=== PATIENT | female | born 1940 | race Caucasian/White ===

== ENCOUNTER 2020-07-22 16:23 | Inpatient (IN) | payer MEDICARE, MEDICAID, SELFPAY ==
[2020-07-22] VITALS (11 sets, daily range): BP systolic 157–176; BP diastolic 68–88; PULSE 78–97; RESP 16–25; TEMP 36–36.4; O2SAT 94–100; BMI 29.4
--- NOTE | ~2020-07-22 | CT_ITS ---
EXAMINATION: CT abdomen pelvis w con EXAM DATE: 07/22/2020 18:30 INDICATION: Abdominal pain. Low hemoglobin. Nausea and diarrhea. Airspace disease. TECHNIQUE: Spiral CT of the abdomen and pelvis was performed following intravenous injection of 100 m L Omnipaque 350. Axial, coronal and sagittal images were reviewed. The dose-length product (DLP) fo r this examination was 470.39 mGy-cm. The exposure was tailored according to patient size (auto mA e xposure control), and iterative reconstruction (ASIR) was used as additional dose reduction technique . There is no prior study for comparison. FINDINGS: Lung bases demonstrate linear bibasilar atelectasis and scattered small nodules, some appea r to be in tree-in-bud pattern. Largest isolated pleural-based nodule measures 6 mm. This does raise possibility of pulmonary metastatic disease. Scattered liver cysts, largest in the left liver lobe m easuring 4.6 cm. Gallbladder is unremarkable. No biliary obstruction. Spleen, adrenal glands, pancr eas are unremarkable. Portal and splenic veins are patent. Kidneys enhance symmetrically. There is no hydronephrosis. There are 2 punctate left calyceal stones. The uterus is not identified and has likely been surgical ly resected. Left ovarian cystic lesion measuring 2.3 x 4.2 cm, could be a cystic ovarian neoplasm bu t would most likely be benign histology. The bladder is unremarkable. There is no retroperitoneal o r pelvic lymphadenopathy. There is moderate scattered arteriosclerotic disease. Focal region of circumferential gastric antral wall thickening, could be peptic ulcer disease or canc er versus phasic peristalsis. There is rectosigmoid anastomosis site intact. The appendix is not spec ifically identified. There is mild colonic diverticulosis. There is no adjacent inflammatory change to suggest diverticulitis. There is moderate-sized gastroesophageal hiatal hernia. There is expecte d amount of colonic stool. No free intraperitoneal gas. Heart normal in size. There are small umbilical and moderate-sized left periumbilical fat-containing hernias. Another small er supraumbilical fat-containing hernia just left of midline. There may be an anterior abdominal wall mesh from prior hernia repair. Chronic burst fractures of T11 and T12 with up to 5 mm retropulsion at the T12 level. There are no osteoblastic or osteolytic lesions identified. IMPRESSION: 1. Gastric antral wall circumferential thickening, collapse suspicious for either peptic ulcer disea se or gastric cancer. Potentially could also be phasic peristalsis. Considering symptoms above, consi lexi EGD. 2. Some scattered basilar pulmonary nodules, postinfectious versus metastatic disease. Linear basila r atelectasis. A follow-up chest CT should be considered. 3. Small left ovarian cystic lesion could be cystic ovarian neoplasm but would most likely be benign histology. 4. Punctate left nephrolithiasis. 5. Abdominal wall fat-containing hernias. 6. Moderate gastroesophageal hiatal hernia. 7. Scattered colonic diverticulosis. 8. Surgical changes. 9. Chronic T11 and T12 burst fractures. Reviewed, dictated and finalized at location A. ALL INSTALLER IMPRESSION: 1. Gastric antral wall circumferential thickening, collapse suspicious for eit her peptic ulcer disease or gastric cancer. Potentially could also be phasic pe ristalsis. Considering symptoms above, consider EGD. 2. Some scattered basilar pulmonary nodules, postinfectious versus metastatic disease. Linear basilar atelectasis. A follow-up chest CT should be considered. 3. Small left ovarian cystic lesion could be cystic ovarian neoplasm but would most likely be benign histology. 4. Punctate left nephrolithiasis. 5. Abdominal wall fat-conta
--- NOTE | ~2020-07-22 | XR_ITS ---
EXAMINATION: XR chest 1V portable EXAM DATE: 07/22/2020 17:53 INDICATION: Low hemoglobin levels, dark diarrhea stools. Nausea. TECHNIQUE: Portable AP frontal chest x-ray was obtained. Comparison is made to prior examination from 08/23/2015. FINDINGS: Linear right mid lung zone atelectasis. Suspect patchy bilateral ill-defined acute airspace disease, could be infection and/or edema. The cardiomediastinal silhouette is prominent but magnifie d on this AP technique. There is no pneumothorax suspected. There are no pleural effusions. There are mild bony degenerative changes. There is aortic arteriosclerosis. IMPRESSION: 1. Development of scattered bilateral ill-defined opacities, could be edema and/or infection. 2. Development of linear right midlung zone atelectasis. Reviewed, dictated and finalized at location A. [employer] IMPRESSION: 1. Development of scattered bilateral ill-defined opacities, could be edema an d/or infection. 2. Development of linear right midlung zone atelectasis.
--- NOTE | ~2020-07-22 | XR_ITS ---
EXAMINATION: XR chest 2V DATE: 07/25/2020 10:30 INDICATION: Pneumonia. TECHNIQUE: Frontal and lateral views of the chest were obtained. COMPARISON: Chest single view 07/22/2020, CT abdomen and pelvis 07/22/2020 FINDINGS: There are airspace opacities in the mid and lower lung zones. No pleural effusion or pneumo thorax. The heart size is normal. There is a moderate-sized hiatal hernia. IMPRESSION: 1. Airspace opacities in the mid and lower lung zones with interval improvement, consistent with pneu monia. 2. Moderate-sized hiatal hernia. Reviewed, dictated and finalized at location A. MANAGER IMPRESSION: 1. Airspace opacities in the mid and lower lung zones with interval improvement , consistent with pneumonia. 2. Moderate-sized hiatal hernia.
--- NOTE | 2020-07-22 16:33 | ECG_ITS ---
Measurements Intervals [place] Rate: 76 P: 14 AK: 159 QRS: -6 QRSD: 73 T: -7 QT: 349 QTc: 394 Interpretive Statements SINUS RHYTHM INFERIOR INFARCT, AGE INDETERMINATE BASELINE WANDER- I, II, AVR, AVL, AVF ABNORMAL ECG Electronically Signed On 07-23-2020 7:24:39 SALES MANAGEMENT TRAINEE by Mendoza Johnson D.O.
[2020-07-22 16:47] LABS: Basophils Percent Auto 0.4 % (0.2-1.2); Eosinophils Absolute Auto 0.1 K/mm3 (0-0.3); Eosinophils Percent Auto 2.1 % (0-4.4); Hematocrit 29.7 % (37.0-47.0); Hemoglobin 8.2 g/dL (12.0-15.0); Immature Granulocyte Absolute 0.01 K/mm3 (0.00-0.031); Immature Granulocyte Percent A 0.2 % (0-0.5); Lymphocytes Absolute Auto 1.54 K/mm3 (0.9-3.2); Lymphocytes Percent Auto 32.2 % (18.3-44.2); Mean Corpuscular HGB Conc 27.6 g/dl (32-36); Mean Corpuscular Hemoglobin 22.2 pg (26-34); Mean Corpuscular Volume 80.3 fl (80-100); Mean Platelet Volume 8.8 fl (7.4-10.4); Monocytes Absolute Auto 0.5 K/mm3 (0.1-0.6); Neutrophils Absolute Auto 2.6 K/mm3 (1.3-6.7); Neutrophils Percent Auto 55.1 % (45.5-73.1); Platelet Count Result 307 k/mm3 (150-375); Red Cell Distribution Width 15.7 % (11.5-14.5); White Blood Count 4.8 K/mm3 (4.5-10.0)
[2020-07-22 16:53] LABS: Platelet Estimate Adequate (Adequate); Stomatocytes 1+ (NORMAL)
[2020-07-22 16:54] LABS: Hypochromasia 2+ (NORMAL); Ovalocytes 1+ (NORMAL)
[2020-07-22] MEDS: PANTOPRAZOLE SODIUM IV 40 MG VIAL IV PUSH (16:54)
[2020-07-22] MEDS: SODIUM CHLORIDE 0.9% IV 1,000 ML 999 ML IV CONT (16:54)
[2020-07-22 16:56] LABS: INR 0.9; Prothrombin Time 12.3 Seconds (11.1-14.7)
[2020-07-22 16:57] LABS: Partial Thromboplastin Time 28.1 SECONDS (22.3-36.8)
[2020-07-22 17:05] LABS: Alanine Aminotransferase 17 U/L (4-35); Albumin Level 3.9 g/dL (3.5-5.1); Alkaline Phosphatase 95 U/L (38-126); Aspartate Amino Transferase 22 U/L (14-36); Bilirubin,Total 0.2 mg/dL (0.2-1.3); Blood Urea Nitrogen 11 mg/dL (7-17); Calcium 8.9 mg/dL (8.4-10.2); Carbon Dioxide > 40 mmol/L (22-30); Chloride 92 mmol/L (98-107); Estimated CRCL calculation 80 ml/min; Estimated Glomerular Filt Rate > 60; Glucose 145 mg/dL (65-105); Potassium 3.9 mmol/L (3.4-5.0); Sodium 140 mmol/L (137-145)
[2020-07-22 17:07] LABS: Lactic Acid Reflex 1.5 mmol/L (0.7-2.1)
[2020-07-22 17:28] LABS: Base Excess ABG 11.3 mEq/l (+/-2.0); Carboxyhemoglobin 0.4 % THb (0-2.0); Fractional Inspired Oxygen 36 %; HCO3 ABG 38.7 mEq/l (22.0-26.0); Methemoglobin ABG 0.1 %THb (0-1.5); Oxygen Content ABG 11.8 %vol (16.0-22.0); Oxyhemoglobin 97.9 % THb (90.0-100.0); PO2 ABG 172.7 mmHg (80.0-100.0); Reduced Hemoglobin 1.6 %THb (0-5.0); Total Hemoglobin 8.3 g/dL (12.0-18.0); pH ABG 7.343 (7.350-7.450)
[2020-07-22 17:28] LABS: CRP 1.9 mg/dL (<1.0)
[2020-07-22 17:29] LABS: PCO2 ABG 72.9 mmHg (35.0-45.0)
[2020-07-22 17:30] LABS: Device NASAL CANNULA; Modified Allen's Test Pass; Site Drawn LEFT RADIAL
--- NOTE | 2020-07-22 18:02 | ED.GENADULT ---
HPI - General Adult General Chief complaint: GI Bleed Stated complaint: dark stools, nausea Time Seen by Provider: 07/22/20 16:32 Source: patient Mode of arrival: ambulatory Limitations: no limitations History of Present Illness HPI narrative: Patient is a 79-year-old female who presents to emergency department for evaluation of abdominal discomfort and dark stools over the course of the last several days patient notes aching pain that is periumbilical in nature worse with activity movement patient denies anticoagulant use patient also notes that she recently was told she has pneumonia notes that she had a negative Covid test in June. Patient is followed by pulmonology primary care. Patient notes she is currently on amoxicillin for her pneumonia Related Data Allergies Allergy/AdvReac Type Severity Reaction Status Date / Time duloxetine Allergy Intermediate Cough Verified 07/22/20 16:53 quinapril AdvReac Unknown UNKNOWN Verified 07/22/20 16:53 Review of Systems Review of Systems: All systems reviewed & are unremarkable except as noted in HPI and below PMFSH Past Medical History Medical History (Updated 07/22/20 @ 19:32 by Jose F Jackson PA-C) COPD (chronic obstructive pulmonary disease) Gastroesophageal reflux disease Obesity Surgical History Surgical History (Updated 07/22/20 @ 18:06 by Jose F Jackson PA-C) Hx of colonoscopy Social History Social History (Updated 07/22/20 @ 18:06 by Jose F Jackson PA-C) Smoking status: Former smoker Alcohol intake: never Substance use: unknown Exam Narrative: Exam Narrative: GENERAL: Ill-appearing, obese, and in no acute distress. HEAD: Normocephalic, atraumatic. EYES: PERRLA and EOMI. ENT: Nares clear, no rhinorrhea or epistaxis. Mucous membranes moist. CHEST: Clear to auscultation. No respiratory distress. No wheezes rales or rhonchi HEART: Regular rate and rhythm. No murmur heard. Normal peripheral pulses. ABDOMEN: Soft, periumbilical tenderness,distended, melanotic appearing stool guaiac negative EXTREMITIES: Normal range of motion. No edema. SKIN: Warm, dry, no rash. NEURO: No focal deficits. Alert and oriented x3. Cranial nerves II through XII grossly intact PSYCH: Normal mood and affect. Course Course Emergency Course: Patient presented with concern for peptic ulcer will be placed in hospital for further evaluation of this concern hemodynamically stable patient will be evaluated by gastroenterology for consideration of upper endoscopic he will be kept n.p.o.. Patient had guaiac negative stool but could still be gastric ulcer is seen on CAT scan imaging patient also was found to be hypercarbic will be given a short trial of BiPAP and will also be tested for Covid given the chest x-ray findings even though she notes she has had these findings for some time with a negative Covid test Consultations Consultation #1: Discussed case with Dr. Cordero marine superintendent with plans for upper endoscopy Discussed case with hospitalist Dr. Baumann who is agreed to accept the patient and would like to continue her oral antibiotic for her pneumonia Date: 07/22/20 Time: 19:24 Vital Signs Vital signs: Vital Signs Temperature 97.2 F L 07/22/20 16:33 Pulse Rate 94 07/22/20 16:33 Respiratory Rate 18 07/22/20 16:33 Blood Pressure 170/88 H 07/22/20 16:33 Pulse Oximetry 100 07/22/20 16:33 Temperature 97.2 F L 07/22/20 16:33 Pulse Rate 85 07/22/20 18:47 Respiratory Rate 23 H 07/22/20 18:47 Blood Pressure 170/88 H 07/22/20 16:33 Pulse Oximetry 98 07/22/20 18:47 Medical Decision Making [facility] Narrative Medical decision making narrative: Patient in the room hemodynamically stable resting comfortably on BiPAP at this time will be placed in hospital for likely upper endoscopy in the morning patient will be tested for Covid patient is afebrile nontoxic-appearing no distress at this time is aware of the findings and agrees to stay in hospit
[2020-07-22 18:45] LABS: NT Pro B Type Natriuretic Pept 354 PG/ML (5-100)
--- NOTE | 2020-07-22 19:40 | PC.NURSE ---
with any updates, notify efrain. [phone]
--- NOTE | 2020-07-22 19:44 | PM.IMHP ---
H&P: HPI History of Present Illness Date/Time: 07/22/20 19:44 Chief Complaint: Low H/H with black stools. Narrative: This is a pleasant 79-year-old female with known COPD, GERD, and chronic respiratory failure normally on 4 L of oxygen at home who was sent to the emergency room for evaluation by her special events planner after she was found to have a low H&H, dark stools for the past 5 days, and pneumonia on her chest x-ray. The patient reports that she has been on Augmentin for pneumonia although over the past few days she has had a productive cough of grayish sputum. She denies any worsening shortness breath. She also denies any recent fevers, chills, nausea, vomiting, dizziness, lightheadedness, syncope, chest pain, dysuria, hematuria, lower extremity swelling, or lower extremity pain. She does however report mild epigastric discomfort as well as dark black stools. She denies any bright red rectal bleeding. She is normally on aspirin and is not on any anticoagulants. She has a history of a previous GI bleed in the distant past which was attributed to peptic ulcer disease. She has also had endoscopy performed many years ago. she was tested for COVID-19 approximately 2 weeks ago which was negative. The patient was evaluated in the ER tonight and was found to be hypercapnic and almost compensated on her ABG. She was initiated on BiPAP. The patient was also swabbed for COVID-19 in the ER tonight. Chest x-ray demonstrated scattered bilateral ill-defined opacities. CT abdomen pelvis revealed gastric antral wall circumferential thickening, collapse suspicious for either peptic ulcer disease or gastric cancer. ER provider has consulted client services assistant. Review of Systems Review of Systems: All systems reviewed & are unremarkable except as noted in HPI and below PMFSH Past Medical History Medical History (Updated 07/23/20 @ 06:16 by Altaf Baumann MD) COPD (chronic obstructive pulmonary disease) Gastroesophageal reflux disease Obesity Surgical History Surgical History (Updated 07/22/20 @ 19:49 by Altaf Baumann MD) H/O: hysterectomy Hx of colonoscopy Social History Social History Smoking packs per day: 10 Smoking cigarettes per day: 200.0 Years smoked: 46 Smoking pack-years: 460.00 Smoking status: Former smoker Alcohol intake: never Substance use: never Spiritual care concerns: No Comments family Medical history is reviewed and noncontributory. Meds Home Medications and Allergies Home Medications Medication Instructions Recorded Confirmed Type albuterol sulfate 2 puff INHALATION PRN PRN 07/22/20 07/23/20 History amitriptyline 25 mg PO HS 07/22/20 07/23/20 History amoxicillin-pot clavulanate 1 tablet PO Q12H 07/22/20 07/23/20 History azithromycin 250 mg PO DAILY 07/22/20 07/23/20 History diclofenac sodium 75 mg PO BID 07/22/20 07/23/20 History metoprolol succinate 100 mg PO DAILY 07/22/20 07/23/20 History montelukast 10 mg PO DAILY 07/22/20 07/23/20 History omeprazole 40 mg PO DAILY 07/22/20 07/23/20 History oxycodone-acetaminophen 1 tablet PO Q12H 07/22/20 07/23/20 History tiotropium bromide [Spiriva 2 puff INHALATION DAILY 07/22/20 07/23/20 History Respimat] aspirin 81 mg PO DAILY 07/23/20 07/23/20 History clonazepam 1 mg PO HS 07/23/20 07/23/20 History fluticasone propion-salmeterol 1 inh INHALATION DAILY 07/23/20 07/23/20 History [Advair Diskus] Allergies Allergy/AdvReac Type Severity Reaction Status Date / Time duloxetine Allergy Intermediate Cough Verified 07/22/20 16:53 quinapril AdvReac Unknown UNKNOWN Verified 07/22/20 16:53 Vital Signs Vital Signs - 24 hr 07/22/20 16:33 07/22/20 18:47 Temperature 36.2 C L Pulse Rate 94 85 Respiratory Rate 18 23 H Blood Pressure 170/88 H Pulse Oximetry 100 98 Exam Const: General: cooperative, alert, awake, tired appearing, uncomfortable and other ( Curr
--- NOTE | 2020-07-22 19:55 | PC.NURSE ---
Patient has removed her BiPap and is no on oxygen at 4 liters by nasal cannula
[2020-07-22] MEDS: methylPREDNISolone SOD SUCC 125 MG VIAL 80 MG IV PUSH (20:08)
[2020-07-22] MEDS: ALBUTEROL SULFATE (*SP) INHALER 1 PUFF (20:17)
[2020-07-22 20:29] LABS: Hematocrit 27.8 % (37.0-47.0); Hemoglobin 7.7 g/dL (12.0-15.0)
[2020-07-22 21:08] LABS: Alveolar/Arterial O2 Gradient 10.7 mmHg; Base Excess ABG 12.1 mEq/l (+/-2.0); Fractional Inspired Oxygen 36 %; HCO3 ABG 40.5 mEq/l (22.0-26.0); Oxygen Content ABG 12.8 %vol (16.0-22.0); Oxygen Saturation ABG 98.6 % (95.0-100.0); Oxyhemoglobin 97.4 % THb (90.0-100.0); PO2 ABG 150.3 mmHg (80.0-100.0); PO2 FiO2 Ratio Arterial Blood 4.18 %; Total Hemoglobin 9.1 g/dL (12.0-18.0); pH ABG 7.309 (7.350-7.450)
[2020-07-22 21:09] LABS: Modified Allen's Test Pass; PCO2 ABG 82.5 mmHg (35.0-45.0); Site Drawn RIGHT RADIAL
[2020-07-23] VITALS (14 sets, daily range): BP systolic 128–166; BP diastolic 60–93; PULSE 55–114; RESP 18–20; TEMP 36–37.3; O2SAT 94–100
[2020-07-23] MEDS: SODIUM CHLORIDE 0.9% IV 1,000 ML 75 ML IV CONT ×2 (01:00→15:53)
[2020-07-23] MEDS: ALBUTEROL SULFATE (*SP) AEROSOL 1 PUFF 2 PUFF INHALATION ×4 (01:14→20:45)
[2020-07-23 01:52] LABS: Device NASAL CANNULA
[2020-07-23 02:07] LABS: Hematocrit 30.4 % (37.0-47.0); Hemoglobin 8.7 g/dL (12.0-15.0)
[2020-07-23 09:21] LABS: Anion Gap 8 mmol/L (8-16); Blood Urea Nitrogen 7 mg/dL (7-17); Calcium 8.9 mg/dL (8.4-10.2); Carbon Dioxide 32 mmol/L (22-30); Chloride 95 mmol/L (98-107); Estimated CRCL calculation 104 ml/min; Estimated Glomerular Filt Rate > 60; Glucose 123 mg/dL (65-105); Potassium 3.8 mmol/L (3.4-5.0); Sodium 135 mmol/L (137-145)
[2020-07-23 09:47] LABS: Basophils Percent Auto 0.2 % (0.2-1.2); Hematocrit 32.3 % (37.0-47.0); Hemoglobin 9.1 g/dL (12.0-15.0); Immature Granulocyte Absolute 0.02 K/mm3 (0.00-0.031); Immature Granulocyte Percent A 0.3 % (0-0.5); Lymphocytes Absolute Auto 1.25 K/mm3 (0.9-3.2); Lymphocytes Percent Auto 19.6 % (18.3-44.2); Mean Corpuscular HGB Conc 28.2 g/dl (32-36); Mean Corpuscular Hemoglobin 22.4 pg (26-34); Mean Corpuscular Volume 79.6 fl (80-100); Mean Platelet Volume 8.7 fl (7.4-10.4); Monocytes Absolute Auto 0.2 K/mm3 (0.1-0.6); Monocytes Percent Auto 3.8 % (2.6-8.5); Neutrophils Absolute Auto 4.9 K/mm3 (1.3-6.7); Neutrophils Percent Auto 76.1 % (45.5-73.1); Platelet Count Result 362 k/mm3 (150-375); Red Blood Count 4.06 M/mm3 (4.2-5.4); Red Cell Distribution Width 15.8 % (11.5-14.5); White Blood Count 6.4 K/mm3 (4.5-10.0)
[2020-07-23 10:26] LABS: Hypochromasia 1+ (NORMAL); Microcytosis 1+ (NORMAL); Platelet Estimate Adequate (Adequate)
--- NOTE | 2020-07-23 11:49 | WPDGICN ---
Assessment and Plan Assessment and plan (1) Upper GI bleed: Code(s): K92.2 - Gastrointestinal hemorrhage, unspecified Status: Acute Assessment and Plan: will proceed with egd, assess if ulcer, gastritis or even malignancy (reviewed ct scan) continue to monitor h/h and already on iv protonix (2) Melena: Code(s): K92.1 - Melena Status: Acute Assessment and Plan: supportive care, iv protonix and egd tomorrow discontinue nsaid's (3) Abnormal CT scan, stomach: Code(s): R93.3 - Abnormal findings on diagnostic imaging of other parts of digestive tract Status: Acute (4) Acute and chronic respiratory failure with hypercapnia: Code(s): J96.22 - Acute and chronic respiratory failure with hypercapnia Status: Acute Assessment and Plan: by medical team (5) Pneumonia: Qualifiers: Laterality: bilateral Lung location: unspecified part of lung Pneumonia type: due to unspecified organism Qualified Code(s): J18.9 - Pneumonia, unspecified organism Code(s): J18.9 - Pneumonia, unspecified organism Status: Acute Assessment and Plan: on treatment pending repeat covid test, on isolation for now (6) COPD (chronic obstructive pulmonary disease): Qualifiers: COPD type: unspecified COPD Qualified Code(s): J44.9 - Chronic obstructive pulmonary disease, unspecified Code(s): J44.9 - Chronic obstructive pulmonary disease, unspecified Status: Chronic (7) Gastroesophageal reflux disease: Qualifiers: Esophagitis presence: esophagitis presence not specified Qualified Code(s): K21.9 - Gastro-esophageal reflux disease without esophagitis Code(s): K21.9 - Gastro-esophageal reflux disease without esophagitis Status: Chronic (8) Obesity: Code(s): E66.9 - Obesity, unspecified Status: Inactive GI Consult Note Consult date/time: 07/23/20 11:49 Reason for consult: gib, melena HPI: Phoebe Hillman is a 79 year old female with history COPD (former smoker but many years ago), GERD on omeprazole, and chronic respiratory failure using oxygen at home. Few days ago she was diagnosed with pneumonia for which she has been on augmentin, also had follow up with her doctor recently who noted low H&H and abnormal chest x-ray (apparently done at [place]), COVID-19 about 2 weeks ago negative. Patient has been having upper abdominal discomfort with dark stools last 5-6 days, using omeprazole for years (home med also noted diclofenac bid) and remembers having EGD but probably more than 20 years ago, she also had several colonoscopies every 5 years but last one over 7 years ago. She came to ER after her doctor advised to come in because anemia, chest x-ray demonstrated scattered bilateral ill-defined opacities. CT abdomen pelvis revealed gastric antral wall circumferential thickening, collapse suspicious for either peptic ulcer disease or gastric cancer and started on iv protonix. Hb 7.7-8.2, BUN normal, had elevated CO2 and last night given bipap, now only on oxygen. Review of Systems Constitutional: Constitutional: Reports fatigue Eyes: Eyes: Reports no additional eye complaints ENT: Reports system reviewed and no additional complaints, except as documented Cardiovascular: Cardiovascular: Denies leg edema Respiratory: Respiratory: Reports cough and Reports dyspnea on exertion Gastrointestinal: Gastrointestinal: Reports melena Genitourinary: Genitourinary: Denies hematuria Musculoskeletal: Musculoskeletal: Denies myalgias Integumentary/Breasts: Skin/Breast: Denies skin pain Neurologic: Denies confusion [facility] Past Medical History Medical History (Updated 07/23/20 @ 11:58 by Rom Hernandes MD) Abnormal CT scan, stomach COPD (chronic obstructive pulmonary disease) Gastroesophageal reflux disease Melena Obesity Surgical History Surgical History (Updated 07/22/20 @ 19:49 by Altaf Ellison
--- NOTE | 2020-07-23 12:10 | WPDANESEPP ---
Anes - Eval Pre Procedure Procedure: EGC Date/Time: 07/23/20 12:10 Surgeon: Cookie Preop Diagnosis: Anemia, PUD vs Gastric cancer Pre Op Diagnosis: anemia, rectal bleeding, pneumonia,PUI Patient Data Age: 79 Gender: F Height: 5 ft Weight: 68.4 kg Last Vital Signs Temp 36.0 C L 07/23/20 07:31 Pulse 85 07/23/20 09:31 Resp 18 07/23/20 07:31 BP 153/62 H 07/23/20 07:31 Pulse Ox 100 07/23/20 11:37 Allergies Allergy/AdvReac Type Severity Reaction Status Date / Time duloxetine Allergy Intermediate Cough Verified 07/22/20 16:53 quinapril AdvReac Unknown UNKNOWN Verified 07/22/20 16:53 Home Medications Medication Instructions Recorded Confirmed Type albuterol sulfate 2 puff INHALATION PRN PRN 07/22/20 07/23/20 History amitriptyline 25 mg PO HS 07/22/20 07/23/20 History amoxicillin-pot clavulanate 1 tablet PO Q12H 07/22/20 07/23/20 History azithromycin 250 mg PO DAILY 07/22/20 07/23/20 History diclofenac sodium 75 mg PO BID 07/22/20 07/23/20 History metoprolol succinate 100 mg PO DAILY 07/22/20 07/23/20 History montelukast 10 mg PO DAILY 07/22/20 07/23/20 History omeprazole 40 mg PO DAILY 07/22/20 07/23/20 History oxycodone-acetaminophen 1 tablet PO Q12H 07/22/20 07/23/20 History tiotropium bromide [Spiriva 2 puff INHALATION DAILY 07/22/20 07/23/20 History Respimat] aspirin 81 mg PO DAILY 07/23/20 07/23/20 History clonazepam 1 mg PO HS 07/23/20 07/23/20 History fluticasone propion-salmeterol 1 inh INHALATION DAILY 07/23/20 07/23/20 History [Advair Diskus] Laboratory Tests 07/22/20 07/22/20 07/22/20 16:38 16:38 16:38 WBC 4.8 K/mm3 K/mm3 (4.5-10.0) RBC 3.70 M/mm3 L M/mm3 (4.2-5.4) Hgb 8.2 g/dL L g/dL (12.0-15.0) Hct 29.7 % L % (37.0-47.0) MCV 80.3 fl fl (80-100) MCH 22.2 pg L pg (26-34) MCHC 27.6 g/dl L g/dl (32-36) RDW 15.7 % H % (11.5-14.5) Plt Count 307 k/mm3 k/mm3 (150-375) MPV 8.8 fl fl (7.4-10.4) Immature Gran % (Auto) 0.2 % % (0-0.5) Neut % (Auto) 55.1 % % (45.5-73.1) Lymph % (Auto) 32.2 % % (18.3-44.2) [place] % (Auto) 10.0 % H % (2.6-8.5) Eos % (Auto) 2.1 % % (0-4.4) Baso % (Auto) 0.4 % % (0.2-1.2) Lymph # (Auto) 1.54 K/mm3 K/mm3 (0.9-3.2) [place] # (Auto) 0.5 K/mm3 K/mm3 (0.1-0.6) Eos # (Auto) 0.1 K/mm3 K/mm3 (0-0.3) Baso # (Auto) 0.0 K/mm3 K/mm3 (0.0-0.1) Abs Immat Gran (auto) 0.01 K/mm3 K/mm3 (0.00-0.031) Absolute Neuts (auto) 2.6 K/mm3 K/mm3 (1.3-6.7) Absolute Nucleated RBC 0.0 K/mm3 K/mm3 (0.0-0.012) Nucleated RBC % 0.0 % % (0.0-0.2) Platelet Estimate Adequate (Adequate) Hypochromasia 2+ (NORMAL) Microcytosis Ovalocytes 1+ (NORMAL) Stomatocytes 1+ (NORMAL) PT 12.3 Seconds Seconds (11.1-14.7) INR 0.9 APTT 28.1 SECONDS SECONDS (22.3-36.8) Puncture Site ABG pH ABG pCO2 ABG pO2 ABG PO2/FiO2 Ratio ABG HCO3 ABG O2 Saturation ABG O2 Content ABG Base Excess A-a Gradient Oxyhemoglobin Carboxyhemoglobin Methemoglobin Reduced Hemoglobin Total Hemoglobin O2 Delivery Device O2 Liters/Min FiO2 Sodium 140 mmol/L mmol/L (137-145) Potassium 3.9 mmol/L mmol/L (3.4-5.0) Chloride 92 mmol/L L mmol/L (98-107) Carbon Dioxide > 40 mmol/L H mmol/L (22-30) Anion Gap mmol/L mmol/L (8-16) BUN 11 mg/dL mg/dL (7-17) Creatinine 0.40 mg/dL L mg/dL (0.7-1.0) Estim Creat Clear Calc 80 ml/min ml/min Estimated GFR > 60
[2020-07-23 14:24] LABS: Hematocrit 27.2 % (37.0-47.0); Hemoglobin 7.9 g/dL (12.0-15.0)
--- NOTE | 2020-07-23 16:47 | PM.IMPN ---
Progress Note: A&P Assessment and Plan (1) Acute and chronic respiratory failure with hypercapnia: Code(s): J96.22 - Acute and chronic respiratory failure with hypercapnia Status: Acute Assessment and Plan: The patient has been placed in observation status. Continue BiPAP support and wean off as tolerated. We will check another ABG once the patient reaches the floor. Currently she is almost compensated on her ABG. (2) Pneumonia: Qualifiers: Laterality: bilateral Lung location: unspecified part of lung Pneumonia type: due to unspecified organism Qualified Code(s): J18.9 - Pneumonia, unspecified organism Code(s): J18.9 - Pneumonia, unspecified organism Status: Acute Assessment and Plan: rule out acute pneumonia with chest x-ray demonstrating bilateral opacities as well as worsening productive cough. Will administer IV antibiotics, bronchodilators. check blood and sputum cultures. Check urine pneumococcal antigen. RT assess and treat. Continue oxygen supplementation. Continuous pulse oximetry. (3) Upper GI bleed: Code(s): K92.2 - Gastrointestinal hemorrhage, unspecified Status: Acute Assessment and Plan: May be secondary to known peptic ulcer disease. NPO overnight. Protonix IV drip. Monitor H&H, transfuse p.r.n.. Hold aspirin therapy. Rig Site Engineer has been consulted by ER provider. Appreciate GI input. (4) COPD (chronic obstructive pulmonary disease): Qualifiers: COPD type: unspecified COPD Qualified Code(s): J44.9 - Chronic obstructive pulmonary disease, unspecified Code(s): J44.9 - Chronic obstructive pulmonary disease, unspecified Status: Chronic Assessment and Plan: Continue bronchodilators. Continue oxygen supplementation. (5) Gastroesophageal reflux disease: Qualifiers: Esophagitis presence: esophagitis presence not specified Qualified Code(s): K21.9 - Gastro-esophageal reflux disease without esophagitis Code(s): K21.9 - Gastro-esophageal reflux disease without esophagitis Status: Chronic Assessment and Plan: Continue PPI therapy. (6) Suspected 2019 novel coronavirus infection: Code(s): Z20.828 - Contact with and (suspected) exposure to other viral communicable diseases Status: Acute Assessment and Plan: Patient has been swabbed for COVID-19. Continue supportive care. Continue droplet isolation. COVID-19 results pending. SCDs for DVT prophylaxis secondary to GI bleed. (7) Ovarian cyst: Code(s): N83.209 - Unspecified ovarian cyst, unspecified side Status: Chronic Assessment and Plan: The patient will need to follow up with THERAPEUTIC ASSISTANT for her incidental finding of ovarian cyst on CT abd/pelvis. Additional Plan date of service was July 22, 2020 at approximately 7:00 p.m. Subjective Date/time seen: 07/23/20 16:47 Interval history: 79-year-old female with known COPD, GERD, and chronic respiratory failure normally on 4 L of oxygen at home who was sent to the emergency room for evaluation by her complaint inspector after she was found to have a low H&H, dark stools for the past 5 days, and pneumonia on her chest x-ray. Covid rule out going for EGD at is dropping with black stools, awaiting covid test belly and back hurts Review of Systems Review of Systems: All systems reviewed & are unremarkable except as noted in HPI and below Exam Narrative: Exam Narrative: ON 1liter of nasal cannulae Const: General: cooperative, alert, awake, tired appearing and uncomfortable Nutritional Appearance: obese Orientation/consciousness: patient oriented x3 GI: Inspection: normal to inspection Auscultation: normal bowel sounds Neuro: General: patient oriented x3 Cranial nerves: Yes CN's II-XII intact bilaterally and Yes Equal, round and reactive pupils present Speech: normal speech Motor exam (neuro): 5/5 motor strength present t
[2020-07-23 18:58] LABS: SARS-CoV-2 RNA PCR Negative
[2020-07-23] MEDS: AMITRIPTYLINE HCL 25 MG TABLET PO (20:46)
[2020-07-23] MEDS: clonazePAM (*CRX) 0.5 MG TABLET 1 MG PO (20:51)
[2020-07-23] MEDS: FLUTICASONE/SALMETEROL 230-21 MCG INHALER 1 PUFF 2 PUFF INHALATION (21:09)
[2020-07-24] VITALS (16 sets, daily range): BP systolic 130–182; BP diastolic 51–95; PULSE 75–112; RESP 20–28; TEMP 36.1–36.7; O2SAT 92–100; BMI 29.3
[2020-07-24] MEDS: ALBUTEROL SULFATE (*SP) AEROSOL 1 PUFF 2 PUFF INHALATION ×2 (01:54→20:59)
[2020-07-24 05:56] LABS: Anion Gap 7 mmol/L (8-16); Blood Urea Nitrogen 5 mg/dL (7-17); Carbon Dioxide 35 mmol/L (22-30); Chloride 97 mmol/L (98-107); Estimated CRCL calculation 81 ml/min; Estimated Glomerular Filt Rate > 60; Glucose 129 mg/dL (65-105); Potassium 3.2 mmol/L (3.4-5.0); Sodium 139 mmol/L (137-145)
[2020-07-24] MEDS: SODIUM CHLORIDE 0.9% IV 1,000 ML 75 ML IV CONT (06:17)
[2020-07-24] MEDS: LACTATED RINGERS 1,000 ML 150 ML IV CONT (07:25)
[2020-07-24 07:33] LABS: Hematocrit 27.2 % (37.0-47.0); Hemoglobin 7.9 g/dL (12.0-15.0); Mean Corpuscular Hemoglobin 22.1 pg (26-34); Mean Platelet Volume 9.2 fl (7.4-10.4); Platelet Count Result 322 k/mm3 (150-375); Red Blood Count 3.58 M/mm3 (4.2-5.4); Red Cell Distribution Width 15.9 % (11.5-14.5); White Blood Count 5.5 K/mm3 (4.5-10.0)
--- NOTE | 2020-07-24 07:41 | WPDANESEFPP ---
Anes - Eval Final PreProcedure Day of Procedure 07/24/20 07:41 Patient weight: obese Heart: regular rate and rhythm Lungs: decreased breath sounds Airway: Mallampati scale class II Neurological: alert and oriented Last oral intake: >/= 8 hours ASA classification: IV Emergent: no Anesthetic plan: proceed Anesthesia type and monitoring: general GIVS and standard monitoring Informed Consent: The patient's anesthetic plan and its attendant risks and benefits were discussed with the patient/family/POA. Questions were solicited and answers provided to the satisfaction of the patient/family/POA.
[2020-07-24] MEDS: PANTOPRAZOLE 40 MG TABLET PO (10:08)
[2020-07-24] MEDS: METOPROLOL SUCCINATE EXT REL 100 MG TABCR PO (10:08)
[2020-07-24] MEDS: MONTELUKAST SODIUM 10 MG TABLET PO (10:08)
[2020-07-24] MEDS: POTASSIUM CHLORIDE 20 MEQ PACKET (FOR LIQUID) 40 MEQ PO (10:18)
--- NOTE | 2020-07-24 17:10 | PM.IMPN ---
Progress Note: A&P Assessment and Plan (1) Acute and chronic respiratory failure with hypercapnia: Code(s): J96.22 - Acute and chronic respiratory failure with hypercapnia Status: Acute Assessment and Plan: The patient has been placed in observation status. Continue BiPAP support and wean off as tolerated. We will check another ABG once the patient reaches the floor. Currently she is almost compensated on her ABG. 79-year-old female with known COPD, GERD, and chronic respiratory failure normally on 4 L of oxygen at home who was sent to the emergency room for evaluation by her data analytics analyst after she was found to have a low H&H, dark stools for the past 5 days, and pneumonia on her chest x-ray. Covid rule out going for EGD at [facility] is dropping with black stools, awaiting covid test Today patient was taken to GI lab and had a EGD which did not show any significant source of anemia and recommended continue PPI, also upon arrival in emergency department patient was found to hypercapnic respiratory failure patient was placed on BiPAP and this did improve her symptoms and patient is being treated with updraft, COVID test is negative, patient is feeling much better not as short of breath and denies any abdominal pain nausea or vomiting or bleeding. (2) Pneumonia: Qualifiers: Laterality: bilateral Lung location: unspecified part of lung Pneumonia type: due to unspecified organism Qualified Code(s): J18.9 - Pneumonia, unspecified organism Code(s): J18.9 - Pneumonia, unspecified organism Status: Acute Assessment and Plan: rule out acute pneumonia with chest x-ray demonstrating bilateral opacities as well as worsening productive cough. Will administer IV antibiotics, bronchodilators. check blood and sputum cultures. Check urine pneumococcal antigen. RT assess and treat. Continue oxygen supplementation. Continuous pulse oximetry. (3) Upper GI bleed: Code(s): K92.2 - Gastrointestinal hemorrhage, unspecified Status: Acute Assessment and Plan: May be secondary to known peptic ulcer disease. NPO overnight. Protonix IV drip. Monitor H&H, transfuse p.r.n.. Hold aspirin therapy. Kitchen And Counter Worker has been consulted by ER provider. Appreciate GI input. (4) COPD (chronic obstructive pulmonary disease): Qualifiers: COPD type: unspecified COPD Qualified Code(s): J44.9 - Chronic obstructive pulmonary disease, unspecified Code(s): J44.9 - Chronic obstructive pulmonary disease, unspecified Status: Chronic Assessment and Plan: Continue bronchodilators. Continue oxygen supplementation. (5) Gastroesophageal reflux disease: Qualifiers: Esophagitis presence: esophagitis presence not specified Qualified Code(s): K21.9 - Gastro-esophageal reflux disease without esophagitis Code(s): K21.9 - Gastro-esophageal reflux disease without esophagitis Status: Chronic Assessment and Plan: Continue PPI therapy. (6) Suspected 2019 novel coronavirus infection: Code(s): Z20.828 - Contact with and (suspected) exposure to other viral communicable diseases Status: Acute Assessment and Plan: Patient has been swabbed for COVID-19. Continue supportive care. Continue droplet isolation. COVID-19 results pending. SCDs for DVT prophylaxis secondary to GI bleed. (7) Ovarian cyst: Code(s): N83.209 - Unspecified ovarian cyst, unspecified side Status: Chronic Assessment and Plan: The patient will need to follow up with SOFTWARE INTEGRATION DEVELOPER for her incidental finding of ovarian cyst on CT abd/pelvis. Subjective Date/time seen: 07/24/20 17:10 Interval history: 79-year-old female with known COPD, GERD, and chronic respiratory failure normally on 4 L of oxygen at home who was sent to the emergency room for evaluation by her data analytics analyst after she was found to have a low H&H, dark stools for the past 5
--- NOTE | 2020-07-24 18:30 | PC.NURSE ---
Patient received from IMU. Patient oriented to the room.
[2020-07-24] MEDS: FLUTICASONE/SALMETEROL 230-21 MCG INHALER 1 PUFF 2 PUFF INHALATION (21:05)
[2020-07-24] MEDS: AMITRIPTYLINE HCL 25 MG TABLET PO (21:09)
[2020-07-24] MEDS: clonazePAM (*CRX) 0.5 MG TABLET 1 MG PO (21:10)
[2020-07-25] MEDS: ALBUTEROL SULFATE (*SP) AEROSOL 1 PUFF 2 PUFF INHALATION ×2 (02:08→09:30)
[2020-07-25 06:19] VITALS: BP 162/78; PULSE 94; RESP 16; TEMP 36.5; O2SAT 100
[2020-07-25 08:23] LABS: Hematocrit 28.4 % (37.0-47.0); Hemoglobin 8.2 g/dL (12.0-15.0); Mean Corpuscular HGB Conc 28.9 g/dl (32-36); Mean Corpuscular Hemoglobin 22.3 pg (26-34); Mean Corpuscular Volume 77.4 fl (80-100); Mean Platelet Volume 8.6 fl (7.4-10.4); Platelet Count Result 273 k/mm3 (150-375); Red Blood Count 3.67 M/mm3 (4.2-5.4); Red Cell Distribution Width 16.1 % (11.5-14.5); White Blood Count 5.5 K/mm3 (4.5-10.0)
[2020-07-25 08:37] LABS: Blood Urea Nitrogen 8 mg/dL (7-17); Calcium 8.8 mg/dL (8.4-10.2); Carbon Dioxide > 40 mmol/L (22-30); Chloride 97 mmol/L (98-107); Estimated CRCL calculation 67 ml/min; Estimated Glomerular Filt Rate > 60; Glucose 104 mg/dL (65-105); Sodium 139 mmol/L (137-145)
[2020-07-25] MEDS: FLUTICASONE/SALMETEROL 230-21 MCG INHALER 1 PUFF 2 PUFF INHALATION (09:45)
[2020-07-25] MEDS: POTASSIUM CHLORIDE 20 MEQ PACKET (FOR LIQUID) 40 MEQ PO (09:45)
[2020-07-25] MEDS: PANTOPRAZOLE 40 MG TABLET PO (09:46)
[2020-07-25 09:47] VITALS: PULSE 94
[2020-07-25] MEDS: METOPROLOL SUCCINATE EXT REL 100 MG TABCR PO (09:47)
[2020-07-25] MEDS: MONTELUKAST SODIUM 10 MG TABLET PO (09:47)
--- NOTE | 2020-07-25 13:09 | WPDANESPN ---
Anes - Prog Note Post-Op Date/Time: 07/25/20 13:09 Cardiovascular status: normal Respiratory status: normal Airway patency: baseline Mental status: baseline Post-Op hydration status: normal Vital Signs: Last Vital Signs Temp 36.5 C 07/25/20 06:19 Pulse 94 07/25/20 09:47 Resp 16 07/25/20 06:19 BP 162/78 H 07/25/20 06:19 Pulse Ox 100 07/25/20 06:19 Pain Score (VAS): 0/10. Patient resting in bed at time of assessment, appears comfortable. No further issues or concerns from RN at time of assessment. I/O: Intake & Output 07/24/20 07/25/20 07/25/20 23:59 07:59 15:59 Intake Total 850 300 Output Total 300 Balance 550 300 Laboratory Tests 07/25/20 08:18 07/25/20 08:18 07/25/20 07/25/20 08:18 08:18 WBC 5.5 RBC 3.67 L Hgb 8.2 L Hct 28.4 L MCV 77.4 L MCH 22.3 L MCHC 28.9 L RDW 16.1 H Plt Count 273 MPV 8.6 Sodium 139 Potassium 3.0 L Chloride 97 L Carbon Dioxide > 40 H Anion Gap BUN 8 Creatinine 0.50 L Estim Creat Clear Calc 67 Estimated GFR > 60 Glucose 104 Calcium 8.8 Magnesium 2.0 Microbiology 07/23/20 10:50 Sputum Sputum Culture - Preliminary Post-procedural complaints: none Patient Feedback: Patient satisfied with anesthetic care.
[2020-07-25 14:00] VITALS: BP 139/71; PULSE 98; RESP 17; TEMP 36.3; O2SAT 98
--- NOTE | 2020-07-25 15:09 | PM.DS ---
DS: Admitting Diagnosis Admitting Diagnosis Admitting Diagnosis: Anemia, black stool DS: Discharge Diagnosis Discharge Diagnosis (1) Acute and chronic respiratory failure with hypercapnia: Code(s): J96.22 - Acute and chronic respiratory failure with hypercapnia Status: Acute Assessment and Plan: The patient has been placed in observation status. Continue BiPAP support and wean off as tolerated. We will check another ABG once the patient reaches the floor. Currently she is almost compensated on her ABG. 79-year-old female with known COPD, GERD, and chronic respiratory failure normally on 4 L of oxygen at home who was sent to the emergency room for evaluation by her hat band attacher after she was found to have a low H&H, dark stools for the past 5 days, and pneumonia on her chest x-ray. Covid rule out going for EGD at [facility] is dropping with black stools, awaiting covid test Today patient was taken to GI lab and had a EGD which did not show any significant source of anemia and recommended continue PPI, also upon arrival in emergency department patient was found to hypercapnic respiratory failure patient was placed on BiPAP and this did improve her symptoms and patient is being treated with updraft, COVID test is negative, patient is feeling much better not as short of breath and denies any abdominal pain nausea or vomiting or bleeding. (2) Pneumonia: Qualifiers: Laterality: bilateral Lung location: unspecified part of lung Pneumonia type: due to unspecified organism Qualified Code(s): J18.9 - Pneumonia, unspecified organism Code(s): J18.9 - Pneumonia, unspecified organism Status: Acute Assessment and Plan: rule out acute pneumonia with chest x-ray demonstrating bilateral opacities as well as worsening productive cough. Will administer IV antibiotics, bronchodilators. check blood and sputum cultures. Check urine pneumococcal antigen. RT assess and treat. Continue oxygen supplementation. Continuous pulse oximetry. (3) Upper GI bleed: Code(s): K92.2 - Gastrointestinal hemorrhage, unspecified Status: Acute Assessment and Plan: May be secondary to known peptic ulcer disease. NPO overnight. Protonix IV drip. Monitor H&H, transfuse p.r.n.. Hold aspirin therapy. Banking Teacher has been consulted by ER provider. Appreciate GI input. (4) COPD (chronic obstructive pulmonary disease): Qualifiers: COPD type: unspecified COPD Qualified Code(s): J44.9 - Chronic obstructive pulmonary disease, unspecified Code(s): J44.9 - Chronic obstructive pulmonary disease, unspecified Status: Chronic Assessment and Plan: Continue bronchodilators. Continue oxygen supplementation. (5) Gastroesophageal reflux disease: Qualifiers: Esophagitis presence: esophagitis presence not specified Qualified Code(s): K21.9 - Gastro-esophageal reflux disease without esophagitis Code(s): K21.9 - Gastro-esophageal reflux disease without esophagitis Status: Chronic Assessment and Plan: Continue PPI therapy. (6) Suspected 2019 novel coronavirus infection: Code(s): Z20.828 - Contact with and (suspected) exposure to other viral communicable diseases Status: Acute Assessment and Plan: Patient has been swabbed for COVID-19. Continue supportive care. Continue droplet isolation. COVID-19 results pending. SCDs for DVT prophylaxis secondary to GI bleed. (7) Ovarian cyst: Code(s): N83.209 - Unspecified ovarian cyst, unspecified side Status: Chronic Assessment and Plan: The patient will need to follow up with UNDERGROUND MINING SECTION FOREMAN for her incidental finding of ovarian cyst on CT abd/pelvis. DS: Summary Hospital Course Reason for hospitalization: Chief Complaint: Low H/H with black stools. Narrative: This is a pleasant 79-year-old female with known COPD, GERD, and chronic respiratory failure normally on
[2020-07-25] MEDS: oxyCODONE/ACETAMINOPHEN (*CRX) 5-325 MG TABLET 1 TABLET PO (15:14)
[2020-07-25 16:18] LABS: Pneumococcal Antigen Urine Not Detected (Not Detected)
== END 2020-07-25 16:30 | disposition home or self-care (01) | DRG 377 ==
LOC: ANHED 19:33 → ANHIMU 20:13 → ANH2MED 07-25 09:55 → ANHIMU 07-27 17:17
PROVIDERS: Emergency Medicine Emergency Medical Services; Family Medicine; Internal Medicine Gastroenterology; Admitting Provider Family Medicine; Emergency Provider Family Medicine; PCP Internal Medicine; Visit Provider Family Medicine
PROC: 0DJ08ZZ Inspection of Upper Intestinal Tract, Via Natural or Artificial Opening Endoscopic (ICD-10-PCS; CPT 43235; principal; 2020-07-24 07:30)
DX: K92.1 Melena (principal); J96.22 Acute and chronic respiratory failure with hypercapnia; J18.9 Pneumonia, unspecified organism; J44.0 Chronic obstructive pulmonary disease with (acute) lower respiratory infection; Z20.828 Contact with and (suspected) exposure to other viral communicable diseases; D50.9 Iron deficiency anemia, unspecified; K44.9 Diaphragmatic hernia without obstruction or gangrene; K29.70 Gastritis, unspecified, without bleeding; K57.10 Diverticulosis of small intestine without perforation or abscess without bleeding; K21.9 Gastro-esophageal reflux disease without esophagitis; Z99.81 Dependence on supplemental oxygen; N83.209 Unspecified ovarian cyst, unspecified side; E66.9 Obesity, unspecified; Z79.82 Long term (current) use of aspirin; Z79.899 Other long term (current) drug therapy; Z87.891 Personal history of nicotine dependence; Z23 Encounter for immunization
CPT/HCPCS: 36415; 36600; 71045; 71046; 74177; 80048; 80053; 82375; 82805; 83050; 83605; 83735; 83880; 85014; 85018; 85025; 85027; 85610; 85730; 86140; 86850; 86900; 86901; 87040; 87070; 87205; 87635; 87899; 88305; 90471; 90653; 93005; 94002; 94640; 96365; 96366; 96367; 96368; 96375; 99285; A9270; C9113; C9803; G0008; G0378; G0379; J0131; J0456; J0696; J2704; J2930; J7030; J7060; J7120; Q9967; U0003

== ENCOUNTER 2020-09-10 08:09 | Emergency (ER) | payer MEDICARE, MEDICAID, SELFPAY ==
[2020-09-10] VITALS (12 sets, daily range): BP systolic 150–182; BP diastolic 57–102; PULSE 91–104; RESP 20–26; TEMP 36.4–36.8; O2SAT 90–100
--- NOTE | ~2020-09-10 | CT_ITS ---
EXAMINATION: CT cervical spine wo con DATE: 09/10/2020 09:17 INDICATION: Neck injury. TECHNIQUE: Computed tomography (CT) of the cervical spine was performed without intravenous contrast. Automated exposure control and iterative reconstruction technique were employed. The dose-length pro duct was 243.73 mGy-cm. COMPARISON: None FINDINGS: There is mild emphysema. There is 7 degrees levocurvature of cervical spine. There is 2 mm anterolisthesis of C4 on C5, C5 on C6. There is mild anterior wedging of C6 and T3 vertebral bodies, likely chronic. There are fractures of C1 involving the posterolateral C1 ring bilaterally. There is a fracture involving C2 body extending to the superior facets and base of the dens. There is mildly d ecreased disc height at C4-C5 C5-C6, and C6-C7. The following disc levels are specifically discussed: C2-C3: There is mild left uncovertebral joint osteoarthritis. There is severe bilateral facet joint o steoarthritis. There is mild left neural foraminal stenosis. There is no central canal stenosis. C3-C4: There is moderate left uncovertebral joint osteoarthritis. There is severe bilateral facet jose nt osteoarthritis. There is mild left neural foraminal stenosis. There is no central canal stenosis. C4-C5: There is mild bilateral uncovertebral joint osteoarthritis. There is severe bilateral facet joseph int osteoarthritis. There is mild bilateral neural foraminal stenosis. There is mild central canal st enosis. C5-C6: There is no uncovertebral joint osteoarthritis. There is severe bilateral facet joint osteoart hritis. There is mild bilateral neural foraminal stenosis. There is no central canal stenosis. C6-C7: There is no uncovertebral joint osteoarthritis. There is severe bilateral facet joint osteoart hritis. There is moderate neural foraminal stenosis. There is no central canal stenosis. C7-T1: There is no uncovertebral joint osteoarthritis. There is severe bilateral facet joint osteoart hritis. There is no neural foraminal stenosis. There is no central canal stenosis. IMPRESSION: 1. Fractures of C1 and C2. I called this result to Dr. Vicente. 2. Mild cervical spondylosis. Reviewed, dictated and finalized at location A. OTYPE ENGINEER
--- NOTE | ~2020-09-10 | XR_ITS ---
EXAMINATION: XR chest 1V portable DATE: 09/10/2020 10:02 INDICATION: Shortness of breath. TECHNIQUE: A single frontal view of the chest was obtained. COMPARISON: Chest 2 views 07/25/2020, CT abdomen and pelvis 07/22/2020, CT cervical spine 09/10/2020 FINDINGS: The patient is rotated to her left. There is discoid atelectasis in right lower lung zone. There are mild airspace opacities in right lower lung zone. No pleural effusion. The heart size is no rmal. There is a moderate-sized hiatal hernia. There is a prominent left paracardial fat pad. IMPRESSION: 1. Mild airspace opacities in right lower lung zone, consistent with atelectasis versus pneumonia. 2. Moderate-sized hiatal hernia. Reviewed, dictated and finalized at location A. CHIEF IMPRESSION: 1. Mild airspace opacities in right lower lung zone, consistent with atelectasi s versus pneumonia. 2. Moderate-sized hiatal hernia.
--- NOTE | ~2020-09-10 | CT_ITS ---
EXAMINATION: CT brain wo con DATE: 09/10/2020 09:17 INDICATION: Altered mental status. Fall. TECHNIQUE: Computed tomography (CT) of the head was performed without intravenous contrast. The mA wa s adjusted according to patient size. Iterative reconstruction technique was employed. The dose-lengt h product was 681.00 mGy-cm. COMPARISON: None FINDINGS: Motion artifact is noted. There are scattered areas of low attenuation in the cerebral whit e matter, which is within normal limits for the patient's age. There is no intracranial hemorrhage, a cute infarction, or abnormal intracranial mass lesion. The ventricles are normal in size. There is mi ld mucosal thickening in the ethmoid sinuses. There are likely changes of ocular lens replacement aylin geries. There are bilateral mastoid effusions. There is left frontal scalp soft tissue swelling. Ther e are sialoliths in the parotid glands bilaterally. IMPRESSION: 1. Normal aging brain. Reviewed, dictated and finalized at location A. ALK SOFTWARE DEVELOPER IMPRESSION: 1. Normal aging brain.
--- NOTE | 2020-09-10 08:20 | PC.NURSE ---
ATTEMPT TO PLACE ADULT C-COLLAR IN PT. UNABLE TO FIT PT DUE TO PT ANATOMY. ATTEMPTED TO PLACE PEDIATRIC C-COLLAR ON PT, UNABLE TO FIT PT DUE TO ANATOMY. DR ZARATE NOTIFIED.
--- NOTE | 2020-09-10 08:32 | ECG_ITS ---
Measurements Intervals [place] Rate: 107 P: 53 AR: 140 QRS: 6 QRSD: 79 T: 18 QT: 290 QTc: 388 Interpretive Statements SINUS TACHYCARDIA BASELINE ARTIFACT- II, III, AVF, V1-V3 ABNORMAL ECG Electronically Signed On 09-10-2020 11:03:19 MANAGER ENT by Mendoza Johnson D.O.
--- NOTE | 2020-09-10 08:34 | ED.FALL ---
HPI - Fall General Chief Complaint: Fall Stated Complaint: fall, head injury Time Seen by Provider: 09/10/20 08:12 History of Present Illness HPI Narrative: 79 yo female w/ h/o COPD, HTN presents to the ED after multiple falls. She reports multiple falls recently including a few last night and this morning. She now has severe pain in her neck and sustained an abrasion to the forehead. No LOC. She reports that the falls are due to generalized weakness. No CP, Fever, dysuria, hematuria, focal weakness, back pain. Related Data Home Medications Medication Instructions Recorded Confirmed Spiriva Respimat 2 puff INHALATION DAILY 07/22/20 07/23/20 albuterol sulfate 2 puff INHALATION PRN PRN 07/22/20 07/23/20 amitriptyline 25 mg PO HS 07/22/20 07/23/20 amoxicillin-pot clavulanate 1 tablet PO Q12H 07/22/20 07/23/20 azithromycin 250 mg PO DAILY 07/22/20 07/23/20 metoprolol succinate 100 mg PO DAILY 07/22/20 07/23/20 montelukast 10 mg PO DAILY 07/22/20 07/23/20 omeprazole 40 mg PO DAILY 07/22/20 07/23/20 oxycodone-acetaminophen 1 tablet PO Q12H 07/22/20 07/23/20 aspirin 81 mg PO DAILY 07/23/20 07/23/20 clonazepam 1 mg PO HS 07/23/20 07/23/20 fluticasone propion-salmeterol 1 inh INHALATION DAILY 07/23/20 07/23/20 [Advair Diskus] Allergies Allergy/AdvReac Type Severity Reaction Status Date / Time duloxetine Allergy Intermediate Cough Verified 09/10/20 08:27 quinapril AdvReac Unknown UNKNOWN Verified 09/10/20 08:27 Review of Systems Review of Systems: All systems reviewed & are unremarkable except as noted in HPI and below Constitutional: Constitutional: Denies chills, Reports fatigue, Denies fever(s) and Reports weakness Eyes: Eyes: Reports no additional eye complaints Cardiovascular: Cardiovascular: Denies chest pain Respiratory: Respiratory: Reports dyspnea (chronic) Gastrointestinal: Gastrointestinal: Denies abdominal pain, Denies diarrhea, Denies nausea and Denies vomiting Genitourinary: Genitourinary: Denies hematuria, Denies nocturia and Denies dysuria Musculoskeletal: Musculoskeletal: Denies back pain Neurologic: Denies confusion, Denies focal weakness, Denies numbness and Reports weakness [facility] Past Medical History Medical History Abnormal CT scan, stomach COPD (chronic obstructive pulmonary disease) Gastroesophageal reflux disease [place] Obesity Surgical History Surgical History H/O: hysterectomy Hx of colonoscopy Social History Social History Smoking packs per day: 10 Smoking cigarettes per day: 200.0 Years smoked: 46 Smoking pack-years: 460.00 Smoking status: Former smoker Alcohol intake: never Substance use: never Gender identity (if verbalized by the patient): Female Spiritual care concerns: No Exam Const: General: no acute distress, alert and ill appearing chronically Orientation/consciousness: patient oriented x3 HENMT: Head: normal to inspection Eyes: Pupils: Equal, round and reactive pupils present EOM: EOMs intact bilaterally Chest: Chest palpation & inspection: no tenderness Resp: Effort & Inspection: tachypneic Auscultation: diminished lung sounds Cardio: Rate: tachycardic Rhythm: regular rhythm GI: GI Palp: Yes Soft to palpation and No Tenderness to palpation present (GI) Back/Spine/Pelvis: Other: severe kyphosis, diffuse cervical tenderness Skin: General skin exam: normal color Wounds: no wounds Neuro: General: patient oriented x3, moves all extremities, no focal motor deficits and CN's II-XI intact bilaterally Speech: normal speech Extrem: General: no edema Course Vital Signs Vital signs: Vital Signs Temperature 36.8 C 09/10/20 08:20 Pulse Rate 104 H 09/10/20 08:20 Respiratory Rate 22 H 09/10/20 08:20 Blood Pressure 174/102 H 09/10/20 08:20 Pulse Oximetry 100
[2020-09-10 08:39] LABS: Basophils Percent Auto 0.2 % (0.2-1.2); Eosinophils Percent Auto 0.4 % (0-4.4); Hematocrit 37.2 % (37.0-47.0); Hemoglobin 10.6 g/dL (12.0-15.0); Immature Granulocyte Absolute 0.02 K/mm3 (0.00-0.031); Immature Granulocyte Percent A 0.2 % (0-0.5); Lymphocytes Absolute Auto 1.21 K/mm3 (0.9-3.2); Lymphocytes Percent Auto 14.8 % (18.3-44.2); Mean Corpuscular HGB Conc 28.5 g/dl (32-36); Mean Corpuscular Hemoglobin 25.1 pg (26-34); Mean Corpuscular Volume 87.9 fl (80-100); Mean Platelet Volume 9.3 fl (7.4-10.4); Monocytes Absolute Auto 0.8 K/mm3 (0.1-0.6); Monocytes Percent Auto 9.4 % (2.6-8.5); Neutrophils Absolute Auto 6.1 K/mm3 (1.3-6.7); Platelet Count Result 211 k/mm3 (150-375); Red Blood Count 4.23 M/mm3 (4.2-5.4); Red Cell Distribution Width 22.9 % (11.5-14.5); White Blood Count 8.2 K/mm3 (4.5-10.0)
[2020-09-10 08:47] LABS: Platelet Estimate Adequate (Adequate)
[2020-09-10 08:48] LABS: Anisocytosis 1+ (NORMAL); Stomatocytes 1+ (NORMAL)
[2020-09-10 09:00] LABS: Blood Urea Nitrogen 18 mg/dL (7-17); Calcium 8.7 mg/dL (8.4-10.2); Carbon Dioxide > 40 mmol/L (22-30); Chloride 93 mmol/L (98-107); Estimated Glomerular Filt Rate > 60; Glucose 142 mg/dL (65-105); Potassium 3.8 mmol/L (3.4-5.0); Sodium 142 mmol/L (137-145)
--- NOTE | 2020-09-10 09:30 | PC.NURSE ---
AT BEDSIDE TO ATTEMPT TO PLACE C-COLLAR. UNSUCCESSFUL DUE TO SHORT NECK. CALLED [employer] FOR C-COLLAR SIZE OPTIONS
[2020-09-10 09:57] LABS: Alanine Aminotransferase 19 U/L (4-35); Albumin Level 3.7 g/dL (3.5-5.1); Alkaline Phosphatase 94 U/L (38-126); Aspartate Amino Transferase 39 U/L (14-36); Bilirubin,Total 0.4 mg/dL (0.2-1.3)
--- NOTE | 2020-09-10 10:00 | PC.NURSE ---
SOFT COLLAR PROVIDED FROM [employer] ATTEMPTED TO PLACE ON PT. UNABLE TO PLACE DUE TO PT ANATOMY. DR ZARATE NOTIFIED.
[2020-09-10] MEDS: MORPHINE SULFATE (*CRX) 4 MG/ML INJ IV PUSH ×2 (11:20→14:31)
--- NOTE | 2020-09-10 11:43 | PC.NURSE ---
C-spine stabilization device made with baby blankets and applied at this time. No changes in CMS function noted after placement of stabilization. Patient remains awake, alert, and oriented. She tolerated placement well.
--- NOTE | 2020-09-10 12:00 | PC.NURSE ---
Patient remains awake, alert, and oriented. She does not report loss of sensation in any extremity. Strong and equal bar examiner noted bilaterally. Strong and equal foot strength noted bilaterally. No loss of CMS function noted at time of assessment. Patient has abrasion noted to the left forehead. There are multiple bruises in different stages of healing noted to patient's extremities. She reports history of falls.
[2020-09-10 13:11] LABS: Add Urine Microscopic? YES; Amorphous Sediment Urine Few; Appearance Urine Turbid (Clear); Bilirubin Urine Negative (Negative); Blood Urine Negative (Negative); Color Urine Yellow (Yellow); Glucose Urine UA Negative (Negative); Ketones Urine Negative (Negative); Leukocyte Esterase Ur Negative LEU/UL (Negative); Mucus Urine Few /lpf; Nitrate Urine Negative (Negative); Protein Urine 1+ mg/dL (Negative); Specific Grav Ur 1.014 (1.001-1.035); Squamous Epithelial Cell Urine Occasional /hpf (Few); Urobilinogen Urine Negative mg/dL (<2.0); WBC Urine 0-3 /hpf
== END 2020-09-10 18:42 | disposition short-term general hospital (02) ==
PROVIDERS: Emergency Provider Emergency Medicine; PCP Internal Medicine
DX: S12.090A Other displaced fracture of first cervical vertebra, initial encounter for closed fracture (principal); S12.190A Other displaced fracture of second cervical vertebra, initial encounter for closed fracture; R29.6 Repeated falls; J44.9 Chronic obstructive pulmonary disease, unspecified; I10 Essential (primary) hypertension; K21.9 Gastro-esophageal reflux disease without esophagitis; Z87.891 Personal history of nicotine dependence; M47.812 Spondylosis without myelopathy or radiculopathy, cervical region; R91.8 Other nonspecific abnormal finding of lung field; K44.9 Diaphragmatic hernia without obstruction or gangrene; R00.0 Tachycardia, unspecified; W19.XXXA Unspecified fall, initial encounter
CPT/HCPCS: 36415; 51702; 70450; 71045; 72125; 80048; 80076; 81001; 85025; 93005; 96374; 96376; 99285; A9270; J2270; L0140

== ENCOUNTER 2021-03-02 14:07 | Outpatient (CLI) | payer MEDICARE, MEDICAID, SELFPAY ==
[2021-03-02 15:18] LABS: Basophils Percent Auto 0.3 % (0.2-1.2); Eosinophils Absolute Auto 0.2 K/mm3 (0-0.3); Eosinophils Percent Auto 2.2 % (0-4.4); Hematocrit 35.2 % (37.0-47.0); Hemoglobin 10.9 g/dL (12.0-15.0); Immature Granulocyte Absolute 0.02 K/mm3 (0.00-0.031); Immature Granulocyte Percent A 0.3 % (0-0.5); Lymphocytes Absolute Auto 2.29 K/mm3 (0.9-3.2); Lymphocytes Percent Auto 31.6 % (18.3-44.2); Mean Corpuscular Hemoglobin 28.3 pg (26-34); Mean Corpuscular Volume 91.4 fl (80-100); Mean Platelet Volume 9.2 fl (7.4-10.4); Monocytes Absolute Auto 0.7 K/mm3 (0.1-0.6); Monocytes Percent Auto 9.2 % (2.6-8.5); Neutrophils Absolute Auto 4.1 K/mm3 (1.3-6.7); Neutrophils Percent Auto 56.4 % (45.5-73.1); Platelet Count Result 232 k/mm3 (150-375); Red Blood Count 3.85 M/mm3 (4.2-5.4); Red Cell Distribution Width 13.6 % (11.5-14.5); White Blood Count 7.3 K/mm3 (4.5-10.0)
--- NOTE | 2021-03-02 18:09 | WPDSIXMINUTE ---
Six Minute Walk Procedure Procedure Performed Pulmonary Stress Test (6 min walk) Six Minute Walk This is a 6 minutes walk test. The test was performed and interpreted in accordance with the 2014 ERS/ATS task force guidelines. The test was performed on the patient's home setting of 3 L nasal cannula. Findings: The patient's resting oxygen saturation on 3 l NC measured by pulse oximetry was 99% and her heart rate was 74 bpm. Patient ambulated for 274 meters and oxygen saturation remained 97 to 99%. Heart rate at the end of the study was 84 bpm. There are no prior studies for comparison.
[2021-03-07 03:32] LABS: Immunoglobulin E 14 kU/L (<=114)
[2021-03-07 11:10] LABS: Alpha-1-Antitrypsin, QN 165 mg/dL (83-199)
[2021-03-07 12:25] LABS: NIL 0.05 IU/mL; Quantiferon TB Plus, 1T NEGATIVE (NEGATIVE)
== END 2021-03-02 14:08 | disposition home or self-care (01) ==
LOC: ANHPFT 14:13
PROVIDERS: PCP Internal Medicine; Visit Provider Nurse Practitioner
DX: J44.9 Chronic obstructive pulmonary disease, unspecified (principal); R06.09 Other forms of dyspnea
CPT/HCPCS: 36415; 82103; 82104; 82785; 85025; 86003; 86480; 94618

== ENCOUNTER 2021-07-19 12:37 | Outpatient (CLI) | payer MEDICARE, MEDICAID, SELFPAY ==
[2021-07-19 13:05] VITALS: PULSE 82; O2SAT 93
[2021-07-19 13:10] VITALS: PULSE 92; O2SAT 86
[2021-07-19 13:15] VITALS: PULSE 92; O2SAT 88
[2021-07-19 13:20] VITALS: PULSE 95; O2SAT 91
[2021-07-19 13:30] VITALS: PULSE 84; O2SAT 93
--- NOTE | 2021-07-19 14:42 | HOMEO2EVAL ---
Evaluation was performed at [facility] Home Oxygen Evaluation RC: Home Oxygen (O2) Evaluation Start: 07/19/21 14:38 Freq: Status: Active Protocol: RPE Activity Type Activity Date Activity User E-Sign Co-Sign Detail Recorded Client Recorded Date Recorded By Document 07/19/21 13:05 [email or web address] [email or web address] 07/19/21 14:42 DJO Document 07/19/21 13:10 [email or web address] [email or web address] 07/19/21 14:42 DJO Document 07/19/21 13:15 [email or web address] [email or web address] 07/19/21 14:42 DJO Document 07/19/21 13:20 [email or web address] [email or web address] 07/19/21 14:42 DJO Document 07/19/21 13:30 [email or web address] [email or web address] 07/19/21 14:42 DJO 07/19/21 07/19/21 07/19/21 13:05 13:10 13:15 Home O2 Evaluation Test Phase Resting Exercise Exercise Oxygen Delivery Room Air Room Air Nasal Cannula Oxygen Flow Rate (L/min) 1 Pulse Oximetry (90-100 %) 93 86 L 88 L Pulse Rate (60-100 beats/min) 82 92 92 Activity Tolerance Poor Ambulation Distance (feet) Treatment Charges O2 Evaluation - Outpatient 07/19/21 07/19/21 13:20 13:30 Home O2 Evaluation Test Phase Exercise Resting Oxygen Delivery Nasal Cannula Room Air Oxygen Flow Rate (L/min) 2 Pulse Oximetry (90-100 %) 91 93 Pulse Rate (60-100 beats/min) 95 84 Activity Tolerance Ambulation Distance (feet) 400 Treatment Charges
--- NOTE | 2021-08-09 13:38 | HOMEO2EVAL ---
Evaluation was performed at [facility]
--- NOTE | 2021-08-09 13:39 | HOMEO2EVAL ---
Evaluation was performed at [facility]
== END 2021-07-19 12:38 | disposition home or self-care (01) ==
LOC: ANHPFT 12:39
PROVIDERS: PCP Internal Medicine; Visit Provider Nurse Practitioner
DX: Z99.81 Dependence on supplemental oxygen (principal)
CPT/HCPCS: 94618

== ENCOUNTER 2021-09-20 17:56 | Emergency (ER) | payer MEDICARE, MEDICAID, SELFPAY ==
--- NOTE | ~2021-09-20 | CT_ITS ---
EXAMINATION: CT lumbar spine wo con DATE: 09/20/2021 19:49 INDICATION: 2 weeks of low back pain after lifting and oxygen pain. TECHNIQUE: Computed tomography (CT) of the lumbar spine was performed without intravenous contrast. A utomated exposure control and iterative reconstruction technique were employed. The dose-length produ ct was 356.95 mGy-cm. COMPARISON: CT abdomen pelvis dated 07/22/2020 FINDINGS: No interval change in chronic T11 and T12 burst fractures with 80% central vertebral body height loss and 5 mm retropulsion at both levels resulting in mild central canal stenosis. Also unchanged is a c hronic T10 compression fracture with 20% anterior vertebral body height loss. Together this results i n a mild lower thoracic kyphosis. L2 burst fracture which is new since the prior study with 20% centr al to posterior vertebral body height loss and 3 mm retropulsion resulting in only minimal central ca nal stenosis at this level. Remaining vertebral body heights are normal. There is mild disc height lo ss at T9-T10, T10-T11 and L5-S1. Small to moderate-sized sliding-type hiatal hernia. A few diverticul a along the visualized sigmoid colon without adjacent inflammatory change to suggest diverticulitis. The following disc levels are specifically discussed: T9-T10: The disc does not extend beyond the endplate margin. There is moderate bilateral facet joint osteoarthritis. There is no neural foraminal stenosis. There is no central canal stenosis. T10-T11: 5 mm retropulsion. There is moderate bilateral facet joint osteoarthritis. There is moderate bilateral neural foraminal stenosis. There is mild central canal stenosis. T11-T12: 5 mm retropulsion into the superior endplate of T12. There is moderate bilateral facet joint osteoarthritis. There is no neural foraminal stenosis. There is mild central canal stenosis. T12-L1: 5 mm retropulsion into the inferior endplate of T12. There is moderate left and mild right fa cet joint osteoarthritis. There is mild bilateral neural foraminal stenosis. There is mild central ca nal stenosis. L1-L2: There is mild to moderate bilateral facet joint osteoarthritis. There is no neural foraminal s tenosis. There is no central canal stenosis. L2-L3: 3 mm retropulsion of the inferior endplate of L2. There is moderate bilateral facet joint oste oarthritis. There is no neural foraminal stenosis. There is mild central canal stenosis. L3-L4: Disc is mildly bulging. There is moderate bilateral facet joint osteoarthritis. There is mild right neural foraminal stenosis. There is mild central canal stenosis. L4-L5: Disc is mildly bulging. There is severe bilateral facet joint osteoarthritis. There is mild ri ght neural foraminal stenosis. There is mild central canal stenosis. L5-S1: There is severe bilateral facet joint osteoarthritis. There is mild bilateral neural foraminal stenosis. There is no central canal stenosis. IMPRESSION: 1. Age-indeterminate L2 burst fracture with mild vertebral body height loss and 3 mm retropulsion, ne w since July 2020. 2. Stable appearance of chronic T10 compression fracture of T11 and T12 burst fractures. Line 3. Mild lumbar spondylosis with moderate to severe multilevel facet osteoarthritis. 4. Small to moderate-sized sliding-type hiatal hernia. Reviewed, dictated and finalized at location A. ONAL PROPERTY APPRAISER IMPRESSION: 1. Age-indeterminate L2 burst fracture with mild vertebral body height loss and 3 mm retropulsion, new since July 2020. 2. Stable appearance of chronic T10 compression fracture of T11 and T12 burst f ractures. Line 3. Mild lumbar spondylosis with moderate to severe multilevel facet osteoarthri tis. 4. Small to moderate-sized sliding-type hiatal hernia.
[2021-09-20 17:53] VITALS: BP 190/77; PULSE 82; RESP 16; O2SAT 100
--- NOTE | 2021-09-20 19:38 | ED.BACK ---
HPI - Back Pain/Injury General Chief Complaint: Back Pain/Injury Stated Complaint: BACK PAIN Time Seen by Provider: 09/20/21 19:16 Source: patient History of Present Illness HPI Narrative: 40-year-old female presenting to the emergency department for evaluation of lower back pain that has been persistent for the last 11 days. Patient reports he had acute onset of the lower back pain when she was lifting an oxygen tank. Patient states that the pain has been persistent. Patient states she did try to take Tylenol for pain control with no significant improvement in the pain. Patient denies any lower extremity weakness. Patient denies loss of bowel control denies any difficulty starting urination. Patient states she was given pain meds and the ambulance and that these did help. Related Data Home Medications Medication Instructions Recorded Confirmed Spiriva Respimat 2 puff INHALATION DAILY 07/22/20 07/23/20 albuterol sulfate 2 puff INHALATION PRN PRN 07/22/20 07/23/20 metoprolol succinate 100 mg PO DAILY 07/22/20 07/23/20 oxycodone-acetaminophen 1 tablet PO Q12H 07/22/20 07/23/20 aspirin 81 mg PO DAILY 07/23/20 07/23/20 clonazepam 1 mg PO HS 07/23/20 07/23/20 fluticasone propion-salmeterol 1 inh INHALATION DAILY 07/23/20 07/23/20 [Advair Diskus] acetaminophen 500 mg PO Q6H PRN 09/20/21 09/20/21 Allergies Allergy/AdvReac Type Severity Reaction Status Date / Time duloxetine Allergy Intermediate Cough Verified 09/10/20 08:27 tramadol Allergy Unknown Verified 09/20/21 18:03 quinapril AdvReac Unknown UNKNOWN Verified 09/10/20 08:27 ON LICENSE OF [facility] Past Medical History Medical History Abnormal CT scan, stomach COPD (chronic obstructive pulmonary disease) Gastroesophageal reflux disease Melena Obesity Surgical History Surgical History H/O: hysterectomy Hx of colonoscopy Social History Social History Smoking packs per day: 10 Smoking cigarettes per day: 200.0 Years smoked: 46 Smoking pack-years: 460.00 Smoking status: Former smoker Alcohol intake: never Substance use: never Gender identity (if verbalized by the patient): Female Spiritual care concerns: No Course Course Emergency Course: Case was discussed with ortho and patient will have follow up in the morning or next week. Patient reports her symptoms were improved with treatment emergency room. Patient states she does feel comfortable with the plan for discharge to home. Vital Signs Vital signs: Vital Signs Pulse Rate 82 09/20/21 17:53 Respiratory Rate 16 09/20/21 17:53 Blood Pressure 190/77 H 09/20/21 17:53 Pulse Oximetry 100 09/20/21 17:53 Pulse Rate 81 09/20/21 21:27 Respiratory Rate 18 09/20/21 21:27 Blood Pressure 185/72 H 09/20/21 21:27 Pulse Oximetry 95 09/20/21 21:27 MDM - Back Pain/Injury Medical Records Attestation: I reviewed the patient's medical records. Imaging Data Radiologist's impression: Impressions Lumbar Spine CT 09/20/21 20:09 IMPRESSION: 1. Age-indeterminate L2 burst fracture with mild vertebral body height loss and 3 mm retropulsion, new since July 2020. 2. Stable appearance of chronic T10 compression fracture of T11 and T12 burst fractures. Line 3. Mild lumbar spondylosis with moderate to severe multilevel facet osteoarthritis. 4. Small to moderate-sized sliding-type hiatal hernia. Discharge Plan Discharge Clinical Impression: Closed L2 vertebral fracture Qualifiers: Encounter type: initial encounter Fracture morphology: burst- stable Qualified Code(s): S32.021A - Stable burst fracture of second lumbar vertebra, initial encounter for closed fracture Patient Disposition: Home, Self-Care Condition: Stable Instructions: Antibiotic Form, Vertebral Compression Fracture (ED) Additional Instruc
[2021-09-20 20:05] VITALS: BP 183/81; PULSE 78; RESP 18; O2SAT 100
[2021-09-20] MEDS: HYDROcodone/acetaminophen (*CRX) 5-325 MG TABLET 1 TAB PO (20:06)
[2021-09-20 21:27] VITALS: BP 185/72; PULSE 81; RESP 18; O2SAT 95
== END 2021-09-21 00:05 | disposition home or self-care (01) ==
PROVIDERS: Emergency Provider Emergency Medicine; PCP Internal Medicine
DX: S32.021A Stable burst fracture of second lumbar vertebra, initial encounter for closed fracture (principal); J44.9 Chronic obstructive pulmonary disease, unspecified; K21.9 Gastro-esophageal reflux disease without esophagitis; E66.9 Obesity, unspecified; Z68.22 Body mass index [BMI] 22.0-22.9, adult; Z87.891 Personal history of nicotine dependence; M47.816 Spondylosis without myelopathy or radiculopathy, lumbar region; K44.9 Diaphragmatic hernia without obstruction or gangrene; X50.0XXA Overexertion from strenuous movement or load, initial encounter
CPT/HCPCS: 72131; 96365; 96367; 99284; A9270

== ENCOUNTER 2021-09-22 17:54 | Emergency (ER) | payer MEDICARE, MEDICAID, SELFPAY ==
[2021-09-22 18:15] VITALS: BP 155/89; PULSE 81; RESP 18; TEMP 37.1; O2SAT 100
--- NOTE | 2021-09-22 20:00 | ED.GENADULT ---
HPI - General Adult General Chief complaint: Wound/Laceration Stated complaint: back pain and wound Time Seen by Provider: 09/22/21 19:05 Source: patient, family, RN notes reviewed and old records reviewed Mode of arrival: ambulatory Limitations: no limitations History of Present Illness HPI narrative: 80-year-old female presented to the emergency department for evaluation of a developing abscess/cellulitis on her right buttock. Patient states this started approximately 5 days ago. Patient was seen here recently and diagnosed with an L2 compression fracture. Patient does have follow-up scheduled next week with a specialist for this. Patient was prescribed [place] for pain control but states she cannot take this due to it upsetting her stomach. Patient has been taking her Tylenol with codeine with minimal improvement. Related Data Home Medications Medication Instructions Recorded Confirmed Spiriva Respimat 2 puff INHALATION DAILY 07/22/20 07/23/20 albuterol sulfate 2 puff INHALATION PRN PRN 07/22/20 07/23/20 metoprolol succinate 100 mg PO DAILY 07/22/20 07/23/20 oxycodone-acetaminophen 1 tablet PO Q12H 07/22/20 07/23/20 aspirin 81 mg PO DAILY 07/23/20 07/23/20 clonazepam 1 mg PO HS 07/23/20 07/23/20 fluticasone propion-salmeterol 1 inh INHALATION DAILY 07/23/20 07/23/20 [Advair Diskus] acetaminophen 500 mg PO Q6H PRN 09/20/21 09/20/21 Allergies Allergy/AdvReac Type Severity Reaction Status Date / Time duloxetine Allergy Intermediate Cough Verified 09/10/20 08:27 quinapril AdvReac Unknown UNKNOWN Verified 09/10/20 08:27 tramadol AdvReac Unknown Verified 09/23/21 10:29 Review of Systems Review of Systems: CONSTITUTIONAL: Denies fever, chills, or sweats. EYES: Denies visual changes, redness, or discharge. ENT: Denies rhinorrhea, congestion, sore throat, or otalgia. CARDIOVASCULAR: Denies chest pain, palpitations, or edema. RESPIRATORY: Denies cough or dyspnea. GASTROINTESTINAL: Denies abdominal pain, nausea, vomiting, or diarrhea. GENITOURINARY: Denies dysuria or hematuria. SKIN: Evolving abscess/cellulitis on buttocks MUSCULOSKELETAL: Back pain unchanged NEUROLOGIC: Denies headache, numbness, or weakness. [facility] Past Medical History Medical History Abnormal CT scan, stomach COPD (chronic obstructive pulmonary disease) Gastroesophageal reflux disease Melena Obesity Surgical History Surgical History H/O: hysterectomy Hx of colonoscopy Social History Social History Smoking packs per day: 10 Smoking cigarettes per day: 200.0 Years smoked: 46 Smoking pack-years: 460.00 Smoking status: Former smoker Alcohol intake: never Substance use: never Gender identity (if verbalized by the patient): Female Spiritual care concerns: No Exam Narrative: APPEARANCE: Well appearing, no pain, no distress, well-nourished. HEAD: normocephalic, atraumatic. EYES: PERRLA/EOMI, conjunctivae clear. NECK: Supple. No adenopathy, no masses. RESPIRATORY: Airway patent, respirations nonlabored. Clear to auscultation bilaterally, no rales, rhonchi, wheezing. CARDIOVASCULAR: Regular rate and rhythm without murmurs rubs or gallops. ABDOMINAL: Soft, nontender, nondistended, normal bowel sounds MUSCULOSKELETAL: Moves all extremities. Strength/ROM intact, No edema, No calf tenderness. NEURO: Alert. Cranial nerves II through XII intact. Good gait. Good coordination SKIN: Cellulitis/early abscess on buttocks. No active drainage. No abscess amenable to drainage. Course Course Emergency Course: Patient does have an early abscess/cellulitis on her buttock. Antibiotics were started in the emergency department. Patient was discharged home antibiotics. Abscess is not amenable to drainage at this time. Both patient and family were updated on the potential need for yumiko
[2021-09-22] MEDS: HYDROmorphone HCL INJ (*CRX) 1 MG/ML SYR 0.5 MG IM (20:09)
[2021-09-22] MEDS: LIDOCAINE 5% PATCH 1 PATCH TRANSDERM (20:09)
[2021-09-22] MEDS: CLINDAMYCIN HCL 150 MG CAP 300 MG PO (20:09)
== END 2021-09-22 20:56 | disposition home or self-care (01) ==
PROVIDERS: Emergency Provider Emergency Medicine; PCP Internal Medicine
DX: L03.317 Cellulitis of buttock (principal); J44.9 Chronic obstructive pulmonary disease, unspecified; K21.9 Gastro-esophageal reflux disease without esophagitis; E66.9 Obesity, unspecified; Z68.22 Body mass index [BMI] 22.0-22.9, adult; Z87.891 Personal history of nicotine dependence; Z79.82 Long term (current) use of aspirin
CPT/HCPCS: 96372; 99284; A9270; J1170

== ENCOUNTER 2021-09-23 05:43 | Emergency (ER) | payer MEDICARE, MEDICAID, SELFPAY ==
[2021-09-23] VITALS (10 sets, daily range): BP systolic 141–189; BP diastolic 87–99; PULSE 75–85; RESP 16–20; TEMP 36.6; O2SAT 97–100
--- NOTE | ~2021-09-23 | CT_ITS ---
EXAMINATION: CT brain wo con DATE: 09/23/2021 08:19 INDICATION: Fall with head pain TECHNIQUE: Computed tomography (CT) of the head was performed without intravenous contrast. Sagittal and coronal reconstructions were performed. The mA was adjusted according to patient size. Iterative reconstruction technique was employed. The dose-length product was 908.00 mGy-cm. COMPARISON: head CT dated 09/10/2020 FINDINGS: No fracture. No acute intracranial hemorrhage, acute infarction or abnormal extra axial fluid collect ion. Ventricles are normal and symmetric. Increased prominence of the subarachnoid spaces overlying t he convexities consistent with age-appropriate mild to moderate diffuse volume loss. No mass/mass eff ect. Left mastoid effusion. The orbitsand paranasal sinuses are normal. IMPRESSION: 1. No fracture or acute intracranial process. Reviewed, dictated and finalized at location A. PREVENTION/SAFETY DISTRICT MANAGER
--- NOTE | ~2021-09-23 | XR_ITS ---
EXAMINATION: XR thoracic spine 3V DATE: 09/23/2021 07:49 INDICATION: Back pain post fall. TECHNIQUE: One AP, lateral and lateral swimmer's views of the thoracic spine were obtained. COMPARISON: Two-view chest radiograph dated 07/25/2020 FINDINGS: Thoracic kyphosis with multiple chronic fractures in the thoracic spine including unchanged burst fra ctures at T11 and T12 with 80% anterior vertebral body height loss, and compression fractures at T10 with one third anterior vertebral body height loss and at T7 with 20% anterior vertebral body loss. M ultilevel mild disc height loss with mild degenerative endplate changes throughout the thoracic spine . Small hiatal hernia. Tortuous and atherosclerotic thoracic aorta. Visualized portions of the lungs are clear. IMPRESSION: 1. Thoracic kyphosis with no interval change in multiple chronic thoracic burst and compression fract ures. Reviewed, dictated and finalized at location A. DEPARTMENT SUPERVISOR IMPRESSION: 1. Thoracic kyphosis with no interval change in multiple chronic thoracic burst and compression fractures.
--- NOTE | ~2021-09-23 | CT_ITS ---
EXAMINATION: CT lumbar spine wo con DATE: 09/23/2021 08:18 INDICATION: Fall with back pain TECHNIQUE: Computed tomography (CT) of the lumbar spine was performed without intravenous contrast. A utomated exposure control and iterative reconstruction technique were employed. The dose-length produ ct was 511.01 mGy-cm. COMPARISON: 09/20/2021 FINDINGS: No interval change in chronic T11 and T12 burst fractures with 80% central vertebral body height loss and 5 mm retropulsion at both levels resulting in mild central canal stenosis as well as a L2 burst fracture with 20% central to posterior vertebral body height loss and 3 mm retropulsion resulting in only minimal central canal stenosis at this level. Remaining vertebral body heights are normal. There is mild disc height loss at L5-S1. Moderate to severe bilateral multilevel lumbar facet osteoarthrit is. Small to moderate-sized sliding-type hiatal hernia. A few diverticula along the visualized sigmoi d colon without adjacent inflammatory change to suggest diverticulitis. 3 cm left adnexal cyst. IMPRESSION: 1. No evident change in chronic T11 and T12 burst fractures and an age-indeterminate L2 burst fractur es present on study 3 days prior but new since 2019. No new osseous abnormality. 2. Mild lumbar spondylosis with moderate to severe multilevel facet osteoarthritis. See report from 3 days prior for level by level analysis. 3. Small to moderate-sized sliding-type hiatal hernia. Reviewed, dictated and finalized at location A. LE APPLICATION TESTER IMPRESSION: 1. No evident change in chronic T11 and T12 burst fractures and an age-indeterm inate L2 burst fractures present on study 3 days prior but new since 2019. No n ew osseous abnormality. 2. Mild lumbar spondylosis with moderate to severe multilevel facet osteoarthri tis. See report from 3 days prior for level by level analysis. 3. Small to moderate-sized sliding-type hiatal hernia.
--- NOTE | ~2021-09-23 | XR_ITS ---
EXAMINATION: XR hip LT min 3V w AP pelvis DATE: 09/23/2021 07:49 INDICATION: Left hip pain TECHNIQUE: Anteroposterior view of the pelvis and anteroposterior and frog-leg lateral views of the l eft hip were obtained. COMPARISON: None. FINDINGS: There is subluxation along the pubis symphysis with approximately 5 mm incongruity across the symphys is with the left pubic body slightly elevated relative to the right. This is age-indeterminate but th e distribution of the osteitis pubis relatively sparing the cephalad uncovered portion of the articul ar surface of the left pubic body suggests this may be chronic. No fracture. Mild bilateral hip and s acroiliac osteoarthritis. Suture line in the pelvis consistent with prior bowel surgery. IMPRESSION: 1. Age-indeterminate but likely chronic subluxation along the pubic symphysis. No fractures identifie d. Reviewed, dictated and finalized at location A. DESIGNER IMPRESSION: 1. Age-indeterminate but likely chronic subluxation along the pubic symphysis. No fractures identified.
--- NOTE | ~2021-09-23 | XR_ITS ---
EXAMINATION: XR shoulder LT min 2V DATE: 09/23/2021 07:49 INDICATION: Left shoulder pain TECHNIQUE: AP internally and externally rotated, AP oblique externally rotated and transscapular Y vi ews of the left shoulder were obtained. COMPARISON: None FINDINGS: Normal alignment. Chronic T11 and T12 compression fractures. No acute fractures identified. Mild yosi ohumeral and mild to moderate acromioclavicular osteoarthritis. Visualized portion of the lungs are c lear. Soft tissues are unremarkable. IMPRESSION: 1. Chronic T11 and T12 compression fractures. No acute osseous abnormality. 2. Mild glenohumeral and mild to moderate acromioclavicular osteoarthritis. Reviewed, dictated and finalized at location A. R AND RECOVERY SUPERVISOR
--- NOTE | ~2021-09-23 | CT_ITS ---
EXAMINATION: CT cervical spine wo con DATE: 09/23/2021 08:20 INDICATION: Fall with head pain TECHNIQUE: Computed tomography (CT) of the cervical spine was performed without intravenous contrast. Automated exposure control and iterative reconstruction technique were employed. The dose-length pro duct was 126.02 mGy-cm. COMPARISON: 09/10/2020 FINDINGS: Previously seen fractures of the ring of C1 hasn't used in essentially anatomic alignment and now ind iscernible. No acute fractures. Unchanged 2 mm anterolisthesis C4 on C5. Alignment is otherwise royal l. Vertebral body and disc heights are normal. Multilevel severe bilateral facet osteoarthritis contr ibuting to mild neural foraminal stenosis most prominent in the mid cervical spine. No central canal stenosis. Chronic left mastoid effusion. Sialolithiasis with multiple small calcifications throughout the bilateral parotid glands and in the left submandibular gland. Mild emphysema at the right apex. 3.1 cm right thyroid mass. IMPRESSION: 1. Mild cervical spondylosis. No acute osseous abnormality. Reviewed, dictated and finalized at location A. P
--- NOTE | 2021-09-23 08:30 | ED.FALL ---
HPI - Fall General Chief Complaint: Fall Stated Complaint: glf with head, shoulder, back, hip pain Time Seen by Provider: 09/23/21 07:20 Source: patient and EMS Mode of arrival: EMS Limitations: no limitations History of Present Illness HPI Narrative: Patient lives with her ex , tripped on her oxygen tube and fell backward, complaining of left shoulder, left hip and lower back pain. Patient denies head injury. Patient on aspirin and oxygen by nasal cannula at 3 L all the time. Patient denies any fever, chills, nausea, vomiting. Patient report a recent fall earlier in the last 24 hours Related Data Home Medications Medication Instructions Recorded Confirmed Spiriva Respimat 2 puff INHALATION DAILY 07/22/20 07/23/20 albuterol sulfate 2 puff INHALATION PRN PRN 07/22/20 07/23/20 metoprolol succinate 100 mg PO DAILY 07/22/20 07/23/20 oxycodone-acetaminophen 1 tablet PO Q12H 07/22/20 07/23/20 aspirin 81 mg PO DAILY 07/23/20 07/23/20 clonazepam 1 mg PO HS 07/23/20 07/23/20 fluticasone propion-salmeterol 1 inh INHALATION DAILY 07/23/20 07/23/20 [Advair Diskus] acetaminophen 500 mg PO Q6H PRN 09/20/21 09/20/21 Allergies Allergy/AdvReac Type Severity Reaction Status Date / Time duloxetine Allergy Intermediate Cough Verified 09/10/20 08:27 tramadol Allergy Unknown Verified 09/20/21 18:03 quinapril AdvReac Unknown UNKNOWN Verified 09/10/20 08:27 [facility] Past Medical History Medical History Abnormal CT scan, stomach COPD (chronic obstructive pulmonary disease) Gastroesophageal reflux disease Melena Obesity Surgical History Surgical History H/O: hysterectomy Hx of colonoscopy Social History Social History Smoking packs per day: 10 Smoking cigarettes per day: 200.0 Years smoked: 46 Smoking pack-years: 460.00 Smoking status: Former smoker Alcohol intake: never Substance use: never Gender identity (if verbalized by the patient): Female Spiritual care concerns: No Exam Narrative: General appearance: Well-developed, well-nourished Skin: Normal color Head: Normocephalic, nontraumatic Eyes: Clear conjunctiva ENT: Oropharynx normal, ears normal, nose normal Neck: Supple, nontender Chest and respiratory: Airway patent, no respiratory distress, no accessory muscle use Heart: Regular rate/rhythm Abdomen: Soft, nontender, no organomegaly, quiet bowel sounds Vascular: Normal peripheral pulses, normal capillary refill. Musculoskeletal: Diffuse tenderness across lumbar area, no bruises, thoracic kyphosis Neurologic: Alert and oriented ?3, SALES OPERATIONS LEAD is normal as tested, no gross motor deficit Course Course Emergency Course: Patient came to our emergency room with another fall, complaining of lower back pain after another fall today. Work-up showed L2 burst fracture of indeterminate age which is not different compared to last visit on September 20 ,patient is scheduled to see Dr. Nguyen/orthopedic at [facility] coming Saturday. My plan to get lower back brace, patient declined to be hospitalized or to go to a detention. Because of inability to take care of herself and manage her pain, the plan to transfer patient to [place], trauma, ED Consultations Consultation #1: Dr. Kumar, ED at [facility] who accepted patient transfer Date: 09/23/21 Time: 09:52 Vital Signs Vital signs: Vital Signs Temperature 36.6 C 09/23/21 05:41 Pulse Rate 85 09/23/21 05:41 Respiratory Rate 20 09/23/21 05:41 Pulse Oximetry 100 09/23/21 05:41 Temperature 3
--- NOTE | 2021-09-23 09:18 | PC.NURSE ---
Spoke with Mikey and gave pt demographic information for TSLO brace fitting. He states that he will be here to fit her in about an hour.
[2021-09-23] MEDS: MORPHINE SULFATE (*CRX) 2 MG/ML INJ IV PUSH (10:09)
--- NOTE | 2021-09-23 10:17 | PC.NURSE ---
Mepilex placed to pressure injury on right buttocks
--- NOTE | 2021-09-23 10:25 | PC.NURSE ---
Report called to JUAN Sanchez at [facility]
--- NOTE | 2021-09-23 11:15 | PC.NURSE ---
Updated daughter on patients transfer
== END 2021-09-23 11:22 | disposition short-term general hospital (02) ==
PROVIDERS: Emergency Provider Emergency Medicine; PCP Internal Medicine
DX: S32.021A Stable burst fracture of second lumbar vertebra, initial encounter for closed fracture (principal); S49.92XA Unspecified injury of left shoulder and upper arm, initial encounter; S79.912A Unspecified injury of left hip, initial encounter; J44.9 Chronic obstructive pulmonary disease, unspecified; Z99.81 Dependence on supplemental oxygen; K21.9 Gastro-esophageal reflux disease without esophagitis; E66.9 Obesity, unspecified; Z68.32 Body mass index [BMI] 32.0-32.9, adult; Z79.82 Long term (current) use of aspirin; Z87.891 Personal history of nicotine dependence; M47.816 Spondylosis without myelopathy or radiculopathy, lumbar region; M47.812 Spondylosis without myelopathy or radiculopathy, cervical region; K44.9 Diaphragmatic hernia without obstruction or gangrene; M19.012 Primary osteoarthritis, left shoulder; E07.9 Disorder of thyroid, unspecified; K11.5 Sialolithiasis; W18.09XA Striking against other object with subsequent fall, initial encounter
CPT/HCPCS: 70450; 72072; 72125; 72131; 73030; 73502; 96374; 99285; J2270

== ENCOUNTER 2021-11-02 13:52 | Emergency (ER) | payer MEDICARE, MEDICAID, SELFPAY ==
--- NOTE | ~2021-11-02 | CT_ITS ---
EXAMINATION: CT lumbar spine wo con EXAM DATE: 11/02/2021 14:50 INDICATION: Acute injury. TECHNIQUE: Spiral CT of the lumbar spine was performed without contrast. Axial, coronal and sagittal images lumbar spine were reviewed. The dose-length product (DLP) for this examination was 278.40 mG y-cm. The exposure was tailored according to patient size (auto mA exposure control), and iterative reconstruction (ASIR) was used as additional dose reduction technique. Comparison is made to prior e xamination from 09/23/2021. FINDINGS: There are chronic burst fractures at T11 and T12 with mild to moderate retropulsion unchang ed causing mild to moderate central canal stenosis. Severe loss of the height centrally at T12, moder ate to severe centrally at T11. There is mild to moderate burst fracture of the L2 vertebral body, has progressed compared to previou s study. There is also sclerosis within this vertebral body indicating some healing response but ther e could be an acute component to this. No more than 2 mm retropulsion of the inferior endplate, less than the chronic levels above. There is no spondylolysis. The vertebral bodies are aligned in the AP dimension. There is moderate sl iding gastroesophageal hiatal hernia. There is mild to moderate left L5-S1 neural foraminal stenosi s, the most narrowed level. Sacroiliac joints are unremarkable. IMPRESSION: 1. Interval progression of L2 burst fracture with sclerosis, healing response but also could have an acute component. Only minimal retropulsion. 2. Chronic T11 and T12 burst fractures. Reviewed, dictated and finalized at location B.
[2021-11-02 13:55] VITALS: BP 157/88; PULSE 83; RESP 16; TEMP 36.8; O2SAT 100
--- NOTE | 2021-11-02 14:38 | ED.BACK ---
HPI - Back Pain/Injury General Chief Complaint: Back Pain/Injury Stated Complaint: BACK PAIN Time Seen by Provider: 11/02/21 14:27 History of Present Illness HPI Narrative: 81-year-old female presents the emergency room with complaints of lower back pain. Patient states that she was attempting to lift her commode 1 week ago, when she began to experience pain patient has been evaluated to previous occasions recently for low back pain. Approximately 6 weeks ago was diagnosed with a L2 burst fracture. Patient states that she has no longer wearing her back brace. Patient has been taking Tylenol with codeine with no relief of symptoms. Related Data Home Medications Medication Instructions Recorded Confirmed Spiriva Respimat 2 puff INHALATION DAILY 07/22/20 07/23/20 albuterol sulfate 2 puff INHALATION PRN PRN 07/22/20 07/23/20 metoprolol succinate 100 mg PO DAILY 07/22/20 07/23/20 oxycodone-acetaminophen 1 tablet PO Q12H 07/22/20 07/23/20 aspirin 81 mg PO DAILY 07/23/20 07/23/20 clonazepam 1 mg PO HS 07/23/20 07/23/20 fluticasone propion-salmeterol 1 inh INHALATION DAILY 07/23/20 07/23/20 [Advair Diskus] acetaminophen 500 mg PO Q6H PRN 09/20/21 09/20/21 Allergies Allergy/AdvReac Type Severity Reaction Status Date / Time duloxetine Allergy Intermediate Cough Verified 11/02/21 13:58 quinapril AdvReac Unknown UNKNOWN Verified 11/02/21 13:58 tramadol AdvReac Unknown Verified 11/02/21 13:58 Review of Systems Review of Systems: CONSTITUTIONAL: Denies fever, chills, or sweats. EYES: Denies visual changes, redness, or discharge. ENT: Denies rhinorrhea, congestion, sore throat, or otalgia. CARDIOVASCULAR: Denies chest pain, palpitations, or edema. RESPIRATORY: Denies cough or dyspnea. GASTROINTESTINAL: Denies abdominal pain, nausea, vomiting, or diarrhea. GENITOURINARY: Denies dysuria or hematuria. SKIN: Denies rash or itching. MUSCULOSKELETAL: Reports low back pain NEUROLOGIC: Denies headache, numbness, dizziness, or weakness. PSYCHIATRIC: Denies anxiety or depression. [facility] Past Medical History Medical History Abnormal CT scan, stomach COPD (chronic obstructive pulmonary disease) Gastroesophageal reflux disease Melena Obesity Surgical History Surgical History H/O: hysterectomy Hx of colonoscopy Social History Social History Smoking packs per day: 10 Smoking cigarettes per day: 200.0 Years smoked: 46 Smoking pack-years: 460.00 Smoking status: Former smoker Alcohol intake: never Substance use: never Gender identity (if verbalized by the patient): Female Spiritual care concerns: No Exam Narrative: GENERAL: Ill-appearing, in mild distress HEAD: Normocephalic, atraumatic. EYES: PERRLA and EOMI. CHEST: Clear to auscultation. No respiratory distress. No wheezes rales or rhonchi HEART: Regular rate and rhythm. No murmur heard. Normal peripheral pulses. ABDOMEN: Soft, nontender, nondistended, normal active bowel sounds. EXTREMITIES: Normal range of motion. No edema. BACK: With tenderness to the L2 vertebra, no bony abnormality, limited range of motion due to pain. SKIN: Warm, dry, no rash. NEURO: No focal deficits. Alert and oriented x3. PSYCH: Normal mood and affect. Course Vital Signs Vital signs: Vital Signs Temperature 36.8 C 11/02/21 13:55 Pulse Rate 83 11/02/21 13:55 Respiratory Rate 16 11/02/21 13:55 Blood Pressure 157/88 H 11/02/21 13:55 Pulse Oximetry 100 11/02/21 13:55 Temperature 36.8 C 11/02/21 13:55 Pulse Rate 68 11/02/21 15:23 Respiratory Rate 18 11/02/21 15:23 Blood Pressure 157/88 H 11/02/21 13:55 Pulse Oximetry 100 11/02/21 15:23 MDM - Back Pain/Injury MDM Narrative Medical decision making narrative: 81-year-old female presents the emergency room with complaints of acute
[2021-11-02 15:23] VITALS: PULSE 68; RESP 18; O2SAT 100
--- NOTE | 2021-11-02 15:55 | PC.NURSE ---
PT states she called her to daughter to bring her an oxygen tank.
[2021-11-02 17:25] VITALS: BP 142/78; PULSE 68; RESP 18; O2SAT 98
== END 2021-11-02 17:25 | disposition home or self-care (01) ==
PROVIDERS: Emergency Provider Nurse Practitioner Family; PCP Internal Medicine
DX: M54.50 Low back pain, unspecified (principal); S32.021D Stable burst fracture of second lumbar vertebra, subsequent encounter for fracture with routine healing; J44.9 Chronic obstructive pulmonary disease, unspecified; K21.9 Gastro-esophageal reflux disease without esophagitis; E66.9 Obesity, unspecified; Z68.24 Body mass index [BMI] 24.0-24.9, adult; Z87.891 Personal history of nicotine dependence; Z79.82 Long term (current) use of aspirin; X58.XXXD Exposure to other specified factors, subsequent encounter
CPT/HCPCS: 72131; 99284

== ENCOUNTER 2024-01-16 13:54 | Inpatient (IN) | payer MEDICARE, MEDICAID, SELFPAY ==
[2024-01-16] VITALS (10 sets, daily range): BP systolic 119–151; BP diastolic 55–80; PULSE 73–85; RESP 18–20; TEMP 36.5–37; O2SAT 97–100; BMI 21.5
--- NOTE | ~2024-01-16 | CT_ITS ---
EXAMINATION: CT femur LT wo con DATE: 01/16/2024 15:35 INDICATION: Left hip pain and suspected left femoral fracture TECHNIQUE: High resolution computed tomography (CT) of the left femur was performed without intraveno us contrast. Additional sagittal and coronal reconstructions were performed. Automated exposure contr ol and iterative reconstruction technique were employed. The dose-length product was 1194.46 mGy-cm. COMPARISON: CT abdomen and pelvis dated 07/22/2020 FINDINGS: Left total knee arthroplasty which appears well seated in near-anatomic alignment. No periprosthetic lucency to suggest loosening or infection. No left knee joint effusion. Mild distraction of a mildly comminuted likely avulsion fracture extending across the caudal aspect of the left greater trochanter . No evident extension across the weightbearing axis of the femur. No other fractures identified. Mil d osteoarthritis at the left hip with no joint effusion. Guerrero catheter in the decompressed bladder. The uterus is not identified and has likely been surgically resected. There are few diverticula al raymon the sigmoid colon. There is a rectosigmoid anastomotic suture line. No pathologically enlarged le ft pelvic or inguinal lymphadenopathy. 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 Subcutaneous scarring and some dystrophic calcification at the site o f a left ischial decubitus ulcer. IMPRESSION: 1. Mild distraction of a mildly comminuted likely avulsion fracture involving the cephalad aspect of the left greater trochanter. Reviewed, dictated and finalized at location A. IMPRESSION: 1. Mild distraction of a mildly comminuted likely avulsion fracture involving t he cephalad aspect of the left greater trochanter.
--- NOTE | ~2024-01-16 | XR_ITS ---
AP view of the pelvis and AP and lateral views of the left hip Clinical history: Pain Findings: Possible acute fracture isolated to the left greater trochanter. No intertrochanteric or fe moral neck fracture seen. Bilateral hip and SI joint spaces are preserved. Soft tissues are unremarka ble. Impression: Suspected acute fracture isolated to the left greater trochanter. Reviewed, dictated and finalized at location . Impression: Suspected acute fracture isolated to the left greater trochanter.
--- NOTE | 2024-01-16 14:53 | ECG_ITS ---
Test Date: 2024-01-16 14:58:33 Measurements Intervals [place] Rate: 77 P: 0 [place]: 140 QRS: 20 QRSD: 71 T: 33 QT: 346 QTc: 392 Interpretive Statements SINUS RHYTHM NORMAL ELECTROCARDIOGRAM No previous ECG available for comparison Electronically Signed On 01-17-2024 07:00:16 CDT by Eusebio Parra M.D.
[2024-01-16 15:45] LABS: Alanine Aminotransferase 17 U/L (6-35); Albumin Level 3.9 g/dL (3.5-5.1); Alkaline Phosphatase 76 U/L (38-126); Aspartate Amino Transferase 26 U/L (14-36); Bilirubin,Total 0.8 mg/dL (0.2-1.3); Blood Urea Nitrogen 23 mg/dL (7-17); Calcium 9.4 mg/dL (8.4-10.2); Carbon Dioxide > 40 mmol/L (22-30); Chloride 94 mmol/L (98-107); Estimated CRCL calculation 44 ml/min; Estimated Glomerular Filt Rate > 60; Glucose 109 mg/dL (65-110); Sodium 139 mmol/L (137-145)
[2024-01-16] MEDS: MORPHINE SULFATE (*CRX) 2 MG/ML INJ IV PUSH ×2 (15:50→20:19)
[2024-01-16 15:53] LABS: Basophils Percent Auto 0.2 % (0.2-1.2); Eosinophils Absolute Auto 0.1 K/mm3 (0-0.3); Eosinophils Percent Auto 1.2 % (0-4.4); Hematocrit 35.7 % (37.0-47.0); Hemoglobin 11.9 g/dL (12.0-15.0); Immature Granulocyte Absolute 0.02 K/mm3 (0.00-0.031); Immature Granulocyte Percent A 0.3 % (0-0.5); Lymphocytes Absolute Auto 1.46 K/mm3 (0.9-3.2); Lymphocytes Percent Auto 24.8 % (18.3-44.2); Mean Corpuscular HGB Conc 33.3 g/dl (32-36); Mean Corpuscular Hemoglobin 32.3 pg (26-34); Mean Platelet Volume 9.5 fl (7.4-10.4); Monocytes Absolute Auto 0.4 K/mm3 (0.1-0.6); Monocytes Percent Auto 7.1 % (2.6-8.5); Neutrophils Absolute Auto 3.9 K/mm3 (1.3-6.7); Neutrophils Percent Auto 66.4 % (45.5-73.1); Platelet Count Result 166 k/mm3 (150-375); Red Blood Count 3.68 M/mm3 (4.2-5.4); Red Cell Distribution Width 11.9 % (11.5-14.5); White Blood Count 5.9 K/mm3 (4.5-10.0)
[2024-01-16] MEDS: ONDANSETRON INJ 4 MG/2 ML VIAL IV PUSH ×2 (15:57→20:19)
[2024-01-16 16:03] LABS: Partial Thromboplastin Time 27.6 Seconds (22.3-36.8)
--- NOTE | 2024-01-16 17:37 | ED.FALL ---
HPI - Fall General Chief Complaint: Fall Stated Complaint: fall Time Seen by Provider: 01/16/24 14:54 Source: patient Mode of arrival: EMS Limitations: no limitations History of Present Illness HPI Narrative: 83-year-old with a history of COPD, GERD was brought in from home with the complaints of fall. Patient states that she was trying to pick something lost balance and fell on her left hip she denied any head and neck injuries. No loss of consciousness. MD complaint: fall Onset (ago): hour(s) (1) Fall from: standing Fall witnessed: yes, by family Place fall occurred: home Loss of consciousness: none Context: tripped/slipped Severity: moderate Quality: aching Associated symptoms (after fall): denies Related Data Home Medications Medication Instructions Recorded Confirmed albuterol sulfate 90 mcg/actuation 2 puff inhalation PRN PRN 07/22/20 07/23/20 aerosol inhaler Shortness Of Breath metoprolol succinate 100 mg 100 mg PO DAILY 07/22/20 07/23/20 tablet,extended release 24 hr oxycodone-acetaminophen 10 mg-325 1 tablet PO Q12H 07/22/20 07/23/20 mg tablet tiotropium bromide 2.5 2 puff inhalation DAILY 07/22/20 07/23/20 mcg/actuation mist for inhalation (Spiriva Respimat) aspirin 81 mg tablet 81 mg PO DAILY 07/23/20 07/23/20 clonazepam 1 mg tablet 1 mg PO HS 07/23/20 07/23/20 fluticasone 500 mcg-salmeterol 50 1 inh inhalation DAILY 07/23/20 07/23/20 mcg/dose blistr powdr for inhalation (Advair Diskus) acetaminophen 500 mg tablet 500 mg PO Q6H PRN pain 09/20/21 09/20/21 Allergies Allergy/AdvReac Type Severity Reaction Status Date / Time duloxetine Allergy Intermediate Cough Verified 01/16/24 14:03 quinapril AdvReac Unknown UNKNOWN Verified 01/16/24 14:03 tramadol AdvReac Dizziness Verified 01/16/24 15:27 Review of Systems Review of Systems: All systems reviewed & are unremarkable except as noted in HPI and below Constitutional: Constitutional: Reports no additional constitutional complaints Eyes: Eyes: Reports no additional eye complaints ENT: Reports system reviewed and no additional complaints, except as documented Cardiovascular: Cardiovascular: Reports no additional cardiovascular complaints Respiratory: Respiratory: Reports no additional respiratory complaints Musculoskeletal: Musculoskeletal: Reports as per HPI Neurologic: Reports system reviewed and no additional complaints, except as documented PMFSH Past Medical History Medical History Abnormal CT scan, stomach COPD (chronic obstructive pulmonary disease) Gastroesophageal reflux disease Melena Obesity Surgical History Surgical History H/O: hysterectomy Hx of colonoscopy Social History Social History Smoking packs per day: 10 Smoking cigarettes per day: 200.0 Years smoked: 46 Smoking pack-years: 460.00 Smoking status: Former smoker Alcohol intake: never Substance use: never Gender identity (if verbalized by the patient): Female Spiritual care concerns: No Exam Narrative: GENERAL: Well-appearing, well-nourished, and in no acute distress. HEAD: Normocephalic, atraumatic. EYES: PERRLA and EOMI. ENT: Nares clear, no rhinorrhea or epistaxis. Mucous membranes moist. NECK: Supple. CHEST: Clear to auscultation. No respiratory distress. HEART: Regular rate and rhythm. No murmur heard. Normal peripheral pulses. ABDOMEN: Soft, nontender, nondistended, normal active bowel sounds. EXTREMITIES: Normal range of motion. No edema, marked tenderness in the left hip SKIN: Warm, dry, no rash. NEURO: No focal deficits. Alert and oriented x3. PSYCH: Normal mood and affect. Course Course Emergency Course: Notified patient and her daughter about the lab work, CT and x-ray findings. I discussed with Dr. Del Valle will consult the patient discussed w
--- NOTE | 2024-01-16 18:04 | PM.IMHP ---
H&P: HPI History of Present Illness Date/Time: 01/16/24 18:04 Chief Complaint: Fall Narrative: 83 y/o F presents here with left hip pain with PMH of COPD (on supplemental O2 at baseline), GERD, and obesity. The patient presents here via EMS from home for further evaluation of left hip pain S/P mechanical ground level fall. The patient reports that she was picking up her dog this afternoon when she lost her balance and fell onto her left side. She denies head strike, loss of consciousness, or syncope. Immediately after fall she had left hip pain and was able/unable to ambulate post fall. No left lower extremity shortening and rotation on exam. Denies numbness and tingling to the left lower extremity. At baseline the patient does not use an assistive device at home, will occasionally use a wheelchair when she has to go to an appointment or if she has to travel long distances. Reports 1 falls in the last 3 months. Initial VS at presentation: 97.7? F, HR 973, RR 20, 150/67, and 99% on 3L nasal cannula. ED workup showed: No leukocytosis, hemoglobin 11.9, normal coags, potassium 3.0, creatinine 0.6 and GFR >60. XR of the hips/pelvis showed suspected acute fracture isolated to left greater trochanter. CT of the femur showed mild distraction of a mildly comminuted likely avulsion fracture involving the cephalad aspect of the left greater trochanter. Review of Systems Review of Systems: All systems reviewed & are unremarkable except as noted in HPI and below PMFSH Past Medical History Medical History Anemia COPD (chronic obstructive pulmonary disease) Gastroesophageal reflux disease Melena Obesity Ovarian cyst Surgical History Surgical History H/O: hysterectomy Hx of colonoscopy Social History Social History Smoking packs per day: 10 Smoking cigarettes per day: 200.0 Years smoked: 46 Smoking pack-years: 460.00 Smoking status: Former smoker Alcohol intake: never Substance use: never Substance use type: does not use Do You Feel Safe in your Home?: Yes Lack of Transportation: No Lack of Food: Never True Current Housing: I Have Housing Concerned About Future Housing: No Difficulty Paying Gas/Electric Bills: No Difficulty Paying for Meds: No Currently Unemployed: No Education: High School Diploma/GED Difficulty w/ Childcare or Family Care: No Gender identity (if verbalized by the patient): Female Spiritual care concerns: No Meds Home Medications and Allergies Home Medications Medication Instructions Recorded Confirmed Type albuterol sulfate 90 mcg/actuation 2 puff inhalation PRN PRN 07/22/20 01/16/24 History aerosol inhaler Shortness Of Breath metoprolol succinate 100 mg 100 mg PO DAILY 07/22/20 01/16/24 History tablet,extended release 24 hr tiotropium bromide 2.5 2 puff inhalation DAILY 07/22/20 01/16/24 History mcg/actuation mist for inhalation (Spiriva Respimat) aspirin 81 mg tablet 81 mg PO DAILY 07/23/20 01/16/24 History fluticasone 500 mcg-salmeterol 50 1 inh inhalation DAILY 07/23/20 01/16/24 History mcg/dose blistr powdr for inhalation (Advair Diskus) pantoprazole 40 mg tablet,delayed 40 mg PO QAM #30 tabs 07/25/20 01/16/24 Rx release acetaminophen 500 mg tablet 500 mg PO Q6H PRN pain 09/20/21 01/16/24 History hydrocodone 5 mg-acetaminophen 325 1 tablet PO Q8H PRN pain #14 tabs 09/20/21 01/16/24 Rx mg tablet lidocaine 5 % topical patch 1 patch topical DAILY #15 ea 09/22/21 01/16/24 Rx (Lidoderm) Allergies Allergy/AdvReac Type Severity Reaction Status Date / Time duloxetine Allergy Intermediate Cough Verified 01/16/24 14:03 quinapril AdvReac Unknown UNKNOWN Verified 01/16/24 14:03 tramadol AdvReac Dizziness Verified 01/16/24 15:27 Vital Signs Vital Signs
[2024-01-16] MEDS: HYDROcodone/acetaminophen (*CRX) 5-325 MG TABLET 1 TAB PO (18:11)
--- NOTE | 2024-01-16 18:28 | ADMGEN ---
This patient, Phoebe Hillman, was admitted to 2 Medical Room 254-01. Patient/family oriented to hospital policies and general routines including ID bracelet, bed and alarms, visiting hours, pain management, procedures, bathroom and other care routines, personal items, smoking policy, room service/diet, and visiting hours. Information on how to activate the Rapid Response Team has been discussed. Patient/Family are encouraged to report perceived risks to care and to ask questions if they do not understand what they are told or what they should do.
[2024-01-17] VITALS (9 sets, daily range): BP systolic 115–136; BP diastolic 48–77; PULSE 63–77; RESP 16–18; TEMP 36.6–36.8; O2SAT 97–100
[2024-01-17] MEDS: ACETAMINOPHEN 325 MG TABLET 650 MG PO (00:55)
[2024-01-17] MEDS: CALCIUM CARBONATE (TUMS) 500 MG (200 MG ELEMENTAL) PO (00:55)
[2024-01-17] MEDS: ONDANSETRON INJ 4 MG/2 ML VIAL IV PUSH (01:11)
[2024-01-17] MEDS: MORPHINE SULFATE (*CRX) 2 MG/ML INJ IV PUSH (01:15)
[2024-01-17] MEDS: FLUTICASONE/SALMETEROL 230-21 MCG INHALER 1 PUFF 2 PUFF INHALATION ×2 (07:55→21:32)
[2024-01-17] MEDS: UMECLIDINIUM BROMIDE 62.5 MCG ELLIPTA 1 PUFF INHALATION (07:57)
[2024-01-17] MEDS: LIDOCAINE 5% PATCH 1 PATCH TOPICAL (08:14)
[2024-01-17] MEDS: METOPROLOL SUCCINATE EXT REL 100 MG TABCR PO (08:14)
[2024-01-17] MEDS: ASPIRIN 81 MG ENTERIC TABLET PO (08:14)
[2024-01-17] MEDS: PANTOPRAZOLE 40 MG TABLET PO (08:15)
[2024-01-17] MEDS: HYDROcodone/acetaminophen (*CRX) 5-325 MG TABLET 1 TAB PO ×3 (08:15→23:17)
--- NOTE | 2024-01-17 08:54 | PM.IMPN ---
Progress Note: A&P Assessment and Plan (1) Closed trochanteric fracture of femur: Qualifiers: Encounter type: initial encounter Laterality: left Qualified Code(s): S72.102A - Unspecified trochanteric fracture of left femur, initial encounter for closed fracture Code(s): S72.109A - Unspecified trochanteric fracture of unspecified femur, initial encounter for closed fracture Status: Acute (2) COPD (chronic obstructive pulmonary disease): Qualifiers: COPD type: unspecified COPD Qualified Code(s): J44.9 - Chronic obstructive pulmonary disease, unspecified Code(s): J44.9 - Chronic obstructive pulmonary disease, unspecified Status: Chronic (3) Chronic respiratory failure with hypoxia: Code(s): J96.11 - Chronic respiratory failure with hypoxia Status: Acute Plan Closed Trochanteric fracture of the femur XR hip/pelvis: Suspected acute fracture isolated to the left greater trochanter. CT femur: Mild distraction of a mildly comminuted likely avulsion fracture involving the cephalad aspect of the left greater trochanter. ortho consulted, ED spoke with on-call orthopedist who reported fracture was non-operative supportive management PT/OT eval and treat resume diet pain management zofran PRN for nausea incentive spirometer chronic respiratory failure with hypoxia secondary to patient's COPD stable continue with patient's supplemental oxygen 3 L nasal cannula wears at home incentive spirometer Hypokalemia 3.0 POA replenished monitor and replenish to keep K+>4.0 Code status: Full code per patient DVT prophylaxis: SCD's HX of anemia Stress ulcer prophylaxis: Protonix 40 daily PT/OT notes: Pending evaluation Disposition: patient was admitted to the medical-surgical unit after a fall at home that caused a Trochanteric fracture of the femur, per Orthopedics in a couple at this time will get PT/OT evaluation see if patient will need rehab services at discharge. Time Spent With Patient Time with patient: 15 - 25 minutes Subjective Date/time seen: 01/17/24 08:54 Interval history: Admission: Medical Chart Chief Complaint: Fall Narrative: 83 y/o F presents here with left hip pain with PMH of COPD (on supplemental O2 at baseline), GERD, and obesity. The patient presents here via EMS from home for further evaluation of left hip pain S/P mechanical ground level fall. The patient reports that she was picking up her dog this afternoon when she lost her balance and fell onto her left side. She denies head strike, loss of consciousness, or syncope. Immediately after fall she had left hip pain and was able/unable to ambulate post fall. No left lower extremity shortening and rotation on exam. Denies numbness and tingling to the left lower extremity. At baseline the patient does not use an assistive device at home, will occasionally use a wheelchair when she has to go to an appointment or if she has to travel long distances. Reports 1 falls in the last 3 months. Initial VS at presentation: 97.7? F, HR 973, RR 20, 150/67, and 99% on 3L nasal cannula. ED workup showed: No leukocytosis, hemoglobin 11.9, normal coags, potassium 3.0, creatinine 0.6 and GFR >60. XR of the hips/pelvis showed suspected acute fracture isolated to left greater trochanter. CT of the femur showed mild distraction of a mildly comminuted likely avulsion fracture involving the cephalad aspect of the left greater trochanter. 01/16: Patient doing well today still with moderate pain with movement. Worked with PT and was able to ambulate would likek to return home with home health. K+ 3.0 will replenish otherwise labs unremarkable. No other complaints at this time continue with PT, wears 3.5 L oxygen at home stable respiratory status. Review of Systems Review of Systems: All systems reviewed & are unremarkable except as noted
[2024-01-17 09:32] LABS: Mean Corpuscular HGB Conc 33.3 g/dl (32-36); Mean Corpuscular Hemoglobin 31.9 pg (26-34); Mean Corpuscular Volume 95.7 fl (80-100); Mean Platelet Volume 9.4 fl (7.4-10.4); Platelet Count Result 171 k/mm3 (150-375); Red Blood Count 3.76 M/mm3 (4.2-5.4); Red Cell Distribution Width 11.7 % (11.5-14.5); White Blood Count 8.1 K/mm3 (4.5-10.0)
--- NOTE | 2024-01-17 09:36 | PM.PNORT ---
Subjective Subjective Date/Time Seen: 01/17/24 09:36 Objective Data Vital Signs Vital Signs: Vital Signs - 24 hr 01/16/24 13:56 01/16/24 15:48 01/16/24 16:01 Temperature 36.5 C Pulse Rate 73 80 Respiratory Rate 20 20 Blood Pressure 150/67 H 139/73 135/74 Pulse Oximetry 99 100 99 Oxygen Delivery Nasal Cannula Oxygen Flow Rate 3 01/16/24 16:16 01/16/24 16:31 01/16/24 16:46 Temperature Pulse Rate Respiratory Rate Blood Pressure 151/80 H 119/60 138/75 Pulse Oximetry 100 98 98 Oxygen Delivery Oxygen Flow Rate 01/16/24 17:46 01/16/24 18:01 01/16/24 18:50 Temperature 37.0 C Pulse Rate 80 Respiratory Rate 18 Blood Pressure 131/66 119/66 134/55 L Pulse Oximetry 100 99 100 Oxygen Delivery Oxygen Flow Rate 01/16/24 20:04 01/17/24 06:00 01/17/24 08:01 Temperature 36.9 C 36.7 C Pulse Rate 85 65 Respiratory Rate 18 18 Blood Pressure 134/68 115/48 L Pulse Oximetry 97 97 97 Oxygen Delivery Nasal Cannula Oxygen Flow Rate 3.5 01/17/24 08:12 01/17/24 08:14 Temperature Pulse Rate 73 73 Respiratory Rate Blood Pressure 128/58 L Pulse Oximetry Oxygen Delivery Oxygen Flow Rate Intake/Output Intake/Output: Intake & Output 01/14/24 01/15/24 01/16/24 01/17/24 23:59 23:59 23:59 23:59 Intake Total 240 Output Total 1240 Balance -1000 Meds/Results Medications: Active Medications Generic Name Dose Route Start Last Admin Trade Name Freq PRN Reason Stop Dose Admin Acetaminophen 650 mg 01/16/24 17:43 01/17/24 00:55 Acetaminophen 325 Mg Tablet PO 650 mg Q4H PRN Administration Mild Pain (1-3) or Fever Hydrocodone Bitart/Acetaminophen 1 tab 01/16/24 17:43 01/17/24 08:15 Hydrocodone/Acetaminophen (*Crx) 5-325 Mg Tablet PO 1 tab Q4H PRN Administration Pain Rated 4-6 Albuterol 2 puff 01/16/24 23:46 Albuterol Sulfate (*Sp) Aerosol 1 Puff INHALATION Q4H PRN Shortness Of Breath Aspirin 81 mg 01/17/24 09:00 01/17/24 08:14 Aspirin 81 Mg Enteric Tablet PO 81 mg QAM CHET Administration Calcium Carbonate 200 mg 01/17/24 00:29 01/17/24 00:55 Calcium Carbonate (Tums) 500 Mg (200 Mg Elemental) PO 200 mg Q6H PRN Administration Indigestion Lidocaine 1 patch 01/17/24 09:00 01/17/24 08:14 Lidocaine 5% Patch TOPICAL 1 patch DAILY CHET Administration Metoprolol Succinate 100 mg 01/17/24 09:00 01/17/24 08:14 Metoprolol Succinate Ext Rel 100 Mg Tabcr PO 100 mg DAILY CHET Administration Miscellaneous Information 0 each 01/16/24 00:01 01/16/24 23:54 Lidocaine Patch - Please Add Application Site To Order Comments XX 02/15/24 00:00 Not Given CLARIFY CHET Morphine Sulfate 2 mg 01/16/24 18:46 01/17/24 01:15 Morphine Sulfate (*Crx) 2 Mg/Ml Inj IV PUSH 2 mg Q4H PRN Administration Pain Rated 7-10 Ondansetron HCl 4 mg 01/16/24 17:43 01/17/24 01:11 Ondansetron Inj 4 Mg/2 Ml Vial IV PUSH 4 mg Q4H PRN Administration Nausea Pantoprazole Sodium 40 mg 01/17/24 09:00 01/17/24 08:15 Pantoprazole 40 Mg Tablet PO 40 mg QAM CHET Administration Fluticasone/Salmeterol 2 puff 01/17/24 08:00 01/17/24 07:55 Fluticasone/Salmeterol 230-21 Mcg Inhaler 1 Puff INHALATION 2 puff Q12HRT CHET Administration Umeclidinium [place] 1 puff 01/17/24 08:00 01/17/24 07:57 Umeclidinium [place] 62.5 Mcg Ellipta INHALATION 1 puff DAILYRT CHTE Administration Radiology Results: ITS Impressions Hip/Pelvis X-Ray 01/16/24 14:33 Impression: Suspected acute fracture isolated to the left greater trochanter. Femur CT 01/16/24 15:38 IMPRESSION: 1. Mild distraction of a mildly comminuted likely avulsion fracture involving the cephalad aspect of the left greater trochanter. Labs Labs: Laboratory Results - last 24 hr 01/16/24 01/16/24 15:13 15:45 WBC 5.9 RBC 3.68 L Hgb 11.9 L Hct 35.7 L MCV
[2024-01-17 09:50] LABS: Alanine Aminotransferase 17 U/L (6-35); Albumin Level 4.1 g/dL (3.5-5.1); Alkaline Phosphatase 75 U/L (38-126); Aspartate Amino Transferase 23 U/L (14-36); Bilirubin,Total 0.9 mg/dL (0.2-1.3); Blood Urea Nitrogen 23 mg/dL (7-17); Calcium 9.4 mg/dL (8.4-10.2); Carbon Dioxide > 40 mmol/L (22-30); Chloride 89 mmol/L (98-107); Estimated CRCL calculation 44 ml/min; Estimated Glomerular Filt Rate > 60; Glucose 130 mg/dL (65-110); Sodium 137 mmol/L (137-145)
--- NOTE | 2024-01-17 09:54 | PM.CNOR ---
Assessment and Plan Assessment and plan (1) Greater trochanter fracture: Qualifiers: Encounter type: initial encounter Fracture type: closed Fracture alignment: displaced Laterality: left Qualified Code(s): S72.112A - Displaced fracture of greater trochanter of left femur, initial encounter for closed fracture Code(s): S72.113A - Displaced fracture of greater trochanter of unspecified femur, initial encounter for closed fracture Status: Acute Assessment and Plan: 83 year old female admitted s/p fall at home onto the left side resulting in left hip pain. History, exam and radiographs reviewed with the patient. CT scan of the left hip reveals mild distraction of a mildly comminuted likely avulsion fracture involving the cephalad aspect of the left greater trochanter. The fracture type and injury as well as radiographs discussed with the patient. Operative and nonoperative treatment options reviewed. Recommended non operative treatment. Risk of nonunion, malunion or late displacement discussed. Stiffness, pain and possible dysfunction of the joint discussed. Fracture precautions and activity restrictions reviewed. The patient verbalizes understanding. Pain control. PT/OT. WBAT. Walker for fall prevention. Ice. Pain patch. Dispo: Home with Home Health vs. [facility] pending progress with PT/OT. Will arrange f/u in the outpatient orthopedic clinic in 6 weeks for repeat radiographs. Plan Reviewed history, exam, radiographs and current labs with attending MD and covering surgeon, Dr. Del Valle, who agrees with current plan as indicated above. No further recommendations from Dr. Del Valle at this time. History of Present Illness HPI Consult date: 01/17/24 Chief complaint: trochanteric fracture left Narrative: 83 y/o female admitted s/p ground level fall at home while picking up her dog. This resulted in left hip pain. She was unable to ambulate due to pain. Radiographs and CT scan of the left hip obtained in the ER. CT scan revealed mild distraction of a mildly comminuted avulsion fracture involving the cephalad aspect of the left greater trochanter. Orthopedic consult requested. Patient admitted for further evaluation and PT/OT. [facility] Past Medical History Medical History (Updated 01/17/24 @ 10:18 by CORNELIUS Littlejohn) Anemia COPD (chronic obstructive pulmonary disease) Gastroesophageal reflux disease Greater trochanter fracture Melena Obesity Ovarian cyst Surgical History Surgical History H/O: hysterectomy Hx of colonoscopy Social History Social History Smoking packs per day: 10 Smoking cigarettes per day: 200.0 Years smoked: 46 Smoking pack-years: 460.00 Smoking status: Former smoker Alcohol intake: never Substance use: never Substance use type: does not use Do You Feel Safe in your Home?: Yes Lack of Transportation: No Lack of Food: Never True Current Housing: I Have Housing Concerned About Future Housing: No Difficulty Paying Gas/Electric Bills: No Difficulty Paying for Meds: No Currently Unemployed: No Education: High School Diploma/GED Difficulty w/ Childcare or Family Care: No Gender identity (if verbalized by the patient): Female Spiritual care concerns: No Meds Home Medications and Allergies Home Medications Medication Instructions Recorded Confirmed Type albuterol sulfate 90 mcg/actuation 2 puff inhalation PRN PRN 07/22/20 01/16/24 History aerosol inhaler Shortness Of Breath metoprolol succinate 100 mg 100 mg PO DAILY 07/22/20 01/16/24 History tablet,extended release 24 hr tiotropium bromide 2.5 2 puff inhalation DAILY 07/22/20 01/16/24 History mcg/actuation mist for inhalation (Spiriva Respimat) aspirin 81 mg tablet 81 mg PO DAILY 07/23/20 01/16/24 History fluticasone 500 mcg-salmeterol 50 1 inh inhalation DAILY
[2024-01-17] MEDS: POTASSIUM CHLORIDE INJ 40 MEQ in SODIUM CHLORIDE 0.9% IV 500 ML 130 MEQ IVPB (12:43)
[2024-01-17] MEDS: POTASSIUM CHLORIDE 20 MEQ ER TABLET 40 MEQ PO (17:55)
[2024-01-17] MEDS: MELATONIN 5 MG TABLET PO (21:27)
[2024-01-18] VITALS (7 sets, daily range): BP systolic 114–120; BP diastolic 42–54; PULSE 73–84; RESP 16–18; TEMP 36.7–37.1; O2SAT 98–100
[2024-01-18] MEDS: HYDROcodone/acetaminophen (*CRX) 5-325 MG TABLET 1 TAB PO ×3 (04:30→19:56)
[2024-01-18 05:17] LABS: Hematocrit 36.9 % (37.0-47.0); Hemoglobin 12.2 g/dL (12.0-15.0); Mean Corpuscular HGB Conc 33.1 g/dl (32-36); Mean Corpuscular Hemoglobin 32.4 pg (26-34); Mean Corpuscular Volume 97.9 fl (80-100); Mean Platelet Volume 10.7 fl (7.4-10.4); Platelet Count Result 120 k/mm3 (150-375); Red Blood Count 3.77 M/mm3 (4.2-5.4); Red Cell Distribution Width 11.8 % (11.5-14.5); White Blood Count 7.2 K/mm3 (4.5-10.0)
[2024-01-18 05:28] LABS: Alanine Aminotransferase 15 U/L (6-35); Albumin Level 3.8 g/dL (3.5-5.1); Alkaline Phosphatase 69 U/L (38-126); Anion Gap 4 mmol/L (4-12); Aspartate Amino Transferase 24 U/L (14-36); Bilirubin,Total 0.8 mg/dL (0.2-1.3); Blood Urea Nitrogen 22 mg/dL (7-17); Calcium 9.1 mg/dL (8.4-10.2); Carbon Dioxide 38 mmol/L (22-30); Chloride 94 mmol/L (98-107); Estimated CRCL calculation 52 ml/min; Estimated Glomerular Filt Rate > 60; Glucose 105 mg/dL (65-110); Potassium 3.8 mmol/L (3.4-5.0); Sodium 136 mmol/L (137-145)
[2024-01-18] MEDS: UMECLIDINIUM BROMIDE 62.5 MCG ELLIPTA 1 PUFF INHALATION (07:34)
[2024-01-18] MEDS: FLUTICASONE/SALMETEROL 230-21 MCG INHALER 1 PUFF 2 PUFF INHALATION ×2 (07:34→20:30)
[2024-01-18] MEDS: METOPROLOL SUCCINATE EXT REL 100 MG TABCR PO (08:48)
[2024-01-18] MEDS: PANTOPRAZOLE 40 MG TABLET PO (08:48)
[2024-01-18] MEDS: LIDOCAINE 5% PATCH 1 PATCH TOPICAL (08:48)
[2024-01-18] MEDS: ASPIRIN 81 MG ENTERIC TABLET PO (08:48)
--- NOTE | 2024-01-18 09:05 | PM.IMPN ---
Progress Note: A&P Assessment and Plan (1) Closed trochanteric fracture of femur: Qualifiers: Encounter type: initial encounter Laterality: left Qualified Code(s): S72.102A - Unspecified trochanteric fracture of left femur, initial encounter for closed fracture Code(s): S72.109A - Unspecified trochanteric fracture of unspecified femur, initial encounter for closed fracture Status: Acute (2) COPD (chronic obstructive pulmonary disease): Qualifiers: COPD type: unspecified COPD Qualified Code(s): J44.9 - Chronic obstructive pulmonary disease, unspecified Code(s): J44.9 - Chronic obstructive pulmonary disease, unspecified Status: Chronic (3) Chronic respiratory failure with hypoxia: Code(s): J96.11 - Chronic respiratory failure with hypoxia Status: Acute Plan Closed Trochanteric fracture of the femur XR hip/pelvis: Suspected acute fracture isolated to the left greater trochanter. CT femur: Mild distraction of a mildly comminuted likely avulsion fracture involving the cephalad aspect of the left greater trochanter. ortho consulted, ED spoke with on-call orthopedist who reported fracture was non-operative supportive management PT/OT eval and treat resume diet pain management zofran PRN for nausea incentive spirometer chronic respiratory failure with hypoxia secondary to patient's COPD stable continue with patient's supplemental oxygen 3 L nasal cannula wears at home incentive spirometer Hypokalemia 3.0 POA replenished monitor and replenish to keep K+>4.0 Code status: Full code per patient DVT prophylaxis: SCD's HX of anemia Stress ulcer prophylaxis: Protonix 40 daily PT/OT notes: Pending evaluation: SNF Disposition: patient was admitted to the medical-surgical unit after a fall at home that caused a Trochanteric fracture of the femur, per Orthopedics weight bearing as tolerating. Patient wanting to go home with HH will continue to manage pain with ambulation. Time Spent With Patient Time with patient: 15 - 25 minutes Subjective Date/time seen: 01/18/24 09:05 Interval history: Admission: Medical Chart Chief Complaint: Fall Narrative: 83 y/o F presents here with left hip pain with PMH of COPD (on supplemental O2 at baseline), GERD, and obesity. The patient presents here via EMS from home for further evaluation of left hip pain S/P mechanical ground level fall. The patient reports that she was picking up her dog this afternoon when she lost her balance and fell onto her left side. She denies head strike, loss of consciousness, or syncope. Immediately after fall she had left hip pain and was able/unable to ambulate post fall. No left lower extremity shortening and rotation on exam. Denies numbness and tingling to the left lower extremity. At baseline the patient does not use an assistive device at home, will occasionally use a wheelchair when she has to go to an appointment or if she has to travel long distances. Reports 1 falls in the last 3 months. Initial VS at presentation: 97.7? F, HR 973, RR 20, 150/67, and 99% on 3L nasal cannula. ED workup showed: No leukocytosis, hemoglobin 11.9, normal coags, potassium 3.0, creatinine 0.6 and GFR >60. XR of the hips/pelvis showed suspected acute fracture isolated to left greater trochanter. CT of the femur showed mild distraction of a mildly comminuted likely avulsion fracture involving the cephalad aspect of the left greater trochanter. 01/16: Patient doing well today still with moderate pain with movement. Worked with PT and was able to ambulate would likek to return home with home health. K+ 3.0 will replenish otherwise labs unremarkable. No other complaints at this time continue with PT, wears 3.5 L oxygen at home stable respiratory status. 01/17: Patient doing well is using walker to ambulate pain is still moderate with ambulatio
[2024-01-18] MEDS: ACETAMINOPHEN 325 MG TABLET 650 MG PO (17:23)
[2024-01-19] VITALS (9 sets, daily range): BP systolic 94–133; BP diastolic 53–70; PULSE 80–88; RESP 18–20; TEMP 36.4–36.9; O2SAT 98–100
[2024-01-19] MEDS: HYDROcodone/acetaminophen (*CRX) 5-325 MG TABLET 1 TAB PO (01:50)
[2024-01-19 04:57] LABS: Hemoglobin 10.5 g/dL (12.0-15.0); Mean Corpuscular HGB Conc 32.8 g/dl (32-36); Mean Corpuscular Hemoglobin 31.9 pg (26-34); Mean Corpuscular Volume 97.3 fl (80-100); Mean Platelet Volume 9.7 fl (7.4-10.4); Platelet Count Result 159 k/mm3 (150-375); Red Blood Count 3.29 M/mm3 (4.2-5.4); Red Cell Distribution Width 11.9 % (11.5-14.5); White Blood Count 5.8 K/mm3 (4.5-10.0)
[2024-01-19 05:13] LABS: Alanine Aminotransferase 13 U/L (6-35); Albumin Level 3.7 g/dL (3.5-5.1); Alkaline Phosphatase 69 U/L (38-126); Aspartate Amino Transferase 19 U/L (14-36); Bilirubin,Total 0.5 mg/dL (0.2-1.3); Blood Urea Nitrogen 19 mg/dL (7-17); Calcium 8.9 mg/dL (8.4-10.2); Carbon Dioxide > 40 mmol/L (22-30); Chloride 93 mmol/L (98-107); Estimated CRCL calculation 52 ml/min; Estimated Glomerular Filt Rate > 60; Glucose 114 mg/dL (65-110); Potassium 3.1 mmol/L (3.4-5.0); Sodium 138 mmol/L (137-145)
[2024-01-19] MEDS: UMECLIDINIUM BROMIDE 62.5 MCG ELLIPTA 1 PUFF INHALATION (07:29)
[2024-01-19] MEDS: FLUTICASONE/SALMETEROL 230-21 MCG INHALER 1 PUFF 2 PUFF INHALATION ×2 (07:29→20:49)
--- NOTE | 2024-01-19 08:56 | P.PNIM_ITS ---
Progress Note: A&P Assessment and Plan (1) Closed trochanteric fracture of femur: Qualifiers: Encounter type: initial encounter Laterality: left Qualified Code(s): S72.102A - Unspecified trochanteric fracture of left femur, initial encounter for closed fracture Code(s): S72.109A - Unspecified trochanteric fracture of unspecified femur, initial encounter for closed fracture Status: Acute (2) COPD (chronic obstructive pulmonary disease): Qualifiers: COPD type: unspecified COPD Qualified Code(s): J44.9 - Chronic obstructive pulmonary disease, unspecified Code(s): J44.9 - Chronic obstructive pulmonary disease, unspecified Status: Chronic (3) Chronic respiratory failure with hypoxia: Code(s): J96.11 - Chronic respiratory failure with hypoxia Status: Acute Plan Closed Trochanteric fracture of the femur * XR hip/pelvis: Suspected acute fracture isolated to the left greater trochanter. * CT femur: Mild distraction of a mildly comminuted likely avulsion fracture involving the cephalad aspect of the left greater trochanter. * ortho consulted, ED spoke with on-call orthopedist who reported fracture was non-operative * supportive management * PT/OT eval and treat * resume diet * pain management * zofran PRN for nausea * incentive spirometer chronic respiratory failure with hypoxia * secondary to patient's COPD * stable * continue with patient's supplemental oxygen 3 L nasal cannula wears at home * incentive spirometer Hypokalemia * 3.0 POA * replenished * monitor and replenish to keep K+>4.0 Code status: Full code per patient DVT prophylaxis: SCD's HX of anemia Stress ulcer prophylaxis: Protonix 40 daily PT/OT notes: Pending evaluation: SNF Disposition: patient was admitted to the medical-surgical unit after a fall at home that caused a Trochanteric fracture of the femur, per Orthopedics weight bearing as tolerating. Patient wanting to go home with HH will continue to manage pain with ambulation. Time Spent With Patient Time with patient: 15 - 25 minutes Subjective Date/time seen: 01/19/24 08:56 Interval history: Admission: Medical Chart Chief Complaint: Fall Narrative: 83 y/o F presents here with left hip pain with PMH of COPD (on supplemental O2 at baseline), GERD, and obesity. The patient presents here via EMS from home for further evaluation of left hip pain S/P mechanical ground level fall. The patient reports that she was picking up her dog this afternoon when she lost her balance and fell onto her left side. She denies head strike, loss of consciousness, or syncope. Immediately after fall she had left hip pain and was able/unable to ambulate post fall. No left lower extremity shortening and rotation on exam. Denies numbness and tingling to the left lower extremity. At baseline the patient does not use an assistive device at home, will occasionally use a wheelchair when she has to go to an appointment or if she has to travel long distances. Reports 1 falls in the last 3 months. Initial VS at presentation: 97.7? F, HR 973, RR 20, 150/67, and 99% on 3L nasal cannula. ED workup showed: No leukocytosis, hemoglobin 11.9, normal coags, potassium 3.0, creatinine 0.6 and GFR >60. XR of the hips/pelvis showed suspected acute fracture isolated to left greater trochanter. CT of the femur showed mild distraction of a mildly comminuted likely avulsion fracture involving th
[2024-01-19] MEDS: ASPIRIN 81 MG ENTERIC TABLET PO (09:35)
[2024-01-19] MEDS: METOPROLOL SUCCINATE EXT REL 100 MG TABCR PO (09:35)
[2024-01-19] MEDS: PANTOPRAZOLE 40 MG TABLET PO (09:35)
[2024-01-19] MEDS: oxyCODONE/ACETAMINOPHEN (*CRX) 5-325 MG TABLET 1 TABLET PO ×2 (14:17→22:42)
--- NOTE | 2024-01-19 19:30 | PC.NURSE ---
passed onto night baker nurse of possible rectal prolapse that appears to be new to patient. tissue is pink and moist. attempted to call day hospitalist to notify. shift stacker nurse to call Sulma
[2024-01-19] MEDS: CALCIUM CARBONATE (TUMS) 500 MG (200 MG ELEMENTAL) PO (20:55)
[2024-01-20 05:10] LABS: Hematocrit 33.2 % (37.0-47.0); Hemoglobin 10.8 g/dL (12.0-15.0); Mean Corpuscular HGB Conc 32.5 g/dl (32-36); Mean Corpuscular Volume 98.2 fl (80-100); Mean Platelet Volume 9.7 fl (7.4-10.4); Platelet Count Result 179 k/mm3 (150-375); Red Blood Count 3.38 M/mm3 (4.2-5.4); Red Cell Distribution Width 11.8 % (11.5-14.5); White Blood Count 5.2 K/mm3 (4.5-10.0)
[2024-01-20 05:27] LABS: Alanine Aminotransferase 14 U/L (6-35); Albumin Level 3.6 g/dL (3.5-5.1); Alkaline Phosphatase 69 U/L (38-126); Aspartate Amino Transferase 18 U/L (14-36); Bilirubin,Total 0.5 mg/dL (0.2-1.3); Blood Urea Nitrogen 19 mg/dL (7-17); Calcium 9.3 mg/dL (8.4-10.2); Carbon Dioxide > 40 mmol/L (22-30); Chloride 95 mmol/L (98-107); Estimated CRCL calculation 52 ml/min; Estimated Glomerular Filt Rate > 60; Glucose 98 mg/dL (65-110); Potassium 3.2 mmol/L (3.4-5.0); Sodium 138 mmol/L (137-145)
[2024-01-20 06:00] VITALS: BP 126/57; PULSE 80; RESP 20; TEMP 36.8; O2SAT 94
[2024-01-20] MEDS: oxyCODONE/ACETAMINOPHEN (*CRX) 5-325 MG TABLET 1 TABLET PO (06:44)
[2024-01-20 08:05] VITALS: PULSE 81; RESP 18; O2SAT 97
[2024-01-20] MEDS: FLUTICASONE/SALMETEROL 230-21 MCG INHALER 1 PUFF 2 PUFF INHALATION (08:05)
[2024-01-20] MEDS: UMECLIDINIUM BROMIDE 62.5 MCG ELLIPTA 1 PUFF INHALATION (08:05)
[2024-01-20 08:45] VITALS: O2SAT 97
[2024-01-20 08:49] VITALS: PULSE 84
[2024-01-20] MEDS: METOPROLOL SUCCINATE EXT REL 100 MG TABCR PO (08:49)
[2024-01-20] MEDS: PANTOPRAZOLE 40 MG TABLET PO (08:49)
[2024-01-20] MEDS: ASPIRIN 81 MG ENTERIC TABLET PO (08:49)
[2024-01-20] MEDS: POTASSIUM CHLORIDE 20 MEQ ER TABLET 40 MEQ PO (08:52)
--- NOTE | 2024-01-20 11:44 | PM.DS ---
DS: Admitting Diagnosis Discharge Date 01/20/24 Admitting Diagnosis Fall, left hip fracture DS: Discharge Diagnosis Discharge Diagnosis (1) Closed trochanteric fracture of femur: Qualifiers: Encounter type: initial encounter Laterality: left Qualified Code(s): S72.102A - Unspecified trochanteric fracture of left femur, initial encounter for closed fracture Code(s): S72.109A - Unspecified trochanteric fracture of unspecified femur, initial encounter for closed fracture Status: Acute (2) COPD (chronic obstructive pulmonary disease): Qualifiers: COPD type: unspecified COPD Qualified Code(s): J44.9 - Chronic obstructive pulmonary disease, unspecified Code(s): J44.9 - Chronic obstructive pulmonary disease, unspecified Status: Chronic (3) Chronic respiratory failure with hypoxia: Code(s): J96.11 - Chronic respiratory failure with hypoxia Status: Acute DS: Summary Hospital Course Hospital Course: This is an 83-year-old female with a past medical history of COPD, GERD and obesity that presented to the ED on 01/16/2024 with chief complaint of left hip pain post ground level fall. Patient denied striking her head, losing consciousness or syncope. Patient does not use any assistive devices at home and will occasionally use a wheelchair when she [facility] appointment. XR of the hips/pelvis showed suspected acute fracture isolated to left greater trochanter. CT of the femur showed mild distraction of a mildly comminuted likely avulsion fracture involving the cephalad aspect of the left greater trochanter. Orthopedics consulted. On-call orthopedist is deemed the fracture non operative. Ortho recommended pain control, PT and OT with weight-bearing as tolerated as well as walker for fall prevention and ice p.r.n.. Patient worked with PT and OT while in hospital. Plan to discharge to home health. Recommended repeat follow-up with Ortho in 6 weeks for repeat radiographs. Time Spent with Patient Time attestation: Total time spent providing and/or coordinating discharge services: Exam Narrative: GENERAL: Comfortable, no acute distress HENMT: moist mucous membranes EYES: EOM intact b/l NECK: no lymphadenopathy RESPIRATORY: clear to auscultation, no increased respiratory effort CARDIO: Regular rate and rhythm GI: soft, nontender, bowel sounds present SKIN/EXTREMITIES: no rashes, no edema, no redness or tenderness NEURO: PROM intact, answers questions appropriately, A&O x4 DS: Data Data Completed and Pending Labs on day of discharge: Labs from last 24 hours 01/20/24 04:57 WBC 5.2 RBC 3.38 L Hgb 10.8 L Hct 33.2 L MCV 98.2 MCH 32.0 MCHC 32.5 RDW 11.8 Plt Count 179 MPV 9.7 Sodium 138 Potassium 3.2 L Chloride 95 L Carbon Dioxide > 40 H Anion Gap BUN 19 H Creatinine 0.50 L Estim Creat Clear Calc 52 Estimated GFR > 60 Glucose 98 Calcium 9.3 Total Bilirubin 0.5 AST 18 ALT 14 Alkaline Phosphatase 69 Total Protein 6.0 L Albumin 3.6 Discharge Plan Discharge Consulting providers: Evans Del Valle Discharging Clinician: Enma Mijares Patient Disposition: Home Health Service Activity: as tolerated Diet: regular Discharge Instructions: Per Care Coordination. Patient to resume AW services for healthcare economics consultant, PT/OT eval and treat. P: [phone]. RN please fax discharge instructions to: F: [phone] Follow-up with Orthopedics in 6 weeks for repeat x-rays. Weightbearing as tolerated. Walker for fall prevention. Ice as needed Discharge disposition: Take medications as prescribed Monitor blood pressures Avoid social areas, you wear a mask when in social settings Encouraged to continue with yearly vaccinations Return to the emergency department if he developed sudden shortness of breath, chest pain, nausea, vomiting, upset stomach or intractable diarrhea Return to the emergency department if you develop
--- NOTE | 2024-01-20 12:32 | PM.PNORT ---
Progress Note: A&P Assessment and Plan (1) Greater trochanter fracture: Qualifiers: Encounter type: initial encounter Fracture type: closed Fracture alignment: displaced Laterality: left Qualified Code(s): S72.112A - Displaced fracture of greater trochanter of left femur, initial encounter for closed fracture Code(s): S72.113A - Displaced fracture of greater trochanter of unspecified femur, initial encounter for closed fracture Status: Acute Assessment and Plan: CT scan of the left hip reveals mild distraction of a mildly comminuted likely avulsion fracture involving the cephalad aspect of the left greater trochanter. The fracture type and injury as well as radiographs discussed with the patient. Operative and nonoperative treatment options reviewed. Recommended non operative treatment. Risk of nonunion, malunion or late displacement discussed. Stiffness, pain and possible dysfunction of the joint discussed. Fracture precautions and activity restrictions reviewed. The patient verbalizes understanding. Pain control. PT/OT. WBAT. Walker for fall prevention. Ice. Pain patch. Dispo: Home with Home Health vs. [facility] pending progress with PT/OT. Will arrange f/u in the outpatient orthopedic clinic in 6 weeks for repeat radiographs. Plan Reviewed history, exam, radiographs and current labs with attending MD and covering surgeon, Dr. Del Valle, who agrees with current plan as indicated above. No further recommendations from Dr. Del Valle at this time. Subjective Subjective Date/Time Seen: 01/20/24 12:32 Interval history: Patient ambulating at the time of exam. Reports improvement in pain of the left hip. Review of Systems Review of Systems: All systems reviewed & are unremarkable except as noted in HPI and below Exam Const: General: cooperative and average body habitus Nutritional Appearance: average body habitus Orientation/consciousness: patient oriented x3 Limitations: no limitations HENMT: Head: normal to inspection Ears: hearing grossly normal bilaterally Face/Nose/Sinus: Normal external nose present and normal facial exam Face and sinus: normal facial exam Mouth: Yes moist mucous membranes Teeth and gingiva: dentition normal Eyes: General: appearance normal, both eyes and all related structures Pupils: Equal, round and reactive pupils present EOM: EOMs intact bilaterally Neck: Neck: normal visual inspection Chest: Chest palpation & inspection: normal inspection of the chest Resp: Effort & Inspection: normal respiratory effort and able to speak in complete sentences Cardio: Jugular venous distension: no JVD Neuro: General: patient oriented x3 Cranial nerves: Yes Equal, round and reactive pupils present Extrem: Left lower extremity: normal to inspection, full ROM, normal capillary refill, hip/thigh (No groin pain ) Details: normal to inspection, tenderness Location: of the hip Location: over the great trochanter, of the proximal upper leg Location: laterally and of the mid upper leg Location: laterally, swelling Location: of the hip (greater trochanter ), abnormal ROM Details: pain with active ROM Details: with flexion and with external rotation and other (wound left buttocks, covered with mepitel foam ); no ecchymosis and no crepitus, knee (TKA incision noted. ) Details: normal to inspection and normal ROM; no tenderness and no swelling, lower leg Details: normal to inspection, ankle Details: normal to inspection and foot Details: normal capillary refill, toes with normal ROM and vascular exam Details: dorsalis pedis pulse present Objective Data Vital Signs Vital Signs: Vital Signs - 24 hr 01/19/24 14:35 01/19/24 18:25 01/19/24 20:50 Temperature 36.8 C Pulse Rate 83 86 Respiratory Rate 20 Blood Pressure 94/70 L 133/58 L Pulse Oximetry 99 100 Oxygen Delivery Nasal Cannula Oxygen Flow Rate 3 Fraction of Inspired Oxygen 01/19/24 21:32 01/19/24 20:00 01/03
[2024-01-20 13:55] VITALS: BP 126/63; PULSE 77; RESP 16; TEMP 36.6; O2SAT 100
--- NOTE | 2024-01-20 15:16 | PC.NURSE ---
This RN attempted to fax discharge paperwork to [facility] on multiple occasions today. Fax had no response x4 times. Care coordination aware.
== END 2024-01-20 15:10 | disposition home health service (06) | DRG 536 ==
LOC: ANHED 17:42 → ANH2MED 18:06
PROVIDERS: Admitting Provider Internal Medicine; Emergency Provider Family Medicine; PCP Internal Medicine; Visit Provider Nurse Practitioner Family
DX: S72.112A Displaced fracture of greater trochanter of left femur, initial encounter for closed fracture (principal); J96.11 Chronic respiratory failure with hypoxia; J44.9 Chronic obstructive pulmonary disease, unspecified; E87.6 Hypokalemia; K21.9 Gastro-esophageal reflux disease without esophagitis; W19.XXXA Unspecified fall, initial encounter; Z87.891 Personal history of nicotine dependence; Z79.82 Long term (current) use of aspirin; Z99.81 Dependence on supplemental oxygen
CPT/HCPCS: 36415; 73502; 73700; 80053; 85025; 85027; 85610; 85730; 86850; 86900; 86901; 93005; 94640; 96374; 96375; 97110; 97161; 97165; 97530; 97535; 99285; A9270; J2270; J2405; J3480; J7040

== ENCOUNTER 2024-04-14 01:59 | Emergency (ER) | payer MEDICARE, MEDICAID, SELFPAY ==
[2024-04-14] VITALS (17 sets, daily range): BP systolic 117–154; BP diastolic 56–90; PULSE 67–97; RESP 13–22; TEMP 36.4–36.9; O2SAT 93–100
--- NOTE | ~2024-04-14 | XR_ITS ---
Right Shoulder Technique: AP and scapular Y views were obtained. Clinical History: Pain Findings: No fracture or dislocation is seen. Osseous alignment is anatomic. The glenohumeral joint i s intact. There is mild AC joint degenerative change. Soft tissues are unremarkable. Impression: Mild AC joint degenerative change. Reviewed, dictated and finalized at [facility]. Impression: Mild AC joint degenerative change.
--- NOTE | ~2024-04-14 | XR_ITS ---
Clinical Indication: Shortness of breath PA and lateral views of the chest: Comparison: 09/10/2020 Findings: Probable mild central congestive change. No consolidation or pleural effusion evident. Car diomediastinal silhouette is within normal limits. There is kyphosis with probable compression fractu res of the lower thoracic spine. Impression: Mild central congestive change. Kyphosis and compression fractures of the lower thoracic spine. Reviewed, dictated and finalized at location [facility]. Impression: Mild central congestive change. Kyphosis and compression fractures of the lower thoracic spine.
--- NOTE | 2024-04-14 02:04 | ECG_ITS ---
Test Date: 2024-04-14 02:11:24 Measurements Intervals [place] Rate: 68 P: 2 [place]: 143 QRS: 8 QRSD: 88 T: 12 QT: 373 QTc: 399 Interpretive Statements SINUS RHYTHM RSR' IN V1 OR V2, PROBABLY NORMAL VARIANT BASELINE ARTIFACT- I, II, III, AVR, AVL, AVF, V1-V6 BORDERLINE ECG Compared to ECG 01/16/2024 14:58:33 NO SIGNIFICANT CHANGE Electronically Signed On 04-14-2024 06:27:45 CDT by Mendoza Johnson D.O.
--- NOTE | 2024-04-14 07:22 | PC.NURSE ---
Assumed care of pt. pt resting with reg resp. C/O right back & ribcage pain. States she does not feel short of breath at this ti me. Wears continuous oxygen at home for COPD.
--- NOTE | 2024-04-14 07:23 | ED.SOB ---
HPI - SOB/Dyspnea General Chief Complaint: Shortness of Breath/Dyspnea Stated Complaint: R shoulder pain when breathing Time Seen by Provider: 04/14/24 07:21 Source: patient Limitations: no limitations History of Present Illness HPI Narrative: Patient presents with complaint of right shoulder pain now into shoulder blade, particularly when breathing. This has been occurring for the past 2 days. She is concerned she has a pneumonia as she has had recurrent pneumonia in her right lung. At triage there was notation that she had increased work of breathing however patient denies this. At baseline she is on 3 L nasal cannula for COPD. She denies any cough. She denies any lower extremity edema. History of hypertension. She denies any fall although she does note some repetitive movements in this extremity as she picks up her 10 lb dog. No history of DVT or PE although her mother this. She has been having chills. Former smoker, quit 20 years ago approximately. Related Data Home Medications Medication Instructions Recorded Confirmed albuterol sulfate 90 mcg/actuation 2 puff inhalation PRN PRN 07/22/20 02/24/24 aerosol inhaler Shortness Of Breath metoprolol succinate 100 mg 100 mg PO DAILY 07/22/20 02/24/24 tablet,extended release 24 hr tiotropium bromide 2.5 2 puff inhalation DAILY 07/22/20 02/24/24 mcg/actuation mist for inhalation (Spiriva Respimat) aspirin 81 mg tablet 81 mg PO DAILY 07/23/20 02/24/24 fluticasone 500 mcg-salmeterol 50 1 inh inhalation DAILY 07/23/20 02/24/24 mcg/dose blistr powdr for inhalation (Advair Diskus) acetaminophen 500 mg tablet 500 mg PO Q6H PRN pain 09/20/21 02/24/24 Allergies Allergy/AdvReac Type Severity Reaction Status Date / Time duloxetine Allergy Intermediate Cough Verified 04/14/24 02:00 quinapril AdvReac Unknown UNKNOWN Verified 04/14/24 02:00 tramadol AdvReac Dizziness Verified 04/14/24 02:00 lorazepam AdvReac Intermediate prolonged Uncoded 04/14/24 18:19 confusion PMFSH Past Medical History Medical History Anemia COPD (chronic obstructive pulmonary disease) Gastroesophageal reflux disease Greater trochanter fracture Melena Obesity Ovarian cyst Recurrent pneumonia Right Supplemental oxygen dependent 3 L nasal cannula Surgical History Surgical History H/O: hysterectomy Hx of colonoscopy Social History Social History (Updated 04/14/24 @ 07:56 by Becky Alegre MD) Smoking packs per day: 1 Smoking cigarettes per day: 20.0 Years smoked: 46 Smoking pack-years: 46.00 Smoking status: Former smoker Alcohol intake: never Substance use: never Substance use type: does not use Do You Feel Safe in your Home?: Yes Lack of Transportation: No Lack of Food: Never True Current Housing: I Have Housing Concerned About Future Housing: No Difficulty Paying Gas/Electric Bills: No Difficulty Paying for Meds: No Currently Unemployed: No Education: High School Diploma/GED Difficulty w/ Childcare or Family Care: No Additional living arrangements comments: Has a 10 lb dog Gender identity (if verbalized by the patient): Female Spiritual care concerns: No Exam Narrative: GENERAL: Well-appearing, well-nourished, and in no acute distress. HEAD: Normocephalic, atraumatic. EYES: Non injected, non icteric ENT: Nares clear, no rhinorrhea or epistaxis. NECK: Supple. CHEST: Speaking in full sentences. No respiratory distress. Lungs clear to auscultation bilaterally without appreciable wheezes or crackles. Nasal cannula in place. HEART: Regular rate and rhythm. . ABDOMEN: Soft, nondistended. EXTREMITIES: Normal range of motion. No lower extremity edema. SKIN: Warm, dry, no rash. NEURO: No focal deficits. Alert and oriented x3. PSYCH: Normal mood and affect. Course Vital Signs Vital signs: Vit
[2024-04-14 08:29] LABS: Basophils Percent Auto 0.3 % (0.2-1.2); Eosinophils Absolute Auto 0.1 K/mm3 (0-0.3); Eosinophils Percent Auto 1.1 % (0-4.4); Hematocrit 36.3 % (37.0-47.0); Hemoglobin 11.7 g/dL (12.0-15.0); Immature Granulocyte Absolute 0.03 K/mm3 (0.00-0.031); Immature Granulocyte Percent A 0.5 % (0-0.5); Lymphocytes Absolute Auto 1.42 K/mm3 (0.9-3.2); Lymphocytes Percent Auto 22.3 % (18.3-44.2); Mean Corpuscular HGB Conc 32.2 g/dl (32-36); Mean Corpuscular Hemoglobin 31.9 pg (26-34); Mean Corpuscular Volume 98.9 fl (80-100); Mean Platelet Volume 9.2 fl (7.4-10.4); Monocytes Absolute Auto 0.6 K/mm3 (0.1-0.6); Monocytes Percent Auto 9.7 % (2.6-8.5); Neutrophils Absolute Auto 4.2 K/mm3 (1.3-6.7); Neutrophils Percent Auto 66.1 % (45.5-73.1); Platelet Count Result 191 k/mm3 (150-375); Red Blood Count 3.67 M/mm3 (4.2-5.4); Red Cell Distribution Width 11.8 % (11.5-14.5); White Blood Count 6.4 K/mm3 (4.5-10.0)
[2024-04-14 08:49] LABS: Alanine Aminotransferase 19 U/L (6-35); Albumin Level 4.1 g/dL (3.5-5.1); Alkaline Phosphatase 80 U/L (38-126); Aspartate Amino Transferase 24 U/L (14-36); Bilirubin,Total 0.3 mg/dL (0.2-1.3); Blood Urea Nitrogen 28 mg/dL (7-17); Calcium 9.6 mg/dL (8.4-10.2); Carbon Dioxide > 40 mmol/L (22-30); Chloride 88 mmol/L (98-107); Estimated CRCL calculation 38 ml/min; Estimated Glomerular Filt Rate > 60; Glucose 110 mg/dL (65-110); Potassium 3.4 mmol/L (3.4-5.0); Sodium 138 mmol/L (137-145)
[2024-04-14 09:04] LABS: D Dimer 0.23 ug/mL (<0.48)
[2024-04-14 09:22] LABS: Alveolar/Arterial O2 Gradient 32.7 mmHg; Base Excess ABG 18.7 mEq/l (+/-2.0); Fractional Inspired Oxygen 32 %; HCO3 ABG 47.9 mEq/l (22.0-26.0); Oxygen Content ABG 16.5 %vol (16.0-22.0); Oxygen Saturation ABG 96.9 % (95.0-100.0); Oxyhemoglobin 96.8 % THb (90.0-100.0); PO2 ABG 97.9 mmHg (80.0-100.0); PO2 FiO2 Ratio Arterial Blood 3.06 %; pH ABG 7.377 (7.350-7.450)
[2024-04-14 09:26] LABS: Device NASAL CANNULA; PCO2 ABG 83.4 mmHg (35.0-45.0); Site Drawn LEFT BRACHIAL
[2024-04-14] MEDS: ONDANSETRON INJ 4 MG/2 ML VIAL IV PUSH (09:38)
[2024-04-14] MEDS: ACETAMINOPHEN 325 MG TABLET 650 MG PO (09:38)
--- NOTE | 2024-04-14 10:19 | PC.NURSE ---
BiPap settings per order. Pt tolerating fair.
[2024-04-14] MEDS: LORazepam INJ (*CRX) 2 MG/ML VIAL 0.5 MG IV PUSH ×2 (10:35→13:06)
[2024-04-14 11:06] LABS: Lipase 91 U/L (23-300)
[2024-04-14 11:16] LABS: NT Pro B Type Natriuretic Pept 79 pg/mL (19.9-100)
[2024-04-14 11:59] LABS: Alveolar/Arterial O2 Gradient 44.9 mmHg; Base Excess ABG 15.7 mEq/l (+/-2.0); Fractional Inspired Oxygen 30 %; HCO3 ABG 44.1 mEq/l (22.0-26.0); Oxygen Content ABG 15.6 %vol (16.0-22.0); Oxygen Saturation ABG 94.9 % (95.0-100.0); Oxyhemoglobin 94.3 % THb (90.0-100.0); PO2 ABG 79.2 mmHg (80.0-100.0); PO2 FiO2 Ratio Arterial Blood 2.64 %; Total Hemoglobin 11.7 g/dL (12.0-18.0); pH ABG 7.379 (7.350-7.450)
[2024-04-14 12:03] LABS: Device BIPAP; PCO2 ABG 76.4 mmHg (35.0-45.0); Site Drawn LEFT BRACHIAL
[2024-04-14 12:04] LABS: Inspiratory Pressure 12 cmH2O
[2024-04-14 12:05] LABS: Expiratory Pressure 5 cmH2O
--- NOTE | 2024-04-14 12:26 | PC.NURSE ---
Pt resting with reg resp. BiPap settings unchanged
[2024-04-14] MEDS: IPRATROPIUM 0.5 MG/ALBUTEROL SULFATE 2.5 MG AMPUL.NEB 3 ML INHALATION (12:50)
[2024-04-14] MEDS: MAGNESIUM SULF 1 GM/D5W 100 ML 1 GM/100 ML BAG IVPB (13:06)
--- NOTE | 2024-04-14 14:15 | PC.NURSE ---
1300- Pt agitated pulled BiPap mask off, hitting & kicking at staff. Dr. Alegre notified.
--- NOTE | 2024-04-14 14:16 | PC.NURSE ---
1410 Pt drowsy cooperative, Bipap removed, Oxygen at 3l NC applied.
--- NOTE | 2024-04-14 14:45 | PC.NURSE ---
Pt found by this RN sitting on toilet. Pt ambulated there independently. No falls. Pt self removed NC and all VS equipment for ambulation. Pt returned to bed by this RN. 02 68% at time of event. NC reapplied. 02 quickly martha to 100% with good pleth. Pt A&O to self and drowsy at this time. Speech clear. MD Alegre notified. Bed alarm placed under pt. VSS.
--- NOTE | 2024-04-14 15:05 | PC.NURSE ---
Pt daughter Glendy Herrera ([phone]) updated at this time. If pt is d/c, daughter would like to be notified and can take her home.
--- NOTE | 2024-04-14 16:53 | PC.NURSE ---
RN called pt daughter to discuss discharge, no answer call back number left
--- NOTE | 2024-04-14 18:05 | PC.NURSE ---
Pt continues to wait for daughter. Dinner tray given
== END 2024-04-14 18:53 | disposition home or self-care (01) ==
PROVIDERS: Student in an Organized Health Care Education/Training Program; Emergency Provider Student in an Organized Health Care Education/Training Program; PCP Internal Medicine
DX: M19.011 Primary osteoarthritis, right shoulder (principal); E87.29 Other acidosis; D64.9 Anemia, unspecified; M48.54XA Collapsed vertebra, not elsewhere classified, thoracic region, initial encounter for fracture; M40.204 Unspecified kyphosis, thoracic region; R06.02 Shortness of breath; I10 Essential (primary) hypertension; J44.9 Chronic obstructive pulmonary disease, unspecified; Z99.81 Dependence on supplemental oxygen; K21.9 Gastro-esophageal reflux disease without esophagitis; E66.9 Obesity, unspecified; Z68.21 Body mass index [BMI] 21.0-21.9, adult; Z87.01 Personal history of pneumonia (recurrent); Z87.891 Personal history of nicotine dependence; Z90.710 Acquired absence of both cervix and uterus; R94.31 Abnormal electrocardiogram [ECG] [EKG]; Z79.82 Long term (current) use of aspirin; Z79.899 Other long term (current) drug therapy
CPT/HCPCS: 36415; 36600; 71046; 73030; 80053; 82805; 83690; 83880; 85025; 85380; 93005; 94002; 94640; 96365; 96375; 96376; 99284; A9270; J2060; J2405; J3475

== ENCOUNTER 2024-07-28 23:28 | Emergency (ER) | payer MEDICARE, MEDICAID, SELFPAY ==
[2024-07-28 23:29] VITALS: BP 144/85; PULSE 78; RESP 16; TEMP 36.5; O2SAT 99
--- NOTE | 2024-07-29 01:22 | PC.NURSE ---
pt seen ambulatory with steady gait to exit er. No distress noted.
--- OUTSIDE RECORDS SUMMARY | 2024-08-05 02:28 | XMS_ITS | Data Portability ---
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 Was recommended to stay up-to-date on COVID and RSV and pneumonia immunizations. As far as the lesion on her lower extremity she has been advised that this could represent a skin cancer she was told that also by her sales mgr and that if it was a melanoma that it could spread and be fatal and she voiced understanding and said that what the shape that her lungs are in she is not worried about a skin lesion at this time she will see me back in couple of months if she changes her mind we will make referral to Dermatology or to the sales mgr that wanted to excise that lesion. [email or web address] Not available 05/23/2024 16:45:53 Plan of Treatment Reminders Order Date Submit Date Provider Last Modified By Organization Details Last Modified Time Details Appointments ANY 15 2024 02:30P M Linda Nagy MD Not available Not available Not available Lab None recorded. Referral None recorded. Procedures None recorded. Surgeries None recorded. Imaging XR, lumbosacr al spine 2019 020 [facility] ([facility]), [address] [place], [address], 05/11/2020 09:14:54 Medication Orders None recorded. Patient TargetsNo targets recorded. Patient Instructions Encounter Date Encounter Id Patient Instructions Last Modified By Organization Details Last Modified Time 04/21/2020 [id number] learning about high blood pressure [facility] Not available 04/21/2020 17:03:40 chronic obstructive pulmonary disease (COPD): care instructions [facility] Not available 04/21/2020 17:03:40 learning about copd and how to prevent lung infections [email or web address] Not available 04/21/2020 17:03:39 pneumonia: care instructions [facility] Not available 04/21/2020 17:03:39 05/27/2020 [id number] pneumonia: care instructions [facility] Not available 05/27/2020 11:03:14 Reason for Referral None Reported. Results Created Date Observation Date Name Description Value Unit Range Abnormal Flag Note LastModifiedBy Organization Detail LastModifiedTime 03/21/20 20 03/21/2020 XR, chest No observ ation record ed. [facility] (Imaging) [address] [place], [address], 03/21/2020 11:57:13 03/22/20 20 03/22/2020 XR, chest No observ ation record ed. [facility] (Imaging) [address] [place], [address], 03/22/2020 12:49:52 03/23/20 20 03/23/2020 XR, chest No observ ation record ed. [facility] (Imaging) [address] [place], [address], 03/23/2020 12:01:06 04/13/20 20 04/13/2020 XR, chest No observ ation record ed. [facility] (Imaging) [address] [place], [address], 04/13/2020 12:50:30 04/14/20 20 04/14/2020 XR, chest No observ ation record ed. [facility] (Imaging) [address] [place], [address], 04/14/2020 18:26:42 04/15/2004/15/2020 XR, chest No observ ation record ed. [facility] (Imaging) [address] [place], [address], 04/15/2020 13:36:15 04/15/2004/15/2020 CT, chest , w/o contr ast No observ ation record ed. [facility] (Imaging) [address] [place], [address], 04/15/2020 15:46:10 04/17/2004/17/2020 XR, chest No observ ation record ed. [address] (Imaging) [address] [place], [address], 04/18/2020 11:05:47 04/18/2004/18/2020 XR, chest No observ ation record ed. [address] (Imaging) [address] [place], [address], 04/18/2020 11:05:32 04/19/2004/19/2020 XR, chest No observ ation record ed. [facility] (Imaging) [address] [place], [address], 04/19/2020 11:11:00 04/20/2004/20/2020 XR, chest No observ ation record ed. [facility] (Imaging) [address] [place], [address], 04/20/2020 11:28:11 05/11/20 20 05/10/2020 XR, lumbo sacra l spine No observ [facility]ion [facility] ed[email or web address] [address] [place], [address], 05/11/2020 12:08:10 05/20/20 20 05/19/2020 XR, chest No observ ation record ed. [facility] [address] [place], [address], 05/23/2020 11:56:42 07/04/20 20 07/04/2020 XR, chest No observ ation record ed. [facility] [address] [place], [address], 07/04/2020 11:10:29 07/04/20 20 07/04/2020 CT, angio gram, chest , w/ contr ast No observ ation record ed. [facility] [address] [place], [address], 07/04/2020 11:10:30 07/21/20 20 07/21/2020 XR, chest , 2 view No observ ation record ed. [facility] [address] [place], [address], 07/22/2020 16:16:42 10/28/19 21 10/27/2020 XR, chest No observ ation record ed. [address] [place], [address], 10/27/2020 16:27:36 10/28/19 21 10/27/2020 XR, chest No observ ation record ed. [address] [place], [address], 10/27/2020 16:27:50 10/28/19 21 10/27/2020 CT, head, w/o contr ast No observ ation record ed. [address] [place], [address], 10/27/2020 16:28:05 10/28/19 21 10/27/2020 CT, cervi nimco spine , w/o contr ast No observ ation record ed. [address] [place], [address], 10/27/2020 16:28:25 10/28/19 21 10/27/2020 XR, chest No observ ation record ed. [address] [place], [address], 10/28/2020 11:57:59 10/28/19 21 10/27/2020 XR, chest No observ ation record ed. [address] [place], [address], 10/28/2020 11:58:11 11/05/19 21 11/04/2020 CT, head, w/o contr ast No observ ation record ed. [address] [place], [address], 11/04/2020 17:07:01 11/05/19 21 11/04/2020 XR, chest No observ ation record ed. [address] [place], [address], 11/04/2020 17:06:47 11/05/19 21 11/04/2020 XR, chest No observ ation record ed. [address] [place], [address], 11/11/2020 09:43:03 12/14/19 21 12/12/2020 XR, chest No observ ation record ed. [address] ([facility]) [address] [place], [address], 12/13/2020 13:22:26 12/14/19 21 12/13/2020 XR, abdom en No observ ation record ed. [address] ([facility]) [address] [place], [address], 12/13/2020 13:22:15 01/20/20 21 01/19/2021 CT, abdom en + pelvi s, w/o contr ast No observ ation record ed. [facility] ([facility]) [address] [place], [address], 01/19/2021 12:33:55 01/29/20 21 01/27/2021 XR, chest No observ ation record ed. [address] ([facility]) [address] [place], [address], 01/30/2021 17:40:40 01/29/20 21 01/27/2021 CT, chest , w/o contr ast No observ ation record ed. [address] [place], [address], 01/30/2021 17:41:32 01/29/20 21 01/27/2021 CT, abdom en + pelvi s, w/ contr ast No observ ation record ed. [address] ([facility]) [address] [place], [address], 01/30/2021 17:41:48 02/24/20 21 02/23/2021 XR, chest No observ ation record ed. [address] ([facility]) [address] [place], [address], 02/27/2021 10:19:46 02/26/20 21 02/24/2021 CT, head + brain , w/o contr ast No observ ation record ed. [facility] ([facility]) [address] [place], [address], 02/27/2021 11:03:03 08/14/19 23 08/14/2022 imagi ng/di agnos tic resul t No observ ation record ed. [facility] [address], [place], [address], 08/14/2022 17:55:56 01/16/20 24 01/16/2024 CT, hip + pelvi s, w/o contr ast No observ ation record ed. [address], [place], [address], 01/24/2024 11:12:44 01/16/20 24 01/16/2024 imagi ng/di agnos tic resul t No observ ation record ed. [address], [place], [address], 01/24/2024 11:22:57 04/14/20 24 04/14/2024 XR, chest No observ ation record ed. [address], [place], [address], 04/16/2024 13:48:21 04/14/20 24 04/14/2024 XR, shoul lexi, 2 or more view No observ ation record ed. [address], [place], [address], 04/16/2024 13:48:22 Result Notes None recorded. Problems Name Problem SNOMED Code Status Onset Date Resolution Date Notes Provider Name and Address Organization Details Recorded Time Low back pain 149456890 Active 2019 Not Available [facility] 02:56:10 Anxiety 33972442 Active 2019 Not Available [facility] 1 02:56:11 Pressure injury of buttock 156110633 Active 2023 Linda Nagy MD Attn: Accounting ,[address] [place], [address] , [facility] 4 14:43:56 Chronic obstructive pulmonary disease 91500972 Active 2023 Linda Nagy MD Attn: Accounting ,[address] [facility], [place], [address] , [facility] 4 14:43:57 Chronic hypoxemic respiratory failure 677808155 Active 2023 Linda Nagy MD Attn: Accounting ,[address] [facility], [place], [address] , [place] [facility] 4 14:43:58 Essential hypertension 05765485 Active 2023 Linda Nagy MD Attn: Accounting ,[address] [facility], [place], [address] , [place] [facility] 4 14:44:08 Gastroesophag eal reflux disease without esophagitis 755465138 Active 2023 Linda Nagy MD Attn: Accounting ,[address] [facility], [place], [address] , [place] [facility] 4 16:46:22 Hyperlipidemi a 25486814 Active 2023 Linda Nagy MD Attn: Accounting ,[address] [facility], [place], [address] , [place] [facility] 4 16:46:28 Problem Notes None recorded. Procedures Surgical History Date Name Laterality Status Provider Name and Address Organization Details Recorded Time Appendectomy completed Austen Conte MA [facility] 09/20/2017 14:23:18 Eye Surgery completed Austen Conte MA [facility] 09/20/2017 14:23:25 Hernia Repair completed Austen Conte MA [facility] 09/20/2017 14:23:31 Joint Replacement completed Austen Conte MA [facility] 09/20/2017 14:23:38 Knee Surgery completed Austen Conte MA [facility] 09/20/2017 14:23:45 Dilation and Curettage completed Austen Conte MA [facility] 09/20/2017 14:23:50 Imaging Results Imaging Date Name Status [facility]Modified by [facility] Details LastModified Time 03/21/2020 XR, chest completed [facility] (Imaging) [address] [place], [address], 03/21/2020 11:57:13 03/22/2020 XR, chest completed [facility] (Imaging) [address] [place], [address], 03/22/2020 12:49:52 03/23/2020 XR, chest completed [email or web address] [facility] (Imaging) [address] [place], [address], 03/23/2020 12:01:06 04/13/2020 XR, chest completed [facility] (Imaging) [address] [place], [address], 04/13/2020 12:50:30 04/14/2020 XR, chest completed [facility] (Imaging) [address] [place], [address], 04/14/2020 18:26:42 04/15/2020 XR, chest completed [facility] (Imaging) [address] [place], [address], 04/15/2020 13:36:15 04/15/2020 CT, chest, w/o contrast completed [facility] (Imaging) [address] [place], [address], 04/15/2020 15:46:10 04/17/2020 XR, chest completed [email or web address] [facility] (Imaging) [address] [place], [address], 04/18/2020 11:05:47 04/18/2020 XR, chest completed [email or web address] [facility] (Imaging) [address] [place], [address], 04/18/2020 11:05:32 04/19/2020 XR, chest completed [facility] (Imaging) [address] [place], [address], 04/19/2020 11:11:00 04/20/2020 XR, chest completed [facility] (Imaging) [address] [place], [address], 04/20/2020 11:28:11 05/10/2020 X[facility]acral [facility] [address] [place], [address], 05/11/2020 12:08:10 05/19/2020 XR, chest completed [facility] [address] [place], [address], 05/23/2020 11:56:42 07/04/2020 XR, chest completed [facility] [address] [place], [address], 07/04/2020 11:10:29 07/04/2020 CT, angiogram, chest, w/ contrast completed [facility] [address] [place], [address], 07/04/2020 11:10:30 07/21/2020 XR, chest, 2 view completed [facility] [address] [place], [address], 07/22/2020 16:16:42 10/27/2020 XR, chest completed [email or web address] [place], [address], 10/27/2020 16:27:36 10/27/2020 XR, chest completed [email or web address] [facility] [address] [place], [address], 10/27/2020 16:27:50 10/27/2020 CT, head, w/o contrast completed [address] [place], [address], 10/27/2020 16:28:05 10/27/2020 CT, cervical spine, w/o contrast completed [address] [place], [address], 10/27/2020 16:28:25 10/27/2020 XR, chest completed [email or web address] [facility] [address] [place], [address], 10/28/2020 11:57:59 10/27/2020 XR, chest completed [email or web address] [facility] [address] [place], [address], 10/28/2020 11:58:11 11/04/2020 CT, head, w/o contrast completed [address] [place], [address], 11/04/2020 17:07:01 11/04/2020 XR, chest completed [email or web address] [facility] [address] [place], [address], 11/04/2020 17:06:47 11/04/2020 XR, chest completed [email or web address] [facility] [address] [place], [address], 11/11/2020 09:43:03 12/12/2020 XR, chest completed [email or web address] [facility] ([facility]) [address] [place], [address], 12/13/2020 13:22:26 12/13/2020 XR, abdomen completed [email or web address] [facility] ([facility]) [address] [place], [address], 12/13/2020 13:22:15 01/19/2021 CT, abdomen + pelvis, w/o contrast completed [facility] ([facility]) [address] [place], [address], 01/19/2021 12:33:55 01/27/2021 XR, chest completed [email or web address] [facility] ([facility]) [address] [place], [address], 01/30/2021 17:40:40 01/27/2021 CT, chest, w/o contrast completed [address] [place], [address], 01/30/2021 17:41:32 01/27/2021 CT, abdomen + pelvis, w/ contrast completed [address] ([facility]) [address] [place], [address], 01/30/2021 17:41:48 02/23/2021 XR, chest completed [address] ([facility]) [address] [place], [address], 02/27/2021 10:19:46 02/24/2021 CT, head + brain, w/o contrast completed [facility] ([facility]) [address] [place], [address], 02/27/2021 11:03:03 08/14/2022 imaging/diagnos tic result completed [facility] [address], [place], [address], 08/14/2022 17:55:56 01/16/2024 CT, hip + pelvis, w/o contrast completed [address], [address], 01/24/2024 11:12:44 01/16/2024 imaging/diagnos tic result completed [address], [address], 01/24/2024 11:22:57 04/14/2024 XR, chest completed [address], [address], 04/16/2024 13:48:21 04/14/2024 XR, shoulder, 2 or more view completed [address], [address], 04/16/2024 13:48:22 Procedure Notes None recorded. Medical Equipment None Reported. Allergies Allergen ID Allergen Name Allergen Category Reaction Reaction Severity Criticality Documentation Date Start Date Code Code System Note Provider Name and Address Organization Details Recorded Time 636246 Cymbalta medicatio n Not available Not available Not available 09/20/2017 62969 4 RxNorm Jason Wiggins MD Attn: Accountin g,[address] [facility], [place], [address], [place] [facility] 8 15:34:01 026843 Plaquenil medicatio n rash moderate Not available 03/28/2018200746 2 RxNorm Jason Wiggins MD Attn: Accountin g,[address] [facility], [place], [address], [place] [facility] 8 15:32:40 627710 quinapril medicatio n itching moderate Not available 03/28/20182014 78648 RxNorm Jason Wiggins MD Attn: Accountin g,[address] [facility], [place], [address], [place] [facility] 8 15:33:55 528137 amlodipin e medicatio n itching Not available Not available 12/22/2019 24442 RxNorm Austen Conte MA null, [place] - [facility] 0 11:49:48 Medications Name Sig Start Date Stop Date Status Note LastModified by Organization Details LastModified Time hydrochlo rothiazid e 12.5 mg caps 12/03 completed Not Available Not Available Not Available metoprolo l succinate er 100 mg tb24 12/03 completed Not Available Not Available Not Available monteluka st sodium 10 mg tabs 12/03 completed Not Available Not Available Not Available levofloxa mumtaz 750 mg tabs 10/06 completed Not Available Not Available Not Available azithromy mumtaz 250 mg tabs 10/06 completed Not Available Not Available Not Available albuterol sulfate 0.083 % nebu 12/03 completed Not Available Not Available Not Available temazepam 15 mg caps 12/03 completed Not Available Not Available Not Available prednison e 20 mg tabs 12/03 completed Not Available Not Available Not Available diclofena c sodium dr 75 mg tbec 12/03 completed Not Available Not Available Not Available hydroco/a pap tab 5-325mg 12/03 completed Not Available Not Available Not Available omeprazol e 40 mg cpdr 12/03 completed Not Available Not Available Not Available cyclobenz aprine 10 mg tablet TAKE 1 TABLET DAILY AT BEDTIME NEEDED 01/28 completed Not Available Not Available Not Available atorvasta tin 40 mg tablet TAKE ONE TABLET DAILY 12/03 completed Not Available Not Available Not Available buspirone 5 mg tablet 12/03 completed Not Available Not Available Not Available bupropion HCl SR 150 mg tablet,12 hr sustained -release Take 1 tablet twice a day by oral route as directed for 30 days. 03/28 completed Not Available Not Available Not Available prednison e 10 mg tablet 12/03 completed Not Available Not Available Not Available venlafaxi ne ER 75 mg capsule,e xtended release 24 hr 12/03 completed Not Available Not Available Not Available paroxetin e 10 mg tablet 01/28 completed Not Available Not Available Not Available atorvasta tin 20 mg tablet TAKE 1 TABLET BY MOUTH EVERY DAY 2023 active Not Available Not Available Not Avai lable ropinirol e 1 mg tablet TAKE 1 TABLET BY MOUTH AT BEDTIME NEEDED active Not Available Not Available No t Available ipratropi um 0.5 mg-albute rol 3 mg (2.5 mg base)/3 mL nebulizat ion soln 12/03 completed Not Available Not Available Not Available trazodone 50 mg tablet 12/03 completed Not Available Not Available Not Available azithromy mumtaz 250 mg tablet 10/06 completed Not Available Not Available Not Available hydrocodo ne 5 mg-acetam inophen 325 mg tablet 12/03 completed Not Available Not Available Not Available sucralfat e 100 mg/mL oral suspensio n SHAKE LIQUID AND TAKE 10 ML BY MOUTH FOUR TIMES DAILY BEFORE MEALS 12/03 completed Not Available Not Available Not Available ondansetr on HCl 8 mg tablet 12/03 completed Not Available Not Available Not Available naltrexon e 50 mg tablet Take 1 tablet every day by oral route as directed for 30 days. 01/28 completed Not Available Not Available Not Available prednison e 20 mg tablet Take 2 tablets twice a day by oral route for 2 days. 10/06 completed Not Available Not Available Not Available metoprolo l succinate ER 100 mg tablet,ex tended release 24 hr TAKE 1 TABLET BY MOUTH EVERY DAY active Not Available Not Available No t Available clonazepa m 1 mg tablet 12/03 completed Not Available Not Available Not Available venlafaxi ne ER 150 mg capsule,e xtended release 24 hr 03/28 completed Not Available Not Available Not Available diphenoxy late-atro pine 2.5 mg-0.025 mg tablet 01/28 completed Not Available Not Available Not Available amlodipin e 2.5 mg tablet 12/03 completed Not Available Not Available Not Available metronida zole 500 mg tablet 01/28 completed Not Available Not Available Not Available chlorthal idone 25 mg tablet 05/19 completed Not Available Not Available Not Available amlodipin e 5 mg tablet Take 1 tablet every day by oral route. 12/22 completed Not Available Not Available Not Available chlorthal idone 50 mg tablet TAKE 1 TABLET BY MOUTH DAILY. FOLLOW UP active Not Available Not Available No t Available sulfameth oxazole 800 mg-trimet hoprim 160 mg tablet 12/03 completed Not Available Not Available Not Available hydrocodo ne 10 mg-acetam inophen 325 mg tablet TAKE 1 TABLET BY MOUTH FOUR TIMES DAILY NEEDED active Not Available Not Available No t Available omeprazol e 40 mg capsule,d elayed release Take 1 capsule by mouth daily. active Not Available Not Available No t Available tramadol 50 mg tablet 12/03 completed Not Available Not Available Not Available hydrocort isone acetate 25 mg rectal supposito ry 12/03 completed Not Available Not Available Not Available ketorolac 10 mg tablet Take 1 tablet every 6 hours by oral route as directed for 5 days. 01/28 completed Not Available Not Available Not Available oxycodone -acetamin ophen 5 mg-325 mg tablet 12/03 completed Not Available Not Available Not Available amoxicill in 875 mg tablet 10/06 completed Not Available Not Available Not Available amitripty line 25 mg tablet 1 tab po daily 12/03 completed Not Available Not Available Not Available temazepam 15 mg capsule 12/03 completed Not Available Not Available Not Available nifedipin e ER 60 mg tablet,ex tended release 24 hr 12/03 completed Not Available Not Available Not Available oxycodone -acetamin ophen 10 mg-325 mg tablet 12/03 completed Not Available Not Available Not Available dicyclomi ne 20 mg tablet 12/03 completed Not Available Not Available Not Available baclofen 10 mg tablet Take 1 tablet 3 times a day by oral route as directed for 30 days. 12/13 completed Not Available Not Available Not Available hydrocodo ne 7.5 mg-acetam inophen 325 mg tablet TAKE 1 TABLET BY MOUTH TWICE DAILY NEEDED 05/19 completed Not Available Not Available Not Available paroxetin e 20 mg tablet 09/24 completed Not Available Not Available Not Available pantopraz ole 40 mg tablet,de layed release TAKE 1 TABLET BY MOUTH EVERY DAY 2023 active Not Available Not Available Not Avai lable buspirone 10 mg tablet Take 1 tablet(s ) twice a day by oral route after meals for 30 days. 12/03 completed Not Available Not Available Not Available prednison e 50 mg tablet 01/28 completed Not Available Not Available Not Available lidocaine 5 % topical patch 12/03 completed Not Available Not Available Not Available hydrochlo rothiazid e 12.5 mg capsule TAKE ONE CAPSULE BY MOUTH EVERY DAY 12/03 completed Not Available Not Available Not Available omeprazol e 20 mg capsule,d elayed release 09/20 completed Not Available Not Available Not Available budesonid e 0.5 mg/2 mL suspensio n for nebulizat ion 12/03 completed Not Available Not Available Not Available aspirin 81 mg chewable tablet Chew 1 tablet every day by oral route. active Not Available Not Available No t Available diclofena c sodium 75 mg tablet,de layed release TAKE ONE TABLET TWICE DAILY AFTER MEALS 12/03 completed Not Available Not Available Not Available monteluka st 10 mg tablet TAKE ONE TABLET DAILY 12/03 completed Not Available Not Available Not Available acetamino phen 300 mg-codein e 60 mg tablet TAKE 1 TABLET BY MOUTH THREE TIMES DAILY 05/19 completed Not Available Not Available Not Available pravastat in 20 mg tablet Take 1 tablet every day by oral route for 90 days. 12/03 completed Not Available Not Available Not Available gabapenti n 100 mg capsule 12/03 completed Not Available Not Available Not Available estradiol 0.5 mg tablet 12/03 completed Not Available Not Available Not Available ibuprofen 600 mg tablet active Not Available Not Available Not Available levofloxa mumtaz 500 mg tablet 01/28 completed Not Available Not Available Not Available levofloxa mumtaz 750 mg tablet 10/06 completed Not Available Not Available Not Available albuterol sulfate HFA 90 mcg/actua tion aerosol inhaler INHALE 1 INHALATI ON BY MOUTH EVERY 4 HOURS NEEDED 12/03 completed Not Available Not Available Not Available losartan 50 mg-hydroc hlorothia zide 12.5 mg tablet TAKE ONE TABLET DAILY 12/03 completed Not Available Not Available Not Available ondansetr on 4 mg disintegr ating tablet 01/28 completed Not Available Not Available Not Available cefdinir 300 mg capsule 10/06 completed Not Available Not Available Not Available fluticaso ne propionat e 50 mcg/actua tion nasal spray,daniel pension USE 1 SPRAY IN EACH NOSTRIL EVERY DAY 12/03 completed Not Available Not Available Not Available doxycycli ne hyclate 100 mg tablet 09/24 completed Not Available Not Available Not Available progester one micronize d 100 mg capsule 12/03 completed Not Available Not Available Not Available amoxicill in 875 mg-potass ium clavulana te 125 mg tablet 05/19 completed Not Available Not Available Not Available cyclobenz aprine 5 mg tablet Take 1 tablet three times a day by oral route as needed for 30 days. 11/25 completed not helping ... Not Available Not Available Not Available Benicar HCT 20 mg-12.5 mg tablet Take 1 tablet every day by oral route for 90 days. 12/03 completed Not Available Not Available Not Available Oyst-Nimco- D 500 500 mg-5 mcg (200 unit) tablet TAKE 1 TABLET TWICE DAILY active Not Available Not Available No t Available sildenafi l (pulmonar y hypertens ion) 20 mg tablet 12/03 completed Not Available Not Available Not Available pregabali n 75 mg capsule TAKE 1 CAPSULE 3 TIMES DAILY . 12/03 completed Not Available Not Available Not Available diclofena c 1 % topical gel APPLY 2 GRAMS TO THE AFFECTED AREA(S) BY TOPICAL ROUTE 4 TIMES PER DAY 12/03 completed Not Available Not Available Not Available Gavilyte- C 240 gram-22.7 2 gram-6.72 gram-5.84 gram oral solution 12/26 completed Not Available Not Available Not Available Prolia 60 mg/mL subcutane ous syringe 12/03 completed Not Available Not Available Not Available Dulera 200 mcg-5 mcg/actua tion HFA aerosol inhaler active Not Available Not Available Not Available Spiriva Respimat 2.5 mcg/actua tion solution for inhalatio n INHALE 2 INHALATI ONS BY MOUTH DAILY 12/03 completed Not Available Not Available Not Available Viberzi 100 mg tablet 12/03 completed Not Available Not Available Not Available sildenafi l (antihype rtensive) 20 mg tablet active Not Available Not Available Not Available Wixela Inhub 250 mcg-50 mcg/dose powder for inhalatio n 12/03 completed Not Available Not Available Not Available Afluria Qd (36 mos up)(PF)60 mcg (15 mcg x4)/0.5 mL IM syringe 12/03 completed Not Available Not Available Not Available Vitals Date Recorded Body weight Heart rate Oxygen saturation Oxygen saturation in Arterial blood by Pulse oximetry Systolic blood pressure Diastolic blood pressure Provider Name and Address Organization Details Last Updated DateTime 4 52260.1 6 g 73 /min 98 % 98 % 114 mm[Hg] 78 mm[Hg] An Ignacio MA [place] - [facility] 4 15:36:33 Date Recorded Body height Body mass index (BMI) Body weight Heart rate Oxygen saturation Oxygen saturation in Arterial blood by Pulse oximetry Inhaled oxygen flow rate Systolic blood pressure Diastolic blood pressure Provider Name and Address Organization Details Last Updated DateTime 4 149.86 cm 21.8 kg/m2 08651.2 6 g 73 /min 98 % 98 % 3 L/min 114 mm[Hg] 74 mm[Hg] Jolene Vaca MA [place] - [facility] 4 15:12:40 Social History Question Answer Notes LastModified by Organizat ion Details LastModified Time Tobacco Smoking Status Former Smoker cigarettes Austen Conte MA null, [place] - [facility] 09/20/2017 14:25:29 Do You Have An Advance Directive? No Information not available 05/19/2024 What Is Your Level Of Alcohol Consumption? None Information not available 09/20/2017 Are You Blind Or Do You Have Difficulty Seeing? No Information not available 12/04/2023 What Is Your Level Of Caffeine Consumption? Occasional Information not available 05/19/2024 In The 14 Days Before Symptom Onset, Have You Had Close Contact With A Laboratory-confi rmed COVID-19 While That Case Was Ill? No Information not available 05/19/2024 In The 14 Days Before Symptom Onset, Have You Had Close Contact With A Person Who Is Under Investigation For COVID-19 While That Person Was Ill? No Information not available 05/19/2024 Have You Been To An Area Known To Be High Risk For COVID-19? No Information not available 05/19/2024 Are You Currently Employed? No Information not available 05/19/2024 Are You Deaf Or Do You Have Serious Difficulty Hearing? Yes Information not available 12/04/2023 What Type Of Diet Are You Following? REGULAR Information not available 05/19/2024 Are There Any Guns Present In Your Home? No Information not available 05/19/2024 What Was The Date Of Your Most Recent Tobacco Screening? 05/19/2024 Information not available 05/19/2024 What Is Your Relationship Status? Information not available 12/04/2023 Do You Use Your Seat Belt Or Car Seat Routinely? Yes Information not available 12/04/2023 Do You Have Smoke And Carbon Monoxide Detectors In Your Home? Yes Information not available 05/19/2024 Do You Feel Stressed (tense, Restless, Nervous, Or Anxious, Or Unable To Sleep At Night)? [id number] Information not available 12/04/2023 Do You Use Any Illicit Or Recreational Drugs? No Information not available 05/19/2024 Do You Use Sunscreen Routinely? Yes Information not available 05/19/2024 How Many Years Have You Smoked Tobacco? 46 Information not available 09/20/2017 Sex: Female Functional Status Question Answer Note LastModified by Organization D etails LastModified Time Are you able to care for yourself? Yes Information n ot available 12/04/2023 Mental Status None recorded. Family History Relationship Description Onset Age of this Age Resolved Age Notes LastModified by Organization Details LastModified Time Father Alcohol abuse [email or web address] Not available 09/20 14:24:03 Mother Malignant tumor of colon [email or web address] Not available 09/20 14:24:49 Mother Depressive disorder [email or web address] Not available 09/20 14:24:58 Mother Osteoporosis [email or web address] Not elsie ilable 09/20/2017 14:25:08 Medical History Condition Response Coronary Artery Disease N Other N Atrial Fibrillation N High Blood Pressure Y Thyroid Problems N Kidney or Bladder Problems N GI Problems N Depression N COPD Y Blood Clots N Skin Problems N Anemia N Heart Attack ([place]) N Diabetes N Anxiety Disorder Y Muscle, Joint, or Bone Problems N Seizures/Epilepsy N Acid Reflux (GERD) N Cancer N Stroke N Asthma N Allergies N High Cholesterol N Hepatitis N Liver Disease N Headaches N Osteoporosis N Heart Failure N Gynecological HistoryNo gynecological history recorded. Obstetrics History GPAL:G 0 P 0 0 0 0 Immunizations Vaccine Type Date Status Note Provider Nam e and Address Organization Details Recorded Time Influenza, high-dose, trivalent, PF 4 completed Linda Nagy MD Attn: Accounting[address] [place], [address], [facility] - [facility] 05/23/2024 16:43:02 pneumococcal, unspecified formulation 7 completed Not Available [facility] 02/27/2021 11:53:22 Influenza, split virus, quadrivalent, preservative 8 completed Not Available [facility] 02/27/2021 11:53:22 Past Encounters Encounter ID Performer Location Encounter Start Date Encounter Closed Date Diagnosis/Indication Diagnosis SNOMED-CT Code Diagnosis ICD10 Code [id number] [facility] [address] [place] [address] [id number] 09/20/2017 13:49:27 09/20/2017 15:36:58 Chronic obstructive pulmonary disease 92676345 J44.9 Sleep apnea 94782317 G47 .30 Degenerati ve joint disease involving multiple joints 480027932 M15.9 Obesity 171999148 E66.9 Dyslipidemia 139521177 E 78.5 Acid reflux 021394779 K2 1.9 Depressive disorder 3548 9007 F32.1 Essential hypertension 11187303 I10 Screening mammography 24 915477 Z12.31 [id number] [facility] [address] [place] [address] [id number] 12/26/2017 15:17:17 12/26/2017 16:28:46 Chronic obstructive pulmonary disease 96441629 J44.9 Degenerati ve joint disease involving multiple joints 379505108 M15.9 Essential hypertension 51029847 I10 Obesity 215267567 E66.9 [id number] [facility] [address] [place] [address] [id number] 03/28/2018 14:56:10 03/28/2018 15:50:35 Pneumonia 979887631 J18.9 Chronic ob structive pulmonary disease 62200569 J44.9 [id number] MD Bernadette Vega (Adult Med) [address] [place] [address] [id number] 08/29/2018 16:07:53 09/01/2018 09:14:20 Primary fibromyalgia syndrome 13167855 M79.7 Chronic pain 13430668 G8 9.29 [id number] MD Bernadette Vega (Adult Med) [address] [place] [address] [id number] 01/28/2019 14:58:28 01/28/2019 15:37:22 Essential hypertension 03130974 I10 Chronic ob structive pulmonary disease 78827627 J44.9 Dyslipidemia 928990224 E 78.5 Acid reflux 157430605 K2 1.9 [id number] MD Bernadette Vgea (Adult Med) [address] [place] [address] [id number] 09/24/2019 15:13:47 09/24/2019 16:05:04 Chronic obstructive pulmonary disease 81448053 J44.9 Degenerati ve joint disease involving multiple joints 709685384 M15.9 Postmenopausal state 764 55515 Z78.0 Hypertensive disorder 38 199713 I10 Hyperlipidemia 86260893 E78.5 Acid reflux 144511171 K2 1.9 Chronic low back pain 27 7322473 M54.5 Morbid obesity 743311945 E66.01 [id number] KASSANDRA Che (Adult Med) [address] [place] [address] [id number] 0 11/23/2019 12:21:40 11/27/2019 03:46:25 Low back pain 129456809 M54.5 Anxiety 51258355 F41.9 [id number] MD Bernadette Vega (Adult Med) [address] [place] [address] [id number] 01/08/2020 09:50:30 01/11/2020 11:23:46 Community acquired pneumonia 046404464 J18.9 Essential hypertension 33774529 I10 Asthma 262551545 J45.90 9 Urinary tr act infectious disease 31087243 N39.0 [id number] MD Bernadette Vega (Adult Med) [address] [place] [address] [id number] 03/25/2020 09:39:25 03/28/2020 18:47:51 Community acquired pneumonia 677141941 J18.9 [id number] MD Bernadette Vega (Adult Med) [address] [place] [address] [id number] 04/21/2020 08:17:26 04/25/2020 10:54:55 Community acquired pneumonia 759185348 J18.9 Essential hypertension 26923107 I10 Chronic ob structive pulmonary disease 35585842 J44.9 [id number] MD Bernadette Vega (Adult Med) [address] [place] [address] [id number] 05/10/2020 08:27:26 05/13/2020 13:02:17 Acute low back pain 877353078 M54.5 [id number] MD Bernadette Vega (Adult Med) [address] [place] [address] [id number] 05/27/2020 08:04:27 05/30/2020 10:42:21 Community acquired pneumonia 053390741 J18.9 Chronic low back pain 27 1691719 M54.5 [id number] MD Bernadette Torres (Adult Med) [address] [place] [address] [id number] 12/04/2023 15:09:44 12/04/2023 16:19:21 Pressure injury of buttock 081276491 L89.309 Chronic ob structive pulmonary disease 85781539 J44.9 Chronic hy poxemic respiratory failure 968527765 J96.11 Hearing loss 86482364 H9 1.93 Essential hypertension 02923271 I10 [id number] MD Bernadette Torres (Adult Med) [address] [place] [address] [id number] 05/19/2024 14:56:18 05/19/2024 16:15:03 Administration of influenza vaccine 34169641 Z23 Anxiety 92069248 F41.9 Chronic ob structive pulmonary disease 79139648 J44.9 Chronic hy poxemic respiratory failure 912693972 J96.11 Essential hypertension 58561389 I10 Gastroesop hageal reflux disease without esophagitis 572750723 K21.9 Hyperlipidemia 49908534 E78.5 Health Concerns Section Related Observation LastModified by Organization Detai ls LastModified Time None Recorded Concern Status LastModified by Organization Details LastModified Time None Recorded Advance Directives Directive N: Payers Encounter Date Sequence Insurance Name Policy Number Policy Williamson Covered Member ID Williamson Member ID Guarantor Name 04/21/2020 2 [place]ARE OR MEDICARE REPLACEMENT PRIMARY) Phoebe Hillman [id number] Phoebe Hillman 04/21/2020 1 [facility] (MEDICARE REPLACEMENT/AD VANTAGE - HMO) [id number] Phoebe Hillman [id number] Phoebe Rafy 05/10/2020 2 [place]IC[place] REPLACEMENT PRIMARY) Phoebe Rafy [id number] Phoebe Wilkinson 05/10/2020 1 [facility] (MEDICARE REPLACEMENT/AD VANTAGE - HMO) [id number] Phoebe Wilkinson [id number] Phoebe Rafy 05/27/2020 2 [place] OR MEDICARE REPLACEMENT PRIMARY) Phoebe Wilkinson [id number] Phoebe Wilkinson 05/27/2020 1 [facility] (MEDICARE REPLACEMENT/AD VANTAGE - HMO) [id number] Phoebe Rafy [id number] Phoebe Rafy 12/04/2023 1 [facility] (MEDICARE REPLACEMENT/AD VANTAGE - HMO) [id number] Phoebe Rafy [id number] Phoebe Wilkinson 05/19/2024 1 [facility] (MEDICARE REPLACEMENT/AD VANTAGE - HMO) [id number] Phoebe Rafy [id number] Phoebe Rafy Notes Date Note Type Note Provider Name and Address Organization Details Recorded Time 04/21/2020 text/html This is phone vi sit, due to fletcher virus pandemic, she understood and agreed, she was D/C from hospital for community acquired pneumonia, Allergic to amlodipine, plaquenil and quinapril. Has enough medications refilled. recuperating at home. Jason Wiggins MD Attn: Accounting[address] [place], [address], [facility] 04/21/2020 17:03:44 05/10/2020 text/html This is phone vi sit, due to fletcher virus pandemic, allergic to amlodipine, plaquenil and quinapril, has history of back pain, has gone to pain clinic , got hydrocodone but not working, for the past 2 weeks , has different lower back pain, can not walk, wants x ray , reluctantly will take at [facility], she wants to find out why? first. but been advised to go to ER if she has to by ambulance. Jason Wiggins MD Attn: Accounting[address] [place], [address], [facility] - [facility] 05/10/2020 16:31:11 05/27/2020 text/html This is phone vi sit, due to fletcher virus pandemic,she understood and agreed, allergic to amlodipine, plaquenil and quinapril, just been D?C from hospital recently for pneumonia, recuperating , no shortness of breathing, still on antibiotics .Also has chronic lower back pain from old compression fracture , got pain medications from Dr. Rock. Jason Wiggins MD Attn: Accounting[address] [place], [address], [facility] 05/27/2020 11:03:18 12/04/2023 text/html 83-year-old mult iple medical problems hyperlipidemia GERD COPD with chronic hypoxic respiratory failure sleep apnea hard of hearing compression fractures of the back recently placed into [facility] facility for [facility] care and has a sore on her buttock Linda Nagy MD Attn: Accounting[address] [place], [address], [facility] 12/22/2023 14:44:36 05/19/2024 text/html suffered nonoperative fracture of left greater trochanter slowly made recovery. Chronic hypoxic respiratory failure stable COPD no cough or wheezing at this time. Hypertension no headache or dizziness. Dyslipidemia taking her atorvastatin without side effect. GERD is asymptomatic this time restless legs stable Linda Nagy MD Attn: Accounting[address] [place], [address], [facility] 05/23/2024 16:46:51 OBGyn Episode No OBEpisode recorded.
--- OUTSIDE RECORDS SUMMARY | 2024-08-05 02:28 | XMS_ITS | Continuity of Care Document ---
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 Was recommended to stay up-to-date on COVID and RSV and pneumonia immunizations. As far as the lesion on her lower extremity she has been advised that this could represent a skin cancer she was told that also by her briquette machine operator helper and that if it was a melanoma that it could spread and be fatal and she voiced understanding and said that what the shape that her lungs are in she is not worried about a skin lesion at this time she will see me back in couple of months if she changes her mind we will make referral to Dermatology or to the briquette machine operator helper that wanted to excise that lesion. [email or web address] Not available 05/23/2024 16:45:53 Plan of Treatment Reminders Order Date Submit Date Provider Last Modified By Organization Details Last Modified Time Details Appointments ANY 15 025 02:30PM Eusebio Nagy MD Not available Not available Not available Lab None record ed. Referral None record ed. Procedures None record ed. Surgeries None record ed. Imaging None record ed. Medication Orders None record ed. Patient TargetsNo targets recorded. Patient InstructionsNo instructions recorded. Reason for Referral None Reported. Problems Name Problem SNOMED Code Status Onset Date Resolution Date Notes Provider Name and Address Organization Details Recorded Time Low back pain 589111343 Active 2019 Not Available [facility] 02:56:10 Anxiety 31829620 Active 2019 Not Available [facility] 1 02:56:11 Pressure injury of buttock 305689056 Active 2023 Eusebio Nagy MD Attn: Accounting ,[address] [place], [address] , [facility] 4 14:43:56 Chronic obstructive pulmonary disease 57758732 Active 2023 Eusebio Nagy MD Attn: Accounting ,[address] [place], [address] , [facility] 4 14:43:57 Chronic hypoxemic respiratory failure 743992509 Active 2023 Eusebio Nagy MD Attn: Accounting ,[address] [place], [address] , [facility] 4 14:43:58 Essential hypertension 33808182 Active 2023 Eusebio Nagy MD Attn: Accounting ,[address] [place], [address] , [facility] 4 14:44:08 Gastroesophag eal reflux disease without esophagitis 871027545 Active 2023 Eusebio Nagy MD Attn: Accounting ,[address] [place], [address] , [facility] 4 16:46:22 Hyperlipidemi a 69107970 Active 2023 Eusebio Nagy MD Attn: Accounting ,[address] [place], [address] , [facility] 4 16:46:28 Problem Notes None recorded. Procedures Surgical History Date Name Laterality Status Provider Name and Address Organization Details Recorded Time Appendectomy completed JOSE Allen [facility] 09/20/2017 14:23:18 Eye Surgery completed Austen Conte MA [facility] 09/20/2017 14:23:25 Hernia Repair completed JOSE Allen [facility] 09/20/2017 14:23:31 Joint Replacement completed Austen Conte MA [facility] 09/20/2017 14:23:38 Knee Surgery completed Austen Conte MA [facility] 09/20/2017 14:23:45 Dilation and Curettage completed Austen Conte MA [facility] 09/20/2017 14:23:50 Imaging Results None recorded. Procedure Notes None recorded. Medical Equipment None Reported. Allergies Allergen ID Allergen Name Allergen Category Reaction Reaction Severity Criticality Documentation Date Start Date Code Code System Note Provider Name and Address Organization Details Recorded Time 682865 Cymbalta medicatio n Not available Not available Not available 09/20/2017 62497 4 RxNorm Jason Wiggins MD Attn: Accountin g,[address] [facility], [place], [place], [address] [place] [address] 2, [facility] 8 15:34:01 659591 Plaquenil medicatio n rash moderate Not available 03/28/2018200746 2 RxNorm Jason Wiggins MD Attn: Accountin g,[address] [facility], [place], [place], [address] [place] [address] 2, [facility] 8 15:32:40 776850 quinapril medicatio n itching moderate Not available 03/28/20182014 66240 RxNorm Jason Wiggins MD Attn: Accountin g,[address] [facility], [place], [place], [address] [place] [address] 2, [facility] 8 15:33:55 305738 amlodipin e medicatio n itching Not available Not available 12/22/2019 23521 RxNorm Austen Conte MA null, [facility] 0 11:49:48 Medications Name Sig Start Date Stop Date Status Note LastModified by Organization Details LastModified Time diclofena c sodium dr 75 mg tbec 12/03 completed Not Available Not Available Not Available hydrochlo rothiazid e 12.5 mg caps 12/03 [...] Not Available Not Available Not Available azithromy mumtza 250 mg tablet 10/06 completed Not Available [...] completed Not Available Not Available Not Available Oyst-Fidel- D 500 500 mg-5 mcg (200 unit) [...] Available Not Available Vitals Date Recorded Body height Body mass index (BMI) Body weight Heart rate Oxygen saturation Oxygen saturation in Arterial blood by Pulse oximetry Inhaled oxygen flow rate Systolic blood pressure Diastolic blood pressure Provider Name and Address Organization Details Last Updated DateTime 4 149.86 cm 21.8 kg/m2 40842.2 6 g 73 /min 98 % 98 % 3 L/min 114 mm[Hg] 74 mm[Hg] Jolene Vaca MA [place] - [facility] 15:12:40 Social History Question Answer Notes LastModified by Organizat ion Details LastModified Time Tobacco Smoking Status Former Smoker cigarettes Austen Conte MA [place], [place] - [facility] 09/20/2017 14:25:29 Do You Have [...] Anxious, Or Unable To Sleep At Night)? [id number] Information not available 12/04/2023 Do You Use [...] Atrial Fibrillation N High Blood Pressure Y Kidney or Bladder Problems N Thyroid Problems N GI Problems N Depression N COPD Y Blood Clots N Skin Problems N Anemia N Heart Attack ([place]) N Diabetes N Anxiety Disorder Y Muscle, [...] Time Influenza, high-dose, trivalent, PF 4 completed Eusebio Nagy MD Attn: Accounting,[address] [facility], [place], [address], [facility] 05/23/2024 16:43:02 pneumococcal, unspecified formulation 7 completed Not Available [facility] 02/27/2021 11:53:22 Influenza, split virus, quadrivalent, preservative 8 completed Not Available [facility] 02/27/2021 11:53:22 Past Encounters Encounter ID Performer Location Encounter Start Date Encounter Closed Date Diagnosis/Indication Diagnosis SNOMED-CT Code Diagnosis ICD10 Code [id number] Eusebio Nagy MD [facility] (Adult Med) [address] [place] [address] 05/19/2024 14:56:18 05/19/2024 16:15:03 Administration of influenza vaccine 01187205 Z23 Anxiety 78375483 F41.9 Chronic ob structive pulmonary disease 92261201 J44.9 Chronic hy poxemic respiratory failure 751635158 J96.11 Essential hypertension 27444417 I10 Gastroesop hageal reflux disease without esophagitis 593544795 K21.9 Hyperlipidemia 90464603 E78.5 Health Concerns Section Related Observation LastModified by Organization Detai ls LastModified Time None Recorded Concern Status LastModified by Organization Details LastModified Time None Recorded Payers Encounter Date Sequence Insurance Name Policy Number Policy Williamson Covered Member ID Williamson Member ID Guarantor Name 05/19/2024 1 [facility] (MEDICARE REPLACEMENT/A DVANTAGE - HMO) [id number] Phoebe Rafy [id number] Phoebe Rafy Notes Date Note Type Note Provider Name and Address Organization Details Recorded Time 05/19/2024 text/html suffered nonoperative fracture of left greater trochanter slowly made recovery. Chronic hypoxic respiratory failure stable COPD no cough or wheezing at this time. Hypertension no headache or dizziness. Dyslipidemia taking her atorvastatin without side effect. GERD is asymptomatic this time restless legs stable Eusebio Nagy MD Attn: Accounting[address] [place], [address], [facility] 05/23/2024 16:46:51 OBGyn Episode No OBEpisode recorded.
--- OUTSIDE RECORDS SUMMARY | 2024-08-05 02:28 | XMS_ITS | Data Portability ---
Author Organization [facility], Main Office Address [address] [place] [address] Care Team Providers Care Lead Systems Analyst Name Role Phone LINDA NAGY Primary Care Provider Assessment Encounter Date Assessment Date Assessment LastModified by Organization Details LastModified Time 01/09/2023 01/09/2023 Assessment: Hypogammaglobuline deion Severe COPD Chronic hypercapnic hypoxic respiratory failure Pulmonary nodules Mild OSAHS, AHI = 8, off CPAP due to inconvenience PLMD Iron deficiency anemia s/p Venofer Plan: The following were reviewed and explained to the patient: Chest CT 01/27/21 emphysema, bilateral pulm nodules, peribronchial thickening Split night titration sleep study 12/08/15 AHI = 8, PLMI = 49 Ferritin 08/22/22 11 ng/mL Hgb 08/22/22 11.6 mg% Hct 08/22/22 35.6% Lab data 08/22/22 low IgG2, low IgG3 Dr. Giuseppe Montelongo hematology note 11/08/22 start Venofer every week x 3 weeks PFT 09/26/22 FEV1 0.53 L (34%) Non-pharmacologic therapy options for periodic limb movement disorder include avoidance of aggravating drugs and substances, mental alerting activities, short daily hemodialysis for patients in renal failure, exercise, leg massage, stretching calf muscles, use of a weighted blanket and applied heat. Patient will cut down on caffeine intake. BUN, Creatinine, Vitamin E, Vitamin B12, RBC folate, Iron, TIBC, ESR, Magnesium are within normal limits. Patient gets constipated with oral iron therapy. She would not take them. She has seen Dr. Giuseppe Montelongo for Venofer infusions and is following up with him tomorrow. We will hold off on dopaminergic therapy for now. Oximetry reading at rest: 1. 86% on room air 2. 95% at 1 Lpm continuous delivery Patient may need gammaglobulin infusions during times of infection. Pulmonary rehabilitation may be included in the management of patients with chronic obstructive pulmonary disease (COPD). For respiratory diseases different from COPD, there have been no formal statements regarding patient selection. Pulmonary rehabilitation consists of assessment, exercise, education, and emotional support. It covers the goals of rehabilitation, the techniques of breathing, the necessity of nicotine cessation, the strategies to deal with panic attacks, the rationale of pulmonary medications, and the importance of nutrition. As the patient learns to live with her pulmonary condition through exercise and education, the patient will regain confidence with her abilities and feel improvement in her overall quality of life. The patient's FEV1 is 34%. The patient was enrolled in pulmonary rehabilitation but she postponed it due to weakness. General concepts of pulmonary rehabilitation were explained. Advised to continue not to smoke. Sputum gm stain and culture if purulent. Continue albuterol HFA as needed. Continue Advair HFA 115/21 2 puffs BID per patient choice. She feels that she is not getting any medication in the powder form. Gargle after use. Continue Spiriva Respimat 2.5 mcg 2 puffs daily. The patient does not know how to accurately administer the inhalers. Today, the patient was shown how to take these medications. The proper technique for delivering these medications was instructed. The patient expressed a clear understanding and demonstrated back how to use these medications. Without the proper technique, the patient will not reap the benefits of these medications as the contents will not reach the lower airways as intended to be. Adherence to therapy is advocated. Nonadherence may lead to treatment failure, further progression of the condition, and other complications. Hospitals admissions are often the result of individuals not taking prescription medications accurately. Alternatively, greater adherence to medication regimens have shown to lower rates of hospitalization and decrease total medical costs in patients with chronic medical conditions. Advocated influenza vaccination annually and pneumonia vaccination in 2025. Advocated weight loss through diet and exercise. Patient's ideal body weight according to height and gender is up to 110 lbs. Encouraged patient to adjust caloric intake to maintain/achieve ideal body weight, emphasizing on fruits, vegetables, whole grains, and fat-free or low-fat products. These include lean meats, poultry, fish, beans, eggs, and nuts and foods that are low in saturated fats, trans-fats, cholesterol, salt (sodium), and glycemic index. Stressed the importance of regular exercise up to the patient's capacity limits. In this case, we recommend regular (4 x a week or more) walking or other light activity. Patient to monitor BP daily and bring records to PCP for further management. Follow-up: 9 months, October 2023 or earlier desiree [email or web address] Not available 01/09/2023 16:47:15 03/18/2023 03/18/2023 Continue current therapy she needs a wheelchair to get around in and help get her in and out of doctor's appointments and sometimes even about the house will continue current therapy follow-up in 4 months [email or web address] Not available 03/18/2023 22:22:46 06/17/2023 06/17/2023 Continue current therapy ongoing GERD and stomach issues I have asked her to see GI but does not want to do so at this time I will check a CBC follow-up in 3 months [email or web address] Not available 08/02/2023 12:54:48 01/14/2024 01/14/2024 This note is dictated and transcribed by [email or web address] Software. Magnetic Testing Technician variances may occur. Despite proofreading, typographical errors may occur. Occasional wrong-word or '[id number]' substitutions may have occurred due to the inherent limitations of voice recording. Read the chart carefully and recognize, using context, where substitutions have occurred. [email or web address] Not available 01/14/2024 17:06:54 Plan of Treatment Reminders Order Date Submit Date Provider Last Modified By Organization Details Last Modified Time Details Appointments None recorded. Lab gram stain, sputum 2022 023 [email or web address] 25 [facility], [address] [place], [address], 3 14:05:56 culture, sputum 2022 023 [email or web address] 25 [facility], [address] [place], [address], 3 14:05:56 lipid panel, serum 2022 023 [facility] (Lab), [address] [place], [address], 3 18:07:56 CMP, serum or plasma 2022 023 [facility] (Lab), [address] [place], [address], 3 18:08:17 magnesium, serum or plasma 2022 023 [facility] (Lab), [address] [place], [address], 3 18:08:19 CBC w/ auto diff [address] (Lab), [address] [place], [address], 3 18:06:13 Referral None recorded. Procedures None recorded. Surgeries None recorded. Imaging None recorded. Medication Orders Spiriva Respimat 2.5 mcg/actuati on solution for inhalation 2022 023 [email or web address] [facility], [address] [place], [address], [place], [place], [id number], 3 16:17:48 albuterol sulfate HFA 90 mcg/actuati on aerosol inhaler 2022 023 [email or web address] [facility], [address], [address], [place], [place], [id number], 3 16:15:12 Advair HFA 115 mcg-21 mcg/actuati on aerosol inhaler 2022 023 BRIJESH [facility], [address], [address], [place], [place], [id number], 3 16:15:10 Prolia 60 mg/mL subcutaneou s syringe 2022 023 [facility] [place], [place] [id number], [address] [facility] [place], [id number], 4 13:41:23 metoprolol succinate ER 100 mg tablet,exte nded release 24 hr 2022 023 [email or web address] [facility] #[id number], [address] [place], [id number], 16:31:30 Patient TargetsNo targets recorded. Patient Instructions Encounter Date Encounter Id Patient Instructions Last Modified By Organization Details Last Modified Time 01/09/2023 [id number] complete PFT w/ post bronchodilator spirometry* [email or web address] Not available 09/12/2023 16:40:48 Reason for Referral None Reported. Results Created Date Observation Date Name Description Value Unit Range Abnormal Flag Note LastModifiedBy Organization Detail LastModifiedTime 06/17/2006/17/2023 CBC/C OMPLE TE BLD COUNT W/DIF F white blood cells 7.8 x10'3 /uL 4.2-10 .8 Not Available [facility] (Lab) [address] [place], [address], 06/17/2023 17:44:59 06/17/2006/17/2023 CBC/C OMPLE TE BLD COUNT W/DIF F red blood cells 3.85 x10'6 /uL 3.80-5 .20 Not Available [facility] (Lab) [address] [place], [address], 06/17/2023 17:44:59 06/17/2006/17/2023 CBC/C OMPLE TE BLD COUNT W/DIF F hemoglobin 12.9 g/dL 12.0-1 5.6 Not Available [facility] (Lab) [address] [place], [address], 06/17/2023 17:44:59 06/17/20 23 06/17/2023 CBC/C OMPLE TE BLD COUNT W/DIF F hematocrit 38.6 % 35.7-4 5.7 Not Available [facility] (Lab) [address] [place], [address], 06/17/2023 17:44:59 06/17/2006/17/2023 CBC/C OMPLE TE BLD COUNT W/DIF F mean red cell volume 100.3 fL 82.0-9 9.0 high Not Available [facility] (Lab) [address] [place], [address], 06/17/2023 17:44:59 06/17/20 23 06/17/2023 CBC/C OMPLE TE BLD COUNT W/DIF F mean red cell hemoglobin 33.5 pg 27.0-3 3.0 high Not Available [facility] (Lab) [address] [place], [address], 06/17/2023 17:44:59 06/17/20 23 06/17/2023 CBC/C OMPLE TE BLD COUNT W/DIF F mean RBC HGB concentratio n 33.4 g/dL 31.0-3 6.0 Not Available [facility] (Lab) [address] [place], [address], 06/17/2023 17:44:59 06/17/20 23 06/17/2023 CBC/C OMPLE TE BLD COUNT W/DIF F red cell distribution width 11.4 % 11.8-1 5.5 low Not Available [facility] (Lab) [address] [place], [address], 06/17/2023 17:44:59 06/17/20 23 06/17/2023 CBC/C OMPLE TE BLD COUNT W/DIF F platelets 237 x10'3 /uL 150-40 0 Not Available [facility] (Lab) [address] [place], [address], 06/17/2023 17:44:59 06/17/20 23 06/17/2023 CBC/C OMPLE TE BLD COUNT W/DIF F mean platelet volume 10.0 fL 9.0-12 .4 Not Available [facility] (Lab) [address] [place], [address], 06/17/2023 17:44:59 06/17/2006/17/2023 CBC/C OMPLE TE BLD COUNT W/DIF F neutrophils 69.0 % 39.0-7 2.0 Not Available [facility] (Lab) [address] [place], [address], 06/17/2023 17:44:59 06/17/2006/17/2023 CBC/C OMPLE TE BLD COUNT W/DIF F lymphocytes 22.3 % 16.0-4 7.0 Not Available [facility] (Lab) [address] [place], [address], 06/17/2023 17:44:59 06/17/2006/17/2023 CBC/C OMPLE TE BLD COUNT W/DIF F monocytes 7.0 % 5.0-12 .0 Not Available [facility] (Lab) [address] [place], [address], 06/17/2023 17:44:59 06/17/2006/17/2023 CBC/C OMPLE TE BLD COUNT W/DIF F eosinophils 1.0 % 1.0-7. 0 Not Available [facility] (Lab) [address] [place], [address], 06/17/2023 17:44:59 06/17/2006/17/2023 CBC/C OMPLE TE BLD COUNT W/DIF F basophils 0.3 % 0.0-2. 0 Not Available [facility] (Lab) [address] [place], [address], 06/17/2023 17:44:59 06/17/20 23 06/17/2023 CBC/C OMPLE TE BLD COUNT W/DIF F immature granulocytes 0.4 % 0.00-0 .50 Not Available [facility] (Lab) [address] [place], [address], 06/17/2023 17:44:59 06/17/20 23 06/17/2023 CBC/C OMPLE TE BLD COUNT W/DIF F neutrophils, absolute count 5.41 x10'3 /uL 1.5-8. 0 Not Available [facility] (Lab) [address] [place], [address], 06/17/2023 17:44:59 06/17/2006/17/2023 CBC/C OMPLE TE BLD COUNT W/DIF F lymphocytes, absolute count 1.75 x10'3 /uL 1.07-3 .43 Not Available [facility] (Lab) [address] [place], [address], 06/17/2023 17:44:59 06/17/2006/17/2023 CBC/C OMPLE TE BLD COUNT W/DIF F monocytes, absolute count 0.55 x10'3 /uL 0.29-0 .99 Not Available [facility] (Lab) [address] [place], [address], 06/17/2023 17:44:59 06/17/20 23 06/17/2023 CBC/C OMPLE TE BLD COUNT W/DIF F eosinophils, absolute count 0.08 x10'3 /uL 0.02-0 .53 Not Available [facility] (Lab) [address] [place], [address], 06/17/2023 17:44:59 06/17/2006/17/2023 CBC/C OMPLE TE BLD COUNT W/DIF F basophils, absolute count 0.02 x10'3 /uL 0.01-0 .08 Not Available [facility] (Lab) [address] [place], [address], 06/17/2023 17:44:59 06/17/20 23 06/17/2023 CBC/C OMPLE TE BLD COUNT W/DIF F immature granulocytes ,absolute 0.03 x10'3 /uL 0.00-0 .05 Not Available [facility] (Lab) [address] [place], [address], 06/17/2023 17:44:59 06/17/20 23 06/17/2023 CBC/C OMPLE TE BLD COUNT W/DIF F nucleated red blood cells 0.0 % -0 Not Available [facility] (Lab) [address] [place], [address], 06/17/2023 17:44:59 06/17/20 23 06/17/2023 CBC/C OMPLE TE BLD COUNT W/DIF F NRBC# 0.00 x10'3 /uL Not Available [facility] (Lab) [address] [place], [address], 06/17/2023 17:44:59 06/17/20 23 06/17/2023 LIPID PANEL cholesterol 280 mg/dL 140-19 9 high NIH MIKEY NSUS RECOM MENDA TION FOR JE STERO L: ADULT CHILD LOW RISK: <200 <170 BORDE RLINE : <200- 239 ----- HIGH RISK: >240 >200 Not Available [facility] (Lab) [address] [place], [address], 06/17/2023 18:07:56 06/17/2006/17/2023 LIPID PANEL triglyceride s 297 mg/dL 0-150 high NIH MIKEY NSUS REPOR T RECOM MENDA TION FOR TRIGL YCERI DESIREE: ADULT CHILD LOW RISK: <150 ----- BODER LINE: 150-1 99 ----- HIGH RISK: >200 ----- Not Available [facility] (Lab) [address] [place], [address], 06/17/2023 18:07:56 06/17/20 23 06/17/2023 LIPID PANEL HDL cholesterol 46 mg/dL 40- Not Available [facility] (Lab) [address] [place], [address], 06/17/2023 18:07:56 06/17/20 23 06/17/2023 LIPID PANEL LDL cholesterol, calculated 175 mg/dL 0-130 high NIH MIKEY NSUS REPOR T RECOM MENDA TIONS FOR LDL: ADULT CHILD LOW RISK <130 <110 (OPTI MAL LDL) <100 ----- BORDE RLINE : 130-1 59 ----- HIGH RISK: >160 >130 A TRIGL YCERI DE RESUL T >400 INVAL IDATE S THE CALCU LATIO N FOR LDL FRACT IONAT ION - THE LDL RESUL T WILL NOT BE REPOR LINDY. Not Available [facility] (Lab) [address] [place], [address], 06/17/2023 18:07:56 06/17/20 23 06/17/2023 COMPR EHENS MARY METAB OLIC PANEL sodium 137 mmol/ L 137-14 5 Not Available [facility] (Lab) [address] [place], [address], 06/17/2023 18:25:18 06/17/20 23 06/17/2023 COMPR EHENS MARY METAB OLIC PANEL potassium 3.5 mmol/ L 3.5-5. 1 Not Available [facility] (Lab) [address] [place], [address], 06/17/2023 18:25:18 06/17/20 23 06/17/2023 COMPR EHENS MARY METAB OLIC PANEL chloride 90 mmol/ L 98-107 low Not Available [facility] (Lab) [address] [place], [address], 06/17/2023 18:25:18 06/17/20 23 06/17/2023 COMPR EHENS MARY METAB OLIC PANEL carbon dioxide 41 mmol/ L 22-30 high Not Available [facility] (Lab) [address] [place], [address], 06/17/2023 18:25:18 06/17/2006/17/2023 COMPR EHENS MARY METAB OLIC PANEL anion gap 9.5 mmol/ L 14-22 low Not Available [facility] (Lab) [address] [place], [address], 06/17/2023 18:25:18 06/17/20 23 06/17/2023 COMPR EHENS MARY METAB OLIC PANEL glucose 112 mg/dL 70-99 high Not Available [facility] (Lab) [address] [place], [address], 06/17/2023 18:25:18 06/17/20 23 06/17/2023 COMPR EHENS MARY METAB OLIC PANEL BUN 25 mg/dL 8-19 high Not Available [facility] (Lab) [address] [place], [address], 06/17/2023 18:25:18 06/17/20 23 06/17/2023 COMPR EHENS MARY METAB OLIC PANEL creatinine 0.69 mg/dL 0.66-1 .25 Not Available [facility] (Lab) [address] [place], [address], 06/17/2023 18:25:18 06/17/20 23 06/17/2023 COMPR EHENS MARY METAB OLIC PANEL GFR >60 Refer ence Range : [place] ge GFR Healt hy Adult : >60 mL/mi n/1.7 3 m2 Chron ic Kidne y Disea se: 15-60 mL/mi n/1.7 3 m2 Kidne y Failu re: <15/m L/min /1.73 m2 www.n iddk. nih.g ov The MDRD study equat ion has not been valid ated in child garth <18 years of age; pregn ant women ; the elder ly >85 years of age; or in some racia l or ethni c subgr oups, such as Hispa nics. Outsi de the valid ated neha eters , estim ated GFR is less accur ate, requi ring clini nimco judgm ent on a case- by-ca se basis . Clini nimco inter preta tion for other races and ages must be made by the clini brina. The MDRD study equat ion has not been valid ated for the evalu ation of serum creat inine relat ed to nutri jim l statu s or medic ation usage . For perso ns <18 years of age, a pedia tric GFR calcu lator is avail able on the [facility] websi te: https ://fawn w.kid louis.o rg/pr ofess ional s/kdo qi/gf r_cal culat or Not Available [facility] (Lab) [address] [place], [address], 06/17/2023 18:25:18 06/17/20 23 06/17/2023 COMPR EHENS MARY METAB OLIC PANEL alkaline phosphatase 57 U/L 38-126 Not Available [facility] (Lab) [address] [place], [address], 06/17/2023 18:25:18 06/17/20 23 06/17/2023 COMPR EHENS MARY METAB OLIC PANEL alanine aminotransfe rase 15 U/L 0-35 Not Available [facility] (Lab) [address] [place], [address], 06/17/2023 18:25:18 06/17/20 23 06/17/2023 COMPR EHENS MARY METAB OLIC PANEL aspartate aminotransfe rase 17 U/L 15-37 Not Available [facility] (Lab) [address] [place], [address], 06/17/2023 18:25:18 06/17/20 23 06/17/2023 COMPR EHENS MARY METAB OLIC PANEL bilirubin, total 0.40 mg/dL 0.20-1 .30 Not Available [facility] (Lab) [address] [place], [address], 06/17/2023 18:25:18 06/17/20 23 06/17/2023 COMPR EHENS MARY METAB OLIC PANEL calcium 9.8 mg/dL 8.4-10 .2 Not Available [facility] (Lab) [address] [place], [address], 06/17/2023 18:25:18 06/17/20 23 06/17/2023 COMPR EHENS MARY METAB OLIC PANEL total protein 7.4 g/dL 6.3-8. 2 Not Available [facility] (Lab) [address] [place], [address], 06/17/2023 18:25:18 06/17/20 23 06/17/2023 COMPR EHENS MARY METAB OLIC PANEL albumin 4.1 g/dL 3.0-4. 4 Not Available [facility] (Lab) [address] [place], [address], 06/17/2023 18:25:18 06/17/20 23 06/17/2023 COMPR EHENS MARY METAB OLIC PANEL globulin 3.3 g/dL 2.6-4. 2 Not Available [facility] (Lab) [address] [place], [address], 06/17/2023 18:25:18 06/17/20 23 06/17/2023 COMPR EHENS MARY METAB OLIC PANEL A/G ratio 1.2 ratio 1.0-2. 0 Not Available [facility] (Lab) [address] [place], [address], 06/17/2023 18:25:18 06/17/20 23 06/17/2023 MAGNE SIUM magnesium 1.8 mg/dL 1.6-2. 3 Not Available [facility] (Lab) [address] [place], [address], 06/17/2023 18:08:19 10/28/19 24 10/28/2023 CT, chest , w/o contr ast No observ ation [facility] [address] [place], [address], 10/28/2023 12:52:28 Result Notes None recorded. Problems Name Problem SNOMED Code Status Onset Date Resolution Date Notes Provider Name and Address Organization Details Recorded Time Divertic ulitis of colon 223395063 Active s/p surgery in 2000 Not Available [facility] 3 06:06:21 Leukocyt osis 768211763 Completed Not Available [facility] 3 00:59:16 Fracture of coccyx 485539064 Active Not Available [facility] 3 06:06:21 Chronic obstruct mary pulmonar y disease 12264553 Active Not Available [facility] 3 06:06:21 Increase d frequenc y of urinatio n 915173006 Active 2021 Not Available [facility] 3 06:06:21 Chronic depressi on 085939784 Active Not Available [facility] 3 06:06:21 Pneumoni a 532784055 Completed Not Available [facility] 3 00:59:17 Gastroes ophageal reflux disease 275513386 Active Not Available [facility] 3 06:06:21 Polyp of vagina 77953640 Active Not Available [facility] 3 06:06:21 Vitamin D deficien cy 95820195 Active 2021 Not Available [facility] 3 06:06:21 Hyperten sive disorder 00665048 Active Not Available [facility] 3 06:06:21 Osteoart hritis 844596460 Active s/p left knee suregry 2009 Not Available [facility] 3 06:06:21 Obesity 568274868 Active Not Available [facility] 3 06:06:21 Cramp in lower limb 833885465 Completed Not Available [facility] 3 00:59:18 Anxiety 38743038 Active Not Available [facility] 3 06:06:21 Hyperlip idemia 88530665 Active Not Available [facility] 3 06:06:21 Acute myocardi al infarcti on 67970685 Active Not Available [facility] 3 06:06:21 Allergic rhinitis 34738224 Active Not Available [facility] 3 06:06:21 Osteopor osis 73690293 Active 2021 Not Available [facility] 3 06:06:21 Hemorrho ids 33232297 Active 2021 Not Available [facility] 3 06:06:21 Obstruct mary sleep apnea syndrome 01213700 Active Not Available [facility] 3 06:06:21 Overacti ve urinary bladder 812215002 Active 2021 Not Available [facility] 3 06:06:21 Primary fibromya lgia syndrome 37992206 Active Not Available [facility] 3 06:06:22 Iron deficien cy anemia 59971955 Active 2022 Not Available [facility] 3 06:06:21 Anemia 815290141 Active 2022 Not Available [facility] 3 06:06:21 Dystroph ia unguium 85565161 Active 2023 Shar Joseph DPM [address], [address], [place], [address] , [facility] 4 21:44:02 Malignan t melanoma 814904894 Active 2023 Shar Joseph DPM [address], [address], [place], [address] , [facility] 4 17:07:05 Compound nevus of skin 996765607 Active 2023 Shar Joseph DPM [address], [address], [place], [address] , [facility] 4 17:07:10 Notes:Medical History: Synco pe Anxiety/Depression Bilateral hearing loss Sialolithiasis Multinodular thyroid Rhinitis Eosinophils 70/uL IgE 17 IU/mL Hypogammaglobulinemia (IgG2, IgG3) AAT PiMM 165 mg% Severe COPD, postponed pulm rehab Lingular bronchiectasis Pulm hypertension Chronic resp failure on 3 Lpm O2, off Trilogy Bibasilar atelectasis Bilateral pulm nodules Mild OSAHS, AHI = 8, off CPAP Hypertension CHF Supraumbilical hernia Hiatal hernia with MIGUEL Duodenal diverticulum Hepatic cysts Diverticulosis Hemorrhoids Urge urinary incontinence Bilateral ovarian cysts PLMD Normocytic iron deficiency anemia s/p Venofer 2022 Vit D deficiency Spine osteopenia Hip osteoporosis Thoracic kyphosis Odontoid process fracture T3, T7, T10, T11, T12, L2 fractures Cervical spondylosis Left shoulder osteoarthritis Procedure History: Right thumb pin placement 1989 DOLLY 1991 Colon resection 1999 Bladder sling 2000 Occupational History: [employer] Some problems listed in Documents: #[id number], #[id number] could not be added to this patient's chart. Please review these documents and add these problems to the patient's chart manually as needed. Problem Notes None recorded. Procedures Surgical History Date Name Laterality Status Provider Name and Address Organization Details Recorded Time 01/14/20 24 Nail Debridement completed Shar Joseph DPM [address], [address], [facility] 01/14/2024 17:06:49 10/30/19 24 other completed Debby Ramos MA [facility] 11/07/2023 12:48:44 12/31/19 15 Most Recent Bone Density completed Not Available [facility] 10/03/2022 00:52:20 Genitourinary Surgery completed Not Available [facility] 10/03/2022 00:52:23 lumpectomy of left breast completed Not Available [facility] 10/03/2022 00:52:23 Hysterectomy, Partial completed Not Available [facility] [facility] 10[facility]22 00:52:23 Hernia Repair completed Not Available [facility] 10/03/2022 00:52:23 Tubal Ligation completed Not Available [facility] 10/03/2022 00:52:23 Colon Resection completed Not Available [facility] 10/03/2022 00:52:23 total knee replacement completed Not Available [facility] 10/03/2022 00:52:23 thumb surgery completed Not Available [facility] 10/03/2022 00:52:23 Colonoscopy completed Not Available [facility] 10/03/2022 00:52:23 Cataract Surgery completed Marcella Gómez [facility] 10/01/2023 16:13:36 Imaging Results Imaging Date Name Status LastModified by Organiz ation Details LastModified Time 10/28/2023 CT, chest, w/o contrast completed [address] [place], [address], 10/28/2023 12:52:28 Procedure Notes None recorded. Medical Equipment None Reported. Allergies Allergen ID Allergen Name Allergen Category Reaction Reaction Severity Criticality Documentation Date Start Date Code Code System Note Provider Name and Address Organization Details Recorded Time 1675 quinapril medicatio n cough Not available Not available 10/03/2022 42129 RxNorm Not Available [facility] 3 01:09:56 1676 Plaquenil medicatio n rash Not available Not available 10/03/202261730 2 RxNorm Not Available [facility] 3 01:09:57 1677 nifedipin e medicatio n other Not available Not available 10/03/2022 7417 RxNorm genit al swell ing, frequ ent urina tion Not Available [facility] 3 01:09:57 1678 losartan medicatio n flushing severe Not available 10/03/2022 83615 RxNorm Not Available [facility] 3 01:09:57 1679 Cymbalta medicatio n cough Not available Not available 10/03/2022 37026 4 RxNorm Not Available [facility] 3 01:09:57 10849 trazodone medicatio n Not available Not available Not available 10/01/2023 99101 RxNorm Marcella renteria [facility] 4 16:10:49 07448 amitripty line medicatio n Not available Not available Not available 10/01/2023 704 RxNorm Marcella renteria [facility] 4 16:11:02 Medications Name Sig Start Date Stop Date Status Note LastModified by Organization Details LastModified Time cyclobenz aprine 10 mg tablet TAKE 1 TABLET DAILY AT BEDTIME NEEDED 04/09 completed Not Available Not Available Not Available atorvasta tin 40 mg tablet qd active Not Available Not Available Not Available buspirone 5 mg tablet 08/01 completed Not Available Not Available Not Available bupropion HCl SR 150 mg tablet,12 hr sustained -release 01/15 completed Not Available Not Available Not Available clonidine HCl 0.1 mg tablet Take 1 tablet twice a day by oral route. 11/12 completed Not Available Not Available Not Available prednison e 10 mg tablet TAKE 5 TABLETS BY MOUTH ONCE DAILY FOR 3 DAYS 4 DAILY FOR 3 DAYS 3 DAILY FOR 3 DAYS 2 DAILY FOR 3 DAYS THEN 1 TAB DAILY THEREAFT ER. active Not Available Not Available No t Available venlafaxi ne ER 75 mg capsule,e xtended release 24 hr TAKE 1 CAPSULE DAILY active Not Available Not Available No t Available paroxetin e 10 mg tablet 01/15 completed Not Available Not Available Not Available atorvasta tin 20 mg tablet TAKE 1 TABLET BY MOUTH EVERY DAY active Not Available Not Available No t Available venlafaxi ne 75 mg tablet take 1 tablet by mouth daily 01/15 completed Not Available Not Available Not Available ipratropi um 0.5 mg-albute rol 3 mg (2.5 mg base)/3 mL nebulizat ion soln Inhale 3 mL every 4 hours by nebuliza tion route. 11/12 completed Not Available Not Available Not Available clindamyc in HCl 300 mg capsule TAKE 1 CAPSULE BY MOUTH EVERY 8 HOURS X 7 DAYS 11/08 completed Not Available Not Available Not Available albuterol sulfate 2.5 mg/3 mL (0.083 %) solution for nebulizat ion INHALE 1 AMPULE (3 ML) IN NEBULIZE R 3 TIMES A DAY NEEDED active Not Available Not Available No t Available trazodone 50 mg tablet TAKE 1 TABLET AT BEDTIME. 11/24 completed Not Available Not Available Not Available azithromy mumtaz 250 mg tablet TAKE 2 TABLETS (500 MG) BY ORAL ROUTE ONCE DAILY FOR 1 DAY THEN 1 TABLET (250 MG) BY ORAL ROUTE ONCE DAILY FOR 4 DAYS active Not Available Not Available No t Available fluconazo le 150 mg tablet active Not Available Not Available Not Available Vicodin 5 mg-500 mg tablet Take 1 tablet as needed by oral route. 2012 active Not Available Not Available Not Avai lable ampicilli n 500 mg capsule Take 1 capsule 3 times a day by oral route for 7 days. active Not Available Not Available No t Available hydrocodo ne 5 mg-acetam inophen 325 mg tablet TAKE 1 TABLET BY MOUTH EVERY 6 HOURS NEEDED active Not Available Not Available No t Available sucralfat e 100 mg/mL oral suspensio n SHAKE LIQUID AND TAKE 10 ML BY MOUTH FOUR TIMES DAILY BEFORE MEALS active Not Available Not Available No t Available ondansetr on HCl 8 mg tablet TAKE 1 TABLET BY MOUTH 3 TIMES A DAY active Not Available Not Available No t Available sucralfat e 1 gram tablet Take 1 tablet 4 times a day by oral route with meals. 11/12 completed Not Available Not Available Not Available naltrexon e 50 mg tablet 01/15 completed Not Available Not Available Not Available ondansetr on HCl 4 mg tablet TK 1 T PO Q 6 H PRN 09/02 completed Not Available Not Available Not Available prednison e 20 mg tablet TAKE ONE TABLET DAILY active Not Available Not Available No t Available lovastati n 40 mg tablet TAKE ONE TABLET DAILY active Not Available Not Available No t Available metoprolo l succinate ER 100 mg tablet,ex tended release 24 hr TAKE 1 TABLET BY MOUTH EVERY DAY active Not Available Not Available No t Available clonazepa m 1 mg tablet Take 1 tablet every day by oral route at bedtime. 03/07 completed Not Available Not Available Not Available clindamyc in HCl 150 mg capsule active Not Available Not Available Not Available venlafaxi ne ER 150 mg capsule,e xtended release 24 hr Take 1 capsule every day by oral route. 01/15 completed Not Available Not Available Not Available diphenoxy late-atro pine 2.5 mg-0.025 mg tablet 08/01 completed Not Available Not Available Not Available hydralazi ne 25 mg tablet 08/20 completed Not Available Not Available Not Available amlodipin e 2.5 mg tablet active Not Available Not Available Not Available metronida zole 500 mg tablet 05/17 completed Not Available Not Available Not Available chlorthal idone 25 mg tablet active Not Available Not Available No t Available amlodipin e 5 mg tablet TAKE ONE TABLET DAILY active Not Available Not Available No t Available prochlorp erazine maleate 10 mg tablet active Not Available Not Available Not Available chlorthal idone 50 mg tablet TAKE 1 TABLET BY MOUTH DAILY. FOLLOW UP active Not Available Not Available No t Available ciproflox acin 500 mg tablet 05/17 completed Not Available Not Available Not Available sulfameth oxazole 800 mg-trimet hoprim 160 mg tablet active Not Available Not Available Not Available hydrocodo ne 10 mg-acetam inophen 325 mg tablet TAKE 1 TABLET BY MOUTH THREE TIMES DAILY NEEDED active Not Available Not Available No t Available omeprazol e 40 mg capsule,d elayed release TAKE 1 CAPSULE DAILY 08/12 completed Not Available Not Available Not Available lovastati n 10 mg tablet Take 1 tablet every day by oral route. 2012 active Not Available Not Available Not Avai lable aspirin 81 mg tablet,de layed release Take 1 tablet every day by oral route. 2017 active Not Available Not Available Not Avai lable tramadol 50 mg tablet 03/07 completed Not Available Not Available Not Available guaifenes in 200 mg tablet TAKE 2 TABLETS EVERY SIX HOURS active Not Available Not Available No t Available hydrocort isone acetate 25 mg rectal supposito ry Insert 1 supposit ory twice a day by rectal route for 10 days. active Not Available Not Available No t Available nortripty line 25 mg capsule 07/11 completed pt never took Not Available Not Available Not Available oxycodone -acetamin ophen 5 mg-325 mg tablet 05/17 completed Not Available Not Available Not Available Tessalon Perles 100 mg capsule Take 1 capsule every 4-6 hours by oral route as needed for 5 days. active Not Available Not Available No t Available clonidine HCl 0.2 mg tablet TAKE ONE TABLET DAILY AT BEDTIME FOR HOT FLASHES 12/13 completed Not Available Not Available Not Available amoxicill in 875 mg tablet 05/17 completed Not Available Not Available Not Available amitripty line 25 mg tablet Take 1 tablet every day by oral route. 01/25 completed Not Available Not Available Not Available temazepam 15 mg capsule TAKE 1 CAPSULE AT BEDTIME NEEDED 08/12 completed Not Available Not Available Not Available nifedipin e ER 60 mg tablet,ex tended release 24 hr Take 1 tablet every day by oral route. 08/01 completed Not Available Not Available Not Available oxycodone -acetamin ophen 10 mg-325 mg tablet 01/25 completed Not Available Not Available Not Available trazodone 100 mg tablet Take 1 TABLET qhs active Not Available Not Available No t Available dicyclomi ne 20 mg tablet TAKE 1 TABLET BY MOUTH 3 TIMES A DAY 03/29 completed pt states it caused vaginal swelling Not Available Not Available Not Available baclofen 10 mg tablet tid 08/12 completed Not Available Not Available Not Available hydrocodo ne 7.5 mg-acetam inophen 325 mg tablet TAKE 1 TABLET BY MOUTH TWICE DAILY NEEDED active Not Available Not Available No t Available cephalexi n 500 mg capsule TK ONE C PO QID 12/12 completed Not Available Not Available Not Available paroxetin e 20 mg tablet 01/15 completed Not Available Not Available Not Available pantopraz ole 40 mg tablet,de layed release TAKE 1 TABLET BY MOUTH EVERY DAY active Not Available Not Available No t Available oseltamiv ir 75 mg capsule 12/13 completed Not Available Not Available Not Available ferrous sulfate 325 mg (65 mg iron) tablet Take 1 tablet twice a day by oral route with meals. 01/25 completed Not Available Not Available Not Available ranitidin e 150 mg tablet active Not Available Not Available Not Available buspirone 10 mg tablet Take 1 tablet twice a day by oral route. 05/25 completed Not Available Not Available Not Available prednison e 50 mg tablet 04/09 completed Not Available Not Available Not Available lidocaine 5 % topical patch APPLY 1 PATCH TO MOST PAINFUL AREA LEAVE ON FOR UP TO 12 HOURS,OF F FOR 12 HOURS BEFORE REAPPLYI NG active Not Available Not Available No t Available promethaz ine 25 mg tablet Take 1 tablet every 4-6 hours by oral route as needed for 5 days. active Not Available Not Available No t Available losartan 25 mg tablet TAKE 1 TABLET BY MOUTH EVERY DAY active Not Available Not Available No t Available Advair Diskus 250 mcg-50 mcg/dose powder for inhalatio n USE 1 INHALATI ON BY MOUTH TWICE DAILY DIRECTED 03/18 completed Not Available Not Available Not Available hydrochlo rothiazid e 12.5 mg capsule 01/25 completed Not Available Not Available Not Available sertralin e 25 mg tablet Take 1 tablet every day by oral route. 07/11 completed made her feel jittery Not Available Not Available Not Available omeprazol e 20 mg capsule,d elayed release TAKE 1 CAPSULE TWICE DAILY 12/12 completed Not Available Not Available Not Available budesonid e 0.5 mg/2 mL suspensio n for nebulizat ion 05/25 completed Not Available Not Available Not Available diclofena c sodium 75 mg tablet,de layed release TAKE ONE TABLET TWICE DAILY 01/26 completed Not Available Not Available Not Available etodolac 400 mg tablet Take 1 tablet twice a day by oral route. active Not Available Not Available No t Available monteluka st 10 mg tablet TAKE ONE TABLET BY MOUTH EVERY DAY 01/25 completed Not Available Not Available Not Available acetamino phen 300 mg-codein e 60 mg tablet TAKE 1 TABLET BY MOUTH THREE TIMES DAILY active Not Available Not Available No t Available hydralazi ne 50 mg tablet TAKE 1 TABLET BY MOUTH TWICE A DAY 08/20 completed Not Available Not Available Not Available norethind bonnie acetate 5 mg tablet TAKE ONE TABLET DAILY active hospital D/c Not Available Not Available Not Available gabapenti n 100 mg capsule TAKE 1 CAPSULE BY MOUTH THREE TIMES A DAY 03/29 completed Not Available Not Available Not Available estradiol 0.5 mg tablet TAKE 1 TABLET BY MOUTH DAILY active Not Available Not Available No t Available lisinopri l 10 mg-hydroc hlorothia zide 12.5 mg tablet TAKE 1 TABLET BY MOUTH EVERY DAY 08/20 completed Not Available Not Available Not Available levofloxa mumtaz 500 mg tablet TK 1 T PO QD 01/15 completed Not Available Not Available Not Available levofloxa mumtaz 750 mg tablet TAKE 1 TABLET BY MOUTH ONCE DAILY FOR 10 DAYS THEN STOP active Not Available Not Available No t Available methylpre dnisolone 4 mg tablets in a dose pack active Not Available Not Available Not Available albuterol sulfate HFA 90 mcg/actua tion aerosol inhaler INHALE 1 INHALATI ON BY MOUTH EVERY 4 HOURS NEEDED active Not Available Not Available No t Available losartan 50 mg-hydroc hlorothia zide 12.5 mg tablet TAKE ONE TABLET DAILY 08/12 completed Not Available Not Available Not Available quinapril 20 mg-hydroc hlorothia zide 12.5 mg tablet TAKE 1 TABLET DAILY 11/27 completed Not Available Not Available Not Available nifedipin e ER 60 mg tablet,ex tended release Take 1 tablet every day by oral route. 03/02 completed pt states she is not taking this Not Available Not Available Not Available ondansetr on 4 mg disintegr ating tablet 12/01 completed Not Available Not Available Not Available cefdinir 300 mg capsule Take 1 capsule twice a day by oral route for 7 days. active Not Available Not Available No t Available fluticaso ne propionat e 50 mcg/actua tion nasal spray,daniel pension 11/08 completed Not Available Not Available Not Available doxycycli ne hyclate 100 mg tablet Take 1 tablet twice a day by oral route for 10 days. 08/20 completed Not Available Not Available Not Available dicyclomi ne 10 mg capsule 03/29 completed caused vaginal swelling Not Available Not Available Not Available progester one micronize d 100 mg capsule 08/01 completed Not Available Not Available Not Available amoxicill in 875 mg-potass ium clavulana te 125 mg tablet Take 1 tablet every 12 hours by oral route as directed for 10 days. active Not Available Not Available No t Available Estrace 0.01% (0.1 mg/gram) vaginal cream active Not Available Not Available Not Available Oyst-Nimco- 500 500 mg (as calcium carbonate 1,250 mg) tablet Take 1 tablet twice a day by oral route. 2012 active Not Available Not Available Not Avai lable metaxalon e 800 mg tablet TAKE 1 TABLET BY MOUTH 3 TIMES A DAY 11/08 completed Not Available Not Available Not Available cyclobenz aprine 5 mg tablet 08/01 completed Not Available Not Available Not Available Spiriva with HandiHale r 18 mcg and inhalatio n capsules Inhale 1 capsule every day by inhalati on route. 12/01 completed Not Available Not Available Not Available duloxetin e 60 mg capsule,d elayed release TAKE 1 CAPSULE DAILY 12/18 completed Not Available Not Available Not Available Oyst-Nimco- D 500 500 mg-5 mcg (200 unit) tablet TAKE 1 TABLET TWICE DAILY 08/01 completed Not Available Not Available Not Available Atrovent HFA 17 mcg/actua tion aerosol inhaler 12/01 completed Not Available Not Available Not Available sildenafi l (pulmonar y hypertens ion) 20 mg tablet TAKE 1 TABLET BY MOUTH THREE TIMES DAILY active Not Available Not Available No t Available Lyrica 75 mg capsule Take 1 capsule 3 times a day by oral route. 12/01 completed Not Available Not Available Not Available chlorhexi dine gluconate 0.12 % mouthwash 12/13 completed Not Available Not Available Not Available acetamino phen 05/17 completed Not Available Not Available Not Available estradiol daily 2012 active Not Available Not Available Not Avai lable Tylenol-C odeine #4 active Not Available Not Available No t Available iron active Not Available Not Availa ble Not Available Vitamin D 1000MG DAILY 11/24 completed Not Available Not Available Not Available Iron (ferrous sulfate) qhs 09/02 completed Not Available Not Available Not Available Vitamin D3 2021 active Not Available Not Available Not Avai lable One A Day 1QD PO 01/25 completed Not Available Not Available Not Available Multi-Vit amins with Iron 08/01 completed Not Available Not Available Not Available diclofena c sodium (bulk) twice daily 2012 active Not Available Not Available Not Avai lable Advair HFA 115 mcg-21 mcg/actua tion aerosol inhaler Inhale 2 puffs twice a day by inhalati on route. active Not Available Not Available No t Available hydrochlo rothiazid e 12.5 mg tablet 11/24 completed Not Available Not Available Not Available estradiol -norethin drone acet 0.5 mg-0.1 mg tablet active Not Available Not Available Not Available Symbicort 160 mcg-4.5 mcg/actua tion HFA aerosol inhaler Inhale 2 puffs twice a day by inhalati on route. active Not Available Not Available No t Available omeprazol e 20 mg tablet,de layed release twice a day 12/12 completed Not Available Not Available Not Available Gavilyte- C 240 gram-22.7 2 gram-6.72 gram-5.84 gram oral solution 12/12 completed Not Available Not Available Not Available GaviLyte- G 236 gram-22.7 4 gram-6.74 gram-5.86 gram oral solution 03/15 completed Not Available Not Available Not Available Prolia 60 mg/mL subcutane ous syringe TO BE ADMINIST ERED IN PHYSICIA NS OFFICE UNDER THE SKIN ONCE EVERY 6 MONTHS. KEEP REFRIDGE RATED, USE WITHIN 14 DAYS AT ROOM TEMPERAT URE active Not Available Not Available No t Available Dulera 200 mcg-5 mcg/actua tion HFA aerosol inhaler active Not Available Not Available Not Available Daliresp 500 mcg tablet active Not Available Not Available Not Available lidocaine 5 % topical ointment 11/22 completed Not Available Not Available Not Available Tudorza Pressair 400 mcg/actua tion breath activated Inhale 1 puff every 12 hours by inhalati on route. 09/12 completed Not Available Not Available Not Available Breo Ellipta 100 mcg-25 mcg/dose powder for inhalatio n 01/25 completed Not Available Not Available Not Available Fluvirin 45 mcg (15 mcg x 3)/0.5 mL intramusc ular suspensio n ADM 0.5ML UTD active Not Available Not Available No t Available sucralfat e malate, polymeriz ed 1 gram/10 mL mucosal paste Take 1 g 3 times a day by mucous route before meals. 05/25 completed Not Available Not Available Not Available Fluzone High-Dose (PF) 180 mcg/0.5 mL intramusc ular syringe INJECT 0.5 ML INTRAMUS CULARLY DIRECTED . active Not Available Not Available No t Available Spiriva Respimat 2.5 mcg/actua tion solution for inhalatio n INHALE 2 INHALATI ONS BY MOUTH DAILY active Not Available Not Available No t Available Incruse Ellipta 62.5 mcg/actua tion powder for inhalatio n Inhale 1 puff every day by inhalati on route as directed for 30 days. 12/01 completed Not Available Not Available Not Available Fluzone High-Dose 2014- (PF) 180 mcg/0.5 mL intramusc ular syringe 08/01 completed Not Available Not Available Not Available Allergy 11/08 completed Not Available Not Available Not Available Spiriva Respimat 1.25 mcg/actua tion solution for inhalatio n Inhale 2 puffs every day by inhalati on route. 2015 active Not Available Not Available Not Avai lable Viberzi 100 mg tablet TAKE 1 TABLET BY MOUTH TWICE DAILY 03/29 completed Not Available Not Available Not Available Fluzone High-Dose 7622-6540 (PF) 180 mcg/0.5 mL intramusc ular syringe ADM 0.5ML IM UTD 09/02 completed Not Available Not Available Not Available oxygen 3L 24/7 2020 active Not Available Not Available Not Avai lable Fluzone High-Dose 6370-4030 (PF) 180 mcg/0.5 mL intramusc ular syringe ADMINIST ER 0.5ML IN THE MUSCLE DIRECTED 08/01 completed Not Available Not Available Not Available Afluria Qd 2018- (36 mos up)(PF)60 mcg (15 mcg x4)/0.5 mL IM syringe active Not Available Not Available Not Available Senna Plus 8.6 mg-50 mg capsule Take 2 capsules every day by oral route. 08/09 completed Not Available Not Available Not Available Vitals Date Recorded Body height Body mass index (BMI) Body weight Body temperature Heart rate Systolic blood pressure Diastolic blood pressure Provider Name and Address Organization Details Last Updated DateTime 3 152.4 cm 24.6 kg/m2 52692.6 4 g 98.1 [degF] 77 /min 112 mm[Hg] 68 mm[Hg] JOSE Jackson - [facility] 3 16:16:36 Date Recorded Oxygen saturation Oxygen saturation in Arterial blood by Pulse oximetry Heart rate Respiratory rate Oxygen saturation Oxygen saturation in Arterial blood by Pulse oximetry Inhaled oxygen flow rate Provider Name and Address Organization Details Last Updated DateTime 3 86 % 86 % 77 /min 14 /min 89 % 89 % 1 L/min Jacinto Aguilar MD [address], [facility] [address], [place], [address], [place] [facility] 3 16:40:51 Date Recorded Body height Body mass index (BMI) Body weight Body temperature Heart rate Systolic blood pressure Diastolic blood pressure Provider Name and Address Organization Details Last Updated DateTime 3 152.4 cm 23.8 kg/m2 62932.2 7 g 98.5 [degF] 66 /min 122 mm[Hg] 62 mm[Hg] SAIMA Richardson [employer] [email or web address] 3 15:02:41 Date Recorded Body height Body mass index (BMI) Body weight Body temperature Heart rate Systolic blood pressure Diastolic blood pressure Provider Name and Address Organization Details Last Updated DateTime 3 152.4 cm 23.4 kg/m2 35067.0 8 g 97.9 [degF] 66 /min 112 mm[Hg] 70 mm[Hg] SAIMA Richardson PA [place] [email or web address] 3 14:58:05 Date Recorded Body height Body mass index (BMI) Body weight Heart rate Respiratory rate Oxygen saturation Oxygen saturation in Arterial blood by Pulse oximetry Systolic blood pressure Diastolic blood pressure Provider Name and Address Organization Details Last Updated DateTime 4 152.4 cm 24.6 kg/m2 89261.6 4 g 77 /min 14 /min 97 % 97 % 143 mm[Hg] 91 mm[Hg] Marcella Rodriguez [employer] [facility] 4 16:10:26 Date Recorded Body height Body mass index (BMI) Body weight Provider Name and Address Organization Details Last Updated DateTime 01/14/2024 152.4 cm 24.6 kg/m2 35348.64 g Marcella Rodriguez [facility] 01/14/2024 16:01:19 Social History Question Answer Notes LastModified by Organization Details LastModified Time Tobacco Smoking Status Former Smoker quit 2006 Not Available [facility] 10/03/2022 00:48:44 Do You Have An Advance Directive? Yes Daughter States Pt Has A POA, Will Bring To Office [id number] Information not available 10/03/2022 What Is Your Level Of Alcohol Consumption? None [id number] Information not available 10/03/2022 Are You Blind Or Do You Have Difficulty Seeing? No [id number] Information not available 10/03/2022 What Is Your Level Of Caffeine Consumption? Moderate [id number] Information not available 10/03/2022 How Much Tobacco Do You Chew? None [id number] Information not available 10/03/2022 In The 14 Days Before Symptom Onset, Have You Had Close Contact With A Laboratory-conf irmed COVID-19 While That Case Was Ill? No [id number] Information not available 10/03/2022 In The 14 Days Before Symptom Onset, Have You Had Close Contact With A Person Who Is Under Investigation For COVID-19 While That Person Was Ill? No [id number] Information not available 10/03/2022 Are You Deaf Or Do You Have Serious Difficulty Hearing? Yes [id number] Information not available 10/03/2022 What Type Of Diet Are You Following? REGULAR [id number] Information not available 10/03/2022 Which Illicit Or Recreational Drugs Have You Used? None [id number] Information not available 10/03/2022 Do You Or Have You Ever Used E-cigarettes Or Vape? Never Used Electronic Cigarettes [id number] Information not available 10/03/2022 What Is The Highest Grade Or Level Of School You Have Completed Or The Highest Degree You Have Received? [id number] Information not available 10/03/2022 Do You Have An Electrostatic Air Filter? 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 No MIGRATION.0301 [id number] Information not available 10/03/2022 What Is The Fluoride Status Of Your Home? Unknown MIGRATION.0301 659292 Information not available 10/03/2022 When Did You Quit Smoking? 11-15yearssincelas tcigarette MIGRATION.0301 121005 Information not available 10/03/2022 Are There Any Guns Present In Your Home? No MIGRATION.0301 [id number] Information not available 10/03/2022 Do You Have A Humidifier? No MIGRATION.0301 042514 Information not available 10/03/2022 Do You Use Insect Repellent Routinely? No MIGRATION.0301 988299 Information not available 10/03/2022 Where Do You Live? SingleLevelHouse With Basement MIGRATION.0301 534992 Information not available 10/03/2022 Do You Have A Medical Power Of Junior Electrical Engineer? Yes MIGRATION.0301 574853 Information not available 10/03/2022 Do You Have Moisture Problems In Your Home? No MIGRATION.0301 946704 Information not available 10/03/2022 What Was The Date Of Your Most Recent Tobacco Screening? 10/01/2023 [email or web address] Information not available 10/01/2023 Do You Have Any Pets? Yes 3 Dogs MIGRATION.0301 [id number] Information not available 10/03/2022 What Is Your Relationship Status? MIGRATION.0301 404244 Information not available 10/03/2022 Do You Use Your Seat Belt Or Car Seat Routinely? Yes MIGRATION.0301 132878 Information not available 10/03/2022 Do You Have Smoke And Carbon Monoxide Detectors In Your Home? Yes MIGRATION.0301 604667 Information not available 10/03/2022 At What Age Did You Start Smoking Tobacco? 22 MIGRATION.0301 986414 Information not available 10/03/2022 Are You Passively Exposed To Smoke? No MIGRATION.0301 285297 Information not available 10/03/2022 Do You Or Have You Ever Used Smokeless Tobacco? Never Used Smokeless Tobacco MIGRATION.0301 106411 Information not available 10/03/2022 Are There Any Smokers In Your House? No MIGRATION.0301 132897 Information not available 10/03/2022 How Much Tobacco Do You Smoke? No MIGRATION.0301 594283 Information not available 10/03/2022 What Types Of Sporting Activities Do You Participate In? None MIGRATION.0301 778900 Information not available 10/03/2022 Do You Feel Stressed (tense, Restless, Nervous, Or Anxious, Or Unable To Sleep At Night)? [id number] MIGRATION.0301 173734 Information not available 10/03/2022 Do You Use Any Illicit Or Recreational Drugs? No MIGRATION.0301 560094 Information not available 10/03/2022 Do You Use Sunscreen Routinely? No MIGRATION.0301 804922 Information not available 10/03/2022 Has Tobacco Cessation Counseling Been Provided? No MIGRATION.0301 919107 Information not available 10/03/2022 How Many Years Have You Smoked Tobacco? 46 MIGRATION.0301 815131 Information not available 10/03/2022 Have You Recently Traveled Abroad? No MIGRATION.0301 430240 Information not available 10/03/2022 Do You Have Any Dietary Restrictions? No MIGRATION.0301 110412 Information not available 10/03/2022 Do You Or Have You Ever Used Any Other Forms Of Tobacco Or Nicotine? No MIGRATION.0301 291620 Information not available 10/03/2022 Sex: Female Functional Status Question Answer Note LastModified by Organizat ion Details LastModified Time Do you have difficulty walking or climbing stairs? Yes MIGRATION.76097 42501 Information not available 10/03/2022 Do you have transportation difficulties? Yes MIGRATION.82156 64084 Information not available 10/03/2022 Are you able to walk? YESASSIST uses wheelchair when having to walk far MIGRATION.91291 96973 Information not available 10/03/2022 Do you have difficulty doing errands alone? Yes MIGRATION.39455 49128 Information not available 10/03/2022 Are you able to care for yourself? No MIGRATION.58219 87585 Information not available 10/03/2022 Do you have difficulty dressing or bathing? No MIGRATION.58242 00385 Information not available 10/03/2022 What is your exercise level? None MIGRATION.30258 83738 Information not available 10/03/2022 Mental Status Question Answer Note LastModified by Organizat ion Details LastModified Time Do you have difficulty concentrating, remembering or making decisions? Yes MIGRATION.[id number] 6 Information not available 10/03/2022 Family History Relationship Description Onset Age of this Age Resolved Age Notes LastModified by Organization Details LastModified Time Brother Heart disease MIGRATION.077 [id number] Not available 10/03/2022 00:52:25 Brother Myocardial dysfunction MIGRATION.006 [id number] Not available 10/03/2022 00:52:25 Mother Malignant tumor of colon MIGRATION.739 [id number] Not available 10/03/2022 00:52:25 Paternal Uncle Heart disease [email or web address] Not available 2023 16:12:27 Paternal Uncle Hypertensive disorder [email or web address] Not available 2023 16:12:19 Sister Chronic obstructive pulmonary disease MIGRATION.817 [id number] Not available 10/03/2022 00:52:25 Father Myocardial infarction MIGRATION.519 [id number] Not available 10/03/2022 00:52:25 Father Aneurysm MIGRATION.349 [id number] Not available 10/03/2022 00:52:25 Medical History Condition Response NERVE DISEASE Y BLINDNESS N RHEUMATIC FEVER N KIDNEY STONES N BLADDER PROBLEMS N OTHER # 1 Y POLIO N LUNG DISEASE/DISORDER Y COPD Y RADIATION / CHEMOTHERAPY N Other # 2 N BLOOD DISEASES N SURGERY N EAR OR HEARING PROBLEMS N MUMPS N DEPRESSION (INCLUDING POST ) Y BOWEL PROBLEMS Y STROKE/TIA N ULCERS N BENIGN PROSTATIC HYPERPLASIA N MEASLES N MYOCARDIAL INFARCTION N OBESITY N GERD/NAUSEA Y ANEURYSM N URINARY/BLADDER/KIDNEY PROBLEMS N CORONARY ARTERY DISEASE (CAD) N INPATIENT PSYCH CARE N ADDICTION CONCERNS N Impotence N ENDOMETRIOSIS N USE OF BLOOD THINNERS N SKIN PROBLEMS N GASTROINTESTINAL DISORDER N PERIPHERAL VASCULAR DISEASE N MUSCLE,JOINT OR BONE PROBLEMS N GASTROINTESTINAL BLEEDING N BLOOD CLOTS N ASTHMA N CATARACTS N ERECTILE DYSFUNCTION N VARICOSITIES N GI PROBLEMS N Low Testosterone N INFERTILITY N AIDS/HIV N LIVER DISEASE N MALE HYPOGONADISM N HYPERTENSION Y Deficiency N ANXIETY DISORDER Y BLOOD TRANSFUSION N ANEMIA/BLOOD DISORDER Y CHRONIC EAR INFECTIONS N BRONCHITIS Y TUBERCULOSIS N GLAUCOMA N DIVERTICULITIS Y SLEEP APNEA Y CHICKENPOX N ALLERGIES/HAYFEVER Y INFECTIOUS DISEASE N PROSTATE N HEART ARRHYTHMIA N INSOMNIA Y HIGH CHOLESTEROL / HYPERLIPIDEMIA Y EYE PROBLEMS Y HYPERTHYROIDISM N NEUROLOGICAL PROBLEMS N EDEMA N CHRONIC PAIN SYNDROME Y HYPOTHYROIDISM N CAROTID BLOCKAGE N CONSTIPATION N BACK / NECK PROBLEMS Y HAVE YOU BEEN HOSPITALIZED OR SEEN IN [facility] IN THE PAST YEAR ? N ATHEROSCLEROSIS N BREAST PROBLEMS N DIALYSIS N ECZEMA N FIBROMYALGIA Y OSTEOPOROSIS Y ARTHRITIS Y NO SIGNIFICANT PAST MEDICAL HISTORY N APPENDICITIS N DIABETES, TYPE N BAD TEETH N ENT N HEARTBURN / REFLUX Y AUTISM SPECTRUM DISORDER (ASD) N HEPATITIS / LIVER DISEASE N PULMONARY DISEASE N GOUT N SLEEP DISORDER N ALZHEIMER'S DISEASE N Brain Problems N DEMENTIA N HERPES N SEIZURES/EPILEPSY N HEADACHES/MIGRAINES N VASCULAR DISEASE N PACEMAKER N Blood Disorder N DIZZINESS N HEART DISEASE/HEART PROBLEMS Y KIDNEY DISEASE N MULTIPLE SCLEROSIS N CANCER: SPECIFY N CARDIAC ARRHYTHMIA N ANESTHESIA COMPLICATIONS N ATRIAL FIBRILLATION N Gall Stones N PULMONARY EMBOLISM N AUTOIMMUNE DISEASE N Gynecological History Statement/Question Response Abnormal Pap N Date of Last Pap Date of Last Mammogram 08/12/2020 Current Control Method Hysterectom y Date of Last Colonoscopy Most Recent Bone Density 12/30/2014 Obstetrics History GPAL:G 6 P 3 0 3 3 Type Value Full Term 3 Spontaneous 3 Living 3 Total 6 Immunizations Vaccine Type Date Status Note Provider Nam e and Address Organization Details Recorded Time Influenza, high-dose, quadrivalent, PF 3 completed Linda Nagy MD [address] [facility], [facility] [address], [place], [address], [facility] [employer] [facility] 08/02/2023 12:55:04 Influenza, split virus, trivalent, PF 3 completed Not Available [facility] 06/20/2023 06:06:23 influenza, unspecified formulation 7 completed Not Available [facility] 06/20/2023 06:06:23 Influenza, split virus, trivalent, PF 6 completed Not Available [facility] 06/20/2023 06:06:23 Influenza, split virus, quadrivalent, PF 3 completed Not Available [facility] 06/20/2023 06:06:23 Influenza, split virus, quadrivalent, preservative 9 completed Not Available [facility] 06/20/2023 06:06:23 Influenza, high-dose, trivalent, PF 7 completed Not Available [facility] 06/20/2023 06:06:23 Influenza, high-dose, quadrivalent, PF 3 completed Not Available [facility] 06/20/2023 06:06:23 Influenza, high-dose, quadrivalent, PF 1 completed Not Available [facility] 06/20/2023 06:06:23 Pneumococcal conjugate PCV 13 7 completed Not Available [facility] 06/20/2023 06:06:23 Past Encounters Encounter ID Performer Location Encounter Start Date Encounter Closed Date Diagnosis/Indication Diagnosis SNOMED-CT Code Diagnosis ICD10 Code [id number] [facility] [address] [place] [address] 11/24/2020 00:00:00 11/27/2020 17:13:58 [id number] [facility] [address] [place] [address], [address] [address] 12/12/2020 00:00:00 12/12/2020 17:00:46 [id number] [facility] [address] [address] 12/21/2020 00:00:00 12/21/2020 22:03:19 [id number] [facility] [address], [address] [address] 01/25/2021 00:00:00 01/25/2021 21:26:58 [id number] [facility] Pulmonolo gy [place] [address] [place] [address] 03/01/2021 00:00:00 03/01/2021 23:27:48 [id number] [facility] Eliane rosenbaum [address] [facility] , [facility] [place] [address] 03/02/2021 00:00:00 03/04/2021 22:13:16 [id number] [facility] [address], [address] [address] 05/17/2021 00:00:00 06/05/2021 16:25:11 [id number] [facility] [place] [address] [place] [address], [address] [place] [address] 05/25/2021 00:00:00 05/25/2021 13:32:32 [id number] [facility] [address], [address] [address] 07/11/2021 00:00:00 07/31/2021 21:59:05 [id number] [facility] Pulmon[facility] gy [place] [address] [place] [address] 08/09/2021 00:00:00 08/09/2021 16:46:04 [id number] [facility] Pulmon[facility] gy Snow Thomas [address] [place] [address] 08/11/2021 00:00:00 08/11/2021 16:23:27 [id number] [facility] [address] [address] 11/08/2021 00:00:00 11/19/2021 12:40:20 [id number] [facility] [address], [address] [address] 11/22/2021 00:00:00 11/22/2021 22:41:50 [id number] [facility] [address], [address] [address] 03/29/2022 00:00:00 04/09/2022 18:37:15 [id number] [facility] [address], [address] [address] 04/16/2022 00:00:00 04/16/2022 21:40:56 [id number] [facility] [address], [address] [address] 08/20/2022 00:00:00 08/20/2022 21:54:05 [id number] [facility] [address] [address] 08/20/2022 00:00:00 08/21/2022 09:15:57 [id number] Jacinto Aguilar MD [facility] [address] [address] 10/10/2022 15:31:16 10/11/2022 08:30:53 Iron deficiency anemia 73438081 D50.9 Severe chr onic obstructive pulmonary disease 483955789 J44.9 [id number] Linda Nagy MD [facility] [address] [address] 11/12/2022 14:57:47 11/12/2022 16:17:11 Essential hypertension 15088203 I10 Chronic ob structive pulmonary disease 21344019 J44.9 Gastroesop hageal reflux disease 262950957 K21.9 [id number] Jacinto Aguilar MD [facility] Pulmonolo gy [place] [address] [place] [address] 01/09/2023 15:36:34 01/09/2023 16:58:41 Iron deficiency anemia 97814399 D50.9 Severe chr onic obstructive pulmonary disease 100645962 J44.9 [id number] Linda Nagy MD [facility] [employer] [facility] Internal Med [facility] [address] [address] 03/18/2023 14:44:47 03/18/2023 16:13:55 Osteoporosis 54140271 M81.0 Renewal of prescription 169992766 Z76.0 Chronic ob structive pulmonary disease 14044008 J44.9 Essential hypertension 13795592 I10 Gastroesop hageal reflux disease 815130727 K21.9 Hyperlipidemia 98225407 E78.5 Chronic re spiratory failure 14239284 J96.10 [id number] Linda Nagy MD [employer] [facility] Internal Med [facility] [address] [address] 06/17/2023 14:46:00 06/17/2023 15:46:19 Chronic obstructive pulmonary disease 27621356 J44.9 Gastroesop hageal reflux disease 780413585 K21.9 Hyperlipidemia 62090897 E78.5 Essential hypertension 53079426 I10 Anemia 063823365 D64.9 Administra tion of influenza vaccine 87014013 Z23 [id number] Shar Joseph DPM [facility] Podiatry [address], [facility] [address] [place] [address] 10/01/2023 16:01:05 10/04/2023 07:40:57 Dystrophia unguium 19803384 L60.3 [id number] Shar Joseph DPM [facility] [facility] Podiatry [place] [address], [address] [place] [address] 01/14/2024 15:54:58 01/15/2024 11:34:08 Malignant melanoma 119586814 C43.9 Compound n evus of skin 816750413 D22.9 Dystrophia unguium 40885 009 L60.3 Health Concerns Section Related Observation LastModified by Organization Detai ls LastModified Time None Recorded Concern Status LastModified by Organization Details LastModified Time None Recorded Advance Directives Directive Y: daughter states pt has a POA, will bring to office Payers Encounter Date Sequence Insurance Name Policy Number Policy Williamson Covered Member ID Williamson Member ID Guarantor Name 01/09/2023 1 [facility] (MEDICARE REPLACEMENT/A DVANTAGE - PPO) [id number] Phoebe Meron Rafy [id number] Phoebe M Rafy 01/09/2023 2 [place] [facility] [place] Phoebe Smoaks [id number] Phoebe M Rafy 03/18/2023 1 [facility] (MEDICARE REPLACEMENT/A DVANTAGE - PPO) [id number] Phoebe M Smoaks [id number] Phoebe M Smoaks 03/18/2023 2 [place] Phoebe Rafy [id number] Phoebe M Smoaks 06/17/2023 1 [facility] (MEDICARE REPLACEMENT/A DVANTAGE - PPO) [id number] Phoebe M Rafy [id number] Phoebe M Rafy 06/17/2023 2 [place] Phoebe Rafy [id number] Phoebe M Smoaks 10/01/2023 1 [facility] (MEDICARE REPLACEMENT/A DVANTAGE - PPO) [id number] Phoebe M Smoaks [id number] Phoebe M Smoaks 10/01/2023 2 [place] Phoebe Rafy [id number] Phoebe M Rafy 01/14/2024 1 [facility] (MEDICARE REPLACEMENT/A DVANTAGE - PPO) [id number] Phoebe M Rafy [id number] Phoebe M Smoaks Notes Date Note Type Note Provider Name and Address Organization Details Recorded Time 01/09/2023 text/html Primary care/Ref erring provider: Linda Nagy MDPaticecil is here to go over her COPD management.Initial development of shortness of breath: 2013Duration of shortness of breath: 10 yearsCondition of shortness of breath: worseningTiming of shortness of breath: noneFrequency: every hourLimits activities: yesAggravating factors: walkingAlleviating factors: restModified [employer] ([employer]) Dyspnea Scale - Grade 4Grade 0 ? I only get breathless with strenuous exercise? .Grade 1 ? I get short of breath when hurrying on the level or walking up a slight hill? .Grade 2 ? I walk slower than people of the same age on the level because of breathlessness or have to stop for breath when walking at my own pace on the level? .Grade 3 ? I stop for breath after walking about 100 yards or after a few minutes on the level? .Grade 4 ? I am too breathless to leave the house? or ? I am breathless when dressing? .Treatment history:Chris 2015-1albuterol HFA as needed since dvair diskus 250/50 1 puff BID since 2012Spiriva Handihaler 1 capsule daily 2012-2015Spiriva Respimat 2.5 mcg 2 puffs daily since 2015Other symptoms:Drooling: noDysarthria: noNeck pain: noOdynophagia: noDysphagia: noWeak mastication: noFacial weakness: noNasal speech: noProtruding tongue: noProductive cough: noWheezing: noChest tightness: yesOrthopnea: noFrequent throat clearing or swallowing: noPalpitations: noHeartburn: yesEdema: noEnvironmental exposures:Nicotine smoke: 1 ppd 6214-6733 = 40 pack yearsPaint: noDye: noDust mites: yesMold: noDamp basement: noWood burning stove: noAnimal dander: dogCockroaches: noPollen: yesArsenic: noAsbestos: noBeryllium: noCadmium: noChromium: noCoal smoke: noDiesel fumes: noNickel: noSilica: noSoot: noEPWORTH SLEEPINESS SCALE (ESS)CHANCE OF DOZING SCORE0 = would never doze1 = slight chance of dozing2 = moderate chance of dozing3 = high chance of dozingSITUATION AND CHANCE OF DOZINGSitting and reading - 0Watching television - 0Sitting inactive in a public place (e.g. a theater or meeting) - 0As a passenger in a car for an hour without a break - 1Lying down to rest in the afternoon when circumstances permit - 2Sitting and talking to someone - 0Sitting quietly after lunch without alcohol - 0In a car, while stopped for a few minutes in the traffic - 0TOTAL SCORE 3Subjectively, patient has a slight chance of dozing. Jacinto Aguilar MD [address], [place], [address], [employer] 01/09/2023 16:51:45 03/18/2023 text/html Osteoporosis Pro charlene no side effects COPD stable hypertension no headache GERD stable hyperlipidemia tries to follow diet chronic respiratory failure continues on oxygen at needs a wheelchair Linda Nagy MD [address] [place], [place], [address], [employer] 03/18/2023 22:23:25 06/17/2023 text/html COPD breathing h as been stable some shortness of breath time to time. GERD flares up from time to time but right now seems to be okay anemia needs to have blood work checked needs a flu shot hypertension no headache no dizziness Linda Nagy MD [address] [place], [place], [address], [employer] 08/02/2023 12:55:09 10/01/2023 text/html Patient present to the office for routine nail care, she denies any pain to feet, wounds, or calluses. Shar Joseph DPM [address] [place], [place], [address], [employer] 10/03/2023 21:44:42 01/14/2024 text/html . Patient is an 83-year-old female who returns for routine foot care. Patient states she needs her nails cut she is able to cut them. Patient is currently on oxygen secondary to Chronic obstructive lung disease. Patient was noticed to have a new lesion the has formed over the lateral malleolus of the right ankle. Patient states she has not noticed this in the past and it was not noticed on previous examination. Patient denies any pain to the area. Patient states that she has a history of cancer in the family but denies any skin cancer. Patient states her did pass away from melanoma. I have high concerns for melanoma versus compound nevus. I discussed the options in detail with the patient due to the patient having a large varicose vein directly under the area I urged the patient to follow-up for clearance with her primary care so we can get her in for biopsy of this lesion. Shar Joseph DPM [address] [facility] [address], [place], [address], [facility] 01/14/2024 17:08:10 OBGyn Episode No OBEpisode recorded.
--- OUTSIDE RECORDS SUMMARY | 2024-08-05 02:28 | XMS_ITS | Summary of Care ---
Author Organization [facility] Address [address] [place] [id number]- Encounter 09/16/20 - 09/26/[address] [address]- Encounter Diagnosis Type 3 Odontoid Fracture(Discharge Diagnosis) - 09/26/20 Discharge Disposition: Home with Home Health Care Attending Physician: Arcelia Grey MD Admitting Physician: Arcelia Grey MD Allergies, Adverse Reactions, Alerts Substance Reaction Severity Status quinapril Rash Mild Active DULoxetine Cough Mild Active Assessment and Plan Extracted from: Title:Inpatient Clinical Summary Author:Paul Banda CM Date:09/26/[address]?? [id number] Clinical Discharge Summary PERSON INFORMATION Name RORY DELAROSA [id number] Sex Female Age 79 Years Race White Admitted 09/16/2020 15:51:00 Discharged Address: [address] [place] [address] PROVIDER INFORMATION Attending Physician: Arcelia Grey MD Consulting Physician: Maxi Brar MD DIAGNOSIS Type 3 Odontoid Fracture Current Vitals Temp Oral: 97.9 DegF Temp Tympanic: Temp Axillary: Temp Rectal: SPO2 : 98 % Respiratory Rate: 18 br/min Peripheral Pulse Rate: 97 bpm Apical Heart Rate: Blood Pressure: 128 mmHg / 76 mmHg Discharge Orders ??Order Name Order Details : Electronically Signed By: MEDICAL INFORMATION Allergy Info: DULoxetine; quinapril Medications: acetaminophen??(acetaminophen??325??mg??oral??tablet) 2??tab(s)??Oral??every??4??hours??as??needed??MD??to??specify??parameters??for?? use., Maximum??of??3,250mg??of??Acetaminophen??per??24??hours transfer??order albuterol??(albuterol??CFC??free??90??mcg/inh??inhalation??aerosol) 2??puff(s)??Inhalation??every??4??hours??as??needed??Wheezing.??Refills:??0., transfer??order amitriptyline??(amitriptyline??25??mg??oral??tablet) 1??tab(s)??Oral??every??day.??Refills:??0., transfer??order bisacodyl??(bisacodyl??10??mg??rectal??suppository) 1??Suppositories??Per??rectum??every??day??as??needed??Constipation. busPIRone??(busPIRone??10??mg??oral??tablet) 1??tab(s)??Oral??Two??Times??Per??Day.??Refills:??0., Look??Alike??Sound??Alike??(LASA) transfer??order cholecalciferol??(cholecalciferol??2000??intl??units??(50??mcg)??oral??tablet) 1??tab(s)??Oral??every??day.??Refills:??0., transfer??order docusate-senna??(Senna??Plus??50??mg-8.6??mg??oral??tablet) 2??tab(s)??Oral??Two??Times??Per??Day.??Refills:??0. ferrous??sulfate??(ferrous??sulfate??325??mg??(65??mg??elemental??iron)??oral??t ablet) 1??tab(s)??Oral??twice??a??day??with??breakfast??and??dinner.??Refills:??0., transfer??order fluticasone-vilanterol??(Breo??Ellipta??100??mcg-25??mcg??inhalation??powder) 1??puff(s)??Inhalation??every??24??hours??RT.??Refills:??0., Rinse??Mouth??After??Use transfer??order hydroCHLOROthiazide??(hydroCHLOROthiazide??12.5??mg??oral??capsule) 1??cap??Oral??every??day.??Refills:??0., transfer??order ibuprofen??(ibuprofen??200??mg??oral??tablet) 1??tab(s)??Oral??every??day??as??needed??PAIN??(Scale??4-6). metoprolol??(metoprolol??succinate??100??mg??oral??tablet,??extended??release) 1??tab(s)??Oral??every??day.??Refills:??0., DO??NOT??CRUSH transfer??order montelukast??(montelukast??10??mg??oral??tablet) 1??tab(s)??Oral??once??a??day??(at??bedtime).??Refills:??0., transfer??order pantoprazole??(pantoprazole??40??mg??oral??delayed??release??tablet) 1??tab(s)??Oral??Before??breakfast.??Refills:??0., DO??NOT??CRUSH transfer??order polyethylene??glycol??3350??(MiraLax) 17??Gram??Oral??every??day. ramelteon??(ramelteon??8??mg??oral??tablet) 1??tab(s)??Oral??once??a??day??(at??bedtime)., transfer??order traZODone??(traZODone??50??mg??oral??tablet) 1??tab(s)??Oral??once??a??day??(at??bedtime).??Refills:??0. umeclidinium??(Incruse??Ellipta??62.5??mcg/inh??inhalation??powder) 1??puff(s)??Inhalation??every??24??hours??RT.??Refills:??0., transfer??order Patient Care Team Discharge Instructions: 09/26/20 11:06 HR COORDINATOR Performed by Paul Banda CM Oil Furnace Installer Discharge Instructions Discharged to: Home with home health Professional Skilled Services: Nursing, Occupational Therapy, Physical Therapy Mode of Discharge: Stretcher Discharge Transportation: Ground ambulance Case Management DC Instructions General Discharge Instructions CM: Transferred to home with Home Health through [phone] CABLE RIGGER: Palu Banda, [phone] BILLING QUESTIONS: PLEASE FOLLOW UP WITH YOUR PRIMARY CARE PHYSICIAN WITHIN 2-3 WEEKS OF DISCHARGE FOR CONTINUITY OF CARE AND MEDICATION MANAGEMENT Physician at [facility]: Dr. Grey Hearing Care Practitioner seen at [facility]: Dr. Estevez For Questions: If you have questions regarding these instructions or if there are any changes in your discharge needs or location within 3 days of discharge, please call your [facility] Oil Furnace Installer 09/26/20 09:04 HR COORDINATOR Performed by Herb Austin MD, Guru Berry Physician Discharge Instructions Activity/Driving Restrictions Driving: No driving until cleared by PCP PowerTools: No powertools until cleared by PCP Ladders: No ladders until cleared by PCP 09/26/20 11:07 HR COORDINATOR Performed by Paul Banda CM Continuity of Care Reason for Rehabilitation Admission: Fall Special Education Teaching Assistant History: CABLE RIGGER: Paul Banda, [phone] BILLING QUESTIONS: Patient/Family Goal and Desired Outcome: to get stronger Discharge Plan: Home with Support Network: Daughter and ex Emergency Contacts GRID Emergency Name-Emergency Joanna Herrera Relationship to Patient-Emergency child Primary Phone #-Emergency [phone] Home Health Care Provider: [facility] Advance Directive Advanced Directives: Yes Advance Directive Type: Living will Advance Directive Documents Provided: No Advance Directives/ POA/Proxy Comments: Family unable to bring and [facility] did not have copy Psychosocial Affect/Behavior: Appropriate, Calm, Cooperative Sleeping Pattern: Adequate Substance Use: No Prior Recreational Activity Level: Moderately active Tobacco Use: None Allergies Allergy / Reaction quinapril Rash DULoxetine Cough 09/19/20 16:57 HR COORDINATOR Performed by Mo NELSON, LALA, Tina Dietary Discharge Instructions Dietary Information: Recommend following overall healthy diet with a focus on more protein, follow texture changes needed per TABLE WORKER PACKAGER/MD. Make half of your plate vegetables and fruit. Include a variety of protein with meals and snacks: hard-boiled egg, string cheese, nut butters, mix nuts are great portable options. If needed a daily high protein nutritional supplement may help you meet your increased protein needs: Ensure, Boost, Glucerna are example commercial supplements. Focus on healthy fats from nuts, seeds, and olive oil. Make at least half of all grains whole grain. Minimize processed foods and sugar sweetened beverages. *If you are on a mechanical altered diet, follow the texture recommendations and safety strategies outlined by your speech therapist. You may need to avoid certain foods if they are not able to be modified for your prescribed texture needs. PATIENT FOLLOW-UP INFORMATION With: Address: When: Follow up with primary care provider [address] [place] [address] 10/04/2020 2:45 PM With: Address: When: 11/03/2020 10:15 AM Kalpana Allen NP [facility] Neuro[facility] [place] Medications acetaminophen 325 mg oral tablet 650 mg = 2 tab, Oral, q4hr PRN, MD to specify parameters for use Start Date: 09/16/20 Status: Ordered albuterol CFC free 90 mcg/inh inhalation aerosol 180 mcg, 2 puff, Aerosol, INH, q4hr RT PRN, 1 EA, 0 Refill(s), Wheezing, Route to Pharmacy Electronically, [facility] #[id number], 162, cm, 09/19/20 16:46:00 HR COORDINATOR, Height/Length Dosing, 60.3, kg, 09/19/20 16:46:00 HR COORDINATOR, Weight Dosing Start Date: 09/26/20 Status: Ordered amitriptyline 25 mg oral tablet 25 mg = 1 tab, Tab, Oral, Daily, 30 tab, 0 Refill(s), Route to Pharmacy Electronically, [facility] #[id number], 162, 09/19/20 16:46:00 HR COORDINATOR, Height/Length Dosing, cm, 60.3, 09/19/20 16:46:00 HR COORDINATOR, Weight Dosing, kg Start Date: 09/26/20 Status: Ordered bisacodyl 10 mg rectal suppository 10 mg = 1 supp, Supp, Per rectum, Daily PRN, 0 Refill(s), Constipation Start Date: 09/26/20 Status: Ordered Breo Ellipta 100 mcg-25 mcg inhalation powder 1 puff, Powder, INH, Daily RT, 1 EA, 0 Refill(s), Route to Pharmacy Electronically, [facility] #[id number], 162, cm, 09/19/20 16:46:00 HR COORDINATOR, Height/Length Dosing, 60.3, kg, 09/19/20 16:46:00 HR COORDINATOR, Weight Dosing Start Date: 09/26/20 Status: Ordered busPIRone 10 mg oral tablet 10 mg = 1 tab, Tab, Oral, BID, 60 tab, 0 Refill(s), Route to Pharmacy Electronically, [facility] #[id number], 162, 09/19/20 16:46:00 HR COORDINATOR, Height/Length Dosing, cm, 60.3, 09/19/20 16:46:00 HR COORDINATOR, WeightDosing, kg Start Date: 09/26/20 Status: Ordered cholecalciferol 2000 intl units (50 mcg) oral tablet 2,000 IntlUnit = 1 tab, Tab, Oral, Daily, 30 tab, 0 Refill(s), Route to Pharmacy Electronically, [facility] #[id number], 162, 09/19/20 16:46:00 HR COORDINATOR, Height/Length Dosing, cm, 60.3, 09/19/20 16:46:00 HR COORDINATOR, Weight Dosing, kg Start Date: 09/26/20 Status: Ordered ferrous sulfate 325 mg (65 mg elemental iron) oral tablet 325 mg = 1 tab, Tab, Oral, BIDmeals, 60 tab, 0 Refill(s), Route to Pharmacy Electronically, [facility] #[id number], 162, 09/19/20 16:46:00 HR COORDINATOR, Height/Length Dosing, cm, 60.3, 09/19/20 16:46:00 HR COORDINATOR, Weight Dosing, kg Start Date: 09/26/20 Status: Ordered hydroCHLOROthiazide 12.5 mg oral capsule 12.5 mg = 1 cap, Cap, Oral, Daily, 30 cap, 0 Refill(s), Route to Pharmacy Electronically, [facility] #[id number], 162, 09/19/20 16:46:00 HR COORDINATOR, Height/Length Dosing, cm, 60.3, 09/19/20 16:46:00 HR COORDINATOR, Weight Dosing, kg Start Date: 09/26/20 Status: Ordered ibuprofen 200 mg oral tablet 200 mg = 1 tab, Tab, Oral, Daily PRN, 0 Refill(s), PAIN (Scale 4-6) Start Date: 09/26/20 Status: Ordered Incruse Ellipta 62.5 mcg/inh inhalation powder 62.5 mcg, 1 puff, Powder, INH, Daily RT, 1 EA, 0 Refill(s), Route to Pharmacy Electronically, [facility] #[id number], 162, cm, 09/19/20 16:46:00 HR COORDINATOR, Height/Length Dosing, 60.3, kg, 09/19/20 16:46:00CST, Weight Dosing Start Date: 09/26/20 Status: Ordered metoprolol succinate 100 mg oral tablet, extended release 100 mg = 1 tab, Tab-ER, Oral, Daily, 30 tab, 0 Refill(s), Route to Pharmacy Electronically, [facility] #[id number], 162, 09/19/20 16:46:00 HR COORDINATOR, Height/Length Dosing, cm, 60.3, 09/19/20 16:46:00 HR COORDINATOR, Weight Dosing, kg Start Date: 09/26/20 Status: Ordered MiraLax 17 gm = 1 EA, Powder, Oral, Daily, 0 Refill(s) Start Date: 09/26/20 Status: Ordered montelukast 10 mg oral tablet 10 mg = 1 tab, Tab, Oral, QHS, 30 tab, 0 Refill(s), Route to Pharmacy Electronically, [facility] #[id number], 162, 09/19/20 16:46:00 HR COORDINATOR, Height/Length Dosing, cm, 60.3, 09/19/20 16:46:00 HR COORDINATOR, WeightDosing, kg Start Date: 09/26/20 Status: Ordered pantoprazole 40 mg oral delayed release tablet 40 mg = 1 tab, Tab-DR, Oral, Before breakfast, 30 tab, 0 Refill(s), Route to Pharmacy Electronically, [facility] #[id number], 162, 09/19/20 16:46:00 HR COORDINATOR, Height/Length Dosing, cm, 60.3, 09/19/20 16:46:00 HR COORDINATOR, Weight Dosing, kg Start Date: 09/26/20 Status: Ordered ramelteon 8 mg oral tablet 8 mg = 1 tab, Oral, QHS Start Date: 09/16/20 Status: Ordered Senna Plus 50 mg-8.6 mg oral tablet 2 tab, Tab, Oral, BID, 60 tab, 0 Refill(s), Route to Pharmacy Electronically, [facility] #[id number], 162, 09/19/20 16:46:00 HR COORDINATOR, Height/Length Dosing, cm, 60.3, 09/19/20 16:46:00 HR COORDINATOR, Weight Dosing,kg Start Date: 09/26/20 Status: Ordered traZODone 50 mg oral tablet 50 mg = 1 tab, Tab, Oral, QHS, 30 tab, 0 Refill(s), Route to Pharmacy Electronically, [facility] #[id number], 162, 09/19/20 16:46:00 HR COORDINATOR, Height/Length Dosing, cm, 60.3, 09/19/20 16:46:00 HR COORDINATOR, WeightDosing, kg Start Date: 09/26/20 Status: Ordered Problem List Condition Effective Dates Status Health Status Inform ant ADL and IADL deficits(Confirmed) Active At risk of venous thromboembolus(Confirmed) 1 09/16/20 Active Balance impairment(Confirmed) Active Gait difficulty(Confirmed) Active General weakness(Confirmed) Active 1Problem added by Discern Expert Rule: EBN_VTERISKPROB_3 Results Laboratory List Name Date Diff Auto - BJ/BSP (DiffAuto) 09/26/20 Comp Metabolic Panel CS, Pl - BJ 09/26/20 Complete Blood Count w/Diff - BJ 09/26/20 Glucose CS - BJ 09/26/20 Comp Metabolic Panel CS, Pl - BJ 09/22/20 Complete Blood Count w/Diff - BJ 09/22/20 Glucose CS - BJ 09/22/20 Diff Auto - BJ/BSP (DiffAuto) 09/22/20 Comp Metabolic Panel CS, Pl - BJ 09/19/20 Complete Blood Count w/Diff - BJ 09/19/20 Glucose CS - BJ 09/19/20 Diff Auto - BJ/BSP (DiffAuto) 09/19/20 Vitamin D 25 Hydroxy - BJ 09/17/20 Most recent to oldest [Reference Range]: 1 2 3 Creatinine Level 0.55 mg/dL *LOW* (09/26/20 5:46 AM) 0.55 mg/dL *LOW* (09/22/20 5:51 AM) 0.53 mg/dL *LOW* (09/19/20 6:06 AM) Estimated Creatinine Clearance 39.67 mL/min (09/26/20 10:50 AM) 39.67 mL/min (09/22/20 1:51 PM) 39.67 mL/min (09/19/20 4:55 PM) Neutrophils % Auto - BJ 56.5 % 1 *NA* (09/26/20 5:46 AM) 59.8 % 2 *NA* (09/22/20 5:51 AM) 54.5 % 3 *NA* (09/19/20 6:06 AM) Monocytes Abs Auto - BJ [0.2-0.8 thousand/mm3] 0.7 thousand/mm3 *NA* (09/26/20 5:46 AM) 0.7 thousand/mm3 *NA* (09/22/20 5:51 AM) 0.5 thousand/mm3 *NA* (09/19/20 6:06 AM) Anion Gap - BJ [2-15 mmol/L] 5 mmol/L *NA* (09/26/20 5:46 AM) 6 mmol/L *NA* (09/22/20 5:51 AM) 9 mmol/L *NA* (09/19/20 6:06 AM) Vitamin D 25 Hydroxy - BJ [30-80 ng/mL] 31 ng/mL 4 *NA* (09/17/20 5:00 AM) Eosinophils % Auto - BJ 0.8 % 5 *NA* (09/26/20 5:46 AM) 1.1 % 6 *NA* (09/22/20 5:51 AM) 0.5 % 7 *NA* (09/19/20 6:06 AM) ALT - BJ [7-45 units/L] 13 units/L 8 *NA* (09/26/20 5:46 AM) 13 units/L 9 *NA* (09/22/20 5:51 AM) 13 units/L 10 *NA* (09/19/20 6:06 AM) Neutrophils Abs Auto - BJ [1.7-6.5 thousand/mm3] 3.4 thousand/mm3 *NA* (09/26/20 5:46 AM) 3.9 thousand/mm3 *NA* (09/22/20 5:51 AM) 3.0 thousand/mm3 *NA* (09/19/20 6:06 AM) Lymphocytes Abs Auto - BJ [0.8-3.3 thousand/mm3] 1.9 thousand/mm3 *NA* (09/26/20 5:46 AM) 1.8 thousand/mm3 *NA* (09/22/20 5:51 AM) 1.9 thousand/mm3 *NA* (09/19/20 6:06 AM) Hemoglobin - BJ [11.9-15.5 g/dL] 10.8 g/dL *LOW* (09/26/20 5:46 AM) 11.3 g/dL *LOW* (09/22/20 5:51 AM) 12.0 g/dL *NA* (09/19/20 6:06 AM) Basophils Abs Auto - BJ [0.0-0.1 thousand/mm3] 0.0 thousand/mm3 *NA* (09/26/20 5:46 AM) 0.0 thousand/mm3 *NA* (09/22/20 5:51 AM) 0.0 thousand/mm3 *NA* (09/19/20 6:06 AM) Chloride - BJ [97-110 mmol/L] 96 mmol/L *LOW* (09/26/20 5:46 AM) 94 mmol/L *LOW* (09/22/20 5:51 AM) 95 mmol/L *LOW* (09/19/20 6:06 AM) Calcium - BJ [8.5-10.3 mg/dL] 9.7 mg/dL *NA* (09/26/20 5:46 AM) 9.7 mg/dL *NA* (09/22/20 5:51 AM) 10.0 mg/dL *NA* (09/19/20 6:06 AM) Platelets - BJ [150-400 thousand/mm3] 260 thousand/mm3 *NA* (09/26/20 5:46 AM) 275 thousand/mm3 *NA* (09/22/20 5:51 AM) 287 thousand/mm3 *NA* (09/19/20 6:06 AM) Sodium - BJ [135-145 mmol/L] 140 mmol/L *NA* (09/26/20 5:46 AM) 140 mmol/L *NA* (09/22/20 5:51 AM) 143 mmol/L *NA* (09/19/20 6:06 AM) Monocytes % Auto - BJ 10.9 % 11 *NA* (09/26/20 5:46 AM) 10.1 % 12 *NA* (09/22/20 5:51 AM) 9.8 % 13 *NA* (09/19/20 6:06 AM) Eosinophils Abs Auto - BJ [0.0-0.5 thousand/mm3] 0.1 thousand/mm3 *NA* (09/26/20 5:46 AM) 0.1 thousand/mm3 *NA* (09/22/20 5:51 AM) 0.0 thousand/mm3 *NA* (09/19/20 6:06 AM) MCHC - BJ [32.3-35.7 g/dL] 29.8 g/dL *LOW* (09/26/20 5:46 AM) 30.9 g/dL *LOW* (09/22/20 5:51 AM) 30.1 g/dL *LOW* (09/19/20 6:06 AM) MPV - BJ [9.1-12.3 fL] 9.6 fL *NA* (09/26/20 5:46 AM) 10.0 fL *NA* (09/22/20 5:51 AM) 10.1 fL *NA* (09/19/20 6:06 AM) MCV - BJ [81.3-96.4 fL] 86.8 fL *NA* (09/26/20 5:46 AM) 86.3 fL *NA* (09/22/20 5:51 AM) 85.6 fL *NA* (09/19/20 6:06 AM) MCH - BJ [27.1-33.3 pg] 25.9 pg *LOW* (09/26/20 5:46 AM) 26.7 pg *LOW* (09/22/20 5:51 AM) 25.8 pg *LOW* (09/19/20 6:06 AM) Potassium, Plasma - BJ [3.3-4.9 mmol/L] 3.6 mmol/L *NA* (09/26/20 5:46 AM) 3.3 mmol/L *NA* (09/22/20 5:51 AM) 3.3 mmol/L *NA* (09/19/20 6:06 AM) Creatinine - BJ [0.60-1.10 mg/dL] 0.55 mg/dL *LOW* (09/26/20 5:46 AM) 0.55 mg/dL *LOW* (09/22/20 5:51 AM) 0.53 mg/dL *LOW* (09/19/20 6:06 AM) RBC - BJ [3.90-5.20 m/mm3] 4.17 m/mm3 *NA* (09/26/20 5:46 AM) 4.24 m/mm3 *NA* (09/22/20 5:51 AM) 4.66 m/mm3 *NA* (09/19/20 6:06 AM) BUN - BJ [8-25 mg/dL] 14 mg/dL *NA* (09/26/20 5:46 AM) 11 mg/dL *NA* (09/22/20 5:51 AM) 13 mg/dL *NA* (09/19/20 6:06 AM) Lymphocytes % Auto - BJ 31.3 % 14 *NA* (09/26/20 5:46 AM) 28.3 % 15 *NA* (09/22/20 5:51 AM) 34.4 % 16 *NA* (09/19/20 6:06 AM) Albumin - BJ [3.5-5.0 g/dL] 3.6 g/dL *NA* (09/26/20 5:46 AM) 3.7 g/dL *NA* (09/22/20 5:51 AM) 4.1 g/dL *NA* (09/19/20 6:06 AM) Carbon Dioxide - BJ [22-32 mmol/L] 39 mmol/L *HI* (09/26/20 5:46 AM) 40 mmol/L *HI* (09/22/20 5:51 AM) 39 mmol/L *HI* (09/19/20 6:06 AM) Hematocrit - BJ [35.6-45.5 %] 36.2 % *NA* (09/26/20 5:46 AM) 36.6 % *NA* (09/22/20 5:51 AM) 39.9 % *NA* (09/19/20 6:06 AM) Basophils % Auto - BJ 0.3 % 17 *NA* (09/26/20 5:46 AM) 0.2 % 18 *NA* (09/22/20 5:51 AM) 0.4 % 19 *NA* (09/19/20 6:06 AM) Protein, Plasma - BJ [6.5-8.5 g/dL] 6.7 g/dL *NA* (09/26/20 5:46 AM) 6.5 g/dL *NA* (09/22/20 5:51 AM) 7.3 g/dL *NA* (09/19/20 6:06 AM) WBC - BJ [3.8-9.9 thousand/mm3] 6.0 thousand/mm3 *NA* (09/26/20 5:46 AM) 6.4 thousand/mm3 *NA* (09/22/20 5:51 AM) 5.5 thousand/mm3 *NA* (09/19/20 6:06 AM) AST - BJ [10-45 units/L] 12 units/L *NA* (09/26/20 5:46 AM) 15 units/L *NA* (09/22/20 5:51 AM) 14 units/L *NA* (09/19/20 6:06 AM) Bilirubin, Total - BJ [0.1-1.2 mg/dL] 0.2 mg/dL *NA* (09/26/20 5:46 AM) 0.2 mg/dL *NA* (09/22/20 5:51 AM) 0.3 mg/dL *NA* (09/19/20 6:06 AM) Glucose - BJ [70-199 mg/dL] 128 mg/dL 20 *NA* (09/26/20 5:46 AM) 112 mg/dL 21 *NA* (09/22/20 5:51 AM) 120 mg/dL 22 *NA* (09/19/20 6:06 AM) Alkaline Phosphatase - BJ [40-130 units/L] 93 units/L *NA* (09/26/20 5:46 AM) 99 units/L *NA* (09/22/20 5:51 AM) 111 units/L *NA* (09/19/20 6:06 AM) RDW CV - BJ [11.1-14.9] Not Measured *NA* (09/26/20 5:46 AM) RDW CV - BJ [11.1-14.9 %] 24.9 % *HI* (09/22/20 5:51 AM) 25.3 % *HI* (09/19/20 6:06 AM) RDW SD - BJ [35.7-48.1] Not Measured *NA* (09/26/20 5:46 AM) RDW SD - BJ [35.7-48.1 fL] 76.6 fL *HI* (09/22/20 5:51 AM) 77.1 fL *HI* (09/19/20 6:06 AM) N RBC Abs Auto - BJ [0.00-0.01 thousand/mm3] 0.00 thousand/mm3 23 *NA* (09/26/20 5:46 AM) 0.00 thousand/mm3 24 *NA* (09/22/20 5:51 AM) 0.00 thousand/mm3 25 *NA* (09/19/20 6:06 AM) Imm Gran Abs Auto - BJ [0.0-0.1 thousand/mm3] 0.0 thousand/mm3 *NA* (09/26/20 5:46 AM) 0.0 thousand/mm3 *NA* (09/22/20 5:51 AM) 0.0 thousand/mm3 *NA* (09/19/20 6:06 AM) Imm Gran % Auto - BJ 0.2 % 26 *NA* (09/26/20 5:46 AM) 0.5 % 27 *NA* (09/22/20 5:51 AM) 0.4 % 28 *NA* (09/19/20 6:06 AM) 1Result Comment: Interpretive Data Percent cell count reference ranges are not reported, since discordance with absolute values may lead to misinterpretation of CBC data. Current Interpretive Data was last revised on 2017. 2Result Comment: Interpretive Data Percent cell count reference ranges are not reported, since discordance with absolute values may lead to misinterpretation of CBC data. Current Interpretive Data was last revised on 2017. 3Result Comment: Interpretive Data Percent cell count reference ranges are not reported, since discordance with absolute values may lead to misinterpretation of CBC data. Current Interpretive Data was last revised on 2017. 4Result Comment: [place] [address] (CLIA ID: [id number]) Lab Silk Screen Frame Assembler: Eliseo Moscoso M.D. 5Result Comment: Interpretive Data Percent cell count reference ranges are not reported, since discordance with absolute values may lead to misinterpretation of CBC data. Current Interpretive Data was last revised on 2017. 6Result Comment: Interpretive Data Percent cell count reference ranges are not reported, since discordance with absolute values may lead to misinterpretation of CBC data. Current Interpretive Data was last revised on 2017. 7Result Comment: Interpretive Data Percent cell count reference ranges are not reported, since discordance with absolute values may lead to misinterpretation of CBC data. Current Interpretive Data was last revised on 2017. 8Result Comment: [place] [address] (CLIA ID: [id number]) Lab Silk Screen Frame Assembler: Eliseo Moscoso M.D. 9Result Comment: [place] [address] (CLIA ID: [id number]) Lab Silk Screen Frame Assembler: Eliseo Moscoso M.D. 10Result Comment: [place] [address] (CLIA ID: [id number]) Lab Silk Screen Frame Assembler: Eliseo Moscoso M.D. 11Result Comment: Interpretive Data Percent cell count reference ranges are not reported, since discordance with absolute values may lead to misinterpretation of CBC data. Current Interpretive Data was last revised on 2017. 12Result Comment: Interpretive Data Percent cell count reference ranges are not reported, since discordance with absolute values may lead to misinterpretation of CBC data. Current Interpretive Data was last revised on 2017. 13Result Comment: Interpretive Data Percent cell count reference ranges are not reported, since discordance with absolute values may lead to misinterpretation of CBC data. Current Interpretive Data was last revised on 2017. 14Result Comment: Interpretive Data Percent cell count reference ranges are not reported, since discordance with absolute values may lead to misinterpretation of CBC data. Current Interpretive Data was last revised on 2017. 15Result Comment: Interpretive Data Percent cell count reference ranges are not reported, since discordance with absolute values may lead to misinterpretation of CBC data. Current Interpretive Data was last revised on 2017. 16Result Comment: Interpretive Data Percent cell count reference ranges are not reported, since discordance with absolute values may lead to misinterpretation of CBC data. Current Interpretive Data was last revised on 2017. 17Result Comment: Interpretive Data Percent cell count reference ranges are not reported, since discordance with absolute values may lead to misinterpretation of CBC data. Current Interpretive Data was last revised on 2017. [place] [address] (CLIA ID: [id number]) [facility] [employer] As[employer]er: Eliseo Moscoso M.D. 18Result Comment: Interpretive Data Percent cell count reference ranges are not reported, since discordance with absolute values may lead to misinterpretation of CBC data. Current Interpretive Data was last revised on 2017. [place] [address] (CLIA ID: [id number]) [facility] [employer] As[employer]er: Eliseo Moscoso M.D. 19Result Comment: Interpretive Data Percent cell count reference ranges are not reported, since discordance with absolute values may lead to misinterpretation of CBC data. Current Interpretive Data was last revised on 2017. [place] [address] (CLIA ID: [id number]) [facility] [employer] As[employer]er: Eliseo Moscoso M.D. 20Result Comment: Interpretive Data Fasting glucose >/= 126 mg/dl is diagnostic for diabetes. Fasting is defined as no caloric intake for at least 8 hours. Fasting glucose between 100 mg/dl to 125 mg/dl is diagnostic of prediabetes. In a patient with classic symptoms of hyperglycemia or hyperglycemic crisis, a random glucose >/= 200 mg/dl is diagnostic for diabetes. In the absence of unequivocal hyperglycemia, results should be confirmed by repeat testing. The classification and Diagnosis of Diabetes Diabetes Care 2017;40 (Suppl. 1):S11. Current interpretive data was last revised 2017. [place] [address] (CLIA ID: [id number]) [facility] [employer] Frame Assembler: Eliseo Moscoso M.D. 21Result Comment: Interpretive Data Fasting glucose >/= 126 mg/dl is diagnostic for diabetes. Fasting is defined as no caloric intake for at least 8 hours. Fasting glucose between 100 mg/dl to 125 mg/dl is diagnostic of prediabetes. In a patient with classic symptoms of hyperglycemia or hyperglycemic crisis, a random glucose >/= 200 mg/dl is diagnostic for diabetes. In the absence of unequivocal hyperglycemia, results should be confirmed by repeat testing. The classification and Diagnosis of Diabetes Diabetes Care 2017;40 (Suppl. 1):S11. Current interpretive data was last revised 2017. [place] [address] (CLIA ID: [id number]) [facility] [employer] Assembler: Eliseo Moscoso M.D. 22Result Comment: Interpretive Data Fasting glucose >/= 126 mg/dl is diagnostic for diabetes. Fasting is defined as no caloric intake for at least 8 hours. Fasting glucose between 100 mg/dl to 125 mg/dl is diagnostic of prediabetes. In a patient with classic symptoms of hyperglycemia or hyperglycemic crisis, a random glucose >/= 200 mg/dl is diagnostic for diabetes. In the absence of unequivocal hyperglycemia, results should be confirmed by repeat testing. The classification and Diagnosis of Diabetes Diabetes Care 2017;40 (Suppl. 1):S11. Current interpretive data was last revised 2017. [place] [address] (CLIA ID: [id number]) [facility] [employer] Assembler: Eliseo Moscoso M.D. 23Result Comment: [place] [address] (CLIA ID: [id number]) [facility] [employer] Assembler: Eliseo Moscoso M.D. 24Result Comment: [place] [address] (CLIA ID: [id number]) [facility] [employer] Frame Assembler: Eliseo Moscoso M.D. 25Result Comment: [place] [address] (CLIA ID: [id number]) [facility] [employer] Assembler: Eliseo Moscoso M.D. 26Result Comment: Interpretive Data Percent cell count reference ranges are not reported, since discordance with absolute values may lead to misinterpretation of CBC data. Current Interpretive Data was last revised on 2017. 27Result Comment: Interpretive Data Percent cell count reference ranges are not reported, since discordance with absolute values may lead to misinterpretation of CBC data. Current Interpretive Data was last revised on 2017. 28Result Comment: Interpretive Data Percent cell count reference ranges are not reported, since discordance with absolute values may lead to misinterpretation of CBC data. Current Interpretive Data was last revised on 2017. Vital Signs Most recent to oldest [Reference Range]: 1 2 3 Temperature Oral F [96.4-99.1 DegF] 98.2 DegF (09/26/20 3:49 PM) 97.9 DegF (09/26/20 4:50 AM) 97.8 DegF (09/25/20 7:56 PM) Peripheral Pulse Rate [60-100 bpm] 97 bpm (09/26/20 4:50 AM) 81 bpm (09/25/20 7:56 PM) 75 bpm (09/25/20 9:02 AM) Respiratory Rate [14-20 br/min] 18 br/min (09/26/20 3:49 PM) 18 br/min (09/25/20 4:10 PM) 18 br/min (09/24/20 3:33 PM) Blood Pressure [90-140/60-90 mmHg] 128/76mmHg (09/26/20 4:50 AM) 128/75mmHg (09/25/20 7:56 PM) 106/68mmHg (09/25/20 9:02 AM) Mean Arterial Pressure, Cuff 101 mmHg (09/26/20 3:49 PM) 93 mmHg (09/26/20 4:50 AM) 92 mmHg (09/25/20 7:56 PM) Extremity used to obtain blood pressure Right Arm (09/26/20 3:49 PM) Right Arm (09/25/20 4:10 PM) Right Arm (09/24/20 3:33 PM) Cuff Size. Medium (09/23/20 4:26 PM) Medium (09/23/20 3:59 AM) Vital Signs Additional Information Pt. refused to let vitals be assessed, reviewed last taken and within safe range for treatment (09/17/20 9:00 AM) Temperature Oral 36.8 DegC 1 (09/26/20 3:49 PM) 36.6 DegC 2 (09/26/20 4:50 AM) 36.6 DegC 3 (09/25/20 7:56 PM) 1Result Comment: Charted by SYSTEM secondary to charting of Temperature Oral F on a Vitals Monitor. Rule: VITALSLINK_CALCULATIONS_2 2Result Comment: Charted by SYSTEM secondary to charting of Temperature Oral F on a Vitals Monitor. Rule: VITALSLINK_CALCULATIONS_2 3Result Comment: Charted by SYSTEM secondary to charting of Temperature Oral F on a Vitals Monitor. Rule: VITALSLINK_CALCULATIONS_2
--- OUTSIDE RECORDS SUMMARY | 2024-08-05 02:28 | XMS_ITS | Data Portability ---
Author Organization [facility] Address [address] [place] [address] Care Team Providers Care Floor Service Worker Spring Name Role Phone LINDA DRUMMOND Primary Care Provider [phone] Assessment No assessment recorded. Plan of Treatment Reminders Order Date Submit Date Provider Last Modified By Organization Details Last Modified Time Details Appointments None record ed. Lab None record ed. Referral None record ed. Procedures None record ed. Surgeries None record ed. Imaging None record ed. Medication Orders None record ed. Patient TargetsNo targets recorded. Patient InstructionsNo instructions recorded. Reason for Referral None Reported. Results Created Date Observation Date Name Description Value Unit Range Abnormal Flag Note LastModifiedBy Organization Detail LastModifiedTime 06/05/20 21 06/05/2021 SURGI NIMCO PATHO LOGY surgical pathology SEE RESULT S BELOW ADDEN DUM: At the [facility] , the slide s were sent out for addit ional [place] [address] and revie wed by Altaf Marques MD, [place] whose diagn osis is as follo ws: Diagn osis: Consu lt mater ial recei bethany from [place], [place] ([facility] [id number]; 2020) . 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 Dakota triana M.D. 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 Altho ugh a nonoc lonal patte rn of react ivity is not ident ified with kappa : lambd a in-si tu hybri dizat ion, the prese nce of a minut e popul ation with an IGH gene rearr angem ent (see separ ate repor t) in conju nctio n with the high proli ferat jaylen rate are unusu al for a react jaylen condi tion. If there is lilia rn for a hemat ologi c richar barrera at this site, rebio psy with submi ssion of a fresh speci men for flow cytom etry and molec ular testi ng may be of inter ests. The findi ngs were revie wed in intra depar tment al conse nsus neel samuels . The compl ete repor t has been scann ed into [employer]. 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 -No evide nce of malig nant tumor . Johnathon Mckinney , #2, biops y: -Skin with under lying marke d acute , chron ic, and granu lomat ous infla mmati on. -No evide nce of malig nant tumor . Elect [place] by Nancy Redd MD on 2020 at 1:01 PM ----- ----- ----- ----- ----- ----- ----- ----- ----- ----- ----- ----- ----- ----- ----- ----- ----- ---- CLINI NIMCO INFOR MATIO N: not provi ded MICRO SCOPI C DESCR IPTIO N: A micro scopi c exami natio n was perfo rmed. GROSS DESCR IPTIO N: A. U. The speci men is label ed with the patie nt's name, demog raphi cs and 1 . Recei bethany in forma anny is a 0.8 x 0.5 x 0.3 cm piece of white -rosa tissu e. The speci men is bisec gilbert and is submi tted all in one casse tte. Gross ed by Nicolette goncalves B. U. The speci men is label ed with the patie nt's name, demog raphi cs and 2 . Recei bethany in forma anny is a 0.6 x 0.3 x 0.3 cm piece of white -rosa tissu e. The entir e speci men is submi tted in one casse tte. Gross ed by Nicolette goncalves Not Available [facility] (Lab) [address], [place], [address], 07/11/2022 11:06:23 Result Notes None recorded. Problems Name Problem SNOMED Code Status Onset Date Resolution Date Notes Provider Name and Address Organization Details Recorded Time SNOMED CT Concept Completed 201706/05/2021 Encntr for general adult medical exam w/o abnormal findings ;Recorde d Elsewher e: No Locat ion: Hannavanessa quintin [facility] S ource: EHR Or Scrub Tech john: N Practi ce ID: 0001 Antoine lable Time: 03:00:00 PM Murielendy Pacheco [facility] 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 53497888052 9101 Active 2017 High risk heterose xual behavior ;Recorde d Elsewher e: No [facility] Or Scrub Tech john: N Practi ce ID: 0001 Antoine lable Time: 02:30:00 PM Not Available [facility] 0 16:12:[address] Concept Completed 201706/05/2021 Well woman check w/o abnormal finding; Recorded Elsewher e: No [facility] Or Scrub Tech john: N Practi ce ID: 0001 Antoine lable Time: 03:00:00 PM Murielendy Pacheco [facility] 1 11:54:01 Menopaus e present 993426669 Active 2017 Symptoms such as flushing , sleeples sness, headache , lack of concentr ation, associat ed with natural (age-rel ated) menopaus e;Record ed Elsewher e: No Locat ion: [facility] S ource: EHR Or Scrub Tech john: N Practi ce ID: 0001 Antoine lable Time: 03:00:00 PM Not Available [facility] 0 16:12:09 Problem Notes None recorded. Procedures Surgical History Date Name Laterality Status Provider Name and Address Organization Details Recorded Time 1 Vulvar Biopsy completed To Caballero MD [address], [place], [address], [place] [facility] 06/05/2021 22:20:35 Imaging Results None recorded. Procedure Notes None recorded. Medical Equipment None Reported. Allergies No known drug allergies Medications Name Sig Start Date Stop Date Status Note LastModified by Organization Details LastModified Time venlafaxi ne ER 37.5 mg capsule,e xtended release 24 hr take 1 capsule by oral route every day with food 05/14 completed Prescrib ed Elsewher e: Yes Loca tion: Percy ribeiro [facility] odify By: lola Taylor nter DateTime : 04/15/20 18 02:30:00 PM Not Available Not Available Not Available paroxetin e 10 mg tablet take 1 tablet by oral route every day 05/14 completed Prescrib ed Elsewher e: No Locat ion: Percy ribeiro [facility] odify By: lola Taylor nter DateTime : 04/15/20 18 02:30:00 PM Not Available Not Available Not Available ipratropi um 0.5 mg-albute rol 3 mg (2.5 mg base)/3 mL nebulizat ion soln active Not Available Not Available Not Available atorvasta tin 10 mg tablet take 1 tablet by oral route every day active Prescrib ed Elsewher e: Yes Loca tion: Percy ribeiro [facility] odify By: emmy bello DateTime : 04/15/20 18 02:30:00 PM Not Available Not Available Not Available sucralfat e 100 mg/mL oral suspensio n active Not Available Not Available Not Available Paxil 20 mg tablet take 1 tablet by oral route every day 2017 active Prescrib ed Elsewher e: No Locat ion: Percy ribeiro [facility] odify By: lola Taylor nter DateTime : 05/14/20 18 03:00:00 PM Not Available Not Available Not Available metoprolo l succinate ER 100 mg tablet,ex tended release 24 hr active Not Available Not Available Not Available clonazepa m 1 mg tablet active Not Available Not Available Not Available Advair Diskus 100 mcg-50 mcg/dose powder for inhalatio n inhale 1 puff by inhalati on route 2 times every day in the morning and evening approxim ately 12 hours apart active Prescrib ed Elsewher e: Yes Loca tion: Hannavanessa quintin [facility] odify By: tmryan E ncounter DateTime : 04/15/20 18 02:30:00 PM Not Available Not Available Not Available metronida zole 500 mg tablet active Not Available Not Available No t Available ciproflox acin 500 mg tablet active Not Available Not Available No t Available tramadol 50 mg tablet active Not Available Not Available Not Available temazepam 7.5 mg capsule take 1 capsule by oral route every day at bedtime as needed active Prescrib ed Elsewher e: Yes [facility] By: emmy thornton DateTime : 04/15/20 18 02:30:00 PM Not Available Not Available Not Available nortripty line 25 mg capsule active Not Available Not Available Not Available oxycodone -acetamin ophen 5 mg-325 mg tablet active Not Available Not Available Not Available amoxicill in 875 mg tablet active Not Available Not Available Not Available omeprazol e 10 mg capsule,d elayed release take 2 capsule by oral route every day before a meal active Prescrib ed Elsewher e: Yes Loca tion: [facility] odify By: emmy thorntoner DateTime : 04/15/20 18 02:30:00 PM Not Available Not Available Not Available nifedipin e ER 60 mg tablet,ex tended release 24 hr active Not Available Not Available Not Available pantopraz ole 40 mg tablet,de layed release active Not Available Not Available Not Available Advil 100 mg tablet take 2 tablet by oral route every 4 - 6 hours as needed with food active Prescrib ed Elsewher e: Yes [facility] By: emmy bello DateTime : 04/15/20 18 02:30:00 PM Not Available Not Available Not Available buspirone 10 mg tablet active Not Available Not Available Not Available losartan 25 mg tablet take 1 tablet by oral route every day active Prescrib ed Elsewher e: Yes Loca tion: [facility] odify By: emmy thorntonnatalio DateTime : 04/15/20 18 02:30:00 PM Not Available Not Available Not Available sertralin e 25 mg tablet active Not Available Not Available Not Available budesonid e 0.5 mg/2 mL suspensio n for nebulizat ion active Not Available Not Available Not Available diclofena c sodium 75 mg tablet,de layed release active Not Available Not Available Not Available acetamino phen 300 mg-codein e 60 mg tablet active Not Available Not Available Not Available gabapenti n 100 mg capsule active Not Available Not Available Not Available albuterol sulfate HFA 90 mcg/actua tion aerosol inhaler inhale 2 puff by inhalati on route every 4 - 6 hours as needed active Not Available Not Available No t Available Vitamin D2 1,250 mcg (50,000 unit) capsule take 1 capsule by oral route every week active Prescrib ed Elsewher e: Yes Loca tion: Percy ribeiro [facility] odify By: emmy thorntonunter DateTime : 04/15/20 18 02:30:00 PM Not Available Not Available Not Available cefdinir 300 mg capsule active Not Available Not Available Not Available multivita min capsule take 1 capsule by oral route every day active Prescrib ed Elsewher e: Yes Loca tion: Percy ribeiro [facility] odify By: emmy bello DateTime : 04/15/20 18 02:30:00 PM Not Available Not Available Not Available amoxicill in 875 mg-potass ium clavulana te 125 mg tablet active Not Available Not Available Not Available monteluka st 4 mg oral granules in packet active Prescrib ed Elsewher e: Yes Loca tion: Percy ribeiro [facility] odify By: emmy bello DateTime : 04/15/20 18 02:30:00 PM Not Available Not Available Not Available Lyrica 25 mg capsule take 2 capsule by oral route 3 times every day active Prescrib ed Elsewher e: Yes Loca tion: Percy ribeiro [facility] odify By: emmy thorntonuntnatalio DateTime : 04/15/20 18 02:30:00 PM Not Available Not Available Not Available Amrix 15 mg capsule,e xtended release take 1 capsule by oral route every day 05/14 completed Prescrib ed Elsewher e: Yes Loca tion: Percy ribeiro [facility] odify By: emmy thorntonunter DateTime : 04/15/20 18 02:30:00 PM Not Available Not Available Not Available lidocaine 5 % topical ointment APPLY TO AFFECTED AREA(S) BY TOPICAL ROUTE 1-4 TIMES DAILY NEEDED active Not Available Not Available No t Available Lortab Elixir 10 mg-300 mg/15 mL oral solution take 11.25 millilit er by oral route every 4 - 6 hours as needed 05/14 completed Prescrib ed Elsewher e: Yes Loca tion: Percy ribeiro [facility] odify By: emmy bello DateTime : 04/15/20 18 02:30:00 PM Not Available Not Available Not Available Spiriva Respimat 2.5 mcg/actua tion solution for inhalatio n active Not Available Not Available Not Available ProAir RespiClic k 90 mcg/actua tion breath activated inhale 2 puff by inhalati on route every 4 - 6 hours as needed active Prescrib ed Elsewher e: Yes Loca tion: Percy ribeiro [facility] odify By: emmy bello DateTime : 04/15/20 18 02:30:00 PM Not Available Not Available Not Available Durlaza 162.5 mg capsule,e xtended release take 1 capsule by oral route every day at the same time each day 05/14 completed Prescrib ed Elsewher e: Yes Loca tion: [facility] odify By: emmy bello DateTime : 04/15/20 18 02:30:00 PM Not Available Not Available Not Available Spiriva Respimat 1.25 mcg/actua tion solution for inhalatio n inhale 2 puff by inhalati on route every day active Prescrib ed Elsewher e: Yes Loca tion: Percy quintin [facility] odify By: emmy bello DateTime : 04/15/20 18 02:30:00 PM Not Available Not Available Not Available Sinus Relief Max Str Day-Night 5-325-200 mg(d)/12. 5-5-325mg (n) tablets active Prescrib ed Elsewher e: Yes Loca tion: Hannavanessa quintin [facility] odify By: emmy bello DateTime : 04/15/20 18 02:30:00 PM Not Available Not Available Not Available Vitals Date Recorded Body height Body mass index (BMI) Body weight Systolic blood pressure Diastolic blood pressure Provider Name and Address Organization Details Last Updated DateTime 06/05/2021 152.4 cm 23.6 kg/m2 69245.68 g 162 mm[Hg] 81 mm[Hg] Muriel Pacheco [facility] 11:50:46 Social History None recorded. Functional Status None recorded. Mental Status None recorded. Family History Nothing Reported. Medical History Condition Response Acid Reflux (GERD) Y Hypertension Y Gynecological History Statement/Question Response Current Control Method Tubal Ligat ion Obstetrics History GPAL:G 4 P 3 0 1 3 Type Value Full Term 3 Spontaneous 1 Living 3 Total 4 Past Encounters Encounter ID Performer Location Encounter Start Date Encounter Closed Date Diagnosis/Indication Diagnosis SNOMED-CT Code Diagnosis ICD10 Code 05580 To Caballero MD [place] [address] [address] 06/05/2021 11:22:32 06/06/2021 11:02:00 Lesion of vulva 642658802 N90.89 Health Concerns Section Related Observation LastModified by Organization Detai ls LastModified Time None Recorded Concern Status LastModified by Organization Details LastModified Time None Recorded Advance Directives Directive None Recorded Payers Encounter Date Sequence Insurance Name Policy Number Policy Williamson Covered Member ID Williamson Member ID Guarantor Name 06/05/2021 2 [place] [employer] Phoebe Bynumum [id number] Phoebe Rathdrum 06/05/2021 1 [facility] [id number] Phoebe Chance Rathdrum [id number] Phoebe Rafy Notes Date Note Type Note Provider Name a ne Address Organization Details Recorded Time 06/05/2021 text/html This patient is a 80-year-old female. She presents with severe vulvar pain. The vulva was examined. Lesions were observed. Use or angry lesions that were non infected her appeared very inflamed. These areas were biopsied. To Caballero MD [address], [place], [address], [facility] 06/05/2021 22:21:35 OBGyn Episode Ob Episode Information Episode Created Date Number of Fetuses Patient Bloodtype Patient rh Status Prepregnancy Weight lbs Domestic Partner Domestic Partner Phone Father Name Mathematics Professor Status 06/05/20 21 1 CLOSED Fetus Data First Name Last Name Admitted to NICU Weight (g) Sex Living Outcome Pediatric Complications Fetus ID Race Codes Race Delivery Type 2948.34 8 M Full Term [id number] Vaginal Delivery Gayatri Calculation GAYATRI Calculation Method Initial Gayatri Date Initial Exam Date Initial Exam Provider Initial Ultrasound Date Last Menstrual Period Date Ultra Sound Weeks Gestation Conception by IVF Embryo Age at Transfer Date of Transfer 0 Eighteen To Twenty Week Gayatri Update Ultra Sound Date Fundal Height At Umbil Quickening Date Ultra Sound Latest Weeks Gestation Final Gayatri Confirmed By Final Gayatri Confirmed Date Final Gayatri Date Ultra Sound Latest Days Gestation 0 0 Menstrual History Last Menstrual Date Menses Monthly On Bcp Conception Prior Menses Frequency Hcg Plus Date Menarche Onset Age Delivery Information Delivery Date Delivery Type Labor Anesthesia Weeks Gestation Incision Type Labor Labor Length Hrs Delivered By Post Complications Tubal Sterilization Discharge Date Comments 3 Altaf Discharge Information Feeding Method Contraceptive Method Maternal HG B and HCT Levels Ob Episode Information Episode Created Date Number of Fetuses Patient Bloodtype Patient rh Status Prepregnancy Weight lbs Domestic Partner Domestic Partner Phone Father Name Mathematics Professor Status 06/05/20 21 1 CLOSED Fetus Data First Name Last Name Admitted to NICU Weight (g) Sex Living Outcome Pediatric Complications Fetus ID Race Codes Race Delivery Type 3316.66 [id number] F Full Term [id number] Vaginal Delivery Gayatri Calculation GAYATRI Calculation Method Initial Gayatri Date Initial Exam Date Initial Exam Provider Initial Ultrasound Date Last Menstrual Period Date Ultra Sound Weeks Gestation Conception by IVF Embryo Age at Transfer Date of Transfer 0 Eighteen To Twenty Week Gayatri Update Ultra Sound Date Fundal Height At Umbil Quickening Date Ultra Sound Latest Weeks Gestation Final Gayatri Confirmed By Final Gayatri Confirmed Date Final Gayatri Date Ultra Sound Latest Days Gestation 0 0 Menstrual History Last Menstrual Date Menses Monthly On Bcp Conception Prior Menses Frequency Hcg Plus Date Menarche Onset Age Delivery Information Delivery Date Delivery Type Labor Anesthesia Weeks Gestation Incision Type Labor Labor Length Hrs Delivered By Post Complications Tubal Sterilization Discharge Date Comments 3 Lindsay matt Discharge Information Feeding Method Contraceptive Method Maternal HG B and HCT Levels Ob Episode Information Episode Created Date Number of Fetuses Patient Bloodtype Patient rh Status Prepregnancy Weight lbs Domestic Partner Domestic Partner Phone Father Name Mathematics Professor Status 06/05/20 21 1 CLOSED Fetus Data First Name Last Name Admitted to NICU Weight (g) Sex Living Outcome Pediatric Complications Fetus ID Race Codes Race Delivery Type 3005.04 7 M Full Term [id number] Vaginal Delivery Gayatri Calculation GAYATRI Calculation Method Initial Gayatri Date Initial Exam Date Initial Exam Provider Initial Ultrasound Date Last Menstrual Period Date Ultra Sound Weeks Gestation Conception by IVF Embryo Age at Transfer Date of Transfer 0 Eighteen To Twenty Week Gayatri Update Ultra Sound Date Fundal Height At Umbil Quickening Date Ultra Sound Latest Weeks Gestation Final Gayatri Confirmed By Final Gayatri Confirmed Date Final Gayatri Date Ultra Sound Latest Days Gestation 0 0 Menstrual History Last Menstrual Date Menses Monthly On Bcp Conception Prior Menses Frequency Hcg Plus Date Menarche Onset Age Delivery Information Delivery Date Delivery Type Labor Anesthesia Weeks Gestation Incision Type Labor Labor Length Hrs Delivered By Post Complications Tubal Sterilization Discharge Date Comments 2 Dustin mcnair her Discharge Information Feeding Method Contraceptive Method Maternal HG B and HCT Levels
--- OUTSIDE RECORDS SUMMARY | 2024-08-05 02:28 | XMS_ITS | CONTINUITY OF CARE DOCUMENT ---
Author Name amanda patel Address Unknown Organization [facility] Address [address] [place] [address] Phone [phone] Care Team Providers Care Document Imaging Specialist Name Role Phone Stalin MCINTYRE, Fredy Unavailable MONO SALAZAR MD Unavailable [phone] MONO SALAZAR MD Unavailable [phone] PROBLEMS Condition Status Date Provider Notes Pulmonary hypertension, mode rate to severe active Fredy Gant MD CHF diastolic dysfunction, E F 70%. active Fredy Gant MD Hyperlipidemia active Fredy Gant MD Anxiety active Fredy Gant MD Depression active Fredy Gant MD Hypertension active Fredy Gant MD COPD on home O2 active Fredy Gant MD Sleep apnea completed - Fredy Gant MD VANDANA--on cpap active Fredy Gant MD ENCOUNTERS Date Type Provider Location Encounter Diagnosis - In-person encounter Office Visit Fredy Gant MD [facility] Sleep apneaOSA--on cpap - In-person encounter Office Visit Fredy Gant MD [facility] VITAL SIGNS Date Observation Value Provider Body Mass Index (Ratio) 24.02 kg/m2 Rafael Gant MD blood pressure, diastolic 88 mm[Hg] Elsa King blood pressure, cuff size regular Elsa King blood pressure, systolic 169 mm[Hg] Beto King oxygen saturation, oximetry 99 % Justine King respiratory rate E&M 16 /min Nancy King pulse rate 64 /min Justine polanco weight E&M 123 [lb_av] Justine polanco height E&M 60 [in_i] Justine polanco Body Mass Index (Ratio) 30.66 kg/m2 Rafael Gant MD Inhaled O2 2 L/min [facility] blood pressure, resting Yes [facility] blood pressure, diastolic 58 mm[Hg] To [facility] blood pressure, systolic 106 mm[Hg] Ton [facility] respiratory rate E&M 16 /min [facility] pulse rate 66 /min [facility] oxygen saturation, oximetry 94 % [facility] temperature site temporal [facility] temperature E&M 97.6 [degF] [facility] height E&M 60 [in_i] [facility] weight E&M 157 [lb_av] [facility] ALLERGIES Allergy Name Onset Date Reaction Criticality Status HYDRALAZINE High Criticality active NEFE DIPINE High Criticality active CLNIDINE High Criticality active LORSATAN POTASSIUM High Criticality active AMITRIPOLINE High Criticality active TRASADONE PLACQUENIL High Criticalit y active HISTORY OF MEDICATION USE Medication Status Instructions Dates Provider Indications Com ments chlorthalidone 50 mg tablet active TAKE 1 TABLET BY MOUTH DAILY. FOLLOW UP 08/31 Jeniemerald Barron chlorthalidone 50 mg tablet completed Take 1 tablet by mouth once a day due for follow up 11/15 - 08/31 Jeni Ruple chlorthalidone 50 mg tablet completed Take 1 tablet by mouth once a day one tab daily 08/28 - 11/15 Amy Filemon chlorthalidone 50 mg tablet completed one tab daily - 08/28 Greg Lizama chlorthalidone 50 mg tablet completed - Graham Lyman RN hydralazine 25 mg tablet completed one tab twice daily 09/19 - 09/25 Iftikhar Ahmedzai hydralazine 25 mg tablet completed one tab twice daily - 09/19 Graham Lyman RN lisinopril-hydrochl orothiazide 10-12.5 mg tablet completed Take 1 tablet by mouth once a day - 09/19 Graham Lyman RN hydralazine 50 mg tablet completed Take 1 tablet by mouth twice a day - 08/06 Fredy Gant MD hydrocodone-acetami nophen 7.5-325 mg tablet active Iftikhar Mcwilliams pantoprazole 40 mg tablet,delayed release (DR/EC) active Iftikhar Congzai metoprolol succinate 100 mg tablet extended release 24 hr active Iftikhar Congzai omeprazole 40 mg capsule,delayed release(DR/EC) completed Take 1 capsule once a day 09/24 - Iftikhar Scarlettfrederickzai #90, 90 days supply, Prescribed by MONO SALZAAR, Filled 01/06/2020 metoprolol succinate 100 mg tablet extended release 24 hr completed tablet by mouth 12/09 - Iftikhar Garzai #90, 90 days supply, Prescribed by WINNIE SOSA, Filled 01/29/2020 diclofenac sodium 75 mg tablet,delayed release (DR/EC) completed tablet by mouth 01/28 - Iftikhar Garzai #60, 30 days supply, Prescribed by MONO SALAZAR, Filled 01/29/2020 temazepam 15 mg capsule completed capsule by mouth 02/02 - 0 Iftikhar Garzai #30, 30 days supply, Prescribed by ESTEVAN MARROQUIN, Filled 02/03/2020 montelukast 10 mg tablet completed tablet by mouth 02/10 - Iftikhar Scarlettmedzai #30, 30 days supply, Prescribed by EMILY MENARD, Filled 02/11/2020 hydrochlorothiazide 12.5 mg capsule completed capsule by mouth 01/07 - Iftikhar Ahmedzai #30, 30 days supply, Prescribed by MONO SALAZAR, Filled 02/12/2020 pantoprazole 40 mg tablet,delayed release (DR/EC) completed tablet by mouth 02/12 - Iftikhar Ahmedzai #20, 20 days supply, Prescribed by BEBA PRICE, Filled 02/13/2020 ondansetron HCl 8 mg tablet completed tablet by mouth 02/12 - Iftikhar Ahmedzai #10, 4 days supply, Prescribed by BEBA PRICE, Filled 02/13/2020 dicyclomine 20 mg tablet completed tablet by mouth 02/12 - Iftikhar Scarlettmedzai #15, 5 days supply, Prescribed by BEBA PRICE, Filled 02/13/2020 SOCIAL HISTORY Date Observation Value Provider social history E&M S moking History: Yasmin white has never smoked. Iftikhar Mcwilliams smoking status Never smoker Justine gaytan social history reviewed E&M revi ewed - no changes required Fredy Gant MD social history E&M S moking History: Yasmin white has never smoked. Maxine Kohler social history reviewed E&M revi ewed - no changes required Maxine Kohler smoking status Never smoker Neto Porras INSURANCE PROVIDERS Payer name Policy type / Coverage type Purmela red democrat ID AARP MEDICARE ADVANTAGE ([facility] COMPLETE PPO) Other [id number] HEALTHCARE AND FAMILY SERVICES Medicaid 1 [id number] ADVANCE DIRECTIVES Name Date LIVING WILL ON FILE TREATMENT PLAN Date Name Performer [id number],S, Iftikhar Ortega i [id number],S, Iftikhar Garza i [id number],S, Iftikhar Ahmedza i [id number],S, Iftikhar Ahmedza i [id number],S, Iftikhar Ahmedza i [id number],S, Iftikhar Ahmedza i [id number],S, Iftikhar Ahmedza i [id number],S, Iftikhar Ahmedza i [id number],S, Iftikhar Ahmedza i [id number],S, Iftikhar Ahmedza i [id number],S, Iftikhar Ahmedza i [id number],S, Iftikhar Ahmedza i [id number],S, Iftikhar Ahmedza i [id number],S, Iftikhar Ahmedza i [id number],S, Iftikhar Ahmedza i [id number],S, Iftikhar Ahmedza i [id number],S, Iftikhar Ahmedza i [id number],W, Iftikhar Ahmedza i Telehealth Iftikhar Ahmedzai Telehealth Iftikhar Ahmedzai Telehealth Iftikhar Ahmedzai Telehealth Iftikhar Ahmedzai Telehealth Iftikhar Ahmedzai Telehealth Iftikhar Ahmedzai Telehealth Iftikhar Ahmedzai Telehealth Iftikhar Ahmedzai Telehealth Iftikhar Ahmedzai Telehealth Iftikhar Ahmedzai Telehealth Iftikhar Ahmedzai Telehealth Iftikhar Ahmedzai Telehealth Iftikhar Ahmedzai Cardiology Iftikhar Ahmedzai Cardiology Iftikhar Ahmedzai Cardiology Iftikhar Ahmedzai Cardiology Iftikhar medzai Cardiology Iftikhar Garzai Cardiology - Fredy Gant MD Cardiology - Fredy Gant MD Cardiology - Fredy Gant MD Cardiology - Fredy Gant MD Cardiology - Fredy Gant MD Cardiology - Fredy Gant MD Date Name Renal Artery Duplex RPM (remote patient monitoring) Complete Echo HISTORY OF PROCEDURES Procedure Date Procedure Name Provider Procedure Notes S tatus EKG Fredy Gant MD completed EKG Fredy Gant MD completed
--- OUTSIDE RECORDS SUMMARY | 2024-08-05 02:29 | XMS_ITS | Encounter Summary ---
Author Organization [facility] Address [address] [place] [address] Care Team Providers Care Major Assembler Name Role Phone Unavailable Primary Care Provider Unavailabl e Reason for Visit * Reason Onset Date Comments Referral 09/22/2021 Encounter Details Date Type Department Care Team (Late st Contact Info) Description 09/22/2021 Telephone [facility] [address] [place] [address] Shelli Nguyen [facility]PC Referral Social History Tobacco Use Types Packs/Day Years Used Date Smoking Tobacco: Former Cigarettes Smokeless Tobacco: Former Sex and Gender Information Value Date Recorded Sex Assigned at Not on file Gender Identity Not on file Sexual Orientation Not on file documented as of this encounter Functional Status Functional Status Response Date of Assess ment Is person deaf or have serious hearing difficult y? No 11/05/2020 Is person blind or have serious difficulty seein g? No 11/05/2020 Does person have serious dif ficulty walking/climbing stairs? No 11/05/2020 Does person have difficulty dressing/bathing? No 11/05/2020 Does person have difficulty doing errands alone? No 11/05/2020 Cognitive Status Response Date of Assessm ent Does person have difficulty concentrating/remembering/making decisions? No 11/05/2020 documented as of this encounter Miscellaneous Notes * Telephone Encounter - Shelli Nguyen [facility] - 09/22/2021 1:52 PM CST Received referral from [facility] for patient closed L2 vertebral fracture. Attempted to schedule patient with Dr. Sinan Nguyen on Saturday2021 patient to have daughter call and schedulefor her. Will need to hand carry CT disc to evaluation appointment. MAKER documented in this encounter Plan of Treatment Not on file documented as of this encounter Visit Diagnoses Not on filedocumented in this encounter
--- OUTSIDE RECORDS SUMMARY | 2024-08-05 02:29 | XMS_ITS | Patient Health Summary ---
Author Organization [facility] Address [address] [place] [address] Care Team Providers Care Network Operations Analyst Name Role Phone Unavailable Primary Care Provider Unavailabl e Note from [facility],non-owned Affiliates and Associated Physician Practices is amultiple site organization consisting of ambulatory clinics and hospital sitesin [place], [place], [place] and [place]. This disclosure is being madepursuant to the Care Everywhere program and may not contain all information available regarding this patient. Last updated 18.[facility] Allergies No known active allergies Medications * Be aware that medications may not be up to date on this document. Alwaysverify current medications with the patient. * albuterol HFA (PROVENTIL;VENTOLIN;PROAIR) 108 (90 Base) MCG/ACT inhaler Inhale 2 puffs by mouth every 6 hours as needed * pantoprazole EC (PROTONIX) 40 MG tablet Take 40 mg by mouth once daily * montelukast (SINGULAIR) 10 MG tablet Take 10 mg by mouth at bedtime * busPIRone (BUSPAR) 10 MG tablet Take 10 mg by mouth 2 times daily * tiotropium (SPIRIVA RESPIMAT) 2.5 MCG/ACT inhaler Inhale 2 puffs by mouth once daily * oxyCODONE-acetaminophen (PERCOCET) 10-325 MG tablet Take 1 tablet by mouth every 12 hours * clonazePAM (KLONOPIN) 1 MG tablet Take 1 mg by mouth at bedtime * ferrous sulfate 325 (65 FE) MG tablet Take 325 mg by mouth 2 times daily with morning and evening meal * Cholecalciferol (VITAMIN D3) 10 MCG (400 UNIT) tablet Take 2,000 Units by mouth once daily * senna-docusate (SENNA PLUS) 8.6-50 MG tablet Take 2 tablets by mouth 2 times daily * metoprolol succinate XL 24hr (TOPROL XL) 100 MG tablet Take 1 tablet by mouth * fluticasone-vilanterol (BREO ELLIPTA) 100-25 MCG/INH inhaler Inhale 1 puff by mouth once daily Administer at the same time each day. Rinse mouth after using * amitriptyline (ELAVIL) 25 MG tablet Take 25 mg by mouth once daily * hydroCHLOROthiazide (MICROZIDE) 12.5 MG capsule Take 12.5 mg by mouth once daily * lisinopril (PRINIVIL; ZESTRIL) 10 MG tablet(Started 11/16/2020) Take 1 (one) tablet by mouth once daily * metoprolol tartrate (LOPRESSOR) 25 MG tablet(Started 11/16/2020) Take 1 (one) tablet by mouth 2 times daily * polyethylene glycol 3350 (MIRALAX) 17 g packet(Started 11/16/2020) Take 17 (seventeen) g by mouth once daily Active Problems Problem Noted Date Diagnosed Date Chronic respiratory failure 11/04/2020 Social History Tobacco Use Types Packs/Day Years Used Date Smoking Tobacco: Former Cigarettes Smokeless Tobacco: Former Tobacco Cessation:Counseling Given: Yes Sex and Gender Information Value Date Recorded Sex Assigned at Not on file Gender Identity Not on file Sexual Orientation Not on file Last Filed Vital Signs Vital Sign Reading Time Taken Comments Blood Pressure 129/68 11/16/2020 8:09 AM CDT Pulse 89 11/16/2020 8:47 AM CDT Temperature 36.7 ??C (98 ??F) 11/16/2020 8:09 AM CDT Respiratory Rate 20 11/16/2020 8:47 AM CDT Oxygen Saturation 100% 11/16/2020 8:47 AM CDT Inhaled Oxygen Concentration 30% 11/08/2020 9 :15 AM CDT Weight 56 kg (123 lb 6.4 oz) 11/15/2020 5:04 AM CDT Height 152.4 cm (5') 11/05/2020 6:15 AM CDT Body Mass Index 24.1 11/05/2020 6:15 AM CDT Procedures * CARDIAC RHYTHM STRIP ORDER(Performed 11/17/2020) * LAB RESULTS ORDER(Performed 11/17/2020) * CARDIAC EKG ORDER(Performed 11/17/2020) * GLUCOSE - POINT OF CARE(Performed 11/16/2020) * GLUCOSE - POINT OF CARE(Performed 11/15/2020) * GLUCOSE - POINT OF CARE(Performed 11/15/2020) * GLUCOSE - POINT OF CARE(Performed 11/15/2020) * GLUCOSE - POINT OF CARE(Performed 11/15/2020) * GLUCOSE - POINT OF CARE(Performed 11/14/2020) * GLUCOSE - POINT OF CARE(Performed 11/14/2020) * GLUCOSE - POINT OF CARE(Performed 11/14/2020) * GLUCOSE - POINT OF CARE(Performed 11/14/2020) * MAGNESIUM BLOOD(Performed 11/14/2020) * COMPREHENSIVE METABOLIC PANEL(Performed 11/14/2020) * CBC W AUTO DIFFERENTIAL(Performed 11/14/2020) * GLUCOSE - POINT OF CARE(Performed 11/13/2020) * GLUCOSE - POINT OF CARE(Performed 11/13/2020) * GLUCOSE - POINT OF CARE(Performed 11/13/2020) * GLUCOSE - POINT OF CARE(Performed 11/13/2020) * GLUCOSE - POINT OF CARE(Performed 11/12/2020) * GLUCOSE - POINT OF CARE(Performed 11/12/2020) * GLUCOSE - POINT OF CARE(Performed 11/12/2020) * GLUCOSE - POINT OF CARE(Performed 11/12/2020) * SLIDE SCAN HEMATOLOGY(Performed 11/12/2020) * MAGNESIUM BLOOD(Performed 11/12/2020) * COMPREHENSIVE METABOLIC PANEL(Performed 11/12/2020) * CBC W AUTO DIFFERENTIAL(Performed 11/12/2020) * GLUCOSE - POINT OF CARE(Performed 11/11/2020) * GLUCOSE - POINT OF CARE(Performed 11/11/2020) * GLUCOSE - POINT OF CARE(Performed 11/11/2020) * MAGNESIUM BLOOD(Performed 11/11/2020) * COMPREHENSIVE METABOLIC PANEL(Performed 11/11/2020) * CBC W AUTO DIFFERENTIAL(Performed 11/11/2020) * GLUCOSE - POINT OF CARE(Performed 11/11/2020) * GLUCOSE - POINT OF CARE(Performed 11/10/2020) * GLUCOSE - POINT OF CARE(Performed 11/10/2020) * GLUCOSE - POINT OF CARE(Performed 11/10/2020) * MAGNESIUM BLOOD(Performed 11/10/2020) * COMPREHENSIVE METABOLIC PANEL(Performed 11/10/2020) * CBC W AUTO DIFFERENTIAL(Performed 11/10/2020) * GLUCOSE - POINT OF CARE(Performed 11/10/2020) * GLUCOSE - POINT OF CARE(Performed 11/09/2020) * GLUCOSE - POINT OF CARE(Performed 11/09/2020) * MAGNESIUM BLOOD(Performed 11/09/2020) * COMPREHENSIVE METABOLIC PANEL(Performed 11/09/2020) * CBC W AUTO DIFFERENTIAL(Performed 11/09/2020) * GLUCOSE - POINT OF CARE(Performed 11/09/2020) * GLUCOSE - POINT OF CARE(Performed 11/08/2020) * GLUCOSE - POINT OF CARE(Performed 11/08/2020) * BLOOD GASES ARTERIAL(Performed 11/08/2020) * GLUCOSE - POINT OF CARE(Performed 11/08/2020) * BLOOD GASES ARTERIAL(Performed 11/08/2020) * GLUCOSE - POINT OF CARE(Performed 11/08/2020) * CBC W AUTO DIFFERENTIAL(Performed 11/08/2020) * GLUCOSE - POINT OF CARE(Performed 11/07/2020) * GLUCOSE - POINT OF CARE(Performed 11/07/2020) * GLUCOSE - POINT OF CARE(Performed 11/07/2020) * BLOOD GASES ARTERIAL(Performed 11/07/2020) * MAGNESIUM BLOOD(Performed 11/07/2020) * RENAL FUNCTION PANEL(Performed 11/07/2020) * CBC W AUTO DIFFERENTIAL(Performed 11/07/2020) * GLUCOSE - POINT OF CARE(Performed 11/07/2020) * GLUCOSE - POINT OF CARE(Performed 11/06/2020) * GLUCOSE - POINT OF CARE(Performed 11/06/2020) * GLUCOSE - POINT OF CARE(Performed 11/06/2020) * BLOOD GASES ARTERIAL(Performed 11/06/2020) * COMPREHENSIVE METABOLIC PANEL(Performed 11/06/2020) * CBC W AUTO DIFFERENTIAL(Performed 11/06/2020) * PHOSPHORUS BLOOD(Performed 11/06/2020) * MAGNESIUM BLOOD(Performed 11/06/2020) * TRIGLYCERIDES BLOOD(Performed 11/06/2020) * XR ABDOMEN KUB(Performed 11/06/2020) Performed for Chronic respiratory failure, unspecified whether with hypoxia or hypercapnia (HCC) * GLUCOSE - POINT OF CARE(Performed 11/06/2020) * GLUCOSE - POINT OF CARE(Performed 11/05/2020) * GLUCOSE - POINT OF CARE(Performed 11/05/2020) * CULTURE MRSA(Performed 11/05/2020) * XR ABDOMEN KUB(Performed 11/05/2020) Performed for Chronic respiratory failure with hypoxia and hypercapnia (HCC) * SARS-COV-2 (COVID-19) IN HOUSE(Performed 11/05/2020) * EKG 12-LEAD(Performed 11/05/2020) Performed for Chronic respiratory failure with hypoxia and hypercapnia (HCC) * TROPONIN I(Performed 11/05/2020) * HEMOGLOBIN A1C(Performed 11/05/2020) * MAGNESIUM BLOOD(Performed 11/05/2020) * BASIC METABOLIC PANEL (CALCIUM TOTAL)(Performed 11/05/2020) * CBC W AUTO DIFFERENTIAL(Performed 11/05/2020) * GLUCOSE - POINT OF CARE(Performed 11/05/2020) * CULTURE SPUTUM+GRAM STAIN(Performed 11/04/2020) * CULTURE BLOOD(Performed 11/04/2020) * CULTURE BLOOD(Performed 11/04/2020) * URINE MICROSCOPIC ONLY(Performed 11/04/2020) * URINALYSIS REFLEX TO MICROSCOPIC NO CULTURE(Performed 11/04/2020) * STREP PNEUMONIAE ANTIGEN URINE(Performed 11/04/2020) * LEGIONELLA ANTIGEN URINE(Performed 11/04/2020) * PROCALCITONIN LEVEL(Performed 11/04/2020) * MAGNESIUM BLOOD(Performed 11/04/2020) * LACTIC ACID BLOOD(Performed 11/04/2020) * COMPREHENSIVE METABOLIC PANEL(Performed 11/04/2020) * B-TYPE NATRIURETIC PEPTIDE(Performed 11/04/2020) * CBC W AUTO DIFFERENTIAL(Performed 11/04/2020) * BLOOD GASES ARTERIAL(Performed 11/04/2020) * XR CHEST 1VW PORTABLE(Performed 11/04/2020) Performed for Chronic respiratory failure with hypoxia and hypercapnia (HCC) Results * CARDIAC RHYTHM STRIP ORDER (11/17/2020 10:34 PM CDT) Narrative 11/17/2020 10:34 PM CDT Ordered by an unspecified provider. Scanned Document CARDIAC SERVICES ORD ERABLES * LAB RESULTS ORDER (11/17/2020 10:33 PM CDT) Narrative 11/17/2020 10:33 PM CDT Ordered by an unspecified provider. Scanned Document LAB - THERAPEUTIC DR UG MONITORING ORDERABLES * CARDIAC EKG ORDER (11/17/2020 10:33 PM CDT) Narrative 11/17/2020 10:33 PM CDT Ordered by an unspecified provider. Scanned Document CARDIAC SERVICES ORD ERABLES * (ABNORMAL) GLUCOSE - POINT OF CARE (11/16/2020 8:15 AM CDT) Only the most recent of43 resultswithin the time period is included. [facility] Glucose WB/POC 122(H) 70 - 106 mg/dL 11/18/2020 6:08 AM CDT [facility] Specimen Type Arterial/C apillary 11/18/2020 6:08 AM CDT [facility] Blood BLOOD SPECIMEN / Unknown 11/16/2020 8:15 AM CDT 11/18/2020 6:08 AM CDT Zachary Griffith MD LAB - POINT OF CARE ORDERABLES [facility] [address] [place] [address] * (ABNORMAL) CBC W AUTO DIFFERENTIAL (11/14/2020 4:14 AM CDT) Only the most recent of10 resultswithin the time period is included. [facility] WBC 6.9 4.4 - 10.7 x10E9/L 11/14/2020 4:49 AM CDT [facility] WBC Corrected 11/14/2020 4:49 AM CDT [facility] RBC 3.25(L) 3.80 - 5.20 x10E12/L 11/14/2020 4:49 AM CDT [facility] Hemoglobin 9.4(L) 12.0 - 15.6 gm/dL 11/14/2020 4:49 AM CDT [facility] Hematocrit 30.8(L) 35.9 - 45.5 % 11/14/2020 4:49 AM CDT [facility] MCV 94.8 80.7 - 98.3 fl 11/14/2020 4:49 AM CDT [facility] MCH 28.9 26.7 - 34.0 pg 11/14/2020 4:49 AM CDT [facility] MCHC 30.5(L) 30.8 - 35.9 gm/dL 11/14/2020 4:49 AM CDT [facility] Platelet Count 226 153 - 416 x10E9/L 11/14/2020 4:49 AM CDT [facility] RDW-CV 15.7(H) 12.1 - 14.9 % 11/14/2020 4:49 AM CDT [facility] MPV 9.5 9.4 - 12.9 fl 11/14/2020 4:49 AM CDT [facility] Neutrophils % 67.0 44.0 - 73.0 % 11/14/2020 4:49 AM CDT [facility] Lymphocytes % 22.3 20.0 - 43.0 % 11/14/2020 4:49 AM CDT [facility] Monocytes % 10.1 5.0 - 13.0 % 11/14/2020 4:49 AM CDT [facility] Eosinophils % 0.1 0.0 - 6.0 % 11/14/2020 4:49 AM CDT [facility] Basophils % 0.1 0.0 - 2.0 % 11/14/2020 4:49 AM CDT [facility] Immature Granulocytes 0.4 0 - 1 % 11/14/2020 4:49 AM CDT [facility] Neutrophil Absolute 4.63 2.01 - 7.14 x10E9/L 11/14/2020 4:49 AM CDT [facility] Lymphocytes Absolute 1.54 1.07 - 3.94 x10E9/L 11/14/2020 4:49 AM CDT [facility] Monocytes Absolute 0.70 0.26 - 1.07 x10E9/L 11/14/2020 4:49 AM CDT [facility] Eosinophils Absolute 0.01 0 - 0.47 x10E9/L 11/14/2020 4:49 AM CDT [facility] Basophils Absolute 0.01 0 - 0.08 x10E9/L 11/14/2020 4:49 AM CDT [facility] Immature Granulocytes Absolute 0.03 0.00 - 0.06 x10E9/L 11/14/2020 4:49 AM CDT [facility] nRBC Auto 0 /100 WBC 11/14/2020 4:49 AM CDT [facility] Blood BLOOD SPECIMEN / Unknown Lab Venipuncture / Unknown 11/14/2020 4:14 AM CDT 11/14/2020 4:35 AM CDT Carlos Velarde MD LAB - HEMATOLOGY ORD ERABLES Performing Organization Address City/State/[facility] Co de Phone Number [facility] [address] [place] [address] * (ABNORMAL) COMPREHENSIVE METABOLIC PANEL (11/14/2020 4:14 AM CDT) Only the most recent of7 resultswithin the time period is included. Glucose 137(H) 70 - 105 mg/dL 11/14/2020 5:28 AM CDT [facility] Sodium 141 136 - 145 mmol/L 11/14/2020 5:28 AM CDT [facility] Potassium 3.8 3.5 - 5.1 mmol/L 11/14/2020 5:28 AM CDT [facility] Chloride 96(L) 98 - 107 mmol/L 11/14/2020 5:28 AM CDT [facility] CO2 42(HH) 23 - 31 mmol/L 11/14/2020 5:28 AM CDT [facility] Calcium 8.9 8.4 - 10.4 mg/dL 11/14/2020 5:28 AM CDT [facility] Anion Gap 3(L) 8 - 18 mmol/L 11/14/2020 5:28 AM CDT [facility] Comment:Attention clinician: ??Reference Range change. BUN 24(H) 9.8 - 20.1 mg/dL 11/14/2020 5:28 AM CDT [facility] Creatinine 0.58 0.57 - 1.11 mg/dL 11/14/2020 5:28 AM CDT [facility] Alkaline Phosphatase 61 40 - 150 U/L 11/14/2020 5:28 AM CDT [facility] Comment:Attention clinician: ??Reference Range change. ALT 23 0 - 61 U/L 11/14/2020 5:28 AM CDT [facility] AST 7 5 - 34 U/L 11/14/2020 5:28 AM CDT [facility] Protein Total 5.6(L) 6.4 - 8.3 gm/dL 11/14/2020 5:28 AM CDT [facility] Albumin 3.2 3.2 - 4.6 gm/dL 11/14/2020 5:28 AM CDT [facility] Bilirubin Total 0.3 0.2 - 1.2 mg/dL 11/14/2020 5:28 AM CDT [facility] Comment:Attention clinician: ??Reference Range change. eGFR by MDRD >60 mL/min/1.7 3m2 11/14/2020 5:28 AM CDT [facility] eGFR by MDRD >60 mL/min/1.7 3m2 11/14/2020 5:28 AM CDT [facility] Blood BLOOD SPECIMEN / Unknown Lab Venipuncture / Unknown 11/14/2020 4:14 AM CDT 11/14/2020 4:35 AM CDT Tono Clinton MD LAB - CHEMISTRY ELIZABETH ETIENNE [facility] Organization Address City/State/ZIP Co de Phone Number [facility] [address], [place] [id number] * MAGNESIUM BLOOD (11/14/2020 4:14 AM CDT) Only the most recent of9 resultswithin the time period is included. Magnesium 2.0 1.6 - 2.6 mg/dL 11/14/2020 5:14 AM CDT [facility] Blood BLOOD SPECIMEN / Unknown Lab Venipuncture / Unknown 11/14/2020 4:14 AM CDT 11/14/2020 4:35 AM CDT Tono Clinton MD LAB - CHEMISTRY ORDAugustin ETIENNE Performing Organization Address [facility] Co de Phone Number [facility] [address], [place] [phone] * (ABNORMAL) SLIDE SCAN HEMATOLOGY (11/12/2020 4:24 AM CDT) Pathologist [facility] WBC Morph Normal 11/12/2020 6:22 AM CDT [facility] RBC Morphology Normal 11/12/2020 6:22 AM CDT [facility] Platelet Estimation Adequate platelets Normal, Adequate platelets 11/12/2020 6:22 AM CDT [facility] Clumped Platelets Occasional(A ) None 11/12/2020 6:22 AM CDT [facility] Blood BLOOD SPECIMEN / Unknown Lab Venipuncture / Unknown 11/12/2020 4:24 AM CDT 11/12/2020 4:41 AM CDT Carlos Velarde MD LAB - HEMATOLOGY DEVIN MUNGUIA Performing Organization Address [facility] Co de Phone Number [facility] [address] [place] [address] * (ABNORMAL) BLOOD GASES ARTERIAL (11/08/2020 3:24 PM CDT) Only the most recent of5 resultswithin the time period is included. pH Arterial 7.39 7.35 - 7.45 pH 11/08/2020 3:37 PM CDT [facility] pCO2 Arterial 70(H) 35 - 45 mm hg 11/08/2020 3:37 PM CDT [facility] Comment:H pO2 Arterial 73(L) 80 - 100 mm hg 11/08/2020 3:37 PM CDT [facility] Comment:L HCO3 Arterial 41(H) 22 - 26 mmol/L 11/08/2020 3:37 PM CDT [facility] Comment:H BE Arterial 13.6(H) -2.0 - 2.0 mmol/L 11/08/2020 3:37 PM CDT [facility] Comment:H O2 Saturation Arterial 94 90 - 100 % 11/08/2020 3:37 PM CDT [facility] Hemoglobin Arterial 11.3(L) 12.0 - 15.6 gm/dL 11/08/2020 3:37 PM CDT [facility] Carboxyhemoglobin Arterial 0.2 0.0 - 2.5 % 11/08/2020 3:37 PM CDT [facility] Methemoglobin Arterial 0.4 0.0 - 2.0 % 11/08/2020 3:37 PM CDT [facility] Oxyhemoglobin Arterial 93 % 11/08/2020 3:37 PM CDT [facility] Mode NC 11/08/2020 3:37 PM CDT [facility] Samm's Test Positive 11/08/2020 3:37 PM CDT [facility] Liter Flow (LPM) 2.00 11/09/19 21 3:37 PM CDT [facility] Sample Site R Radial 11/08/2020 3:37 PM CDT [facility] Sample Type Arterial 11/08/2020 3:37 PM CDT [facility] [employer] ID [id number] 11/08/2020 3:37 PM CDT [facility] Blood, arterial ARTERIAL BLOOD SPECIMEN / Unknown 11/08/2020 3:24 PM CDT 11/08/2020 3:24 PM CDT Tono Clinton MD LAB - BLOOD GASES OR DERABLES Performing Organization Address City/State/[facility] Co de Phone Number [facility] [address] [place] [address] * (ABNORMAL) RENAL FUNCTION PANEL (11/07/2020 3:27 AM CDT) Glucose 192(H) 70 - 105 mg/dL 11/07/2020 4:10 AM CDT [facility] Sodium 141 136 - 145 mmol/L 11/07/2020 4:10 AM CDT [facility] Potassium 4.1 3.5 - 5.1 mmol/L 11/07/2020 4:10 AM CDT [facility] Chloride 97(L) 98 - 107 mmol/L 11/07/2020 4:10 AM CDT [facility] CO2 37(H) 23 - 31 mmol/L 11/07/2020 4:10 AM CDT [facility] Calcium 8.4 8.4 - 10.4 mg/dL 11/07/2020 4:10 AM CDT [facility] Anion Gap 7(L) 8 - 18 mmol/L 11/07/2020 4:10 AM CDT [facility] Comment:Attention clinician: ??Reference Range change. BUN 32(H) 9.8 - 20.1 mg/dL 11/07/2020 4:10 AM CDT [facility] Creatinine 0.64 0.57 - 1.11 mg/dL 11/07/2020 4:10 AM CDT [facility] Albumin 2.9(L) 3.2 - 4.6 gm/dL 11/07/2020 4:10 AM CDT [facility] Phosphorus 3.6 2.3 - 4.7 mg/dL 11/07/2020 4:10 AM CDT [facility] Comment:Attention clinician: ??Reference Range change. eGFR by MDRD >60 mL/min/1.7 3m2 11/07/2020 4:10 AM CDT [facility] eGFR by MDRD >60 mL/min/1.7 3m2 11/07/2020 4:10 AM CDT [facility] Blood BLOOD SPECIMEN / Unknown Venipuncture / Unknown 11/07/2020 3:27 AM CDT 11/07/2020 3:32 AM CDT Carlos Velarde MD LAB - CHEMISTRY ELIZABETH ETIENNE [facility] Organization Address City/State/ZIP Co de Phone Number [facility] [address], [place] [phone] * (ABNORMAL) TRIGLYCERIDES BLOOD (11/06/2020 4:20 AM CDT) Triglycerides 214(H) <150 mg/dL 11/06/2020 5:11 AM CDT [facility] Blood BLOOD SPECIMEN / Unknown Venipuncture / Unknown 11/06/2020 4:20 AM CDT 11/06/2020 4:37 AM CDT Kenney Canas DO LAB - CHEMISTRY ORDERABLES Performing Organization Address City/[facility]/ZIP Co de Phone Number [facility] [address] [place] [address] * PHOSPHORUS BLOOD (11/06/2020 4:20 AM CDT) Phosphorus 2.9 2.3 - 4.7 mg/dL 11/06/2020 5:11 AM CDT [facility] Blood BLOOD SPECIMEN / Unknown Venipuncture / Unknown 11/06/2020 4:20 AM CDT 11/06/2020 4:37 AM CDT Carlos Velarde MD LAB - CHEMISTRY [facility] Performing Organization Address [facility] Co de Phone Number [facility] [address] [place] [address] * XR ABDOMEN KUB (11/06/2020 1:02 AM CDT) Only the most recent of2 resultswithin the time period is included. Anatomical Region Laterality Modality Abdomen Radiographic Cesia ging 11/06/2020 12:0 4 PM CDT Impressions 11/06/2020 12:04 PM CDT Feeding tube in stomach. *Reading Radiologist: Jony Ray on 11/06/2020 at 12:04 PM Narrative 11/06/2020 12:04 PM CDT KUB. HISTORY: Dobbhoff placement. Single view of the abdomen shows feeding tube tip projected in the distal stomach. The tube may be kinked. Bowel gas pattern is unremarkable. Procedure Note Jony Ray MD - 11/06/2020 KUB. HISTORY: Dobbhoff placement. Single view of the abdomen shows feeding tube tip projected in the distal stomach. The tube may be kinked. Bowel gas pattern is unremarkable. IMPRESSION Feeding tube in stomach. *Reading Radiologist: Jony Ray on 11/06/2020 at 12:04 PM Kenney Canas DO DIAGNOSTIC IMAGI NG ORDERABLES * CULTURE MRSA (11/05/2020 11:54 AM CDT) Culture Negative for methicillin-resist ant Staphylococcus aureus (MRSA) [place] 11/07/2020 6:40 AM CDT [facility] Microbiology SPECIMEN FROM NASAL FOSSAE / Unknown Collection / Unknown 11/05/2020 11:54 AM CDT 11/05/2020 12:20 PM CDT Carlos Velarde MD LAB - MICROBIOLOGY O RDERABLES [facility] [address] [place], [place] [address], [facility] [phone] * SARS-COV-2 (COVID-19) IN HOUSE (11/05/2020 8:40 AM CDT) COVID-19 PCR Not detected Not detected 11/05/2020 2:04 PM CDT [facility] Microbiology SPECIMEN FROM NASOPHARYNGEAL STRUCTURE / Unknown Collection / Unknown 11/05/2020 8:40 AM CDT 11/05/2020 8:49 AM CDT Narrative [facility] - 11/05/2020 2:04 PM CDT This nucleic acid amplification assay performance was validated by [facility]. This test has been authorized by the Food and Drug administration (FDA)under an Emergency??Use Authorization (EUA). This test has been validated in accordance with the FDA's guidance document Policy for Diagnostic Testing in Laboratories Certified to perform High Complexity Testing under CLIA prior to Emergency Use Authorization for Coronavirus Disease-2019 during the Public Health Emergency issued on October 03, 2019. FDA independent review of this validation is pending. This test is only authorized for the duration of time the declaration that circumstances exist justifying the authorization of emergency use of in vitro diagnostic tests for detection of SARS-CoV-2 virus and/or diagnosis of COVID-19 infection under section 564(b)(1) of the Act, 21 U.S.C 360bbb-3 (b)(1), unless the authorization is terminated or revoked sooner. Fact Sheets for this EUA assay are available upon request. Carlos Velarde MD LAB - MICROBIOLOGY O RDERABLES [facility] [address] [place] [address], [facility] [phone] * EKG 12-LEAD (11/05/2020 8:34 AM CDT) Ventricular Rate 46 BPM [facility] Atrial Rate 46 BPM [facility] P-R Interval 122 ms [facility] QRS Duration ms 64 ms [facility] Q-T Interval ms 406 ms [facility] QTC Calculation (Bezet) 355 ms [facility] Calculated P [place] 10 degrees [facility] Calculated R [place] -13 degrees [facility] Calculated T [place] -24 degrees [facility] Interpretation EKG MARKED SINUS BRADYCARDIA RSR' OR QR PATTERN IN V1 SUGGESTS RIGHT VENTRICULAR CONDUCTION DELAY VOLTAGE CRITERIA FOR LEFT VENTRICULAR HYPERTROPHY INFERIOR INFARCT , AGE UNDETERMINED ABNORMAL ECG NO PREVIOUS ECGS AVAILABLE Confirmed by Jarred Gomez ([id number]) on 11/08/2020 6:27:07 PM [facility] 11/05/2020 8:34 AM CDT 11/08/2020 6:27 PM CDT Carlos Velarde MD ECG ORDERABLES Performing Organization Address [facility] Co de Phone Number [facility] * TROPONIN I (11/05/2020 8:01 AM CDT) Troponin I <0.010 <0.038 ng/mL 11/05/2020 9:23 AM CDT [facility] Blood BLOOD SPECIMEN / Unknown Venipuncture / Unknown 11/05/2020 8:01 AM CDT 11/05/2020 8:41 AM CDT Carlos Velarde MD LAB - CHEMISTRY ELIZABETH ETIENNE Performing Organization Address City/[facility]/ZIP Co de Phone Number [facility] [id number] [place] [address] * HEMOGLOBIN A1C (11/05/2020 4:33 AM CDT) Hemoglobin A1c 5.2 4.2 - 5.6 % 11/05/2020 5:38 AM CDT [facility] Estimated Average Glucose 103 mg/dL 11/05/2020 5:38 AM CDT [facility] Blood BLOOD SPECIMEN / Unknown Venipuncture / Unknown 11/05/2020 4:33 AM CDT 11/05/2020 5:14 AM CDT Narrative [facility] - 11/05/2020 5:38 AM CDT The following cutoff levels are recommended by [place] [employer]. ?? A1c ??> 6.5% : considered as diabetes if two separate tests >6.5% or in an appropriate clinical setting. A1c ??5.7% - 6.4% : considered as prediabetes (suggest increased risk for diabetes and cardiovascular disease) Control target level: ??Should be individualized. ??< 7 ??for general (non- ) , ??< 8% less stringent goal, ??< 6.5 ??more stringent goal. Hemoglobin A1c measurements are used as an aid in the diagnosis of diabetic mellitus, as an aid to identify patients who may be at the risk for developing diabetic mellitus, and for the monitoring long-term blood glucose control in individuals with diabetes mellitus. ??This test should not replace glucose testing for patients with Type 1 diabetes, pediatric patients, or women. ??Falsely low HbA1c results may be observed in patients with clinical conditions that shorten erythrocyte life span or decrease mean erythrocyte age such as the presence of unstable hemoglobin variants, elevated hemoglobin F level ??or other causes of hemolytic anemia . ??HbA1c may not accurately reflect glycemic control when clinical conditions that affect erythrocyte survival are present. ??Severe Iron deficiency anemia may yield falsely high results. ??Hemoglobin A1c assay should not be used to diagnose or monitor diabetes in patients with malignancy, recent blood transfusion, chronic kidney or liver disease. ?? This method may yield falsely low results when hemoglobin (HbF) exceeds 5% in the specimen. Kenney aCnas DO LAB - CHEMISTRY ORDERABLES [facility] [address] [place] [address] * (ABNORMAL) BASIC METABOLIC PANEL (CALCIUM TOTAL) (11/05/2020 4:33 AM CDT) Glucose 156(H) 70 - 105 mg/dL 11/05/2020 5:41 AM CDT [facility] Sodium 141 136 - 145 mmol/L 11/05/2020 5:41 AM CDT [facility] Potassium 3.9 3.5 - 5.1 mmol/L 11/05/2020 5:41 AM CDT [facility] Chloride 95(L) 98 - 107 mmol/L 11/05/2020 5:41 AM CDT [facility] CO2 41(HH) 23 - 31 mmol/L 11/05/2020 5:41 AM CDT [facility] Calcium 8.2(L) 8.4 - 10.4 mg/dL 11/05/2020 5:41 AM CDT [facility] Anion Gap 5(L) 8 - 18 mmol/L 11/05/2020 5:41 AM CDT [facility] Comment:Attention clinician: Reference Range change. BUN 19 9.8 - 20.1 mg/dL 11/05/2020 5:41 AM CDT [facility] Creatinine 0.59 0.57 - 1.11 mg/dL 11/05/2020 5:41 AM CDT [facility] eGFR by MDRD >60 mL/min/1.7 3m2 11/05/2020 5:41 AM CDT [facility] eGFR by MDRD >60 mL/min/1.7 3m2 11/05/2020 5:41 AM CDT [facility] Blood BLOOD SPECIMEN / Unknown Venipuncture / Unknown 11/05/2020 4:33 AM CDT 11/05/2020 5:14 AM CDT Kenney Canas DO LAB - CHEMISTRY ORDERABLES [facility] [address] [place] [address] * CULTURE SPUTUM+GRAM STAIN (11/04/2020 11:29 PM CDT) Culture No growth [place] 11/07/2020 7:46 AM CDT [facility] Gram Stain <10 per low power field Squamous epithelial cells 11/07/2020 7:46 AM CDT [facility] Gram Stain <10 per low power field Polymorphonuclear cells 11/07/2020 7:46 AM CDT [facility] Gram Stain No organisms seen 021 7:46 AM CDT [facility] Microbiology SPUTUM / Unknown Collection / Unknown 11/04/2020 11:29 PM CDT 11/05/2020 12:17 AM CDT Kenney Canas LAB - MICROBIOLO GY ORDERABLES Performing Organization Address City/[facility]/ZIP Co de Phone Number [facility] [address] [place] [address], [facility] [phone] * CULTURE BLOOD (11/04/2020 10:19 PM CDT) Only the most recent of2 resultswithin the time period is included. Culture No growth day 5 [place] 11/10/2020 1:42 AM CDT [facility] Blood PERIPHERAL BLOOD / Unknown Venipuncture / Unknown 11/04/2020 10:19 PM CDT 11/04/2020 10:43 PM CDT Kenney Canas DO LAB - MICROBIOLO GY ORDERABLES Performing Organization Address City/[facility] Co de Phone Number [facility] [address] [place] [address], [facility] [phone] * (ABNORMAL) URINALYSIS REFLEX TO MICROSCOPIC NO CULTURE (11/04/2020 9:54 PM CDT) Color UA Yellow Straw, Yellow 11/04/2020 10:08 PM CDT [facility] Clarity UA Clear Clear 11/04/2020 10:08 PM CDT [facility] Glucose UA Negative Negative 11/04/2020 10:08 PM CDT [facility] Bilirubin UA Negative Negative 11/04/2020 10:08 PM CDT [facility] Ketone UA Negative Negative 11/04/2020 10:08 PM CDT [facility] Specific [place] UA 1.017 1.005 - 1.030 11/04/2020 10:08 PM CDT [facility] Blood UA 1+(A) Negative 11/04/2020 10:08 PM CDT [facility] pH UA 6.0 5.0 - 8.0 pH 11/04/2020 10:08 PM CDT [facility] Protein UA 1+(A) Negative 11/04/2020 10:08 PM CDT [facility] Urobilinogen UA Negative Negative mg/dL 11/04/2020 10:08 PM CDT [facility] Nitrite UA Negative Negative 11/04/2020 10:08 PM CDT [facility] Leukocyte UA Negative Negative 11/04/2020 10:08 PM CDT [facility] Urine Microscopy Urine microscopy to follow 11/04/2020 10:08 PM CDT [facility] Urine URINE SPECIMEN OBTAINED BY SINGLE CATHETERIZATION OF URINARY BLADDER / Unknown Collection / Unknown 11/04/2020 9:54 PM CDT 11/04/2020 10:02 PM CDT Narrative [facility] - 11/04/2020 10:08 PM CDT Kenney Canas DO LAB - URINALYSIS ORDERABLES Performing Organization Address City/State/[facility] Co de Phone Number [facility] [address] [place] [address] * (ABNORMAL) URINE MICROSCOPIC ONLY (11/04/2020 9:54 PM CDT) RBC UA 3-5 None Seen, 0-2, 3-5 # /hpf 11/04/2020 10:15 PM CDT [facility] WBC UA 0-5 None Seen, 0-5 # /hpf 11/04/2020 10:15 PM CDT [facility] Hyaline Casts 3-5(A) None Seen, 0-2 # /lpf 11/04/2020 10:15 PM CDT [facility] Bacteria UA None Seen None Seen 11/04/2020 10:15 PM CDT [facility] Squamous Epithelial Cells 0-2 None Seen, 0-2, 3-5 /hpf 11/04/2020 10:15 PM CDT [facility] Mucus UA 1+ /LPF 11/04/2020 10:15 PM CDT [facility] Urine URINE SPECIMEN OBTAINED BY SINGLE CATHETERIZATION OF URINARY BLADDER / Unknown Collection / Unknown 11/04/2020 9:54 PM CDT 11/04/2020 10:02 PM CDT Narrative [facility] - 11/04/2020 10:15 PM CDT Kenney Canas DO LAB - URINALYSIS ORDERABLES Performing Organization Address [facility] Co de Phone Number [facility] [address] [place] [address] * STREP PNEUMONIAE ANTIGEN URINE (11/04/2020 9:54 PM CDT) Streptococcus pneumoniae Antigen Urine Negative Negative 11/05/2020 7:32 AM CDT [facility] Urine URINE / Unknown Collection / Unknown 11/04/2020 9:54 PM CDT 11/04/2020 10:[address] [facility] - 11/05/2020 7:32 AM CDT Patients who have received the Streptococcus pneumoniae vaccines may test positive in the 48 hours following vaccination. It is recommended to avoid testing within five days of receiving vaccination. Testing pediatric patients is discouraged because of their high rates of nasal colonization with Streptococcus pneumoniae leading to false positive results. Samples from patients taking antibiotics for more than 24 hours may cause false negatives. Kenney Canas DO LAB - MICROBIOLO GY ORDERABLES Performing Organization Address City/[facility] Co de Phone Number [facility] [address] [facility] [place], [place] [address] [phone] * LEGIONELLA ANTIGEN URINE (11/04/2020 9:54 PM CDT) Legionella Antigen Urine Negative Negative 11/05/2020 7:33 AM CDT [facility] Urine URINE / Unknown Collection / Unknown 11/04/2020 9:54 PM CDT 11/04/2020 10:[address] [facility] - 11/05/2020 7:33 AM CDT This assay detects Legionella pneumophila serogroup one (1) antigen. A negative test result does not rule out the possibility of Legionella infection due to other serogroups or species of Legionella. A positive result may indicate a recent or remote infection with serogroup 1. Kenney Canas DO LAB - MICROBIOLO GY ORDERABLES [facility] [address] [place], [place] [address], [facility] [phone] * (ABNORMAL) PROCALCITONIN LEVEL (11/04/2020 8:54 PM CDT) [facility] Procalcitonin 0.14(H) <0.10 ng/mL 11/04/2020 9:46 PM CDT [facility] Blood BLOOD SPECIMEN / Unknown Venipuncture / Unknown 11/04/2020 8:54 PM CDT 11/04/2020 9:05 PM CDT Narrative [facility] - 11/04/2020 9:46 PM CDT The change in procalcitonin (PCT) concentration over time provides support in decision making on antibiotic discontinuation for suspected or confirmed septic patients. Follow-up samples should be tested once every 1-2 days based upon physician discretion taking into account the patient? s evolution and progress. Consider discontinuation of ??antibiotic therapy ??if the PCT current ??is <= 0.5 ng/mL or if the delta PCT is > 80%. ??Duration of antibiotics should not be determined solely on PCT; established guidelines for the indication should be followed. ? PCT peak: ??Highest observed PCT concentration ? PCT current: Most recent PCT concentration ? Calculate delta PCT using the following equation: ?Delta PCT ??= ?? PCT Peak ? PCT current ??X 100% ? PCT Peak The Change in Procalcitonin Calculator is available at [email or web address] ?? If clinical picture has not improved and PCT remains high, reevaluate and consider treatment failure or other causes. Kenney Canas DO LAB - CHEMISTRY ORDERABLES Performing Organization Address [facility] Co de Phone Number [facility] [address] [place] [address] * (ABNORMAL) B-TYPE NATRIURETIC PEPTIDE (11/04/2020 8:54 PM CDT) BNP 133(H) <=100 pg/mL 11/04/2020 9:32 PM CDT [facility] Blood BLOOD SPECIMEN / Unknown Venipuncture / Unknown 11/04/2020 8:54 PM CDT 11/04/2020 9:05 PM CDT Narrative [facility] - 11/04/2020 9:32 PM CDT A cutoff of 100 pg/mL has been demonstrated to provide the maximal combination of sensitivity, specificity, and negative predictive value for contributing to the diagnosis of congestive heart failure (CHF) only. ??A B-Type Natriuretic Peptide (BNP) value greater than or equal to 100 pg/mL is consistent with a diagnosis of CHF in the appropriate clinical setting. ??False positive results are more common in females greater than 75 years of age. ??Blood concentrations of natriuretic peptides may also be elevated in patients with myocardial infarction and in patients who are candidates for or are undergoing renal dialysis. Kenney Canas DO LAB - CHEMISTRY ORDERABLES Performing Organization Address [facility] Co de Phone Number [facility] [address] [place] [address] * LACTIC ACID BLOOD (11/04/2020 8:54 PM CDT) Pathologist [facility] Lactic Acid 1.1 0.5 - 2.2 mmol/L 11/04/2020 9:21 PM CDT [facility] Blood BLOOD SPECIMEN / Unknown Venipuncture / Unknown 11/04/2020 8:54 PM CDT 11/04/2020 9:05 PM CDT Kenney Canas DO LAB - CHEMISTRY ORDERABLES [facility] [address] [place] [address] * XR CHEST 1VW PORTABLE (11/04/2020 8:00 PM CDT) Anatomical Region Laterality Modality Chest Radiographic Cesia ging 11/04/2020 8:11 PM CDT Impressions 11/04/2020 8:13 PM CDT 1. ??Intubated 2. ??Lungs probably clear *Reading Radiologist: Mahnaz More on 11/04/2020 at 8:13 PM Narrative 11/04/2020 8:13 PM CDT Chest, one view portable DATE: 11/04/2020 at 1953 hours INDICATION: Intubation and hypoxia. FINDINGS: The endotracheal tube ends between the clavicles and tricia. ??The lungs are probably clear although there is questionable bilateral parahilar opacity. ??This may be artifactual due to patient positioning. ??No pneumothorax or pleural fluid collection. ??The heart size is probably normal but evaluation is limited. Procedure Note Mahnaz More MD - 11/04/2020 Chest, one view portable DATE: 11/04/2020 at 1953 hours INDICATION: Intubation and hypoxia. FINDINGS: The endotracheal tube ends between the clavicles and tricia. The lungs are probably clear although there is questionable bilateral parahilar opacity. This may be artifactual due to patient positioning. No pneumothorax or pleural fluid collection. The heart size is probably normal but evaluation is limited. IMPRESSION 1. Intubated 2. Lungs probably clear *Reading Radiologist: Mahnaz More on 11/04/2020 at 8:13 PM Kenney Canas DO DIAGNOSTIC IMAGI NG ORDERABLES
--- OUTSIDE RECORDS SUMMARY | 2024-08-05 02:29 | XMS_ITS | Clinical Summary ---
Author Organization [facility] Address [address] [place] [address] Care Team Providers Care Grant Specialist Name Role Phone Unavailable Primary Care Provider Unavailabl e Source Comments [facility],non-owned Affiliates and Associated Physician Practices is amultiple site organization consisting of ambulatory clinics and hospital sitesin [place], [place], [place] and [place]. This disclosure is being madepursuant to the Care Everywhere program and may not contain all information available regarding this patient. Last updated 18.[facility] Allergies No known active allergies Medications * Be aware that medications may not be up to date on this document. Alwaysverify current medications with the patient. Medication Sig Dispensed Refills Start Date End Date Status albuterol HFA (PROVENTIL;VENTOLIN ;PROAIR) 108 (90 Base) MCG/ACT inhaler Inhale 2 puffs by mouth every 6 hours as needed Active pantoprazole EC (PROTONIX) 40 MG tablet Take 40 mg by mouth once daily Active montelukast (SINGULAIR) 10 MG tablet Take 10 mg by mouth at bedtime Active busPIRone (BUSPAR) 10 MG tablet Take 10 mg by mouth 2 times daily Active tiotropium (SPIRIVA RESPIMAT) 2.5 MCG/ACT inhaler Inhale 2 puffs by mouth once daily Active oxyCODONE-acetamino phen (PERCOCET) 10-325 MG tablet Take 1 tablet by mouth every 12 hours Active clonazePAM (KLONOPIN) 1 MG tablet Take 1 mg by mouth at bedtime Active ferrous sulfate 325 (65 FE) MG tablet Take 325 mg by mouth 2 times daily with morning and evening meal Active Cholecalciferol (VITAMIN D3) 10 MCG (400 UNIT) tablet Take 2,000 Units by mouth once daily Active senna-docusate (SENNA PLUS) 8.6-50 MG tablet Take 2 tablets by mouth 2 times daily Active metoprolol succinate XL 24hr (TOPROL XL) 100 MG tablet Take 1 tablet by mouth Active fluticasone-vilante rol (BREO ELLIPTA) 100-25 MCG/INH inhaler Inhale 1 puff by mouth once daily Administer at the same time each day. Rinse mouth after using Active amitriptyline (ELAVIL) 25 MG tablet Take 25 mg by mouth once daily Active hydroCHLOROthiazide (MICROZIDE) 12.5 MG capsule Take 12.5 mg by mouth once daily Active lisinopril (PRINIVIL; ZESTRIL) 10 MG tablet Take 1 (one) tablet by mouth once daily 30 tablet 11/16/2020 Active metoprolol tartrate (LOPRESSOR) 25 MG tablet Take 1 (one) tablet by mouth 2 times daily 60 tablet 11/16/2020 Active polyethylene glycol 3350 (MIRALAX) 17 g packet Take 17 (seventeen) g by mouth once daily 17 g 11/16/2020 Active Active Problems Problem Noted Date Diagnosed Date [...] Mass Index 24.1 11/05/2020 6:15 AM CDT Plan of Treatment Health Maintenance Due Date Last Done Comments BONE DENSITY TESTING 1941 DTAP/TDAP/TD VACCINES (1 - Tdap) 1960 ZOSTER VACCINE (1 of 2) 1991 PNEUMOCOCCAL VACCINE 65+ (1 of 1 - PCV) 2006 Respiratory Syncytial Virus (RSV) Vaccine Pt: or over 60 yrs (1 - 1-dose 75+ series) 2016 DEPRESSION SCREENING 08/05/2023 MEDICARE AWV ? CALENDAR YEAR 2023 COVID-19 VACCINE ( - 2023- season) 2024 INFLUENZA VACCINE (#1) 2024 0, 06/05/2019, 04/29/2017, Additional history exists HEPATITIS B VACCINE Aged Out No longe r eligible based on patient's age to complete this topic HIB VACCINE Aged Out No longer eligi ble based on patient's age to complete this topic HPV VACCINE Aged Out No longer eligi ble based on patient's age to complete this topic MENINGOCOCCAL VACCINE Aged Out No lorna ion eligible based on patient's age to complete this topic Advance Directives * Full Code (Latest Code Status on File) Date Activated Date Inactivated Comments 11/04/2020 7:20 PM 11/16/2020 12:47 PM * Full Code Date Activated Date Inactivated Comments 11/04/2020 7:19 PM 11/04/2020 7:20 PM
--- OUTSIDE RECORDS SUMMARY | 2024-08-05 02:29 | XMS_ITS | Referral Summary ---
Author Organization [facility] Address [address] 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 This disclosure is being madepursuant to the Care Everywhere program and may not contain all information available regarding this patient. Last updated 18.[facility] [employer] Allergies No known active allergies Medications * [...] Mass Index 24.1 11/05/2020 6:15 AM CDT Functional Status Functional Status Response Date of [...] person have difficulty concentrating/remembering/making decisions? No 11/05/2020 Plan of Treatment Not on file Advance Directives * Full Code (Latest Code Status on File) Date Activated Date Inactivated Comments 11/04/2020 7:20 PM 11/16/2020 12:47 PM * Full Code Date Activated Date Inactivated Comments 11/04/2020 7:19 PM 11/04/2020 7:20 PM
--- OUTSIDE RECORDS SUMMARY | 2024-08-05 02:29 | XMS_ITS | Encounter Summary ---
Author Organization [facility] Address [address] [place] [address] Care Team Providers Care College Advisor Name Role Phone Unavailable Primary Care Provider Unavailabl e Reason for Visit * Auth/Cert Specialty Diagnoses / Procedures Referred By Lorenzo morin Referred To Contact Diagnoses Respiratory Failure Referral ID Status Reason Start Date Expiration Date Visits Re quested Visits Authorized [id number] 1 1 Encounter Details Date Type Department Care Team (Latest Contact Info) Description 11/04/2020 7:09 PM CDT - 11/16/2020 11:42 AM CDT Hospital Encounter [facility] MED[facility] [address] [place] [address] Carlos Velarde MD [address] [place] [address] [place] [address] [place] [address] Altaf Arias MD [address] [place] [address] Anh Griffith MD [address] [facility] [address] [place] [address] Internal Medicine Discharge Disposition: Home Health Care Svc Social History Tobacco Use Types Packs/Day Years Used Date Smoking Tobacco: Former Cigarettes Smokeless Tobacco: Former Tobacco Cessation:Counseling Given: Yes Sex and Gender Information Value Date Recorded Sex Assigned at Not on file Gender Identity Not on file Sexual Orientation Not on file documented as of this encounter Last Filed Vital Signs Vital Sign Reading [...] Mass Index 24.1 11/05/2020 6:15 AM CDT documented in this encounter Functional Status Functional Status Response [...] No 11/05/2020 documented as of this encounter Discharge Summaries * Alysha Max MD - 11/16/2020 7:53 AM CDT Physician Discharge Summary Name: Phoebe Dawn Date of : 1940 Admit date:11/04/2020 Discharge date: 11/16/20 Code Status at Discharge: Full Code Admitting Physician:Carlos Velarde MD Attending Physician:Anh Griffith MD Discharge Physician: Alysha Max MD Disposition: Home Condition at discharge: good Diagnosis: Acute on chronic hypoxic/hypercapnic respiratory failure secondary to COPD exacerbation HCAP HTN C1 type III odontoid fracture Hospital Course: This is a 80 y/o female with??severe hearing loss,??HTN,??COPD, chronic hypoxemic hypercarbic respiratory failure(home O2), ??moderate to severe??Pulm HTN (started on sildenafil, could not tolerate -developed leg edema), portacath in situ, falls, type lll odontoid fracture with ??fractures of the right and left posterior arches of C1,sprain of nuchal ligament and,compression deformities involving T12 and T11. ??She was brought to the ED at [place] with hypoxia and AMS. Workup in the outside hospital showed significant hypercapnia, COVID rapid Ag was negative, Head CT was negative, CXR with perihilar infiltrates. ??She was intubated and transferred to [facility] for further management. ?Was treated with steroids for 10 days, cefepime and vancomycin for Hcap. Patient successfully extubated on 11/07. Back to baseline O2 NC at 2 lts/min. ??She was started on lisinopril, metoprolol. Trazodone was stopped. Was discharged to home with home health care Exam on the day of discharge: Physical Exam Vitals and nursing note reviewed. Constitutional: Appearance: Normal appearance. HENT: Head: Normocephalic. Neck: Comments: Neck collar is in place Cardiovascular: Rate and Rhythm: Normal rate. Heart sounds: No murmur heard. Pulmonary: Effort: No respiratory distress. Breath sounds: No wheezing or rales. Comments: On NC Abdominal: General: Abdomen is flat. Bowel sounds are normal. Palpations: Abdomen is soft. Tenderness: There is no abdominal tenderness. Musculoskeletal: Right lower leg: No edema. Left lower leg: No edema. Skin: General: Skin is warm. Neurological: Mental Status: She is alert. Laboratory & Imaging Studies: Recent Labs Component Name 11/14/20 0414 11/12/20 0424 11/11/20 0807 WBC 6.9 9.2 11.4* RBC 3.25* 2.93* 3.74* HGB 9.4* 8.6* 11.0* HCT 30.8* 27.0* 35.4* MCV 94.8 92.2 94.7 MCHC 30.5* 31.9 31.1 PLTCOUNT 226 180 251 NEUTPCT 67.0 67.0 66.5 LYMPHPCT 22.3 20.5 21.4 BASOPHILPCT 0.1 0.1 0.1 GRANSIMMPCT 0.4 0.5 0.4 NEUTABS 4.63 6.18 7.57* LYMPHABS 1.54 1.89 2.44 BASOABS 0.01 0.01 0.01 Recent Labs Component Name 11/14/20 0414 11/12/20 0424 11/11/20 0807 SODIUM 141 140 141 POTASSIUM 3.8 4.5 3.6 CHLORIDE 96* 92* 99 CO2 42* 38* 37* BUN 24* 22* 19 CREATININE 0.58 0.60 0.57 GLUCOSE 137* 115* 102 CALCIUM 8.9 8.9 9.0 ALT 23 32 37 ALKPHOS 61 57 68 AST 7 32 12 TBIL 0.3 0.4 0.4 TPROT 5.6* 6.4 6.0* EGFR >60 >60 >60 EGFRAFR >60 >60 >60 ALBUMIN 3.2 3.3 3.3 XR ABDOMEN KUB Result Date: 11/06/2020 KUB. HISTORY: Dobbhoff placement. Single view of the abdomen shows feeding tube tip projected in the distal stomach. The tube may be kinked. Bowel gas pattern is unremarkable. Feeding tube in stomach. *Reading Radiologist: Jony Ray on 11/06/2020 at 12:04 PM XR ABDOMEN KUB Result Date: 11/05/2020 EXAMINATION: ABDOMEN KUB HISTORY: Dobbhoff tube placement. COMPARISON: None. FINDINGS/IMPRESSION: 1. 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 2. There is no evidence of kinking of the Dobbhoff tube. 3. A right femoral central line is in place. The bowel gas pattern is nonobstructive. The imaged lung bases are clear. Extensive costochondral calcifications are noted. *Reading Radiologist: Moises Perdomo on 11/05/2020 at 9:19 AM XR CHEST 1VW PORTABLE Result Date: 11/04/2020 Chest, one view portable DATE: 11/04/2020 at 1953 hours INDICATION: Intubation and hypoxia. FINDINGS:The endotracheal tube ends between the clavicles and tricia. The lungs are probably clear although there is questionable bilateral parahilar opacity. This may be artifactual due to patient positioning. No pneumothorax or pleural fluid collection. The heart size is probably normal but evaluation is l imited. 1. Intubated 2. Lungs probably clear *Reading Radiologist: Mahnaz More on 11/04/2020 at 8:13 PM Labs Pending None Consultations None Discharge Orders Discharge Procedure Orders Follow up instructions The next time you are scheduled to see your doctor, please discuss that you might be having difficulty with breathing while you sleep. Your doctor can then advise if more evaluation is needed. ?? If follow up appointment has not been made, patient to call physician for appt ?? Patient to bring all medications to next visit Discharge Time:greater than 30 minutes Allergies: No Known Allergies Current Discharge Medication List UNREVIEWED MEDICATIONS Instructions Authorizing Provider albuterol HFA 108 (90 Base) MCG/ACT inhaler Commonly known as: Proventil;Ventolin;Proair Inhale 2 puffs by mouth every 6 hours as needed amitriptyline 25 MG tablet Commonly known as: Elavil Take 25 mg by mouth once daily Breo Ellipta 100-25 MCG/INH inhaler Generic drug: fluticasone-vilanterol Ask about: Which instructions should I use? Inhale 1 puff by mouth once daily Administer at the same time each day. Rinse mouth after using busPIRone 10 MG tablet Commonly known as: Buspar Take 10 mg by mouth 2 times daily clonazePAM 1 MG tablet Commonly known as: KlonoPIN Take 1 mg by mouth at bedtime ferrous sulfate 325 (65 FE) MG tablet Take 325 mg by mouth 2 times daily with morning and evening meal hydroCHLOROthiazide 12.5 MG capsule Commonly known as: Microzide Take 12.5 mg by mouth once daily metoprolol succinate XL 24hr 100 MG tablet Commonly known as: Toprol XL Take 1 tablet by mouth montelukast 10 MG tablet Commonly known as: Singulair Take 10 mg by mouth at bedtime oxyCODONE-acetaminophen 10-325 MG tablet Commonly known as: Percocet Take 1 tablet by mouth every 12 hours pantoprazole EC 40 MG tablet Commonly known as: Protonix Take 40 mg by mouth once daily Senna Plus 8.6-50 MG tablet Generic drug: senna-docusate Take 2 tablets by mouth 2 times daily tiotropium 2.5 MCG/ACT inhaler Commonly known as: Spiriva Respimat Inhale 2 puffs by mouth once daily traZODone 50 MG tablet Commonly known as: Desyrel Take 50 mg by mouth at bedtime vitamin D3 10 MCG (400 UNIT) tablet Take 2,000 Units by mouth once daily CC: Dr. Nagy Associated attestation - Anh Griffith MD - 11/16/2020 5:49 PM CDT Pt seen along with resident . I independenlty examined the pt, reviewed old charts and current labs and imaging Agree with residents discharge summary I spent greater than 35 minutes on discharging this patient. documented in this encounter Medications at Time of Discharge Medication Sig Dispensed Refills Start Date End Date albuterol HFA (PROVENTIL;VENTOLIN;PRO AIR) 108 (90 Base) MCG/ACT inhaler Inhale 2 puffs by mouth every 6 hours as needed amitriptyline (ELAVIL) 25 MG tablet Take 25 mg by mouth once daily busPIRone (BUSPAR) 10 MG tablet Take 10 mg by mouth 2 times daily Cholecalciferol (VITAMIN D3) 10 MCG (400 UNIT) tablet Take 2,000 Units by mouth once daily clonazePAM (KLONOPIN) 1 MG tablet Take 1 mg by mouth at bedtime ferrous sulfate 325 (65 FE) MG tablet Take 325 mg by mouth 2 times daily with morning and evening meal fluticasone-vilanterol (BREO ELLIPTA) 100-25 MCG/INH inhaler Inhale 1 puff by mouth once daily Administer at the same time each day. Rinse mouth after using hydroCHLOROthiazide (MICROZIDE) 12.5 MG capsule Take 12.5 mg by mouth once daily lisinopril (PRINIVIL; ZESTRIL) 10 MG tablet Take 1 (one) tablet by mouth once daily 30 tablet 11/16/2020 metoprolol succinate XL 24hr (TOPROL XL) 100 MG tablet Take 1 tablet by mouth metoprolol tartrate (LOPRESSOR) 25 MG tablet Take 1 (one) tablet by mouth 2 times daily 60 tablet 11/16/2020 montelukast (SINGULAIR) 10 MG tablet Take 10 mg by mouth at bedtime oxyCODONE-acetaminophen (PERCOCET) 10-325 MG tablet Take 1 tablet by mouth every 12 hours pantoprazole EC (PROTONIX) 40 MG tablet Take 40 mg by mouth once daily polyethylene glycol 3350 (MIRALAX) 17 g packet Take 17 (seventeen) g by mouth once daily 17 g 11/16/2020 senna-docusate (SENNA PLUS) 8.6-50 MG tablet Take 2 tablets by mouth 2 times daily tiotropium (SPIRIVA RESPIMAT) 2.5 MCG/ACT inhaler Inhale 2 puffs by mouth once daily documented as of this encounter Progress Notes * Armida Gutierrez RN - 11/16/2020 11:41 AM CDT Shift Summary: Pt A/Ox3, SBA. No complaints this shift. VSS. She is discharging home today. Problem: Fall Risk Goal: Fall risk and fall related injury risk are minimized (interventions related to the fall risk can be found in the flowsheet documentation) Outcome: Completed Problem: Oxygenation/Respiratory Function Goal: Patent airway Outcome: Completed Goal: Resp rate/effort will be within specified limits Outcome: Completed Problem: Glycemia Imbalance Goal: Clinical indication of glycemia balance is achieved Outcome: Completed Goal: Continuum of care needs are met for Glycemic Management Outcome: Completed Problem: Skin Integrity Goal: Skin integrity is maintained or improved Outcome: Completed Problem: Mobility Goal: STG - Patient will ambulate Description: 150 ft with least restrictive assistive device with modified independence. Outcome: Completed Goal: STG - Patient will ascend and descend four to six stairs Description: With one handrail with supervision. Outcome: Completed Goal: STG - Patient is independent with home exercise program. Outcome: Completed Problem: Transfers Goal: STG - Patient to transfer to and from sit to supine Description: With modified independence. Outcome: Completed Goal: STG - Patient will transfer sit to and from stand Description: With modified independence. Outcome: Completed Problem: General Goal: STG(1)-Patient will Description: Complete LB dressing, AE prn, SBA Outcome: Completed Goal: STG-Patient will Description: Complete toileting tasks and transfer, SBA Outcome: Completed Problem: Oral Intake: Inadequate oral intake Goal: Total intake will meet estimated nutrient needs Description: Estimated Needs: KCAL: 6544-3573(20-23 kcal/kg BW) Protein (g): 78-131 gm(1.2-2.0 gm/kg of ABW) Outcome: Completed Problem: Impaired Gas Exchange Goal: Resp rate/effort will be within specified limits Outcome: Completed * Irasema Russell RN - 11/16/2020 8:34 AM CDT [facility] Acute Rehab update: [facility] has denied the P2P stating would approve snf. Denial is because services can be provided at a lower level of care. AR will sign off now on pt due to insurance denial. Thanks for referral, Irasema Russell RN, BSN Clinical Liaison [facility] [phone] * Inez Geronimo RN - 11/16/2020 4:33 AM CDT Problem: Fall Risk Goal: Fall risk and fall related injury risk are minimized (interventions related to the fall risk can be found in the flowsheet documentation) Outcome: Progressing Pt remained free from injury, fall precautions in place, call light within reach, bed in low position. Problem: Oxygenation/Respiratory Function Goal: Patent airway Outcome: Progressing Pt remains on o2 at 2 liters, pt up in room and to bsc without any issues, no respiratory distress noted. * Roseline Parker RN - 11/15/2020 5:16 PM CDT Problem: Fall Risk Goal: Fall risk and fall related injury risk are minimized (interventions related to the fall risk can be found in the flowsheet documentation) Outcome: Progressing Problem: Oxygenation/Respiratory Function Goal: Patent airway Outcome: Progressing Problem: Glycemia Imbalance Goal: Clinical indication of glycemia balance is achieved Outcome: Progressing Problem: Impaired Gas Exchange Goal: Resp rate/effort will be within specified limits Outcome: Progressing Shift summary: Pt alert and oriented x2. Afebrile. No complain of pain or shortness of breath. O2 sat drops to 70's-80's when pt is sleeping, refused cpap. With oxygen at 2 L by nasal canula. Neck collar in place. With bed alarm in place for safety. Encouraged to call for assistance. * Luma King, PT - 11/15/2020 3:31 PM CDT Physical Therapy Treatment Summary Chart review completed. Nursing consented for PT. Patient consented to participate in therapy. SUBJECTIVE: Patient in bathroom upon PT arrival. She refused to ambulate outside the room or sit inthe chair. Pain Assessment: Pain Rating Score #: 0 OBJECTIVE: Orientation Level: Oriented to Person Bed Mobility: Sit to Supine: Stand By Assist Transfers: Sit to Stand: Stand By Assist Stand to Sit: Stand By Assist Mobility: Distance Ambulated: 25 FEET (refused to ambulate farther) Ambulation: Assistive Device: Gait Belt Ambulation: Level of Assistance: Stand By Assist Ambulation: Gait Deviations: Chava - Decreased Balance: Sitting - Static: Good Sitting - Dynamic: Good Standing - Static: Good Standing - Dynamic: Fair + Activity Tolerance and O2 Requirements: Activity Tolerance: Requires rest breaks;Requires seated rest breaks;Complains of shortness of breath after standing activity/gait O2 L/M: 2 L/Minute O2 DEVICE: Nasal Cannula Vital Signs: SpO2: 94 % (with activity on 2L) Exercise: Patient refused Patient left in bed per pt request with call light and phone within reach. Bed alarm reactivated. All lines, monitors, IV's, equipment in place and intact pre and post visit. Nursing informed about today's treatment session. Please refer to Filed Flowsheet for more detailed information. Refer to care plan for goals. ASSESSMENT: Patient stands from commode with SBA using handrail. She ambulates 25ft back to the bedwith SBA without AD. Patient refused to ambulate farther, refused to perform strengthening exercises, refused to sit in chair and insists on returning to bed. She performs sit to supine transfer log roll this session with SBA. RECOMMENDATIONS/PLAN: Recommend continued PT during acute care stay and d/c home with 24 hour family assist and HHPT to improve strength, balance, endurance, safety with functional mobility. If this is the last Physical Therapy visit, this note serves as the discharge summary. * Willa Lock RN - 11/15/2020 3:27 PM CDT Case Management Progress Note Anticipated level of care at discharge: Home Health Care Discharge Plan: home with home health Insurance denied for AR. Family is ok with talking patient home. She has / care. Basic Needs Assessment (BNA) Score: 3 Anticipated Discharge Date: Anticipated Discharge Date: 11/16/20 Transportation at Discharge: Family Transportation to MD:Family Equipment at Home: Equipment At Home: Chair-Shower;Hand Held Shower;Home O2 Additional DME needed: Hunger Screening: Within the past 12 months the food we bought just didn't last and we didn't have money to get more.: Unable to assess Within the past 12 months we worried whether our food would run out before we got money to buy more: Unable to assess Medication affordability concerns: No Auth Number (if required) NH: DME: Medications: Transportation: Name: Willa Lock RN * Angelica Ramos OT - 11/15/2020 3:13 PM CDT Occupational Therapy Treatment Summary : Per RN, OK to see patient for OT treatment session at this time. OT session focuses on addressingimpairments and facilitating increased functional performance with daily tasks to reach goal of independence/PLOF. Subjective: I have to go to the bathroom Pain Assessment: Pain Rating Score #: 0 Bed Mobility: Rolling: Activity Does Not Occur Supine to Sit: Modified Dickens Transfers: Sit to Stand: Stand By Assist Stand to Sit: Stand By Assist Toilet Transfers: Stand By Assist Basic ADL: Oral Facial Hygiene: Stand By Assist (standing at the sink) Upper Body Dressing: Stand By Assist Toileting: Stand By Assist Intervention: Pt was sitting EOB finishing lunch when therapist entered the room. Pt was independent with self feeding using standard utensils. Pt needed SBA to transfer sit to stand. Pt needed SBA with functional mobility in the room to ambulate to/from the bathroom without a device. Pt noted to hold onto bed and wall when ambulating. Declined use of w/w. Pt needed SBA with toilet transfer, SBA with toileting. Pt was able to complete a grooming activity while standing at the sink with SBA. Pt needed close SBA to ambulate from the bathroom to the chair in the room. Recommendations: continue OT POC. Recommend d/c home with 24 hr supervision and HH OT/PT Patient left in chair in reach of phone and call light, with chair alarm. If this is the last Occupational Therapy visit, this serves as the discharge summary. Angelica Ramos OT 11/15/2020 * Dionne Bautista MSW - 11/15/2020 2:30 PM CDT Social Work Progress Note Discharge Plan Disposition: TBD. [facility] has requested a P2P by 4pm today for AR. Otherwise still no back up SNF's faxed. Patient may decide to go H/HH. I updated Willa/CM to see if any SNF's needed faxed. AR denied. Family has decided to take Phoebe home with 25/02 care. Transportation: Transportation at discharge: Family-TBD Anticipated Discharge Date: Anticipated Discharge Date: 11/16/20 Contacts: Extended Emergency Contact Information Primary Emergency Contact: Jenn andinochum Mobile Relation: Son Secondary Emergency Contact: Jenn garciachum Mobile Relation: Daughter Comments: SW signing off. ADRIANNA Esparza, MPH, SERVICE ORDER EXPEDITER Extensions: [phone] or [phone] * Irasema Russell RN - 11/15/2020 12:34 PM CDT [facility] Acute Rehab update: [facility] UPDATE: [facility] has requested a predetermination P2P on patient Ref number [id number] P2P can be completed by having MD call [phone] opt 5. This is a direct line to the insurance MD. DEADLINE 11/15 4PM Thanks for referral, Irasema Russell RN, BSN Clinical Liaison [facility] Acute Rehab Hospital [phone] * Hanna King RN - 11/15/2020 11:48 AM CDT Per [facility]; no decision on Acute Rehab yet. Would like to do pre- determination P2P. Physician to call [phone], option 5 and ask for Spreader. P2P offer expires on 11/15 at 4 pm. * Alysha Max MD - 11/15/2020 8:57 AM CDT Internal Medicine Resident Progress Note Admission Date: 11/04/2020 Hospital Day: 11 Attending: ANH Ingram Resident/Water Valve Repairer: Drs. Max Code Status: Full Code Events since last progress note: No acute events Hospital course summary: This is a 80 y/o female with severe hearing loss, HTN,??COPD, chronic hypoxemic hypercarbic respiratory failure(home O2 3-4 L), ??moderate to severe??Pulm HTN(started on sildenafil, could not tolerate - developed leg edema), portacath in situ, falls, type lll odontoid fracture with ??fractures of the right and left posterior arches of C1,sprain of nuchal ligament and,compression deformities involving T12 and T11. ?? Presented to [facility] for hypoxia ( saturating 80s at home) and altered mental status.?? Recently?discharged from the hospital with PNA and was home for 2 days. ??She was brought to the at [place] where her WBC was elevated, COVID rapid Ag negative, Head CT negative, CXR with perihilar infiltrates, and her PCO2>100. ??She was intubated and transferred to [facility] for further management. ? Patient successfully extubated on 11/07. Back to baseline O2 NC at 2 lts/min. Patient overall stable. Review of Systems Constitutional: Negative for chills and fever. HENT: Negative for sore throat. Eyes: Negative for double vision. Respiratory: Negative for cough, shortness of breath and wheezing. Cardiovascular: Negative for chest pain and leg swelling. Gastrointestinal: Negative for abdominal pain, nausea and vomiting. Genitourinary: Negative for dysuria. Skin: Negative for itching and rash. All other systems reviewed and are negative. OBJECTIVE Unable to calculate weight change. Intake/Output Summary (Last 24 hours) at 11/15/2020 0857 Last data filed at 11/14/2020 1800 Gross per 24 hour Intake 360 ml Output -- Net 360 ml Temp (24hrs), Av.1 ??F (36.7 ??C), Min:97.7 ??F (36.5 ??C), Max:98.7 ??F (37.1 ??C) Patient Vitals for the past 24 hrs: Temp Pulse Resp BP 11/15/20 0823 97.7 ??F (36.5 ??C) 99 18 141/57 11/15/20 0513 98.4 ??F (36.9 ??C) 71 18 137/68 11/15/20 0242 -- 74 16 -- 11/15/20 0102 98.7 ??F (37.1 ??C) 86 20 153/82 11/14/20 2058 -- 91 21 -- 11/14/20 1955 97.9 ??F (36.6 ??C) 88 19 131/55 11/14/20 1611 97.8 ??F (36.6 ??C) 83 19 173/82 11/14/20 1537 -- 74 19 -- 11/14/20 1347 -- 94 -- -- 11/14/20 1203 98.3 ??F (36.8 ??C) 82 20 163/83 Physical Exam Vitals and nursing note reviewed. Constitutional: Appearance: Normal appearance. HENT: Head: Normocephalic. Neck: Comments: Neck collar is in place Cardiovascular: Rate and Rhythm: Normal rate. Heart sounds: No murmur heard. Pulmonary: Effort: No respiratory distress. Breath sounds: No wheezing or rales. Comments: On NC Abdominal: General: Abdomen is flat. Bowel sounds are normal. Palpations: Abdomen is soft. Tenderness: There is no abdominal tenderness. Musculoskeletal: Right lower leg: No edema. Left lower leg: No edema. Skin: General: Skin is warm. Neurological: Mental Status: She is alert. MAR reviewed: yes Antimicrobial day: 0 Labs: I have reviewed results from the last 24 hours and are remarkable for the following: Recent Labs Component Name 11/14/20 0414 11/12/20 0424 11/11/20 0807 WBC 6.9 9.2 11.4* RBC 3.25* 2.93* 3.74* HGB 9.4* 8.6* 11.0* HCT 30.8* 27.0* 35.4* MCV 94.8 92.2 94.7 MCHC 30.5* 31.9 31.1 PLTCOUNT 226 180 251 NEUTPCT 67.0 67.0 66.5 LYMPHPCT 22.3 20.5 21.4 BASOPHILPCT 0.1 0.1 0.1 GRANSIMMPCT 0.4 0.5 0.4 NEUTABS 4.63 6.18 7.57* LYMPHABS 1.54 1.89 2.44 BASOABS 0.01 0.01 0.01 Recent Labs Component Name 11/14/20 0414 11/12/20 0424 11/11/20 0807 SODIUM 141 140 141 POTASSIUM 3.8 4.5 3.6 CHLORIDE 96* 92* 99 CO2 42* 38* 37* BUN 24* 22* 19 CREATININE 0.58 0.60 0.57 GLUCOSE 137* 115* 102 CALCIUM 8.9 8.9 9.0 ALT 23 32 37 ALKPHOS 61 57 68 AST 7 32 12 TBIL 0.3 0.4 0.4 TPROT 5.6* 6.4 6.0* EGFR >60 >60 >60 EGFRAFR >60 >60 >60 ALBUMIN 3.2 3.3 3.3 Micro: Blood culture is negative Imaging: I have reviewed imaging studies from the last 24 hours and is summarized below: XR ABDOMEN KUB Result Date: 11/06/2020 KUB. HISTORY: Dobbhoff placement. Single view of the abdomen shows feeding tube tip projected in the distal stomach. The tube may be kinked. Bowel gas pattern is unremarkable. Feeding tube in stomach. *Reading Radiologist: Jony Ray on 11/06/2020 at 12:04 PM XR ABDOMEN KUB Result Date: 11/05/2020 EXAMINATION: ABDOMEN KUB HISTORY: Dobbhoff tube placement. COMPARISON: None. FINDINGS/IMPRESSION: 1. 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 2. There is no evidence of kinking of the Dobbhoff tube. 3. A right femoral central line is in place. The bowel gas pattern is nonobstructive. The imaged lung bases are clear. Extensive costochondral calcifications are noted. *Reading Radiologist: Moises Perdomo on 11/05/2020 at 9:19 AM XR CHEST 1VW PORTABLE Result Date: 11/04/2020 Chest, one view portable DATE: 11/04/2020 at 1953 hours INDICATION: Intubation and hypoxia. FINDINGS:The endotracheal tube ends between the clavicles and tricia. The lungs are probably clear although there is questionable bilateral parahilar opacity. This may be artifactual due to patient positioning. No pneumothorax or pleural fluid collection. The heart size is probably normal but evaluation is l imited. 1. Intubated 2. Lungs probably clear *Reading Radiologist: Mahnaz More on 11/04/2020 at 8:13 PM Assessment/Clinical Reasoning/Plan Acute on chronic respiratory failure with hypoxia and hypercapnia in the setting of COPD exacerbation - s/p 10d course of prednisone Hcap - status post antibiotics treatment Hypertension - continue with lisinopril, metoprolol, hydrochlorothiazide C1 type 3 odontoid fracture -Pain management with oxycodone and Tylenol DVT prophylaxis heparin Dispo: SNF vs C D/w IM Attending Alysha Max MD Associated attestation - Anh Griffith MD - 11/15/2020 6:56 PM CDT Attending Note I have seen and examined Phoebe Dawn on 11/15/2020 with the resident and agree with A&P. New Events Pt resting comfortably in bed. Wants to go home. Physical Exam Patient Vitals for the past 6 hrs: Temp Pulse Resp BP BP Method 11/15/20 1747 97.4 ??F (36.3 ??C) 109 18 131/77 Automatic GEN No acute distress. RESP Non labored breathing. Speaking in full sentences. NEURO Alert, oriented x 3, appropriately interactive. Reviewed labs Assessment Acute on chronic hypoxic/hypercapnic respiratory failure secondary to COPD exacerbation HCAP HTN C1 type III odontoid fracture Plan - cont duonebs, symbicort, singulair - maintain C collar. Neurosurgery outpt. - cont amitriptyline, buspirone, clonazepam - cont lisinopril, metoprolol tartrate, HCTZ - PT/OT DVT ppx: heparin Code status: Full Dispo: hopefully home with home health tomorrow. Anh Griffith MD [facility]ist * Roseline Parker RN - 11/14/2020 6:54 PM CDT Problem: Fall Risk Goal: Fall risk and fall related injury risk are minimized (interventions related to the fall risk can be found in the flowsheet documentation) Outcome: Progressing Problem: Oxygenation/Respiratory Function Goal: Patent airway Outcome: Progressing Problem: Impaired Gas Exchange Goal: Resp rate/effort will be within specified limits Outcome: Progressing Problem: Glycemia Imbalance Goal: Clinical indication of glycemia balance is achieved Outcome: Progressing Problem: Oral Intake: Inadequate oral intake Goal: Total intake will meet estimated nutrient needs Description: Estimated Needs: KCAL: 1122-2758(20-23 kcal/kg BW) Protein (g): 78-131 gm(1.2-2.0 gm/kg of ABW) Outcome: Progressing Shift summary: Pt alert and oriented x2. Very hard of hearing and impulsive. With bed alarm on for safety. With neck collar on. Pt refused some of her meds and unable to draw ABG today. Breathing unlabored. Up to bathroom frequently. Encouraged to call for assistance for safety. * MicheletMilana, RD/LD - 11/14/2020 3:47 PM CDT Problem: Oral Intake: Inadequate oral intake Goal: Total intake will meet estimated nutrient needs Description: Estimated Needs: KCAL: 2460-7953(20-23 kcal/kg BW) Protein (g): 78-131 gm(1.2-2.0 gm/kg of ABW) Outcome: Progressing CLINICAL NUTRITION REASSESSMENT Assessment: Pt seen for follow up. Pt reports appetite is improving. Denies GI issues. Currently on Regular diet and receiving Magic Cup BID and House Shakes once daily. Magic Cup Frozen Dessert (dysphagia supplement) provides 290 calories, 9 grams of protein and 38 grams of carb per serving. House Shake provides 200 calories, 6 grams protein and 30 grams of carb per 4 oz serving. Pt with COPD exacerbation. Labs noted, BG elevated, insulin in for BG control. Pt also receiving steroids, may see elevated BG during the steroid window. Weight 32# down in 6 days per EHR. Pt denies any such major change. Recommend re weigh Pt for accuracy. Will continue to follow at high risk protocol. Med/Surg History and Clinical Diagnoses: septic shock, HCAP, acute on chronic respiratory failure with hypercarbia, acute exacerbation of COPD, recent cervical spine fracture; h/o anxiety, COPD, diverticulitis, HLD Current diet order: Regular Current supplement order: Mckin[place] house shake once daily, thacker Magic Cup BID Food Allergies: No known food allergies Current tube feeding order: discontinued P.O intake for past 48 hrs: % Meal Taken Av.3 % Min: 0 % Max: 100 % P.O.Intake for the past 72 hrs: % Meal Taken Av.9 % Min: 0 % Max: 100 % No data recorded Pain affecting intake: No Admit Weight: 156 lb 8.4 oz (71 kg) (11/04/202102) First Weight Method (Utilize Scales): Bedscale (11/05/20 0400) Patient Vitals for the past 336 hrs: Weight Weight Method (Utilize Scales) 11/14/20 0806 129 lb 1.6 oz (58.6 kg) [facility] 11/13/20 0325 127 lb 12.8 oz (58 kg) [facility] 11/12/20 0407 128 lb 14.4 oz (58.5 kg) [facility] 11/10/20 0631 153 lb (69.4 kg) -- 11/08/20 040 151 lb 3.2 oz (68.6 kg) [facility] 11/07/20 0400 147 lb 11.2 oz (67 kg) [facility] 11/06/20 0400 142 lb 1.6 oz (64.5 kg) [facility] 11/05/20 0400 144 lb 6.4 oz (65.5 kg) [facility] 11/04/20 210 156 lb 8.4 oz (71 kg) -- No new Weight/Weight change: 32# weight down in 6 days per EHR, ?? accuracy Body mass index is 25.21 kg/m??. GI Concerns: None LABS: Recent Labs Component Name 11/14/20 0414 11/12/20 0424 11/11/20 0807 SODIUM 141 140 141 POTASSIUM 3.8 4.5 3.6 CHLORIDE 96* 92* 99 CO2 42* 38* 37* BUN 24* 22* 19 CREATININE 0.58 0.60 0.57 GLUCOSE 137* 115* 102 CALCIUM 8.9 8.9 9.0 ALT 23 32 37 ALKPHOS 61 57 68 AST 7 32 12 TBIL 0.3 0.4 0.4 TPROT 5.6* 6.4 6.0* EGFR >60 >60 >60 EGFRAFR >60 >60 >60 Recent Labs Component Name 11/07/20 0327 11/06/20 042 PHOS 3.6 2.9 Recent Labs Component Name 11/05/20 0433 HGBA1C 5.2 No results for input(s): PREALBUMIN in the last 95116 hours. Patient Vitals for the past 30 hrs: Glucose Bedside (mg/dL) 11/14/20 1331 121 mg/dL 11/13/20 2338 134 mg/dL 11/13/20 1840 301 mg/dL 11/13/20 1226 102 mg/dL PERTINENT MEDICATIONS FOR CURRENT ENCOUNTER: SCHEDULED MEDICATIONS: 0.9% NaCl injection 3 mL, Intracatheter, q8h albuterol-ipratropium (Duo-Neb) nebulizer solution 3 mL, Inhalation, q6h amitriptyline (Elavil) tablet 25 mg, Oral, QDAY budesonide-formoterol (Symbicort) 160-4.5 MCG/ACT inhaler 2 puff, Inhalation, BID busPIRone (Buspar) tablet 5 mg, Oral, BID chlorhexidine (Peridex) 0.12 % oral solution 15 mL, Mouth/Throat, BID clonazePAM (KlonoPIN) tablet 1 mg, Oral, AT BEDTIME guaiFENesin (Robitussin) solution 10 mL, Oral, q8h heparin injection 5,000 Units, Subcutaneous, BID hydroCHLOROthiazide (Hydrodiuril) tablet 12.5 mg, Oral, QDAY insulin aspart (NovoLOG) pen 0-6 Units, Subcutaneous, q6h lactulose (Chronulac) solution 20 g, Oral, TID lisinopril (Prinivil; Zestril) tablet 10 mg, Oral, QDAY metoprolol tartrate (Lopressor) tablet 25 mg, Oral, BID montelukast (Singulair) tablet 10 mg, Oral, AT BEDTIME oxyCODONE (Roxicodone Intensol) solution 10 mg, Oral, q6h polyethylene glycol 3350 (Miralax) packet 17 g, Oral, QDAY CONTINUOUS MEDICATIONS: 0.9% NaCl flush bag, Intravenous, CONTINUOUS PRN Skin/Wound: WDL Stools: Last BM (Date): 11/14/20 Stool Appearance : Formed (11/14/20 1128) Stool Amount: Small (11/14/20 1128) Nutrition Care Process (1) Nutrition Diagnostic Statement: Inadequate oral intake related to:: decreased ability to consume or tolerate food and/or fluids due to illness as evidenced by:: oral intake insufficient to meet estimated requirements Nutrition Diagnostic Statement Progress: Nutrition problem continues Nutrition Intervention: Meals and snacks:;Enteral nutrition:;Medical Food Supplements:;Collaboration with other providers Education needed: Supplements Education provided Pt educated earlier in admission Expected level of compliance: Questionable Following pt at High nutritional risk. Nutrition recommendation: agree with current nutrition order Continue with current diet Send Magic Cup BID and House Shakes once daily Recommend re weigh Pt Monitoring: PO intake ONS acceptance GI issues Labs Skin Weights Evaluation: Nutrition Goal: Total intake will meet estimated nutrient needs Nutrition Goal Timeframe: Ongoing Milana Farris RD/LALA, PhD 11/14/2020 3:56 PM Ascom [id number] * Dionne Bautista MSW - 11/14/2020 3:32 PM CDT Social Work Progress Note Discharge Plan Disposition: TBD. AR sent off for [facility] auth on 11/10/20. As of today still no word from [facility]. Patient really wanting to return home but not sure if it will be safe. Will need HH and initial 24/7care/supervison. Transportation: Transportation at discharge: Family Anticipated Discharge Date: Anticipated Discharge Date: 11/11/20 Contacts: Extended Emergency Contact Information Primary Emergency Contact: Rafy andino Mobile Relation: Son Secondary Emergency Contact: Rafy garcia Mobile Relation: Daughter *SW left VM for daughter/Jose with options: AR vs SNF vs H/HH. Comments: ADRIANNA Esparza, MPH, SERVICE ORDER EXPEDITER Extensions: [phone] * Brigid Reyes RN - 11/14/2020 3:16 PM CDT Case Management Progress Note Anticipated level of care at discharge: Acute Rehab Facility, Home Health Care Discharge Plan: HHC with 24hr supervision. Pt currently on 2L O2 with ambulation. Pt will need amb ox prior to d/c. Tried to obtain and ABG. Reattempt on 11/15 if CO2 remains elevated. Pt states that she prefers to d/c home with her spouse Mickey. CM attempted to educate pt on need for rehab. Pt declines at this time. CM has informed pt's daughter and she states that the pt has ample support and 24 hr supervision from her spouse. Acute Rehab has been notified. Basic Needs Assessment (BNA) Score: 3 Anticipated Discharge Date: Anticipated Discharge Date: 11/11/20 Transportation at Discharge: Family Transportation to MD:Family Equipment at Home: Equipment At Home: Chair-Shower;Hand Held Shower;Home O2 Additional DME needed: TBD Hunger Screening: Within the past 12 months the food we bought just didn't last and we didn't have money to get more.: Unable to assess Within the past 12 months we worried whether our food would run out before we got money to buy more: Unable to assess Medication affordability concerns: Surekha Rainey RNgenetics teacher [phone]- Please see treatment team for current CM * Irasema Russell RN - 11/14/2020 2:42 PM CDT [facility] Acute Rehab update: [facility] auth: we are still waiting on response from [facility] decision. Thanks for referral, Irasema Russell RN, BSN Clinical Liaison [facility] [phone] * Luma King, PT - 11/14/2020 1:58 PM CDT Physical Therapy Treatment Summary Chart review completed. Nursing consented for PT. Patient consented to participate in therapy. SUBJECTIVE: Patient up at bedside with bed alarm sounding upon PT arrival. Patient reports needing to use the bathroom. Patient appears confused at times, asking if this room is where the children play ball . Pain Assessment: Pain Rating Score #: 0 OBJECTIVE: Orientation Level: Oriented to Person;Disoriented to Place;Disoriented to Situation;Disoriented to Time Bed Mobility: Sit to Supine: Minimal Assistance Transfers: Sit to Stand: Stand By Assist Stand to Sit: Stand By Assist Mobility: Distance Ambulated: 15 FEET (+ 25 x 3) Ambulation: Assistive Device: Gait Belt Ambulation: Level of Assistance: Stand By Assist Ambulation: Gait Deviations: Chava - Decreased Balance: Sitting - Static: Good Sitting - Dynamic: Good Standing - Static: Good Standing - Dynamic: Fair + Activity Tolerance and O2 Requirements: Activity Tolerance: Requires rest breaks;Requires seated rest breaks;Complains of shortness of breath after standing activity/gait O2 L/M: 1.5 L/Minute O2 DEVICE: Nasal Cannula Vital Signs: SpO2: 98 % (with activity) Pulse: 94 (with activity) Patient left in bed per pt request with call light and phone within reach. Bed alarm reactivated. All lines, monitors, IV's, equipment in place and intact pre and post visit. Nursing informed about today's treatment session. Please refer to Filed Flowsheet for more detailed information. Refer to care plan for goals. ASSESSMENT: Patient demonstrates decreased safety awareness. She ambulates with SBA 15ft to bathroom + 25ft x3 (back to bed, then bed <-> bathroom again). Patient on 1.5L O2 throughout sessions, maintains SpO2 98%, however c/o SOB with ambulation. Patient refused to ambulate in halls and refused to sit in recliner stating she didn't sleep at all last night and needs to rest now. RECOMMENDATIONS/PLAN: Recommend continued PT during acute care stay and d/c home with 24 hour supervision/assist and HHPT to improve strength, balance, endurance, safety with functional mobility. If this is the last Physical Therapy visit, this note serves as the discharge summary. * Virgie Francisco OT - 11/14/2020 10:36 AM CDT Attempted to see pt for OT treatment. Unable to complete due to pt refusing to participate, stating, I've been up all night, quit it! . Pt provided education and encouragement but continues to refuse, maintaining eyes closed. Will attempt to see pt at a later time/date as schedule allows. [phone] * Luma Canela RCP - 11/14/2020 9:54 AM CDT Attempted ABG draw this am with assistance from RN, but patient very uncooperative and adamantly refusing.Luma Canela RCP 11/14/2020 9:56 AM * Alysha Max MD - 11/14/2020 6:27 AM CDT Internal Medicine Resident Progress Note Admission Date: 11/04/2020 Hospital Day: 10 Attending: Altaf Meza MD Resident/Water Valve Repairer: Drs. Max Code Status: Full Code Events since last progress note: No acute events Hospital course summary: This is a 80 y/o female with severe hearing loss, HTN,??COPD, chronic hypoxemic hypercarbic respiratory failure(home O2 3-4 L), ??moderate to severe??Pulm HTN(started on sildenafil, could not tolerate - developed leg edema), portacath in situ, falls, type lll odontoid fracture with ??fractures of the right and left posterior arches of C1,sprain of nuchal ligament and,compression deformities involving T12 and T11. ?? Presented to [facility] for hypoxia ( saturating 80s at home) and altered mental status.?? Recently?discharged from the hospital with PNA and was home for 2 days. ??She was brought to theED at [place] where her WBC was elevated, COVID rapid Ag negative, Head CT negative, CXR with perihilar infiltrates, and her PCO2>100. ??She was intubated and transferred to [facility] for further management. ??She is in a C-collar and details are limited but she apparently has a new cervical spine fracture. ? 09/10/2020 - 09/16/2020?was ??admitted at [facility] (transferred form [facility] with h/o fall and neck pain)??Type III Odontoid fracture ,was negative for orthostasis but there was significant concern for , advised to follow up with neurosurgery after 6 weeks. As per daughter patient transferred to rehab for one week, then home. ?? she was at her baseline after hospital discharge,was not discharged on abx, started having worsening sob and AMS one day prior to present at [facility]. Patient successfully extubated on 11/07. Back to baseline O2 NC at 2 lts/min. Patient overall stable. Review of Systems Constitutional: Negative for chills and fever. HENT: Negative for sore throat. Eyes: Negative for double vision. Respiratory: Negative for cough, shortness of breath and wheezing. Cardiovascular: Negative for chest pain and leg swelling. Gastrointestinal: Negative for abdominal pain, nausea and vomiting. Genitourinary: Negative for dysuria. Skin: Negative for itching and rash. All other systems reviewed and are negative. OBJECTIVE Unable to calculate weight change. Intake/Output Summary (Last 24 hours) at 11/14/2020 0628 Last data filed at 11/13/2020 1526 Gross per 24 hour Intake 240 ml Output 200 ml Net 40 ml Temp (24hrs), Av.1 ??F (36.7 ??C), Min:97.6 ??F (36.4 ??C), Max:98.9 ??F (37.2 ??C) Patient Vitals for the past 24 hrs: Temp Pulse Resp BP 11/14/20 0505 97.8 ??F (36.6 ??C) 85 20 154/79 11/14/20 0146 -- 74 16 -- 11/13/20 2338 98.1 ??F (36.7 ??C) 72 18 133/63 11/13/20 2042 -- 101 18 -- 11/13/201999 -- -- 18 -- 11/13/20 1939 98.9 ??F (37.2 ??C) 102 16 144/71 11/13/20 1553 98.2 ??F (36.8 ??C) 97 20 131/65 11/13/20 1351 -- 76 22 -- 11/13/20 1212 97.6 ??F (36.4 ??C) 94 18 138/60 11/13/20 0933 -- 74 16 -- 11/13/20 0806 97.8 ??F (36.6 ??C) 84 20 133/45 Physical Exam Vitals and nursing note reviewed. Constitutional: Appearance: Normal appearance. HENT: Head: Normocephalic. Neck: Comments: Neck collar is in place Cardiovascular: Rate and Rhythm: Normal rate. Heart sounds: No murmur heard. Pulmonary: Effort: No respiratory distress. Breath sounds: No wheezing or rales. Comments: On NC Abdominal: General: Abdomen is flat. Bowel sounds are normal. Palpations: Abdomen is soft. Tenderness: There is no abdominal tenderness. Musculoskeletal: Right lower leg: No edema. Left lower leg: No edema. Skin: General: Skin is warm. Neurological: Mental Status: She is alert. MAR reviewed: yes Antimicrobial day: 0 Labs: I have reviewed results from the last 24 hours and are remarkable for the following: Recent Labs Component Name 11/14/20 0414 11/12/2042311/11/20 0807 WBC 6.9 9.2 11.4* RBC 3.25* 2.93* 3.74* HGB 9.4* 8.6* 11.0* HCT 30.8* 27.0* 35.4* MCV 94.8 92.2 94.7 MCHC 30.5* 31.9 31.1 PLTCOUNT 226 180 251 NEUTPCT 67.0 67.0 66.5 LYMPHPCT 22.3 20.5 21.4 BASOPHILPCT 0.1 0.1 0.1 GRANSIMMPCT 0.4 0.5 0.4 NEUTABS 4.63 6.18 7.57* LYMPHABS 1.54 1.89 2.44 BASOABS 0.01 0.01 0.01 Recent Labs Component Name 11/14/20 0414 11/12/20 0424 11/11/20 0807 SODIUM 141 140 141 POTASSIUM 3.8 4.5 3.6 CHLORIDE 96* 92* 99 CO2 42* 38* 37* BUN 24* 22* 19 CREATININE 0.58 0.60 0.57 GLUCOSE 137* 115* 102 CALCIUM 8.9 8.9 9.0 ALT 23 32 37 ALKPHOS 61 57 68 AST 7 32 12 TBIL 0.3 0.4 0.4 TPROT 5.6* 6.4 6.0* EGFR >60 >60 >60 EGFRAFR >60 >60 >60 ALBUMIN 3.2 3.3 3.3 Micro: Blood culture is negative Imaging: I have reviewed imaging studies from the last 24 hours and is summarized below: XR ABDOMEN KUB Result Date: 11/06/2020 KUB. HISTORY: Dobbhoff placement. Single view of the abdomen shows feeding tube tip projected in the distal stomach. The tube may be kinked. Bowel gas pattern is unremarkable. Feeding tube in stomach. *Reading Radiologist: Jony Ray on 11/06/2020 at 12:04 PM XR ABDOMEN KUB Result Date: 11/05/2020 EXAMINATION: ABDOMEN KUB HISTORY: Dobbhoff tube placement. COMPARISON: None. FINDINGS/IMPRESSION: 1. 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 2. There is no evidence of kinking of the Dobbhoff tube. 3. A right femoral central line is in place. The bowel gas pattern is nonobstructive. The imaged lung bases are clear. Extensive costochondral calcifications are noted. *Reading Radiologist: Moises Perdomo on 11/05/2020 at 9:19 AM XR CHEST 1VW PORTABLE Result Date: 11/04/2020 Chest, one view portable DATE: 11/04/2020 at 1953 hours INDICATION: Intubation and hypoxia. FINDINGS:The endotracheal tube ends between the clavicles and tricia. The lungs are probably clear although there is questionable bilateral parahilar opacity. This may be artifactual due to patient positioning. No pneumothorax or pleural fluid collection. The heart size is probably normal but evaluation is l imited. 1. Intubated 2. Lungs probably clear *Reading Radiologist: Mahnaz More on 11/04/2020 at 8:13 PM Assessment/Clinical Reasoning/Plan Acute on chronic respiratory failure with hypoxia and hypercapnia in the setting of COPD exacerbation Hcap - status post antibiotics treatment Hypertension - continue with lisinopril, metoprolol, hydrochlorothiazide C1 type 3 odontoid fracture -Pain management with oxycodone and Tylenol Her bicarb in BMP is at 42. ABG was attempted several times by respiratory therapist and me but could not obtain. The patient is arousable today, no concern for significant CO2 retention. If CO2 is elevated tomorrow will re- attempt ABG. Continue with bronchodilators, total cast. DVT prophylaxis heparin Dispo: Acute rehab, waiting on insurance authorization D/w IM Attending Alysha Max MD Associated attestation - Altaf Arias MD - 11/14/2020 5:52 PM CDT Attending Progress Note I have seen and examined Phoebe Dawn on 11/14/[address] Max and agree with the assessment and plan. In addition I note: New Events No distress, sleepy. Physical Exam Patient Vitals for the past 6 hrs: Temp Pulse Resp BP BP Method 11/14/20 1611 97.8 ??F (36.6 ??C) 83 19 173/82 Automatic 11/14/20 1537 -- 74 19 -- -- 11/14/20 1347 -- 94 -- -- -- 11/14/20 1203 98.3 ??F (36.8 ??C) 82 20 163/83 Automatic GEN No acute distress. HEENT In C collar CHEST CTA bilaterally, no respiratory distress HEART RRR, Normal S1, S2. No murmurs/rubs/gallops. Assessment and Plan Acute on chronic respiratory failure with hypoxia and hypercapnia due to COPD exacerbation. Improved. Currently on home 3 L of O2. Continue prednisone 40 mg PO daily for 10 days total. Continue Symbicort BID. Continue montelukast. Hospital acquired pneumonia. Completed course of cefepime. Essential hypertension. Continue metoprolol 25 mg BID. Continue lisinopril 10 mg daily. Continue HCTZ 12.5 mg daily. C1 type III odontoid fracture. Maintain C collar. Neurosurgery follow up as an outpatient. DVT Ppx: heparin Disposition Medically stable for discharge to acute rehab Altaf Arias MD [facility] Hospital[facility] 11/14/2020 5:52 PM * Yanet Johnson RN - 11/14/2020 4:34 AM CDT Problem: Fall Risk Goal: Fall risk and fall related injury risk are minimized (interventions related to the fall risk can be found in the flowsheet documentation) Outcome: Progressing Problem: Oxygenation/Respiratory Function Goal: Patent airway Outcome: Progressing Problem: Oxygenation/Respiratory Function Goal: Resp rate/effort will be within specified limits Outcome: Progressing Problem: Skin Integrity Goal: Skin integrity is maintained or improved Outcome: Progressing * Yanet Johnson RN - 11/14/2020 2:44 AM CDT Pt alert x 4 with confusion and [place]. Pt had complaints of pain in neck. Rn administer Per Mar. Pt up to the bedside commode. Pt on 2 liters of oxygen and SPO2 at 99%. Pt sleeping in between care. Will continue to monitor. Call light in reach. * Vita Nagy RN - 11/13/2020 3:54 PM CDT Problem: Fall Risk Goal: Fall risk and fall related injury risk are minimized (interventions related to the fall risk can be found in the flowsheet documentation) Outcome: Progressing Note: Patient verbalizes understanding of fall risks. Patient needs re educated multiple times to call staff for assistance. Patient on bed alarm Problem: Oxygenation/Respiratory Function Goal: Patent airway Outcome: Progressing Goal: Resp rate/effort will be within specified limits Outcome: Progressing Note: Patient able to maintain above 90% on 3L while awake. Patient dose frequently destat when sleeping. Problem: Glycemia Imbalance Goal: Clinical indication of glycemia balance is achieved Outcome: Progressing Goal: Continuum of care needs are met for Glycemic Management Outcome: Progressing Problem: Skin Integrity Goal: Skin integrity is maintained or improved Outcome: Progressing Problem: Mobility Goal: STG - Patient will ambulate Description: 150 ft with least restrictive assistive device with modified independence. Outcome: Progressing Goal: STG - Patient will ascend and descend four to six stairs Description: With one handrail with supervision. Outcome: Progressing Goal: STG - Patient is independent with home exercise program. Outcome: Progressing Problem: Transfers Goal: STG - Patient to transfer to and from sit to supine Description: With modified independence. Outcome: Progressing Goal: STG - Patient will transfer sit to and from stand Description: With modified independence. Outcome: Progressing Problem: General Goal: STG(1)-Patient will Description: Complete LB dressing, AE prn, SBA Outcome: Progressing Goal: STG-Patient will Description: Complete toileting tasks and transfer, SBA Outcome: Progressing Problem: Oral Intake: Inadequate oral intake Goal: Total intake will meet estimated nutrient needs Description: Estimated Needs: KCAL: [id number](20-23 kcal/kg BW) Protein (g): 78-131 gm(1.2-2.0 gm/kg of ABW) Outcome: Progressing Note: Patient drowsy this morning, refused breakfast. Patient has good appetite for lunch and ate 100% * Brigitte Garcia MD - 11/13/2020 2:12 PM CDT Internal Medicine Resident Progress Note Admission Date: 11/04/2020 Hospital Day: 9 Attending: Dr. Arias Resident: Dr. Garcia Code Status: Full Code Events since last progress note: -no acute events overnight -remains A&Ox4, no new complains, -BM this morning -Hypertensive this morning, however improving -transferred out of TCU -awaiting rehab acceptance Hospital course summary: 80 y/o female with severe hearing loss, HTN, COPD, chronic hypoxemic hypercarbic respiratory failure(home O2 3-4 L), ??moderate to severe Pulm HTN(started on sildenafil, could not tolerate - developed leg edema), portacath in situ, falls, type lll odontoid fracture with ??fractures of the right andleft posterior arches of C1,sprain of nuchal ligament and,compression deformities involving T12 andT11. ?? Presented to [facility] for hypoxia ( saturating 80s at home) and altered mental status. Recently discharged from the hospital with PNA and was home for 2 days. ??She was brought to the EDat [place] where her WBC was elevated, COVID rapid Ag negative, Head CT negative, CXR with perihilar infiltrates, and her PCO2>100. ??She was intubated and transferred to [facility] for further management. ??She is in a C-collar and details are limited but she apparently has a new cervical spine fracture. ? 09/10/2020 - 09/16/2020?was ??admitted at [facility] (transferred form [facility] with h/o fall and neck pain)??Type III Odontoid fracture ,was negative for orthostasis but there was significant concern for , advised to follow up with neurosurgery after 6 weeks. As per daughter patient transferred to rehab for one week, then home. ?? she was at her baseline after hospital discharge,was not discharged on abx, started having worsening sob and AMS one day prior to present at [facility]. Patient successfully extubated on 11/07. Back to baseline O2 NC at 2 lts/min. Patient overall stable. Transferred to TCU. Review of Systems Unable to perform ROS: Other Constitutional: Negative for chills and fever. Pt has severe bilateral hearing loss HENT: Positive for hearing loss. Neck brace Eyes: Positive for discharge and redness. Respiratory: Positive for cough and wheezing. Negative for sputum production and shortness of breath. Cardiovascular: Negative for chest pain and palpitations. Gastrointestinal: Negative for abdominal pain, constipation, diarrhea, nausea and vomiting. Musculoskeletal: Negative for back pain and joint pain. Neurological: Negative for dizziness. Psychiatric/Behavioral: Negative for depression and suicidal ideas. OBJECTIVE -1 lb 1.6 oz Intake/Output Summary (Last 24 hours) at 11/13/2020 1412 Last data filed at 11/13/2020 0703 Gross per 24 hour Intake 730 ml Output 700 ml Net 30 ml Temp (24hrs), Av.2 ??F (36.8 ??C), Min:97.6 ??F (36.4 ??C), Max:98.7 ??F (37.1 ??C) Patient Vitals for the past 24 hrs: Temp Pulse Resp BP 11/13/20 1351 -- 76 22 -- 11/13/20 1212 97.6 ??F (36.4 ??C) 94 18 138/60 11/13/20 0933 -- 74 16 -- 11/13/20 0806 97.8 ??F (36.6 ??C) 84 20 133/45 11/13/20 0319 98.3 ??F (36.8 ??C) 96 20 153/73 11/12/20 2312 98.6 ??F (37 ??C) 88 18 127/68 11/12/20 1952 -- 105 19 -- 11/12/20 1924 98.7 ??F (37.1 ??C) (!) 110 24 156/81 11/12/20 1520 98.4 ??F (36.9 ??C) 109 26 142/65 Physical Exam Constitutional: Appearance: She is ill-appearing. HENT: Nose: Comments: NGT Eyes: Conjunctiva/sclera: Conjunctivae normal. Neck: Comments: Neck brace Cardiovascular: Rate and Rhythm: Normal rate and regular rhythm. Heart sounds: Normal heart sounds. No friction rub. No gallop. No S3 or S4 sounds. Pulmonary: Effort: Prolonged expiration and respiratory distress present. Breath sounds: Decreased air movement present. Examination of the right-upper field reveals decreased breath sounds. Examination of the left-upper field reveals decreased breath sounds. Examination of the right-middle field reveals decreased breath sounds. Examination of the left-middle field reveals decreased breath sounds. Examination of the right-lower field reveals decreased breath sounds. Examination of the left-lower field reveals decreased breath sounds and rales. Decreased breath soundsand rales present. Abdominal: General: There is no distension. Palpations: There is no mass. Musculoskeletal: Right lower le+ Edema present. Left lower le+ Edema present. Neurological: General: No focal deficit present. Mental Status: She is oriented to person, place, and time. MAR reviewed: yes Antimicrobial day: Completed antibiotic treatment Labs: I have reviewed results from the last 24 hours and are remarkable for the following: hypokalemia Micro: none Imaging: I have reviewed imaging studies from the last 24 hours and is summarized below: No new imaging Assessment/Clinical Reasoning/Plan # Acute on chronic Hypoxemic hypercapnic respiratory failure 2/2 to COPD exacerbation # Septic shock 2/2 to HCAP -completed antibioitc tx. 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 Plan: -monitor vital signs every 4 hrs -maintain 02 saturation ranges 88-94% -continue with prednisone PO -duonebs -metoprolol -lisinopril -insulin correctional scale -DVT prophylaxis -dc famotidine -fall precautions -start cardiac diet -Physical therapy in am Dispo: pending acute rehab acceptance D/w IM Attending Brigitte Garcia MD Due to medical issues in the assessment and plan, continued hospitalization will be required. * Altaf Arias MD - 11/13/2020 1:20 PM CDT Attending Progress Note I have seen and examined Phoebe Dawn on 11/13/[address] Garcia and agree with the assessment and plan. In addition I note: New Events Not wanting to talk to me. She said so away Physical Exam Patient Vitals for the past 6 hrs: Temp Pulse Resp BP BP Method 11/13/20 1212 97.6 ??F (36.4 ??C) 94 18 138/60 Automatic 11/13/20 0933 -- 74 16 -- -- 11/13/20 0806 97.8 ??F (36.6 ??C) 84 20 133/45 Automatic GEN No acute distress. HEENT In C collar CHEST CTA bilaterally, no respiratory distress HEART RRR, Normal S1, S2. No murmurs/rubs/gallops. Assessment and Plan 1. Acute on chronic respiratory failure with hypoxia and hypercapnia due to COPD exacerbation. Improved. Currently on home 3 L of O2. Continue prednisone 40 mg PO daily for 10 days total. Continue Symbicort BID. Continue montelukast. 2. Hospital acquired pneumonia. Completed course of cefepime. 3. Essential hypertension. Continue metoprolol 25 mg BID. 4. C1 type III odontoid fracture. Maintain C collar. Neurosurgery follow up as an outpatient. DVT Ppx: heparin Disposition Medically stable for discharge to acute rehab Altaf Arias MD [facility] Hospitalist 11/13/2020 1:21 PM * Carla Rivera RN - 11/13/2020 9:00 AM CDT Pt transferred to room 364 by bed with personal belongings. Report given to JUAN Gorman. Vital signs stable. When pt sleeping oxygen saturation drops to 80's, when aroused increased to mid90's. Tele box transferred with patient and tech notified of transfer. * Zac Waller - 11/13/2020 7:03 AM CDT Shift Summary- Last VS: BP 153/73 Pulse 96 Temp 98.3 ??F (36.8 ??C) (Oral) Resp 20 Ht 1.524 m (5') Wt 58 kg (127 lb 12.8 oz) SpO2 95% BMI 24.96 kg/m2 Pain: Patinet c/o pain to neck that is controled with scheduled oxycodone. Neuro: A&Ox4. Calm and impulsive at times. [place]. Cardiac: SR/ST rates between 90 to 120 with occasional PAC's. BP stable with the MAP >65. No edema. Respiratory: Diminished lung sounds on 3 L of O2 via NC. SpO2 above 90%. GI/: Active BS no BM this shift. Voiding per BSC with SBA. Urine output as charted. Call light and personal belongings within reach. Bed locked and in low position. * Zac Waller - 11/12/2020 9:20 PM CDT Problem: Fall Risk Goal: Fall risk and fall related injury risk are minimized (interventions related to the fall risk can be found in the flowsheet documentation) Outcome: Progressing Ms. Dawn will remain free from fall and fall related injuries throughout shift by continuously implementing fall precautions, keeping bed in low position and locked, call light in reach, checkingon pt Q2 and PRN. Problem: Oxygenation/Respiratory Function Goal: Resp rate/effort will be within specified limits Outcome: Progressing Ms. Dawn will maintain a respiratory rate and effort within specified limits this shift. Will continue to assess respiratory rate, lung sounds and SpO2 q4hrs and PRN. Problem: Skin Integrity Goal: Skin integrity is maintained or improved Outcome: Progressing Ms. Dawn will be turned Q2 hour for skin care and comfort this shift. Heels elevated off of bedthis shift. * Carla Rivera RN - 11/12/2020 5:05 PM CDT Shift Summary: Last VS/WT BP 142/65 Pulse 109 Temp 98.4 ??F (36.9 ??C) (Oral) Resp 26 Ht 1.524 m (5') Wt 58.5 kg (128 lb 14.4 oz) SpO2 99% BMI 25.17 kg/m2 Neuro/Psych A&Ox4, calm, impulsive, [place] Pain Neck pain controlled with scheduled Roxicodone. C-Collar in place. Telemetry Rhythm overall regular with occasional PAC's. SR/ST 80-120's Hemodynamics/Cardiac Pulses 2/2. No edema. Denies chest pain. Respiratory Breath sounds with bilateral lower fine crackles/diminished. Dyspneic with exertion. Oxygen saturation 90% and greater on 3 liters NC (at baseline per home oxygen requirements). GI/ Abdomen soft, non-distended, non-tender, active bowel sounds. Regular diet. No N/V. Several loose BM's today. Voiding without difficulty per toilet. IV/Drains LFA #20 and LW #20 saline locks intact, no s/s infection Skin Skin intact Mobility Up with SBA x 1, up to chair today Tests/Procedures N/A Communication with Team/Family No family present. Pt spoke with daughter on phone today. Precautions Fall Safe set up has been verified. * Brigitte Garcia MD - 11/12/2020 1:12 PM CDT Internal Medicine Resident Progress Note Admission Date: 11/04/2020 Hospital Day: 8 Attending: Dr. Arias Resident: Dr. Garcia Code Status: Full Code Events since last progress note: -no acute events overnight -remains A&Ox4, no new complains, hearing loss -BM this morning -Hypertensive this morning, however improving -awaiting rehab acceptance Hospital course summary: 80 y/o female with a h/o HTN, COPD, chronic hypoxemic hypercarbic respiratory failure(home O2 3-4 L), ??moderate to severe Pulm HTN(started on sildenafil, could not tolerate - developed leg edema), portacath in situ, falls, type lll odontoid fracture with ??fractures of the right and left posteriorarches of C1,sprain of nuchal ligament and,compression deformities involving T12 and T11. ?? Presented to [facility] for hypoxia ( saturating 80s at home) and altered mental status. Recently discharged from the hospital with PNA and was home for 2 days. ??She was brought to the EDat [place] where her WBC was elevated, COVID rapid Ag negative, Head CT negative, CXR with perihilar infiltrates, and her PCO2>100. ??She was intubated and transferred to [place] ICU for further management. ??She is in a C-collar and details are limited but she apparently has a new cervical spine fracture. ? 09/10/2020 - 09/16/2020?was ??admitted at [facility] (transferred form [facility] with h/o fall and neck pain)??Type III Odontoid fracture ,was negative for orthostasis but there was significant concern for , advised to follow up with neurosurgery after 6 weeks. As per daughter patient transferred to rehab for one week, then home. ?? she was at her baseline after hospital discharge,was not discharged on abx, started having worsening sob and AMS one day prior to present at [facility]. Patient successfully extubated on 11/07. Back to baseline O2 NC at 2 lts/min. Patient overall stable. Transferred to TCU. Review of Systems Unable to perform ROS: Other Constitutional: Negative for chills and fever. Pt has severe bilateral hearing loss HENT: Positive for hearing loss. Neck brace Eyes: Positive for discharge and redness. Respiratory: Positive for cough and wheezing. Negative for sputum production and shortness of breath. Cardiovascular: Negative for chest pain and palpitations. Gastrointestinal: Negative for abdominal pain, constipation, diarrhea, nausea and vomiting. Musculoskeletal: Negative for back pain and joint pain. Neurological: Negative for dizziness. Psychiatric/Behavioral: Negative for depression and suicidal ideas. OBJECTIVE Unable to calculate weight change. Intake/Output Summary (Last 24 hours) at 11/12/2020 1312 Last data filed at 11/12/2020 0841 Gross per 24 hour Intake 870 ml Output 275 ml Net 595 ml Temp (24hrs), Av.4 ??F (36.9 ??C), Min:98.1 ??F (36.7 ??C), Max:98.7 ??F (37.1 ??C) Patient Vitals for the past 24 hrs: Temp Pulse Resp BP 11/12/20 1159 98.5 ??F (36.9 ??C) 89 21 146/66 11/12/20 1012 -- 102 -- -- 11/12/20 0807 98.7 ??F (37.1 ??C) 105 24 154/64 11/12/20 0745 -- 80 21 -- 11/12/20 0407 98.2 ??F (36.8 ??C) 86 22 151/71 11/12/20 0100 -- 84 18 -- 11/11/20 2348 98.1 ??F (36.7 ??C) 83 19 142/74 11/11/20 2206 -- 105 22 139/66 11/11/20 1936 98.5 ??F (36.9 ??C) (!) 120 22 144/74 11/11/20 1921 -- (!) 112 18 -- 11/11/20 1606 98.4 ??F (36.9 ??C) (!) 120 19 149/80 11/11/20 1430 -- 103 22 -- Physical Exam Constitutional: Appearance: She is ill-appearing. HENT: Nose: Comments: NGT Eyes: Conjunctiva/sclera: Conjunctivae normal. Neck: Comments: Neck brace Cardiovascular: Rate and Rhythm: Normal rate and regular rhythm. Heart sounds: Normal heart sounds. No friction rub. No gallop. No S3 or S4 sounds. Pulmonary: Effort: Prolonged expiration and respiratory distress present. Breath sounds: Decreased air movement present. Examination of the right-upper field reveals decreased breath sounds. Examination of the left-upper field reveals decreased breath sounds. Examination of the right-middle field reveals decreased breath sounds. Examination of the left-middle field reveals decreased breath sounds. Examination of the right-lower field reveals decreased breath sounds. Examination of the left-lower field reveals decreased breath sounds and rales. Decreased breath soundsand rales present. Abdominal: General: There is no distension. Palpations: There is no mass. Musculoskeletal: Right lower le+ Edema present. Left lower le+ Edema present. Neurological: General: No focal deficit present. Mental Status: She is oriented to person, place, and time. 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 Plan: -monitor vital signs every 4 hrs -maintain 02 saturation ranges 88-94% -continue with prednisone PO -duonebs -metoprolol -lisinopril -insulin correctional scale -DVT prophylaxis -dc famotidine -fall precautions -start cardiac diet -Physical therapy in am Dispo: pending acute rehab acceptance D/w IM Attending Brigitte Garcia MD Due to medical issues in the assessment and plan, continued hospitalization will be required. * Altaf Arias MD - 11/12/2020 12:56 PM CDT Attending Progress Note I have seen and examined Phoebe Dawn on 11/12/[address] Garcia and agree with the assessment and plan. In addition I note: New Events Feeling well Minimal pain today Physical Exam Patient Vitals for the past 6 hrs: Temp Pulse Resp BP BP Method 11/12/20 1159 98.5 ??F (36.9 ??C) 89 21 146/66 Automatic 11/12/20 1012 -- 102 -- -- -- 11/12/20 0807 98.7 ??F (37.1 ??C) 105 24 154/64 Automatic 11/12/20 0745 -- 80 21 -- -- GEN No acute distress. HEENT In C collar CHEST CTA bilaterally, no respiratory distress HEART RRR, Normal S1, S2. No murmurs/rubs/gallops. NEURO Alert, oriented x 3, appropriately interactive. Reviewed labs Assessment and Plan 1. Acute on chronic respiratory failure with hypoxia and hypercapnia due to COPD exacerbation. Improved. Currently on home 3 L of O2. Continue prednisone 40 mg PO daily for 10 days total. Continue Symbicort BID. Continue montelukast. 2. Hospital acquired pneumonia. Completed course of cefepime. 3. Essential hypertension. Continue metoprolol 25 mg BID. 4. C1 type III odontoid fracture. Maintain C collar. Neurosurgery follow up as an outpatient. DVT Ppx: heparin Disposition Medically stable for discharge to acute rehab Altaf Arias MD [facility] Hospitalist 11/12/2020 12:56 PM * Phoebe Cabral, PT - 11/12/2020 10:16 AM CDT Physical Therapy Treatment Summary Chart review completed. Nursing consented for PT. Explained purpose of PT and patient consented to participate in therapy. PPE worn by staff: gloves;mask - surgical;eye protection SUBJECTIVE: Patient sitting on the commode at the start of treatment. Patient attempting to have a bowel movement. Patient's Goal for the Day: Not stated OBJECTIVE: Precautions: [place] J collar 2/2 odontoid fx. Bed Mobility: Supine to Sit: Modified Dickens Sit to Supine: Modified Dickens Transfers: Sit to Stand: Modified Dickens Stand to Sit: Modified Dickens Bed to Chair: Stand By Assist Type of Transfer: Stand Pivot Transfer Toilet Transfers: Stand By Assist Mobility: Distance Ambulated: 20 FEET Ambulation: Assistive Device: Gait Belt Ambulation: Level of Assistance: Stand By Assist Ambulation: Gait Deviations: Chava - Decreased Balance: Sitting - Static: Good Sitting - Dynamic: Good Standing - Static: Good - Standing - Dynamic: Fair + Activity Tolerance and O2 Requirements: O2 L/M: 3 L/Minute O2 DEVICE: Nasal Cannula Vital Signs: SpO2: 96 % Pulse: 102 ASSESSMENT: Patient successfully had a bowel movement, was able to complete her own micheline-care. She ambulated to the bathroom without the wheeled walker and stand by assist from therapist. After washing her hands, she ambulated a short distance in her room, but then refused to ambulate in the hallway. Patient adamantly transferred back to the bed and refused to sit in the recliner as well despite encouragement from therapist. Call light and phone in reach with alarm activated. All lines, monitors, IV's, equipment in place and intact pre and post visit. RN, notified of patient's performance/location end of session. Pt educated in PT plan of care, fall precautions, and benefits of OOB activity. Please refer to the Filed Flowsheet for further details. Refer to Plan of Care for PT goals. RECOMMENDATIONS/PLAN: Continue with skilled PT in the home health setting with / supervision. If this is the last Physical Therapy visit, this note serves as the discharge summary. [email or web address] [phone] * Carla Rivera RN - 11/12/2020 9:14 AM CDT Problem: Fall Risk Goal: Fall risk and fall related injury risk are minimized (interventions related to the fall risk can be found in the flowsheet documentation) Note: Ms. Mcginnis will remain free from falls this shift, she is impulsive and does not call for assist before getting out of bed, bed/chair alarms utilized, non-skid socks in place, call light within reach, re-educated with every interaction to call for assist. Problem: Oxygenation/Respiratory Function Goal: Resp rate/effort will be within specified limits Flowsheets (Taken 11/12/2020 0807) Resp: 24 SpO2: 97 % Note: Ms. Mcginnis oxygen saturation will remain 90% and greater on 3 liters nc this shift per herbaseline at home. * Agatha Benson RN - 11/12/2020 4:19 AM CDT Patient will remain free of falls, will improve use of call light, will gain adequate rest, will remain pain free with current scheduled medications, will keep C-collar in place and stable * Tabitha Sims RN - 11/11/2020 8:40 PM CDT Shift Summary Last VS/WT: BP 149/80 Pulse 120 Temp 98.4 ??F (36.9 ??C) (Oral) Resp 19 Ht 1.524 m (5') Wt 69.4 kg (153 lb) SpO2 96% BMI 29.88 kg/m2 Pain: Pt c/o pain in her legs that resolved with scheduled pain medications. Neuro/Psych: Pt was AxO x4, calm and reluctantly cooperative. Pt is impulsive and will get up without using call light. Pt also is extremely hard of hearing and has difficulty using call light because she cannot hear when RNs answer. Cardiac: HR SR-ST 60-100s. BP stable. No edema. Respiratory: LS clear but diminished on 3 L/min O2 per NC. No cough. GI: BS active x4, multiple BMs today as charted in the flowsheets. Fair appetite and diet intake. : Voiding per BSC or toilet. Adequate urine output. Skin: no issues Lines/Drains/Fluids: L FA IV x2 - WDL, both saline locked Other: Pt transferred to TCU at approx. 1125. Bed locked and low. Call light within reach. Report given to oncoming RN. Tabitha Guy. JUAN Sims 11/11/2020 8:40 PM * Tabitha Sims RN - 11/11/2020 6:40 PM CDT Problem: Fall Risk Goal: Fall risk and fall related injury risk are minimized (interventions related to the fall risk can be found in the flowsheet documentation) Outcome: Progressing Note: Ms. Dawn will minimize her fall risk and prevent fall related injury. Ms. Dawn continues to work towards minimizing her fall risk and preventing fall related injury. Bed locked and low,bedrails up x2-3, chair locked, bed and chair alarm on respectively, non-slip socks in place, call light and personal items within reach, safe room setup verified, pt instructed to use call light forassisstance and continues to be reeducated on use with each interaction. Problem: Oxygenation/Respiratory Function Goal: Resp rate/effort will be within specified limits Outcome: Progressing Flowsheets (Taken 11/11/2020 1606 by Jacinda Klein, JUAN) Resp: 19 SpO2: 96 % Note: Ms. Dawn will have a respiratory rate and effort within normal limits. Ms. Dawn continues to work towards a respiratory rate and effort within normal limits. Lung sounds, oxygenation status, and vital signs assessed q4h and PRN as charted. Medications administered as documented in theMAR to improve respiratory status. Telemetry and pulse oximetry monitored and maintained, supplemental oxygen applied and maintained. Problem: Glycemia Imbalance Goal: Clinical indication of glycemia balance is achieved Outcome: Progressing Note: Ms. Dawn will achieve glycemic balance. Ms. Dawn continues to work towards achieving glycemic balance. Blood sugar checked prior to each meal, insulin administered as documented in the MAR. * Dionne Bautista MSW - 11/11/2020 4:50 PM CDT SOCIAL WORK SATURDAY NOTE Problem: Discharge Planning Goal: Patient's Continuum of Care Needs are met Outcome: Ongoing Anticipated Discharge Plan: plan is to transition to our [facility]. Awaiting answer from [facility] auth. If falls thru will need to look into SNF or going home/HH. SW will f/u with family on Saturday for SNF's. Transportation: TBD Anticipated Discharge Date/Time: TBD Contacts: Extended Emergency Contact Information Primary Emergency Contact: Jenn andinochum Mobile Relation: Son Secondary Emergency Contact: Rafy garcia Mobile Relation: Daughter Comments: Dionne RODAS, MPH, SERVICE [employer]ER Extensions: [phone] * Muriel Spring RN - 11/11/2020 3:33 PM CDT Case Management Progress Note Anticipated level of care at discharge: Acute Rehab Facility, Home Health Care Discharge Plan: acute rehab pending [facility] auth vs home with HHC. Insurance auth from [facility] pending per Irasema with acute rehab. Basic Needs Assessment (BNA) Score: 3 Anticipated Discharge Date: Anticipated Discharge Date: 04/09/21 pending insurance auth) Transportation at Discharge: Family Transportation to MD:Family Equipment at Home: Equipment At Home: Chair-Shower;Hand Held Shower;Home O2 Additional DME needed: None determined Hunger Screening: Within the past 12 months the food we bought just didn't last and we didn't have money to get more.: Unable to assess Within the past 12 months we worried whether our food would run out before we got money to buy more: Unable to assess Medication affordability concerns: [place]: Muriel Spring RN * Brigitte Garcia MD - 11/11/2020 1:34 PM CDT Internal Medicine Resident Progress Note Admission Date: 11/04/2020 Hospital Day: 7 Attending: Dr. Arias Resident: Dr. Garcia Code Status: Full Code Events since last progress note: -no acute events overnight -remains A&Ox4, no new complains, hearing loss -BM this morning -Hypertensive this morning -transfer out of ICU -remove Dobbhoff, start PO medications Hospital course summary: 80 y/o female with a h/o HTN, COPD, chronic hypoxemic hypercarbic respiratory failure(home O2 3-4 L), ??moderate to severe Pulm HTN(started on sildenafil, could not tolerate - developed leg edema), portacath in situ, falls, type lll odontoid fracture with ??fractures of the right and left posteriorarches of C1,sprain of nuchal ligament and,compression deformities involving T12 and T11. ?? Presented to [facility] for hypoxia ( saturating 80s at home) and altered mental status. Recently discharged from the hospital with PNA and was home for 2 days. ??She was brought to the EDat [place] where her WBC was elevated, COVID rapid Ag negative, Head CT negative, CXR with perihilar infiltrates, and her PCO2>100. ??She was intubated and transferred to [facility] for further management. ??She is in a C-collar and details are limited but she apparently has a new cervical spine fracture. ? 09/10/2020 - 09/16/2020?was ??admitted at [facility] (transferred form [facility] with h/o fall and neck pain)??Type III Odontoid fracture ,was negative for orthostasis but there was significant concern for , advised to follow up with neurosurgery after 6 weeks. As per daughter patient transferred to rehab for one week, then home. ?? she was at her baseline after hospital discharge,was not discharged on abx, started having worsening sob and AMS one day prior to present at [facility]. Patient successfully extubated on 11/07. Back to baseline O2 NC at 2 lts/min. Patient overall stable. Transferred to TCU. Review of Systems Unable to perform ROS: Other Constitutional: Negative for chills and fever. Pt has severe bilateral hearing loss HENT: Positive for hearing loss. Neck brace Eyes: Positive for discharge and redness. Respiratory: Positive for cough and wheezing. Negative for sputum production and shortness of breath. Cardiovascular: Negative for chest pain and palpitations. Gastrointestinal: Negative for abdominal pain, constipation, diarrhea, nausea and vomiting. Musculoskeletal: Negative for back pain and joint pain. Neurological: Negative for dizziness. Psychiatric/Behavioral: Negative for depression and suicidal ideas. OBJECTIVE Unable to calculate weight change. Intake/Output Summary (Last 24 hours) at 11/11/2020 1335 Last data filed at 11/11/2020 1251 Gross per 24 hour Intake 300 ml Output 1500 ml Net -1200 ml Temp (24hrs), Av.2 ??F (36.8 ??C), Min:97.8 ??F (36.6 ??C), Max:98.7 ??F (37.1 ??C) Patient Vitals for the past 24 hrs: Temp Pulse Resp BP 11/11/20 1127 98.7 ??F (37.1 ??C) 78 21 133/86 11/11/20 1000 -- 75 21 140/65 11/11/20 0900 -- 80 20 154/68 11/11/20 0800 98.1 ??F (36.7 ??C) 86 18 169/75 11/11/20 0600 -- 77 19 -- 11/11/20 0500 -- 88 20 154/60 11/11/20 0400 98.4 ??F (36.9 ??C) 91 21 166/87 11/11/20 0300 -- 83 15 164/62 11/11/20 0200 -- 69 18 123/52 11/11/20 0000 98.2 ??F (36.8 ??C) 68 17 146/72 11/10/20 2300 -- 80 19 159/74 11/10/20 2200 -- 92 (!) 35 154/89 11/10/20 2100 -- 81 19 127/53 11/10/20 2044 -- 104 18 -- 11/10/20 2000 98.2 ??F (36.8 ??C) 95 20 131/61 11/10/20 1900 -- (!) 117 20 173/94 11/10/20 1830 -- 99 19 -- 11/10/20 1800 -- 76 16 134/74 11/10/20 1615 97.8 ??F (36.6 ??C) 89 19 -- 11/10/20 1600 -- 85 21 160/68 11/10/20 1438 -- 68 17 -- 11/10/20 1415 -- 81 17 -- 11/10/20 1400 -- 84 17 -- Physical Exam Constitutional: Appearance: She is ill-appearing. HENT: Nose: Comments: NGT Eyes: Conjunctiva/sclera: Conjunctivae normal. Neck: Comments: Neck brace Cardiovascular: Rate and Rhythm: Normal rate and regular rhythm. Heart sounds: Normal heart sounds. No friction rub. No gallop. No S3 or S4 sounds. Pulmonary: Effort: Prolonged expiration and respiratory distress present. Breath sounds: Decreased air movement present. Examination of the right-upper field reveals decreased breath sounds. Examination of the left-upper field reveals decreased breath sounds. Examination of the right-middle field reveals decreased breath sounds. Examination of the left-middle field reveals decreased breath sounds. Examination of the right-lower field reveals decreased breath sounds. Examination of the left-lower field reveals decreased breath sounds and rales. Decreased breath soundsand rales present. Abdominal: General: There is no distension. Palpations: There is no mass. Musculoskeletal: Right lower le+ Edema present. Left lower le+ Edema present. Neurological: General: No focal deficit present. Mental Status: She is oriented to person, place, and time. 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 Plan: -monitor vital signs every 4 hrs -maintain 02 saturation ranges 88-94% -continue with prednisone PO -duonebs -metoprolol -lisinopril -insulin correctional scale -DVT prophylaxis -dc famotidine -fall precautions -start cardiac diet -Physical therapy in am Dispo: pending acute rehab acceptance D/w IM Attending Brigitte Garcia MD Due to medical issues in the assessment and plan, continued hospitalization will be required. * Altaf Arias MD - 11/11/2020 12:51 PM CDT Attending Progress Note I have seen and examined Phoebe Dawn on 11/11/[address] Garcia and agree with the assessment and plan. In addition I note: New Events No shortness of breath Some neck pain, but not worse today Physical Exam Patient Vitals for the past 6 hrs: Temp Pulse Resp BP BP Method 11/11/20 1127 98.7 ??F (37.1 ??C) 78 21 133/86 Automatic 11/11/20 1000 -- 75 21 140/65 -- 11/11/20 0900 -- 80 20 154/68 -- 11/11/20 0800 98.1 ??F (36.7 ??C) 86 18 169/75 -- GEN No acute distress. HEENT In C collar CHEST CTA bilaterally, no respiratory distress HEART RRR, Normal S1, S2. No murmurs/rubs/gallops. NEURO Alert, oriented x 3, appropriately interactive. Reviewed labs Hypokalemic Assessment and Plan 1. Acute on chronic respiratory failure with hypoxia and hypercapnia due to COPD exacerbation. Improved. Currently on home 3 L of O2. Continue prednisone 40 mg PO daily for 10 days total. Continue Symbicort BID. Continue montelukast. 2. Hospital acquired pneumonia. Completed course of cefepime. 3. Essential hypertension. Continue metoprolol 25 mg BID. 4. C1 type III odontoid fracture. Maintain C collar. Neurosurgery follow up as an outpatient. DVT Ppx: heparin Disposition Medically stable for discharge to acute rehab Altaf Arias MD [facility] Hospitalist 11/11/2020 12:52 PM * Twan Cm - 11/11/2020 12:01 PM CDT Internal Medicine Progress Note Admission Date: 11/04/2020 Hospital Day: 7 Attending: Dr. Arias Resident/Water Valve Repairer: Dr. Garcia Code Status: Full Events since last progress note: - some episodes of tachypnea overnight, hypertensive in the morning - no acute events - reduced to 2 L NC from 3L - day 03/14 prednisone course Hospital course summary: Phoebe Dawn is a 80 year old female with PMHx of COPD w/ chronic hypoxemic hypercapnic respiratory failure (3L O2 NC), moderate to severe pulm HTN (started on sildenafil, could not tolerate due toleg edema), portacath in situ, falls, type III odontoid fracture with fractures of the right and left posterior arches of C1, sprain of nuchal ligament and compression deformities involving T11 and T12. She had recently been discharged from the hospital with PNA and was home for 2 days where she developed hypoxemia and altered mental status. She presented to [facility] saturating in 80s, leukocytosis, COVID negative, head CT negative, CXR perihilar infiltrates with PCO2>100. [facility]. Exintuated on 11/08. Pt back on baseline 3 L NC currently and was given NGT due to reduced appetite and aspiration risk. Review of Systems Unable to perform ROS: Other Constitutional: Negative for chills and fever. Pt has severe bilateral hearing loss HENT: Positive for hearing loss. Neck brace Eyes: Positive for discharge and redness. Respiratory: Positive for cough and wheezing. Negative for sputum production and shortness of breath. Cardiovascular: Negative for chest pain and palpitations. Gastrointestinal: Negative for abdominal pain, constipation, diarrhea, nausea and vomiting. OBJECTIVE Unable to calculate weight change. Intake/Output Summary (Last 24 hours) at 11/11/2020 1202 Last data filed at 11/11/2020 1127 Gross per 24 hour Intake 350 ml Output 1300 ml Net -950 ml Temp (24hrs), Av.2 ??F (36.8 ??C), Min:97.8 ??F (36.6 ??C), Max:98.7 ??F (37.1 ??C) Patient Vitals for the past 24 hrs: Temp Pulse Resp BP 11/11/20 1127 98.7 ??F (37.1 ??C) 78 21 133/86 11/11/20 1000 -- 75 21 140/65 11/11/20 0900 -- 80 20 154/68 11/11/20 0800 98.1 ??F (36.7 ??C) 86 18 169/75 11/11/20 0600 -- 77 19 -- 11/11/20 0500 -- 88 20 154/60 11/11/20 0400 98.4 ??F (36.9 ??C) 91 21 166/87 11/11/20 0300 -- 83 15 164/62 11/11/20 0200 -- 69 18 123/52 11/11/20 0000 98.2 ??F (36.8 ??C) 68 17 146/72 11/10/20 2300 -- 80 19 159/74 11/10/20 2200 -- 92 (!) 35 154/89 11/10/20 2100 -- 81 19 127/53 11/10/20 2044 -- 104 18 -- 11/10/20 2000 98.2 ??F (36.8 ??C) 95 20 131/61 11/10/20 1900 -- (!) 117 20 173/94 11/10/20 1830 -- 99 19 -- 11/10/20 1800 -- 76 16 134/74 11/10/20 1615 97.8 ??F (36.6 ??C) 89 19 -- 11/10/20 1600 -- 85 21 160/68 11/10/20 1438 -- 68 17 -- 11/10/20 1415 -- 81 17 -- 11/10/20 1400 -- 84 17 -- Physical Exam Constitutional: Appearance: She is ill-appearing. HENT: Nose: Comments: NGT Neck: Comments: Neck brace Cardiovascular: Rate and Rhythm: Normal rate and regular rhythm. Heart sounds: Normal heart sounds. No friction rub. No gallop. No S3 or S4 sounds. Pulmonary: Effort: Prolonged expiration and respiratory distress present. Breath sounds: Decreased air movement present. Examination of the right-upper field reveals decreased breath sounds. Examination of the left-upper field reveals decreased breath sounds. Examination of the right-middle field reveals decreased breath sounds. Examination of the left-middle field reveals decreased breath sounds. Examination of the right-lower field reveals decreased breath sounds. Examination of the left-lower field reveals decreased breath sounds and rales. Decreased breath soundsand rales present. Musculoskeletal: Right lower le+ Edema present. Left lower le+ Edema present. Labs: Recent Labs Component Name 11/11/20 0807 11/10/20 0611/09/20 0526 WBC 11.4* 11.9* 11.3* HGB 11.0* 10.1* 10.2* HCT 35.4* 32.4* 33.6* MCV 94.7 92.6 96.3 No results for input(s): PT, INR, PTT in the last 59665 hours. Recent Labs Component Name 11/11/20 0807 11/10/20 0611/09/20 0526 SODIUM 141 142 144 POTASSIUM 3.6 2.9* 4.8 CHLORIDE 99 99 97* CO2 37* 40* 43* BUN 19 21* 27* CREATININE 0.57 0.53* 0.62 GLUCOSE 102 97 135* Recent Labs Component Name 11/11/20 0807 11/10/20 0600 11/09/20 0526 CALCIUM 9.0 8.8 9.1 MAGNESIUM 1.9 2.0 2.2 Recent Labs Component Name 11/11/20 0807 11/10/20 0600 11/09/20 0526 ALKPHOS 68 64 68 AST 12 15 22 ALT 37 53 86* Recent Labs Component Name 11/05/20 0801 TROPONINI <0.010 Micro: Microbiology Results (Displays last 21 days for this encounter ONLY) Procedure Component Value - Date/Time CULTURE MRSA [[id number]] (Normal) Collected: 11/05/20 1154 Lab Status: Final result Specimen: Microbiology from Nasal Updated: 11/07/20 0640 Culture Negative for methicillin-resistant Staphylococcus aureus (MRSA) SARS-COV-2 (COVID-19) IN HOUSE [[id number]] (Normal) Collected: 11/05/20 0840 Lab Status: Final result Specimen: Microbiology from Nasopharyngeal Updated: 11/05/20 1404 COVID-19 PCR Not detected Narrative: This nucleic acid amplification assay performance was validated by [facility]. This test has been authorized by the Food and Drug administration (FDA)under an Emergency??Use Authorization (EUA). This test has been validated in accordance withthe FDA's guidance document Policy for Diagnostic Testing in Laboratories Certified to perform High Complexity Testing under CLIA prior to Emergency Use Authorization for Coronavirus Disease-2019 during the Public Health Emergency issued on October 03, 2019. FDA independent review of this validation is pending. This test is only authorized for the duration of time the declaration that circums tances exist justifying the authorization of emergency use of in vitro diagnostic tests for detection of SARS-CoV-2 virus and/or diagnosis of COVID-19 infection under section 564(b)(1) of the Act, 21U.S.C 360bbb-3 (b)(1), unless the authorization is terminated or revoked sooner. Fact Sheets for this EUA assay are available upon request. CULTURE SPUTUM+GRAM STAIN [[id number]] Collected: 11/04/209 Lab Status: Final result Specimen: Microbiology from Sputum Updated: 11/07/20 0746 Culture No growth Gram Stain <10 per low power field Squamous epithelial cells <10 per low power field Polymorphonuclear cells No organisms seen CULTURE BLOOD [[id number]] Collected: 11/04/202218 Lab Status: Final result Specimen: Blood Peripheral Updated: 11/10/20 0142 Culture No growth day 5 CULTURE BLOOD [[id number]] Collected: 11/04/202211 Lab Status: Final result Specimen: Blood Peripheral Updated: 11/10/20 0142 Culture No growth day 5 LEGIONELLA ANTIGEN URINE [[id number]] (Normal) Collected: 11/04/202153 Lab Status: Final result Specimen: Urine Updated: 11/05/20732 Legionella Antigen Urine Negative Narrative: This assay detects Legionella pneumophila serogroup one (1) antigen. A negative test result does not rule out the possibility of Legionella infection due to other serogroups or species of Legionella.A positive result may indicate a recent or remote infection with serogroup 1. STREP PNEUMONIAE ANTIGEN URINE [[id number]] (Normal) Collected: 11/04/202153 Lab Status: Final result Specimen: Urine Updated: 11/05/20731 Streptococcus pneumoniae Antigen Urine Negative Narrative: Patients who have received the Streptococcus pneumoniae vaccines may test positive in the 48 hours following vaccination. It is recommended to avoid testing within five days of receiving vaccination.Testing pediatric patients is discouraged because of their high rates of nasal colonization with Streptococcus pneumoniae leading to false positive results. Samples from patients taking antibiotics for more than 24 hours may cause false negatives. Imaging: I have reviewed imaging studies from the last 24 hours and is summarized below: Xr Abdomen Kub Result Date: 11/06/2020 Feeding tube in stomach. *Reading Radiologist: Jony Ray on 11/06/2020 at 12:04 PM Xr Chest 1vw Portable Result Date: 11/04/2020 1. Intubated 2. Lungs probably clear *Reading Radiologist: Mahnaz More on 11/04/2020 at 8:13 PM Assessment/Clinical Reasoning/Plan Acute on chronic hypoxic and hypercapnic respiratory failure Likely 2/2 COPD exacerbation from HCAP vs CAP - prednisone 50 mg qd for 10 days (day 8) - DuoNeb q6h and Symbicort BID - montelukast 10 mg - guaifenesin 10 mL q8h - maintain O2 88-92% Sepsis secondary to HAP - cefepime 2000 mg completed HTN - metoprolol tartrate 25 mg BID - lisinopril 10 mg qd - home HCTZ 12.5 mg qd C1 fracture - neck brace - O/P neurosurgery follow up - PT/OT - scheduled oxycodone 10 mg q6h, fentanyl PRN - fall precautions T2DM - aspart sliding scale 0-6 units DVT Prophylaxis: 5k units BID Diet: cardiac Disposition: discharge tomorrow to acute rehab D/w IM Attending Twan Cm MS3 * Verna Delacruz, PT - 11/11/2020 11:46 AM CDT Physical therapy Treatment Summary Chart review completed. Patient OK to be seen for physical therapy per nursing. See Filed Flowsheetunder Summary for details. Recommendations: Pt would benefit from continued physical therapy to improve safety and level of independence with transfers, standing balance, and ambulation in order to improve functional mobility and decrease riskfor falls. PT Discharge Recommendations: Inpatient Rehab ADMIT: 1. Chronic respiratory failure, unspecified whether with hypoxia or hypercapnia 2. Chronic respiratory failure with hypoxia and hypercapnia Precautions: cervical collar, fall SUBJECTIVE: Patient agreeable to PT. Pain Rating Score #: 7(neck) OBJECTIVE: Cognition: Orientation Level: Oriented X4 Level of Consciousness-Adult: Alert Mobility: Sit to Stand: Minimal Assistance Stand to Sit: Minimal Assistance Distance Ambulated: 150 FEET Ambulation: Assistive Device: Gait Belt;Walker-2 Wheeled Ambulation: Level of Assistance: Stand By Assist;Minimum Assistance Ambulation: Gait Deviations: Base of Support - Decreased;Chava - Decreased;Increased Trunk Flexion;Step Length - Decreased Activity Tolerance and Oxygen Requirements: O2 L/M: 3 L/Minute O2 DEVICE: Nasal Cannula Position/Activity HR SpO2% Suppl O2 Gait 80 99 3 L NC ASSESSMENT: Patient pleasant and agreeable to PT. Ambulated in hallway 150 ft with SBA/Min A. Attempted ambulation without AD but patient unable to take steps. Patient still requires assistance with ambulation to steady gait. After returning to room patient requested to use BSC. PT assisted patientin gown change, and pt was SBA to 2WW while nursing performed Total A micheline-care. Patient transferred to recliner with Min A and 2WW. Passed off care to nursing at end of session. If this is the last Physical Therapy visit, this serves as the discharge summary. All vitals stablethroughout visit; All lines, monitors, IV's, equipment in place and intact pre and post visit. Patient left in chair with call and phone within reach. Chair alarm reactivated. Nurse informed about today's treatment session. PPE Worn this date: PPE worn by staff: gloves;mask - surgical PPE worn by patient: gown - patient, clean;socks - clean * Iraseam Russell RN - 11/11/2020 9:45 AM CDT [facility] Acute Rehab update: [facility] update: Auth initiated @ 944am 11/11 Clinical faxed Ref # [id number] Thanks for referral, Irasema Russell RN, BSN Clinical Liaison [facility] [phone] * Tabitha Turner RN - 11/10/2020 9:08 PM CDT Patient vs stable, compliant with care, however remains impulsive at times. Patient denies pain, resting comfortably. Tabitha Turner RN * Altaf Arias MD - 11/10/2020 1:20 PM CDT Attending Progress Note I have seen and examined Phoebe Dawn on 11/10/[address] Garcia and agree with the assessment and plan. In addition I note: New Events Feeling well. Some neck pain however it is improved with pain medication Some cough Physical Exam Patient Vitals for the past 6 hrs: Temp Pulse Resp BP 11/10/20 1200 98.3 ??F (36.8 ??C) 79 17 149/82 11/10/20 1100 -- 67 20 152/65 11/10/20 1000 -- 76 22 -- 11/10/20 0830 98.5 ??F (36.9 ??C) 75 15 160/70 11/10/20 0746 -- 92 17 -- GEN No acute distress. HEENT In C collar CHEST CTA bilaterally, no respiratory distress HEART RRR, Normal S1, S2. No murmurs/rubs/gallops. ABD Soft, NT/ ND, +BS. EXT No lower extremity edema NEURO Alert, oriented x 3, appropriately interactive. Reviewed labs Hypokalemic Assessment and Plan 1. Acute on chronic respiratory failure with hypoxia and hypercapnia due to COPD exacerbation. Improved. Currently on home 3 L of O2. Continue prednisone 40 mg PO daily for 10 days total. Continue Symbicort BID. Continue montelukast. 2. Hospital acquired pneumonia. Completed course of cefepime. 3. Essential hypertension. Continue metoprolol 25 mg BID. 4. C1 type III odontoid fracture. Maintain C collar. Neurosurgery follow up as an outpatient. 5. Hypokalemia. Potassium replaced DVT Ppx: heparin Disposition Medically stable for discharge to acute rehab Altaf Arias MD [facility] Hospitalist 11/10/2020 1:20 PM * Twan Cm - 11/10/2020 1:18 PM CDT Internal Medicine Progress Note Admission Date: 11/04/2020 Hospital Day: 6 Attending: Dr. Arias Resident/Water Valve Repairer: Dr. Garica Code Status: Full Events since last progress note: - cleared for regular diet by speech therapy, still on NGT due to only eating 20% of food - Intermittent confusion per nurses, a&ox3 on examination - 2 BM in morning - Hypokalemic - replete 40 mEq KCl - Hypertensive, persistent leukocytosis - complete cefepime course - day 7/10 prednisone course Hospital course summary: Phoebe Dawn is a 80 year old female with PMHx of COPD w/ chronic hypoxemic hypercapnic respiratory failure (3L O2 NC), moderate to severe pulm HTN (started on sildenafil, could not tolerate due toleg edema), portacath in situ, falls, type III odontoid fracture with fractures of the right and left posterior arches of C1, sprain of nuchal ligament and compression deformities involving T11 and T12. She had recently been discharged from the hospital with PNA and was home for 2 days where she developed hypoxemia and altered mental status. She presented to [facility] saturating in 80s, leukocytosis, COVID negative, head CT negative, CXR perihilar infiltrates with PCO2>100. [facility] to [facility] and intubated. Exintuated on 11/08. Pt back on baseline 3 L NC currently and was given NGT due to reduced appetite and aspiration risk. Review of Systems Unable to perform ROS: Other Constitutional: Negative for chills and fever. Pt has severe bilateral hearing loss HENT: Positive for hearing loss. Neck brace Eyes: Positive for discharge and redness. Respiratory: Positive for cough and wheezing. Negative for sputum production and shortness of breath. Cardiovascular: Negative for chest pain and palpitations. Gastrointestinal: Negative for abdominal pain, constipation, diarrhea, nausea and vomiting. OBJECTIVE Unable to calculate weight change. Intake/Output Summary (Last 24 hours) at 11/10/2020 1318 Last data filed at 11/10/2020 1200 Gross per 24 hour Intake 983.49 ml Output 1025 ml Net -41.51 ml Temp (24hrs), Av.4 ??F (36.9 ??C), Min:98.1 ??F (36.7 ??C), Max:98.6 ??F (37 ??C) Patient Vitals for the past 24 hrs: Temp Pulse Resp BP 11/10/20 1200 98.3 ??F (36.8 ??C) 79 17 149/82 11/10/20 1100 -- 67 20 152/65 11/10/20 1000 -- 76 22 -- 11/10/20 0830 98.5 ??F (36.9 ??C) 75 15 160/70 11/10/20 0746 -- 92 17 -- 11/10/20 0700 -- 82 21 173/71 11/10/20 0600 -- 82 20 172/70 11/10/20 0500 -- 68 19 163/64 11/10/20 0400 98.6 ??F (37 ??C) 78 18 172/69 11/10/20 0300 -- 71 16 171/68 11/10/20 0200 -- 63 15 156/63 11/10/20 0100 -- 68 15 (!) 181/59 11/10/20 0000 98.1 ??F (36.7 ??C) 65 20 (!) 196/69 11/09/20 2300 -- 68 18 174/67 11/09/20 2200 -- 86 16 162/79 11/09/20 2100 -- 95 14 -- 11/09/20 2019 -- 102 20 -- 11/09/202005 -- 14 -- 11/09/201999 98.4 ??F (36.9 ??C) 82 15 162/71 11/09/20 1900 -- 100 26 162/73 11/09/20 1830 -- 102 19 -- 11/09/20 1800 -- 80 14 (!) 188/70 11/09/20 1730 -- 86 19 -- 11/09/20 1700 -- 90 18 162/80 11/09/20 1630 -- 78 16 -- 11/09/20 1615 -- 79 17 -- 11/09/20 1600 -- 86 19 167/63 11/09/20 1545 -- 76 17 -- 11/09/20 1530 -- 96 19 -- 11/09/20 1515 -- 83 16 -- 11/09/20 1500 -- 83 19 163/73 11/09/20 1445 -- 85 20 -- 11/09/20 1430 -- 79 17 -- 11/09/20 1415 -- 71 18 -- 11/09/20 1400 -- 90 23 154/66 11/09/20 1347 -- 88 19 -- 11/09/20 1345 -- 84 20 -- 11/09/20 1330 -- 81 18 -- Physical Exam Constitutional: Appearance: She is ill-appearing. HENT: Nose: Comments: NGT Neck: Comments: Neck brace Cardiovascular: Rate and Rhythm: Normal rate and regular rhythm. Heart sounds: Normal heart sounds. No friction rub. No gallop. No S3 or S4 sounds. Pulmonary: Effort: Prolonged expiration and respiratory distress present. Breath sounds: Decreased air movement present. Examination of the right-upper field reveals decreased breath sounds. Examination of the left-upper field reveals decreased breath sounds. Examination of the right-middle field reveals decreased breath sounds. Examination of the left-middle field reveals decreased breath sounds. Examination of the right-lower field reveals decreased breath sounds. Examination of the left-lower field reveals decreased breath sounds and rales. Decreased breath soundsand rales present. Musculoskeletal: Right lower le+ Edema present. Left lower le+ Edema present. Labs: Recent Labs Component Name 11/10/20 0600 11/09/20 0526 11/08/20 0405 WBC 11.9* 11.3* 9.0 HGB 10.1* 10.2* 9.4* HCT 32.4* 33.6* 30.6* MCV 92.6 96.3 93.3 No results for input(s): PT, INR, PTT in the last 10504 hours. Recent Labs Component Name 11/10/20 0611/09/2052511/07/20 0327 SODIUM 142 144 141 POTASSIUM 2.9* 4.8 4.1 CHLORIDE 99 97* 97* CO2 40* 43* 37* BUN 21* 27* 32* CREATININE 0.53* 0.62 0.64 GLUCOSE 97 135* 192* Recent Labs Component Name 11/10/2059911/09/2052511/07/20 0327 CALCIUM 8.8 9.1 8.4 MAGNESIUM 2.0 2.2 2.1 Recent Labs Component Name 11/10/20 0611/09/20 0511/06/20 0420 ALKPHOS 64 68 51 AST 15 22 9 ALT 53 86* 28 Recent Labs Component Name 11/05/20 0801 TROPONINI <0.010 Micro: Microbiology Results (Displays last 21 days for this encounter ONLY) Procedure Component Value - Date/Time CULTURE MRSA [[id number]] (Normal) Collected: 11/05/20 1154 Lab Status: Final result Specimen: Microbiology from Nasal Updated: 11/07/20 0640 Culture Negative for methicillin-resistant Staphylococcus aureus (MRSA) SARS-COV-2 (COVID-19) IN HOUSE [[id number]] (Normal) Collected: 11/05/20 0840 Lab Status: Final result Specimen: Microbiology from Nasopharyngeal Updated: 11/05/20 1404 COVID-19 PCR Not detected Narrative: This nucleic acid amplification assay performance was validated by [facility]. This test has been authorized by the Food and Drug administration (FDA)under an Emergency??Use Authorization (EUA). This test has been validated in accordance withthe FDA's guidance document Policy for Diagnostic Testing in Laboratories Certified to perform High Complexity Testing under CLIA prior to Emergency Use Authorization for Coronavirus Disease-2019 during the Public Health Emergency issued on October 03, 2019. FDA independent review of this validation is pending. This test is only authorized for the duration of time the declaration that circums tances exist justifying the authorization of emergency use of in vitro diagnostic tests for detection of SARS-CoV-2 virus and/or diagnosis of COVID-19 infection under section 564(b)(1) of the Act, 21U.S.C 360bbb-3 (b)(1), unless the authorization is terminated or revoked sooner. Fact Sheets for this EUA assay are available upon request. CULTURE SPUTUM+GRAM STAIN [[id number]] Collected: 11/04/202328 Lab Status: Final result Specimen: Microbiology from Sputum Updated: 11/07/20 0746 Culture No growth Gram Stain <10 per low power field Squamous epithelial cells <10 per low power field Polymorphonuclear cells No organisms seen CULTURE BLOOD [[id number]] Collected: 11/04/202218 Lab Status: Final result Specimen: Blood Peripheral Updated: 11/10/20 0142 Culture No growth day 5 CULTURE BLOOD [[id number]] Collected: 11/04/202211 Lab Status: Final result Specimen: Blood Peripheral Updated: 11/10/20 0142 Culture No growth day 5 LEGIONELLA ANTIGEN URINE [[id number]] (Normal) Collected: 11/04/202153 Lab Status: Final result Specimen: Urine Updated: 11/05/20 0733 Legionella Antigen Urine Negative Narrative: This assay detects Legionella pneumophila serogroup one (1) antigen. A negative test result does not rule out the possibility of Legionella infection due to other serogroups or species of Legionella.A positive result may indicate a recent or remote infection with serogroup 1. STREP PNEUMONIAE ANTIGEN URINE [[id number]] (Normal) Collected: 11/04/202153 Lab Status: Final result Specimen: Urine Updated: 11/05/20 0732 Streptococcus pneumoniae Antigen Urine Negative Narrative: Patients who have received the Streptococcus pneumoniae vaccines may test positive in the 48 hours following vaccination. It is recommended to avoid testing within five days of receiving vaccination.Testing pediatric patients is discouraged because of their high rates of nasal colonization with Streptococcus pneumoniae leading to false positive results. Samples from patients taking antibiotics for more than 24 hours may cause false negatives. Imaging: I have reviewed imaging studies from the last 24 hours and is summarized below: Xr Abdomen Kub Result Date: 11/06/2020 Feeding tube in stomach. *Reading Radiologist: Jony Ray on 11/06/2020 at 12:04 PM Xr Chest 1vw Portable Result Date: 11/04/2020 1. Intubated 2. Lungs probably clear *Reading Radiologist: Mahnaz More on 11/04/2020 at 8:13 PM Assessment/Clinical Reasoning/Plan Acute on chronic hypoxic and hypercapnic respiratory failure Likely 2/2 COPD exacerbation from HCAP vs CAP - prednisone 50 mg qd for 10 days (day 7) - DuoNeb q6h and Symbicort BID - montelukast 10 mg - guaifenesin 10 mL q8h - maintain O2 88-92% Sepsis secondary to HAP - cefepime 2000 mg completed HTN - metoprolol tartrate 25 mg BID - lisinopril 10 mg qd - home HCTZ 12.5 mg qd C1 fracture - neck brace - O/P neurosurgery follow up - PT/OT - scheduled oxycodone 10 mg q6h, fentanyl PRN - fall precautions T2DM - aspart sliding scale 0-6 units DVT Prophylaxis: 5k units BID Diet: cardiac Disposition: discharge tomorrow to acute rehab D/w IM Attending Twan Cm MS3 * Muriel Spring RN - 11/10/2020 12:22 PM CDT Case Management Progress Note Anticipated level of care at discharge: Acute Rehab Facility, Half-Way - Skilled Facility Discharge Plan: plan for acute rehab at [facility]. [place] Liaison with [facility] has submitted for authorization with [facility]. Insurance has just been determined to be [facility]. Name is Phoebe Hillman BETZY met with patient met with her and her son Reynold at bedside. She fluctuates between agreement for rehab and for going home. Son confirms she lives with her at home. He is also in his 70s. He confirms his mother can walk to and from her bedroom to kitchen and to her bathroom. Reynold states he and his sister feel she should go to rehab. Basic Needs Assessment (BNA) Score: 3 Anticipated Discharge Date: Anticipated Discharge Date: 11/12/20 Transportation at Discharge: Family Transportation to [place]:Family Equipment at Home: Equipment At Home: Chair-Shower;Hand Held Shower;Home O2 Additional DME needed: None identified. Hunger Screening: Within the past 12 months the food we bought just didn't last and we didn't have money to get more.: Unable to assess Within the past 12 months we worried whether our food would run out before we got money to buy more: Unable to assess Medication affordability concerns: [place]: Muriel Spring RN * Chasity Maldonado OT - 11/10/2020 10:22 AM CDT Occupational Therapy Treatment Summary Chart review and OT eval complete, nursing aware of treatment session. RECOMMENDATIONS/PLAN:??Pt would benefit from continued OT ([facility] vs SNF) at d/c to maximize ADL and functional mobility/transfer independence and safety. OT will continue to follow during the acute stay. Progress as tolerated. ?? Precautions/Restrictions: cervical spine precautions (Alpha J) Subjective: Pt agreeable to OT session. No complaints at this time Functional Transfers and Mobility Sit to Stand: Minimal Assistance Stand to Sit: Minimal Assistance Toilet Transfers: Minimal Assistance(BSC) ADL Tasks: Lower Body Dressing: Maximal Assistance(d/t BM on socks) Toileting: Moderate Assistance;Maximal Assistance(d/t loose BM) Activity Tolerance/Vital Signs: Activity Tolerance: Requires rest breaks Level of Consciousness-Adult: Alert Cognition: Attention/concentration-decreased;Processing-delayed;Safety awareness-decreased;Follows one step commands;Judgement-decreased Intervention: OT session focused on increasing ADL/functional transfer independence and safety. Pt sitting in recliner upon OT arrival; agreeable to OT session. Pt has call light on stating she needed to have BM. Pt incontinent of loose BM after taking several steps to BSC. Required increased assistance with hygiene/socks d/t loose BM. Resting in recliner at end of session; chair alarm on. Please refer to the Filed Flowsheet OT Treatment for further details. Refer to care plan for goals. Recommendations: Pt would benefit from continued OT ([facility]) at d/c. Progress as tolerated. All vitals stable throughout visit; all lines, monitors, IV's and equipment in place and intact preand post visit. Nursing notified. If this is the last Occupational Therapy visit, this serves as the discharge summary. PROSPER Squires, OTR/L [phone] * Chasity Maldonado OT - 11/10/2020 10:15 AM CDT Occupational Therapy Treatment Summary Chart review and OT eval complete, nursing aware of treatment session. RECOMMENDATIONS/PLAN: Pt would benefit from continued OT ([facility] vs SNF) at d/c to maximize ADL and functional mobility/transfer independence and safety. OT will continue to follow during the acute stay.Progress as tolerated. Precautions/Restrictions: cervical spine precautions (Alpha J) Subjective: Pt agreeable to OT session. No complaints at this time Functional Transfers and Mobility Supine to Sit: Activity Does Not Occur(sitting EOB with RN present) Sit to Stand: Minimal Assistance Stand to Sit: Minimal Assistance Type of Transfer: Stand Pivot Transfer(with handheld assist) Toilet Transfers: Minimal Assistance(BSC) ADL Tasks: Oral Facial Hygiene: Minimal Assistance(standing at sink; steady assist) Toileting: Minimal Assistance Activity Tolerance/Vital Signs: Activity Tolerance: Requires rest breaks Position/Activity BP HR SPO2 RR Suppl O2 Sitting on BSC 160/70 (102) 101 94 17 3L NC Level of Consciousness-Adult: Alert Cognition: Attention/concentration-decreased;Follows one step commands;Judgement-decreased;Safety awareness-decreased Intervention: OT session focused on increasing ADL/functional transfer independence and safety. Pt sitting EOB with RN present at start of session; needing to urgently use BSC. Pt able to take several steps with hand hold assist min A to BSC. Completes toilet hygiene with min/SBA from seated level.Ambulates to sink using wwr with min A; stands to wash hands with min A. Pt resting in recliner at end of session; chair alarm on. Please refer to the Filed Flowsheet OT Treatment for further details. Refer to care plan for goals. Recommendations: Pt would benefit from continued OT ([facility]) at d/c. Progress as tolerated. All vitals stable throughout visit; all lines, monitors, IV's and equipment in place and intact preand post visit. Nursing notified. If this is the last Occupational Therapy visit, this serves as the discharge summary. Chasity Maldonado OTD, OTR/L [phone] * Dionne Bautista MSW - 11/10/2020 9:46 AM CDT Social Work Progress Note Discharge Plan Disposition: should be medically ready to d/c; hopefully to our AR today. Insurance info given to our admitting dept and to our AR. AR sent off for [facility] auth today. Need SNF back ups in [place]. Transportation: staff Anticipated Discharge Date: Anticipated Discharge Date: 11/12/20 Contacts: Extended Emergency Contact Information Primary Emergency Contact: carlos eduardoJenn olmedodemarcus Mobile Relation: Son Secondary Emergency Contact: joseDarius Mobile Relation: Daughter *SW left VM with daughter re: possible d/c soon. Spoke with daughter. Updated. She will call me back with [facility] ID number since still not in our system. Daughter provided [facility] info which I passed on to Anuradha Morin/admitting: [facility] ID: [id number] Group# [id number]. Also let her know last name is Rafy. Comments: Name is Phoebe Hillman ADRIANNA Esparza, MPH, SERVICE ORDER EXPEDITER Extensions: [phone] * Verna Delacruz, PT - 11/10/2020 9:34 AM CDT Physical therapy ICU Treatment Summary Chart review completed. Patient OK to be seen for physical therapy per nursing. See Filed Flowsheetunder Summary for details. Recommendations: Pt would benefit from continued physical therapy to improve safety and level of independence with transfers, standing balance, and ambulation in order to improve functional mobility and decrease riskfor falls. PT Discharge Recommendations: Inpatient Rehab ADMIT: 1. Chronic respiratory failure, unspecified whether with hypoxia or hypercapnia 2. Chronic respiratory failure with hypoxia and hypercapnia Precautions: fall, chair/bed alaram SUBJECTIVE: I'm hungry. Pain Rating Score #: 0 OBJECTIVE: Cognition: Orientation Level: Oriented to Person;Oriented to Place;Disoriented to Situation;Disoriented to Time Level of Consciousness-Adult: Alert Mobility: Sit to Stand: Minimal Assistance Stand to Sit: Minimal Assistance Distance Ambulated: (5+25) Ambulation: Assistive Device: Gait Belt;Walker-2 Wheeled Ambulation: Level of Assistance: Stand By Assist;Minimum Assistance Ambulation: Gait Deviations: Base of Support - Decreased;Chava - Decreased;Increased Trunk Flexion;Push Off - Decreased;Step Length - Decreased Activity Tolerance and Oxygen Requirements: O2 L/M: 3 L/Minute O2 DEVICE: Nasal Cannula Vital Signs: Position/Activity BP MAP HR SpO2% Suppl O2 Sitting on BSC 148/87 101 87 98 3L NC Gait 102 97% Post-activity sitting 160/70 102 74 95 3L NC ASSESSMENT: Patient sitting on C commode upon PT/OT arrival. Patient Min A for all OOB activity including sit<>stand, standing at the sink washing her hands, and gait of 5 ft and 25 ft. Patient demonstrates decreased step length and chava with increased trunk flexion. Patient notes feeling weak during ambulation. Overall patient continues to progress well and would benefit from continued therapy to maximize functional independence and return to PLOF. Patient resting comfortably in chair at end of session ordering breakfast. If this is the last Physical Therapy visit, this serves as the discharge summary. All vitals stablethroughout visit; All lines, monitors, IV's, equipment in place and intact pre and post visit. Patient left in chair with call and phone within reach. Chair alarm reactivated. Nurse informed about today's treatment session. PPE Worn this date: PPE worn by staff: eye protection;mask - surgical PPE worn by patient: gown - patient, clean;socks - clean * Brigitte Garcia MD - 11/10/2020 9:29 AM CDT Internal Medicine Resident Progress Note Admission Date: 11/04/2020 Hospital Day: 6 Attending: Dr. Arias Resident: Dr. Garcia Code Status: Full Code Events since last progress note: -no acute events overnight -remains A&Ox4, no new complains, hearing loss -evaluated by speech therapy yesterday, clear for regular diet however remains on NGT due to poor intake -BM this morning -[facility] summary: 80 y/o female with a h/o HTN, COPD, chronic hypoxemic hypercarbic respiratory failure(home O2 3-4 L), ??moderate to severe Pulm HTN(started on sildenafil, could not tolerate - developed leg edema), portacath in situ, falls, type lll odontoid fracture with ??fractures of the right and left posteriorarches of C1,sprain of nuchal ligament and,compression deformities involving T12 and T11. ?? Presented to [facility] for hypoxia ( saturating 80s at home) and altered mental status. Recently discharged from the hospital with PNA and was home for 2 days. ??She was brought to the EDat [place] where her WBC was elevated, COVID rapid Ag negative, Head CT negative, CXR with perihilar infiltrates, and her PCO2>100. ??She was intubated and transferred to [facility] for further management. ??She is in a C-collar and details are limited but she apparently has a new cervical spine fracture. ? 09/10/2020 - 09/16/2020?was ??admitted at [facility] (transferred form [facility] with h/o fall and neck pain)??Type III Odontoid fracture ,was negative for orthostasis but there was significant concern for , advised to follow up with neurosurgery after 6 weeks. As per daughter patient transferred to rehab for one week, then home. ?? she was at her baseline after hospital discharge,was not discharged on abx, started having worsening sob and AMS one day prior to present at [facility]. Patient successfully extubated on 11/07. Back to baseline O2 NC at 2 lts/min. Patient overall stable. Transferred to TCU. Review of Systems Unable to perform ROS: Other Constitutional: Negative for chills and fever. Pt has severe bilateral hearing loss HENT: Positive for hearing loss. Neck brace Eyes: Positive for discharge and redness. Respiratory: Positive for cough and wheezing. Negative for sputum production and shortness of breath. Cardiovascular: Negative for chest pain and palpitations. Gastrointestinal: Negative for abdominal pain, constipation, diarrhea, nausea and vomiting. Musculoskeletal: Negative for back pain and joint pain. Neurological: Negative for dizziness. Psychiatric/Behavioral: Negative for depression and suicidal ideas. OBJECTIVE Unable to calculate weight change. Intake/Output Summary (Last 24 hours) at 11/10/2020 0929 Last data filed at 11/09/20201999 Gross per 24 hour Intake 883.49 ml Output 1025 ml Net -141.51 ml Temp (24hrs), Av.4 ??F (36.9 ??C), Min:98.1 ??F (36.7 ??C), Max:98.6 ??F (37 ??C) Patient Vitals for the past 24 hrs: Temp Pulse Resp BP 11/10/20 0830 98.5 ??F (36.9 ??C) 75 15 160/70 11/10/20 0746 -- 92 17 -- 11/10/20 0700 -- 82 21 173/71 11/10/20 0600 -- 82 20 172/70 11/10/20 0500 -- 68 19 163/64 11/10/20 0400 98.6 ??F (37 ??C) 78 18 172/69 11/10/20 0300 -- 71 16 171/68 11/10/20 0200 -- 63 15 156/63 11/10/20 0100 -- 68 15 (!) 181/59 11/10/20 0000 98.1 ??F (36.7 ??C) 65 20 (!) 196/69 11/09/20 2300 -- 68 18 174/67 11/09/20 2200 -- 86 16 162/79 11/09/20 2100 -- 95 14 -- 11/09/20 2019 -- 102 20 -- 11/09/20 2006 -- 91 14 -- 11/09/201999 98.4 ??F (36.9 ??C) 82 15 162/71 11/09/20 1900 -- 100 26 162/73 11/09/20 1830 -- 102 19 -- 11/09/20 1800 -- 80 14 (!) 188/70 11/09/20 1730 -- 86 19 -- 11/09/20 1700 -- 90 18 162/80 11/09/20 1630 -- 78 16 -- 11/09/20 1615 -- 79 17 -- 11/09/20 1600 -- 86 19 167/63 11/09/20 1545 -- 76 17 -- 11/09/20 1530 -- 96 19 -- 11/09/20 1515 -- 83 16 -- 11/09/20 1500 -- 83 19 163/73 11/09/20 1445 -- 85 20 -- 11/09/20 1430 -- 79 17 -- 11/09/20 1415 -- 71 18 -- 11/09/20 1400 -- 90 23 154/66 11/09/20 1347 -- 88 19 -- 11/09/20 1345 -- 84 20 -- 11/09/20 1330 -- 81 18 -- 11/09/20 1315 -- 81 17 -- 11/09/20 1300 -- 89 19 147/61 11/09/20 1245 -- 83 19 -- 11/09/20 1230 -- 88 21 -- 11/09/20 1215 -- 85 20 -- 11/09/20 1206 -- -- -- (!) 11/09/20 1200 98.2 ??F (36.8 ??C) 81 14 (!) 11/09/20 1145 -- 67 14 -- 11/09/20 1130 -- 83 17 -- 11/09/20 1115 -- 61 20 -- 11/09/20 1100 -- 64 16 (!) 204/94 11/09/20 1045 -- 89 17 -- 11/09/20 1037 -- -- -- (!) 19411/09/20 1030 -- 83 16 -- 11/09/20 1015 -- 88 16 -- 11/09/20 1000 -- 79 18 (!) 19411/09/20 0945 -- 79 21 -- 11/09/20 0930 -- 92 17 (!) Physical Exam Constitutional: Appearance: She is ill-appearing. HENT: Nose: Comments: NGT Eyes: Conjunctiva/sclera: Conjunctivae normal. Neck: Comments: Neck brace Cardiovascular: Rate and Rhythm: Normal rate and regular rhythm. Heart sounds: Normal heart sounds. No friction rub. No gallop. No S3 or S4 sounds. Pulmonary: Effort: Prolonged expiration and respiratory distress present. Breath sounds: Decreased air movement present. Examination of the right-upper field reveals decreased breath sounds. Examination of the left-upper field reveals decreased breath sounds. Examination of the right-middle field reveals decreased breath sounds. Examination of the left-middle field reveals decreased breath sounds. Examination of the right-lower field reveals decreased breath sounds. Examination of the left-lower field reveals decreased breath sounds and rales. Decreased breath soundsand rales present. Abdominal: General: There is no distension. Palpations: There is no mass. Musculoskeletal: Right lower le+ Edema present. Left lower le+ Edema present. Neurological: General: No focal deficit present. Mental Status: She is oriented to person, place, and time. 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 Plan: -monitor vital signs every 4 hrs -maintain 02 saturation ranges 88-94% -continue with prednisone PO -duonebs -metoprolol -insulin correctional scale -DVT prophylaxis -famotidine -fall precautions -start cardiac diet -Physical therapy in am Dispo: pending acute rehab acceptance D/w IM Attending Brigitte Garcia MD Due to medical issues in the assessment and plan, continued hospitalization will be required. * Dionne Bautista, TABLET TECHNICIAN - 11/09/2020 4:39 PM CDT Social Work Progress Note Discharge Plan Disposition: TBD. Extubated on 11/08/20 to 2L o2. Was in SW/ Hanna note that patient has [facility] Medicare.Still not showing on face sheet however facesheet is showing [place] Medicaid. Speech has cleared her for a regular diet. PT and OT worked with her today and recommended AR vs SNF. Dr. Arias to put in AR consult and I updated [facility]/AR. Transportation: TBD Anticipated Discharge Date: Anticipated Discharge Date: 11/12/20 Contacts: Extended Emergency Contact Information Primary Emergency Contact: Darius andino Mobile Relation: Son Secondary Emergency Contact: Darius garcia Mobile Relation: Daughter Comments: ADRIANNA Esparza, MPH, SERVICE ORDER EXPEDITER Extensions: [phone] * Madeline Savage, RD/LD - 11/09/2020 3:11 PM CDT Problem: Oral Intake: Inadequate oral intake Goal: Total intake will meet estimated nutrient needs Description: Estimated Needs: KCAL: 4584-7746(20-23 kcal/kg BW) Protein (g): 78-131 gm(1.2-2.0 gm/kg of ABW) Outcome: Progressing CLINICAL NUTRITION REASSESSMENT Recent events: Extubated yesterday, on 2L NC. Following commands. Assessment: Patient discussed in rounds. Patient seen for reassessment. Visited with patient. She isn't hungry right now. TF held, NG clamped. Seen by COPY DIRECTOR today. Cleared for regular consistency and thin liquids.Started on a regular diet, agree. Discussed supplements with patient. She refused Ensure. Likes strawberry. Will trial strawberry house shakes once daily at breakfast and thacker Magic Cup BID to help meet estimated nutrient needs. House Shake provides 200 calories, 6 grams protein and 30 grams of carb per 4 oz serving. Magic Cup (dysphagia supplement) provides 290 calories, 9g protein, 38g of carbper serving. Adjusted TF order to Jevity 1.2 at 50 mL/hr with 1 protein flush daily. Jevity 1.2 @ 50 ml/hr will provide 1440 Calories, 67 gms Protein, 203 gms Carb, 22 gms Fiber, and 968 mls of free water. 1 packProsource (Protein Additive) flushed daily provides 60 calories,15 grams protein and 0 grams of carb. TF order will provide 1500 kcal and 82 gm protein daily, which is 100% of estimated energy and protein needs. Recommend starting if PO intake <50% consistently. FMS in place for stools. 250 mL out yesterday, 225 mL so far today. Has lactulose TID and miralax daily ordered. Weight down 5# from admission. Net +2.6L. Patient is on solu-medrol - anticipate elevated blood glucose throughout steroid window. On low dose SSI for glucose control. BUN elevated, trending down. Med/Surg History and Clinical Diagnoses: septic shock, HCAP, acute on chronic respiratory failure with hypercarbia, acute exacerbation of COPD, recent cervical spine fracture; h/o anxiety, COPD, diverticulitis, HLD . Current diet order: Regular Current tube feeding order: Jevity 1.2 at 50 mL/hr with 1 protein flushdaily P.O intake for past 48 hrsNo data recorded No data recorded Pain affecting intake: No Food Allergies: No known food allergies Admit Weight: 156 lb 8.4 oz (71 kg) (11/04/202102) First Weight Method (Utilize Scales): Bedscale (11/05/20399) Filed Wts: 11/05/20 04011/06/20 0400 11/07/20 04011/08/20 0400 Weight: 144 lb 6.4 oz (65.5 kg) 142 lb 1.6 oz (64.5 kg) 147 lb 11.2 oz (67 kg) 151 lb 3.2 oz (68.6 kg) Wt change: down 5# from admission Body mass index is 29.53 kg/m??. GI Concerns: None LABS: Recent Labs Component Name 11/09/20 0526 11/07/20 0327 11/06/2041911/04/20205311/04/202053 SODIUM 144 141 142 - 141 POTASSIUM 4.8 4.1 3.9 - 4.0 CHLORIDE 97* 97* 97* - 96* CO2 43* 37* 40* - 41* BUN 27* 32* 21* - 20 CREATININE 0.62 0.64 0.61 - 0.65 GLUCOSE 135* 192* 182* - 159* CALCIUM 9.1 8.4 8.5 - 8.3* ALT 86* - 28 - 55 ALKPHOS 68 - 51 - 57 AST 22 - 9 - 43* TBIL 0.5 - 0.2 - 0.5 TPROT 6.0* - 5.2* - 5.0* EGFR >60 >60 >60 - >60 EGFRAFR >60 >60 >60 - >60 - = values in this interval not displayed. Recent Labs Component Name 11/09/20 0526 11/08/20 0405 11/07/20 0327 HGB 10.2* 9.4* 8.7* HCT 33.6* 30.6* 28.4* Recent Labs Component Name 11/05/20 0433 HGBA1C 5.2 No results for input(s): PREALBUMIN in the last 46322 hours. Recent Labs Component Name 11/07/20 0327 11/06/20 0420 PHOS 3.6 2.9 Recent Labs Component Name 11/09/20 0526 11/07/20 0327 11/06/20 0420 MAGNESIUM 2.2 2.1 2.1 Patient Vitals for the past 30 hrs: Glucose Bedside (mg/dL) 11/09/20 1211 168 mg/dL 11/09/20 0512 151 mg/dL 11/08/20 2326 156 mg/dL 11/08/20 1809 136 mg/dL 11/08/20 1145 216 mg/dL Intake/Output Summary (Last 24 hours) at 11/09/2020 1511 Last data filed at 11/09/2020 0915 Gross per 24 hour Intake 1343.59 ml Output 1560 ml Net -216.41 ml PERTINENT MEDICATIONS FOR CURRENT ENCOUNTER: ?? SCHEDULED MEDICATIONS: ? 0.9% NaCl injection 3 mL, Intracatheter, q8h ? 0.9% NaCl injection 3 mL, Intracatheter, q8h ? albuterol-ipratropium (Duo-Neb) nebulizer solution 3 mL, Inhalation, q6h ? amitriptyline (Elavil) tablet 25 mg, Oral, QDAY ? budesonide-formoterol (Symbicort) 160-4.5 MCG/ACT inhaler 2 puff, Inhalation, BID ? busPIRone (Buspar) tablet 5 mg, Oral, BID ? cefepime (Maxipime) 2,000 mg in 0.9% NaCl IV 50 mL IVPB, Intravenous, q8h ? chlorhexidine (Peridex) 0.12 % oral solution 15 mL, Mouth/Throat, BID ? clonazePAM (KlonoPIN) tablet 1 mg, Oral, AT BEDTIME ? famotidine (Pepcid) injection 20 mg, Intravenous, BID ? guaiFENesin (Robitussin) solution 10 mL, Oral, q8h ? heparin injection 5,000 Units, Subcutaneous, BID ? insulin aspart (NovoLOG) pen 0-6 Units, Subcutaneous, q6h ? lactulose (Chronulac) solution 20 g, Oral, TID ? metoprolol tartrate (Lopressor) tablet 25 mg, Enteral Tube, BID ? montelukast (Singulair) tablet 10 mg, Enteral Tube, AT BEDTIME ? oxyCODONE (Roxicodone Intensol) solution 10 mg, Enteral Tube, q6h ? polyethylene glycol 3350 (Miralax) packet 17 g, Oral, QDAY ? [START ON 11/10/2020] predniSONE (Deltasone) tablet 50 mg, Enteral Tube, QDAY WITH BREAKFAST ?? CONTINUOUS MEDICATIONS: ? 0.9% NaCl flush bag, Intravenous, CONTINUOUS PRN Skin/Wound: WDL Stools: Last BM (Date): 11/09/20(per FMS) Stool Appearance : Loose (11/09/20 1200) Nutrition Care Process (1) Nutrition Diagnostic Statement: Inadequate oral intake related to:: decreased ability to consume or tolerate food and/or fluids due to illness as evidenced by:: oral intake insufficient to meet estimated requirements Nutrition Diagnostic Statement Progress: Nutrition problem continues Nutrition Intervention: Meals and snacks:;Enteral nutrition:;Medical Food Supplements:;Collaboration with other providers Education needed: Supplements Education provided. Education provided on the benefit of Oral Nutrition Supplements (ONS) to aid with meeting calorie and protein needs and maintaining weight when po intake is poor. Expected level of compliance: Questionable Follow at high risk. Nutrition recommendation: alter/change nutrition order ?? Continue regular diet ?? Start strawberry house shake once daily at breakfast and thakcer Magic Cup BID with lunch and dinner Monitoring: ?? PO intake ?? Acceptance of oral nutrition supplement and intake ?? Weights ?? Labs ?? GI function/bowel movements Evaluation: Nutrition Goal: Total intake will meet estimated nutrient needs Nutrition Goal Timeframe: Ongoing Nutrition Goal Progress: Goal not met;Continue with current goal Brittaney Mosley RD/LALA, MS 11/09/2020 3:27 PM Ascom [id number] * Brigitte Garcia MD - 11/09/2020 3:06 PM CDT Photo Producer Accept Note I have read and reviewed all of the previous medical records and details of the admission and hospitalization. Attending: Dr. Arias Resident: Dr. Garcia Code Status: Full Code Summary Statement: 80 y/o female with a h/o HTN, COPD, chronic hypoxemic hypercarbic respiratory failure(home O2 3-4 L), moderate to severe Pulm HTN(started on sildenafil, could not tolerate - developed leg edema), portacath in situ, falls, type lll odontoid fracture with fractures of the right and left posterior arches of C1,sprain of nuchal ligament and,compression deformities involving T12 and T11. Presented to [facility] for hypoxia ( saturating 80s at home) and altered mental status. Recently discharged from the hospital with PNA and was home for 2 days. ??She was brought to the EDat [place] where her WBC was elevated, COVID rapid Ag negative, Head CT negative, CXR with perihilar infiltrates, and her PCO2>100. ??She was intubated and transferred to [facility] for further management. ??She is in a C-collar and details are limited but she apparently has a new cervical spine fracture. ?? 09/10/2020 - 09/16/2020 was admitted at [facility] (transferred form [facility] with h/o fall and neck pain) Type III Odontoid fracture ,was negative for orthostasis but there was significant concernfor , advised to follow up with neurosurgery after 6 weeks. As per daughter patient transferred to rehab for one week, then home. ?? she was at her baseline after hospital discharge,was not discharged on abx, started having worsening sob and AMS one day prior to present at [facility]. Patient successfully extubated on 11/07. Back to baseline O2 NC at 2 lts/min. Patient overall stable. Transferred to TCU. ?? Pertinent Physical Exam: Patient Vitals for the past 24 hrs: Temp Pulse Resp BP 11/09/20 1347 -- 88 19 -- 11/09/20 1245 -- 83 19 -- 11/09/20 1230 -- 88 21 -- 11/09/20 1215 -- 85 20 -- 11/09/20 1206 -- -- -- (!) 11/09/20 1200 98.2 ??F (36.8 ??C) 81 14 (!) 11/09/20 1145 -- 67 14 -- 11/09/20 1130 -- 83 17 -- 11/09/20 1115 -- 61 20 -- 11/09/20 1100 -- 64 16 (!) 11/09/20 1045 -- 89 17 -- 11/09/20 1037 -- -- -- (!) 11/09/20 1030 -- 83 16 -- 11/09/20 1015 -- 88 16 -- 11/09/20 1000 -- 79 18 (!) 11/09/21 0945 -- 79 21 -- 11/09/20 0930 -- 92 17 (!) 208/76 11/09/20 0923 -- 88 17 -- 11/09/20 0915 -- 87 19 -- 11/09/20 0900 -- 98 23 (!) 183/106 11/09/20 0845 -- 82 16 -- 11/09/20 0830 -- 71 13 -- 11/09/20 0815 -- 87 18 -- 11/09/20 0800 -- 82 15 (!) 202/90 11/09/20 0745 -- 86 18 -- 11/09/20 0730 -- 102 14 -- 11/09/20 0715 -- 100 19 -- 11/09/20 07 -- 84 13 168/67 11/09/20 0600 -- 91 14 166/61 11/09/20 0500 -- 85 17 176/88 11/09/20 0400 98.1 ??F (36.7 ??C) 91 23 143/50 11/09/20 0300 -- 89 12 154/65 11/09/20 0200 -- 85 11 167/64 11/09/20 0100 -- 91 12 168/75 11/09/20 0000 -- 78 11 176/68 11/08/20 2330 -- 91 20 -- 11/08/20 2300 98.1 ??F (36.7 ??C) 73 13 172/62 11/08/20 2200 -- 80 17 165/55 11/08/20 2100 -- 72 16 122/57 11/08/202012 -- 69 13 -- 11/08/201999 98.3 ??F (36.8 ??C) 67 11 173/66 11/08/20 1900 -- 67 14 175/67 11/08/20 1830 -- 73 17 -- 11/08/20 1815 -- 75 16 -- 11/08/20 1800 -- 66 13 164/65 11/08/20 1745 -- 99 20 -- 11/08/20 1700 -- 75 -- 168/71 11/08/20 1645 -- 72 -- -- 04/06/21 1630 -- 77 -- -- 11/08/20 1615 -- 57 15 -- 11/08/20 1600 -- 85 20 166/71 11/08/20 1545 -- 50 14 -- 11/08/20 1530 99 ??F (37.2 ??C) 88 12 -- 11/08/20 1518 -- 46 14 -- 11/08/20 1515 -- 47 16 -- @PHYSEPVITALSEXAM@ Physical Exam Constitutional: She is oriented to person, place, and time. HENT: Head: Normocephalic. Difficulty of hearing bilaterally Neck: No JVD present. Wearing a C collar Cardiovascular: Normal rate and regular rhythm. Pulmonary/Chest: Effort normal and breath sounds normal. Abdominal: She exhibits no distension. There is no abdominal tenderness. There is no rebound. Musculoskeletal: General: Deformity present. No edema. Neurological: She is alert and oriented to person, place, and time. Skin: No rash noted. No erythema. 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 Hugo Garcia MD Associated attestation - Altaf Arias MD - 11/09/2020 6:04 PM CDT Attending Progress Note I have seen and examined Phoebe Dawn on 11/09/[address] Garcia and agree with the assessment and plan. In addition I note: New Events Patient denies shortness of breath or pain No concens Physical Exam Patient Vitals for the past 6 hrs: Temp Pulse Resp BP 11/09/20 1615 -- 79 17 -- 11/09/20 1600 -- 86 19 167/63 11/09/20 1545 -- 76 17 -- 11/09/20 1530 -- 96 19 -- 11/09/20 1515 -- 83 16 -- 11/09/20 1500 -- 83 19 163/73 11/09/20 1445 -- 85 20 -- 11/09/20 1430 -- 79 17 -- 11/09/20 1415 -- 71 18 -- 11/09/20 1400 -- 90 23 154/66 11/09/20 1347 -- 88 19 -- 11/09/20 1345 -- 84 20 -- 11/09/20 1330 -- 81 18 -- 11/09/20 1315 -- 81 17 -- 11/09/20 1300 -- 89 19 147/61 11/09/20 1245 -- 83 19 -- 11/09/20 1230 -- 88 21 -- 11/09/20 1215 -- 85 20 -- 11/09/20 1206 -- -- -- (!) 11/09/20 1200 98.2 ??F (36.8 ??C) 81 14 (!) 11/09/20 1145 -- 67 14 -- GEN No acute distress. NECK In collar CHEST CTA bilaterally, no respiratory distress HEART RRR, Normal S1, S2. No murmurs/rubs/gallops. ABD Soft, NT/ ND, +BS. EXT No lower extremity edema NEURO Alert, oriented x 3, appropriately interactive. Reviewed labs Assessment and Plan Acute on chronic respiratory failure with hypoxia and hypercapnia due to COPD exacerbation. Improved. Currently on home 3 L of O2. Continue prednisone 40 mg PO daily for 10 days total. Continue Symbicort BID. Continue montelukast. Hospital acquired pneumonia. Completed course of cefepime. Essential hypertension. Continue metoprolol 25 mg BID. C1 type III odontoid fracture. Maintain C collar. Neurosurgery follow up as an outpatient. DVT Ppx: heparin Disposition Acute rehab likely. Altaf Arias MD [facility] Hospitalist 11/09/2020 5:44 PM * Chasity Maldonado, OT - 11/09/2020 1:43 PM CDT Occupational Therapy Initial Evaluation OT orders received. Chart reviewed for diagnosis and medical systems review. Nursing consented for OT. Patient consented to participate in therapy. RECOMMENDATIONS/PLAN: Pt would benefit from continued OT (AR vs SNF) at d/c to maximize ADL and functional mobility/transfer independence and safety. OT will continue to follow during the acute stay.Progress as tolerated. Admission History: 80 y/o female admitted with septic shock, HCAP, and acute on chronic hypoxic/hypercarbic respiratory failure. Pt had a recent fall (Sep 2020) and sustained Type III odontoid fx; was in rehab ~1wk before returning home. Precautions: cervical spine precautions (Alpha J) Past Medical History: Diagnosis Date ??? Anxiety ??? COPD (chronic obstructive pulmonary disease) ??? Diverticulitis ??? End stage COPD ??? Hyperlipemia ??? Hypertensive disorder Psychosocial: Patient Behaviors: Cooperative;Calm;Confused PLOF: Pt is a questionable historian at this time. Per pt, she has assistance from her daughter with tub/shower transfer. Sits on shower chair while daughter assists with bathing. Pt able to completerest of ADLs on own. Spouse assists with IADLs Home Situation: Type of Residence: Private Residence Lives with:: Significant Other Home Structure: One Story;Basement(laundry in basement) Steps to Enter: 8(3+5) Bathroom : Tub/Shower Combo Equipment At Home: Chair-Shower;Hand Held Shower;Home O2 Prior Level of Function: Mobility: Ambulate-In Home ;Independent;Without Assistive Device Fallen Within 6 Mos: ( 3 or 4 ) Have Help at Home?: Yes, there is help at home now How often is assistance provided?: daughter helps with bathing and enter/exit tub Level of Help Sufficient?: (TBD) Oxygen at Home: 3L Activity at Home: Sedentary Who manages medications?: self, from pillbox Vision: Corrected with glasses(reading) Hearing Exceptions: Significant impairment on the left;Significant impairment on the right(difficulites wearing hearing aides) OBJECTIVE: Cognition: Level of Consciousness-Adult: Alert Cognition: Attention/concentration-decreased;Follows one step commands;Processing-delayed;Judgement-decreased;Safety awareness- decreased;Memory impairment-short term Functional Level of Impairment: Functional Level of Comprehension: Supervision, set-up, cues Functional Level of Expression: Supervision, set-up, cues Functional Level of Social Interaction: Supervision, set-up, cues Functional Level of Memory: Minimal assistance (minimal prompting) pt expends 75% or more effort Functional Level of Problem Solving: Minimal assistance (minimal prompting) pt expends 75% or more effort ADLs (Based on observation and clinical judgement): Feeding: Activity Does Not Occur Oral Facial Hygiene: Minimal Assistance(seated) Bathing: Moderate Assistance(seated) Upper Body Dressing: Stand By Assist Lower Body Dressing: Moderate Assistance;Maximal Assistance Toileting: Total Assistance(catheter) Transfers: Supine to Sit: Minimal Assistance Sit to Stand: Minimal Assistance Stand to Sit: Minimal Assistance Bed to Chair: Minimal Assistance to Right Type of Transfer: Stand Pivot Transfer(with handheld assist) Activity Tolerance/Vitals: Activity Tolerance: Requires rest breaks O2 L/M: 3 L/Minute O2 DEVICE: Nasal Cannula Position/Activity BP HR SPO2 RR Suppl O2 Sitting in bed 204/80 (121) 88 98 17 3L NC Activity 208/70 (152) 90s 90s 3L NC Sitting in recliner 211/86 (124) 92 93 22 3L NC INTERVENTION/ASSESSMENT: Treatment this date: Initial OT evaluation completed including bathing, dressing, grooming, and functional mobility/transfers in addition to BUE ROM/strength testing in order to establish goals for D/C. Pt sitting in bed upon OT arrival; agreeable to OT session. Pt very [place] throughout session (baseline). Pt reports dizziness with rolling in bed to help RN change linens; less dizzy with supine>sit and mobility attempts. Pt had no recall of cervical precautions except always needing to wear Alpha J. Pt able to take several steps with hand hold assist to recliner with min A. Pt needs assistance with ADLs especially LB dressing d/t generalized weakness. --Problem list: Decreased strength, decreased ROM, decreased endurance, decreased balance, impairedfunctional mobility, decreased coordination, impaired safety awareness, cognitive impairment, impaired cardiopulmonary function, decreased knowledge of condition, decreased pain tolerance, need for fa tony/caregiver training. --Functional limitation: Decreased independence with transfers, decreased ability to perform ADLs, decreased UE strength, decreased safety with functional mobility. --Rationale for therapy: Patient will benefit from OT to address the above issues. Patient will be seen for: ADL retraining, functional transfers, balance, endurance, exercise. Pt educated in OT plan of care, fall precautions, and benefits of participating in ADL tasks. Refer to the Plan of Care for OT goals. Please refer to Filed Flowsheet OT Evaluation for further details. RECOMMENDATIONS/PLAN: Pt would benefit from continued OT (AR vs SNF) at d/c to maximize ADL and functional mobility/transfer independence and safety. OT will continue to follow during the acute stay.Progress as tolerated. All vitals stable throughout visit; all lines, monitors, IV's and equipment in place and intact preand post visit. Nursing notified. If this is the last Occupational Therapy visit, this serves as the discharge summary. Chasity Maldonado, ODALYSD, OTR/L Ascom [phone] * Josue Tabitha - 11/09/2020 11:10 AM CDT CLINICAL SWALLOW EVALUATION Speech Pathology: Order received and chart reviewed. Clinical Dysphagia Evaluation completed. Please refer to Clinical Swallow Study doc flowsheet for full results. Pt is a 80 y/o female with a h/o COPD, chronic hypoxemic hypercarbic respiratory failure on home O2, and HTN presented to [facility] hypoxic and altered. Pt was intubated 4/2 and extubated 11/08 @ 1000. S: Pt was seen sitting upright in chair awake, alert and cooperative. Pt was wearing a neck brace d/t fracture in her spine per RN. O: No significant findings in the Oral [facility] exam. Pt's vocal quality was slightly hoarse. Pt participated in trials of ice chips, thin liquids, puree and regular solids. Oral phase appeared WFL, no oral residue noted across trials. Unable to palpate swallow d/t neck brace. No clear signs of aspiration were noted and Pt's vitals remained steady across trials. Recommend Regular (7) solids and Thin (0) liquids as no dysphagia is suspected. No further acute ST is warranted at this time. Patient/Caregiver goals: I want to get this thing out of my nose Assessment: Primary Diagnostic Impression - Oral: No dysphagia Primary Diagnostic Impression - Pharyngeal: No dysphagia suspected Risk For Aspiration: None PRATT Assessment: MASA Score: 186 Dysphagia Severity Level: Nil abnormality detected (178 - 200) Risk for Aspiration: Nil abnormality detected (170 - 200) Risk of aspiration is reduced with the use of diet modification/compensatory strategies. Recommend: 1. Diet Solids Recommendation: Regular/Regular (7) 2. Diet Liquids Recommendation: No Liquid Consistency Restrictions 3. Recommended Form of Meds: As Tolerated Strategies Include: ?? Compensatory Swallowing Strategies: 90 Degrees elevation for all oral intake;Eat/Feed slowly;Small bites/sips Results discussed with: Results discussed with:: Patient;Nursing Follow Up: Follow Up: No further speech therapy warranted at this time. Please re-refer if patient's status changes. PPE: PPE worn by staff: eye protection;gloves;mask - N95;mask - procedural PPE worn by patient: gown - patient, clean If this is the last Speech Therapy visit, this serves as the discharge summary. Thank you for this referral. MATT Lu Student 11/09/2020 11:10 AM [phone] Associated attestation - Margie Blake SLP - 11/09/2020 11:20 AM CDT Patient was evaluated in conjunction with this clinician and 100% supervision provided. I agree with this note and plan of care. All pertinent aspects of case discussed. CLOTILDE Hanson-COPY DIRECTOR [phone] * Romie Anderson RN - 11/09/2020 11:05 AM CDT 0715 received bedside report from video specialist RN. Pt in bed with hard cervical collar in place, napping off and on. 0815 awake, alert, [place], CAM negative. Follows simple commands. Forgetful requires frequent reminders. [address] Clinton and ICU team. FMS in place with slight leak, micheline care, deflated and less water 40 ml instilled. 0940 PT/OT at bedside for Tx. Pivot to chair, with chair alarm in place. 1045 ST at BS. 1100 regular diet ordered, assisted pt with menu selection. 1200 consumed ~20% of late breakfast. No acute distress. 1600 remains in chair, naps off and on. 1700 repositioned in the chair. Ordered dinner. Calm and no distress. Hard collar remains in place. 1840 stand, pivot to bed. Guerrero and FMS removed as ordered. Appetite is fair, will maintain dobhoff for now for possible supplemental TF/nutrition. 1910 safely in bed, watching TV with call light in hand. Bed exit alarm on. Report to yury nunn RN. * Dustin Jackson MD - 11/09/2020 9:46 AM CDT Internal Medicine Resident ICU Progress Note Admission Date: 11/04/2020 Hospital Day: 5 Attending: Dr. Clinton Resident/Water Valve Repairer: Drs. Hernandez/Manuel Code Status: Full Code Events since last progress note: No reported events overnight. Morning labs consistent of contraction alkalosis. Noticed to be hypertensive resumed home dose metoprolol at a low dose. On O2 in NC at 2 lts/min. Baseline at home. Patient complaints of neck pain. Scheduled Oxycodone. No further complaints. Hospital course summary: The patient is a 80 y/o female with a h/o COPD, chronic hypoxemic hypercarbic respiratory failure on home O2 (3-4 L), moderate to severe pulmonary hypertension (was started on sildenafil, could not tolerate - developed leg edema), portacath in situ, falls, type lll odontoid fracture with fractures of the right and left posterior arches of C1,sprain of nuchal ligament and,compression deformities involving T12 and T11 , and HTN presented to [facility] for hypoxia ( saturating 80s at home) and altered mental status. Pt was reportedly discharged from the hospital with PNA and was home for 2days. She was brought to the ED at [place] where her WBC was elevated, COVID rapid Ag negative, Head CT negative, CXR with perihilar infiltrates, and her PCO2>100. She was intubated and transferred to [facility] for further management. She is in a C-collar and details are limited but she apparently has a new cervical spine fracture. 09/10/2020 - 09/16/2020 was admitted at [facility] (transferred form [facility] with h/o fall and neck pain) Type III Odontoid fracture ,was negative for orthostasis but there was significant concernfor , advised to follow up with neurosurgery after 6 weeks. As per daughter patient transferred to rehab for one week, then home. Spoke with daughter, the patient did not follow up with neurosurgery, she was at her baseline afterhospital discharge,was not discharged on abx, started having worsening sob and AMS one day prior topresent at [facility]. Patient successfully extubated on 11/07. Back to baselineO2 NC at 2 lts/min. Patient overall stable. Transferred to TCU. Review of Systems Constitutional: Negative. HENT: Negative. Eyes: Negative. Respiratory: Negative. Cardiovascular: Negative. Gastrointestinal: Negative. Genitourinary: Negative. Musculoskeletal: Positive for neck pain. Skin: Negative. Neurological: Negative. Endo/Heme/Allergies: Negative. Psychiatric/Behavioral: Negative. OBJECTIVE Unable to calculate weight change. Intake/Output Summary (Last 24 hours) at 11/09/2020 0947 Last data filed at 11/09/2020 0849 Gross per 24 hour Intake 1313.59 ml Output 2195 ml Net -881.41 ml Temp (24hrs), Av.8 ??F (37.1 ??C), Min:98.1 ??F (36.7 ??C), Max:99.5 ??F (37.5 ??C) Vitals: 11/09/20 0500 11/09/20 0600 11/09/20 0700 11/09/20 0923 BP: 176/88 166/61 168/67 Pulse: 85 91 84 88 Resp: 17 14 13 17 Temp: SpO2: 99% 100% 96% 98% Weight: Height: Physical Exam Constitutional: Interventions: She is intubated. Cardiovascular: Rate and Rhythm: Normal rate and regular rhythm. Pulses: Normal pulses. Heart sounds: Normal heart sounds. Pulmonary: Effort: Pulmonary effort is normal. She is intubated. Breath sounds: Rales present. Abdominal: General: Bowel sounds are normal. Palpations: Abdomen is soft. Musculoskeletal: Normal range of motion. Skin: General: Skin is warm. Capillary Refill: Capillary refill takes less than 2 seconds. Neurological: Mental Status: She is oriented to person, place, and time. Mental status is at baseline. Comments: Bedridden. Psychiatric: Mood and Affect: Mood normal. MAR reviewed: yes Antimicrobial day: Labs: I have reviewed results from the last 24 hours and are remarkable for the following: Component Name 11/09/20 0526 11/08/20 0405 11/07/20 0327 WBC 11.3* 9.0 9.7 RBC 3.49* 3.28* 2.99* HGB 10.2* 9.4* 8.7* HCT 33.6* 30.6* 28.4* MCV 96.3 93.3 95.0 MCHC 30.4* 30.7* 30.6* PLTCOUNT 227 219 235 NEUTPCT 85.3* 83.8* 92.0* LYMPHPCT 7.1* 8.1* 4.5* BASOPHILPCT 0.1 0.1 0.1 GRANSIMMPCT 0.9 0.7 0.4 NEUTABS 9.64* 7.52* 8.92* LYMPHABS 0.80* 0.73* 0.44* BASOABS 0.01 0.01 0.01 Component Name 11/09/20 0511/07/207 11/06/20 0420 SODIUM 144 141 142 POTASSIUM 4.8 4.1 3.9 CHLORIDE 97* 97* 97* CO2 43* 37* 40* BUN 27* 32* 21* CREATININE 0.62 0.64 0.61 GLUCOSE 135* 192* 182* CALCIUM 9.1 8.4 8.5 ALT 86* - 28 ALKPHOS 68 - 51 AST 22 - 9 TBIL 0.5 - 0.2 TPROT 6.0* - 5.2* EGFR >60 >60 >60 EGFRAFR >60 >60 >60 ALBUMIN 3.4 2.9* 2.9* Component Name 11/08/20 1524 11/08/20 0857 11/07/20 0729 FIO2 - 30 30 PH 7.39 7.41 7.30* PCO2 70* 64* 92* BE 13.6* 12.7* 14.2* HCO3 41* 39* 44* PO2 73* 67* 58* O2SAT 94 93 85* Micro: Microbiology Results (Displays last 21 days for this encounter ONLY) Procedure Component Value - Date/Time CULTURE MRSA [[id number]] (Normal) Collected: 11/05/20 1154 Lab Status: Final result Specimen: Microbiology from Nasal Updated: 11/07/20 0640 Culture Negative for methicillin-resistant Staphylococcus aureus (MRSA) SARS-COV-2 (COVID-19) IN HOUSE [[id number]] (Normal) Collected: 11/05/20 0840 Lab Status: Final result Specimen: Microbiology from Nasopharyngeal Updated: 11/05/20 1404 COVID-19 PCR Not detected Narrative: This nucleic acid amplification assay performance was validated by [facility]. This test has been authorized by the Food and Drug administration (FDA)under an Emergency??Use Authorization (EUA). This test has been validated in accordance withthe FDA's guidance document Policy for Diagnostic Testing in Laboratories Certified to perform High Complexity Testing under CLIA prior to Emergency Use Authorization for Coronavirus Disease-2019 during the Public Health Emergency issued on October 03, 2019. FDA independent review of this validation is pending. This test is only authorized for the duration of time the declaration that circums tances exist justifying the authorization of emergency use of in vitro diagnostic tests for detection of SARS-CoV-2 virus and/or diagnosis of COVID-19 infection under section 564(b)(1) of the Act, 21U.S.C 360bbb-3 (b)(1), unless the authorization is terminated or revoked sooner. Fact Sheets for this EUA assay are available upon request. CULTURE SPUTUM+GRAM STAIN [[id number]] Collected: 11/04/202328 Lab Status: Final result Specimen: Microbiology from Sputum Updated: 11/07/20 0746 Culture No growth Gram Stain <10 per low power field Squamous epithelial cells <10 per low power field Polymorphonuclear cells No organisms seen CULTURE BLOOD [[id number]] Collected: 11/04/202218 Lab Status: Preliminary result Specimen: Blood Peripheral Updated: 11/07/20 0138 Culture No growth CULTURE BLOOD [[id number]] Collected: 11/04/20 2212 Lab Status: Preliminary result Specimen: Blood Peripheral Updated: 11/07/20 0138 Culture No growth LEGIONELLA ANTIGEN URINE [[id number]] (Normal) Collected: 11/04/20 2154 Lab Status: Final result Specimen: Urine Updated: 11/05/20 0733 Legionella Antigen Urine Negative Narrative: This assay detects Legionella pneumophila serogroup one (1) antigen. A negative test result does not rule out the possibility of Legionella infection due to other serogroups or species of Legionella.A positive result may indicate a recent or remote infection with serogroup 1. STREP PNEUMONIAE ANTIGEN URINE [[id number]] (Normal) Collected: 11/04/202 Lab Status: Final result Specimen: Urine Updated: 11/05/20731 Streptococcus pneumoniae Antigen Urine Negative Narrative: Patients who have received the Streptococcus pneumoniae vaccines may test positive in the 48 hours following vaccination. It is recommended to avoid testing within five days of receiving vaccination.Testing pediatric patients is discouraged because of their high rates of nasal colonization with Streptococcus pneumoniae leading to false positive results. Samples from patients taking antibiotics for more than 24 hours may cause false negatives. Imaging: I have reviewed imaging studies from the last 24 hours and is summarized below: No images reported in last 24 hours. ASSESSMENT/CLINICAL REASONING Acute on chronic hypoxic and hypercapnic respiratory failure -likely 2/2 COPD exacerbation C1 fracture -Stable on C-collar. Pulmonary hypertension HTN PLAN: NEURO: Sedation: None. Analgesia: Discontinue fentanyl infusion. Fentanyl 25 mcg Q1H PRN severe pain. Oxycodone 10 mg ET Q6H. Amitriptyline 25 mg Et QD. Clonazepam1 mg ET QHS. Buspirone 5 mg ET BID. Spoke with Amparo Chin ( Neuro-surgery outpatient clinic), the patient has schedule on November 03 which was canceled, care was not established who recommended patient may be transferred to [facility], or discharged for outpatient follow up once medically stable and make appointment for follow up. PULM: Ventilation: O2 on NC at 2 lts/min. Baseline at home. DUO-NEB Q6H. Symbicort 2 puff BID. Guaifenesin 10 mg ET TID. Montelukast 10 mg ET QHS. Prednisone 50 mg ET QD x 4 doses. Discontinued methylprednisolone. CV: Pressors: None. Metoprolol 25 mg ET BID. Hydralazine 10 mg Q6H PRN SBP >170 mm/Hg. RENAL: Fluids: none ID: ABX: Cefepime 2 grams IV Q8H. Day 5. Discontinue today after last dose. ENDO: Insulin: Low dose correctional scale. POC glucose Q6H. Hypoglycemic protocol. HEM-ONC: DVT prophylaxis: Heparin 5,000 U SC BID. GI: Diet/TF: TF with Jevity 1.2 Fidel. Goal 50 ml/h with 1 protein flush and free water flushes of 100 mlQ6H. Stress ulcer prophylaxis: Famotidine 20 mg IV BID. PT/OT/ST/ACTIVITY: As tolerated. D/w ICU Attending: Dr. Mary Beth Jackson MD 11/09/2020 9:47 AM PGY-1 Internal Medicine. [facility]. Associated attestation - Tono Clinton MD - 11/09/2020 1:58 PM CDT [facility] Teaching attending note Date of Service 11/09/2020 I have seen and examined the patient. I have reviewed the chart, labs, imaging and other pertinent clinical data. I have discussed the patient's care plan with the Resident and agree with the evaluation and plan. If needed, additional information is added below. Assessment/Plan- 80 y/o female with a h/o COPD, chronic hypoxemic hypercarbic respiratory failure on home O2 presenting with AMS and resp failure 1. Septic shock 2. HCAP 3. Acute on chronic respiratory failure with hypoxia and hypercarbia 4. AECOPD 5. Recent cervical spine fracture - Extubation 11/08 - Off pressors - Continue scheduled oxycodone given home usage, prn Fentanyl - Cefepime for 5 days, finished - Steroids for COPD exacerbation- 10 days - Start oral BP meds - Continue C Collar till NSGY outpatient eval - H2B, Heparin, TF on hold till swallow eval - Transfer out of ICU Tono Clinton MD11/09/2020 1:55 PM * Dustin [place] MD - 11/09/2020 9:40 AM CDT Transfer Note 11/09/2020 9:40 AM Briefly, this is Phoebe Oro a 80 year old female admitted with AHRF due to COPD exacerbation. Patient is medically stable and ready for transfer to TCU. Verbal sign out provided to Dr. Norman Garcia who accepted the patient on behalf of Dr. Altaf Arias. All the pertinent aspects of case including presentation, management and treatment plan were discussed in detail. All the questions were answered satisfactorily. Dustin [place] MD 11/09/2020 9:41 AM PGY-1 Internal Medicine. * Astrid Helm, PT - 11/09/2020 9:30 AM CDT Patient OK to be seen for evaluation per nursing. Physical Therapy Evaluation complete. See Filed Flowsheet under Summary for details. Pt resting in bed at start of therapy session. Precautions: Recent Type III Odontoid Fx 09/10 after fall at home; currently in [facility]. [place] Fall Risk Recommendations: Patient would benefit from continued physical therapy to address the above deficits in balance, functional mobility and ambulation to return to previous living situation. PT Discharge Recommendations: Longterm Facility;Inpatient Rehab [facility] Basic mobility score for this patient is [facility] 0-100% Score (Calculated): 68.66% degree of impairment with higher scores indicating patient may benefit from further inpatient services. Admit: Pt presented to ED with complaint of hypoxia and altered mental status. Pt admitted with diagnosis of septic shock, HCAP, and acute on chronic respiratory failure. Comorbidities: heart conditions(Type III odontoid Fx 09/2020) Clinical Presentation: unpredictable PMH: Past Medical History: Diagnosis Date ??? Anxiety ??? COPD (chronic obstructive pulmonary disease) ??? Diverticulitis ??? End stage COPD ??? Hyperlipemia ??? Hypertensive disorder Subjective: Pt alert and agreeable to therapy this AM. Pt states she lives with her SO in a 1 story home with abasement with 3+5 steps to enter the home. Pt states her daughter helps with bathing. Pt reports 3-4 falls recently. Pt states she was ambulatory without an assistive device prior to admission. Prior Level of Function: Type of Residence: Private Residence Lives with:: Significant Other Home Structure: One Story;Basement(laundry in basement) Steps to Enter: (3+5) Mobility: Ambulate-In Home ;Independent;Without Assistive Device Fallen Within 6 Mos: ( 3 or 4 ) Equipment At Home: Chair-Shower;Hand Held Shower;Home O2 Have Help at Home?: Yes, there is help at home now How often is assistance provided?: daughter helps with bathing and enter/exit tub Problem list and comorbidities: decreased strength, decreased ROM, decreased endurance, decreased balance, decreased coordination Functional limitation: Decreased independence with transfers and gait; decreased safety with functional mobility. Rationale for therapy: Patient will benefit from PT to address the above issues. Patient will be seen for: exercise, transfers, gait training, balance, and endurance. Patient/family stated goal: To go home Objective: Cognition: Level of Consciousness-Adult: Alert Mobility: Supine to Sit: Minimal Assistance Sit to Supine: Activity Does Not Occur Sit to Stand: Minimal Assistance Stand to Sit: Minimal Assistance Bed to Chair: Minimal Assistance to Right Type of Transfer: Stand Pivot Transfer(with handheld assist) Ambulation: Level of Assistance: Activity Does Not Occur Positioning/Skin Prevention: Repositioned: Up in Chair/Stretcher Chair(with chair alarm on) Activity Tolerance and Oxygen Requirements: O2 L/M: 2 $ O2 DEVICE: Nasal Cannula $ Vital Signs: Supine at Rest Sitting EOB Post Therapy SpO2: 98 % 93% Pulse: 88 86 92 Resp: BP: 204/80 208/76 211/86 MAP: 121 152 124 RN aware of patient's BP. PERME Score: 18 Treatment this date: Pt completed supine to sit with minimal assist with fair sitting balance on EOB. Pt completed sit to and from stand with minimal assist with handheld assist in standing. Pt took several small steps from bed to recliner with with minimal with handheld assist. Pt resting in recliner with phone and call light in reach. Nursing aware, and chair alarm on. Education Provided: Role of PT; importance of increasing activity as tolerated; NursingSalvador, aware of all the above. Call light in reach upon PT departure. Refer to Plan of Care for PT goals. Assessment: Pt tolerated therapy session fair with decreased functional mobility. If this is the last Physical Therapy visit, this serves as the discharge summary. All vitals stablethroughout visit; All lines, monitors, IV's, equipment in place and intact pre and post visit. PPE Worn this date: PPE worn by staff: eye protection;gloves;mask - procedural * Shwetha Cross RN - 11/08/2020 11:19 PM CDT Problem: Safety related to restraint use Goal: Absence of injury while restrained Outcome: Progressing Problem: Potential for Urinary Catheter-Associated Infection Goal: Signs and Symptoms of urinary catheter-associated infection are avoided Outcome: Progressing Goal: Normal urinary patterns are established within parameters of age and disease process Outcome: Progressing Problem: Fall Risk Goal: Fall risk and fall related injury risk are minimized (interventions related to the fall risk can be found in the flowsheet documentation) Outcome: Progressing Problem: Oxygenation/Respiratory Function Goal: Patent airway Outcome: Progressing Goal: Resp rate/effort will be within specified limits Outcome: Progressing Problem: Glycemia Imbalance Goal: Clinical indication of glycemia balance is achieved Outcome: Progressing Goal: Continuum of care needs are met for Glycemic Management Outcome: Progressing Problem: Skin Integrity Goal: Skin integrity is maintained or improved Outcome: Progressing * Best [place] RCP - 11/08/2020 8:14 PM CDT Ms Dawn will maintain a patent airway.Best [place] RCP 11/08/2020 8:14 PM * Brittnee Grover RN - 11/08/2020 6:27 PM CDT Received pt intubated , placed on SBT and tolerated it well ,extubated at 0938am , placed on 3 liters of O2 /NC- keeping O2 sats >88%, HOb elevated at all times,pt is obnly oriented to her name -reoriented to time and place, intermittently restless, encouraged TCDB every 1-2 hours while awake, pt attempted to pull dobbhoff tube, reoriented to her environment and plan of care, OOB to chair [id number] until almost 18pm- tolerated activity well.-pt is more alert at this time oriented x 3. * Adenike Mancilla SLP - 11/08/2020 2:20 PM CDT Speech Pathology: Order received and chart review completed. Unable to complete visit at this time as Pt is not appropriate for PO trials. Per RN, Pt is currently receiving precedex and is too lethargic for PO. Will re-attempt visit at later date/time as schedule permits. If this is the last Speech Therapy visit, this serves as the discharge summary. Thank you for this referral. Adenike Daley MS [facility]-COPY DIRECTOR [phone] * Brittnee Grover RN - 11/08/2020 12:38 PM CDT Problem: Safety related to restraint use Goal: Absence of injury while restrained Outcome: Progressing Problem: Oral Intake: Inadequate oral intake Description: Estimated Needs: KCAL: [phone] kcals(15-20 kcals/kg of ABW) Protein (g): 78-131 gm(1.2-2.0 gm/kg of ABW) Fluid (ml): 1 ml/kcal Recommended Access Route: TF Goal: Total intake will meet estimated nutrient needs Outcome: Progressing Note: Maintained on NPO s/p extubation. Problem: Potential for Urinary Catheter-Associated Infection Goal: Signs and Symptoms of urinary catheter-associated infection are avoided Outcome: Progressing Note: Guerrero catheter care performed every shift and prn. Goal: Normal urinary patterns are established within parameters of age and disease process Outcome: Progressing Problem: Fall Risk Goal: Fall risk and fall related injury risk are minimized (interventions related to the fall risk can be found in the flowsheet documentation) Outcome: Progressing Problem: Oxygenation/Respiratory Function Goal: Patent airway Outcome: Progressing Note: Secretions suctioned orally prn . Continued on o2 at 3liters/NC. Goal: Resp rate/effort will be within specified limits Outcome: Progressing Problem: Glycemia Imbalance Goal: Clinical indication of glycemia balance is achieved Outcome: Progressing Note: Accucheck performed every 6 hours covered with sliding scale/ MDs order. Goal: Continuum of care needs are met for Glycemic Management Outcome: Progressing Problem: Skin Integrity Goal: Skin integrity is maintained or improved Outcome: Progressing * Dede Fernando OT - 11/08/2020 12:03 PM CDT Occupational Therapy Attempted to see patient this morning, per discussion w/ PT, patient was asked to be on hold from RN 2/2 agitation. Will re-attempt at a later time/date as schedule permits. Thank you [phone] * Astrid Helm, PT - 11/08/2020 9:54 AM CDT Attempted to see patient for physical therapy. Unable to complete visit due to RN requested to holddue to increased agitation at rest. Will attempt to see patient at a later date. * Qian Sharma RCP - 11/08/2020 9:41 AM CDT was extubated at 0935 to 3L NC. No stirdor was heard, breath sounds still clear and equal. Pt tolerating it well. RN at bedside. RT will continue to monitor * Madeline Savage, LESLIE/LD - 11/08/2020 8:22 AM CDT CLINICAL NUTRITION Pt discussed on rounds today. Med/Surg History and Clinical Diagnoses: septic shock, HCAP, acute on chronic respiratory failure with hypercarbia, acute exacerbation of COPD, recent cervical spine fracture; h/o anxiety, COPD, diverticulitis, HLD Diet/TF Current diet order: NPO Current tube feeding order: Vital High Protein at 50 ml/hr P.O.Intake for the past 48 hrs: No data recorded % Oral Supplement Intake:No data recorded Food Allergies: No known food allergies Drips: propofol (56 kcal/day), fentanyl, precedex Blood Sugar Range Past 24 hours: Glucose Bedside (mg/dL) Av mg/dL Min: 186 mg/dL Max: 208 mg/dL Most Recent Blood Glucose Values: Patient Vitals for the past 8 hrs: Glucose Bedside (mg/dL) 11/08/20 0522 208 mg/dL Skin/Wound: WDL Stools: Last BM (Date): 11/07/20 Stools (# of stools): 1 (11/07/20399) Stool Appearance : Soft;Loose (11/07/20 0400) Stool Amount: Smear (11/07/20399) Bowel Sounds (All Quadrants): Active Issues of the day were discussed: Tolerating TF at goal rate. Smear yesterday, on miralax daily. Plan to give lactulose. Low grade temperature overnight. Dose lasix today. On spontaneous. Easily agitated with care, RASS -1 to +3. Opens eyes, follows some commands. Possible extubation today, plan tohold tube feeding (restart if unable to extubate). Brittaney Mosley RD/LALA, MS 11/08/2020 8:27 AM Ascom [phone] * Md Yousuf Gilmore MD - 11/08/2020 6:55 AM CDT Internal Medicine Resident ICU Progress Note Admission Date: 11/04/2020 Hospital Day: 4 Attending: Tono Rogers Resident/Water Valve Repairer: Cindy / Deirdre Code Status: Full Code Events since last progress note: Tmax 100.2, alert, following command Off Levophed,max BP 185/65 uop 1.5 L, I/o +ve 2 L /24 hrs, got lasix 40 yesterday Leucocytosis resolved On SBT, tolerating well Hospital course summary: The patient is a 80 y/o female with a h/o COPD, chronic hypoxemic hypercarbic respiratory failure on home O2 (3-4 L), moderate to severe pulmonary hypertension (was started on sildenafil, could not tolerate - developed leg edema), portacath in situ, falls, type lll odontoid fracture with fractures of the right and left posterior arches of C1,sprain of nuchal ligament and,compression deformities involving T12 and T11 , and HTN presented to [facility] for hypoxia ( saturating 80s at home) and altered mental status. Pt was reportedly discharged from the hospital with PNA and was home for 2days. She was brought to the ED at [place] where her WBC was elevated, COVID rapid Ag negative, Head CT negative, CXR with perihilar infiltrates, and her PCO2>100. She was intubated and transferred to [facility] for further management. She is in a C-collar and details are limited but she apparently has a new cervical spine fracture. 09/10/2020 - 09/16/2020 was admitted at [facility] (transferred form [facility] with h/o fall and neck pain) Type III Odontoid fracture ,was negative for orthostasis but there was significant concernfor , advised to follow up with neurosurgery after 6 weeks. As per daughter patient transferred to rehab for one week, then home. Spoke with daughter, the patient did not follow up with neurosurgery, she was at her baseline after hospital discharge,was not discharged on abx, started having worsening sob and AMS one day prior to present at [facility]. Remain on vent, tolerating SBT well . Review of Systems Unable to perform ROS: Intubated OBJECTIVE 3 lb 8 oz Intake/Output Summary (Last 24 hours) at 11/08/2020 0655 Last data filed at 11/08/2020 0607 Gross per 24 hour Intake 3202.11 ml Output 1665 ml Net 1537.11 ml Temp (24hrs), Av.7 ??F (37.6 ??C), Min:98.4 ??F (36.9 ??C), Max:100.2 ??F (37.9 ??C) Vitals: 11/08/20 0515 11/08/20 0530 11/08/20 0545 11/08/20 0600 BP: (!) 182/60 175/65 162/61 158/50 Pulse: 41 49 43 63 Resp: 13 14 14 14 Temp: 100 ??F (37.8 ??C) 100 ??F (37.8 ??C) 100 ??F (37.8 ??C) 99.9 ??F (37.7 ??C) SpO2: 97% 97% 96% 92% Weight: Height: Physical Exam Constitutional: Interventions: She is intubated. Cardiovascular: Rate and Rhythm: Regular rhythm. Bradycardia present. Heart sounds: No murmur. No friction rub. No gallop. Pulmonary: Effort: She is intubated. Breath sounds: No wheezing, rhonchi or rales. Abdominal: General: Bowel sounds are normal. Palpations: Abdomen is soft. Tenderness: There is no guarding. Musculoskeletal: Right lower leg: No edema. Left lower leg: No edema. Skin: General: Skin is warm. Coloration: Skin is not jaundiced or pale. Findings: No erythema. MAR reviewed: yes Antimicrobial day: Labs: I have reviewed results from the last 24 hours and are remarkable for the following: Recent Labs Component Name 11/08/20 0405 11/07/2032611/06/200 WBC 9.0 9.7 12.9* RBC 3.28* 2.99* 3.02* HGB 9.4* 8.7* 8.7* HCT 30.6* 28.4* 27.8* MCV 93.3 95.0 92.1 MCHC 30.7* 30.6* 31.3 PLTCOUNT 219 235 280 NEUTPCT 83.8* 92.0* 91.3* LYMPHPCT 8.1* 4.5* 5.8* BASOPHILPCT 0.1 0.1 0.0 GRANSIMMPCT 0.7 0.4 0.5 NEUTABS 7.52* 8.92* 11.81* LYMPHABS 0.73* 0.44* 0.75* BASOABS 0.01 0.01 0.00 Recent Labs Component Name 11/07/2032611/06/20 0420 11/05/20 0433 11/04/20 2054 SODIUM 141 142 141 141 POTASSIUM 4.1 3.9 3.9 4.0 CHLORIDE 97* 97* 95* 96* CO2 37* 40* 41* 41* BUN 32* 21* 19 20 CREATININE 0.64 0.61 0.59 0.65 GLUCOSE 192* 182* 156* 159* CALCIUM 8.4 8.5 8.2* 8.3* ALT - 28 - 55 ALKPHOS - 51 - 57 AST - 9 - 43* TBIL - 0.2 - 0.5 TPROT - 5.2* - 5.0* EGFR >60 >60 >60 >60 EGFRAFR >60 >60 >60 >60 ALBUMIN 2.9* 2.9* - 2.8* Recent Labs Component Name 11/04/202053 LACTICACID 1.1 Recent Labs Component Name 11/04/202153 COLORUA Yellow CLARITYUA Clear SPECGRAVUA 1.017 PHUA 6.0 PROTEINUA 1+* BLOODUA 1+* LEUKOCYTEUA Negative NITRITEUA Negative GLUCOSEUA Negative KETONEUA Negative BILIRUBINUA Negative UROBILINUA Negative WBCUA 0-5 RBCUA 3-5 MUCUSUA 1+ BACTUA None Seen Recent Labs Component Name 11/07/20 0729 11/06/20 0523 11/04/20 2045 FIO2 30 25 35 PH 7.30* 7.46* 7.52* PCO2 92* 58* 55* BE 14.2* 14.9* 19.0* HCO3 44* 41* 44* PO2 58* 56* 64* O2SAT 85* 90 94 Recent Labs Component Name 11/05/20 0801 TROPONINI <0.010 Micro: Microbiology Results (Displays last 21 days for this encounter ONLY) Procedure Component Value - Date/Time CULTURE MRSA [[id number]] (Normal) Collected: 11/05/20 1154 Lab Status: Final result Specimen: Microbiology from Nasal Updated: 11/07/20 0640 Culture Negative for methicillin-resistant Staphylococcus aureus (MRSA) SARS-COV-2 (COVID-19) IN HOUSE [[id number]] (Normal) Collected: 11/05/20 0840 Lab Status: Final result Specimen: Microbiology from Nasopharyngeal Updated: 11/05/20 1404 COVID-19 PCR Not detected Narrative: This nucleic acid amplification assay performance was validated by [facility]. This test has been authorized by the Food and Drug administration (FDA)under an Emergency??Use Authorization (EUA). This test has been validated in accordance withthe FDA's guidance document Policy for Diagnostic Testing in Laboratories Certified to perform High Complexity Testing under CLIA prior to Emergency Use Authorization for Coronavirus Disease-2019 during the Public Health Emergency issued on October 03, 2019. FDA independent review of this validation is pending. This test is only authorized for the duration of time the declaration that circums tances exist justifying the authorization of emergency use of in vitro diagnostic tests for detection of SARS-CoV-2 virus and/or diagnosis of COVID-19 infection under section 564(b)(1) of the Act, [place] 360bbb-3 (b)(1), unless the authorization is terminated or revoked sooner. Fact Sheets for this EUA assay are available upon request. CULTURE SPUTUM+GRAM STAIN [[id number]] Collected: 11/04/202328 Lab Status: Final result Specimen: Microbiology from Sputum Updated: 11/07/20 0746 Culture No growth Gram Stain <10 per low power field Squamous epithelial cells <10 per low power field Polymorphonuclear cells No organisms seen CULTURE BLOOD [[id number]] Collected: 11/04/202218 Lab Status: Preliminary result Specimen: Blood Peripheral Updated: 11/07/20137 Culture No growth CULTURE BLOOD [[id number]] Collected: 11/04/202211 Lab Status: Preliminary result Specimen: Blood Peripheral Updated: 11/07/20137 Culture No growth LEGIONELLA ANTIGEN URINE [[id number]] (Normal) Collected: 11/04/202153 Lab Status: Final result Specimen: Urine Updated: 11/05/20 0733 Legionella Antigen Urine Negative Narrative: This assay detects Legionella pneumophila serogroup one (1) antigen. A negative test result does not rule out the possibility of Legionella infection due to other serogroups or species of Legionella.A positive result may indicate a recent or remote infection with serogroup 1. STREP PNEUMONIAE ANTIGEN URINE [[id number]] (Normal) Collected: 11/04/202153 Lab Status: Final result Specimen: Urine Updated: 11/05/20 0732 Streptococcus pneumoniae Antigen Urine Negative Narrative: Patients who have received the Streptococcus pneumoniae vaccines may test positive in the 48 hours following vaccination. It is recommended to avoid testing within five days of receiving vaccination.Testing pediatric patients is discouraged because of their high rates of nasal colonization with Streptococcus pneumoniae leading to false positive results. Samples from patients taking antibiotics for more than 24 hours may cause false negatives. Imaging: I have reviewed imaging studies from the last 24 hours and is summarized below: Xr Chest 1vw Portable Result Date: 11/04/2020 Chest, one view portable DATE: 11/04/2020 at 1953 hours INDICATION: Intubation and hypoxia. FINDINGS:The endotracheal tube ends between the clavicles and tricia. The lungs are probably clear although there is questionable bilateral parahilar opacity. This may be artifactual due to patient positioning. No pneumothorax or pleural fluid collection. The heart size is probably normal but evaluation is l imited. 1. Intubated 2. Lungs probably clear CT Abd/Pelv on 08/23 moderate to severe compression fractures at T11 and T12 ASSESSMENT/CLINICAL REASONING Acute on chronic hypoxic and hypercapnic respiratory failure -likely 2/2 COPD exacerbation Distributive shock -secondary to suspected sepsis, concern for aspiration vs Health care associated pneumonia -neutrophilic leucocytosis - improving - normal lactic acid -negatives: blood cx, sputum stain and cx, legionella urine AG, strep pneumo urine Ag, COVD 19 PCR,MRSA nasal swab - off pressors Acute exacerbation of COPD -at OSH CO2 >100 PLAN: NEURO: Sedation: will titrate Propofol, precedex Analgesia: wean off fentanyl, continue scheduled oxycodone resumed amitriptyline 25 qd , clonazepam1 mg hs, reduced buspirone 5 mg bid, Spoke with Amparo Chin ( Neuro-surgery outpatient clinic), the patient has schedule on November 03 which was canceled, care was not established who recommended patient may be transferred to [facility], or discharged for outpatient follow up once medically stable and make appointment for follow up PULM: Ventilation: on SBT, possible extubation duonebs symbicort Solumedrol 40 bid started on 11/05 resumed montelukast CV: Pressors: off Levophed, MAP goal >65 RENAL: Fluids: none 40 mg iv Lasix today ID: ABX: cont cefepime for 5 days ( last dose on 11/09) ENDO: Insulin: Low dose SSI HEM-ONC: DVT prophylaxis: heparin GI: Diet/TF: continue TF Stress ulcer prophylaxis: pepsid PT/OT/ST/ACTIVITY: ordered D/w ICU Attending Md Yousuf Gilmore MD 11/05/2020 6:55 AM Associated attestation - Tono Clinton MD - 11/08/2020 2:49 PM CDT [facility] Teaching attending note Date of Service 11/08/2020 I have seen and examined the patient. I have reviewed the chart, labs, imaging and other pertinent clinical data. I have discussed the patient's care plan with the Resident and agree with the evaluation and plan. If needed, additional information is added below. Assessment/Plan- 80 y/o female with a h/o COPD, chronic hypoxemic hypercarbic respiratory failure on home O2 presenting with AMS and resp failure 1. Septic shock 2. HCAP 3. Acute on chronic respiratory failure with hypoxia and hypercarbia 4. AECOPD 5. Recent cervical spine fracture - Started SBT this am, tidal volumes improved compared to yday - ABG post SBT showed pCO2>60; will proceed with extubation - Off pressors - Added scheduled oxycodone given home usage - Continue Cefepime for 5 days - Continue steroids for COPD exacerbation - Continue C Collar till NSGY outpatient eval - H2B, Heparin, TF on hold The patient is critically ill with Resp failure. This life-threatening illness requires high complexity decision making for assessment and support, direct apsd-el-rlke evaluation, personal review of the medical record and laboratory and diagnostic imaging results, active titration of high-alert medications, adjustment of the ventilator , and application of advanced monitoring techniques. As a result, I personally spent 45 minutes providing critical care services exclusively to this patient. This was in exclusion of the time spent performing procedures (separately reported) or teaching. Tono Clinton MD11/08/2020 2:44 PM * Best [place] RCP - 11/08/2020 2:46 AM CDT Mr Dawn will maintain a patent airway.Best [place] RCP 11/08/2020 2:46 AM sbt started at 0513 10/ 30% * Shwetha Cross RN - 11/07/2020 8:41 PM CDT Problem: Safety related to restraint use Goal: Absence of injury while restrained Outcome: Progressing Problem: Potential for Urinary Catheter-Associated Infection Goal: Signs and Symptoms of urinary catheter-associated infection are avoided Outcome: Progressing Goal: Normal urinary patterns are established within parameters of age and disease process Outcome: Progressing Problem: Fall Risk Goal: Fall risk and fall related injury risk are minimized (interventions related to the fall risk can be found in the flowsheet documentation) Outcome: Progressing Problem: Oxygenation/Respiratory Function Goal: Patent airway Outcome: Progressing Goal: Resp rate/effort will be within specified limits Outcome: Progressing Problem: Mechanical Ventilation Goal: Patent airway Outcome: Progressing Goal: Oral health is maintained or improved Outcome: Progressing Goal: Tracheostomy will be managed safely Outcome: Progressing Goal: ET tube will be managed safely Outcome: Progressing Goal: Ability to express needs and understand communication Outcome: Progressing Goal: Mobility/activity is maintained at optimum level for patient Outcome: Progressing Problem: Glycemia Imbalance Goal: Clinical indication of glycemia balance is achieved Outcome: Progressing Goal: Continuum of care needs are met for Glycemic Management Outcome: Progressing Problem: Skin Integrity Goal: Skin integrity is maintained or improved Outcome: Progressing * Brittnee Grover RN - 11/07/2020 4:12 PM CDT remains intubated , was on SBT until almost 11am,placed back on SCMV mode of ventilations post ABG results with PO2 Of 58 and PCO2- 92- Dr. Clinton is aware of ABG results ,pt is intermittently restless and agitated, attempts to sit up in bed and reaches for ET tube- still with soft wrist restraintson- reoriented to her environment and plan of care, started on precedex drip titrated per MDs order,propofol drip discontinued., pts son Reynold here and is visiting pt- updated him with pts condition. * Brigid Reyes RN - 11/07/2020 3:54 PM CDT Case Management Initial Assessment Case Management screen completed & Welcome Letter given. Anticipated level of care at discharge: Home, Home Health Care, Acute Rehab Facility, Half-Way - Skilled Facility Discharge Plans: TBD COPD exac. Distributive shock. Pt remains intubated. Precedex gtt, IV abx, and IV solumedrol. Pt has a recent hx of cervical spine fracture and remains in a c-collar. 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 Yes Anticipated Discharge Date: 11/11/20 Prior Level of Functioning: pt lives at home and is independent with ambulation. She uses home O@ at 3-4L. She has a live-in airport maintenance laborer that assists her as needed. Her family provides transportation. Anticipated level of care at discharge: Home, Home Health Care, Acute Rehab Facility, Half-Way - Skilled Facility Transportation at Discharge: Family Transportation to MD appointments: Family Equipment at Home: Equipment At Home: Home O2 Additional equipment needed at home but does not have: TBD If no PCP, action taken: N/a, Pt's doctor is Dr. Eusebio Nagy [phone] Pharmacy benefit: Yes Medication affordability concerns: No Hunger Screening: Within the past 12 months the food we bought just didn't last and we didn't have money to get more.: Unable to assess Within the past 12 months we worried whether our food would run out before we got money to buy more: Unable to assess Supervisor Computer Operations Referral: Not at this time. If patient requires HHC at discharge, he/she requests: If HHC needed, MD to place orders prior to d/c. No company preference was expressed at this time. Will continue to follow. For any questions or needs please contact: Liquor Bridge Operator Name/Phone number: JUAN [employer] teacher [phone]- Please see treatment team for current CM * Brittnee Grover RN - 11/07/2020 2:18 PM CDT Problem: Safety related to restraint use Goal: Absence of injury while restrained Outcome: Progressing Problem: Oral Intake: Inadequate oral intake Description: Estimated Needs: KCAL: [phone] kcals(15-20 kcals/kg of ABW) Protein (g): 78-131 gm(1.2-2.0 gm/kg of ABW) Fluid (ml): 1 ml/kcal Recommended Access Route: TF Goal: Total intake will meet estimated nutrient needs Outcome: Progressing Note: Continue on vital HP tube feedings at 50 ml/ hr. 50 ml water flushes given every 6 hours. Problem: Potential for Urinary Catheter-Associated Infection Goal: Signs and Symptoms of urinary catheter-associated infection are avoided Outcome: Progressing Note: Guerrero catheter care performed every 8 hours and prn Goal: Normal urinary patterns are established within parameters of age and disease process Outcome: Progressing Problem: Fall Risk Goal: Fall risk and fall related injury risk are minimized (interventions related to the fall risk can be found in the flowsheet documentation) Outcome: Progressing * Madeline Savage RD/LALA - 11/07/2020 1:00 PM CDT CLINICAL NUTRITION Pt discussed on rounds today. Med/Surg History and Clinical Diagnoses: septic shock, HCAP, acute on chronic respiratory failure with hypercarbia, acute exacerbation of COPD, recent cervical spine fracture; h/o anxiety, COPD, diverticulitis, HLD Diet/TF Current diet order: NPO Current tube feeding order: Vital High Protein at 50 ml/hr P.O.Intake for the past 48 hrs: No data recorded % Oral Supplement Intake:No data recorded Food Allergies: No known food allergies Drips: fentanyl, propofol (169 kcal/day) Blood Sugar Range Past 24 hours: Glucose Bedside (mg/dL) Av mg/dL Min: 184 mg/dL Max: 192 mg/dL Most Recent Blood Glucose Values: Patient Vitals for the past 8 hrs: Glucose Bedside (mg/dL) 11/07/20 1146 186 mg/dL 11/07/20 0617 192 mg/dL Skin/Wound: WDL Stools: Last BM (Date): (GOVERNMENT PROFESSOR) Stools (# of stools): 1 (11/07/20399) Stool Appearance : Soft;Loose (11/07/20399) Stool Amount: Smear (11/07/20399) Bowel Sounds (All Quadrants): Active Issues of the day were discussed: Patient tolerating current TF regimen at goal rate. Bowels moving. Not following commands. Agitated overnight. On spontaneous. Plan to start precedex, wean propofol as tolerated. Dose of lasix. Brittaney Mosley RD/LALA, MS 11/07/2020 1:01 PM Ascom [id number] * Astrid Helm, PT - 11/07/2020 11:14 AM CDT Attempted to see patient for physical therapy. Unable to complete visit due to RN requested to holdtherapy due to patient easily agitated/restless while being on sedation. Will attempt to see patient at a later date. * Chasity Maldonado OT - 11/07/2020 9:24 AM CDT Occupational therapy orders received; chart review completed. Pt admitted with septic shock, acute on chronic respiratory failure. Recent c-spine fracture (hospitalized 09/10-09/16). Unable to complete visit due to pt easily agitated/restless despite being on sedation. Currently on vent (SPONT, FiO2 40, PEEP 5). Will attempt to see patient at a later date/time as OT schedule allows. Chasity Maldonado OTD, OTR/L Ascom [id number] * Md Yousuf Gilmore MD - 11/07/2020 7:04 AM CDT Internal Medicine Resident ICU Progress Note Admission Date: 11/04/2020 Hospital Day: 3 Attending: Tono Rogers Resident/Water Valve Repairer: Keith / Deirdre Code Status: Full Code Events since last progress note: Afebrile, alert, following command Off Levophed uop 1.01 L, I/o +ve 1.8 L /24 hrs Leucocytosis resolved On SBT, low RR Hospital course summary: The patient is a 80 y/o female with a h/o COPD, chronic hypoxemic hypercarbic respiratory failure on home O2 (3-4 L), moderate to severe pulmonary hypertension (was started on sildenafil, could not tolerate - developed leg edema), portacath in situ, falls, type lll odontoid fracture with fractures of the right and left posterior arches of C1,sprain of nuchal ligament and,compression deformities involving T12 and T11 , and HTN presented to [facility] for hypoxia ( saturating 80s at home) and altered mental status. Pt was reportedly discharged from the hospital with PNA and was home for 2days. She was brought to the ED at [place] where her WBC was elevated, COVID rapid Ag negative, Head CT negative, CXR with perihilar infiltrates, and her PCO2>100. She was intubated and transferred to [facility] for further management. She is in a C-collar and details are limited but she apparently has a new cervical spine fracture. 09/10/2020 - 09/16/2020 was admitted at [facility] (transferred form [facility] with h/o fall and neck pain) Type III Odontoid fracture ,was negative for orthostasis but there was significant concernfor , advised to follow up with neurosurgery after 6 weeks. As per daughter patient transferred to rehab for one week, then home. Spoke with daughter, the patient did not follow up with neurosurgery, she was at her baseline afterhospital discharge,was not discharged on abx, started having worsening sob and AMS one day prior topresent at [facility]. Remain on vent Review of Systems Unable to perform ROS: Intubated OBJECTIVE 5 lb 9.6 oz Intake/Output Summary (Last 24 hours) at 11/07/2020 0704 Last data filed at 11/07/2020 0618 Gross per 24 hour Intake 2297.12 ml Output 780 ml Net 1517.12 ml Temp (24hrs), Av.2 ??F (37.3 ??C), Min:96.4 ??F (35.8 ??C), Max:99.7 ??F (37.6 ??C) Vitals: 11/07/20 0600 11/07/20 0615 11/07/20 0630 11/07/20 0645 BP: 102/48 141/54 140/58 Pulse: 47 62 61 81 Resp: 12 14 10 17 Temp: 99.7 ??F (37.6 ??C) 99.7 ??F (37.6 ??C) 99.7 ??F (37.6 ??C) 99.7 ??F (37.6 ??C) SpO2: 94% (!) 82% 92% 91% Weight: Height: Physical Exam Constitutional: Interventions: She is intubated. Cardiovascular: Rate and Rhythm: Regular rhythm. Bradycardia present. Heart sounds: No murmur. No friction rub. No gallop. Pulmonary: Effort: She is intubated. Breath sounds: No wheezing, rhonchi or rales. Abdominal: General: Bowel sounds are normal. Palpations: Abdomen is soft. Tenderness: There is no guarding. Musculoskeletal: Right lower leg: No edema. Left lower leg: No edema. Skin: General: Skin is warm. Coloration: Skin is not jaundiced or pale. Findings: No erythema. POCUS: A lines present, few B lines b/l, no pleural effusion Good RV and LV contractility, no pericardial effusion IVC 2 cm MAR reviewed: yes Antimicrobial day: Labs: I have reviewed results from the last 24 hours and are remarkable for the following: Recent Labs Component Name 11/07/2032611/06/2041911/05/20 043 WBC 9.7 12.9* 26.9* RBC 2.99* 3.02* 3.28* HGB 8.7* 8.7* 9.4* HCT 28.4* 27.8* 30.6* MCV 95.0 92.1 93.3 MCHC 30.6* 31.3 30.7* PLTCOUNT 235 280 326 NEUTPCT 92.0* 91.3* 95.6* LYMPHPCT 4.5* 5.8* 3.1* BASOPHILPCT 0.1 0.0 0.1 GRANSIMMPCT 0.4 0.5 0.7 NEUTABS 8.92* 11.81* 25.69* LYMPHABS 0.44* 0.75* 0.83* BASOABS 0.01 0.00 0.02 Recent Labs Component Name 11/07/2032611/06/2041911/05/20 0433 11/04/20 2054 SODIUM 141 142 141 141 POTASSIUM 4.1 3.9 3.9 4.0 CHLORIDE 97* 97* 95* 96* CO2 37* 40* 41* 41* BUN 32* 21* 19 20 CREATININE 0.64 0.61 0.59 0.65 GLUCOSE 192* 182* 156* 159* CALCIUM 8.4 8.5 8.2* 8.3* ALT - 28 - 55 ALKPHOS - 51 - 57 AST - 9 - 43* TBIL - 0.2 - 0.5 TPROT - 5.2* - 5.0* EGFR >60 >60 >60 >60 EGFRAFR >60 >60 >60 >60 ALBUMIN 2.9* 2.9* - 2.8* Recent Labs Component Name 11/04/202053 LACTICACID 1.1 Recent Labs Component Name 11/04/202153 COLORUA Yellow CLARITYUA Clear SPECGRAVUA 1.017 PHUA 6.0 PROTEINUA 1+* BLOODUA 1+* LEUKOCYTEUA Negative NITRITEUA Negative GLUCOSEUA Negative KETONEUA Negative BILIRUBINUA Negative UROBILINUA Negative WBCUA 0-5 RBCUA 3-5 MUCUSUA 1+ BACTUA None Seen Recent Labs Component Name 11/06/20 0511/04/20 2045 FIO2 25 35 PH 7.46* 7.52* PCO2 58* 55* BE 14.9* 19.0* HCO3 41* 44* PO2 56* 64* O2SAT 90 94 Recent Labs Component Name 11/05/20 0801 TROPONINI <0.010 Micro: Microbiology Results (Displays last 21 days for this encounter ONLY) Procedure Component Value - Date/Time CULTURE MRSA [[id number]] (Normal) Collected: 11/05/20 1154 Lab Status: Final result Specimen: Microbiology from Nasal Updated: 11/07/20 0640 Culture Negative for methicillin-resistant Staphylococcus aureus (MRSA) SARS-COV-2 (COVID-19) IN HOUSE [[id number]] (Normal) Collected: 11/05/20 0840 Lab Status: Final result Specimen: Microbiology from Nasopharyngeal Updated: 11/05/20 1404 COVID-19 PCR Not detected Narrative: This nucleic acid amplification assay performance was validated by [facility]. This test has been authorized by the Food and Drug administration (FDA)under an Emergency??Use Authorization (EUA). This test has been validated in accordance withthe FDA's guidance document Policy for Diagnostic Testing in Laboratories Certified to perform High Complexity Testing under CLIA prior to Emergency Use Authorization for Coronavirus Disease-2019 during the Public Health Emergency issued on October 03, 2019. FDA independent review of this validation is pending. This test is only authorized for the duration of time the declaration that circums tances exist justifying the authorization of emergency use of in vitro diagnostic tests for detection of SARS-CoV-2 virus and/or diagnosis of COVID-19 infection under section 564(b)(1) of the Act, 21[place].S.C 360bbb-3 (b)(1), unless the authorization is terminated or revoked sooner. Fact Sheets for this EUA assay are available upon request. CULTURE SPUTUM+GRAM STAIN [[id number]] Collected: 11/04/202328 Lab Status: Preliminary result Specimen: Microbiology from Sputum Updated: 11/06/20 0327 Culture No growth Gram Stain <10 per low power field Squamous epithelial cells <10 per low power field Polymorphonuclear cells No organisms seen CULTURE BLOOD [[id number]] Collected: 11/04/202218 Lab Status: Preliminary result Specimen: Blood Peripheral Updated: 11/07/208 Culture No growth CULTURE BLOOD [[id number]] Collected: 11/04/202211 Lab Status: Preliminary result Specimen: Blood Peripheral Updated: 11/07/208 Culture No growth LEGIONELLA ANTIGEN URINE [[id number]] (Normal) Collected: 11/04/202153 Lab Status: Final result Specimen: Urine Updated: 11/05/20 0733 Legionella Antigen Urine Negative Narrative: This assay detects Legionella pneumophila serogroup one (1) antigen. A negative test result does not rule out the possibility of Legionella infection due to other serogroups or species of Legionella.A positive result may indicate a recent or remote infection with serogroup 1. STREP PNEUMONIAE ANTIGEN URINE [[id number]] (Normal) Collected: 11/04/202153 Lab Status: Final result Specimen: Urine Updated: 11/05/20 0732 Streptococcus pneumoniae Antigen Urine Negative Narrative: Patients who have received the Streptococcus pneumoniae vaccines may test positive in the 48 hours following vaccination. It is recommended to avoid testing within five days of receiving vaccination.Testing pediatric patients is discouraged because of their high rates of nasal colonization with Streptococcus pneumoniae leading to false positive results. Samples from patients taking antibiotics for more than 24 hours may cause false negatives. Imaging: I have reviewed imaging studies from the last 24 hours and is summarized below: Xr Chest 1vw Portable Result Date: 11/04/2020 Chest, one view portable DATE: 11/04/2020 at 1953 hours INDICATION: Intubation and hypoxia. FINDINGS:The endotracheal tube ends between the clavicles and tricia. The lungs are probably clear although there is questionable bilateral parahilar opacity. This may be artifactual due to patient positioning. No pneumothorax or pleural fluid collection. The heart size is probably normal but evaluation is l imited. 1. Intubated 2. Lungs probably clear CT Abd/Pelv on 08/23 moderate to severe compression fractures at T11 and T12 ASSESSMENT/CLINICAL REASONING Acute on chronic hypoxic and hypercapnic respiratory failure -likely 2/2 COPD exacerbation Distributive shock -secondary to suspected sepsis, concern for aspiration vs Health care associated pneumonia -neutrophilic leucocytosis - improving - normal lactic acid -negatives: blood cx, sputum stain and cx, legionella urine AG, strep pneumo urine Ag, COVD 19 PCR,MRSA nasal swab - off pressors Acute exacerbation of COPD -at OSH CO2 >100 PLAN: NEURO: Sedation: will titrate Propofol, switch to precedex Analgesia: wean off fentanyl, continue scheduled oxycodone Spoke with Amparo hCin ( Neuro-surgery outpatient clinic), the patient has schedule on November 03 which was canceled, care was not established who recommended patient may be transferred to [facility], or discharged for outpatient follow up once medically stable and make appointment for follow up PULM: Ventilation: on SBT, if persistently low RR and Co2 retention will place on CMV duonebs symbicort Solumedrol 40 bid started on 11/05 CV: Pressors: off Levophed, MAP goal >65 RENAL: Fluids: none 40 mg iv Lasix today ID: ABX: cont cefepime for 5 days ( last dose on 11/09) ENDO: Insulin: Low dose SSI HEM-ONC: DVT prophylaxis: heparin GI: Diet/TF: continue TF Stress ulcer prophylaxis: pepsid PT/OT/ST/ACTIVITY: deferred D/w ICU Attending Md Yousuf Gilmore MD 11/05/2020 7:04 AM Associated attestation - Tono Clinton MD - 11/07/2020 11:49 AM CDT [facility] Teaching attending note Date of Service 11/07/2020 I have seen and examined the patient. I have reviewed the chart, labs, imaging and other pertinent clinical data. I have discussed the patient's care plan with the Resident and agree with the evaluation and plan. If needed, additional information is added below. Assessment/Plan- 80 y/o female with a h/o COPD, chronic hypoxemic hypercarbic respiratory failure on home O2 presenting with AMS and resp failure 1. Septic shock 2. HCAP 3. Acute on chronic respiratory failure with hypoxia and hypercarbia 4. AECOPD 5. Recent cervical spine fracture - Attempted SBT this am, low volumes - ABG post extubation showed pCO2>90; will hold off on extubation - Off pressors - Added scheduled oxycodone given home usage - Continue Cefepime for 5 days - Continue steroids for COPD exacerbation - Continue C Collar till [facility] outpatient eval - H2B, Heparin, started TF The patient is critically ill with Resp failure. This life-threatening illness requires high complexity decision making for assessment and support, direct xnro-ou-mwyn evaluation, personal review of the medical record and laboratory and diagnostic imaging results, active titration of high-alert medications, adjustment of the ventilator , and application of advanced monitoring techniques. As a result, I personally spent 45 minutes providing critical care services exclusively to this patient. This was in exclusion of the time spent performing procedures (separately reported) or teaching. Tono Clinton MD11/07/2020 11:45 AM * Jerad Maurer PT - 11/06/2020 10:09 AM CDT Attempted to see patient for physical therapy at 1009. Spoke to RN who request to hold PT eval and treat today due to patient currently intubated and sedated. Will attempt to see patient at a later date. Jerad Maurer PT [facility] [id number] * Marianela Restrepo PharmD - 11/06/2020 8:20 AM CDT Vancomycin Per Pharmacy (Day 3) 80 year old female receiving vancomycin 1500 mg IV every 24 hours for the management of Septic Shock 2/2 suspected pneumonia. Vitals: Height: 5' (152.4 cm) (11/05/20 0615) Weight: 64.5 kg (142 lb 1.6 oz) (11/06/20 0400) Temp (24hrs) Max:99.9 ??F (37.7 ??C) Current Labs: Recent Labs Component Name 11/06/20 0420 11/05/20 0433 11/04/202053 BUN 21* 19 20 CREATININE 0.61 0.59 0.65 WBC 12.9* 26.9* 22.3* Creatinine Clearance: Estimated Creatinine Clearance: 62.7 mL/min (based on SCr of 0.61 mg/dL). Cultures: 11/04 Blood x 2: NGTD Sputum: NGTD 11/05 MRSA: pending Vancomycin goal: 400-600 mg*hr/L No results for input(s): VANCTROUGH, VANCOPEAK in the last 70923 hours. A/P Renal function has remained stable. WBC significantly improved. Will continue the current regimen at this time. Will obtain a vancomycin peak/trough level on 11/07. Will continue to monitor and adjust as appropriate. Marianela Restrepo PharmD 11/06/2020 8:20 AM * Md Yousuf Gilmore MD - 11/06/2020 6:25 AM CDT Internal Medicine Resident ICU Progress Note Admission Date: 11/04/2020 Hospital Day: 2 Attending: Tono Rogers Resident/Water Valve Repairer: Drs. Hernandez/ Deirdre Code Status: Full Code Events since last progress note: Afebrile, HR 40 - 50s Remain on vent, Levophed requirement decreasing uop 1.1 L, I/o -ve 943 ml/24 hrs pa 02/fio2 224 >182 Hospital course summary: The patient is a 80 y/o female with a h/o COPD, chronic hypoxemic hypercarbic respiratory failure on home O2 (3-4 L), moderate to severe pulmonary hypertension (was started on sildenafil, could not tolerate - developed leg edema), portacath in situ, falls, type lll odontoid fracture with fractures of the right and left posterior arches of C1,sprain of nuchal ligament and,compression deformities involving T12 and T11 , and HTN presented to [facility] for hypoxia ( saturating 80s at home) and altered mental status. Pt was reportedly discharged from the hospital with PNA and was home for 2days. She was brought to the ED at [place] where her WBC was elevated, COVID rapid Ag negative, Head CT negative, CXR with perihilar infiltrates, and her PCO2>100. She was intubated and transferred to [facility] for further management. She is in a C-collar and details are limited but she apparently has a new cervical spine fracture. 09/10/2020 - 09/16/2020 was admitted at [facility] (transferred form [facility] with h/o fall and neck pain) Type III Odontoid fracture ,was negative for orthostasis but there was significant concernfor , advised to follow up with neurosurgery after 6 weeks. As per daughter patient transferred to rehab for one week, then home. Spoke with daughter, the patient did not follow up with neurosurgery, she was at her baseline afterhospital discharge,was not discharged on abx, started having worsening sob and AMS one day prior topresent at [facility]. Review of Systems Unable to perform ROS: Intubated OBJECTIVE -14 lb 6.8 oz Intake/Output Summary (Last 24 hours) at 11/06/2020 0626 Last data filed at 11/06/2020 0424 Gross per 24 hour Intake 2014.35 ml Output 990 ml Net 1024.35 ml Temp (24hrs), Av ??F (37.2 ??C), Min:97.7 ??F (36.5 ??C), Max:99.9 ??F (37.7 ??C) Vitals: 11/06/20 0515 11/06/20 0530 11/06/20 0545 11/06/20 0600 BP: 147/67 120/54 113/55 114/53 Pulse: 64 54 50 47 Resp: 18 14 14 12 Temp: 99 ??F (37.2 ??C) 99 ??F (37.2 ??C) 99.1 ??F (37.3 ??C) 99.1 ??F (37.3 ??C) SpO2: 91% (!) 88% 90% 91% Weight: Height: Physical Exam Constitutional: Interventions: She is intubated. Cardiovascular: Rate and Rhythm: Regular rhythm. Bradycardia present. Heart sounds: No murmur. No friction rub. No gallop. Pulmonary: Effort: She is intubated. Breath sounds: No wheezing, rhonchi or rales. Abdominal: General: Bowel sounds are normal. Palpations: Abdomen is soft. Tenderness: There is no guarding. Musculoskeletal: Right lower leg: No edema. Left lower leg: No edema. Skin: General: Skin is warm. Coloration: Skin is not jaundiced or pale. Findings: No erythema. POCUS: A lines present, few B lines b/l, no pleural effusion Good RV and LV contractility, no pericardial effusion IVC 2 cm MAR reviewed: yes Antimicrobial day: Labs: I have reviewed results from the last 24 hours and are remarkable for the following: Recent Labs Component Name 11/06/2041911/05/2043211/04/202053 WBC 12.9* 26.9* 22.3* RBC 3.02* 3.28* 3.15* HGB 8.7* 9.4* 9.1* HCT 27.8* 30.6* 29.3* MCV 92.1 93.3 93.0 MCHC 31.3 30.7* 31.1 PLTCOUNT 280 326 232 NEUTPCT 91.3* 95.6* 94.7* LYMPHPCT 5.8* 3.1* 2.5* BASOPHILPCT 0.0 0.1 0.1 GRANSIMMPCT 0.5 0.7 0.6 NEUTABS 11.81* 25.69* 21.06* LYMPHABS 0.75* 0.83* 0.56* BASOABS 0.00 0.02 0.03 Recent Labs Component Name 11/06/2041911/05/2043211/04/202053 SODIUM 142 141 141 POTASSIUM 3.9 3.9 4.0 CHLORIDE 97* 95* 96* CO2 40* 41* 41* BUN 21* 19 20 CREATININE 0.61 0.59 0.65 GLUCOSE 182* 156* 159* CALCIUM 8.5 8.2* 8.3* ALT 28 - 55 ALKPHOS 51 - 57 AST 9 - 43* TBIL 0.2 - 0.5 TPROT 5.2* - 5.0* EGFR >60 >60 >60 EGFRAFR >60 >60 >60 ALBUMIN 2.9* - 2.8* Recent Labs Component Name 11/04/202053 LACTICACID 1.1 Recent Labs Component Name 11/04/202153 COLORUA Yellow CLARITYUA Clear SPECGRAVUA 1.017 PHUA 6.0 PROTEINUA 1+* BLOODUA 1+* LEUKOCYTEUA Negative NITRITEUA Negative GLUCOSEUA Negative KETONEUA Negative BILIRUBINUA Negative UROBILINUA Negative WBCUA 0-5 RBCUA 3-5 MUCUSUA 1+ BACTUA None Seen Recent Labs Component Name 11/06/20 0511/04/20 204 FIO2 25 35 PH 7.46* 7.52* PCO2 58* 55* BE 14.9* 19.0* HCO3 41* 44* PO2 56* 64* O2SAT 90 94 Recent Labs Component Name 11/05/20 0801 TROPONINI <0.010 Micro: Microbiology Results (Displays last 21 days for this encounter ONLY) Procedure Component Value - Date/Time CULTURE MRSA [[id number]] Collected: 11/05/20 1154 Lab Status: In process Specimen: Microbiology from Nasal Updated: 11/05/20 1220 SARS-COV-2 (COVID-19) IN HOUSE [[id number]] (Normal) Collected: 11/05/20 0840 Lab Status: Final result Specimen: Microbiology from Nasopharyngeal Updated: 11/05/20 1404 COVID-19 PCR Not detected Narrative: This nucleic acid amplification assay performance was validated by [facility]. This test has been authorized by the Food and Drug administration (FDA)under an Emergency??Use Authorization (EUA). This test has been validated in accordance withthe FDA's guidance document Policy for Diagnostic Testing in Laboratories Certified to perform High Complexity Testing under CLIA prior to Emergency Use Authorization for Coronavirus Disease-2019 during the Public Health Emergency issued on October 03, 2019. FDA independent review of this validation is pending. This test is only authorized for the duration of time the declaration that circums tances exist justifying the authorization of emergency use of in vitro diagnostic tests for detection of SARS-CoV-2 virus and/or diagnosis of COVID-19 infection under section 564(b)(1) of the Act, 21U.S.C 360bbb-3 (b)(1), unless the authorization is terminated or revoked sooner. Fact Sheets for this EUA assay are available upon request. CULTURE SPUTUM+GRAM STAIN [[id number]] Collected: 11/04/202328 Lab Status: Preliminary result Specimen: Microbiology from Sputum Updated: 11/06/20 0327 Culture No growth Gram Stain <10 per low power field Squamous epithelial cells <10 per low power field Polymorphonuclear cells No organisms seen CULTURE BLOOD [[id number]] Collected: 11/04/202218 Lab Status: Preliminary result Specimen: Blood Peripheral Updated: 11/06/20 020 Culture No growth 24 hours CULTURE BLOOD [[id number]] Collected: 11/04/202211 Lab Status: Preliminary result Specimen: Blood Peripheral Updated: 11/06/20 0201 Culture No growth 24 hours LEGIONELLA ANTIGEN URINE [[id number]] (Normal) Collected: 11/04/202153 Lab Status: Final result Specimen: Urine Updated: 11/05/20 0733 Legionella Antigen Urine Negative Narrative: This assay detects Legionella pneumophila serogroup one (1) antigen. A negative test result does not rule out the possibility of Legionella infection due to other serogroups or species of Legionella.A positive result may indicate a recent or remote infection with serogroup 1. STREP PNEUMONIAE ANTIGEN URINE [[id number]] (Normal) Collected: 11/04/202153 Lab Status: Final result Specimen: Urine Updated: 11/05/20 0732 Streptococcus pneumoniae Antigen Urine Negative Narrative: Patients who have received the Streptococcus pneumoniae vaccines may test positive in the 48 hours following vaccination. It is recommended to avoid testing within five days of receiving vaccination.Testing pediatric patients is discouraged because of their high rates of nasal colonization with Streptococcus pneumoniae leading to false positive results. Samples from patients taking antibiotics for more than 24 hours may cause false negatives. Imaging: I have reviewed imaging studies from the last 24 hours and is summarized below: Xr Chest 1vw Portable Result Date: 11/04/2020 Chest, one view portable DATE: 11/04/2020 at 1953 hours INDICATION: Intubation and hypoxia. FINDINGS:The endotracheal tube ends between the clavicles and tricia. The lungs are probably clear although there is questionable bilateral parahilar opacity. This may be artifactual due to patient positioning. No pneumothorax or pleural fluid collection. The heart size is probably normal but evaluation is l imited. 1. Intubated 2. Lungs probably clear CT Abd/Pelv on 08/23 moderate to severe compression fractures at T11 and T12 ASSESSMENT/CLINICAL REASONING Acute on chronic hypoxic and hypercapnic respiratory failure -likely 2/2 COPD exacerbation Distributive shock -secondary to suspected sepsis, concern for aspiration vs Health care associated pneumonia -neutrophilic leucocytosis - improving - normal lactic acid -negatives: blood cx, sputum stain and cx, legionella urine AG, strep pneumo urine Ag, COVD 19 PCR,MRSA nasal swab -- pressor requirement decreasing Acute exacerbation of COPD -at OSH CO2 >100 PLAN: NEURO: Sedation: Propofol Analgesia: fentanyl will reach out office of neurosurgery cont cervical collar PULM: Ventilation: on vent, will plan on SBT today duonebs symbicort Solumedrol 40 bid started on 11/05 CV: Pressors: Levophed, MAP goal >65 RENAL: Fluids: none ID: ABX: cont cefepime dc vancomycin ENDO: Insulin: Low dose SSI HEM-ONC: DVT prophylaxis: heparin GI: Diet/TF: continue TF Stress ulcer prophylaxis: pepsid PT/OT/ST/ACTIVITY: deferred D/w ICU Attending Md Yousuf Gilmore MD 11/05/2020 6:26 AM Associated attestation - Tono Clinton MD - 11/06/2020 4:16 PM CDT [facility] Teaching attending note Date of Service 11/06/2020 I have seen and examined the patient. I have reviewed the chart, labs, imaging and other pertinent clinical data. I have discussed the patient's care plan with the Resident and agree with the evaluation and plan. If needed, additional information is added below. Assessment/Plan- 80 y/o female with a h/o COPD, chronic hypoxemic hypercarbic respiratory failure on home O2 presenting with AMS and resp failure 1. Septic shock 2. HCAP 3. Acute on chronic respiratory failure with hypoxia and hypercarbia 4. AECOPD 5. Recent cervical spine fracture - ABG reviewed, vent settings adjusted - Attempted SBT yday, did not tolerate, will attempt again today - On pressors to keep MAP>65mmHg - On abx, cx negative ; will de escalate- DC Vancomycin - Continue steroids for COPD exacerbation - Will get records from [facility] regarding plan for C Collar - H2B, Heparin, started TF The patient is critically ill with Resp failure. This life-threatening illness requires high complexity decision making for assessment and support, direct quti-yd-qhte evaluation, personal review of the medical record and laboratory and diagnostic imaging results, active titration of high-alert medications, adjustment of the ventilator , and application of advanced monitoring techniques. As a result, I personally spent 45 minutes providing critical care services exclusively to this patient. This was in exclusion of the time spent performing procedures (separately reported) or teaching. Tono Clinton MD11/06/2020 * Luma Hassan - 11/06/2020 5:50 AM CDT Problem: Potential for Urinary Catheter-Associated Infection Goal: Signs and Symptoms of urinary catheter-associated infection are avoided Outcome: Progressing Goal: Normal urinary patterns are established within parameters of age and disease process Outcome: Progressing Problem: Potential for Central Venous Catheter Infection Goal: Signs and Symptoms of Central Venous Catheter Infection are Avoided Outcome: Progressing Problem: Potential for Central Venous Catheter Occlusion Goal: Central Venous Catheter Occlusion is Avoided Outcome: Progressing Problem: Safety related to restraint use Goal: Absence of injury while restrained Outcome: Progressing Problem: Oral Intake: Inadequate oral intake Description: Estimated Needs: KCAL: [phone] kcals(15-20 kcals/kg of ABW) Protein (g): 78-131 gm(1.2-2.0 gm/kg of ABW) Fluid (ml): 1 ml/kcal Recommended Access Route: TF Goal: Total intake will meet estimated nutrient needs Outcome: Progressing * Daisha Minor RCP - 11/06/2020 12:17 AM CDT Settings: SCMV: 12, 350,+5, 25% Weans: Airway: 7.5 ETT 22 at the teeth Secretions: * Santosh Hernandes, PT - 11/05/2020 4:20 PM CDT PT orders received, chart reviewed. Pt is intubated and sedated at this time. Will attempt eval again when Pt is able to participate in therapy [id number] * Angelica Ramos OT - 11/05/2020 3:02 PM CDT OT orders received, chart reviewed. Pt is intubated and sedated at this time. Will attempt eval again when Pt is able to participate in therapy. * Jose Finch - 11/05/2020 9:44 AM CDT Patient on ventilator/isolation. No contact information in chart. Sliding Joint Maker offered prayer outside the closed doors to the room. * Tono Clinton MD - 11/05/2020 9:04 AM CDT [facility] Teaching attending note Date of Service 11/05/2020 I have seen and examined the patient. I have reviewed the chart, labs, imaging and other pertinent clinical data. I have discussed the patient's care plan with the Resident and agree with the evaluation and plan. If needed, additional information is added below. Assessment/Plan- 80 y/o female with a h/o COPD, chronic hypoxemic hypercarbic respiratory failure on home O2 presenting with AMS and resp failure 1. Septic shock 2. HCAP 3. Acute on chronic respiratory failure with hypoxia and hypercarbia 4. AECOPD 5. Recent cervical spine fracture - ABG reviewed, vent settings adjusted - Will plan on SBt today - On pressors to keep MAP>65mmHg - Continue abx, follow cx- if negative will de escalate - Also on steroids, likley COPD exacerbation - Will get records from [facility] regarding plan for C Collar - H2B, Heparin The patient is critically ill with Resp failure. This life-threatening illness requires high complexity decision making for assessment and support, direct tflf-sz-spgw evaluation, personal review of the medical record and laboratory and diagnostic imaging results, active titration of high-alert medications, adjustment of the ventilator , and application of advanced monitoring techniques. As a result, I personally spent 45 minutes providing critical care services exclusively to this patient. This was in exclusion of the time spent performing procedures (separately reported) or teaching. Tono Clinton MD11/05/2020 9:05 AM * Bryan Quinn, PharmD - 11/05/2020 7:43 AM CDT Vancomycin Per Pharmacy (Day 1) 80 year old female receiving vancomycin IV for the management of septic shock and suspected pneumonia. Other Anti-infectives: Cefepime 2g every 8 hours Vitals: Height: 5' (152.4 cm) (11/05/20 0615) Weight: 65.5 kg (144 lb 6.4 oz) (11/05/20 0400) Temp (24hrs), Av.9 ??F (37.2 ??C), Min:98.3 ??F (36.8 ??C), Max:99.4 ??F (37.4 ??C) Current Labs: Recent Labs Component Name 11/05/20 0433 11/04/202053 BUN 19 20 CREATININE 0.59 0.65 WBC 26.9* 22.3* Renal: Estimated Creatinine Clearance: 65.3 mL/min (based on SCr of 0.59 mg/dL). Positive Pertinent Cultures: No results found for: CULTURE. Levels: No results for input(s): VANCORNDM, VANCTROUGH, VANCOPEAK in the last 78334 hours. Vancomycin AUC goal: 400-600 mg??h/L Assessment/plan: Patient received 1000 mg at outside hospital and was given another supplemental dose of 1000 mg to give the patient a loading dose and a maintenance dose of 1500 mg IV every 24 hours. Predicted AUCis 498. Will obtain a vancomycin peak level on 11/07 at 0000 and a trough level on 11/07 at 2000. Will hold the following dose if the trough is greater than 21 mcg/mL. Will continue to monitor and will adjust regimen if necessary. Bryan Quinn PharmD * Md Yousuf Gilmore, MD - 11/05/2020 6:30 AM CDT Internal Medicine Resident ICU Progress Note Admission Date: 11/04/2020 Hospital Day: 1 Attending: Tono Rogers Resident/Water Valve Repairer: Drs. Hernandez/ Deirdre Code Status: Full Code Events since last progress note: Afebrile Remain on vent, Levophed overnight uop 600 ml Hospital course summary: The patient is a 80 y/o female with a h/o COPD, chronic hypoxemic hypercarbic respiratory failure on home O2 (3-4 L), portacath in situ, falls, type lll odontoid fracture with fractures of the right and left posterior arches of C1,sprain of nuchal ligament and,compression deformities involving T12 and T11 , and HTN presented to [facility] for hypoxia ( saturating 80s at home) and altered mental status. Pt was reportedly discharged from the hospital with PNA and was home for 2 days. She was brought to the ED at [place] where her WBC was elevated, COVID rapid Ag negative, Head CT negative, CXR with perihilar infiltrates, and her PCO2>100. She was intubated and transferred to [facility] for further management. She is in a C-collar and details are limited but she apparently has anew cervical spine fracture. 09/10/2020 - 09/16/2020 was admitted at [facility] (transferred form [facility] with h/o fall and neck pain) Type III Odontoid fracture ,was negative for orthostasis but there was significant concernfor , advised to follow up with neurosurgery after 6 weeks, was planned to discharge to SNF but patient preferred home. Spoke with daughter, the patient did not follow up with neurosurgery, she was at her baseline afterhospital discharge,was not discharged on abx, started having worsening sob and AMS one day prior topresent at [facility]. Review of Systems Unable to perform ROS: Intubated OBJECTIVE Unable to calculate weight change. No intake or output data in the 24 hours ending 11/05/20 0631 Temp (24hrs), Av.3 ??F (36.8 ??C), Min:98.3 ??F (36.8 ??C), Max:98.3 ??F (36.8 ??C) Vitals: 11/05/20 0535 11/05/20 0540 11/05/20 0545 11/05/20 0615 BP: 136/51 130/53 122/51 143/51 Pulse: 52 48 45 47 Resp: 12 14 12 (!) 8 Temp: SpO2: (!) 89% 90% (!) 89% 100% Weight: Height: Physical Exam Constitutional: Interventions: She is intubated. Cardiovascular: Rate and Rhythm: Regular rhythm. Bradycardia present. Heart sounds: No murmur. No friction rub. No gallop. Pulmonary: Effort: She is intubated. Breath sounds: No wheezing, rhonchi or rales. Abdominal: General: Bowel sounds are normal. Palpations: Abdomen is soft. Tenderness: There is no guarding. Musculoskeletal: Right lower leg: No edema. Left lower leg: No edema. Skin: General: Skin is warm. Coloration: Skin is not jaundiced or pale. Findings: No erythema. POCUS: A lines present, few B lines b/l, no pleural effusion Good RV and LV contractility, no pericardial effusion IVC 2.3 cm MAR reviewed: yes Antimicrobial day: Labs: I have reviewed results from the last 24 hours and are remarkable for the following: Recent Labs Component Name 11/05/20 0433 11/04/202053 WBC 26.9* 22.3* RBC 3.28* 3.15* HGB 9.4* 9.1* HCT 30.6* 29.3* MCV 93.3 93.0 MCHC 30.7* 31.1 PLTCOUNT 326 232 NEUTPCT 95.6* 94.7* LYMPHPCT 3.1* 2.5* BASOPHILPCT 0.1 0.1 GRANSIMMPCT 0.7 0.6 NEUTABS 25.69* 21.06* LYMPHABS 0.83* 0.56* BASOABS 0.02 0.03 Recent Labs Component Name 11/05/20 0433 11/04/202053 SODIUM 141 141 POTASSIUM 3.9 4.0 CHLORIDE 95* 96* CO2 41* 41* BUN 19 20 CREATININE 0.59 0.65 GLUCOSE 156* 159* CALCIUM 8.2* 8.3* ALT - 55 ALKPHOS - 57 AST - 43* TBIL - 0.5 TPROT - 5.0* EGFR >60 >60 EGFRAFR >60 >60 ALBUMIN - 2.8* Recent Labs Component Name 11/04/202053 LACTICACID 1.1 Recent Labs Component Name 11/04/202153 COLORUA Yellow CLARITYUA Clear SPECGRAVUA 1.017 PHUA 6.0 PROTEINUA 1+* BLOODUA 1+* LEUKOCYTEUA Negative NITRITEUA Negative GLUCOSEUA Negative KETONEUA Negative BILIRUBINUA Negative UROBILINUA Negative WBCUA 0-5 RBCUA 3-5 MUCUSUA 1+ BACTUA None Seen Recent Labs Component Name 11/04/202044 FIO2 35 PH 7.52* PCO2 55* BE 19.0* HCO3 44* PO2 64* O2SAT 94 Micro: Microbiology Results (Displays last 21 days for this encounter ONLY) Procedure Component Value - Date/Time CULTURE SPUTUM+GRAM STAIN [[id number]] Collected: 11/04/202328 Lab Status: Preliminary result Specimen: Microbiology from Sputum Updated: 11/05/20 0532 Gram Stain <10 per low power field Squamous epithelial cells <10 per low power field Polymorphonuclear cells No organisms seen CULTURE BLOOD [[id number]] Collected: 11/04/202218 Lab Status: In process Specimen: Blood Peripheral Updated: 11/04/202242 CULTURE BLOOD [[id number]] Collected: 11/04/202211 Lab Status: In process Specimen: Blood Peripheral Updated: 11/04/202242 LEGIONELLA ANTIGEN URINE [[id number]] Collected: 11/04/202153 Lab Status: In process Specimen: Urine Updated: 11/04/202201 STREP PNEUMONIAE ANTIGEN URINE [[id number]] Collected: 11/04/202153 Lab Status: In process Specimen: Urine Updated: 11/04/202201 Imaging: I have reviewed imaging studies from the last 24 hours and is summarized below: Xr Chest 1vw Portable Result Date: 11/04/2020 Chest, one view portable DATE: 11/04/2020 at 1953 hours INDICATION: Intubation and hypoxia. FINDINGS:The endotracheal tube ends between the clavicles and tricia. The lungs are probably clear although there is questionable bilateral parahilar opacity. This may be artifactual due to patient positioning. No pneumothorax or pleural fluid collection. The heart size is probably normal but evaluation is l imited. 1. Intubated 2. Lungs probably clear CT Abd/Pelv on 08/23 moderate to severe compression fractures at T11 and T12 ASSESSMENT/CLINICAL REASONING Acute on chronic hypoxic and hypercapnic respiratory failure -likely 2/2 COPD exacerbation Distributive shock - secondary to suspected sepsis, concern for aspiration vs Health care associated pneumonia -neutrophilic leucocytosis - normal lactic acid Acute exacerbation of COPD -at OSH CO2 >100 PLAN: NEURO: Sedation: Propofol Analgesia: fentanyl will reach out office of neurosurgery cont cervical collar PULM: Ventilation: on vent, will plan on SBT today duonebs symbicort Solumedrol 40 bid CV: Pressors: Levophed, MAP goal >65 RENAL: Fluids: will dc LR once NG/ hob josue tube is placed ID: ABX: cefepime, vancomycin ENDO: Insulin: Low dose SSI HEM-ONC: DVT prophylaxis: heparin GI: Diet/TF: will consider TF once tube placed Stress ulcer prophylaxis: pepsid PT/OT/ST/ACTIVITY: deferred D/w ICU Attending Md Yousuf Gilmore MD 11/05/2020 6:31 AM Associated attestation - Tono Clinton MD - 11/06/2020 4:15 PM CDT [facility] Teaching attending note Date of Service 11/05/2020 I have seen and examined the patient. I have reviewed the chart, labs, imaging and other pertinent clinical data. I have discussed the patient's care plan with the Resident and agree with the evaluation and plan. If needed, additional information is added below. Assessment/Plan- 80 y/o female with a h/o COPD, chronic hypoxemic hypercarbic respiratory failure on home O2 presenting with AMS and resp failure 1. Septic shock 2. HCAP 3. Acute on chronic respiratory failure with hypoxia and hypercarbia 4. AECOPD 5. Recent cervical spine fracture - ABG reviewed, vent settings adjusted - Will plan on SBt today - On pressors to keep MAP>65mmHg - Continue abx, follow cx- if negative will de escalate - Also on steroids, likley COPD exacerbation - Will get records from [facility] regarding plan for C Collar - H2B, Heparin The patient is critically ill with Resp failure. This life-threatening illness requires high complexity decision making for assessment and support, direct [id number] evaluation, personal review of the medical record and laboratory and diagnostic imaging results, active titration of high-alert medications, adjustment of the ventilator , and application of advanced monitoring techniques. As a result, I personally spent 45 minutes providing critical care services exclusively to this patient. This was in exclusion of the time spent performing procedures (separately reported) or teaching. Tono Clinton MD11/05/2020 9:05 AM * Luma Hassan - 11/05/2020 5:26 AM CDT Problem: Potential for Central Venous Catheter Infection Goal: Signs and Symptoms of Central Venous Catheter Infection are Avoided Outcome: Progressing Problem: Potential for Central Venous Catheter Occlusion Goal: Central Venous Catheter Occlusion is Avoided Outcome: Progressing documented in this encounter H&P Notes * Kenney Canas DO - 11/04/2020 7:26 PM CDT [facility] Automatic Admission Note Date of Consult: 11/04/2020 Patient's Primary Care Physician: No primary care provider on file. Name: Phoebe Dawn Age: [age] year old Sex: female Chief Complaint/History of Present Illness Patient unable to communicate symptoms.intubated The patient is a 80 y/o female with a h/o COPD, chronic hypoxemic hypercarbic respiratory failure on home O2, and HTN presented to [facility] hypoxic and altered. History is very limited as thepatient is intubated and sedated and is limited to chart review from [place]. Pt was reportedly just released from the hospital with PNA and was home for 2 days. Today, her family found her with satsin the 80s and she was altered. She was brought to the ED at [place] where her WBC was elevated, COVID negative, HCT negative, CXR with perihilar infiltrates, and her PCO2>100. She was intubated and transferred to [facility] ICU for further management. She is in a C-collar and details are limited but she apparently has a new cervical spine fracture. No Known Allergies No medications prior to admission. ??? 0.9% NaCl injection 3 mL, Intracatheter, q8h ??? 0.9% NaCl injection 3 mL, Intracatheter, q8h ??? albuterol-ipratropium (Duo-Neb) nebulizer solution 3 mL, Inhalation, q6h ??? cefepime (Maxipime) 2,000 mg in 0.9% NaCl IV 50 mL IVPB, Intravenous, q8h ??? chlorhexidine (Peridex) 0.12 % oral solution 15 mL, Mouth/Throat, BID ??? famotidine (Pepcid) injection 20 mg, Intravenous, BID ??? heparin injection 5,000 Units, Subcutaneous, BID ??? methylPREDNISolone sod succ (SOLU-Medrol) injection 40 mg, Intravenous, q12h ??? vancomycin (Vancocin) IV dose per pharmacy, Does not apply, DIRECTED ??? fentaNYL 2500 mcg/50mL (Sublimaze) infusion, Intravenous, Continuous ??? lactated ringers infusion, Intravenous, Continuous ??? propofol (Diprivan) infusion, Intravenous, Continuous No past medical history on file. No past surgical history on file. No family history on file. Social History Occupational History ??? Not on file Tobacco Use ??? Smoking status: Not on file Substance and Sexual Activity ??? Alcohol use: Not on file ??? Drug use: Not on file ??? Sexual activity: Not on file Review of Systems Unable to be obtained as the patient is intubated and sedated. Exam There were no vitals filed for this visit. General: Intubated and sedated. Psych: Sedated. Skin: Warm and dry. HENT: NC/AT. Clear. MMM. No nasal discharge Eyes: EOMI. Normal sclera. Nonicteric Neck: Supple. No JVD. Midline trachea. C-collar in place Pulmonary: Coarse breath sounds b/l. Respiratory effort is unlabored. Cardiovascular: RRR. No murmurs. Normal S1, S2 Abdominal: Positive bowel sounds. Soft. No rebound/guarding Extremities: No peripheral edema Neurological: Nonfocal. PERRL. Equal strength in all extremities. Data No results for input(s): SODIUM, POTASSIUM, CHLORIDE, CO2, BUN, CREATININE, GLUCOSE, CALCIUM, ALBUMIN, ALKPHOS, ALT, AST, TBIL, TPROT, EGFR in the last 07244 hours. No results for input(s): WBC, HGB, HCT, PLTCOUNT in the last 84113 hours. No results for input(s): PHART, GTE1ORR, PO2ART, S5BMGXIA, MWS3LPG, BEART, FIO2 in the last 26192 hours. No results for input(s): TROPONIN in the last 53855 hours. No results for input(s): PHOS in the last 68240 hours. CXR: Perihilar infiltrates ICU Issues D- Delirium assessment CAM-ICU: Assessments ordered E- Early Mobility/PT: Ordered F- Feeding: NPO Peptic Ulcer Disease Prophylaxis: Pepcid DVT Prophylaxis: CHET, SCDs Glycemic Control (140-180 mg/dL): SSI Catheter Discontinuation (CVC, arterial, urinary, gastric, rectal): Keep all Antibiotics: Vanc and zosyn Steroids: Solumedrol MAR Review (pain, anxiety, constipation...): Completed Code Status: FULL CODE LOS: 0 Assessment 1. Septic shock 2. HCAP 3. Acute on chronic respiratory failure with hypoxia and hypercarbia 4. AECOPD Plan Neuro: Sedation: Propofol Analgesia: Fentanyl Reported new cervical spine fracture. Will have the CT images uploaded to PACs and leave the patient in the C-collar tonight. Pulm: Ventilation: CMV ABG CXR DUONEBs q6 Solumedrol 40 q12 hours CV: Pressors: Levophed Renal: Fluids: LR 75/hr ID: ABX: Vancomycin. Change zosyn to cefepime Procal UA Urine antigens Sputum cx Blood cultures CXR Endo: Insulin: SSI q6 Heme/Onc: VTE Ppx: CHET, SCDs GI: Diet/TF: NPO for tonight Stress Ulcer PPx: Pepcid Critical Care Time: The patient is critically ill with septic shock, HCAP and acute on chronic respiratory failure. If I do not acutely intervene upon these illnesses, the patient's life is in danger. These illnesses have required me to: (1) perform high complexity decision making for assessment and support; (2) directly evaluate the patient [id number]; (3) personally review the medical record and laboratory and diagnostic imaging results; (4) actively titrate high-alert medications; (5) manage the ventilator and actively titrate oxygen; (6) discuss this patient's case and management with other healthcare providers; and (7) apply and interpret advanced monitoring techniques. As a result of all of this, I personally spent 45 minutes providing critical care services exclusively to this patient. This was in exclusion of the time spent performing procedures (separately reported) or teaching. documented in this encounter Procedure Notes * Kenney Canas DO - 11/04/2020 9:14 PM CDTProcedure(s): CENTRAL LINE PLACEMENT Pre-Procedure Diagnose(s): Septic shock (HCC) Post-Procedure Diagnose(s): Septic shock (HCC) Procedure: Insertion of central venous catheter Indications: sepsis, shock Catheter: triple lumen Anesthesia IV: patient already on IV fentanyl and propofol sedation protocol which was continued during the procedure Local: lidocaine 1% 5ml Site: right femoral vein Consent Emergency procedure Prep Entire vein scanned along it's length and compressibility observed. Under sterile conditions the site was prepped with chlorhexidine and full barrier precautions were employed. Technique The vessel was identified by ultrasound. The vein was accessed with a needle and the catheter was placed percutaneously using the modified Seldinger technique. The catheter sutured into place at 20 cm and a dressing was applied. All ports of the catheter were flushed with normal saline. Comments: placement successful on the first attempt Complications: None documented in this encounter Consult Notes * Kary Kumar - 11/16/2020 11:42 AM CDT Due to [facility] not being able to see pt in a timely manner, I spoke with [facility], [facility], [facility], [facility], [facility], & [facility]. All stating they are unable to accept pt. All options have been exhausted. Referral has been given back to coordinator for possible Home Connections. Kary Kumar Admission Associate [facility] [phone] or [phone] [email or web address] * Linh Reyes LPN - 11/16/2020 10:56 AM CDTAssociated Order(s): IP CONSULT TO HOME HEALTH CARE HH consult received. Patient daughter Jose has chosen [facility] Home. Will follow up with MD for HH services and orders. Thank you for this referral. Linh Reyes YARDAGE CONTROL OPERATOR FORMING Hospital Manager News [facility] [phone] After 4:30 p.m or over the weekend call [phone] option 1 * Irasema Russell RN - 11/10/2020 8:19 AM CDTAssociated Order(s): IP CONSULT TO PHYSICAL MED AND REHAB [facility] Rehab following. Will continue to follow for medical stability as well as ability to tolerate/participate in two therapies for possible admission acute rehab upon DC. Thank you for the referral. Irasema Russell RN, BSN Clinical Liaison [facility] [phone] * Hanna German - 11/07/2020 10:51 AM CDTAssociated Order(s): IP CONSULT TO ELECTRICAL LABORATORY TECHNICIAN Social Work Progress Note ARIADNA was consulted for medication assistance, however ARIADNA reviewed chart and notes patient is 80 yearsold and listed as self pay (but likely has Medicare). Patient currently on vent in ICU, sedated butagitated/restless. ARIADNA contacted daughter Jose Mccoy ([phone]). She reported patient does have insurance, has [facility] managed Medicare plan. Patient told staff upon arrival that her name was Phoebe Dawn however this is a former name per daughter Jose. Patient's current legal name is Phoebe Mccoy, is correct 1940 per daughter Jose. SW updated admitting (Katherine) and they will reach outto daughter Jose to attempt to get patient's identification card and insurance to update chart information. Per Jose, patient had been at rehab at [place] in September 2020 and remained for one week before returning home. She was at [facility] in the days before she came to [facility]. Per CM, patient PLOF is patient from home and is independent with ambulation. She uses home O2 at at 3-4L. 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 Her family provides transportation. SW to remain involved for discharge planning and support as patient continues to stabilize. SW provided daughter Jose with SW's contact information for any questions and to assist with discharge planning as needed. Discharge Plan Disposition: TBD Transportation: Transportation at discharge: TBD Anticipated Discharge Date: Contacts: Extended Emergency Contact Information Primary Emergency Contact: Darius andino Mobile Relation: Son Secondary Emergency Contact: Darius garcia Mobile Relation: Daughter Comments: [place] [employer] Supervisor Computer Operations Desk: [phone] Ascom: [phone] * Tiffany Blanco, LESLIE/LD - 11/05/2020 7:40 AM CDTAssociated Order(s): IP CONSULT TO NUTRITIONAL SERV; IP CONSULT TO NUTRITIONAL SERV CLINICAL NUTRITION ASSESSMENT Assessment: Received consults for vent protocol and mst of 2 due to unsure of weight loss. Pt intubated at outside hospital and transferred to [place]. No family at bedside. Currently intubated and sedated, onlevophed. Currently receiving propofol at 10.65 ml/hr, which is providing an estimated 281 kcals/d.If pt to remain intubated, and alternative feeding is desired by patient/family, recommend to bringenteral feeding when feeding tube placed and verified placement. Recommend to use Vital HP, begin at 20 ml/hr and advance by 10 mls q24 until goal rate of 40 ml/hr is reached. Vital High Protein @ 40 ml/hr will provide 960 Calories, 84 gms Protein, 108 gms Carb, 0 gms Fiber,and 803 mls of free water. If propofol discontinued, recommend to increase goal rate to Vital HP at50 ml/hr. Vital High Protein @ 50 ml/hr will provide 1200 Calories, 105 gms Protein, 134 gms Carb, 0 gms Fiber, and 1003 mls of free water. If pt extubated, recommend COPY DIRECTOR consult for swallow eval. Ifsafe to swallow, advance diet as tolerated to a regular diet. Labs reviewed. Glucose elevated, receiving novolog. Chloride low, recieving supplementation. Albumin depleted. Med/Surg History and Clinical Diagnoses: resp failure, sepsis, h/o copd, on home 02, htn, cervical spine fracture Height: 5' (152.4 cm) Wt Readings from Last 5 Encounters: 11/05/20 144 lb 6.4 oz (65.5 kg) IBW: 100# 144% IBW BMI: Body mass index is 28.2 kg/m??. BMI Range: Normal UBW: unknown Unintentional weight change:unknown Current diet order: NPO Food Allergies: No known food allergies P.O.Intake for the past 48 hrs: No data recorded No data recorded GI Concerns: None Body mass index is 28.2 kg/m??. Estimated Needs: KCAL: 982-1309 kcals(15-20 kcals/kg of ABW) Protein (g): 78-131 gm(1.2-2.0 gm/kg of ABW) Fluid (ml): 1 ml/kcal Recommended Access Route: TF Labs: Recent Labs Component Name 11/05/20 0433 11/04/202053 SODIUM 141 141 POTASSIUM 3.9 4.0 CHLORIDE 95* 96* CO2 41* 41* BUN 19 20 CREATININE 0.59 0.65 GLUCOSE 156* 159* CALCIUM 8.2* 8.3* ALBUMIN - 2.8* ALKPHOS - 57 ALT - 55 AST - 43* TBIL - 0.5 TPROT - 5.0* EGFR >60 >60 No results for input(s): PHOS in the last 46554 hours. Recent Labs Component Name 11/05/20 0433 HGBA1C 5.2 No results for input(s): PREALBUMIN in the last 38469 hours. Patient Vitals for the past 30 hrs: Glucose Bedside (mg/dL) 11/05/20 0606 156 mg/dL 11/05/20 0045 153 mg/dL 11/04/20 2030 159 mg/dL PERTINENT MEDICATIONS FOR CURRENT ENCOUNTER: ?? SCHEDULED MEDICATIONS: ? 0.9% NaCl injection 3 mL, Intracatheter, q8h ? 0.9% NaCl injection 3 mL, Intracatheter, q8h ? albuterol-ipratropium (Duo-Neb) nebulizer solution 3 mL, Inhalation, q6h ? budesonide-formoterol (Symbicort) 160-4.5 MCG/ACT inhaler 2 puff, Inhalation, BID ? cefepime (Maxipime) 2,000 mg in 0.9% NaCl IV 50 mL IVPB, Intravenous, q8h ? chlorhexidine (Peridex) 0.12 % oral solution 15 mL, Mouth/Throat, BID ? famotidine (Pepcid) injection 20 mg, Intravenous, BID ? heparin injection 5,000 Units, Subcutaneous, BID ? insulin aspart (NovoLOG) pen 0-6 Units, Subcutaneous, q6h ? magnesium sulfate 2 g in 50 mL bolus, Intravenous, Once ? methylPREDNISolone sod succ (SOLU-Medrol) injection 40 mg, Intravenous, q12h ? vancomycin (Vancocin) IV dose per pharmacy, Does not apply, DIRECTED ? [COMPLETED] lactated ringers IV bolus, Intravenous, Once ? [COMPLETED] vancomycin (Vancocin) 1,000 mg in 0.9% NaCl IV 250 mL IVPB, Intravenous, Once ?? CONTINUOUS MEDICATIONS: ? 0.9% NaCl flush bag, Intravenous, CONTINUOUS PRN ? fentaNYL 2500 mcg/50mL (Sublimaze) infusion, Intravenous, Continuous ? lactated ringers infusion, Intravenous, Continuous ? norepinephrine (Levophed) 8 mg/250 ml D5 infusion premix, Intravenous, Continuous ? propofol (Diprivan) infusion, Intravenous, Continuous Skin/Wound: wdl Stools: Last BM (Date): (GOVERNMENT PROFESSOR) Stools (# of stools): 0 (11/05/20 0200) Nutrition Care Process (1) Nutrition Diagnostic Statement: Inadequate oral intake related to:: decreased ability to consume or tolerate food and/or fluids due to illness as evidenced by:: oral intake insufficient to meet estimated requirements Nutrition Intervention: Meals and snacks:;Enteral nutrition: Education needed: None(at this time ) Education was not indicated at this time Following at high nutritional risk. Nutrition recommendation: agree with current nutrition order ?? If feeding placed and placement verifed, recommend Vital HP @ 20 ml/hr. ?? Advance by 10 ml q24hr until goal rate of 40 ml/hr. ?? If propofol discontinued, increase goal rate to 50 ml/hr. ?? If extubated and safe to swallow, advance diet as tolerated to a regular diet. Monitoring: NPO status vs diet advancement TF initiation/tolerance Weight Labs BM Skin integrity Evaluation: Nutrition Goal: Total intake will meet estimated nutrient needs Nutrition Goal Timeframe: Ongoing Tiffany Vasquez RD/LALA 11/05/2020 12:46 PM Ascom [id number] documented in this encounter Plan of Treatment Scheduled Orders Name Type Priority Associated Diagnoses Order Schedule REASSESSMENT PARAMETERS Respiratory Care Routine ONCE for 1 Occurrences starting 11/13/2020 until 11/13/2020 documented as of this encounter Procedures Procedure Name Priority Date/Time Associated Diagnosis Comments CARDIAC RHYTHM STRIP ORDER 11/17/2020 10:34 PM CDT LAB RESULTS ORDER 11/17/2020 10: 33 PM CDT CARDIAC EKG ORDER 11/17/2020 10: 33 PM CDT GLUCOSE - POINT OF CARE Routine 11/16/2020 8:15 AM CDT GLUCOSE - POINT OF CARE Routine 11/15/2020 7:43 PM CDT GLUCOSE - POINT OF CARE Routine 11/15/2020 5:32 PM CDT GLUCOSE - POINT OF CARE Routine 11/15/2020 12:24 PM CDT GLUCOSE - POINT OF CARE Routine 11/15/2020 8:30 AM CDT GLUCOSE - POINT OF CARE Routine 11/14/2020 8:01 PM CDT GLUCOSE - POINT OF CARE Routine 11/14/2020 4:16 PM CDT GLUCOSE - POINT OF CARE Routine 11/14/2020 1:31 PM CDT GLUCOSE - POINT OF CARE Routine 11/14/2020 5:55 AM CDT CBC W AUTO DIFFERENTIAL AM Draw 11/14/2020 4:14 AM CDT COMPREHENSIVE METABOLIC PANEL AM Draw 11/14/2020 4:14 AM CDT MAGNESIUM BLOOD Routine 11/14/2020 4:14 AM CDT GLUCOSE - POINT OF CARE Routine 11/13/2020 11:47 PM CDT GLUCOSE - POINT OF CARE Routine 11/13/2020 6:39 PM CDT GLUCOSE - POINT OF CARE Routine 11/13/2020 12:26 PM CDT GLUCOSE - POINT OF CARE Routine 11/13/2020 6:00 AM CDT GLUCOSE - POINT OF CARE Routine 11/12/2020 11:23 PM CDT GLUCOSE - POINT OF CARE Routine 11/12/2020 6:08 PM CDT GLUCOSE - POINT OF CARE Routine 11/12/2020 12:11 PM CDT GLUCOSE - POINT OF CARE Routine 11/12/2020 5:40 AM CDT SLIDE SCAN HEMATOLOGY Routine 11/12/2020 4:24 AM CDT CBC W AUTO DIFFERENTIAL AM Draw 11/12/2020 4:24 AM CDT COMPREHENSIVE METABOLIC PANEL AM Draw 11/12/2020 4:24 AM CDT MAGNESIUM BLOOD Routine 11/12/2020 4:24 AM CDT GLUCOSE - POINT OF CARE Routine 11/11/2020 11:53 PM CDT GLUCOSE - POINT OF CARE Routine 11/11/2020 5:55 PM CDT GLUCOSE - POINT OF CARE Routine 11/11/2020 1:55 PM CDT CBC W AUTO DIFFERENTIAL AM Draw 11/11/2020 8:07 AM CDT COMPREHENSIVE METABOLIC PANEL AM Draw 11/11/2020 8:07 AM CDT MAGNESIUM BLOOD Routine 11/11/2020 8:07 AM CDT GLUCOSE - POINT OF CARE Routine 11/11/2020 4:58 AM CDT GLUCOSE - POINT OF CARE Routine 11/10/2020 6:19 PM CDT GLUCOSE - POINT OF CARE Routine 11/10/2020 12:16 PM CDT GLUCOSE - POINT OF CARE Routine 11/10/2020 6:27 AM CDT CBC W AUTO DIFFERENTIAL AM Draw 11/10/2020 6:00 AM CDT COMPREHENSIVE METABOLIC PANEL AM Draw 11/10/2020 6:00 AM CDT MAGNESIUM BLOOD Routine 11/10/2020 6:00 AM CDT GLUCOSE - POINT OF CARE Routine 11/10/2020 12:03 AM CDT GLUCOSE - POINT OF CARE Routine 11/09/2020 5:29 PM CDT GLUCOSE - POINT OF CARE Routine 11/09/2020 12:11 PM CDT CBC W AUTO DIFFERENTIAL AM Draw 11/09/2020 5:26 AM CDT COMPREHENSIVE METABOLIC PANEL AM Draw 11/09/2020 5:26 AM CDT MAGNESIUM BLOOD Routine 11/09/2020 5:26 AM CDT GLUCOSE - POINT OF CARE Routine 11/09/2020 5:12 AM CDT GLUCOSE - POINT OF CARE Routine 11/08/2020 11:26 PM CDT GLUCOSE - POINT OF CARE Routine 11/08/2020 6:08 PM CDT BLOOD GASES ARTERIAL Routine 11/08/2020 3:24 PM CDT GLUCOSE - POINT OF CARE Routine 11/08/2020 11:44 AM CDT BLOOD GASES ARTERIAL RT STAT 11/08/2020 8:57 AM CDT GLUCOSE - POINT OF CARE Routine 11/08/2020 5:22 AM CDT CBC W AUTO DIFFERENTIAL AM Draw 11/08/2020 4:05 AM CDT GLUCOSE - POINT OF CARE Routine 11/07/2020 11:10 PM CDT GLUCOSE - POINT OF CARE Routine 11/07/2020 5:29 PM CDT GLUCOSE - POINT OF CARE Routine 11/07/2020 11:45 AM CDT BLOOD GASES ARTERIAL Timed 11/07/2020 7:29 AM CDT CBC W AUTO DIFFERENTIAL AM Draw 11/07/2020 3:27 AM CDT RENAL FUNCTION PANEL AM Draw 11/07/2020 3:27 AM CDT MAGNESIUM BLOOD Routine 11/07/2020 3:27 AM CDT GLUCOSE - POINT OF CARE Routine 11/07/2020 12:02 AM CDT GLUCOSE - POINT OF CARE Routine 11/06/2020 5:15 PM CDT GLUCOSE - POINT OF CARE Routine 11/06/2020 11:40 AM CDT GLUCOSE - POINT OF CARE Routine 11/06/2020 6:31 AM CDT BLOOD GASES ARTERIAL Timed 11/06/2020 5:23 AM CDT CBC W AUTO DIFFERENTIAL AM Draw 11/06/2020 4:20 AM CDT TRIGLYCERIDES BLOOD AM Draw 11/06/2020 4 :20 AM CDT COMPREHENSIVE METABOLIC PANEL AM Draw 11/06/2020 4:20 AM CDT PHOSPHORUS BLOOD Routine 11/06/2020 4:20 AM CDT MAGNESIUM BLOOD Routine 11/06/2020 4:20 AM CDT XR ABDOMEN KUB Routine 11/06/2020 1:02 AM CDT Chronic respiratory failure, unspecified whether with hypoxia or hypercapnia (HCC) GLUCOSE - POINT OF CARE Routine 11/06/2020 12:32 AM CDT GLUCOSE - POINT OF CARE Routine 11/05/2020 5:43 PM CDT GLUCOSE - POINT OF CARE Routine 11/05/2020 12:17 PM CDT CULTURE MRSA Routine 11/05/2020 11:54 AM CDT XR ABDOMEN KUB STAT 11/05/2020 9:07 AM CDT Chronic respiratory failure with hypoxia and hypercapnia (HCC) SARS-COV-2 (COVID-19) IN HOUSE Routine 11/05/2020 8:40 AM CDT EKG 12-LEAD Routine 11/05/2020 8:34 AM CDT Chronic respiratory failure with hypoxia and hypercapnia (HCC) TROPONIN I STAT 11/05/2020 8:01 AM CDT HEMOGLOBIN A1C Routine 11/05/2020 4:33 AM CDT CBC W AUTO DIFFERENTIAL AM Draw 11/05/2020 4:33 AM CDT BASIC METABOLIC PANEL (CALCIUM TOTAL) AM Draw 11/05/2020 4:33 AM CDT MAGNESIUM BLOOD AM Draw 11/05/2020 4:33 AM CDT GLUCOSE - POINT OF CARE Routine 11/05/2020 1:20 AM CDT CULTURE SPUTUM+GRAM STAIN Routine 11/04/2020 11:29 PM CDT CULTURE BLOOD Timed 11/04/2020 10:19 PM CDT CULTURE BLOOD Timed 11/04/2020 10:12 PM CDT URINALYSIS REFLEX TO MICROSCOPIC NO CULTURE STAT 11/04/2020 9:54 PM CDT URINE MICROSCOPIC ONLY STAT 9:54 PM CDT STREP PNEUMONIAE ANTIGEN URINE Routine 11/04/2020 9:54 PM CDT LEGIONELLA ANTIGEN URINE Routine 11/04/2020 9:54 PM CDT PROCALCITONIN LEVEL STAT 11/04/2020 8 :54 PM CDT CBC W AUTO DIFFERENTIAL STAT 11/04/2020 8:54 PM CDT B-TYPE NATRIURETIC PEPTIDE STAT 11/04/2020 8:54 PM CDT COMPREHENSIVE METABOLIC PANEL STAT 11/04/2020 8:54 PM CDT MAGNESIUM BLOOD STAT 11/04/2020 8:54 PM CDT LACTIC ACID BLOOD STAT 11/04/2020 8:5 4 PM CDT BLOOD GASES ARTERIAL RT STAT 11/04/2020 8:45 PM CDT XR CHEST 1VW PORTABLE STAT 11/04/2020 8:00 PM CDT Chronic respiratory failure with hypoxia and hypercapnia (HCC) documented in this encounter Results * CARDIAC RHYTHM STRIP ORDER (11/17/2020 [...] POINT OF CARE (11/16/2020 8:15 AM CDT) Glucose WB/POC 122(H) 70 - 106 mg/dL 11/18/2020 6:08 AM CDT [facility] Specimen Type Arterial/C apillary 11/18/2020 6:08 AM CDT [facility] Blood BLOOD SPECIMEN / Unknown 11/16/2020 8:15 AM CDT 11/18/2020 6:08 AM CDT Anh Griffith MD LAB - POINT OF CARE ORDERABLES Performing Organization Address City/[facility] Co de Phone Number [facility] [address] [place], [place] [phone] * (ABNORMAL) GLUCOSE - POINT OF CARE (11/15/2020 7:43 PM CDT) Pathologist [facility] Glucose WB/POC 187(H) 70 - 106 mg/dL 11/18/2020 6:00 AM CDT [facility] Specimen Type Arterial/C apillary 11/18/2020 6:00 AM CDT [facility] Blood BLOOD SPECIMEN / Unknown 11/15/2020 7:43 PM CDT 11/18/2020 6:00 AM CDT Anh Griffith MD LAB - POINT OF CARE ORDERABLES Performing Organization Address City/[facility]/ZIP Co de Phone Number [facility] [address] [place] [phone] * (ABNORMAL) GLUCOSE - POINT OF CARE (11/15/2020 5:32 PM CDT) Glucose WB/POC 119(H) 70 - 106 mg/dL 11/15/2020 5:45 PM CDT [facility] Specimen Type Arterial/C apillary 11/15/2020 5:45 PM CDT [facility] Blood BLOOD SPECIMEN / Unknown 11/15/2020 5:32 PM CDT 11/15/2020 5:45 PM CDT Anh Griffith MD LAB - POINT OF CARE ORDERABLES [facility] [address] [place] [phone] * (ABNORMAL) GLUCOSE - POINT OF CARE (11/15/2020 12:24 PM CDT) Glucose WB/POC 113(H) 70 - 106 mg/dL 11/15/2020 12:31 PM CDT [facility] Specimen Type Arterial/C apillary 11/15/2020 12:31 PM CDT [facility] Blood BLOOD SPECIMEN / Unknown 11/15/2020 12:24 PM CDT 11/15/2020 12:31 PM CDT Anh Griffith MD LAB - POINT OF CARE ORDERABLES Performing Organization Address [facility]/ZIP Co de Phone Number [facility] [address] [place] [phone] * GLUCOSE - POINT OF CARE (11/15/2020 8:30 AM CDT) Glucose WB/POC 99 70 - 106 mg/dL 11/18/2020 6:00 AM CDT [facility] Specimen Type Arterial/C apillary 11/18/2020 6:00 AM CDT [facility] Blood BLOOD SPECIMEN / Unknown 11/15/2020 8:30 AM CDT 11/18/2020 6:00 AM CDT Anh Griffith MD LAB - POINT OF CARE ORDERABLES Performing Organization Address City/[facility]/ZIP Co de Phone Number [facility] [address] [place] [phone] * (ABNORMAL) GLUCOSE - POINT OF CARE (11/14/2020 8:01 PM CDT) Glucose WB/POC 157(H) 70 - 106 mg/dL 11/18/2020 6:00 AM CDT [facility] Specimen Type Arterial/C apillary 11/18/2020 6:00 AM CDT [facility] Blood BLOOD SPECIMEN / Unknown 11/14/2020 8:01 PM CDT 11/18/2020 6:00 AM CDT Altaf Arias MD LAB - POINT OF CARE ORDERABLES [facility] [address] [place] [phone] * (ABNORMAL) GLUCOSE - POINT OF CARE (11/14/2020 4:16 PM CDT) Glucose WB/POC 118(H) 70 - 106 mg/dL 11/14/2020 5:26 PM CDT [facility] Specimen Type Arterial/C apillary 11/14/2020 5:26 PM CDT [facility] Blood BLOOD SPECIMEN / Unknown 11/14/2020 4:16 PM CDT 11/14/2020 5:26 PM CDT Altaf Arias MD LAB - POINT OF CARE ORDERABLES [facility] [address] [place] [phone] * (ABNORMAL) GLUCOSE - POINT OF CARE (11/14/2020 1:31 PM CDT) Glucose WB/POC 121(H) 70 - 106 mg/dL 11/14/2020 1:44 PM CDT [facility] Specimen Type Arterial/C apillary 11/14/2020 1:44 PM CDT [facility] Blood BLOOD SPECIMEN / Unknown 11/14/2020 1:31 PM CDT 11/14/2020 1:44 PM CDT Altaf Arias MD LAB - POINT OF CARE ORDERABLES Performing Organization Address [facility] Co de Phone Number [facility] [address] [place] [phone] * (ABNORMAL) GLUCOSE - POINT OF CARE (11/14/2020 5:55 AM CDT) Glucose WB/POC 107(H) 70 - 106 mg/dL 11/14/2020 8:05 AM CDT [facility] Specimen Type Arterial/C apillary 11/14/2020 8:05 AM CDT [facility] Blood BLOOD SPECIMEN / Unknown 11/14/2020 5:55 AM CDT 11/14/2020 8:05 AM CDT Altaf Arias MD LAB - POINT OF CARE ORDERABLES Performing Organization Address [facility] Co de Phone Number [facility] [address] [place] [phone] * MAGNESIUM BLOOD (11/14/2020 4:14 AM CDT) Magnesium 2.0 1.6 - 2.6 mg/dL 11/14/2020 5:14 AM CDT [facility] Blood BLOOD SPECIMEN / Unknown Lab Venipuncture / Unknown 11/14/2020 4:14 AM CDT 11/14/2020 4:35 AM CDT Tono Clinton MD LAB - CHEMISTRY ELIZABETH ETIENNE Performing Organization Address City/[facility]/ZIP Co de Phone Number [facility] [address] [place] [phone] * (ABNORMAL) COMPREHENSIVE METABOLIC PANEL (11/14/2020 4:14 AM CDT) Glucose 137(H) 70 - 105 mg/dL 11/14/2020 5:28 AM CDT [facility] Sodium 141 136 - 145 mmol/L 11/14/2020 5:28 AM CDT [facility] Potassium 3.8 3.5 - 5.1 mmol/L 11/14/2020 5:28 AM CDT [facility] Chloride 96(L) 98 - 107 mmol/L 11/14/2020 5:28 AM CDT [facility] CO2 42(HH) 23 - 31 mmol/L 11/14/2020 5:28 AM CDT [facility] Calcium 8.9 8.4 - 10.4 mg/dL 11/14/2020 5:28 AM CDT [facility] Anion Gap 3(L) 8 - 18 mmol/L 11/14/2020 5:28 AM CDT [facility] Comment:Attention clinician: ??Reference Range change. BUN 24(H) 9.8 - 20.1 mg/dL 11/14/2020 5:28 AM CDT [facility] Creatinine 0.58 0.57 - 1.11 mg/dL 11/14/2020 5:28 AM CDT [facility] Alkaline Phosphatase 61 40 - 150 U/L 11/14/2020 5:28 AM CDT [facility] Comment:Attention clinician: ??Reference Range change. ALT 23 0 - 61 U/L 11/14/2020 5:28 AM CDT [facility] AST 7 5 - 34 U/L 11/14/2020 5:28 AM CDT [facility] Protein Total 5.6(L) 6.4 - 8.3 gm/dL 11/14/2020 5:28 AM CDT [facility] Albumin 3.2 3.2 - 4.6 gm/dL 11/14/2020 5:28 AM CDT [facility] Bilirubin Total 0.3 0.2 - 1.2 mg/dL 11/14/2020 5:28 AM CDT [facility] Comment:Attention clinician: ??Reference Range change. eGFR by MDRD >60 mL/min/1.7 3m2 11/14/2020 5:28 AM CDT [facility] eGFR by MDRD >60 mL/min/1.7 3m2 11/14/2020 5:28 AM CDT [facility] Blood BLOOD SPECIMEN / Unknown Lab Venipuncture / Unknown 11/14/2020 4:14 AM CDT 11/14/2020 4:35 AM CDT Tono Clinton MD LAB - CHEMISTRY ORDE JAIMIE [facility] Organization Address City/State/ZIP Co de Phone Number [facility] [address] [place] [address] * (ABNORMAL) CBC W AUTO DIFFERENTIAL (11/14/2020 4:14 AM CDT) [facility] Signature WBC 6.9 4.4 - 10.7 x10E9/L 11/14/2020 4:49 AM CDT [facility] WBC Corrected 11/14/2020 4:49 AM CDT [facility] RBC 3.25(L) 3.80 - 5.20 x10E12/L 11/14/2020 4:49 AM CDT [facility] Hemoglobin 9.4(L) 12.0 - 15.6 gm/dL 11/14/2020 4:49 AM CDT [facility] Hematocrit 30.8(L) 35.9 - 45.5 % 11/14/2020 4:49 AM CDT [facility] MCV 94.8 80.7 - 98.3 fl 11/14/2020 4:49 AM CDT [facility] MCH 28.9 26.7 - 34.0 pg 11/14/2020 4:49 AM CDT [facility] MCHC 30.5(L) 30.8 - 35.9 gm/dL 11/14/2020 4:49 AM CDT [facility] Platelet Count 226 153 - 416 x10E9/L 11/14/2020 4:49 AM CDT [facility] RDW-CV 15.7(H) 12.1 - 14.9 % 11/14/2020 4:49 AM CDT [facility] MPV 9.5 9.4 - 12.9 fl 11/14/2020 4:49 AM CDT [facility] Neutrophils % 67.0 44.0 - 73.0 % 11/14/2020 4:49 AM CDT [facility] Lymphocytes % 22.3 20.0 - 43.0 % 11/14/2020 4:49 AM CDT [facility] Monocytes % 10.1 5.0 - 13.0 % 11/14/2020 4:49 AM CDT [facility] Eosinophils % 0.1 0.0 - 6.0 % 11/14/2020 4:49 AM CDT [facility] Basophils % 0.1 0.0 - 2.0 % 11/14/2020 4:49 AM CDT [facility] Immature Granulocytes 0.4 0 - 1 % 11/14/2020 4:49 AM CDT [facility] Neutrophil Absolute 4.63 2.01 - 7.14 x10E9/L 11/14/2020 4:49 AM CDT [facility] Lymphocytes Absolute 1.54 1.07 - 3.94 x10E9/L 11/14/2020 4:49 AM CDT [facility] Monocytes Absolute 0.70 0.26 - 1.07 x10E9/L 11/14/2020 4:49 AM CDT [facility] Eosinophils Absolute 0.01 0 - 0.47 x10E9/L 11/14/2020 4:49 AM CDT [facility] Basophils Absolute 0.01 0 - 0.08 x10E9/L 11/14/2020 4:49 AM CDT [facility] Immature Granulocytes Absolute 0.03 0.00 - 0.06 x10E9/L 11/14/2020 4:49 AM CDT [facility] nRBC Auto 0 /100 WBC 11/14/2020 4:49 AM CDT [facility] Blood BLOOD SPECIMEN / Unknown Lab Venipuncture / Unknown 11/14/2020 4:14 AM CDT 11/14/2020 4:35 AM CDT Carlos Velarde MD LAB - HEMATOLOGY ORD ERABLES Performing Organization Address City/State/[facility] Co de Phone Number [facility] [address] [place] [address] * (ABNORMAL) GLUCOSE - POINT OF CARE (11/13/2020 11:47 PM CDT) Glucose WB/POC 134(H) 70 - 106 mg/dL 11/14/2020 8:05 AM CDT [facility] Specimen Type Arterial/C apillary 11/14/2020 8:05 AM CDT [facility] Blood BLOOD SPECIMEN / Unknown 11/13/2020 11:47 PM CDT 11/14/2020 8:05 AM CDT Altaf Arias MD LAB - POINT OF CARE ORDERABLES Performing Organization Address [facility] Co de Phone Number [facility] [address] [place] [phone] * (ABNORMAL) GLUCOSE - POINT OF CARE (11/13/2020 6:39 PM CDT) Glucose WB/POC 301(H) 70 - 106 mg/dL 11/13/2020 6:45 PM CDT [facility] Specimen Type Arterial/C apillary 11/13/2020 6:45 PM CDT [facility] Blood BLOOD SPECIMEN / Unknown 11/13/2020 6:39 PM CDT 11/13/2020 6:45 PM CDT Altaf Arias MD LAB - POINT OF CARE ORDERABLES Performing Organization Address [facility] Co de Phone Number [facility] [address] [place] [phone] * GLUCOSE - POINT OF CARE (11/13/2020 12:26 PM CDT) Glucose WB/POC 102 70 - 106 mg/dL 11/13/2020 12:55 PM CDT [facility] Specimen Type Arterial/C apillary 11/13/2020 12:55 PM CDT [facility] Blood BLOOD SPECIMEN / Unknown 11/13/2020 12:26 PM CDT 11/13/2020 12:55 PM CDT Altaf Arias MD LAB - POINT OF CARE ORDERABLES Performing Organization Address [facility] Co de Phone Number [facility] [address] [place] [phone] * (ABNORMAL) GLUCOSE - POINT OF CARE (11/13/2020 6:00 AM CDT) Glucose WB/POC 118(H) 70 - 106 mg/dL 11/13/2020 6:25 AM CDT [facility] Specimen Type Arterial/C apillary 11/13/2020 6:25 AM CDT [facility] Blood BLOOD SPECIMEN / Unknown 11/13/2020 6:00 AM CDT 11/13/2020 6:25 AM CDT Altaf Arias MD LAB - POINT OF CARE ORDERABLES Performing Organization Address City/[facility]/ZIP Co de Phone Number [facility] [address] [place] [phone] * (ABNORMAL) GLUCOSE - POINT OF CARE (11/12/2020 11:23 PM CDT) Glucose WB/POC 131(H) 70 - 106 mg/dL 11/13/2020 6:24 AM CDT [facility] Specimen Type Arterial/C apillary 11/13/2020 6:24 AM CDT [facility] Blood BLOOD SPECIMEN / Unknown 11/12/2020 11:23 PM CDT 11/13/2020 6:24 AM CDT Altaf Arias MD LAB - POINT OF CARE ORDERABLES Performing Organization Address [facility] Co de Phone Number [facility] [address] [place] [phone] * (ABNORMAL) GLUCOSE - POINT OF CARE (11/12/2020 6:08 PM CDT) Glucose WB/POC 247(H) 70 - 106 mg/dL 11/12/2020 6:37 PM CDT [facility] Specimen Type Arterial/C apillary 11/12/2020 6:37 PM CDT [facility] Blood BLOOD SPECIMEN / Unknown 11/12/2020 6:08 PM CDT 11/12/2020 6:37 PM CDT Altaf Arias MD LAB - POINT OF CARE ORDERABLES Performing Organization Address City/[facility] Co de Phone Number [facility] [address] [place] [phone] * (ABNORMAL) GLUCOSE - POINT OF CARE (11/12/2020 12:11 PM CDT) Glucose WB/POC 177(H) 70 - 106 mg/dL 11/12/2020 12:23 PM CDT [facility] Specimen Type Arterial/C apillary 11/12/2020 12:23 PM CDT [facility] Blood BLOOD SPECIMEN / Unknown 11/12/2020 12:11 PM CDT 11/12/2020 12:23 PM CDT Altaf Arias MD LAB - POINT OF CARE ORDERABLES Performing Organization Address City/[facility] Co de Phone Number [facility] [address] [place] [phone] * (ABNORMAL) GLUCOSE - POINT OF CARE (11/12/2020 5:40 AM CDT) Glucose WB/POC 126(H) 70 - 106 mg/dL 11/12/2020 6:23 AM CDT [facility] Specimen Type Arterial/C apillary 11/12/2020 6:23 AM CDT [facility] Blood BLOOD SPECIMEN / Unknown 11/12/2020 5:40 AM CDT 11/12/2020 6:22 AM CDT Altaf Arias MD LAB - POINT OF CARE ORDERABLES Performing Organization Address City/[facility] Co de Phone Number [facility] [address] [place] [address] * (ABNORMAL) SLIDE SCAN HEMATOLOGY (11/12/2020 4:24 AM CDT) WBC Morph Normal 11/12/2020 6:22 AM CDT [facility] RBC Morphology Normal 11/12/2020 6:22 AM CDT [facility] Platelet Estimation Adequate platelets Normal, Adequate platelets 11/12/2020 6:22 AM CDT [facility] Clumped Platelets Occasional(A ) None 11/12/2020 6:22 AM CDT [facility] Blood BLOOD SPECIMEN / Unknown Lab Venipuncture / Unknown 11/12/2020 4:24 AM CDT 11/12/2020 4:41 AM CDT Carlos Velarde MD LAB - HEMATOLOGY ORD EZRA Performing Organization Address [facility]/ZIP Co de Phone Number [facility] [address] [place], [place] [phone] * MAGNESIUM BLOOD (11/12/2020 4:24 AM CDT) Pathologist [facility] Magnesium 1.9 1.6 - 2.6 mg/dL 11/12/2020 5:14 AM CDT [facility] Blood BLOOD SPECIMEN / Unknown Lab Venipuncture / Unknown 11/12/2020 4:24 AM CDT 11/12/2020 4:41 AM CDT Tono Clinton MD LAB - CHEMISTRY ELIZABETH ETIENNE Performing Organization Address [facility] Co de Phone Number [facility] [address] [place], [place] [phone] * (ABNORMAL) COMPREHENSIVE METABOLIC PANEL (11/12/2020 4:24 AM CDT) [facility] Glucose 115(H) 70 - 105 mg/dL 11/12/2020 5:14 AM CDT [facility] Sodium 140 136 - 145 mmol/L 11/12/2020 5:14 AM CDT [facility] Potassium 4.5 3.5 - 5.1 mmol/L 11/12/2020 5:14 AM CDT [facility] Chloride 92(L) 98 - 107 mmol/L 11/12/2020 5:14 AM CDT [facility] CO2 38(H) 23 - 31 mmol/L 11/12/2020 5:14 AM CDT [facility] Calcium 8.9 8.4 - 10.4 mg/dL 11/12/2020 5:14 AM CDT [facility] Anion Gap 10 8 - 18 mmol/L 11/12/2020 5:14 AM CDT [facility] Comment:Attention clinician: ??Reference Range change. BUN 22(H) 9.8 - 20.1 mg/dL 11/12/2020 5:14 AM CDT [facility] Creatinine 0.60 0.57 - 1.11 mg/dL 11/12/2020 5:14 AM CDT [facility] Alkaline Phosphatase 57 40 - 150 U/L 11/12/2020 5:14 AM CDT [facility] Comment:Attention clinician: ??Reference Range change. ALT 32 0 - 61 U/L 11/12/2020 5:14 AM CDT [facility] AST 32 5 - 34 U/L 11/12/2020 5:14 AM CDT [facility] Protein Total 6.4 6.4 - 8.3 gm/dL 11/12/2020 5:14 AM CDT [facility] Albumin 3.3 3.2 - 4.6 gm/dL 11/12/2020 5:14 AM CDT [facility] Bilirubin Total 0.4 0.2 - 1.2 mg/dL 11/12/2020 5:14 AM CDT [facility] Comment:Attention clinician: ??Reference Range change. eGFR by MDRD >60 mL/min/1.7 3m2 11/12/2020 5:14 AM CDT [facility] eGFR by MDRD >60 mL/min/1.7 3m2 11/12/2020 5:14 AM CDT [facility] Blood BLOOD SPECIMEN / Unknown Lab Venipuncture / Unknown 11/12/2020 4:24 AM CDT 11/12/2020 4:41 AM CDT Tono Clinton MD LAB - CHEMISTRY ELIZABETH [facility] Organization Address City/State/[facility] Co de Phone Number [facility] [address] [place], [place] [phone] * (ABNORMAL) CBC W AUTO DIFFERENTIAL (11/12/2020 4:24 AM CDT) [facility] WBC 9.2 4.4 - 10.7 x10E9/L 11/12/2020 4:55 AM CDT [facility] WBC Corrected 11/12/2020 4:55 AM CDT [facility] RBC 2.93(L) 3.80 - 5.20 x10E12/L 11/12/2020 4:55 AM CDT [facility] Hemoglobin 8.6(L) 12.0 - 15.6 gm/dL 11/12/2020 4:55 AM CDT [facility] Hematocrit 27.0(L) 35.9 - 45.5 % 11/12/2020 4:55 AM CDT [facility] MCV 92.2 80.7 - 98.3 fl 11/12/2020 4:55 AM CDT [facility] MCH 29.4 26.7 - 34.0 pg 11/12/2020 4:55 AM CDT [facility] MCHC 31.9 30.8 - 35.9 gm/dL 11/12/2020 4:55 AM CDT [facility] Platelet Count 180 153 - 416 x10E9/L 11/12/2020 4:55 AM CDT [facility] RDW-CV 16.1(H) 12.1 - 14.9 % 11/12/2020 4:55 AM CDT [facility] MPV 11.1 9.4 - 12.9 fl 11/12/2020 4:55 AM CDT [facility] Neutrophils % 67.0 44.0 - 73.0 % 11/12/2020 4:55 AM CDT [facility] Lymphocytes % 20.5 20.0 - 43.0 % 11/12/2020 4:55 AM CDT [facility] Monocytes % 11.7 5.0 - 13.0 % 11/12/2020 4:55 AM CDT [facility] Eosinophils % 0.2 0.0 - 6.0 % 11/12/2020 4:55 AM CDT [facility] Basophils % 0.1 0.0 - 2.0 % 11/12/2020 4:55 AM CDT [facility] Immature Granulocytes 0.5 0 - 1 % 11/12/2020 4:55 AM CDT [facility] Neutrophil Absolute 6.18 2.01 - 7.14 x10E9/L 11/12/2020 4:55 AM CDT [facility] Lymphocytes Absolute 1.89 1.07 - 3.94 x10E9/L 11/12/2020 4:55 AM CDT [facility] Monocytes Absolute 1.08(H) 0.26 - 1.07 x10E9/L 11/12/2020 4:55 AM CDT [facility] Eosinophils Absolute 0.02 0 - 0.47 x10E9/L 11/12/2020 4:55 AM CDT [facility] Basophils Absolute 0.01 0 - 0.08 x10E9/L 11/12/2020 4:55 AM CDT [facility] Immature Granulocytes Absolute 0.05 0.00 - 0.06 x10E9/L 11/12/2020 4:55 AM CDT [facility] nRBC Auto 0 /100 WBC 11/12/2020 4:55 AM CDT [facility] Blood BLOOD SPECIMEN / Unknown Lab Venipuncture / Unknown 11/12/2020 4:24 AM CDT 11/12/2020 4:41 AM CDT Carlos Velarde MD LAB - HEMATOLOGY ORD ERABLES [facility] [address] [place] [phone] * (ABNORMAL) GLUCOSE - POINT OF CARE (11/11/2020 11:53 PM CDT) Glucose WB/POC 114(H) 70 - 106 mg/dL 11/12/2020 12:40 AM CDT [facility] Specimen Type Arterial/C apillary 11/12/2020 12:40 AM CDT [facility] Blood BLOOD SPECIMEN / Unknown 11/11/2020 11:53 PM CDT 11/12/2020 12:40 AM CDT Altaf Arias MD LAB - POINT OF CARE ORDERABLES [facility] [address] [place] [phone] * (ABNORMAL) GLUCOSE - POINT OF CARE (11/11/2020 5:55 PM CDT) Glucose WB/POC 206(H) 70 - 106 mg/dL 11/11/2020 6:41 PM CDT [facility] Specimen Type Arterial/C apillary 11/11/2020 6:41 PM CDT [facility] Blood BLOOD SPECIMEN / Unknown 11/11/2020 5:55 PM CDT 11/11/2020 6:41 PM CDT Altaf Arias MD LAB - POINT OF CARE ORDERABLES Performing Organization Address [facility]/ZIP Co de Phone Number [facility] [address] [place] [phone] * (ABNORMAL) GLUCOSE - POINT OF CARE (11/11/2020 1:55 PM CDT) Glucose WB/POC 177(H) 70 - 106 mg/dL 11/11/2020 2:11 PM CDT [facility] Specimen Type Arterial/C apillary 11/11/2020 2:11 PM CDT [facility] Blood BLOOD SPECIMEN / Unknown 11/11/2020 1:55 PM CDT 11/11/2020 2:11 PM CDT Altaf Arias MD LAB - POINT OF CARE ORDERABLES Performing Organization Address [facility] Co de Phone Number [facility] [address] [place] [phone] * MAGNESIUM BLOOD (11/11/2020 8:07 AM CDT) Pathologist [facility] Magnesium 1.9 1.6 - 2.6 mg/dL 11/11/2020 9:04 AM CDT [facility] Blood BLOOD SPECIMEN / Unknown Lab Venipuncture / Unknown 11/11/2020 8:07 AM CDT 11/11/2020 8:29 AM CDT Tono Clinton MD LAB - CHEMISTRY ELIZABETH ETIENNE Performing Organization Address [facility]/ZIP Co de Phone Number [facility] [address] [place] [phone] * (ABNORMAL) COMPREHENSIVE METABOLIC PANEL (11/11/2020 8:07 AM CDT) Glucose 102 70 - 105 mg/dL 11/11/2020 9:06 AM CDT [facility] Sodium 141 136 - 145 mmol/L 11/11/2020 9:06 AM CDT [facility] Potassium 3.6 3.5 - 5.1 mmol/L 11/11/2020 9:06 AM CDT [facility] Chloride 99 98 - 107 mmol/L 11/11/2020 9:06 AM CDT [facility] CO2 37(H) 23 - 31 mmol/L 11/11/2020 9:06 AM CDT [facility] Calcium 9.0 8.4 - 10.4 mg/dL 11/11/2020 9:06 AM CDT [facility] Anion Gap 5(L) 8 - 18 mmol/L 11/11/2020 9:06 AM CDT [facility] Comment:Attention clinician: ??Reference Range change. BUN 19 9.8 - 20.1 mg/dL 11/11/2020 9:06 AM CDT [facility] Creatinine 0.57 0.57 - 1.11 mg/dL 11/11/2020 9:06 AM CDT [facility] Alkaline Phosphatase 68 40 - 150 U/L 11/11/2020 9:06 AM CDT [facility] Comment:Attention clinician: ??Reference Range change. ALT 37 0 - 61 U/L 11/11/2020 9:06 AM CDT [facility] AST 12 5 - 34 U/L 11/11/2020 9:06 AM CDT [facility] Protein Total 6.0(L) 6.4 - 8.3 gm/dL 11/11/2020 9:06 AM CDT [facility] Albumin 3.3 3.2 - 4.6 gm/dL 11/11/2020 9:06 AM CDT [facility] Bilirubin Total 0.4 0.2 - 1.2 mg/dL 11/11/2020 9:06 AM CDT [facility] Comment:Attention clinician: ??Reference Range change. eGFR by MDRD >60 mL/min/1.7 3m2 11/11/2020 9:06 AM CDT [facility] eGFR by MDRD >60 mL/min/1.7 3m2 11/11/2020 9:06 AM CDT [facility] Blood BLOOD SPECIMEN / Unknown Lab Venipuncture / Unknown 11/11/2020 8:07 AM CDT 11/11/2020 8:29 AM CDT Tono Clinton MD LAB - CHEMISTRY [facility] Organization Address City/State/ZIP Co de Phone Number [facility] [address] [place] [address] * (ABNORMAL) CBC W AUTO DIFFERENTIAL (11/11/2020 8:07 AM CDT) WBC 11.4(H) 4.4 - 10.7 x10E9/L 11/11/2020 8:33 AM CDT [facility] WBC Corrected 11/11/2020 8:33 AM CDT [facility] RBC 3.74(L) 3.80 - 5.20 x10E12/L 11/11/2020 8:33 AM CDT [facility] Hemoglobin 11.0(L) 12.0 - 15.6 gm/dL 11/11/2020 8:33 AM CDT [facility] Hematocrit 35.4(L) 35.9 - 45.5 % 11/11/2020 8:33 AM CDT [facility] MCV 94.7 80.7 - 98.3 fl 11/11/2020 8:33 AM CDT [facility] MCH 29.4 26.7 - 34.0 pg 11/11/2020 8:33 AM CDT [facility] MCHC 31.1 30.8 - 35.9 gm/dL 11/11/2020 8:33 AM CDT [facility] Platelet Count 251 153 - 416 x10E9/L 11/11/2020 8:33 AM CDT [facility] RDW-CV 16.2(H) 12.1 - 14.9 % 11/11/2020 8:33 AM CDT [facility] MPV 9.6 9.4 - 12.9 fl 11/11/2020 8:33 AM CDT [facility] Neutrophils % 66.5 44.0 - 73.0 % 11/11/2020 8:33 AM CDT [facility] Lymphocytes % 21.4 20.0 - 43.0 % 11/11/2020 8:33 AM CDT [facility] Monocytes % 11.2 5.0 - 13.0 % 11/11/2020 8:33 AM CDT [facility] Eosinophils % 0.4 0.0 - 6.0 % 11/11/2020 8:33 AM CDT [facility] Basophils % 0.1 0.0 - 2.0 % 11/11/2020 8:33 AM CDT [facility] Immature Granulocytes 0.4 0 - 1 % 11/11/2020 8:33 AM CDT [facility] Neutrophil Absolute 7.57(H) 2.01 - 7.14 x10E9/L 11/11/2020 8:33 AM CDT [facility] Lymphocytes Absolute 2.44 1.07 - 3.94 x10E9/L 11/11/2020 8:33 AM CDT [facility] Monocytes Absolute 1.27(H) 0.26 - 1.07 x10E9/L 11/11/2020 8:33 AM CDT [facility] Eosinophils Absolute 0.04 0 - 0.47 x10E9/L 11/11/2020 8:33 AM CDT [facility] Basophils Absolute 0.01 0 - 0.08 x10E9/L 11/11/2020 8:33 AM CDT [facility] Immature Granulocytes Absolute 0.05 0.00 - 0.06 x10E9/L 11/11/2020 8:33 AM CDT [facility] nRBC Auto 0 /100 WBC 11/11/2020 8:33 AM CDT [facility] Blood BLOOD SPECIMEN / Unknown Lab Venipuncture / Unknown 11/11/2020 8:07 AM CDT 11/11/2020 8:29 AM CDT Carlos Velarde MD LAB - HEMATOLOGY ORD ERABLES Performing Organization Address City/State/[facility] Co de Phone Number [facility] [address] [place] [address] * (ABNORMAL) GLUCOSE - POINT OF CARE (11/11/2020 4:58 AM CDT) [facility] Glucose WB/POC 108(H) 70 - 106 mg/dL 11/14/2020 4:56 AM CDT [facility] Specimen Type Arterial/C apillary 11/14/2020 4:56 AM CDT [facility] Blood BLOOD SPECIMEN / Unknown 11/11/2020 4:58 AM CDT 11/14/2020 4:56 AM CDT Altaf Arias MD LAB - POINT OF CARE ORDERABLES Performing Organization Address [facility] Co de Phone Number [facility] [address] [place] [phone] * (ABNORMAL) GLUCOSE - POINT OF CARE (11/10/2020 6:19 PM CDT) Glucose WB/POC 141(H) 70 - 106 mg/dL 11/11/2020 8:04 AM CDT [facility] Specimen Type Arterial/C apillary 11/11/2020 8:04 AM CDT [facility] Blood BLOOD SPECIMEN / Unknown 11/10/2020 6:19 PM CDT 11/11/2020 8:04 AM CDT Altaf Arias MD LAB - POINT OF CARE ORDERABLES Performing Organization Address [facility] Co de Phone Number [facility] [address] [place] [phone] * (ABNORMAL) GLUCOSE - POINT OF CARE (11/10/2020 12:16 PM CDT) Glucose WB/POC 167(H) 70 - 106 mg/dL 11/10/2020 4:29 PM CDT [facility] Specimen Type Arterial/C apillary 11/10/2020 4:29 PM CDT [facility] Blood BLOOD SPECIMEN / Unknown 11/10/2020 12:16 PM CDT 11/10/2020 4:28 PM CDT Altaf Arias MD LAB - POINT OF CARE ORDERABLES Performing Organization Address [facility] Co de Phone Number [facility] [address] [place] [phone] * GLUCOSE - POINT OF CARE (11/10/2020 6:27 AM CDT) Glucose WB/POC 101 70 - 106 mg/dL 11/10/2020 6:35 AM CDT [facility] Specimen Type Arterial/C apillary 11/10/2020 6:35 AM CDT [facility] Blood BLOOD SPECIMEN / Unknown 11/10/2020 6:27 AM CDT 11/10/2020 6:35 AM CDT Altaf Arias MD LAB - POINT OF CARE ORDERABLES Performing Organization Address City/[facility]/ZIP Co de Phone Number [facility] [address] [place] [address] * MAGNESIUM BLOOD (11/10/2020 6:00 AM CDT) Magnesium 2.0 1.6 - 2.6 mg/dL 11/10/2020 6:39 AM CDT [facility] Blood BLOOD SPECIMEN / Unknown Lab Venipuncture / Unknown 11/10/2020 6:00 AM CDT 11/10/2020 6:04 AM CDT Tono Clinton MD LAB - CHEMISTRY ORDAugustin ETIENNE Performing Organization Address [facility] Co de Phone Number [facility] [address] [place] [phone] * (ABNORMAL) COMPREHENSIVE METABOLIC PANEL (11/10/2020 6:00 AM CDT) Glucose 97 70 - 105 mg/dL 11/10/2020 6:44 AM CDT [facility] Sodium 142 136 - 145 mmol/L 11/10/2020 6:44 AM CDT [facility] Potassium 2.9(L) 3.5 - 5.1 mmol/L 11/10/2020 6:44 AM CDT [facility] Chloride 99 98 - 107 mmol/L 11/10/2020 6:44 AM CDT [facility] CO2 40(H) 23 - 31 mmol/L 11/10/2020 6:44 AM CDT [facility] Calcium 8.8 8.4 - 10.4 mg/dL 11/10/2020 6:44 AM CDT [facility] Anion Gap 3(L) 8 - 18 mmol/L 11/10/2020 6:44 AM CDT [facility] Comment:Attention clinician: ??Reference Range change. BUN 21(H) 9.8 - 20.1 mg/dL 11/10/2020 6:44 AM CDT [facility] Creatinine 0.53(L) 0.57 - 1.11 mg/dL 11/10/2020 6:44 AM CDT [facility] Alkaline Phosphatase 64 40 - 150 U/L 11/10/2020 6:44 AM CDT [facility] Comment:Attention clinician: ??Reference Range change. ALT 53 0 - 61 U/L 11/10/2020 6:44 AM CDT [facility] AST 15 5 - 34 U/L 11/10/2020 6:44 AM CDT [facility] Protein Total 5.5(L) 6.4 - 8.3 gm/dL 11/10/2020 6:44 AM CDT [facility] Albumin 3.1(L) 3.2 - 4.6 gm/dL 11/10/2020 6:44 AM CDT [facility] Bilirubin Total 0.4 0.2 - 1.2 mg/dL 11/10/2020 6:44 AM CDT [facility] Comment:Attention clinician: ??Reference Range change. eGFR by MDRD >60 mL/min/1.7 3m2 11/10/2020 6:44 AM CDT [facility] eGFR by MDRD >60 mL/min/1.7 3m2 11/10/2020 6:44 AM CDT [facility] Blood BLOOD SPECIMEN / Unknown Lab Venipuncture / Unknown 11/10/2020 6:00 AM CDT 11/10/2020 6:04 AM CDT Tono Clinton MD LAB - CHEMISTRY ELIZABETH ETIENNE [facility] Organization Address City/State/[facility] Co de Phone Number [facility] [address] [place] [address] * (ABNORMAL) CBC W AUTO DIFFERENTIAL (11/10/2020 6:00 AM CDT) WBC 11.9(H) 4.4 - 10.7 x10E9/L 11/10/2020 6:42 AM CDT [facility] WBC Corrected 11/10/2020 6:42 AM CDT [facility] RBC 3.50(L) 3.80 - 5.20 x10E12/L 11/10/2020 6:42 AM CDT [facility] Hemoglobin 10.1(L) 12.0 - 15.6 gm/dL 11/10/2020 6:42 AM CDT [facility] Hematocrit 32.4(L) 35.9 - 45.5 % 11/10/2020 6:42 AM CDT [facility] MCV 92.6 80.7 - 98.3 fl 11/10/2020 6:42 AM CDT [facility] MCH 28.9 26.7 - 34.0 pg 11/10/2020 6:42 AM CDT [facility] MCHC 31.2 30.8 - 35.9 gm/dL 11/10/2020 6:42 AM CDT [facility] Platelet Count 237 153 - 416 x10E9/L 11/10/2020 6:42 AM CDT [facility] RDW-CV 16.3(H) 12.1 - 14.9 % 11/10/2020 6:42 AM CDT [facility] MPV 9.3(L) 9.4 - 12.9 fl 11/10/2020 6:42 AM CDT [facility] Neutrophils % 70.4 44.0 - 73.0 % 11/10/2020 6:42 AM CDT [facility] Lymphocytes % 16.2(L) 20.0 - 43.0 % 11/10/2020 6:42 AM CDT [facility] Monocytes % 12.5 5.0 - 13.0 % 11/10/2020 6:42 AM CDT [facility] Eosinophils % 0.1 0.0 - 6.0 % 11/10/2020 6:42 AM CDT [facility] Basophils % 0.1 0.0 - 2.0 % 11/10/2020 6:42 AM CDT [facility] Immature Granulocytes 0.7 0 - 1 % 11/10/2020 6:42 AM CDT [facility] Neutrophil Absolute 8.42(H) 2.01 - 7.14 x10E9/L 11/10/2020 6:42 AM CDT [facility] Lymphocytes Absolute 1.93 1.07 - 3.94 x10E9/L 11/10/2020 6:42 AM CDT [facility] Monocytes Absolute 1.49(H) 0.26 - 1.07 x10E9/L 11/10/2020 6:42 AM CDT [facility] Eosinophils Absolute 0.01 0 - 0.47 x10E9/L 11/10/2020 6:42 AM CDT [facility] Basophils Absolute 0.01 0 - 0.08 x10E9/L 11/10/2020 6:42 AM CDT [facility] Immature Granulocytes Absolute 0.08(H) 0.00 - 0.06 x10E9/L 11/10/2020 6:42 AM CDT [facility] nRBC Auto 0 /100 WBC 11/10/2020 6:42 AM CDT [facility] Blood BLOOD SPECIMEN / Unknown Lab Venipuncture / Unknown 11/10/2020 6:00 AM CDT 11/10/2020 6:04 AM CDT Carlos Velarde MD LAB - HEMATOLOGY ORD ERABLES Performing Organization Address City/[facility]/ZIP Co de Phone Number [facility] [address] [place] [phone] * GLUCOSE - POINT OF CARE (11/10/2020 12:03 AM CDT) Glucose WB/POC 105 70 - 106 mg/dL 11/10/2020 2:36 AM CDT [facility] Specimen Type Arterial/C apillary 11/10/2020 2:36 AM CDT [facility] Blood BLOOD SPECIMEN / Unknown 11/10/2020 12:03 AM CDT 11/10/2020 2:36 AM CDT Altaf Arias MD LAB - POINT OF CARE ORDERABLES [facility] [address] [place] [phone] * (ABNORMAL) GLUCOSE - POINT OF CARE (11/09/2020 5:29 PM CDT) Glucose WB/POC 137(H) 70 - 106 mg/dL 11/09/2020 5:41 PM CDT [facility] Specimen Type Arterial/C apillary 11/09/2020 5:41 PM CDT [facility] Blood BLOOD SPECIMEN / Unknown 11/09/2020 5:29 PM CDT 11/09/2020 5:41 PM CDT Altaf Arias MD LAB - POINT OF CARE ORDERABLES Performing Organization Address City/[facility]/ZIP Co de Phone Number [facility] [address] [place] [phone] * (ABNORMAL) GLUCOSE - POINT OF CARE (11/09/2020 12:11 PM CDT) Glucose WB/POC 168(H) 70 - 106 mg/dL 11/09/2020 12:18 PM CDT [facility] Specimen Type Arterial/C apillary 11/09/2020 12:18 PM CDT [facility] Blood BLOOD SPECIMEN / Unknown 11/09/2020 12:11 PM CDT 11/09/2020 12:18 PM CDT Altaf Arias MD LAB - POINT OF CARE ORDERABLES Performing Organization Address [facility]/ZIP Co de Phone Number [facility] [address] [place] [phone] * MAGNESIUM BLOOD (11/09/2020 5:26 AM CDT) Magnesium 2.2 1.6 - 2.6 mg/dL 11/09/2020 6:38 AM CDT [facility] Blood BLOOD SPECIMEN / Unknown Lab Venipuncture / Unknown 11/09/2020 5:26 AM CDT 11/09/2020 6:07 AM CDT Tono Clinton MD LAB - CHEMISTRY ELIZABETH ETIENNE Performing Organization Address City/[facility]/ZIP Co de Phone Number [facility] [address] [place] [phone] * (ABNORMAL) COMPREHENSIVE METABOLIC PANEL (11/09/2020 5:26 AM CDT) Glucose 135(H) 70 - 105 mg/dL 11/09/2020 6:39 AM CDT [facility] Sodium 144 136 - 145 mmol/L 11/09/2020 6:39 AM CDT [facility] Potassium 4.8 3.5 - 5.1 mmol/L 11/09/2020 6:39 AM CDT [facility] Chloride 97(L) 98 - 107 mmol/L 11/09/2020 6:39 AM CDT [facility] CO2 43(HH) 23 - 31 mmol/L 11/09/2020 6:39 AM CDT [facility] Calcium 9.1 8.4 - 10.4 mg/dL 11/09/2020 6:39 AM CDT [facility] Anion Gap 4(L) 8 - 18 mmol/L 11/09/2020 6:39 AM CDT [facility] Comment:Attention clinician: ??Reference Range change. BUN 27(H) 9.8 - 20.1 mg/dL 11/09/2020 6:39 AM CDT [facility] Creatinine 0.62 0.57 - 1.11 mg/dL 11/09/2020 6:39 AM CDT [facility] Alkaline Phosphatase 68 40 - 150 U/L 11/09/2020 6:39 AM CDT [facility] Comment:Attention clinician: ??Reference Range change. ALT 86(H) 0 - 61 U/L 11/09/2020 6:39 AM CDT [facility] AST 22 5 - 34 U/L 11/09/2020 6:39 AM CDT [facility] Protein Total 6.0(L) 6.4 - 8.3 gm/dL 11/09/2020 6:39 AM CDT [facility] Albumin 3.4 3.2 - 4.6 gm/dL 11/09/2020 6:39 AM CDT [facility] Bilirubin Total 0.5 0.2 - 1.2 mg/dL 11/09/2020 6:39 AM CDT [facility] Comment:Attention clinician: ??Reference Range change. eGFR by MDRD >60 mL/min/1.7 3m2 11/09/2020 6:39 AM CDT [facility] eGFR by MDRD >60 mL/min/1.7 3m2 11/09/2020 6:39 AM CDT [facility] Blood BLOOD SPECIMEN / Unknown Lab Venipuncture / Unknown 11/09/2020 5:26 AM CDT 11/09/2020 6:07 AM CDT Tono Clinton MD LAB - CHEMISTRY ELIZABETH ETIENNE [facility] Organization Address City/State/ZIP Co de Phone Number [facility] [address] [place], [place] [phone] * (ABNORMAL) CBC W AUTO DIFFERENTIAL (11/09/2020 5:26 AM CDT) WBC 11.3(H) 4.4 - 10.7 x10E9/L 11/09/2020 6:13 AM CDT [facility] WBC Corrected 11/09/2020 6:13 AM CDT [facility] RBC 3.49(L) 3.80 - 5.20 x10E12/L 11/09/2020 6:13 AM CDT [facility] Hemoglobin 10.2(L) 12.0 - 15.6 gm/dL 11/09/2020 6:13 AM CDT [facility] Hematocrit 33.6(L) 35.9 - 45.5 % 11/09/2020 6:13 AM CDT [facility] MCV 96.3 80.7 - 98.3 fl 11/09/2020 6:13 AM CDT [facility] MCH 29.2 26.7 - 34.0 pg 11/09/2020 6:13 AM CDT [facility] MCHC 30.4(L) 30.8 - 35.9 gm/dL 11/09/2020 6:13 AM CDT [facility] Platelet Count 227 153 - 416 x10E9/L 11/09/2020 6:13 AM CDT [facility] RDW-CV 16.6(H) 12.1 - 14.9 % 11/09/2020 6:13 AM CDT [facility] MPV 9.8 9.4 - 12.9 fl 11/09/2020 6:13 AM CDT [facility] Neutrophils % 85.3(H) 44.0 - 73.0 % 11/09/2020 6:13 AM CDT [facility] Lymphocytes % 7.1(L) 20.0 - 43.0 % 11/09/2020 6:13 AM CDT [facility] Monocytes % 6.6 5.0 - 13.0 % 11/09/2020 6:13 AM CDT [facility] Eosinophils % 0.0 0.0 - 6.0 % 11/09/2020 6:13 AM CDT [facility] Basophils % 0.1 0.0 - 2.0 % 11/09/2020 6:13 AM CDT [facility] Immature Granulocytes 0.9 0 - 1 % 11/09/2020 6:13 AM CDT [facility] Neutrophil Absolute 9.64(H) 2.01 - 7.14 x10E9/L 11/09/2020 6:13 AM CDT [facility] Lymphocytes Absolute 0.80(L) 1.07 - 3.94 x10E9/L 11/09/2020 6:13 AM CDT [facility] Monocytes Absolute 0.74 0.26 - 1.07 x10E9/L 11/09/2020 6:13 AM CDT [facility] Eosinophils Absolute 0.00 0 - 0.47 x10E9/L 11/09/2020 6:13 AM CDT [facility] Basophils Absolute 0.01 0 - 0.08 x10E9/L 11/09/2020 6:13 AM CDT [facility] Immature Granulocytes Absolute 0.10(H) 0.00 - 0.06 x10E9/L 11/09/2020 6:13 AM CDT [facility] nRBC Auto 0 /100 WBC 11/09/2020 6:13 AM T [facility] Blood BLOOD SPECIMEN / Unknown Lab Venipuncture / Unknown 11/09/2020 5:26 AM CDT 11/09/2020 6:07 AM CDT Carlos Velarde MD LAB - HEMATOLOGY ORD ERABLES [facility] [address] [place] [address] * (ABNORMAL) GLUCOSE - POINT OF CARE (11/09/2020 5:12 AM CDT) [facility] Glucose WB/POC 151(H) 70 - 106 mg/dL 11/09/2020 5:18 AM CDT [facility] Specimen Type Arterial/C apillary 11/09/2020 5:18 AM CDT [facility] Blood BLOOD SPECIMEN / Unknown 11/09/2020 5:12 AM CDT 11/09/2020 5:18 AM CDT Tono Clinton MD LAB - POINT OF CARE ORDERABLES [facility] [address] [place] [phone] * (ABNORMAL) GLUCOSE - POINT OF CARE (11/08/2020 11:26 PM CDT) Glucose WB/POC 156(H) 70 - 106 mg/dL 11/09/2020 5:18 AM CDT [facility] Specimen Type Arterial/C apillary 11/09/2020 5:18 AM CDT [facility] Blood BLOOD SPECIMEN / Unknown 11/08/2020 11:26 PM CDT 11/09/2020 5:18 AM CDT Tono Clinton MD LAB - POINT OF CARE ORDERABLES [facility] [address] [place] [phone] * (ABNORMAL) GLUCOSE - POINT OF CARE (11/08/2020 6:08 PM CDT) Glucose WB/POC 136(H) 70 - 106 mg/dL 11/09/2020 5:18 AM CDT [facility] Specimen Type Venous 11/09/2020 5:18 AM CDT [facility] Blood BLOOD SPECIMEN / Unknown 11/08/2020 6:08 PM CDT 11/09/2020 5:18 AM CDT Tono Clinton MD LAB - POINT OF CARE ORDERABLES [facility] [address] [place] [phone] * (ABNORMAL) BLOOD GASES ARTERIAL (11/08/2020 3:24 PM CDT) pH Arterial 7.39 7.35 - 7.45 pH [...] RESP THERAPY Liter Flow (LPM) 2.00 11/09/19 3:37 PM CDT [facility] Sample Site R Radial 11/08/2020 3:37 PM CDT [facility] Sample Type Arterial 11/08/2020 3:37 PM CDT [facility] Supervisor Front ID [phone] 11/08/2020 3:37 PM CDT [facility] Blood, arterial ARTERIAL BLOOD SPECIMEN / Unknown 11/08/2020 3:24 PM CDT 11/08/2020 3:24 PM CDT Tono Clinton MD LAB - BLOOD GASES OR DERABLES Performing Organization Address [facility]/ZIP Co de Phone Number [facility] [address] [place] [address] * (ABNORMAL) GLUCOSE - POINT OF CARE (11/08/2020 11:44 AM CDT) Glucose WB/POC 216(H) 70 - 106 mg/dL 11/09/2020 5:18 AM CDT [facility] Specimen Type Venous 11/09/2020 5:18 AM CDT [facility] Blood BLOOD SPECIMEN / Unknown 11/08/2020 11:44 AM CDT 11/09/2020 5:18 AM CDT Tono Clinton MD LAB - POINT OF CARE ORDERABLES Performing Organization Address [facility] Co de Phone Number [facility] [address] [place] [address] * (ABNORMAL) BLOOD GASES ARTERIAL (11/08/2020 8:57 AM CDT) pH Arterial 7.41 7.35 - 7.45 pH 11/08/2020 9:02 AM CDT [facility] pCO2 Arterial 64(H) 35 - 45 mm hg 11/08/2020 9:02 AM CDT [facility] Comment:H pO2 Arterial 67(L) 80 - 100 mm hg 11/08/2020 9:02 AM CDT [facility] Comment:L HCO3 Arterial 39(H) 22 - 26 mmol/L 11/08/2020 9:02 AM CDT [facility] Comment:H BE Arterial 12.7(H) -2.0 - 2.0 mmol/L 11/08/2020 9:02 AM CDT [facility] Comment:H O2 Saturation Arterial 93 90 - 100 % 11/08/2020 9:02 AM CDT [facility] Hemoglobin Arterial 10.2(L) 12.0 - 15.6 gm/dL 11/08/2020 9:02 AM CDT [facility] Carboxyhemoglobin Arterial 0.3 0.0 - 2.5 % 11/08/2020 9:02 AM CDT [facility] Methemoglobin Arterial 0.5 0.0 - 2.0 % 11/08/2020 9:02 AM CDT [facility] Oxyhemoglobin Arterial 92 % 11/08/2020 9:02 AM CDT [facility] Mode Spontaneous 11/08/2020 9:02 AM CDT [facility] Samm's Test Positive 11/08/2020 9:02 AM CDT [facility] FI O2 30 % 11/08/2020 9:02 AM CDT [facility] PEEP (cmH2O) 5.0 11/08/2020 9:02 AM CDT [facility] Pressure Support (cmH2O) 5 11/08/2020 9:02 AM CDT [facility] Sample Site R Radial 11/08/2020 9:02 AM CDT [facility] Sample Type Arterial 11/08/2020 9:02 AM CDT [facility] Supervisor Front ID [phone] 11/08/2020 9:02 AM CDT [facility] Blood, arterial ARTERIAL BLOOD SPECIMEN / Unknown 11/08/2020 8:57 AM CDT 11/08/2020 8:57 AM CDT Tono Clinton MD LAB - BLOOD GASES OR DERABLES Performing Organization Address [facility] Co de Phone Number [facility] [address] [place] [address] * (ABNORMAL) GLUCOSE - POINT OF CARE (11/08/2020 5:22 AM CDT) [facility] Glucose WB/POC 208(H) 70 - 106 mg/dL 11/09/2020 12:51 AM CDT [facility] Specimen Type Arterial/C apillary 11/09/2020 12:51 AM CDT [facility] Blood BLOOD SPECIMEN / Unknown 11/08/2020 5:22 AM CDT 11/09/2020 12:51 AM CDT Tono Clinton MD LAB - POINT OF CARE ORDERABLES Performing Organization Address [facility] Co de Phone Number [facility] [address] [place] [address] * (ABNORMAL) CBC W AUTO DIFFERENTIAL (11/08/2020 4:05 AM CDT) [facility] WBC 9.0 4.4 - 10.7 x10E9/L 11/08/2020 4:25 AM CDT [facility] WBC Corrected 11/08/2020 4:25 AM CDT [facility] RBC 3.28(L) 3.80 - 5.20 x10E12/L 11/08/2020 4:25 AM CDT [facility] Hemoglobin 9.4(L) 12.0 - 15.6 gm/dL 11/08/2020 4:25 AM CDT [facility] Hematocrit 30.6(L) 35.9 - 45.5 % 11/08/2020 4:25 AM CDT [facility] MCV 93.3 80.7 - 98.3 fl 11/08/2020 4:25 AM CDT [facility] MCH 28.7 26.7 - 34.0 pg 11/08/2020 4:25 AM CDT [facility] MCHC 30.7(L) 30.8 - 35.9 gm/dL 11/08/2020 4:25 AM CDT [facility] Platelet Count 219 153 - 416 x10E9/L 11/08/2020 4:25 AM CDT [facility] RDW-CV 17.0(H) 12.1 - 14.9 % 11/08/2020 4:25 AM CDT [facility] MPV 10.5 9.4 - 12.9 fl 11/08/2020 4:25 AM CDT [facility] Neutrophils % 83.8(H) 44.0 - 73.0 % 11/08/2020 4:25 AM CDT [facility] Lymphocytes % 8.1(L) 20.0 - 43.0 % 11/08/2020 4:25 AM CDT [facility] Monocytes % 7.3 5.0 - 13.0 % 11/08/2020 4:25 AM CDT [facility] Eosinophils % 0.0 0.0 - 6.0 % 11/08/2020 4:25 AM CDT [facility] Basophils % 0.1 0.0 - 2.0 % 11/08/2020 4:25 AM CDT [facility] Immature Granulocytes 0.7 0 - 1 % 11/08/2020 4:25 AM CDT [facility] Neutrophil Absolute 7.52(H) 2.01 - 7.14 x10E9/L 11/08/2020 4:25 AM CDT [facility] Lymphocytes Absolute 0.73(L) 1.07 - 3.94 x10E9/L 11/08/2020 4:25 AM CDT [facility] Monocytes Absolute 0.66 0.26 - 1.07 x10E9/L 11/08/2020 4:25 AM CDT [facility] Eosinophils Absolute 0.00 0 - 0.47 x10E9/L 11/08/2020 4:25 AM CDT [facility] Basophils Absolute 0.01 0 - 0.08 x10E9/L 11/08/2020 4:25 AM CDT [facility] Immature Granulocytes Absolute 0.06 0.00 - 0.06 x10E9/L 11/08/2020 4:25 AM CDT [facility] nRBC Auto 0 /100 WBC 11/08/2020 4:25 AM CDT [facility] Blood BLOOD SPECIMEN / Unknown Venipuncture / Unknown 11/08/2020 4:05 AM CDT 11/08/2020 4:19 AM CDT Carlos Velarde MD LAB - HEMATOLOGY ORD ERABLES [facility] [address] [place] [address] * (ABNORMAL) GLUCOSE - POINT OF CARE (11/07/2020 11:10 PM CDT) [facility] Glucose WB/POC 201(H) 70 - 106 mg/dL 11/07/2020 11:24 PM CDT [facility] Specimen Type Arterial/C apillary 11/07/2020 11:24 PM CDT [facility] Blood BLOOD SPECIMEN / Unknown 11/07/2020 11:10 PM CDT 11/07/2020 11:24 PM CDT Tono Clinton MD LAB - POINT OF CARE ORDERABLES Performing Organization Address [facility] [[email or web address]] de Phone Number [facility] [address] [place] [address] [phone] * (ABNORMAL) GLUCOSE - POINT OF CARE (11/07/2020 5:29 PM CDT) Glucose WB/POC 201(H) 70 - 106 mg/dL 11/07/2020 11:24 PM CDT [facility] Specimen Type Venous 11/07/2020 11:24 PM CDT [facility] Blood BLOOD SPECIMEN / Unknown 11/07/2020 5:29 PM CDT 11/07/2020 11:24 PM CDT Tono Clinton MD LAB - POINT OF CARE ORDERABLES Performing Organization Address [facility] Co de Phone Number [facility] [address] [place] [address] [phone] * (ABNORMAL) GLUCOSE - POINT OF CARE (11/07/2020 11:45 AM CDT) Glucose WB/POC 186(H) 70 - 106 mg/dL 11/07/2020 11:24 PM CDT [facility] Specimen Type Venous 11/07/2020 11:24 PM CDT [facility] Blood BLOOD SPECIMEN / Unknown 11/07/2020 11:45 AM CDT 11/07/2020 11:24 PM CDT Carlos Velarde MD LAB - POINT OF CARE ORDERABLES Performing Organization Address [facility] Co de Phone Number [facility] [address] [place] [phone] * (ABNORMAL) BLOOD GASES ARTERIAL (11/07/2020 7:29 AM CDT) pH Arterial 7.30(L) 7.35 - 7.45 pH 11/07/2020 7:45 AM CDT [facility] Comment:L pCO2 Arterial 92(H) 35 - 45 mm hg 11/07/2020 7:45 AM CDT [facility] Comment:H pO2 Arterial 58(L) 80 - 100 mm hg 11/07/2020 7:45 AM CDT [facility] Comment:L HCO3 Arterial 44(H) 22 - 26 mmol/L 11/07/2020 7:45 AM CDT [facility] Comment:H BE Arterial 14.2(H) -2.0 - 2.0 mmol/L 11/07/2020 7:45 AM CDT [facility] Comment:H O2 Saturation Arterial 85(L) 90 - 100 % 11/07/2020 7:45 AM CDT [facility] Comment:L Hemoglobin Arterial 11.2(L) 12.0 - 15.6 gm/dL 11/07/2020 7:45 AM CDT [facility] Carboxyhemoglobin Arterial 0.3 0.0 - 2.5 % 11/07/2020 7:45 AM CDT [facility] Methemoglobin Arterial 0.5 0.0 - 2.0 % 11/07/2020 7:45 AM CDT [facility] Oxyhemoglobin Arterial 86 % 11/07/2020 7:45 AM CDT [facility] Comment:L Mode Spontaneous 11/07/2020 7:45 AM CDT [facility] S[place] Test Positive 11/07/2020 7:45 AM CDT [facility] FI O2 30 % 11/07/2020 7:45 AM CDT [facility] PEEP (cmH2O) 5.0 11/07/2020 7:45 AM CDT [facility] Pressure Support (cmH2O) 5 11/07/2020 7:45 AM CDT [facility] Sample Site R Radial 11/07/2020 7:45 AM CDT [facility] Sample Type Arterial 11/07/2020 7:45 AM CDT [facility] THERAPY Supervisor Front ID [phone] 11/07/2020 7:45 AM CDT [facility] Blood, arterial ARTERIAL BLOOD SPECIMEN / Unknown 11/07/2020 7:29 AM CDT 11/07/2020 7:29 AM CDT Carlos Velarde MD LAB - BLOOD GASES OR DERABLES Performing Organization Address City/State/[facility] Co de Phone Number [facility] [address] [phone] * (ABNORMAL) CBC W AUTO DIFFERENTIAL (11/07/2020 3:27 AM CDT) [facility] WBC 9.7 4.4 - 10.7 x10E9/L 11/07/2020 3:48 AM CDT [facility] WBC Corrected 11/07/2020 3:48 AM CDT [facility] RBC 2.99(L) 3.80 - 5.20 x10E12/L 11/07/2020 3:48 AM CDT [facility] Hemoglobin 8.7(L) 12.0 - 15.6 gm/dL 11/07/2020 3:48 AM CDT [facility] Hematocrit 28.4(L) 35.9 - 45.5 % 11/07/2020 3:48 AM CDT [facility] MCV 95.0 80.7 - 98.3 fl 11/07/2020 3:48 AM CDT [facility] MCH 29.1 26.7 - 34.0 pg 11/07/2020 3:48 AM CDT [facility] MCHC 30.6(L) 30.8 - 35.9 gm/dL 11/07/2020 3:48 AM CDT [facility] Platelet Count 235 153 - 416 x10E9/L 11/07/2020 3:48 AM CDT [facility] RDW-CV 17.4(H) 12.1 - 14.9 % 11/07/2020 3:48 AM CDT [facility] MPV 10.0 9.4 - 12.9 fl 11/07/2020 3:48 AM CDT [facility] Neutrophils % 92.0(H) 44.0 - 73.0 % 11/07/2020 3:48 AM CDT [facility] Lymphocytes % 4.5(L) 20.0 - 43.0 % 11/07/2020 3:48 AM CDT [facility] Monocytes % 3.0(L) 5.0 - 13.0 % 11/07/2020 3:48 AM CDT [facility] Eosinophils % 0.0 0.0 - 6.0 % 11/07/2020 3:48 AM CDT [facility] Basophils % 0.1 0.0 - 2.0 % 11/07/2020 3:48 AM CDT [facility] Immature Granulocytes 0.4 0 - 1 % 11/07/2020 3:48 AM CDT [facility] Neutrophil Absolute 8.92(H) 2.01 - 7.14 x10E9/L 11/07/2020 3:48 AM CDT [facility] Lymphocytes Absolute 0.44(L) 1.07 - 3.94 x10E9/L 11/07/2020 3:48 AM CDT [facility] Monocytes Absolute 0.29 0.26 - 1.07 x10E9/L 11/07/2020 3:48 AM CDT [facility] Eosinophils Absolute 0.00 0 - 0.47 x10E9/L 11/07/2020 3:48 AM CDT [facility] Basophils Absolute 0.01 0 - 0.08 x10E9/L 11/07/2020 3:48 AM CDT [facility] Immature Granulocytes Absolute 0.04 0.00 - 0.06 x10E9/L 11/07/2020 3:48 AM CDT [facility] nRBC Auto 0 /100 WBC 11/07/2020 3:48 AM CDT [facility] Blood BLOOD SPECIMEN / Unknown Venipuncture / Unknown 11/07/2020 3:27 AM CDT 11/07/2020 3:32 AM CDT Carlos Velarde MD [facility] Organization Address City/State/[facility] Co de Phone Number [facility] [address] [place], [place] [phone] * MAGNESIUM BLOOD (11/07/2020 3:27 AM CDT) [facility] Magnesium 2.1 1.6 - 2.6 mg/dL 11/07/2020 4:09 AM CDT [facility] Blood BLOOD SPECIMEN / Unknown Venipuncture / Unknown 11/07/2020 3:27 AM CDT 11/07/2020 3:32 AM CDT Carlos Velarde MD LAB - CHEMISTRY ORDE JAIMIE [facility] Organization Address City/State/ZIP Co de Phone Number [facility] [address] [place] [address] * (ABNORMAL) RENAL FUNCTION PANEL (11/07/2020 3:27 AM CDT) Glucose 192(H) 70 - 105 mg/dL 11/07/2020 4:10 AM CDT [facility] Sodium 141 136 - 145 mmol/L 11/07/2020 4:10 AM CDT [facility] Potassium 4.1 3.5 - 5.1 mmol/L 11/07/2020 4:10 AM CDT [facility] Chloride 97(L) 98 - 107 mmol/L 11/07/2020 4:10 AM CDT [facility] CO2 37(H) 23 - 31 mmol/L 11/07/2020 4:10 AM CDT [facility] Calcium 8.4 8.4 - 10.4 mg/dL 11/07/2020 4:10 AM CDT [facility] Anion Gap 7(L) 8 - 18 mmol/L 11/07/2020 4:10 AM CDT [facility] Comment:Attention clinician: ??Reference Range change. BUN 32(H) 9.8 - 20.1 mg/dL 11/07/2020 4:10 AM CDT [facility] Creatinine 0.64 0.57 - 1.11 mg/dL 11/07/2020 4:10 AM CDT [facility] Albumin 2.9(L) 3.2 - 4.6 gm/dL 11/07/2020 4:10 AM CDT [facility] Phosphorus 3.6 2.3 - 4.7 mg/dL 11/07/2020 4:10 AM CDT [facility] Comment:Attention clinician: ??Reference Range change. eGFR by MDRD >60 mL/min/1.7 3m2 11/07/2020 4:10 AM CDT [facility] eGFR by MDRD >60 mL/min/1.7 3m2 11/07/2020 4:10 AM CDT [facility] Blood BLOOD SPECIMEN / Unknown Venipuncture / Unknown 11/07/2020 3:27 AM CDT 11/07/2020 3:32 AM CDT Carlos Velarde MD LAB - CHEMISTRY ELIZABETH ETIENNE [facility] [address] [place] [address] [phone] * (ABNORMAL) GLUCOSE - POINT OF CARE (11/07/2020 12:02 AM CDT) Glucose WB/POC 184(H) 70 - 106 mg/dL 11/07/2020 12:11 AM CDT [facility] Specimen Type Arterial/C apillary 11/07/2020 12:11 AM CDT [facility] Blood BLOOD SPECIMEN / Unknown 11/07/2020 12:02 AM CDT 11/07/2020 12:11 AM CDT Carlos Velarde MD LAB - POINT OF CARE ORDERABLES Performing Organization Address City/[facility]/ZIP Co de Phone Number [facility] [address] [place] [phone] * (ABNORMAL) GLUCOSE - POINT OF CARE (11/06/2020 5:15 PM CDT) Glucose WB/POC 186(H) 70 - 106 mg/dL 11/07/2020 9:05 AM CDT [facility] Specimen Type Arterial/C apillary 11/07/2020 9:05 AM CDT [facility] Blood BLOOD SPECIMEN / Unknown 11/06/2020 5:15 PM CDT 11/07/2020 9:05 AM CDT Carlos Velarde MD LAB - POINT OF CARE ORDERABLES [facility] [address] [place] [phone] * (ABNORMAL) GLUCOSE - POINT OF CARE (11/06/2020 11:40 AM CDT) Glucose WB/POC 180(H) 70 - 106 mg/dL 11/07/2020 9:05 AM CDT [facility] Specimen Type Arterial/C apillary 11/07/2020 9:05 AM CDT [facility] Blood BLOOD SPECIMEN / Unknown 11/06/2020 11:40 AM CDT 11/07/2020 9:05 AM CDT Carlos Velarde MD LAB - POINT OF CARE ORDERABLES Performing Organization Address [facility] Co de Phone Number [facility] [address] [place] [phone] * (ABNORMAL) GLUCOSE - POINT OF CARE (11/06/2020 6:31 AM CDT) [facility] Glucose WB/POC 209(H) 70 - 106 mg/dL 11/07/2020 12:11 AM CDT [facility] Specimen Type Arterial/C apillary 11/07/2020 12:11 AM CDT [facility] Blood BLOOD SPECIMEN / Unknown 11/06/2020 6:31 AM CDT 11/07/2020 12:11 AM CDT Carlos Velarde MD LAB - POINT OF CARE ORDERABLES Performing Organization Address [facility] [[email or web address]] de Phone Number [facility] [address] [place] [phone] * (ABNORMAL) BLOOD GASES ARTERIAL (11/06/2020 5:23 AM CDT) Pathologist [facility] pH Arterial 7.46(H) 7.35 - 7.45 pH 11/06/2020 5:44 AM CDT [facility] Comment:H pCO2 Arterial 58(H) 35 - 45 mm hg 11/06/2020 5:44 AM CDT [facility] Comment:H pO2 Arterial 56(L) 80 - 100 mm hg 11/06/2020 5:44 AM CDT [facility] Comment:L HCO3 Arterial 41(H) 22 - 26 mmol/L 11/06/2020 5:44 AM CDT [facility] Comment:H BE Arterial 14.9(H) -2.0 - 2.0 mmol/L 11/06/2020 5:44 AM CDT [facility] Comment:H O2 Saturation Arterial 90 90 - 100 % 11/06/2020 5:44 AM CDT [facility] Comment:L Hemoglobin Arterial 10.8(L) 12.0 - 15.6 gm/dL 11/06/2020 5:44 AM CDT [facility] Carboxyhemoglobin Arterial 0.0 0.0 - 2.5 % 11/06/2020 5:44 AM CDT [facility] Methemoglobin Arterial 0.5 0.0 - 2.0 % 11/06/2020 5:44 AM CDT [facility] Oxyhemoglobin Arterial 89 % 11/06/2020 5:44 AM CDT [facility] Comment:L Mode CMV 11/06/2020 5:44 AM CDT [facility] Samm's Test Positive 11/06/2020 5:44 AM CDT [facility] FI O2 25 % 11/06/2020 5:44 AM CDT [facility] Tidal Volume 350 mL 11/06/2020 5:44 AM CDT [facility] PEEP (cmH2O) 5.0 11/06/2020 5:44 AM CDT [facility] Respiratory Rate 12.0 11/07/19 5:44 AM CDT [facility] Sample Site L Radial 11/06/2020 5:44 AM CDT [facility] Sample Type Arterial 11/06/2020 5:44 AM CDT [facility] Supervisor Front ID [phone] 11/06/2020 5:44 AM CDT [facility] Blood, arterial ARTERIAL BLOOD SPECIMEN / Unknown 11/06/2020 5:23 AM CDT 11/06/2020 5:23 AM CDT Carlos Velarde MD LAB - BLOOD GASES OR DERABLES [facility] [address] [phone] * (ABNORMAL) COMPREHENSIVE METABOLIC PANEL (11/06/2020 4:20 AM CDT) Glucose 182(H) 70 - 105 mg/dL 11/06/2020 5:11 AM CDT [facility] Sodium 142 136 - 145 mmol/L 11/06/2020 5:11 AM CDT [facility] Potassium 3.9 3.5 - 5.1 mmol/L 11/06/2020 5:11 AM CDT [facility] Chloride 97(L) 98 - 107 mmol/L 11/06/2020 5:11 AM CDT [facility] CO2 40(H) 23 - 31 mmol/L 11/06/2020 5:11 AM CDT [facility] Calcium 8.5 8.4 - 10.4 mg/dL 11/06/2020 5:11 AM CDT [facility] Anion Gap 5(L) 8 - 18 mmol/L 11/06/2020 5:11 AM CDT [facility] Comment:Attention clinician: ??Reference Range change. BUN 21(H) 9.8 - 20.1 mg/dL 11/06/2020 5:11 AM CDT [facility] Creatinine 0.61 0.57 - 1.11 mg/dL 11/06/2020 5:11 AM CDT [facility] Alkaline Phosphatase 51 40 - 150 U/L 11/06/2020 5:11 AM CDT [facility] Comment:Attention clinician: ??Reference Range change. ALT 28 0 - 61 U/L 11/06/2020 5:11 AM CDT [facility] AST 9 5 - 34 U/L 11/06/2020 5:11 AM CDT [facility] Protein Total 5.2(L) 6.4 - 8.3 gm/dL 11/06/2020 5:11 AM CDT [facility] Albumin 2.9(L) 3.2 - 4.6 gm/dL 11/06/2020 5:11 AM CDT [facility] Bilirubin Total 0.2 0.2 - 1.2 mg/dL 11/06/2020 5:11 AM CDT [facility] Comment:Attention clinician: ??Reference Range change. eGFR by MDRD >60 mL/min/1.7 3m2 11/06/2020 5:11 AM CDT [facility] eGFR by MDRD >60 mL/min/1.7 3m2 11/06/2020 5:11 AM CDT [facility] Blood BLOOD SPECIMEN / Unknown Venipuncture / Unknown 11/06/2020 4:20 AM CDT 11/06/2020 4:37 AM CDT Carlos Velarde MD LAB - CHEMISTRY ELIZABETH ETIENNE [facility] Organization Address City/State/ZIP Co de Phone Number [facility] [address] [place] [address] * (ABNORMAL) CBC W AUTO DIFFERENTIAL (11/06/2020 4:20 AM CDT) WBC 12.9(H) 4.4 - 10.7 x10E9/L 11/06/2020 4:57 AM CDT [facility] WBC Corrected 11/06/2020 4:57 AM CDT [facility] RBC 3.02(L) 3.80 - 5.20 x10E12/L 11/06/2020 4:57 AM CDT [facility] Hemoglobin 8.7(L) 12.0 - 15.6 gm/dL 11/06/2020 4:57 AM CDT [facility] Hematocrit 27.8(L) 35.9 - 45.5 % 11/06/2020 4:57 AM CDT [facility] MCV 92.1 80.7 - 98.3 fl 11/06/2020 4:57 AM CDT [facility] MCH 28.8 26.7 - 34.0 pg 11/06/2020 4:57 AM CDT [facility] MCHC 31.3 30.8 - 35.9 gm/dL 11/06/2020 4:57 AM CDT [facility] Platelet Count 280 153 - 416 x10E9/L 11/06/2020 4:57 AM CDT [facility] RDW-CV 17.2(H) 12.1 - 14.9 % 11/06/2020 4:57 AM CDT [facility] MPV 9.6 9.4 - 12.9 fl 11/06/2020 4:57 AM CDT [facility] Neutrophils % 91.3(H) 44.0 - 73.0 % 11/06/2020 4:57 AM CDT [facility] Lymphocytes % 5.8(L) 20.0 - 43.0 % 11/06/2020 4:57 AM CDT [facility] Monocytes % 2.4(L) 5.0 - 13.0 % 11/06/2020 4:57 AM CDT [facility] Eosinophils % 0.0 0.0 - 6.0 % 11/06/2020 4:57 AM CDT [facility] Basophils % 0.0 0.0 - 2.0 % 11/06/2020 4:57 AM CDT [facility] Immature Granulocytes 0.5 0 - 1 % 11/06/2020 4:57 AM CDT [facility] Neutrophil Absolute 11.81(H) 2.01 - 7.14 x10E9/L 11/06/2020 4:57 AM CDT [facility] Lymphocytes Absolute 0.75(L) 1.07 - 3.94 x10E9/L 11/06/2020 4:57 AM CDT [facility] Monocytes Absolute 0.31 0.26 - 1.07 x10E9/L 11/06/2020 4:57 AM CDT [facility] Eosinophils Absolute 0.00 0 - 0.47 x10E9/L 11/06/2020 4:57 AM CDT [facility] Basophils Absolute 0.00 0 - 0.08 x10E9/L 11/06/2020 4:57 AM CDT [facility] Immature Granulocytes Absolute 0.07(H) 0.00 - 0.06 x10E9/L 11/06/2020 4:57 AM CDT [facility] nRBC Auto 0 /100 WBC 11/06/2020 4:57 AM CDT [facility] Blood BLOOD SPECIMEN / Unknown Venipuncture / Unknown 11/06/2020 4:20 AM CDT 11/06/2020 4:37 AM CDT Carlos Velarde MD LAB - HEMATOLOGY ORD ERABLES [facility] [address] [place] [address] * PHOSPHORUS BLOOD (11/06/2020 4:20 AM CDT) [facility] Signature Phosphorus 2.9 2.3 - 4.7 mg/dL 11/06/2020 5:11 AM CDT [facility] Blood BLOOD SPECIMEN / Unknown Venipuncture / Unknown 11/06/2020 4:20 AM CDT 11/06/2020 4:37 AM CDT Carlos Velarde MD LAB - CHEMISTRY ORDAugustin ETIENNE Performing Organization Address [facility] Co de Phone Number [facility] [address] [place] [phone] * MAGNESIUM BLOOD (11/06/2020 4:20 AM CDT) Magnesium 2.1 1.6 - 2.6 mg/dL 11/06/2020 5:11 AM CDT [facility] Blood BLOOD SPECIMEN / Unknown Venipuncture / Unknown 11/06/2020 4:20 AM CDT 11/06/2020 4:37 AM CDT Carlos Velarde MD LAB - CHEMISTRY ORDAugustin ETIENNE Performing Organization Address [facility] [[email or web address]] de Phone Number [facility] [address] [place] [phone] * (ABNORMAL) TRIGLYCERIDES BLOOD (11/06/2020 4:20 AM CDT) Triglycerides 214(H) <150 mg/dL 11/06/2020 5:11 AM CDT [facility] Blood BLOOD SPECIMEN / Unknown Venipuncture / Unknown 11/06/2020 4:20 AM CDT 11/06/2020 4:37 AM CDT Kenney Canas DO LAB - CHEMISTRY ORDERABLES Performing Organization Address [facility] [[email or web address]] de Phone Number [facility] [address] [place] [address] [phone] * XR ABDOMEN KUB (11/06/2020 1:02 AM CDT) Anatomical Region Laterality Modality Abdomen Radiographic Cesia [...] Canas DO DIAGNOSTIC IMAGI NG ORDERABLES * (ABNORMAL) GLUCOSE - POINT OF CARE (11/06/2020 12:32 AM CDT) Glucose WB/POC 169(H) 70 - 106 mg/dL 11/07/2020 12:11 AM CDT [facility] Specimen Type Arterial/C apillary 11/07/2020 12:11 AM CDT [facility] Blood BLOOD SPECIMEN / Unknown 11/06/2020 12:32 AM CDT 11/07/2020 12:11 AM CDT Carlos Velarde MD LAB - POINT OF CARE ORDERABLES Performing Organization Address City/State/[facility] Co de Phone Number [facility] [address] [place], [place] [phone] * (ABNORMAL) GLUCOSE - POINT OF CARE (11/05/2020 5:43 PM CDT) Glucose WB/POC 219(H) 70 - 106 mg/dL 11/06/2020 12:20 AM CDT [facility] Specimen Type Arterial/C apillary 11/06/2020 12:20 AM CDT [facility] Blood BLOOD SPECIMEN / Unknown 11/05/2020 5:43 PM CDT 11/06/2020 12:20 AM CDT Carlos Velarde MD LAB - POINT OF CARE ORDERABLES Performing Organization Address [facility] [[email or web address]] de Phone Number [facility] [address] [place] [phone] * (ABNORMAL) GLUCOSE - POINT OF CARE (11/05/2020 12:17 PM CDT) Glucose WB/POC 168(H) 70 - 106 mg/dL 11/06/2020 12:20 AM CDT [facility] Specimen Type Arterial/C apillary 11/06/2020 12:20 AM CDT [facility] Blood BLOOD SPECIMEN / Unknown 11/05/2020 12:17 PM CDT 11/06/2020 12:20 AM CDT Carlos Velarde MD LAB - POINT OF CARE ORDERABLES Performing Organization Address [facility] [[email or web address]] de Phone Number [facility] [address] [place] [phone] * CULTURE MRSA (11/05/2020 11:54 AM CDT) Culture Negative for methicillin-resist ant Staphylococcus aureus (MRSA) [place] 11/07/2020 6:40 AM CDT [facility] Microbiology SPECIMEN FROM NASAL FOSSAE / Unknown Collection / Unknown 11/05/2020 11:54 AM CDT 11/05/2020 12:20 PM CDT Carlos Velarde MD LAB - MICROBIOLOGY O RDERABLES Performing Organization Address City/[facility] Co de Phone Number [facility] [address] [phone] * XR ABDOMEN KUB (11/05/2020 9:07 AM CDT) Anatomical Region Laterality Modality Abdomen Radiographic Cesia ging 11/05/2020 9:18 AM CDT Narrative 11/05/2020 9:19 AM CDT EXAMINATION: ABDOMEN KUB HISTORY: Dobbhoff tube placement. COMPARISON: None. FINDINGS/IMPRESSION: 1. 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 2. There is no evidence of kinking of the Dobbhoff tube. 3. A right femoral central line is in place. The bowel gas pattern is nonobstructive. The imaged lung bases are clear. Extensive costochondral calcifications are noted. *Reading Radiologist: Moises Perdomo on 11/05/2020 at 9:19 AM Procedure Note Moises Perdomo MD - 11/05/2020 EXAMINATION: ABDOMEN KUB HISTORY: Dobbhoff tube placement. COMPARISON: None. FINDINGS/IMPRESSION: 1. 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 2. There is no evidence of kinking of the Dobbhoff tube. 3. A right femoral central line is in place. The bowel gas pattern is nonobstructive. The imaged lung bases are clear. Extensive costochondral calcifications are noted. *Reading Radiologist: Moises Perdomo on 11/05/2020 at 9:19 AM Carlos Velarde MD DIAGNOSTIC IMAGING O RDERABLES * SARS-COV-2 (COVID-19) IN HOUSE (11/05/2020 8:40 AM CDT) COVID-19 PCR Not detected Not detected 11/05/2020 2:04 PM CDT [facility] Microbiology SPECIMEN FROM NASOPHARYNGEAL STRUCTURE / Unknown Collection / Unknown 11/05/2020 8:40 AM CDT 11/05/2020 8:49 AM CDT Narrative [facility] - 11/05/2020 2:04 PM CDT This nucleic acid amplification assay performance was validated by [facility]. This test has been authorized [...] Velarde MD LAB - MICROBIOLOGY O RDERABLES [facility] [address] [place], [place] [address], [facility] [phone] * EKG 12-LEAD (11/05/2020 8:34 AM CDT) Ventricular Rate 46 BPM [facility] Atrial Rate 46 BPM [facility] P-R Interval 122 ms [facility] QRS Duration ms 64 ms [facility] Q-T Interval ms 406 ms [facility] QTC Calculation (Bezet) 355 ms [facility] Calculated P [place] 10 degrees [facility] Calculated R [place] -13 degrees [facility] Calculated T [place] -24 degrees [facility] Interpretation EKG MARKED SINUS BRADYCARDIA RSR' OR QR PATTERN IN V1 SUGGESTS RIGHT VENTRICULAR CONDUCTION DELAY VOLTAGE CRITERIA FOR LEFT VENTRICULAR HYPERTROPHY INFERIOR INFARCT , AGE UNDETERMINED ABNORMAL ECG NO PREVIOUS ECGS AVAILABLE Confirmed by Jarred Gomez ([id number]) on 11/08/2020 6:27:07 PM [facility] 11/05/2020 8:34 AM CDT 11/08/2020 6:27 PM CDT Carlos Velarde MD ECG ORDERABLES Performing Organization Address City/[facility]/ZIP Co de Phone Number [facility] * TROPONIN I (11/05/2020 8:01 AM CDT) Troponin I <0.010 <0.038 ng/mL 11/05/2020 9:23 AM CDT [facility] Blood BLOOD SPECIMEN / Unknown Venipuncture / Unknown 11/05/2020 8:01 AM CDT 11/05/2020 8:41 AM CDT Carlos Velarde MD LAB - CHEMISTRY ELIZABETH ETIENNE [facility] Organization Address City/State/[facility] Co de Phone Number [facility] [address] [place] [address] * HEMOGLOBIN A1C (11/05/2020 4:33 AM CDT) Pathologist [facility] Hemoglobin A1c 5.2 4.2 - 5.6 % 11/05/2020 5:38 AM CDT [facility] Estimated Average Glucose 103 mg/dL 11/05/2020 5:38 AM CDT [facility] Blood BLOOD SPECIMEN / Unknown Venipuncture / Unknown 11/05/2020 4:33 AM CDT 11/05/2020 5:14 AM CDT Narrative [facility] - 11/05/2020 5:38 AM CDT The following cutoff levels are recommended by [place] [employer]. ?? A1c ??> 6.5% : [...] (HbF) exceeds 5% in the specimen. Kenney Canas DO LAB - CHEMISTRY ORDERABLES Performing Organization Address [facility] [[email or web address]] de Phone Number [facility] [address] [place], [place] [phone] * MAGNESIUM BLOOD (11/05/2020 4:33 AM CDT) Pathologist [facility] Magnesium 1.6 1.6 - 2.6 mg/dL 11/05/2020 5:39 AM CDT [facility] Blood BLOOD SPECIMEN / Unknown Venipuncture / Unknown 11/05/2020 4:33 AM CDT 11/05/2020 5:14 AM CDT Kenney Canas DO LAB - CHEMISTRY ORDERABLES Performing Organization Address [facility] [[email or web address]] de Phone Number [facility] [address] [place] [phone] * (ABNORMAL) BASIC METABOLIC PANEL (CALCIUM TOTAL) (11/05/2020 4:33 AM CDT) Glucose 156(H) 70 - 105 mg/dL 11/05/2020 5:41 AM CDT [facility] Sodium 141 136 - 145 mmol/L 11/05/2020 5:41 AM CDT [facility] Potassium 3.9 3.5 - 5.1 mmol/L 11/05/2020 5:41 AM CDT [facility] Chloride 95(L) 98 - 107 mmol/L 11/05/2020 5:41 AM CDT [facility] CO2 41(HH) 23 - 31 mmol/L 11/05/2020 5:41 AM CDT [facility] Calcium 8.2(L) 8.4 - 10.4 mg/dL 11/05/2020 5:41 AM CDT [facility] Anion Gap 5(L) 8 - 18 mmol/L 11/05/2020 5:41 AM CDT [facility] Comment:Attention clinician: Reference Range change. BUN 19 9.8 - 20.1 mg/dL 11/05/2020 5:41 AM CDT [facility] Creatinine 0.59 0.57 - 1.11 mg/dL 11/05/2020 5:41 AM CDT [facility] eGFR by MDRD >60 mL/min/1.7 3m2 11/05/2020 5:41 AM CDT [facility] eGFR by MDRD >60 mL/min/1.7 3m2 11/05/2020 5:41 AM CDT [facility] Blood BLOOD SPECIMEN / Unknown Venipuncture / Unknown 11/05/2020 4:33 AM CDT 11/05/2020 5:14 AM CDT Kenney Canas DO LAB - CHEMISTRY ORDERABLES Performing Organization Address City/State/[facility] Co de Phone Number [facility] [address] [place] [address] * (ABNORMAL) CBC W AUTO DIFFERENTIAL (11/05/2020 4:33 AM CDT) WBC 26.9(H) 4.4 - 10.7 x10E9/L 11/05/2020 5:22 AM CDT [facility] WBC Corrected 11/05/2020 5:22 AM CDT [facility] RBC 3.28(L) 3.80 - 5.20 x10E12/L 11/05/2020 5:22 AM CDT [facility] Hemoglobin 9.4(L) 12.0 - 15.6 gm/dL 11/05/2020 5:22 AM CDT [facility] Hematocrit 30.6(L) 35.9 - 45.5 % 11/05/2020 5:22 AM CDT [facility] MCV 93.3 80.7 - 98.3 fl 11/05/2020 5:22 AM CDT [facility] MCH 28.7 26.7 - 34.0 pg 11/05/2020 5:22 AM CDT [facility] MCHC 30.7(L) 30.8 - 35.9 gm/dL 11/05/2020 5:22 AM CDT [facility] Platelet Count 326 153 - 416 x10E9/L 11/05/2020 5:22 AM CDT [facility] RDW-CV 16.6(H) 12.1 - 14.9 % 11/05/2020 5:22 AM CDT [facility] MPV 9.8 9.4 - 12.9 fl 11/05/2020 5:22 AM CDT [facility] Neutrophils % 95.6(H) 44.0 - 73.0 % 11/05/2020 5:22 AM CDT [facility] Lymphocytes % 3.1(L) 20.0 - 43.0 % 11/05/2020 5:22 AM CDT [facility] Monocytes % 0.5(L) 5.0 - 13.0 % 11/05/2020 5:22 AM CDT [facility] Eosinophils % 0.0 0.0 - 6.0 % 11/05/2020 5:22 AM CDT [facility] Basophils % 0.1 0.0 - 2.0 % 11/05/2020 5:22 AM CDT [facility] Immature Granulocytes 0.7 0 - 1 % 11/05/2020 5:22 AM CDT [facility] Neutrophil Absolute 25.69(H) 2.01 - 7.14 x10E9/L 11/05/2020 5:22 AM [facility] Lymphocytes Absolute 0.83(L) 1.07 - 3.94 x10E9/L 11/05/2020 5:22 AM CDT [facility] Monocytes Absolute 0.13(L) 0.26 - 1.07 x10E9/L 11/05/2020 5:22 AM CDT [facility] Eosinophils Absolute 0.00 0 - 0.47 x10E9/L 11/05/2020 5:22 AM CDT [facility] Basophils Absolute 0.02 0 - 0.08 x10E9/L 11/05/2020 5:22 AM CDT [facility] Immature Granulocytes Absolute 0.18(H) 0.00 - 0.06 x10E9/L 11/05/2020 5:22 AM CDT [facility] nRBC Auto 0 /100 WBC 11/05/2020 5:22 AM CDT [facility] Blood BLOOD SPECIMEN / Unknown Venipuncture / Unknown 11/05/2020 4:33 AM CDT 11/05/2020 5:14 AM CDT Kenney Canas DO LAB - HEMATOLOGY ORDERABLES Performing Organization Address [facility] Co de Phone Number [facility] [address] [place], [place] [phone] * (ABNORMAL) GLUCOSE - POINT OF CARE (11/05/2020 1:20 AM CDT) Glucose WB/POC 153(H) 70 - 106 mg/dL 11/07/2020 12:11 AM CDT [facility] Specimen Type Arterial/C apillary 11/07/2020 12:11 AM CDT [facility] Blood BLOOD SPECIMEN / Unknown 11/05/2020 1:20 AM CDT 11/07/2020 12:11 AM CDT Carlos Velarde MD LAB - POINT OF CARE ORDERABLES Performing Organization Address [facility] Co de Phone Number [facility] [address] [place] [address] * CULTURE SPUTUM+GRAM STAIN (11/04/2020 11:29 PM CDT) Culture No growth [place] 11/07/2020 7:46 AM CDT [facility] Gram Stain <10 per low power field Squamous epithelial cells 11/07/2020 7:46 AM CDT [facility] Gram Stain <10 per low power field Polymorphonuclear cells 11/07/2020 7:46 AM CDT [facility] Gram Stain No organisms seen 021 7:46 AM CDT [facility] Microbiology SPUTUM / Unknown Collection / Unknown 11/04/2020 11:29 PM CDT 11/05/2020 12:17 AM CDT Kenney Canas DO LAB - MICROBIOLO GY ORDERABLES Performing Organization Address City/[facility]/ZIP Co de Phone Number [facility] [address] [place] [address], [facility] [phone] * CULTURE BLOOD (11/04/2020 10:19 PM CDT) Culture No growth day 5 [place] 11/10/2020 1:42 AM CDT [facility] Blood PERIPHERAL BLOOD / Unknown Venipuncture / Unknown 11/04/2020 10:19 PM CDT 11/04/2020 10:43 PM CDT Kenney Canas DO LAB - MICROBIOLO GY ORDERABLES Performing Organization Address City/[facility]/ZIP Co de Phone Number [facility] [address] [place] [address], [facility] [phone] * CULTURE BLOOD (11/04/2020 10:12 PM CDT) Culture No growth day 5 [place] 11/10/2020 1:42 AM CDT [facility] Blood PERIPHERAL BLOOD / Unknown Venipuncture / Unknown 11/04/2020 10:12 PM CDT 11/04/2020 10:43 PM CDT Kenney Canas DO LAB - MICROBIOLO GY ORDERABLES Performing Organization Address City/[facility]/ZIP Co de Phone Number [facility] [address] [place] [address], [facility] [phone] * (ABNORMAL) URINE MICROSCOPIC ONLY (11/04/2020 9:54 PM CDT) RBC UA 3-5 None Seen, 0-2, 3-5 # /hpf 11/04/2020 10:15 PM CDT [facility] WBC UA 0-5 None Seen, 0-5 # /hpf 11/04/2020 10:15 PM CDT [facility] Hyaline Casts 3-5(A) None Seen, 0-2 # /lpf 11/04/2020 10:15 PM CDT [facility] Bacteria UA None Seen None Seen 11/04/2020 10:15 PM CDT [facility] Squamous Epithelial Cells 0-2 None Seen, 0-2, 3-5 /hpf 11/04/2020 10:15 PM CDT [facility] Mucus UA 1+ /LPF 11/04/2020 10:15 PM CDT [facility] Urine URINE SPECIMEN OBTAINED BY SINGLE CATHETERIZATION OF URINARY BLADDER / Unknown Collection / Unknown 11/04/2020 9:54 PM CDT 11/04/2020 10:02 PM CDT Narrative [facility] - 11/04/2020 10:15 PM CDT Kenney Canas DO LAB - URINALYSIS ORDERABLES [facility] [address] [place] [address] * (ABNORMAL) URINALYSIS REFLEX TO MICROSCOPIC NO CULTURE (11/04/2020 9:54 PM CDT) Color UA Yellow Straw, Yellow 11/04/2020 10:08 PM CDT [facility] Clarity UA Clear Clear 11/04/2020 10:08 PM CDT [facility] Glucose UA Negative Negative 11/04/2020 10:08 PM CDT [facility] Bilirubin UA Negative Negative 11/04/2020 10:08 PM CDT [facility] Ketone UA Negative Negative 11/04/2020 10:08 PM CDT [facility] Specific Astor UA 1.017 1.005 - 1.030 11/04/2020 10:08 PM CDT [facility] Blood UA 1+(A) Negative 11/04/2020 10:08 PM CDT [facility] pH UA 6.0 5.0 - 8.0 pH 11/04/2020 10:08 PM CDT [facility] Protein UA 1+(A) Negative 11/04/2020 10:08 PM CDT [facility] Urobilinogen UA Negative Negative mg/dL 11/04/2020 10:08 PM CDT [facility] Nitrite UA Negative Negative 11/04/2020 10:08 PM CDT [facility] Leukocyte UA Negative Negative 11/04/2020 10:08 PM CDT [facility] Urine Microscopy Urine microscopy to follow 11/04/2020 10:08 PM CDT [facility] Urine URINE SPECIMEN OBTAINED BY SINGLE CATHETERIZATION OF URINARY BLADDER / Unknown Collection / Unknown 11/04/2020 9:54 PM CDT 11/04/2020 10:02 PM CDT Narrative [facility] - 11/04/2020 10:08 PM CDT Kenney Canas DO LAB - URINALYSIS ORDERABLES Performing Organization Address [facility] Co de Phone Number [facility] [address] [place] [address] * STREP PNEUMONIAE ANTIGEN URINE (11/04/2020 9:54 PM CDT) Streptococcus pneumoniae Antigen Urine Negative Negative 11/05/2020 7:32 AM CDT [facility] Urine URINE / Unknown Collection / Unknown 11/04/2020 9:54 PM CDT 11/04/2020 10:02 PM CDT [facility] - 11/05/2020 7:32 AM CDT Patients [...] - MICROBIOLO GY ORDERABLES Performing Organization Address City/[facility] Co de Phone Number [facility] [address] [facility] [place], [place] [address] [[email or web address]] [phone] * LEGIONELLA ANTIGEN URINE (11/04/2020 9:54 PM CDT) Legionella Antigen Urine Negative Negative 11/05/2020 7:33 AM CDT [facility] Urine URINE / Unknown Collection / Unknown 11/04/2020 9:54 PM CDT 11/04/2020 10:02 PM CDT [facility] - 11/05/2020 7:33 AM CDT This assay detects Legionella pneumophila serogroup one (1) antigen. A negative test result does not rule out the possibility of Legionella infection due to other serogroups or species of Legionella. A positive result may indicate a recent or remote infection with serogroup 1. Kenney Canas DO LAB - MICROBIOLO GY ORDERABLES [facility] [address] [place] [address], [facility] [phone] * (ABNORMAL) PROCALCITONIN LEVEL (11/04/2020 8:54 PM CDT) [facility] Procalcitonin 0.14(H) <0.10 ng/mL 11/04/2020 9:46 PM CDT [facility] Blood BLOOD SPECIMEN / Unknown Venipuncture / Unknown 11/04/2020 8:54 PM CDT 11/04/2020 9:05 PM CDT Narrative [facility] - 11/04/2020 9:46 PM CDT The [...] Change in Procalcitonin Calculator is available at [email or web address] ?? If clinical picture has not improved and PCT remains high, reevaluate and consider treatment failure or other causes. Kenney Canas DO LAB - CHEMISTRY ORDERABLES Performing Organization Address [facility] [[email or web address]] de Phone Number [facility] [address] [place] [phone] * (ABNORMAL) MAGNESIUM BLOOD (11/04/2020 8:54 PM CDT) Magnesium 1.5(L) 1.6 - 2.6 mg/dL 11/04/2020 9:25 PM CDT [facility] Blood BLOOD SPECIMEN / Unknown Venipuncture / Unknown 11/04/2020 8:54 PM CDT 11/04/2020 9:05 PM CDT Kenney Canas DO LAB - CHEMISTRY ORDERABLES Performing Organization Address [facility] [[email or web address]] de Phone Number [facility] [address] [place], [place] [phone] * LACTIC ACID BLOOD (11/04/2020 8:54 PM CDT) Lactic Acid 1.1 0.5 - 2.2 mmol/L 11/04/2020 9:21 PM CDT [facility] Blood BLOOD SPECIMEN / Unknown Venipuncture / Unknown 11/04/2020 8:54 PM CDT 11/04/2020 9:05 PM CDT Kenney Canas DO LAB - CHEMISTRY ORDERABLES Performing Organization Address [facility] [email or web address]] de Phone Number [facility] [address] [place], [place] [phone] * (ABNORMAL) COMPREHENSIVE METABOLIC PANEL (11/04/2020 8:54 PM CDT) Glucose 159(H) 70 - 105 mg/dL 11/04/2020 9:29 PM CDT [facility] Sodium 141 136 - 145 mmol/L 11/04/2020 9:29 PM CDT [facility] Potassium 4.0 3.5 - 5.1 mmol/L 11/04/2020 9:29 PM CDT [facility] Chloride 96(L) 98 - 107 mmol/L 11/04/2020 9:29 PM CDT [facility] CO2 41(HH) 23 - 31 mmol/L 11/04/2020 9:29 PM CDT [facility] Calcium 8.3(L) 8.4 - 10.4 mg/dL 11/04/2020 9:29 PM CDT [facility] Anion Gap 4(L) 8 - 18 mmol/L 11/04/2020 9:29 PM CDT [facility] Comment:Attention clinician: ??Reference Range change. BUN 20 9.8 - 20.1 mg/dL 11/04/2020 9:29 PM CDT [facility] Creatinine 0.65 0.57 - 1.11 mg/dL 11/04/2020 9:29 PM CDT [facility] Alkaline Phosphatase 57 40 - 150 U/L 11/04/2020 9:29 PM CDT [facility] Comment:Attention clinician: ??Reference Range change. ALT 55 0 - 61 U/L 11/04/2020 9:29 PM CDT [facility] AST 43(H) 5 - 34 U/L 11/04/2020 9:29 PM CDT [facility] Protein Total 5.0(L) 6.4 - 8.3 gm/dL 11/04/2020 9:29 PM CDT [facility] Albumin 2.8(L) 3.2 - 4.6 gm/dL 11/04/2020 9:29 PM CDT [facility] Bilirubin Total 0.5 0.2 - 1.2 mg/dL 11/04/2020 9:29 PM CDT [facility] Comment:Attention clinician: ??Reference Range change. eGFR by MDRD >60 mL/min/1.7 3m2 11/04/2020 9:29 PM CDT [facility] eGFR by MDRD >60 mL/min/1.7 3m2 11/04/2020 9:29 PM CDT [facility] Blood BLOOD SPECIMEN / Unknown Venipuncture / Unknown 11/04/2020 8:54 PM CDT 11/04/2020 9:05 PM CDT Kenney Canas DO LAB - CHEMISTRY ORDERABLES Performing Organization Address [facility] Co de Phone Number [facility] [address] [place] [phone] * (ABNORMAL) B-TYPE NATRIURETIC PEPTIDE (11/04/2020 8:54 PM CDT) BNP 133(H) <=100 pg/mL 11/04/2020 9:32 PM CDT [facility] Blood BLOOD SPECIMEN / Unknown Venipuncture / Unknown 11/04/2020 8:54 PM CDT 11/04/2020 9:05 PM CDT Narrative [facility] - 11/04/2020 9:32 PM CDT A [...] LAB - CHEMISTRY ORDERABLES Performing Organization Address [facility] [[email or web address]] de Phone Number [facility] [address] [place] [phone] * (ABNORMAL) CBC W AUTO DIFFERENTIAL (11/04/2020 8:54 PM CDT) WBC 22.3(H) 4.4 - 10.7 x10E9/L 11/04/2020 9:09 PM CDT [facility] WBC Corrected 11/04/2020 9:09 PM CDT [facility] RBC 3.15(L) 3.80 - 5.20 x10E12/L 11/04/2020 9:09 PM CDT [facility] Hemoglobin 9.1(L) 12.0 - 15.6 gm/dL 11/04/2020 9:09 PM CDT [facility] Hematocrit 29.3(L) 35.9 - 45.5 % 11/04/2020 9:09 PM CDT [facility] MCV 93.0 80.7 - 98.3 fl 11/04/2020 9:09 PM CDT [facility] MCH 28.9 26.7 - 34.0 pg 11/04/2020 9:09 PM CDT [facility] MCHC 31.1 30.8 - 35.9 gm/dL 11/04/2020 [facility] Platelet Count 232 153 - 416 x10E9/L 11/04/2020 9:09 PM [facility] RDW-CV 16.9(H) 12.1 - 14.9 % 11/04/2020 9:09 PM [facility] MPV 9.2(L) 9.4 - 12.9 fl 11/04/2020 9:09 PM [facility] Neutrophils % 94.7(H) 44.0 - 73.0 % 11/04/2020 9:09 PM [facility] Lymphocytes % 2.5(L) 20.0 - 43.0 % 11/04/2020 9:09 PM [facility] Monocytes % 2.1(L) 5.0 - 13.0 % 11/04/2020 9:09 PM [facility] Eosinophils % 0.0 0.0 - 6.0 % 11/04/2020 9:09 PM [facility] Basophils % 0.1 0.0 - 2.0 % 11/04/2020 9:09 PM T [facility] Immature Granulocytes 0.6 0 - 1 % 11/04/2020 9:09 PM CDT [facility] Neutrophil Absolute 21.06(H) 2.01 - 7.14 x10E9/L 11/04/2020 9:09 PM [facility] Lymphocytes Absolute 0.56(L) 1.07 - 3.94 x10E9/L 11/04/2020 9:09 PM [facility] Monocytes Absolute 0.47 0.26 - 1.07 x10E9/L 11/04/2020 9:09 PM CDT [facility] Eosinophils Absolute 0.00 0 - 0.47 x10E9/L 11/04/2020 9:09 PM CDT [facility] Basophils Absolute 0.03 0 - 0.08 x10E9/L 11/04/2020 9:09 PM CDT [facility] Immature Granulocytes Absolute 0.13(H) 0.00 - 0.06 x10E9/L 11/04/2020 9:09 PM CDT [facility] nRBC Auto 0 /100 WBC 11/04/2020 9:09 PM CDT [facility] Blood BLOOD SPECIMEN / Unknown Venipuncture / Unknown 11/04/2020 8:54 PM CDT 11/04/2020 9:05 PM CDT Kenney Canas DO LAB - HEMATOLOGY ORDERABLES Performing Organization Address City/State/[facility] Co de Phone Number [facility] [address] [place], [place] [phone] * (ABNORMAL) BLOOD GASES ARTERIAL (11/04/2020 8:45 PM CDT) pH Arterial 7.52(H) 7.35 - 7.45 pH 11/04/2020 9:26 PM CDT [facility] Comment:H pCO2 Arterial 55(H) 35 - 45 mm hg 11/04/2020 9:26 PM CDT [facility] Comment:H pO2 Arterial 64(L) 80 - 100 mm hg 11/04/2020 9:26 PM CDT [facility] Comment:L HCO3 Arterial 44(H) 22 - 26 mmol/L 11/04/2020 9:26 PM CDT [facility] Comment:H BE Arterial 19.0(H) -2.0 - 2.0 mmol/L 11/04/2020 9:26 PM CDT [facility] Comment:H O2 Saturation Arterial 94 90 - 100 % 11/04/2020 9:26 PM CDT [facility] Hemoglobin Arterial 10.5(L) 12.0 - 15.6 gm/dL 11/04/2020 9:26 PM CDT [facility] Carboxyhemoglobin Arterial 0.3 0.0 - 2.5 % 11/04/2020 9:26 PM CDT [facility] Methemoglobin Arterial 0.3 0.0 - 2.0 % 11/04/2020 9:26 PM CDT [facility] Oxyhemoglobin Arterial 95 % 11/04/2020 9:26 PM CDT [facility] Mode CMV 11/04/2020 9:26 PM CDT [facility] Samm's Test N/A 11/04/2020 9:26 PM CDT [facility] FI O2 35 % 11/04/2020 9:26 PM CDT [facility] Tidal Volume 400 mL 11/04/2020 9:26 PM CDT [facility] PEEP (cmH2O) 5.0 11/04/2020 9:26 PM CDT [facility] Respiratory Rate 16.0 11/05/19 9:26 PM CDT [facility] Sample Site L Radial 11/04/2020 9:26 PM CDT [facility] Sample Type Arterial 11/04/2020 9:26 PM CDT [facility] Supervisor Front ID [phone] 11/04/2020 9:26 PM CDT [facility] Blood, arterial ARTERIAL BLOOD SPECIMEN / Unknown 11/04/2020 8:45 PM CDT 11/04/2020 8:45 PM CDT Kenney Canas DO LAB - BLOOD GASE S ORDERABLES Performing Organization Address City/State/[facility] [[email or web address]] de Phone Number [facility] [address] [place] [address] * XR CHEST 1VW PORTABLE (11/04/2020 8:00 [...] Kenney Canas DO DIAGNOSTIC IMAGI NG ORDERABLES documented in this encounter Visit Diagnoses Diagnosis Chronic respiratory failure, unspecified whether with hypoxia or hypercapnia (HCC) Chronic respiratory failure (HCC) Chronic respiratory failure documented in this encounter Administered Medications Inactive Administered Medications - up to 3 most recent administrations Medication Order MAR Action Action Date Dose Rate Site 0.9% NaCl flush bag at 20 mL/hr, 500 mL, CONTINUOUS PRN, Starting on 11/05/20 at 0144, Until 11/16/20 at 1242, IVPB FLUSH BAG, Use for: IVPB flush Current Rate 11/09/2020 7:00 PM CDT 20 mL/ hr Restarted 11/09/2020 5:55 PM CDT 20 mL/hr Restarted 11/09/2020 9:29 AM CDT 20 mL/hr 0.9% NaCl infusion ADS Med 1 dose, Starting on Sat11/04/20 at 2349, Until Sat11/04/20 at 2356, Created by cabinet override 0.9% NaCl injection 1-10 mL 1-10 mL, Intracatheter, PRN, Other, peripheral line flush, Starting on Sat11/04/20 at 1914, Until Sat11/16/20 at 1242, Flush peripheral IV catheter with 1-10 mL of normal saline before and after medications and prn to clear blood from the line or to verify patency. 0.9% NaCl injection 3 mL 3 mL, Intracatheter, EVERY 8 HOURS, First dose on Sat11/04/20 at 2200, Until Discontinued, Flush peripheral IV catheter with 3 mL of normal saline every 8 hours. $ Given 11/16/2020 5:26 AM CDT 3 mL $ Given 11/15/2020 10:00 PM CDT 3 mL $ Given 11/15/2020 12:23 PM CDT 3 mL 0.9% NaCl injection 3 mL 3 mL, Intracatheter, EVERY 8 HOURS, First dose on Sat11/04/20 at 2200, Until Discontinued, Flush peripheral IV catheter with 3 mL of normal saline every 8 hours. $ Given 11/10/2020 6:24 AM CDT 3 mL $ Given 11/09/2020 8:27 PM CDT 3 mL $ Given 11/09/2020 12:07 PM CDT 3 mL acetaminophen (Tylenol) suppository 650 mg 650 mg, Rectal, EVERY 4 HOURS PRN, for temperature greater than 101F, Starting on Sat11/11/20 at 1157, Until Sat11/16/20 at 1242, Give rectally if unable to take acetaminophen orally. acetaminophen (Tylenol) tablet 650 mg 650 mg, Enteral Tube, EVERY 4 HOURS PRN, for temperature greater than 101F, Starting on Sat11/07/20 at 0710, Until Sat11/11/20 at 1158 $ Given 11/09/2020 8:29 PM CDT 650 mg NG Tube acetaminophen (Tylenol) tablet 650 mg 650 mg, Oral, EVERY 4 HOURS PRN, for temperature greater than 101F, Starting on Sat11/11/20 at 1157, Until Sat11/16/20 at 1242 albuterol-ipratropium (Duo-Neb) nebulizer solution 3 mL 3 mL, Inhalation, EVERY 6 HOURS, First dose on Sat11/04/20 at 2000, Until Discontinued $ Given 11/16/2020 8:47 AM CDT 3 mL $ Given 11/15/2020 9:02 PM CDT 3 mL $ Given 11/15/2020 2:42 AM CDT 3 mL amitriptyline (Elavil) tablet 25 mg 25 mg, Oral, DAILY, First dose on Sat11/08/20 at 1115, Until Discontinued $ Given 11/16/2020 8:22 AM CDT 25 mg $ Given 11/15/2020 9:41 AM CDT 25 mg $ Given 11/14/2020 9:39 AM CDT 25 mg artificial tears ophthalmic solution 1 drop 1 drop, Each Eye, EVERY 4 HOURS PRN, Dry Eyes, Starting on Sat11/04/20 at 1918, Until Sat11/16/20 at 1242 budesonide-formoterol (Symbicort) 160-4.5 MCG/ACT inhaler 2 puff 2 puff, Inhalation, 2 TIMES DAILY, First dose on Sat11/04/20 at 2200, Until Discontinued, Rinse mouth after usage . WASTE DISPOSAL INSTRUCTION: Send to Pharmacy for Disposal. . $ Given 11/16/2020 8:47 AM CDT 2 puffs $ Given 11/15/2020 9:04 PM CDT 2 puffs $ Given 11/14/2020 8:57 PM CDT 2 puffs busPIRone (Buspar) tablet 5 mg 5 mg, Oral, 2 TIMES DAILY, First dose on Sat11/08/20 at 1115, Until Discontinued $ Given 11/16/2020 8:22 AM CDT 5 mg $ Given 11/15/2020 8:15 PM CDT 5 mg $ Given 11/15/2020 9:41 AM CDT 5 mg cefepime (Maxipime) 2,000 mg in 0.9% NaCl IV 50 mL IVPB 2,000 mg (2 g), at 100 mL/hr, Intravenous, EVERY 8 HOURS, First dose (after last reorder) on Sat11/05/20 at 0000, Until Discontinued, Pharmacy to dose, Indication for anti-infective therapy: Suspected infection, Site of anti-infective therapy: Lower Respiratory $ New Bag/Syringe 11/07/2020 12:04 AM CDT 2,000 mg 100 mL/hr $ New Bag/Syringe 11/06/2020 4:27 PM CDT 2,000 mg 100 mL /hr $ New Bag/Syringe 11/06/2020 7:28 AM CDT 2,000 mg 100 mL /hr cefepime (Maxipime) 2,000 mg in 0.9% NaCl IV 50 mL IVPB 2,000 mg (2 g), at 100 mL/hr, Intravenous, EVERY 8 HOURS, 8 doses, First dose (after last modification) on Sat11/07/20 at 0900, Last dose on Sat11/09/20 at 1700, Pharmacy to dose, Indication for anti-infective therapy: Suspected infection, Site of anti-infective therapy: Lower Respiratory Current Rate 11/09/2020 5:30 PM CDT 100 mL/hr $ New Bag/Syringe 11/09/2020 5:25 PM CDT 2,000 mg 100 mL /hr $ New Bag/Syringe 11/09/2020 8:59 AM CDT 2,000 mg 100 mL /hr chlorhexidine (Peridex) 0.12 % oral solution 15 mL 15 mL, Mouth/Throat, 2 TIMES DAILY, First dose on Sat11/04/20 at 2100, Until Discontinued, Swab oral mucosa for 30 seconds. Do not brush teeth immediately after use. . WASTE DISPOSAL INSTRUCTIONS: Black Bin Disposal required. $ Given 11/15/2020 8:15 PM CDT 15 mL $ Given 11/13/2020 11:15 PM CDT 15 mL $ Given 11/12/2020 8:05 PM CDT 15 mL clonazePAM (KlonoPIN) tablet 1 mg 1 mg, Oral, AT BEDTIME, First dose on Sat11/08/20 at 2100, Until Discontinued $ Given 11/15/2020 8:14 PM CDT 1 mg $ Given 11/14/2020 9:29 PM CDT 1 mg $ Given 11/13/2020 8:25 PM CDT 1 mg dexmedetomidine (Precedex) 400 mcg in D5W 100 mL infusion premix 0-1.5 mcg/kg/hr ? 67 kg (0-25.125 mL/hr, rounded to 0-25.13 mL/hr), Intravenous, CONTINUOUS, Starting on Sat11/07/20 at 0900, Until Sat11/08/20 at 1640, Titration Parameters: Standard Parameters, Indication: Sedation, Initiate infusion at: 0.2 mcg/kg/hr, Titrate infusion by: 0.1 mcg/kg/hr, Titrate every: 30 minutes, To maintain a: RASS score of 0 = Alert and calm, Notify physician if: Unachievable RASS goal despite max dose Titration/Asses sment 11/08/2020 3:41 PM CDT 1 mcg/kg/hr 16.75 mL/hr $ New Bag/Syringe 11/08/2020 10:46 AM CDT 1.5 mcg/kg/hr 25 .13 mL/hr Titration/Assessment 11/08/2020 10:32 AM CDT 1.5 mcg/kg/hr 25.13 mL/hr dextrose IV 12.5-25 g 12.5-25 g (25-50 mL), Intravenous, PRN, Bedside Glucose less than 70 mg/dL -If NOT able to eat and/or NPO and with IV Access, Starting on Sat11/04/20 at 1928, Until Sat11/16/20 at 1242, If NOT able to eat and/or NPO and with IV Access: For Bedside Glucose 54-69 mg/dL give 25 mls D50W IVP STAT For Bedside glucose 54 mg/dL or LESS verify with a second Bedside Glucose (from a different site) and give 50 mls D50W IVP STAT Re-check and Re-treat blood glucose EVERY 10-25 minutes until blood glucose GREATER than or equal to 80 mg/dl. NOTIFY PROVIDER OF HYPOGLYCEMIC EVENT. famotidine (Pepcid) injection 20 mg 20 mg, Intravenous, 2 TIMES DAILY, First dose on Sat11/04/20 at 2100, Until Discontinued, Dilute with 0.9% NaCl or D5W solution to a volume of 5 to 10 ml and administer over at least 2 minutes. $ Given 11/11/2020 9:34 AM CDT 20 mg $ Given 11/10/2020 11:44 PM CDT 20 mg $ Given 11/10/2020 8:35 AM CDT 20 mg fentaNYL (Sublimaze) bolus from infusion bag 50 mcg 50 mcg, Intravenous, BOLUS FROM BAG PRN, to reach CPOT/RASS goal as indicated by infusion order, Starting on Sat11/04/20 at 1920, Until Sat11/09/20 at 0959, Bolus from bag every 5 minutes to reach CPOT or RASS goal. ??Can give bolus before anticipated painful stimuli. Contact physician if unable to achieve CPOT or RASS goal after administering 4 boluses. Titrate/administer as needed for CPOT greater than 2 or RASS above goal. If a sedative is ordered, titrate/administer opioid first to achieve CPOT goal, followed by titration/administration of sedative to achieve RASS goal. Bolus From Bag 11/05/2020 7:25 PM CDT 50 mcg fentaNYL 2500 mcg/50mL (Sublimaze) infusion 0-50 mcg/hr (0-1 mL/hr), Intravenous, CONTINUOUS, Starting on Sat11/04/20 at 2000, Until Sat11/09/20 at 0845, Above CPOT or RASS goal (pain/agitated): bolus 50 mcg every 5 minutes until goal CPOT or RASS then increase rate by ordered dose.?Can give bolus before anticipated painful stimuli. Contact physician if unable to achieve CPOT or RASS goal after administering 4 boluses. At CPOT or RASS goal and no change in 4 hours: Decrease rate by 50 mcg/hr. Below CPOT or RASS goal (unarousable): Hold infusion until at goal then restart at 50% previous rate. If significant hemodynamic changes, hold or decrease rate and notify physician. Titrate/administer as needed for CPOT greater than 2 or RASS above goal. If a sedative is ordered, titrate/administer opioid first to achieve CPOT goal, followed by titration/administration of sedative to achieve RASS goal., Titration Parameters: Standard Parameters - Analgesia, Indication: Analgesia, Initiate infusion at: 25 mcg/hr, Titrate infusion by: 25 mcg/hr, Titrate every: 5 minutes, To maintain a: CPOT score less than 3, Notify physician if: Unachievable CPOT goal despite max dose, Contact physician for: hemodynamic instability, inability to achieve CPOT/RASS goals despite maximum dosages, unable to reach CPOT/RASS goal after administering 4 boluses. Current Rate 11/09/2020 5:00 AM CDT 25 mcg/hr 0.5 mL/hr Current Rate 11/08/2020 11:30 PM CDT 25 mcg/hr 0.5 mL/hr Current Rate 11/08/2020 8:00 PM CDT 25 mcg/hr 0.5 mL/hr furosemide (Lasix) injection 40 mg 40 mg, Intravenous, ONCE, 1 dose, On Sat11/07/20 at 0845 $ Given 11/07/2020 8:56 AM CDT 40 mg furosemide (Lasix) injection 40 mg 40 mg, Intravenous, ONCE, 1 dose, On Sat11/08/20 at 0845 $ Given 11/08/2020 9:26 AM CDT 40 mg GI Cocktail 40 mL, Oral, ONCE, 1 dose, On 11/12/20 at 2230 $ Given 11/12/2020 10:37 PM CDT 40 mL glucagon (Glucagen) injection 1 mg 1 mg, Intramuscular, PRN, Bedside Glucose less than 70 mg/dL - If NOT able to eat and/or NPO and withOUT IV Access, Starting on Sat11/04/20 at 1928, Until Sat11/16/20 at 1242, If NOT able to eat and/or NPO and NO IV Access: For Bedside glucose 54-69 mg/dL Give 1 mg IM or SQ For Bedside Glucose LESS than 54 mg/dl verify with a second bedside glucose (from a different site) and Give 1 mg IM or SQ Re-check and Re-treat blood glucose EVERY 10-25 minutes until blood glucose GREATER than or equal to 80 mg/dl. NOTIFY PROVIDER OF HYPOGLYCEMIC EVENT. Reconstitute vial with 1 mL of sterile water for injection for a final concentration of 1 mg/mL; shake vial gently; use immediately and discard unused portion glucose (Diabetic Use) (Dex4 Glucose) oral liquid Oral, PRN, Other, Bedside Glucose less than 70 mg/dL -If able to eat and does not have swallowing difficulties, Starting on Sat11/04/20 at 1928, Until Sat11/16/20 at 1242, If able to eat and can swallow thin liquids: For Bedside Glucose 54 - 69 mg/dL Give 15 grams of oral carbohydrates - 1 glucose liquid (see MAR) If patient refuses glucose liquid, then offer: - 4 ounces of fruit juice OR - 4 ounces non-diet soda OR - 8 ounces of fat-free milk For Bedside Glucose LESS than 54 mg/dL verify with a second Bedside Glucose (from a different site) - If pt is symptomatic, do not delay treatment If the patient is exhibiting symptoms which are not consistent with the results obtained, confirm the glucose with a STAT laboratory test. Give 30 grams of oral carbohydrates - 2 glucose liquid (see MAR) If patient refuses glucose liquid, then offer: - 8 ounces of fruit juice OR - 8 ounces non-diet soda OR - 16 ounces of fat-free milk Re-check and Re-treat blood glucose EVERY 10-25 minutes until blood glucose GREATER than or equal to 80 mg/dl. NOTIFY PROVIDER OF HYPOGLYCEMIC EVENT. glucose (Diabetic Use) oral gel Oral, PRN, Other, Bedside Glucose less than 70 mg/dL -If able to eat and does not have swallowing difficulties, Starting on Sat11/04/20 at 1928, Until Sat11/16/20 at 1242, If able to eat and is better able to swallow gel: For Bedside Glucose 54 - 69 mg/dL Give 15 grams of oral carbohydrates - 1 glucose gel (see MAR) If patient refuses glucose gel, then offer: - 4 ounces of fruit juice OR - 4 ounces non-diet soda OR - 8 ounces of fat-free milk For Bedside Glucose LESS than 54 mg/dL verify with a second Bedside Glucose (from a different site) - If pt is symptomatic, do not delay treatment If the patient is exhibiting symptoms which are not consistent with the results obtained, confirm the glucose with a STAT laboratory test. Give 30 grams of oral carbohydrates - 2 glucose gels (see MAR) If patient refuses glucose gel, then offer: - 8 ounces of fruit juice OR - 8 ounces non-diet soda OR - 16 ounces of fat-free milk Re-check and Re-treat blood glucose EVERY 10-25 minutes until blood glucose GREATER than or equal to 80 mg/dl. NOTIFY PROVIDER OF HYPOGLYCEMIC EVENT. guaiFENesin (Robitussin) solution 10 mL 10 mL, Oral, EVERY 8 HOURS, First dose on Sat11/08/20 at 1545, Until Discontinued $ Given 11/15/2020 1:42 PM CDT 10 mL $ Given 11/13/2020 9:42 PM CDT 10 mL $ Given 11/13/2020 6:01 AM CDT 10 mL heparin injection 5,000 Units 5,000 Units, Subcutaneous, 2 TIMES DAILY, First dose on Sat11/04/20 at 2100, Until Discontinued $ Given 11/16/2020 8:22 AM CDT 5,000 Units Abdominal Tissue $ Given 11/15/2020 8:15 PM CDT 5,000 Units A bd Right Lower Quadrant $ Given 11/15/2020 9:41 AM CDT 5,000 Units A bdominal Tissue hydrALAZINE (Apresoline) injection 10 mg 10 mg, Intravenous, EVERY 6 HOURS PRN, SBP greater than 170 mmHg, Starting on Sat11/09/20 at 0924, Until Sat11/16/20 at 1242 $ Given 11/09/2020 12:06 PM CDT 10 mg hydroCHLOROthiazide (Hydrodiuril) tablet 12.5 mg 12.5 mg, Oral, DAILY, First dose on Sat11/10/20 at 1545, Until Discontinued $ Given 11/16/2020 8:22 AM CDT 12.5 mg $ Given 11/15/2020 9:41 AM CDT 12.5 mg $ Given 11/14/2020 9:39 AM CDT 12.5 mg insulin aspart (NovoLOG) pen 0-6 Units 0-6 Units, Subcutaneous, EVERY 6 HOURS, First dose on Sat11/04/20 at 2000, Until Discontinued, Low Dose: Correction Insulin BG (mg/dL) Corrective Action LESS than 70: follow Hypoglycemic guidelines, 70-180: NO Correction insulin, 181-220: GIVE 2 units of insulin, 221-260: GIVE 3 units of insulin, 261-300: GIVE 4 units of insulin, 301-350: GIVE 5 units of insulin, Greater than 350: GIVE 6 units of insulin and notify physician., If the patient is NPO: DO NOT HOLD correction insulin If patient is eating meals and has orders for Mealtime insulin, combine and give at the same time. $ Given 11/13/2020 6:41 PM CDT 5 Units Right Arm $ Given 11/12/2020 6:09 PM CDT 3 Units Le ft Arm $ Given 11/11/2020 5:57 PM CDT 2 Units Le ft Arm insulin aspart (NovoLOG) pen 0-6 Units 0-6 Units, Subcutaneous, 4 TIMES DAILY - BEFORE MEALS AND AT BEDTIME, First dose (after last modification) on Sat11/14/20 at 2100, Until Discontinued, Low Dose: Correction Insulin BG (mg/dL) Corrective Action LESS than 70: follow Hypoglycemic guidelines, 70-180: NO Correction insulin, 181-220: GIVE 2 units of insulin, 221-260: GIVE 3 units of insulin, 261-300: GIVE 4 units of insulin, 301-350: GIVE 5 units of insulin, Greater than 350: GIVE 6 units of insulin and notify physician., If the patient is NPO: DO NOT HOLD correction insulin If patient is eating meals and has orders for Mealtime insulin, combine and give at the same time. $ Given 11/15/2020 8:14 PM CDT 2 Units Left Arm lactated ringers infusion at 75 mL/hr, Intravenous, CONTINUOUS, Starting on Sat11/04/20 at 2000, Until 11/05/20 at 0814 Current Rate 11/04/2020 11:01 PM CDT 75 mL/hr $ New Bag/Syringe 11/04/2020 8:57 PM CDT 75 mL/ hr lactated ringers IV bolus 1,000 mL, at 1,935.48 mL/hr, Administer over 31 Minutes, ONCE, 1 dose, On Sat11/04/20 at 2000 $ New Bag/Syringe 11/04/2020 7:37 PM CDT 1,000 mL 1935.48 mL/hr lactulose (Chronulac) solution 20 g 20 g, Oral, 3 TIMES DAILY, First dose on Sat11/08/20 at 0900, Until Discontinued $ Given 11/09/2020 8:28 PM CDT 20 g $ Given 11/08/2020 1:28 PM CDT 20 g $ Given 11/08/2020 9:27 AM CDT 20 g lisinopril (Prinivil; Zestril) tablet 10 mg 10 mg, Enteral Tube, DAILY, First dose on Rossy 11/10/20 at 0900, Until Discontinued $ Given 11/11/2020 9:35 AM CDT 10 mg NG Tu be $ Given 11/10/2020 8:34 AM CDT 10 mg NG Tube lisinopril (Prinivil; Zestril) tablet 10 mg 10 mg, Oral, DAILY, First dose (after last modification) on 11/12/20 at 0900, Until Discontinued $ Given 11/16/2020 8:22 AM CDT 10 mg $ Given 11/15/2020 9:41 AM CDT 10 mg $ Given 11/14/2020 9:39 AM CDT 10 mg LORazepam (Ativan) injection 0.5 mg 0.5 mg, Intravenous, EVERY 6 HOURS PRN, Anxiety, Agitation, Starting on Sat11/11/20 at 1748, Until Sat11/16/20 at 1242 magnesium sulfate 2 g in 50 mL bolus 2 g, at 25 mL/hr, Administer over 120 Minutes, Intravenous, ONCE, 1 dose, On Sat11/05/20 at 0645, Infuse at 1 gm/hr $ New Bag/Syringe 11/05/2020 6:48 AM CDT 2 g 25 mL/hr methylPREDNISolone sod succ (SOLU-Medrol) injection 40 mg 40 mg, Intravenous, EVERY 12 HOURS, First dose on Sat11/04/20 at 2100, Until Discontinued $ Given 11/04/2020 11:05 PM CDT 40 mg methylPREDNISolone sod succ (SOLU-Medrol) injection 40 mg 40 mg, Intravenous, EVERY 12 HOURS, First dose (after last modification) on Sat11/05/20 at 0900, Until Discontinued $ Given 11/08/2020 8:25 PM CDT 40 mg $ Given 11/08/2020 7:51 AM CDT 40 mg $ Given 11/07/2020 8:20 PM CDT 40 mg metoprolol tartrate (Lopressor) tablet 25 mg 25 mg, Enteral Tube, 2 TIMES DAILY, First dose on Sat11/09/20 at 1000, Until Discontinued $ Given 11/11/2020 9:35 AM CDT 25 mg NG Tube $ Given 11/10/2020 8:33 PM CDT 25 mg ND Tube $ Given 11/10/2020 8:34 AM CDT 25 mg NG Tube metoprolol tartrate (Lopressor) tablet 25 mg 25 mg, Oral, 2 TIMES DAILY, First dose (after last modification) on Sat11/11/20 at 2100, Until Discontinued $ Given 11/16/2020 8:22 AM CDT 25 mg $ Given 11/15/2020 8:15 PM CDT 25 mg $ Given 11/15/2020 9:41 AM CDT 25 mg montelukast (Singulair) tablet 10 mg 10 mg, Enteral Tube, AT BEDTIME, First dose (after last modification) on Sat11/08/20 at 2100, Until Discontinued $ Given 11/10/2020 8:33 PM CDT 10 mg ND Tube $ Given 11/09/2020 8:29 PM CDT 10 mg NG Tube $ Given 11/08/2020 8:25 PM CDT 10 mg ND Tube montelukast (Singulair) tablet 10 mg 10 mg, Oral, AT BEDTIME, First dose (after last modification) on Sat11/11/20 at 2100, Until Discontinued $ Given 11/15/2020 8:14 PM CDT 10 mg $ Given 11/14/2020 9:30 PM CDT 10 mg $ Given 11/13/2020 8:25 PM CDT 10 mg norepinephrine (Levophed) 8 mg/250 ml D5 infusion premix ADS Med 1 dose, Starting on Sat11/04/20 at 2042, Until Sat11/04/20 at 2028, Created by abby wu norepinephrine (Levophed) 8 mg/250 ml D5 infusion premix 0-0.4 mcg/kg/min ? 71 kg (0-53.25 mL/hr), Intravenous, CONTINUOUS, Starting on Sat11/04/20 at 2130, Until Sat11/07/20 at 0707, Titration Parameters: Standard Parameters, Indication: Hypotension, Initiate infusion at: 0.05 mcg/kg/min, Titrate infusion by: If current rate 0.01 to 0.1 mcg/kg/min, titrate by 0.01 mcg/kg/min. If current rate 0.11 to 0.3 mcg/kg/min, titrate by 0.02 mcg/kg/min. If current rate 0.31 mcg/kg/min to the max ordered dose, titrate by 0.05 mcg/kg/min., Titrate every: 1 minute, To maintain a: MAP greater than or equal to 65 mmHg, Notify physician if: MAP less than 65 mmHg despite max dose Rate Change 11/06/2020 11:41 AM CDT 0.01 mcg/kg/min 1.33 mL/hr Current Rate 11/06/2020 6:36 AM CDT 0.02 mcg/kg/min 2.66 m L/hr Titration/Assessment 11/06/2020 12:05 AM CDT 0.02 mcg/kg/m in 2.66 mL/hr ondansetron (disintegrating) (Zofran ODT) tablet 4 mg 4 mg, Oral, EVERY 6 HOURS PRN, Nausea/Vomiting, Starting on Sat11/11/20 at 1157, Until Sat11/16/20 at 1242, Dissolved orally on tongue Dissolved orally on tongue ondansetron (Zofran) injection 4 mg 4 mg, Intravenous, EVERY 6 HOURS PRN, Nausea/Vomiting, Starting on Sat11/11/20 at 1157, Until Sat11/16/20 at 1242, Administer IV if patient is NPO, actively vomiting, or unable to swallow. oxyCODONE (Roxicodone Intensol) solution 10 mg 10 mg, Enteral Tube, EVERY 6 HOURS, First dose on Sat11/06/20 at 2300, Until Discontinued $ Given 11/07/2020 6:16 AM CDT 10 mg NG Tube $ Given 11/06/2020 11:58 PM CDT 10 mg N G Tube oxyCODONE (Roxicodone Intensol) solution 10 mg 10 mg, Enteral Tube, EVERY 6 HOURS, First dose (after last modification) on Sat11/07/20 at 1100, Until Discontinued $ Given 11/11/2020 5:03 AM CDT 10 mg ND Tu be $ Given 11/10/2020 10:05 PM CDT 10 mg N D Tube $ Given 11/10/2020 5:01 PM CDT 10 mg NG Tube oxyCODONE (Roxicodone Intensol) solution 10 mg 10 mg, Oral, EVERY 6 HOURS, First dose (after last modification) on Sat11/11/20 at 1800, Until Discontinued $ Given 11/16/2020 11:15 AM CDT 10 mg $ Given 11/16/2020 5:27 AM CDT 10 mg $ Given 11/15/2020 11:50 PM CDT 10 mg oxyCODONE (Roxicodone Intensol) solution 10 mg 10 mg, Enteral Tube, NOW, 1 dose, On Sat11/11/20 at 1245 $ Given 11/11/2020 12:50 PM CDT 10 mg NG Tube phenylephrine 100 mcg/mL injection ADS Med 1 dose, Starting on Sat11/04/20 at 1950, Until Sat11/04/20 at 2000, Created by cabinet override $ Given 11/04/2020 8:00 PM CDT 200 mcg polyethylene glycol 3350 (Miralax) packet 17 g 17 g, Oral, DAILY, First dose (after last modification) on Sat11/06/20 at 1230, Until Discontinued, Mix in 8 ounces of water, juice, soda, coffee or tea prior to administration $ Given 11/06/2020 2:39 PM CDT 17 g polyethylene glycol 3350 (Miralax) packet 17 g 17 g, Enteral Tube, DAILY, First dose (after last modification) on Sat11/07/20 at 0900, Until Discontinued, Mix in 8 ounces of water, juice, soda, coffee or tea prior to administration $ Given 11/08/2020 7:56 AM CDT 17 g NG Tube $ Given 11/07/2020 8:49 AM CDT 17 g NG Tube polyethylene glycol 3350 (Miralax) packet 17 g 17 g, Oral, DAILY, First dose on Sat11/09/20 at 0900, Until Discontinued, Mix in 8 ounces of water, juice, soda, coffee or tea prior to administration potassium chloride oral solution 40 mEq 40 mEq, Enteral Tube, EVERY 4 HOURS, 2 doses, First dose on Sat11/10/20 at 0800, Last dose on Sat11/10/20 at 1200, Dilute each 15 mL with at least 3 ounces of liquid $ Given 11/10/2020 12:18 PM CDT 40 mEq NG Tube $ Given 11/10/2020 8:34 AM CDT 40 mEq NG Tube predniSONE (Deltasone) tablet 50 mg 50 mg, Enteral Tube, DAILY WITH BREAKFAST, First dose on Sat11/09/20 at 0930, Until Discontinued, Take with food $ Given 11/09/2020 9:04 AM CDT 50 mg ND Tu be predniSONE (Deltasone) tablet 50 mg 50 mg, Enteral Tube, DAILY WITH BREAKFAST, 4 doses, First dose (after last modification) on Sat11/10/20 at 0800, Last dose on Sat11/13/20 at 0800, Take with food $ Given 11/11/2020 9:35 AM CDT 50 mg NG Tube $ Given 11/10/2020 8:34 AM CDT 50 mg NG Tube predniSONE (Deltasone) tablet 50 mg 50 mg, Oral, DAILY WITH BREAKFAST, 2 doses, First dose (after last modification) on Sat11/12/20 at 0800, Last dose on Sat11/13/20 at 0800, Take with food $ Given 11/13/2020 12:34 PM CDT 50 mg $ Given 11/12/2020 8:04 AM CDT 50 mg propofol (Diprivan) infusion 0-50 mcg/kg/min ? 71 kg (0-21.3 mL/hr), Intravenous, CONTINUOUS, Starting on Sat11/04/20 at 2000, Until Sat11/08/20 at 1505, Above RASS goal (agitated): Assess and treat pain first. ??Increase rate by ordered dose unless hemodynamically unstable. At RASS goal and no change in 4 hours: Decrease rate by 10 mcg/kg/min. Below RASS goal (unarousable): Hold infusion until at goal RASS then restart at 50% previous rate. If significant hemodynamic changes, hold or decrease rate and notify physician. Titrate/administer as needed to achieve RASS goal. Note: The CPOT goal should be achieved first with the use of the ordered analgesic medication prior to targeting RASS goal with the sedative. Vial and Tubing should be changed and/or discarded every 12 hours., Titration Parameters: Custom Parameters, Indication: Sedation, Initiate infusion at: 10 mcg/kg/min, Titrate infusion by: 5 mcg/kg/min, Titrate every: 2 minutes, To maintain a: RASS score of 0 to -1 = Alert and Calm to Drowsy, Notify physician if: Unachievable RASS goal despite max dose, Contact physician for: Significant hemodynamic changes, inability to reach RASS goal despite maximal dosage. Rate Change 11/08/2020 5:54 AM CDT 5 mcg/kg/min 2.13 mL/hr Current Rate 11/08/2020 3:45 AM CDT 10 mcg/kg/min 4.26 mL/ hr $ New Bag/Syringe 11/08/2020 3:30 AM CDT 10 mcg/kg/min 4.2 6 mL/hr racepinephrine (Vaponefrin) 2.25 % nebulizer solution 0.25 mL 0.25 mL, Inhalation, ONCE, 1 dose, On Sat11/06/20 at 2230 $ Given 11/06/2020 10:20 PM CDT 0.25 mL vancomycin (Vancocin) 1,000 mg in 0.9% NaCl IV 250 mL IVPB 1,000 mg, at 250 mL/hr, Intravenous, ONCE, 1 dose, On Sat11/04/20 at 2130, Indication for anti-infective therapy: Suspected infection, Site of anti-infective therapy: Blood $ New Bag/Syringe 11/05/2020 12:00 AM CDT 1,000 mg 250 mL/hr vancomycin (Vancocin) 1,500 mg in 500 mL NaCl IVPB 1,500 mg, at 333.33 mL/hr, Intravenous, EVERY 24 HOURS, First dose on Sat11/05/20 at 2100, Until Discontinued, Next vancomycin peak level due 11/07 at 0000. Next vancomycin trough level due 11/07 at 2000. Hold next dose if vancomycin trough level comes back >21 mcg/ml., Indication for anti-infective therapy: Suspected infection, Site of anti-infective therapy: Lower Respiratory $ New Bag/Syringe 11/05/2020 11:10 PM CDT 1,500 mg 333.33 mL/hr documented in this encounter Active and Recently Administered Medications Times are shown in CDT. Scheduled Medication Order 11/14/2020 11/15/2020 11/16/2020 0.9% NaCl injection 3 mL(Linked Group 1) 3 mL, Intracatheter, EVERY 8 HOURS, First dose on Sat11/04/20 at 2200, Until Discontinued, Flush peripheral IV catheter with 3 mL of normal saline every 8 hours. 0556 ($ Given - Provider: Yanet Johnson RN)1336 ($ Given - Provider: Roseline Parker RN)2135 ($ Given - Provider: Jeanette Rice RN) 0645 (Not Administered - Provider: Jeanette Rice RN - Reason: Patient sleeping)1223 ($ Given - Provider: Roseline Parker RN)2200 ($ Given - Provider: Inez Geronimo, JUAN) 0526 ($ Given - Provider: Inez Geronimo RN) albuterol-ipratropium (Duo-Neb) nebulizer solution 3 mL 3 mL, Inhalation, EVERY 6 HOURS, First dose on Sat11/04/20 at 2000, Until Discontinued 0145 ($ Given - Provider: Arpita Downey RCP)0907 (Not Administered - Provider: Luma Canela RCP - Reason: Refused-Patient - Comment: pt uncopperative would not keep mask on face)1537 ($ Given - Provider: Luma Canela RCP)2057 ($ Given - Provider: Arpita Downey RCP) 0242 ($ Given - Provider: Arpita Downey RCP)0954 (Not Administered - Provider: Luma Rola, [employer] - Reason: Refused-Patient - Comment: pt states she does not want a tx right now)1501 (Not Administered - Provider: Elena Ellis RCP - Reason: Refused-Patient - Comment: patient refused tx again she wants to go home)2101 ($ Given - Provider: Sulma Colbert RCP) 0253 (Not Administered - Provider: Sulma Colbert RCP - Reason: Patient sleeping - Comment: Pt did not want to be woken up for tx.)0847 ($ Given - Provider: Julia Del Valle RCP) amitriptyline (Elavil) tablet 25 mg 25 mg, Oral, DAILY, First dose on Sat11/08/20 at 1115, Until Discontinued 0939 ($ Given - Provider: Roseline Parker, JUAN) 0941 ($ Given - Provider: Roseline Parker, JUAN) 0822 ($ Given - Provider: Armida Gutierrez RN) budesonide-formoterol (Symbicort) 160-4.5 MCG/ACT inhaler 2 puff 2 puff, Inhalation, 2 TIMES DAILY, First dose on Sat11/04/20 at 2200, Until Discontinued, Rinse mouth after usage . WASTE DISPOSAL INSTRUCTION: Send to Pharmacy for Disposal. . 0908 (Not Administered - Provider: Luma Canela RCP - Reason: Refused-Patient - Comment: pt uncooperative refuses to take)2056 ($ Given - Provider: Arpita Downey RCP) 0955 (Not Administered - Provider: Luma Canela RCP - Reason: Refused-Patient - Comment: pt refuses to take at this time)2103 ($ Given - Provider: Sulma Colbert RCP) 0847 ($ Given - Provider: Julia Del Valle RCP) busPIRone (Buspar) tablet 5 mg 5 mg, Oral, 2 TIMES DAILY, First dose on Sat11/08/20 at 1115, Until Discontinued 0939 ($ Given - Provider: Roseline Parker, JUAN)2129 ($ Given - Provider: Jeanette Rice RN) 0941 ($ Given - Provider: Roseline Parker RN)2014 ($ Given - Provider: Inez Geronimo RN) 0822 ($ Given - Provider: Armida Gutierrez, JUAN) chlorhexidine (Peridex) 0.12 % oral solution 15 mL 15 mL, Mouth/Throat, 2 TIMES DAILY, First dose on Sat11/04/20 at 2100, Until Discontinued, Swab oral mucosa for 30 seconds. Do not brush teeth immediately after use. . WASTE DISPOSAL INSTRUCTIONS: Black Bin Disposal required. 0954 (Not Administered - Provider: Roseline Parker RN - Reason: Refused-Patient)2133 (Not Administered - Provider: Jeanette Rice RN - Reason: Refused-Patient) 09 (Not Administered - Provider: Roseline Parker RN - Reason: Refused-Patient)2014 ($ Given - Provider: Inez Geronimo RN) 08 (Not Administered - Provider: Armida Gutierrez RN - Reason: Refused-Patient) clonazePAM (KlonoPIN) tablet 1 mg 1 mg, Oral, AT BEDTIME, First dose on Sat11/08/20 at 2100, Until Discontinued 2128 ($ Given - Provider: Jeanette Rice RN) 2013 ($ Given - Provider: Inez Geronimo RN) guaiFENesin (Robitussin) solution 10 mL 10 mL, Oral, EVERY 8 HOURS, First dose on Sat11/08/20 at 1545, Until Discontinued 0742 (Not Administered - Provider: Yanet Johnson RN - Reason: Refused-Parent/Guardi an)1336 (Not Administered - Provider: Roseline Parker RN - Reason: Refused-Patient)213 (Not Administered - Provider: Jeanette Rice RN - Reason: Refused-Patient) 0646 (Not Administered - Provider: Jeanette Rice RN - Reason: Patient sleeping)1342 ($ Given - Provider: Roseline Parker RN)2200 (Not Administered - Provider: Inez Geronimo RN - Reason: Refused-Patient) 0549 (Not Administered - Provider: Inez Geronimo RN - Reason: Refused-Patient) heparin injection 5,000 Units 5,000 Units, Subcutaneous, 2 TIMES DAILY, First dose on Sat11/04/20 at 2100, Until Discontinued 0953 (Not Administered - Provider: Roseline Parker RN - Reason: Refused-Patient)2131 ($ Given - Provider: Jeanette Rice RN) 09 ($ Given - Provider: Roseline Parker RN)2014 ($ Given - Provider: Inez Geronimo, JUAN) 0822 ($ Given - Provider: Armida Gutierrez, RN) hydroCHLOROthiazide (Hydrodiuril) tablet 12.5 mg 12.5 mg, Oral, DAILY, First dose on Sat11/10/20 at 1545, Until Discontinued 09 ($ Given - Provider: Roseline Parker RN) 09 ($ Given - Provider: Roseline Parker RN) 08 ($ Given - Provider: Armida Gutierrez, RN) insulin aspart (NovoLOG) pen 0-6 Units 0-6 Units, Subcutaneous, 4 TIMES DAILY - BEFORE MEALS AND AT BEDTIME, First dose (after last modification) on Sat11/14/20 at 2100, Until Discontinued, Low Dose: Correction Insulin BG (mg/dL) Corrective Action LESS than 70: follow Hypoglycemic guidelines, 70-180: NO Correction insulin, 181-220: GIVE 2 units of insulin, 221-260: GIVE 3 units of insulin, 261-300: GIVE 4 units of insulin, 301-350: GIVE 5 units of insulin, Greater than 350: GIVE 6 units of insulin and notify physician., If the patient is NPO: DO NOT HOLD correction insulin If patient is eating meals and has orders for Mealtime insulin, combine and give at the same time. 2131 (Not Administered - Provider: Jeanette Rice RN - Reason: Per Administration Instructions) 09 (Not Administered - Provider: Roseline Parker RN - Reason: Per Administration Instructions)1224 (Not Administered - Provider: Roseline Parker RN - Reason: Per Administration Instructions)1733 (Not Administered - Provider: Roseline Parker RN - Reason: Per Administration Instructions)2013 ($ Given - Provider: Inez Geronimo RN) 0817 (Not Administered - Provider: Armida Gutierrez RN - Reason: Per Administration Instructions)1100 (Due) lactulose (Chronulac) solution 20 g 20 g, Oral, 3 TIMES DAILY, First dose on Sat11/08/20 at 0900, Until Discontinued 0953 (Not Administered - Provider: Roseline Parker RN - Reason: Refused-Patient)133 (Not Administered - Provider: Roseline Parker RN - Reason: Refused-Patient)2133 (Not Administered - Provider: Jeanette Rice RN - Reason: Refused-Patient) 0944 (Not Administered - Provider: Roseline Parker RN - Reason: Refused-Patient)134 (Not Administered - Provider: Roseline Parker RN - Reason: Refused-Patient)2015 (Not Administered - Provider: Inez Geronimo RN - Reason: Refused-Patient) 0818 (Not Administered - Provider: Armida Gutierrez RN - Reason: Refused-Patient) lisinopril (Prinivil; Zestril) tablet 10 mg 10 mg, Oral, DAILY, First dose (after last modification) on Sat11/12/20 at 0900, Until Discontinued 0939 ($ Given - Provider: Roseline Parker RN) 09 ($ Given - Provider: Roseline Parker RN) 08 ($ Given - Provider: Armida Gutierrez, JUAN) metoprolol tartrate (Lopressor) tablet 25 mg 25 mg, Oral, 2 TIMES DAILY, First dose (after last modification) on Sat11/11/20 at 2100, Until Discontinued 0939 ($ Given - Provider: Roseline Parker RN)2129 ($ Given - Provider: Jeanette Rice RN) 09 ($ Given - Provider: Roseline Parker RN)2014 ($ Given - Provider: Inez Geronimo, JUAN) 08 ($ Given - Provider: Armida Gutierrez, JUAN) montelukast (Singulair) tablet 10 mg 10 mg, Oral, AT BEDTIME, First dose (after last modification) on Sat11/11/20 at 2100, Until Discontinued 2129 ($ Given - Provider: Jeanette Rice, JUAN) 2013 ($ Given - Provider: Inez Geronimo RN) oxyCODONE (Roxicodone Intensol) solution 10 mg 10 mg, Oral, EVERY 6 HOURS, First dose (after last modification) on Sat11/11/20 at 1800, Until Discontinued 0107 (Not Administered - Provider: Yanet Johnson RN - Reason: See Comments - Comment: pt not in pain)0742 (Not Administered - Provider: Yanet Johnson RN - Reason: Refused-Parent/Guardi an)1333 ($ Given - Provider: Roseline Parker RN)1847 ($ Given - Provider: Roseline Parker RN) 0153 (Not Administered - Provider: Jeanette Rice RN - Reason: Patient sleeping)0645 (Not Administered - Provider: Jeanette Rice RN - Reason: Patient sleeping)1226 ($ Given - Provider: Roseline Parker RN)1734 ($ Given - Provider: Roseline Parker RN)2350 ($ Given - Provider: Inez Geronimo RN) 0527 ($ Given - Provider: Inez Geronimo RN)1115 ($ Given - Provider: Armida Gutierrez, JUAN) polyethylene glycol 3350 (Miralax) packet 17 g 17 g, Oral, DAILY, First dose on Sat11/09/20 at 0900, Until Discontinued, Mix in 8 ounces of water, juice, soda, coffee or tea prior to administration 0953 (Not Administered - Provider: Roseline Parker RN - Reason: Refused-Patient) 0945 (Not Administered - Provider: Roseline Parker RN - Reason: Refused-Patient) 0818 (Not Administered - Provider: Armida Gutierrez RN - Reason: Refused-Patient) PRN Medication Order 11/14/2020 11/15/2020 11/16/2020 0.9% NaCl flush bag at 20 mL/hr, 500 mL, CONTINUOUS PRN, Starting on 11/05/20 at 0144, Until Sat11/16/20 at 1242, IVPB FLUSH BAG, Use for: IVPB flush 0.9% NaCl injection 1-10 mL(Linked Group 1) 1-10 mL, Intracatheter, PRN, Other, peripheral line flush, Starting on Sat11/04/20 at 1914, Until Sat11/16/20 at 1242, Flush peripheral IV catheter with 1-10 mL of normal saline before and after medications and prn to clear blood from the line or to verify patency. acetaminophen (Tylenol) suppository 650 mg(Linked Group 2) 650 mg, Rectal, EVERY 4 HOURS PRN, for temperature greater than 101F, Starting on Sat11/11/20 at 1157, Until Sat11/16/20 at 1242, Give rectally if unable to take acetaminophen orally. acetaminophen (Tylenol) tablet 650 mg(Linked Group 2) 650 mg, Oral, EVERY 4 HOURS PRN, for temperature greater than 101F, Starting on Sat11/11/20 at 1157, Until Sat11/16/20 at 1242 artificial tears ophthalmic solution 1 drop 1 drop, Each Eye, EVERY 4 HOURS PRN, Dry Eyes, Starting on Sat11/04/20 at 1918, Until Sat11/16/20 at 1242 dextrose IV 12.5-25 g 12.5-25 g (25-50 mL), Intravenous, PRN, Bedside Glucose less than 70 mg/dL -If NOT able to eat and/or NPO and with IV Access, Starting on Sat11/04/20 at 1928, Until Sat11/16/20 at 1242, If NOT able to eat and/or NPO and with IV Access: For Bedside Glucose 54-69 mg/dL give 25 mls D50W IVP STAT For Bedside glucose 54 mg/dL or LESS verify with a second Bedside Glucose (from a different site) and give 50 mls D50W IVP STAT Re-check and Re-treat blood glucose EVERY 10-25 minutes until blood glucose GREATER than or equal to 80 mg/dl. NOTIFY PROVIDER OF HYPOGLYCEMIC EVENT. glucagon (Glucagen) injection 1 mg 1 mg, Intramuscular, PRN, Bedside Glucose less than 70 mg/dL - If NOT able to eat and/or NPO and withOUT IV Access, Starting on Sat11/04/20 at 1928, Until Sat11/16/20 at 1242, If NOT able to eat and/or NPO and NO IV Access: For Bedside glucose 54-69 mg/dL Give 1 mg IM or SQ For Bedside Glucose LESS than 54 mg/dl verify with a second bedside glucose (from a different site) and Give 1 mg IM or SQ Re-check and Re-treat blood glucose EVERY 10-25 minutes until blood glucose GREATER than or equal to 80 mg/dl. NOTIFY PROVIDER OF HYPOGLYCEMIC EVENT. Reconstitute vial with 1 mL of sterile water for injection for a final concentration of 1 mg/mL; shake vial gently; use immediately and discard unused portion glucose (Diabetic Use) (Dex4 Glucose) oral liquid Oral, PRN, Other, Bedside Glucose less than 70 mg/dL -If able to eat and does not have swallowing difficulties, Starting on Sat11/04/20 at 1928, Until Sat11/16/20 at 1242, If able to eat and can swallow thin liquids: For Bedside Glucose 54 - 69 mg/dL Give 15 grams of oral carbohydrates - 1 glucose liquid (see MAR) If patient refuses glucose liquid, then offer: - 4 ounces of fruit juice OR - 4 ounces non-diet soda OR - 8 ounces of fat-free milk For Bedside Glucose LESS than 54 mg/dL verify with a second Bedside Glucose (from a different site) - If pt is symptomatic, do not delay treatment If the patient is exhibiting symptoms which are not consistent with the results obtained, confirm the glucose with a STAT laboratory test. Give 30 grams of oral carbohydrates - 2 glucose liquid (see MAR) If patient refuses glucose liquid, then offer: - 8 ounces of fruit juice OR - 8 ounces non-diet soda OR - 16 ounces of fat-free milk Re-check and Re-treat blood glucose EVERY 10-25 minutes until blood glucose GREATER than or equal to 80 mg/dl. NOTIFY PROVIDER OF HYPOGLYCEMIC EVENT. glucose (Diabetic Use) oral gel Oral, PRN, Other, Bedside Glucose less than 70 mg/dL -If able to eat and does not have swallowing difficulties, Starting on Sat11/04/20 at 1928, Until Sat11/16/20 at 1242, If able to eat and is better able to swallow gel: For Bedside Glucose 54 - 69 mg/dL Give 15 grams of oral carbohydrates - 1 glucose gel (see MAR) If patient refuses glucose gel, then offer: - 4 ounces of fruit juice OR - 4 ounces non-diet soda OR - 8 ounces of fat-free milk For Bedside Glucose LESS than 54 mg/dL verify with a second Bedside Glucose (from a different site) - If pt is symptomatic, do not delay treatment If the patient is exhibiting symptoms which are not consistent with the results obtained, confirm the glucose with a STAT laboratory test. Give 30 grams of oral carbohydrates - 2 glucose gels (see MAR) If patient refuses glucose gel, then offer: - 8 ounces of fruit juice OR - 8 ounces non-diet soda OR - 16 ounces of fat-free milk Re-check and Re-treat blood glucose EVERY 10-25 minutes until blood glucose GREATER than or equal to 80 mg/dl. NOTIFY PROVIDER OF HYPOGLYCEMIC EVENT. hydrALAZINE (Apresoline) injection 10 mg 10 mg, Intravenous, EVERY 6 HOURS PRN, SBP greater than 170 mmHg, Starting on Sat11/09/20 at 0924, Until Sat11/16/20 at 1242 LORazepam (Ativan) injection 0.5 mg 0.5 mg, Intravenous, EVERY 6 HOURS PRN, Anxiety, Agitation, Starting on Sat11/11/20 at 1748, Until Sat11/16/20 at 1242 ondansetron (disintegrating) (Zofran ODT) tablet 4 mg(Linked Group 3) 4 mg, Oral, EVERY 6 HOURS PRN, Nausea/Vomiting, Starting on Sat11/11/20 at 1157, Until Sat11/16/20 at 1242, Dissolved orally on tongue Dissolved orally on tongue ondansetron (Zofran) injection 4 mg(Linked Group 3) 4 mg, Intravenous, EVERY 6 HOURS PRN, Nausea/Vomiting, Starting on Sat11/11/20 at 1157, Until Sat11/16/20 at 1242, Administer IV if patient is NPO, actively vomiting, or unable to swallow. Linked Groups Order Group 1: SALINE LOCK, INSERT AND MAINTAIN (CANCELED) Routine, CONTINUOUS, Starting on Sat11/04/20 at 1915, Until Specified, New collection And 0.9% NaCl injection 3 mLJump to med 3 mL, Intracatheter, EVERY 8 HOURS, First dose on Sat11/04/20 at 2200, Until Discontinued, Flush peripheral IV catheter with 3 mL of normal saline every 8 hours. And 0.9% NaCl injection 1-10 mLJump to med 1-10 mL, Intracatheter, PRN, Other, peripheral line flush, Starting on Sat11/04/20 at 1914, Until Sat11/16/20 at 1242, Flush peripheral IV catheter with 1-10 mL of normal saline before and after medications and prn to clear blood from the line or to verify patency. Group 2: acetaminophen (Tylenol) tablet 650 mgJump to med 650 mg, Oral, EVERY 4 HOURS PRN, for temperature greater than 101F, Starting on Sat11/11/20 at 1157, Until Sat11/16/20 at 1242 Or acetaminophen (Tylenol) suppository 650 mgJump to med 650 mg, Rectal, EVERY 4 HOURS PRN, for temperature greater than 101F, Starting on Sat11/11/20 at 1157, Until Sat11/16/20 at 1242, Give rectally if unable to take acetaminophen orally. Group 3: ondansetron (disintegrating) (Zofran ODT) tablet 4 mgJump to med 4 mg, Oral, EVERY 6 HOURS PRN, Nausea/Vomiting, Starting on Sat11/11/20 at 1157, Until Sat11/16/20 at 1242, Dissolved orally on tongue Dissolved orally on tongue Or ondansetron (Zofran) injection 4 mgJump to med 4 mg, Intravenous, EVERY 6 HOURS PRN, Nausea/Vomiting, Starting on Sat11/11/20 at 1157, Until Sat11/16/20 at 1242, Administer IV if patient is NPO, actively vomiting, or unable to swallow. documented in this encounter Additional Health Concerns Infection Onset Date Last Indicated Resolved Time COVID-19 Under Investigation 11/05/2020 11/05/2020 11/05/2020 2:04 PM CDT documented as of this encounter
--- OUTSIDE RECORDS SUMMARY | 2024-08-05 02:30 | XMS_ITS | Encounter Summary ---
Author Organization [facility] Healthcare Address [address] [place] [address] Care Team Providers Care Production Operator Name Role Phone Eusebio Nagy MD Primary Care Provider [phone] To Caballero MD Unavailable [phone] Jacinto Aguilar MD Unavailable Encounter Details Date Type Department Care Team (Late st Contact Info) Description 11/23/2022 Telephone [facility] [address] [address] [place] [address] Sveta Bynum RN Social History Tobacco Use Types Packs/Day Years Used Date Smoking Tobacco: Former Cigarettes Q uit: 08/23/2004 Comments No Sex and Gender Information Value Date Recorded Sex Assigned at Not on file 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 documented in this encounter Plan of Treatment Not on file documented as of this encounter Visit Diagnoses Not on filedocumented in this encounter Care Teams Production Operator Relationship Specialty Start Date End Date Eusebio Nagy MD PCP - General Internal Medicine 12/21/20 To Caballero MD [address] [place] [address] Referring Physician Obstetrics and Gynecology 06/09/21 Jacinto Aguilar MD [address] [address] Internal Medicine 11/08/22 documented as of this encounter
--- OUTSIDE RECORDS SUMMARY | 2024-08-05 02:30 | XMS_ITS ---
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) ACTIVE 09/28/2021 CHRONIC OBSTRUCTIVE PULMONAR Y DISEASE, UNSPECIFIED (J44.9 - ICD-10-CM) ACTIVE 2021 PERSONAL HISTORY OF (HEALED) TRAUMATIC FRACTURE (Z87.81 - ICD-10-CM) ACTIVE 2021 NONDISPLACED TYPE II DENS FR ACTURE, SEQUELA (S12.112S - ICD-10-CM) ACTIVE 2021 HEART FAILURE, UNSPECIFIED (I50.9 - ICD-10-CM) ACTIVE 2021 ESSENTIAL (PRIMARY) HYPERTENSION (I10 - ICD-10-CM) ACT MARY 2021 CHEST PAIN, UNSPECIFIED (R07.9 - ICD-10-CM) ACTIVE 2021 OBSTRUCTIVE SLEEP APNEA (NADEGE LT) (PEDIATRIC) (G47.33 - ICD-10-CM) ACTIVE 2021 SYNCOPE AND COLLAPSE (R55 - ICD-10-CM) ACTIVE DEPRESSION, UNSPECIFIED (F32.A - ICD-10-CM) ACTIVE 2021 ANXIETY DISORDER, UNSPECIFIED (F41.9 - ICD-10-CM) ACTI VE 2021 VITAMIN D DEFICIENCY, UNSPECIFIED (E55.9 - ICD-10-CM) ACTIVE 2021 ACUTE AND CHRONIC RESPIRATOR Y FAILURE, UNSPECIFIED WHETHER WITH HYPOXIA OR HYPERCAPNIA (J96.20 - ICD-10-CM) ACTIVE 2021 OTHER CHRONIC PAIN (G89.29 - ICD-10-CM) ACTIVE 0 2021 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 with no home health services [facility] [place] - [facility] 2021 03:11 pm EST - 09/28/2021 08:59 pm EST Social History
--- OUTSIDE RECORDS SUMMARY | 2024-08-05 02:30 | XMS_ITS | Encounter Summary ---
Author Organization [facility] Healthcare Address [address] [place] [address] Care Team Providers Care Naval Aircrewman Name Role Phone Eusebio Nagy MD Primary Care Provider [phone] To Caballero MD Unavailable [phone] Jacinto Aguilar MD Unavailable Encounter Details Date Type Department Care Team (Late st Contact Info) Description 11/27/2022 Telephone [facility] [address] [facility] [address] [place] [address] Jose Ramon Jaramillo RN Social History Tobacco Use Types Packs/Day Years Used Date Smoking Tobacco: Former Cigarettes Q uit: 08/23/2004 Comments No Sex and Gender Information Value Date Recorded Sex Assigned at Not on file 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 Appointment rescheduled. documented in this encounter Plan of Treatment Not on file documented as of this encounter Visit Diagnoses Not on filedocumented in this encounter Care Teams Naval Aircrewman Relationship Specialty Start Date End Date Eusebio Nagy MD PCP - General Internal Medicine 12/21/20 To Caballero MD [address] [place] [address] Referring Physician Obstetrics and Gynecology 06/09/21 Jacinto Aguilar MD [address] [place] [id number] Internal Medicine 11/08/22 documented as of this encounter
--- OUTSIDE RECORDS SUMMARY | 2024-08-05 02:30 | XMS_ITS | Encounter Summary ---
Author Organization [facility] Address [address] [place] [address] Phone Care Team Providers Care Berry Grower Name Role Phone Eusebio Nagy MD Primary Care Provider To Caballero MD Unavailable [phone] Jacinto Aguilar MD Unavailable Encounter Details Date Type Department Care Team (Late st Contact Info) Description 01/09/2023 Telephone [facility] Oncology [address] [place] [address] [address] [phone] Katharine Osman CLT Social History Tobacco Use Types Packs/Day Years Used Date Smoking Tobacco: Former Cigarettes Q uit: 08/23/2004 Comments No Sex and Gender Information Value Date Recorded Sex Assigned at Not on file 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 Gender Identity Not on file Sexual Orientation Not on file documented as of this encounter Miscellaneous Notes * Telephone Encounter - Katharine Osman CLT - 01/09/2023 3:02 PM CDT Lmom 01/10/23 appt reminder documented in this encounter Plan of Treatment Not on file documented as of this encounter Visit Diagnoses Not on filedocumented in this encounter Care Teams Berry Grower Relationship Specialty Start Date End Date Eusebio Nagy MD PCP - General Internal Medicine 12/21/20 To Caballero MD [address] [place] [address] Referring Physician Obstetrics and Gynecology 06/09/21 Jacinto Aguilar MD [address] [place] [id number] Internal Medicine 11/08/22 documented as of this encounter
--- OUTSIDE RECORDS SUMMARY | 2024-08-05 02:30 | XMS_ITS | Referral Summary ---
Author Organization [place] [id number] [facility] Address [address] [place] [address] Care Team Providers Care Psychologist Educational Name Role Phone Eusebio Nagy MD Primary Care Provider [phone] To Caballero MD Unavailable [phone] Jacinto Aguilar MD Unavailable Allergies Active Allergy Reactions Criticality Noted Date Comments Duloxetine Cough Low 09/10/2020 Hydroxychloroquine Rash Medium 12/28/2020 Quinapril Rash Medium 09/10/2020 Medications albuterol HFA (PROVENTIL HFA,VENTOLIN HFA,PROAIR HFA) 90 mcg/actuation inhaler Inhale 2 puffs every 4 (four) hours as needed for wheezing 1 Inhaler 08/30/2020 Active hydroCHLOROthia zide (HYDRODIURIL) 12.5 mg tablet Take 1 tablet (12.5 mg total) by mouth daily 30 tablet 08/30/2020 Active tiotropium bromide (SPIRIVA RESPIMAT) 2.5 mcg/actuation inhaler Inhale 2 puffs daily Active Advair Diskus 250-50 mcg/dose diskus inhaler 08/11/2021 Acti ve acetaminophen 500 mg capsuleIndicati ons:Pain Take 2 capsules (1,000 mg total) by mouth every 6 (six) hours 30 tablet 2021 Active HYDROcodone-hector taminophen (NORCO) 7.5-325 mg per tablet Take 1 tablet by mouth every 6 (six) hours as needed 11/09/2021 Active metoprolol XL (TOPROL-XL) 100 mg 24 hr tablet 10/05/[address] (PROTONIX) 40 mg EC tablet Take 1 tablet (40 mg total) by mouth daily Active Active Problems Problem Noted Date Diagnosed Date Iron deficiency anemia 11/08/2022 Diagnosis unknown 09/23/2021 Abnormal gait 12/28/2020 Impairment of balance 12/28/2020 Weakness 12/28/2020 Type III fracture of odontoi d process, with routine healing, subsequent encounter 12/28/2020 Lumbar compression fracture, closed, initial enc ounter 12/28/2020 Chronic respiratory failure 11/04/2020 At risk for venous thromboembolism (VTE) 021 Overview (12/28/2020): Problem added by Discern Expert Rule: [id number]_3 Syncope 09/13/2020 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 Cont O2- baseline 3 L, wean as able Start ICA/LABA, LAMA HTN (hypertension) 08/23/2020 Assessment & Plan (08/27/2020 7:31 PM FOREIGN SERVICE TEACHER): HCTZ 12.5mg Oral Daily, Metoprolol Succinate 100mg Daily.?? Anxiety 02/15/2020 Chronic congestive heart failure (CMS/HCC) 02/14 Depression 02/15/2020 Pulmonary hypertension, moderate to severe 02/14 Sleep apnea 02/15/2020 Resolved Problems Problem Noted Date Diagnosed Date Resolved Date Acute on chronic respiratory failure with hypoxia and hypercapnia ([facility]/HCC) 08/27/20202020 Assessment & Plan (08/29/2020 12:36 PM FOREIGN SERVICE TEACHER): Presented w/hypercapnic respiratory failure likely to COPD Exacerbation and possible PNA. Initially on BIPAP then intuabted. Unclear precipitant but some concern for polypharmacy in the setting of multiple benzo prescriptions (Clonazepam and Tenazepam) along with opiates. 08/23 VBG 7.16 >125 158 - all infectious workup neg to date - narrowed to CTX, last dose tomorrow ?UA 1+ protein, trace bacteria ?CXR Small lung volumes with patchy airspace opacities on the R. No pleural effusion. -??RVP neg, Legionella Ag neg, COVID neg - BCx and trach asp Cx 08/23 NGTD -??Intubated 08/23;??Extubated 08/26 - Abx:??Vanc/Cefe (08/23); Azithro (08/23 - 08/25) Ceftriaxone (08/23 - 08/27) - Prednisone 60mg daily (08/23-08/26), decreased to 40mg (08/27-08/28) -??Albuterol and Ipratropium HFA q4hrs Acute encephalopathy 08/27/2020 021 Assessment & Plan (08/27/2020 7:23 PM FOREIGN SERVICE TEACHER): Likely toxic-metabolic in etiology in the setting of above respiratory failure/hypercapnia. Baseline she is A&O x3. 08/23?Ammonia 52H, TSH 0.26L, T4 1.18, Lactate 0.5 -??hCT NAIA - UDS with benzos and oxycodone. -??Continue monitor Iron deficiency anemia 08/27/202009/13 Assessment & Plan (08/29/2020 12:37 PM FOREIGN SERVICE TEACHER): Presented with Hgb in 8s without explanation, MCV high 70s, iron profile 13, ferritin 28, Tsat 4%, now s/p 1U PRBCs and 1 x Ferrlecit. - Consider age-appropriate screening and iron supplementation on outpatient basis - started fe sulf bid 08/28 Acute hypercapnic respirator y failure ([facility]) 08/23/2020 09/13/2020 Assessment & Plan (08/29/2020 12:33 PM FOREIGN SERVICE TEACHER): 2/2 copd exacerbation Sp antibiotics and 5 days of prednisone Wean O2 as able Encephalopathy acute 08/23/2020 021 Hyperlipidemia 02/15/2020 09/13/2020 Disorder of lung 05/20/2015 09/13/2020 Thoracic spine fracture ([facility]) 09/13/2020 Overview (08/23/2020): 3 months ago Assessment & Plan (08/29/2020 12:36 PM FOREIGN SERVICE TEACHER): Suspect secondary to fall 3 months ago where patient was reported to have sustained spinal fractures. Has been taking opiates for pain at home. 08/23 CT Abd/Pelv Moderate to Severe Compression fractures at T11 and T12. -PT/OT -Vit d replacement -Consider bone health OP evaluation COPD (chronic obstructive pulmonary disease) 09/13/2020 Immunizations Name Administration Dates Next Due Influenza, Quadrivalent, Spl it, Intramuscular 06/05/2019 Influenza, Quadrivalent, Spl it, Preservative Free, Intramuscular 05/23/2013 Influenza, Trivalent, High D ose, Split, Preservative Free, Intramuscular 04/24/2018,04/28/2017,04/27/2015,05/12 Influenza, Trivalent, IM (MDV) 05/21/2013 Influenza, Trivalent, Preser vative Free, Intramuscular 05/08/2013 Influenza, Unspecified 08/14/2022,05/05/2020 Pneumococcal, Unspecified 08/05/2016 Social History Tobacco Use Types Packs/Day Years Used Date Smoking Tobacco: Former Cigarettes Q uit: 08/23/2004 Comments No Sex and Gender Information Value Date Recorded Sex Assigned at Not on file Legal Sex Female 11:40 AM FOREIGN SERVICE TEACHER Gender Identity Not on file Sexual Orientation Not on file Last Filed Vital Signs Vital Sign Reading Time Taken Comments Blood Pressure 137/70 12/05/2022 2:19 PM CDT Pulse 65 12/05/2022 2:19 PM CDT Temperature 37 ??C (98.6 ??F) 12/05/2022 2:19 PM CDT Respiratory Rate 20 12/05/2022 2:19 PM CDT Oxygen Saturation 99% 12/05/2022 2:19 PM CDT Inhaled Oxygen Concentration - - Weight 57.5 kg (126 lb 12.8 oz) 11/08/2022 2:03 PM CDT Height 152.4 cm (5') 11/08/2022 2:03 PM CDT Body Mass Index 24.76 11/08/2022 2:03 PM CDT Plan of Treatment Not on file Insurance [employer] [facility] Address: [address] [address] [place] [address] [employer] [facility] MED[facility] Address: [address] [address] [place] [address] [facility] CHOICE PLUS [facility] HMO/PPO Address: [address] [address] [place] [address] [address] [place] [facility] MDCR HMO REF [facility] Address: [address] [address] [place] [address] [employer] [facility] Address: [address] [address] [place] [address] Advance Directives For more information, please contact: [phone] * Full Code (Latest Code Status on File) Date Activated Date Inactivated Comments 09/23/2021 11:07 PM 2021 5:10 PM * Full Code Date Activated Date Inactivated Comments 09/11/2020 2:58 AM 09/16/2020 7:36 PM * Full Code Date Activated Date Inactivated Comments 08/23/2020 9:06 PM 08/30/2020 10:29 PM Care Teams Psychologist Educational Relationship Specialty Start Date End Date Eusebio Nagy MD PCP - General Internal Medicine 12/21/20 To Caballero MD [address] [place] [address] Referring Physician Obstetrics and Gynecology 06/09/21 Jacinto Aguilar MD [address] [address] Internal Medicine 11/08/22
--- OUTSIDE RECORDS SUMMARY | 2024-08-05 02:30 | XMS_ITS | Encounter Summary ---
Author Organization [facility] Address [address] [place] [address] Phone Care Team Providers Care Wood And Wood Products Factory Worker Name Role Phone Eusebio Nagy MD Primary Care Provider To Caballero MD Unavailable [phone] Jacinto Aguilar MD Unavailable Encounter Details Date Type Department Care Team (Late st Contact Info) Description 04/10/2023 Telephone [facility] Oncology [address] [place] [address] Medical Office [address] [phone] Katharine Osman CLT Social History Tobacco Use Types Packs/Day Years Used Date Smoking Tobacco: Former Cigarettes Q uit: 08/23/2004 Comments No Sex and Gender Information Value Date Recorded Sex Assigned at Not on file Legal Sex Female 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 Gender Identity Not on file Sexual Orientation Not on file documented as of this encounter Miscellaneous Notes * Telephone Encounter - Katharine Osman CLT - 04/10/2023 1:32 PM CDT Lmom 04/11/23 appt reminder documented in this encounter Plan of Treatment Not on file documented as of this encounter Visit Diagnoses Not on filedocumented in this encounter Care Teams Wood And Wood Products Factory Worker Relationship Specialty Start Date End Date Eusebio Nagy MD PCP - General Internal Medicine 12/21/20 To Caballero MD [address] [place] [address] Referring Physician Obstetrics and Gynecology 06/09/21 Jacinto Aguilar MD [address] [place] [address] Internal Medicine 11/08/22 documented as of this encounter
--- OUTSIDE RECORDS SUMMARY | 2024-08-05 02:30 | XMS_ITS | Encounter Summary ---
Author Organization [facility] Healthcare Address [address] [place] [address] Care Team Providers Care Termite Treater Name Role Phone Eusebio Nagy MD Primary Care Provider [phone] To Caballero MD Unavailable [phone] Jacinto Aguilar MD Unavailable Encounter Details Date Type Department Care Team (Late st Contact Info) Description 11/23/2022 Telephone [facility] [address] [facility] [address] [place] [address] Giuseppe Montelongo MD [address] [place] [address] [address] [place] [address] Social History Tobacco Use Types Packs/Day Years Used Date Smoking Tobacco: Former Cigarettes Q uit: 08/23/2004 Comments No Sex and Gender Information Value Date Recorded Sex Assigned at Not on file 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 Agreed to move her appointment to 1100 same day. Appointment time was changed and patient was informed of the new time. documented in this encounter Plan of Treatment Not on file documented as of this encounter Visit Diagnoses Not on filedocumented in this encounter Care Teams Termite Treater Relationship Specialty Start Date End Date Eusebio Nagy MD PCP - General Internal Medicine 12/21/20 To Caballero MD [address] [place] [address] Referring Physician Obstetrics and Gynecology 06/09/21 Jacinto Aguilar MD [address] [address] Internal Medicine 11/08/22 documented as of this encounter
--- OUTSIDE RECORDS SUMMARY | 2024-08-05 02:30 | XMS_ITS | Encounter Summary ---
Author Organization [facility] Address [address] [place] [address] Phone Care Team Providers Care Qa Internship Name Role Phone Eusebio Nagy MD Primary Care Provider To Caballero MD Unavailable [phone] Jacinto Aguilar MD Unavailable Encounter Details Date Type Department Care Team (Late st Contact Info) Description 04/11/2023 Telephone [facility] Oncology [address] [facility] Medical Office Bl [address] [phone] Alina Mcconnell CLT Social History Tobacco Use Types Packs/Day Years Used Date Smoking Tobacco: Former Cigarettes Q uit: 08/23/2004 Comments No Sex and Gender Information Value Date Recorded Sex Assigned at Not on file 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 Gender Identity Not on file Sexual Orientation Not on file documented as of this encounter Miscellaneous Notes * Telephone Encounter - Alina Mcconnell CLT - 04/11/2023 9:42 AM CDT DOES NOT WANT TO RESCHEDULE AT THIS TIME documented in this encounter Plan of Treatment Not on file documented as of this encounter Visit Diagnoses Not on filedocumented in this encounter Care Teams Qa Internship Relationship Specialty Start Date End Date Eusebio Nagy MD PCP - General Internal Medicine 12/21/20 To Caballero MD [address] [place] [address] Referring Physician Obstetrics and Gynecology 06/09/21 Jacinto Aguilar MD [address] [place] [address] Internal Medicine 11/08/22 documented as of this encounter
--- OUTSIDE RECORDS SUMMARY | 2024-08-05 02:30 | XMS_ITS | Encounter Summary ---
Author Organization [facility] Healthcare Address [address] [place] [address] Care Team Providers Care Compressor Mechanic Bus Name Role Phone Eusebio Nagy MD Primary Care Provider [phone] To Caballero MD Unavailable [phone] Jacinto Aguilar MD Unavailable Reason for Visit * Reason Comments OP Infusion * Episode Based Medications (Routine) - Closed Specialty Diagnoses / Procedures Referred By Contac t Referred To Contact Diagnoses Iron deficiency anemia, unspecified iron deficiency anemia type Giuseppe Montelongo MD [address] [place] [address] Phone: tel: fax: [facility] Infusion [address] [place] [address] Phone: tel: Referral ID Status Reason Start Date Expiration Date Visits Re quested Visits Authorized [id number] Closed 11/08/2022 12/08/2023 3 3 Encounter Details Date Type Department Care Team (Late st Contact Info) Description 11/20/2022 1:30 PM CDT Infusion [facility] Infusion [address] [place] [address] Iron deficiency anemia, unspecified iron deficiency anemia type (Primary Dx) Social History Tobacco Use Types Packs/Day Years Used Date Smoking Tobacco: Former Cigarettes Q uit: 08/23/2004 Comments No Sex and Gender Information Value Date Recorded Sex Assigned at Not on file 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 IV started per oct. Iron infusion given and noted in OCT. IV discontinued, site without redness or edema. Next appointment given. documented in this encounter Plan of Treatment Not on file documented as of this encounter Visit Diagnoses Diagnosis Iron deficiency anemia, unspecified iron deficiency anemia type- Primary documented in this encounter Administered Medications Inactive Administered Medications - up to 3 most recent administrations Medication Order MAR Action Action Date Dose Rate Site iron sucrose (VENOFER) 300 mg in sodium chloride 0.9% 250 mL IVPB 300 mg, intravenous, at 176.7 mL/hr, Administer over 90 Minutes, Once, On Sat11/20/22 at 1400, For 1 doseIndications:Iron deficiency anemia, unspecified iron deficiency anemia type New Bag 11/20/2022 1:55 PM CDT 300 mg 176.7 mL/hr documented in this encounter Orders Medications Ordered That Juan ht Not Have Been Administered Count Last Ordered Date First Ordered Date iron sucrose (VENOFER) 300 m g in sodium chloride 0.9% 250 mL IVPB 1 11/20/2022 Nursing Count Last Ordered Date First Orde red Date ONCBCN NURSING COMMUNICATION 5 1 11/20/2022 Appointment Requests Count Last Ordered Date Fi rst Ordered Date ONCBCN INFUSION APPT REQUEST 1 11/20/2022 documented in this encounter Care Teams Compressor Mechanic Bus Relationship Specialty Start Date End Date Eusebio Nagy MD PCP - General Internal Medicine 12/21/20 To Caballero MD [address] [place] [address] Referring Physician Obstetrics and Gynecology 06/09/21 Jacinto Aguilar MD [address] [place] [address] Internal Medicine 11/08/22 documented as of this encounter
--- OUTSIDE RECORDS SUMMARY | 2024-08-05 02:30 | XMS_ITS | Encounter Summary ---
Author Organization [facility] Address [address] [place] [address] Phone Care Team Providers Care Roving Weight Gauger Name Role Phone Eusebio Nagy MD Primary Care Provider [phone] To Caballero MD Unavailable [phone] Jacinto Aguilar MD Unavailable Encounter Details Date Type Department Care Team (Late st Contact Info) Description 11/08/2022 Orders Only 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 Gender Identity Not on file Sexual Orientation Not on file documented as of this encounter Plan of Treatment Not on file documented as of this encounter Visit Diagnoses Diagnosis Iron deficiency anemia, unspecified iron deficiency anemia type- Primary documented in this encounter Orders Appointment Requests Count Last Ordered Date Fi rst Ordered Date ONCBCN INFUSION APPT REQUEST 3 12/05/2022 11/13/2022 documented in this encounter Care Teams Roving Weight Gauger Relationship Specialty Start Date End Date Eusebio Nagy MD PCP - General Internal Medicine 12/21/20 To Caballero MD [address] [place] [address] Referring Physician Obstetrics and Gynecology 06/09/21 Jacinto Aguilar MD [address] [address] Internal Medicine 11/08/22 documented as of this encounter
--- OUTSIDE RECORDS SUMMARY | 2024-08-05 02:30 | XMS_ITS | Encounter Summary ---
Author Organization [facility] Healthcare Address [address] [place] [address] Care Team Providers Care Rod Puller And Coiler Name Role Phone Eusebio Nagy MD Primary Care Provider [phone] To Caballero MD Unavailable [phone] Jacinto Aguilar MD Unavailable Reason for Visit * Reason Comments OP Infusion * Episode Based Medications (Routine) - Closed Specialty Diagnoses / Procedures Referred By Contac t Referred To Contact Diagnoses Iron deficiency anemia, unspecified iron deficiency anemia type Giuseppe Montelongo MD [address] [place] [address] Phone: tel: fax: [facility] Infusion [address] [place] [address] Phone: tel: Referral ID Status Reason Start Date Expiration Date Visits Re quested Visits Authorized [id number] Closed 11/08/2022 12/08/2023 3 3 Encounter Details Date Type Department Care Team (Late st Contact Info) Description 11/13/2022 1:30 PM CDT Infusion [facility] Infusion [address] [place] [address] Iron deficiency anemia, unspecified iron deficiency anemia type (Primary Dx) Social History Tobacco Use Types Packs/Day Years Used Date Smoking Tobacco: Former Cigarettes Q uit: 08/23/2004 Comments No Sex and Gender Information Value Date Recorded Sex Assigned at Not on file Legal Sex Female 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 Vitals stable. IV inserted in left forearm. Venofer given as ordered and charted on OCT. Patient tolerated well. IV removed. AVS printedand reviewed with patient. Patient had no further questions and left in stable condition. documented in this encounter Plan of Treatment [...] mL/hr, Administer over 90 Minutes, Once, On Sat11/13/22 at 1430, For 1 doseIndications:Iron deficiency anemia, unspecified iron deficiency anemia type New Bag 11/13/2022 1:52 PM CDT 300 mg 176.7 mL/hr sodium chloride 0.9% flush 10 mL 10 mL, intravenous, As needed, line care, Starting on Sat11/13/22 at 1351, Flush pre and post IV catheter use.Indications:Iron deficiency anemia, unspecified iron deficiency anemia type Given 11/13/2022 3:29 PM CDT 10 mL documented in this encounter Orders Appointment Requests Count Last Ordered Date Fi rst Ordered Date ONCBCN INFUSION APPT REQUEST 1 11/13/2022 documented in this encounter Care Teams Rod Puller And Coiler Relationship Specialty Start Date End Date Eusebio Nagy MD PCP - General Internal Medicine 12/21/20 To Caballero MD [address] [place] [address] Referring Physician Obstetrics and Gynecology 06/09/21 Jacinto Aguilar MD [address] [address] Internal Medicine 11/08/22 documented as of this encounter
--- OUTSIDE RECORDS SUMMARY | 2024-08-05 02:30 | XMS_ITS | Clinical Summary ---
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 Name Role Phone HODA MCINTYRE, LINDA Unavailable Unavailable TRINY RN, MARGARET Unavailable Unavailable FAVIOLA PT, ANGELA Unavailable Unavailable BALDOMERO LEASING REPRESENTATIVE, ALEXANDRA Unavailable Unavailable QUYNH LEASING REPRESENTATIVE, PABLITO Unavailable Unavailabl e ASHLEY OT, DESIRE RODRIGUEZELLE Unavailable Unavai jeanette CELESTE/HOLLY FOLEY Unavailable Unavail able Payers Payer Name Policy Type Policy Number Effective Date Expira tion Date [facility].NOAUT [id number] Problems Condition Name Condition Details Condition Category Status Onset Date Resolution Date Last Treatment Date Treating Clinician Comments UNSP DISP FX OF 2ND CERVCAL VERT, SUBS FOR FX W ROUTN HEAL Active - 00:00: 00 UNSP DISP FX OF FIRST CERVCAL VERT, SUBS FOR FX W ROUTN HEAL Active 2- 00:00: 00 REPEATED FALLS Active 2- 00:00: 00 ACUTE PAIN DUE TO TRAUMA Active - 00:00: 00 DIZZINESS AND GIDDINESS Active 2- 00:00: 00 CHRONIC OBSTRUCTIVE PULMONARY DISEASE, UNSPECIFIED Active - 00:00: 00 ESSENTIAL (PRIMARY) HYPERTENSION Active - 00:00: 00 CERVICALGIA Active 2- 00:00: 00 GASTRO-ESOPH AGEAL REFLUX DISEASE WITHOUT ESOPHAGITIS Active - 00:00: 00 ANXIETY DISORDER, UNSPECIFIED Active 2- 00:00: 00 MAJOR DEPRESSIVE DISORDER, SINGLE EPISODE, UNSPECIFIED Active 1- 00:00: 00 VITAMIN D DEFICIENCY, UNSPECIFIED Active 1- 00:00: 00 MELENA Active 1- 00:00: 00 DEPENDENCE ON SUPPLEMENTAL OXYGEN Active - 00:00: 00 Allergies, Adverse Reactions, Alerts Allergy Name Allergy Type Status Severity Reaction(s) Onset Date Inactive Date Treating Clinician Comments DULOXETINE Propensity to adverse reactions Active 09-29 16:05: 05 QUINAPRIL Propensity to adverse reactions Active 09-29 16:05: 27 Medications Ordered Medication Name Filled Medication Name Start Date Stop Date Current Medication? Ordering Clinician Indication Dosage Frequency Signature (SIG) Comments Components amitriptyli ne 25 mg tablet 09-29 00:00: 00 Yes [id number] 1 tablet DAILY 1 tablet DAILY (route: oral) Alternate Route: BY MOUTH. Med Classific ation: Central Nervous System Agents Aspirin Low Dose 81 mg tablet,david yed release 09-29 00:00: 00 Yes [id number] 1 tablet DAILY 1 tablet DAILY (route: oral) Alternate Route: BY MOUTH. Med Classific ation: Hematolog ical Agents buspirone 10 mg tablet 09-29 00:00: 00 Yes [id number] 1 tablet 2 TIMES DAILY 1 tablet 2 TIMES DAILY (route: oral) Alternate Route: BY MOUTH. Med Classific ation: Central Nervous System Agents D3 DOTS 50 mcg (2,000 unit) tablet 09-29 00:00: 00 Yes [id number] 1 tablet DAILY 1 tablet DAILY (route: oral) Alternate Route: BY MOUTH. Med Classific ation: Electroly te Balance-N utritiona l Products ferrous sulfate 325 mg (65 mg iron) tablet 09-29 00:00: 00 Yes [id number] 1 tablet DAILY 1 tablet DAILY (route: oral) Alternate Route: BY MOUTH. Med Classific ation: Electroly te Balance-N utritiona l Products hydrochloro thiazide 12.5 mg capsule 09-29 00:00: 00 Yes [id number] 1 capsule DAILY 1 capsule DAILY (route: oral) Alternate Route: BY MOUTH. Med Classific ation: Cardiovas cular Therapy Agents metoprolol succinate ER 100 mg tablet,exte nded release 24 hr 09-29 00:00: 00 Yes [id number] 1 tablet DAILY 1 tablet DAILY (route: oral) Alternate Route: BY MOUTH. Med Classific ation: Cardiovas cular Therapy Agents montelukast 10 mg tablet 09-29 00:00: 00 Yes [id number] 1 tablet BEDTIME 1 tablet BEDTIME (route: oral) Alternate Route: BY MOUTH. Med Classific ation: Respirato ry Therapy Agents pantoprazol e 40 mg tablet,david yed release 09-29 00:00: 00 Yes [id number] 1 tablet BEFORE BREAKFAST 1 tablet BEFORE BREAKFAST (route: oral) Alternate Route: BY MOUTH. Med Classific ation: Gastroint estinal Therapy Agents Percocet 10 mg-325 mg tablet 09-29 00:00: 00 Yes [id number] 1 tablet 2 TIMES DAILY 1 tablet 2 TIMES DAILY (route: oral) Alternate Route: BY MOUTH. Med Classific ation: Analgesic , Anti-infl ammatory or Antipyret ic Senna Plus 8.6 mg-50 mg tablet 09-29 00:00: 00 Yes [id number] 2 tablet 2 TIMES DAILY 2 tablet 2 TIMES DAILY (route: oral) Alternate Route: BY MOUTH. Med Classific ation: Gastroint estinal Therapy Agents trazodone 50 mg tablet 09-29 00:00: 00 Yes [id number] 1 tablet BEDTIME 1 tablet BEDTIME (route: oral) Alternate Route: BY MOUTH. Med Classific ation: Central Nervous System Agents O2 - OXYGEN 10-02 00:00: 00 Yes [id number] 4 Liter O2 - CONTINUOUS 4 Liter O2 - CONTINUOUS (route: Oxygen) Med Classific ation: Medical Oxygen Vital Signs Vital Name Observation Time Observation Value Commen ts Temperature 2020-09-29 13:44:42.000 97.5 [degF] Pulse 2020-09-29 13:45:01.000 79 /min O2 Saturation (%) 2020-09-29 13:45:27.000 99 % Respirations 2020-09-29 13:45:08.000 18 /min Systolic Blood Pressure 2020-09-29 13:49:59.000 128 mm [Hg] Diastolic Blood Pressure 2020-09-29 13:49:59.000 72 mm [Hg] Plan of Treatment Planned Activity Planned Date Details Comments Future Scheduled Test SKILLED NU RSE TO ASSESS, EVALUATE, AND DEVELOP AN INDIVIDUALIZED PLAN OF CARE. AGENCY MAY ACCEPT ORDERS FROM CONSULTING PHYSICIANS DR HODA SAXENA TO OBSERVE/ASSESS RISK FOR FALLS AND INSTRUCT IN FALL PREVENTION, HOME SAFETY, MEDICATION MANAGEMENT, INFECTION PREVENTION, AND NUTRITION MANAGEMENT. SN MAY PERFORM O2 SATURATION LEVEL ON ADMISSION AND PRN FOR SOB EPISODES TO ASSESS PATIENT, WITH NOTIFICATION TO THE PHYSICIAN IF SATURATION IS 90% IN THE ABSENCE OF MORE SPECIFIC PARAMETERS FROM THE PHYSICIAN. AGENCY MAY PERFORM A RESUMPTION OF CARE VISIT FOLLOWING ANY HOSPITAL ADMISSION. ALL DISCIPLINES (EXCEPT [facility]) MAY PROVIDE TELEHEALTH PHONE/REMOTE/VIRTUAL VISITS IN LIEU OF AN IN-PERSON VISIT THAT DOES NOT REQUIRE HANDS ON OR IN PERSON ASSESSMENT WHEN AN IN-PERSON VISIT IS NOT POSSIBLE DUE TO THE PUBLIC HEALTH EMERGENCY RELATED TO THE COVID-19 PANDEMIC. SKILLED NURSE TO INSTRUCT PATIENT / CAREGIVER ON DISEASE PROCESS, SELF MANAGEMENT, SIGNS AND SYMPTOMS TO REPORT TO SN/PHYSICIAN, RELATED TO: [code = SKILLED NURSE TO ASSESS, EVALUATE, AND DEVELOP AN INDIVIDUALIZED PLAN OF CARE. AGENCY MAY ACCEPT ORDERS FROM CONSULTING PHYSICIANS DR HODA SAXENA TO OBSERVE/ASSESS RISK FOR FALLS AND INSTRUCT IN FALL PREVENTION, HOME SAFETY, MEDICATION MANAGEMENT, INFECTION PREVENTION, AND NUTRITION MANAGEMENT. SN MAY PERFORM O2 SATURATION LEVEL ON ADMISSION AND PRN FOR SOB EPISODES TO ASSESS PATIENT, WITH NOTIFICATION TO THE PHYSICIAN IF SATURATION IS 90% IN THE ABSENCE OF MORE SPECIFIC PARAMETERS FROM THE PHYSICIAN. AGENCY MAY PERFORM A RESUMPTION OF CARE VISIT FOLLOWING ANY HOSPITAL ADMISSION. ALL DISCIPLINES (EXCEPT [facility]) MAY PROVIDE TELEHEALTH PHONE/REMOTE/VIRTUAL VISITS IN LIEU OF AN IN-PERSON VISIT THAT DOES NOT REQUIRE HANDS ON OR IN PERSON ASSESSMENT WHEN AN IN-PERSON VISIT IS NOT POSSIBLE DUE TO THE PUBLIC HEALTH EMERGENCY RELATED TO THE COVID-19 PANDEMIC. SKILLED NURSE TO INSTRUCT PATIENT / CAREGIVER ON DISEASE PROCESS, SELF MANAGEMENT, SIGNS AND SYMPTOMS TO REPORT TO SN/PHYSICIAN, RELATED TO:] Future Scheduled Test MEDICATION MANAGEMENT; SKILLED NURSE TO REVIEW MEDICATIONS FOR INTERACTIONS, EFFECTIVENESS OF DRUG THERAPY, AND SIGNS/SYMPTOMS OF ADVERSE REACTIONS. MAY INSTRUCT AND REINFORCE MEDICATION TEACHING RELATED TO THE USE OF MEDICATIONS, DOSAGE, FREQUENCY, PURPOSE, SIDE EFFECTS, AND TO REPORT COMPLICATIONS. [code = MEDICATION MANAGEMENT; SKILLED NURSE TO REVIEW MEDICATIONS FOR INTERACTIONS, EFFECTIVENESS OF DRUG THERAPY, AND SIGNS/SYMPTOMS OF ADVERSE REACTIONS. MAY INSTRUCT AND REINFORCE MEDICATION TEACHING RELATED TO THE USE OF MEDICATIONS, DOSAGE, FREQUENCY, PURPOSE, SIDE EFFECTS, AND TO REPORT COMPLICATIONS.] Future Scheduled Test RISK FOR H OSPITALIZATION; SKILLED NURSE TO INSTRUCT PATIENT/CAREGIVER ON RISK FOR HOSPITALIZATION, TEACH SIGNS AND SYMPTOMS THAT PUT PATIENT AT RISK, WHEN TO NOTIFY NURSE OF COMPLICATIONS/DECLINE, AND WHEN TO CALL 911. SKILLED NURSE TO INSTRUCT PATIENT/CAREGIVER ON: SIGNS AND SYMPTOMS TO BE ON ALERT FOR EARLY INTERVENTION, PRIOR TO NEEDING EMERGENCY SERVICES CALL [facility] NURSE TO KEEP HUMAN RESOURCES ASSISTANT MANAGER SYMPTOM REPORT FOR VISIBLE REFERENCE NOTIFY SKILLED NURSE/PHYSICIAN FOR DECLINE IN STATS WHEN AND HOW TO CALL HOME HEALTH AGENCY FACILITATE PHYSICIAN FOLLOW UP APPOINTMENT IDENTIFY SOCIOECONOMIC CONCERNS AND MAKE APPROPRIATE REFERRAL NEEDED [code = RISK FOR HOSPITALIZATION; SKILLED NURSE TO INSTRUCT PATIENT/CAREGIVER ON RISK FOR HOSPITALIZATION, TEACH SIGNS AND SYMPTOMS THAT PUT PATIENT AT RISK, WHEN TO NOTIFY NURSE OF COMPLICATIONS/DECLINE, AND WHEN TO CALL 911. SKILLED NURSE TO INSTRUCT PATIENT/CAREGIVER ON: SIGNS AND SYMPTOMS TO BE ON ALERT FOR EARLY INTERVENTION, PRIOR TO NEEDING EMERGENCY SERVICES CALL [facility] NURSE TO KEEP HUMAN RESOURCES ASSISTANT MANAGER SYMPTOM REPORT FOR VISIBLE REFERENCE NOTIFY SKILLED NURSE/PHYSICIAN FOR DECLINE IN STATS WHEN AND HOW TO CALL HOME HEALTH AGENCY FACILITATE PHYSICIAN FOLLOW UP APPOINTMENT IDENTIFY SOCIOECONOMIC CONCERNS AND MAKE APPROPRIATE REFERRAL NEEDED] Future Scheduled Test CARDIOVASC ULAR SYSTEM; SKILLED NURSE TO ASSESS AND TEACH RELATED TO ALTERED CARDIOVASCULAR STATUS TO MINIMIZE COMPLICATIONS AND REDUCE HOSPITALIZATION. [code = CARDIOVASCULAR SYSTEM; SKILLED NURSE TO ASSESS AND TEACH RELATED TO ALTERED CARDIOVASCULAR STATUS TO MINIMIZE COMPLICATIONS AND REDUCE HOSPITALIZATION.] Future Scheduled Test HYPERTENSI ON MANAGEMENT; SKILLED NURSE TO ASSESS/TEACH WARNING SIGNS AND SYMPTOMS TO AVOID HOSPITALIZATION. [code = HYPERTENSION MANAGEMENT; SKILLED NURSE TO ASSESS/TEACH WARNING SIGNS AND SYMPTOMS TO AVOID HOSPITALIZATION.] Future Scheduled Test RESPIRATOR Y SYSTEM MANAGEMENT; SKILLED NURSE TO ASSESS AND TEACH RELATED TO ALTERED RESPIRATORY STATUS TO MINIMIZE COMPLICATIONS AND REDUCE HOSPITALIZATION. [code = RESPIRATORY SYSTEM MANAGEMENT; SKILLED NURSE TO ASSESS AND TEACH RELATED TO ALTERED RESPIRATORY STATUS TO MINIMIZE COMPLICATIONS AND REDUCE HOSPITALIZATION.] Future Scheduled Test COPD MANAG EMENT; SKILLED NURSE TO ASSESS AND TEACH SIGNS/SYMPTOMS OF COPD EXACERBATION AND PROVIDE EARLY INTERVENTIONS TO MINIMIZE RISK OF HOSPITALIZATION. SKILLED NURSE TO INSTRUCT ON SELF-CARE MANAGEMENT INCLUDING BREATHING TECHNIQUES, AIRWAY CLEARANCE, AND PROPER USE OF COPD MEDICATIONS. ASSESS PATIENT/CAREGIVER ABILITY TO MONITOR AND RECORD VITALS SIGNS INCLUDING PULSE OXIMETRY AND BLOOD PRESSURE. PULSE OXIMETER AND BP MONITOR TO BE PROVIDED IF NEEDED [code = COPD MANAGEMENT; SKILLED NURSE TO ASSESS AND TEACH SIGNS/SYMPTOMS OF COPD EXACERBATION AND PROVIDE EARLY INTERVENTIONS TO MINIMIZE RISK OF HOSPITALIZATION. SKILLED NURSE TO INSTRUCT ON SELF-CARE MANAGEMENT INCLUDING BREATHING TECHNIQUES, AIRWAY CLEARANCE, AND PROPER USE OF COPD MEDICATIONS. ASSESS PATIENT/CAREGIVER ABILITY TO MONITOR AND RECORD VITALS SIGNS INCLUDING PULSE OXIMETRY AND BLOOD PRESSURE. PULSE OXIMETER AND BP MONITOR TO BE PROVIDED IF NEEDED ] Future Scheduled Test OXYGEN THE RAPY; SKILLED NURSE TO INSTRUCT ON OXYGEN MANAGEMENT INCLUDING: ADMINISTRATION AT 4 L/MIN VIA NC CONTINUOUS FOR COPD, CARE OF EQUIPMENT AND SAFETY. [code = OXYGEN THERAPY; SKILLED NURSE TO INSTRUCT ON OXYGEN MANAGEMENT INCLUDING: ADMINISTRATION AT 4 L/MIN VIA NC CONTINUOUS FOR COPD, CARE OF EQUIPMENT AND SAFETY.] Future Scheduled Test PAIN MANAG EMENT; SKILLED NURSE TO OBSERVE, ASSESS, AND PROVIDE EDUCATION ON PAIN MANAGEMENT TECHNIQUES. [code = PAIN MANAGEMENT; SKILLED NURSE TO OBSERVE, ASSESS, AND PROVIDE EDUCATION ON PAIN MANAGEMENT TECHNIQUES.] Future Scheduled Test FALL REDUC TION MANAGEMENT; NURSING TO PROVIDE SKILLED ASSESSMENT, EDUCATION, AND INTERVENTION TO IDENTIFY FALL RISK FACTORS SUCH MEDICATIONS THAT MAY CAUSE DIZZINESS, CHRONIC DISEASES, PSYCHOLOGICAL FACTORS, AND EMPOWER/EDUCATE PATIENT/CAREGIVER TO MINIMIZE FALL RISK. [code = FALL REDUCTION MANAGEMENT; NURSING TO PROVIDE SKILLED ASSESSMENT, EDUCATION, AND INTERVENTION TO IDENTIFY FALL RISK FACTORS SUCH MEDICATIONS THAT MAY CAUSE DIZZINESS, CHRONIC DISEASES, PSYCHOLOGICAL FACTORS, AND EMPOWER/EDUCATE PATIENT/CAREGIVER TO MINIMIZE FALL RISK.] Future Scheduled Test PHYSICAL T HERAPIST TO EVALUATE FOR STRENGTH AND ENDURANCE [code = PHYSICAL THERAPIST TO EVALUATE FOR STRENGTH AND ENDURANCE] Future Scheduled Test OCCUPATION AL THERAPIST TO EVALUATE FOR ADL SUPPORT AND TEACHING [code = OCCUPATIONAL THERAPIST TO EVALUATE FOR ADL SUPPORT AND TEACHING] Goal 2020-10-13 Patient Goal - TO REGAIN STR ENGTH Goal Provider Goal - A PLAN OF CARE WILL BE ESTABLISHED THAT MEETS THE PATIENT'S NURSING NEEDS PATIENT WILL DEMONSTRATE OXYGEN SATURATION WITH NORMAL LIMITS OR TO PATIENT'S OPTIMAL LEVEL ESTABLISHED BY THE PHYSICIAN THROUGHOUT CARE Goal Provider Goal - PATIENT/CAREGIVER TO VERBALIZE, AND CONSISTENTLY DEMONSTRATE EFFECTIVE, SAFE MANAGEMENT OF MEDICATION INCLUDING KNOWLEDGE OF EFFECTIVENESS, POTENTIAL SIDE EFFECTS AND DRUG REACTIONS AND WHEN TO CONTACT THE APPROPRIATE CARE PROVIDER. PATIENT/CAREGIVER WILL BE ABLE TO VERBALIZE UNDERSTANDING OF MEDICATION REGIMEN AND ACCURATELY TAKE MEDICATIONS PRESCRIBED WITHOUT ADVERSE EFFECTS BY 10/17/20 Goal Provider Goal - PATIENT/CAREGIVER WILL VERBALIZE UNDERSTANDING OF SIGNS AND SYMPTOMS THAT PUT THE PATIENT AT RISK FOR HOSPITALIZATION, WHEN TO NOTIFY SN OF COMPLICATIONS/DECLINE AND WHEN TO CALL 911. Goal Provider Goal - PATIENT / CAREGIVER WILL VERBALIZE/DEMONSTRATE UNDERSTANDING OF MEASURES TO MANAGE ALTERED CARDIOVASCULAR STATUS BY 10/17/20 Goal Provider Goal - PATIENT / CAREGIVER WILL VERBALIZE/DEMONSTRATE AN ABILITY TO ADHERE TO SELF-MANAGEMENT OF HTN TO MINIMIZE COMPLICATIONS AND AVOID HOSPITALIZATION BY END OF EPISODE. Goal Provider Goal - PATIENT / CAREGIVER WILL VERBALIZE/DEMONSTRATE UNDERSTANDING OF MEASURES TO MANAGE ALTERED RESPIRATORY STATUS BY END OF EPISODE. Goal Provider Goal - PATIENT / CAREGIVER WILL VERBALIZE/DEMONSTRATE AN ABILITY TO ADHERE TO SELF-MANAGEMENT OF COPD TO MINIMIZE COMPLICATIONS AND AVOID HOSPITALIZATION BY END OF EPISODE. Goal Provider Goal - PATIENT/CAREGIVER WILL VERBALIZE/DEMONSTRATE UNDERSTANDING OF CARE AND MANAGEMENT OF OXYGEN THERAPY BY END OF EPISODE Goal Provider Goal - PATIENT / CAREGIVER WILL VERBALIZE / DEMONSTRATE UNDERSTANDING OF PAIN CONTROL MEASURES BY 10/17/20 Goal Provider Goal - PATIENT/CAREGIVER ABLE TO IDENTIFY FALL RISK FACTORS AND IMPLEMENT STRATEGIES TO MINIMIZE FALL RISK. PATIENT/CAREGIVER WILL VERBALIZE/DEMONSTRATE AN ABILITY TO ADHERE TO FALL REDUCTION SELF MANAGEMENT AND LIFE-STYLE CHANGES AT DISCHARGE. PERSONAL GOAL(S) STATED BY PATIENT/CAREGIVER WILL BE MET BY 10/17/20 Goal Provider Goal - Goal Provider Goal - Reason for Visit MINIMUM ASSIST WITH TRANSFER/AMBULATION/ADLS Encounters Start Date/Time End Date/Time Encounter Type Admission Type Attending [facility] Care Department Encounter ID Discharge Date Discharge Status Discharge Condition Discharge Reason Percent Goals Met 2020-09-29 00:00:00 2020-10-13 00:00:00 Outpatient NEW ADMISSION [facility] AGOST[facility] [id number] 2020-10-13 00:00:00 DISCHARGE TO HOME OR SELF CARE MINIMUM ASSIST WITH TRANSFER/A MBULATION/ ADLS HH ONLY - PER CLIENT REQUEST 40.00
--- OUTSIDE RECORDS SUMMARY | 2024-08-05 02:30 | XMS_ITS | Encounter Summary ---
Author Organization [facility] Healthcare Address [address] [place] [address] Care Team Providers Care Inset Cutter Name Role Phone Eusebio Nagy MD Primary Care Provider [phone] To Caballero MD Unavailable [phone] Jacinto Aguilar MD Unavailable Reason for Visit * Reason Comments OP Infusion * Episode Based Medications (Routine) - Closed Specialty Diagnoses / Procedures Referred By Contac t Referred To Contact Diagnoses Iron deficiency anemia, unspecified iron deficiency anemia type Giuseppe Montelongo MD [address] [place] [address] Phone: tel: fax: [facility] Infusion [address] [place] [address] Phone: tel: Referral ID Status Reason Start Date Expiration Date Visits Re quested Visits Authorized [id number] Closed 11/08/2022 12/08/2023 3 3 Encounter Details Date Type Department Care Team (Late st Contact Info) Description 12/05/2022 2:00 PM CDT Infusion [facility] Infusion [address] [place] [id number] Iron deficiency anemia, unspecified iron deficiency anemia type (Primary Dx) Social History Tobacco Use Types Packs/Day Years Used Date Smoking Tobacco: Former Cigarettes Q uit: 08/23/2004 Comments No Sex and Gender Information Value Date Recorded Sex Assigned at Not on file 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 Vitals were taken and stable. IV was placed and showed brisk blood return and easy flush. Venofer was given per order and tolerated well by patient. IV was removed. AVS was printed and presented to patient who was discharged in stable condition. documented in this encounter Miscellaneous Notes * Addendum Note - Jamie Malcolm RN - 12/05/2022 2:00 PM CDTAddended by: JAMIE MALCOLM on: 12/05/2022 04:32 PM Modules accepted: Orders documented in this encounter Plan of Treatment [...] mL/hr, Administer over 90 Minutes, Once, On Sat12/05/22 at 1500, For 1 doseIndications:Iron deficiency anemia, unspecified iron deficiency anemia type New Bag 12/05/2022 2:37 PM CDT 300 mg 176.7 mL/hr documented in this encounter Orders Medications Ordered That Juan ht Not Have Been Administered Count Last Ordered Date First Ordered Date iron sucrose (VENOFER) 300 m g in sodium chloride 0.9% 250 mL IVPB 1 12/05/2022 sodium chloride 0.9% flush 10 mL 1 12/06/19 Appointment Requests Count Last Ordered Date Fi rst Ordered Date ONCBCN INFUSION APPT REQUEST 1 12/05/2022 documented in this encounter Care Teams Inset Cutter Relationship Specialty Start Date End Date Eusebio Nagy MD PCP - General Internal Medicine 12/21/20 To Caballero MD [address] [place] [address] Referring Physician Obstetrics and Gynecology 06/09/21 Jacinto Aguilar MD [address] [address] Internal Medicine 11/08/22 documented as of this encounter
--- OUTSIDE RECORDS SUMMARY | 2024-08-05 02:30 | XMS_ITS | Clinical Summary ---
Author Organization [place] [id number] [facility] Address [address] [place] [address] Care Team Providers Care Lithographer Helper Name Role Phone Eusebio Nagy MD Primary Care Provider [phone] To Caballero MD Unavailable [phone] Jacinto Aguilar MD Unavailable Allergies Active [...] 08/29/2020 Assessment & Plan (08/29/2020 12:37 PM CLIENT SUPPORT ASSOCIATE): Cont daily replacement GERD (gastroesophageal reflux disease) Assessment & Plan (08/27/2020 7:30 PM CLIENT SUPPORT ASSOCIATE): Continue??Home Pantoprazole 40mg Daily Chronic obstructive pulmonar y disease with acute exacerbation 08/23/2020 Assessment & Plan (08/29/2020 12:35 PM CLIENT SUPPORT ASSOCIATE): Continue Home??Monteleukast 10mg Daily. Cont O2- baseline 3 L, wean as able Start ICA/LABA, LAMA HTN (hypertension) 08/23/2020 Assessment & Plan (08/27/2020 7:31 PM CLIENT SUPPORT ASSOCIATE): HCTZ 12.5mg Oral Daily, Metoprolol Succinate 100mg Daily.?? Anxiety 02/15/2020 Chronic congestive heart failure (CMS/HCC) 02/14 Depression 02/15/2020 Pulmonary hypertension, moderate to severe 02/14 Sleep apnea 02/15/2020 Resolved Problems Problem Noted Date Diagnosed Date Resolved Date Acute on chronic respiratory failure with hypoxia and hypercapnia ([facility]/HCC) 08/27/20202020 Assessment & Plan (08/29/2020 12:36 PM CLIENT SUPPORT ASSOCIATE): Presented w/hypercapnic respiratory failure likely to COPD [...] 021 Assessment & Plan (08/27/2020 7:23 PM CLIENT SUPPORT ASSOCIATE): Likely toxic-metabolic in etiology in the setting of above respiratory failure/hypercapnia. Baseline she is A&O x3. 08/23?Ammonia 52H, TSH 0.26L, T4 1.18, Lactate 0.5 -??hCT NAIA - UDS with benzos and oxycodone. -??Continue monitor Iron deficiency anemia 08/27/202009/13 Assessment & Plan (08/29/2020 12:37 PM CLIENT SUPPORT ASSOCIATE): Presented with Hgb in 8s without explanation, MCV high 70s, iron profile 13, ferritin 28, Tsat 4%, now s/p 1U PRBCs and 1 x Ferrlecit. - Consider age-appropriate screening and iron supplementation on outpatient basis - started fe sulf bid 08/28 Acute hypercapnic respirator y failure ([facility]) 08/23/2020 09/13/2020 Assessment & Plan (08/29/2020 12:33 PM CLIENT SUPPORT ASSOCIATE): 2/2 copd exacerbation Sp antibiotics and 5 days of prednisone Wean O2 as able Encephalopathy acute 08/23/2020 021 Hyperlipidemia 02/15/2020 09/13/2020 Disorder of lung 05/20/2015 09/13/2020 Thoracic spine fracture ([facility]) 09/13/2020 Overview (08/23/2020): 3 months ago Assessment & Plan (08/29/2020 12:36 PM CLIENT SUPPORT ASSOCIATE): Suspect secondary to fall 3 months ago [...] 05/08/2013 Influenza, Unspecified 08/14/2022,05/05/2020 Pneumococcal, Unspecified 08/05/2016 Medical History Medical History Date Comments COPD (chronic obstructive pulmonary disease) (HC C) Hypertension Thoracic spine fracture ([facility]) (HCC) 3 months ago Iron deficiency anemia Family History Medical History Relation Name Comments No Known Problems Father No Known Problems Mother Relation Name Status Comments Father Mother Social History Tobacco Use Types Packs/Day Years Used Date Smoking Tobacco: Former Cigarettes Q uit: 08/23/2004 Comments No Sex and Gender Information Value Date Recorded Sex Assigned at Not on file Legal Sex Female 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 Gender Identity Not on file Sexual Orientation Not on file Obstetrics History Last Filed Vital Signs Vital Sign Reading [...] 11/08/2022 2:03 PM CDT Plan of Treatment Health Maintenance Due Date Last Done Comments Depression Screening 1941 Osteoporosis Screening-Bone Density Scan 1941 Pneumococcal vaccine 65+ (1 of 2 - PCV) 1947 08/05/2016 DTaP/Tdap/Td Vaccine (1 - Tdap) 1952 Hepatitis B Screening 1959 Zoster Vaccine (1 of 2) 1991 Well Visit 65+ 2006 Fall Risk Assessment 12/06/2023 12/05/2022, 09/26/19 22 Influenza Vaccine (#1) 2024 3, 05/05/2020, 06/05/2019, Additional history exists Insurance [employer] [facility] Address: [address] [address] [place] [address] [employer] [facility] Address: [address] [address] [place] [address] [facility] CHOICE [employer] [facility] H[facility]/PPO Address: [address] [address] [place] [address] [facility] MDCR HMO REF [facility] Address: [address] [address] [place] [address] [employer] [facility] MEDIC[facility] Address: [address] [address] [place] [address] Advance Directives For more information, please contact: [phone] * Full Code (Latest Code Status on File) Date Activated Date Inactivated Comments 09/23/2021 11:07 PM 2021 5:10 PM * Full Code Date Activated Date Inactivated Comments 09/11/2020 2:58 AM 09/16/2020 7:36 PM * Full Code Date Activated Date Inactivated Comments 08/23/2020 9:06 PM 08/30/2020 10:29 PM Care Teams Lithographer Helper Relationship Specialty Start Date End Date Eusebio Nagy MD PCP - General Internal Medicine 12/21/20 To Caballero MD [address] [facility] [place] [address] Referring Physician Obstetrics and Gynecology 06/09/21 Jacinto Aguilar MD [address] [facility] [address] [place] [address] Internal Medicine 11/08/22
--- OUTSIDE RECORDS SUMMARY | 2024-08-05 02:31 | XMS_ITS | Encounter Summary ---
Author Organization [facility] Healthcare Address [address] [place] [address] Care Team Providers Care Rn Ortho Name Role Phone Eusebio Nagy MD Primary Care Provider + [phone] To Caballero MD Unavailable [phone] Encounter Details Date Type Department Care Team (Late st Contact Info) Description 11/07/2022 Telephone [facility] [address] [place] [id number] Jose Ramon Jaramillo RN Social History Tobacco Use Types Packs/Day Years Used Date Smoking Tobacco: Former Cigarettes Q uit: 08/23/2004 Comments No Sex and Gender Information Value Date Recorded Sex Assigned at Not on file 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 She stated she wanted directions so she could drive her mother to her appointment for an iron infusion tomorrow. Patient was given directions to the clinic but was also informed that at this time her mother had no active iron infusion orders in place. She did have an appointment with Dr. Montelongo for the scheduled timeand was told she should bring her mother to this appointment but not expect an iron infusion until orders had been placed. Patient confirmed understanding. documented in this encounter Plan of Treatment Not on file documented as of this encounter Visit Diagnoses Not on filedocumented in this encounter Care Teams Rn Ortho Relationship Specialty Start Date End Date Eusebio Nagy MD PCP - General Internal Medicine 12/21/20 To Caballero MD [address] [place] [address] Referring Physician Obstetrics and Gynecology 06/09/21 documented as of this encounter
--- OUTSIDE RECORDS SUMMARY | 2024-08-05 02:31 | XMS_ITS | Encounter Summary ---
Author Organization [facility] Address [address] [place] [address] Phone Care Team Providers Care On Site Nurse Name Role Phone Eusebio Nagy MD Primary Care Provider [phone] To Caballero MD Unavailable [phone] Jacinto Aguilar MD Unavailable Reason for Visit * Reason Comments Consult IRON DEF ANEMIA * Consultation (Routine) - Closed Specialty Diagnoses / Procedures Referred By Contac t Referred To Contact Oncology Diagnoses Iron deficiency anemia, unspecified iron deficiency anemia type Jacinto Aguilar MD [address] [facility] [place] [address] [place] [address] Phone: tel: fax: [facility] [address] [place] [address] [facility] [address] [address] Phone: tel: fax: Referral ID Status Reason Start Date Expiration Date V isits Requested Visits Authorized [id number] Closed Specialty Services Required 10/17/2022 11/16/2023 99 99 Encounter Details Date Type Department Care Team (Late st Contact Info) Description 11/08/2022 2:30 PM CDT Office Visit [facility] [address] [place] [address] [address] Giuseppe Montelongo MD [address] [place] [address] [place] [id number] Iron deficiency anemia, unspecified iron deficiency anemia type (Primary Dx) Social History Tobacco Use Types Packs/Day Years Used Date Smoking Tobacco: Former Cigarettes Q uit: 08/23/2004 Comments No Sex and Gender Information Value Date Recorded Sex Assigned at Not on file 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 Gender Identity Not on file Sexual Orientation Not on file documented as of this encounter Last Filed Vital Signs Vital Sign Reading Time Taken Comments Blood Pressure 135/69 11/08/2022 2:03 PM CDT Pulse 78 11/08/2022 2:03 PM CDT Temperature 36.3 ??C (97.3 ??F) 11/08/2022 2:03 PM CD T Respiratory Rate 20 11/08/2022 2:0 3 PM CDT Oxygen Saturation 90% 11/08/2022 2:03 PM CDT Inhaled Oxygen Concentration - - Weight 57.5 kg (126 lb 12.8 oz) 11/08/2022 2:03 PM CDT Height 152.4 cm (5') 11/08/2022 2:03 PM CDT Body Mass Index 24.76 11/08/2022 2:03 PM CDT documented in this encounter Progress Notes * Giuseppe Montelongo MD - 11/08/2022 2:30 PM CDT Hematology/Oncology Consult Visit Date: 11/08/2022 Primary Care Physician:Eusebio Nagy MD Requesting Provider: MD Phoebe Reyes 82 y.o. female Chief Complaint: The patient was referred from my opinion and recommendations regarding further evaluation and management of her AVA. HPI: 11/08/2022--(initial consultation). The patient is an 82-year-old female who was referred to me by her primary care team for my opinion recommendations regarding her iron-deficiency anemia. The patient has had anemia documented as far back as at least 08/23/2020 according to the EMR. Her hemoglobin has been as low as 6.9 grams/deciliter. August 24, 2020 her iron panel revealed: Transferrin saturation 4% TIBC upper limits of normal 363 Iron only 13 mcg/dL. There was no ferritin available with that measurement. At that time her hemoglobin was 6.9 with an MCV of 77 She was given 1 unit of packed red blood cells then. She was admitted at that time for hypercapnic respiratory failure She was admitted to [facility] from 09/23/2021 through 2021 complaining of back pain dueto L-2 compression fracture following a fall Today, 11/08/2022, her hemoglobin is 10.3 with hematocrit 33. The MCV is normal. Today also iron studies collected revealed profound iron-deficiency with: Ferritin = 9 Serum iron = 25 TIBC 417 Transferrin saturation 6% Past Medical History: Diagnosis Date COPD (chronic obstructive pulmonary disease) (HCC) Hypertension Iron deficiency anemia Thoracic spine fracture (CMS/HCC) (HCC) 3 months ago History reviewed. No pertinent surgical history. Prior to Admission medications Medication Sig Start Date End Date Taking? Authorizing Provider acetaminophen 500 mg capsule Take 2 capsules (1,000 mg total) by mouth every 6 (six) hours 09/27/21 Yes Yael Momin NP Advair Diskus 250-50 mcg/dose diskus inhaler 08/11/21 Yes ProviderHerb MD HYDROcodone-acetaminophen (NORCO) 7.5-325 mg per tablet Take 1 tablet by mouth every 6 (six) hours as needed 11/09/21 Yes Herb Shah MD metoprolol XL (TOPROL-XL) 100 mg 24 hr tablet 10/05/21 Yes Herb Shah MD pantoprazole DR (PROTONIX) 40 mg EC tablet Take 1 tablet (40 mg total) by mouth daily Yes ProviderHerb MD tiotropium bromide (SPIRIVA RESPIMAT) 2.5 mcg/actuation inhaler Inhale 2 puffs daily Yes Herb Shah MD albuterol HFA (PROVENTIL HFA,VENTOLIN HFA,PROAIR HFA) 90 mcg/actuation inhaler Inhale 2 puffs every4 (four) hours as needed for wheezing 08/30/20 08/30/21 Daniela Sarabia MD hydroCHLOROthiazide (HYDRODIURIL) 12.5 mg tablet Take 1 tablet (12.5 mg total) by mouth daily 08/30/20 08/30/21 Daniela Sarabia MD Allergies Allergen Reactions Hydroxychloroquine Rash Quinapril Rash Duloxetine Cough Social History Tobacco Use Smoking status: Former Types: Cigarettes Quit date: 08/23/2004 Years since quittin.2 Smokeless tobacco: None Substance and Sexual Activity Drug use: None Sexual activity: None Alcohol Use: Not on file Family History Problem Relation Age of Onset No Known Problems Mother No Known Problems Father Review of Systems: Review of Systems Constitutional: Positive for fatigue. Negative for appetite change, chills, diaphoresis, fever and unexpected weight change. HENT: Negative for hearing loss, lump/mass, mouth sores, nosebleeds, sore throat, tinnitus, troubleswallowing and voice change. Eyes: Negative for eye problems and icterus. Respiratory: Negative for chest tightness, cough, hemoptysis, shortness of breath and wheezing. Cardiovascular: Negative for chest pain, leg swelling and palpitations. Gastrointestinal: Negative for abdominal distention, abdominal pain, blood in stool, constipation, diarrhea, nausea, rectal pain and vomiting. Endocrine: Negative for hot flashes. Genitourinary: Negative for bladder incontinence, difficulty urinating, dyspareunia, dysuria, frequency, hematuria and nocturia. Musculoskeletal: Negative for arthralgias, back pain, flank pain, gait problem, myalgias, neck painand neck stiffness. Skin: Negative for itching, rash and wound. Neurological: Negative for dizziness, extremity weakness, gait problem, headaches, light-headedness, numbness, seizures and speech difficulty. Hematological: Negative for adenopathy. Does not bruise/bleed easily. Psychiatric/Behavioral: Negative for confusion, decreased concentration, depression, sleep disturbance and suicidal ideas. The patient is not nervous/anxious. Objective Vitals: Vitals BP 135/69 (BP Location: Right arm) Pulse 78 Temp 36.3 ??C (97.3 ??F) (Skin) Resp 20 Ht 152.4 cm (5') Wt 57.5 kg (126 lb 12.8 oz) SpO2 90% BMI 24.76 kg/m?? Physical Exam: Physical Exam Vitals reviewed. Constitutional: General: She is not in acute distress. Appearance: She is well-developed. She is not diaphoretic. HENT: Head: Normocephalic and atraumatic. Right Ear: External ear normal. Left Ear: External ear normal. Nose: Nose normal. Eyes: General: No scleral icterus. Conjunctiva/sclera: Conjunctivae normal. Pupils: Pupils are equal, round, and reactive to light. Neck: Thyroid: No thyromegaly. Vascular: No JVD. Trachea: No tracheal deviation. Cardiovascular: Rate and Rhythm: Normal rate and regular rhythm. Heart sounds: Normal heart sounds. No murmur heard. No friction rub. No gallop. Pulmonary: Effort: Pulmonary effort is normal. No respiratory distress. Breath sounds: Normal breath sounds. No wheezing or rales. Chest: Chest wall: No tenderness. Abdominal: General: Bowel sounds are normal. There is no distension. Palpations: Abdomen is soft. There is no mass. Tenderness: There is no abdominal tenderness. There is no guarding. Musculoskeletal: General: Normal range of motion. Cervical back: Normal range of motion and neck supple. Lymphadenopathy: Cervical: No cervical adenopathy. Skin: General: Skin is warm and dry. Coloration: Skin is not pale. Findings: No erythema or rash. Neurological: Mental Status: She is alert and oriented to person, place, and time. Cranial Nerves: No cranial nerve deficit. Sensory: No sensory deficit. Motor: No abnormal muscle tone. Coordination: Coordination normal. Deep Tendon Reflexes: Reflexes normal. Psychiatric: Behavior: Behavior normal. Thought Content: Thought content normal. Judgment: Judgment normal. Lab/Radiology/Diagnostic Review: Recent Results (from the past 336 hour(s)) CBC with auto differential Collection Time: 11/08/22 1:40 PM Result Value Ref Range WBC 5.8 3.8 - 9.9 K/cumm Hgb 10.3 (L) 11.9 - 15.5 g/dL Hct 32.6 (L) 35.6 - 45.5 % Plt 233 150 - 400 K/cumm MPV 8.5 (L) 9.1 - 12.3 fL RBC 3.64 (L) 3.90 - 5.20 M/cumm MCV 89.6 81.3 - 96.4 fL MCH 28.3 27.1 - 33.3 pg MCHC 31.6 (L) 32.3 - 35.7 g/dL RDW CV 12.5 11.1 - 14.9 % RDW SD 41.6 35.7 - 48.1 fL NRBC abs Not Measured 0.00 - 0.01 K/cumm Differential, auto Collection Time: 11/08/22 1:40 PM Result Value Ref Range Neutrophil abs 3.1 1.7 - 6.5 K/cumm Imm gran abs 0.0 0.0 - 0.1 K/cumm Lymphocyte abs 2.0 0.8 - 3.3 K/cumm Monocyte abs 0.7 0.2 - 0.8 K/cumm Eosinophil abs 0.1 0.0 - 0.5 K/cumm Basophil abs 0.0 0.0 - 0.1 K/cumm Neutrophil pct 52.5 % Imm gran pct 0.2 % Lymphocyte pct 33.9 % Monocyte pct 11.6 % Eosinophil pct 1.6 % Basophil pct 0.2 % No results found. Patient Active Problem List Diagnosis Date Noted Diagnosis unknown 09/23/2021 Abnormal gait 12/28/2020 Impairment of balance 12/28/2020 Weakness 12/28/2020 Type III fracture of odontoid process, with routine healing, subsequent encounter 12/28/2020 Lumbar compression fracture, closed, initial encounter ([facility]) 12/28/2020 Chronic respiratory failure ([facility]) 11/04/2020 At risk for venous thromboembolism (VTE) 09/16/2020 Syncope 09/13/2020 Closed odontoid fracture with type III morphology ([facility]) 09/11/2020 Acute pain due to trauma 09/11/2020 Vitamin D deficiency 08/29/2020 GERD (gastroesophageal reflux disease) 08/27/2020 Chronic obstructive pulmonary disease with acute exacerbation ([facility]) 08/23/2020 HTN (hypertension) 08/23/2020 Anxiety 02/15/2020 Chronic congestive heart failure (CMS/HCC) (HCC) 02/15/2020 Depression 02/15/2020 Pulmonary hypertension, moderate to severe ([facility]) 02/15/2020 Sleep apnea 02/15/2020 Assessment: This patient appears to have recurrent iron-deficiency anemia. Certainly today on her initial oncology/hematology consultation she does have iron-deficiency anemia. She is been having falling episodes which almost certainly is related to her anemia in some degree. I can not find any documentation that she is had each ear: To be ever but it may have been done at an outside hospital for which we do not have direct access. Plan: I will start her next week on an iron infusion with Venofer every week for 3 weeks. We will reach out to her PCP to see if they have records of EGD or colonoscopy in his patient. If so we will ask on the fax us those reports. I will see her after she is had her Venofer infusions to see if we get an excellent response as expected with regards her hemoglobin and hematocrit. Giuseppe Montelongo MD 11/08/2022 documented in this encounter Plan of Treatment Not on file documented as of this encounter Results * (ABNORMAL) Iron profile w/ IBC (11/08/2022 1:40 PM CDT) Iron 25(L) 35 - 145 mcg/dL [facility] ([place]) TIBC 417(H) 250 - 400 mcg/dL [facility] ([place]) Transferrin saturation 6(L) 20 - 50 % [facility] ([place]) Blood 11/08/2022 1:40 PM CDT 11/08/2022 2:30 PM CDT us Giuseppe Montelongo MD LAB BLOOD ORDERABLES Final Re sult [facility] ([place]) [address] [facility] [place] [address] * (ABNORMAL) Ferritin (11/08/2022 1:40 PM CDT) Ferritin 9(L) 15 - 150 ng/mL [facility] ([place]) Blood 11/08/2022 1:40 PM CDT 11/08/2022 2:30 PM CDT us Giuseppe Montelongo MD LAB BLOOD ORDERABLES Final Re sult [facility] ([place]) [address] [facility] [place] [address] documented in this encounter Visit Diagnoses Diagnosis Iron deficiency anemia, unspecified iron deficiency anemia type- Primary documented in this encounter Orders Outpatient Referral Count Last Ordered Date Fir st Ordered Date AMB REFERRAL TO ONCOLOGY 1 11/08/2022 documented in this encounter Care Teams On Site Nurse Relationship Specialty Start Date End Date Eusebio Nagy MD PCP - General Internal Medicine 12/21/20 To Caballero MD [address] [place], [place] [id number] Referring Physician Obstetrics and Gynecology 06/09/21 Jacinto Aguilar MD [address] [address] Internal Medicine 11/08/22 documented as of this encounter
--- OUTSIDE RECORDS SUMMARY | 2024-08-05 02:31 | XMS_ITS | Encounter Summary ---
Author Organization [facility] Address [address] [facility] [address] [place] [address] Care Team Providers Care Psychiatry Resident Name Role Phone Eusebio Nagy MD Primary Care Provider [phone] Reason for Visit * Reason Onset Date Comments Med Question 01/05/2021 Encounter Details Date Type Department Care Team (Late st Contact Info) Description 01/05/2021 Telephone [facility] [id number] [address] [place] [address] [address] Med Question Social History Tobacco Use Types Packs/Day Years Used Date Smoking Tobacco: Former Cigarettes Q uit: 08/23/2004 Comments No Sex and Gender Information Value Date Recorded Sex Assigned at Not on file 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 * Telephone Encounter - Bere Jacinto PA - 01/06/2021 10:50 AM CDT Please inform patient that gabapentin is to help with nerve pain associated with her fracture. Thisis not a sleeping pill, although it does have side effects to make people lethargic or more sleepy. * Telephone Encounter - Azalia Schwartz - 01/05/2021 3:04 PM CDT Pt states Gabapentin isn't helping with their sleep and is requesting either a different medicationin place of this medication, or another recommendation. Phone # for patient is [phone]. documented in this encounter Plan of Treatment Not on file documented as of this encounter Visit Diagnoses Not on filedocumented in this encounter Care Teams Psychiatry Resident Relationship Specialty Start Date End Date Eusebio Nagy MD PCP - General Internal Medicine 12/21/20 documented as of this encounter
--- OUTSIDE RECORDS SUMMARY | 2024-08-05 02:31 | XMS_ITS | Encounter Summary ---
Author Organization [facility] Address [address] [facility] [address] [place] [address] Care Team Providers Care Eyeglass Lens Generator Name Role Phone Eusebio Nagy MD Primary Care Provider [phone] Reason for Visit * Diagnostic Imaging (Routine) - Closed Specialty Diagnoses / Procedures Referred By Contac t Referred To Contact Diagnoses Type III fracture of odontoid process, with routine healing, subsequent encounter Procedures XR Spine Cervical 2 or 3 [place] [id number] [place] [address] Phone: tel: fax: Referral ID Status Reason Start Date Expiration Date Visits Re quested Visits Authorized [id number] Closed 12/28/2020 01/27/2022 1 1 Encounter Details Date Type Department Care Team (Latest Contact Info) Description 12/28/2020 11:29 AM CDT - 12/28/2020 11:59 PM CDT Hospital Encounter [facility] [address] [address] Discharge Disposition: Discharge to home or self care Social History Tobacco Use Types Packs/Day Years Used Date Smoking Tobacco: Former Cigarettes Q uit: 08/23/2004 Comments No Sex and Gender Information Value Date Recorded Sex Assigned at Not on file 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 Gender Identity Not on file Sexual Orientation Not on file documented as of this encounter Medications at Time of Discharge albuterol HFA (PROVENTIL HFA,VENTOLIN HFA,PROAIR HFA) 90 mcg/actuation inhaler Inhale 2 puffs every 4 (four) hours as needed for wheezing 1 Inhaler 08/30/2020 hydroCHLOROthiazi de (HYDRODIURIL) 12.5 mg tablet Take 1 tablet (12.5 mg total) by mouth daily 30 tablet 08/30/2020 tiotropium bromide (SPIRIVA RESPIMAT) 2.5 mcg/actuation inhaler Inhale 2 puffs daily ferrous sulfate 325 mg (65 mg of elemental iron) tabletIndications :Iron Deficiency Anemia Take 1 tablet (325 mg total) by mouth 2 (two) times a day with meals 60 tablet 08/30/2020 2 acetaminophen (TYLENOL) 325 mg tablet Take 2 tablets (650 mg total) by mouth every 4 (four) hours as needed for pain 30 tablet 08/29/2020 2 amitriptyline (ELAVIL) 25 mg tablet Take 1 tablet (25 mg total) by mouth daily 30 tablet 11 09/17/2020 2 busPIRone (BUSPAR) 10 mg tabletIndications :Generalized Anxiety Disorder Take 1 tablet (10 mg total) by mouth 2 (two) times a day 60 tablet 08/30/2020 2 cholecalciferol (VITAMIN D-3) 2000 unit capsule Take 1 capsule (2,000 Units total) by mouth daily 30 capsule 08/30/[address] (VOLTAREN) 75 mg EC tablet Take by mouth 01/29/2020 2 fluticasone furoate-vilantero L (BREO ELLIPTA) 100-25 mcg/dose diskus inhaler Inhale 1 puff daily Rinse mouth with water after use. Do not swallow. 60 each 08/30/2020 2 gabapentin (NEURONTIN) 100 mg capsule Take 1 capsule (100 mg total) by mouth nightly 90 capsule 1 12/28/2020 2 ipratropium (ATROVENT HFA) 17 mcg/actuation inhaler Inhale 2 puffs every 4 (four) hours as needed for wheezing 12.9 g 08/30/2020 2 metoprolol tartrate (LOPRESSOR) 25 mg immediate release tablet Take 25 mg by mouth 2 (two) times a day 11/16/2020 2 metoprolol XL (TOPROL-XL) 100 mg 24 hr tablet Take 1 tablet (100 mg total) by mouth daily 30 tablet 08/30/2020 2 montelukast (SINGULAIR) 10 mg tablet Take 1 tablet (10 mg total) by mouth nightly 30 tablet 08/30/2020 2 oxyCODONE (ROXICODONE) 5 mg immediate release tabletIndications :Pain Take 1 tablet (5 mg total) by mouth every 4 (four) hours as needed for pain 30 tablet 09/16/2020 2 oxyCODONE-acetami nophen (PERCOCET) 10-325 mg per tablet Take 1 tablet by mouth every 12 (twelve) hours [address] (PROTONIX) 40 mg EC tabletIndications :Stress Ulcer Prophylaxis Take 1 tablet (40 mg total) by mouth daily 30 tablet 08/30/2020 2 ramelteon (ROZEREM) 8 mg tabletIndications :Sleep-Onset Insomnia Take 1 tablet (8 mg total) by mouth nightly 30 tablet 11 09/16/2020 2 umeclidinium (INCRUSE ELLIPTA) 62.5 mcg/actuation blister with device Inhale 1 puff (62.5 mcg total) daily 30 each 08/30/2020 2 documented as of this encounter Discharge Disposition Disposition Code Departure Means Destination Discharge to home or self care documented in this encounter Plan of Treatment Not on file documented as of this encounter Procedures Procedure Name Priority Date/Time Associated Diagnosis Comments XR SPINE CERVICAL 2 OR 3 VIEWS Schedule Routine, Read Routine (OP Routine) 12/28/2020 11:49 AM CDT Type III fracture of odontoid process, with routine healing, subsequent encounter documented in this encounter Results * XR Spine Cervical 2 or 3 Views (12/28/2020 11:49 AM CDT) Anatomical Region Laterality Modality Spine N/A Radiographic Cesia ging Narrative 12/28/2020 2:00 PM CDT AP and lateral the cervical spine was interpreted. ??Demonstrates evidence of diffuse spondylosis throughout the cervical spine. ??Overall alignment of cervical spine is in lordosis. ??Patient has a type 3 dens fracture that is identified. ??On flexion-extension there is very minimal translation that is seen. us Indio Rondon MD IMG XR PROCEDURES Sandra l Result documented in this encounter Visit Diagnoses Not on filedocumented in this encounter Care Teams Eyeglass Lens Generator Relationship Specialty Start Date End Date Eusebio Nagy MD PCP - General Internal Medicine 12/21/20 documented as of this encounter
--- OUTSIDE RECORDS SUMMARY | 2024-08-05 02:31 | XMS_ITS | Encounter Summary ---
Author Organization [facility] Healthcare Address [address] [place] [address] Care Team Providers Care Data Analysis Manager Name Role Phone Eusebio Nagy MD Primary Care Provider + [phone] To Caballero MD Unavailable [phone] Encounter Details Date Type Department Care Team (Late st Contact Info) Description 10/22/2022 Telephone [facility] [address] 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 I also explained we are not able to order labs as she is not yet under our care. I suggested she contact her PCP if she thought labs needed to be checked. * Telephone Encounter - Sveta Bynum RN - 10/22/2022 9:05 AM CDT Pts daughter called and states the pt is experiencing restless leg keeping her up at night and she thinks this is related to her iron deficiency. Pts daughter requesting to move her consult visit appt up or come in for lab work. Call routed to Vianca nurse coordinator and Dr. Montelongo. documented in this encounter Plan of Treatment Not on file documented as of this encounter Visit Diagnoses Not on filedocumented in this encounter Care Teams Data Analysis Manager Relationship Specialty Start Date End Date Eusebio Nagy MD PCP - General Internal Medicine 12/21/20 To Caballero MD [address] [place] [address] Referring Physician Obstetrics and Gynecology 06/09/21 documented as of this encounter
--- OUTSIDE RECORDS SUMMARY | 2024-08-05 02:31 | XMS_ITS | Encounter Summary ---
Author Organization [facility] Address [address] [facility] [address] [place] [address] Care Team Providers Care Java Xml Developer Name Role Phone Eusebio Nagy MD Primary Care Provider [phone] Encounter Details Date Type Department Care Team (Late st Contact Info) Description 01/31/2021 Orders Only [facility] [address] [facility] [address] [place] [address] [place] [address] [facility] [address] [place] [address] Social History Tobacco Use Types Packs/Day Years Used Date Smoking Tobacco: Former Cigarettes Q uit: 08/23/2004 Comments No Sex and Gender Information Value Date Recorded Sex Assigned at Not on file 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 Gender Identity Not on file Sexual Orientation Not on file documented as of this encounter Ordered Prescriptions Prescription Sig Dispense Quantity Refills Last Filled Start Date End Date traMADoL (ULTRAM) 50 mg tablet Take 1 tablet (50 mg total) by mouth every 8 (eight) hours as needed for pain 40 tablet 01/31/2021 02/18/2021 documented in this encounter Plan of Treatment Not on file documented as of this encounter Visit Diagnoses Not on filedocumented in this encounter Discontinued Medications Medication Sig Discontinue Reason Start Date End Da te traMADoL (ULTRAM) 50 mg tablet Take 1 tablet (50 mg total) by mouth every 8 (eight) hours as needed for pain Reorder 01/09/2021 01/31/2021 documented as of this encounter Care Teams Java Xml Developer Relationship Specialty Start Date End Date Eusebio Nagy MD PCP - General Internal Medicine 12/21/20 documented as of this encounter
--- OUTSIDE RECORDS SUMMARY | 2024-08-05 02:31 | XMS_ITS | Encounter Summary ---
Author Organization [facility] Address [address] [place] [address] Phone Care Team Providers Care Pharmaceutical Assistant Name Role Phone Eusebio Nagy MD Primary Care Provider To Caballero MD Unavailable [phone] Encounter Details Date Type Department Care Team (Late st Contact Info) Description 06/12/2021 Orders Only [facility] [address] [facility] 13th [place] [address] [place] [address] Altaf Marques MD [address] [facility] [id number] [place] [address] Vaginal lesion (Primary Dx) Social History Tobacco Use Types Packs/Day Years Used Date Smoking Tobacco: Former Cigarettes Q uit: 08/23/2004 Comments No Sex and Gender Information Value Date Recorded Sex Assigned at Not on file 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 Gender Identity Not on file Sexual Orientation Not on file documented as of this encounter Plan of Treatment Not on file documented as of this encounter Results * Surgical pathology (06/13/2021 11:16 AM IT INTEGRATION ARCHITECT) Tissue (Miscellaneous) 06/13/2021 11:16 AM IT INTEGRATION ARCHITECT 06/13/2021 11:16 AM IT INTEGRATION ARCHITECT Narrative [facility] - 07/27/2021 10:56 AM IT INTEGRATION ARCHITECT EPIC results best viewed via link to PDF [facility] Consult Service [address], [place] [address] Note to Patients: This report may contain a detailed description of human tissue sent by a health care provider to the laboratory for pathologic evaluation. The content of this report is essential for diagnosis and may provide important critical findings. This information may be unfamiliar to patients to review without a medical professional present. It is advised that the patient review this report in the presence of a health care provider who can answer questions and explain the details. SURGICAL PATHOLOGY REPORT * Consult Report * [facility] is providing an additional review of previously collected tissue. FINAL WITH ADDENDUM Patient Name: ??RORY HILLMAN Address: ??[address], ?[place], [place] ??[address] Gender: ??F : ??1940 (Age: 80) Hospital #: ??[id number] Patient Type: ??[facility] Location: ??[facility] Taken: ??06/13/2021 Received: ??06/13/2021 Accessioned: ??06/15/2021 Reported: ??07/27/2021 Physician(s): Altaf Marques M.D. [facility] Department of Pathology [address] [place] [address] P: [phone] F: [phone] Diagnosis: Consult material received from [place], [place] (OSC [id number]; 06/05/2021). A. Vulva, labia, #1, biopsy ? - Atypical plasmacytic infiltrate - See comment B. Vulva, labia, #2, biopsy ? - Atypical plasmacytic infiltrate - See comment xxd/06/17/2021 20:33 By this signature, I attest that the above diagnosis is based upon my personal examination of the slides(and/or other material indicated in the diagnosis). Dakota Patrick M.D. Report Electronically Reviewed and Signed Out By Dakota Patrick M.D. 07/27/2021 10:56:18 Diagnosis Comment This result was flagged as significant and was sent to Dr. Marques via email on 06/28/2021. In summary, the specimen contains a prominent plasma cell infiltrate. ??Although a monoclonal pattern of reactivity is not identified with kappa: lambda in-situ hybridization, the presence of a minute population with an IgH gene rearrangement (see separate report) in conjunction with the high proliferative rate are unusual for a reactive condition. ??If there is concern for a hematologic malignancy at this site, rebiopsy with submission of a fresh specimen for flow cytometry and molecular testing may be of interest. The findings were reviewed in intradepartmental consensus conference. . Microscopic Description and Comment: Microscopic examination substantiates the above cited diagnosis. Parts A and B Morphology- Biopsies from vulvar lesions #1 and #2 are similar and show surface erosion. There is coagulative necrosis of the superficial dermis, along with some superficial vasculitis. The squamous epithelium is relatively unremarkable. Usual type vulvar intraepithelial neoplasia is not identified. Examination basal layer does not suggest the mitotic activity or cytologic atypia of dedifferentiated vulvar intraepithelial neoplasia. There is a dense perivascular inflammatory cell infiltrate in the deep dermis predominantly composed of morphologically atypical plasmacytoid cells with prominent mitoses. There are admixed small mature appearing lymphocytes. Immunohistochemistry- Immunohistochemical stains (single antibody staining procedure, with appropriate controls) are performed at [facility] for further characterization. The inflammatory infiltrate is positive for CD45 and is predominantly composed of CD138 positive plasma cells. These plasma cells are positive for MUM1 and negative for CD56, Cyclin D1, ALK1, CD10, Lysozyme, BCL-2, BCL-6, CD30, p53, and EDGAR. The plasma cells are polytypic by in situ hybridization studies for kappa and lambda light chains with a kappa: lambda ratio of ~2:1 and have a proliferative rate of ~70% with ki67. Stains for CD20, PAX5 and CD79a highlight admixed B- lymphocytes. CD3 highlights scattered T-lymphocytes in the background that are also positive for CD43. In situ hybridization study for EBV encoded RNA is negative. Fluorescent in situ hybridization studies ([id number]) for MYC and BCL6 gene rearrangements, IGH-BCL2 translocation and IgH-CCND1 translocation are negative (see addendum). Fernanda Abraham MD History: The patient is a 80-year-old woman. The submitted history is vaginal lesion. Slides are from vulvar biopsies processed at [place], [place] June 2021. Materials Received: Received for review are four slides labeled [id number], accompanied by the corresponding pathology report. The materials originated from [place], [place]. Additionally received for review on 07/04/2021 are two blocks (A1 & B1) labeled [id number], from [facility] Department of Pathology, [place], [place]. Selected slide(s) may be digitally scanned for our files, and all material is returned to the referring institution, along with a copy of our final report. Addenda/Procedures Addendum Ordered: ??07/20/2021 ??Status: ??Signed Out ? Addendum Complete: ??07/20/2021 By: ??Dakota Patrick M.D. Addendum Signed Out: ??08/07/2021 ?? Addendum Comment 3 stained slides received on 07/20/2021 from [facility]. By this signature, I attest that the above diagnosis is based upon my personal examination of the slides(and/or other material indicated in the diagnosis). ?? Dakota Patrick M.D. ??Report Electronically Reviewed and Signed Out By ??Dakota Patrick M.D. ??08/07/2021 13:50:31 ? Addendum Ordered: ??09/21/2021 ??Status: ??Signed Out ? Addendum Complete: ??09/21/2021 By: ??Dakota Patrick M.D. Addendum Signed Out: ??09/21/2021 ?? Addendum Comment Please see below for FISH testing performed by and reported on 07/20/21. By this signature, I attest that the above diagnosis is based upon my personal examination of the slides(and/or other material indicated in the diagnosis). ?? Dakota Patrick M.D. ??Report Electronically Reviewed and Signed Out By ??Dakota Patrick M.D. ??09/21/2021 09:47:51 ? The MD-IgH test was performed at [facility], Department of Surgical Pathology, [address] [place], [place] ??[address]. The TATYANA-SNEHAL test was performed by [facility], [address] [place] [address]. Any testing required for diagnostic purposes was performed in the Department of Pathology and Immunology at [facility], [address] [place] [address] CLIA # [id number] The performance characteristics of the testing cited in this report (if any) were determined by the ??[facility] Department of Pathology and Immunology [facility], as part of an ongoing software quality engineer program and in compliance with federally mandated regulations drawn from the Clinical Laboratory Improvement Act of 1988 (CLIA '88). ??Some of these tests rely on the use of analyte specific reagents (ASR) and are subject to specific labeling requirements by the US Food and Drug Administration. ??Such diagnostic tests may only be performed in a facility that is certified by the Department of Health and Human Services as a high complexity laboratory under CLIA '88. ??The FDA has determined that such clearance or approval is not necessary. ??ASRs should not be regarded as investigational or for research. ??ASRs were developed and the performance characteristics determined by the [facility], [facility] Department of Pathology and Immunology. ??It has not been cleared or approved by the U.S. Food and Drug Administration. ??Any test designated as LDT was developed and its performance characteristics determined by [facility]. It has not been cleared or approved by the FDA. This test is used for clinical purposes and should not be regarded as investigational or for research. Report images and/or scanned reports, if included, only viewable in PDF version of report. Altaf Marques MD LAB PATHOLOGY ORDERABLES Final Result [facility] [address] [place] [address] documented in this encounter Visit Diagnoses Diagnosis Vaginal lesion- Primary Other specified noninflammatory disorder of vagina Vaginal lesion Other specified noninflammatory disorder of vagina documented in this encounter Care Teams Pharmaceutical Assistant Relationship Specialty Start Date End Date Eusebio Nagy MD PCP - General Internal Medicine 12/21/20 To Caballero MD [address] [place] [address] Referring Physician Obstetrics and Gynecology 06/09/21 documented as of this encounter
--- OUTSIDE RECORDS SUMMARY | 2024-08-05 02:31 | XMS_ITS | Encounter Summary ---
Author Organization [facility] Healthcare Address [address] [place] [address] Care Team Providers Care Core Machine Operator Name Role Phone Eusebio Nagy MD Primary Care Provider [phone] To Caballero MD Unavailable [phone] Encounter Details Date Type Department Care Team (Latest Contact Info) Description 11/13/2021 4:39 PM CDT - 11/13/2021 11:59 PM CDT Hospital Encounter [facility] [address] [place] [address] Discharge Disposition: Discharge to home or self care Social History Tobacco Use Types Packs/Day Years Used Date Smoking Tobacco: Former Cigarettes Q uit: 08/23/2004 Comments No Sex and Gender Information Value Date Recorded Sex Assigned at Not on file 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 Gender Identity Not on file Sexual Orientation Not on file documented as of this encounter Medications at Time of Discharge acetaminophen 500 mg capsuleIndication s:Pain Take 2 capsules (1,000 mg total) by mouth every 6 (six) hours 30 tablet 2021 Advair Diskus 250-50 mcg/dose diskus inhaler 08/11/2021 HYDROcodone-aceta minophen (NORCO) 7.5-325 mg per tablet Take 1 tablet by mouth every 6 (six) hours as needed 11/09/2021 metoprolol XL (TOPROL-XL) 100 mg 24 hr tablet 10/05/[address] (PROTONIX) 40 mg EC tablet Take 1 tablet (40 mg total) by mouth daily tiotropium bromide (SPIRIVA RESPIMAT) 2.5 mcg/actuation inhaler Inhale 2 puffs daily documented as of this encounter Discharge Disposition Disposition Code Departure Means Destination Discharge to home or self care documented in this encounter Plan of Treatment Not on file documented as of this encounter Procedures Procedure Name Priority Date/Time Associated Diagnosis Comments NEURO CT MR OUTSIDE REFERENCE Routine 11/13/2021 4:39 PM CDT Diagnosis unknown documented in this encounter Results * Neuro CT MR Outside Reference (11/13/2021 4:39 PM CDT) Impressions [facility] - 11/13/2021 4:39 PM CDT These images are for Reference purposes only and have not been reviewed by [facility]. ??There will be no report generated by a [facility] Radiologist. Narrative [facility] - 11/13/2021 4:39 PM CDT EXAMINATION: ??Images For Reference Purposes Only us Jeffrey Dow MD IMG CT PROCEDURES Fi nal Result [facility] documented in this encounter Visit Diagnoses Not on filedocumented in this encounter Care Teams Core Machine Operator Relationship Specialty Start Date End Date Eusebio Nagy MD PCP - General Internal Medicine 12/21/20 To Caballero MD [address] [place] [address] Referring Physician Obstetrics and Gynecology 06/09/21 documented as of this encounter
--- OUTSIDE RECORDS SUMMARY | 2024-08-05 02:31 | XMS_ITS | Encounter Summary ---
Author Organization [facility] Healthcare Address [address] [place] [address] Care Team Providers Care Silver Cleaner Name Role Phone Eusebio Nagy MD Primary Care Provider [phone] To Caballero MD Unavailable [phone] Encounter Details Date Type Department Care Team (Latest Contact Info) Description 09/23/2021 1:30 PM HOME ADMINISTRATOR - 09/23/2021 1:33 PM HOME ADMINISTRATOR Hospital Encounter [facility] [address] [place] [address] Discharge Disposition: Discharge to home or self care Social History Tobacco Use Types Packs/Day Years Used Date Smoking Tobacco: Former Cigarettes Q uit: 08/23/2004 Comments No Sex and Gender Information Value Date Recorded Sex Assigned at Not on file Legal Sex Female 11:40 AM HOME ADMINISTRATOR Gender Identity Not on file Sexual Orientation Not on file documented as of this encounter Medications at Time of Discharge acetaminophen 500 mg capsuleIndicatio ns:Pain Take 2 capsules (1,000 mg total) by mouth every 6 (six) hours 30 tablet 2 Advair Diskus 250-50 mcg/dose diskus inhaler 2 tiotropium bromide (SPIRIVA RESPIMAT) 2.5 mcg/actuation inhaler Inhale 2 puffs daily oxyCODONE (ROXICODONE) 5 mg immediate release tabletIndication s:Pain Take 1 tablet (5 mg total) by mouth every 4 (four) hours as needed for pain 30 tablet 2 10/28/19 22 acetaminophen (TYLENOL) 325 mg tablet Take 2 tablets (650 mg total) by mouth every 4 (four) hours as needed for pain 30 tablet 1 09/27/19 22 amitriptyline (ELAVIL) 25 mg tablet Take 1 tablet (25 mg total) by mouth daily 30 tablet 11 1 09/27/19 22 bisacodyL (DULCOLAX) 10 mg suppositoryIndic ations:constipat ion Insert 1 suppository (10 mg total) into the rectum daily as needed for constipation 12 suppository 2 11/14/19 22 busPIRone (BUSPAR) 10 mg tabletIndication s:Generalized Anxiety Disorder Take 1 tablet (10 mg total) by mouth 2 (two) times a day 60 tablet 1 09/27/19 22 cholecalciferol (VITAMIN D-3) 2000 unit capsule Take 1 capsule (2,000 Units total) by mouth daily 30 capsule 1 09/27/19 22 clindamycin (CLEOCIN) 300 mg capsule 2 09/27/19 22 clindamycin (CLEOCIN) 300 mg capsuleIndicatio ns:Skin/Soft Tissue Infection Take 1 capsule (300 mg total) by mouth 4 (four) times a day 2 11/14/19 22 cyclobenzaprine (FLEXERIL) 5 mg tablet Take 1 tablet (5 mg total) by mouth 3 (three) times a day 30 tablet 2 11/14/[address] (VOLTAREN) 75 mg EC tablet Take by mouth 0 09/27/19 22 fluticasone furoate-vilanter oL (BREO ELLIPTA) 100-25 mcg/dose diskus inhaler Inhale 1 puff daily Rinse mouth with water after use. Do not swallow. 60 each 1 09/27/19 22 gabapentin (NEURONTIN) 100 mg capsule Take 1 capsule (100 mg total) by mouth nightly 90 capsule 1 1 09/27/19 22 gabapentin (NEURONTIN) 300 mg capsule Take 1 capsule (300 mg total) by mouth nightly 30 capsule 11 2 11/14/19 22 ipratropium (ATROVENT HFA) 17 mcg/actuation inhaler Inhale 2 puffs every 4 (four) hours as needed for wheezing 12.9 g 11/14/19 22 lidocaine (LIDODERM) 5 % Place 2 patches on the skin daily Remove & discard patch within 12 hours or as directed by . 60 patch 2 11/14/19 22 metoprolol tartrate (LOPRESSOR) 25 mg immediate release tablet Take 25 mg by mouth 2 (two) times a day 1 11/14/19 22 metoprolol XL (TOPROL-XL) 100 mg 24 hr tablet Take 1 tablet (100 mg total) by mouth daily 30 tablet 09/27/19 22 montelukast (SINGULAIR) 10 mg tablet Take 1 tablet (10 mg total) by mouth nightly 30 tablet 09/27/19 22 oxyCODONE (ROXICODONE) 5 mg immediate release tabletIndication s:Pain Take 1 tablet (5 mg total) by mouth every 4 (four) hours as needed for pain 30 tablet 09/27/19 22 oxyCODONE-acetam inophen (PERCOCET) 10-325 mg per tablet Take 1 tablet by mouth every 12 (twelve) hours 09/27/[address] (PROTONIX) 40 mg EC tabletIndication s:Stress Ulcer Prophylaxis Take 1 tablet (40 mg total) by mouth daily 30 tablet 11/14/19 22 polyethylene glycol (MIRALAX) 17 gram packetIndication s:constipation Take 1 packet (17 g total) by mouth daily 2 11/14/19 22 ramelteon (ROZEREM) 8 mg tabletIndication s:Sleep-Onset Insomnia Take 1 tablet (8 mg total) by mouth nightly 30 tablet 11 09/27/19 22 senna-docusate (PERICOLACE) 8.6-50 mg Take 2 tablets by mouth 2 (two) times a day 2 11/14/19 22 traMADoL (ULTRAM) 50 mg tablet Take 1 tablet (50 mg total) by mouth every 8 (eight) hours as needed for pain 40 tablet 07/17/202 1 09/27/19 22 umeclidinium (INCRUSE ELLIPTA) 62.5 mcg/actuation blister with device Inhale 1 puff (62.5 mcg total) daily 30 each 1 09/27/19 22 documented as of this encounter Discharge Disposition Disposition Code Departure Means Destination Discharge to home or self care documented in this encounter Plan of Treatment Not on file documented as of this encounter Procedures Procedure Name Priority Date/Time Associated Diagnosis Comments NEURO CT MR OUTSIDE CONSULT Routine 09/23/2021 1:30 PM HOME ADMINISTRATOR Diagnosis unknown documented in this encounter Results * Neuro CT MR Outside Consult (09/23/2021 1:30 PM HOME ADMINISTRATOR) Anatomical Region Laterality Modality N/A Computed Tomogra phy 09/23/2021 1:50 PM HOME ADMINISTRATOR Impressions 09/23/2021 2:02 PM HOME ADMINISTRATOR 1. ??L2 compression fracture with approximately 20% height loss is new compared to prior CT abdomen and pelvis from 08/23/2020, but remains age indeterminate. ??MRI could be performed to assess for chronicity. 2. ??No acute intracranial abnormality. 3. ??No acute fracture in the cervical spine. The findings, conclusions and recommendations within this report do not replace the initial findings, conclusions ??and recommendations made at the facility where the study was performed based upon the imaging and clinical condition at that time. ??Comparison with the prior report and clinical history is necessary. ??The provided images may or may not represent the [place] source data set and thus may contain changes that may lower the accuracy of this second-opinion interpretation. Dictated by: Gilda Redd M.D. The radiology attending physician has personally reviewed this study, and had reviewed and/or edited this written report and agrees with it. Electronically signed by: Carlos Gauthier M.D. Narrative 09/23/2021 2:02 PM HOME ADMINISTRATOR EXAMINATION: RADIOLOGY CONSULTATION ON OUTSIDE IMAGING STUDY STUDY INITIALLY PERFORMED: 09/23/2021 at [facility]. TYPE OF STUDY: Multiple CT images of the head, cervical spine, and lumbar spine without intravenous contrast are provided at the time of this interpretation. CONTRAST ROUTE: No contrast was administered. The protocol was adequate to address the clinical question. The outside final report was not available at the time of this second opinion interpretation. TYPE OF CONSULTATION: Consult on outside imaging study with images submitted through [facility] DATE OF CONSULTATION: 09/23/2021 1:36 PM HISTORY: 80-year-old woman presenting after a fall with low back pain. COMPARISON: Comparison is made to a prior head CT dated 08/23/2020 and cervical spine MRI dated 09/13/[address] abdomen and pelvis dated 08/23/2020. FINDINGS: There is diffuse cerebral volume loss with associated ex vacuo dilatation of the ventricles. ??The ventricles are unchanged in size and morphology. ??Areas of hypoattenuation in the periventricular and deep white matter are nonspecific but may be seen in the setting of chronic small vessel ischemic disease. There is no acute intracranial hemorrhage. No mass effect or midline shift is present. Bilateral lens replacements. There is a left mastoid effusion. The visualized portions of the paranasal sinuses are normal. No fractures are identified. There is exaggeration of the normal cervical lordosis with thoracic kyphosis. There is no acute fracture. Vertebral bodies are normal in height without compression fractures. There is no spinal canal stenosis. The craniocervical junction is normal. 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 There are soft tissue calcifications in the neck. ??The thyroid is enlarged. ??Emphysematous changes are present in the upper lungs. There is a chronic T11 compression fracture, which is incompletely evaluated on this study. ??There is a chronic T12 compression fracture with severe height loss and mild retropulsion, which is unchanged from 202. There is an age indeterminate L2 compression fracture with approximately 20% height loss. ??There is multilevel degenerative disc disease and lower lumbar facet joint osteoarthritis. ?? The bones are osteopenic. ??Nonobstructing left renal cysts are present. ??Atherosclerotic calcifications are present in the aorta and its branches. ??There are changes of prior sigmoid colon resection and anastomosis. ??There is colonic diverticulosis without evidence of acute diverticulitis. Procedure Note Carlos Gauthier III, MD PhD - 09/23/2021 EXAMINATION: RADIOLOGY CONSULTATION ON OUTSIDE IMAGING STUDY STUDY INITIALLY PERFORMED: 09/23/2021 at [facility]. TYPE OF STUDY: Multiple CT images of the head, cervical spine, and lumbar spine without intravenous contrast are provided at the time of this interpretation. CONTRAST ROUTE: No contrast was administered. The protocol was adequate to address the clinical question. The outside final report was not available at the time of this second opinion interpretation. TYPE OF CONSULTATION: Consult on outside imaging study with images submitted through [facility] DATE OF CONSULTATION: 09/23/2021 1:36 PM HISTORY: 80-year-old woman presenting after a fall with low back pain. COMPARISON: Comparison is made to a prior head CT dated 08/23/2020 and cervical spine MRI dated 09/13/[address] abdomen and pelvis dated 08/23/2020. FINDINGS: There is diffuse cerebral volume loss with associated ex vacuo dilatation of the ventricles. The ventricles are unchanged in size and morphology. Areas of hypoattenuation in the periventricular and deep white matter are nonspecific but may be seen in the setting of chronic small vessel ischemic disease. There is no acute intracranial hemorrhage. No mass effect or midline shift is present. Bilateral lens replacements. There is a left mastoid effusion. The visualized portions of the paranasal sinuses are normal. No fractures are identified. There is exaggeration of the normal cervical lordosis with thoracic kyphosis. There is no acute fracture. Vertebral bodies are normal in height without compression fractures. There is no spinal canal stenosis. The craniocervical junction is normal. 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 There are soft tissue calcifications in the neck. The thyroid is enlarged. Emphysematous changes are present in the upper lungs. There is a chronic T11 compression fracture, which is incompletely evaluated on this study. There is a chronic T12 compression fracture with severe height loss and mild retropulsion, which is unchanged from 202. There is an age indeterminate L2 compression fracture with approximately 20% height loss. There is multilevel degenerative disc disease and lower lumbar facet joint osteoarthritis. The bones are osteopenic. Nonobstructing left renal cysts are present. Atherosclerotic calcifications are present in the aorta and its branches. There are changes of prior sigmoid colon resection and anastomosis. There is colonic diverticulosis without evidence of acute diverticulitis. IMPRESSION: 1. L2 compression fracture with approximately 20% height loss is new compared to prior CT abdomen and pelvis from 08/23/2020, but remains age indeterminate. MRI could be performed to assess for chronicity. 2. No acute intracranial abnormality. 3. No acute fracture in the cervical spine. The findings, conclusions and recommendations within this report do not replace the initial findings, conclusions and recommendations made at the facility where the study was performed based upon the imaging and clinical condition at that time. Comparison with the prior report and clinical history is necessary. The provided images may or may not represent the [place] source data set and thus may contain changes that may lower the accuracy of this second-opinion interpretation. Dictated by: Gilda Redd M.D. The radiology attending physician has personally reviewed this study, and had reviewed and/or edited this written report and agrees with it. Electronically signed by: Carlos Gauthier M.D. Elo Martinez MD IMG CT PROCEDURES Fi nal Result documented in this encounter Visit Diagnoses Not on filedocumented in this encounter Care Teams Silver Cleaner Relationship Specialty Start Date End Date Eusebio Nagy MD PCP - General Internal Medicine 12/21/20 To Caballero MD [address] [place] [address] Referring Physician Obstetrics and Gynecology 06/09/21 documented as of this encounter
--- OUTSIDE RECORDS SUMMARY | 2024-08-05 02:31 | XMS_ITS | Encounter Summary ---
Author Organization [facility] Address [address] [place] [address] Phone Care Team Providers Care Engine Lathe Set Up Operator Tool Name Role Phone Eusebio Nagy MD Primary Care Provider To Caballero MD Unavailable [phone] Reason for Referral * Diagnostic Imaging (Routine) - Closed Specialty Diagnoses / Procedures Referred By Contac t Referred To Contact Diagnoses Lumbar compression fracture, closed, initial encounter (HCC) Procedures XR Scoliosis Ap and Lateral Jeffrey Dow MD [address] [place] [address] Phone: tel: fax: [facility] Radiology [address] [place] [address] [address] [place] [address] Phone: tel: Referral ID Status Reason Start Date Expiration Date Visits Re quested Visits Authorized [id number] Closed 11/07/2021 12/07/2022 1 1 Reason for Visit * Reason Comments New Patient Encounter Details Date Type Department Care Team (Late st Contact Info) Description 11/13/2021 3:00 PM CDT Office Visit [facility] Orthopaedic Surgery [facility] Medical Office Building [address] [place] [address] Jeffrey Dow MD [address] [place] [address] Lumbar compression fracture, closed, initial encounter ([facility]) (Primary Dx) Social History Tobacco Use Types Packs/Day Years Used Date Smoking Tobacco: Former Cigarettes Q uit: 08/23/2004 Comments No Sex and Gender Information Value Date Recorded Sex Assigned at Not on file 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 Gender Identity Not on file Sexual Orientation Not on file documented as of this encounter Last Filed Vital Signs Vital Sign Reading Time Taken Comments Blood Pressure - - Pulse - - Temperature - - Respiratory Rate - - Oxygen Saturation - - Inhaled Oxygen Concentration - - Weight 52.2 kg (115 lb) 11/13/2021 3:41 PM CDT Height 152.4 cm (5') 11/13/2021 3:41 PM CDT Body Mass Index 22.46 11/13/2021 3:41 PM CDT documented in this encounter Progress Notes * Jarred Purcell MD - 11/13/2021 3:00 PM CDT New Patient Visit Chief Complaint L2 compression fracture History of Present Illness Phoebe Hillman is a 81 y.o. female who presents to our office today for follow- up of an L2 compression fracture sustained 09/23/2021 after lifting an oxygen tank. She was seen by the Orthopedic surgery consult resident on-call, and she was treated non operatively. Of note, she does have a history of prior T11 and T12 vertebral compression fractures as well as a type 3 dens fracture which were both reportedly treated non operatively and staffed with Neurosurgery. She was deemed to be a poor surgical candidate. In the interim, she still complains of significant pain throughout her entire spine. She sees a pain doctor for injections into her cervical spine, but is unclear what what this physician or providers role actually is. She has no issues with her bladder or bowel, no numbness or tingling extremities, and no issues with balance when she is able stand. She is a home ambulator, currently no assist. Past Medical History She has a past medical history of COPD (chronic obstructive pulmonary disease) ([facility]) ([facility]), Hypertension, and Thoracic spine fracture ([facility]) ([facility]). She has no past medical history of Diabetes mellitus ([facility]). Past Surgical History She has no past surgical history on file. Medications She has a current medication list which includes the following prescription(s): acetaminophen, advair diskus, hydrocodone-acetaminophen, metoprolol xl, pantoprazole dr, tiotropium bromide, albuterol hfa, and hydrochlorothiazide. Drug Allergies She is allergic to hydroxychloroquine, quinapril, and duloxetine. Social History She reports that she quit smoking about 17 years ago. She does not have any smokeless tobacco history on file. Family History Her family history includes No Known Problems in her father and mother. Review of Systems A complete twelve-system review of systems was obtained from the patient and is otherwise negative unless noted in HPI Physical Examination General: Diffuse local tenderness throughout the entire spine No skin defects. Kyphotic deformity No appreciable muscular atrophy. Nontender, and painless ROM shoulders, elbow, wrist, digits, hips, knees, ankles. Normal muscular tone. Motor: Muscle Strength Left Right Deltoid 5/5 5/5 Biceps 5/5 5/5 Triceps 5/5 5/5 Wrist extension 5/5 5/5 Wrist flexion 5/5 5/5 Computer Programming Manager 5/5 5/5 Interosseous of hand 5/5 5/5 Iliopsoas 4/5 4/5 Hamstrings 5/5 5/5 Quadriceps 5/5 5/5 Tibialis anterior 5/5 5/5 Extensor hallicus longus 5/5 5/5 Gastrocsoleus complex 5/5 5/5 Sensation Left upper extremity: sensation grossly intact to light touch in C5 to T1 dermatomes. Right upper extremity: sensation grossly intact to light touch in C5 to T1 dermatomes. Left lower extremity: sensation grossly intact to light touch in L2 to S1 dermatomes. Right lower extremity: sensation grossly intact to light touch in L2 to S1 dermatomes. Reflexes: Left Upper Extremity: 1+ biceps (C5), 1+ brachioradialis (C6), 1+ triceps (C7). Right Upper Extremity: 1+ biceps (C5), 1+ brachioradialis (C6), 1+ triceps (C7). Left Lower Extremity: 1+ patellar tendon (L4), 1+ achilles (S1) Right Lower Extremity: 1+ patellar tendon (L4), 1+ achilles (S1) Rectal exam: Deferred Gait: Deferred Long-tract signs: Negative Galicia's No Clonus Vascular: Bilateral Upper Extremity: fingers WWP Bilateral Lower Extremity: toes WWP Review of Plain Radiographs/Studies Scoliosis films taken today 11/13/2021 ordering plain view myself demonstrates prior vertebral compression fracture T11-T12 with significant height loss, which is relatively unchanged from priors. Also visualizes the vertebral compression fracture at L2 with 20% height loss which is unchanged from priors. She has significant kyphosis. Impression/Diagnosis The patient is a 81 y.o. female with a L2 compression fracture in setting of previous thoracic compression fractures, kyphotic deformity, and a type 3 dens fracture which is being treated non operatively. Treatment Plan I discussed with the patient my impression, the imaging findings, and treatment plan in detail witha focus on the etiology, natural history, and management of her symptoms. Unfortunately she is a poor surgical candidate with poor bone health. She will continue with non operative management. We will provide a referral to both bone health and a oil paint shader. She will follow up in 6 weeks for repeat x-rays. Jarred Purcell MD Resident, Department of Orthopaedic Surgery [facility] in [place]/[facility] Dr. Jarred Purcell dictating using Fluency Direct. Dictation variances may occur. Cosigned by Jeffrey Dow MD at 11/13/2021 4:38 PM CDT Associated attestation - Jeffrey Dow MD - 11/13/2021 4:38 PM CDT 81-year-old female follow-up for compression fracture L2. She has severe back pain related to thesefractures. Fracture that she has had has caused her pain. She has multiple thoracolumbar compression fractures this 1 is new she also has a previous dens fracture. Patient has chronic pain she also has chronic COPD she is on home oxygen. She barely walks around her house. She has chronic pain as well. She is in a wheelchair. She is on nasal cannula oxygen. She has good strength in lower extremities in all distributions quadriceps, dorsiflexors plantar flexors. Sensation is intact. No clonus. X-rays show L2 compression fracture she also has T12-T11 compression fractures. She has severe kyphosis of the thoracolumbar spine. Patient with L2 compression fracture. She also has multiple other compression fractures. The patient should be seen by bone health and also will need chronic pain management. I do not think there is anything I can do from a surgical standpoint and I do not think that kyphoplasty or vertebroplasty be helpful given the multifocal nature of her fractures and the fact that her pain is likely multifactorial and related not only to the acute fracture but also the thoracolumbar kyphosis. documented in this encounter Plan of Treatment Not on file documented as of this encounter Results * XR Scoliosis Ap and Lateral (11/13/2021 3:23 PM CDT) Anatomical Region Laterality Modality Spine N/A Computed Radiogr aphy 11/13/2021 3:44 PM CDT Impressions 11/13/2021 3:44 PM CDT Unchanged severe T11 and T12 compression deformities with increased thoracolumbar kyphosis. Unchanged mild T10 and L2 compression deformities. Electronically signed by: Spike Vinson M.D. Narrative 11/13/2021 3:44 PM CDT EXAMINATION: Scoliosis AP and lateral HISTORY: Compression deformities, spondylosis FINDINGS: AP and lateral standing images of the entire spine were performed with comparison made to lumbar spine radiographs dated 09/23/2021. There is a left knee arthroplasty. There is no significant pelvic tilt. There is mild thoracic dextroscoliosis and lumbar levoscoliosis. There is atherosclerosis of the aorta. There is increased thoracolumbar kyphosis with mild anterior sagittal imbalance. There is a mild L2 compression deformity which is likely unchanged. Severe T11 and T12 compression deformities appear unchanged. There is mild compression deformity of the inferior endplate of T10 which appears unchanged. Procedure Note Spike Vinson MD PhD - 11/13/2021 EXAMINATION: Scoliosis AP and lateral HISTORY: Compression deformities, spondylosis FINDINGS: AP and lateral standing images of the entire spine were performed with comparison made to lumbar spine radiographs dated 09/23/2021. There is a left knee arthroplasty. There is no significant pelvic tilt. There is mild thoracic dextroscoliosis and lumbar levoscoliosis. There is atherosclerosis of the aorta. There is increased thoracolumbar kyphosis with mild anterior sagittal imbalance. There is a mild L2 compression deformity which is likely unchanged. Severe T11 and T12 compression deformities appear unchanged. There is mild compression deformity of the inferior endplate of T10 which appears unchanged. IMPRESSION: Unchanged severe T11 and T12 compression deformities with increased thoracolumbar kyphosis. Unchanged mild T10 and L2 compression deformities. Electronically signed by: Spike Vinson M.D. Jeffrey Dow MD IMG XR PROCEDURES Fi nal Result documented in this encounter Visit Diagnoses Diagnosis Lumbar compression fracture, closed, initial encounter (HCC)- Primary Lumbar compression fracture, closed, initial encounter (HCC) documented in this encounter Discontinued Medications Medication Sig Discontinue Reason Start Date End Da te polyethylene glycol (MIRALAX) 17 gram packetIndications:cons tipation Take 1 packet (17 g total) by mouth daily Therapy completed 09/28/2021 11/13/2021 senna-docusate (PERICOLACE) 8.6-50 mg Take 2 tablets by mouth 2 (two) times a day Therapy completed 2021 11/13/[address] (PROTONIX) 40 mg EC tabletIndications:Stre ss Ulcer Prophylaxis Take 1 tablet (40 mg total) by mouth daily Therapy completed 08/30/2020 11/13/2021 metoprolol tartrate (LOPRESSOR) 25 mg immediate release tablet Take 25 mg by mouth 2 (two) times a day Formulary change 11/16/2020 11/13/2021 lidocaine (LIDODERM) 5 % Place 2 patches on the skin daily Remove & discard patch within 12 hours or as directed by . Therapy completed 2021 11/13/2021 ipratropium (ATROVENT HFA) 17 mcg/actuation inhaler Inhale 2 puffs every 4 (four) hours as needed for wheezing Therapy completed 08/30/2020 11/13/2021 bisacodyL (DULCOLAX) 10 mg suppositoryIndications :constipation Insert 1 suppository (10 mg total) into the rectum daily as needed for constipation Therapy completed 2021 11/13/2021 clindamycin (CLEOCIN) 300 mg capsuleIndications:Ski n/Soft Tissue Infection Take 1 capsule (300 mg total) by mouth 4 (four) times a day Therapy completed 2021 11/13/2021 cyclobenzaprine (FLEXERIL) 5 mg tablet Take 1 tablet (5 mg total) by mouth 3 (three) times a day Therapy completed 2021 11/13/2021 gabapentin (NEURONTIN) 300 mg capsule Take 1 capsule (300 mg total) by mouth nightly Therapy completed 2021 11/13/2021 documented as of this encounter Historical Medications * This list may reflect changes made after this encounter. pantoprazole DR (PROTONIX) 40 mg EC tablet Take 1 tablet (40 mg total) by mouth daily metoprolol XL (TOPROL-XL) 100 mg 24 hr tablet 10/05/2021 HYDROcodone-aceta minophen (NORCO) 7.5-325 mg per tablet Take 1 tablet by mouth every 6 (six) hours as needed 11/09/2021 added in this encounter Care Teams Engine Lathe Set Up Operator Tool Relationship Specialty Start Date End Date Eusebio Nagy MD PCP - General Internal Medicine 12/21/20 To Caballero MD [address] [place] [address] Referring Physician Obstetrics and Gynecology 06/09/21 documented as of this encounter
--- OUTSIDE RECORDS SUMMARY | 2024-08-05 02:31 | XMS_ITS | Encounter Summary ---
Author Organization [facility] Healthcare Address [address] [place] [address] Care Team Providers Care Echocardiographer Name Role Phone Eusebio Nagy MD Primary Care Provider [phone] To Caballero MD Unavailable [phone] Encounter Details Date Type Department Care Team (Latest Contact Info) Description 09/23/2021 1:25 PM CARDIAC TECHNOLOGIST - 09/23/2021 1:26 PM CARDIAC TECHNOLOGIST Hospital Encounter [facility] [address] [place] [address] Discharge Disposition: Discharge to home or self care Social History Tobacco Use Types Packs/Day Years Used Date Smoking Tobacco: Former Cigarettes Q uit: 08/23/2004 Comments No Sex and Gender Information Value Date Recorded Sex Assigned at Not on file Legal Sex Female 11:40 AM CARDIAC TECHNOLOGIST Gender Identity Not on file Sexual Orientation [...] needed for pain 40 tablet 07/17/202 1 02/23/20 22 umeclidinium (INCRUSE ELLIPTA) 62.5 mcg/actuation blister with device Inhale 1 puff (62.5 mcg total) daily 30 each 1 09/27/19 22 documented as of this encounter Discharge Disposition Disposition Code Departure Means Destination Discharge to home or self care documented in this encounter Plan of Treatment Not on file documented as of this encounter Procedures Procedure Name Priority Date/Time Associated Diagnosis Comments XR TRANSFER OF OUTSIDE FILMS Routine 09/23/2021 1:25 PM CARDIAC TECHNOLOGIST Diagnosis unknown documented in this encounter Results * XR Outside Reference (09/23/2021 1:25 PM CARDIAC TECHNOLOGIST) Impressions [facility] - 09/23/2021 1:25 PM CARDIAC TECHNOLOGIST These images are for Reference purposes only and have not been reviewed by [facility]. ??There will be no report generated by a [facility] Radiologist. Narrative [facility] - 09/23/2021 1:25 PM CARDIAC TECHNOLOGIST EXAMINATION: ??Images For Reference Purposes Only us Elo Martinez MD IMG XR PROCEDURES Fi nal Result [facility] documented in this encounter Visit Diagnoses Not on filedocumented in this encounter Care Teams Echocardiographer Relationship Specialty Start Date End Date Eusebio Nagy MD PCP - General Internal Medicine 12/21/20 To Caballero MD [address] [place] [address] Referring Physician Obstetrics and Gynecology 06/09/21 documented as of this encounter
--- OUTSIDE RECORDS SUMMARY | 2024-08-05 02:31 | XMS_ITS | Encounter Summary ---
Author Organization [facility] Healthcare Address [address] [place] [address] Care Team Providers Care Mohel Name Role Phone Eusebio Nagy MD Primary Care Provider [phone] To Caballero MD Unavailable [phone] Encounter Details Date Type Department Care Team (Latest Contact Info) Description 11/13/2021 3:30 PM CDT - 11/13/2021 4:38 PM CDT Hospital Encounter [facility] Radiology [facility] [address] [place] [id number] Discharge Disposition: Discharge to home or self care Social History Tobacco Use Types Packs/Day Years Used Date Smoking Tobacco: Former Cigarettes Q uit: 08/23/2004 Comments No Sex and Gender Information Value Date Recorded Sex Assigned at Not on file 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 ??There will be no report generated by a [facility] Radiologist. Narrative [facility] - 11/13/2021 3:30 PM CDT EXAMINATION: ??Images For Reference Purposes Only Jeffrey Dow MD IMG CT PROCEDURES Fi nal Result [facility] documented in this encounter Visit Diagnoses Not on filedocumented in this encounter Care Teams Mohel Relationship Specialty Start Date End Date Eusebio Nagy MD PCP - General Internal Medicine 12/21/20 To Caballero MD [address] [place] [address] Referring Physician Obstetrics and Gynecology 06/09/21 documented as of this encounter
--- OUTSIDE RECORDS SUMMARY | 2024-08-05 02:31 | XMS_ITS | Encounter Summary ---
Author Organization [facility] Healthcare Address [address] [place] [address] Care Team Providers Care Touch Up Worker Name Role Phone Jason Wiggins MD Primary Care Provider [phone] Encounter Details Date Type Department Care Team (Late st Contact Info) Description 09/17/2020 Orders Only [facility] [phone] Guru Estevez Jr., MD [address] [place] [address] Social History Tobacco Use Types Packs/Day Years Used Date Smoking Tobacco: Former Cigarettes Q uit: 08/23/2004 Comments No Sex and Gender Information Value Date Recorded Sex Assigned at Not on file Legal Sex Female 11:40 AM TOBACCO CURER Gender Identity Not on file Sexual Orientation Not on file documented as of this encounter Plan of Treatment Not on file documented as of this encounter Procedures Procedure Name Priority Date/Time Associated Diagnosis Comments CS GLUCOSE Routine Gen Lab 09/26/2020 6:00 AM TOBACCO CURER DIFFERENTIAL AUTO Routine Gen Lab 09/26/2020 6:0 0 AM TOBACCO CURER COMPREHENSIVE METABOLIC PANEL WITHOUT GLUCOSE (OUTREACH) Routine Gen Lab 09/26/2020 6:00 AM TOBACCO CURER CBC WITH AUTO DIFFERENTIAL Routine Gen Lab 09/26/2020 6:00 AM TOBACCO CURER CS GLUCOSE Routine Gen Lab 09/22/2020 5:58 AM TOBACCO CURER DIFFERENTIAL AUTO Routine Gen Lab 09/22/2020 5:5 8 AM TOBACCO CURER COMPREHENSIVE METABOLIC PANEL WITHOUT GLUCOSE (OUTREACH) Routine Gen Lab 09/22/2020 5:58 AM TOBACCO CURER CBC WITH AUTO DIFFERENTIAL Routine Gen Lab 09/22/2020 5:58 AM TOBACCO CURER CS GLUCOSE Routine Gen Lab 09/19/2020 6:07 AM TOBACCO CURER DIFFERENTIAL AUTO Routine Gen Lab 09/19/2020 6:0 7 AM TOBACCO CURER COMPREHENSIVE METABOLIC PANEL WITHOUT GLUCOSE (OUTREACH) Routine Gen Lab 09/19/2020 6:07 AM TOBACCO CURER CBC WITH AUTO DIFFERENTIAL Routine Gen Lab 09/19/2020 6:07 AM TOBACCO CURER CS GLUCOSE STAT 09/17/2020 7:25 AM TOBACCO CURER DIFFERENTIAL AUTO STAT 09/17/2020 7:2 5 AM TOBACCO CURER COMPREHENSIVE METABOLIC PANEL WITHOUT GLUCOSE (OUTREACH) STAT 09/17/2020 7:25 AM TOBACCO CURER CBC WITH AUTO DIFFERENTIAL STAT 09/17/2020 7:25 AM TOBACCO CURER VITAMIN D 25 HYDROXY Routine Gen Lab 09/17/2020 7:25 AM TOBACCO CURER documented in this encounter Results * (ABNORMAL) Comprehensive metabolic panel, without glucose (Outreach) (09/26/2020 6:00 AM TOBACCO CURER) Pathologist [facility] Sodium 140 135 - 145 mmol/L [facility] Potassium, pl 3.6 3.3 - 4.9 mmol/L [facility] Chloride 96(L) 97 - 110 mmol/L [facility] CO2 39(H) 22 - 32 mmol/L [facility] Anion gap 5 2 - 15 mmol/L [facility] BUN 14 8 - 25 mg/dL [facility] Creatinine 0.55(L) 0.60 - 1.10 mg/dL [facility] Calcium 9.7 8.5 - 10.3 mg/dL [facility] Protein, pl 6.7 6.5 - 8.5 g/dL [facility] Albumin 3.6 3.5 - 5.0 g/dL [facility] Bilirubin, total 0.2 0.1 - 1.2 mg/dL [facility] Alk phos 93 40 - 130 Units/L [facility] AST 12 10 - 45 Units/L [facility] ALT 13 7 - 45 Units/L [facility] Blood specimen (specimen) 09/26/2020 6:00 AM TOBACCO CURER 09/26/2020 9:57 AM TOBACCO CURER Guru Estevez Jr., MD LAB BLOOD ORDERABLES Final Result Performing Organization Address [facility] de Phone Number [facility] [email or web address] [address] * CS GLUCOSE (09/26/2020 6:00 AM TOBACCO CURER) [facility] Signature Glucose 128 70 - 199 mg/dL [facility] Comment: Interpretive Data Fasting glucose >/= 126 mg/dl is diagnostic for diabetes. ?? Fasting is defined as no caloric intake [...] Current interpretive data was last revised 2017. Blood specimen (specimen) 09/26/2020 6:00 AM TOBACCO CURER 09/26/2020 9:57 AM TOBACCO CURER Guru Estevez Jr., MD LAB BLOOD ORDERABLES Final Result Performing Organization Address [facility] de Phone Number [facility] [email or web address] [address] * (ABNORMAL) CBC with auto differential (09/26/2020 6:00 AM TOBACCO CURER) [facility] WBC 6.0 3.8 - 9.9 K/cumm [facility] Hgb 10.8(L) 11.9 - 15.5 g/dL [facility] Hct 36.2 35.6 - 45.5 % [facility] Plt 260 150 - 400 K/cumm [facility] MPV 9.6 9.1 - 12.3 fL [facility] RBC 4.17 3.90 - 5.20 M/cumm [facility] MCV 86.8 81.3 - 96.4 fL [facility] MCH 25.9(L) 27.1 - 33.3 pg [facility] MCHC 29.8(L) 32.3 - 35.7 g/dL [facility] RDW CV Not Measured 11.1 - 14.9 % [facility] RDW SD Not Measured 35.7 - 48.1 fL [facility] NRBC abs 0.00 0.00 - 0.01 K/cumm [facility] Blood specimen (specimen) 09/26/2020 6:00 AM TOBACCO CURER 09/26/2020 9:57 AM TOBACCO CURER Guru Estevez Jr., MD LAB BLOOD ORDERABLES Final Result [facility] Department [place] [address] * Differential, auto (09/26/2020 6:00 AM TOBACCO CURER) [facility] Neutrophil abs 3.4 1.7 - 6.5 K/cumm [facility] Imm gran abs 0.0 0.0 - 0.1 K/cumm [facility] Lymphocyte abs 1.9 0.8 - 3.3 K/cumm [facility] Monocyte abs 0.7 0.2 - 0.8 K/cumm [facility] Eosinophil abs 0.1 0.0 - 0.5 K/cumm [facility] Basophil abs 0.0 0.0 - 0.1 K/cumm [facility] Neutrophil pct 56.5 % [facility] Comment: Interpretive Data Percent cell count reference ranges are not reported, since discordance with absolute values may lead to misinterpretation of CBC data. Current Interpretive Data was last revised on 2017. Imm gran pct 0.2 % [facility] Comment: Interpretive Data Percent cell count reference ranges are not reported, since discordance with absolute values may lead to misinterpretation of CBC data. Current Interpretive Data was last revised on 2017. Lymphocyte pct 31.3 % [facility] Comment: Interpretive Data Percent cell count reference ranges are not reported, since discordance with absolute values may lead to misinterpretation of CBC data. Current Interpretive Data was last revised on 2017. Monocyte pct 10.9 % [facility] Comment: Interpretive Data Percent cell count reference ranges are not reported, since discordance with absolute values may lead to misinterpretation of CBC data. Current Interpretive Data was last revised on 2017. Eosinophil pct 0.8 % [facility] Comment: Interpretive Data Percent cell count reference ranges are not reported, since discordance with absolute values may lead to misinterpretation of CBC data. Current Interpretive Data was last revised on 2017. Basophil pct 0.3 % [facility] Comment: Interpretive Data Percent cell count reference ranges are not reported, since discordance with absolute values may lead to misinterpretation of CBC data. Current Interpretive Data was last revised on 2017. Blood specimen (specimen) 09/26/2020 6:00 AM TOBACCO CURER 09/26/2020 9:57 AM TOBACCO CURER us Guru Estevez Jr., MD LAB BLOOD ORDERABLES Final Result [facility] Department [place] [address] * (ABNORMAL) Comprehensive metabolic panel, without glucose (Outreach) (09/22/2020 5:58 AM TOBACCO CURER) Sodium 140 135 - 145 mmol/L [facility] Potassium, pl 3.3 3.3 - 4.9 mmol/L [facility] Chloride 94(L) 97 - 110 mmol/L [facility] CO2 40(H) 22 - 32 mmol/L [facility] Anion gap 6 2 - 15 mmol/L [facility] BUN 11 8 - 25 mg/dL [facility] Creatinine 0.55(L) 0.60 - 1.10 mg/dL [facility] Calcium 9.7 8.5 - 10.3 mg/dL [facility] Protein, pl 6.5 6.5 - 8.5 g/dL [facility] Albumin 3.7 3.5 - 5.0 g/dL [facility] Bilirubin, total 0.2 0.1 - 1.2 mg/dL [facility] Alk phos 99 40 - 130 Units/L [facility] AST 15 10 - 45 Units/L [facility] ALT 13 7 - 45 Units/L [facility] Blood specimen (specimen) 09/22/2020 5:58 AM TOBACCO CURER 09/22/2020 1:05 PM TOBACCO CURER us Guru Estevez Jr., MD LAB BLOOD ORDERABLES Final Result [facility] Department [place] [address] * CS GLUCOSE (09/22/2020 5:58 AM TOBACCO CURER) [facility] Glucose 112 70 - 199 mg/dL [facility] Comment: Interpretive Data Fasting glucose >/= 126 mg/dl is diagnostic for diabetes. ?? Fasting is defined as no caloric intake [...] Current interpretive data was last revised 2017. Blood specimen (specimen) 09/22/2020 5:58 AM TOBACCO CURER 09/22/2020 1:05 PM TOBACCO CURER us Guru Estevez Jr., MD LAB BLOOD ORDERABLES Final Result [facility] Department [place] [address] * Differential, auto (09/22/2020 5:58 AM TOBACCO CURER) Neutrophil abs 3.9 1.7 - 6.5 K/cumm [facility] Imm gran abs 0.0 0.0 - 0.1 K/cumm [facility] Lymphocyte abs 1.8 0.8 - 3.3 K/cumm [facility] Monocyte abs 0.7 0.2 - 0.8 K/cumm [facility] Eosinophil abs 0.1 0.0 - 0.5 K/cumm [facility] Basophil abs 0.0 0.0 - 0.1 K/cumm [facility] Neutrophil pct 59.8 % [facility] Comment: Interpretive Data Percent cell count reference ranges are not reported, since discordance with absolute values may lead to misinterpretation of CBC data. Current Interpretive Data was last revised on 2017. Imm gran pct 0.5 % [facility] Comment: Interpretive Data Percent cell count reference ranges are not reported, since discordance with absolute values may lead to misinterpretation of CBC data. Current Interpretive Data was last revised on 2017. Lymphocyte pct 28.3 % [facility] Comment: Interpretive Data Percent cell count reference ranges are not reported, since discordance with absolute values may lead to misinterpretation of CBC data. Current Interpretive Data was last revised on 2017. Monocyte pct 10.1 % [facility] Comment: Interpretive Data Percent cell count reference ranges are not reported, since discordance with absolute values may lead to misinterpretation of CBC data. Current Interpretive Data was last revised on 2017. Eosinophil pct 1.1 % [facility] Comment: Interpretive Data Percent cell count reference ranges are not reported, since discordance with absolute values may lead to misinterpretation of CBC data. Current Interpretive Data was last revised on 2017. Basophil pct 0.2 % [facility] Comment: Interpretive Data Percent cell count reference ranges are not reported, since discordance with absolute values may lead to misinterpretation of CBC data. Current Interpretive Data was last revised on 2017. Blood specimen (specimen) 09/22/2020 5:58 AM TOBACCO CURER 09/22/2020 1:05 PM TOBACCO CURER Guru Estevez Jr., MD LAB BLOOD ORDERABLES Final Result Performing Organization Address City/[facility]/ZIP Co de Phone Number [facility] Department [place] [address] * (ABNORMAL) CBC with auto differential (09/22/2020 5:58 AM TOBACCO CURER) WBC 6.4 3.8 - 9.9 K/cumm [facility] Hgb 11.3(L) 11.9 - 15.5 g/dL [facility] Hct 36.6 35.6 - 45.5 % [facility] Plt 275 150 - 400 K/cumm [facility] MPV 10.0 9.1 - 12.3 fL [facility] RBC 4.24 3.90 - 5.20 M/cumm [facility] MCV 86.3 81.3 - 96.4 fL [facility] MCH 26.7(L) 27.1 - 33.3 pg [facility] MCHC 30.9(L) 32.3 - 35.7 g/dL [facility] RDW CV 24.9(H) 11.1 - 14.9 % [facility] RDW SD 76.6(H) 35.7 - 48.1 fL [facility] NRBC abs 0.00 0.00 - 0.01 K/cumm [facility] Blood specimen (specimen) 09/22/2020 5:58 AM TOBACCO CURER 09/22/2020 1:05 PM TOBACCO CURER Guru Estevez Jr., MD LAB BLOOD ORDERABLES Final Result Performing Organization Address City/[facility]/ZIP Co de Phone Number [facility] Department [place] [address] * (ABNORMAL) Comprehensive metabolic panel, without glucose (Outreach) (09/19/2020 6:07 AM TOBACCO CURER) Pathologist [facility] Sodium 143 135 - 145 mmol/L [facility] Potassium, pl 3.3 3.3 - 4.9 mmol/L [facility] Chloride 95(L) 97 - 110 mmol/L [facility] CO2 39(H) 22 - 32 mmol/L [facility] Anion gap 9 2 - 15 mmol/L [facility] BUN 13 8 - 25 mg/dL [facility] Creatinine 0.53(L) 0.60 - 1.10 mg/dL [facility] Calcium 10.0 8.5 - 10.3 mg/dL [facility] Protein, pl 7.3 6.5 - 8.5 g/dL [facility] Albumin 4.1 3.5 - 5.0 g/dL [facility] Bilirubin, total 0.3 0.1 - 1.2 mg/dL [facility] Alk phos 111 40 - 130 Units/L [facility] AST 14 10 - 45 Units/L [facility] ALT 13 7 - 45 Units/L [facility] Blood specimen (specimen) 09/19/2020 6:07 AM TOBACCO CURER 09/19/2020 10:26 AM TOBACCO CURER Guru Estevez Jr., MD LAB BLOOD ORDERABLES Final Result [facility] Department [place] [address] * CS GLUCOSE (09/19/2020 6:07 AM TOBACCO CURER) Pathologist [facility] Glucose 120 70 - 199 mg/dL [facility] Comment: Interpretive Data Fasting glucose >/= 126 mg/dl is diagnostic for diabetes. ?? Fasting is defined as no caloric intake [...] Current interpretive data was last revised 2017. Blood specimen (specimen) 09/19/2020 6:07 AM TOBACCO CURER 09/19/2020 10:26 AM TOBACCO CURER Guru Estevez Jr., MD LAB BLOOD ORDERABLES Final Result [facility] [place] [address] * Differential, auto (09/19/2020 6:07 AM TOBACCO CURER) Neutrophil abs 3.0 1.7 - 6.5 K/cumm [facility] Imm gran abs 0.0 0.0 - 0.1 K/cumm [facility] Lymphocyte abs 1.9 0.8 - 3.3 K/cumm [facility] Monocyte abs 0.5 0.2 - 0.8 K/cumm [facility] Eosinophil abs 0.0 0.0 - 0.5 K/cumm [facility] Basophil abs 0.0 0.0 - 0.1 K/cumm [facility] Neutrophil pct 54.5 % [facility] Comment: Interpretive Data Percent cell count reference ranges are not reported, since discordance with absolute values may lead to misinterpretation of CBC data. Current Interpretive Data was last revised on 2017. Imm gran pct 0.4 % [facility] Comment: Interpretive Data Percent cell count reference ranges are not reported, since discordance with absolute values may lead to misinterpretation of CBC data. Current Interpretive Data was last revised on 2017. Lymphocyte pct 34.4 % [facility] Comment: Interpretive Data Percent cell count reference ranges are not reported, since discordance with absolute values may lead to misinterpretation of CBC data. Current Interpretive Data was last revised on 2017. Monocyte pct 9.8 % [facility] Comment: Interpretive Data Percent cell count reference ranges are not reported, since discordance with absolute values may lead to misinterpretation of CBC data. Current Interpretive Data was last revised on 2017. Eosinophil pct 0.5 % [facility] Comment: Interpretive Data Percent cell count reference ranges are not reported, since discordance with absolute values may lead to misinterpretation of CBC data. Current Interpretive Data was last revised on 2017. Basophil pct 0.4 % [facility] Comment: Interpretive Data Percent cell count reference ranges are not reported, since discordance with absolute values may lead to misinterpretation of CBC data. Current Interpretive Data was last revised on 2017. Blood specimen (specimen) 09/19/2020 6:07 AM TOBACCO CURER 09/19/2020 10:26 AM TOBACCO CURER Guru Estevez Jr., MD LAB BLOOD ORDERABLES Final Result [facility] [place] [address] * (ABNORMAL) CBC with auto differential (09/19/2020 6:07 AM TOBACCO CURER) WBC 5.5 3.8 - 9.9 K/cumm [facility] Hgb 12.0 11.9 - 15.5 g/dL [facility] Hct 39.9 35.6 - 45.5 % [facility] Plt 287 150 - 400 K/cumm [facility] MPV 10.1 9.1 - 12.3 fL [facility] RBC 4.66 3.90 - 5.20 M/cumm [facility] MCV 85.6 81.3 - 96.4 fL [facility] MCH 25.8(L) 27.1 - 33.3 pg [facility] MCHC 30.1(L) 32.3 - 35.7 g/dL [facility] RDW CV 25.3(H) 11.1 - 14.9 % [facility] RDW SD 77.1(H) 35.7 - 48.1 fL [facility] NRBC abs 0.00 0.00 - 0.01 K/cumm [facility] Blood specimen (specimen) 09/19/2020 6:07 AM TOBACCO CURER 09/19/2020 10:26 AM TOBACCO CURER Guru Estevez Jr., MD LAB BLOOD ORDERABLES Final Result Performing Organization Address City/[facility] Co de Phone Number [facility] [place] [address] * Vitamin D 25 hydroxy (09/17/2020 7:25 AM TOBACCO CURER) [facility] Vitamin D 25-OH 31 30 - 80 ng/mL [facility] Blood specimen (specimen) 09/17/2020 7:25 AM TOBACCO CURER 09/17/2020 9:03 AM TOBACCO CURER Guru Estevez Jr., MD LAB BLOOD ORDERABLES Final Result Performing Organization Address [facility] de Phone Number [facility] Department [place] [address] * (ABNORMAL) Comprehensive metabolic panel, without glucose (Outreach) (09/17/2020 7:25 AM TOBACCO CURER) [facility] Sodium 140 135 - 145 mmol/L [facility] Potassium, pl 3.4 3.3 - 4.9 mmol/L [facility] Chloride 94(L) 97 - 110 mmol/L [facility] CO2 41(H) 22 - 32 mmol/L [facility] Anion gap 5 2 - 15 mmol/L [facility] BUN 14 8 - 25 mg/dL [facility] Creatinine 0.53(L) 0.60 - 1.10 mg/dL [facility] Calcium 9.8 8.5 - 10.3 mg/dL [facility] Protein, pl 7.2 6.5 - 8.5 g/dL [facility] Albumin 3.9 3.5 - 5.0 g/dL [facility] Bilirubin, total 0.3 0.1 - 1.2 mg/dL [facility] Alk phos 108 40 - 130 Units/L [facility] AST 12 10 - 45 Units/L [facility] ALT 13 7 - 45 Units/L [facility] Blood specimen (specimen) 09/17/2020 7:25 AM TOBACCO CURER 09/17/2020 9:03 AM TOBACCO CURER Guru Estevez Jr., MD LAB BLOOD ORDERABLES Final Result Performing Organization Address [facility] de Phone Number [facility] Department [place] [address] * CS GLUCOSE (09/17/2020 7:25 AM TOBACCO CURER) Glucose 118 70 - 199 mg/dL [facility] Comment: Interpretive Data Fasting glucose >/= 126 mg/dl is diagnostic for diabetes. ?? Fasting is defined as no caloric intake [...] Current interpretive data was last revised 2017. Blood specimen (specimen) 09/17/2020 7:25 AM TOBACCO CURER 09/17/2020 9:03 AM TOBACCO CURER Guru Estevez Jr., MD LAB BLOOD ORDERABLES Final Result Performing Organization Address [facility] de Phone Number [facility] Department [place] [address] * Differential, auto (09/17/2020 7:25 AM TOBACCO CURER) Neutrophil abs 2.9 1.7 - 6.5 K/cumm [facility] Imm gran abs 0.0 0.0 - 0.1 K/cumm [facility] Lymphocyte abs 1.8 0.8 - 3.3 K/cumm [facility] Monocyte abs 0.5 0.2 - 0.8 K/cumm [facility] Eosinophil abs 0.0 0.0 - 0.5 K/cumm [facility] Basophil abs 0.0 0.0 - 0.1 K/cumm [facility] Neutrophil pct 55.6 % [facility] Comment: Interpretive Data Percent cell count reference ranges are not reported, since discordance with absolute values may lead to misinterpretation of CBC data. Current Interpretive Data was last revised on 2017. Imm gran pct 0.2 % [facility] Comment: Interpretive Data Percent cell count reference ranges are not reported, since discordance with absolute values may lead to misinterpretation of CBC data. Current Interpretive Data was last revised on 2017. Lymphocyte pct 34.3 % [facility] Comment: Interpretive Data Percent cell count reference ranges are not reported, since discordance with absolute values may lead to misinterpretation of CBC data. Current Interpretive Data was last revised on 2017. Monocyte pct 8.9 % [facility] Comment: Interpretive Data Percent cell count reference ranges are not reported, since discordance with absolute values may lead to misinterpretation of CBC data. Current Interpretive Data was last revised on 2017. Eosinophil pct 0.8 % [facility] Comment: Interpretive Data Percent cell count reference ranges are not reported, since discordance with absolute values may lead to misinterpretation of CBC data. Current Interpretive Data was last revised on 2017. Basophil pct 0.2 % [facility] Comment: Interpretive Data Percent cell count reference ranges are not reported, since discordance with absolute values may lead to misinterpretation of CBC data. Current Interpretive Data was last revised on 2017. Blood specimen (specimen) 09/17/2020 7:25 AM TOBACCO CURER 09/17/2020 9:03 AM TOBACCO CURER us Guru Estevez Jr., MD LAB BLOOD ORDERABLES Final Result [facility] Department [place] [address] * (ABNORMAL) CBC with auto differential (09/17/2020 7:25 AM TOBACCO CURER) WBC 5.3 3.8 - 9.9 K/cumm [facility] Hgb 11.4(L) 11.9 - 15.5 g/dL [facility] Hct 37.3 35.6 - 45.5 % [facility] Plt 248 150 - 400 K/cumm [facility] MPV 9.7 9.1 - 12.3 fL [facility] RBC 4.49 3.90 - 5.20 M/cumm [facility] MCV 83.1 81.3 - 96.4 fL [facility] MCH 25.4(L) 27.1 - 33.3 pg [facility] MCHC 30.6(L) 32.3 - 35.7 g/dL [facility] RDW CV 24.6(H) 11.1 - 14.9 % [facility] RDW SD 72.8(H) 35.7 - 48.1 fL [facility] NRBC abs 0.00 0.00 - 0.01 K/cumm [facility] Blood specimen (specimen) 09/17/2020 7:25 AM TOBACCO CURER 09/17/2020 9:03 AM TOBACCO CURER Guru Estevez Jr., MD LAB BLOOD ORDERABLES Final Result Performing Organization Address City/State/[facility] Co de Phone Number [facility] Department [place] [address] documented in this encounter Visit Diagnoses Not on filedocumented in this encounter Care Teams Touch Up Worker Relationship Specialty Start Date End Date Jason Wiggins MD [address] [facility] [address] [place] [address] PCP - General 08/27/20 12/20/20 documented as of this encounter
--- OUTSIDE RECORDS SUMMARY | 2024-08-05 02:31 | XMS_ITS | Encounter Summary ---
Author Organization [facility] Address [address] [place] [address] Care Team Providers Care Advertising Assistant Name Role Phone Eusebio Nagy MD Primary Care Provider + [phone] Encounter Details Date Type Department Care Team (Late st Contact Info) Description 01/09/2021 Orders Only [facility] [address] [place] [address] [place] [id number] [place] [address] Social History Tobacco Use Types Packs/Day Years Used Date Smoking Tobacco: Former Cigarettes Q uit: 08/23/2004 Comments No Sex and Gender Information Value Date Recorded Sex Assigned at Not on file 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 Gender Identity Not on file Sexual Orientation Not on file documented as of this encounter Ordered Prescriptions Prescription Sig Dispense Quantity Refills Last Filled Start Date End Date traMADoL (ULTRAM) 50 mg tablet Take 1 tablet (50 mg total) by mouth every 8 (eight) hours as needed for pain 40 tablet 01/09/2021 01/31/2021 traMADoL (ULTRAM) 50 mg tablet Take 1 tablet (50 mg total) by mouth every 8 (eight) hours as needed for pain 40 tablet 01/09/2021 01/09/2021 documented in this encounter Plan of Treatment Not on file documented as of this encounter Visit Diagnoses Not on filedocumented in this encounter Discontinued Medications Medication Sig Discontinue Reason Start Date End Da te traMADoL (ULTRAM) 50 mg tablet Take 1 tablet (50 mg total) by mouth every 8 (eight) hours as needed for pain 01/09/2021 01/09/2021 documented as of this encounter Care Teams Advertising Assistant Relationship Specialty Start Date End Date Eusebio Nagy MD PCP - General Internal Medicine 12/21/20 documented as of this encounter
--- OUTSIDE RECORDS SUMMARY | 2024-08-05 02:31 | XMS_ITS | Encounter Summary ---
Author Organization [facility] Address [address] [place] [address] Care Team Providers Care Mortgage Counselor Name Role Phone Eusebio Nagy MD Primary Care Provider + [phone] Reason for Visit * Reason Onset Date Comments Neck Pain 01/27/2021 Arm Pain 01/27/2021 Encounter Details Date Type Department Care Team (Late st Contact Info) Description 01/27/2021 Telephone [facility] [id number] [address] [place] [id number] [facility] [address] [place] [address] Neck Pain; Arm Pain Social History Tobacco Use Types Packs/Day Years Used Date Smoking Tobacco: Former Cigarettes Q uit: 08/23/2004 Comments No Sex and Gender Information Value Date Recorded Sex Assigned at Not on file 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 * Telephone Encounter - Lori Muñoz - 02/01/2021 10:57 AM CDT Called patient, phone not accepting mook * Telephone Encounter - Indio Rondon MD - 01/31/2021 6:07 PM CDT Sent. * Telephone Encounter - Bere Jacinto PA - 01/27/2021 4:30 PM CDT Please see below. You sent patient one time dose of tramadol and referred to pain management. They have appointment with pain management next week. Thanks! * Telephone Encounter - Scott Cornejo - 01/27/2021 2:32 PM CDT Patient asking if she can get refill on Tramadol. * Telephone Encounter - Bere Jacinto PA - 01/27/2021 1:18 PM CDT Patient was referred to pain management and has apt next week. They will be able to better control her pain Thanks! * Telephone Encounter - Scott Cornejo - 01/27/2021 10:20 AM CDT Patient says Tramadol isn't helping her pain. She is having neck and arm pains. Alberto Ivey documented in this encounter Plan of Treatment Not on file documented as of this encounter Visit Diagnoses Not on filedocumented in this encounter Care Teams Mortgage Counselor Relationship Specialty Start Date End Date Eusebio Nagy MD PCP - General Internal Medicine 12/21/20 documented as of this encounter
--- OUTSIDE RECORDS SUMMARY | 2024-08-05 02:31 | XMS_ITS | Encounter Summary ---
Author Organization [facility] Address [address] [place] [address] Care Team Providers Care Government Affairs Fellow Name Role Phone Linda Nagy MD Primary Care Provider [phone] To Caballero MD Unavailable [phone] Reason for Visit * Reason Comments Back Pain Fall Encounter Details Date Type Department Care Team (Latest Contact Info) Description 09/23/2021 11:51 AM EMAIL MARKETER - 2021 1:05 PM EMAIL MARKETER Hospital Encounter [facility] [address] [place] [address] Breanna Sutton MD [address] [place] [address] Bere Magana MD [address] [facility] [place] [phone] [place] [address] Closed wedge compression fracture of L2 vertebra, initial encounter ([facility]) (Primary Dx); Diagnosis unknown; Frail elderly; Fall, initial encounter; Anemia, unspecified type; Elevated alkaline phosphatase level Discharge Disposition: Discharge to SNF Social History Tobacco Use Types Packs/Day Years Used Date Smoking Tobacco: Former Cigarettes Q uit: 08/23/2004 Comments No Sex and Gender Information Value Date Recorded Sex Assigned at Not on file Legal Sex Female 11:40 AM EMAIL MARKETER Gender Identity Not on file Sexual Orientation Not on file documented as of this encounter Last Filed Vital Signs Vital Sign Reading Time Taken Comments Blood Pressure 143/96 2021 9:58 AM EMAIL MARKETER Pulse 104 2021 9:58 AM EMAIL MARKETER Temperature 36.9 ??C (98.4 ??F) 2021 9:10 AM CS T Respiratory Rate 20 2021 9:10 AM EMAIL MARKETER Oxygen Saturation 94% 2021 9:58 AM EMAIL MARKETER Inhaled Oxygen Concentration - - Weight 58 kg (127 lb 13.9 oz) 09/23/2021 11:35 P M EMAIL MARKETER Height 162.6 cm (5' 4 ) 09/23/2021 11:35 PM EMAIL MARKETER Body Mass Index 21.95 09/23/2021 11:35 PM EMAIL MARKETER documented in this encounter Discharge Diagnoses Diagnosis Stable burst fracture of second lumbar vertebra, initial encounter for closed fracture (HCC) - STABLE BURST FRACTURE OF SECOND LUMBAR VERTEBRA, INITIAL ENCOUNTER FOR CLOSED FRACTURE Chronic diastolic (congestive) heart failure (HCC) - CHRONIC DIASTOLIC (CONGESTIVE) HEART FAILURE Unspecified injury of head, initial encounter - UNSPECIFIED INJURY OF HEAD, INITIAL ENCOUNTER Unspecified superficial injury of lower back and pelvis, initial encounter - UNSPECIFIED SUPERFICIAL INJURY OF LOWER BACK AND PELVIS, INITIAL ENCOUNTER Fall on same level from slipping, tripping and stumbling without subsequent striking against object, initial encounter - FALL ON SAME LEVEL FROM SLIPPING, TRIPPING AND STUMBLING WITHOUT SUBSEQUENT STRIKING AGAINST OBJECT, Chronic obstructive pulmonary disease, unspecified (HCC) - CHRONIC OBSTRUCTIVE PULMONARY DISEASE, UNSPECIFIED Gastro-esophageal reflux disease without esophagitis - GASTRO-ESOPHAGEAL REFLUX DISEASE WITHOUT ESOPHAGITIS Cervicalgia - CERVICALGIA Pain in left shoulder - PAIN IN LEFT SHOULDER Pain in left hip - PAIN IN LEFT HIP Contact with and (suspected) exposure to covid-19 - CONTACT WITH AND (SUSPECTED) EXPOSURE TO COVID-19 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/HCC) (HCC) - HYPERTENSIVE HEART DISEASE WITH HEART FAILURE Unspecified hypertensive heart disease with heart failure Low back pain, unspecified - LOW BACK PAIN, UNSPECIFIED Other chronic pain - OTHER CHRONIC PAIN Coma scale, best motor response, obeys commands, at arrival to emergency department - COMA SCALE, BEST MOTOR RESPONSE, OBEYS COMMANDS, AT ARRIVAL TO EMERGENCY DEPARTMENT Coma scale, eyes open, spontaneous, at arrival to emergency department - COMA SCALE, EYES OPEN, SPONTANEOUS, AT ARRIVAL TO EMERGENCY DEPARTMENT Coma scale, best verbal response, oriented, at arrival to emergency department - COMA SCALE, BEST VERBAL RESPONSE, ORIENTED, AT ARRIVAL TO EMERGENCY DEPARTMENT Other residential (current) drug therapy - OTHER SHELTER (CURRENT) DRUG THERAPY Dependence on supplemental oxygen - DEPENDENCE ON SUPPLEMENTAL OXYGEN Personal history of nicotine dependence - PERSONAL HISTORY OF NICOTINE DEPENDENCE documented in this encounter Discharge Summaries * Yael Momin MATTRESS AND BOXSPRINGS SUPERVISOR - 2021 12:04 PM CST [facility] Geriatric Trauma Surgery Inpatient Discharge Summary This is a clinical resume for patient Phoebe Hillman for attending Bere Magana MD Admission Date: 09/23/2021 Admitting Provider: Bere Magana MD Discharge Date: 2021 Hospitalization: Total duration of encounter: 4 days Team: Geriatric Trauma Surgery Primary Care Provider: Linda Nagy MD Discharge Diagnosis(es): Principal Problem: Diagnosis unknown Resolved Problems: No resolved hospital problems. Hospital Course: Clinical Course: improved History of Present Illness: Phoebe Hillman is a 80 y.o. 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 Patient reported??she fell after she tripped on her oxygen tubing, landing on her left side, and unable to get up after. +HS but denies LOC. OSH imagingrevealed CT H (-), CT C/T/L (+) L2 burst fx w/ 20% posterior loss and 3mm retropulsion. XR pelvis, L hip, L shoulder (-). Patient was transferred to [facility] for ortho evaluation, and arrived with L spinebrace in place. On arrival the patient was HDS, GCS 15, and protecting airway with c/o of chronic neck pain (hx of c-spine fx), and some lumbar pain. Ortho spine consult. Non op management. Patient ad mitted to [facility] for further management and monitoring. Patient remained non operative. Pain controlled. Patient progressed with therapy and now medically ready to discharge. Active Issues Requiring Follow Up: # L2 burst fx w/ 20% posterior loss and 3mm retropulsion - Orthospine consult - non -op - L spine precautions. ??No heavy lumbar lifting, bending, twisting. - PT/OT - Pain control - No IR consult for Kyphoplasty or cement augmentation at this time - call ortho spine if patient develops any concerning changes to their neurologic exam such as new weakness or loss of bowel/bladder function - has brace for comfort - Follow up with Orthopedic Surgery as scheduled 11/01/21 ?? #COPD - home O2 3-4L - Home Albuterol inhaler and Atrovent PRN, Spiriva and Breo daily ?? #CHF - Echo 08/25 EF 65% No AR seen, Mild MR, no , no MS, mild TV regurgitation, normal PV. ?? #HTN - Home HCTZ 12.5mg daily - Home Metoprolol 25mg BID ?? #Acute on Chronic pain - Home Gabapentin 100mg qHS - Tylenol 1000 mg q6h - Oxycodone 5mg q 4h PRN ?? #Right buttock wound -POA - Was already evaluated by PCP and put on clindamycin PO - wound care consult - Continued inpatient - Follow up with PCP in 1-2 weeks ?? Operative Procedures Performed: Procedure name not found. No surgery found Consultations: orthopedic surgery Discharge Physical Exam: Discharge Condition: good Pulse: 104 Resp: 20 BP: 143/96 Temp: 36.9 ??C (98.4 ??F) Weight: 58 kg (127 lb 13.9 oz) Constitutional: well developed, well nourished, cooperative and no apparent distress Head: normocephalic, without obvious abnormality Neurologic: oriented to 3 sensation intact all extremities motor 5/5 all extremities Eyes: conjunctivae/corneas clear. PERRL HENT: external aural meatus intact with no visable drainage from the ear Neck: supple, symmetrical, trachea midline Chest: normal appearance, no masses or tenderness Respiratory: normal chest rise and fall Cardiovascular: regular rate and regular rhythm Gastrointestinal: soft, non-tender; bowel sounds present; no masses, no organomegaly Musculoskeletal: extremities normal, warm and well-perfused Skin: skin color, texture, turgor normal. No rashes or lesions, except right buttock ulcer Diet: Diet Instructions Adult Discharge Diet Diet Type: Return to previous diet Regular diet. Add nutrition supplements (ensure, boost, instant carnation breakfast) two to three times daily until appetite returns. Discharge Disposition: Discharge to an IP Rehab facility Code Status at Discharge: Full Activity: Activity Instructions Discharge Activity: Additional Activity Restrictions: Lumbar spine precautions. No heavy lumbar lifting, bending, twisting. Use straight back chair. No recliners. No twisting st hips/torso (Keep their hips and shoulders lined up) Wear brace for comfort Discharge Activity: Driving restrictions -Do not drive. Discharge Activity: Lifting restrictions - No heavy lifting. Discharge Activity: Stairs -You may climb stairs with assist Discharge Activity: Walking -You may walk as tolerated with assist. Lumbar spine precautions. Brace for comfort -Continue exercises and safety precaution instructed by PT/OT -Walk three times daily and as tolerated. -Up to the chair three times daily and as tolerated. -Up for all meals Weight bearing status Restrictions RUE: Weight Bearing as Tolerated Restrictions LUE: Weight Bearing as Tolerated Restrictions RLE: Weight Bearing as Tolerated Restrictions LLE: Weight Bearing as Tolerated activity as tolerated Right Upper ExtremityWeight bearing as tolerated Left Upper ExtremityWeight bearing as tolerated Right Lower ExtremityWeight bearing as tolerated Left Lower ExtremityWeight bearing as tolerated Wound Care: Able to bathe self, groom, Carries out hygiene routine on a regular basis and Requires assistance none needed Discharge Medications: Your medication list START taking these medications bisacodyL 10 mg suppository Insert 1 suppository (10 mg total) into the rectum daily as needed for constipation Commonly known as: DULCOLAX cyclobenzaprine 5 mg tablet Take 1 tablet (5 mg total) by mouth 3 (three) times a day Commonly known as: FLEXERIL lidocaine 5 % Place 2 patches on the skin daily Remove & discard patch within 12 hours or as directed by MD. Commonly known as: LIDODERM polyethylene glycol 17 gram packet Take 1 packet (17 g total) by mouth daily Commonly known as: MIRALAX Start taking on: September 28, 2021 senna-docusate 8.6-50 mg Take 2 tablets by mouth 2 (two) times a day Commonly known as: PERICOLACE CHANGE how you take these medications acetaminophen 500 mg capsule Take 2 capsules (1,000 mg total) by mouth every 6 (six) hours What changed: medication strength how much to take when to take this reasons to take this clindamycin 300 mg capsule Take 1 capsule (300 mg total) by mouth 4 (four) times a day Commonly known as: CLEOCIN What changed: how much to take how to take this when to take this gabapentin 300 mg capsule Take 1 capsule (300 mg total) by mouth nightly Commonly known as: NEURONTIN What changed: medication strength how much to take CONTINUE taking these medications Advair Diskus 250-50 mcg/dose diskus inhaler Generic drug: fluticasone propion-salmeteroL albuterol HFA 90 mcg/actuation inhaler Inhale 2 puffs every 4 (four) hours as needed for wheezing Commonly known as: PROVENTIL HFA,VENTOLIN HFA,PROAIR HFA hydroCHLOROthiazide 12.5 mg tablet Take 1 tablet (12.5 mg total) by mouth daily Commonly known as: HYDRODIURIL ipratropium 17 mcg/actuation inhaler Inhale 2 puffs every 4 (four) hours as needed for wheezing Commonly known as: ATROVENT HFA metoprolol tartrate 25 mg immediate release tablet Commonly known as: LOPRESSOR oxyCODONE 5 mg immediate release tablet Take 1 tablet (5 mg total) by mouth every 4 (four) hours as needed for pain Commonly known as: ROXICODONE pantoprazole DR 40 mg EC tablet Take 1 tablet (40 mg total) by mouth daily Commonly known as: PROTONIX tiotropium bromide 2.5 mcg/actuation inhaler Commonly known as: SPIRIVA RESPIMAT STOP taking these medications amitriptyline 25 mg tablet Commonly known as: ELAVIL busPIRone 10 mg tablet Commonly known as: BUSPAR cholecalciferol 2000 unit capsule Commonly known as: VITAMIN D-[address] 75 mg EC tablet Commonly known as: VOLTAREN fluticasone furoate-vilanteroL 100-25 mcg/dose diskus inhaler Commonly known as: BREO ELLIPTA metoprolol XL 100 mg 24 hr tablet Commonly known as: TOPROL-XL montelukast 10 mg tablet Commonly known as: SINGULAIR oxyCODONE-acetaminophen 10-325 mg per tablet Commonly known as: PERCOCET ramelteon 8 mg tablet Commonly known as: ROZEREM traMADoL 50 mg tablet Commonly known as: ULTRAM umeclidinium 62.5 mcg/actuation blister with device Commonly known as: INCRUSE ELLIPTA Discharge Instructions: Other Instructions Call provider for: Please contact the Trauma Department if any problems develop, please call the Trauma phone [phone] during the week or after hours, and ask to speak to the Trauma MATTRESS AND BOXSPRINGS SUPERVISOR or resident control systems technician. Please be aware all medications including narcotic pain medications cannot be called in over the phone. To refill, an appointment will need to be made with the appropriate medical or surgical service. You may follow up with your primary care physician for long-term management of medications and long-term medical conditions. For an appointment with the Trauma Clinic, Please call [phone] during normalbusiness hours. Call provider for: increased temperature -Temperature greater than 101 degrees F Call provider for: nausea, vomiting, diarrhea -If you have persistent nausea, vomiting or diarrhea that does not stop Call provider for: redness, tenderness, or signs of infection (pain, swelling, redness, odor or green/yellow discharge around incision site) Call provider for: severe uncontrolled pain Call provider for: any other concerns or questions For any questions or concerns about spine fracture contact Orthopedic Surgery [phone] Call provider if: you feel dizzy, very tired or like you may faint Care Instructions: No tub baths -No tub baths, whirlpools or swimming until your provider says it's ok. Care Instructions: Shower -You may shower with assist. Call your Surgeon???s office from 8:00am-3:30pm at for the following: * You have a fever of more than 101.5 degrees. * You have nausea, vomiting or diarrhea that does not stop. * You have pus or bad smelling drainage from your wound. * The pain in your stomach is very bad or gets a lot worse. * You feel dizzy, very tired or like you may faint. * You have hard time breathing. * You have any other concerns or questions Follow up Contact Information for Follow-ups Linda Nagy MD Specialty: Internal Medicine Relationship: PCP - General [address] [address] Next Steps: Follow up Instructions: Call for follow up with postal delivery officer in 1-2 weeks for hospital follow up and medication review Questions: To provider: LINDA NAGY Instructions for follow-up (appointment date and time): Call for follow up with postal delivery officer in 1-2 weeks for hospital follow up and medication review Future Appointments Date Time Provider Department Center 11/01/2021 1:00 PM Jeffrey Dow MD SPINE [facility] I spent 45 minutes completing this hospital discharge. Yael Momin NP 09/27/21 CC: Linda Nagy MD Cosigned by Morgan Bronson MD at 2021 4:15 PM EMAIL MARKETER L MARKETER L MARKETER documented in this encounter Medications at Time [...] for pain 30 tablet 2 10/28/19 22 bisacodyL (DULCOLAX) 10 mg suppositoryIndic ations:constipat ion Insert 1 suppository (10 mg total) into the rectum daily as needed for constipation 12 suppository 2 11/14/19 22 clindamycin (CLEOCIN) 300 mg capsuleIndicatio ns:Skin/Soft Tissue Infection Take 1 capsule (300 mg total) by mouth 4 (four) times a day 2 11/14/19 22 cyclobenzaprine (FLEXERIL) 5 mg tablet Take 1 tablet (5 mg total) by mouth 3 (three) times a day 30 tablet 2 11/14/19 22 gabapentin (NEURONTIN) 300 mg capsule Take 1 capsule (300 mg total) by mouth nightly 30 capsule 11 2 11/14/19 22 ipratropium (ATROVENT HFA) 17 mcg/actuation inhaler Inhale 2 puffs every 4 (four) hours as needed for wheezing 12.9 g 1 11/14/19 22 lidocaine (LIDODERM) 5 % Place 2 patches on the skin daily Remove & discard patch within 12 hours or as directed by 60 patch 2 11/14/19 22 metoprolol tartrate (LOPRESSOR) 25 mg immediate release tablet Take 25 mg by mouth 2 (two) times a day 1 11/14/[address] (PROTONIX) 40 mg EC tabletIndication s:Stress Ulcer Prophylaxis Take 1 tablet (40 mg total) by mouth daily 30 tablet 1 11/14/19 22 polyethylene glycol (MIRALAX) 17 gram packetIndication s:constipation Take 1 packet (17 g total) by mouth daily 2 11/14/19 22 senna-docusate (PERICOLACE) 8.6-50 mg Take 2 tablets by mouth 2 (two) times a day 2 11/14/19 22 documented as of this encounter Ordered Prescriptions Prescription Sig Dispense Quantity Refills Last Filled Start Date End Date acetaminophen 500 mg capsuleIndication s:Pain Take 2 capsules (1,000 mg total) by mouth every 6 (six) hours 30 tablet 2 oxyCODONE (ROXICODONE) 5 mg immediate release tabletIndications :Pain Take 1 tablet (5 mg total) by mouth every 4 (four) hours as needed for pain 30 tablet 2 10/28/19 22 senna-docusate (PERICOLACE) 8.6-50 mg Take 2 tablets by mouth 2 (two) times a day 2 11/14/19 22 polyethylene glycol (MIRALAX) 17 gram packetIndications :constipation Take 1 packet (17 g total) by mouth daily 2 11/14/19 22 lidocaine (LIDODERM) 5 % Place 2 patches on the skin daily Remove & discard patch within 12 hours or as directed by 60 patch 2 11/14/19 22 cyclobenzaprine (FLEXERIL) 5 mg tablet Take 1 tablet (5 mg total) by mouth 3 (three) times a day 30 tablet 2 11/14/19 22 bisacodyL (DULCOLAX) 10 mg suppositoryIndica tions:constipatio n Insert 1 suppository (10 mg total) into the rectum daily as needed for constipation 12 suppository 2 11/14/19 gabapentin (NEURONTIN) 300 mg capsule Take 1 capsule (300 mg total) by mouth nightly 30 capsule 11 2 11/14/19 22 clindamycin (CLEOCIN) 300 mg capsuleIndication s:Skin/Soft Tissue Infection Take 1 capsule (300 mg total) by mouth 4 (four) times a day 2 11/14/19 22 documented in this encounter Discharge Disposition Disposition Code Departure Means Destination Discharge to [facility] ([place], [place]) documented in this encounter Progress Notes * Nika Lawrence - 2021 9:39 AM CST Physical Therapy Progress Note NOTE: This is a summary note of the giron components of the treatment session. For full details, review chart for all flowsheets documented on by this physical therapy clinician on this date. Vital signs documented in vital signs flowsheet. Care plan progress documented in Care Plan Activity. For questions, please review the treatment team and contact the PT or MARGIN CLERK currently assigned to this patient. If a physical therapy clinician is not assigned to this patient, please call [phone]. 09/27/21 0939 General Session Type Treatment PT Received On 09/27/21 Safe Environment Arm Band Checked;Call Light within Reach;Session Completed Bedside;Patient found in Supine;Overbed Table within Reach (pt left in supine) Subjective Agreeable to Therapy Family/Caregiver Present No Precautions Precautions Fall risk;Spinal/Back Braces/Orthoses TLSO Precaution Comments PT wore mask, gloves. patient wore mask Activity Tolerance Activity Tolerance Comments Nancy/20 Pain Assessment Pain Assessment 0-10 Pain Score 3 Pain Location Back (Lumbar) Pain Orientation Generalized Cognition Arousal/Alertness Alert;Appropriate responses to stimuli Orientation Oriented X4 (person, place, time, situation) Following Commands Follows all commands and directions without difficulty Balance Balance Yes Static Sitting Balance Static Sitting-Balance Support No upper extremity supported;Feet supported Static Sitting-Sitting Surface Bed Static Sitting-Level of Assistance Independent Static Standing Balance Static Standing-Balance Support Bilateral upper extremity supported (w/w) Static Standing-Standing Surface Floor Static Standing-Level of Assistance Distant supervision Static Standing-Comment/# of Minutes safety Bed Mobility Bed Mobility Yes Bed Mobility 1 Bed Mobility From 1 Supine Bed Mobility Type 1 To and from Bed Mobility to 1 Edge of bed Level of Assistance 1 Distant Supervision Bed Mobility Comments 1 sup for safety. HOB elevated Transfers Transfer Yes Transfer 1 Transfer From 1 Sit Transfer Type 1 To and from Transfer to 1 Stand Technique 1 Sit to stand;Stand to sit Transfer Device 1 Wheeled walker Transfer Level of Assistance 1 Distant supervision Trials/Comments 1 safety Ambulation Functional Ambulation Category 3 Ambulation Yes Ambulation 1 Distance (ft) 1 150 Surface 1 Level tile Device 1 Wheeled walker Assistance 1 Distant supervision Gait: Requires verbal cues to 1 Pace activity Quality of Gait 1 decreased chava, short step length, limited hip extension Ambulation Comments 1 4, 10s standing rest breaks Stairs Stairs No Equipment Use Equipment Use Comments gait belt used for all OOB mobility Basic Mobility - 6 Click How much difficulty does the patient have: Turning over in bed 4 How much difficulty does the patient currently have: Sitting down and standing up from a chair witharms? 4 How much difficulty does the patient have: Moving from lying on back to sitting on the side of the bed? 3 How much difficulty does the patient have: Moving to and from a bed to a chair including wheelchair? 3 How much help does the patient currently need: Walk in hospital room? 3 How much help from another person does the patient currently need: Climbing 3-5 steps with a railing? 3 Total 6 Click Score (range 6-24) 20 Score Interpretation 43.99 Assessment Prognosis Good Problem List Pain;Decreased endurance;Impaired balance;Gait deviations Barriers to Discharge Current Mobility Status Plan Plan If this is the last note, consider this the discharge summary;Alter current plan Plan Comments update frequency Recommendation/Plan PT Recommendation/Plan Care Home Facility PT Recommendation/Plan Comments pt agreeable with PT POC PT Frequency 3-5x/wk Treatment/Interventions Balance Training;Gait training;Functional transfer training;Stair training Progress Progressing toward goals PT - Next Appointment 09/29/21 Multi-Disciplinary Problems (from Physical Therapy) Active Problems Problem: Mobility Start Date: 09/25/21 Goal Start Date Expected End Date End Date STG - Patient will ambulate 150ft Ind, LRAD 09/25/21 10/09/21 -- Goal Start Date Expected End Date End Date STG - Patient will ascend and descend 2 stairs, no handrail, LRAD, with the following level of assist: Ind 09/25/21 10/09/21 -- Problem: Transfers Start Date: 09/25/21 Goal Start Date Expected End Date End Date STG - Transfer from bed to chair Ind LRAD 09/25/21 10/09/21 -- Problem: PT Misc Start Date: 09/25/21 Goal Start Date Expected End Date End Date PT LTG - Improve 5xSTS to cut off score of 17 seconds 09/25/21 10/16/21 -- For questions, please review the treatment team and contact the PT or MARGIN CLERK currently assigned to this patient. If a physical therapy clinician is not assigned to this patient, please call [phone]. Cosigned by Linda Gonsalez, PT at 2021 4:30 PM EMAIL MARKETER L MARKETER L MARKETER * Savanna Ellison MSW - 2021 8:53 AM CST 09/27/21 0851 Discharge Summary Chart reviewed For Medical Necessity Does patient have a planned readmission to hospital planned? No Discharge Disposition SNF, Commercial Insurance, Short term Skilled Specify Facility [facility] Contact Number [phone] (Trista) Discharge Records Transfer Form Completed Discharge Additional Assistance Does the patient need discharge transport arranged? Yes Has discharge transport been arranged? Yes Details of Transportation Quan ([id number]) What day is the transport expected? 09/27/21 What time is the transport expected? 1200 Discharge Transportation Communication Mode of transport has been discussed with the patient/family. All are agreeable to the plan and understand their responsibilities to ensure the safe transfer. No further CM/SW intervention is anticipated at this time. Post Discharge Care Provider Post Discharge Care Plan DC Summary has been faxed to next level of care provider (see Follow Up Providers) Treatment team has medically cleared patient is discharge. Patient has been accepted to [facility]. RN informed to call report to [phone] (Milvia Lowery). SW has faxed discharge paperwork to facility. Patient/family are aware and are agreeable to discharge /transportation plan. MD, RN, patient/family, and receiving facility all aware, agreeable and understand their responsibilities to ensure safe transfer of pt. [facility], trip # [id number] at 12:00pm. Certificate of Medical Necessity complete. Pt needs an ambulance because of abnormal gait; fall/spinal precautions. Patient/family informed that while medical team will do everything possible for insurance to pay for the ambulance there is a chance thatinsurance will not pay, as insurance's criteria for ambulances are often stricter than the medical team. Social work informed patient/family that even if insurance does pay, it may not cover the fullcost of the trip. Social work informed patient/family that they will be responsible for the remainder of the bill. Patient/family voiced understanding. No further SW needs. ADRIANNA Castillo L MARKETER * Beena Linton, OT - 09/26/2021 4:00 PM CST Occupational Therapy Occupational Therapy Progress Note NOTE: This is a summary note of the giron components of the treatment session. For full details, review chart for all flowsheets documented on by this occupational therapy clinician on this date. Vitalsigns documented in vital signs flowsheet. Care plan progress documented in Care Plan Activity. For questions, please review the treatment team and contact the occupational therapist currently assigned to this patient. If an occupational therapist is not assigned to this patient, please call [phone]. 09/26/21 1533 General Session Type Treatment OT Received On 09/26/21 Safe Environment Arm Band Checked;Call Light within Reach;Notified RN (Pt found and left sitting EOB) Subjective Agreeable to Therapy Family/Caregiver Present No Precautions Precautions Fall risk;Spinal/Back Braces/Orthoses TLSO (aspen back brace for OOB mobility) Precaution Comments Verbally reviewed all precautions prior to mobility Pain Assessment Pain Assessment 0-10 Pain Score 4 Pain Location Back (Lumbar) Pain Interventions RN Notified Balance Balance Yes Static Sitting Balance Static Sitting-Balance Support Feet supported;No upper extremity supported Static Sitting-Sitting Surface Bed Static Sitting-Level of Assistance Independent Dynamic Sitting Balance Dynamic Sitting-Balance Support No upper extremity supported;Feet supported Dynamic Sitting-Balance Lateral lean;Forward lean;Reaching for objects;Reaching across midline Dynamic Sitting-Sitting Surface Bed Dynamic Sitting-Level of Assistance Distant supervision Dynamic Sitting-Comments safety Static Standing Balance Static Standing-Balance Support No upper extremity supported Static Standing-Standing Surface Floor Static Standing-Level of Assistance Close supervision Static Standing-Comment/# of Minutes safety Dynamic Standing Balance Dynamic Standing-Balance Support No upper extremity supported Dynamic Standing-Balance Lateral lean;Forward lean;Reaching for objects;Reaching across midline Dynamic Standing-Standing Surface Floor Dynamic Standing-Level of Assistance Close supervision Dynamic Standing-Comments safety ADL ADLS (WDL) X Grooming Grooming: Where assessed Standing at sink Grooming: Level of assistance Standby Assist (Sup task, sup balance) Grooming: Assistance with Increased time to complete;Safety LE Dressing LE Dressing: Where assessed Sitting;Edge of bed LE Dressing: Level of assistance Minimum Assist LE Dressing: Assistance with Don/doff R sock;Don/doff L sock Toileting Toileting: Where assessed Toilet Toileting: Level of assistance Standby Assist Toileting: Assistance with Increased time to complete;Other (Comment) (safety) Bed Mobility Bed Mobility No (pt found and left sitting EOB) Transfers Transfer Yes (gait belt) Transfer 1 Transfer From 1 Sit;Bed Transfer Type 1 To and from Transfer to 1 Stand Technique 1 Sit to stand;Stand to sit Transfer Device 1 Wheeled walker Transfer Level of Assistance 1 Standby Assist Trials/Comments 1 balance and safety Transfers 2 Trials/Comments 2 Pt functionally mobilized to and from bathroom with WW and SBA for balance and safety Toilet Transfers Toilet Transfer From Bed Toilet Transfer Type To and from Toilet Transfer to Standard toilet Toilet Transfer Technique Ambulating Toilet Transfer: Equipment Wheeled walker Toilet Transfers Supervision Toilet Transfers Comments balance and safety Cognition Arousal/Alertness Alert;Appropriate responses to stimuli Orientation Oriented X4 (person, place, time, situation) Following Commands Follows all commands and directions without difficulty Compliance/Behavior Easy to engage Daily Activity - 6 Clicks Putting on and taking off regular lower body clothing 3 Bathing 3 Toileting 3 Putting on and taking off upper body clothing 3 Personal Grooming 3 Eating Meals 4 Total Score (range 6-24) 19 Score Interpretation 40.22 Assessment Problem List Decreased endurance;Decreased balance;Decreased functional mobility;Decreased ADL independence;Decreased IADL independence Barriers to Discharge Current Mobility Status;Decreased caregiver support Barrier Comments fall risk Plan Plan Continue with current plan;If this is the last note, consider this the discharge summary Recommendation/Plan OT Recommendation Care Home Facility OT Frequency 5-7x/wk Treatment/Interventions ADL/IADL retraining;Balance Training;Bed mobility;Functional activity;Functional mobility training;Functional transfer training;Therapeutic activity;Therapeutic exercise;Transfer training Progress Progressing toward goals OT - Next Appointment 09/27/21 Multi-Disciplinary Problems (from Occupational Therapy) Active Problems Problem: Dressings Lower Extremities Start Date: 09/24/21 Goal Start Date Expected End Date End Date STG - Patient to complete lower body dressing 09/24/21 10/01/21 -- Goal Details: With Min A and use of AE Problem: Grooming Start Date: 09/24/21 Goal Start Date Expected End Date End Date STG - Patient will complete grooming 09/24/21 10/01/21 -- Goal Details: In standing, with Mod I. Problem: Toileting Start Date: 09/24/21 Goal Start Date Expected End Date End Date STG - Patient will complete toileting tasks with 09/24/21 10/01/21 -- Goal Details: Modified independence. Problem: Transfers Start Date: 09/24/21 Goal Start Date Expected End Date End Date STG - Patient will perform toilet transfer 09/24/21 10/01/21 -- Goal Details: To standard toilet, with modified independence. L MARKETER * Yael Momin [employer] SUPERVISOR - 09/26/2021 12:29 PM CST [facility] Geriatric Trauma Surgery Daily Progress Note Admit: 09/23/2021 11:51 AM Date: September 26, 2021 Length of Stay: 3 Attending: Bere Magana MD POD:* No surgery found * History: Phoebe Hillman is a 80 y.o. 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 Patient reported she fell after she tripped on her oxygen tubing, landing on her left side, and unable to get up after. +HS but denies LOC. OSH imaging revealed CT H (-), CT C/T/L (+) L2 burst fx w/ 20% posterior loss and 3mm retropulsion. XR pelvis, L hip, L shoulder (-). Patient was transferred to [facility] for ortho evaluation, and arrived with L spine brace in place. On arrival the patient was HDS, GCS 15, and protecting airway with c/o of chronic neck pain (hx of c-spine fx), and some lumbar pain. Ortho spine consult. Non op management. Patient admitted to [facility] for further management and monitoring. Interval History: 09/26: Patient in bed with no acute distress or events. Pain controlled. COVID test pending. DC planning for placement. 09/25: No acute events overnight. T-max 37, WBC 7 (7.9) Hgb lateral 11.7. Patient alert and orientedto person, place, time. Reporting adequate pain control. Voiding spontaneously after lowery discontinued. Encourage to continue working with PT/OT. 09/24: Patient admitted to floor from ED with acute distress. Patient resting in bed after being up in the chair. Pain controlled with pain medication. CTM. DC lowery. Therapy pending for DC planning needs. Pain:controlled Nausea: No Flatus: No Bowel Movement: Yes Medications: Current Facility-Administered Medications: ??? acetaminophen (TYLENOL) tablet 1,000 mg, 1,000 mg, oral, Q6H, Malini Ralph MD, 1,000 mg at 09/26/21 1059 ??? albuterol HFA (PROVENTIL HFA,VENTOLIN HFA,PROAIR HFA) 90 mcg/actuation inhaler 2 puff, 2 puff, inhalation, Q4H PRN (RT), Malini Ralph MD ??? bisacodyL (DULCOLAX) suppository 10 mg, 10 mg, rectal, Daily PRN, Bettye Robertson NP ??? clindamycin (CLEOCIN) capsule 300 mg, 300 mg, oral, QID, Bettye Robertson, JUICE, 300 mg at 09/26/21 1327 ??? cyclobenzaprine (FLEXERIL) tablet 5 mg, 5 mg, oral, TID, Bettye Robertson NP, 5 mg at 09/26/21919 ??? enoxaparin (LOVENOX) syringe 30 mg, 30 mg, subcutaneous, Q12H CHET, Malini Ralph MD, 30 mg at 09/26/21 0919 ??? gabapentin (NEURONTIN) capsule 300 mg, 300 mg, oral, Nightly, Bettye Robertson NP, 300 mgat 09/25/21 2100 ??? hydroCHLOROthiazide (HYDRODIURIL) tablet 12.5 mg, 12.5 mg, oral, Daily, Yael Momin NP, 12.5 mg at 09/25/21 1753 ??? lidocaine (LIDODERM) 5 % patch 2 patch, 2 patch, transdermal, Daily, Bettye Robertson NP,Last Rate: 0 mL/hr at 09/26/21 0200, 2 patch at 09/26/21919 ??? metoprolol tartrate (LOPRESSOR) immediate release tablet 25 mg, 25 mg, oral, BID, Malini Ralph MD, 25 mg at 09/26/21919 ??? ondansetron (ZOFRAN) injection 4 mg, 4 mg, intravenous, Once, Debby Kim NP ??? oxyCODONE (ROXICODONE) tablet 5 mg, 5 mg, oral, Q4H PRN, Bettye Robertson NP, 5 mg at 09/26/21 1325 ??? pantoprazole DR (PROTONIX) extended release tablet 40 mg, 40 mg, oral, Daily, Debby Kim NP, 40 mg at 09/26/21919 ??? polyethylene glycol (MIRALAX) packet 17 g, 17 g, oral, Daily, Yael Momin NP, 17 g at 09/26/21920 ??? senna-docusate (PERICOLACE) 8.6-50 mg per tablet 2 tablet, 2 tablet, oral, BID, Bettye Robertson NP, 2 tablet at 09/26/21920 ??? sodium chloride 0.9% flush 0.5-20 mL, 0.5-20 mL, intra-catheter, Q8H CHET, Malini Ralph MD, 10 mL at 09/26/21 0541 ??? sodium chloride 0.9% flush 0.5-20 mL, 0.5-20 mL, intra-catheter, PRN, Malini Marinelli MD ??? sodium chloride 0.9% flush 0.5-20 mL, 0.5-20 mL, intra-catheter, Q8H CHETLoree Wahid Y., MD, 10 mL at 09/26/21 0540 ??? sodium chloride 0.9% flush 0.5-20 mL, 0.5-20 mL, intra-catheter, PRN, Malini Marinelli MD ??? umeclidinium (INCRUSE ELLIPTA) 62.5 mcg/actuation inhaler 62.5 mcg, 1 puff, inhalation, Daily, Malini Ralph MD, 62.5 mcg at 09/26/21 0934 Diet: Dietary Orders (From admission, onward) Start Ordered 09/24/21 09 Adult Diet Regular Diet effective now Question: ([facility]) Diet type Answer: Regular 09/24/21 09 Activity: Spinal Precautions Is&Os: I/O last 2 completed shifts: In: 100 [P.O.:100] Out: 1500 [Urine:1500] I/O this shift: In: 240 [P.O.:240] Out: 250 [Urine:250] Physical Exam: 24hr Min/Max: Temp Min: 36.3 ??C (97.3 ??F) Max: 36.8 ??C (98.2 ??F) Pulse Min: 78 Max: 103 BP Min: 118/76 Max: 155/76 Resp Min: 18 Max: 18 SpO2 Min: 96 % Max: 98 % Vitals: 09/26/21 1245 BP: 124/49 Pulse: 78 Resp: 18 Temp: 36.6 ??C (97.9 ??F) SpO2: 98% Constitutional: well developed, well nourished, cooperative and no apparent distress Head: normocephalic, without obvious abnormality Neurologic: oriented to 3 sensation intact all extremities motor 5/5 all extremities Eyes: conjunctivae/corneas clear. PERRL HENT: external aural meatus intact with no visable drainage from the ear Neck: supple, symmetrical, trachea midline Chest: normal appearance, no masses or tenderness Respiratory: normal chest rise and fall Cardiovascular: regular rate and regular rhythm Gastrointestinal: soft, non-tender; bowel sounds present; no masses, no organomegaly Musculoskeletal: extremities normal, warm and well-perfused Skin: skin color, texture, turgor normal. No rashes or lesions, except right buttock ulcer Labs/Imaging: Recent Results (from the past 72 hour(s)) CBC without differential Collection Time: 09/24/21 11:20 PM Result Value Ref Range WBC 7.0 3.8 - 9.9 K/cumm Hgb 11.7 (L) 11.9 - 15.5 g/dL Hct 35.9 35.6 - 45.5 % Plt 294 150 - 400 K/cumm MPV 9.8 9.1 - 12.3 fL RBC 3.81 (L) 3.90 - 5.20 M/cumm MCV 94.2 81.3 - 96.4 fL MCH 30.7 27.1 - 33.3 pg MCHC 32.6 32.3 - 35.7 g/dL RDW CV 11.6 11.1 - 14.9 % RDW SD 39.4 35.7 - 48.1 fL NRBC abs 0.00 0.00 - 0.01 K/cumm Basic metabolic panel Collection Time: 09/24/21 11:20 PM Result Value Ref Range Sodium 140 135 - 145 mmol/L Potassium, pl 4.5 3.3 - 4.9 mmol/L Chloride 97 97 - 110 mmol/L CO2 35 (H) 22 - 32 mmol/L Anion gap 8 2 - 15 mmol/L BUN 19 8 - 25 mg/dL Creatinine 0.65 0.60 - 1.10 mg/dL Glucose 105 70 - 199 mg/dL Calcium 9.5 8.5 - 10.3 mg/dL Magnesium Collection Time: 09/24/21 11:20 PM Result Value Ref Range Magnesium 2.2 1.4 - 2.5 mg/dL Phosphorus Collection Time: 09/24/21 11:20 PM Result Value Ref Range Phosphorus, pl 4.3 2.3 - 4.5 mg/dL eGFR Collection Time: 09/24/21 11:20 PM Result Value Ref Range eGFR 90 90 - 130 mL/min/1.73 m2 XR Spine Lumbar 2 or 3 Views Result Date: 09/23/2021 1. L2 compression fracture, better evaluated on same-day CT. 2. Severe chronic compression deformities of T11 and T12 with focal kyphosis. Dictated by: Jono Garnett M.D. The radiology attending physician has personally reviewed this study, and had reviewed and/or edited this written report and agrees with it. Electronically signed by: Kyle Monet MD XR Chest 1 Vw Portable Result Date: 09/23/2021 1 view of the chest is submitted for interpretation with comparison made to prior chest radiograph dated 08/25/2020. There has been interval removal of the previously noted endotracheal tube and enteric tube. There are mild bilateral pulmonary opacities, most compatible with subsegmental atelectasissuperimposed on a background of mild pulmonary edema. There are emphysematous changes in both lungs. No pneumothorax. The heart size and mediastinal contours stable. There is unchanged calcified atherosclerosis of the thoracic aorta. Tortuous thoracic aorta in course. Diffuse osteopenia. A reportedL2 burst fracture is not well evaluated on this single frontal radiograph of the chest. Dictated by: Vaughn Velázquez M.D. The radiology attending physician has personally reviewed this study, and had reviewed and/or edited this written report and agrees with it. Electronically signed by: Kyle Monet MD XR Outside Reference Result Date: 09/23/2021 These images are for Reference purposes only and have not been reviewed by [facility] Radiology. There will be no report generated by a [facility] Radiologist. Neuro CT MR Outside Consult Result Date: 09/23/2021 1. L2 compression fracture with approximately 20% [...] study was performed based upon the imaging andclinical condition at that time. Comparison with the prior report and clinical history is necessary. The provided images may or may not represent the [place] source data set and thus may contain changes that may lower the accuracy of this second-opinion interpretation. Dictated by: Gilda Redd M.D.The radiology attending physician has personally reviewed this study, and had reviewed and/or edited this written report and agrees with it. Electronically signed by: Carlos Gauthier M.D. Neuro CT MR Outside Consult Result Date: 09/23/2021 1. L2 compression fracture with approximately 20% [...] study was performed based upon the imaging andclinical condition at that time. Comparison with the prior report and clinical history is necessary. The provided images may or may not represent the [place] source data set and thus may contain changes that may lower the accuracy of this second-opinion interpretation. Dictated by: Gilda Redd M.D.The radiology attending physician has personally reviewed this study, and had reviewed and/or edited this written report and agrees with it. Electronically signed by: Carlos Gauthier M.D. Neuro CT MR Outside Consult Result Date: 09/23/2021 1. L2 compression fracture with approximately 20% [...] study was performed based upon the imaging andclinical condition at that time. Comparison with the prior report and clinical history is necessary. The provided images may or may not represent the [place] source data set and thus may contain changes that may lower the accuracy of this second-opinion interpretation. Dictated by: Gilda eRdd M.D.The radiology attending physician has personally reviewed this study, and had reviewed and/or edited this written report and agrees with it. Electronically signed by: Carlos Gauthier M.D. Assessment and Plan: Principal Problem: Diagnosis unknown # L2 burst fx w/ 20% posterior loss and 3mm retropulsion - Orthospine consult - non -op - L spine precautions. No heavy lumbar lifting, bending, twisting. - PT/OT - Pain control - Consider IR Kyphoplasty or cement augmentation - call ortho spine if patient develops any concerning changes to their neurologic exam such as new weakness or loss of bowel/bladder function #COPD - home O2 3-4L - Home Albuterol inhaler and Atrovent PRN, Spiriva and Breo daily #CHF - Echo 08/25 EF 65% No AR seen, Mild MR, no , no MS, mild TV regurgitation, normal PV. #HTN - Home HCTZ 12.5mg daily - Home Metoprolol 25mg BID #Acute on Chronic pain - Home Gabapentin 100mg qHS - Tylenol 1000 mg q6h - Oxycodone 5mg q 4h PRN #Right buttock wound -POA - Was already evaluated by PCP and put on clindamycin PO - Continued inpatient DVT ppx: Lovenox 30 mg q12h Dispo: [facility] Yael Momin NP Cosigned by Morgan Bronson MD at 2021 4:14 PM EMAIL MARKETER L MARKETER L MARKETER * Luma Aguillon RN - 09/25/2021 6:45 PM CST Assessment of patient???s baseline is established at the beginning of the shift in flowsheets. Patient reassessed per order, unexpected findings and/or deviations from baseline are captured in flowsheets. Frequent safety checks and comfort rounds provided. Orders and/or nursing care completed as indicated. Patient monitored for response to interventions and treatments as documented in flowsheets. Plan of care discussed with patient/reimbursement representative, including as it relates to Principal Problem: Diagnosis unknown Patient progressing. Clinical goals for the shift pain control. Education provided includes Pain Management. Patient and/or reimbursement representative Verbalizes understanding. Will continue to monitor. L MARKETER * Anastasia Doran, OT - 09/25/2021 3:01 PM CST Occupational Therapy Occupational Therapy Progress Note NOTE: This is a summary note of the giron components of the treatment session. For full details, review chart for all flowsheets documented on by this occupational therapy clinician on this date. Vitalsigns documented in vital signs flowsheet. Care plan progress documented in Care Plan Activity. For questions, please review the treatment team and contact the occupational therapist currently assigned to this patient. If an occupational therapist is not assigned to this patient, please call [phone]. 09/25/21 1504 General Session Type Treatment OT Received On 09/25/21 Safe Environment Arm Band Checked;Call Light within Reach;Notified RN;Patient found in Supine (pt left in supine) Subjective Agreeable to Therapy Family/Caregiver Present No Precautions Precautions Fall risk;Spinal/Back Braces/Orthoses TLSO (quickdraw) Precaution Comments verbally reviewed spinal precautions Pain Assessment Pain Assessment 0-10 Pain Score 4 Pain Location Back (Lumbar) Pain Interventions RN Notified Balance Balance Yes Static Sitting Balance Static Sitting-Balance Support Feet supported;No upper extremity supported Static Sitting-Sitting Surface Bed Static Sitting-Level of Assistance Independent Dynamic Standing Balance Dynamic Standing-Balance Support No upper extremity supported Dynamic Standing-Balance Forward lean;Reaching for objects Dynamic Standing-Standing Surface Floor Dynamic Standing-Level of Assistance Close supervision Dynamic Standing-Comments safety ADL ADLS (WDL) X Grooming Grooming: Where assessed Standing at sink Grooming: Level of assistance Standby Assist Grooming: Assistance with Increased time to complete Toileting Toileting: Where assessed Toilet Toileting: Level of assistance Standby Assist Toileting: Assistance with Increased time to complete Bed Mobility Bed Mobility Yes Bed Mobility 1 Bed Mobility From 1 Supine Bed Mobility Type 1 To and from Bed Mobility to 1 Short sit;Edge of bed Level of Assistance 1 Standby Assist Bed Mobility Comments 1 safety Transfers Transfer Yes (gait belt donned for OOB mobility) Transfer 1 Transfer From 1 Sit Transfer Type 1 To and from Transfer to 1 Stand Technique 1 Sit to stand;Stand to sit Transfer Device 1 Wheeled walker Transfer Level of Assistance 1 Standby Assist Trials/Comments 1 sba for balance/safety Transfers 2 Trials/Comments 2 Patient performed functional mobility throughout room using WW, with SBA to ensure balance/safety. Toilet Transfers Toilet Transfer From Bed Toilet Transfer Type To and from Toilet Transfer to Standard toilet Toilet Transfer Technique Ambulating Toilet Transfer: Equipment Wheeled walker Toilet Transfers Supervision Toilet Transfers Comments supervision for balance/safety RUE Assessment RUE Assessment WFL LUE Assessment LUE Assessment WFL Cognition Arousal/Alertness Alert;Appropriate responses to stimuli Attention Span Appears intact Current communication Appears Intact Orientation Oriented X4 (person, place, time, situation) Following Commands Follows all commands and directions without difficulty Compliance/Behavior Easy to engage Other Comments Comments Treatment consisted of functional transfer training, bed mobility, functional mobility, and ADL tasks in standing. will continue to follow. Daily Activity - 6 Clicks Putting on and taking off regular lower body clothing 3 Bathing 3 Toileting 3 Putting on and taking off upper body clothing 3 Personal Grooming 3 Eating Meals 3 Total Score (range 6-24) 18 Score Interpretation 38.66 Assessment Problem List Decreased endurance;Decreased balance;Decreased IADL independence;Decreased functionalmobility;Decreased ADL independence;Pain Barriers to Discharge Current Mobility Status;Decreased safety awareness;Other (Comment) (fall risk) Plan Plan If this is the last note, consider this the discharge summary;Alter current plan Recommendation/Plan OT Recommendation Care Home Facility OT Frequency 5-7x/wk Treatment/Interventions ADL/IADL retraining;Balance Training;Bed mobility;Endurance training;Functional activity;Functional mobility training;Functional transfer training;Range of motion;Strengthening;Therapeutic activity;Therapeutic exercise;Transfer training Progress Progressing toward goals OT - Next Appointment 09/26/21 Multi-Disciplinary Problems (from Occupational Therapy) Active Problems Problem: Dressings Lower Extremities Start Date: 09/24/21 Goal Start Date Expected End Date End Date STG - Patient to complete lower body dressing 09/24/21 10/01/21 -- Goal Details: With Min A and use of AE Problem: Grooming Start Date: 09/24/21 Goal Start Date Expected End Date End Date STG - Patient will complete grooming 09/24/21 10/01/21 -- Goal Details: In standing, with Mod I. Problem: Toileting Start Date: 09/24/21 Goal Start Date Expected End Date End Date STG - Patient will complete toileting tasks with 09/24/21 10/01/21 -- Goal Details: Modified independence. Problem: Transfers Start Date: 09/24/21 Goal Start Date Expected End Date End Date STG - Patient will perform toilet transfer 09/24/21 10/01/21 -- Goal Details: To standard toilet, with modified independence. L MARKETER * Pavan Hardy - 09/25/2021 2:48 PM CST Physical Therapy Physical Therapy Initial Assessment NOTE: This is a summary note for the giron assessments completed during the evaluation session. For full details, review chart review for all flowsheets documented on by this physical therapist on thisdate. Vital signs documented in vital signs flowsheet. Assessment Assessment Prognosis: Good Problem List: Gait deviations, Decreased strength, Decreased endurance, Impaired balance, Decreasedmobility, Impaired judgement, Decreased safety awareness, Pain Problem List Comments: PT diagnosis: pt s/p L2 burst fx 2/2 [facility] bedside in her home experiencing above listed impairments limiting full participation in the home and community at [facility]. pt will benefit from skilled physical therapy focusing on balance training, gait training, and LE strength/endurance training to prevent deconditioning. Barriers to Discharge: Current Mobility Status, Decreased caregiver support, Decreased safety awareness Plan Plan Plan : Plan of care initiated, If this is the last note, consider this the discharge summary PT Recommendation and Plan Recommendation/Plan PT Recommendation/Plan: Care Home Facility PT Recommendation/Plan Comments: pt recieved verbal explanation of PT recommendation PT Frequency: 5-7x/wk Treatment/Interventions: Balance Training, Endurance training, Functional transfer training, Gait training, Strengthening, Therapeutic activity PT Equipment Recommended: None PT - Next Appointment: 09/26/21 PT - OK to Discharge: No PT Evaluation Complete: Yes General Information General Chart Reviewed: Yes PT Received On: 09/25/21 Safe Environment: Arm Band Checked, Call Light within Reach, Notified RN, Session Completed Bedside Subjective: Agreeable to Therapy Family/Caregiver Present: No Prior Function Prior Function Level of [place]: Independent functional transfers, Independent with ambulation, Needs assistance with homemaking, Needs assistance with ADLs Lives With: Other (Comment) (former spouse) Receives Help From: 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 (4 days/week, 3 hours/day) Driving: No Mode of Transportation: Family Vocational/Occupation: Retired Fall within the last 6 months: Yes Fall within the last 6 months comment: pt has history of multiple falls (3+) in the home in last 6 months Prior Function Comments: supplemental o2 3L NC Home Living Home Living Type of Home: House Home Layout: One level Home Access: Stairs to enter with rails Entrance Stairs-Rails: Both Entrance Stairs-Number of Steps: 7 (first 2 steps no handrail) Home Mobility Equipment: Wheeled walker Additional Comments: pt reports she has not used WW for ~1 year but still has at home Precautions Precautions Precautions: Fall risk, Spinal/Back Precaution Handout Issued: Yes Precaution Comments: verbally reviewed lubar spine precautions with pt. pt able to demonstrate understanding of log rolling maneuver during bed mobility. SPT and DPT wore procedural masks and gloves Pain Pain Assessment Pain Assessment: No/denies pain Cognition Cognition Arousal/Alertness: Alert, Appropriate responses to stimuli Orientation : Oriented X4 (person, place, time, situation) Following Commands: Follows all commands and directions without difficulty Compliance/Behavior: Easy to engage 6 Clicks Basic Mobility - 6 Click How much difficulty does the patient have: Turning over in bed: A little How much difficulty does the patient currently have: Sitting down and standing up from a chair witharms?: A little How much difficulty does the patient have: Moving from lying on back to sitting on the side of the bed?: A little How much difficulty does the patient have: Moving to and from a bed to a chair including wheelchair?: A little How much help does the patient currently need: Walk in hospital room?: A little How much help from another person does the patient currently need: Climbing 3-5 steps with a railing?: A little Total 6 Click Score (range 6-24): 18 Score Interpretation: 18 Bed Mobility Bed Mobility Bed Mobility: Yes Bed Mobility 1 Bed Mobility From 1: Supine Bed Mobility Type 1: To Bed Mobility to 1: Edge of bed Level of Assistance 1: Standby Assist Bed Mobility Comments 1: pt demonstrated understanding of lumbar spine precautions during bed mobility. Transfers Transfers Transfer: Yes Transfer 1 Transfer From 1: Bed Transfer Type 1: To and from Transfer to 1: Commode-standard Technique 1: Stand pivot Transfer Device 1: No device Transfer Level of Assistance 1: Standby Assist Trials/Comments 1: SBA 2/2 impaired balance and fall risk precautions. Transfers 2 Transfer From 2: Sit Transfer Type 2: To and from Transfer to 2: Stand Technique 2: Sit to stand, Stand to sit Transfer Device 2: No device Transfer Level of Assistance 2: Standby Assist Trials/Comments 2: SBA 2/2 impaired balance and fall risk precautions Balance Static Sitting Balance Static Sitting-Balance Support: No upper extremity supported, Feet supported Static Sitting-Sitting Surface: Bed Static Sitting-Level of Assistance: Distant supervision Static Sitting-Comment/# of Minutes: ~2 minutes. pt demonstrated no increase in lateral trunk sway during unsupported sitting. supervision 2/2 fall risk precautions Static Standing Balance Static Standing-Balance Support: No upper extremity supported Static Standing-Standing Surface: Floor Static Standing-Level of Assistance: Close supervision Static Standing-Comment/# of Minutes: ~2 minutes. pt demonstrated no increase in lateral trunk swayduring unsupported standing. supervision 2/2 fall risk precautions Dynamic Standing Balance Dynamic Standing-Comments: pt performed 5xSTS as objective measure of balance. pt scored 48sec for completion indicating elevated risk of fall. pt understood verbal explanation of score. Ambulation Ambulation Ambulation: Yes Ambulation 1 Distance (ft) 1: 15ft Surface 1: Level tile Device 1: No device Assistance 1: Contact Guard Assist Gait: Requires assist with 1: Maintaining balance Gait: Requires verbal cues to 1: Increase base of support, Pace activity Quality of Gait 1: pt able to demonstrate recipricating step through gait pattern w/o AD. step length and chava both symmetric and low. pt demonstrated mild lateral gait deviations. Ambulation Comments 1: pt indicated onset of pain at 15ft ambulation. pt did not require a rest break. CGA 2/2 impaired balance, fall risk precautions, and line management Ambulation 2 Distance (ft) 2: 150ft Surface 2: Level tile Device 2: Wheeled walker Assistance 2: Contact Guard Assist Gait: Requires verbal cues to 2: Use assistive device safely, Improve upright posture, Increase step length, Increase base of support Quality of Gait 2: pt able to demonstrate recipricating step through gait pattern with step length and chava both symmetric and low. pt lateral gait deviations decreased with use of AD. pt upright posture improved with use of WW. Stairs Stairs Stair Comments: pt did not require assist with force production or sequencing during ascending of steps. pt required assist with force production during descent of steps for eccentric control Stairs Number of Stairs 1: 5 Rails 1: Bilateral Device 1: No device Assistance 1: Minimum Assist Stairs: Requires assist with 1: Balance, Force production Curbs RLE Assessment RLE Assessment RLE Assessment: Exceptions to WFL (AROM WFL for ambulation) Strength RLE R Hip Flexion: 3+/5 R Knee Flexion: 4/5 R Knee Extension: 3+/5 R Ankle Dorsiflexion: 4/5 R Ankle Plantar Flexion: 4/5 LLE Assessment LLE Assessment LLE Assessment: Exceptions to WFL (AROM WFL for ambulation) Strength LLE L Hip Flexion: 0/5 (not graded 2/2 pain) L Knee Flexion: 4/5 L Knee Extension: 3+/5 L Ankle Dorsiflexion: 4/5 L Ankle Plantar Flexion: 4/5 Equipment Used Equipment Use Equipment Use Comments: gait belt used Other Comments Other Comments Other PT Comments: pt required verbal cueing to don her lumbar brace PT Goals Multi-Disciplinary Problems (from Physical Therapy) Active Problems Problem: Mobility Start Date: 09/25/21 Goal Start Date Expected End Date End Date STG - Patient will ambulate 150ft Ind, LRAD 09/25/21 10/09/21 -- Goal Start Date Expected End Date End Date STG - Patient will ascend and descend 2 stairs, no handrail, LRAD, with the following level of assist: Ind 09/25/21 10/09/21 -- Problem: Transfers Start Date: 09/25/21 Goal Start Date Expected End Date End Date STG - Transfer from bed to chair Ind LRAD 09/25/21 10/09/21 -- Problem: PT Misc Start Date: 09/25/21 Goal Start Date Expected End Date End Date PT LTG - Improve 5xSTS to cut off score of 17 seconds 09/25/21 10/16/21 -- Cosigned by Shar Kaye, PT at 09/25/2021 5:31 PM EMAIL MARKETER L MARKETER L MARKETER * Shellie Healy RN - 09/25/2021 10:41 AM CST CM Initial Assessment Interview Note Information Obtained From: Patient (09/25/211038) Admission Source: OSH Impression: fall with L2 Burst fx Plan Includes: PT and OT evals - brace for comfort Primary Source of Transportation: car Health Insurance Coverage: [facility] [employer]coms and [employer] Prescription Coverage: yes Pharmacy: [facility] in [place] Primary Care Provider: Linda Nagy MD Prior to Admission: Primary Caregiver: Self Support System: Spouse/Significant Other Support system contact info (name, phone, availablity): currently, pt's X- lives with her Home Care Services: No Durable Medical Equipment: Oxygen (Oxygen supplied by [employer]. Patient stating family will bring her portable tank on the day of discharge) Living Arrangements: Spouse/significant other Type of Residence: Private residence Steps in home? : Yes, Outside of home Number of steps outside:: 7 steps (09/25/211038) Potential discharge needs include: will need portable O2 tank to get home. May need rehab when discharged. Dialysis: no Behavioral Health Services: Behavioral Health Services: No (09/25/211038) Patient expects to be Discharged to: Private residence, (09/25/211038) Additional Information: Family to provide transportation home. Patient's Identified Problem/Goal Problem: Ensure acute medical needs are met and that patient has a safe discharge plan. Goal: Secure a discharge plan that patient/family are agreeable with and ensure patient has continuum of care. Case management will follow for discharge planning and send referrals as needed. Goals include: To assure continuity of care, To maximize coping skills, To assure patient is in a safe environment and To assure access to community resources. Plan includes: 1. Collaboration with patient, MD, direct care nurse, Yardage Control Operator Forming, Nurse Coordinator and other members of the health care team to assure needed interventions completed. 2. Return patient to optimal level of self-care post discharge. 3. Promotional Model will follow for Discharge Planning - interventions as needed 4. Anticipated level of care at discharge 5. Planned Discharge Disposition Based on a comprehensive family assessment, assistance with instrumental activities of daily livingafter discharge will be provided by family Through the course of our work I determined that the family possesses the skill and ability to provide and monitor the care of the patient when he or she returns home. Family has the capacity to provide/monitor/arrange for the care of the patient. Finally, we determined that family has the knowledge of available resources and that combining them with their existing resources will suffice to sustain and care for the patient when he or she returns home. The treatment team is aware of this information. All are in agreement with the aftercare plan. Shellie Healy RN L MARKETER * Debby Kim NP - 09/25/2021 5:08 AM CST [facility] Geriatric Trauma Surgery Daily Progress Note Admit: 09/23/2021 11:51 AM Date: September 25, 2021 Length of Stay: 2 Attending: Bere Magana MD POD:* No surgery found * History: Phoebe Hillman is a 80 y.o. 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 Patient reported she fell after she tripped on her oxygen tubing, landing on her left side, and unable to get up after. +HS but denies LOC. OSH imaging revealed CT H (-), CT C/T/L (+) L2 burst fx w/ 20% posterior loss and 3mm retropulsion. XR pelvis, L hip, L shoulder (-). Patient was transferred to [facility] for ortho evaluation, and arrived with L spine brace in place. On arrival the patient was HDS, GCS 15, and protecting airway with c/o of chronic neck pain (hx of c-spine fx), and some lumbar pain. Ortho spine consult. Non op management. Patient admitted to S for further management and monitoring. Interval History: 09/25: No acute events overnight. T-max 37, WBC 7 (7.9) Hgb lateral 11.7. Patient alert and orientedto person, place, time. Reporting adequate pain control. Voiding spontaneously after lowery discontinued. Encourage to continue working with PT/OT. 09/24: Patient admitted to floor from ED with acute distress. Patient resting in bed after being up in the chair. Pain controlled with pain medication. CTM. DC lowery. Therapy pending for DC planning needs. Pain:controlled Nausea: No Flatus: No Bowel Movement: No Medications: Current Facility-Administered Medications: ??? acetaminophen (TYLENOL) tablet 1,000 mg, 1,000 mg, oral, Q6H, Malini Ralph MD, 1,000 mg at 09/24/212346 ??? albuterol HFA (PROVENTIL HFA,VENTOLIN HFA,PROAIR HFA) 90 mcg/actuation inhaler 2 puff, 2 puff, inhalation, Q4H PRN (RT), Malini Ralph MD ??? enoxaparin (LOVENOX) syringe 30 mg, 30 mg, subcutaneous, Q12H CHET, Malini Ralph MD, 30 mg at 09/24/212138 ??? gabapentin (NEURONTIN) capsule 100 mg, 100 mg, oral, Nightly, Malini Ralph MD, 100 mg at09/24/212138 ??? hydroCHLOROthiazide (HYDRODIURIL) tablet 12.5 mg, 12.5 mg, oral, Daily, Yael Momin NP, 12.5 mg at 09/24/212003 ??? metoprolol tartrate (LOPRESSOR) immediate release tablet 25 mg, 25 mg, oral, BID, Malini Ralph MD, 25 mg at 09/24/212138 ??? oxyCODONE (ROXICODONE) tablet 5 mg, 5 mg, oral, Q6H PRN, Malini Ralph MD, 5 mg at 09/24/212346 ??? polyethylene glycol (MIRALAX) packet 17 g, 17 g, oral, Daily, Yael Momin NP, 17 g at 09/24/21 1226 ??? senna (SENOKOT) tablet 2 tablet, 2 tablet, oral, BID, Malini Ralph MD, 2 tablet at 09/24/212138 ??? sodium chloride 0.9% flush 0.5-20 mL, 0.5-20 mL, intra-catheter, Q8H CHET, Malini Ralph MD, 10 mL at 09/24/212140 ??? sodium chloride 0.9% flush 0.5-20 mL, 0.5-20 mL, intra-catheter, PRN, Malini Marinelli MD ??? sodium chloride 0.9% flush 0.5-20 mL, 0.5-20 mL, intra-catheter, Q8H CHETLoree Wahid Y., MD, 10 mL at 09/24/212140 ??? sodium chloride 0.9% flush 0.5-20 mL, 0.5-20 mL, intra-catheter, PRN, Malini Marinelli MD ??? umeclidinium (INCRUSE ELLIPTA) 62.5 mcg/actuation inhaler 62.5 mcg, 1 puff, inhalation, Daily, Malini Ralph MD Diet: Dietary Orders (From admission, onward) Start Ordered 09/24/21922 Adult Diet Regular Diet effective now Question: ([facility]) Diet type Answer: Regular 09/24/21923 Activity: Spinal Precautions Is&Os: I/O last 2 completed shifts: In: - Out: 700 [Urine:700] I/O this shift: In: 350 [P.O.:350] Out: 700 [Urine:700] Physical Exam: 24hr Min/Max: Temp Min: 36.2 ??C (97.1 ??F) Max: 37 ??C (98.6 ??F) Pulse Min: 74 Max: 92 BP Min: 131/59 Max: 182/78 Resp Min: 18 Max: 22 SpO2 Min: 94 % Max: 100 % Vitals: 09/25/21 0430 BP: 146/57 Pulse: 80 Resp: 18 Temp: 36.9 ??C (98.4 ??F) SpO2: 100% Constitutional: well developed, well nourished, cooperative and no apparent distress Head: normocephalic, without obvious abnormality Neurologic: oriented to 3 sensation intact all extremities motor 5/5 all extremities Eyes: conjunctivae/corneas clear. PERRL HENT: external aural meatus intact with no visable drainage from the ear Neck: supple, symmetrical, trachea midline Chest: normal appearance, no masses or tenderness Respiratory: normal chest rise and fall Cardiovascular: regular rate and regular rhythm Gastrointestinal: soft, non-tender; bowel sounds present; no masses, no organomegaly Musculoskeletal: extremities normal, warm and well-perfused Skin: skin color, texture, turgor normal. No rashes or lesions, except right buttock ulcer Labs/Imaging: Recent Results (from the past 72 hour(s)) CBC with auto differential Collection Time: 09/23/21 1:41 PM Result Value Ref Range WBC 7.9 3.8 - 9.9 K/cumm Hgb 11.7 (L) 11.9 - 15.5 g/dL Hct 35.0 (L) 35.6 - 45.5 % Plt 263 150 - 400 K/cumm MPV 9.2 9.1 - 12.3 fL RBC 3.71 (L) 3.90 - 5.20 M/cumm MCV 94.3 81.3 - 96.4 fL MCH 31.5 27.1 - 33.3 pg MCHC 33.4 32.3 - 35.7 g/dL RDW CV 11.7 11.1 - 14.9 % RDW SD 40.2 35.7 - 48.1 fL NRBC abs 0.00 0.00 - 0.01 K/cumm Comprehensive metabolic panel Collection Time: 09/23/21 1:41 PM Result Value Ref Range Sodium 140 135 - 145 mmol/L Potassium, pl 4.2 3.3 - 4.9 mmol/L Chloride 97 97 - 110 mmol/L CO2 35 (H) 22 - 32 mmol/L Anion gap 8 2 - 15 mmol/L BUN 12 8 - 25 mg/dL Creatinine 0.43 (L) 0.60 - 1.10 mg/dL Glucose 116 70 - 199 mg/dL Calcium 9.4 8.5 - 10.3 mg/dL Bilirubin, total 0.3 0.1 - 1.2 mg/dL Protein, pl 7.1 6.5 - 8.5 g/dL Albumin 4.1 3.5 - 5.0 g/dL Alk phos 137 (H) 40 - 130 Units/L ALT 15 7 - 45 Units/L AST 22 10 - 45 Units/L Urinalysis reflex to microscopic and culture Urine Collection Time: 09/23/21 1:41 PM Specimen: Urine Result Value Ref Range Color, ur Straw Yellow Clarity, ur Cloudy (A) Clear Specific gravity, ur 1.014 1.003 - 1.030 pH, urine 7.5 Protein, ur ql Trace Negative Glucose, ur ql Negative Negative Ketones, ur Negative Negative Bilirubin, ur Negative Negative Blood, ur Negative Negative Urobilinogen, ur <2.0 <2.0 mg/dL Nitrite, ur Negative Negative Leukocyte esterase, ur Negative Negative UA reflex comment Reflex conditions for microscopic UA and culture not met. Troponin I high-sensitivity series (baseline, 2hr, 4hr, 6hr) Collection Time: 09/23/21 1:41 PM Result Value Ref Range Trop I hs <4 <=17 ng/L Type and screen Collection Time: 09/23/21 1:41 PM Result Value Ref Range Sheng, indirect Negative ABO Rh A Positive aPTT Collection Time: 09/23/21 1:41 PM Result Value Ref Range aPTT 27 27 - 37 sec Protime-INR Collection Time: 09/23/21 1:41 PM Result Value Ref Range PT 11.6 9.5 - 13.6 sec INR 1.0 0.9 - 1.2 Influenza A/B, RSV, and COVID-19 PCR Nasopharyngeal Collection Time: 09/23/21 1:41 PM Specimen: Nasopharyngeal Result Value Ref Range COVID-19 RNA Negative Negative Influenza A RNA Negative Negative Influenza B RNA Negative Negative RSV RNA Negative Negative First COVID-19 test? No Employeed in healthcare? No status? No Group care resident? No Hospitalized? No Is patient in ICU? No Symptomatic as defined by CDC? No Differential, auto Collection Time: 09/23/21 1:41 PM Result Value Ref Range Neutrophil abs 5.2 1.7 - 6.5 K/cumm Imm gran abs 0.0 0.0 - 0.1 K/cumm Lymphocyte abs 1.9 0.8 - 3.3 K/cumm Monocyte abs 0.7 0.2 - 0.8 K/cumm Eosinophil abs 0.0 0.0 - 0.5 K/cumm Basophil abs 0.0 0.0 - 0.1 K/cumm Neutrophil pct 65.5 % Imm gran pct 0.4 % Lymphocyte pct 24.0 % Monocyte pct 9.3 % Eosinophil pct 0.5 % Basophil pct 0.3 % eGFR Collection Time: 09/23/21 1:41 PM Result Value Ref Range eGFR >90 90 - 130 mL/min/1.73 m2 Lipid panel Collection Time: 09/23/21 1:41 PM Result Value Ref Range Cholesterol 178 30 - 199 mg/dL Triglycerides 98 <=149 mg/dL HDL 50 >=40 mg/dL LDL, calculated 108 <=129 mg/dL Non-HDL Cholesterol 128 mg/dL Chol/HDL ratio 4 CBC without differential Collection Time: 09/24/21 11:20 PM Result Value Ref Range WBC 7.0 3.8 - 9.9 K/cumm Hgb 11.7 (L) 11.9 - 15.5 g/dL Hct 35.9 35.6 - 45.5 % Plt 294 150 - 400 K/cumm MPV 9.8 9.1 - 12.3 fL RBC 3.81 (L) 3.90 - 5.20 M/cumm MCV 94.2 81.3 - 96.4 fL MCH 30.7 27.1 - 33.3 pg MCHC 32.6 32.3 - 35.7 g/dL RDW CV 11.6 11.1 - 14.9 % RDW SD 39.4 35.7 - 48.1 fL NRBC abs 0.00 0.00 - 0.01 K/cumm Basic metabolic panel Collection Time: 09/24/21 11:20 PM Result Value Ref Range Sodium 140 135 - 145 mmol/L Potassium, pl 4.5 3.3 - 4.9 mmol/L Chloride 97 97 - 110 mmol/L CO2 35 (H) 22 - 32 mmol/L Anion gap 8 2 - 15 mmol/L BUN 19 8 - 25 mg/dL Creatinine 0.65 0.60 - 1.10 mg/dL Glucose 105 70 - 199 mg/dL Calcium 9.5 8.5 - 10.3 mg/dL Magnesium Collection Time: 09/24/21 11:20 PM Result Value Ref Range Magnesium 2.2 1.4 - 2.5 mg/dL Phosphorus Collection Time: 09/24/21 11:20 PM Result Value Ref Range Phosphorus, pl 4.3 2.3 - 4.5 mg/dL eGFR Collection Time: 09/24/21 11:20 PM Result Value Ref Range eGFR 90 90 - 130 mL/min/1.73 m2 XR Spine Lumbar 2 or 3 Views Result Date: 09/23/2021 1. L2 compression fracture, better evaluated on same-day CT. 2. Severe chronic compression deformities of T11 and T12 with focal kyphosis. Dictated by: Jono Garnett M.D. The radiology attending physician has personally reviewed this study, and had reviewed and/or edited this written report and agrees with it. Electronically signed by: Kyle Monet MD XR Chest 1 Vw Portable Result Date: 09/23/2021 1 view of the chest is submitted for interpretation with comparison made to prior chest radiograph dated 08/25/2020. There has been interval removal of the previously noted endotracheal tube and enteric tube. There are mild bilateral pulmonary opacities, most compatible with subsegmental atelectasissuperimposed on a background of mild pulmonary edema. There are emphysematous changes in both lungs. No pneumothorax. The heart size and mediastinal contours stable. There is unchanged calcified atherosclerosis of the thoracic aorta. Tortuous thoracic aorta in course. Diffuse osteopenia. A reportedL2 burst fracture is not well evaluated on this single frontal radiograph of the chest. Dictated by: Vaughn Velázquez M.D. The radiology attending physician has personally reviewed this study, and had reviewed and/or edited this written report and agrees with it. Electronically signed by: Kyle Monet MD XR Outside Reference Result Date: 09/23/2021 These images are for Reference purposes only and have not been reviewed by [facility] Radiology. There will be no report generated by a [facility] Radiologist. Neuro CT MR Outside Consult Result Date: 09/23/2021 1. L2 compression fracture with approximately 20% [...] study was performed based upon the imaging andclinical condition at that time. Comparison with the prior report and clinical history is necessary. The provided images may or may not represent the [place] source data set and thus may contain changes that may lower the accuracy of this second-opinion interpretation. Dictated by: Gilda Redd M.D.The radiology attending physician has personally reviewed this study, and had reviewed and/or edited this written report and agrees with it. Electronically signed by: Carlos Gauthier M.D. Neuro CT MR Outside Consult Result Date: 09/23/2021 1. L2 compression fracture with approximately 20% [...] study was performed based upon the imaging andclinical condition at that time. Comparison with the prior report and clinical history is necessary. The provided images may or may not represent the [place] source data set and thus may contain changes that may lower the accuracy of this second-opinion interpretation. Dictated by: Gilda Redd M.D.The radiology attending physician has personally reviewed this study, and had reviewed and/or edited this written report and agrees with it. Electronically signed by: Carlos Gauthier M.D. Neuro CT MR Outside Consult Result Date: 09/23/2021 1. L2 compression fracture with approximately 20% [...] study was performed based upon the imaging andclinical condition at that time. Comparison with the prior report and clinical history is necessary. The provided images may or may not represent the [place] source data set and thus may contain changes that may lower the accuracy of this second-opinion interpretation. Dictated by: Gilda Redd M.D.The radiology attending physician has personally reviewed this study, and had reviewed and/or edited this written report and agrees with it. Electronically signed by: Carlos Gauthier M.D. Assessment and Plan: Principal Problem: Diagnosis unknown # L2 burst fx w/ 20% posterior loss and 3mm retropulsion - Orthospine consult - non -op - L spine precautions. No heavy lumbar lifting, bending, twisting. - PT/OT - Pain control - Consider IR Kyphoplasty or cement augmentation - call ortho spine if patient develops any concerning changes to their neurologic exam such as new weakness or loss of bowel/bladder function #COPD - home O2 3-4L - Home Albuterol inhaler and Atrovent PRN, Spiriva and Breo daily #CHF - Echo 08/25 EF 65% No AR seen, Mild MR, no , no MS, mild TV regurgitation, normal PV. #HTN - Home HCTZ 12.5mg daily - Home Metoprolol 25mg BID #Acute on Chronic pain - Home Gabapentin 100mg qHS - Tylenol 1000 mg q6h - Oxycodone 5mg q 4h PRN #Right buttock wound -POA - wound/ostomy consult DVT ppx: Lovenox 30 mg q12h Dispo: Pending Debby Kim NP Cosigned by Morgan Bronson MD at 09/25/2021 1:48 PM EMAIL MARKETER L MARKETER L MARKETER * Yael Momin NP - 09/24/2021 9:02 AM CST [facility] Geriatric Trauma Surgery Daily Progress Note Admit: 09/23/2021 11:51 AM Date: September 24, 2021 Length of Stay: 1 Attending: Breanna Sutton, * POD:* No surgery found * History: Phoebe Hillman is a 80 y.o. 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 Patient reported she fell after she tripped on her oxygen tubing, landing on her left side, and unable to get up after. +HS but denies LOC. OSH imaging revealed CT H (-), CT C/T/L (+) L2 burst fx w/ 20% posterior loss and 3mm retropulsion. XR pelvis, L hip, L shoulder (-). Patient was transferred to [facility] for ortho evaluation, and arrived with L spine brace in place. On arrival the patient was HDS, GCS 15, and protecting airway with c/o of chronic neck pain (hx of c-spine fx), and some lumbar pain. Ortho spine consult. Non op management. Patient admitted to S for further management and monitoring. Interval History: Patient admitted to floor from ED with acute distress. Patient resting in bed after being up in the chair. Pain controlled with pain medication. CTM. DC lowery. Therapy pending for DC planning needs. Pain:controlled Nausea: No Flatus: No Bowel Movement: No Medications: Current Facility-Administered Medications: ??? acetaminophen (TYLENOL) tablet 1,000 mg, 1,000 mg, oral, Q6H, Malini Ralph MD, 1,000 mg at 09/24/21 0541 ??? albuterol HFA (PROVENTIL HFA,VENTOLIN HFA,PROAIR HFA) 90 mcg/actuation inhaler 2 puff, 2 puff, inhalation, Q4H PRN (RT), Malini Ralph MD ??? enoxaparin (LOVENOX) syringe 30 mg, 30 mg, subcutaneous, Q12H CHET, Malini Ralph MD, 30 mg at 09/23/212323 ??? gabapentin (NEURONTIN) capsule 100 mg, 100 mg, oral, Nightly, Malini Ralph MD, 100 mg at09/23/212322 ??? Lactated Ringer's (LR) infusion, 100 mL/hr, intravenous, Continuous, Malini Marinelli MD, Last Rate: 100 mL/hr at 09/24/21 0048, 100 mL/hr at 09/24/21 0048 ??? metoprolol tartrate (LOPRESSOR) immediate release tablet 25 mg, 25 mg, oral, BID, Malini Ralph MD, 25 mg at 09/23/212322 ??? ondansetron ODT (ZOFRAN-ODT) disintegrating tablet 4 mg, 4 mg, oral, Q4H PRN, Malini Ralph MD, 4 mg at 09/23/21 2324 ??? oxyCODONE (ROXICODONE) tablet 5 mg, 5 mg, oral, Q6H PRN, Malini Ralph MD, 5 mg at 09/24/21 0544 ??? senna (SENOKOT) tablet 2 tablet, 2 tablet, oral, BID, Malini Ralph MD ??? sodium chloride 0.9% flush 0.5-20 mL, 0.5-20 mL, intra-catheter, Q8H CHET, Malini Ralph MD, 10 mL at 09/24/21 0542 ??? sodium chloride 0.9% flush 0.5-20 mL, 0.5-20 mL, intra-catheter, PRN, Malini Marinelli MD ??? sodium chloride 0.9% flush 0.5-20 mL, 0.5-20 mL, intra-catheter, Q8H CHET, Malini Ralph MD, 10 mL at 09/24/21 0542 ??? sodium chloride 0.9% flush 0.5-20 mL, 0.5-20 mL, intra-catheter, PRN, Malini Marinelli MD ??? umeclidinium (INCRUSE ELLIPTA) 62.5 mcg/actuation inhaler 62.5 mcg, 1 puff, inhalation, Daily (RT), Malini Ralph MD Diet: Dietary Orders (From admission, onward) Start Ordered 09/24/21 0001 NPO Diet Diet effective midnight 09/23/21 2307 Activity: Spinal Precautions Is&Os: I/O last 2 completed shifts: In: - Out: 400 [Urine:400] No intake/output data recorded. Physical Exam: 24hr Min/Max: Temp Min: 36.5 ??C (97.7 ??F) Max: 36.9 ??C (98.5 ??F) Pulse Min: 66 Max: 94 BP Min: 127/96 Max: 194/103 Resp Min: 16 Max: 20 SpO2 Min: 93 % Max: 99 % Vitals: 09/24/21 0330 BP: 165/63 Pulse: 82 Resp: 20 Temp: 36.6 ??C (97.9 ??F) SpO2: 98% Constitutional: well developed, well nourished, cooperative and no apparent distress Head: normocephalic, without obvious abnormality Neurologic: oriented to 3 sensation intact all extremities motor 5/5 all extremities Eyes: conjunctivae/corneas clear. PERRL HENT: external aural meatus intact with no visable drainage from the ear Neck: supple, symmetrical, trachea midline Chest: normal appearance, no masses or tenderness Respiratory: normal chest rise and fall Cardiovascular: regular rate and regular rhythm Gastrointestinal: soft, non-tender; bowel sounds present; no masses, no organomegaly Musculoskeletal: extremities normal, warm and well-perfused Skin: skin color, texture, turgor normal. No rashes or lesions, except right buttock ulcer Labs/Imaging: Recent Results (from the past 72 hour(s)) CBC with auto differential Collection Time: 09/23/21 1:41 PM Result Value Ref Range WBC 7.9 3.8 - 9.9 K/cumm Hgb 11.7 (L) 11.9 - 15.5 g/dL Hct 35.0 (L) 35.6 - 45.5 % Plt 263 150 - 400 K/cumm MPV 9.2 9.1 - 12.3 fL RBC 3.71 (L) 3.90 - 5.20 M/cumm MCV 94.3 81.3 - 96.4 fL MCH 31.5 27.1 - 33.3 pg MCHC 33.4 32.3 - 35.7 g/dL RDW CV 11.7 11.1 - 14.9 % RDW SD 40.2 35.7 - 48.1 fL NRBC abs 0.00 0.00 - 0.01 K/cumm Comprehensive metabolic panel Collection Time: 09/23/21 1:41 PM Result Value Ref Range Sodium 140 135 - 145 mmol/L Potassium, pl 4.2 3.3 - 4.9 mmol/L Chloride 97 97 - 110 mmol/L CO2 35 (H) 22 - 32 mmol/L Anion gap 8 2 - 15 mmol/L BUN 12 8 - 25 mg/dL Creatinine 0.43 (L) 0.60 - 1.10 mg/dL Glucose 116 70 - 199 mg/dL Calcium 9.4 8.5 - 10.3 mg/dL Bilirubin, total 0.3 0.1 - 1.2 mg/dL Protein, pl 7.1 6.5 - 8.5 g/dL Albumin 4.1 3.5 - 5.0 g/dL Alk phos 137 (H) 40 - 130 Units/L ALT 15 7 - 45 Units/L AST 22 10 - 45 Units/L Urinalysis reflex to microscopic and culture Urine Collection Time: 09/23/21 1:41 PM Specimen: Urine Result Value Ref Range Color, ur Straw Yellow Clarity, ur Cloudy (A) Clear Specific gravity, ur 1.014 1.003 - 1.030 pH, urine 7.5 Protein, ur ql Trace Negative Glucose, ur ql Negative Negative Ketones, ur Negative Negative Bilirubin, ur Negative Negative Blood, ur Negative Negative Urobilinogen, ur <2.0 <2.0 mg/dL Nitrite, ur Negative Negative Leukocyte esterase, ur Negative Negative UA reflex comment Reflex conditions for microscopic UA and culture not met. Troponin I high-sensitivity series (baseline, 2hr, 4hr, 6hr) Collection Time: 09/23/21 1:41 PM Result Value Ref Range Trop I hs <4 <=17 ng/L Type and screen Collection Time: 09/23/21 1:41 PM Result Value Ref Range Sheng, indirect Negative ABO Rh A Positive aPTT Collection Time: 09/23/21 1:41 PM Result Value Ref Range aPTT 27 27 - 37 sec Protime-INR Collection Time: 09/23/21 1:41 PM Result Value Ref Range PT 11.6 9.5 - 13.6 sec INR 1.0 0.9 - 1.2 Influenza A/B, RSV, and COVID-19 PCR Nasopharyngeal Collection Time: 09/23/21 1:41 PM Specimen: Nasopharyngeal Result Value Ref Range COVID-19 RNA Negative Negative Influenza A RNA Negative Negative Influenza B RNA Negative Negative RSV RNA Negative Negative First COVID-19 test? No Employeed in healthcare? No status? No Group care resident? No Hospitalized? No Is patient in ICU? No Symptomatic as defined by CDC? No Differential, auto Collection Time: 09/23/21 1:41 PM Result Value Ref Range Neutrophil abs 5.2 1.7 - 6.5 K/cumm Imm gran abs 0.0 0.0 - 0.1 K/cumm Lymphocyte abs 1.9 0.8 - 3.3 K/cumm Monocyte abs 0.7 0.2 - 0.8 K/cumm Eosinophil abs 0.0 0.0 - 0.5 K/cumm Basophil abs 0.0 0.0 - 0.1 K/cumm Neutrophil pct 65.5 % Imm gran pct 0.4 % Lymphocyte pct 24.0 % Monocyte pct 9.3 % Eosinophil pct 0.5 % Basophil pct 0.3 % eGFR Collection Time: 09/23/21 1:41 PM Result Value Ref Range eGFR >90 90 - 130 mL/min/1.73 m2 Lipid panel Collection Time: 09/23/21 1:41 PM Result Value Ref Range Cholesterol 178 30 - 199 mg/dL Triglycerides 98 <=149 mg/dL HDL 50 >=40 mg/dL LDL, calculated 108 <=129 mg/dL Non-HDL Cholesterol 128 mg/dL Chol/HDL ratio 4 XR Spine Lumbar 2 or 3 Views Result Date: 09/23/2021 1. L2 compression fracture, better evaluated on same-day CT. 2. Severe chronic compression deformities of T11 and T12 with focal kyphosis. Dictated by: Jono Garnett M.D. The radiology attending physician has personally reviewed this study, and had reviewed and/or edited this written report and agrees with it. Electronically signed by: Kyle Monet MD XR Chest 1 Vw Portable Result Date: 09/23/2021 1 view of the chest is submitted for interpretation with comparison made to prior chest radiograph dated 08/25/2020. There has been interval removal of the previously noted endotracheal tube and enteric tube. There are mild bilateral pulmonary opacities, most compatible with subsegmental atelectasissuperimposed on a background of mild pulmonary edema. There are emphysematous changes in both lungs. No pneumothorax. The heart size and mediastinal contours stable. There is unchanged calcified atherosclerosis of the thoracic aorta. Tortuous thoracic aorta in course. Diffuse osteopenia. A reportedL2 burst fracture is not well evaluated on this single frontal radiograph of the chest. Dictated by: Vaughn Velázquez M.D. The radiology attending physician has personally reviewed this study, and had reviewed and/or edited this written report and agrees with it. Electronically signed by: Kyle Monet MD XR Outside Reference Result Date: 09/23/2021 These images are for Reference purposes only and have not been reviewed by [facility] Radiology. There will be no report generated by a [facility] Radiologist. Neuro CT MR Outside Consult Result Date: 09/23/2021 1. L2 compression fracture with approximately 20% [...] study was performed based upon the imaging andclinical condition at that time. Comparison with the prior report and clinical history is necessary. The provided images may or may not represent the [place] source data set and thus may contain changes that may lower the accuracy of this second-opinion interpretation. Dictated by: Gilda Redd M.D.The radiology attending physician has personally reviewed this study, and had reviewed and/or edited this written report and agrees with it. Electronically signed by: Carlos Gauthier M.D. Neuro CT MR Outside Consult Result Date: 09/23/2021 1. L2 compression fracture with approximately 20% [...] study was performed based upon the imaging andclinical condition at that time. Comparison with the prior report and clinical history is necessary. The provided images may or may not represent the [place] source data set and thus may contain changes that may lower the accuracy of this second-opinion interpretation. Dictated by: Gilda Redd M.D.The radiology attending physician has personally reviewed this study, and had reviewed and/or edited this written report and agrees with it. Electronically signed by: Carlos Gauthier M.D. Neuro CT MR Outside Consult Result Date: 09/23/2021 1. L2 compression fracture with approximately 20% [...] study was performed based upon the imaging andclinical condition at that time. Comparison with the prior report and clinical history is necessary. The provided images may or may not represent the [place] source data set and thus may contain changes that may lower the accuracy of this second-opinion interpretation. Dictated by: Gilda Redd M.D.The radiology attending physician has personally reviewed this study, and had reviewed and/or edited this written report and agrees with it. Electronically signed by: Carlos Gauthier M.D. Assessment and Plan: Principal Problem: Diagnosis unknown # L2 burst fx w/ 20% posterior loss and 3mm retropulsion - Orthospine consult - non -op - L spine precautions. No heavy lumbar lifting, bending, twisting. - PT/OT - Pain control - Consider IR Kyphoplasty or cement augmentation - call ortho spine if patient develops any concerning changes to their neurologic exam such as new weakness or loss of bowel/bladder function #COPD - home O2 3-4L - Home Albuterol inhaler and Atrovent PRN, Spiriva and Breo daily #CHF - Echo 08/25 EF 65% No AR seen, Mild MR, no , no MS, mild TV regurgitation, normal PV. #HTN - Home HCTZ 12.5mg daily - Home Metoprolol 25mg BID #Acute on Chronic pain - Home Gabapentin 100mg qHS - Home Percocet 10mg/ 325mg q 12hrs- held - Home Tramadol 50mg q 8 PRN - Tylenol 1gm q6hr CHET - Oxy 5mg q 4 PRN #Right buttock wound -POA - wound/ostomy consult Yael Momin NP Cosigned by Morgan Bronson MD at 09/25/2021 1:47 PM EMAIL MARKETER L MARKETER L MARKETER * Abena Gee - 09/24/2021 8:00 AM CST Occupational Therapy Occupational Therapy Initial Assessment NOTE:This is a summary note for the giron assessments completed during the evaluation session. For full details, review chart review for all flowsheets documented on by this Occupational Therapist on this date. Vital signs documented in vital signs flowsheet. Assessment Assessment Problem List: Decreased endurance, Decreased balance, Decreased functional mobility, Decreased ADL independence, Decreased IADL independence, Decreased trunk control for functional activities Barriers to Discharge: Current Mobility Status, Decreased caregiver support Barrier Comments: Fall risk Plan Plan Plan: Plan of care initiated, If this is the last note, consider this the discharge summary OT Recommendation and Plan Recommendation/Plan OT Recommendation: Inpatient Rehab Facility OT Recommendation/Plan Comments: Pt would beenfit from continued skilled OT services to improve balance, endurance, functional mobility, ADL and IADL independence OT Frequency: 5-7x/wk Comments: Pt did not ambulate within room 2/2 fatigue. Pt reports wearing oxygen in the home. Treatment/Interventions: ADL/IADL retraining, Balance Training, Compensatory technique education, Endurance training, Functional activity, Functional mobility training, Functional transfer training, Positioning, Strengthening, Therapeutic activity, Therapeutic exercise, Transfer training OT Equipment Recommended: Reverberatory Furnace Operator, Sock aid, Toilet aid, Grab bars OT - Next Appointment: 09/25/21 OT Evaluation Complete: Yes General Information General Chart Reviewed: Yes Session Type: Evaluation OT Received On: 09/24/21 Safe Environment: Arm Band Checked, Call Light within Reach, Notified RN, Patient found in Supine, Overbed Table within Reach (Pt left sitting up in chair w/ overhead table within reach) Subjective: Agreeable to Therapy Subjective Comment: Pt reports she has, trouble getting up Family/Caregiver Present: No Occupational Therapy-Patient Goal: Pt verbalized understanding to POC Precautions Precautions Precautions: Fall risk, Spinal/Back Braces/Orthoses: ([place] back brace for OOB activity) Precaution Handout Issued: No Precaution Comments: Verbally reviewed spinal precautions. Pt verbalized and demonstrated understanding during bed mobility and functional task Home Living Home Living Type of Home: House Home Layout: One level Home Access: Stairs to enter with rails Entrance Stairs-Rails: Both Entrance Stairs-Number of Steps: 7 Bathroom Shower/Tub: Tub/shower unit Bathroom Toilet: Standard Bathroom Equipment: Shower chair, Hand-held shower Bathroom Accessibility: Accessible Home Mobility Equipment: None Prior Function Prior Function Level of [place]: Independent functional transfers, Independent with ambulation, Needs assistance with ADLs Lives With: (Ex ) Receives Help From: Family, 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 (PT assistance available from daughter and personal coach. Pt reports having a personal coach come to the house 4 days a week.) Driving: No ADL Assistance: Needs assistance (Pt reports having assistance provided for showering) Instrumental ADL (IADL) Assistance: Needs assistance (Pt reports needing assistance for cooking, cleaning, shopping, and laundry) Vocational/Occupation: Retired Leisure : Hobbies-no Fall within the last 6 months: Yes Fall within the last 6 months comment: Pt reports the fall that lead to admission was the only fallshe has had in the last 6 months Prior Function Comments: Pt reports wearing oxygen while in the home. Activities of Daily Living Grooming Grooming: Where assessed: (Standing in front of chair with arms) Grooming: Level of assistance: Moderate Assist (Sup for task. Mod A for balance) Grooming: Assistance with: Increased time to complete, Safety LE Dressing LE Dressing: Where assessed: Sitting, Chair LE Dressing: Level of assistance: Moderate Assist (Mod A for task. Mod A for balance) LE Dressing: Assistance with: Increased time to complete, Don/doff R sock, Don/doff L sock, Thread RLE into pants, Thread LLE into pants, Pull up over hips, Safety LE Dressing: Equipment Utilized: Reverberatory Furnace Operator, Sock aid Toileting Toileting: Where assessed: Chair (Standing in front of chair) Toileting: Equipment utilized: Toilet aid Toileting: Level of assistance: Moderate Assist (Mod A for task. Mod A for balance.) Toileting: Assistance with: Increased time to complete, Clothing management up, Clothing managementdown, Perineal hygiene, Anterior, Posterior Toilet Transfers Toilet Transfer From: Bed Toilet Transfer Type: To Toilet Transfer to: (simulated BSC w/ chair w/ arms) Toilet Transfer Technique: (Stand and step ~5 steps to chair w/ arms) Toilet Transfer: Equipment: Hand hold Toilet Transfers: Minimal assistance Toilet Transfers Comments: For force production, safety, balance, and controlled descent Pain Pain Assessment Pain Assessment: No/denies pain Pain Score: 0 - No pain Cognition Cognition Overall Cognitive Status: Within Functional Limits (Pt scored 18/22 on [place] Blind) Arousal/Alertness: Alert, Appropriate responses to stimuli Attention Span: Attends with cues to redirect Memory: Decreased short term memory Current communication: Appears Intact Orientation : Oriented X4 (person, place, time, situation) Following Commands: Follows all commands and directions without difficulty Safety Judgment: Good awareness of safety precautions Awareness of Errors: Good awareness of errors made Insight: Fully aware of deficits Problem Solving: Assistance required to generate solutions Compliance/Behavior: Easy to engage Perseveration: Not present [place] Cognitive Assessment-Blind (MOCA-Blind) MOCA-Blind Version: Version 3 Memory-Blind: Memory not scored Attention-Blind: 5 Language-Blind: 2 Abstraction-Blind: 2 Delayed Recall-Blind: 3 Orientation-Blind: 6 Education Level-Blind: Education Greater than 12 years MOCA Total Score-Blind: 18 Score Evaluation-Blind: 18-22 Normal MOCA-Blind Comments: Pt reports having difficulty w/ short term memory prior to admission 6 Clicks Daily Activity - 6 Clicks Putting on and taking off regular lower body clothing: A lot Bathing: A lot Toileting: A lot Putting on and taking off upper body clothing: A Little Personal Grooming: A lot Eating Meals: None Total Score (range 6-24): 15 Score Interpretation: 15 Balance Static Sitting Balance Static Sitting-Balance Support: No upper extremity supported, Feet supported Static Sitting-Sitting Surface: Bed Static Sitting-Level of Assistance: Close supervision Static Sitting-Comment/# of Minutes: For safety Dynamic Sitting Balance Dynamic Sitting-Balance Support: No upper extremity supported, Feet supported Dynamic Sitting-Balance: Forward lean, Reaching for objects (During functional task of LB dressing) Dynamic Sitting-Sitting Surface: Chair Dynamic Sitting-Level of Assistance: Close supervision Dynamic Sitting-Comments: For safety Static Standing Balance Static Standing-Balance Support: No upper extremity supported Static Standing-Standing Surface: Floor Static Standing-Level of Assistance: Moderate assistance Static Standing-Comment/# of Minutes: For safety, holding weight, and maintaining upright posture Dynamic Standing Balance Dynamic Standing-Balance Support: Unilateral upper extremity supported (on table) Dynamic Standing-Balance: Lateral lean, Forward lean, Reaching for objects (During functional task of grooming and toileting) Dynamic Standing-Standing Surface: Floor Dynamic Standing-Level of Assistance: Moderate assistance Dynamic Standing-Comments: For safety, holding weight, and maintaining upright posture Transfers Transfers Transfer: Yes (Gait belt donned for safety) Transfer 1 Transfer From 1: Bed, Sit Transfer Type 1: To Transfer to 1: Chair with arms Technique 1: (Stand and step ~5 steps to chair w/ arms) Transfer Device 1: Hand held assist Transfer Level of Assistance 1: Minimum Assist Trials/Comments 1: For safety, balance, force production, and controlled descent Transfers 2 Transfer From 2: Sit, Chair with arms Transfer Type 2: To and from Transfer to 2: Stand Technique 2: Sit to stand, Stand to sit Transfer Device 2: Hand held assist Transfer Level of Assistance 2: Minimum Assist Trials/Comments 2: For safety, balance, force production, and controlled descent Bed Mobility Bed Mobility Bed Mobility: Yes Bed Mobility 1 Bed Mobility From 1: Supine Bed Mobility Type 1: To and from Bed Mobility to 1: Side lying-right, Side lying-left Level of Assistance 1: Standby Assist Bed Mobility Comments 1: Log rolling during donning of aspen brace Bed Mobility 2 Bed Mobility From 2: Supine Bed Mobility Type 2: To Bed Mobility to 2: Edge of Bed Level of Assistance 2: Minimum Assist Bed Mobility Comments 2: For elevating trunk and moving hips forward RUE Assessment RUE Assessment RUE Assessment: Within Functional Limits LUE Assessment LUE Assessment LUE Assessment: Within Functional Limits Other Comments Other Comments Comments: Pt did not ambulate within room 2/2 fatigue. Pt reports wearing oxygen in the home. OT Goals Multi-Disciplinary Problems (from Occupational Therapy) Active Problems Problem: Dressings Lower Extremities Start Date: 09/24/21 Goal Start Date Expected End Date End Date STG - Patient to complete lower body dressing 09/24/21 10/01/21 -- Goal Details: With Min A and use of AE Problem: Grooming Start Date: 09/24/21 Goal Start Date Expected End Date End Date STG - Patient will complete grooming 09/24/21 10/01/21 -- Goal Details: With Min A Problem: Toileting Start Date: 09/24/21 Goal Start Date Expected End Date End Date STG - Patient will complete toileting tasks with 09/24/21 10/01/21 -- Goal Details: With min A and use of AE Problem: Transfers Start Date: 09/24/21 Goal Start Date Expected End Date End Date STG - Patient will perform toilet transfer 09/24/21 10/01/21 -- Goal Details: To toilet with min A For questions, please review the treatment team and contact the occupational therapist currently assigned to this patient. If an occupational therapist is not assigned to this patient, please call [phone]. Abena Gee, DARIAN reviewed by Hailee Titus 09/24/21 Cosigned by Hailee Titus, ODALYS at 09/24/2021 3:05 PM EMAIL MARKETER L MARKETER L MARKETER * Ramonita Cordero RN - 09/24/2021 7:46 AM CST Assessment of patient???s baseline is established at the beginning of the shift in flowsheets. Patient reassessed per order, unexpected findings and/or deviations from baseline are captured in flowsheets. Frequent safety checks and comfort rounds provided. Orders and/or nursing care completed as indicated. Patient monitored for response to interventions and treatments as documented in flowsheets. Plan of care discussed with patient/reimbursement representative, including as it relates to Principal Problem: Diagnosis unknown Patient progressing. Clinical goals for the shift; pt will remain free from falls, pt will maintaincomfort, pt will report adequate pain control, pt will verbalize understanding of plan of care. Education provided includes Discharge Planning, Fall Prevention, Pain Management and Self-Injurious Behavior Risk. Patient and/or reimbursement representative Verbalizes understanding. Will continue to monitor. L MARKETER * Everett Olson MD - 09/23/2021 11:27 PM CST SURGERY ED ACCEPT NOTE Phoebe Hillman : 1940 Subjective Phoebe Hillman is a 80 year old female with chronic back pain who fell approximately a week ago presents to the ED with new L2 compression fracture. Ortho has decided to manage this non-operatively.She has been admitted for pain control and therapy. She is resting comfortably. Pain well controlled. Denies chest pain, SOB, abdominal pain, vomiting, numbness/tingling in her extremities, perianal paresthesias or loss of bowel/bladder function. She does endorse some nausea but attributes it to her decreased appetite the past few days. She struck her head when she fell but denies LOC. Objective BP (!) 175/75 Pulse 66 Temp 36.9 ??C (98.5 ??F) (Oral) Resp 18 SpO2 96% General: Laying in bed, awake, in no acute distress Head: Normocephalic and atraumatic Eyes: Sclera anicteric, EOMI Neck: Trachea midline, no JVD Pulmonary: Non-labored breathing, equal excursion bilaterally Cardiovascular: Regular rate, well perfused Abdomen: Non distended, non-tender to palpation, no rebound tenderness Extremities: No cyanosis, clubbing, or edema Musculoskeletal: Grossly normal range of motion Neuro: Alert and oriented, grossly non-focal Psych: Appropriate and cooperative [place]: Drains: bloody to SS output Incisions/Dressing: incision with no erythema, swelling, or drainage / Dressing c/d/i Assessment/Plan 80 y.o. 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 1.030 pH, urine 7.5 Protein, ur ql Trace Negative Glucose, ur ql Negative Negative Ketones, ur Negative Negative Bilirubin, ur Negative Negative Blood, ur Negative Negative Urobilinogen, ur <2.0 <2.0 mg/dL Nitrite, ur Negative Negative Leukocyte esterase, ur Negative Negative UA reflex comment Reflex conditions for microscopic UA and culture not met. aPTT Collection Time: 09/23/21 1:41 PM Result Value Ref Range aPTT 27 27 - 37 sec Protime-INR Collection Time: 09/23/21 1:41 PM Result Value Ref Range PT 11.6 9.5 - 13.6 sec INR 1.0 0.9 - 1.2 Differential, auto Collection Time: 09/23/21 1:41 PM Result Value Ref Range Neutrophil abs 5.2 1.7 - 6.5 K/cumm Imm gran abs 0.0 0.0 - 0.1 K/cumm Lymphocyte abs 1.9 0.8 - 3.3 K/cumm Monocyte abs 0.7 0.2 - 0.8 K/cumm Eosinophil abs 0.0 0.0 - 0.5 K/cumm Basophil abs 0.0 0.0 - 0.1 K/cumm Neutrophil pct 65.5 % Imm gran pct 0.4 % Lymphocyte pct 24.0 % Monocyte pct 9.3 % Eosinophil pct 0.5 % Basophil pct 0.3 % Imaging review: XR Outside Reference Result Date: 09/23/2021 These images are for Reference purposes only and have not been reviewed by [facility] Radiology. There will be no report generated by a [facility] Radiologist. Neuro CT MR Outside Consult Result Date: 09/23/2021 1. L2 compression fracture with approximately 20% [...] study was performed based upon the imaging andclinical condition at that time. Comparison with the prior report and clinical history is necessary. The provided images may or may not represent the [place] source data set and thus may contain changes that may lower the accuracy of this second-opinion interpretation. Dictated by: Gilda Redd M.D.The radiology attending physician has personally reviewed this study, and had reviewed and/or edited this written report and agrees with it. Electronically signed by: Carlos C. Abrahan, M.D. Neuro CT MR Outside Consult Result Date: 09/23/2021 1. L2 compression fracture with approximately 20% [...] study was performed based upon the imaging andclinical condition at that time. Comparison with the prior report and clinical history is necessary. The provided images may or may not represent the [place] source data set and thus may contain changes that may lower the accuracy of this second-opinion interpretation. Dictated by: Gilda Redd M.D.The radiology attending physician has personally reviewed this study, and had reviewed and/or edited this written report and agrees with it. Electronically signed by: Carlos Gauthier M.D. Neuro CT MR Outside Consult Result Date: 09/23/2021 1. L2 compression fracture with approximately 20% [...] study was performed based upon the imaging andclinical condition at that time. Comparison with the prior report and clinical history is necessary. The provided images may or may not represent the [place] source data set and thus may contain changes that may lower the accuracy of this second-opinion interpretation. Dictated by: Gilda Redd M.D.The radiology attending physician has personally reviewed this study, and had reviewed and/or edited this written report and agrees with it. Electronically signed by: Carlos Gauthier M.D. Radiology Review: I have reviewed the imaging with the following findings: OSH CT L spine demonstrating L2 comp fx with loss in height in comparison to previous CT CAP. T12 fx unchanged. Assessment/Plan Phoebe Hillman is a 80 y.o. female who presents with above. PROCEDURE: N/A PLAN: 1. Admit GTS 2. Plan PT/OT. Nonoperative management. 3. L spine precautions. No heavy lumbar lifting, bending, twisting. 4. Up with PT with assistive device 5. Diet per primary 6. Pain control 7. DVT ppx: Per primary 8. Patient may benefit from IR Kyphoplasty or cement augmentation. Consult per primary team. 9. Please call ortho spine if patient develops any concerning changes to their neurologic exam suchas new weakness or loss of bowel/bladder function Carson Agee MD Department of Orthopaedic Surgery, PGY-1 [facility] Please use [email or web address] to find phone number. ?? During normal business hours - If you know the resident's name on the appropriate orthopaedic surgery team, please use [facility] to page resident directly. ?? If you have questions overnight or can't reach the appropriate resident, please call the Orthopaedic Surgery Consult Pager [phone] to have your questions answered or be directed to the correct Orthopaedic Surgery resident. Cosigned by Jeffrey Dow MD at 09/26/2021 7:03 AM EMAIL MARKETER L MARKETER L MARKETER L MARKETER L MARKETER documented in this encounter Nursing Notes * Shira Hassan, RN - 09/25/2021 11:59 PM CST .Assessment of patient???s baseline is established at the beginning of the shift in flowsheets. Patient reassessed per order, unexpected findings and/or deviations from baseline are captured in flowsheets. Frequent safety checks and comfort rounds provided. Orders and/or nursing care completed as indicated. Patient monitored for response to interventions and treatments as documented in flowsheets.. Plan of care discussed with patient/reimbursement representative, including as it relates to Principal Problem: Diagnosis unknown Patient progressing. Clinical goals for the shift, vss, no falls, pain control,skin care improved mobility. Education provided includes Fall Prevention, Infection Prevention: hygiene, dressing to buttocks,, New Anticoagulants and other VTE Prevention: lovenox, Pain Management and Skin Breakdown Prevention/Treatment. Patient and/or reimbursement representative Verbalizes understanding. Will continue to monitor. L MARKETER * Belinda Keith - 09/25/2021 2:50 PM CST Wound/Ostomy Service Initial Consult Note Admit Date: 09/23/2021 11:51 AM Today's Date: 09/25/21 Day of Hospital Stay: Hospital Day: 3 Reason for Consult: Pressure injury to right buttock Nutrition Body mass index is 21.95 kg/m??. Adult Diet Regular Skin/Wound Assessment : Patient was evaluated while she was standing up by the bed side commode. Patient has a small right lower buttock wound. Does not appear to be a pressure injury. Not on a bony prominence and patient is well ambulatory. Patient's melissa-wound skin is erythematous and the wound opening is 100% yellow moist slough. Does not have the typical appearance of a pressure injury - likely to be an abscess. Patient reported it used to be raised up, but now it's flattened out a little. notified Anuradha BOSE of this open wound likely not a pressure injury, possibly an abscess. Education: none Recommendations: Anuradha BOSE to evaluate further for possible abscess Plan of care discussed with: Anuradha BOSE, Luma MARTINEZ Questions answered: Yes Wound/Ostomy will follow patient: no Any questions or concerns please contact the Wound/Ostomy department at [phone] Belinda Keith RN CWOCN L MARKETER * Laura Tompkins RN - 09/25/2021 1:53 PM CST Patient presented from:[facility] Arrived by:Ems Arrived to:ED Admitted:Floor Readmit:No Presenting mechanism/injuries:Fall with L2 burst fracture Interventions:pain control, pt/ot Needs:Pt/OT SNF vs IPR Support:Daughter Recommendations:Pt/OT SNF vs IPR Participation:as tolerated with assist CD Resources:NA Daughter at bedside during visit Business cards left with education and resource packet for additional questions/needs Laura Ballesteros Nurse Coordinator Trauma and Acute Care Surgery [phone] L MARKETER * Shira Hassan RN - 09/25/2021 2:21 AM CST .Assessment of patient???s baseline is established at the beginning of the shift in flowsheets. Patient reassessed per order, unexpected findings and/or deviations from baseline are captured in flowsheets. Frequent safety checks and comfort rounds provided. Orders and/or nursing care completed as indicated. Patient monitored for response to interventions and treatments as documented in flowsheets.. Plan of care discussed with patient/reimbursement representative, including as it relates to Principal Problem: Diagnosis unknown Patient progressing. Clinical goals for the shift, vss, no falls, pain control,skin care improved mobility. Education provided includes Fall Prevention, Infection Prevention: hygiene, dressing to buttocks,, New Anticoagulants and other VTE Prevention: lovenox, Pain Management and Skin Breakdown Prevention/Treatment. Patient and/or reimbursement representative Verbalizes understanding. Will continue to monitor. L MARKETER documented in this encounter ED Notes * Maday Ocampo RN - 09/23/2021 10:57 PM CST Clinical status re-evaluated by ED Case Management. Patient remains in ED as boarder. Still appropriate for inpatient Maday Ocampo RN 09/23/21 4245 L MARKETER * Bere Souza MD - 09/23/2021 12:45 PM CST HPI Chief Complaint Patient presents with ??? Back Pain ??? Fall Patient is a 80-year-old female with PMHx COPD on 3L home O2, GERD, CHF, hx C- spine fx, HTN, abnormal gait who presents as a transfer from an OSH for evaluation of L2 compression fracture. Of note, patient is a poor historian. Patient states that she had a fall this morning after she tripped on heroxygen tubing, landing on her left side. Reports head injury but no LOC. Currently complaining of headache, neck pain, left shoulder pain, and left hip pain. Patient denies any vision changes, numbness, tingling, or weakness. Denies any preceding chest pain, shortness of breath, lightheadedness, nausea, or vomiting. Presented to an outside hospital, where imaged was performed with CT head/C-spine, CT L-spine, x-ray left shoulder, x-ray left hip, an x-ray pelvis. CT L-spine on outside read notable for age-indeterminate L2 burst fracture with 20% posterior vertebral body height loss and 3mm retropulsion showing minimal central canal stenosis; also chronic and unchanged T11/T12 compression frac tures. CT head/Cspine unremarkable (chronic findings); XR L shoulder unremarkable. XR pelvis showing likely chronic subluxation along pubic symphysis. Patient states she is not on anticoagulation. Patient was transferred to this ED for further evaluation and management, spine consult. Patient History: Patient Active Problem List Diagnosis Date Noted ??? Diagnosis unknown 09/23/2021 ??? Abnormal gait 12/28/2020 ??? Impairment of balance 12/28/2020 ??? Weakness 12/28/2020 ??? Type III fracture of odontoid process, with routine healing, subsequent encounter 12/28/2020 ??? Lumbar compression fracture, closed, initial encounter ([facility]) 12/28/2020 ??? Chronic respiratory failure ([facility]) 11/04/2020 ??? At risk for venous thromboembolism (VTE) 09/16/2020 ??? Syncope 09/13/2020 ??? Closed odontoid fracture with type III morphology ([facility]) 09/11/2020 ??? Acute pain due to trauma 09/11/2020 ??? Vitamin D deficiency 08/29/2020 ??? GERD (gastroesophageal reflux disease) 08/27/2020 ??? Chronic obstructive pulmonary disease with acute exacerbation (CMS/HCC) ([facility]) 08/23/2020 ??? HTN (hypertension) 08/23/2020 ??? Anxiety 02/15/2020 ??? Chronic congestive heart failure (CMS/HCC) ([facility]) 02/15/2020 ??? Depression 02/15/2020 ??? Pulmonary hypertension, moderate to severe (CMS/HCC) (HCC) 02/15/2020 ??? Sleep apnea 02/15/2020 Past Medical History: Diagnosis Date ??? COPD (chronic obstructive pulmonary disease) (CMS/HCC) ??? Hypertension ??? Thoracic spine fracture (CMS/HCC) 3 months ago No past surgical history on file. Family History Problem Relation Age of Onset ??? No Known Problems Mother ??? No Known Problems Father Social History Tobacco Use ??? Smoking status: Former Smoker Quit date: 08/23/2004 Years since quittin.0 Social History Social History Narrative Lives with partner at home in [place], [place]. Review of Systems Review of Systems Constitutional: Negative for chills and fever. HENT: Negative for congestion. Eyes: Negative for redness and visual disturbance. Respiratory: Negative for cough and shortness of breath. Cardiovascular: Negative for chest pain. Gastrointestinal: Negative for abdominal pain, diarrhea, rectal pain and vomiting. Genitourinary: Negative for dysuria. Musculoskeletal: Positive for back pain and neck pain. Skin: Negative for wound. Neurological: Positive for headaches. Negative for weakness and numbness. Hematological: Does not bruise/bleed easily. Physical Exam ED Triage Vitals Temp Pulse Resp BP SpO2 09/23/21 1156 09/23/21 1156 09/23/21 1156 09/23/21 1156 09/23/21 1156 36.9 ??C (98.5 ??F) 86 16 (!) 159/105 99 % Temp src Heart Rate Source Patient Position BP Location FiO2 (%) 09/23/21 1156 09/23/21 1210 09/23/21 1210 09/23/21 1210 -- Oral Monitor Lying Right arm Physical Exam Vitals and nursing note reviewed. Constitutional: General: She is not in acute distress. Appearance: She is well-developed. HENT: Head: Normocephalic and atraumatic. Mouth/Throat: Mouth: Mucous membranes are moist. Eyes: Extraocular Movements: Extraocular movements intact. Conjunctiva/sclera: Conjunctivae normal. Pupils: Pupils are equal, round, and reactive to light. Neck: Comments: No bony tenderness to palpation or step-offs over the C-spine Cardiovascular: Rate and Rhythm: Normal rate and regular rhythm. Heart sounds: Normal heart sounds. No murmur heard. Pulmonary: Effort: Pulmonary effort is normal. No respiratory distress. Comments: Coarse breath sounds throughout with scattered end-expiratory wheezes Abdominal: General: There is no distension. Palpations: Abdomen is soft. Tenderness: There is no abdominal tenderness. There is no guarding. Musculoskeletal: Cervical back: Neck supple. Comments: No peripheral edema Bony tenderness to palpation over the L-spine Skin: General: Skin is warm and dry. Neurological: Mental Status: She is alert and oriented to person, place, and time. Comments: CN II-XII intact, strength 5/5 in UE/LE bilaterally, sensation intact to light touch throughout MDM Patient is a 80-year-old female with PMHx COPD on 3L home O2, GERD, CHF, hx C- spine fx, HTN, abnormal gait who presents as a transfer from an OSH for evaluation of fall and L2 compression fracture. Patient states she tripped and fell earlier today, resulting in back pain and left shoulder and hip pain. Imaging at outside hospital was concerning for new L2 compression fracture with some retropulsion. She was transferred to this ED for spine consult and further management. On arrival, patient is afebrile, mildly hypertensive in setting of pain with otherwise normal vitals, satting well on home 3 L O2. On exam, patient has tenderness over the L-spine. Cardiopulmonary exam is notable for coarse breath sounds throughout, and abdomen is soft/nontender. Differential diagnosis is known L2 fracture; will upload outside imaging for in-house read to evaluate for other potential spinal fracture, skull fracture, ICH but less likely given outside read; less likely arrhythmia, ACS but will obtain screening cardiac labs and CXR given somewhat unclear history. Plan: Labs, EKG, CXR, upload outside imaging, spine consult, GTS consult Dispo: Per above Attending Summary of Care ED Course as of 09/23/21 1903 Time: 09/23 5644 Comment: Ortho spine to see. By: Bere Souza MD Time: 09/23 1551 Comment: Per ortho spine, plan nonop. Requesting GTS consult and admit. By: Bere Souza MD Time: 09/23 1554 Comment: GTS to see. By: Bere Souza MD Closed wedge compression fracture of L2 vertebra, initial encounter (HCC) Diagnosis unknown Frail elderly Fall, initial encounter Anemia, unspecified type Elevated alkaline phosphatase level Bere Souza MD Resident 09/23/212131 Cosigned by Breanna Sutton MD at 10/02/2021 6:05 AM EMAIL MARKETER L MARKETER L MARKETER * Breanna Sutton MD - 09/23/2021 12:44 PM CST This is an ED attending attestation note. Please see the resident note for full H and P on this patient. I did see and examine the patient. I discussed the case with the resident. I reviewed the images in medical records. I agree with the assessment and plan. Briefly this 80-year-old female who reports a known history of lumbar spine fracture now returns after another fall with worse back pain. On exam she is awake and alert laying in bed. Chest is coarse. Heart is regular. Abdomen is soft and nontender. She has good strength and movement of bilateral lower extremities. Breanna Sutton MD 09/23/21 1245 L MARKETER * Britany Cabral RN - 09/23/2021 11:59 AM CST Patient came in to the ED via EMS from [facility]. As per pt. She fell this morning around 0530hwhen she tried to get up off bed and drink water. On her way, she tripped on her oxygen cord, fell on ground (wood) and hit her hips, left shoudler and head. Denies LOC. Patient normally wear O2 at home 3L via NC at baseline. Pt. Was diagnosed with L2 fracture, currently on LS brace and was sent here for ortho evaluation. Given morphine 4mg IV enroute. PS now 09/14. A&Ox4. L MARKETER * Britany Cabral RN - 09/23/2021 11:51 AM CST Bed: ED1-12 Expected date: 09/23/21 Expected time: 9:46 AM Means of arrival: Ambulance Comments: Britany Cabral RN 09/23/21 1151 L MARKETER documented in this encounter Miscellaneous Notes * Plan of Care - Savanna Ellison MSW - 09/26/2021 11:43 AM CST Per [facility] rounds with Promotional Model, Yardage Control Operator Forming, Charge Nurse, and MD, the patient is medically stable for discharge at this time. Problem: Ensure acute medical needs are met and that patient has a safe discharge plan. Goal: Secure a placement that patient/family are agreeable with and ensure patient has continuum ofcare. Discharge plan: ARIADNA reviewed referrals via [employer]. [facility] is able to accept patient, pending negative covid test. SW met with patient at bedside to discuss discharge planningupdates. Patient is agreeable to dc plan. SW attempted to contact and left voicemail for patient's daughter, Joanna, to report discharge plan updates. ARIADNA messaged [facility] [employer] SUPERVISOR to order covid test. Anticipated discharge date pending today vs tomorrow, per covid test results. Insurance: [facility] ADD: 09/26-09/27 SW to follow. ADRIANNA Castillo L MARKETER * ECIN Note - Savanna Ellison MSW - 09/25/2021 3:34 PM CST Images from the original note were not included. Patient Information: Wound Info Only Patient Lines/Drains/Airways Status Active Wound / Pressure ulcer / [place] / Negative Pressure Wound Pressure Ulcer/Pressure Injury 09/23/21 Right Buttocks Date First Assessed 09/23/21 Site Buttocks Time First Assessed 2347 Days 1 Present on Hospital Admission: Yes 2 RN Skin Validation (comment name): JUAN Leonard Present on Transfer to Nursing Division: Yes Location Orientation: Right Assessments Row Name 09/24/21 2100 09/24/21 0800 09/23/21 2335 Pressure Ulcer Status Evolving Unchanged Unchanged Description Non-intact, shallow ulcer (c/w Stage 2, open, no depth, no slough) Non-intact, shallow ulcer (c/w Stage 2, open, no depth, no slough) Non-intact, shallow ulcer (c/w Stage 2, open, no depth, no slough) Staging Stage 2 Stage 2 Stage 2 Melissa-wound Assessment Dry;Intact Dry;Intact Dry;Intact Dressing Status Clean/Dry/Intact Clean/Dry/Intact New;Clean/Dry/Intact Dressing/Intervention Foam lifted/reapplied -- -- , Vitals Info Only Vital Signs Report 09/24 0700 09/25 0659 09/25 0700 09/25 1534 Most Recent Temp (??C) 36.2 - 37 36.9 (98.4) 09/25 0430 Pulse 74 - 92 83 - 89 89 09/25 1523 Resp - 18 09/25 0430 SpO2 (%) 94 - 100 95 - 98 95 09/25 1523 BP 131/59 - 182/78 153/88 - 181/94 168/82 09/25 1523 MAP (mmHg) 78 - 113 87 - 106 97 09/25 1523 , Oxygen Info Only Default Flowsheet Data (most recent) Endurance Tests No documentation. Default Flowsheet Data (last 48 hours) Oxygen Row Name 09/25/21 1523 09/25/21 1505 09/25/21 0907 09/25/21 0825 09/25/21 0430 Oxygen Therapy/Pulse Ox O2 Therapy Supplemental oxygen Supplemental oxygen -- -- Supplemental oxygen O2 Del Method Nasal cannula Nasal cannula -- -- Nasal cannula O2 Flow Rate (L/min) 3 L/min 3 L/min -- -- 3 L/min SpO2 95 % 97 % 98 % 97 % 100 % Patient Activity -- -- -- -- At rest Row Name 09/24/21 2350 09/24/21 2005 09/24/21 1400 09/24/21 0934 09/24/21 0912 Oxygen Therapy/Pulse Ox O2 Therapy Supplemental oxygen Supplemental oxygen -- -- Supplemental oxygen O2 Del Method Nasal cannula Nasal cannula -- -- Nasal cannula O2 Flow Rate (L/min) 3 L/min 3 L/min -- -- 3 L/min SpO2 94 % 98 % 99 % 99 % 98 % Patient Activity At rest At rest -- -- -- Row Name 09/24/21 0800 09/24/21 0330 09/24/21 0045 09/23/21 2335 09/23/21 2030 Oxygen Therapy/Pulse Ox O2 Therapy Supplemental oxygen Supplemental oxygen Supplemental oxygen -- -- O2 Del Method Nasal cannula -- -- -- -- O2 Flow Rate (L/min) -- 3 L/min 3 L/min -- -- SpO2 99 % 98 % 98 % 96 % 96 % Row Name 09/23/21 1946 09/23/21 1800 09/23/21 1730 09/23/21 1700 09/23/21 1630 Oxygen Therapy/Pulse Ox SpO2 93 % 95 % 97 % 97 % 98 % Row Name 09/23/21 1600 Oxygen Therapy/Pulse Ox SpO2 97 % L MARKETER * ECIN Note - Savanna Ellison MSW - 09/25/2021 3:34 PM CST Images from the original note were not included. Patient Information: OT Eval and Treat Last 72 Hours OT Evaluation Row Name 09/24/21 0800 Chart Reviewed Yes -FK Session Type Evaluation -FK OT Received On 09/24/21 -FK Safe Environment Arm Band Checked;Call Light within Reach;Notified RN;Patient found in Supine;Overbed Table within Reach Pt left sitting up in chair w/ overhead table within reach -FK Subjective Agreeable to Therapy -FK Subjective Comment Pt reports she has, trouble getting up -FK Family/Caregiver Present No -FK Occupational Therapy-Patient Goal Pt verbalized understanding to POC -FK Precautions Fall risk;Spinal/Back -FK Braces/Orthoses -- [place] back brace for OOB activity -FK Precaution Handout Issued No -FK Precaution Comments Verbally reviewed spinal precautions. Pt verbalized and demonstrated understanding during bed mobility and functional task -FK Type of Home House -FK Home Layout One level -FK Home Access Stairs to enter with rails -FK Entrance Stairs-Rails Both -FK Entrance Stairs-Number of Steps 7 -FK Bathroom Shower/Tub Tub/shower unit -FK Bathroom Toilet Standard -FK Bathroom Equipment Shower chair;Hand-held shower -FK Bathroom Accessibility Accessible -FK Home Mobility Equipment None -FK Level of [place] Independent functional transfers;Independent with ambulation;Needs assistancewith ADLs -FK Lives With -- Ex -FK Receives Help From Family;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 PT assistance available from daughter and personal coach. Pt reports having a personal coach come to the house 4 days a week. -FK Driving No -FK ADL Assistance Needs assistance Pt reports having assistance provided for showering -FK Instrumental ADL (IADL) Assistance Needs assistance Pt reports needing assistance for cooking, cleaning, shopping, and laundry -FK Vocational/Occupation Retired -FK Leisure Hobbies-no -FK Fall within the last 6 months Yes -FK Fall within the last 6 months comment Pt reports the fall that lead to admission was the only fall she has had in the last 6 months -FK Prior Function Comments Pt reports wearing oxygen while in the home. -FK ADLS (WDL) X -FK Grooming: Where assessed -- Standing in front of chair with arms -FK Grooming: Level of assistance Moderate Assist Sup for task. Mod A for balance -FK Grooming: Assistance with Increased time to complete;Safety -FK LE Dressing: Where assessed Sitting;Chair -FK LE Dressing: Level of assistance Moderate Assist Mod A for task. Mod A for balance -FK LE Dressing: Assistance with Increased time to complete;Don/doff R sock;Don/doff L sock;Thread RLE into pants;Thread LLE into pants;Pull up over hips;Safety -FK LE Dressing: Equipment Utilized Reverberatory Furnace Operator;Sock aid -FK Toileting: Where assessed Chair Standing in front of chair -FK Toileting: Equipment utilized Toilet aid -FK Toileting: Level of assistance Moderate Assist Mod A for task. Mod A for balance. -FK Toileting: Assistance with Increased time to complete;Clothing management up;Clothing management down;Perineal hygiene;Anterior;Posterior -FK Toilet Transfer From Bed -FK Toilet Transfer Type To -FK Toilet Transfer to -- simulated BSC w/ chair w/ arms -FK Toilet Transfer Technique -- Stand and step ~5 steps to chair w/ arms -FK Toilet Transfer: Equipment Hand hold -FK Toilet Transfers Minimal assistance -FK Toilet Transfers Comments For force production, safety, balance, and controlled descent -FK Pain Assessment No/denies pain -FK Pain Score 0 - No pain -FK Current Vision Wears glasses only for reading -FK Overall Cognitive Status WFL Pt scored 18/ on [place] Blind -FK Arousal/Alertness Alert;Appropriate responses to stimuli -FK Attention Span Attends with cues to redirect -FK Memory Decreased short term memory -FK Current communication Appears Intact -FK Orientation Oriented X4 (person, place, time, situation) -FK Following Commands Follows all commands and directions without difficulty -FK Safety Judgment Good awareness of safety precautions -FK Awareness of Errors Good awareness of errors made -FK Insight Fully aware of deficits -FK Problem Solving Assistance required to generate solutions -FK Compliance/Behavior Easy to engage -FK Perseveration Not present -FK Light Touch WFL -FK Fine Motor WFL -FK Serial Opposition WFL -FK Balance Yes -FK Static Sitting-Balance Support No upper extremity supported;Feet supported -FK Static Sitting-Sitting Surface Bed -FK Static Sitting-Level of Assistance Close supervision -FK Static Sitting-Comment/# of Minutes For safety -FK Dynamic Sitting-Balance Support No upper extremity supported;Feet supported -FK Dynamic Sitting-Balance Forward lean;Reaching for objects During functional task of LB dressing -FK Dynamic Sitting-Sitting Surface Chair -FK Dynamic Sitting-Level of Assistance Close supervision -FK Dynamic Sitting-Comments For safety -FK Static Standing-Balance Support No upper extremity supported -FK Static Standing-Standing Surface Floor -FK Static Standing-Level of Assistance Moderate assistance -FK Static Standing-Comment/# of Minutes For safety, holding weight, and maintaining upright posture -FK Dynamic Standing-Balance Support Unilateral upper extremity supported on table -FK Dynamic Standing-Balance Lateral lean;Forward lean;Reaching for objects During functional task of grooming and toileting -FK Dynamic Standing-Standing Surface Floor -FK Dynamic Standing-Level of Assistance Moderate assistance -FK Dynamic Standing-Comments For safety, holding weight, and maintaining upright posture -FK Bed Mobility Yes -FK Bed Mobility From 1 Supine -FK Bed Mobility Type 1 To and from -FK Bed Mobility to 1 Side lying-right;Side lying-left -FK Level of Assistance 1 Standby Assist -FK Bed Mobility Comments 1 Log rolling during donning of aspen brace -FK Bed Mobility From 2 Supine -FK Bed Mobility Type 2 To -FK Bed Mobility to 2 Edge of Bed -FK Level of Assistance 2 Minimum Assist -FK Bed Mobility Comments 2 For elevating trunk and moving hips forward -FK Transfer Yes Gait belt donned for safety -FK Transfer From 1 Bed;Sit -FK Transfer Type 1 To -FK Transfer to 1 Chair with arms -FK Technique 1 -- Stand and step ~5 steps to chair w/ arms -FK Transfer Device 1 Hand held assist -FK Transfer Level of Assistance 1 Minimum Assist -FK Trials/Comments 1 For safety, balance, force production, and controlled descent -FK Transfer From 2 Sit;Chair with arms -FK Transfer Type 2 To and from -FK Transfer to 2 Stand -FK Technique 2 Sit to stand;Stand to sit -FK Transfer Device 2 Hand held assist -FK Transfer Level of Assistance 2 Minimum Assist -FK Trials/Comments 2 For safety, balance, force production, and controlled descent -FK RUE Assessment WFL -FK LUE Assessment WFL -FK Comments Pt did not ambulate within room 2/2 fatigue. Pt reports wearing oxygen in the home. -FK Putting on and taking off regular lower body clothing 2 -FK Bathing 2 -FK Toileting 2 -FK Putting on and taking off upper body clothing 3 -FK Personal Grooming 2 -FK Eating Meals 4 -FK Total Score (range 6-24) 15 -FK Score Interpretation 34.69 -FK Problem List Decreased endurance;Decreased balance;Decreased functional mobility;Decreased ADL independence;Decreased IADL independence;Decreased trunk control for functional activities -FK Barriers to Discharge Current Mobility Status;Decreased caregiver support - Barrier Comments Fall risk - Plan Plan of care initiated;If this is the last note, consider this the discharge summary -FK OT Recommendation Inpatient Rehab Facility - OT Recommendation/Plan Comments Pt would beenfit from continued skilled OT services to improve balance, endurance, functional mobility, ADL and IADL independence - OT Frequency 5-7x/wk - Treatment/Interventions ADL/IADL retraining;Balance Training;Compensatory technique education;Endurance training;Functional activity;Functional mobility training;Functional transfer training;Positioning;Strengthening;Therapeutic activity;Therapeutic exercise;Transfer training - OT Equipment Recommended Reverberatory Furnace Operator;Sock aid;Toilet aid;Grab bars - OT - Next Appointment 09/25/21 - OT Evaluation Complete Yes - User Giron (r) = Recorded By, (t) = Taken By, (c) = Cosigned By Initials Name Effective Dates FK MarlenAbena 08/09/21 - OT Treatment No documentation. OT Notes Notes from 09/23/21 through 09/25/21 No notes of this type exist for this encounter. , PT Eval and Treat Last 72 Hours PT Evaluation Row Name 09/25/21 0819 Chart Reviewed Yes - Session Type Evaluation - (r) CHACE (t) Safe Environment Arm Band Checked;Call Light within Reach;Notified RN;Session Completed Bedside - Subjective Agreeable to Therapy - Family/Caregiver Present No - Physical Therapy-Patient Goal return to prior level of function - (r) CHACE (t) PT Functional Mobility intial evaluation w/ mobility training and skilled monitoring of vitals throughout - (r) CHACE (t) Precautions Fall risk;Spinal/Back - Precaution Handout Issued Yes - Precaution Comments verbally reviewed lubar spine precautions with pt. pt able to demonstrate understanding of log rolling maneuver during bed mobility. 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 4 days/week, 3 hours/day - Driving No - Mode of Transportation Family - Vocational/Occupation Retired - Fall within the last 6 months Yes - Fall within the last 6 months comment pt has history of multiple falls (3+) in the home in last 6 months - Prior Function Comments supplemental o2 3L NC - Endurance Tolerates less than 10 min activity no significant change in vital signs - Activity Tolerance Comments Nancy: moderate - Pain Assessment No/denies pain - Arousal/Alertness Alert;Appropriate responses to stimuli - Orientation Oriented X4 (person, place, time, situation) - Following Commands Follows all commands and directions without difficulty - Compliance/Behavior Easy to engage - Light Touch WFL 7/7 - Deep Pressure WFL - Numbness/Tingling No - Sensation Comments pt reports no change in sensation during current admission. no pitting edema noted - Balance Yes - Static Sitting-Balance Support No upper extremity supported;Feet supported - Static Sitting-Sitting Surface Bed - Static Sitting-Level of Assistance Distant supervision - Static Sitting-Comment/# of Minutes ~2 minutes. pt demonstrated no increase in lateral trunk sway during unsupported sitting. supervision 2/2 fall risk precautions - Static Standing-Balance Support No upper extremity supported - Static Standing-Standing Surface Floor - Static Standing-Level of Assistance Close supervision - Static Standing-Comment/# of Minutes ~2 minutes. pt demonstrated no increase in lateral trunk sway during unsupported standing. supervision 2/2 fall risk precautions - Dynamic Standing-Comments pt performed 5xSTS as objective measure of balance. pt scored 48sec for completion indicating elevated risk of fall. pt understood verbal explanation of score. - Bed Mobility Yes - Bed Mobility From 1 Supine - Bed Mobility Type 1 To - Bed Mobility to 1 Edge of bed - Level of Assistance 1 Standby Assist - Bed Mobility Comments 1 pt demonstrated understanding of lumbar spine precautions during bed mobility. - Transfer Yes - Transfer From 1 Bed - Transfer Type 1 To and from - Transfer to 1 Commode-standard - Technique 1 Stand pivot - Transfer Device 1 No device - Transfer Level of Assistance 1 Standby Assist - Trials/Comments 1 SBA 2/2 impaired balance and fall risk precautions. - Transfer From 2 Sit -BH Transfer Type 2 To and from -BH Transfer to 2 Stand - Technique 2 Sit to stand;Stand to sit - Transfer Device 2 No device - Transfer Level of Assistance 2 Standby Assist - Trials/Comments 2 SBA 2/2 impaired balance and fall risk precautions - Ambulation Yes - Distance (ft) 1 15ft - Surface 1 Level tile - Device 1 No device - Assistance 1 Contact Guard Assist - Gait: Requires assist with 1 Maintaining balance - Gait: Requires verbal cues to 1 Increase base of support;Pace activity - Quality of Gait 1 pt able to demonstrate recipricating step through gait pattern w/o AD. step length and chvaa both symmetric and low. pt demonstrated mild lateral gait deviations. - Ambulation Comments 1 pt indicated onset of pain at 15ft ambulation. pt did not require a rest break. CGA 2/2 impaired balance, fall risk precautions, and line management - Distance (ft) 2 150ft - Surface 2 Level tile - Device 2 Wheeled walker - Assistance 2 Contact Guard Assist - Gait: Requires verbal cues to 2 Use assistive device safely;Improve upright posture;Increase step length;Increase base of support - Quality of Gait 2 pt able to demonstrate recipricating step through gait pattern with step length and chava both symmetric and low. pt lateral gait deviations decreased with use of AD. pt upright posture improved with use of WW. - Ambulation Comments 2 lumbar pain managed during ambulation 2/2 use of WW and improvement of upright posture. CGA 2/2 impaired balance, fall risk precautions, and line management. 5xsts: 47sec - (r) CHACE (t) Stairs -- -CHACE Stair Comments pt did not require assist with force production or sequencing during ascending of steps. pt required assist with force production during descent of steps for eccentric control - Number of Stairs 1 5 - Rails 1 Bilateral - Device 1 No device - Assistance 1 Minimum Assist - Stairs: Requires assist with 1 Balance;Force production - RLE Assessment X AROM WFL for ambulation - R Hip Flexion 3+/5 -BH R Knee Flexion 4/5 -BH R Knee Extension 3+/5 -BH R Ankle Dorsiflexion 4/5 -BH R Ankle Plantar Flexion 4/5 - LLE Assessment X AROM WFL for ambulation - L Hip Flexion 0/5 not graded 2/2 pain - L Knee Flexion 4/5 -BH L Knee Extension 3+/5 -BH L Ankle Dorsiflexion 4/5 - L Ankle Plantar Flexion 4/5 - Equipment Use Comments gait belt used - Other PT Comments pt required verbal cueing to don her lumbar brace - How much difficulty does the patient have: Turning over in bed 3 - How much difficulty does the patient currently have: Sitting down and standing up from a chair witharms? 3 - How much difficulty does the patient have: Moving from lying on back to sitting on the side of the bed? 3 - How much difficulty does the patient have: Moving to and from a bed to a chair including wheelchair? 3 - How much help does the patient currently need: Walk in hospital room? 3 - How much help from another person does the patient currently need: Climbing 3-5 steps with a railing? 3 - Total 6 Click Score (range 6-24) 18 - Score Interpretation 41.05 - Prognosis Good - Problem List Gait deviations;Decreased strength;Decreased endurance;Impaired balance;Decreased mobility;Impaired judgement;Decreased safety awareness;Pain - Problem List Comments PT diagnosis: pt s/p L2 burst fx 2/2 [facility] bedside in her home experiencing above listed impairments limiting full participation in the home and community at [facility]. pt will benefit from skilled physical therapy focusing on balance training, gait training, and LE strength/endurance training to prevent deconditioning. - Barriers to Discharge Current Mobility Status;Decreased caregiver support;Decreased safety awareness - Plan Plan of care initiated;If this is the last note, consider this the discharge summary - PT Recommendation/Plan Care Home Facility - PT Recommendation/Plan Comments pt recieved verbal explanation of PT recommendation - PT Frequency 5-7x/wk - Treatment/Interventions Balance Training;Endurance training;Functional transfer training;Gait training;Strengthening;Therapeutic activity - PT Equipment Recommended None - PT - OK to Discharge No - PT Evaluation Complete Yes - User Giron (r) = Recorded By, (t) = Taken By, (c) = Cosigned By Initials Name Effective Dates Pavan Mcrae 08/16/21 - Shar Collazo, MERRILL 11/09/20 - PT TREATMENT (last 168 hours) PT Treatment No documentation. PT Notes Notes from 09/23/21 through 09/25/21 No notes of this type exist for this encounter. , SHOP TAILOR Eval and Treat Last 72 Hours SHOP TAILOR Evaluation No documentation. SHOP TAILOR Treatment No documentation. Clinical Swallow Study No documentation. SHOP TAILOR Notes Notes from 09/23/21 through 09/25/21 No notes of this type exist for this encounter. L MARKETER * ECIN Note - Savanna Ellison MSW - 09/25/2021 3:33 PM CST Images from the original note were not included. Patient Information: Comprehensive Nursing Documentation Attending Provider: Bere Magana MD Allergies: Hydroxychloroquine, Quinapril, Duloxetine Isolation: None Infection: None Code Status: FULL Advance Care Planning Activity Ht: 162.6 cm (5' 4 ) Wt: 58 kg (127 lb 13.9 oz) Admission Cmt: None Principal Problem: Diagnosis unknown [R69] Elopement Risk Date/Time Elopement Risk User 09/23/21 2300 No risk TR Intake/Output 09/23/21 0700 - 09/24/21 0659 09/24/21 0700 - 09/25/21 0659 09/25/21 07 - 09/26/21 0659 Total 8967-6754 6017-8040 1103-6304 Total 4611-2528 9574-0981 4006-4461 Total Intake (ml) -- -- -- 350 350 -- -- -- -- Output (ml) 400 -- 311 320 3777 450 -- -- 450 Net (ml) -400 -- -300 -350 -650 -450 -- -- -450 Last Weight 58 kg (127 lb 13.9 oz) -- -- -- -- -- -- -- -- Patient Lines/Drains/Airways Status Active Airway / Central venous catheter / Drain / Epidural cathether / Intraosseous line / Peripherally inserted central catheter / Peripheral intravenous line / Arterial line Name Placement date Placement time Site Days Peripheral IV 09/23/21 20 G Right Forearm 09/23/21 1333 Forearm 2 Patient Lines/Drains/Airways Status Active Wound / Pressure ulcer / Matthews / Negative Pressure Wound Pressure Ulcer/Pressure Injury 09/23/21 Right Buttocks Date First Assessed 09/23/21 Site Buttocks Time First Assessed 2347 Days 1 Present on Hospital Admission: Yes 2 RN Skin Validation (comment name): JUAN Leonard Present on Transfer to Nursing Division: Yes Location Orientation: Right Assessments Row Name 09/24/21209909/24/21 0800 09/23/21 2335 Pressure Ulcer Status Evolving Unchanged Unchanged Description Non-intact, shallow ulcer (c/w Stage 2, open, no depth, no slough) Non-intact, shallow ulcer (c/w Stage 2, open, no depth, no slough) Non-intact, shallow ulcer (c/w Stage 2, open, no depth, no slough) Staging Stage 2 Stage 2 Stage 2 Melissa-wound Assessment Dry;Intact Dry;Intact Dry;Intact Dressing Status Clean/Dry/Intact Clean/Dry/Intact New;Clean/Dry/Intact Dressing/Intervention Foam lifted/reapplied -- -- Suarez Fall Risk Flowsheet Row Most Recent Value Auto Low/High - if selected proceed to interventions N/A-fall assessment required ............filedat 09/23/20212299 History of Falling 25 ............filed at 09/23/20212299 Secondary Diagnosis 15 ............filed at 09/23/20212299 Ambulatory Aids 0 ............filed at 09/23/20212299 Intravenous Therapy/Heparin/Saline Lock 20 ............filed at 09/23/20212299 Gait/Transferring 10 ............filed at 09/23/20212299 Mental Status 0 ............filed at 09/23/20212299 Suarez Fall Risk Score 70 ............filed at 09/23/2021 2300 Vital Signs Report 09/24 0700 09/25 0659 09/25 0700 09/25 1533 Most Recent Temp (??C) 36.2 - 37 36.9 (98.4) 09/25 0430 Pulse 74 - 92 83 - 89 89 09/25 1523 Resp 18 - 22 18 09/25 0430 SpO2 (%) 94 - 100 95 - 98 95 09/25 1523 BP 131/59 - 182/78 153/88 - 181/94 168/82 09/25 1523 MAP (mmHg) 78 - 113 87 - 106 97 09/25 1523 Default Flowsheet Data (most recent) Endurance Tests No documentation. Default Flowsheet Data (most recent) Balance Tests - 09/24/21 0800 Tinetti Sitting Balance 1 Arises 1 Attempts to Arise 2 Immediate Standing Balance (First 5 Seconds) 1 Standing Balance 1 Nudged 1 Eyes Closed 0 Turned 360 Degrees: Steadiness 0 Turned 360 Degrees: Continuity of Steps 0 Sitting Down 1 Balance Score 8 Nursing Nutrition None Nursing Mobility Activity 09/25 0900 Chair 09/24 08 Resting in bed Mechanical Compression Site 09/25 0800 Bilateral 09/24 1999 Bilateral Mechanical Compression Type 09/25 08 IPC/SCD 09/24 1999 IPC/SCD Mechanical Compression Status 09/25 0800 Off 09/24 1999 Other (Comment) , Meds and Admin Active Only All Meds/Most Recent Administrations All Meds/Most Recent Administrations morphine injection 4 mg [[id number]] Ordering Provider: Bere Souza MD Status: Completed (Past End Date/Time) Ordered On: 09/23/211441 Starts/Ends: 09/23/21 144 - 09/23/21 145 Dose (Remaining/Total): 4 mg (0/1) Route: intravenous Frequency: Once Rate/Duration: -- / 4 Minutes Line Med Link Info Comment Peripheral IV 09/23/21 20 G Right Forearm 09/23/21 1450 by Britany Cabral RN -- Timestamps Action Dose / Duration Route Other Information 09/23/211449 Given 4 mg 4 Minutes intravenous Performed by: Britany Cabral RN Comments: stop time 145 Scanned Package: 4212-7667-35, 2705-8034-88 ondansetron (ZOFRAN) injection 4 mg [[id number]] Ordering Provider: Bere Souza MD Status: Completed (Past End Date/Time) Ordered On: 09/23/211441 Starts/Ends: 09/23/211442 - 09/23/21 145 Dose (Remaining/Total): 4 mg (0/1) Route: intravenous Frequency: Once Rate/Duration: -- / 2 Minutes Line Med Link Info Comment Peripheral IV 09/23/21 20 G Right Forearm 09/23/211447 by Britany Cabral RN -- Timestamps Action Dose / Duration Route Other Information 09/23/211447 Given 4 mg 2 Minutes intravenous Performed by: Britany Cabral RN Comments: stop time 1449 Scanned Package: [address]-5 morphine injection 4 mg [[id number]] Ordering Provider: Bere Souza MD Status: Completed (Past End Date/Time) Ordered On: 09/23/211934 Starts/Ends: 09/23/211935 - 09/23/211940 Dose (Remaining/Total): 4 mg (0/1) Route: intravenous Frequency: Once Rate/Duration: -- / 4 Minutes Line Med Link Info Comment Peripheral IV 09/23/21 20 G Left Forearm 09/23/211936 by Mitali Parkinson RN -- Timestamps Action Dose / Duration Route Other Information 09/23/211936 Given 4 mg 4 Minutes intravenous Performed by: Mitali Parkinson RN Scanned Package: 0391-3128-61, 3679-2152-39 ondansetron (ZOFRAN) injection 4 mg [[id number]] Ordering Provider: Bere Souza MD Status: Completed (Past End Date/Time) Ordered On: 09/23/211934 Starts/Ends: 09/23/211935 - 09/23/211938 Dose (Remaining/Total): 4 mg (0/1) Route: intravenous Frequency: Once Rate/Duration: -- / 2 Minutes Line Med Link Info Comment Peripheral IV 09/23/21 20 G Left Forearm 09/23/211936 by Mitali Parkinson RN -- Timestamps Action Dose / Duration Route Other Information 09/23/211936 Given 4 mg 2 Minutes intravenous Performed by: Mitali Parkinson RN Scanned Package: [address]-2 metoprolol tartrate (LOPRESSOR) immediate release tablet 25 mg [[id number]] Ordering Provider: Malini Ralph MD Status: Dispensed Ordered On: 09/23/212306 Start: 09/23/212344 Dose (Remaining/Total): 25 mg (--/--) Route: oral Frequency: 2 times daily Rate/Duration: -- / -- Timestamps Action Dose Route Other Information 09/25/21936 Given 25 mg oral Performed by: Luam Aguillon RN Scanned Package: [address]183-253-08 sodium chloride 0.9% flush 0.5-20 mL [[id number]] Ordering Provider: Malini Ralph MD Status: Verified Ordered On: 09/23/212306 Start: 09/23/212344 Dose (Remaining/Total): 0.5-20 mL (--/--) Route: intra-catheter Frequency: Every 8 hours scheduled Rate/Duration: -- / -- Admin Instructions: Flush volume based on line type and size. Timestamps Action Dose Route Other Information 09/25/21 1358 Given 10 mL intra-catheter Performed by: Luma Aguillon RN Scanned Package: [id number] sodium chloride 0.9% flush 0.5-20 mL [[id number]] Ordering Provider: Malini Ralph MD Status: Verified Ordered On: 09/23/212306 Start: 09/23/212306 Dose (Remaining/Total): 0.5-20 mL (--/--) Route: intra-catheter Frequency: As needed Rate/Duration: -- / -- Admin Instructions: Flush volume based on line type and size. Flush before and after each use. (No admins scheduled or recorded for this medication) sodium chloride 0.9% flush 0.5-20 mL [[id number]] Ordering Provider: Malini Ralph MD Status: Verified Ordered On: 09/23/212306 Start: 09/23/212344 Dose (Remaining/Total): 0.5-20 mL (--/--) Route: intra-catheter Frequency: Every 8 hours scheduled Rate/Duration: -- / -- Admin Instructions: Flush volume based on line type and size. Timestamps Action Dose Route Other Information 09/25/211356 Given 10 mL intra-catheter Performed by: Luma Aguillon RN Scanned Package: [id number] sodium chloride 0.9% flush 0.5-20 mL [[id number]] Ordering Provider: Malini Ralph MD Status: Verified Ordered On: 09/23/212306 Start: 09/23/212306 Dose (Remaining/Total): 0.5-20 mL (--/--) Route: intra-catheter Frequency: As needed Rate/Duration: -- / -- Admin Instructions: Flush volume based on line type and size. Flush before and after each use. (No admins scheduled or recorded for this medication) acetaminophen (TYLENOL) tablet 1,000 mg [[id number]] Ordering Provider: Malini Ralph MD Status: Dispensed Ordered On: 09/23/212306 Start: 09/23/212344 Dose (Remaining/Total): 1,000 mg (--/--) Route: oral Frequency: Every 6 hours Rate/Duration: -- / -- Timestamps Action Dose Route Other Information 09/25/21 1037 Given 1,000 mg oral Performed by: Luma Aguillon RN Scanned Package: [address]-6, [address]-7 enoxaparin (LOVENOX) syringe 30 mg [[id number]] Ordering Provider: Malini Ralph MD Status: Dispensed Ordered On: 09/23/212306 Start: 09/23/212344 Dose (Remaining/Total): 30 mg (--/--) Route: subcutaneous Frequency: Every 12 hours scheduled Rate/Duration: -- / -- Timestamps Action Dose Route / Site Other Information 09/25/21 0938 Given 30 mg subcutaneous Left Lower Abdomen Performed by: Luma Aguillon RN Scanned Package: 01584-347-60 albuterol HFA (PROVENTIL HFA,VENTOLIN HFA,PROAIR HFA) 90 mcg/actuation inhaler 2 puff [[id number]] Ordering Provider: Malini Ralph MD Status: Verified Ordered On: 09/23/212314 Start: 09/23/212314 Dose (Remaining/Total): 2 puff (--/--) Route: inhalation Frequency: Every 4 hours PRN (incident response analyst) Rate/Duration: -- / -- (No admins scheduled or recorded for this medication) umeclidinium (INCRUSE ELLIPTA) 62.5 mcg/actuation inhaler 62.5 mcg [[id number]] Ordering Provider: Malini Ralph MD Status: Verified Ordered On: 09/24/21914 Start: 09/25/21 09 Dose (Remaining/Total): 1 puff (--/--) Route: inhalation Frequency: Daily Rate/Duration: -- / -- Note to pharmacy: RN to administer Timestamps Action Dose Route Other Information 09/25/21 1037 Given 62.5 mcg inhalation Performed by: Luma Aguillon RN Scanned Package: [id number] polyethylene glycol (MIRALAX) packet 17 g [[id number]] Ordering Provider: Yael Momin NP Status: Dispensed Ordered On: 09/24/21 0924 Start: 09/24/21 1000 Dose (Remaining/Total): 17 g (--/--) Route: oral Frequency: Daily Rate/Duration: -- / -- Timestamps Action Dose Route Other Information 09/25/21 1035 Given 17 g oral Performed by: Luma Aguillon RN Scanned Package: [id number] hydroCHLOROthiazide (HYDRODIURIL) tablet 12.5 mg [[id number]] Ordering Provider: Yael Momin NP Status: Dispensed Ordered On: 09/24/21 1352 Start: 09/24/21 1430 Dose (Remaining/Total): 12.5 mg (--/--) Route: oral Frequency: Daily Rate/Duration: -- / -- Timestamps Action Dose Route Other Information 09/24/212003 Given 12.5 mg oral Performed by: Luma Aguillon RN Scanned Package: [id number] senna-docusate (PERICOLACE) 8.6-50 mg per tablet 2 tablet [[id number]] Ordering Provider: Bettye Robertson NP Status: Dispensed Ordered On: 09/25/21920 Start: 09/25/21 1000 Dose (Remaining/Total): 2 tablet (--/--) Route: oral Frequency: 2 times daily Rate/Duration: -- / -- Timestamps Action Dose Route Other Information 09/25/21 09 Given 2 tablet oral Performed by: Luma Aguillon RN Scanned Package: [id number], 2529-9711-27 bisacodyL (DULCOLAX) suppository 10 mg [[id number]] Ordering Provider: Bettye Robertson NP Status: Verified Ordered On: 09/25/21920 Start: 09/25/21920 Dose (Remaining/Total): 10 mg (--/--) Route: rectal Frequency: Daily PRN Rate/Duration: -- / -- (No admins scheduled or recorded for this medication) clindamycin (CLEOCIN) capsule 300 mg [[id number]] Ordering Provider: Bettye Robertson NP Status: Dispensed Ordered On: 09/25/21 1024 Start: 09/25/21 1200 Dose (Remaining/Total): 300 mg (--/--) Route: oral Frequency: 4 times daily Rate/Duration: -- / -- Timestamps Action Dose Route Other Information 09/25/21 1215 Given 300 mg oral Performed by: Luma Aguillon RN Scanned Package: [id number], [address]-7 cyclobenzaprine (FLEXERIL) tablet 5 mg [[id number]] Ordering Provider: Bettye Robertson NP Status: Verified Ordered On: 09/25/21 1326 Start: 09/25/21 1600 Dose (Remaining/Total): 5 mg (--/--) Route: oral Frequency: 3 times daily Rate/Duration: -- / -- (No admins scheduled or recorded for this medication) lidocaine (LIDODERM) 5 % patch 2 patch [[id number]] Ordering Provider: Bettye Robertson NP Status: Dispensed Ordered On: 09/25/211325 Start: 09/25/21 1400 Dose (Remaining/Total): 2 patch (--/--) Route: transdermal Frequency: Daily Rate/Duration: -- / 12 Hours Admin Instructions: Do not cover the holes on the top side of the patch. Question Answer Comment Apply to affected area:: back -- Timestamps Action Dose / Duration Route / Site Other Information 09/25/21 1358 Medication Applied 2 patch 12 Hours transdermal Back Performed by: Luma Aguillon RN Scanned Package: [id number], [id number] gabapentin (NEURONTIN) capsule 300 mg [[id number]] Ordering Provider: Bettye Robertson NP Status: Verified Ordered On: 09/25/211325 Start: 09/25/21 2100 Dose (Remaining/Total): 300 mg (--/--) Route: oral Frequency: Nightly Rate/Duration: -- / -- Admin Instructions: Do not crush, break, or open. (No admins scheduled or recorded for this medication) oxyCODONE (ROXICODONE) tablet 5 mg [[id number]] Ordering Provider: Bettye Robertson NP Status: Verified Ordered On: 09/25/211325 Start: 09/25/21 1330 Dose (Remaining/Total): 5 mg (--/--) Route: oral Frequency: Every 4 hours PRN Rate/Duration: -- / -- (No admins scheduled or recorded for this medication) L MARKETER * Provider Query - Amparo Hassan - 09/25/2021 11:31 AM CST Specify a diagnosis that reflects the patient???s need for continuous home oxygen, and document in the medical record and on the form below. ___ Chronic Hypoxic Respiratory Failure ___ Chronic Hypercapnic Respiratory Failure ___ Chronic Respiratory Failure, unspecified __X_ Chronic Lung Disease WITHOUT chronic respiratory failure (specify disease) ___ Other, specify below ___ Clinically unable to determine Additional Provider Response: COPD Clinical Indicators/Treatments: Pt w/hx of COPD on home O2 @ 3-4L Treatment/,monitoring: O2 per orders, pulse oximetry, home Albuterol inhaler and Atrovent PRN, Spiriva and Breo daily Respiratory Failure Screening Criteria Chronic Respiratory Failure Dependence on continuous (24 hours a day) home O2 or non-invasive mechanical ventilation (BiPAP, AVAPS, etc.) If provider believes patient has respiratory failure in the absence of above clinical indicators, please document rationale and clinical impression in detail Respiratory Failure References [employer] Hospitalist Jun 2013 Coding Clinics: 3rd Q 1987, p 7 and 2nd Q 1989, p.20 https://www.[facility].gov/fvotuweu-wrj-mhzwwtcll/medicare-learning-network-mln/mlnprod ucts/downloads/tfev-ipehpl-zprtkqt-text-only.pdf Use of terms such as likely, suspected, possible, or probable (associated with a specific diagnosisthat is being evaluated, monitored, or treated as if it exists) are acceptable and can be coded in the inpatient setting when documented at the time of discharge. This documentation will become part of the patient???s medical record. Thank you, Amparo Hassan RN, MSN, CCDS [phone] [email or web address] L MARKETER * Provider Query - Amparo Hassan - 09/25/2021 11:30 AM CST Please specify the TYPE and ACUITY of Heart Failure, and document in the medical record and on the form below. Type ___ Systolic [Reduced or mid-range ejection fraction (EF)] - (Evidence of clinical heart failure with a reduced EF of less than 40-45%) __X_ Diastolic [Preserved or recovered ejection fraction (EF)] - (Evidence of heart failure with a normal EF of greater than 50%. Evidence of heart failure on Echo; Impaired relaxation and elevated A/E ratio in a patient with clinical heart failure) ___ Combined Systolic and Diastolic (Evidence of clinical heart failure with an EF of greater than 40% and less than 50%) ___ Other, specify below ___ Clinically unable to determine Acuity ___ Chronic (Compensated) ___ Clinically unable to determine Additional Provider Response: Clinical Indicators/Treatments: Per GTS PNs: CHF - Echo 08/25 EF 65% No AR seen, Mild MR, no , no MS, mild TV regurgitation, normal PV. Treatment/monitoring: HCTZ 12.5mg daily, metoprolol 25mg bid, I&O per orders Use of terms such as likely, suspected, possible, or probable (associated with a specific diagnosisthat is being evaluated, monitored, or treated as if it exists) are acceptable and can be coded in the inpatient setting when documented at the time of discharge. This documentation will become part of the patient???s medical record. Thank you, Amparo Hassan RN, MSN, CCDS [phone] [email or web address] L MARKETER * Provider Query - Amparo Hassan - 09/25/2021 11:25 AM CST Specify the etiology of the fracture and document in the medical record and on the form below. ____Traumatic, Closed ____Pathologic due to possible osteoporosis __x__Due to a combination of trauma and pathological process when trauma alone would not likely be sufficient to cause the fracture ____Other, specify below ____Clinically unable to determine Additional Provider Response: Clinical Indicators/Treatments: 80 y/o F admitted 09/23 after [facility]--pt reported she fell after tripping on oxygen tubing landing on L side Dx: L2 burst fx w/ 20% posterior loss and 3mm retropulsion 09/23: Neuro CT MR Outside Consult: ???The bones are osteopenic???.. 09/23 XR Chest 1 Vw Portable: ???Diffuse osteopenia??? Treatment/monitoring: Ortho spine c/s, PT/OT, L spine precautions Use of terms such as likely, suspected, possible, or probable (associated with a specific diagnosisthat is being evaluated, monitored, or treated as if it exists) are acceptable and can be coded in the inpatient setting when documented at the time of discharge. This documentation will become part of the patient???s medical record. Thank you, Amparo Hassan RN, MSN, CCDS [phone] [email or web address] L MARKETER * Plan of Care - Savanna Ellison MSW - 09/25/2021 11:20 AM CST Per DCA rounds with Promotional Model, Yardage Control Operator Forming, Charge Nurse, and MD, the patient is not medically stable for discharge at this time. Problem: Ensure acute medical needs are met and that patient has a safe discharge plan. Goal: Secure a placement that patient/family are agreeable with and ensure patient has continuum ofcare. Discharge plan: Patient has PT recs for SNF and OT recs for IPR. SW met with patient at bedside to discuss discharge planning. SW explained patient's therapy recommendations for placement after hospital discharge. Patient is agreeable to SNF placement. SW provided patient a SNF list to review for referrals. Patient reports that her daughter is coming to visit today, and she will review list with her later today. SW will follow back up for referrals. Update: SW met with patient and daughter at bedside to follow up on referrals. Patient requested referral to [facility] as first preference, and is agreeable to SW sending SNF referrals near [place]. Insurance: [facility] ADD: 09/26 SW to follow. ADRIANNA Castillo L MARKETER L MARKETER * Plan of Care - Abena Gee - 09/24/2021 3:00 PM CST Problem: Dressings Lower Extremities Goal: STG - Patient to complete lower body dressing Description: With Min A and use of AE Outcome: Progressing Problem: Grooming Goal: STG - Patient will complete grooming Description: With Min A Outcome: Progressing Problem: Toileting Goal: STG - Patient will complete toileting tasks with Description: With min A and use of AE Outcome: Progressing Cosigned by Hailee Titus OT at 09/24/2021 3:05 PM EMAIL MARKETER L MARKETER L MARKETER * ED Re-evaluation Note - Linda Alfaro MD - 09/23/2021 8:11 PM EMAIL MARKETER ED Re-evaluation TRANSITION OF CARE I, Linda Alfaro MD, am taking signout and assuming care of this patient from the outgoing resident under the supervision my attending. I have reviewed all pertinent vital signs, allergies, and history available in the chart. Summary: 80 y.o. female history of COPD, on 3 L of oxygen here with L2 compression fracture. Neurosurgery has evaluated the patient term that she is non op. Admit to geriatric trauma service with back brace for comfort. Pending: Nothing to do Dispo: Admit to GTS ED Course as of 09/23/212012 Time: 09/23 6745 Comment: Ortho spine to see. By: Bere Souza MD Time: 09/23 2543 Comment: Per ortho spine, plan nonop. Requesting GTS consult and admit. By: Bere Souza MD Time: 09/23 1317 Comment: GTS to see. By: Bere Souza MD Final diagnoses: Closed wedge compression fracture of L2 vertebra, initial encounter (HCC) Frail elderly Fall, initial encounter Anemia, unspecified type Elevated alkaline phosphatase level Linda Alfaro MD Resident 09/24/21 0449 L MARKETER * ED Procedure Note - Breanna Sutton MD - 09/23/2021 1:19 PM EMAIL MARKETER Associated Order(s): ECG 12 lead Procedure ECG 12 lead Date/Time: 09/23/2021 1:19 PM Performed by: Breanna Sutton MD Authorized by: Bere Souza MD Rate: ECG rate: 77 ECG rate assessment: normal Rhythm: Rhythm: sinus rhythm Ectopy: Ectopy: none QRS: QRS axis: Normal QRS intervals: Normal Conduction: Conduction: normal ST segments: ST segments: Normal T waves: T waves: normal Previous ECG: Previous ECG: Unavailable Interpretation: Interpretation: normal Recommended Follow-up: Recommended follow up: further workup in the ED Breanna Sutton MD 09/23/21 1319 L MARKETER * ED Pre-Arrival Note - Julia Haley RN - 09/23/2021 9:47 AM EMAIL MARKETER Pre-Arrival Note Transfer from [facility]. Had fall 3 days ago from standing after tripping over O2 tubing, found to have L2 burst fx with retropulsion. Left AMA then, had another fall today, now has increasedpain and inability to care for self at home. Neuro intact. CT head negative. Accepted by Kumar as level 3. Julia Haley RN L MARKETER documented in this encounter Plan of Treatment Not on file documented as of this encounter Procedures Procedure Name Priority Date/Time Associated Diagnosis Comments INFLUENZA A/B, RSV, AND COVID-19 PCR Routine 09/26/2021 9:06 PM EMAIL MARKETER EGFR Routine 09/24/2021 11:20 PM EMAIL MARKETER CBC WITHOUT DIFFERENTIAL Routine 09/24/2021 11:20 PM EMAIL MARKETER PHOSPHORUS Routine 09/24/2021 11:20 PM EMAIL MARKETER MAGNESIUM Routine 09/24/2021 11:20 PM EMAIL MARKETER BASIC METABOLIC PANEL Routine 09/24/2021 11:20 PM EMAIL MARKETER XR SPINE LUMBAR 2 OR 3 VIEWS ED 09/23/2021 7:22 PM EMAIL MARKETER INFLUENZA A/B, RSV, AND COVID-19 PCR Routine 09/23/2021 1:41 PM EMAIL MARKETER TROPONIN I HIGH-SENSITIVITY SERIES (BASELINE, 2HR, 4HR, 6HR) STAT 09/23/2021 1:41 PM EMAIL MARKETER EGFR STAT 09/23/2021 1:41 PM EMAIL MARKETER DIFFERENTIAL AUTO STAT 09/23/2021 1:4 1 PM EMAIL MARKETER URINALYSIS AND REFLEX TO MICROSCOPIC AND CULTURE STAT 09/23/2021 1:41 PM EMAIL MARKETER CBC WITH AUTO DIFFERENTIAL STAT 09/23/2021 1:41 PM EMAIL MARKETER APTT STAT 09/23/2021 1:41 PM EMAIL MARKETER PROTIME-INR STAT 09/23/2021 1:41 PM EMAIL MARKETER TYPE AND SCREEN STAT 09/23/2021 1:41 PM EMAIL MARKETER LIPID PANEL STAT 09/23/2021 1:41 PM EMAIL MARKETER COMPREHENSIVE METABOLIC PANEL STAT 09/23/2021 1:41 PM EMAIL MARKETER NEURO CT MR OUTSIDE CONSULT Routine 09/23/2021 1:34 PM EMAIL MARKETER Diagnosis unknown XR CHEST 1 VIEW ED 09/23/2021 1:34 PM EMAIL MARKETER NEURO CT MR OUTSIDE CONSULT Routine 09/23/2021 1:30 PM EMAIL MARKETER Diagnosis unknown NEURO CT MR OUTSIDE CONSULT Routine 09/23/2021 1:27 PM EMAIL MARKETER Diagnosis unknown XR TRANSFER OF OUTSIDE FILMS Routine 09/23/2021 1:25 PM EMAIL MARKETER Diagnosis unknown ECG 12-LEAD STAT 09/23/2021 1:19 PM EMAIL MARKETER documented in this encounter Results * Influenza A/B, RSV, and COVID-19 PCR Nasopharyngeal (09/26/2021 9:06 PM EMAIL MARKETER) COVID-19 RNA Negative Negative [facility] Influenza A RNA Negative Negative [facility] Influenza B RNA Negative Negative [facility] RSV RNA Negative Negative [facility] Comment: Interpretive data: Testing performed by [facility] ([phone]). This test is performed using the Videdressing Xpert Xpress CoV-2/Flu/RSV plus assay. This is a multiplex, real-time reverse transcriptase PCR assay intended for the qualitative detection of nucleic acid from SARS-CoV-2, influenza A, influenza B, and respiratory syncytial virus. This assay has been reviewed by the FDA for Emergency Use Authorization (EUA). The performance characteristics have been verified by the [facility]. Results must be considered in the clinical context, and a negative result does not rule out infection. Interpretive Data last revised 2021. First COVID-19 test? No [facility] Employeed in healthcare? No [facility] status? No [facility] Group care resident? No [facility] Hospitalized? Yes [facility] Is patient in ICU? No [facility] Symptomatic as defined by CDC? No [facility] Nasopharyngeal 09/26/2021 9: 06 PM EMAIL MARKETER 09/26/2021 11:36 PM EMAIL MARKETER Narrative [facility] - 2021 12:27 AM EMAIL MARKETER Reason for testing?->Placement in post-acute care setting Known exposure to confirmed or suspected COVID-19 case?->No Yael Momin [employer] SUPERVISOR LAB MICROBIOLOGY - GENERAL ORD ERABLES Final Result [facility] Department [place] [address] * eGFR (09/24/2021 11:20 PM EMAIL MARKETER) eGFR 90 90 - 130 mL/min/1. 73 m2 [facility] Comment: Interpretive Data Reference Interval Normal ?>/= 90 mL/min/1.73m2 Mildly decreased* ? 60 - 89 mL/min/1.73m2 Mildly to moderately decreased ?45 - 59 mL/min/1.73m2 Moderately to severely decreased ??30 - 44 mL/min/1.73m2 Severely decreased ?15 - 29 mL/min/1.73m2 Kidney Failure ?< 15 ??mL/min/1.73m2 *Relative to young adult level Estimated glomerular filtration rate is determined by the 2020 CKD-EPI equation recommended by the National Kidney Foundation (A Unifying Approach to GFR Estimation: Recommendations of the NKF-ASK Task Force on Reassessing the Inclusion of Race in Diagnosing Kidney Disease, JASN 2020). The CKD-EPI equation should not be used for patients with unstable renal function and has not been validated in children and those over 70. Current interpretive data was last reviewed 2021. Blood 09/24/2021 11:2 0 PM EMAIL MARKETER 09/25/2021 12:28 AM EMAIL MARKETER Bere Magana MD LAB BLOOD ORDERABLES Sandra l Result Performing Organization Address City/[facility]/ZIP Co de Phone Number [facility] [place] [address] * Phosphorus (09/24/2021 11:20 PM EMAIL MARKETER) Pathologist [facility] Phosphorus, pl 4.3 2.3 - 4.5 mg/dL [facility] Blood 09/24/2021 11:2 0 PM EMAIL MARKETER 09/25/2021 12:28 AM EMAIL MARKETER Bere Magana MD LAB BLOOD ORDERABLES Sandra l Result Performing Organization Address [facility] Co de Phone Number [facility] [place] [address] * Magnesium (09/24/2021 11:20 PM EMAIL MARKETER) [facility] Magnesium 2.2 1.4 - 2.5 mg/dL [facility] Blood 09/24/2021 11:2 0 PM EMAIL MARKETER 09/25/2021 12:28 AM EMAIL MARKETER Bere Magana MD LAB BLOOD ORDERABLES Sandra l Result Performing Organization Address [facility] Co de Phone Number [facility] [place] [address] * (ABNORMAL) Basic metabolic panel (09/24/2021 11:20 PM EMAIL MARKETER) [facility] Sodium 140 135 - 145 mmol/L [facility] Potassium, pl 4.5 3.3 - 4.9 mmol/L [facility] Chloride 97 97 - 110 mmol/L [facility] CO2 35(H) 22 - 32 mmol/L [facility] Anion gap 8 2 - 15 mmol/L [facility] BUN 19 8 - 25 mg/dL [facility] Creatinine 0.65 0.60 - 1.10 mg/dL [facility] Glucose 105 70 - 199 mg/dL [facility] Comment: Interpretive Data Fasting glucose >/= [...] Current interpretive data was last revised 2017. Calcium 9.5 8.5 - 10.3 mg/dL [facility] Blood 09/24/2021 11:2 0 PM EMAIL MARKETER 09/25/2021 12:28 AM EMAIL MARKETER us Bere Magana MD LAB BLOOD ORDERABLES Sandra gu Result [facility] Department [place] [address] * (ABNORMAL) CBC without differential (09/24/2021 11:20 PM EMAIL MARKETER) Pathologist [facility] WBC 7.0 3.8 - 9.9 K/cumm [facility] Hgb 11.7(L) 11.9 - 15.5 g/dL [facility] Hct 35.9 35.6 - 45.5 % [facility] Plt 294 150 - 400 K/cumm [facility] MPV 9.8 9.1 - 12.3 fL [facility] RBC 3.81(L) 3.90 - 5.20 M/cumm [facility] MCV 94.2 81.3 - 96.4 fL [facility] MCH 30.7 27.1 - 33.3 pg [facility] MCHC 32.6 32.3 - 35.7 g/dL [facility] RDW CV 11.6 11.1 - 14.9 % [facility] RDW SD 39.4 35.7 - 48.1 fL [facility] NRBC abs 0.00 0.00 - 0.01 K/cumm [facility] Blood 09/24/2021 11:2 0 PM EMAIL MARKETER 09/25/2021 12:28 AM EMAIL MARKETER us Bere Magana MD LAB BLOOD ORDERABLES Sandra gu Result [facility] [place] [address] * XR Spine Lumbar 2 or 3 Views (09/23/2021 7:22 PM EMAIL MARKETER) Anatomical Region Laterality Modality Spine N/A Computed Radiogr aphy 09/23/2021 7:40 PM EMAIL MARKETER Impressions 09/23/2021 7:40 PM EMAIL MARKETER 1. ??L2 compression fracture, better evaluated on same-day CT. 2. ??Severe chronic compression deformities of T11 and T12 with focal kyphosis. Dictated by: Jono Garnett M.D. The radiology attending physician has personally reviewed this study, and had reviewed and/or edited this written report and agrees with it. Electronically signed by: Kyle Monet MD Narrative 09/23/2021 7:40 PM EMAIL MARKETER EXAMINATION: XR SPINE LUMBAR 2 OR 3 VIEWS HISTORY: L2 compression fracture COMPARISON: CT 09/23/2021 FINDINGS: 3 radiographs lumbar spine are significant for interpretation. There is exaggerated thoracic kyphosis with focal kyphosis at T11-T12. ??There is levocurvature of the lumbar spine. Again seen is a compression fracture of the L2 vertebral body with approximately 25-50% height loss and retropulsion better evaluated on the same day CT. Compression fractures of T11 and T12 appear grossly unchanged from 09/10/2020. Multilevel degenerative disc disease and facet arthropathy. Atherosclerotic vascular calcifications. Procedure Note Kyle Monet MD - 09/23/2021 EXAMINATION: XR SPINE LUMBAR 2 OR 3 VIEWS HISTORY: L2 compression fracture COMPARISON: CT 09/23/2021 FINDINGS: 3 radiographs lumbar spine are significant for interpretation. There is exaggerated thoracic kyphosis with focal kyphosis at T11-T12. There is levocurvature of the lumbar spine. Again seen is a compression fracture of the L2 vertebral body with approximately 25-50% height loss and retropulsion better evaluated on the same day CT. Compression fractures of T11 and T12 appear grossly unchanged from 09/10/2020. Multilevel degenerative disc disease and facet arthropathy. Atherosclerotic vascular calcifications. IMPRESSION: 1. L2 compression fracture, better evaluated on same-day CT. 2. Severe chronic compression deformities of T11 and T12 with focal kyphosis. Dictated by: Jono Garnett M.D. The radiology attending physician has personally reviewed this study, and had reviewed and/or edited this written report and agrees with it. Electronically signed by: Kyle Monet MD us Breanna Sutton MD IMG XR PROCEDURES Final Result * Lipid panel (09/23/2021 1:41 PM EMAIL MARKETER) Cholesterol 178 30 - 199 mg/dL [facility] Comment: Interpretive Data Ages < or = 19 years ??Acceptable: ? <170 mg/dL ??Borderline high: ??170-199 mg/dL ??High: ? >or= 200 mg/dL Ages > or = 20 years ??Desirable: ?<200 mg/dL ??Borderline high: ??200-239 mg/dL ??High: ? >or= 240 mg/dL Literature References: 1. Expert Panel on Integrated Guidelines for Cardiovascular Health and Risk Reduction in Children and Adolescents. Pediatrics 2011;128:S213 2. NCEP Expert Panel. Circulation 2004;110:227 Current Interpretive Data was last revised on 2018. Triglycerides 98 <=149 mg/dL [facility] Comment: Interpretive Data Ages < or = 9 years ??Acceptable: ? <75 mg/dL ??Borderline high: ??75-99 mg/dL ??High: ? >or= 100 mg/dL Ages 10 to 20 years ??Acceptable: ? <90 mg/dL ??Borderline high: ??90-129 mg/dL ??High: ? >or= 130 mg/dL Ages > or = 20 years ??Desirable: ?<150 mg/dL ??Borderline high: ??150-199 mg/dL ??High: ? 200-499 mg/dL ?Very high: ?? >or= 499 mg/dL Literature References: 1. Expert Panel on Integrated Guidelines for Cardiovascular Health and Risk Reduction in Children and Adolescents. Pediatrics 2011;128:S213 2. NCEP Expert Panel. Circulation 2004;110:227 Current Interpretive Data was last revised on 2018. HDL 50 >=40 mg/dL [facility] Comment: Interpretive Data Ages < or = 19 years ??Acceptable: ? >45 mg/dL ??Borderline low: ?? 40-45 mg/dL ??Low: ? <40 mg/dL Ages > or = 20 years ??Desirable: ?>or= 60 mg/dL ??Low: ? <40 mg/dL Literature References: 1. Expert Panel on Integrated Guidelines for Cardiovascular Health and Risk Reduction in Children and Adolescents. Pediatrics 2011;128:S213 2. NCEP Expert Panel. Circulation 2004;110:227 Current Interpretive Data was last revised on 2018. LDL, calculated 108 <=129 mg/dL [facility] Comment: Interpretive Data Ages < or = 19 years ??Acceptable: ? <110 mg/dL ??Borderline high: ??110-129 mg/dL ??High: ?>or= 130 mg/dL Ages > or = 20 years ??Optimal: ? <100 mg/dL ??Near optimal: ?100-129 mg/dL ??Borderline high: ?? 130-159 mg/dL ??High: ?>160 mg/dL Literature References: 1. Expert Panel on Integrated Guidelines for Cardiovascular Health and Risk Reduction in Children and Adolescents. Pediatrics 2011;128:S213 2. NCEP Expert Panel. Circulation 2004;110:227 Current Interpretive Data was last revised on 2018. Non-HDL Cholesterol 128 mg/dL [facility] Comment: Interpretive Data Ages < or = 19 years ??Acceptable: ?<120 mg/dL ??Borderline high: ??120-144 mg/dL ??High: ?>145 mg/dL Ages > or = 20 years ??When triglycerides are >200 mg/dL, Non-HDL cholesterol is a secondary target of ? therapy with treatment goals that are 30 mg/dL greater than the LDL cholesterol target. ? Literature References: 1. Expert Panel on Integrated Guidelines for Cardiovascular Health and Risk Reduction in Children and Adolescents. Pediatrics 2011;128:S213 2. NCEP Expert Panel. Circulation 2004;110:227 Current Interpretive Data was last revised on 2018. Chol/HDL ratio 4 [facility] Blood 09/23/2021 1:41 PM EMAIL MARKETER 09/23/2021 2:01 PM EMAIL MARKETER Narrative [facility] - 09/24/2021 8:21 AM EMAIL MARKETER reflex us Breanna Sutton MD LAB BLOOD ORDERABLES Fi nal Result [facility] Department [place] [address] * eGFR (09/23/2021 1:41 PM EMAIL MARKETER) eGFR >90 90 - 130 mL/min/1. 73 m2 [facility] Comment: Interpretive Data Reference Interval Normal ?>/= 90 mL/min/1.73m2 Mildly decreased* ? 60 - 89 mL/min/1.73m2 Mildly to moderately decreased ?45 - 59 mL/min/1.73m2 Moderately to severely decreased ??30 - 44 mL/min/1.73m2 Severely decreased ?15 - 29 mL/min/1.73m2 Kidney Failure ?< 15 ??mL/min/1.73m2 *Relative to young adult level Estimated glomerular filtration rate is determined by the 2020 CKD-EPI equation recommended by the National Kidney Foundation (A Unifying Approach to GFR Estimation: Recommendations of the NKF-ASK Task Force on Reassessing the Inclusion of Race in Diagnosing Kidney Disease, JASN 2020). The CKD-EPI equation should not be used for patients with unstable renal function and has not been validated in children and those over 70. Current interpretive data was last reviewed 2021. Blood 09/23/2021 1:41 PM EMAIL MARKETER 09/23/2021 2:01 PM EMAIL MARKETER us Bere Souza MD LAB BLOOD ORDERABLES F inal Result [facility] [place] [address] * Differential, auto (09/23/2021 1:41 PM EMAIL MARKETER) Neutrophil abs 5.2 1.7 - 6.5 K/cumm [facility] Imm gran abs 0.0 0.0 - 0.1 K/cumm [facility] Lymphocyte abs 1.9 0.8 - 3.3 K/cumm [facility] Monocyte abs 0.7 0.2 - 0.8 K/cumm [facility] Eosinophil abs 0.0 0.0 - 0.5 K/cumm [facility] Basophil abs 0.0 0.0 - 0.1 K/cumm [facility] Neutrophil pct 65.5 % [facility] Comment: Interpretive Data Percent cell count reference ranges are not reported, since discordance with absolute values may lead to misinterpretation of CBC data. Current Interpretive Data was last revised on 2017. Imm gran pct 0.4 % [facility] Comment: Interpretive Data Percent cell count reference ranges are not reported, since discordance with absolute values may lead to misinterpretation of CBC data. Current Interpretive Data was last revised on 2017. Lymphocyte pct 24.0 % [facility] Comment: Interpretive Data Percent cell count reference ranges are not reported, since discordance with absolute values may lead to misinterpretation of CBC data. Current Interpretive Data was last revised on 2017. Monocyte pct 9.3 % [facility] Comment: Interpretive Data Percent cell count reference ranges are not reported, since discordance with absolute values may lead to misinterpretation of CBC data. Current Interpretive Data was last revised on 2017. Eosinophil pct 0.5 % [facility] Comment: Interpretive Data Percent cell count reference ranges are not reported, since discordance with absolute values may lead to misinterpretation of CBC data. Current Interpretive Data was last revised on 2017. Basophil pct 0.3 % [facility] Comment: Interpretive Data Percent cell count reference ranges are not reported, since discordance with absolute values may lead to misinterpretation of CBC data. Current Interpretive Data was last revised on 2017. Blood 09/23/2021 1:41 PM EMAIL MARKETER 09/23/2021 2:01 PM EMAIL MARKETER Bere Souza MD LAB BLOOD ORDERABLES F inal Result [facility] [place] [address] * Influenza A/B, RSV, and COVID-19 PCR Nasopharyngeal (09/23/2021 1:41 PM EMAIL MARKETER) COVID-19 RNA Negative Negative [facility] Influenza A RNA Negative Negative [facility] Influenza B RNA Negative Negative [facility] RSV RNA Negative Negative [facility] Comment: Interpretive data: Testing performed by [facility] ([phone]). This test is performed using the [employer] Xpert Xpress CoV-2/Flu/RSV plus assay. This is a multiplex, real-time reverse transcriptase PCR assay intended for the qualitative detection of nucleic acid from SARS-CoV-2, influenza A, influenza B, and respiratory syncytial virus. This assay has been reviewed by the FDA for Emergency Use Authorization (EUA). The performance characteristics have been verified by the [facility]. Results must be considered in the clinical context, and a negative result does not rule out infection. Interpretive Data last revised 2021. First COVID-19 test? No [facility] Employeed in healthcare? No [facility] status? No [facility] Group care resident? No [facility] Hospitalized? No [facility] Is patient in ICU? No [facility] Symptomatic as defined by CDC? No [facility] Nasopharyngeal 09/23/2021 1: 41 PM EMAIL MARKETER 09/23/2021 2:00 PM EMAIL MARKETER Narrative [facility] - 09/23/2021 2:43 PM EMAIL MARKETER Reason for testing?->Bed placement or semi-private room Known exposure to confirmed or suspected COVID-19 case?->No Bere Souza MD LAB MICROBIOLOGY - GEN ERAL ORDERABLES Final Result Performing Organization Address [facility] de Phone Number [facility] [place] [address] * Protime-INR (09/23/2021 1:41 PM EMAIL MARKETER) PT 11.6 9.5 - 13.6 sec [facility] INR 1.0 0.9 - 1.2 [facility] Comment: Interpretive data Oral anticoagulant therapeutic ranges: Venous thromboembolism prophylaxis or treatment: 2.0-3.0 CARDIOLOGY Standard range: 2.0-3.0 High-intensity range: 2.5-3.5 Refer to indication-specific guidelines for appropriate target ranges for prosthetic heart valve replacement. Current interpretive data was last revised on 2019. Blood 09/23/2021 1:41 PM EMAIL MARKETER 09/23/2021 1:54 PM EMAIL MARKETER Bere Souza MD LAB BLOOD ORDERABLES F inal Result Performing Organization Address [facility] Co de Phone Number [facility] [place] [address] * aPTT (09/23/2021 1:41 PM EMAIL MARKETER) Pathologist [facility] aPTT 27 27 - 37 sec [facility] Comment: Interpretive Data Therapeutic heparin range: 60.0 - 94.0 seconds. Based on correlation with therapeutic heparin activity range of 0.3-0.7 Units/mL. Current interpretive data was last revised on 2020. Blood 09/23/2021 1:41 PM EMAIL MARKETER 09/23/2021 1:54 PM EMAIL MARKETER Bere Souza MD LAB BLOOD ORDERABLES F inal Result Performing Organization Address [facility] [place] [address] * Type and screen (09/23/2021 1:41 PM EMAIL MARKETER) Pathologist [facility] Sheng, indirect Negative [facility] ABO Rh A Positive [facility] Blood 09/23/2021 1:41 PM EMAIL MARKETER 09/23/2021 1:59 PM EMAIL MARKETER Narrative [facility] - 09/23/2021 3:30 PM EMAIL MARKETER Has the patient had Daratumumab or Isatuximab in the past 6 months?->Unknown Bere Souza MD LAB BLOOD BANK TEST OR DERABLES Final Result Performing Organization Address [facility] Co de Phone Number [facility] [address] * Troponin I high-sensitivity series (baseline, 2hr, 4hr, 6hr) (09/23/2021 1:41 PM EMAIL MARKETER) Pathologist [facility] Trop I hs <4 <=17 ng/L [facility] Comment: Interpretive Data For further [facility] resources including the diagnostic algorithm and an aid in interpretation, copy and paste this link: [email or web address].org/show/[email or web address] Current Interpretive Data last revised 2020. Blood 09/23/2021 1:41 PM EMAIL MARKETER 09/23/2021 2:01 PM EMAIL MARKETER Bere Souza MD LAB BLOOD ORDERABLES F inal Result [facility] [place] [address] * (ABNORMAL) Urinalysis reflex to microscopic and culture Urine (09/23/2021 1:41 PM EMAIL MARKETER) Color, ur Straw Yellow [facility] Clarity, ur Cloudy(A) Clear [facility] Specific gravity, ur 1.014 1.003 - 1.030 [facility] pH, urine 7.[address] [facility] Protein, ur ql Trace Negative [facility] Glucose, ur ql Negative Negative [facility] Ketones, ur Negative Negative [facility] Bilirubin, ur Negative Negative [facility] Blood, ur Negative Negative [facility] Urobilinogen, ur <2.0 <2.0 mg/dL [facility] Nitrite, ur Negative Negative [facility] Leukocyte esterase, ur Negative Negative [facility] UA reflex comment Reflex conditions for microscopic UA and culture not met. [facility] Urine 09/23/2021 1:41 PM EMAIL MARKETER 09/23/2021 1:59 PM EMAIL MARKETER Narrative [facility] - 09/23/2021 2:00 PM EMAIL MARKETER ?? Urine pH is affected by diet, medications, systemic acid-base disturbances, and renal tubular function. ??pH may affect urinary stone formation. ??For example, urine pH below 6.0 may help reduce the tendency for calcium phosphate stones and pH greater than 6.0 may reduce the tendency for uric acid stone formation. Source: [employer]. Last revised 08-15-2017 Bere Souza MD LAB MICROBIOLOGY - GEN ERAL ORDERABLES Final Result [facility] Department [place] [address] * (ABNORMAL) Comprehensive metabolic panel (09/23/2021 1:41 PM EMAIL MARKETER) Sodium 140 135 - 145 mmol/L [facility] Potassium, pl 4.2 3.3 - 4.9 mmol/L [facility] Comment:Hemolyzed; Potassium value may be falsely elevated by as much as 0.3-0.5 mmol/L. Suggest redraw and reanalysis. Chloride 97 97 - 110 mmol/L [facility] CO2 35(H) 22 - 32 mmol/L [facility] Anion gap 8 2 - 15 mmol/L [facility] BUN 12 8 - 25 mg/dL [facility] Creatinine 0.43(L) 0.60 - 1.10 mg/dL [facility] Glucose 116 70 - 199 mg/dL [facility] Comment: Interpretive Data Fasting glucose >/= [...] Current interpretive data was last revised 2017. Calcium 9.4 8.5 - 10.3 mg/dL [facility] Bilirubin, total 0.3 0.1 - 1.2 mg/dL [facility] Protein, pl 7.1 6.5 - 8.5 g/dL [facility] Albumin 4.1 3.5 - 5.0 g/dL [facility] Alk phos 137(H) 40 - 130 Units/L [facility] ALT 15 7 - 45 Units/L [facility] AST 22 10 - 45 Units/L [facility] Comment:Hemolyzed; result ma y be falsely elevated Blood 09/23/2021 1:41 PM EMAIL MARKETER 09/23/2021 2:01 PM EMAIL MARKETER Bere Souza MD LAB BLOOD ORDERABLES F inal Result Performing Organization Address [facility]/ZIP Co de Phone Number [facility] Department [place] [address] * (ABNORMAL) CBC with auto differential (09/23/2021 1:41 PM EMAIL MARKETER) [facility] WBC 7.9 3.8 - 9.9 K/cumm [facility] Hgb 11.7(L) 11.9 - 15.5 g/dL [facility] Hct 35.0(L) 35.6 - 45.5 % [facility] Plt 263 150 - 400 K/cumm [facility] MPV 9.2 9.1 - 12.3 fL [facility] RBC 3.71(L) 3.90 - 5.20 M/cumm [facility] MCV 94.3 81.3 - 96.4 fL [facility] MCH 31.5 27.1 - 33.3 pg [facility] MCHC 33.4 32.3 - 35.7 g/dL [facility] RDW CV 11.7 11.1 - 14.9 % [facility] RDW SD 40.2 35.7 - 48.1 fL [facility] NRBC abs 0.00 0.00 - 0.01 K/cumm [facility] Blood 09/23/2021 1:41 PM EMAIL MARKETER 09/23/2021 2:01 PM EMAIL MARKETER Bere Souza MD LAB BLOOD ORDERABLES F inal Result [facility] [place] [address] * Neuro CT MR Outside Consult (09/23/2021 1:34 PM EMAIL MARKETER) Anatomical Region Laterality Modality N/A Computed Tomogra phy 09/23/2021 1:50 PM EMAIL MARKETER Impressions 09/23/2021 2:02 PM EMAIL MARKETER 1. ??L2 compression fracture with approximately 20% [...] images may or may not represent the [place] source data set and thus may contain changes that may lower the accuracy of this second-opinion interpretation. Dictated by: Gilda Redd M.D. The radiology attending physician has personally reviewed this study, and had reviewed and/or edited this written report and agrees with it. Electronically signed by: Carlos Gauthier M.D. Narrative 09/23/2021 2:02 PM EMAIL MARKETER EXAMINATION: RADIOLOGY CONSULTATION ON OUTSIDE IMAGING STUDY STUDY INITIALLY PERFORMED: 09/23/2021 at [facility]. TYPE OF STUDY: Multiple CT images of [...] IMAGING STUDY STUDY INITIALLY PERFORMED: 09/23/2021 at [facility]. TYPE OF STUDY: Multiple CT images of [...] and mild retropulsion, which is unchanged from 2020. There is an age indeterminate L2 compression [...] images may or may not represent the [place] source data set and thus may contain changes that may lower the accuracy of this second-opinion interpretation. Dictated by: Gilda Redd M.D. The radiology attending physician has personally reviewed this study, and had reviewed and/or edited this written report and agrees with it. Electronically signed by: Carlos Gauthier M.D. us Elo Martinez MD IMG CT PROCEDURES Fi nal Result * XR Chest 1 Vw Portable (09/23/2021 1:34 PM EMAIL MARKETER) Anatomical Region Laterality Modality Body, Chest N/A Computed Radiogr aphy 09/23/2021 2:26 PM EMAIL MARKETER Impressions 09/23/2021 3:21 PM EMAIL MARKETER 1 view of the chest is submitted for interpretation with comparison made to prior chest radiograph dated 08/25/2020. There has been interval removal of the previously noted endotracheal tube and enteric tube. There are mild bilateral pulmonary opacities, most compatible with subsegmental atelectasis superimposed on a background of mild pulmonary edema. ??There are emphysematous changes in both lungs. ??No pneumothorax. The heart size and mediastinal contours stable. There is unchanged calcified atherosclerosis of the thoracic aorta. Tortuous thoracic aorta in course. Diffuse osteopenia. A reported L2 burst fracture is not well evaluated on this single frontal radiograph of the chest. Dictated by: Vaughn Velázquez M.D. The radiology attending physician has personally reviewed this study, and had reviewed and/or edited this written report and agrees with it. Electronically signed by: Kyle Monet MD Narrative 09/23/2021 3:21 PM EMAIL MARKETER EXAMINATION: 1 view chest radiograph Procedure Note Kyle Monet MD - 09/23/2021 EXAMINATION: 1 view chest radiograph IMPRESSION: 1 view of the chest is submitted for interpretation with comparison made to prior chest radiograph dated 08/25/2020. There has been interval removal of the previously noted endotracheal tube and enteric tube. There are mild bilateral pulmonary opacities, most compatible with subsegmental atelectasis superimposed on a background of mild pulmonary edema. There are emphysematous changes in both lungs. No pneumothorax. The heart size and mediastinal contours stable. There is unchanged calcified atherosclerosis of the thoracic aorta. Tortuous thoracic aorta in course. Diffuse osteopenia. A reported L2 burst fracture is not well evaluated on this single frontal radiograph of the chest. Dictated by: Vaughn Velázquez M.D. The radiology attending physician has personally reviewed this study, and had reviewed and/or edited this written report and agrees with it. Electronically signed by: Kyle Monet MD us Bere Souza MD IMG XR PROCEDURES Sandra l Result * Neuro CT MR Outside Consult (09/23/2021 1:30 PM EMAIL MARKETER) Anatomical Region Laterality Modality N/A Computed Tomogra phy 09/23/2021 1:50 PM EMAIL MARKETER Impressions 09/23/2021 2:02 PM EMAIL MARKETER 1. ??L2 compression fracture with approximately 20% [...] images may or may not represent the [place] source data set and thus may contain changes that may lower the accuracy of this second-opinion interpretation. Dictated by: Gilda Redd M.D. The radiology attending physician has personally reviewed this study, and had reviewed and/or edited this written report and agrees with it. Electronically signed by: Carlos Gauthier M.D. Narrative 09/23/2021 2:02 PM EMAIL MARKETER EXAMINATION: RADIOLOGY CONSULTATION ON OUTSIDE IMAGING STUDY STUDY INITIALLY PERFORMED: 09/23/2021 at [facility]. TYPE OF STUDY: Multiple CT images of [...] IMAGING STUDY STUDY INITIALLY PERFORMED: 09/23/2021 at [facility]. TYPE OF STUDY: Multiple CT images of [...] images may or may not represent the [place] source data set and thus may contain changes that may lower the accuracy of this second-opinion interpretation. Dictated by: Gilda Redd M.D. The radiology attending physician has personally reviewed this study, and had reviewed and/or edited this written report and agrees with it. Electronically signed by: Carlos Gauthier M.D. Elo Martinez MD IMG CT PROCEDURES Fi nal Result * Neuro CT MR Outside Consult (09/23/2021 1:27 PM EMAIL MARKETER) Anatomical Region Laterality Modality N/A Computed Tomogra phy 09/23/2021 1:50 PM EMAIL MARKETER Impressions 09/23/2021 2:02 PM EMAIL MARKETER 1. ??L2 compression fracture with approximately 20% [...] images may or may not represent the [place] source data set and thus may contain changes that may lower the accuracy of this second-opinion interpretation. Dictated by: Gilda Redd M.D. The radiology attending physician has personally reviewed this study, and had reviewed and/or edited this written report and agrees with it. Electronically signed by: Carlos Gauthier M.D. Narrative 09/23/2021 2:02 PM EMAIL MARKETER EXAMINATION: RADIOLOGY CONSULTATION ON OUTSIDE IMAGING STUDY STUDY INITIALLY PERFORMED: 09/23/2021 at [facility]. TYPE OF STUDY: Multiple CT images of [...] IMAGING STUDY STUDY INITIALLY PERFORMED: 09/23/2021 at [facility]. TYPE OF STUDY: Multiple CT images of [...] images may or may not represent the [place] source data set and thus may contain changes that may lower the accuracy of this second-opinion interpretation. Dictated by: Gilda Redd M.D. The radiology attending physician has personally reviewed this study, and had reviewed and/or edited this written report and agrees with it. Electronically signed by: Carlos Gauthier M.D. Elo Martinez MD IMG CT PROCEDURES Fi nal Result * XR Outside Reference (09/23/2021 1:25 PM EMAIL MARKETER) Impressions [facility] - 09/23/2021 1:25 PM EMAIL MARKETER These images are for Reference purposes only and have not been reviewed by [facility]. ??There will be no report generated by a [facility] Radiologist. Narrative [facility] - 09/23/2021 1:25 PM EMAIL MARKETER EXAMINATION: ??Images For Reference Purposes Only Elo Martinez MD IMG XR PROCEDURES Fi nal Result [facility] * ECG 12-LEAD (09/23/2021 1:19 PM EMAIL MARKETER) Narrative [facility] - 09/23/2021 1:19 PM EMAIL MARKETER Breanna Sutton MD ? 09/23/2021 ??1:19 PM ECG 12 lead Date/Time: 09/23/2021 1:19 PM Performed by: Breanna Sutton MD Authorized by: Bere Souza MD Rate: ??ECG rate: ??77 ??ECG rate assessment: normal ?? Rhythm: ??Rhythm: sinus rhythm ?? Ectopy: ??Ectopy: none ?? QRS: ??QRS axis: ??Normal ??QRS intervals: ??Normal Conduction: ??Conduction: normal ?? ST segments: ??ST segments: ??Normal T waves: ??T waves: normal ?? Previous ECG: ??Previous ECG: ??Unavailable Interpretation: ??Interpretation: normal ?? Recommended Follow-up: ??Recommended follow up: further workup in the ED ?? Procedure Note Breanna Sutton MD - 09/23/2021 1:19 PM CST Procedure ECG 12 lead Date/Time: 09/23/2021 1:19 PM Performed by: Breanna Sutton MD Authorized by: Bere Souza MD Rate: ECG rate: 77 ECG rate assessment: normal Rhythm: Rhythm: sinus rhythm Ectopy: Ectopy: none QRS: QRS axis: Normal QRS intervals: Normal Conduction: Conduction: normal ST segments: ST segments: Normal T waves: T waves: normal Previous ECG: Previous ECG: Unavailable Interpretation: Interpretation: normal Recommended Follow-up: Recommended follow up: further workup in the ED Breanna Sutton MD 09/23/21 1319 Bere Souza MD ECG ORDERABLES Final Result [facility] documented in this encounter Visit Diagnoses Diagnosis Diagnosis unknown- Primary Diagnosis unknown Closed wedge compression fracture of L2 vertebra, initial encounter ([facility]) Frail elderly Fall, initial encounter Anemia, unspecified type Elevated alkaline phosphatase level documented in this encounter Administered Medications Inactive Administered Medications - up to 3 most recent administrations Medication Order MAR Action Action Date Dose Rate Site acetaminophen (TYLENOL) tablet 1,000 mg 1,000 mg, oral, Every 6 hours, First dose on 09/23/21 at 2345, Indications: PainIndications:Pain Given 2021 11:07 AM EMAIL MARKETER 1,000 mg Given 2021 5:29 AM EMAIL MARKETER 1,000 mg Given 09/26/2021 11:13 PM EMAIL MARKETER 1,000 mg albuterol HFA (PROVENTIL HFA,VENTOLIN HFA,PROAIR HFA) 90 mcg/actuation inhaler 2 puff 2 puff, inhalation, Every 4 hours PRN (incident response analyst), wheezing, Starting on 09/23/21 at 2315 bisacodyL (DULCOLAX) suppository 10 mg 10 mg, rectal, Daily PRN, constipation, Starting on Sat09/25/21 at 0921, Indications: constipationIndications:constipation bisacodyl EC (DULCOLAX EC) tablet 5 mg 5 mg, oral, Once, On Sat09/25/21 at 2130, For 1 dose, Do not crush, chew, cut, dissolve, open or otherwise manipulate tablet/capsule., Indications: constipationIndications:constipation Given 09/25/2021 9:03 PM EMAIL MARKETER 5 mg clindamycin (CLEOCIN) capsule 300 mg 300 mg, oral, 4 times daily, First dose on Sat09/25/21 at 1200, Indications: Skin/Soft Tissue InfectionIndications:Skin/Soft Tissue Infection Given 2021 12:39 PM EMAIL MARKETER 300 mg Given 2021 9:19 AM EMAIL MARKETER 300 mg Given 09/26/2021 8:34 PM EMAIL MARKETER 300 mg cyclobenzaprine (FLEXERIL) tablet 5 mg 5 mg, oral, 3 times daily, First dose on Sat09/25/21 at 1600 Given 2021 9:19 AM EMAIL MARKETER 5 mg Given 09/26/2021 8:35 PM EMAIL MARKETER 5 mg Given 09/26/2021 5:50 PM EMAIL MARKETER 5 mg enoxaparin (LOVENOX) syringe 30 mg 30 mg, subcutaneous, Every 12 hours scheduled, First dose on 09/23/21 at 2345, Indications: Deep Vein Thrombosis PreventionIndications:Deep Vein Thrombosis Prevention Given 09/26/2021 8:30 PM EMAIL MARKETER 30 mg Left Lower Abdomen Given 09/26/2021 9:19 AM EMAIL MARKETER 30 mg Le ft Lower Abdomen Given 09/25/2021 8:54 PM EMAIL MARKETER 30 mg Le ft Lower Abdomen gabapentin (NEURONTIN) capsule 100 mg 100 mg, oral, Nightly, First dose on 09/23/21 at 2345, Do not crush, break, or open. Given 09/24/2021 9:39 PM EMAIL MARKETER 100 mg Given 09/23/2021 11:23 PM EMAIL MARKETER 100 mg gabapentin (NEURONTIN) capsule 300 mg 300 mg, oral, Nightly, First dose (after last modification) on Sat09/25/21 at 2100, Do not crush, break, or open. Given 09/26/2021 8:27 PM EMAIL MARKETER 300 mg Given 09/25/2021 9:00 PM EMAIL MARKETER 300 mg hydroCHLOROthiazide (HYDRODIURIL) tablet 12.5 mg 12.5 mg, oral, Daily, First dose on 09/24/21 at 1430 Given 09/26/2021 5:47 PM EMAIL MARKETER 12.5 mg Given 09/25/2021 5:53 PM EMAIL MARKETER 12.5 mg Given 09/24/2021 8:04 PM EMAIL MARKETER 12.5 mg Lactated Ringer's (LR) infusion - ADS Override Pull Starting on 09/24/21 at 0037, For 1 dose, Created by cabinet override Lactated Ringer's (LR) infusion 100 mL/hr, intravenous, Continuous, Starting on 09/24/21 at 0000, May stop when tolerating adequate PO intake Rate/Dose Verify 09/24/2021 12:48 AM EMAIL MARKETER 100 mL/hr 100 mL/hr New Bag 09/24/2021 12:47 AM EMAIL MARKETER 100 mL/hr 100 mL/hr lidocaine (LIDODERM) 5 % patch 2 patch 2 patch, transdermal, Administer over 12 Hours, Daily, First dose on 09/25/21 at 1400, Do not cover the holes on the top side of the patch., Apply to affected area: back Medication Applied 09/26/2021 9:20 AM EMAIL MARKETER 2 patches Other (Comment) Medication Applied 09/25/2021 1:58 PM EMAIL MARKETER 2 patches Back metoprolol tartrate (LOPRESSOR) immediate release tablet 25 mg 25 mg, oral, 2 times daily, First dose on 09/23/21 at 2345 Given 2021 9:19 AM EMAIL MARKETER 25 mg Given 09/26/2021 8:27 PM EMAIL MARKETER 25 mg Given 09/26/2021 9:20 AM EMAIL MARKETER 25 mg morphine injection 4 mg 4 mg, intravenous, Administer over 4 Minutes, Once, On 09/23/21 at 1443, For 1 dose Given 09/23/2021 2:50 PM EMAIL MARKETER 4 m g morphine injection 4 mg 4 mg, intravenous, Administer over 4 Minutes, Once, On 09/23/21 at 1936, For 1 dose Given 09/23/2021 7:37 PM EMAIL MARKETER 4 m g ondansetron (ZOFRAN) injection 4 mg 4 mg, intravenous, Administer over 2 Minutes, Once, On 09/23/21 at 1443, For 1 dose Given 09/23/2021 2:48 PM EMAIL MARKETER 4 m g ondansetron (ZOFRAN) injection 4 mg 4 mg, intravenous, Administer over 2 Minutes, Once, On 09/23/21 at 1936, For 1 dose Given 09/23/2021 7:37 PM EMAIL MARKETER 4 m g ondansetron (ZOFRAN) injection 4 mg 4 mg, intravenous, Administer over 2 Minutes, Once, On Sat09/25/21 at 2130, For 1 dose Given 09/26/2021 8:26 PM EMAIL MARKETER 4 m g ondansetron ODT (ZOFRAN-ODT) disintegrating tablet 4 mg 4 mg, oral, Every 4 hours PRN, nausea, vomiting, Starting on 09/23/21 at 2307 Given 09/23/2021 11:24 PM EMAIL MARKETER 4 mg oxyCODONE (ROXICODONE) tablet 5 mg 5 mg, oral, Every 6 hours PRN, 1st line for pain, Starting on 09/23/21 at 2307, Indications: PainIndications:Pain Given 09/25/2021 12:15 PM EMAIL MARKETER 5 mg Given 09/25/2021 6:05 AM EMAIL MARKETER 5 mg Given 09/24/2021 11:47 PM EMAIL MARKETER 5 mg oxyCODONE (ROXICODONE) tablet 5 mg 5 mg, oral, Every 4 hours PRN, 2nd line for pain, Starting on Sat09/25/21 at 1330, Indications: PainIndications:Pain Given 2021 11:07 AM EMAIL MARKETER 5 mg Given 2021 5:29 AM EMAIL MARKETER 5 mg Given 09/26/2021 8:35 PM EMAIL MARKETER [address] (PROTONIX) extended release tablet 40 mg 40 mg, oral, Daily, First dose on Sat09/26/21 at 0900, Do not crush, chew, cut, dissolve, open or otherwise manipulate tablet/capsule., Indications: Stress Ulcer ProphylaxisIndications:Stress Ulcer Prophylaxis Given 2021 9:19 AM EMAIL MARKETER 40 mg Given 09/26/2021 9:20 AM EMAIL MARKETER 40 mg polyethylene glycol (MIRALAX) packet 17 g 17 g, oral, Daily, First dose on Sat09/24/21 at 1000, Indications: constipationIndications:constipation Given 09/26/2021 9:21 AM EMAIL MARKETER 17 g Given 09/25/2021 10:35 AM EMAIL MARKETER 17 g Given 09/24/2021 12:26 PM EMAIL MARKETER 17 g senna (SENOKOT) tablet 2 tablet 2 tablet, oral, 2 times daily, First dose on 09/23/21 at 2345, Hold for diarrhea., Indications: constipationIndications:constipation Given 09/24/2021 9:39 PM EMAIL MARKETER 2 table ts Given 09/24/2021 9:31 AM EMAIL MARKETER 2 tablets senna-docusate (PERICOLACE) 8.6-50 mg per tablet 2 tablet 2 tablet, oral, 2 times daily, First dose on 09/25/21 at 1000 Given 2021 9:19 AM EMAIL MARKETER 2 tablets Given 09/26/2021 9:21 AM EMAIL MARKETER 2 tablets Given 09/25/2021 9:00 PM EMAIL MARKETER 2 tablets sodium chloride 0.9% flush 0.5-20 mL 0.5-20 mL, intra-catheter, Every 8 hours scheduled, First dose on 09/23/21 at 2345, Flush volume based on line type and size. Given 09/26/2021 2:00 PM EMAIL MARKETER 10 mL Given 09/26/2021 5:41 AM EMAIL MARKETER 10 mL Given 09/25/2021 9:03 PM EMAIL MARKETER 10 mL sodium chloride 0.9% flush 0.5-20 mL 0.5-20 mL, intra-catheter, Every 8 hours scheduled, First dose on 09/23/21 at 2345, Flush volume based on line type and size. Given 09/26/2021 8:30 PM EMAIL MARKETER 10 mL Given 09/26/2021 5:40 AM EMAIL MARKETER 10 mL Given 09/25/2021 9:03 PM EMAIL MARKETER 10 mL umeclidinium (INCRUSE ELLIPTA) 62.5 mcg/actuation inhaler 62.5 mcg 62.5 mcg (1 puff), inhalation, Daily (incident response analyst), First dose on 09/24/21 at 0900 Given 09/24/2021 9:12 AM EMAIL MARKETER 62. 5 mcg umeclidinium (INCRUSE ELLIPTA) 62.5 mcg/actuation inhaler 62.5 mcg 62.5 mcg (1 puff), inhalation, Daily, First dose (after last modification) on 09/25/21 at 0900 Given 2021 9:21 AM EMAIL MARKETER 62.5 mcg Given 09/26/2021 9:34 AM EMAIL MARKETER 62.5 mcg Given 09/25/2021 10:37 AM EMAIL MARKETER 62.5 mcg documented in this encounter Discontinued Medications Medication Sig Discontinue Reason Start Date End Da te oxyCODONE (ROXICODONE) 5 mg immediate release tabletIndications:Pain Take 1 tablet (5 mg total) by mouth every 4 (four) hours as needed for pain Reorder 09/16/2020 2021 acetaminophen (TYLENOL) 325 mg tablet Take 2 tablets (650 mg total) by mouth every 4 (four) hours as needed for pain Stop Taking at Discharge 08/29/2020 2021 busPIRone (BUSPAR) 10 mg tabletIndications:Gene ralized Anxiety Disorder Take 1 tablet (10 mg total) by mouth 2 (two) times a day Stop Taking at Discharge 08/30/2020 2021 cholecalciferol (VITAMIN D-3) 2000 unit capsule Take 1 capsule (2,000 Units total) by mouth daily Stop Taking at Discharge 08/30/2020 2021 fluticasone furoate-vilanteroL (BREO ELLIPTA) 100-25 mcg/dose diskus inhaler Inhale 1 puff daily Rinse mouth with water after use. Do not swallow. Stop Taking at Discharge 08/30/2020 2021 metoprolol XL (TOPROL-XL) 100 mg 24 hr tablet Take 1 tablet (100 mg total) by mouth daily Stop Taking at Discharge 08/30/2020 2021 montelukast (SINGULAIR) 10 mg tablet Take 1 tablet (10 mg total) by mouth nightly Stop Taking at Discharge 08/30/2020 2021 umeclidinium (INCRUSE ELLIPTA) 62.5 mcg/actuation blister with device Inhale 1 puff (62.5 mcg total) daily Stop Taking at Discharge 08/30/2020 2021 amitriptyline (ELAVIL) 25 mg tablet Take 1 tablet (25 mg total) by mouth daily Stop Taking at Discharge 09/17/2020 2021 ramelteon (ROZEREM) 8 mg tabletIndications:Slee p-Onset Insomnia Take 1 tablet (8 mg total) by mouth nightly Stop Taking at Discharge 09/16/[address] (VOLTAREN) 75 mg EC tablet Take by mouth Stop Taking at Discharge 01/29/2020 2021 oxyCODONE-acetaminophe n (PERCOCET) 10-325 mg per tablet Take 1 tablet by mouth every 12 (twelve) hours Stop Taking at Discharge 2021 gabapentin (NEURONTIN) 100 mg capsule Take 1 capsule (100 mg total) by mouth nightly Stop Taking at Discharge 12/28/2020 2021 traMADoL (ULTRAM) 50 mg tablet Take 1 tablet (50 mg total) by mouth every 8 (eight) hours as needed for pain Stop Taking at Discharge 02/18/2021 2021 clindamycin (CLEOCIN) 300 mg capsule Stop Taking at Discharge 09/22/2021 2021 documented as of this encounter Historical Medications * This list may reflect changes made after this encounter. Medication Sig Dispense Quantity Refills Last Filled Start D ate End Date Advair Diskus 250-50 mcg/dose diskus inhaler 08/11/2021 clindamycin (CLEOCIN) 300 mg capsule 09/22/2021 2021 added in this encounter Active and Recently Administered Medications Times are shown in EMAIL MARKETER. Scheduled Medication Order 09/25/2021 09/26/2021 2021 acetaminophen (TYLENOL) tablet 1,000 mg 1,000 mg, oral, Every 6 hours, First dose on 09/23/21 at 2345, Indications: Pain 0605 (Given - Provider: Shira Hassan RN)1037 (Given - Provider: Luma Campbell RN)1753 (Given - Provider: Luma Campbell RN) 0001 (Given - Provider: Shira Hassan RN)0540 (Given - Provider: Shira Hassan RN)1059 (Given - Provider: Shwetha Lyles RN)1747 (Given - Provider: Shwetha Lyles RN)2313 (Given - Provider: Felisa Frausto RN) 0529 (Given - Provider: Felisa Frausto RN)1107 (Given - Provider: Jimmy Forbes, RN) bisacodyl EC (DULCOLAX EC) tablet 5 mg (COMPLETED) 5 mg, oral, Once, On Sat09/25/21 at 2130, For 1 dose, Do not crush, chew, cut, dissolve, open or otherwise manipulate tablet/capsule., Indications: constipation 210 (Given - Provider: Shira Hassan RN) clindamycin (CLEOCIN) capsule 300 mg 300 mg, oral, 4 times daily, First dose on Sat09/25/21 at 1200, Indications: Skin/Soft Tissue Infection 1215 (Given - Provider: Luma Campbell RN)1753 (Given - Provider: Luma Campbell RN)2207 (Given - Provider: Shira Hassan RN - Comment: given late previous shift) 0927 (Given - Provider: Shwetha Lyles RN)1327 (Given - Provider: Shwetha Lyles RN)1751 (Given - Provider: Shwetha Lyles RN)2034 (Given - Provider: Felisa Frausto RN) 0919 (Given - Provider: Jimmy Forbes, JUAN)1239 (Given - Provider: Jimmy Forbes, RN) cyclobenzaprine (FLEXERIL) tablet 5 mg 5 mg, oral, 3 times daily, First dose on Sat09/25/21 at 1600 1753 (Given - Provider: Luma Campbell RN)2206 (Given - Provider: Shira Hassan RN) 0920 (Given - Provider: Shwetha Lyles RN)1750 (Given - Provider: Shwetha Lyles RN)203 (Given - Provider: Felisa Frausto RN) 0919 (Given - Provider: Jimmy Forbes, JUAN) enoxaparin (LOVENOX) syringe 30 mg 30 mg, subcutaneous, Every 12 hours scheduled, First dose on Sat09/23/21 at 2345, Indications: Deep Vein Thrombosis Prevention 0938 (Given - Provider: Luma Campbell RN)2053 (Given - Provider: Shira Hassan RN) 09 (Given - Provider: Shwetha Lyles, JUAN)2029 (Given - Provider: Felisa Frausto, JUAN) 921 (Not Given - Provider: Jimmy Forbes, RN - Reason: Medication not available) gabapentin (NEURONTIN) capsule 300 mg 300 mg, oral, Nightly, First dose (after last modification) on Sat09/25/21 at 2100, Do not crush, break, or open. 2099 (Given - Provider: Shira Hassan RN) 2026 (Given - Provider: Felisa Frausto RN) hydroCHLOROthiazide (HYDRODIURIL) tablet 12.5 mg 12.5 mg, oral, Daily, First dose on Sat09/24/21 at 1430 1753 (Given - Provider: Luma Campbell RN) 1747 (Given - Provider: Shwetha Lyles RN) lidocaine (LIDODERM) 5 % patch 2 patch 2 patch, transdermal, Administer over 12 Hours, Daily, First dose on Sat09/25/21 at 1400, Do not cover the holes on the top side of the patch., Apply to affected area: back 1358 (Medication Applied - Provider: Luma Campbell RN) 0200 (Medication Removed - Provider: Shira Hassan RN)09 (Medication Applied - Provider: Shwetha Lyles, JUAN)2099 (Medication Removed - Provider: Felisa Frausto RN) 0900 (Due) metoprolol tartrate (LOPRESSOR) immediate release tablet 25 mg 25 mg, oral, 2 times daily, First dose on 09/23/21 at 2345 0937 (Given - Provider: Luma Campbell RN)2099 (Given - Provider: Shira Hassan RN) 09 (Given - Provider: Shwetha Lyles RN)2026 (Given - Provider: Felisa Frausto RN) 09 (Given - Provider: Jimmy Forbes, RN) ondansetron (ZOFRAN) injection 4 mg (COMPLETED) 4 mg, intravenous, Administer over 2 Minutes, Once, On Sat09/25/21 at 2130, For 1 dose 2154 (Not Given - Provider: Shira Hassan RN - Reason: Order parameters not met - Comment: pt only wants her protonix) 2025 (Given - Provider: Felisa Frausto, JUAN) pantoprazole DR (PROTONIX) extended release tablet 40 mg 40 mg, oral, Daily, First dose on Sat09/26/21 at 0900, Do not crush, chew, cut, dissolve, open or otherwise manipulate tablet/capsule., Indications: Stress Ulcer Prophylaxis 0920 (Given - Provider: Shwetha Lyles, JUAN) 0919 (Given - Provider: Jimmy Forbes, JUAN) polyethylene glycol (MIRALAX) packet 17 g 17 g, oral, Daily, First dose on Sat09/24/21 at 1000, Indications: constipation 1035 (Given - Provider: Luma Campbell RN) 0921 (Given - Provider: Shwetha Lyles RN) 0921 (Not Given - Provider: Jimmy Forbes, JUAN - Reason: Medication not available) senna-docusate (PERICOLACE) 8.6-50 mg per tablet 2 tablet 2 tablet, oral, 2 times daily, First dose on Sat09/25/21 at 1000 0937 (Given - Provider: Luma Campbell RN)2100 (Given - Provider: Shira Hassan RN) 0921 (Given - Provider: Shwetha Lyles, JUAN)2034 (Not Given - Provider: Felisa Frausto RN - Reason: Order parameters not met) 09 (Given - Provider: Jimmy Forbes, JUAN) sodium chloride 0.9% flush 0.5-20 mL 0.5-20 mL, intra-catheter, Every 8 hours scheduled, First dose on Sat09/23/21 at 2345, Flush volume based on line type and size. 0607 (Given - Provider: Shira Hassan RN)1358 (Given - Provider: Luma Campbell RN)2103 (Given - Provider: Shira Hassan RN) 0541 (Given - Provider: Shira Hassan RN)1400 (Given - Provider: Shwetha Lyles RN)2200 (Not Given - Provider: Felisa Frausto RN - Reason: Other - Comment: already given) 0639 (Not Given - Provider: Felisa Frausto RN - Reason: Other) sodium chloride 0.9% flush 0.5-20 mL 0.5-20 mL, intra-catheter, Every 8 hours scheduled, First dose on 09/23/21 at 2345, Flush volume based on line type and size. 0607 (Given - Provider: Shira Hassan RN)1357 (Given - Provider: Luma Campbell, JUAN)2103 (Given - Provider: Shira Hassan RN) 0540 (Given - Provider: Shira Hassan RN)1751 (Not Given - Provider: Shwetha Lyles RN - Reason: Order parameters not met)2030 (Given - Provider: Felisa Frautso RN) 0639 (Not Given - Provider: Felisa Frausto RN - Reason: Other) umeclidinium (INCRUSE ELLIPTA) 62.5 mcg/actuation inhaler 62.5 mcg 62.5 mcg (1 puff), inhalation, Daily, First dose (after last modification) on Sat09/25/21 at 0900 1037 (Given - Provider: Luma Campbell RN) 0934 (Given - Provider: Shwetha Lyles, JUAN) 0921 (Given - Provider: Jimmy Forbes RN) PRN Medication Order 09/25/2021 09/26/2021 2021 albuterol HFA (PROVENTIL HFA,VENTOLIN HFA,PROAIR HFA) 90 mcg/actuation inhaler 2 puff 2 puff, inhalation, Every 4 hours PRN (incident response analyst), wheezing, Starting on 09/23/21 at 2315 bisacodyL (DULCOLAX) suppository 10 mg 10 mg, rectal, Daily PRN, constipation, Starting on 09/25/21 at 0921, Indications: constipation oxyCODONE (ROXICODONE) tablet 5 mg (CANCELED) 5 mg, oral, Every 6 hours PRN, 1st line for pain, Starting on 09/23/21 at 2307, Indications: Pain 0605 (Given - Provider: Shira Hassan, RN)1215 (Given - Provider: Luma Campbell, JUAN) oxyCODONE (ROXICODONE) tablet 5 mg 5 mg, oral, Every 4 hours PRN, 2nd line for pain, Starting on 09/25/21 at 1330, Indications: Pain 1753 (Given - Provider: Luma Campbell, JUAN) 1325 (Given - Provider: Shwetha Lyles RN)2035 (Given - Provider: Felisa Frausto, JUAN) 0529 (Given - Provider: Felisa Frausto RN)1107 (Given - Provider: Jimmy Forbes RN) sodium chloride 0.9% flush 0.5-20 mL 0.5-20 mL, intra-catheter, As needed, line care, Starting on 09/23/21 at 2307, Flush volume based on line type and size. Flush before and after each use. sodium chloride 0.9% flush 0.5-20 mL 0.5-20 mL, intra-catheter, As needed, line care, Starting on 09/23/21 at 2307, Flush volume based on line type and size. Flush before and after each use. documented in this encounter Orders Medications Ordered That Juan ht Not Have Been Administered Count Last Ordered Date First Ordered Date bisacodyL (DULCOLAX) suppository 10 mg 1 albuterol HFA (PROVENTIL HFA ,VENTOLIN HFA,PROAIR HFA) 90 mcg/actuation inhaler 2 puff 2 09/23/2021 sodium chloride 0.9% flush 0.5-20 mL 2 09/05 Diet Count Last Ordered Date First Orde red Date ADULT DISCHARGE DIET 1 2021 Nursing Count Last Ordered Date First Orde red Date DISCHARGE ACTIVITY 5 2021 DISCHARGE CALL PROVIDER 7 2021 DISCHARGE DRESSING 2 2021 FOLLOW UP WITH ESTABLISHED PROVIDER 1 09/27 WEIGHT BEARING STATUS 1 2021 WEIGH PATIENT 1 09/23/2021 Consult Count Last Ordered Date First Orde red Date IP CONSULT TO SOCIAL WORK 1 09/25/2021 IP CONSULT TO ORTHO SPINE 1 09/23/2021 Transfer Count Last Ordered Date First Orde red Date TRANSFER PATIENT 1 09/23/2021 ADT Patient Update Count Last Ordered Date Firs t Ordered Date ED IP DECISION TO ADMIT 1 09/23/2021 documented in this encounter Care Teams Government Affairs Fellow Relationship Specialty Start Date End Date Linda Nagy MD PCP - General Internal Medicine 12/21/20 To Caballero MD [address] [place] [address] Referring Physician Obstetrics and Gynecology 06/09/21 documented as of this encounter
--- OUTSIDE RECORDS SUMMARY | 2024-08-05 02:31 | XMS_ITS | Encounter Summary ---
Author Organization [facility] Address [address] [place] [address] Care Team Providers Care Stitch Wheeler Name Role Phone Eusebio Nagy MD Primary Care Provider + [phone] Reason for Visit * Reason Onset Date Comments Patient issue/concern 12/21/2020 cervical fracture 12/21/2020 Encounter Details Date Type Department Care Team (Late st Contact Info) Description 12/21/2020 Telephone [facility] [id number] [address] [place] [id number] [address] [place] [address] Patient issue/concern; cervical fracture Social History Tobacco Use Types Packs/Day Years Used Date Smoking Tobacco: Former Cigarettes Q uit: 08/23/2004 Comments No Sex and Gender Information Value Date Recorded Sex Assigned at Not on file Legal Sex Female 11: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 * Telephone Encounter - Scott Cornejo - 12/23/2020 8:31 AM CDT LVM for patient to call back. Manuel Shira with Dr Nagy office. * Telephone Encounter - Indio Rondon MD - 12/23/2020 2:57 AM CDT I can see her today or next Saturday. * Telephone Encounter - Scott Cornejo - 12/21/2020 3:15 PM CDT Cherelle from Dr Nagy office calling. Patient has a cervical fracture. They are asking for the patient to a soon appointment. Can you please review MRI and advise for appointment? Cherelle with Dr Nagy office # [phone] documented in this encounter Plan of Treatment Not on file documented as of this encounter Visit Diagnoses Not on filedocumented in this encounter Care Teams Stitch Wheeler Relationship Specialty Start Date End Date Eusebio Nagy MD PCP - General Internal Medicine 12/21/20 documented as of this encounter
--- OUTSIDE RECORDS SUMMARY | 2024-08-05 02:31 | XMS_ITS | Encounter Summary ---
Author Organization [facility] Address [address] [place] [address] Phone Care Team Providers Care Clinical Systems Analyst Name Role Phone Eusebio Nagy MD Primary Care Provider [phone] To Caballero MD Unavailable [phone] Reason for Referral * Consultation (Routine) - Closed Specialty Diagnoses / Procedures Referred By Contac t Referred To Contact Oncology Diagnoses Iron deficiency anemia, unspecified iron deficiency anemia type Jacinto Aguilra MD [address] [facility] [address] [place] [address] Phone: tel: fax: [facility] [address] [place] [phone] Phone: tel: fax: Referral ID Status Reason Start Date Expiration Date V isits Requested Visits Authorized [id number] Closed Specialty Services Required 10/17/2022 11/16/2023 99 99 Question Answer Please select the performing region: [facility] (All Locations) [[id number]] Please select the performing department: [facility] [id number] [[id number]] Is this referral for Breast Health Multi-Disciplinary Clinic? No Does the patient have a diagnosis of a Head and Neck cancer? No # of visits: 1 Encounter Details Date Type Department Care Team (Late st Contact Info) Description 10/17/2022 Orders Only [facility] [address] [facility] [address] [place] [address] Jacinto Aguilar MD [address] [facility] [address] [place] [address] Iron deficiency anemia, unspecified iron deficiency anemia type (Primary Dx) Social History Tobacco Use Types Packs/Day Years Used Date Smoking Tobacco: Former Cigarettes Q uit: 08/23/2004 Comments No Sex and Gender Information Value Date Recorded Sex Assigned at Not on file Legal Sex Female 11:40 AM PATROL MOTHER Gender Identity Not on file Sexual Orientation Not on file documented as of this encounter Plan of Treatment Scheduled Referrals Name Type Priority Associated Diagnoses Orde r Schedule Ambulatory referral to Oncology Outpatient Referral Routine Iron deficiency anemia, unspecified iron deficiency anemia type Expected: 10/31/2022 (Approximate), Expires: 10/18/2023 documented as of this encounter Visit Diagnoses Diagnosis Iron deficiency anemia, unspecified iron deficiency anemia type- Primary documented in this encounter Care Teams Clinical Systems Analyst Relationship Specialty Start Date End Date Eusebio Nagy MD PCP - General Internal Medicine 12/21/20 To Caballero MD [address] [place] [address] Referring Physician Obstetrics and Gynecology 06/09/21 documented as of this encounter
--- OUTSIDE RECORDS SUMMARY | 2024-08-05 02:31 | XMS_ITS | Encounter Summary ---
Author Organization [facility] Healthcare Address [address] [place] [address] Care Team Providers Care Loaders Name Role Phone Eusebio Nagy MD Primary Care Provider [phone] Caballero MD Unavailable [phone] Encounter Details Date Type Department Care Team (Latest Contact Info) Description 09/23/2021 1:34 PM POLICE DISTRICT SWITCHBOARD OPERATOR - 09/23/2021 11:59 PM POLICE DISTRICT SWITCHBOARD OPERATOR Hospital Encounter [facility] [address] [place] [address] Discharge Disposition: Discharge to home or self care Social History Tobacco Use Types Packs/Day Years Used Date Smoking Tobacco: Former Cigarettes Q uit: 08/23/2004 Comments No Sex and Gender Information Value Date Recorded Sex Assigned at Not on file Legal Sex Female 11:40 AM POLICE DISTRICT SWITCHBOARD OPERATOR Gender Identity Not on file Sexual [...] MR OUTSIDE CONSULT Routine 09/23/2021 1:34 PM POLICE DISTRICT SWITCHBOARD OPERATOR Diagnosis unknown documented in this encounter Results * Neuro CT MR Outside Consult (09/23/2021 1:34 PM POLICE DISTRICT SWITCHBOARD OPERATOR) Anatomical Region Laterality Modality N/A Computed Tomogra phy 09/23/2021 1:50 PM POLICE DISTRICT SWITCHBOARD OPERATOR Impressions 09/23/2021 2:02 PM POLICE DISTRICT SWITCHBOARD OPERATOR 1. ??L2 compression fracture with approximately 20% [...] images may or may not represent the [place] source data set and thus may contain changes that may lower the accuracy of this second-opinion interpretation. Dictated by: Gilda Redd M.D. The radiology attending physician has personally reviewed this study, and had reviewed and/or edited this written report and agrees with it. Electronically signed by: Carlos Gauthier M.D. Narrative 09/23/2021 2:02 PM POLICE DISTRICT SWITCHBOARD OPERATOR EXAMINATION: RADIOLOGY CONSULTATION ON OUTSIDE IMAGING STUDY STUDY INITIALLY PERFORMED: 09/23/2021 at [facility]. TYPE OF STUDY: Multiple CT images of [...] IMAGING STUDY STUDY INITIALLY PERFORMED: 09/23/2021 at [facility]. TYPE OF STUDY: Multiple CT images of [...] images may or may not represent the [place] source data set and thus may contain [...] on filedocumented in this encounter Care Teams Loaders Relationship Specialty Start Date End Date Eusebio Nagy MD PCP - General Internal Medicine 12/21/20 To Caballero MD [address] [place] [address] Referring Physician Obstetrics and Gynecology 06/09/21 documented as of this encounter
--- OUTSIDE RECORDS SUMMARY | 2024-08-05 02:31 | XMS_ITS | Encounter Summary ---
Author Organization [facility] Healthcare Address [address] [place] [address] Care Team Providers Care Commercial Service Technician Name Role Phone Eusebio Nagy MD Primary Care Provider [phone] To Caballero MD Unavailable [phone] Encounter Details Date Type Department Care Team (Latest Contact Info) Description 07/29/2022 5:21 PM NIGHT CLEANER - 07/29/2022 11:59 PM NIGHT CLEANER Hospital Encounter [facility] Discharge Disposition: Discharge to home or self care Social History Tobacco Use Types Packs/Day Years Used Date Smoking Tobacco: Former Cigarettes Q uit: 08/23/2004 Comments No Sex and Gender Information Value Date Recorded Sex Assigned at Not on file Legal Sex Female 11:40 AM NIGHT CLEANER Gender Identity Not on file Sexual Orientation [...] on filedocumented in this encounter Care Teams Commercial Service Technician Relationship Specialty Start Date End Date Eusebio Nagy MD PCP - General Internal Medicine 12/21/20 To Caballero MD [address] [place] [address] Referring Physician Obstetrics and Gynecology 06/09/21 documented as of this encounter
--- OUTSIDE RECORDS SUMMARY | 2024-08-05 02:31 | XMS_ITS | Encounter Summary ---
Author Organization [facility] Group Address [address] [place] [address] Care Team Providers Care Medical Language Specialist Name Role Phone Eusebio Nagy MD Primary Care Provider [phone] Encounter Details Date Type Department Care Team (Late st Contact Info) Description 02/18/2021 Orders Only [facility] [address] [place] [address] [place] [address] [facility] [address] [place] [address] Social History Tobacco Use Types Packs/Day Years Used Date Smoking Tobacco: Former Cigarettes Q uit: 08/23/2004 Comments No Sex and Gender Information Value Date Recorded Sex Assigned at Not on file 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 Sex Female 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 Gender Identity Not on file Sexual Orientation Not on file documented as of this encounter Ordered Prescriptions Prescription Sig Dispense Quantity Refills Last Filled Start Date End Date traMADoL (ULTRAM) 50 mg tablet Take 1 tablet (50 mg total) by mouth every 8 (eight) hours as needed for pain 40 tablet 02/18/2021 2021 documented in this encounter Plan of Treatment Not on file documented as of this encounter Visit Diagnoses Not on filedocumented in this encounter Discontinued Medications Medication Sig Discontinue Reason Start Date End Da te traMADoL (ULTRAM) 50 mg tablet Take 1 tablet (50 mg total) by mouth every 8 (eight) hours as needed for pain Reorder 01/31/2021 02/18/2021 documented as of this encounter Care Teams Medical Language Specialist Relationship Specialty Start Date End Date Eusebio Nagy MD PCP - General Internal Medicine 12/21/20 documented as of this encounter
--- OUTSIDE RECORDS SUMMARY | 2024-08-05 02:31 | XMS_ITS | Encounter Summary ---
Author Organization [facility] Medical Group Address [address] [facility] [address] [place] [id number] Care Team Providers Care Hide Grader Name Role Phone Eusebio Nagy MD Primary Care Provider [phone] Reason for Referral * Diagnostic Imaging (Routine) - Closed Specialty Diagnoses / Procedures Referred By Contac t Referred To Contact Diagnoses Lumbar compression fracture, closed, initial encounter ([facility]) Procedures XR Spine Lumbar [place] [address] [place] [address] Phone: tel: fax: Referral ID Status Reason Start Date Expiration Date Visits Re quested Visits Authorized [id number] Closed 12/28/2020 01/27/2022 1 1 * Diagnostic Imaging (Routine) - Closed Specialty Diagnoses / Procedures Referred By Contac t Referred To Contact Diagnoses Type III fracture of odontoid process, with routine healing, subsequent encounter Procedures XR Spine Cervical 2 [place] [address] [place] [id number] Phone: tel: fax: Referral ID Status Reason Start Date Expiration Date Visits Re quested Visits Authorized [id number] Closed 12/28/2020 01/27/2022 1 1 Reason for Visit * Reason Comments Fracture Encounter Details Date Type Department Care Team (Late st Contact Info) Description 12/28/2020 10:45 AM CDT Office [facility] [address] 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[employer] Gender Identity Not on file Sexual Orientation Not on file documented as of this encounter Last Filed Vital Signs Vital Sign Reading Time Taken Comments Blood Pressure 170/80 12/28/2020 10:53 AM CDT Pulse - - Temperature - - Respiratory Rate - - Oxygen Saturation - - Inhaled Oxygen Concentration - - Weight 58 kg (127 lb 12.8 oz) 12/28/2020 10:53 A M CDT Height 162.6 cm (5' 4 ) 12/28/2020 10:53 AM CDT Body Mass Index 21.94 12/28/2020 10:53 AM CDT documented in this encounter Ordered Prescriptions Prescription Sig Dispense Quantity Refills Last Filled Start Date End Date gabapentin (NEURONTIN) 100 mg capsule Take 1 capsule (100 mg total) by mouth nightly 90 capsule 1 12/28/2020 2 documented in this encounter Progress Notes * Indio Rondon MD - 12/28/2020 10:45 AM CDT Images from the original note were not included. Chief Complaint Patient presents with ??? Cervical Spine - Fracture HPI This is a clinic note for a consultation by the requesting physician Eusebio Nagy MD for a broken neck. Phoebe Hillman is a pleasant 80 y.o. female who presents today with neck pain rated at 8-10/10; she has been wearing a cervical collar for the past 3 months. She also endorses back pain rated at 8-10/10; she had a fall 8 months ago, injuring her back. Her symptoms first started after 09/09/2020 after an injury. Since onset her symptoms have been slowly improving. She describes her symptoms as a sharp pain. The patient has this pain at night. Patient denies problems with hand dexterity, buttoning shirts, fine motor activities. She also admits problems with gait and balance. She deniesbowel or bladder difficulties such as retention or incontinence. She admits any history of osteoporosis. Patient reports quitting smoking about 14 years ago. Pain Assessment Pain Assessment: 0-10 Pain Score: 6 Pain Location: Back (Cervical) Pain Descriptors: Sharp Pain Frequency: Constant/continuous Pain Onset: Ongoing Clinical Progression: Not changed Result of Injury: Yes Multiple Pain Sites: Two Pain 2 Pain Score 2: 4 Pain Location 2: Back (Lumbar) Pain Descriptors 2: Sharp Pain Frequency 2: Constant/continuous Pain Onset 2: Sudden Clinical Progression 2: Gradually worsening Aggravating Factors 2: Standing PAST MEDICAL HISTORY She has a past medical history of COPD (chronic obstructive pulmonary disease) ([facility]), Hypertension, and Thoracic spine fracture ([facility]). She also has no past medical history of Diabetes mellitus ([facility]). PAST SURGICAL HISTORY She has no past surgical history on file. MEDICATIONS She has a current medication list which includes the following prescription(s): albuterol hfa, diclofenac dr, hydrochlorothiazide, ipratropium, metoprolol tartrate, oxycodone-acetaminophen, tiotropium bromide, acetaminophen, amitriptyline, buspirone, cholecalciferol, ferrous sulfate, fluticasone furoate- vilanterol, gabapentin, metoprolol xl, montelukast, oxycodone, pantoprazole dr, ramelteon, andumeclidinium. ALLERGIES She is allergic to hydroxychloroquine, quinapril, and duloxetine. SOCIAL HISTORY She reports that she quit smoking about 16 years ago. She does not have any smokeless tobacco history on file. FAMILY HISTORY Her family history includes No Known Problems in her father and mother. Review of Systems Constitutional: Positive for weight loss. Negative for chills and fever. HENT: Positive for hearing loss. Negative for tinnitus. Sinus trouble Eyes: Negative for blurred vision and redness. Respiratory: Positive for shortness of breath and wheezing. Negative for cough. Cardiovascular: Negative for chest pain and palpitations. Gastrointestinal: Positive for constipation and heartburn. Negative for diarrhea. Loss of appetite, trouble with bowel habits Genitourinary: Positive for frequency. Negative for dysuria. Musculoskeletal: Positive for back pain and neck pain. Trouble with balance and walking, frequent falls Skin: Negative for itching and rash. Neurological: Negative for dizziness, tingling and sensory change. Endo/Heme/Allergies: Does not bruise/bleed easily. Psychiatric/Behavioral: Negative for depression. The patient is not nervous/anxious. Physical Exam Constitutional: General: She is not in acute distress. Appearance: She is well-developed. She is not diaphoretic. HENT: Head: Normocephalic and atraumatic. Eyes: Conjunctiva/sclera: Conjunctivae normal. Neck: Thyroid: No thyromegaly. Trachea: No tracheal deviation. Pulmonary: Effort: Pulmonary effort is normal. No respiratory distress. Skin: General: Skin is warm and dry. Neurological: Mental Status: She is alert and oriented to person, place, and time. Psychiatric: Behavior: Behavior normal. Thought Content: Thought content normal. Judgment: Judgment normal. Ortho Exam REVIEW OF X-RAYS/STUDIES/LABS XR Spine Cervical 2 or 3 Views AP and lateral the cervical spine was interpreted. Demonstrates evidence of diffuse spondylosis throughout the cervical spine. Overall alignment of cervical spine is in lordosis. Patient has a type 3dens fracture that is identified. On flexion-extension there is very minimal translation that is seen. XR Spine Lumbar Complete 4 View AP, lateral of the thoracolumbar spine was interpreted. Demonstrates evidence of compression fracture involving T11 and T12. Kyphotic angulation is above 69??. XR Spine Cervical 2 or 3 Views AP and lateral the cervical spine was interpreted. Demonstrates evidence of diffuse spondylosis throughout the cervical spine. Overall alignment of cervical spine is in lordosis. Patient has a type 3dens fracture that is identified. On flexion-extension there is very minimal translation that is seen. XR Spine Lumbar Complete 4 View AP, lateral of the thoracolumbar spine was interpreted. Demonstrates evidence of compression fracture involving T11 and T12. Kyphotic angulation is above 69??. Radiograph demonstrates T11 and T12 fracture that is seen with kyphosis of 69 degrees Impression: 1. Type III fracture of odontoid process, with routine healing, subsequent encounter 2. Lumbar compression fracture, closed, initial encounter ([facility]) My impression is type 3 fracture of dens there appears to be healing in good alignment. There is minimal translation that is seen. I discussed with the patient that the goal of the surgery could potentially be a fibrous union. Minimal translation demonstrates good stability of the fracture. The patient has been in the brace for over 3 months going on for and for that reason I think that the bracecan be discontinued today. For the lumbar spine, patient a fracture 8 months ago of T11 and T12. There is significant kyphotic angulation but the patient is doing well with minimal discomfort. Plan is to treat this with observation. Surgery to correct his will be quite extensive and with the patient's significant comorbidities unsure if she is a candidate for this. Plan: I went over the history, physical exam, and imaging with Phoebe Hillman and discussed options going forward. Due to her symptoms, the plan and teachings below were discussed. I spent time reviewing the patient's imaging studies with her and explaining how I used these findings and her physical exam findings to arrive at the above stated diagnoses. Additionally, I providedthe patient with printed reading material at today's visit which goes into further detail on her diagnoses. I told her to contact the clinic if she has any questions over the material. We reviewed the patients history, symptoms, exam findings, and imaging today. The typical management of this condition may include lifestyle modification, NSAIDs, physical therapy, oral steroids, epidural injections, neuromodulatory medications, and sometimes pain medications. Based on our discussion today we would like to have the patient initiate our recommendations for continued conservative therapy in the treatment of their condition noted in the assessment section. Patient will be trialed on a medrol dosepak, along with Gabapentin for any neurogenic or radicular symptoms. The appropriateuse, side effects, drug interactions, and typical dosing instructions of any or all medications pres cribed were discussed and explained to the patient, as were possible concerns with the other treatments prescribed. They were instructed to call immediately if any concerns or adverse reactions arise, or symptoms worsen. Because patient has had pain for over 3 months, will refer patient to Dr. Valdivia, pain management, for any further modalities for pain management. Orders Placed This Encounter Procedures ??? XR Spine Cervical 2 or 3 Views ??? XR Spine Lumbar Complete 4 View ??? Ambulatory referral to Pain Management New Medications Ordered This Visit ??? gabapentin (NEURONTIN) 100 mg capsule Sig: Take 1 capsule (100 mg total) by mouth nightly Dispense: 90 capsule Refill: 1 Follow up: Patient will follow up as needed. Scribe Attestation By signing my name below, I, Silvia Miller, attest that this documentation has been prepared under thedirection and in the presence of Dr Indio Rondon MD Electronically signed: Byron Isabel. Provider Attestation I, Dr. Indio Rondon MD personally performed the services described in this documentation. Allmedical record entries made by the scribe were at my direction and in my presence. I have reviewed the chart and agree that the record reflects my personal performance and is accurate and complete. documented in this encounter Plan of Treatment Not on file documented as of this encounter Procedures Procedure Name Priority Date/Time Associated Diagnosis Comments XR SPINE CERVICAL 2 OR 3 VIEWS Schedule Routine, Read Routine (OP Routine) 12/28/2020 11:49 AM CDT Type III fracture of odontoid process, with routine healing, subsequent encounter XR SPINE LUMBAR COMPLETE 4 OR MORE VIEWS Schedule Routine, Read Routine (OP Routine) 12/28/2020 11:46 AM CDT Lumbar compression fracture, closed, initial encounter ([facility]) documented in this encounter Results * XR [...] IMG XR PROCEDURES Sandra l Result * XR Spine Lumbar Complete 4 View (12/28/2020 11:46 AM CDT) Anatomical Region Laterality Modality Spine N/A Radiographic Cesia ging Narrative 12/28/2020 2:01 PM CDT AP, lateral of the thoracolumbar spine was interpreted. ??Demonstrates evidence of compression fracture involving T11 and T12. ??Kyphotic angulation is above 69??. Indio Rondon MD IMG XR PROCEDURES Sandra l Result documented in this encounter Visit Diagnoses Diagnosis Type III fracture of odontoid process, with routine healing, subsequent encounter- Primary Lumbar compression fracture, closed, initial encounter ([facility]) documented in this encounter Historical Medications * This list may reflect changes made after this encounter. tiotropium bromide (SPIRIVA RESPIMAT) 2.5 mcg/actuation inhaler Inhale 2 puffs daily oxyCODONE-acetami nophen (PERCOCET) 10-325 mg per tablet Take 1 tablet by mouth every 12 (twelve) hours 2021 metoprolol tartrate (LOPRESSOR) 25 mg immediate release tablet Take 25 mg by mouth 2 (two) times a day 11/16/2020 11/13/[address] (VOLTAREN) 75 mg EC tablet Take by mouth 01/29/2020 2021 added in this encounter Care Teams Hide Grader Relationship Specialty Start Date End Date Eusebio Nagy MD PCP - General Internal Medicine 12/21/20 documented as of this encounter
--- OUTSIDE RECORDS SUMMARY | 2024-08-05 02:31 | XMS_ITS | Encounter Summary ---
Author Organization [facility] Address [address] [place] [address] Care Team Providers Care Neurophysiologist Name Role Phone Eusebio Nagy MD Primary Care Provider + [phone] Encounter Details Date Type Department Care Team (Late st Contact Info) Description 02/17/2021 Telephone [facility] [address] [facility] [address] [place] [address] [place] [address] [facility] [address] [place] [address] Social History Tobacco Use Types Packs/Day Years Used Date Smoking Tobacco: Former Cigarettes Q uit: 08/23/2004 Comments No Sex and Gender Information Value Date Recorded Sex Assigned at Not on file 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 * Telephone Encounter - Lori Muñoz - 02/17/2021 2:09 PM CDT Patient requesting refill on tramadol, patient have not been able to see the pain management DrPiedad because she has been in the [place] documented in this encounter Plan of Treatment Not on file documented as of this encounter Visit Diagnoses Not on filedocumented in this encounter Care Teams Neurophysiologist Relationship Specialty Start Date End Date Eusebio Nagy MD PCP - General Internal Medicine 12/21/20 documented as of this encounter
--- OUTSIDE RECORDS SUMMARY | 2024-08-05 02:31 | XMS_ITS | Encounter Summary ---
Author Organization [facility] Address [address] [place] [address] Phone Care Team Providers Care Policy And Planning Manager Name Role Phone Jason Wiggins MD Primary Care Provider [phone] Encounter Details Date Type Department Care Team (Late st Contact Info) Description 11/18/2020 Telephone [facility] Scheduling [address] [place] [address] Maddie Smart Social History Tobacco Use Types Packs/Day Years Used Date Smoking Tobacco: Former Cigarettes Q uit: 08/23/2004 Comments No Sex and Gender Information Value Date Recorded Sex Assigned at Not on file 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 She states that no one will drive her to [facility]. Wants us to transfer her care to a physician in [place] - closer to her home. No appt at this time * Telephone Encounter - Maddie Smart - 11/23/2020 3:33 PM CDT Rescheduled pt to Saturday11/28/20 - LMOR asking her to call and confirm date and time. * Telephone Encounter - Kalpana Allen NP - 11/23/2020 9:15 AM CDT Lets do 230 on Saturday if that would work. If she cant do Saturday, I can do Saturday at 3 pm. Sorry I didn't realize I was booked up Saturday! Thank you!! * Telephone Encounter - Maddie Smart - 11/23/2020 8:02 AM CDT This Saturday the spot was already taken unless I can overbook. Do you want me to overbook? * Telephone Encounter - Kalpana Allen NP - 11/21/2020 9:45 AM CDT I can do 1315 this saturday at [facility]? * Telephone Encounter - Maddie Smart - 11/18/2020 12:11 PM CDT Pt called to reschedule her 11/03/20 appt with MR. I did not see anything until December. Is there someplace we can add her in? She is hoping for a afternoon appt. documented in this encounter Plan of Treatment Not on file documented as of this encounter Visit Diagnoses Not on filedocumented in this encounter Care Teams Policy And Planning Manager Relationship Specialty Start Date End Date Jason Wiggins MD [address] [place] [address] PCP - General 08/27/20 12/20/20 documented as of this encounter
--- OUTSIDE RECORDS SUMMARY | 2024-08-05 02:31 | XMS_ITS | Encounter Summary ---
Author Organization [facility] Healthcare Address [address] [place] [address] Care Team Providers Care Abrasive Grader Name Role Phone Eusebio Nagy MD Primary Care Provider [phone] To Caballero MD Unavailable [phone] Encounter Details Date Type Department Care Team (Late st Contact Info) Description 10/17/2022 Telephone [facility] 4 [facility] [address] [place] [address] Sveta Bynum RN Social History Tobacco Use Types Packs/Day Years Used Date Smoking Tobacco: Former Cigarettes Q uit: 08/23/2004 Comments No Sex and Gender Information Value Date Recorded Sex Assigned at Not on file 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 Her call was returned and a VM was left. documented in this encounter Plan of Treatment Not on file documented as of this encounter Visit Diagnoses Not on filedocumented in this encounter Care Teams Abrasive Grader Relationship Specialty Start Date End Date Eusebio Nagy MD PCP - General Internal Medicine 12/21/20 To Caballero MD [address] [place] [address] Referring Physician Obstetrics and Gynecology 06/09/21 documented as of this encounter
--- OUTSIDE RECORDS SUMMARY | 2024-08-05 02:31 | XMS_ITS | Encounter Summary ---
Author Organization [facility] Healthcare Address [address] [place] [address] Care Team Providers Care Instructional Writer Name Role Phone Eusebio Nagy MD Primary Care Provider [phone] To Caballero MD Unavailable [phone] Encounter Details Date Type Department Care Team (Latest Contact Info) Description 09/23/2021 1:27 PM RESEARCH TECHNOLOGIST - 09/23/2021 1:29 PM RESEARCH TECHNOLOGIST Hospital Encounter [facility] [address] [place] [address] Discharge Disposition: Discharge to home or self care Social History Tobacco Use Types Packs/Day Years Used Date Smoking Tobacco: Former Cigarettes Q uit: 08/23/2004 Comments No Sex and Gender Information Value Date Recorded Sex Assigned at Not on file 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 ??L2 compression fracture with approximately 20% [...] images may or may not represent the [place] source data set and thus may contain changes that may lower the accuracy of this second-opinion interpretation. Dictated by: Gilda Redd M.D. The radiology attending physician has personally reviewed this study, and had reviewed and/or edited this written report and agrees with it. Electronically signed by: Carlos Gauthier M.D. Narrative 09/23/2021 2:02 PM RESEARCH TECHNOLOGIST EXAMINATION: RADIOLOGY CONSULTATION ON OUTSIDE IMAGING STUDY STUDY INITIALLY PERFORMED: 09/23/2021 at [facility]. TYPE OF STUDY: Multiple CT [...] IMAGING STUDY STUDY INITIALLY PERFORMED: 09/23/2021 at [facility]. TYPE OF STUDY: Multiple CT [...] images may or may not represent the [place] source data set and thus may contain changes that may lower the accuracy of this second-opinion interpretation. Dictated by: Gilda Redd M.D. The radiology attending physician has personally reviewed this study, and had reviewed and/or edited this written report and agrees with it. Electronically signed by: Carlos Guathier M.D. Elo Martinez MD IMG CT PROCEDURES Fi nal Result documented in this encounter Visit Diagnoses Not on filedocumented in this encounter Care Teams Instructional Writer Relationship Specialty Start Date End Date Eusebio Nagy MD PCP - General Internal Medicine 12/21/20 To Caballero MD [address] [place] [address] Referring Physician Obstetrics and Gynecology 06/09/21 documented as of this encounter
--- OUTSIDE RECORDS SUMMARY | 2024-08-05 02:31 | XMS_ITS | Encounter Summary ---
Author Organization [facility] Address [address] [facility] [address] [place] [address] Phone Care Team Providers Care Company Controller Name Role Phone Eusebio Nagy MD Primary Care Provider [phone] To Caballero MD Unavailable [phone] Encounter Details Date Type Department Care Team (Late st Contact Info) Description 06/13/2021 Orders Only [facility] Obstetrics and Gynecology [address] [facility] 13th [place] [address] [place] [address] Altaf Marques MD [address] [facility] [phone] [place] [address] Social History Tobacco Use Types Packs/Day Years Used Date Smoking Tobacco: Former Cigarettes Q uit: 08/23/2004 Comments No Sex and Gender Information Value Date Recorded Sex Assigned at Not on file Legal Sex Female 11:40 AM 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 [place] [address] Note to Patients: ??This report may contain a detailed description of human tissue sent by a health care provider to the laboratory for pathologic evaluation. ??The content of this report is essential for diagnosis and may provide important critical findings. ??This information may be unfamiliar to patients to review without a medical professional present. ?? It is advised that the patient review this report in the presence of a health care provider who can answer questions and explain the details. Final Report ?Patient Name: RORY HILLMAN Address: [address] [place] [address] Service: [facility] ??[place], [place] ??[address] Location: Pain Mangmnt Collected: 06/13/2021 Gender: F Received 07/14/2021 : 1940 (Age: 80) [facility] #: [id number] Accessioned: 07/26/2021 ?? Patient Type: [facility] EP ANCILLARY ?? Physician(s): Altaf Marques M.D. ?? Specimen(s): A: FFPE FFPE [id number] block ([id number] a1-27) [id number] Immunoglobulin Heavy Chain (IGH), B cell clonality Reported: 07/26/2021 FFPE collected 06/13/2021, [id number], Block A1 Result: Clonal Primer Set IGHVClonal Rearrangements IGHVV genes IGHVJ genes % Total Reads FR2 Rearrangement 1 IGHV3-30_19 IGHJ6_02 3.03 FR3 Rearrangement 2 IGHV3-9_02 IGHJ3_02 2.96 Interpretation Clonal IGHV gene rearrangement(s) detected. The IGHV Variable (V) and Joining (J) gene segments and percentage of total sequencing reads are reported in the table above. The cutoff for detection of a clonal rearrangement is =2.5% of total sequencing reads. These results are consistent with a clonal proliferation of B lymphoid cells, which may be indicative of a B lymphoid malignancy, but may be present in non-neoplastic inflammatory processes. Clinical correlation is recommended. Clinical Significance This assay sequences and determines the relative proportions of IGHV gene rearrangements. During B lymphocyte development, immunoglobulin gene segments (VDJ) undergo recombination and targeted mutation by cellular enzymes to generate unique IGHV rearrangement sequences for individual cells and their progeny [1]. Reactive inflammatory processes result in polyclonal B lymphocyte populations with no dominant IGHV clonal sequence. In contrast, neoplastic B cells frequently harbor a clonal IGHV rearrangement that can be detected as the dominant IGHV sequence in a background of polyclonal sequences. In the appropriate clinical and pathological setting, detection of a prominent clonal IGHV rearrangement sequence may indicate the presence of a B cell neoplasm (leukemia, lymphoma, or plasma cell dyscrasia). ??IGHV clonal sequences can be compared in different specimens from the same patient to determine if the B cell populations are clonally related, i.e., from the same parental cell and thus potentially from the same neoplasm [2]. Method Extracted genomic DNA is analyzed by a laboratory-developed test using the LymphCopperfasten? ? ? IGH FR2/3 Assay - S5/PGM(tm) reagents from [employer]. Massively parallel ( Next-generation ) sequencing of libraries is performed on a [employer] S5(tm) sequencer. IGH rearrangement sequences are detected and relative proportion determined as a percentage of total sequencing reads using the LymphCard Capture Servicesack? ? ? Software - Bunkspeed/[employer](tm) Version 2.4.5. Limitations: The assay primers cannot detect 100% of possible IGHV rearrangements. Low DNA input, DNA degradation, and/or interfering substances may cause failure to detect an IGH rearrangement by this assay. FDA Comment This test was developed and its performance characteristics determined by this [facility]. It has not been cleared or approved by the U.S. Food and Drug Administration. FDA does not require this test to go through premarket FDA review. This test is used for clinical purposes. It should not be regarded as investigational or for research. This laboratory is certified under the Clinical Laboratory Improvement Amendments (CLIA) as qualified to perform high complexity clinical laboratory testing. Literature References 1. Deirdre To. Somatic generation of antibody diversity. Nature. 1983;302(9978):575-821. 2. Noemi Walker, Orin Chance, et al. The evolution of clonality testing in the diagnosis and monitoring of hematological malignancies. Therapeutic advances in hematology. 2014;5(2):35-47. ?? Sonam Mosley MD, PhD ??Report Electronically Reviewed and Signed Out By ??Sonam Mosley MD, PhD ??07/26/2021 15:10:41 This test was performed at: [facility], [facility]#[id number], Dr. Eliseo Moscoso M.D., [place], [address], [place] Altaf Marques MD LAB GENETIC TESTING Final Resu lt documented in this encounter Visit Diagnoses Not on filedocumented in this encounter Care Teams Company Controller Relationship Specialty Start Date End Date Eusebio Nagy MD PCP - General Internal Medicine 12/21/20 To Caballero MD [address] [place] [address] Referring Physician Obstetrics and Gynecology 06/09/21 documented as of this encounter
--- OUTSIDE RECORDS SUMMARY | 2024-08-05 02:31 | XMS_ITS | Encounter Summary ---
Author Organization [facility] Address [address] [facility] [address] [place] [address] Care Team Providers Care Electronic Coils Supervisor Name Role Phone Eusebio Nagy MD Primary Care Provider [phone] Reason for Visit * Diagnostic Imaging (Routine) - Closed Specialty Diagnoses / Procedures Referred By Contac t Referred To Contact Diagnoses Lumbar compression fracture, closed, initial encounter (HCC) Procedures XR Spine Lumbar Complete 4 View Indio Rondon MD [address] [place] [address] Phone: tel: fax: Referral ID Status Reason Start Date Expiration Date Visits Re quested Visits Authorized [id number] Closed 12/28/2020 01/27/2022 1 1 Encounter Details Date Type Department Care Team (Latest Contact Info) Description 12/28/2020 11:29 AM CDT - 12/28/2020 11:59 PM CDT Hospital Encounter [facility] [address] [address] Discharge Disposition: Discharge to home or self care Social History Tobacco Use Types Packs/Day Years Used Date Smoking Tobacco: Former Cigarettes Q uit: 08/23/2004 Comments No Sex and Gender Information Value Date Recorded Sex Assigned at Not on file Legal Sex Female 11:40 AM 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) documented in this encounter Results * XR Spine Lumbar Complete 4 View (12/28/2020 11:46 AM CDT) Anatomical Region Laterality Modality Spine N/A Radiographic Cesia ging Narrative 12/28/2020 2:01 PM CDT AP, lateral of the thoracolumbar spine was interpreted. ??Demonstrates evidence of compression fracture involving T11 and T12. ??Kyphotic angulation is above 69??. us Indio Rondon MD IMG XR PROCEDURES Sandra l Result documented in this encounter Visit Diagnoses Not on filedocumented in this encounter Care Teams Electronic Coils Supervisor Relationship Specialty Start Date End Date Eusebio Nagy MD PCP - General Internal Medicine 12/21/20 documented as of this encounter
--- OUTSIDE RECORDS SUMMARY | 2024-08-05 02:31 | XMS_ITS | Encounter Summary ---
Author Organization [facility] Healthcare Address [address] [place] [address] Care Team Providers Care Bench Carpenter Name Role Phone Eusebio Nagy MD Primary Care Provider [phone] To Caballero MD Unavailable [phone] Jacinto Aguilar MD Unavailable Encounter Details Date Type Department Care Team (Late st Contact Info) Description 11/08/2022 2:00 PM CDT Lab [facility] [address] [facility] [address] [place] [id number] Iron deficiency anemia, unspecified iron deficiency anemia type (Primary Dx) Social History Tobacco Use Types Packs/Day Years Used Date Smoking Tobacco: Former Cigarettes Q uit: 08/23/2004 Comments No Sex and Gender Information Value Date Recorded Sex Assigned at Not on file Legal Sex Female 11:40 AM 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 Gender Identity Not on file Sexual Orientation Not on file documented as of this encounter Plan of Treatment Not on file documented as of this encounter Procedures Procedure Name Priority Date/Time Associated Diagnosis Comments DIFFERENTIAL AUTO Routine 11/08/2022 1:4 0 PM CDT Iron deficiency anemia, unspecified iron deficiency anemia type IRON PROFILE W/ IBC Routine 11/08/2022 1 :40 PM CDT Iron deficiency anemia, unspecified iron deficiency anemia type CBC WITH AUTO DIFFERENTIAL Routine 11/08/2022 1:40 PM CDT Iron deficiency anemia, unspecified iron deficiency anemia type FERRITIN Routine 11/08/2022 1:40 PM CDT Iron deficiency anemia, unspecified iron deficiency anemia type documented in this encounter Results * Differential, auto (11/08/2022 1:40 PM CDT) Neutrophil abs 3.1 1.7 - 6.5 K/cumm [facility] ([place] Imm gran abs 0.0 0.0 - 0.1 K/cumm [facility] Lymphocyte abs 2.0 0.8 - 3.3 K/cumm [facility] ([place]) Monocyte abs 0.7 0.2 - 0.8 K/cumm [facility] ([place]) Eosinophil abs 0.1 0.0 - 0.5 K/cumm [facility] ([place]) Basophil abs 0.0 0.0 - 0.1 K/cumm [facility] ([place]) Neutrophil pct 52.5 % [facility] ([place]) Comment: Interpretive Data Percent cell count reference ranges are not reported, since discordance with absolute values may lead to misinterpretation of CBC data. Current Interpretive Data was last revised on 2022. Imm gran pct 0.2 % [facility] ([place]) Comment: Interpretive Data Percent cell count reference ranges are not reported, since discordance with absolute values may lead to misinterpretation of CBC data. Current Interpretive Data was last revised on 2022. Lymphocyte pct 33.9 % [facility] ([place] Comment: Interpretive Data Percent cell count reference ranges are not reported, since discordance with absolute values may lead to misinterpretation of CBC data. Current Interpretive Data was last revised on 2022. Monocyte pct 11.6 % [facility] ([place]) Comment: Interpretive Data Percent cell count reference ranges are not reported, since discordance with absolute values may lead to misinterpretation of CBC data. Current Interpretive Data was last revised on 2022. Eosinophil pct 1.6 % [facility] ([place] Comment: Interpretive Data Percent cell count reference ranges are not reported, since discordance with absolute values may lead to misinterpretation of CBC data. Current Interpretive Data was last revised on 2022. Basophil pct 0.2 % [facility] ([place]) Comment: Interpretive Data Percent cell count reference ranges are not reported, since discordance with absolute values may lead to misinterpretation of CBC data. Current Interpretive Data was last revised on 2022. Blood 11/08/2022 1:40 PM CDT 11/08/2022 1:44 PM CDT Giuseppe Montelongo MD LAB BLOOD ORDERABLES Final Re sult [facility] ([place]) [address] [facility] [place] [address] * (ABNORMAL) CBC with auto differential (11/08/2022 1:40 PM CDT) WBC 5.8 3.8 - 9.9 K/cumm [facility] ([place]) Hgb 10.3(L) 11.9 - 15.5 g/dL [facility] ([place]) Hct 32.6(L) 35.6 - 45.5 % [facility]) Plt 233 150 - 400 K/cumm [facility] ([place]) MPV 8.5(L) 9.1 - 12.3 fL [facility]) RBC 3.64(L) 3.90 - 5.20 M/cumm [facility] ([place]) MCV 89.6 81.3 - 96.4 fL [facility] ([place] MCH 28.3 27.1 - 33.3 pg [facility]) MCHC 31.6(L) 32.3 - 35.7 g/dL [facility] ([place]) RDW CV 12.5 11.1 - 14.9 % [facility] RDW SD 41.6 35.7 - 48.1 fL [facility]) NRBC abs Not Measured 0.00 - 0.01 K/cumm [facility] ([place]) Blood 11/08/2022 1:40 PM CDT 11/08/2022 1:44 PM CDT Giuseppe Montelongo MD LAB BLOOD ORDERABLES Final Re sult [facility] ([place]) [address] [place] [address] * (ABNORMAL) Ferritin (11/08/2022 1:40 PM CDT) Ferritin 9(L) 15 - 150 ng/mL [facility] ([place]) Blood 11/08/2022 1:40 PM CDT 11/08/2022 2:30 PM CDT Giuseppe Montelongo MD LAB BLOOD ORDERABLES Final Re sult Performing Organization Address [facility] Co de Phone Number [facility] ([place]) [address] [facility] [place] [address] * (ABNORMAL) Iron profile w/ IBC (11/08/2022 1:40 PM CDT) Iron 25(L) 35 - 145 mcg/dL [facility] ([place]) TIBC 417(H) 250 - 400 mcg/dL [facility] ([place]) Transferrin saturation 6(L) 20 - 50 % [facility] ([place]) Blood 11/08/2022 1:40 PM CDT 11/08/2022 2:30 PM CDT Giuseppe Montelongo MD LAB BLOOD ORDERABLES Final Re sult Performing Organization Address City/[facility]/ZIP Co de Phone Number [facility] ([place]) [address] [facility] [place] [address] documented in this encounter Visit Diagnoses Diagnosis Iron deficiency anemia, unspecified iron deficiency anemia type- Primary documented in this encounter Care Teams Bench Carpenter Relationship Specialty Start Date End Date Eusebio Nagy MD PCP - General Internal Medicine 12/21/20 To Caballero MD [address] [place] [address] Referring Physician Obstetrics and Gynecology 06/09/21 [place] [address] [place] [address] Internal Medicine 11/08/22 documented as of this encounter
--- OUTSIDE RECORDS SUMMARY | 2024-08-05 02:31 | XMS_ITS | Encounter Summary ---
Author Organization [facility] Healthcare Address [address] [place] [address] Care Team Providers Care Hand Crown Pouncer Name Role Phone Eusebio Nagy MD Primary Care Provider [phone] To Caballero MD Unavailable [phone] Reason for Referral * Diagnostic Imaging (Routine) - Closed Specialty Diagnoses / Procedures Referred By Contac t Referred To Contact Diagnoses Lumbar compression fracture, closed, initial encounter (HCC) Procedures XR Scoliosis Ap and Lateral Jeffrey Dow MD [address] [place] [address] Phone: tel: fax: [facility] [address] [place] [address] Phone: tel: Referral ID Status Reason Start Date Expiration Date Visits Re quested Visits Authorized [id number] Closed 11/07/2021 12/07/2022 1 1 Reason for Visit * Diagnostic Imaging (Routine) - Closed Specialty Diagnoses / Procedures Referred By Contac t Referred To Contact Diagnoses Lumbar compression fracture, closed, initial encounter (HCC) Procedures XR Scoliosis Ap and Lateral Jeffrey Dow MD [address] [place] [address] Phone: tel: fax: [facility] [address] [facility] [address] [place] [address] Phone: tel: Referral ID Status Reason Start Date Expiration Date Visits Re quested Visits Authorized [id number] Closed 11/07/2021 12/07/2022 1 1 Encounter Details Date Type Department Care Team (Latest Contact Info) Description 11/13/2021 2:57 PM CDT - 11/13/2021 3:29 PM CDT Hospital Encounter [facility] Rad[facility] [address] [facility] [address] [place] [address] Jeffrey Dow MD [address] [facility] [address] [place] [address] Lumbar compression fracture, closed, initial encounter (HCC) Discharge Disposition: Discharge to home or self care Social History Tobacco Use Types Packs/Day Years Used Date Smoking Tobacco: Former Cigarettes Q uit: 08/23/2004 Comments No Sex and Gender Information Value Date Recorded Sex Assigned at Not on file Legal Sex Female 11:40 AM CONVENTIONS ASSISTANT Gender Identity Not on file Sexual Orientation [...] (TOPROL-XL) 100 mg 24 hr tablet 10/05/2021 tiotropium bromide (SPIRIVA RESPIMAT) 2.5 mcg/actuation inhaler Inhale 2 puffs daily documented as of this encounter Discharge Disposition Disposition Code Departure Means Destination Discharge to home or self care documented in this encounter Plan of Treatment Not on file documented as of this encounter Procedures Procedure Name Priority Date/Time Associated Diagnosis Comments XR SCOLIOSIS AP LAT Schedule Routine, Read Routine (OP Routine) 11/13/2021 3:23 PM CDT Lumbar compression fracture, closed, initial encounter ([facility]) documented in this encounter Results * XR Scoliosis Ap [...] Diagnosis Lumbar compression fracture, closed, initial encounter (HCC) documented in this encounter Care Teams Hand Crown Pouncer Relationship Specialty Start Date End Date Eusebio Nagy MD PCP - General Internal Medicine 12/21/20 To Caballero MD [address] [place] [address] Referring Physician Obstetrics and Gynecology 06/09/21 documented as of this encounter
--- OUTSIDE RECORDS SUMMARY | 2024-08-05 02:31 | XMS_ITS | Encounter Summary ---
Author Organization [facility] Address [address] [place] [address] Care Team Providers Care Mail Processor Name Role Phone Eusebio Nagy MD Primary Care Provider [phone] Reason for Visit * Reason Onset Date Comments Medication Problem 01/09/2021 Encounter Details Date Type Department Care Team (Late st Contact Info) Description 01/09/2021 Telephone [facility] [address] [address] [place] [address] [address] Medication Problem Social History Tobacco Use Types Packs/Day Years Used Date Smoking Tobacco: Former Cigarettes Q uit: 08/23/2004 Comments No Sex and Gender Information Value Date Recorded Sex Assigned at Not on file Legal Sex Female 11:40 AM 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 * Telephone Encounter - Indio Rondon MD - 01/09/2021 6:56 PM CDT Sent her tramadol until she see Dr. Valdivia. * Telephone Encounter - Bere Jacinto PA - 01/09/2021 6:29 PM CDT She was referred to Dr. Valdivia at last visit, has she scheduled an appointment with him yet? * Telephone Encounter - Scott Cornejo - 01/09/2021 1:35 PM CDT Patient says that gabapentin isn't helping her pain. She says she feels like not even taking it. Medicap - Joanna Ivey documented in this encounter Plan of Treatment Not on file documented as of this encounter Visit Diagnoses Not on filedocumented in this encounter Care Teams Mail Processor Relationship Specialty Start Date End Date Eusebio Nagy MD PCP - General Internal Medicine 12/21/20 documented as of this encounter
--- OUTSIDE RECORDS SUMMARY | 2024-08-05 02:31 | XMS_ITS | Encounter Summary ---
Author Organization [facility] Address [address] [place] [address] Phone Care Team Providers Care Development Associate Name Role Phone Eusebio Nagy MD Primary Care Provider To Caballero MD Unavailable [phone] Encounter Details Date Type Department Care Team (Late st Contact Info) Description 06/13/2021 Orders Only [facility]RE[facility] [address] [place] [address] Altaf Marques MD [address] [facility] [id number] [place], [place] [id number] Vaginal lesion Social History Tobacco Use Types Packs/Day Years Used Date Smoking Tobacco: Former Cigarettes Q uit: 08/23/2004 Comments No Sex and Gender Information Value Date Recorded Sex Assigned at Not on file Legal Sex Female 11:40 AM NIGHT GUARD Gender Identity Not on file Sexual Orientation Not on file documented as of this encounter Plan of Treatment Not on file documented as of this encounter Procedures Procedure Name Priority Date/Time Associated Diagnosis Comments CYTOGENETICS AND GENOMICS Routine 06/13/2021 11:16 AM NIGHT GUARD SURGICAL PATHOLOGY Routine 06/13/2021 11 :16 AM NIGHT GUARD Vaginal lesion documented in this encounter Results * Cytogenetics/Genomics (06/13/2021 11:16 AM NIGHT GUARD) Miscellaneous 06/13/2021 11: 16 AM NIGHT GUARD 07/13/2021 10:55 AM NIGHT GUARD Narrative 07/20/2021 11:04 AM NIGHT GUARD [facility] results best viewed via link to PDF [facility] Department of Pathol [address] [place] [address] ? Patient Information Name: ??PHOEBE HILLMANPiedad Gender: ??F : ??1940 (Age: 80) Tissue: ??FFPE FISH Visit Information Hospital #: ? [id number] Facility: ? [facility] Service: ? WUPT Location: ? UNKNOWN Patient Type: ? WUPT-EPIC ? Specimen Information: Culture #: ??[id number] Date Collected: ??06/13/2021 Date Accessioned: ??07/13/2021 Date Ordered: ??07/13/2021 Physician(s): ? Altaf Marques M.D. ? Processing: ? FFPE FISH ??Vulva, labia, #1 biopsy Indication: ? The patient is a 80-year-old woman. The submitted history is vaginal lesion. Slides are from vulvar biopsies processed at [place], [place] June 2021. Specimen Quality: ? Adequate FISH: ??FFPE CLINICAL REPORT PARAFFIN EMBEDDED FISH ?? Fluorescence In-situ hybridization (FISH) Results: Specimen # [id number] Outside Case # [id number] NEGATIVE - ?FISH result for MYC gene rearrangement NEGATIVE - ?FISH result for IGH-BCL2 translocation NEGATIVE - ?FISH result for BCL6 gene rearrangement NEGATIVE - ?FISH result for IgH-CCND1 translocation nuc tatyana(MYCx1)[88/300]/(MYCx2)[192/300] nuc tatyana(IGHx1~2,BCL2x1)[92/300]/(IGH,BCL2)x2[152/300] nuc tatyana(BCL6x1)[85/300]/(BCL6x2)[199/300] nuc tatyana(CCND1,IGH)x2[156/300] Comments MYC ??FISH FISH was performed utilizing a commercial MYC (8q24) break-apart probe set ([employer], [place], [place]). ??In this particular case, although 1% of the 300 interphase cells examined utilizing a manual scoring system contained a split of SpectrumOrange and SpectrumGreen signals, this finding was not detected in a significant number of cells to meet the criteria for a positive result. Therefore, there is no evidence for a MYC-containing chromosomal rearrangement. A loss of MYC was seen in 29.33% of cells, the significance of which, if any, is unclear. ?? The above test was developed and its performance characteristics determined by [facility]. It has not been cleared or approved by the FDA. The laboratory is regulated under CLIA as qualified to perform high- complexity testing. This test is used for clinical purposes. It should not be regarded as investigational or for research. IGH-BCL2 ??FISH FISH was performed utilizing a commercial IGH-BCL2 dual fusion probe set ([employer], [place], [place]). ??In this particular case, no dual-fused signals were found in 300 interphase cells examined utilizing a manual scoring system examined utilizing a manual scoring system, indicating that there is no t(14;18) translocation involving these two genes. ??However, a loss of BCL2, was noted in 30.67%, the clinical significance of which, if any, is unclear. ?? The above test was developed and its performance characteristics determined by [facility]. It has not been cleared or approved by the FDA. The laboratory is regulated under CLIA as qualified to perform high- complexity testing. This test is used for clinical purposes. It should not be regarded as investigational or for research. BCL6 ??FISH FISH was performed utilizing a commercial BCL6 (3q27) break-apart probe set ([employer], [place], [place]). ??In this particular case, there was no split of SpectrumOrange and SpectrumGreen signals in 300 interphase nuclei examined utilizing a manual scoring system and therefore, no evidence for a BCL6-containing chromosomal rearrangement. A loss of BCL6 was seen in 28.33%, the significance of which, if any, is unclear. The above test was developed and its performance characteristics determined by [facility]. It has not been cleared or approved by the FDA. The laboratory is regulated under CLIA as qualified to perform high- complexity testing. This test is used for clinical purposes. It should not be regarded as investigational or for research. IGH-CCND1 FISH FISH was performed utilizing a commercial IgH-CCND1 dual fusion probe set ([employer], [place], [place]). ??In this particular case, no dual-fused signals were found in 300 interphase nuclei examined utilizing a manual scoring system, suggesting that there is no t(11;14) translocation involving these two genes. ?? The above test was developed and its performance characteristics determined by [facility]. It has not been cleared or approved by the FDA. The laboratory is regulated under CLIA as qualified to perform high- complexity testing. This test is used for clinical purposes. It should not be regarded as investigational or for research. Note: ??The interphase nuclei analyzed in this case were obtained throughout the tissue biopsy as the entire specimen/block received contained tumor cells and no specific areas within the sample were to be excluded as designated on a marked H&E stained slide, provided by the ordering pathologist. ? Report Electronically Reviewed and Signed Out By Lalo Aldana M.D. ??Date Reported: ??07/20/2021 ?? Altaf Marques MD LAB GENETIC TESTING Final Resu lt * Surgical pathology (06/13/2021 11:16 AM NIGHT GUARD) Tissue (Miscellaneous) 06/13/2021 11:16 AM NIGHT GUARD 06/13/2021 11:16 AM NIGHT GUARD Narrative [facility] - 07/27/2021 10:56 AM NIGHT GUARD EPIC results best viewed via link to PDF [facility] Pathology Consult Service [address], [address], [place] [address] Note to Patients: This report [...] SURGICAL PATHOLOGY REPORT * Consult Report * [facility] is providing an additional review of previously collected tissue. FINAL WITH ADDENDUM Patient Name: ??PHOEBE HILLMAN Address: ??[address], ?[place], [place] ??[address] Gender: ??F : ??1940 (Age: 80) Hospital #: ??[id number] Patient Type: ??WU Location: ??CAM05 Taken: ??06/13/2021 Received: ??06/13/2021 Accessioned: ??06/15/2021 Reported: ??07/27/2021 Physician(s): Altaf Marques M.D. [facility] Department of Pathology [address] [place] [address] P: [phone] F: [phone] Diagnosis: Consult material received from [place], [place] (OSC [id number]; 06/05/2021). A. Vulva, labia, #1, biopsy ? [...] procedure, with appropriate controls) are performed at [facility] for further characterization. The inflammatory infiltrate is [...] is negative. Fluorescent in situ hybridization studies ([id number]) for MYC and BCL6 gene rearrangements, IGH-BCL2 translocation and IgH-CCND1 translocation are negative (see addendum). Fernanda Abraham MD History: The patient is a 80-year-old woman. The submitted history is vaginal lesion. Slides are from vulvar biopsies processed at [place], [place] June 2021. Materials Received: Received for review are four slides labeled [id number], accompanied by the corresponding pathology report. The materials originated from [place], [place]. Additionally received for review on 07/04/2021 are two blocks (A1 & B1) labeled [id number], from [facility] Department of Pathology, [place], [place]. Selected slide(s) may be digitally scanned for our files, and all material is returned to the referring institution, along with a copy of our final report. Addenda/Procedures Addendum Ordered: ??07/20/2021 ??Status: ??Signed Out ? Addendum Complete: ??07/20/2021 By: ??Dakota Patrick M.D. Addendum Signed Out: ??08/07/2021 ?? Addendum Comment 3 stained slides received on 07/20/2021 from [facility]. By this signature, I attest that the [...] see below for FISH testing performed by [facility] and reported on 07/20/21. By this signature, I attest that the above diagnosis is based upon my personal examination of the slides(and/or other material indicated in the diagnosis). ?? Dakota Patrick M.D. ??Report Electronically Reviewed and Signed Out By ??Dakota Patrick M.D. ??09/21/2021 09:47:51 ? The MD-IgH test was performed at [facility], Department of Surgical Pathology, [address] [facility] [place] [facility] ??[address]. The TATYANA-SNEHAL test was performed by [facility], [address] [place] [address]. Any testing required for diagnostic purposes was performed in the Department of Pathology and Immunology at [facility], [address] [place] [address] CLIA # [id number] The performance characteristics of the testing cited in this report (if any) were determined by the ??[facility] Department of Pathology and Immunology [facility], as part of an ongoing water quality analyst program and in compliance with federally mandated [...] and the performance characteristics determined by the [facility], [facility] Department of Pathology and Immunology. ??It has not been cleared or approved by the U.S. Food and Drug Administration. ??Any test designated as LDT was developed and its performance characteristics determined by [facility]. It has not been cleared or approved by the FDA. This test is used for clinical purposes and should not be regarded as investigational or for research. Report images and/or scanned reports, if included, only viewable in PDF version of report. Altaf Marques MD LAB PATHOLOGY ORDERABLES Final Result [facility] [address] [address] documented in this encounter Visit Diagnoses Diagnosis Vaginal lesion Other specified noninflammatory disorder of vagina documented in this encounter Care Teams Development Associate Relationship Specialty Start Date End Date Eusebio Nagy MD PCP - General Internal Medicine 12/21/20 To Caballero MD [address] [place] [address] Referring Physician Obstetrics and Gynecology 06/09/21 documented as of this encounter
--- OUTSIDE RECORDS SUMMARY | 2024-08-05 02:31 | XMS_ITS | Encounter Summary ---
Author Organization [facility] Address [address] [place] [address] Phone Care Team Providers Care Experimental Mechanic Electrical Name Role Phone Jason Wiggins MD Primary Care Provider [phone] Reason for Visit * Reason Onset Date Comments Follow-up 09/28/2020 Encounter Details Date Type Department Care Team (Late st Contact Info) Description 09/28/2020 Telephone [facility] Surgery [address] [facility] 8th [place] [address] [place] [address] Phoebe Norton RMA Follow-up Social History Tobacco Use Types Packs/Day Years Used Date Smoking Tobacco: Former Cigarettes Q uit: 08/23/2004 Comments No Sex and Gender Information Value Date Recorded Sex Assigned at Not on file Legal Sex Female 11:40 AM EMT PARAMEDIC Gender Identity Not on file Sexual Orientation Not on file documented as of this encounter Miscellaneous Notes * Telephone Encounter - Phoebe Norton MA - 09/28/2020 9:25 AM CST Francisca with Home Health is calling from [phone] asking who will follow for Home Health, orders were written by the [facility]. Patient will follow with orthopaedics and I notified Francisca of that. SAIMA Hawkins PARAMEDIC documented in this encounter Plan of Treatment Not on file documented as of this encounter Visit Diagnoses Not on filedocumented in this encounter Care Teams Experimental Mechanic Electrical Relationship Specialty [place] [address] [place], [place] [id number] PCP - General 08/27/20 12/20/20 documented as of this encounter
--- OUTSIDE RECORDS SUMMARY | 2024-08-05 02:32 | XMS_ITS | Encounter Summary ---
Author Organization [facility] Address [address] [place] [address] Phone Care Team Providers Care Full Stack Developer Name Role Phone Jason Wiggins MD Primary Care Provider [phone] Sonia Pope RN Unavailable [phone] Encounter Details Date Type Department Care Team (Late st Contact Info) Description 08/31/2020 Telephone [facility] [place] [address] [address] [place] [id number] Esperanza Kaur RN Social History Tobacco Use Types Packs/Day Years Used Date Smoking Tobacco: Former Cigarettes Q uit: 08/23/2004 Comments Unknown Sex and Gender Information Value Date Recorded Sex Assigned at Not on file Legal Sex Female 11:40 AM LEAD DATA ENTRY OPERATOR Gender Identity Not on file Sexual Orientation Not on file documented as of this encounter Miscellaneous Notes * Telephone Encounter - Esperanza Kaur RN - 08/31/2020 10:00 AM LEAD DATA ENTRY OPERATOR [facility] HH called to arrange SOC. Patient refused HH services. Debby BO is notified and aware. DATA ENTRY OPERATOR documented in this encounter Plan of Treatment Not on file documented as of this encounter Visit Diagnoses Not on filedocumented in this encounter Care Teams Full Stack Developer Relationship Specialty Start Date End Date Jason Wiggins MD [address] [place] [address] PCP - General 08/27/20 12/20/20 Sonia Pope, RN [address] [facility] [address] [place] [address] SHOP Outpatient Farmworker [place] 08/31/20 09/04/20 documented as of this encounter
--- OUTSIDE RECORDS SUMMARY | 2024-08-05 02:32 | XMS_ITS | Encounter Summary ---
Author Organization [facility] Address [address] [place] [address] Care Team Providers Care Hot Bread Baker Name Role Phone Jason Wiggins MD Primary Care Provider [phone] Sonia Pope RN Unavailable [phone] Reason for Visit * Reason Comments Unsuccessful Phone Call [facility] for patien t requesting call back. Will try again tomorrow. Encounter Details Date Type Department Care Team (Late st Contact Info) Description 08/31/2020 SHOP/CHAP Initial Outreach [facility] OP CASE MANAGEMENT [address] [place] [address] Sonia Pope, RN [address] [facility] [address] [place], [place] [id number] Social History Tobacco Use Types Packs/Day Years Used Date Smoking Tobacco: Former Cigarettes Q uit: 08/23/2004 Comments Unknown Sex and Gender Information Value Date Recorded Sex Assigned at Not on file Legal Sex Female 11:40 AM INSTRUCTOR PROGRAMMABLE CONTROLLERS Gender Identity Not on file Sexual Orientation Not on file documented as of this encounter Plan of Treatment Not on file documented as of this encounter Visit Diagnoses Not on filedocumented in this encounter Care Teams Hot Bread Baker Relationship Specialty Start Date End Date Jason Wiggins MD [address] [facility] [address] [place] [address] PCP - General 08/27/20 12/20/20 Sonia Pope, RN [address] [facility] [address] [place] [address] SHOP Outpatient Event Promoter 08/31/20 09/04/20 documented as of this encounter
--- OUTSIDE RECORDS SUMMARY | 2024-08-05 02:32 | XMS_ITS | Encounter Summary ---
Author Organization [facility] Address [address] [place] [address] Care Team Providers Care Hardness Inspector Name Role Phone Jason Wiggins MD Primary Care Provider [phone] Reason for Visit * Reason Comments Unsuccessful Phone Call 3 Encounter Details Date Type Department Care Team (Late st Contact Info) Description 09/05/2020 SHOP/CHAP Initial Outreach [facility] OP CASE MANAGEMENT [address] [place] [address] Sonia Pope, JUAN [address] [id number] Social History Tobacco Use Types Packs/Day Years Used Date Smoking Tobacco: Former Cigarettes Q uit: 08/23/2004 Comments Unknown Sex and Gender Information Value Date Recorded Sex Assigned at Not on file Legal Sex Female 11:40 AM DEPUTY ADMINISTRATOR Gender Identity Not on file Sexual Orientation Not on file documented as of this encounter Progress Notes * Sonia Pope RN - 09/05/2020 11:28 AM CST OCM unable to reach patient for SHOP enrollment. Attempted to call patient multiple times, LVM x3 requesting call back. Final VM left today stating this would be my final follow up attempt and to call back with any questions or concerns. Closing SHOP episode. TY ADMINISTRATOR documented in this encounter Plan of Treatment Not on file documented as of this encounter Visit Diagnoses Not on filedocumented in this encounter Care Teams Hardness Inspector Relationship Specialty Start Date End Date Jason Wiggins MD [address] [place] [address] PCP - General 08/27/20 12/20/20 documented as of this encounter
--- OUTSIDE RECORDS SUMMARY | 2024-08-05 02:32 | XMS_ITS | Encounter Summary ---
Author Organization [facility] Address [address] [place] [address] Phone Care Team Providers Care Board Certified Behavioral Analyst Name Role Phone Jason Wiggins MD Primary Care Provider [phone] Encounter Details Date Type Department Care Team (Late st Contact Info) Description 09/14/[address] [facility] Neurosurgery [address] [facility] 6[address] [place] [address] [place] [address] Neeru Garvey, JUAN Social History Tobacco Use Types Packs/Day Years Used Date Smoking Tobacco: Former Cigarettes Q uit: 08/23/2004 Comments No Sex and Gender Information Value Date Recorded Sex Assigned at Not on file Legal Sex Female 11:40 AM PROMOTIONS EXECUTIVE PRODUCER Gender Identity Not on file Sexual Orientation Not on file documented as of this encounter Miscellaneous Notes * Telephone Encounter - Amparo Chin - 11/07/2020 10:16 AM CDT [facility] [phone] Resident cell Admitted 11/04/20 Cerv fracture / currently has Cerv collar NO NS on staff @ this hosp provided Phy Access line number if wanting MYRA/ offered follow up visit once pt is Discharged. * Telephone Encounter - Amparo Chin - 10/20/2020 11:56 AM CDT Patient called to CX her upcoming hosp follow up. Offered to R/S but patient declined states has other pressing issues as priority * Telephone Encounter - Padma North RMA - 09/15/2020 10:07 AM CST Patient is schedule for hospital follow up with [employer] Kalpana Allen on 11/03/2020 Arrival time 9:50am at [facility] on 6th floor Appointment with [employer] Kalpana is schedule at 10:15 Patient is currently admitted Please place appointment on patient discharge summary for patient and family Thank you OTIONS EXECUTIVE PRODUCER * Telephone Encounter - Neeru Garvey RN - 09/14/2020 9:47 AM PROMOTIONS EXECUTIVE PRODUCER Please schedule with [employer]. Thanks. OTIONS EXECUTIVE PRODUCER * Telephone Encounter - Neeru Garvey RN - 09/14/2020 9:47 AM PROMOTIONS EXECUTIVE PRODUCER ----- Message from Jenny Varela MD sent at 09/14/2020 8:28 AM PROMOTIONS EXECUTIVE PRODUCER ----- Please schedule a follow-up appointment for Phoebe Hillman (: 1940) to be seen by Dr. Stroud in 6 weeks with flexion, extension and neutral xrays of the cervical spine. The patient was seen as a consult for C1 bilateral post arch fx, type 3 dens fx, which was managed non-operatively with a mille lacs J brace. Thank you Jenny Varela MD OTIONS EXECUTIVE PRODUCER documented in this encounter Plan of Treatment Not on file documented as of this encounter Visit Diagnoses Not on filedocumented in this encounter Care Teams Board Certified Behavioral Analyst Relationship Specialty Start Date End Date Jason Wiggins MD [address] [place] [address] PCP - General 08/27/20 12/20/20 documented as of this encounter
--- OUTSIDE RECORDS SUMMARY | 2024-08-05 02:32 | XMS_ITS | Encounter Summary ---
Author Organization [facility] Healthcare Address [address] [place] [address] Care Team Providers Care Residential Lawn Specialist Name Role Phone Jason Wiggnis MD Primary Care Provider [phone] Encounter Details Date Type Department Care Team (Latest Contact Info) Description 09/11/2020 6:18 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 Hospital Encounter [facility] [address] [place] [id number] Discharge Disposition: Discharge to home or self care Social History Tobacco Use Types Packs/Day Years Used Date Smoking Tobacco: Former Cigarettes Q uit: 08/23/2004 Comments No Sex and Gender Information Value Date Recorded Sex Assigned at Not on file Legal Sex Female 11:40 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 Gender Identity Not on file Sexual Orientation Not on file documented as of this encounter Medications at Time of Discharge albuterol HFA (PROVENTIL HFA,VENTOLIN HFA,PROAIR HFA) 90 mcg/actuation inhaler Inhale 2 puffs every 4 (four) hours as needed for wheezing 1 Inhaler 08/30/2020 hydroCHLOROthiazide (HYDRODIURIL) 12.5 mg tablet Take 1 tablet (12.5 mg total) by mouth daily 30 tablet 08/30/2020 ferrous sulfate 325 mg (65 mg of elemental iron) tabletIndications:I dada Deficiency Anemia Take 1 tablet (325 mg total) by mouth 2 (two) times a day with meals 60 tablet 08/30/2020 2 phenylephrine (MARTINA-SYNEPHRINE) 0.25 % nasal spray Administer 2 sprays into each nostril 4 (four) times a day for 9 doses 15 mL 09/16/2020 1 acetaminophen (TYLENOL) 325 mg tablet Take 2 tablets (650 mg total) by mouth every 4 (four) hours as needed for pain 30 tablet 08/29/2020 2 amitriptyline (ELAVIL) 25 mg tablet Take 1 tablet (25 mg total) by mouth daily 30 tablet 11 09/17/2020 2 busPIRone (BUSPAR) 10 mg tabletIndications:G eneralized Anxiety Disorder Take 1 tablet (10 mg total) by mouth 2 (two) times a day 60 tablet 08/30/2020 2 cholecalciferol (VITAMIN D-3) 2000 unit capsule Take 1 capsule (2,000 Units total) by mouth daily 30 capsule 08/30/[address] (VOLTAREN) 75 mg EC tablet Take by mouth 01/29/2020 2 fluticasone furoate-vilanteroL (BREO ELLIPTA) 100-25 mcg/dose diskus inhaler Inhale 1 puff daily Rinse mouth with water after use. Do not swallow. 60 each 08/30/2020 2 ipratropium (ATROVENT HFA) 17 mcg/actuation inhaler Inhale 2 puffs every 4 (four) hours as needed for wheezing 12.9 g 08/30/2020 2 metoprolol XL (TOPROL-XL) 100 mg 24 hr tablet Take 1 tablet (100 mg total) by mouth daily 30 tablet 08/30/2020 2 montelukast (SINGULAIR) 10 mg tablet Take 1 tablet (10 mg total) by mouth nightly 30 tablet 08/30/2020 2 ondansetron ODT (ZOFRAN-ODT) 4 mg disintegrating tablet Take 1 tablet (4 mg total) by mouth 4 (four) times a day as needed for nausea or vomiting 20 tablet 08/30/2020 1 oxyCODONE (ROXICODONE) 5 mg immediate release tabletIndications:P ain Take 1 tablet (5 mg total) by mouth every 4 (four) hours as needed for pain 30 tablet 09/16/2020 1 oxyCODONE (ROXICODONE) 5 mg immediate release tabletIndications:P ain Take 1 tablet (5 mg total) by mouth every 4 (four) hours as needed for pain 30 tablet 09/16/[address] (PROTONIX) 40 mg EC tabletIndications:S tress Ulcer Prophylaxis Take 1 tablet (40 mg total) by mouth daily 30 tablet 08/30/2020 2 ramelteon (ROZEREM) 8 mg tabletIndications:S leep-Onset Insomnia Take 1 tablet (8 mg total) [...] Comments NEURO CT MR OUTSIDE CONSULT Routine 09/11/2020 6:18 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 Diagnosis unknown documented in this encounter Results * Neuro CT MR Outside Consult (09/11/2020 6:18 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) Anatomical Region Laterality Modality N/A Computed Tomogra phy 09/11/2020 5:39 PM BEET WORKER Impressions 09/11/2020 5:39 PM BEET WORKER This study was initially nominated as a consult on outside images via [facility]. However, a consult was not performed because subsequent dedicated cervical spine MRI and CTA were performed at our institution. ??Accordingly, there will be no separate report of this study generated by a [facility] Radiologist. Electronically signed by: Karoline Wild M.D. Narrative 09/11/2020 5:39 PM BEET WORKER EXAMINATION: ??CHANGE CONSULT ON OUTSIDE IMAGES TO REFERENCE IMAGES Procedure Note Karoline Wild MD - 09/11/2020 EXAMINATION: CHANGE CONSULT ON OUTSIDE IMAGES TO REFERENCE IMAGES IMPRESSION: This study was initially nominated as a consult on outside images via [facility]EE[facility]. However, a consult was not performed because subsequent dedicated cervical spine MRI and CTA were performed at our institution. Accordingly, there will be no separate report of this study generated by a [facility] Radiologist. Electronically signed by: Karoline Wild M.D. Jenny Varela MD IMG CT PROCEDURES Final Resul t documented in this encounter Visit Diagnoses Not on filedocumented in this encounter Care Teams Residential Lawn Specialist Relationship Specialty Start Date End Date Jason Wiggins MD [facility] [place] [address] PCP - General 08/27/20 12/20/20 documented as of this encounter
--- OUTSIDE RECORDS SUMMARY | 2024-08-05 02:32 | XMS_ITS | Encounter Summary ---
Author Organization [facility] Healthcare Address [address] [place] [address] Care Team Providers Care Cover Inspector Name Role Phone Jason Wiggisn MD Primary Care Provider [phone] Sonia Pope RN Unavailable [phone] Reason for Visit * Reason Comments Chart Review Encounter Details Date Type Department Care Team (Late st Contact Info) Description 08/31/2020 SHOP/CHAP Initial Eligibility Review [facility] [address] [place] [address] Sonia Pope RN [phone] [place], [place] [id number] Social History Tobacco Use Types Packs/Day Years Used Date Smoking Tobacco: Former Cigarettes Q uit: 08/23/2004 Comments Unknown Sex and Gender Information Value Date Recorded Sex Assigned at Not on file 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
--- OUTSIDE RECORDS SUMMARY | 2024-08-05 02:32 | XMS_ITS | Encounter Summary ---
Author Organization [facility] Healthcare Address [address] [place] [address] Care Team Providers Care Customer Data Technician Name Role Phone Jason Wiggins MD Primary Care Provider [phone] Reason for Visit * Reason Comments Fall Encounter Details Date Type Department Care Team (Late st Contact Info) Description 09/10/2020 7:08 PM HEALTH AND FITNESS PROFESSOR - 09/16/2020 3:31 PM HEALTH AND FITNESS PROFESSOR Hospital Encounter [facility] [address] [place] [address] Tish Sharma MD [address] [place] [address] Edwin Moore MD PhD [address] [place] [address] Debby Hebert MD [address] [facility] [phone] [place] [address] Closed unstable burst fracture of first cervical vertebra, initial encounter ([facility]) (Primary Dx); Diagnosis unknown Discharge Disposition: Discharge to an IP Rehab facility Social History Tobacco Use Types Packs/Day Years Used Date Smoking Tobacco: Former Cigarettes Q uit: 08/23/2004 Comments No Sex and Gender Information Value Date Recorded Sex Assigned at Not on file Legal Sex Female 11:40 AM HEALTH AND FITNESS PROFESSOR Gender Identity Not on file Sexual Orientation Not on file documented as of this encounter Last Filed Vital Signs Vital Sign Reading Time Taken Comments Blood Pressure 149/88 09/16/2020 11:30 AM HEALTH AND FITNESS PROFESSOR Pulse 89 09/16/2020 11:30 AM HEALTH AND FITNESS PROFESSOR Temperature 36.8 ??C (98.2 ??F) 09/16/2020 11:[address] Respiratory Rate 16 09/16/2020 11:30 AM HEALTH AND FITNESS PROFESSOR Oxygen Saturation 98% 09/16/2020 11:30 AM HEALTH AND FITNESS PROFESSOR Inhaled Oxygen Concentration - - Weight 60.4 kg (133 lb 1.6 oz) 09/11/2020 2:55 A M HEALTH AND FITNESS PROFESSOR Height 162 cm (5' 3.78 ) 09/11/2020 2:55 AM HEALTH AND FITNESS PROFESSOR Body Mass Index 23 09/11/2020 2:55 AM HEALTH AND FITNESS PROFESSOR documented in this encounter Discharge Diagnoses Diagnosis Other displaced dens fracture, initial encounter for closed fracture (HCC) - OTHER DISPLACED DENS FRACTURE, INITIAL ENCOUNTER FOR CLOSED FRACTURE Chronic diastolic (congestive) heart failure (HCC) - CHRONIC DIASTOLIC (CONGESTIVE) HEART FAILURE Chronic respiratory failure with hypoxia (CMS/HCC) (HCC) - CHRONIC RESPIRATORY FAILURE WITH HYPOXIA Acidosis - ACIDOSIS Abrasion of other part of head, initial encounter - ABRASION OF OTHER PART OF HEAD, INITIAL ENCOUNTER 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/HCC) (HCC) - HYPERTENSIVE HEART DISEASE WITH HEART FAILURE Unspecified hypertensive heart disease with heart failure Chronic obstructive pulmonary disease, unspecified (HCC) - CHRONIC OBSTRUCTIVE PULMONARY DISEASE, UNSPECIFIED Pulmonary hypertension, unspecified (HCC) - PULMONARY HYPERTENSION, UNSPECIFIED Nontoxic single thyroid nodule - NONTOXIC SINGLE THYROID NODULE Nontoxic uninodular goiter Obesity, unspecified - OBESITY, UNSPECIFIED Major depressive disorder, single episode, unspecified - MAJOR DEPRESSIVE DISORDER, SINGLE EPISODE, UNSPECIFIED Anxiety disorder, unspecified - ANXIETY DISORDER, UNSPECIFIED Sleep apnea, unspecified - SLEEP APNEA, UNSPECIFIED Acute pain due to trauma - ACUTE PAIN DUE TO TRAUMA Gastro-esophageal reflux disease without esophagitis - GASTRO-ESOPHAGEAL REFLUX DISEASE WITHOUT ESOPHAGITIS Displaced posterior arch fracture of first cervical vertebra, initial encounter for closed fracture (HCC) - DISPLACED POSTERIOR ARCH FRACTURE OF FIRST CERVICAL VERTEBRA, INITIAL ENCOUNTER FOR CLOSED FRACTURE Personal history of nicotine dependence - PERSONAL HISTORY OF NICOTINE DEPENDENCE Fall on same level, unspecified, initial encounter - FALL ON SAME LEVEL, UNSPECIFIED, INITIAL ENCOUNTER Dependence on supplemental oxygen - DEPENDENCE ON SUPPLEMENTAL OXYGEN Repeated falls - REPEATED FALLS Other penitentiary (current) drug therapy - OTHER CARD CUTTER HELPER (CURRENT) DRUG THERAPY Unspecified place in unspecified non-institutional (private) residence as the place of occurrence of the external cause - UNSPECIFIED PLACE IN UNSPECIFIED NON-INSTITUTIONAL (PRIVATE) RESIDENCE THE PLACE OF OCCURRENCE OF Other specified events, undetermined intent, initial encounter - OTHER SPECIFIED EVENTS, UNDETERMINED INTENT, INITIAL ENCOUNTER Contact with and (suspected) exposure to covid-19 - CONTACT WITH AND (SUSPECTED) EXPOSURE TO COVID-19 Body mass index (BMI) 24.0-24.9, adult - BODY MASS INDEX [BMI] 24.0-24.9, ADULT Contusion of lower back and pelvis, initial encounter - CONTUSION OF LOWER BACK AND PELVIS, INITIAL ENCOUNTER Contusion of left forearm, initial encounter - CONTUSION OF LEFT FOREARM, INITIAL ENCOUNTER Sprain of ligaments of cervical spine, initial encounter - SPRAIN OF LIGAMENTS OF CERVICAL SPINE, INITIAL ENCOUNTER documented in this encounter Discharge Summaries * Inga Nova, JUICE - 09/16/2020 11:52 AM CST [facility] Inpatient Discharge Summary This is a clinical resume for patient Phoebe Hillman for attending Debby Hebert,* Admission Date: 09/10/2020 Admitting Provider: Debby Hebert MD Discharge Date: 09/16/2020 Hospitalization: Total duration of encounter: 6 days Team: Geriatric Trauma Surgery Primary Care Provider: Jason Wiggins MD Discharge Diagnosis(es): Active Problems: Chronic obstructive pulmonary disease with acute exacerbation (CMS/HCC) HTN (hypertension) GERD (gastroesophageal reflux disease) Closed odontoid fracture with type III morphology (CMS/HCC) Acute pain due to trauma Anxiety Chronic congestive heart failure (CMS/HCC) Depression Pulmonary hypertension, moderate to severe (CMS/HCC) Sleep apnea Syncope Resolved Problems: No resolved hospital problems. Hospital Course: Clinical Course: improved History of Present Illness: Phoebe Hillman is a 79 y.o. female with a past medical history of HTN, COPD (on 4L O2 at home), GERD, melena, obesity, and previous hysterectomy who presented to the [facility] ED with neck pain after several falls. The patient stated she had sustained several falls over the past week; she fell again one day prior to arrival, went to bed and continued to have pain upon waking up. The patient denied tripping or having presyncopal symptoms prior to the falls. OSH imaging demonstrated a C1-C2 fracture and she was transferred to the [facility] ED for further treatment. On arrival, the patient was alert and oriented. Exam demonstrated an obese female, abrasion to the left forehead, mild tenderness to palpation to the coccyx and ecchymosis to left buttock, left forearm ecchymosis, and intact strength and sensation to all extremities. Imaging demonstrated a Type III odontoid fracture and??fractures of the right and left posterior arches of C1, unchanged compression deformities involving T12and T11 and to a lesser extent T10. CTA demonstrated a dominant right vertebral artery, no injury to the vertebral or carotid arteries. An incidental finding of a 2 cm right thyroid nodule was also noted. An MRI was obtained and demonstrated an Odontoid fracture with prevertebral fluid collection and sprain of nuchal ligament; possible injury of other craniocervical ligaments, left vertebral artery irregularity in the V2/V3 segment. Neurosurgery was consulted. The patient was admitted to the GTS service for further treatment. ?? Active Issues Requiring Follow Up: #Type III Odontoid fracture: - Neurosurgery consulted - Cervical spine precautions - Maintain cervical spine collar - Pain control - OK for DVT PPX - Q4H NV checks -??Repeat MRI:??Grossly unchanged type III odontoid fracture with associated prevertebral edema and nuchal ligament sprain - PT/OT - Follow up in 6 weeks with repeat flex-ex films ?? #Syncope: - Continuous telemetry - 09/13: Orthostatics negative - Possible polypharmacy related ?? #Acute Pain due to Trauma: - Tylenol 1000 mg Q8H - Oxycodone 5 mg Q4H PRN ?? #HTN: - HCTZ 12.5 mg / day - Metoprolol XL 100 mg / day ?? #COPD: - Continue to maintain at 4L of home O2 - Albuterol + Fluticasone inhaler - Telemetry for O2 monitoring ?? #Depression/Anxiety: - 09/12: Clonazepam and Elavil restarted - Restoril on hold - 09/14: D/c'ed clonazepam due to concern for polypharmacy and increased fall risk ?? #DVT ppx:??Lovenox while inpatient. None needed at discharge. Patient should ambulate at least TID ?? Operative Procedures Performed: Procedure name not found. No surgery found Discharge Physical Exam: Discharge Condition: fair Pulse: 84 Resp: 20 BP: 155/82 Temp: 36.7 ??C (98.1 ??F) Weight: 60.4 kg (133 lb 1.6 oz) GENERAL- no acute distress, comfortable NEURO- alert and oriented, follows instructions PSYCH- Mood and affect appropriate HEENT- mucous membranes moist, C spine collar CARDIO- regular rate and rhythm RESP- nonlabored respirations GI- abdomen soft, nontender, nondistended MSK- grossly normal range of motion. Cervical collar in place EXTREMITIES- extremities warm and dry, no swelling INTEGUMENT- no rashes Diet: Diet Instructions Adult Discharge Diet Diet Type: Return to previous diet Discharge Disposition: Discharge to home, home health skilled care Code Status at Discharge: Full Activity: Activity Instructions Discharge Activity: Additional Activity Restrictions: Cervical spine precautions. Maintain [place] J collar at all times (okay to change collar for showers). Discharge Activity: Walking -You may walk as tolerated. activity as tolerated Right Upper ExtremityWeight bearing as tolerated Left Upper ExtremityWeight bearing as tolerated Right Lower ExtremityWeight bearing as tolerated Left Lower ExtremityWeight bearing as tolerated Wound Care: Carries out hygiene routine on a regular basis and Requires assistance as directed Discharge Medications: Your medication list START taking these medications amitriptyline 25 mg tablet Take 1 tablet (25 mg total) by mouth daily Commonly known as: ELAVIL Start taking on: September 17, 2020 oxyCODONE 5 mg immediate release tablet Take 1 tablet (5 mg total) by mouth every 4 (four) hours as needed for pain Commonly known as: ROXICODONE phenylephrine 0.25 % nasal spray Administer 2 sprays into each nostril 4 (four) times a day for 9 doses Commonly known as: MARTINA-SYNEPHRINE ramelteon 8 mg tablet Take 1 tablet (8 mg total) by mouth nightly Commonly known as: ROZEREM CONTINUE taking these medications acetaminophen 325 mg tablet Take 2 tablets (650 mg total) by mouth every 4 (four) hours as needed for pain Commonly known as: TYLENOL albuterol HFA 90 mcg/actuation inhaler Inhale 2 puffs every 4 (four) hours as needed for wheezing Commonly known as: PROVENTIL HFA,VENTOLIN HFA,PROAIR HFA busPIRone 10 mg tablet Take 1 tablet (10 mg total) by mouth 2 (two) times a day Commonly known as: BUSPAR cholecalciferol 2000 unit capsule Take 1 capsule (2,000 Units total) by mouth daily Commonly known as: VITAMIN D-3 ferrous sulfate 325 mg (65 mg of elemental iron) tablet Take 1 tablet (325 mg total) by mouth 2 (two) times a day with meals fluticasone furoate-vilanteroL 100-25 mcg/dose diskus inhaler Inhale 1 puff daily Rinse mouth with water after use. Do not swallow. Commonly known as: BREO ELLIPTA hydroCHLOROthiazide 12.5 mg tablet Take 1 tablet (12.5 mg total) by mouth daily Commonly known as: HYDRODIURIL ipratropium 17 mcg/actuation inhaler Inhale 2 puffs every 4 (four) hours as needed for wheezing Commonly known as: ATROVENT HFA metoprolol XL 100 mg 24 hr tablet Take 1 tablet (100 mg total) by mouth daily Commonly known as: TOPROL-XL montelukast 10 mg tablet Take 1 tablet (10 mg total) by mouth nightly Commonly known as: SINGULAIR pantoprazole DR 40 mg EC tablet Take 1 tablet (40 mg total) by mouth daily Commonly known as: PROTONIX umeclidinium 62.5 mcg/actuation blister with device Inhale 1 puff (62.5 mcg total) daily Commonly known as: INCRUSE ELLIPTA STOP taking these medications ondansetron ODT 4 mg disintegrating tablet Commonly known as: ZOFRAN-ODT Discharge Instructions: Other Instructions Call provider for: increased temperature -Temperature greater than 101 degrees F Call provider for: nausea, vomiting, diarrhea -If you have persistent nausea, vomiting or diarrhea that does not stop Call provider for: severe uncontrolled pain Call provider for: any other concerns or questions Call provider if: you feel dizzy, very tired or like you may faint Care Instructions: Incentive Spirometer - Continue to use your incentive spirometer Care Instructions: Shower -You may shower. [place] J Collar: Please lay down on a flat surface, then remove the cervical collar twice daily to assess and cleanse skin. Please have two other people helping you. One person should hold your head as instructed to prevent you from turning, flexing, or extending your neck, while the second person removes the collar, performs skin care with washing and cleanse skin, remove dirty pads from cervicalcollar, replace with clean pads, and then apply the cervical collar. When taking a shower you must wear spinal collar. You are not allowed to drive while in a spinal brace. YOU MUST WEAR YOUR SPINAL BRACE AT ALL TIMES UNTIL CLEARED WITH FOLLOW UP VISITS. Special Instructions Please contact the Trauma Department if any problems develop, please call the Trauma office [phone]. Please be aware all medications including narcotic pain medications cannot be called in over the phone. To refill, an appointment will need to be made with the appropriate medical or surgical service. You may follow up with your primary care physician for long-term management of medications and long-term medical conditions. Special Instructions: Continue following PT/OT instructions Call your Surgeon???s office from 8:00am-3:30pm at [...] any other concerns or questions Follow up Future Appointments Date Time Provider Department Center 11/03/2020 10:15 AM Kalpana Allen NP [facility] I spent 30 minutes completing this hospital discharge. Anuradha Nova NP 09/16/20 CC: Jason Wiggins MD Cosigned by Morgan Bronson MD at 09/26/2020 5:56 AM HEALTH AND FITNESS PROFESSOR TH AND FITNESS PROFESSOR TH AND FITNESS PROFESSOR Associated attestation - Morgan Bronson MD - 09/26/2020 5:56 AM HEALTH AND FITNESS PROFESSOR I have seen and examined the patient on 09/16/2020 in conjunction with the non- physician provider. History: Multiple falls with spine fractures Physical Exam: Alert and orient x4 Lab/Radiology/Diagnostics Review: Assessment/Plan Pato Locke PT OT Pain control documented in this encounter Medications at Time [...] 08/30/2020 2 documented as of this encounter Ordered Prescriptions Prescription Sig Dispense Quantity Refills Last Filled Start Date End Date oxyCODONE (ROXICODONE) 5 mg immediate release tabletIndications: Pain Take 1 tablet (5 mg total) by mouth every 4 (four) hours as needed for pain 30 tablet 09/16/2020 2 ramelteon (ROZEREM) 8 mg tabletIndications: Sleep-Onset Insomnia Take 1 tablet (8 mg total) by mouth nightly 30 tablet 11 09/16/2020 2 phenylephrine (MARTINA-SYNEPHRINE) 0.25 % nasal spray Administer 2 sprays into each nostril 4 (four) times a day for 9 doses 15 mL 09/16/2020 1 oxyCODONE (ROXICODONE) 5 mg immediate release tabletIndications: Pain Take 1 tablet (5 mg total) by mouth every 4 (four) hours as needed for pain 30 tablet 09/16/2020 1 amitriptyline (ELAVIL) 25 mg tablet Take 1 tablet (25 mg total) by mouth daily 30 tablet 11 09/17/2020 2 documented in this encounter Discharge Disposition Disposition Code Departure Means Destination Discharge to an Rehab facility [facility] documented in this encounter Progress Notes * Jacinda Ahumada LMSW - 09/16/2020 10:34 AM CST 09/16/20 1034 Discharge Summary Chart reviewed For Medical Necessity Discharge Disposition Inpatient (Acute) Rehab Hospital Specify Facility [facility] Facility Contact Number [phone] Discharge Records Transfer Form Completed;Chart Copied Discharge Additional Assistance Does the patient need discharge transport arranged? Yes Has discharge transport been arranged? Yes Details of Transportation [facility] [phone] Post Discharge Care Provider Post Discharge Care Plan DC Summary has been faxed to next level of care provider (see Follow Up Providers) [facility] F: [phone] R: [phone] Room 305a [facility] [phone] Pt has been deemed medically stable for discharge. Pt aware and agreeable. Pt's dtr updated. Transportation has rani arranged through [facility]. Mode of transport has been discussed with the patient/family, doctors, nurses, and all are agreeable to plan and understand their responsibilities to ensure the safe transfer. Certificate of Medical Necessity completed due to cervical spine frx. No further social work intervention is anticipated at this time. Patient/family informed that while medical team will do everything possible for Medicare to pay forthe ambulance there is a chance that Medicare will not pay, as Medicare's criteria for ambulances are often stricter than the medical team. Social work informed patient/family that even if Medicare does pay, it may not cover the full cost of the trip as Medicare is now only covering the cost to nearest available facility. Social work informed patient/family that they will be responsible for the remainder of the bill. Patient/family voiced understanding. Jacinda Ahumada LCSW [facility] Social Work [phone] For emergency needs from 4:31p.m. - 7:59a.m., please call the ED Truck Crane Operator . For weekend needs from 8:00a.m. - 4:30p.m., please call the Weekend Social Work Staff . TH AND FITNESS PROFESSOR * Yoana Manrique, RN - 09/16/2020 4:43 AM CST Assessment of patient???s baseline is established at the beginning of the shift in flowsheets. Patient reassessed per order, unexpected findings and/or deviations from baseline are captured in flowsheets. Q1 hour safety checks and comfort rounds provided. Orders and/or nursing care completed as indicated. Vital signs remained stable throughout night. Patient monitored for response to interventions and treatments as documented in flowsheets. Pt remains A&Ox4, up SBA to BSC. Pt last BM yesterday. C-collar remains in place. Pt still on 4 liters baseline. Pt restless overnight with minimal sleep. Pain being managed with prn oxycodone. Education provided includes Discharge Planning, Fall Prev ention, Pain Management, Skin Breakdown Prevention/Treatment and Treatments/Therapies. Patient and/or administrative representative Verbalizes understanding. Will continue to monitor. TH AND FITNESS PROFESSOR * Bettye Robertson NP - 09/15/2020 1:02 PM CST [facility] Daily Progress Note Admit: 09/10/2020 7:08 PM Date: September 15, 2020 Length of Stay: 5 Attending: Debby Hebert,* POD:* No surgery found * History: Phoebe Hillman is a 79 y.o. female with a past medical history of HTN, COPD (on 4L O2 at home), GERD, melena, obesity, and previous hysterectomy who presented to the [facility] ED with neck pain after several falls. The patient stated she had sustained several falls over the past week; she fell again one day prior to arrival, went to bed and continued to have pain upon waking up. The patient denied tripping or having presyncopal symptoms prior to the falls. OSH imaging demonstrated a C1-C2 fracture and she was transferred to the [facility] ED for further treatment. On arrival, the patient was alert and oriented. Exam demonstrated an obese female, abrasion to the left forehead, mild tenderness to palpation to the coccyx and ecchymosis to left buttock, left forearm ecchymosis, and intact strength and sensation to all extremities. Imaging demonstrated a Type III odontoid fracture and fractures of the right and left posterior arches of C1, unchanged compression deformities involving T12 and T11 and to a lesser extent T10. CTA demonstrated a dominant right vertebral artery, no injury tothe vertebral or carotid arteries. An incidental finding of a 2 cm right thyroid nodule was also noted. An MRI was obtained and demonstrated an Odontoid fracture with prevertebral fluid collection and sprain of nuchal ligament; possible injury of other craniocervical ligaments, left vertebral artery irregularity in the V2/V3 segment. Neurosurgery was consulted. The patient was admitted to the [facility] for further treatment. Interval History: Neosynephrine spray ordered for patient's ear fullness. Pending placement. 09/14: NAEON. MRI completed and unchanged. Pending Neurosurgery sign off recs. PT/OT for dispo planning. 09/13: No acute events over night, orthostatics negative this am, plan for therapy for DC planning today 09/12: Repeat MRI C spine per NSGY. Lovenox resumed for dvt ppx. Swallow eval pending 09/11: [place] J collar placed on pt. Pain well managed. Likely non-op but will f/u with NSG. Telemetryand Orthostatics ordered. PERSONNEL ASSOCIATE consult ordered for difficulty swallowing. Pain:controlled Nausea: No Flatus: No Bowel Movement: 09/13 Medications: Current Facility-Administered Medications: ??? acetaminophen (TYLENOL) tablet 1,000 mg, 1,000 mg, oral, Q8H, Jacquelyn Huston MD, 1,000 mg at 09/15/20 1202 ??? albuterol HFA (PROVENTIL HFA,VENTOLIN HFA,PROAIR HFA) 90 mcg/actuation inhaler 2 puff, 2 puff, inhalation, Q4H PRN (RT), Jacquelyn Huston MD ??? amitriptyline (ELAVIL) tablet 25 mg, 25 mg, oral, Daily, Poor, Addis Wen NP, 25 mg at 09/15/20935 ??? busPIRone (BUSPAR) tablet 10 mg, 10 mg, oral, BID, Jacquelyn Huston MD, 10 mg at 09/15/20934 ??? cholecalciferol (VITAMIN D-3) capsule 2,000 Units, 2,000 Units, oral, Daily, Jacquelyn Huston MD, 2,000 Units at 09/15/20934 ??? enoxaparin (LOVENOX) syringe 30 mg, 30 mg, subcutaneous, Q12H CHET, Inga Nova NP, 30 mg at 09/15/20934 ??? ferrous sulfate tablet 325 mg, 65 mg of elemental iron, oral, BID with meals (bkfst, dinner), Jacquelyn Huston MD, 325 mg at 09/15/20935 ??? [START ON 09/16/2020] fluticasone furoate-vilanteroL (BREO ELLIPTA) 100-25 mcg/dose inhaler 1 puff, 1 puff, inhalation, Daily, Jacquelyn Huston MD ??? hydroCHLOROthiazide (HYDRODIURIL) tablet 12.5 mg, 12.5 mg, oral, Daily, Jacquelyn Huston MD, 12.5 mgat 09/15/20934 ??? metoprolol XL (TOPROL-XL) extended release tablet 100 mg, 100 mg, oral, Daily, aJcquelyn Huston MD, 100 mg at 09/15/20934 ??? montelukast (SINGULAIR) tablet 10 mg, 10 mg, oral, Nightly, Jacquelyn Huston MD, 10 mg at 09/14/202113 ??? oxyCODONE (ROXICODONE) tablet 5 mg, 5 mg, oral, Q4H PRN, Jacquelyn Huston MD, 5 mg at 09/15/20934 ??? pantoprazole DR (PROTONIX) extended release tablet 40 mg, 40 mg, oral, Daily, Jacquelyn Huston MD, 40 mg at 09/15/20935 ??? phenylephrine (MARTINA-SYNEPHRINE) 0.25 % nasal spray 2 spray, 2 spray, each nostril, QID, Bettye Robertson NP ??? ramelteon (ROZEREM) tablet 8 mg, 8 mg, oral, Nightly, Bettye Robertson, JUICE, 8 mg at 09/14/202113 ??? sodium chloride 0.9% flush 0.5-20 mL, 0.5-20 mL, intra-catheter, Q8H CHET, Jacquelyn Huston MD, 10 mLat 09/14/202114 ??? sodium chloride 0.9% flush 0.5-20 mL, 0.5-20 mL, intra-catheter, PRN, Jacquelyn Huston MD ??? [START ON 09/16/2020] umeclidinium (INCRUSE ELLIPTA) 62.5 mcg/actuation inhaler 62.5 mcg, 1 puff, inhalation, Daily, Jacquelyn Huston MD Diet: Dietary Orders (From admission, onward) Start Ordered 09/13/20 1340 Adult Diet Regular Diet effective now Question: ([facility]) Diet type Answer: Regular 09/13/20 1339 Activity: cervical precautions Is&Os: I/O last 2 completed shifts: In: - Out: 50 [Urine:50] No intake/output data recorded. Physical Exam: 24hr Min/Max: Temp Min: 36.4 ??C (97.5 ??F) Max: 36.8 ??C (98.2 ??F) Pulse Min: 81 Max: 90 BP Min: 150/89 Max: 170/86 Resp Min: 18 Max: 20 SpO2 Min: 97 % Max: 100 % Vitals: 09/15/20 0920 BP: 170/86 Pulse: 84 Resp: 18 Temp: 36.7 ??C (98.1 ??F) SpO2: 100% Constitutional: cooperative and no apparent distress Head: atraumatic Neurologic: alert and oriented x4 sensation intact all extremities motor 5/5 all extremities Eyes: conjunctivae/corneas clear. PERRL HENT: external aural meatus intact with no visable drainage from the ear Neck: cervical collar in place Chest: normal appearance, no masses or tenderness Respiratory: normal chest rise and fall and diminished breath sounds bilateral Cardiovascular: regular rate and rhythm, S1, S2 normal, no murmur, click, rub or gallop Gastrointestinal: soft, non-tender; bowel sounds present; no masses, no organomegaly Musculoskeletal: extremities normal, warm and well-perfused Pulses: radial: bilateral normal Skin: skin color, texture, turgor normal. No rashes or lesions Labs/Imaging: No results found for this or any previous visit (from the past 72 hour(s)). Xr Spine Cervical 2 Or 3 Views Result Date: 09/10/2020 1. Displaced fracture through the posterior elements of C1 with subtle irregularity/step off along the posterior aspect of the dens may correlate to the patient's reported C1 and C2 fractures. 2. Unchanged compression deformities involving T12 and T11 and to a lesser extent T10. 3. No definite fracture involving the lumbar spine, sacrum, coccyx, and pelvis. Dictated by: Caitlin Monet M.D. The radiology attending physician has personally reviewed this study, and had reviewed and/or editedthis written report and agrees with it. Electronically signed by: Altaf Ascencio M.D. Xr Spine Thoracic 3 Vw Result Date: 09/10/2020 1. Displaced fracture through the posterior elements of C1 with subtle irregularity/step off along the posterior aspect of the dens may correlate to the patient's reported C1 and C2 fractures. 2. Unchanged compression deformities involving T12 and T11 and to a lesser extent T10. 3. No definite fracture involving the lumbar spine, sacrum, coccyx, and pelvis. Dictated by: Caitlin Monet M.D. The radiology attending physician has personally reviewed this study, and had reviewed and/or editedthis written report and agrees with it. Electronically signed by: Altaf Ascencio M.D. Xr Spine Lumbar 2 Or 3 Views Result Date: 09/10/2020 1. Displaced fracture through the posterior elements of C1 with subtle irregularity/step off along the posterior aspect of the dens may correlate to the patient's reported C1 and C2 fractures. 2. Unchanged compression deformities involving T12 and T11 and to a lesser extent T10. 3. No definite fracture involving the lumbar spine, sacrum, coccyx, and pelvis. Dictated by: Caitlin Monet M.D. The radiology attending physician has personally reviewed this study, and had reviewed and/or editedthis written report and agrees with it. Electronically signed by: Altaf Ascencio M.D. Xr Sacrum Coccyx 2 Or More Views Result Date: 09/10/2020 1. Displaced fracture through the posterior elements of C1 with subtle irregularity/step off along the posterior aspect of the dens may correlate to the patient's reported C1 and C2 fractures. 2. Unchanged compression deformities involving T12 and T11 and to a lesser extent T10. 3. No definite fracture involving the lumbar spine, sacrum, coccyx, and pelvis. Dictated by: Caitlin Monet M.D. The radiology attending physician has personally reviewed this study, and had reviewed and/or editedthis written report and agrees with it. Electronically signed by: Altaf Ascencio M.D. Cta Neck W Wo Contrast Result Date: 09/11/2020 1. Right vertebral artery is dominant. No angiographic evidence of injury to the vertebral arteriesor carotid arteries. 2. Type III odontoid fracture and fractures of the right and left posterior arches of C1. 3. 2 cm right thyroid nodule. If clinically warranted, this could be evaluated on a nonemergent basis with outpatient ultrasound. Dictated by: Angelica Salcedo M.D. Mri Cervical Spine Wo Contrast Result Date: 09/10/2020 1. Severely motion degraded study. 2. Odontoid fracture with prevertebral fluid collection and sprain of nuchal ligament; possible injury of other craniocervical ligaments which is difficult to evaluate due to motion artifact. Recommend follow-up when the patient able to tolerate MRI. 3. Left vertebral artery irregularity in the V2/V3 segment, further evaluation with CT angiography is recommended. Recommend CT cervical spine reconstructions from CTA study to better evaluate fractures. 4. Thyroid nodules for which further evaluation with ultrasound is recommended. Findings discussed with Dr. Boston at 10:53 PM to 09/10/2020. Dictated by: Miguel Henriquez MD, PHD The radiology attending physician has personally reviewed this study, and had reviewed and/or edited this written report and agreeswith it. Electronically signed by: Makenna Martinez M.D. Xr Pelvis 1 Or 2 Views Result Date: 09/10/2020 1. Displaced fracture through the posterior elements of C1 with subtle irregularity/step off along the posterior aspect of the dens may correlate to the patient's reported C1 and C2 fractures. 2. Unchanged compression deformities involving T12 and T11 and to a lesser extent T10. 3. No definite fracture involving the lumbar spine, sacrum, coccyx, and pelvis. Dictated by: Caitlin Monet M.D. The radiology attending physician has personally reviewed this study, and had reviewed and/or editedthis written report and agrees with it. Electronically signed by: Altaf Ascencio M.D. Assessment and Plan: Active Problems: Chronic obstructive pulmonary disease with acute exacerbation (CMS/HCC) HTN (hypertension) GERD (gastroesophageal reflux disease) Closed odontoid fracture with type III morphology (CMS/HCC) Acute pain due to trauma Anxiety Chronic congestive heart failure (CMS/HCC) Depression Pulmonary hypertension, moderate to severe (CMS/HCC) Sleep apnea Syncope #Type III Odontoid fracture: - Neurosurgery consulted - Cervical spine precautions - Maintain cervical spine collar - Pain control - OK for DVT PPX - Q4H NV checks - Repeat MRI: Grossly unchanged type III odontoid fracture with associated prevertebral edema and nuchal ligament sprain - PT/OT - Follow up in 6 weeks with repeat flex-ex films #Syncope: - Continuous telemetry - 09/13: Orthostatics negative - Possible polypharmacy related #Acute Pain due to Trauma: - Tylenol 1000 mg Q8H - Oxycodone 5 mg Q4H PRN #HTN: - HCTZ 12.5 mg / day - Metoprolol XL 100 mg / day #COPD: - Continue to maintain at 4L of home O2 - Albuterol + Fluticasone inhaler - Telemetry for O2 monitoring #Depression/Anxiety: - 09/12: Clonazepam and Elavil restarted - Restoril on hold - 09/14: D/c'ed clonazepam #DVT ppx: Lovenox #Dispo: Pending Bettye Robertson NP Cosigned by Morgan Bronson MD at 09/26/2020 5:55 AM HEALTH AND FITNESS PROFESSOR TH AND FITNESS PROFESSOR TH AND FITNESS PROFESSOR Associated attestation - Morgan Bronson MD - 09/26/2020 5:55 AM HEALTH AND FITNESS PROFESSOR I have seen and examined the patient on 09/15/2020 in conjunction with the non- physician provider. History: Multiple falls with spine fractures Physical Exam: Alert and orient x4 Lab/Radiology/Diagnostics Review: Assessment/Plan [place] J Collar PT OT Pain control * Marnie Ross RN - 09/15/2020 3:18 AM CST Assessment of patient???s baseline is established at the beginning of the shift in flowsheets. Patient reassessed per order, unexpected findings and/or deviations from baseline are captured in flowsheets. Frequent safety checks and comfort rounds provided. Orders and/or nursing care completed as indicated. Patient monitored for response to interventions and treatments as documented in flowsheets.Goals for the shift are pain control, rest, monitor neuro status. Education provided includes Fall Prevention, Pain Management, Self-Care: bathing and Skin Breakdown Prevention/Treatment. Patient Verbalizes understanding. Will continue to monitor. TH AND FITNESS PROFESSOR * Jenny Varela MD - 09/14/2020 8:27 AM CST Neurosurgery Follow Up Note This patient was seen by the Neurosurgery team for C1 bilateral post arch fracture, type 3 dens fracture, which was managed non-operatively with a enterprise J brace. This patient was staffed with Dr. Stroud, who reviewed the patient's history and imaging. The patient should be seen in our clinic in 6 weeks with cervical flexion/extension films. This appointment has been tasked by our service. Please include the appointment date in the discharge paperwork, which can be found under the Encounters tab. Please include this phone number to our clinic in the discharge instructions for the patient to confirm their appointment date and time: ??? Appointment Scheduling: ??? Doctor???s Office: Dr. Juan Antonio Stroud, ??? After hours emergency: or If there are further questions or concerns regarding this patient, please page the Neurosurgery call pager at [phone], and request the resident caring for Dr. Stroud's patients. Jenny Varela MD TH AND FITNESS PROFESSOR * Bere Nuno - 09/14/2020 8:09 AM CST Occupational Therapy Occupational Therapy Initial Assessment NOTE:This is a summary note for the giron assessments completed during the evaluation session. For full details, review chart review for all flowsheets documented on by this Occupational Therapist on this date. Vital signs documented in vital signs flowsheet. Assessment Assessment Problem List: Decreased safe judgment during ADL, Decreased endurance, Decreased balance, Decreasedfunctional mobility, Decreased ADL independence, Decreased IADL independence Barriers to Discharge: Current Mobility Status, Decreased caregiver support, Decreased safety awareness Barrier Comments: Fall risk Plan Plan Plan: Plan of care initiated, If this is the last note, consider this the discharge summary OT Recommendation and Plan Recommendation/Plan OT Recommendation: Inpatient Rehab Facility OT Recommendation/Plan Comments: Pt appears agreeable to dc options IP or SNF d/t pt determined unsafe to be home w/o 24 hour sup, which is not available OT Frequency: 3-5x/wk Comments: Treatment consisted of demonstration/education of cervical precautions during ADLs/functional transfers and safe use WW during functional transfers/ADL training. OTS wore PPE (mask, gloves,goggles). Pt ambulated to/from bathroom with SBA for safety with WW. Pt appears agreeable to dc options IP or SNF d/t pt determined unsafe to be home w/o 24 hour sup, which is not available Treatment/Interventions: ADL/IADL retraining, Balance Training, Bed mobility, Compensatory technique education, Endurance training, Functional mobility training, Functional transfer training OT - Next Appointment: 09/16/20 OT Evaluation Complete: Yes General Information General Chart Reviewed: Yes Session Type: Evaluation OT Received On: 09/14/20 Safe Environment: Arm Band Checked, Bed Alarm placed and activated, Chair Alarm placed and activated, Call Light within Reach, Notified RN, Patient found in Supine(Pt left sitting in chair w/ chair alarm placed/activated ) Subjective: Agreeable to Therapy Family/Caregiver Present: No Occupational Therapy-Patient Goal: Pt reports to get well ; pt agreeable to UB/LB dressing, toileting, and functional transfer goals Precautions Precautions Precautions: Cervical spine, Fall risk Weight Bearing Restrictions: No Braces/Orthoses: Cervical collar([place] J ) Precaution Handout Issued: Yes Precaution Comments: Verbally educated pt on precautions; pt verbalized understanding of precautions and demo'd precautions during session Home Living Home Living Type of Home: House Home Layout: One level Home Access: Stairs to enter with rails Entrance Stairs-Rails: Both Entrance Stairs-Number of Steps: 8 Bathroom Shower/Tub: Tub/shower unit Bathroom Toilet: Standard Bathroom Equipment: Shower chair Bathroom Accessibility: Accessible via walker(Pt reports barely ) Home Mobility Equipment: Wheeled walker(Pt does not ambulate w/ WW at baseline ) Prior Function Prior Function Level of [place]: Independent functional transfers, Independent with ambulation, Needs assistance with ADLs, Needs assistance with homemaking Lives With: Other (Comment)(Lives with ex-; pt he cooks when he feels like it ) Receives Help From: Family(Kids can provide PT assistance) Driving: No Mode of Transportation: Driven by others(Daughter drives pt ) ADL Assistance: Needs assistance Bathing: Other (Comment)(Pt reports daughter helps her bathe ) Instrumental ADL (IADL) Assistance: Needs assistance Meal Prep: Other (Comment)( cooks when he feels like it ; she eats can food ) Cleaning: Other (Comment)(Pt reports kids help with cleaning ) Fall within the last 6 months: Yes Fall within the last 6 months comment: Pt estimates ~5 falls; pt reports falls c/b feet just quit ; pt reports the fall leading to this acute admission occured when walking on carpet and feet just quit Activities of Daily Living Grooming Grooming: Where assessed: Standing at sink(WW) Grooming: Level of assistance: Standby Assist Grooming: Assistance with: Increased time to complete, Safety(Verbal cueing for WW placement ) UE Dressing UE Dressing: Where assessed: Edge of bed UE Dressing: Level of assistance: Standby Assist UE Dressing: Assistance with: Increased time to complete, Maintaining precautions, Safety(Verbal cueing for maintaining precautions ) LE Dressing LE Dressing: Where assessed: Edge of bed LE Dressing: Level of assistance: Standby Assist LE Dressing: Assistance with: Increased time to complete, Safety, Maintains precautions, Verbal cueing(Verbal cueing for maintaining precautions ) Toileting Toileting: Where assessed: Toilet Toileting: Level of assistance: Contact Guard Assist Toileting: Assistance with: Increased time to complete(Safety and verbal cueing for WW placement ) Pain Pain Assessment Pain Assessment: 0-10 Pain Score: 8 Pain Location: Neck Pain Orientation: Generalized Pain Interventions: RN Notified Cognition Cognition Overall Cognitive Status: Within Functional Limits Arousal/Alertness: Alert, Appropriate responses to stimuli Attention Span: Appears intact Memory: Appears intact Orientation : Oriented X4 (person, place, time, situation) Following Commands: Follows all commands and directions without difficulty Safety Judgment: Decreased awareness of need for assistance Awareness of Errors: Assistance required to identify errors made, Assistance required to correct errors made Insight: Decreased awareness of deficits Problem Solving: Assistance required to identify errors made, Assistance required to generate solutions, Assistance required to implement solutions Compliance/Behavior: Easy to engage Perseveration: Not present Short Blessed Test What year is it now?: Correct What month is it now?: Correct Repeat this name and address after me: Dakota Reilly [address] [place] [address] Without looking at the clock, tell me what time it is: Correct-within one hour Count aloud backwards from 20-1: 0 Errors Say the months of the year backwards in reverse order: 0 Errors Repeat the name and address I asked you to remember: 0 Errors Short Blessed Total Score: 0 Short Blessed Comments: WFL 6 Clicks Balance Static Sitting Balance Static Sitting-Balance Support: No upper extremity supported, Feet supported Static Sitting-Sitting Surface: Bed Static Sitting-Level of Assistance: Independent Dynamic Sitting Balance Dynamic Sitting-Balance Support: Unilateral upper extremity supported, Feet supported Dynamic Sitting-Balance: Lateral lean, Forward lean, Reaching for objects Dynamic Sitting-Sitting Surface: Bed Dynamic Sitting-Level of Assistance: Close supervision Dynamic Sitting-Comments: Safety Static Standing Balance Static Standing-Balance Support: Bilateral upper extremity supported, No upper extremity supported(B UE w/ WW; no UE supported w/o WW ) Static Standing-Standing Surface: Floor Static Standing-Level of Assistance: Close supervision Static Standing-Comment/# of Minutes: Safety Dynamic Standing Balance Dynamic Standing-Balance Support: No upper extremity supported(WW within reach) Dynamic Standing-Balance: Lateral lean, Forward lean, Reaching for objects Dynamic Standing-Standing Surface: Floor Dynamic Standing-Level of Assistance: Close supervision Dynamic Standing-Comments: Safety Transfers Transfers Transfer: Yes(Gait belt worn for all OOB activities/ADLs) Transfer 1 Transfer From 1: Sit, Bed Transfer Type 1: To and from Transfer to 1: Stand Technique 1: Sit to stand, Stand to sit Transfer Device 1: Wheeled walker Transfer Level of Assistance 1: Standby Assist Trials/Comments 1: Safety and verbal cueing for WW/B UE placement Transfers 2 Transfer From 2: Stand Transfer Type 2: To and from Transfer to 2: Sit, Toilet Technique 2: Stand to sit, Sit to stand Transfer Device 2: Wheeled walker Transfer Level of Assistance 2: Minimum Assist Trials/Comments 2: Force production, controlled descent, verbal cueing for WW/B UE placement Transfers 3 Transfer From 3: Sit, Bed Transfer Type 3: To Transfer to 3: Stand Technique 3: Sit to stand Transfer Device 3: No device Transfer Level of Assistance 3: Contact Guard Assist Trials/Comments 3: Safety Transfers 4 Transfer From 4: Stand Transfer Type 4: To Transfer to 4: Sit, Chair with arms Technique 4: Stand to sit Transfer Device 4: No device Transfer Level of Assistance 4: Contact Guard Assist Trials/Comments 4: Safety Bed Mobility Bed Mobility Bed Mobility: Yes Bed Mobility 1 Bed Mobility From 1: Supine Bed Mobility Type 1: To and from Bed Mobility to 1: Edge of bed Level of Assistance 1: Standby Assist Bed Mobility Comments 1: Safety and verbal cueing for technique RUE Assessment RUE Assessment RUE Assessment: Within Functional Limits LUE Assessment LUE Assessment LUE Assessment: Within Functional Limits Other Comments Other Comments Comments: Treatment consisted of demonstration/education of cervical precautions during ADLs/functional transfers and safe use WW during functional transfers/ADL training. OTS wore PPE (mask, gloves,goggles). Pt ambulated to/from bathroom with SBA for safety with WW. Pt appears agreeable to dc options IP or SNF d/t pt determined unsafe to be home w/o 24 hour sup, which is not available OT Goals Multi-Disciplinary Problems (from Occupational Therapy) Active Problems Problem: Dressing Upper Extremities Start Date: 09/14/20 Goal Start Date End Date STG - Patient will dress upper body 09/14/20 -- Goal Details: With mod I Problem: Toileting Start Date: 09/14/20 Goal Start Date End Date STG - Patient will complete toileting tasks with 09/14/20 -- Goal Details: With sup Problem: Transfers Start Date: 09/14/20 Goal Start Date End Date STG - Patient will perform toilet transfer 09/14/20 -- Goal Details: To toilet with sup Problem: Precautions Start Date: 09/14/20 Goal Start Date End Date STG - Patient will demonstrate precautions consistently during ADL tasks/functional mobility. 09/14/20 -- Goal Details: With <1 verbal cue/task Problem: OT Misc Start Date: 09/14/20 Goal Start Date End Date OT LTG - Misc 1 09/14/20 -- Goal Details: Pt will complete all ADL tasks with mod I Problem: Dressings Lower Extremities Start Date: 09/14/20 Goal Start Date End Date STG - Patient to complete lower body dressing 09/14/20 -- Goal Details: With mod I Cosigned by Mabel Jacques OT at 09/15/2020 7:41 AM HEALTH AND FITNESS PROFESSOR TH AND FITNESS PROFESSOR TH AND FITNESS PROFESSOR * Bettye Robertson NP - 09/14/2020 7:13 AM CST [facility] Daily Progress Note Admit: 09/10/2020 7:08 PM Date: September 14, 2020 Length of Stay: 4 Attending: Debby Hebert,* POD:* No surgery found * History: Phoebe Hillman is a 79 y.o. female with a past medical history of HTN, COPD (on 4L O2 at home), GERD, melena, obesity, and previous hysterectomy who presented to the [facility] ED with neck pain after several falls. The patient stated she had sustained several falls over the past week; she fell again one day prior to arrival, went to bed and continued to have pain upon waking up. The patient denied tripping or having presyncopal symptoms prior to the falls. [facility] imaging demonstrated a C1-C2 fracture and she was transferred to the [facility] ED for further treatment. On arrival, the patient was alert and oriented. Exam demonstrated an obese female, abrasion to the left forehead, mild tenderness to palpation to the coccyx and ecchymosis to left buttock, left forearm ecchymosis, and intact strength and sensation to all extremities. Imaging demonstrated a Type III odontoid fracture and fractures of the right and left posterior arches of C1, unchanged compression deformities involving T12 and T11 and to a lesser extent T10. CTA demonstrated a dominant right vertebral artery, no injury tothe vertebral or carotid arteries. An incidental finding of a 2 cm right thyroid nodule was also noted. An MRI was obtained and demonstrated an Odontoid fracture with prevertebral fluid collection and sprain of nuchal ligament; possible injury of other craniocervical ligaments, left vertebral artery irregularity in the V2/V3 segment. Neurosurgery was consulted. The patient was admitted to the [facility] for further treatment. Interval History: NAEON. MRI completed and unchanged. Pending Neurosurgery sign off recs. PT/OT fordispo planning. 09/13: No acute events over night, orthostatics negative this am, plan for therapy for DC planning today 09/12: Repeat MRI C spine per NSGY. Lovenox resumed for dvt ppx. Swallow eval pending 09/11: [place] J collar placed on pt. Pain well managed. Likely non-op but will f/u with NSG. Telemetryand Orthostatics ordered. PERSONNEL ASSOCIATE consult ordered for difficulty swallowing. Pain:controlled Nausea: No Flatus: No Bowel Movement: 09/13 Medications: Current Facility-Administered Medications: ??? acetaminophen (TYLENOL) tablet 1,000 mg, 1,000 mg, oral, Q8H, Jacquelyn Huston MD, 1,000 mg at 09/14/20 0406 ??? albuterol HFA (PROVENTIL HFA,VENTOLIN HFA,PROAIR HFA) 90 mcg/actuation inhaler 2 puff, 2 puff, inhalation, Q4H PRN (RT), Jacquelyn Huston MD ??? amitriptyline (ELAVIL) tablet 25 mg, 25 mg, oral, Daily, Poor, Addis Wen NP, 25 mg at 09/13/20 0948 ??? busPIRone (BUSPAR) tablet 10 mg, 10 mg, oral, BID, Jacquelyn Huston MD, 10 mg at 09/13/202043 ??? cholecalciferol (VITAMIN D-3) capsule 2,000 Units, 2,000 Units, oral, Daily, Jacquelyn Huston MD, 2,000 Units at 09/13/20957 ??? clonazePAM (KlonoPIN) tablet 1 mg, 1 mg, oral, Nightly, Poor, Addis Wen NP, 1 mg at 09/13/202043 ??? enoxaparin (LOVENOX) syringe 30 mg, 30 mg, subcutaneous, Q12H CHET, Rohini, Inga Holcomb NP, 30 mg at 09/13/202043 ??? ferrous sulfate tablet 325 mg, 65 mg of elemental iron, oral, BID with meals (bkfst, dinner), Jacquelyn Huston MD, 325 mg at 09/13/20 1740 ??? fluticasone furoate-vilanteroL (BREO ELLIPTA) 100-25 mcg/dose inhaler 1 puff, 1 puff, inhalation, Daily (RT), Jacqeulyn Huston MD, 1 puff at 09/13/20 1040 ??? hydroCHLOROthiazide (HYDRODIURIL) tablet 12.5 mg, 12.5 mg, oral, Daily, Jacquelyn Huston MD, 12.5 mgat 09/13/20957 ??? metoprolol XL (TOPROL-XL) extended release tablet 100 mg, 100 mg, oral, Daily, Jacquelyn Huston MD, 100 mg at 09/13/20 09 ??? montelukast (SINGULAIR) tablet 10 mg, 10 mg, oral, Nightly, Jacquelyn Huston MD, 10 mg at 09/13/202043 ??? oxyCODONE (ROXICODONE) tablet 5 mg, 5 mg, oral, Q4H PRN, Jacquelyn Huston MD, 5 mg at 09/14/20 0406 ??? pantoprazole DR (PROTONIX) extended release tablet 40 mg, 40 mg, oral, Daily, Jacquelyn Huston MD, 40 mg at 09/13/20957 ??? sodium chloride 0.9% flush 0.5-20 mL, 0.5-20 mL, intra-catheter, Q8H CHET, Jacquelyn Huston MD, 10 mLat 09/14/20 0406 ??? sodium chloride 0.9% flush 0.5-20 mL, 0.5-20 mL, intra-catheter, PRN, Jacquelyn Huston MD ??? umeclidinium (INCRUSE ELLIPTA) 62.5 mcg/actuation inhaler 62.5 mcg, 1 puff, inhalation, Daily (RT), Jacquelyn Huston MD, 62.5 mcg at 09/13/20 1040 Diet: Dietary Orders (From admission, onward) Start Ordered 09/13/20 1340 Adult Diet Regular Diet effective now Question: ([facility]) Diet type Answer: Regular 09/13/20 1339 Activity: cervical precautions Is&Os: I/O last 2 completed shifts: In: - Out: 775 [Urine:775] I/O this shift: In: - Out: 50 [Urine:50] Physical Exam: 24hr Min/Max: Temp Min: 36.4 ??C (97.5 ??F) Max: 37.3 ??C (99.1 ??F) Pulse Min: 75 Max: 99 BP Min: 130/61 Max: 181/95 Resp Min: 16 Max: 22 SpO2 Min: 94 % Max: 100 % Vitals: 09/14/20 0342 BP: 148/84 Pulse: 95 Resp: 20 Temp: 36.6 ??C (97.9 ??F) SpO2: 98% Constitutional: cooperative and no apparent distress Head: atraumatic Neurologic: alert and oriented x4 sensation intact all extremities motor 5/5 all extremities Eyes: conjunctivae/corneas clear. PERRL HENT: external aural meatus intact with no visable drainage from the ear Neck: cervical collar in place Chest: normal appearance, no masses or tenderness Respiratory: normal chest rise and fall and diminished breath sounds bilateral Cardiovascular: regular rate and rhythm, S1, S2 normal, no murmur, click, rub or gallop Gastrointestinal: soft, non-tender; bowel sounds present; no masses, no organomegaly Musculoskeletal: extremities normal, warm and well-perfused Pulses: radial: bilateral normal Skin: skin color, texture, turgor normal. No rashes or lesions Labs/Imaging: Recent Results (from the past 72 hour(s)) CBC without differential Collection Time: 09/12/20 1:03 AM Result Value Ref Range WBC 5.4 3.8 - 9.9 K/cumm Hgb 10.6 (L) 11.9 - 15.5 g/dL Hct 35.9 35.6 - 45.5 % Plt 224 150 - 400 K/cumm MPV 10.0 9.1 - 12.3 fL RBC 4.35 3.90 - 5.20 M/cumm MCV 82.5 81.3 - 96.4 fL MCH 24.4 (L) 27.1 - 33.3 pg MCHC 29.5 (L) 32.3 - 35.7 g/dL RDW CV 22.7 (H) 11.1 - 14.9 % RDW SD 67.6 (H) 35.7 - 48.1 fL NRBC abs 0.00 0.00 - 0.01 K/cumm Magnesium Collection Time: 09/12/20 1:03 AM Result Value Ref Range Magnesium 2.0 1.4 - 2.5 mg/dL Phosphorus Collection Time: 09/12/20 1:03 AM Result Value Ref Range Phosphorus, pl 2.6 2.3 - 4.5 mg/dL Basic metabolic panel Collection Time: 09/12/20 1:03 AM Result Value Ref Range Sodium 143 135 - 145 mmol/L Potassium, pl 3.5 3.3 - 4.9 mmol/L Chloride 99 97 - 110 mmol/L CO2 39 (H) 22 - 32 mmol/L Anion gap 5 2 - 15 mmol/L BUN 8 8 - 25 mg/dL Creatinine 0.40 (L) 0.60 - 1.10 mg/dL Glucose 125 70 - 199 mg/dL Calcium 9.4 8.5 - 10.3 mg/dL Xr Spine Cervical 2 Or 3 Views Result Date: 09/10/2020 1. Displaced fracture through the posterior elements of C1 with subtle irregularity/step off along the posterior aspect of the dens may correlate to the patient's reported C1 and C2 fractures. 2. Unchanged compression deformities involving T12 and T11 and to a lesser extent T10. 3. No definite fracture involving the lumbar spine, sacrum, coccyx, and pelvis. Dictated by: Caitlin Monet M.D. The radiology attending physician has personally reviewed this study, and had reviewed and/or editedthis written report and agrees with it. Electronically signed by: Altaf Ascencio M.D. Xr Spine Thoracic 3 Vw Result Date: 09/10/2020 1. Displaced fracture through the posterior elements of C1 with subtle irregularity/step off along the posterior aspect of the dens may correlate to the patient's reported C1 and C2 fractures. 2. Unchanged compression deformities involving T12 and T11 and to a lesser extent T10. 3. No definite fracture involving the lumbar spine, sacrum, coccyx, and pelvis. Dictated by: Caitlin Monet M.D. The radiology attending physician has personally reviewed this study, and had reviewed and/or editedthis written report and agrees with it. Electronically signed by: Altaf Ascencio M.D. Xr Spine Lumbar 2 Or 3 Views Result Date: 09/10/2020 1. Displaced fracture through the posterior elements of C1 with subtle irregularity/step off along the posterior aspect of the dens may correlate to the patient's reported C1 and C2 fractures. 2. Unchanged compression deformities involving T12 and T11 and to a lesser extent T10. 3. No definite fracture involving the lumbar spine, sacrum, coccyx, and pelvis. Dictated by: Caitlin Monet M.D. The radiology attending physician has personally reviewed this study, and had reviewed and/or editedthis written report and agrees with it. Electronically signed by: Altaf Ascencio M.D. Xr Sacrum Coccyx 2 Or More Views Result Date: 09/10/2020 1. Displaced fracture through the posterior elements of C1 with subtle irregularity/step off along the posterior aspect of the dens may correlate to the patient's reported C1 and C2 fractures. 2. Unchanged compression deformities involving T12 and T11 and to a lesser extent T10. 3. No definite fracture involving the lumbar spine, sacrum, coccyx, and pelvis. Dictated by: Caitlin Monet M.D. The radiology attending physician has personally reviewed this study, and had reviewed and/or editedthis written report and agrees with it. Electronically signed by: Altaf Ascencio M.D. Cta Neck W Wo Contrast Result Date: 09/11/2020 1. Right vertebral artery is dominant. No angiographic evidence of injury to the vertebral arteriesor carotid arteries. 2. Type III odontoid fracture and fractures of the right and left posterior arches of C1. 3. 2 cm right thyroid nodule. If clinically warranted, this could be evaluated on a nonemergent basis with outpatient ultrasound. Dictated by: Angelica Salcedo M.D. Mri Cervical Spine Wo Contrast Result Date: 09/10/2020 1. Severely motion degraded study. 2. Odontoid fracture with prevertebral fluid collection and sprain of nuchal ligament; possible injury of other craniocervical ligaments which is difficult to evaluate due to motion artifact. Recommend follow-up when the patient able to tolerate MRI. 3. Left vertebral artery irregularity in the V2/V3 segment, further evaluation with CT angiography is recommended. Recommend CT cervical spine reconstructions from CTA study to better evaluate fractures. 4. Thyroid nodules for which further evaluation with ultrasound is recommended. Findings discussed with Dr. Boston at 10:53 PM to 09/10/2020. Dictated by: Miguel Henriquez MD, PHD The radiology attending physician has personally reviewed this study, and had reviewed and/or edited this written report and agreeswith it. Electronically signed by: Makenna Martinez M.D. Xr Pelvis 1 Or 2 Views Result Date: 09/10/2020 1. Displaced fracture through the posterior elements of C1 with subtle irregularity/step off along the posterior aspect of the dens may correlate to the patient's reported C1 and C2 fractures. 2. Unchanged compression deformities involving T12 and T11 and to a lesser extent T10. 3. No definite fracture involving the lumbar spine, sacrum, coccyx, and pelvis. Dictated by: Caitlin Monet M.D. The radiology attending physician has personally reviewed this study, and had reviewed and/or editedthis written report and agrees with it. Electronically signed by: Altaf Ascencio M.D. Assessment and Plan: Active Problems: Chronic obstructive pulmonary disease with acute exacerbation (CMS/HCC) HTN (hypertension) GERD (gastroesophageal reflux disease) Closed odontoid fracture with type III morphology (CMS/HCC) Acute pain due to trauma Anxiety Chronic congestive heart failure (CMS/HCC) Depression Pulmonary hypertension, moderate to severe (CMS/HCC) Sleep apnea Syncope #Type III Odontoid fracture: - Neurosurgery consulted - Cervical spine precautions - Maintain cervical spine collar - Pain control - OK for DVT PPX - Q4H NV checks - Repeat MRI: Grossly unchanged type III odontoid fracture with associated prevertebral edema and nuchal ligament sprain - PT/OT #Syncope: - Continuous telemetry - 09/13: Orthostatics negative - Possible polypharmacy related #Acute Pain due to Trauma: - Tylenol 1000 mg Q8H - Oxycodone 5 mg Q4H PRN #HTN: - HCTZ 12.5 mg / day - Metoprolol XL 100 mg / day #COPD: - Continue to maintain at 4L of home O2 - Albuterol + Fluticasone inhaler - Telemetry for O2 monitoring #Depression/Anxiety: - 09/12: Clonazepam and Elavil restarted - Restoril on hold #DVT ppx: Lovenox #Dispo: Pending Bettye Robertson NP Cosigned by Morgan Bronson MD at 09/26/2020 5:55 AM HEALTH AND FITNESS PROFESSOR TH AND FITNESS PROFESSOR TH AND FITNESS PROFESSOR Associated attestation - Morgan Bronson MD - 09/26/2020 5:55 AM HEALTH AND FITNESS PROFESSOR I have seen and examined the patient on 09/14/2020 in conjunction with the non- physician provider. History: Multiple falls with spine fractures Physical Exam: Alert and orient x4 Lab/Radiology/Diagnostics Review: Assessment/Plan [place] J Collar PT OT Pain control MRI unchanged * Marnie Ross RN - 09/14/2020 3:25 AM CST Assessment of patient???s baseline is established at the beginning of the shift in flowsheets. Patient reassessed per order, unexpected findings and/or deviations from baseline are captured in flowsheets. Frequent safety checks and comfort rounds provided. Orders and/or nursing care completed as indicated. Patient monitored for response to interventions and treatments as documented in flowsheets.Goals for the shift are pain control, rest, monitor neuro status. Education provided includes Fall Prevention, Pain Management, Self-Care: bathing and Skin Breakdown Prevention/Treatment. Patient Verbalizes understanding. Will continue to monitor. TH AND FITNESS PROFESSOR * Lloyd Ivonne, PT - 09/13/2020 11:01 AM CST Physical Therapy Physical Therapy Initial Assessment NOTE: This is a summary note for the giron assessments completed during the evaluation session. For full details, review chart review for all flowsheets documented on by this physical therapist on thisdate. Vital signs documented in vital signs flowsheet. Assessment Assessment Prognosis: Good Problem List: Gait deviations, Decreased strength, Impaired balance, Decreased mobility, Orthopedicrestrictions, Pain Problem List Comments: PT Diagnosis: fall resulting in C1 B posterior arch fx, C2 type 3 dens fx results in above listed activity deficits and impairments which prevent full participation in home andcommunity mobility Plan Plan Plan : Plan of care initiated, If this is the last note, consider this the discharge summary PT Recommendation and Plan Recommendation/Plan PT Recommendation/Plan: Inpatient Rehab Facility PT Frequency: 3-5x/wk Treatment/Interventions: Balance Training, Bed mobility, Functional activity, Functional transfer training, Gait training, Positioning, Positioning equipment, Stair training, Strengthening, Therapeutic activity, Therapeutic exercise, Transfer training PT - Next Appointment: 09/15/20 PT Evaluation Complete: Yes General Information General Chart Reviewed: Yes Session Type: Evaluation PT Received On: 09/13/20 Safe Environment: Arm Band Checked, Call Light within Reach, Notified RN Subjective: Agreeable to Therapy Subjective Comment: My daughter brought the walker up from the basement, I'm going to use it Family/Caregiver Present: No Physical Therapy-Patient Goal: Pt would prefer to return home Prior Function Prior Function Level of [place]: Independent with ADLs, Independent functional transfers, Independent with ambulation, Needs assistance with homemaking(w/ falls) Lives With: Other (Comment)(Ex-, somewhat helpful ) Receives Help From: Family Driving: No Vocational/Occupation: Retired Fall within the last 6 months: Yes Fall within the last 6 months comment: 8-9 legs just quit Home Living Home Living Type of Home: House Home Layout: One level Home Access: Stairs to enter with rails Entrance Stairs-Rails: Right Entrance Stairs-Number of Steps: 8(Daugher assists up and down the steps) Home Mobility Equipment: 4-Wheeled walker Precautions Precautions Precautions: Cervical spine, Fall risk Weight Bearing Restrictions: No Pain Pain Assessment Pain Assessment: 0-10 Pain Score: 7 Pain Location: Back (Cervical) Pain Interventions: RN Notified Cognition Cognition Arousal/Alertness: Alert, Appropriate responses to [...] need: Climbing 3-5 steps with a railing?: Total Total 6 Click Score (range 6-24): 16 Score Interpretation: 18 Bed Mobility Bed Mobility Bed Mobility: Yes Bed Mobility 1 Bed Mobility From 1: Supine Bed Mobility Type 1: To Bed Mobility to 1: Side lying-left Level of Assistance 1: Minimum Assist Bed Mobility Comments 1: HOB flat Bed Mobility 2 Bed Mobility From 2: Side lying-left Bed Mobility Type 2: To Bed Mobility to 2: Edge of Bed Level of Assistance 2: Minimum Assist Bed Mobility Comments 2: HOB flat Transfers Transfers Transfer: Yes Transfer 1 Transfer From 1: Sit Transfer Type 1: To and from Transfer to 1: Stand Technique 1: Sit to stand, Stand to sit Transfer Device 1: Hand held assist Transfer Level of Assistance 1: Minimum Assist Trials/Comments 1: From EOB, BSC, and bedside chair Transfers 2 Transfer From 2: Bed Transfer Type 2: To Transfer to 2: Commode-standard Technique 2: Stand pivot Transfer Device 2: Hand held assist Transfer Level of Assistance 2: Minimum Assist Transfers 3 Transfer From 3: Commode-standard Transfer Type 3: To Transfer to 3: Chair with arms Technique 3: Stand pivot Transfer Device 3: Hand held assist Transfer Level of Assistance 3: Minimum Assist Balance Static Sitting Balance Static Sitting-Balance Support: Feet supported Static Sitting-Sitting Surface: Bed Static Sitting-Level of Assistance: Independent Dynamic Sitting Balance Dynamic Sitting-Balance Support: Feet supported Dynamic Sitting-Balance: Lateral lean, Forward lean Dynamic Sitting-Sitting Surface: (Bedside commode) Dynamic Sitting-Level of Assistance: Close supervision Static Standing Balance Static Standing-Balance Support: Unilateral upper extremity supported Static Standing-Standing Surface: Floor Static Standing-Level of Assistance: Minimum assistance Ambulation Ambulation Ambulation: No(declined due to pain, RN to bedside with pain medication) Stairs Stairs Stairs: No RLE Assessment RLE Assessment RLE Assessment: Within Functional Limits LLE Assessment LLE Assessment LLE Assessment: Within Functional Limits Equipment Used Equipment Use Equipment Use Comments: Gait belt donned PT Goals Multi-Disciplinary Problems (from Physical Therapy) Active Problems Problem: Mobility Start Date: 09/13/20 Goal Start Date End Date LTG - Patient will ambulate household distance 09/13/20 -- Goal Start Date End Date STG - Patient will ambulate 09/13/20 -- Goal Details: 50ft Min A with wheeled walker Problem: Transfers Start Date: 09/13/20 Goal Start Date End Date STG - Transfer from bed to chair 09/13/20 -- Goal Details: SBA Goal Start Date End Date STG - Patient will perform bed mobility 09/13/20 -- Goal Details: Mod I Goal Start Date End Date STG - Patient will transfer sit to and from stand 09/13/20 -- Goal Details: Supine <> Sidelying <> Sitting (I) TH AND FITNESS PROFESSOR * Tabitha Maki NP - 09/13/2020 7:35 AM CST [facility] Daily Progress Note Admit: 09/10/2020 7:08 PM Date: September 13, 2020 Length of Stay: 3 Attending: Debby Hebert,* POD:* No surgery found * History: Phoebe Hillman is a 79 y.o. female with a past medical history of HTN, COPD (on 4L O2 at home), GERD, melena, obesity, and previous hysterectomy who presented to the [facility] ED with neck pain after several falls. The patient stated she had sustained several falls over the past week; she fell again one day prior to arrival, went to bed and continued to have pain upon waking up. The patient denied tripping or having presyncopal symptoms prior to the falls. OSH imaging demonstrated a C1-C2 fracture and she was transferred to the [facility] ED for further treatment. On arrival, the patient was alert and oriented. Exam demonstrated an obese female, abrasion to the left forehead, mild tenderness to palpation to the coccyx and ecchymosis to left buttock, left forearm ecchymosis, and intact strength and sensation to all extremities. Imaging demonstrated a Type III odontoid fracture and fractures of the right and left posterior arches of C1, unchanged compression deformities involving T12 and T11 and to a lesser extent T10. CTA demonstrated a dominant right vertebral artery, no injury tothe vertebral or carotid arteries. An incidental finding of a 2 cm right thyroid nodule was also noted. An MRI was obtained and demonstrated an Odontoid fracture with prevertebral fluid collection and sprain of nuchal ligament; possible injury of other craniocervical ligaments, left vertebral artery irregularity in the V2/V3 segment. Neurosurgery was consulted. The patient was admitted to the [facility] for further treatment. Interval History: 09/13: No acute events over night, orthostatics negative this am, plan for therapy for DC planning today 09/12: Repeat MRI C spine per NSGY. Lovenox resumed for dvt ppx. Swallow eval pending 09/11: [place] J collar placed on pt. Pain well managed. Likely non-op but will f/u with NSG. Telemetryand Orthostatics ordered. PERSONNEL ASSOCIATE consult ordered for difficulty swallowing. Pain:controlled Nausea: No Flatus: No Bowel Movement: 09/13 Medications: Current Facility-Administered Medications: ??? acetaminophen (TYLENOL) tablet 1,000 mg, 1,000 mg, oral, Q8H, Jacquelyn Huston MD, 1,000 mg at 09/12/201825 ??? albuterol HFA (PROVENTIL HFA,VENTOLIN HFA,PROAIR HFA) 90 mcg/actuation inhaler 2 puff, 2 puff, inhalation, Q4H PRN (RT), Jacquelyn Huston MD ??? amitriptyline (ELAVIL) tablet 25 mg, 25 mg, oral, Daily, Poor, Addis Wen NP ??? busPIRone (BUSPAR) tablet 10 mg, 10 mg, oral, BID, Jacquelyn Huston MD, 10 mg at 09/12/202154 ??? cholecalciferol (VITAMIN D-3) capsule 2,000 Units, 2,000 Units, oral, Daily, Jacquelyn Huston MD, 2,000 Units at 09/12/20937 ??? clonazePAM (KlonoPIN) tablet 1 mg, 1 mg, oral, Nightly, Poor, Addis Wen NP, 1 mg at 09/13/20 0106 ??? enoxaparin (LOVENOX) syringe 30 mg, 30 mg, subcutaneous, Q12H CHET, Inga Nova NP, 30 mg at 09/12/202154 ??? ferrous sulfate tablet 325 mg, 65 mg of elemental iron, oral, BID with meals (bkfst, dinner), Jacquelyn Huston MD, 325 mg at 09/12/20 1826 ??? fluticasone furoate-vilanteroL (BREO ELLIPTA) 100-25 mcg/dose inhaler 1 puff, 1 puff, inhalation, Daily (RT), Jacquelyn Huston MD, 1 puff at 09/12/20 0859 ??? hydroCHLOROthiazide (HYDRODIURIL) tablet 12.5 mg, 12.5 mg, oral, Daily, Jacquelyn Huston MD, 12.5 mgat 09/12/20 0937 ??? metoprolol XL (TOPROL-XL) extended release tablet 100 mg, 100 mg, oral, Daily, Jacquelyn Huston MD, 100 mg at 09/12/20937 ??? montelukast (SINGULAIR) tablet 10 mg, 10 mg, oral, Nightly, Jacquelyn Huston MD, 10 mg at 09/12/202154 ??? oxyCODONE (ROXICODONE) tablet 5 mg, 5 mg, oral, Q4H PRN, Jacquelyn Huston MD, 5 mg at 09/13/20 0638 ??? pantoprazole DR (PROTONIX) extended release tablet 40 mg, 40 mg, oral, Daily, Jacquelyn Huston MD, 40 mg at 09/12/20 0937 ??? sodium chloride 0.9% flush 0.5-20 mL, 0.5-20 mL, intra-catheter, Q8H CHET, Jacquelyn Huston MD, 10 mLat 09/12/20 2156 ??? sodium chloride 0.9% flush 0.5-20 mL, 0.5-20 mL, intra-catheter, PRN, Jacquelyn Huston MD ??? umeclidinium (INCRUSE ELLIPTA) 62.5 mcg/actuation inhaler 62.5 mcg, 1 puff, inhalation, Daily (RT), Jacquelyn Huston MD, 62.5 mcg at 09/12/20 0859 Diet: Dietary Orders (From admission, onward) Start Ordered 09/13/20 0001 NPO Diet Diet effective midnight Comments: NPO midnight in case NSGY recommends operative management based on latest films. May havedinner this evening. 09/12/20 1804 Activity: cervical precautions Is&Os: I/O last 2 completed shifts: In: - Out: 2049 [Urine:2049] No intake/output data recorded. Physical Exam: 24hr Min/Max: Temp Min: 36.4 ??C (97.5 ??F) Max: 36.8 ??C (98.2 ??F) Pulse Min: 66 Max: 92 BP Min: 151/84 Max: 186/95 Resp Min: 20 Max: 28 SpO2 Min: 97 % Max: 100 % Vitals: 09/13/20 0515 BP: 155/83 Pulse: 85 Resp: 22 Temp: 36.8 ??C (98.2 ??F) SpO2: 97% Constitutional: cooperative and no apparent distress Head: atraumatic Neurologic: alert and oriented x4 sensation intact all extremities motor 5/5 all extremities Eyes: conjunctivae/corneas clear. PERRL HENT: external aural meatus intact with no visable drainage from the ear Neck: cervical collar in place Chest: normal appearance, no masses or tenderness Respiratory: normal chest rise and fall and diminished breath sounds bilateral Cardiovascular: regular rate and rhythm, S1, S2 normal, no murmur, click, rub or gallop Gastrointestinal: soft, non-tender; bowel sounds present; no masses, no organomegaly Musculoskeletal: extremities normal, warm and well-perfused Pulses: radial: bilateral normal Skin: skin color, texture, turgor normal. No rashes or lesions Labs/Imaging: Recent Results (from the past 72 hour(s)) Comprehensive metabolic panel Collection Time: 09/10/20 7:55 PM Result Value Ref Range Sodium 144 135 - 145 mmol/L Potassium, pl 3.6 3.3 - 4.9 mmol/L Chloride 100 97 - 110 mmol/L CO2 39 (H) 22 - 32 mmol/L Anion gap 5 2 - 15 mmol/L BUN 12 8 - 25 mg/dL Creatinine 0.38 (L) 0.60 - 1.10 mg/dL Glucose 112 70 - 199 mg/dL Calcium 8.6 8.5 - 10.3 mg/dL Bilirubin, total 0.4 0.1 - 1.2 mg/dL Protein, pl 6.4 (L) 6.5 - 8.5 g/dL Albumin 3.3 (L) 3.5 - 5.0 g/dL Alk phos 87 40 - 130 Units/L ALT 14 7 - 45 Units/L AST 21 10 - 45 Units/L Protime-INR Collection Time: 09/10/20 7:55 PM Result Value Ref Range PT 11.5 9.5 - 13.6 sec INR 1.0 0.9 - 1.2 aPTT Collection Time: 09/10/20 7:55 PM Result Value Ref Range aPTT 27 27 - 37 sec Urinalysis reflex to microscopic and culture Urine Collection Time: 09/10/20 7:55 PM Specimen: Urine Result Value Ref Range Color, ur Yellow Yellow Clarity, ur Cloudy (A) Clear Specific gravity, ur 1.013 1.010 - 1.025 pH, urine 9 Protein, ur ql 1+ (A) Negative Glucose, ur ql Negative Negative Ketones, ur 1+ (A) Negative Bilirubin, ur Negative Negative Blood, ur 2+ (A) Negative Urobilinogen, ur <2.0 <2.0 mg/dL Nitrite, ur Negative Negative Leukocyte esterase, ur Negative Negative UA reflex comment Reflex to microscopic UA will be performed. Type and screen Collection Time: 09/10/20 7:55 PM Result Value Ref Range Sheng, indirect Negative ABO Rh A Positive COVID-19 Coronavirus RNA Nasopharyngeal Collection Time: 09/10/20 7:55 PM Specimen: Nasopharyngeal Result Value Ref Range COVID-19 RNA Not Detected First COVID-19 test? No Employeed in healthcare? No status? No Group care resident? No Hospitalized? No Is patient in ICU? No Symptomatic as defined by CDC? No Urinalysis, microscopic only Collection Time: 09/10/20 7:55 PM Result Value Ref Range WBC, ur 6-10 (A) 0 - 5 /HPF RBC, ur >50 (A) 0 - 2 /HPF Epithelial cells, squamous, ur 1-5 0 - 5 /HPF Mucous, ur Present (A) Amorphous crystals, ur Trace (A) Culture Reflex Comment Reflex conditions for urine culture (WBC >10) not met. CBC with auto differential Collection Time: 09/10/20 9:24 PM Result Value Ref Range WBC 6.2 3.8 - 9.9 K/cumm Hgb 9.5 (L) 11.9 - 15.5 g/dL Hct 32.7 (L) 35.6 - 45.5 % Plt 205 150 - 400 K/cumm MPV 10.1 9.1 - 12.3 fL RBC 3.79 (L) 3.90 - 5.20 M/cumm MCV 86.3 81.3 - 96.4 fL MCH 25.1 (L) 27.1 - 33.3 pg MCHC 29.1 (L) 32.3 - 35.7 g/dL RDW CV 22.4 (H) 11.1 - 14.9 % RDW SD 69.2 (H) 35.7 - 48.1 fL NRBC abs 0.00 0.00 - 0.01 K/cumm Differential, auto Collection Time: 09/10/20 9:24 PM Result Value Ref Range Neutrophil abs 4.7 1.7 - 6.5 K/cumm Imm gran abs 0.0 0.0 - 0.1 K/cumm Lymphocyte abs 0.9 0.8 - 3.3 K/cumm Monocyte abs 0.6 0.2 - 0.8 K/cumm Eosinophil abs 0.0 0.0 - 0.5 K/cumm Basophil abs 0.0 0.0 - 0.1 K/cumm Neutrophil pct 75.9 % Imm gran pct 0.3 % Lymphocyte pct 14.5 % Monocyte pct 8.9 % Eosinophil pct 0.2 % Basophil pct 0.2 % ECG 12 lead Collection Time: 09/11/20 4:19 AM Result Value Ref Range Ventricular Rate EKG/Min 83 BPM Atrial Rate 83 BPM AR-Interval (MSEC) 130 ms QRS-Interval (MSEC) 70 ms QT-Interval (MSEC) 340 ms QTc 399 ms P [place] 14 degrees R [place] 6 degrees T [place] 6 degrees Diagnosis Normal sinus rhythm Normal ECG No previous ECGs available Confirmed by CECILIO MCMAHON M.D ([id number]) on 09/12/2020 2:53:06 PM CBC without differential Collection Time: 09/12/20 1:03 AM Result Value Ref Range WBC 5.4 3.8 - 9.9 K/cumm Hgb 10.6 (L) 11.9 - 15.5 g/dL Hct 35.9 35.6 - 45.5 % Plt 224 150 - 400 K/cumm MPV 10.0 9.1 - 12.3 fL RBC 4.35 3.90 - 5.20 M/cumm MCV 82.5 81.3 - 96.4 fL MCH 24.4 (L) 27.1 - 33.3 pg MCHC 29.5 (L) 32.3 - 35.7 g/dL RDW CV 22.7 (H) 11.1 - 14.9 % RDW SD 67.6 (H) 35.7 - 48.1 fL NRBC abs 0.00 0.00 - 0.01 K/cumm Magnesium Collection Time: 09/12/20 1:03 AM Result Value Ref Range Magnesium 2.0 1.4 - 2.5 mg/dL Phosphorus Collection Time: 09/12/20 1:03 AM Result Value Ref Range Phosphorus, pl 2.6 2.3 - 4.5 mg/dL Basic metabolic panel Collection Time: 09/12/20 1:03 AM Result Value Ref Range Sodium 143 135 - 145 mmol/L Potassium, pl 3.5 3.3 - 4.9 mmol/L Chloride 99 97 - 110 mmol/L CO2 39 (H) 22 - 32 mmol/L Anion gap 5 2 - 15 mmol/L BUN 8 8 - 25 mg/dL Creatinine 0.40 (L) 0.60 - 1.10 mg/dL Glucose 125 70 - 199 mg/dL Calcium 9.4 8.5 - 10.3 mg/dL Xr Spine Cervical 2 Or 3 Views Result Date: 09/10/2020 1. Displaced fracture through the posterior elements of C1 with subtle irregularity/step off along the posterior aspect of the dens may correlate to the patient's reported C1 and C2 fractures. 2. Unchanged compression deformities involving T12 and T11 and to a lesser extent T10. 3. No definite fracture involving the lumbar spine, sacrum, coccyx, and pelvis. Dictated by: Caitlin Monet M.D. The radiology attending physician has personally reviewed this study, and had reviewed and/or editedthis written report and agrees with it. Electronically signed by: Altaf Ascencio M.D. Xr Spine Thoracic 3 Vw Result Date: 09/10/2020 1. Displaced fracture through the posterior elements of C1 with subtle irregularity/step off along the posterior aspect of the dens may correlate to the patient's reported C1 and C2 fractures. 2. Unchanged compression deformities involving T12 and T11 and to a lesser extent T10. 3. No definite fracture involving the lumbar spine, sacrum, coccyx, and pelvis. Dictated by: Caitlin Monet M.D. The radiology attending physician has personally reviewed this study, and had reviewed and/or editedthis written report and agrees with it. Electronically signed by: Altaf Ascencio M.D. Xr Spine Lumbar 2 Or 3 Views Result Date: 09/10/2020 1. Displaced fracture through the posterior elements of C1 with subtle irregularity/step off along the posterior aspect of the dens may correlate to the patient's reported C1 and C2 fractures. 2. Unchanged compression deformities involving T12 and T11 and to a lesser extent T10. 3. No definite fracture involving the lumbar spine, sacrum, coccyx, and pelvis. Dictated by: Caitlin Monet M.D. The radiology attending physician has personally reviewed this study, and had reviewed and/or editedthis written report and agrees with it. Electronically signed by: Altaf Ascencio M.D. Xr Sacrum Coccyx 2 Or More Views Result Date: 09/10/2020 1. Displaced fracture through the posterior elements of C1 with subtle irregularity/step off along the posterior aspect of the dens may correlate to the patient's reported C1 and C2 fractures. 2. Unchanged compression deformities involving T12 and T11 and to a lesser extent T10. 3. No definite fracture involving the lumbar spine, sacrum, coccyx, and pelvis. Dictated by: Caitlin Monet M.D. The radiology attending physician has personally reviewed this study, and had reviewed and/or editedthis written report and agrees with it. Electronically signed by: Altaf Ascencio M.D. Cta Neck W Wo Contrast Result Date: 09/11/2020 1. Right vertebral artery is dominant. No angiographic evidence of injury to the vertebral arteriesor carotid arteries. 2. Type III odontoid fracture and fractures of the right and left posterior arches of C1. 3. 2 cm right thyroid nodule. If clinically warranted, this could be evaluated on a nonemergent basis with outpatient ultrasound. Dictated by: Angelica Salcedo M.D. Mri Cervical Spine Wo Contrast Result Date: 09/10/2020 1. Severely motion degraded study. 2. Odontoid fracture with prevertebral fluid collection and sprain of nuchal ligament; possible injury of other craniocervical ligaments which is difficult to evaluate due to motion artifact. Recommend follow-up when the patient able to tolerate MRI. 3. Left vertebral artery irregularity in the V2/V3 segment, further evaluation with CT angiography is recommended. Recommend CT cervical spine reconstructions from CTA study to better evaluate fractures. 4. Thyroid nodules for which further evaluation with ultrasound is recommended. Findings discussed with Dr. Boston at 10:53 PM to 09/10/2020. Dictated by: Miguel Henriquez MD, PHD The radiology attending physician has personally reviewed this study, and had reviewed and/or edited this written report and agreeswith it. Electronically signed by: Makenna Martinez M.D. Xr Pelvis 1 Or 2 Views Result Date: 09/10/2020 1. Displaced fracture through the posterior elements of C1 with subtle irregularity/step off along the posterior aspect of the dens may correlate to the patient's reported C1 and C2 fractures. 2. Unchanged compression deformities involving T12 and T11 and to a lesser extent T10. 3. No definite fracture involving the lumbar spine, sacrum, coccyx, and pelvis. Dictated by: Caitlin Monet M.D. The radiology attending physician has personally reviewed this study, and had reviewed and/or editedthis written report and agrees with it. Electronically signed by: Altaf Ascencio M.D. Assessment and Plan: Active Problems: Chronic obstructive pulmonary disease with acute exacerbation (CMS/HCC) HTN (hypertension) GERD (gastroesophageal reflux disease) Closed odontoid fracture with type III morphology (CMS/HCC) Acute pain due to trauma Anxiety Chronic congestive heart failure (CMS/HCC) Depression Pulmonary hypertension, moderate to severe (CMS/HCC) Sleep apnea Syncope #Type III Odontoid fracture: - NSGY CS - MRI demonstrating odontoid fracture with prevertebral fluid collection and sprain of nuchal ligament, L vertebral artery irregularity V2-V3 - Cervical spine precautions - Maintain cervical spine collar - Pain control - OK for DVT PPX - Q4H NV checks - NSGY recs for repeat MRI, ordered and pending - PT/OT #Syncope: - Continuous telemetry - Orthostatics negative 09/13 - Possible polypharmacy related #Acute Pain due to Trauma: - Tylenol 1000 mg Q8H - Oxycodone 5 mg Q4H PRN #HTN: - HCTZ 12.5 mg / day - Metoprolol XL 100 mg / day #COPD: - Continue to maintain at 4L of home O2 - Albuterol + Fluticasone inhaler - Telemetry for O2 monitoring #Depression/Anxiety: - 09/12:Clonazepam and Elavil restarted - Restoril on hold #DVT ppx - Lovenox #Dispo: - pending PT/OT Tabitha Maki NP Cosigned by Morgan Bronson MD at 09/26/2020 5:54 AM HEALTH AND FITNESS PROFESSOR TH AND FITNESS PROFESSOR TH AND FITNESS PROFESSOR Associated attestation - Morgan Bronson MD - 09/26/2020 5:54 AM HEALTH AND FITNESS PROFESSOR I have seen and examined the patient on 09/13/2020 in conjunction with the non- physician provider. History: Multiple falls with spine fractures Physical Exam: Alert and orient x4 Lab/Radiology/Diagnostics Review: Assessment/Plan [place] J Collar PT OT Pain control * Karishma Darby RN - 09/13/2020 6:50 AM CST Assessment of patient???s baseline is established at the beginning of the shift in flowsheets. Patient reassessed per order, unexpected findings and/or deviations from baseline are captured in flowsheets. Frequent safety checks and comfort rounds provided. Orders and/or nursing care completed as indicated. Patient monitored for response to interventions and treatments as documented in flowsheets.MRI, orthostatics, VS stable, monitor pain, NPO at midnight, hourly rounding, rose removed. Education provided includes Fall Prevention, Pain Management and Skin Breakdown Prevention/Treatment. Patient and/or administrative representative Verbalizes understanding. Will continue to monitor. TH AND FITNESS PROFESSOR * Jenny Varela MD - 09/12/2020 2:14 PM CST Neurosurgery Consult Progress Note 09/12/2020 Subjective Interval History: No acute events Objective Physical Exam: Patient is awake, alert, fully oriented. Motor exam is 5/5 strength in bilateral deltoids, biceps, triceps, wrist extensors, interossei, iliopsoas, quadriceps, hamstrings, tibialis anterior, gastrocnemius. [place] collar. Vitals: 24hr min/max vitals: Temp Min: 36.2 ??C (97.1 ??F) Max: 36.7 ??C (98.1 ??F) Pulse Min: 66 Max: 77 Resp Min: 20 Max: 24 SpO2 Min: 96 % Max: 98 % MAP (mmHg) Min: 80 Max: 111 Labs: Lab Results Component Value Date SODIUM 143 09/12/2020 SODIUM 144 09/10/2020 SODIUM 142 08/29/2020 Lab Results Component Value Date WBC 5.4 09/12/2020 WBC 6.2 09/10/2020 WBC 9.7 08/29/2020 HGB 10.6 (L) 09/12/2020 HGB 9.5 (L) 09/10/2020 HGB 10.8 (L) 08/29/2020 LABPLAT 224 09/12/2020 LABPLAT 205 09/10/2020 LABPLAT 357 08/29/2020 Lab Results Component Value Date INR 1.0 09/10/2020 INR 0.9 08/23/2020 INR 1.19 05/10/2015 PT 11.5 09/10/2020 APTT 27 09/10/2020 APTT 24 (L) 08/23/2020 APTT 16.6 (L) 05/10/2015 Assessment/Plan Hospital Day: 3 Phoebe Hillman is a 79 y.o. year old female who was seen by the neurosurgery service for C1 posterior arch and C2 type III dens fractures. This consult has been staffed with Dr. Stroud. Plan 1. Repeat flex/ex films of the cervical spine. 2. Repeat MRI of cervical spine given motion limitation. 3. Continue enterprise J collar 4. OK for dvt ppx Neurosurgery Contact: Jenny Varela Note created by Jenny Varela MD on 09/12/2020 at 2:14 PM. Cosigned by Juan Antonio Stroud MD at 09/24/2020 2:50 PM HEALTH AND FITNESS PROFESSOR TH AND FITNESS PROFESSOR TH AND FITNESS PROFESSOR * Shellie Healy, RN - 09/12/2020 12:38 PM CST BETZY Initial Assessment Interview Note Information Obtained From: Patient Name: Joanna Herrera- daughter, #[phone] (09/11/20 1237) Admission Source: OSH Impression: unstable burst fx of 1st cervical vertebra Plan Includes: non-op. Swallow test PT & OT evals Primary Source of Transportation: car Health Insurance Coverage: [facility] [employer] HMO and [place] Medicaid Prescription Coverage: yes Pharmacy: [facility] Primary Care Provider: Jason Wiggins MD Prior to Admission: Primary Caregiver: Self Support System: Spouse/Significant Other Support system contact info (name, phone, availablity): lives with x- Son is Reynold Sher [phone] Home Care Services: No Durable Medical Equipment: Oxygen, CPAP/Bi-PAP, Nebulizer, Walker (wheeled)([facility] provides Home O2. 3.5 liters continuous) Living Arrangements: Spouse/significant other Type of Residence: Private residence Steps in home? : Yes, Outside of home Number of steps outside:: 8 steps (09/12/20 1236) Potential discharge needs include: Physical therapy, Occupational therapy, (09/11/20 1237) Dialysis: Dialysis: No (09/12/20 123) Behavioral Health Services: Behavioral Health Services: No (09/12/20 123) Patient expects to be Discharged to: Acute Rehab, (09/12/20 123) Additional Information: Patient stating her PCP is Pancho Nagy Patient's Identified Problem/Goal Problem: Ensure acute medical [...] Collaboration with patient, MD, direct care nurse, Truck Crane Operator, Nurse Coordinator and other members of the health care team to assure needed interventions completed. 2. Return patient to optimal level of self-care post discharge. 3. Sewer Pipe Layer will follow for Discharge Planning - interventions as needed 4. Anticipated level of care at discharge 5. Planned Discharge Disposition Based on a comprehensive family assessment, assistance with instrumental activities of daily livingafter discharge will be provided by facility staff Through the course of our work I determined that the facility staff possesses the skill and abilityto provide and monitor the care of the patient when he or she returns home. Facility staff has the capacity to provide/monitor/arrange for the care of the patient. Finally, we determined that Facility staff has the knowledge of available resources and that combining them with their existing resources will suffice to sustain and care for the patient when he or she returns home. The treatment team is aware of this information. All are in agreement with the aftercare plan. Shellie Healy RN TH AND FITNESS PROFESSOR * Inga Nova, JUICE - 09/12/2020 7:53 AM CST [facility] Daily Progress Note Admit: 09/10/2020 7:08 PM Date: September 12, 2020 Length of Stay: 2 Attending: Debby Hebert,* POD:* No surgery found * History: Phoebe Hillman is a 79 y.o. female with a past medical history of HTN, COPD (on 4L O2 at home), GERD, melena, obesity, and previous hysterectomy who presented to the [facility] ED with neck pain after several falls. The patient stated she had sustained several falls over the past week; she fell again one day prior to arrival, went to bed and continued to have pain upon waking up. The patient denied tripping or having presyncopal symptoms prior to the falls. OSH imaging demonstrated a C1-C2 fracture and she was transferred to the [facility] ED for further treatment. On arrival, the patient was alert and oriented. Exam demonstrated an obese female, abrasion to the left forehead, mild tenderness to palpation to the coccyx and ecchymosis to left buttock, left forearm ecchymosis, and intact strength and sensation to all extremities. Imaging demonstrated a Type III odontoid fracture and fractures of the right and left posterior arches of C1, unchanged compression deformities involving T12 and T11 and to a lesser extent T10. CTA demonstrated a dominant right vertebral artery, no injury tothe vertebral or carotid arteries. An incidental finding of a 2 cm right thyroid nodule was also noted. An MRI was obtained and demonstrated an Odontoid fracture with prevertebral fluid collection and sprain of nuchal ligament; possible injury of other craniocervical ligaments, left vertebral artery irregularity in the V2/V3 segment. Neurosurgery was consulted. The patient was admitted to the [facility] for further treatment. Interval History: 09/12: Repeat MRI C spine per NSGY. Lovenox resumed for dvt ppx. Swallow eval pending 09/11: [place] J collar placed on pt. Pain well managed. Likely non-op but will f/u with NSG. Telemetryand Orthostatics ordered. PERSONNEL ASSOCIATE consult ordered for difficulty swallowing. Pain:controlled Nausea: No Flatus: No Bowel Movement: No Medications: Current Facility-Administered Medications: ??? acetaminophen (TYLENOL) tablet 1,000 mg, 1,000 mg, oral, Q8H, Jacquelyn Huston MD, 1,000 mg at 09/11/202120 ??? albuterol HFA (PROVENTIL HFA,VENTOLIN HFA,PROAIR HFA) 90 mcg/actuation inhaler 2 puff, 2 puff, inhalation, Q4H PRN (RT), Jacquelyn Huston MD ??? busPIRone (BUSPAR) tablet 10 mg, 10 mg, oral, BID, Jacquelyn Huston MD ??? cholecalciferol (VITAMIN D-3) capsule 2,000 Units, 2,000 Units, oral, Daily, Jacquelyn Huston MD, 2,000 Units at 09/11/20949 ??? dextrose 5% and Lactated Ringer's infusion, 50 mL/hr, intravenous, Continuous, Rola Mcgowan NP, Last Rate: 50 mL/hr at 09/11/20 1540, 50 mL/hr at 09/11/20 1540 ??? ferrous sulfate tablet 325 mg, 65 mg of elemental iron, oral, BID with meals (bkfst, dinner), Jacquelyn Huston MD, 325 mg at 09/11/202121 ??? fluticasone furoate-vilanteroL (BREO ELLIPTA) 100-25 mcg/dose inhaler 1 puff, 1 puff, inhalation, Daily (RT), Jacquelyn Huston MD, 1 puff at 09/11/20 0830 ??? hydroCHLOROthiazide (HYDRODIURIL) tablet 12.5 mg, 12.5 mg, oral, Daily, Jacquelyn Huston MD, 12.5 mgat 09/11/2050 ??? metoprolol XL (TOPROL-XL) extended release tablet 100 mg, 100 mg, oral, Daily, Jacquelyn Huston MD, 100 mg at 09/11/2050 ??? montelukast (SINGULAIR) tablet 10 mg, 10 mg, oral, Nightly, Jacquelyn Huston MD, 10 mg at 09/11/202120 ??? oxyCODONE (ROXICODONE) tablet 5 mg, 5 mg, oral, Q4H PRN, Jacquelyn Huston MD, 5 mg at 09/11/20 2329 ??? pantoprazole DR (PROTONIX) extended release tablet 40 mg, 40 mg, oral, Daily, Jacquelyn Huston MD, 40 mg at 09/11/20 0950 ??? potassium chloride 40 mEq/520 mL in sodium chloride 0.9% (premix) 40 mEq, 40 mEq, intravenous, Once, Poor, Addis Wen, FOUNDRY WORKER APPRENTICE, Last Rate: 130 mL/hr at 09/12/20 0536, 40 mEq at 09/12/20 0536 ??? sodium chloride 0.9% flush 0.5-20 mL, 0.5-20 mL, intra-catheter, Q8H CHET, Jacquelyn Huston MD, 10 mLat 09/11/20 0540 ??? sodium chloride 0.9% flush 0.5-20 mL, 0.5-20 mL, intra-catheter, PRN, Jacquelyn Huston MD ??? umeclidinium (INCRUSE ELLIPTA) 62.5 mcg/actuation inhaler 62.5 mcg, 1 puff, inhalation, Daily (RT), Jacquelyn Huston MD, 62.5 mcg at 09/11/20 0830 Diet: Dietary Orders (From admission, onward) Start Ordered 09/11/20 1143 NPO Diet Sips of clear liquids Diet effective now Comments: Patient is cleared for speech therapy assessment. Question: NPO except: Answer: Sips of clear liquids 09/11/20 1144 Activity: as tolerated, spinal precautions Is&Os: I/O last 2 completed shifts: In: 1252.5 [P.O.:150; I.V.:1102.5] Out: 1974 [Urine:1974] No intake/output data recorded. Physical Exam: 24hr Min/Max: Temp Min: 36.2 ??C (97.1 ??F) Max: 36.7 ??C (98.1 ??F) Pulse Min: 73 Max: 101 BP Min: 117/66 Max: 174/73 Resp Min: 20 Max: 24 SpO2 Min: 92 % Max: 98 % Vitals: 09/12/20 0449 BP: (!) 172/80 Pulse: 74 Resp: 24 Temp: 36.3 ??C (97.3 ??F) SpO2: 96% Constitutional: well developed, well nourished, cooperative and appears stated age Head: normocephalic, without obvious abnormality, atraumatic Neurologic: alert and oriented x4 motor 5/5 all extremities Eyes: PERRL HENT: lips, mucosa, and tongue normal Neck: supple, symmetrical, trachea midline and collar in place Chest: normal appearance, no masses or tenderness Respiratory: normal chest rise and fall and diminished breath sounds bilateral Cardiovascular: regular rate and rhythm, S1, S2 normal, no murmur, click, rub or gallop Gastrointestinal: soft, non-tender; bowel sounds present; no masses, no organomegaly Musculoskeletal: extremities normal, warm and well-perfused Pulses: radial: bilateral normal Skin: skin color, texture, turgor normal. No rashes or lesions Labs/Imaging: Recent Results (from the past 72 hour(s)) Comprehensive metabolic panel Collection Time: 09/10/20 7:55 PM Result Value Ref Range Sodium 144 135 - 145 mmol/L Potassium, pl 3.6 3.3 - 4.9 mmol/L Chloride 100 97 - 110 mmol/L CO2 39 (H) 22 - 32 mmol/L Anion gap 5 2 - 15 mmol/L BUN 12 8 - 25 mg/dL Creatinine 0.38 (L) 0.60 - 1.10 mg/dL Glucose 112 70 - 199 mg/dL Calcium 8.6 8.5 - 10.3 mg/dL Bilirubin, total 0.4 0.1 - 1.2 mg/dL Protein, pl 6.4 (L) 6.5 - 8.5 g/dL Albumin 3.3 (L) 3.5 - 5.0 g/dL Alk phos 87 40 - 130 Units/L ALT 14 7 - 45 Units/L AST 21 10 - 45 Units/L Protime-INR Collection Time: 09/10/20 7:55 PM Result Value Ref Range PT 11.5 9.5 - 13.6 sec INR 1.0 0.9 - 1.2 aPTT Collection Time: 09/10/20 7:55 PM Result Value Ref Range aPTT 27 27 - 37 sec Urinalysis reflex to microscopic and culture Urine Collection Time: 09/10/20 7:55 PM Specimen: Urine Result Value Ref Range Color, ur Yellow Yellow Clarity, ur Cloudy (A) Clear Specific gravity, ur 1.013 1.010 - 1.025 pH, urine 9 Protein, ur ql 1+ (A) Negative Glucose, ur ql Negative Negative Ketones, ur 1+ (A) Negative Bilirubin, ur Negative Negative Blood, ur 2+ (A) Negative Urobilinogen, ur <2.0 <2.0 mg/dL Nitrite, ur Negative Negative Leukocyte esterase, ur Negative Negative UA reflex comment Reflex to microscopic UA will be performed. Type and screen Collection Time: 09/10/20 7:55 PM Result Value Ref Range Sheng, indirect Negative ABO Rh A Positive COVID-19 Coronavirus RNA Nasopharyngeal Collection Time: 09/10/20 7:55 PM Specimen: Nasopharyngeal Result Value Ref Range COVID-19 RNA Not Detected First COVID-19 test? No Employeed in healthcare? No status? No Group care resident? No Hospitalized? No Is patient in ICU? No Symptomatic as defined by CDC? No Urinalysis, microscopic only Collection Time: 09/10/20 7:55 PM Result Value Ref Range WBC, ur 6-10 (A) 0 - 5 /HPF RBC, ur >50 (A) 0 - 2 /HPF Epithelial cells, squamous, ur 1-5 0 - 5 /HPF Mucous, ur Present (A) Amorphous crystals, ur Trace (A) Culture Reflex Comment Reflex conditions for urine culture (WBC >10) not met. CBC with auto differential Collection Time: 09/10/20 9:24 PM Result Value Ref Range WBC 6.2 3.8 - 9.9 K/cumm Hgb 9.5 (L) 11.9 - 15.5 g/dL Hct 32.7 (L) 35.6 - 45.5 % Plt 205 150 - 400 K/cumm MPV 10.1 9.1 - 12.3 fL RBC 3.79 (L) 3.90 - 5.20 M/cumm MCV 86.3 81.3 - 96.4 fL MCH 25.1 (L) 27.1 - 33.3 pg MCHC 29.1 (L) 32.3 - 35.7 g/dL RDW CV 22.4 (H) 11.1 - 14.9 % RDW SD 69.2 (H) 35.7 - 48.1 fL NRBC abs 0.00 0.00 - 0.01 K/cumm Differential, auto Collection Time: 09/10/20 9:24 PM Result Value Ref Range Neutrophil abs 4.7 1.7 - 6.5 K/cumm Imm gran abs 0.0 0.0 - 0.1 K/cumm Lymphocyte abs 0.9 0.8 - 3.3 K/cumm Monocyte abs 0.6 0.2 - 0.8 K/cumm Eosinophil abs 0.0 0.0 - 0.5 K/cumm Basophil abs 0.0 0.0 - 0.1 K/cumm Neutrophil pct 75.9 % Imm gran pct 0.3 % Lymphocyte pct 14.5 % Monocyte pct 8.9 % Eosinophil pct 0.2 % Basophil pct 0.2 % CBC without differential Collection Time: 09/12/20 1:03 AM Result Value Ref Range WBC 5.4 3.8 - 9.9 K/cumm Hgb 10.6 (L) 11.9 - 15.5 g/dL Hct 35.9 35.6 - 45.5 % Plt 224 150 - 400 K/cumm MPV 10.0 9.1 - 12.3 fL RBC 4.35 3.90 - 5.20 M/cumm MCV 82.5 81.3 - 96.4 fL MCH 24.4 (L) 27.1 - 33.3 pg MCHC 29.5 (L) 32.3 - 35.7 g/dL RDW CV 22.7 (H) 11.1 - 14.9 % RDW SD 67.6 (H) 35.7 - 48.1 fL NRBC abs 0.00 0.00 - 0.01 K/cumm Magnesium Collection Time: 09/12/20 1:03 AM Result Value Ref Range Magnesium 2.0 1.4 - 2.5 mg/dL Phosphorus Collection Time: 09/12/20 1:03 AM Result Value Ref Range Phosphorus, pl 2.6 2.3 - 4.5 mg/dL Basic metabolic panel Collection Time: 09/12/20 1:03 AM Result Value Ref Range Sodium 143 135 - 145 mmol/L Potassium, pl 3.5 3.3 - 4.9 mmol/L Chloride 99 97 - 110 mmol/L CO2 39 (H) 22 - 32 mmol/L Anion gap 5 2 - 15 mmol/L BUN 8 8 - 25 mg/dL Creatinine 0.40 (L) 0.60 - 1.10 mg/dL Glucose 125 70 - 199 mg/dL Calcium 9.4 8.5 - 10.3 mg/dL Xr Spine Cervical 2 Or 3 Views Result Date: 09/10/2020 1. Displaced fracture through the posterior elements of C1 with subtle irregularity/step off along the posterior aspect of the dens may correlate to the patient's reported C1 and C2 fractures. 2. Unchanged compression deformities involving T12 and T11 and to a lesser extent T10. 3. No definite fracture involving the lumbar spine, sacrum, coccyx, and pelvis. Dictated by: Caitlin Monet M.D. The radiology attending physician has personally reviewed this study, and had reviewed and/or editedthis written report and agrees with it. Electronically signed by: Altaf Ascencio M.D. Xr Spine Thoracic 3 Vw Result Date: 09/10/2020 1. Displaced fracture through the posterior elements of C1 with subtle irregularity/step off along the posterior aspect of the dens may correlate to the patient's reported C1 and C2 fractures. 2. Unchanged compression deformities involving T12 and T11 and to a lesser extent T10. 3. No definite fracture involving the lumbar spine, sacrum, coccyx, and pelvis. Dictated by: Caitlin Monet M.D. The radiology attending physician has personally reviewed this study, and had reviewed and/or editedthis written report and agrees with it. Electronically signed by: Altaf Ascencio M.D. Xr Spine Lumbar 2 Or 3 Views Result Date: 09/10/2020 1. Displaced fracture through the posterior elements of C1 with subtle irregularity/step off along the posterior aspect of the dens may correlate to the patient's reported C1 and C2 fractures. 2. Unchanged compression deformities involving T12 and T11 and to a lesser extent T10. 3. No definite fracture involving the lumbar spine, sacrum, coccyx, and pelvis. Dictated by: Caitlin Monet M.D. The radiology attending physician has personally reviewed this study, and had reviewed and/or editedthis written report and agrees with it. Electronically signed by: Altaf Ascencio M.D. Xr Sacrum Coccyx 2 Or More Views Result Date: 09/10/2020 1. Displaced fracture through the posterior elements of C1 with subtle irregularity/step off along the posterior aspect of the dens may correlate to the patient's reported C1 and C2 fractures. 2. Unchanged compression deformities involving T12 and T11 and to a lesser extent T10. 3. No definite fracture involving the lumbar spine, sacrum, coccyx, and pelvis. Dictated by: Caitlin Monet M.D. The radiology attending physician has personally reviewed this study, and had reviewed and/or editedthis written report and agrees with it. Electronically signed by: Altaf Ascencio M.D. Cta Neck W Wo Contrast Result Date: 09/11/2020 1. Right vertebral artery is dominant. No angiographic evidence of injury to the vertebral arteriesor carotid arteries. 2. Type III odontoid fracture and fractures of the right and left posterior arches of C1. 3. 2 cm right thyroid nodule. If clinically warranted, this could be evaluated on a nonemergent basis with outpatient ultrasound. Dictated by: Angelica Salcedo M.D. Mri Cervical Spine Wo Contrast Result Date: 09/10/2020 1. Severely motion degraded study. 2. Odontoid fracture with prevertebral fluid collection and sprain of nuchal ligament; possible injury of other craniocervical ligaments which is difficult to evaluate due to motion artifact. Recommend follow-up when the patient able to tolerate MRI. 3. Left vertebral artery irregularity in the V2/V3 segment, further evaluation with CT angiography is recommended. Recommend CT cervical spine reconstructions from CTA study to better evaluate fractures. 4. Thyroid nodules for which further evaluation with ultrasound is recommended. Findings discussed with Dr. Boston at 10:53 PM to 09/10/2020. Dictated by: Miguel Henriquez MD, PHD The radiology attending physician has personally reviewed this study, and had reviewed and/or edited this written report and agreeswith it. Electronically signed by: Makenna Martinez M.D. Xr Pelvis 1 Or 2 Views Result Date: 09/10/2020 1. Displaced fracture through the posterior elements of C1 with subtle irregularity/step off along the posterior aspect of the dens may correlate to the patient's reported C1 and C2 fractures. 2. Unchanged compression deformities involving T12 and T11 and to a lesser extent T10. 3. No definite fracture involving the lumbar spine, sacrum, coccyx, and pelvis. Dictated by: Caitlin Monet M.D. The radiology attending physician has personally reviewed this study, and had reviewed and/or editedthis written report and agrees with it. Electronically signed by: Altaf Ascencio M.D. Assessment and Plan: Active Problems: Closed odontoid fracture with type III morphology (CMS/HCC) Acute pain due to trauma #Type III Odontoid fracture: - NSGY recommendations - Cervical spine precautions - Maintain cervical spine collar - Pain control - Q4H NV checks - NSGY recs for repeat MRI, ordered and pending - PT / OT #Syncope - Telemetry - Orthostatics - review medications - labs #Pain: - Tylenol 1000 mg Q8H - Oxycodone 5 mg Q4H PRN #HTN: - HCTZ 12.5 mg / day - Metoprolol XL 100 mg / day #COPD: - Continue to maintain at 4L of home O2 - Albuterol + Fluticasone inhaler - Telemetry for O2 monitoring #DVT ppx - Lovenox Dispo- pending PT/OT Anuradha Nova NP Cosigned by Morgan Bronson MD at 09/26/2020 5:54 AM HEALTH AND FITNESS PROFESSOR TH AND FITNESS PROFESSOR TH AND FITNESS PROFESSOR Associated attestation - Morgan Bronson MD - 09/26/2020 5:54 AM HEALTH AND FITNESS PROFESSOR I have seen and examined the patient on 09/12/2020 in conjunction with the non- physician provider. History: Multiple falls with spine fractures Physical Exam: Alert and orient x4 Lab/Radiology/Diagnostics Review: Assessment/Plan Pato Locke PT OT Pain control * Karishma Darby RN - 09/12/2020 7:16 AM CST Assessment of patient???s baseline is established at the beginning of the shift in flowsheets. Patient reassessed per order, unexpected findings and/or deviations from baseline are captured in flowsheets. Frequent safety checks and comfort rounds provided. Orders and/or nursing care completed as indicated. Patient monitored for response to interventions and treatments as documented in flowsheets.C spine precautions, monitor for pain, BP elevated, I/O documented, hourly rounding compelted. Education provided includes Fall Prevention, Pain Management and Skin Breakdown Prevention/Treatment. Patient and/or administrative representative verbalizes understanding . Will continue to monitor. TH AND FITNESS PROFESSOR * Rola Mcgowan, JUICE - 09/11/2020 3:10 PM CST [facility] Daily Progress Note Admit: 09/10/2020 7:08 PM Date: September 11, 2020 Length of Stay: 1 Attending: Debby Hebert,* POD:* No surgery found * History: Phoebe Hillman is a 79 y.o. female with a past medical history of HTN, COPD (on 4L O2 at home), GERD, melena, obesity, and previous hysterectomy who presented to the [facility] ED with neck pain after several falls. The patient stated she had sustained several falls over the past week; she fell again one day prior to arrival, went to bed and continued to have pain upon waking up. The patient denied tripping or having presyncopal symptoms prior to the falls. OSH imaging demonstrated a C1-C2 fracture and she was transferred to the [facility] ED for further treatment. On arrival, the patient was alert and oriented. Exam demonstrated an obese female, abrasion to the left forehead, mild tenderness to palpation to the coccyx and ecchymosis to left buttock, left forearm ecchymosis, and intact strength and sensation to all extremities. Imaging demonstrated a Type III odontoid fracture and fractures of the right and left posterior arches of C1, unchanged compression deformities involving T12 and T11 and to a lesser extent T10. CTA demonstrated a dominant right vertebral artery, no injury tothe vertebral or carotid arteries. An incidental finding of a 2 cm right thyroid nodule was also noted. An MRI was obtained and demonstrated an Odontoid fracture with prevertebral fluid collection and sprain of nuchal ligament; possible injury of other craniocervical ligaments, left vertebral artery irregularity in the V2/V3 segment. Neurosurgery was consulted. The patient was admitted to the [facility] for further treatment. Interval History: [place] J collar placed on pt. Pain well managed. Likely non-op but will f/u with NSG. Telemetry and Orthostatics ordered. PERSONNEL ASSOCIATE consult ordered for difficulty swallowing. Pain:controlled Nausea: No Flatus: No Bowel Movement: No Medications: Current Facility-Administered Medications: ??? acetaminophen (TYLENOL) tablet 1,000 mg, 1,000 mg, oral, Q8H, Jacquelyn Huston MD, 1,000 mg at 09/11/20 1154 ??? albuterol HFA (PROVENTIL HFA,VENTOLIN HFA,PROAIR HFA) 90 mcg/actuation inhaler 2 puff, 2 puff, inhalation, Q4H PRN (RT), Jacquelyn Huston MD ??? [START ON 09/12/2020] busPIRone (BUSPAR) tablet 10 mg, 10 mg, oral, BID, Jacquelyn Huston MD ??? cholecalciferol (VITAMIN D-3) capsule 2,000 Units, 2,000 Units, oral, Daily, Jacquelyn Huston MD, 2,000 Units at 09/11/20 0950 ??? dextrose 5% and Lactated Ringer's infusion, 75 mL/hr, intravenous, Continuous, Jacquelyn Huston MD, Last Rate: 75 mL/hr at 09/11/20 1154, 75 mL/hr at 09/11/20 1154 ??? ferrous sulfate tablet 325 mg, 65 mg of elemental iron, oral, BID with meals (bkfst, dinner), Jacquelyn Huston MD, 325 mg at 09/11/20 0950 ??? fluticasone furoate-vilanteroL (BREO ELLIPTA) 100-25 mcg/dose inhaler 1 puff, 1 puff, inhalation, Daily (RT), Jacquelyn Huston MD, 1 puff at 09/11/20 0830 ??? hydroCHLOROthiazide (HYDRODIURIL) tablet 12.5 mg, 12.5 mg, oral, Daily, Jacquelyn Huston MD, 12.5 mgat 09/11/20 0950 ??? metoprolol XL (TOPROL-XL) extended release tablet 100 mg, 100 mg, oral, Daily, Jacquelyn Huston MD, 100 mg at 09/11/20 0950 ??? montelukast (SINGULAIR) tablet 10 mg, 10 mg, oral, Nightly, Jacquelyn Huston MD ??? ondansetron ODT (ZOFRAN-ODT) disintegrating tablet 4 mg, 4 mg, oral, QID PRN, Jacquelyn Huston MD ??? oxyCODONE (ROXICODONE) tablet 5 mg, 5 mg, oral, Q4H PRN, Jacquelyn Huston MD, 5 mg at 09/11/20 1511 ??? pantoprazole DR (PROTONIX) extended release tablet 40 mg, 40 mg, oral, Daily, Jacquelyn Huston MD, 40 mg at 09/11/20 0950 ??? sodium chloride 0.9% flush 0.5-20 mL, 0.5-20 mL, intra-catheter, Q8H CHET, Jacquelyn Huston MD, 10 mLat 09/11/20 0540 ??? sodium chloride 0.9% flush 0.5-20 mL, 0.5-20 mL, intra-catheter, PRN, Jacquelyn Huston MD ??? umeclidinium (INCRUSE ELLIPTA) 62.5 mcg/actuation inhaler 62.5 mcg, 1 puff, inhalation, Daily (RT), Jacquelyn Huston MD, 62.5 mcg at 09/11/20 0830 Diet: Dietary Orders (From admission, onward) Start Ordered 09/11/20 1143 NPO Diet Sips of clear liquids Diet effective now Comments: Patient is cleared for speech therapy assessment. Question: NPO except: Answer: Sips of clear liquids 09/11/20 1144 Activity: as tolerated, spinal precautions Is&Os: I/O last 2 completed shifts: In: 0 Out: 825 [Urine:825] I/O this shift: In: 660 [I.V.:660] Out: 650 [Urine:650] Physical Exam: 24hr Min/Max: Temp Min: 36.2 ??C (97.1 ??F) Max: 36.8 ??C (98.3 ??F) Pulse Min: 78 Max: 107 BP Min: 143/92 Max: 181/85 Resp Min: 21 Max: 24 SpO2 Min: 87 % Max: 100 % Vitals: 09/11/20 1145 BP: 143/92 Pulse: 78 Resp: 22 Temp: 36.4 ??C (97.6 ??F) SpO2: 94% Constitutional: well developed, well nourished, cooperative and appears stated age Head: normocephalic, without obvious abnormality, atraumatic Neurologic: alert and oriented x4 motor 5/5 all extremities Eyes: PERRL HENT: lips, mucosa, and tongue normal Neck: supple, symmetrical, trachea midline and collar in place Chest: normal appearance, no masses or tenderness Respiratory: normal chest rise and fall and diminished breath sounds bilateral Cardiovascular: regular rate and rhythm, S1, S2 normal, no murmur, click, rub or gallop Gastrointestinal: soft, non-tender; bowel sounds present; no masses, no organomegaly Musculoskeletal: extremities normal, warm and well-perfused Pulses: radial: bilateral normal Skin: skin color, texture, turgor normal. No rashes or lesions Labs/Imaging: Recent Results (from the past 72 hour(s)) Comprehensive metabolic panel Collection Time: 09/10/20 7:55 PM Result Value Ref Range Sodium 144 135 - 145 mmol/L Potassium, pl 3.6 3.3 - 4.9 mmol/L Chloride 100 97 - 110 mmol/L CO2 39 (H) 22 - 32 mmol/L Anion gap 5 2 - 15 mmol/L BUN 12 8 - 25 mg/dL Creatinine 0.38 (L) 0.60 - 1.10 mg/dL Glucose 112 70 - 199 mg/dL Calcium 8.6 8.5 - 10.3 mg/dL Bilirubin, total 0.4 0.1 - 1.2 mg/dL Protein, pl 6.4 (L) 6.5 - 8.5 g/dL Albumin 3.3 (L) 3.5 - 5.0 g/dL Alk phos 87 40 - 130 Units/L ALT 14 7 - 45 Units/L AST 21 10 - 45 Units/L Protime-INR Collection Time: 09/10/20 7:55 PM Result Value Ref Range PT 11.5 9.5 - 13.6 sec INR 1.0 0.9 - 1.2 aPTT Collection Time: 09/10/20 7:55 PM Result Value Ref Range aPTT 27 27 - 37 sec Urinalysis reflex to microscopic and culture Urine Collection Time: 09/10/20 7:55 PM Specimen: Urine Result Value Ref Range Color, ur Yellow Yellow Clarity, ur Cloudy (A) Clear Specific gravity, ur 1.013 1.010 - 1.025 pH, urine 9 Protein, ur ql 1+ (A) Negative Glucose, ur ql Negative Negative Ketones, ur 1+ (A) Negative Bilirubin, ur Negative Negative Blood, ur 2+ (A) Negative Urobilinogen, ur <2.0 <2.0 mg/dL Nitrite, ur Negative Negative Leukocyte esterase, ur Negative Negative UA reflex comment Reflex to microscopic UA will be performed. Type and screen Collection Time: 09/10/20 7:55 PM Result Value Ref Range Sheng, indirect Negative ABO Rh A Positive Urinalysis, microscopic only Collection Time: 09/10/20 7:55 PM Result Value Ref Range WBC, ur 6-10 (A) 0 - 5 /HPF RBC, ur >50 (A) 0 - 2 /HPF Epithelial cells, squamous, ur 1-5 0 - 5 /HPF Mucous, ur Present (A) Amorphous crystals, ur Trace (A) Culture Reflex Comment Reflex conditions for urine culture (WBC >10) not met. CBC with auto differential Collection Time: 09/10/20 9:24 PM Result Value Ref Range WBC 6.2 3.8 - 9.9 K/cumm Hgb 9.5 (L) 11.9 - 15.5 g/dL Hct 32.7 (L) 35.6 - 45.5 % Plt 205 150 - 400 K/cumm MPV 10.1 9.1 - 12.3 fL RBC 3.79 (L) 3.90 - 5.20 M/cumm MCV 86.3 81.3 - 96.4 fL MCH 25.1 (L) 27.1 - 33.3 pg MCHC 29.1 (L) 32.3 - 35.7 g/dL RDW CV 22.4 (H) 11.1 - 14.9 % RDW SD 69.2 (H) 35.7 - 48.1 fL NRBC abs 0.00 0.00 - 0.01 K/cumm Differential, auto Collection Time: 09/10/20 9:24 PM Result Value Ref Range Neutrophil abs 4.7 1.7 - 6.5 K/cumm Imm gran abs 0.0 0.0 - 0.1 K/cumm Lymphocyte abs 0.9 0.8 - 3.3 K/cumm Monocyte abs 0.6 0.2 - 0.8 K/cumm Eosinophil abs 0.0 0.0 - 0.5 K/cumm Basophil abs 0.0 0.0 - 0.1 K/cumm Neutrophil pct 75.9 % Imm gran pct 0.3 % Lymphocyte pct 14.5 % Monocyte pct 8.9 % Eosinophil pct 0.2 % Basophil pct 0.2 % Xr Spine Cervical 2 Or 3 Views Result Date: 09/10/2020 1. Displaced fracture through the posterior elements of C1 with subtle irregularity/step off along the posterior aspect of the dens may correlate to the patient's reported C1 and C2 fractures. 2. Unchanged compression deformities involving T12 and T11 and to a lesser extent T10. 3. No definite fracture involving the lumbar spine, sacrum, coccyx, and pelvis. Dictated by: Caitlin Monet M.D. The radiology attending physician has personally reviewed this study, and had reviewed and/or editedthis written report and agrees with it. Electronically signed by: Altaf Ascencio M.D. Xr Spine Thoracic 3 Vw Result Date: 09/10/2020 1. Displaced fracture through the posterior elements of C1 with subtle irregularity/step off along the posterior aspect of the dens may correlate to the patient's reported C1 and C2 fractures. 2. Unchanged compression deformities involving T12 and T11 and to a lesser extent T10. 3. No definite fracture involving the lumbar spine, sacrum, coccyx, and pelvis. Dictated by: Caitlin Monet M.D. The radiology attending physician has personally reviewed this study, and had reviewed and/or editedthis written report and agrees with it. Electronically signed by: Altaf Ascencio M.D. Xr Spine Lumbar 2 Or 3 Views Result Date: 09/10/2020 1. Displaced fracture through the posterior elements of C1 with subtle irregularity/step off along the posterior aspect of the dens may correlate to the patient's reported C1 and C2 fractures. 2. Unchanged compression deformities involving T12 and T11 and to a lesser extent T10. 3. No definite fracture involving the lumbar spine, sacrum, coccyx, and pelvis. Dictated by: Caitlin Monet M.D. The radiology attending physician has personally reviewed this study, and had reviewed and/or editedthis written report and agrees with it. Electronically signed by: Altaf Ascencio M.D. Xr Sacrum Coccyx 2 Or More Views Result Date: 09/10/2020 1. Displaced fracture through the posterior elements of C1 with subtle irregularity/step off along the posterior aspect of the dens may correlate to the patient's reported C1 and C2 fractures. 2. Unchanged compression deformities involving T12 and T11 and to a lesser extent T10. 3. No definite fracture involving the lumbar spine, sacrum, coccyx, and pelvis. Dictated by: Caitlin Monet M.D. The radiology attending physician has personally reviewed this study, and had reviewed and/or editedthis written report and agrees with it. Electronically signed by: Altaf Ascencio M.D. Cta Neck W Wo Contrast Result Date: 09/11/2020 1. Right vertebral artery is dominant. No angiographic evidence of injury to the vertebral arteriesor carotid arteries. 2. Type III odontoid fracture and fractures of the right and left posterior arches of C1. 3. 2 cm right thyroid nodule. If clinically warranted, this could be evaluated on a nonemergent basis with outpatient ultrasound. Dictated by: Angelica Salcedo M.D. Mri Cervical Spine Wo Contrast Result Date: 09/10/2020 1. Severely motion degraded study. 2. Odontoid fracture with prevertebral fluid collection and sprain of nuchal ligament; possible injury of other craniocervical ligaments which is difficult to evaluate due to motion artifact. Recommend follow-up when the patient able to tolerate MRI. 3. Left vertebral artery irregularity in the V2/V3 segment, further evaluation with CT angiography is recommended. Recommend CT cervical spine reconstructions from CTA study to better evaluate fractures. 4. Thyroid nodules for which further evaluation with ultrasound is recommended. Findings discussed with Dr. Boston at 10:53 PM to 09/10/2020. Dictated by: Miguel Henriquez MD, PHD The radiology attending physician has personally reviewed this study, and had reviewed and/or edited this written report and agreeswith it. Electronically signed by: Makenna Martinez M.D. Xr Pelvis 1 Or 2 Views Result Date: 09/10/2020 1. Displaced fracture through the posterior elements of C1 with subtle irregularity/step off along the posterior aspect of the dens may correlate to the patient's reported C1 and C2 fractures. 2. Unchanged compression deformities involving T12 and T11 and to a lesser extent T10. 3. No definite fracture involving the lumbar spine, sacrum, coccyx, and pelvis. Dictated by: Caitlin Monet M.D. The radiology attending physician has personally reviewed this study, and had reviewed and/or editedthis written report and agrees with it. Electronically signed by: Altaf Ascencio M.D. Assessment and Plan: Active Problems: Closed odontoid fracture with type III morphology (CMS/HCC) Acute pain due to trauma #Type III Odontoid fracture: - NSGY recommendations - Cervical spine precautions - Maintain cervical spine collar - Pain control - Q4H NV checks - Final plan per NSGY pending until 09/11, likely non-operative - PT / OT #Syncope - Telemetry - Orthostatics - review medications - labs #Pain: - Tylenol 1000 mg Q8H - Oxycodone 5 mg Q4H PRN #HTN: - HCTZ 12.5 mg / day - Metoprolol XL 100 mg / day #COPD: - Continue to maintain at 4L of home O2 - Albuterol + Fluticasone inhaler - Telemetry for O2 monitoring Rola Mcgowan NP Cosigned by Morgan Bronson MD at 09/26/2020 5:54 AM HEALTH AND FITNESS PROFESSOR TH AND FITNESS PROFESSOR TH AND FITNESS PROFESSOR Associated attestation - Morgan Bronson MD - 09/26/2020 5:54 AM HEALTH AND FITNESS PROFESSOR I have seen and examined the patient on 09/11/2020 in conjunction with the non- physician provider. History: Multiple falls with spine fractures Physical Exam: Alert and orient x4 Lab/Radiology/Diagnostics Review: Assessment/Plan [place] J Collar PT OT Pain control * Angelica Gee, PT - 09/11/2020 2:16 PM CST 09/11/20 1416 General PT Missed Visit Reason Bedrest;MD/RN Hold (HOB flat; pending further imaging) TH AND FITNESS PROFESSOR * Spencer Hernandez MD - 09/11/2020 2:00 PM CST Neurosurgery Consult Progress Note 09/11/2020 Subjective Interval History: 2.6 - admitted Objective Physical Exam: Patient is awake, alert, fully oriented. Motor exam is 5/5 strength in bilateral deltoids, biceps, triceps, wrist extensors, interossei, iliopsoas, quadriceps, hamstrings, tibialis anterior, gastrocnemius. [place] collar. Vitals: 24hr min/max vitals: Temp Min: 36.2 ??C (97.1 ??F) Max: 36.5 ??C (97.7 ??F) Pulse Min: 73 Max: 107 Resp Min: 20 Max: 24 SpO2 Min: 90 % Max: 100 % MAP (mmHg) Min: 80 Max: 108 Labs: Lab Results Component Value Date SODIUM 144 09/10/2020 SODIUM 142 08/29/2020 SODIUM 145 08/29/2020 Lab Results Component Value Date WBC 6.2 09/10/2020 WBC 9.7 08/29/2020 WBC 8.8 08/29/2020 HGB 9.5 (L) 09/10/2020 HGB 10.8 (L) 08/29/2020 HGB 10.6 (L) 08/29/2020 LABPLAT 205 09/10/2020 LABPLAT 357 08/29/2020 LABPLAT 316 08/29/2020 Lab Results Component Value Date INR 1.0 09/10/2020 INR 0.9 08/23/2020 INR 1.19 05/10/2015 PT 11.5 09/10/2020 APTT 27 09/10/2020 APTT 24 (L) 08/23/2020 APTT 16.6 (L) 05/10/2015 Assessment/Plan Hospital Day: 2 Phoebe Hillman is a 79 y.o. year old female who was seen by the neurosurgery service for C1 posterior arch and C2 type III dens fractures. This consult has been staffed with Dr. Stroud. Plan 1. Neurologically stable. 2. Recommend flex/ex films of the cervical spine. 3. Recommend repeat MRI of cervical spine given motion limitation. 4. Continue aspen collar 5. Cervical spine precautions. 6. OK for dvt ppx Neurosurgery Contact: Spencer Hernandez Note created by Spencer Hernandez MD on 09/11/2020 at 8:46 PM. TH AND FITNESS PROFESSOR * Shar Brown OT - 09/11/2020 12:59 PM CST 09/11/20 09 General OT Missed Visit Reason MD/RN Hold (HOB flat, no OOB per RN, pending further imaging/recs) TH AND FITNESS PROFESSOR * Zara Canela RN - 09/11/2020 12:40 PM CST CM Initial Assessment Interview Note Information Obtained From: Adult child Name: Joanna Herrera- daughter, #[phone] (09/11/20 1237) Admission Source: ED from OSH transfer Impression: Fall with C1/C2 fx. Plan Includes: MRI/CT, pain management Primary Source of Transportation: Car Health Insurance Coverage: Medicare/Medicaid Prescription Coverage: Medicare/Medicaid Pharmacy: [facility] Primary Care Provider: Jason Wiggins MD Prior to Admission: Primary Caregiver: Self Support System: Friends/neighbors Support system contact info (name, phone, availablity): Lives with friend Home Care Services: No Durable Medical Equipment: Toilet Riser, Walker (wheeled), Shower chair, CPAP/Bi-PAP, Oxygen, Nebulizer Living Arrangements: Friends Type of Residence: Private residence Steps in home? : Yes, Outside of home (09/11/20 1237) Potential discharge needs include: Physical therapy, Occupational therapy, (09/11/201236) Dialysis: Dialysis: No (09/11/201236) Behavioral Health Services: Behavioral Health Services: No (09/11/201236) Patient expects to be Discharged to: Private residence, (09/11/201236) Additional Information: Upon results of MRI determine patients ability to care for self. May need Acute Rehab/SNF placement, or Home Health for PT/OT. Patient's Identified Problem/Goal Problem: Ensure acute medical [...] Collaboration with patient, MD, direct care nurse, Truck Crane Operator, Nurse Coordinator and other members of the health care team to assure needed interventions completed. 2. Return patient to optimal level of self-care post discharge. 3. Sewer Pipe Layer will follow for Discharge Planning - interventions as needed 4. Anticipated level of care at discharge 5. Planned Discharge Disposition Based on a comprehensive family assessment, assistance with instrumental activities of daily livingafter discharge will be provided by family and friends. Through the course of our work I determined that the daughter possesses the skill and ability to provide and monitor the care of the patient when he or she returns home. daughter has the capacity to provide/monitor/arrange for the care of the patient. Finally, we determined that the daughter has the knowledge of available resources and that combining them with their existing resources will suffice to sustain and care for the patient when he or she returns home. The treatment team is aware of this information. All are in agreement with the aftercare plan. Zara Canela RN TH AND FITNESS PROFESSOR documented in this encounter Procedure Notes * Jessica Cunningham, PERSONNEL ASSOCIATE - 09/12/2020 3:30 PM CST Speech-Language Pathology: Clinical Bedside Swallow HPI/PMH HPI/PMH: 79 y.o. female on aspirin 81 mg, with history of COPD on 4L, who has had 2 mechanical falls in the past 2 days and has neck pain. She presents with C1 bilateral posterior arch fractures, C2 type 3 dens fracture. Neuro intact. Recent admission- discharged 08/30, had recs for snf however pt refused and dc home Respiratory/Intubation Status: 4L NC Neuro CT 09/11- no definite large acute intracranial hemorrhage is seen. Precautions: fall, aspiration, cervical spine Current Diet Order:NPO pending PERSONNEL ASSOCIATE swallow evaluation Baseline Feeding Status: Pt reports regular diet/regular thin liquids at baseline. General Information Pohebe Hillman 09/12/20 General Observations: Pt required max verbal encouragement from PERSONNEL ASSOCIATE, RN, and FOUNDRY WORKER APPRENTICE to participate in swallow evaluation. Cervical collar in place. Pain Score: 0 If pain >4, was RN notified? N/A Patient Stated Goal/Comments: Pt did not state goals related to skilled ST this date. Clinical Impression & Professional Recommendations Diet Solids Recommendation: Regular Diet Liquids Recommendations: Thin/regular Recommended Form of Medications: As tolerated Compensatory Strategies/Modifications: Small bites, Single sips Postural Recommendations: Upright 90 degrees Specialty Instructions/Modifications: good oral care 2-3x/day Diagnosis: Dysphagia Diagnosis: Within Functional Limits Overall Clinical Impression/Additional Information: Oral mechanism exam found to be WFL. Trials of ice chip, thin liquid (via tsp and straw), puree, and hard solids administered. Pt took large sequential drinks x3 as well as small single sips. No signs/symptoms of aspiration across any trials administered. Pt with adequate/timely mastication, and good oral clearance of hard solids. Pt's swallow timely per palpation across all trials. Pt reports no difficulties with trials administered. Overall,pt's swallow function found to be WFL. Assessment Details & Results Consistencies Administered: Ice chips, Thin liquids, Purees, Solids MASA: Pena Assessment of Swallowing Ability (MASA) Alertness: Alert Cooperation: Fluctuating cooperation Auditory Comprehension: No abnormality detected Respiration: Chest clear Respiratory Rate (for swallow): Able to control breath rate for swallow Aphasia: No abnormality detected Apraxia: No abnormality detected Dysarthria: No abnormality detected Saliva: No abnormality detected Lip Seal: No abnormality detected Tongue Movement: Full range of motion Tongue Strength: No abnormality detected Tongue Coordination: No abnormality detected Gag: No gag(did not assess) Palate: No abnormality detected Cough Reflex: No deficit noted Voluntary Cough: No abnormality detected Voice: No abnormality detected Trach: No trach Oral Preparation: No deficits noted Bolus Clearance: Fully cleared Oral Transit: No deficits note Pharyngeal Phase: Immediate laryngeal elevation Pharyngeal Response: No deficits noted MASA Score: 194 Dysphagia: No dysphagia detected (178-200) Aspiration Risk: No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 spine fracture (CMS/HCC) ??? COPD (chronic obstructive pulmonary disease) (CMS/HCC) ??? Disorder of lung 05/20/2015 Class: Chronic Past Medical History: Diagnosis Date ??? COPD (chronic obstructive pulmonary disease) (CMS/HCC) ??? Hypertension ??? Thoracic spine fracture (CMS/HCC) 3 months ago History reviewed. No pertinent surgical history. History reviewed. No pertinent family history. Social History Tobacco Use ??? Smoking status: Former Smoker Quit date: 08/23/2004 Years since quittin.0 Substance Use Topics ??? Alcohol use: Not on file ??? Drug use: Not on file Social History Social History Narrative Lives with partner at home in [place], [place]. Review of Systems Review of Systems All other systems reviewed and are negative. Physical Exam ED Triage Vitals Temp Pulse Resp BP SpO2 09/10/20191909/10/20190909/10/20191909/10/20190909/10/201919 36.8 ??C (98.3 ??F) 107 23 (!) 181/85 96 % Temp src Heart Rate Source Patient Position BP Location FiO2 (%) 09/10/20191909/11/205 09/11/205 09/11/20254 -- Oral Pulse Oximetry Lying Right arm Physical Exam Vitals signs and nursing note reviewed. Constitutional: General: She is not in acute distress. Appearance: She is obese. She is not ill-appearing. HENT: Head: Normocephalic. Comments: Abrasion to left forehead. No periorbital ecchymosis. Nose: Nose normal. Mouth/Throat: Mouth: Mucous membranes are dry. Pharynx: Oropharynx is clear. Eyes: Extraocular Movements: Extraocular movements intact. Conjunctiva/sclera: Conjunctivae normal. Pupils: Pupils are equal, round, and reactive to light. Cardiovascular: Rate and Rhythm: Normal rate and regular rhythm. Pulses: Normal pulses. Heart sounds: Normal heart sounds. Pulmonary: Effort: Pulmonary effort is normal. No respiratory distress. Breath sounds: Normal breath sounds. Comments: On home 4 L oxygen, no respiratory distress Abdominal: Palpations: Abdomen is soft. Tenderness: There is no abdominal tenderness. There is no guarding. Musculoskeletal: Right lower leg: No edema. Left lower leg: No edema. Comments: No tenderness to palpation along clavicles, upper extremities or lower extremities. Pelvis stable. Midline tenderness to palpation overlying coccyx, otherwise no tenderness along spine or step-offs. Skin: Comments: Ecchymoses on left forearm. Also small ecchymosis on left buttock. Neurological: Mental Status: She is alert. Comments: AOx3. Answering questions appropriately. CN III-XI intact. Upper and lower extremities: 5/5 strength with sensation intact. Psychiatric: Mood and Affect: Mood normal. MDM MDM 79 yo F w/ COPD on 4L at baseline, HTN transferred from OSH for unstable C1/C2 fractures following a recent fall with head trauma, no LOC. CT head at outside hospital negative for intracranial hemorrhage. GCS 15, AOx3, no focal neural deficits. Not on anticoagulation Concern for spinal cord injury in context of unstable cervical fractures or additional spinal fractures, vertebral artery injury orspinal ligamentous injury. Plan: CBC, CMP, coags, type and screen, pelvic x-ray, COVID 19, neurosurgery consultation, pain control Dispo: Admit Attending Summary of Care ED Course as of Sep 11 351 Time: 09/10 1927 Comment: Attending summary: 79 year old female with fall yesterday with neck pain presents from OSHfor cervical spine fx. Patient arrives with sheet wrapped around neck because they did not have appropriate sized collar. [place] collar placed. Patient unclear on what caused her to fall. Plan for labs, review of imaging, spine and trauma consult. By: Tish Sharma MD Time: 09/10 1930 Comment: CT cspine:C1 fx at postlat on ring bilat, C2 body fx extending to superior facets and baseof dens. By: Darvin Ponce MD Time: 09/10 1936 Comment: Teaching Resident Note: 79 yo F fell yesterday presented to OSH with neck pain, found to have unstable C1-C2 fx. OSH CT head and CXR unremarkable. Vitals unremarkable. Appears well, nontoxic, nondiostressed. Arrives with c- spine stabilized with towels. No signs of head trauma. Lungs CTAB. Abdomen nonteder. Stable pelvis. Strength 5/5 BUE BLE, sensation nl to light touch throughout. Dx unstable C1-C2 fracture with fall of unknown circumstances. Plan to upload OSH imaging, add on pelvis XR, send in-house labs, consult spine & GTS. Will maintain c-spine precautions. Anticipate admission. By: Guero Rinaldi MD Time: 09/10 1950 Comment: Spoke w NSGY regarding cervical fractures, will see pt By: Darvin Ponce MD Time: 09/10 2020 Comment: Spoke with trauma surgery, will see pt By: Darvin Ponce MD Closed unstable burst fracture of first cervical vertebra, initial encounter ([facility]) Darvin Ponce MD Resident 09/11/20 035 Cosigned by Tish Sharma MD at 09/13/2020 8:36 AM HEALTH AND FITNESS PROFESSOR TH AND FITNESS PROFESSOR TH AND FITNESS PROFESSOR Associated attestation - Tish Sharma MD - 09/13/2020 8:36 AM HEALTH AND FITNESS PROFESSOR I have seen and examined the patient on 09/10/2020. I agree with the findings and plan of care as documented in the resident's note. * Madie Jackson RN - 09/10/2020 7:09 PM CST Pt to ED from OSH with reported unstable C1/C2 fx. Pt reportedly fell yesterday morning walking in her house. Pt also states she fell the day before. Pt states she fell forward suddenly onto carpet both times. Denies LOC. Pt c/o neck pain. Pt states she was able to get up after her fall. Pt neuro intact, A&Ox4. Pt has hx of HTN and COPD. Pt on 4L NC at baseline. Pt hypertensive currently. Other VSS TH AND FITNESS PROFESSOR * Madie Jackson RN - 09/10/2020 7:08 PM CST Bed: [facility] Expected date: 09/10/20 Expected time: 10:39 AM Means of arrival: Ambulance Comments: Madie Jackson RN 09/10/20 1908 TH AND FITNESS PROFESSOR documented in this encounter Miscellaneous Notes * Provider Query - Debby Hebert MD - 09/16/2020 3:31 PM HEALTH AND FITNESS PROFESSOR Please specify the TYPE of Heart Failure, and document in the medical record and on the form below. ?? Type ____ Systolic [Reduced ejection fraction (EF)]-(Evidence of clinical heart failure with a reduced EF of less than 40-45%) _x___ Diastolic [Preserved ejection fraction (EF)]-(Evidence of heart failure with a normal EF of greater than 50%. Evidence of heart failure on Echo; Impaired relaxation and elevated A/E ratio in apatient with clinical heart failure) ____ Combined Systolic and Diastolic (Evidence of clinical heart failure with an EF of greater than40% and less than 50%) ____ Other, specify below ____ Clinically unable to determine ? Additional Provider Response: ? Clinical Indicators/Treatments: ?? 2/10 PN (active problem list--unable to code from this list without further supporting documentation in assessment/plan): Chronic congestive heart failure ?? TTE 08/25/20: Normal LV size with mild LVH, normal LV systolic function,LVEF 65%, and grade I-II diastolic dysfunction with mildly increased est. LV filling pressure. ?? Treatment/monitoring: HCTZ 12.5mg qd, metoprolol XL 100mg qd, strict I&O q4h ?? Use of terms such as likely, suspected, possible, or probable (associated with a specific diagnosisthat is being evaluated, monitored, or treated as if it exists) are acceptable and can be coded in the inpatient setting when documented at the time of discharge. ?? This documentation will become part of the patient???s medical record. ? Thank you, ?? Maday Jean RN, CCDS TH AND FITNESS PROFESSOR * Provider Query - Amparo Hassan - 09/16/2020 7:55 AM CST Please specify the TYPE of Heart Failure, and document in the medical record and on the form below. Type ____ Systolic [Reduced ejection fraction (EF)]-(Evidence of clinical heart failure with a reduced EF of less than 40-45%) ____ Diastolic [Preserved ejection fraction (EF)]-(Evidence of heart failure with a normal EF of greater than 50%. Evidence of heart failure on Echo; Impaired relaxation and elevated A/E ratio in a patient with clinical heart failure) ____ Combined Systolic and Diastolic (Evidence of clinical heart failure with an EF of greater than40% and less than 50%) ____ Other, specify below _x___ Clinically unable to determine Additional Provider Response: Clinical Indicators/Treatments: 2/10 PN (active problem list--unable to code from this list without further supporting documentation in assessment/plan): Chronic congestive heart failure TTE 08/25/20: Normal LV size with mild LVH, normal LV systolic function,LVEF 65%, and grade I-II diastolic dysfunction with mildly increased est. LV filling pressure. Treatment/monitoring: HCTZ 12.5mg qd, metoprolol XL 100mg qd, strict I&O q4h Use of terms such as likely, suspected, possible, or probable (associated with a specific diagnosisthat is being evaluated, monitored, or treated as if it exists) are acceptable and can be coded in the inpatient setting when documented at the time of discharge. This documentation will become part of the patient???s medical record. Thank you, Amparo Hassan RN, MSN, [facility] [phone] TH AND FITNESS PROFESSOR * Plan of Care - Jacinda Ahumada LMSW - 09/15/2020 3:11 PM CST Per DCAM, pt is medically stable for discharge. Arranged to admit to [facility]. Awaiting insurance. Jacinda Ahumada [facility] Social Work [phone] For emergency needs from 4:31p.m. - 7:59a.m., please call the ED Truck Crane Operator . For weekend needs from 8:00a.m. - 4:30p.m., please call the Weekend Social Work Staff . TH AND FITNESS PROFESSOR * Plan of Care - Carla Hernandez PT - 09/15/2020 12:53 PM CST Problem: Mobility Goal: STG - Patient will ambulate Description: 50ft Min A with wheeled walker Outcome: Progressing Problem: Transfers Goal: STG - Transfer from bed to chair Description: SBA Outcome: Progressing Goal: STG - Patient will perform bed mobility Description: Mod I Outcome: Progressing Goal: STG - Patient will transfer sit to and from stand Description: Supine <> Sidelying <> Sitting (I) Outcome: Progressing TH AND FITNESS PROFESSOR * Plan of Care - Rola Tang - 09/14/2020 4:03 PM CST Problem: Swallowing Goal: LTG - Patient will tolerate the least restrictive diet consistency to allow for safe consumption of daily meals Outcome: Completed Goal: STG - Patient will tolerate recommended food and liquid consistencies without clinical signs and symptoms of aspirations Outcome: Completed Pt lying in bed upon arrival, alert and cooperative. Pt said she has not had any issues with current diet, has been ordering whatever she wants for meals without any coughing or difficulties. Pt recalled modifications independently and demonstrated small bites/sips without any s/s of aspiration. Nofurther PERSONNEL ASSOCIATE needed at this time. Clinical Impression & Professional Recommendations Diet Solids Recommendation: Regular Diet Liquids Recommendations: Thin/regular Recommended Form of Medications: As tolerated Compensatory Strategies/Modifications: Single sips, Small bites, Slow rate Postural Recommendations: Upright 90 degrees Cosigned by Julia Mueller, PERSONNEL ASSOCIATE at 09/16/2020 7:06 AM HEALTH AND FITNESS PROFESSOR TH AND FITNESS PROFESSOR TH AND FITNESS PROFESSOR * Plan of Care - Jacinda Ahumada LMSW - 09/14/2020 12:27 PM CST Social work met with the patient/family to obtain assessment information and discuss d/c planning needs. Social work informed the patient/family that d/c recommendations indicate transfer to rehab. Social work provided information on the rehabilitation process and provided information onrehab. Social work provided information on [facility] and emphasized the importance of continuity of care. Social work discussed d/c options to meet the patient's needs and provided a printed list of facilities for review. Patient/family are agreeable to plan and prefer [facility]. Pt's ex-spouse live with patient and dtr Zara can provide in- home support as well. Jacinda Ahumada LCSW [facility] Social Work [phone] For emergency needs from 4:31p.m. - 7:59a.m., please call the ED Truck Crane Operator . For weekend needs from 8:00a.m. - 4:30p.m., please call the Weekend Social Work Staff . TH AND FITNESS PROFESSOR * Plan of Care - Shellie Healy RN - 09/13/2020 11:23 AM CST Plan of care discussed with team during DCAM today. Problem: PT & OT initial evals today. Casemanagement services will continue to follow for any d/c needs. Please call me at for further inquiries. Goal: Discharge to home when medically stable. TH AND FITNESS PROFESSOR * Provider Gregg - Amparo Hassan - 09/12/2020 12:53 PM CST Specify a diagnosis that accurately reflects the lab findings, and document in the medical record and on the form below. _x__Elevation of CO2 likely due to retaining 2/2 COPD ___Abnormal laboratory findings, inconclusive diagnosis ___Clinically insignificant abnormal laboratory findings ___Other, specify below ___Clinically unable to determine Additional Provider Response: Clinical Indicators/Treatments: Ref. Range 09/10/2020 19:55 09/12/2020 01:03 CO2 Latest Ref Range: 22 - 32 mmol/L 39 (H) 39 (H) 09/12 PN: per hx: ??? COPD (on 4L O2 at home)??? COPD: - Continue to maintain at 4L of home O2 - Albuterol + Fluticasone inhaler - Telemetry for O2 monitoring Labs/O2 saturation monitored per orders Use of terms such as likely, suspected, possible, or probable (associated with a specific diagnosisthat is being evaluated, monitored, or treated as if it exists) are acceptable and can be coded in the inpatient setting when documented at the time of discharge. This documentation will become part of the patient???s medical record. Thank you, Amparo Hassan RN, MSN, CCDS [phone] TH AND FITNESS PROFESSOR * Provider Amparo Van - 09/12/2020 12:49 PM CST Specify a diagnosis that reflects the patient???s need for continuous home oxygen, and document in the medical record and on the form below. __x_ Chronic Hypoxic Respiratory Failure ___ Chronic Hypercapnic Respiratory Failure ___ Chronic Respiratory Failure, unspecified ___ Chronic Lung Disease WITHOUT chronic respiratory failure (specify disease) ___ Other, specify below ___ Clinically unable to determine Additional Provider Response: Clinical Indicators/Treatments: 09/12 PN: per hx: ??? COPD (on 4L O2 at home)??? COPD: - Continue to maintain at 4L of home O2 - Albuterol + Fluticasone inhaler - Telemetry for O2 monitoring Respiratory Failure Screening Criteria Chronic Respiratory Failure Dependence on continuous (24 hours a day) home O2 or non-invasive mechanical ventilation (BiPAP, AVAPS, etc.) If provider believes patient has respiratory failure in the absence of above clinical indicators, please document rationale and clinical impression in detail Respiratory Failure References [employer] Hospitalist Jun 2013 Coding Clinics: 3rd Q 1987, p 7 and 2nd Q 1989, p.20 https://www.[facility].gov/tgmaaxtj-urr-paomylqxx/medicare-learning-network-mln/mlnprod ucts/downloads/cqcq-duttkf-mkphmkl-text-only.pdf Use of terms such as likely, suspected, possible, or probable (associated with a specific diagnosisthat is being evaluated, monitored, or treated as if it exists) are acceptable and can be coded in the inpatient setting when documented at the time of discharge. This documentation will become part of the patient???s medical record. Thank you, Amparo Hassan RN, MSN, CCDS [phone] TH AND FITNESS PROFESSOR * Plan of Care - Monique Rothman RRT - 09/11/2020 8:30 AM CST Pt w/hx of COPD seen for BREO and INCRUSE inhaler which pt tolerated well. Pt need help with inhalers. TH AND FITNESS PROFESSOR * Plan of Care - Dionne Kim RN - 09/11/2020 2:55 AM CST Problem: Lack of Knowledge: Goal: Ability to state ways to decrease the risk of falls will improve Outcome: Progressing Problem: Safety: Goal: Will remain free from falls Outcome: Progressing Goal: Will remain free from injury from falls Outcome: Progressing Goal: Will remain free from falls and injury in home environment Outcome: Progressing Problem: Activity: Goal: Mobility will improve Outcome: Progressing Problem: Lack of Knowledge: Goal: Understanding of ways to prevent future skin breakdown will improve Outcome: Progressing Goal: Ability to identify appropriate dietary choices will improve Outcome: Progressing Problem: Nutritional: Goal: Dietary intake will improve Outcome: Progressing Goal: Ability to maintain a balanced intake and output will improve Outcome: Progressing Problem: Skin Integrity: Goal: Risk for impaired skin integrity will decrease Outcome: Progressing Goal: Ability to demonstrate warm and dry skin will improve Outcome: Progressing Goal: Circulation will improve to fullest extent possible Outcome: Progressing Goals: c-collar on/aligned at all times, pain control, stable vs/labs, balanced I/Os, remain free of fall/injury, sleep hygiene Dionne Kim RN TH AND FITNESS PROFESSOR * ED Procedure Note - Tish Sharma MD - 09/10/2020 10:07 PM HEALTH AND FITNESS PROFESSOR Associated Order(s): Critical Care Procedure Critical Care Performed by: Tish Sharma MD Authorized by: Edwin Moore MD PhD Critical care provider statement: As reflected in the history, physical exam, orders, notes, and/or MDM, I was personally present while the patient was critically ill and provided critical care services for approximately 35 minutes, excluding time involved in separately billable procedures. Critical care was necessary to treat or prevent imminent or life-threatening deterioration of the following condition(s): spinal cord injury/spine fracture Critical care was time spent by me providing the following: continuous telemetry, continuous pulse oximetry, interpretation of bedside monitors, imaging, and arterial/venous lab draws and serial bedside patient exams frequent neurologic exams spinal immobilization I provided emergent necessary critical care medicine services to this patient. I ordered and reviewed test results and/or imaging studies. I spent time discussing the management of this critically ill patient with consultants and the medical staff. I spent time discussing the management and therapeutic options for this critically ill patient with the patient themselves or with the appropriate designated surrogate decision-maker. I spent time documenting in the medical record. I admitted this patient to a continuous cardiac monitored bed. Tish Sharma MD 09/14/20 1707 Tish Sharma MD 09/14/20 1708 TH AND FITNESS PROFESSOR TH AND FITNESS PROFESSOR * ED Procedure Note - Edwin Moore MD PhD - 09/10/2020 9:46 PM HEALTH AND FITNESS PROFESSOR Associated Order(s): ECG 12 lead Procedure ECG 12 lead Date/Time: 09/10/2020 9:46 PM Performed by: Edwin Moore MD PhD Authorized by: Darvin Ponce MD Rate: ECG rate: 102 ECG rate assessment: tachycardic Rhythm: Rhythm: sinus tachycardia Ectopy: Ectopy: none QRS: QRS axis: Normal QRS intervals: Normal Conduction: Conduction: normal ST segments: ST segments: Normal T waves: T waves: normal Previous ECG: Previous ECG: Unavailable Interpretation: Interpretation: non-specific Recommended Follow-up: Recommended follow up: further workup in the ED Comments: Attending physician interpretation: This ECG is remarkable only for the tachycardia. Is otherwise normal Edwin Moore MD PhD 09/10/20 8729 TH AND FITNESS PROFESSOR * Plan of Care - Eusebio Lopez RN - 09/10/2020 7:36 PM CST Case Management note:Pt had recent [facility]/inpt admission < 30 days. Please notify ED CM and/or SW of any needs. TH AND FITNESS PROFESSOR * ED Pre-Arrival Note - Zulay Best RN - 09/10/2020 10:39 AM HEALTH AND FITNESS PROFESSOR Pre-Arrival Note Level 2 trauma transfer from [facility], pt has had multiple falls over the past several days d/t increased weakness, pt has acute unstable C1-C2 fx, no neuro defecits, pt is sob at baseline d/t COPD, chest xray showed some opacities, unable to test for COVID d/t no rapid tests, report called Sera Best RN TH AND FITNESS PROFESSOR documented in this encounter Plan of Treatment Not on file documented as of this encounter Procedures Procedure Name Priority Date/Time Associated Diagnosis Comments MRI CERVICAL SPINE WO CONTRAST IP Routine 09/13/2020 2:13 AM HEALTH AND FITNESS PROFESSOR XR SPINE CERVICAL FLEXION AND EXTENSION 2 VIEWS IP Routine 09/12/2020 5:20 PM HEALTH AND FITNESS PROFESSOR CBC WITHOUT DIFFERENTIAL Routine 09/12/2020 1:03 AM HEALTH AND FITNESS PROFESSOR PHOSPHORUS Timed 09/12/2020 1:03 AM HEALTH AND FITNESS PROFESSOR MAGNESIUM Timed 09/12/2020 1:03 AM HEALTH AND FITNESS PROFESSOR BASIC METABOLIC PANEL Timed 09/12/2020 1:03 AM HEALTH AND FITNESS PROFESSOR XR SPINE CERVICAL FLEXION AND EXTENSION 2 VIEWS IP Routine 09/11/2020 2:24 PM HEALTH AND FITNESS PROFESSOR NEURO CT MR OUTSIDE CONSULT Routine 09/11/2020 6:19 AM HEALTH AND FITNESS PROFESSOR Diagnosis unknown NEURO CT MR OUTSIDE CONSULT Routine 09/11/2020 6:18 AM HEALTH AND FITNESS PROFESSOR Diagnosis unknown ECG 12-LEAD STAT 09/11/2020 4:19 AM HEALTH AND FITNESS PROFESSOR CTA NECK W WO CONTRAST ED 09/10/2020 11:19 PM HEALTH AND FITNESS PROFESSOR AR CRITICAL CARE ILL/INJURED PATIENT INIT 30-74 MIN Routine 09/10/2020 10:07 PM HEALTH AND FITNESS PROFESSOR ECG 12-LEAD Routine 09/10/2020 9:46 PM HEALTH AND FITNESS PROFESSOR DIFFERENTIAL AUTO STAT 09/10/2020 9:2 4 PM HEALTH AND FITNESS PROFESSOR CBC WITH AUTO DIFFERENTIAL STAT 09/10/2020 9:24 PM HEALTH AND FITNESS PROFESSOR MRI CERVICAL SPINE WO CONTRAST ED 09/10/2020 9:16 PM HEALTH AND FITNESS PROFESSOR XR SPINE THORACIC 3 VIEWS ED 09/10/2020 8:35 PM HEALTH AND FITNESS PROFESSOR XR SPINE LUMBAR 2 OR 3 VIEWS ED 09/10/2020 8:35 PM HEALTH AND FITNESS PROFESSOR XR SACRUM COCCYX 2 OR MORE VIEWS ED 09/10/2020 8:35 PM HEALTH AND FITNESS PROFESSOR XR PELVIS 1 OR 2 VIEWS ED 09/10/2020 8:34 PM HEALTH AND FITNESS PROFESSOR XR SPINE CERVICAL 2 OR 3 VIEWS ED 09/10/2020 8:34 PM HEALTH AND FITNESS PROFESSOR COVID-19 CORONAVIRUS RNA Routine 09/10/2020 7:55 PM HEALTH AND FITNESS PROFESSOR URINALYSIS AND REFLEX TO MICROSCOPIC AND CULTURE STAT 09/10/2020 7:55 PM HEALTH AND FITNESS PROFESSOR URINALYSIS, MICROSCOPIC ONLY STAT 09/10/2020 7:55 PM HEALTH AND FITNESS PROFESSOR APTT STAT 09/10/2020 7:55 PM HEALTH AND FITNESS PROFESSOR PROTIME-INR STAT 09/10/2020 7:55 PM HEALTH AND FITNESS PROFESSOR TYPE AND SCREEN STAT 09/10/2020 7:55 PM HEALTH AND FITNESS PROFESSOR COMPREHENSIVE METABOLIC PANEL STAT 09/10/2020 7:55 PM HEALTH AND FITNESS PROFESSOR documented in this encounter Results * MRI Cervical Spine WO Contrast (09/13/2020 2:13 AM HEALTH AND FITNESS PROFESSOR) Anatomical Region Laterality Modality Spine N/A Magnetic Resonan ce 09/13/2020 10:0 1 AM HEALTH AND FITNESS PROFESSOR Impressions 09/13/2020 10:05 AM HEALTH AND FITNESS PROFESSOR 1. Grossly unchanged type III odontoid fracture with associated prevertebral edema and nuchal ligament sprain. The osseous fracture is better characterized on the prior CT examination. 2. Multilevel degenerative changes of the cervical spine. Dictated by: Niels Owens M.D. The radiology attending physician has personally reviewed this study, and had reviewed and/or edited this written report and agrees with it. Electronically signed by: Makenna Jernigan M.D. Narrative 09/13/2020 10:05 AM HEALTH AND FITNESS PROFESSOR EXAMINATION: Magnetic resonance imaging (MRI) of the cervical spine without contrast HISTORY: 79-year-old woman with neck pain after several falls. TECHNIQUE: Multiplanar multi-weighted MRI of the cervical spine was performed without intravenous contrast using the standard cervical spine protocol. COMPARISON: MRI 09/10/2020, CTA 09/10/2020 FINDINGS: Again seen is a type III odontoid fracture with associated prevertebral edema and nuchal ligament sprain. No other fractures are present. The osseous fracture is better characterized on the prior CTA examination. The alignment of the cervical spine is normal. There is exaggeration of the cervical lordosis. Mild anterolisthesis of C3 on C4 and C4 on C5. The craniocervical junction is otherwise normal. The visualized portions of the skull base and the posterior fossa are normal. The spinal cord demonstrates normal signal intensity on all sequences. There is disc desiccation throughout the entire cervical spine with associated multilevel mild disc bulges present. Multiple thyroid nodules again identified. Normal signal voids are present in the vertebral arteries. Procedure Note Makenna Hall MD - 09/13/2020 EXAMINATION: Magnetic resonance imaging (MRI) of the cervical spine without contrast HISTORY: 79-year-old woman with neck pain after several falls. TECHNIQUE: Multiplanar multi-weighted MRI of the cervical spine was performed without intravenous contrast using the standard cervical spine protocol. COMPARISON: MRI 09/10/2020, CTA 09/10/2020 FINDINGS: Again seen is a type III odontoid fracture with associated prevertebral edema and nuchal ligament sprain. No other fractures are present. The osseous fracture is better characterized on the prior CTA examination. The alignment of the cervical spine is normal. There is exaggeration of the cervical lordosis. Mild anterolisthesis of C3 on C4 and C4 on C5. The craniocervical junction is otherwise normal. The visualized portions of the skull base and the posterior fossa are normal. The spinal cord demonstrates normal signal intensity on all sequences. There is disc desiccation throughout the entire cervical spine with associated multilevel mild disc bulges present. Multiple thyroid nodules again identified. Normal signal voids are present in the vertebral arteries. IMPRESSION: 1. Grossly unchanged type III odontoid fracture with associated prevertebral edema and nuchal ligament sprain. The osseous fracture is better characterized on the prior CT examination. 2. Multilevel degenerative changes of the cervical spine. Dictated by: Niels Owens M.D. The radiology attending physician has personally reviewed this study, and had reviewed and/or edited this written report and agrees with it. Electronically signed by: Makenna Jernigan M.D. Inga Willoughby NP IMG MRI PROCEDURES Sandra l Result * XR Spine Cervical Flexion and Extension 2 or 3 Views (09/12/2020 5:20 PM HEALTH AND FITNESS PROFESSOR) Anatomical Region Laterality Modality Spine N/A Computed Radiogr aphy 09/13/2020 6:05 AM HEALTH AND FITNESS PROFESSOR Impressions 09/13/2020 6:05 AM HEALTH AND FITNESS PROFESSOR 1. ??Hypomobility on extension with no abnormal motion on flexion 2. ??Unchanged relatively radiographically occult C1 and nondisplaced type III odontoid fractures Electronically signed by: Abhijit Armijo MD, PHD Narrative 09/13/2020 6:05 AM HEALTH AND FITNESS PROFESSOR EXAMINATION: Cervical spine flexion-extension 2 or 3 views HISTORY: ??C2 fracture FINDINGS: Lateral neutral, lateral flexion, lateral extension radiographs of the cervical spine are compared to prior examination from 09/11/2020. The nondisplaced type III odontoid and C1 fractures are better seen on CT examination. There is unchanged hypomobility on extension with no abnormal motion noted on flexion. Mild anterolisthesis of C4 on C1 is noted and does not change on flexion and extension. There is no osseous central canal stenosis. Mild, multilevel subaxial cervical degenerative disease is unchanged. Procedure Note Abhijit Armijo MD PhD - 09/13/2020 EXAMINATION: Cervical spine flexion-extension 2 or 3 views HISTORY: C2 fracture FINDINGS: Lateral neutral, lateral flexion, lateral extension radiographs of the cervical spine are compared to prior examination from 09/11/2020. The nondisplaced type III odontoid and C1 fractures are better seen on CT examination. There is unchanged hypomobility on extension with no abnormal motion noted on flexion. Mild anterolisthesis of C4 on C1 is noted and does not change on flexion and extension. There is no osseous central canal stenosis. Mild, multilevel subaxial cervical degenerative disease is unchanged. IMPRESSION: 1. Hypomobility on extension with no abnormal motion on flexion 2. Unchanged relatively radiographically occult C1 and nondisplaced type III odontoid fractures Electronically signed by: Abhijit Armijo MD, PHD Inga Willoughby NP IMG XR PROCEDURES Final Result * (ABNORMAL) Basic metabolic panel (09/12/2020 1:03 AM HEALTH AND FITNESS PROFESSOR) Sodium 143 135 - 145 mmol/L [facility] Potassium, pl 3.5 3.3 - 4.9 mmol/L [facility] Chloride 99 97 - 110 mmol/L [facility] CO2 39(H) 22 - 32 mmol/L [facility] Anion gap 5 2 - 15 mmol/L [facility] BUN 8 8 - 25 mg/dL [facility] Creatinine 0.40(L) 0.60 - 1.10 mg/dL [facility] Glucose 125 70 - 199 mg/dL [facility] Comment: Interpretive Data Fasting glucose >/= 126 [...] 2017. Calcium 9.4 8.5 - 10.3 mg/dL [facility] Blood specimen (specimen) 09/12/2020 1:03 AM HEALTH AND FITNESS PROFESSOR 09/12/2020 1:54 AM HEALTH AND FITNESS PROFESSOR Debby Hebert MD LAB BLOOD ORDERABLES F inal Result Performing Organization Address City/[facility] Co de Phone Number [facility] Department [place] [address] * Phosphorus (09/12/2020 1:03 AM HEALTH AND FITNESS PROFESSOR) Pathologist [facility] Phosphorus, pl 2.6 2.3 - 4.5 mg/dL [facility] Blood specimen (specimen) 09/12/2020 1:03 AM HEALTH AND FITNESS PROFESSOR 09/12/2020 1:54 AM HEALTH AND FITNESS PROFESSOR Addis Correa FOUNDRY WORKER APPRENTICE LAB BLOOD ORDERABLES Final Resul t Performing Organization Address [facility] de Phone Number [facility] Department of Laboratories [place], [place] [id number] * Magnesium (09/12/2020 1:03 AM HEALTH AND FITNESS PROFESSOR) Pathologist [facility] Magnesium 2.0 1.4 - 2.5 mg/dL [facility] Blood specimen (specimen) 09/12/2020 1:03 AM HEALTH AND FITNESS PROFESSOR 09/12/2020 1:54 AM HEALTH AND FITNESS PROFESSOR Addis Correa FOUNDRY WORKER APPRENTICE LAB BLOOD ORDERABLES Final Resul t Performing Organization Address [facility] Co de Phone Number [facility] Department of Laboratories [place], [place] [phone] * (ABNORMAL) CBC without differential (09/12/2020 1:03 AM HEALTH AND FITNESS PROFESSOR) WBC 5.4 3.8 - 9.9 K/cumm [facility] Hgb 10.6(L) 11.9 - 15.5 g/dL [facility] Hct 35.9 35.6 - 45.5 % [facility] Plt 224 150 - 400 K/cumm [facility] MPV 10.0 9.1 - 12.3 fL [facility] RBC 4.35 3.90 - 5.20 M/cumm [facility] MCV 82.5 81.3 - 96.4 fL [facility] MCH 24.4(L) 27.1 - 33.3 pg [facility] MCHC 29.5(L) 32.3 - 35.7 g/dL [facility] RDW CV 22.7(H) 11.1 - 14.9 % [facility] RDW SD 67.6(H) 35.7 - 48.1 fL [facility] NRBC abs 0.00 0.00 - 0.01 K/cumm [facility] Blood specimen (specimen) 09/12/2020 1:03 AM HEALTH AND FITNESS PROFESSOR 09/12/2020 1:43 AM HEALTH AND FITNESS PROFESSOR us Debby Hebert MD LAB BLOOD ORDERABLES F inal Result [facility] Department [place] [address] * XR Spine Cervical Flexion and Extension 2 or 3 Views (09/11/2020 2:24 PM HEALTH AND FITNESS PROFESSOR) Anatomical Region Laterality Modality Spine N/A Computed Radiogr aphy 09/11/2020 4:28 PM HEALTH AND FITNESS PROFESSOR Impressions 09/11/2020 4:28 PM HEALTH AND FITNESS PROFESSOR 1. ??Hypomobility on flexion-extension 1. ??C1 and nondisplaced type III odontoid fractures best seen on prior cross-sectional imaging. Electronically signed by: Abhijit Armijo MD, PHD Narrative 09/11/2020 4:28 PM HEALTH AND FITNESS PROFESSOR EXAMINATION: Cervical spine flexion-extension 2 or 3 views HISTORY: ??C2 fracture FINDINGS: Lateral neutral, lateral flexion, lateral extension radiographs are compared to prior radiographs and CT examination from 09/10/2020. ??The nondisplaced type III odontoid fracture and C1 fractures are better seen on the CT examination from the same day. There is hypomobility on flexion-extension. ??The alignment appears normal. ??There is mild, multilevel subaxial cervical degenerative disc disease. Procedure Note Abhijit Armijo MD PhD - 09/11/2020 EXAMINATION: Cervical spine flexion-extension 2 or 3 views HISTORY: C2 fracture FINDINGS: Lateral neutral, lateral flexion, lateral extension radiographs are compared to prior radiographs and CT examination from 09/10/2020. The nondisplaced type III odontoid fracture and C1 fractures are better seen on the CT examination from the same day. There is hypomobility on flexion-extension. The alignment appears normal. There is mild, multilevel subaxial cervical degenerative disc disease. IMPRESSION: 1. Hypomobility on flexion-extension 1. C1 and nondisplaced type III odontoid fractures best seen on prior cross-sectional imaging. Electronically signed by: Abhijit Armijo MD, PHD Debby Hebert MD IMG XR PROCEDURES Sandra l Result * Neuro CT MR Outside Consult (09/11/2020 6:19 AM HEALTH AND FITNESS PROFESSOR) Anatomical Region Laterality Modality N/A Computed Tomogra phy 09/11/2020 5:43 PM HEALTH AND FITNESS PROFESSOR Impressions 09/11/2020 5:43 PM HEALTH AND FITNESS PROFESSOR Limited exam due to streak artifact. ??Within these limitations, no definite large acute intracranial hemorrhage is seen. The findings, conclusions and recommendations within this report do not replace the initial findings, conclusions ??and recommendations made at the facility where the study was performed based upon the imaging and clinical condition at that time. ??Comparison with the prior report and clinical history is necessary. ??The provided images may or may not represent the [place] source data set and thus may contain changes that may lower the accuracy of this second-opinion interpretation. Electronically signed by: Karoline Wild M.D. Narrative 09/11/2020 5:43 PM HEALTH AND FITNESS PROFESSOR EXAMINATION: RADIOLOGY CONSULTATION ON OUTSIDE IMAGING STUDY STUDY INITIALLY PERFORMED: 09/10/2020 at [facility]. TYPE OF STUDY: Multiple CT images of the head without contrast are provided at the time of this interpretation. CONTRAST ROUTE: No contrast was administered. The protocol was not adequate to address the clinical question. The outside final report was available at the time of this second opinion interpretation. TYPE OF CONSULTATION: Consult on outside imaging study with images submitted through [facility] DATE OF CONSULTATION: 09/11/2020 5:39 PM HISTORY: Fall, cervical spine fracture COMPARISON: 08/23/2020 FINDINGS: This exam is mildly limited by streak artifact. ??Within these limitations, no acute intracranial hemorrhage is seen. ??There is no midline shift. ??The ventricles are within normal limits in size. ??The known C1 and C2 fractures are better evaluated on the dedicated cervical spine imaging. ??Limited views of the orbits are unremarkable. ??There are bilateral mastoid effusions. ??Multiple calcifications are noted within both parotid glands. Procedure Note Karoline Wild MD - 09/11/2020 EXAMINATION: RADIOLOGY CONSULTATION ON OUTSIDE IMAGING STUDY STUDY INITIALLY PERFORMED: 09/10/2020 at [facility]. TYPE OF STUDY: Multiple CT images of the head without contrast are provided at the time of this interpretation. CONTRAST ROUTE: No contrast was administered. The protocol was not adequate to address the clinical question. The outside final report was available at the time of this second opinion interpretation. TYPE OF CONSULTATION: Consult on outside imaging study with images submitted through [facility] DATE OF CONSULTATION: 09/11/2020 5:39 PM HISTORY: Fall, cervical spine fracture COMPARISON: 08/23/2020 FINDINGS: This exam is mildly limited by streak artifact. Within these limitations, no acute intracranial hemorrhage is seen. There is no midline shift. The ventricles are within normal limits in size. The known C1 and C2 fractures are better evaluated on the dedicated cervical spine imaging. Limited views of the orbits are unremarkable. There are bilateral mastoid effusions. Multiple calcifications are noted within both parotid glands. IMPRESSION: Limited exam due to streak artifact. Within these limitations, no definite large acute intracranial hemorrhage is seen. The findings, conclusions and recommendations within this report do not replace the initial findings, conclusions and recommendations made at the facility where the study was performed based upon the imaging and clinical condition at that time. Comparison with the prior report and clinical history is necessary. The provided images may or may not represent the [place] source data set and thus may contain changes that may lower the accuracy of this second-opinion interpretation. Electronically signed by: Karoline Wild M.D. us Jenny Varela MD [facility] CT PROCEDURES Final Resul t * Neuro CT MR Outside Consult (09/11/2020 6:18 AM HEALTH AND FITNESS PROFESSOR) Anatomical Region Laterality Modality N/A Computed Tomogra phy 09/11/2020 5:39 PM HEALTH AND FITNESS PROFESSOR Impressions 09/11/2020 5:39 PM HEALTH AND FITNESS PROFESSOR This study was initially nominated as a consult on outside images via [facility]. However, a consult was not performed because subsequent dedicated cervical spine MRI and CTA were performed at our institution. ??Accordingly, there will be no separate report of this study generated by a [facility] Radiologist. Electronically signed by: Karoline Wild M.D. Narrative 09/11/2020 5:39 PM HEALTH AND FITNESS PROFESSOR EXAMINATION: ??CHANGE CONSULT ON OUTSIDE IMAGES TO [...] report of this study generated by a [facility] Radiologist. Electronically signed by: Karoline Wild M.D. us Jenny Varela MD [facility] CT PROCEDURES Final Resul t * ECG 12 lead (09/11/2020 4:19 AM HEALTH AND FITNESS PROFESSOR) Ventricular Rate EKG/Min 83 BPM [facility] Atrial Rate 83 BPM [facility] AR-Interval (MSEC) 130 ms [facility] QRS-Interval (MSEC) 70 ms [facility] QT-Interval (MSEC) 340 ms [facility] QTc 399 ms [facility] P [place] 14 degrees [facility] R [place] 6 degrees [facility] T [place] 6 degrees [facility] Diagnosis Normal sinus rhythm Normal ECG No previous ECGs available Confirmed by CECILIO MCMAHON M.D ([id number]) on 09/12/2020 2:53:06 PM [facility] 09/11/2020 4:19 AM HEALTH AND FITNESS PROFESSOR 09/12/2020 2:53 PM HEALTH AND FITNESS PROFESSOR us Debby Hebert MD ECG ORDERABLES Final Result [facility] * CTA Neck W WO Contrast (09/10/2020 11:19 PM HEALTH AND FITNESS PROFESSOR) Anatomical Region Laterality Modality Head and Neck N/A Computed Tomogra phy 09/10/2020 11:5 4 PM HEALTH AND FITNESS PROFESSOR Impressions 09/11/2020 7:13 PM HEALTH AND FITNESS PROFESSOR 1. Right vertebral artery is dominant. No definite CTA evidence of injury to the vertebral arteries or carotid arteries. Very mild irregularity and tortuosity of the carotid and vertebral arteries is favored to be senescent and atherosclerotic in etiology. 2. Type III odontoid fracture and fractures of the right and left posterior arches of C1, as detailed on dedicated cervical spine imaging. 3. Incidental 2 cm right thyroid nodule. If clinically warranted, this could be evaluated on a nonemergent basis with outpatient ultrasound. Dictated by: Angelica Salcedo M.D. The radiology attending physician has personally reviewed this study, and had reviewed and/or edited this written report and agrees with it. Electronically signed by: Karoline Wild M.D. Narrative 09/11/2020 7:13 PM HEALTH AND FITNESS PROFESSOR EXAMINATION: Computed tomography angiography (CTA) of the neck with contrast HISTORY: 79-year-old with odontoid fracture TECHNIQUE: Computed tomographic angiography was ??obtained from the aortic arch to the skull base following the uneventful administration of intravenous contrast. 3D images were generated on a dedicated workstation. Contrast information: 100 mL [id number] COMPARISON: Same day MRI of the cervical spine. FINDINGS: Scattered subcentimeter lymph nodes are seen in the neck. None are pathologically enlarged or abnormally enhancing. The muscles of the neck are normal. Fascial planes are preserved and the deep spaces of the neck are normal. The visualized airway is widely patent. Subcentimeter hypoattenuating left thyroid nodule and 2 cm right thyroid nodule. Limited views of the face and skull are unremarkable. There are bilateral mastoid effusions. There is a fracture through the base of the dens (type III). There are fractures through the right and left posterior arches of C1. There is multilevel degenerative disc disease. The spinal canal is normal in caliber. Multilevel facet and uncovertebral joint arthropathy with up to moderate neural foraminal stenosis, right greater than left. There is mild depression of superior endplate of T3 which appears chronic and may be related to a Schmorl's node. Limited examination of the superior thorax shows no pulmonary infiltrate, suspicious nodules, or pleural effusions. There is paraseptal and centrilobular emphysema. Scattered 3-4 mm nodules in the right upper lobe may be inflammatory or sequela of prior infection, given prior severe right upper lobe pneumonia in 2015. Angiographic findings: The visualized aortic arch appears normal with normal configuration of the great vessels. The innominate artery and both subclavian arteries are normal in course and caliber. The common carotid arteries are normal in course and caliber with normal carotid bifurcations bilaterally. The course and caliber of the right internal carotid arteries is normal. There is tortuosity and mild irregularity of the left internal carotid artery . No areas of atherosclerotic narrowing or filling defects are identified. The right vertebral artery is dominant. Left vertebral artery arises from the aortic arch, normal anatomic variant. The left V3 segment is patent, but mildly tortuous and slightly irregular in caliber between the V2 and V3 segments (coronal series 8, image 59). The visualized portion of the basilar artery is normal. Procedure Note Karoline Wild MD - 09/11/2020 EXAMINATION: Computed tomography angiography (CTA) of the neck with contrast HISTORY: 79-year-old with odontoid fracture TECHNIQUE: Computed tomographic angiography was obtained from the aortic arch to the skull base following the uneventful administration of intravenous contrast. 3D images were generated on a dedicated workstation. Contrast information: 100 mL [id number]-350 COMPARISON: Same day MRI of the cervical spine. FINDINGS: Scattered subcentimeter lymph nodes are seen in the neck. None are pathologically enlarged or abnormally enhancing. The muscles of the neck are normal. Fascial planes are preserved and the deep spaces of the neck are normal. The visualized airway is widely patent. Subcentimeter hypoattenuating left thyroid nodule and 2 cm right thyroid nodule. Limited views of the face and skull are unremarkable. There are bilateral mastoid effusions. There is a fracture through the base of the dens (type III). There are fractures through the right and left posterior arches of C1. There is multilevel degenerative disc disease. The spinal canal is normal in caliber. Multilevel facet and uncovertebral joint arthropathy with up to moderate neural foraminal stenosis, right greater than left. There is mild depression of superior endplate of T3 which appears chronic and may be related to a Schmorl's node. Limited examination of the superior thorax shows no pulmonary infiltrate, suspicious nodules, or pleural effusions. There is paraseptal and centrilobular emphysema. Scattered 3-4 mm nodules in the right upper lobe may be inflammatory or sequela of prior infection, given prior severe right upper lobe pneumonia in 2015. Angiographic findings: The visualized aortic arch appears normal with normal configuration of the great vessels. The innominate artery and both subclavian arteries are normal in course and caliber. The common carotid arteries are normal in course and caliber with normal carotid bifurcations bilaterally. The course and caliber of the right internal carotid arteries is normal. There is tortuosity and mild irregularity of the left internal carotid artery . No areas of atherosclerotic narrowing or filling defects are identified. The right vertebral artery is dominant. Left vertebral artery arises from the aortic arch, normal anatomic variant. The left V3 segment is patent, but mildly tortuous and slightly irregular in caliber between the V2 and V3 segments (coronal series 8, image 59). The visualized portion of the basilar artery is normal. IMPRESSION: 1. Right vertebral artery is dominant. No definite CTA evidence of injury to the vertebral arteries or carotid arteries. Very mild irregularity and tortuosity of the carotid and vertebral arteries is favored to be senescent and atherosclerotic in etiology. 2. Type III odontoid fracture and fractures of the right and left posterior arches of C1, as detailed on dedicated cervical spine imaging. 3. Incidental 2 cm right thyroid nodule. If clinically warranted, this could be evaluated on a nonemergent basis with outpatient ultrasound. Dictated by: Angelica Salcedo M.D. The radiology attending physician has personally reviewed this study, and had reviewed and/or edited this written report and agrees with it. Electronically signed by: Karoline Wild M.D. us Darvin Ponce MD IMG CT PROCEDURES Final Resul t * AR CRITICAL CARE ILL/INJURED PATIENT INIT 30-74 MIN (09/10/2020 10:07 PM HEALTH AND FITNESS PROFESSOR) Narrative Tish Sharma MD - 09/10/2020 10:07 PM HEALTH AND FITNESS PROFESSOR Tish Sharma MD ? 09/14/2020 ??5:08 PM Critical Care Performed by: Tish Sharma MD Authorized by: Edwin Moore MD PhD Critical care provider statement: As reflected in the history, physical exam, orders, notes, and/or MDM, I was personally present while the patient was critically ill and provided critical care services for approximately 35 minutes, excluding time involved in separately billable procedures. ??Critical care was necessary to treat or prevent imminent or life-threatening deterioration of the following condition(s): ?? spinal cord injury/spine fracture ??Critical care was time spent by me providing the following: ? continuous telemetry, continuous pulse oximetry, interpretation of bedside monitors, imaging, and arterial/venous lab draws and serial bedside patient exams ?? frequent neurologic exams ?? spinal immobilization ?? I provided emergent necessary critical care medicine services to this patient. I ordered and reviewed test results and/or imaging studies. I spent time discussing the management of this critically ill patient with consultants and the medical staff. I spent time discussing the management and therapeutic options for this critically ill patient with the patient themselves or with the appropriate designated surrogate decision-maker. I spent time documenting in the medical record. I admitted this patient to a continuous cardiac monitored bed. us Edwin Moore MD PhD IN CLINIC/BEDSIDE ORD ERABLES Edited Result - Final * ECG 12-LEAD (09/10/2020 9:46 PM HEALTH AND FITNESS PROFESSOR) Narrative [facility] - 09/10/2020 9:46 PM HEALTH AND FITNESS PROFESSOR Edwin Moore MD PhD ? 09/10/2020 ??9:46 PM ECG 12 lead Date/Time: 09/10/2020 9:46 PM Performed by: Edwin Moore MD PhD Authorized by: Darvin Ponce MD Rate: ??ECG rate: ??102 ??ECG rate assessment: tachycardic ?? Rhythm: ??Rhythm: sinus tachycardia ?? Ectopy: ??Ectopy: none ?? QRS: ??QRS axis: ??Normal ??QRS intervals: ??Normal Conduction: ??Conduction: normal ?? ST segments: ??ST segments: ??Normal T waves: ??T waves: normal ?? Previous ECG: ??Previous ECG: ??Unavailable Interpretation: ??Interpretation: non-specific ?? Recommended Follow-up: ??Recommended follow up: further workup in the ED ?? Comments: ?? Attending physician interpretation: ??This ECG is remarkable only for the tachycardia. ??Is otherwise normal Procedure Note Edwin Moore MD PhD - 09/10/2020 9:46 PM CST Procedure ECG 12 lead Date/Time: 09/10/2020 9:46 PM Performed by: Edwin Moore MD PhD Authorized by: Darvin Ponce MD Rate: ECG rate: 102 ECG rate assessment: tachycardic Rhythm: Rhythm: sinus tachycardia Ectopy: Ectopy: none QRS: QRS axis: Normal QRS intervals: Normal Conduction: Conduction: normal ST segments: ST segments: Normal T waves: T waves: normal Previous ECG: Previous ECG: Unavailable Interpretation: Interpretation: non-specific Recommended Follow-up: Recommended follow up: further workup in the ED Comments: Attending physician interpretation: This ECG is remarkable only forthe tachycardia. Is otherwise normal Edwin Moore MD PhD 09/10/20 [id number] us Darvin Ponce MD ECG ORDERABLES Final Result [facility] * Differential, auto (09/10/2020 9:24 PM HEALTH AND FITNESS PROFESSOR) Neutrophil abs 4.7 1.7 - 6.5 K/cumm [facility] Imm gran abs 0.0 0.0 - 0.1 K/cumm [facility] Lymphocyte abs 0.9 0.8 - 3.3 K/cumm [facility] Monocyte abs 0.6 0.2 - 0.8 K/cumm [facility] Eosinophil abs 0.0 0.0 - 0.5 K/cumm [facility] Basophil abs 0.0 0.0 - 0.1 K/cumm [facility] Neutrophil pct 75.9 % [facility] Comment: Interpretive Data Percent cell count reference ranges are not reported, since discordance with absolute values may lead to misinterpretation of CBC data. Current Interpretive Data was last revised on 2017. Imm gran pct 0.3 % [facility] Comment: Interpretive Data Percent cell count reference ranges are not reported, since discordance with absolute values may lead to misinterpretation of CBC data. Current Interpretive Data was last revised on 2017. Lymphocyte pct 14.5 % [facility] Comment: Interpretive Data Percent cell count reference ranges are not reported, since discordance with absolute values may lead to misinterpretation of CBC data. Current Interpretive Data was last revised on 2017. Monocyte pct 8.9 % [facility] Comment: Interpretive Data Percent cell count reference ranges are not reported, since discordance with absolute values may lead to misinterpretation of CBC data. Current Interpretive Data was last revised on 2017. Eosinophil pct 0.2 % [facility] Comment: Interpretive Data Percent cell count reference ranges are not reported, since discordance with absolute values may lead to misinterpretation of CBC data. Current Interpretive Data was last revised on 2017. Basophil pct 0.2 % [facility] Comment: Interpretive Data Percent cell count reference ranges are not reported, since discordance with absolute values may lead to misinterpretation of CBC data. Current Interpretive Data was last revised on 2017. Blood specimen (specimen) 09/10/2020 9:24 PM HEALTH AND FITNESS PROFESSOR 09/10/2020 9:34 PM HEALTH AND FITNESS PROFESSOR us Tish Sharma MD LAB BLOOD ORDERABL ES Final Result [facility] Department [place] [address] * (ABNORMAL) CBC with auto differential (09/10/2020 9:24 PM HEALTH AND FITNESS PROFESSOR) [facility] Signature WBC 6.2 3.8 - 9.9 K/cumm [facility] Hgb 9.5(L) 11.9 - 15.5 g/dL [facility] Hct 32.7(L) 35.6 - 45.5 % [facility] Plt 205 150 - 400 K/cumm [facility] MPV 10.1 9.1 - 12.3 fL [facility] RBC 3.79(L) 3.90 - 5.20 M/cumm [facility] MCV 86.3 81.3 - 96.4 fL [facility] MCH 25.1(L) 27.1 - 33.3 pg [facility] MCHC 29.1(L) 32.3 - 35.7 g/dL [facility] RDW CV 22.4(H) 11.1 - 14.9 % [facility] RDW SD 69.2(H) 35.7 - 48.1 fL [facility] NRBC abs 0.00 0.00 - 0.01 K/cumm [facility] Blood specimen (specimen) 09/10/2020 9:24 PM HEALTH AND FITNESS PROFESSOR 09/10/2020 9:34 PM HEALTH AND FITNESS PROFESSOR Narrative [facility] - 09/10/2020 9:44 PM HEALTH AND FITNESS PROFESSOR THE COLLECTION LOCATION IS [address] us Tish Sharma MD LAB BLOOD ORDERABL ES Final Result [facility] Department [place] [address] * MRI Cervical Spine WO Contrast (09/10/2020 9:16 PM HEALTH AND FITNESS PROFESSOR) Anatomical Region Laterality Modality Spine N/A Magnetic Resonan ce 09/10/2020 10:3 8 PM HEALTH AND FITNESS PROFESSOR Impressions 09/10/2020 10:54 PM HEALTH AND FITNESS PROFESSOR 1. Severely motion degraded study. 2. Odontoid fracture with prevertebral fluid collection and sprain of nuchal ligament; possible injury of other craniocervical ligaments which is difficult to evaluate due to motion artifact. Recommend follow-up when the patient able to tolerate MRI. 3. Left vertebral artery irregularity in the V2/V3 segment, further evaluation with CT angiography is recommended. ??Recommend CT cervical spine reconstructions from CTA study to better evaluate fractures. 4. Thyroid nodules for which further evaluation with ultrasound is recommended. Findings discussed with Dr. Boston at 10:53 PM to 09/10/2020. Dictated by: Miguel Henriquez MD, PHD The radiology attending physician has personally reviewed this study, and had reviewed and/or edited this written report and agrees with it. Electronically signed by: Makenna Jernigan M.D. Narrative 09/10/2020 10:54 PM HEALTH AND FITNESS PROFESSOR EXAMINATION: Magnetic resonance imaging (MRI) of the cervical spine without contrast HISTORY: Trauma TECHNIQUE: Multiplanar multi-weighted MRI of the cervical spine was performed without intravenous contrast using the standard cervical spine protocol. Contrast information: 0 mL Dotarem COMPARISON: Radiograph cervical 09/10/2020 FINDINGS: The study is severely motion degraded. There is odontoid fracture. There is T2 hyperintensity involving the nuchal ligament, likely representing ligamentous strain. There is fluid collection in the cervical prevertebral space. There is probably T2 hyperintensity in the expected regions of the tentorial membrane, alar ligament, and anterior atlanto-occipital membrane, however, evaluation of which are hindered ??by motion artifact. ?? There is irregularity of the left vertebral artery in the V2/V3 segments. There are bilateral thyroid nodules. Procedure Note Makenna Hall MD - 09/10/2020 EXAMINATION: Magnetic resonance imaging (MRI) of the cervical spine without contrast HISTORY: Trauma TECHNIQUE: Multiplanar multi-weighted MRI of the cervical spine was performed without intravenous contrast using the standard cervical spine protocol. Contrast information: 0 mL Dotarem COMPARISON: Radiograph cervical 09/10/2020 FINDINGS: The study is severely motion degraded. There is odontoid fracture. There is T2 hyperintensity involving the nuchal ligament, likely representing ligamentous strain. There is fluid collection in the cervical prevertebral space. There is probably T2 hyperintensity in the expected regions of the tentorial membrane, alar ligament, and anterior atlanto-occipital membrane, however, evaluation of which are hindered by motion artifact. There is irregularity of the left vertebral artery in the V2/V3 segments. There are bilateral thyroid nodules. IMPRESSION: 1. Severely motion degraded study. 2. Odontoid fracture with prevertebral fluid collection and sprain of nuchal ligament; possible injury of other craniocervical ligaments which is difficult to evaluate due to motion artifact. Recommend follow-up when the patient able to tolerate MRI. 3. Left vertebral artery irregularity in the V2/V3 segment, further evaluation with CT angiography is recommended. Recommend CT cervical spine reconstructions from CTA study to better evaluate fractures. 4. Thyroid nodules for which further evaluation with ultrasound is recommended. Findings discussed with Dr. Boston at 10:53 PM to 09/10/2020. Dictated by: Miguel Henriquez MD, PHD The radiology attending physician has personally reviewed this study, and had reviewed and/or edited this written report and agrees with it. Electronically signed by: Makenna Jernigan M.D. Darvin Ponce MD IMG MRI PROCEDURES Final Resu lt * XR Spine Thoracic 3 Vw (09/10/2020 8:35 PM HEALTH AND FITNESS PROFESSOR) Anatomical Region Laterality Modality Spine N/A Computed Radiogr aphy 09/10/2020 9:26 PM HEALTH AND FITNESS PROFESSOR Impressions 09/10/2020 9:27 PM HEALTH AND FITNESS PROFESSOR 1. ??Displaced fracture through the posterior elements of C1 with subtle irregularity/step off along the posterior aspect of the dens may correlate to the patient's reported C1 and C2 fractures. 2. Unchanged compression deformities involving T12 and T11 and to a lesser extent T10. 3. No definite fracture involving the lumbar spine, sacrum, coccyx, and pelvis. Dictated by: Caitlin Monet M.D. The radiology attending physician has personally reviewed this study, and had reviewed and/or edited this written report and agrees with it. Electronically signed by: Altaf Ascencio M.D. Narrative 09/10/2020 9:27 PM HEALTH AND FITNESS PROFESSOR EXAMINATION: 1. XR SPINE CERVICAL 2 OR 3 VIEWS 2. XR PELVIS 1 OR 2 VIEWS 3. XR SPINE THORACIC 3 VIEWS 4. XR SPINE LUMBAR 2 OR 3 VIEWS 5. XR SACRUM COCCYX 2 OR MORE VIEWS HISTORY: ??Fall COMPARISON: 08/23/2020. FINDINGS: Cervical spine: There is a displaced fracture through the posterior elements of the C1 vertebral body. There is a subtle irregularity/step off along the posterior aspect of the dens which may correlate to the patient's reported history of a C2 fracture. The lateral masses of the C1 and C2 vertebral body appear aligned. Subtle asymmetry of the left lateral atlantodental interval compared to the right on the open-mouth view may be positional. Vertebral body heights are maintained. Multilevel degenerative changes are noted throughout the cervical spine. No definite prevertebral soft tissue swelling. Thoracic spine: There is hyperkyphosis of the thoracic spine. Multiple compression deformities predominantly involving the T12 and T11 and to a lesser extent T10 appear unchanged when compared to prior CT dated 08/23/2020. Multilevel degenerative changes throughout the thoracic spine. Lumbar spine/sacrum/coccyx: Exaggeration of the normal lumbar lordosis. The vertebral body heights are maintained. Multilevel degenerative changes. No definite acute fracture. Pelvis: No acute fracture or dislocation. Subtle offset at the pubic symphysis is unchanged. Alignment is normal. The bilateral hip and sacroiliac joints are normal. Extensive vascular calcifications are noted. Procedure Note Altaf Ascencio MD - 09/10/2020 EXAMINATION: 1. XR SPINE CERVICAL 2 OR 3 VIEWS 2. XR PELVIS 1 OR 2 VIEWS 3. XR SPINE THORACIC 3 VIEWS 4. XR SPINE LUMBAR 2 OR 3 VIEWS 5. XR SACRUM COCCYX 2 OR MORE VIEWS HISTORY: Fall COMPARISON: 08/23/2020. FINDINGS: Cervical spine: There is a displaced fracture through the posterior elements of the C1 vertebral body. There is a subtle irregularity/step off along the posterior aspect of the dens which may correlate to the patient's reported history of a C2 fracture. The lateral masses of the C1 and C2 vertebral body appear aligned. Subtle asymmetry of the left lateral atlantodental interval compared to the right on the open-mouth view may be positional. Vertebral body heights are maintained. Multilevel degenerative changes are noted throughout the cervical spine. No definite prevertebral soft tissue swelling. Thoracic spine: There is hyperkyphosis of the thoracic spine. Multiple compression deformities predominantly involving the T12 and T11 and to a lesser extent T10 appear unchanged when compared to prior CT dated 08/23/2020. Multilevel degenerative changes throughout the thoracic spine. Lumbar spine/sacrum/coccyx: Exaggeration of the normal lumbar lordosis. The vertebral body heights are maintained. Multilevel degenerative changes. No definite acute fracture. Pelvis: No acute fracture or dislocation. Subtle offset at the pubic symphysis is unchanged. Alignment is normal. The bilateral hip and sacroiliac joints are normal. Extensive vascular calcifications are noted. IMPRESSION: 1. Displaced fracture through the posterior elements of C1 with subtle irregularity/step off along the posterior aspect of the dens may correlate to the patient's reported C1 and C2 fractures. 2. Unchanged compression deformities involving T12 and T11 and to a lesser extent T10. 3. No definite fracture involving the lumbar spine, sacrum, coccyx, and pelvis. Dictated by: Caitlin Monet M.D. The radiology attending physician has personally reviewed this study, and had reviewed and/or edited this written report and agrees with it. Electronically signed by: Altaf Ascencio M.D. Darvin Ponce MD IM XR PROCEDURES Final Resul t * XR Spine Lumbar 2 or 3 Views (09/10/2020 8:35 PM HEALTH AND FITNESS PROFESSOR) Anatomical Region Laterality Modality Spine N/A Computed Radiogr aphy 09/10/2020 9:26 PM HEALTH AND FITNESS PROFESSOR Impressions 09/10/2020 9:27 PM HEALTH AND FITNESS PROFESSOR 1. ??Displaced fracture through the posterior elements of C1 with subtle irregularity/step off along the posterior aspect of the dens may correlate to the patient's reported C1 and C2 fractures. 2. Unchanged compression deformities involving T12 and T11 and to a lesser extent T10. 3. No definite fracture involving the lumbar spine, sacrum, coccyx, and pelvis. Dictated by: Caitlin Monet M.D. The radiology attending physician has personally reviewed this study, and had reviewed and/or edited this written report and agrees with it. Electronically signed by: Altaf Ascencio M.D. Narrative 09/10/2020 9:27 PM HEALTH AND FITNESS PROFESSOR EXAMINATION: 1. XR SPINE CERVICAL 2 OR 3 VIEWS 2. XR PELVIS 1 OR 2 VIEWS 3. XR SPINE THORACIC 3 VIEWS 4. XR SPINE LUMBAR 2 OR 3 VIEWS 5. XR SACRUM COCCYX 2 OR MORE VIEWS HISTORY: ??Fall COMPARISON: 08/23/2020. FINDINGS: Cervical spine: There is a displaced fracture through the posterior elements of the C1 vertebral body. There is a subtle irregularity/step off along the posterior aspect of the dens which may correlate to the patient's reported history of a C2 fracture. The lateral masses of the C1 and C2 vertebral body appear aligned. Subtle asymmetry of the left lateral atlantodental interval compared to the right on the open-mouth view may be positional. Vertebral body heights are maintained. Multilevel degenerative changes are noted throughout the cervical spine. No definite prevertebral soft tissue swelling. Thoracic spine: There is hyperkyphosis of the thoracic spine. Multiple compression deformities predominantly involving the T12 and T11 and to a lesser extent T10 appear unchanged when compared to prior CT dated 08/23/2020. Multilevel degenerative changes throughout the thoracic spine. Lumbar spine/sacrum/coccyx: Exaggeration of the normal lumbar lordosis. The vertebral body heights are maintained. Multilevel degenerative changes. No definite acute fracture. Pelvis: No acute fracture or dislocation. Subtle offset at the pubic symphysis is unchanged. Alignment is normal. The bilateral hip and sacroiliac joints are normal. Extensive vascular calcifications are noted. Procedure Note Altaf Ascencio MD - 09/10/2020 EXAMINATION: 1. XR SPINE CERVICAL 2 OR 3 VIEWS 2. XR PELVIS 1 OR 2 VIEWS 3. XR SPINE THORACIC 3 VIEWS 4. XR SPINE LUMBAR 2 OR 3 VIEWS 5. XR SACRUM COCCYX 2 OR MORE VIEWS HISTORY: Fall COMPARISON: 08/23/2020. FINDINGS: Cervical spine: There is a displaced fracture through the posterior elements of the C1 vertebral body. There is a subtle irregularity/step off along the posterior aspect of the dens which may correlate to the patient's reported history of a C2 fracture. The lateral masses of the C1 and C2 vertebral body appear aligned. Subtle asymmetry of the left lateral atlantodental interval compared to the right on the open-mouth view may be positional. Vertebral body heights are maintained. Multilevel degenerative changes are noted throughout the cervical spine. No definite prevertebral soft tissue swelling. Thoracic spine: There is hyperkyphosis of the thoracic spine. Multiple compression deformities predominantly involving the T12 and T11 and to a lesser extent T10 appear unchanged when compared to prior CT dated 08/23/2020. Multilevel degenerative changes throughout the thoracic spine. Lumbar spine/sacrum/coccyx: Exaggeration of the normal lumbar lordosis. The vertebral body heights are maintained. Multilevel degenerative changes. No definite acute fracture. Pelvis: No acute fracture or dislocation. Subtle offset at the pubic symphysis is unchanged. Alignment is normal. The bilateral hip and sacroiliac joints are normal. Extensive vascular calcifications are noted. IMPRESSION: 1. Displaced fracture through the posterior elements of C1 with subtle irregularity/step off along the posterior aspect of the dens may correlate to the patient's reported C1 and C2 fractures. 2. Unchanged compression deformities involving T12 and T11 and to a lesser extent T10. 3. No definite fracture involving the lumbar spine, sacrum, coccyx, and pelvis. Dictated by: Caitlin Monet M.D. The radiology attending physician has personally reviewed this study, and had reviewed and/or edited this written report and agrees with it. Electronically signed by: Altaf Ascencio M.D. Darvin Ponce MD IMG XR PROCEDURES Final Resul t * XR Sacrum Coccyx 2 or More Views (09/10/2020 8:35 PM HEALTH AND FITNESS PROFESSOR) Anatomical Region Laterality Modality Pelvis, Body N/A Computed Radiogr aphy 09/10/2020 9:26 PM HEALTH AND FITNESS PROFESSOR Impressions 09/10/2020 9:27 PM HEALTH AND FITNESS PROFESSOR 1. ??Displaced fracture through the posterior elements of C1 with subtle irregularity/step off along the posterior aspect of the dens may correlate to the patient's reported C1 and C2 fractures. 2. Unchanged compression deformities involving T12 and T11 and to a lesser extent T10. 3. No definite fracture involving the lumbar spine, sacrum, coccyx, and pelvis. Dictated by: Caitlin Monet M.D. The radiology attending physician has personally reviewed this study, and had reviewed and/or edited this written report and agrees with it. Electronically signed by: Altaf Ascencio M.D. Narrative 09/10/2020 9:27 PM HEALTH AND FITNESS PROFESSOR EXAMINATION: 1. XR SPINE CERVICAL 2 OR 3 VIEWS 2. XR PELVIS 1 OR 2 VIEWS 3. XR SPINE THORACIC 3 VIEWS 4. XR SPINE LUMBAR 2 OR 3 VIEWS 5. XR SACRUM COCCYX 2 OR MORE VIEWS HISTORY: ??Fall COMPARISON: 08/23/2020. FINDINGS: Cervical spine: There is a displaced fracture through the posterior elements of the C1 vertebral body. There is a subtle irregularity/step off along the posterior aspect of the dens which may correlate to the patient's reported history of a C2 fracture. The lateral masses of the C1 and C2 vertebral body appear aligned. Subtle asymmetry of the left lateral atlantodental interval compared to the right on the open-mouth view may be positional. Vertebral body heights are maintained. Multilevel degenerative changes are noted throughout the cervical spine. No definite prevertebral soft tissue swelling. Thoracic spine: There is hyperkyphosis of the thoracic spine. Multiple compression deformities predominantly involving the T12 and T11 and to a lesser extent T10 appear unchanged when compared to prior CT dated 08/23/2020. Multilevel degenerative changes throughout the thoracic spine. Lumbar spine/sacrum/coccyx: Exaggeration of the normal lumbar lordosis. The vertebral body heights are maintained. Multilevel degenerative changes. No definite acute fracture. Pelvis: No acute fracture or dislocation. Subtle offset at the pubic symphysis is unchanged. Alignment is normal. The bilateral hip and sacroiliac joints are normal. Extensive vascular calcifications are noted. Procedure Note Altaf Ascencio MD - 09/10/2020 EXAMINATION: 1. XR SPINE CERVICAL 2 OR 3 VIEWS 2. XR PELVIS 1 OR 2 VIEWS 3. XR SPINE THORACIC 3 VIEWS 4. XR SPINE LUMBAR 2 OR 3 VIEWS 5. XR SACRUM COCCYX 2 OR MORE VIEWS HISTORY: Fall COMPARISON: 08/23/2020. FINDINGS: Cervical spine: There is a displaced fracture through the posterior elements of the C1 vertebral body. There is a subtle irregularity/step off along the posterior aspect of the dens which may correlate to the patient's reported history of a C2 fracture. The lateral masses of the C1 and C2 vertebral body appear aligned. Subtle asymmetry of the left lateral atlantodental interval compared to the right on the open-mouth view may be positional. Vertebral body heights are maintained. Multilevel degenerative changes are noted throughout the cervical spine. No definite prevertebral soft tissue swelling. Thoracic spine: There is hyperkyphosis of the thoracic spine. Multiple compression deformities predominantly involving the T12 and T11 and to a lesser extent T10 appear unchanged when compared to prior CT dated 08/23/2020. Multilevel degenerative changes throughout the thoracic spine. Lumbar spine/sacrum/coccyx: Exaggeration of the normal lumbar lordosis. The vertebral body heights are maintained. Multilevel degenerative changes. No definite acute fracture. Pelvis: No acute fracture or dislocation. Subtle offset at the pubic symphysis is unchanged. Alignment is normal. The bilateral hip and sacroiliac joints are normal. Extensive vascular calcifications are noted. IMPRESSION: 1. Displaced fracture through the posterior elements of C1 with subtle irregularity/step off along the posterior aspect of the dens may correlate to the patient's reported C1 and C2 fractures. 2. Unchanged compression deformities involving T12 and T11 and to a lesser extent T10. 3. No definite fracture involving the lumbar spine, sacrum, coccyx, and pelvis. Dictated by: Caitlin Monet M.D. The radiology attending physician has personally reviewed this study, and had reviewed and/or edited this written report and agrees with it. Electronically signed by: Altaf Ascencio M.D. Darvin Ponce MD IMG XR PROCEDURES Final Resul t * XR Pelvis 1 or 2 Views (09/10/2020 8:34 PM HEALTH AND FITNESS PROFESSOR) Anatomical Region Laterality Modality Body, Pelvis N/A Computed Radiogr aphy 09/10/2020 9:26 PM HEALTH AND FITNESS PROFESSOR Impressions 09/10/2020 9:27 PM HEALTH AND FITNESS PROFESSOR 1. ??Displaced fracture through the posterior elements of C1 with subtle irregularity/step off along the posterior aspect of the dens may correlate to the patient's reported C1 and C2 fractures. 2. Unchanged compression deformities involving T12 and T11 and to a lesser extent T10. 3. No definite fracture involving the lumbar spine, sacrum, coccyx, and pelvis. Dictated by: Caitlin Monet M.D. The radiology attending physician has personally reviewed this study, and had reviewed and/or edited this written report and agrees with it. Electronically signed by: Altaf Ascencio M.D. Narrative 09/10/2020 9:27 PM HEALTH AND FITNESS PROFESSOR EXAMINATION: 1. XR SPINE CERVICAL 2 OR 3 VIEWS 2. XR PELVIS 1 OR 2 VIEWS 3. XR SPINE THORACIC 3 VIEWS 4. XR SPINE LUMBAR 2 OR 3 VIEWS 5. XR SACRUM COCCYX 2 OR MORE VIEWS HISTORY: ??Fall COMPARISON: 08/23/2020. FINDINGS: Cervical spine: There is a displaced fracture through the posterior elements of the C1 vertebral body. There is a subtle irregularity/step off along the posterior aspect of the dens which may correlate to the patient's reported history of a C2 fracture. The lateral masses of the C1 and C2 vertebral body appear aligned. Subtle asymmetry of the left lateral atlantodental interval compared to the right on the open-mouth view may be positional. Vertebral body heights are maintained. Multilevel degenerative changes are noted throughout the cervical spine. No definite prevertebral soft tissue swelling. Thoracic spine: There is hyperkyphosis of the thoracic spine. Multiple compression deformities predominantly involving the T12 and T11 and to a lesser extent T10 appear unchanged when compared to prior CT dated 08/23/2020. Multilevel degenerative changes throughout the thoracic spine. Lumbar spine/sacrum/coccyx: Exaggeration of the normal lumbar lordosis. The vertebral body heights are maintained. Multilevel degenerative changes. No definite acute fracture. Pelvis: No acute fracture or dislocation. Subtle offset at the pubic symphysis is unchanged. Alignment is normal. The bilateral hip and sacroiliac joints are normal. Extensive vascular calcifications are noted. Procedure Note Altaf Ascencio MD - 09/10/2020 EXAMINATION: 1. XR SPINE CERVICAL 2 OR 3 VIEWS 2. XR PELVIS 1 OR 2 VIEWS 3. XR SPINE THORACIC 3 VIEWS 4. XR SPINE LUMBAR 2 OR 3 VIEWS 5. XR SACRUM COCCYX 2 OR MORE VIEWS HISTORY: Fall COMPARISON: 08/23/2020. FINDINGS: Cervical spine: There is a displaced fracture through the posterior elements of the C1 vertebral body. There is a subtle irregularity/step off along the posterior aspect of the dens which may correlate to the patient's reported history of a C2 fracture. The lateral masses of the C1 and C2 vertebral body appear aligned. Subtle asymmetry of the left lateral atlantodental interval compared to the right on the open-mouth view may be positional. Vertebral body heights are maintained. Multilevel degenerative changes are noted throughout the cervical spine. No definite prevertebral soft tissue swelling. Thoracic spine: There is hyperkyphosis of the thoracic spine. Multiple compression deformities predominantly involving the T12 and T11 and to a lesser extent T10 appear unchanged when compared to prior CT dated 08/23/2020. Multilevel degenerative changes throughout the thoracic spine. Lumbar spine/sacrum/coccyx: Exaggeration of the normal lumbar lordosis. The vertebral body heights are maintained. Multilevel degenerative changes. No definite acute fracture. Pelvis: No acute fracture or dislocation. Subtle offset at the pubic symphysis is unchanged. Alignment is normal. The bilateral hip and sacroiliac joints are normal. Extensive vascular calcifications are noted. IMPRESSION: 1. Displaced fracture through the posterior elements of C1 with subtle irregularity/step off along the posterior aspect of the dens may correlate to the patient's reported C1 and C2 fractures. 2. Unchanged compression deformities involving T12 and T11 and to a lesser extent T10. 3. No definite fracture involving the lumbar spine, sacrum, coccyx, and pelvis. Dictated by: Caitlin Monet M.D. The radiology attending physician has personally reviewed this study, and had reviewed and/or edited this written report and agrees with it. Electronically signed by: Altaf Ascencio M.D. Darvin Ponce MD IM XR PROCEDURES Final Resul t * XR Spine Cervical 2 or 3 Views (09/10/2020 8:34 PM HEALTH AND FITNESS PROFESSOR) Anatomical Region Laterality Modality Spine N/A Computed Radiogr aphy 09/10/2020 9:26 PM HEALTH AND FITNESS PROFESSOR Impressions 09/10/2020 9:27 PM HEALTH AND FITNESS PROFESSOR 1. ??Displaced fracture through the posterior elements of C1 with subtle irregularity/step off along the posterior aspect of the dens may correlate to the patient's reported C1 and C2 fractures. 2. Unchanged compression deformities involving T12 and T11 and to a lesser extent T10. 3. No definite fracture involving the lumbar spine, sacrum, coccyx, and pelvis. Dictated by: Caitlin Monet M.D. The radiology attending physician has personally reviewed this study, and had reviewed and/or edited this written report and agrees with it. Electronically signed by: Altaf Ascencio M.D. Narrative 09/10/2020 9:27 PM HEALTH AND FITNESS PROFESSOR EXAMINATION: 1. XR SPINE CERVICAL 2 OR 3 VIEWS 2. XR PELVIS 1 OR 2 VIEWS 3. XR SPINE THORACIC 3 VIEWS 4. XR SPINE LUMBAR 2 OR 3 VIEWS 5. XR SACRUM COCCYX 2 OR MORE VIEWS HISTORY: ??Fall COMPARISON: 08/23/2020. FINDINGS: Cervical spine: There is a displaced fracture through the posterior elements of the C1 vertebral body. There is a subtle irregularity/step off along the posterior aspect of the dens which may correlate to the patient's reported history of a C2 fracture. The lateral masses of the C1 and C2 vertebral body appear aligned. Subtle asymmetry of the left lateral atlantodental interval compared to the right on the open-mouth view may be positional. Vertebral body heights are maintained. Multilevel degenerative changes are noted throughout the cervical spine. No definite prevertebral soft tissue swelling. Thoracic spine: There is hyperkyphosis of the thoracic spine. Multiple compression deformities predominantly involving the T12 and T11 and to a lesser extent T10 appear unchanged when compared to prior CT dated 08/23/2020. Multilevel degenerative changes throughout the thoracic spine. Lumbar spine/sacrum/coccyx: Exaggeration of the normal lumbar lordosis. The vertebral body heights are maintained. Multilevel degenerative changes. No definite acute fracture. Pelvis: No acute fracture or dislocation. Subtle offset at the pubic symphysis is unchanged. Alignment is normal. The bilateral hip and sacroiliac joints are normal. Extensive vascular calcifications are noted. Procedure Note Altaf Ascencio MD - 09/10/2020 EXAMINATION: 1. XR SPINE CERVICAL 2 OR 3 VIEWS 2. XR PELVIS 1 OR 2 VIEWS 3. XR SPINE THORACIC 3 VIEWS 4. XR SPINE LUMBAR 2 OR 3 VIEWS 5. XR SACRUM COCCYX 2 OR MORE VIEWS HISTORY: Fall COMPARISON: 08/23/2020. FINDINGS: Cervical spine: There is a displaced fracture through the posterior elements of the C1 vertebral body. There is a subtle irregularity/step off along the posterior aspect of the dens which may correlate to the patient's reported history of a C2 fracture. The lateral masses of the C1 and C2 vertebral body appear aligned. Subtle asymmetry of the left lateral atlantodental interval compared to the right on the open-mouth view may be positional. Vertebral body heights are maintained. Multilevel degenerative changes are noted throughout the cervical spine. No definite prevertebral soft tissue swelling. Thoracic spine: There is hyperkyphosis of the thoracic spine. Multiple compression deformities predominantly involving the T12 and T11 and to a lesser extent T10 appear unchanged when compared to prior CT dated 08/23/2020. Multilevel degenerative changes throughout the thoracic spine. Lumbar spine/sacrum/coccyx: Exaggeration of the normal lumbar lordosis. The vertebral body heights are maintained. Multilevel degenerative changes. No definite acute fracture. Pelvis: No acute fracture or dislocation. Subtle offset at the pubic symphysis is unchanged. Alignment is normal. The bilateral hip and sacroiliac joints are normal. Extensive vascular calcifications are noted. IMPRESSION: 1. Displaced fracture through the posterior elements of C1 with subtle irregularity/step off along the posterior aspect of the dens may correlate to the patient's reported C1 and C2 fractures. 2. Unchanged compression deformities involving T12 and T11 and to a lesser extent T10. 3. No definite fracture involving the lumbar spine, sacrum, coccyx, and pelvis. Dictated by: Caitlin Monet M.D. The radiology attending physician has personally reviewed this study, and had reviewed and/or edited this written report and agrees with it. Electronically signed by: Altaf Ascencio M.D. Darvin Ponce MD IMG XR PROCEDURES Final Resul t * (ABNORMAL) Urinalysis, microscopic only (09/10/2020 7:55 PM HEALTH AND FITNESS PROFESSOR) WBC, ur 6-10(A) 0 - 5 /HPF [facility] RBC, ur >50(A) 0 - 2 /HPF [facility] Epithelial cells, squamous, ur 1-5 0 - 5 /HPF [facility] Mucous, ur Present(A) [facility] Amorphous crystals, ur Trace(A) [facility] Culture Reflex Comment Reflex conditions for urine culture (WBC >10) not met. [facility] Urine 09/10/2020 7:55 PM HEALTH AND FITNESS PROFESSOR 09/10/2020 8:12 PM HEALTH AND FITNESS PROFESSOR Darvin Ponce MD LAB URINE ORDERABLES Final Re sult [facility]GGIE ARAU[facility] Department [place] [address] * COVID-19 Coronavirus RNA Nasopharyngeal (09/10/2020 7:55 PM HEALTH AND FITNESS PROFESSOR) COVID-19 RNA Not Detected [facility]GGIE ARAUJO Comment: Testing performed as a component of ??a specimen pool. ??Negative results should be treated as presumptive and, if inconsistent with clinical signs and symptoms or necessary for patient management, pooled samples should be tested individually. Negative results do not preclude SARS-CoV-2 infection and must not be used as the sole basis for patient management decisions. Negative results must be considered in the context of a patient? s recent exposures, history, presence of clinical signs and symptoms consistent with COVID-19. Interpretive Data Synonyms for this test include: PCR and NAAT . ??Testing performed by the [facility] Infectious Disease [facility]. The 2019-Novel Coronavirus Assay (COVID-19)Real Time RT-PCR assay is for in vitro diagnostic use under FDA emergency use authorization only. A negative RT-PCR result does not preclude infection with COVID-19 and should not be used as the sole basis for treatment or other patient management decisions. ??Additional sample types have been validated according to CLIA regulations. ?? Current Interpretive Data was last revised on September 08, 2020. First COVID-19 test? No [facility] Comment:Testing performed by : [facility], [address] [place] [address], [place]., [address] Employeed in healthcare? No [facility] Comment:Testing performed by : [facility], [address] [place] [address]., [id number] status? No [facility] Comment:Testing performed by : [facility], [address] [place] [address]., [id number] Group care resident? No [facility] Comment:Testing performed by : [facility], [address] [place] [address]., [id number] Hospitalized? No [facility] Comment:Testing performed by : [facility], [address] [place]., [address] Is patient in ICU? No [facility] Comment:Testing performed by : [facility], [address] [facility], [address] Symptomatic as defined by CDC? No [facility] Comment:Testing performed by : [facility], [address] [place]., [address] Nasopharyngeal 09/10/2020 7: 55 PM HEALTH AND FITNESS PROFESSOR 09/10/2020 8:59 PM HEALTH AND FITNESS PROFESSOR Narrative [facility] - 09/12/2020 4:25 AM HEALTH AND FITNESS PROFESSOR What is the reason for testing?->Asymptomatic screening prior to procedure or surgery Darvin Ponce MD LAB MICROBIOLOGY - GENERAL OR DERABLES Final Result Performing Organization Address City/[facility]/ZIP Co de Phone Number [facility] Department [place] [address] * Type and screen (09/10/2020 7:55 PM HEALTH AND FITNESS PROFESSOR) Pathologist [facility] Sheng, indirect Negative [facility] ABO Rh A Positive [facility] Blood specimen (specimen) 09/10/2020 7:55 PM HEALTH AND FITNESS PROFESSOR 09/10/2020 8:18 PM HEALTH AND FITNESS PROFESSOR Narrative [facility] - 09/10/2020 9:19 PM HEALTH AND FITNESS PROFESSOR Has the patient had Daratumumab or Isatuximab in the past 6 months?->Unknown THE [facility] COLLECTION LOCATION IS [facility] Darvin Ponce MD LAB BLOOD BANK TEST ORDERABLE S Final Result [facility] Department [place] [address] * (ABNORMAL) Urinalysis reflex to microscopic and culture Urine (09/10/2020 7:55 PM HEALTH AND FITNESS PROFESSOR) Color, ur Yellow Yellow [facility] Clarity, ur Cloudy(A) Clear [facility] Specific gravity, ur 1.013 1.010 - 1.025 [facility] pH, urine 9 [facility] Protein, ur ql 1+(A) Negative [facility] Glucose, ur ql Negative Negative [facility] Ketones, ur 1+(A) Negative [facility] Bilirubin, ur Negative Negative [facility] Blood, ur 2+(A) Negative [facility] Urobilinogen, ur <2.0 <2.0 mg/dL [facility] Nitrite, ur Negative Negative [facility] Leukocyte esterase, ur Negative Negative [facility] UA reflex comment Reflex to microscopic UA will be performed. [facility] Urine 09/10/2020 7:55 PM HEALTH AND FITNESS PROFESSOR 09/10/2020 8:12 PM HEALTH AND FITNESS PROFESSOR [facility]ative [facility] - 09/10/2020 8:29 PM HEALTH AND FITNESS PROFESSOR THE [facility] COLLECTION LOCATION IS [address] Urine pH is affected by diet, medications, systemic acid-base disturbances, and renal tubular function. ??pH may affect urinary stone formation. ??For example, urine pH below 6.0 may help reduce the tendency for calcium phosphate stones and pH greater than 6.0 may reduce the tendency for uric acid stone formation. Source: [place]. Last revised 08-15-2017 us Darvin Ponce MD LAB MICROBIOLOGY - GENERAL OR DERABLES Final Result [facility] Department [place] [address] * aPTT (09/10/2020 7:55 PM HEALTH AND FITNESS PROFESSOR) aPTT 27 27 - 37 sec [facility] Comment: Interpretive data Heparin therapeutic range: 60-90 seconds Range based on correlation with therapeutic heparin activity range of 0.3-0.7 units/ml. Current interpretive data was last revised on 2019. Blood specimen (specimen) 09/10/2020 7:55 PM HEALTH AND FITNESS PROFESSOR 09/10/2020 8:38 PM HEALTH AND FITNESS PROFESSOR Narrative [facility] - 09/10/2020 8:46 PM HEALTH AND FITNESS PROFESSOR THE [facility] COLLECTION LOCATION IS [address] Darvin Ponce MD LAB BLOOD ORDERABLES Final Re sult Performing Organization Address [facility]/ZIP Co de Phone Number [facility] [place] [address] * Protime-INR (09/10/2020 7:55 PM HEALTH AND FITNESS PROFESSOR) Pathologist [facility] PT 11.5 9.5 - 13.6 sec [facility] INR 1.0 0.9 - 1.2 [facility] Comment: Interpretive data Oral anticoagulant therapeutic ranges: Venous thromboembolism prophylaxis or treatment: 2.0-3.0 CARDIOLOGY Standard range: 2.0-3.0 High-intensity range: 2.5-3.5 Refer to indication-specific guidelines for appropriate target ranges for prosthetic heart valve replacement. Current interpretive data was last revised on 2019. Blood specimen (specimen) 09/10/2020 7:55 PM HEALTH AND FITNESS PROFESSOR 09/10/2020 8:38 PM HEALTH AND FITNESS PROFESSOR Narrative [facility] - 09/10/2020 8:46 PM HEALTH AND FITNESS PROFESSOR THE [facility] COLLECTION LOCATION IS [address] us Darvin Ponce MD LAB BLOOD ORDERABLES Final Re sult Performing Organization Address [facility]/ZIP Co de Phone Number [facility] Department [place] [address] * (ABNORMAL) Comprehensive metabolic panel (09/10/2020 7:55 PM HEALTH AND FITNESS PROFESSOR) Sodium 144 135 - 145 mmol/L [facility] Potassium, pl 3.6 3.3 - 4.9 mmol/L [facility] Chloride 100 97 - 110 mmol/L [facility] CO2 39(H) 22 - 32 mmol/L [facility] Anion gap 5 2 - 15 mmol/L [facility] BUN 12 8 - 25 mg/dL [facility] Creatinine 0.38(L) 0.60 - 1.10 mg/dL [facility] Glucose 112 70 - 199 mg/dL [facility] Comment: Interpretive Data Fasting glucose >/= [...] interpretive data was last revised 2017. Calcium 8.6 8.5 - 10.3 mg/dL [facility] Bilirubin, total 0.4 0.1 - 1.2 mg/dL [facility] Protein, pl 6.4(L) 6.5 - 8.5 g/dL [facility] Albumin 3.3(L) 3.5 - 5.0 g/dL [facility] Alk phos 87 40 - 130 Units/L [facility] ALT 14 7 - 45 Units/L [facility] AST 21 10 - 45 Units/L [facility] Blood specimen (specimen) 09/10/2020 7:55 PM HEALTH AND FITNESS PROFESSOR 09/10/2020 8:26 PM HEALTH AND FITNESS PROFESSOR Narrative [facility] - 09/10/2020 8:50 PM HEALTH AND FITNESS PROFESSOR THE COLLECTION LOCATION IS [address] us Darvin Ponce MD LAB BLOOD ORDERABLES Final Re sult [facility] Department of Laboratories [place], [place] [id number] documented in this encounter Visit Diagnoses Diagnosis Closed unstable burst fracture of first cervical vertebra, initial encounter (HCC)- Primary Diagnosis unknown Closed odontoid fracture with type III morphology (HCC) Acute pain due to trauma Anxiety Anxiety state, unspecified Chronic congestive heart failure (CMS/HCC) (HCC) Congestive heart failure, unspecified Chronic obstructive pulmonary disease with acute exacerbation (HCC) Depression Depressive disorder, not elsewhere classified GERD (gastroesophageal reflux disease) Esophageal reflux HTN (hypertension) Unspecified essential hypertension Pulmonary hypertension, moderate to severe (HCC) Other chronic pulmonary heart diseases Sleep apnea Unspecified sleep apnea Syncope Syncope and collapse documented in this encounter Administered Medications Inactive Administered Medications - up to 3 most recent administrations Medication Order MAR Action Action Date Dose Rate Site acetaminophen (TYLENOL) tablet 1,000 mg 1,000 mg, oral, Every 6 hours scheduled, First dose on Sat09/11/20 at 0000 Given 09/11/2020 12:26 AM HEALTH AND FITNESS PROFESSOR 1,000 mg acetaminophen (TYLENOL) tablet 1,000 mg 1,000 mg, oral, Every 8 hours, First dose on Sat09/11/20 at 0330 Given 09/16/2020 1:09 PM HEALTH AND FITNESS PROFESSOR 1,000 mg Given 09/16/2020 2:09 AM HEALTH AND FITNESS PROFESSOR 1,000 mg Given 09/15/2020 8:28 PM HEALTH AND FITNESS PROFESSOR 1,000 mg albuterol HFA (PROVENTIL HFA,VENTOLIN HFA,PROAIR HFA) 90 mcg/actuation inhaler 2 puff 2 puff, inhalation, Every 4 hours PRN (correspondence representative), wheezing, Starting on Sat09/11/20 at 0304 amitriptyline (ELAVIL) tablet 25 mg 25 mg, oral, Daily, First dose on Sat09/13/20 at 0900 Given 09/16/2020 10:38 AM HEALTH AND FITNESS PROFESSOR 25 mg Given 09/15/2020 9:36 AM HEALTH AND FITNESS PROFESSOR 25 mg Given 09/14/2020 9:20 AM HEALTH AND FITNESS PROFESSOR 25 mg busPIRone (BUSPAR) tablet 10 mg 10 mg, oral, 2 times daily, First dose on Sat09/12/20 at 0900, Indications: Generalized Anxiety DisorderIndications:Generalized Anxiety Disorder Given 09/16/2020 10:39 AM HEALTH AND FITNESS PROFESSOR 10 mg Given 09/15/2020 8:28 PM HEALTH AND FITNESS PROFESSOR 10 mg Given 09/15/2020 9:35 AM HEALTH AND FITNESS PROFESSOR 10 mg cholecalciferol (VITAMIN D-3) capsule 2,000 Units 2,000 Units, oral, Daily, First dose on Sat09/11/20 at 0900 Given 09/16/2020 10:37 AM HEALTH AND FITNESS PROFESSOR 2,000 Units Given 09/15/2020 9:35 AM HEALTH AND FITNESS PROFESSOR 2,000 Units Given 09/14/2020 9:19 AM HEALTH AND FITNESS PROFESSOR 2,000 Units clonazePAM (KlonoPIN) tablet 1 mg 1 mg, oral, Nightly, First dose on Sat09/13/20 at 0015 Given 09/13/2020 8:44 PM HEALTH AND FITNESS PROFESSOR 1 mg Given 09/13/2020 1:06 AM HEALTH AND FITNESS PROFESSOR 1 mg dextrose 5% and Lactated Ringer's infusion 75 mL/hr, intravenous, Continuous, Starting on 09/10/20 at 2045, For 12 hours New Bag 09/10/2020 9:28 PM HEALTH AND FITNESS PROFESSOR 75 mL/hr 75 mL/hr dextrose 5% and Lactated Ringer's infusion 50 mL/hr, intravenous, Continuous, Starting on 09/11/20 at 0330 New Bag 09/12/2020 12:20 PM HEALTH AND FITNESS PROFESSOR 50 mL/hr 50 mL/hr Rate/Dose Change 09/11/2020 3:40 PM HEALTH AND FITNESS PROFESSOR 50 mL/hr 50 mL/h r New Bag 09/11/2020 11:54 AM HEALTH AND FITNESS PROFESSOR 75 mL/hr 75 mL/hr enoxaparin (LOVENOX) syringe 30 mg 30 mg, subcutaneous, Every 12 hours scheduled, First dose on Sat09/12/20 at 0900, Indications: Deep Vein Thrombosis PreventionIndications:Deep Vein Thrombosis Prevention Given 09/16/2020 10:47 AM HEALTH AND FITNESS PROFESSOR 30 mg Left Lower Abdomen Given 09/15/2020 8:28 PM HEALTH AND FITNESS PROFESSOR 30 mg Le ft Lower Abdomen Given 09/15/2020 9:35 AM HEALTH AND FITNESS PROFESSOR 30 mg Ri ght Lower Abdomen ferrous sulfate tablet 325 mg 325 mg (65 mg of elemental iron), oral, 2 times daily with meals (bkfst, dinner), First dose on Sat09/11/20 at 0800, For 353 days, Indications: Iron Deficiency AnemiaIndications:Iron Deficiency Anemia Given 09/16/2020 10:39 AM HEALTH AND FITNESS PROFESSOR 32 5 mg Given 09/15/2020 6:14 PM HEALTH AND FITNESS PROFESSOR 325 mg Given 09/15/2020 9:36 AM HEALTH AND FITNESS PROFESSOR 325 mg fluticasone furoate-vilanteroL (BREO ELLIPTA) 100-25 mcg/dose inhaler 1 puff 1 puff, inhalation, Daily (correspondence representative), First dose (after last modification) on Sat09/11/20 at 0900, Rinse mouth with water after use. Do not swallow. Given 09/15/2020 9:26 AM HEALTH AND FITNESS PROFESSOR 1 puff Given 09/14/2020 9:32 AM HEALTH AND FITNESS PROFESSOR 1 puff Given 09/13/2020 10:40 AM HEALTH AND FITNESS PROFESSOR 1 puff fluticasone furoate-vilanteroL (BREO ELLIPTA) 100-25 mcg/dose inhaler 1 puff 1 puff, inhalation, Daily, First dose (after last modification) on 09/16/20 at 0900, Rinse mouth with water after use. Do not swallow. hydroCHLOROthiazide (HYDRODIURIL) tablet 12.5 mg 12.5 mg, oral, Daily, First dose on Sat09/11/20 at 0900 Given 09/16/2020 10:38 AM HEALTH AND FITNESS PROFESSOR 12.5 mg Given 09/15/2020 9:35 AM HEALTH AND FITNESS PROFESSOR 12.5 mg Given 09/14/2020 9:19 AM HEALTH AND FITNESS PROFESSOR 12.5 mg ioversoL (OPTIRAY 350) syringe syringe 100 mL 100 mL, intravenous, Once in imaging, contrast, Starting on 09/10/20 at 2321, For 1 dose Given 09/10/2020 11:21 PM HEALTH AND FITNESS PROFESSOR 100 mL metoprolol XL (TOPROL-XL) extended release tablet 100 mg 100 mg, oral, Daily, First dose on Sat09/11/20 at 0900, Tablets that are scored may be split, but do not crush, chew, dissolve, open or otherwise manipulate tablet/capsule. Given 09/16/2020 10:39 AM HEALTH AND FITNESS PROFESSOR 100 mg Given 09/15/2020 9:35 AM HEALTH AND FITNESS PROFESSOR 100 mg Given 09/14/2020 9:19 AM HEALTH AND FITNESS PROFESSOR 100 mg montelukast (SINGULAIR) tablet 10 mg 10 mg, oral, Nightly, First dose on Sat09/11/20 at 2100 Given 09/15/2020 8:28 PM HEALTH AND FITNESS PROFESSOR 10 mg Given 09/14/2020 9:14 PM HEALTH AND FITNESS PROFESSOR 10 mg Given 09/13/2020 8:44 PM HEALTH AND FITNESS PROFESSOR 10 mg morphine (MSIR) tablet 15 mg 15 mg, oral, Once, On 09/10/20 at 2337, For 1 dose Given 09/11/2020 12:25 AM HEALTH AND FITNESS PROFESSOR 15 mg oxyCODONE (ROXICODONE) tablet 5 mg 5 mg, oral, Every 4 hours PRN, 1st line for pain, Starting on Sat09/11/20 at 0258, Indications: PainIndications:Pain Given 09/16/2020 10:47 AM HEALTH AND FITNESS PROFESSOR 5 mg Given 09/16/2020 3:48 AM HEALTH AND FITNESS PROFESSOR 5 mg Given 09/15/2020 10:40 PM HEALTH AND FITNESS PROFESSOR [address] (PROTONIX) extended release tablet 40 mg 40 mg, oral, Daily, First dose on Sat09/11/20 at 0900, Do not crush, chew, cut, dissolve, open or otherwise manipulate tablet/capsule., Indications: Stress Ulcer ProphylaxisIndications:Stress Ulcer Prophylaxis Given 09/16/2020 10:38 AM HEALTH AND FITNESS PROFESSOR 40 mg Given 09/15/2020 9:36 AM HEALTH AND FITNESS PROFESSOR 40 mg Given 09/14/2020 9:19 AM HEALTH AND FITNESS PROFESSOR 40 mg phenylephrine (MARTINA-SYNEPHRINE) 0.25 % nasal spray 2 spray 2 spray, each nostril, 4 times daily, First dose on Sat09/15/20 at 1700, For 3 days Given 09/16/2020 10:41 AM HEALTH AND FITNESS PROFESSOR 2 sprays Given 09/15/2020 8:28 PM HEALTH AND FITNESS PROFESSOR 2 sprays Given 09/15/2020 6:14 PM HEALTH AND FITNESS PROFESSOR 2 sprays potassium chloride 40 mEq/520 mL in sodium chloride 0.9% (premix) 40 mEq 40 mEq, intravenous, at 130 mL/hr, Administer over 4 Hours, Once, On Sat09/12/20 at 0415, For 1 dose, Indications: hypokalemiaIndications:hypokalemia New Bag 09/12/2020 5:36 AM HEALTH AND FITNESS PROFESSOR 40 mEq 130 mL/hr ramelteon (ROZEREM) tablet 8 mg 8 mg, oral, Nightly, First dose on Sat09/14/20 at 2100, Indications: Sleep-Onset InsomniaIndications:Sleep-Onset Insomnia Given 09/15/2020 8:28 PM HEALTH AND FITNESS PROFESSOR 8 mg Given 09/14/2020 9:14 PM HEALTH AND FITNESS PROFESSOR 8 mg sodium chloride 0.9% flush 0.5-20 mL 0.5-20 mL, intra-catheter, Every 8 hours scheduled, First dose on Sat09/11/20 at 0600, Flush volume based on line type and size. Given 09/14/2020 9:15 PM HEALTH AND FITNESS PROFESSOR 10 mL Given 09/14/2020 4:06 AM HEALTH AND FITNESS PROFESSOR 10 mL Given 09/13/2020 8:45 PM HEALTH AND FITNESS PROFESSOR 10 mL traZODone (DESYREL) tablet 50 mg 50 mg, oral, Nightly, First dose on Rossy 09/15/20 at 2315 Given 09/15/2020 10:40 PM HEALTH AND FITNESS PROFESSOR 50 mg umeclidinium (INCRUSE ELLIPTA) 62.5 mcg/actuation inhaler 62.5 mcg 62.5 mcg (1 puff), inhalation, Daily (correspondence representative), First dose (after last modification) on 09/11/20 at 0900 Given 09/15/2020 9:26 AM HEALTH AND FITNESS PROFESSOR 62.5 mcg Given 09/14/2020 9:32 AM HEALTH AND FITNESS PROFESSOR 62.5 mcg Given 09/13/2020 10:40 AM HEALTH AND FITNESS PROFESSOR 62.5 mcg umeclidinium (INCRUSE ELLIPTA) 62.5 mcg/actuation inhaler 62.5 mcg 62.5 mcg (1 puff), inhalation, Daily, First dose (after last modification) on Sat09/16/20 at 0900 documented in this encounter Discontinued Medications Medication Sig Discontinue Reason Start Date End Da te oxyCODONE (ROXICODONE) 5 mg immediate release tabletIndications:Pain Take 1 tablet (5 mg total) by mouth every 4 (four) hours as needed for pain 09/16/2020 09/16/2020 ondansetron ODT (ZOFRAN-ODT) 4 mg disintegrating tablet Take 1 tablet (4 mg total) by mouth 4 (four) times a day as needed for nausea or vomiting Stop Taking at Discharge 08/30/2020 09/16/2020 documented as of this encounter Active and Recently Administered Medications Times are shown in HEALTH AND FITNESS PROFESSOR. Scheduled Medication Order 09/14/2020 09/15/2020 09/16/2020 acetaminophen (TYLENOL) tablet 1,000 mg 1,000 mg, oral, Every 8 hours, First dose on 09/11/20 at 0330 0406 (Given - Provider: Marnie Ross RN)1213 (Given - Provider: Caren De La Cruz RN)2114 (Given - Provider: Marnie Ross RN) 0305 (Not Given - Provider: Marnie Ross RN - Reason: Patient/family refused)1202 (Given - Provider: Caren De La Cruz RN)202 (Given - Provider: Yoana Manrique RN) 0209 (Given - Provider: Yoana Manrique RN)1309 (Given - Provider: Caren De La Cruz RN - Comment: workload and sitter schedule) amitriptyline (ELAVIL) tablet 25 mg 25 mg, oral, Daily, First dose on Sat09/13/20 at 0900 0920 (Given - Provider: Caren De La Cruz RN) 0936 (Given - Provider: Caren De La Cruz RN) 1038 (Given - Provider: Caren De La Cruz RN) busPIRone (BUSPAR) tablet 10 mg 10 mg, oral, 2 times daily, First dose on Sat09/12/20 at 0900, Indications: Generalized Anxiety Disorder 0919 (Given - Provider: Caren De La Cruz RN)2113 (Given - Provider: Marnie Ross RN) 0935 (Given - Provider: Caren De La Cruz RN)2027 (Given - Provider: Yoana Manrique, JUAN) 1039 (Given - Provider: Caren De La Cruz RN - Comment: WORKLOAD AND SITTER SCHEDULE) cholecalciferol (VITAMIN D-3) capsule 2,000 Units 2,000 Units, oral, Daily, First dose on Sat09/11/20 at 0900 0919 (Given - Provider: Caren De La Cruz RN) 0935 (Given - Provider: Caren De La Cruz RN) 1037 (Given - Provider: Caren De La Cruz RN) enoxaparin (LOVENOX) syringe 30 mg 30 mg, subcutaneous, Every 12 hours scheduled, First dose on Sat09/12/20 at 0900, Indications: Deep Vein Thrombosis Prevention 0919 (Given - Provider: Caren De La Cruz RN)2113 (Given - Provider: Marnie Ross RN) 0935 (Given - Provider: Caren De La Cruz RN)2027 (Given - Provider: Yoana Manrique, JUAN) 1047 (Given - Provider: Caren De La Cruz RN - Comment: WORKLOAD AND SITTER SCHEDULE) ferrous sulfate tablet 325 mg 325 mg (65 mg of elemental iron), oral, 2 times daily with meals (bkfst, dinner), First dose on Sat09/11/20 at 0800, For 353 days, Indications: Iron Deficiency Anemia 0919 (Given - Provider: Caren De La Cruz RN)1709 (Given - Provider: Caren De La Cruz RN) 0936 (Given - Provider: Caren De La Cruz RN)1814 (Given - Provider: Caren De La Cruz RN) 1039 (Given - Provider: Caren De La Cruz RN - Comment: WORKLOAD AND SITTER SCHEDULE) fluticasone furoate-vilanteroL (BREO ELLIPTA) 100-25 mcg/dose inhaler 1 puff (CANCELED) 1 puff, inhalation, Daily (correspondence representative), First dose (after last modification) on 09/11/20 at 0900, Rinse mouth with water after use. Do not swallow. 0932 (Given - Provider: Dean Georges, SHANNON) 0926 (Given - Provider: Salvador De Souza, SHANNON) fluticasone furoate-vilanteroL (BREO ELLIPTA) 100-25 mcg/dose inhaler 1 puff 1 puff, inhalation, Daily, First dose (after last modification) on Sat09/16/20 at 0900, Rinse mouth with water after use. Do not swallow. 0900 (Due) hydroCHLOROthiazide (HYDRODIURIL) tablet 12.5 mg 12.5 mg, oral, Daily, First dose on 09/11/20 at 0900 0919 (Given - Provider: Caren De La Cruz RN) 0935 (Given - Provider: Caren De La Cruz RN) 1038 (Given - Provider: Caren De La Cruz RN) metoprolol XL (TOPROL-XL) extended release tablet 100 mg 100 mg, oral, Daily, First dose on 09/11/20 at 0900, Tablets that are scored may be split, but do not crush, chew, dissolve, open or otherwise manipulate tablet/capsule. 0919 (Given - Provider: Caren De La Cruz RN) 0935 (Given - Provider: Caren De La Cruz RN) 1039 (Given - Provider: Caren De La Cruz RN) montelukast (SINGULAIR) tablet 10 mg 10 mg, oral, Nightly, First dose on 09/11/20 at 2100 2114 (Given - Provider: Marnie Ross RN) 2027 (Given - Provider: Yoana Manrique RN) pantoprazole DR (PROTONIX) extended release tablet 40 mg 40 mg, oral, Daily, First dose on 09/11/20 at 0900, Do not crush, chew, cut, dissolve, open or otherwise manipulate tablet/capsule., Indications: Stress Ulcer Prophylaxis 09 (Given - Provider: Caren De La Cruz RN) 0936 (Given - Provider: Caren De La Cruz RN) 1038 (Given - Provider: Caren De La Cruz RN) phenylephrine (MARTINA-SYNEPHRINE) 0.25 % nasal spray 2 spray 2 spray, each nostril, 4 times daily, First dose on Sat09/15/20 at 1700, For 3 days 1814 (Given - Provider: Caren De La Cruz RN - Comment: NEW MED ORDER)2027 (Given - Provider: Yoana Manrique RN) 104 (Given - Provider: Caren De La Cruz RN - Comment: WORKLOAD AND SITTER SCHEDULE)1209 (Not Given - Provider: Caren De La Cruz RN - Reason: Other - Comment: previously administered approx 10:45 AM) ramelteon (ROZEREM) tablet 8 mg 8 mg, oral, Nightly, First dose on Sat09/14/20 at 2100, Indications: Sleep-Onset Insomnia 2113 (Given - Provider: Marnie Ross RN) 2027 (Given - Provider: Yoana Manrique RN) sodium chloride 0.9% flush 0.5-20 mL 0.5-20 mL, intra-catheter, Every 8 hours scheduled, First dose on Sat09/11/20 at 0600, Flush volume based on line type and size. 0406 (Given - Provider: Marnie Ross RN)1400 (Due)2114 (Given - Provider: Marnie Ross RN) 0508 (Not Given - Provider: Marnie Ross RN - Reason: Other)1400 (Due)2033 (Not Given - Provider: Yoana Manrique RN - Reason: Other) 050 (Not Given - Provider: Yoana Manrique RN - Reason: Other)1400 (Due) traZODone (DESYREL) tablet 50 mg 50 mg, oral, Nightly, First dose on Sat09/15/20 at 2315 2240 (Given - Provider: Yoana Manrique RN) umeclidinium (INCRUSE ELLIPTA) 62.5 mcg/actuation inhaler 62.5 mcg (CANCELED) 62.5 mcg (1 puff), inhalation, Daily (correspondence representative), First dose (after last modification) on Sat09/11/20 at 0900 0932 (Given - Provider: Dean Georges, SHANNON) 0926 (Given - Provider: Salvador De Souza RRT) umeclidinium (INCRUSE ELLIPTA) 62.5 mcg/actuation inhaler 62.5 mcg 62.5 mcg (1 puff), inhalation, Daily, First dose (after last modification) on Sat09/16/20 at 0900 0900 (Due) PRN Medication Order 09/14/2020 09/15/2020 09/16/2020 albuterol HFA (PROVENTIL HFA,VENTOLIN HFA,PROAIR HFA) 90 mcg/actuation inhaler 2 puff 2 puff, inhalation, Every 4 hours PRN (correspondence representative), wheezing, Starting on Sat09/11/20 at 0304 oxyCODONE (ROXICODONE) tablet 5 mg 5 mg, oral, Every 4 hours PRN, 1st line for pain, Starting on Sat09/11/20 at 0258, Indications: Pain 0406 (Given - Provider: Marnie Ross RN)1216 (Given - Provider: Caren De La Cruz RN)1709 (Given - Provider: Caren De La Cruz, JUAN)2114 (Given - Provider: Marnie Ross RN) 0150 (Given - Provider: Marnie Ross RN)0935 (Given - Provider: Caren De La Cruz RN)1817 (Given - Provider: Caren De La Cruz, RN)2240 (Given - Provider: Yoana Manrique RN) 0348 (Given - Provider: Yoana Manrique RN)1047 (Given - Provider: Caren De La Cruz RN) sodium chloride 0.9% flush 0.5-20 mL 0.5-20 mL, intra-catheter, As needed, line care, Starting on Sat09/11/20 at 0258, Flush volume based on line type and size. Flush before and after each use. documented in this encounter Orders Medications Ordered That Juan ht Not Have Been Administered Count Last Ordered Date First Ordered Date fluticasone furoate-vilanter oL (BREO ELLIPTA) 100-25 mcg/dose inhaler 1 puff 2 09/15/2020 09/11/2020 umeclidinium (INCRUSE ELLIPT A) 62.5 mcg/actuation inhaler 62.5 mcg 2 09/15/2020 albuterol HFA (PROVENTIL HFA ,VENTOLIN HFA,PROAIR HFA) 90 mcg/actuation inhaler 2 puff 2 09/11/2020 dextrose 5% and Lactated Ringer's infusion 1 09/11/2020 ondansetron ODT (ZOFRAN-ODT) disintegrating tablet 4 mg 1 09/11/2020 sodium chloride 0.9% flush 0.5-20 mL 1 02/2021 morphine injection 4 mg 1 09/10/2020 Diet Count Last Ordered Date First Orde red Date ADULT DISCHARGE DIET 1 09/16/2020 Nursing Count Last Ordered Date First Orde red Date DISCHARGE ACTIVITY 2 09/16/2020 DISCHARGE CALL PROVIDER 5 09/16/2020 DISCHARGE DRESSING 2 09/16/2020 DISCHARGE INSTRUCTIONS 2 09/16/2020 ROSE CATHETER - DISCONTINUE 1 09/13/2020 WEIGH PATIENT 1 09/11/2020 Consult Count Last Ordered Date First Orde red Date IP CONSULT TO NEUROSURGERY 1 09/10/2020 CORE MEASURES Count Last Ordered Date First Ord ered Date REASON FOR NO VTE PROPHYLAXI S - HOSPITAL ADMISSION - MEDICATIONS 1 09/11/2020 ADT Patient Update Count Last Ordered Date Firs t Ordered Date ED IP DECISION TO ADMIT 1 09/10/2020 documented in this encounter Care Teams Customer Data Technician Relationship Specialty Start Date End Date Jason Wiggins MD [address] [place] [id number] PCP - General 08/27/20 12/20/20 documented as of this encounter
--- OUTSIDE RECORDS SUMMARY | 2024-08-05 02:32 | XMS_ITS | Encounter Summary ---
Author Organization [facility] Healthcare Address [address] [place] [address] Care Team Providers Care Display Card Writer Name Role Phone Jason Wiggins MD Primary Care Provider [phone] Sonia Pope RN Unavailable Reason for Visit * Reason Comments Unsuccessful Phone Call 2 LV for patijana t requesting call back. Will try again next week. 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
--- OUTSIDE RECORDS SUMMARY | 2024-08-05 02:32 | XMS_ITS | Encounter Summary ---
Author Organization [facility] Healthcare Address [address] [place] [address] Care Team Providers Care Manager Of Maintenance Name Role Phone Jason Wiggins MD Primary Care Provider [phone] Encounter Details Date Type Department Care Team (Latest Contact Info) Description 09/11/2020 6:19 AM BATTERY PLATE REMOVER - 09/11/2020 11:59 PM BATTERY PLATE REMOVER Hospital Encounter [facility] [address] [place] [id number] Discharge Disposition: Discharge to home or self care Social History Tobacco Use Types Packs/Day Years Used Date Smoking Tobacco: Former Cigarettes Q uit: 08/23/2004 Comments No Sex and Gender Information Value Date Recorded Sex Assigned at Not on file Legal Sex Female 11:40 AM BATTERY PLATE REMOVER Gender Identity Not on file Sexual Orientation [...] MR OUTSIDE CONSULT Routine 09/11/2020 6:19 AM BATTERY PLATE REMOVER Diagnosis unknown documented in this encounter Results * Neuro CT MR Outside Consult (09/11/2020 6:19 AM BATTERY PLATE REMOVER) Anatomical Region Laterality Modality N/A Computed Tomogra phy 09/11/2020 5:43 PM BATTERY PLATE REMOVER Impressions 09/11/2020 5:43 PM BATTERY PLATE REMOVER Limited exam due to streak artifact. ??Within [...] images may or may not represent the lower brule source data set and thus may contain changes that may lower the accuracy of this second-opinion interpretation. Electronically signed by: Karoline Wild M.D. Narrative 09/11/2020 5:43 PM BATTERY PLATE REMOVER EXAMINATION: RADIOLOGY CONSULTATION ON OUTSIDE IMAGING STUDY STUDY INITIALLY PERFORMED: 09/10/2020 at [facility]. TYPE OF STUDY: Multiple CT images of [...] IMAGING STUDY STUDY INITIALLY PERFORMED: 09/10/2020 at [facility]. TYPE OF STUDY: Multiple CT images of [...] images may or may not represent the lower brule source data set and thus may contain changes that may lower the accuracy of this second-opinion interpretation. Electronically signed by: Karoline Wild M.D. Jenny Varela MD IMG CT PROCEDURES Final Resul t documented in this encounter Visit Diagnoses Not on filedocumented in this encounter Care Teams Manager Of Maintenance Relationship Specialty Start Date End Date Jason Wiggins MD [address] [place] [address] PCP - General 08/27/20 12/20/20 documented as of this encounter
--- OUTSIDE RECORDS SUMMARY | 2024-08-05 02:33 | XMS_ITS | Encounter Summary ---
Author Organization [facility] Healthcare Address [address] [place] [address] Care Team Providers Care Records Assistant Name Role Phone Eusebio Nagy MD Primary Care Provider [phone] Encounter Details Date Type Department Care Team (Latest Contact Info) Description 08/25/2020 7:25 AM ADMINISTRATOR OF HOME HEALTH - 08/25/2020 11:59 PM ADMINISTRATOR OF HOME HEALTH Hospital Encounter [facility] [address] [place] [address] Micheal Deleon MD [address] [facility] [address] [place], [place] [id number] Discharge Disposition: Discharge to home or self care Social History Tobacco Use Types Packs/Day Years Used Date Smoking Tobacco: Former Cigarettes Q uit: 08/23/2004 Comments Unknown Sex and Gender Information Value Date Recorded Sex Assigned at Not on file Legal Sex Female 11:40 AM ADMINISTRATOR OF HOME HEALTH Gender Identity Not on file Sexual Orientation [...] 325 mg (65 mg of elemental iron) tabletIndications:Ir on Deficiency Anemia Take 1 tablet (325 mg total) by mouth 2 (two) times a day with meals 60 tablet 08/30/2020 2 acetaminophen (TYLENOL) 325 mg tablet Take 2 tablets (650 mg total) by mouth every 4 (four) hours as needed for pain 30 tablet 08/29/2020 2 albuterol HFA (PROVENTIL HFA,VENTOLIN HFA,PROAIR HFA) 90 mcg/actuation inhaler Inhale 2 puffs every 4 (four) hours as needed for wheezing 1 Inhaler 08/29/2020 1 busPIRone (BUSPAR) 10 mg tabletIndications:Ge neralized Anxiety Disorder Take 1 tablet (10 mg total) by mouth 2 (two) times a day 60 tablet 11 08/29/2020 1 busPIRone (BUSPAR) 10 mg tabletIndications:Ge neralized Anxiety Disorder Take 1 tablet (10 mg total) by mouth 2 (two) times a day 60 tablet 08/30/2020 2 cholecalciferol (VITAMIN D-3) 2000 unit capsule Take 1 capsule (2,000 Units total) by mouth daily 30 capsule 11 08/30/2020 1 cholecalciferol (VITAMIN D-3) 2000 unit capsule Take 1 capsule (2,000 Units total) by mouth daily 30 capsule 08/30/[address] (VOLTAREN) 75 mg EC tablet Take by mouth 01/29/2020 2 ferrous sulfate 325 mg (65 mg of elemental iron) tabletIndications:Ir on Deficiency Anemia Take 1 tablet (325 mg total) by mouth 2 (two) times a day with meals 60 tablet 11 08/29/2020 1 fluticasone furoate-vilanteroL (BREO ELLIPTA) 100-25 mcg/dose diskus inhaler Inhale 1 puff daily Rinse mouth with water after use. Do not swallow. 60 each 08/29/2020 1 fluticasone furoate-vilanteroL (BREO ELLIPTA) 100-25 mcg/dose diskus inhaler Inhale 1 puff daily Rinse mouth with water after use. Do not swallow. 60 each 08/30/2020 2 hydroCHLOROthiazide (HYDRODIURIL) 12.5 mg tablet Take 1 tablet (12.5 mg total) by mouth daily 30 tablet 11 08/30/2020 1 ipratropium (ATROVENT HFA) 17 mcg/actuation inhaler Inhale 2 puffs every 4 (four) hours as needed for wheezing 12.9 g 08/29/2020 1 ipratropium (ATROVENT HFA) 17 mcg/actuation inhaler Inhale 2 puffs every 4 (four) hours as needed for wheezing 12.9 g 08/30/2020 2 metoprolol XL (TOPROL-XL) 100 mg 24 hr tablet Take 1 tablet (100 mg total) by mouth daily 30 tablet 11 08/30/2020 1 metoprolol XL (TOPROL-XL) 100 mg 24 hr tablet Take 1 tablet (100 mg total) by mouth daily 30 tablet 08/30/2020 2 montelukast (SINGULAIR) 10 mg tablet Take 1 tablet (10 mg total) by mouth nightly 30 tablet 11 08/29/2020 1 montelukast (SINGULAIR) 10 mg tablet Take 1 tablet (10 mg total) by mouth nightly 30 tablet 08/30/2020 2 ondansetron ODT (ZOFRAN-ODT) 4 mg disintegrating tablet Take 1 tablet (4 mg total) by mouth 4 (four) times a day as needed for nausea or vomiting 20 tablet 08/29/2020 1 ondansetron ODT (ZOFRAN-ODT) 4 mg disintegrating tablet Take 1 tablet (4 mg total) by mouth 4 (four) times a day as needed for nausea or vomiting 20 tablet 08/30/2020 1 oxyCODONE (ROXICODONE) 5 mg immediate release tabletIndications:Pa in Take 1 tablet (5 mg total) by mouth every 4 (four) hours as needed (2nd line for pain) 10 tablet 08/29/[address] (PROTONIX) 40 mg EC tabletIndications:St ress Ulcer Prophylaxis Take 1 tablet (40 mg total) by mouth daily 30 tablet 11 08/30/[address] (PROTONIX) 40 mg EC tabletIndications:St ress Ulcer Prophylaxis Take 1 tablet (40 mg total) by mouth daily 30 tablet 08/30/2020 2 polyethylene glycol (MIRALAX) 17 gram packetIndications:co nstipation Take 1 packet (17 g total) by mouth 2 (two) times a day 08/29/2020 1 umeclidinium (INCRUSE ELLIPTA) 62.5 mcg/actuation blister with device Inhale 1 puff (62.5 mcg total) daily 08/29/2020 1 umeclidinium (INCRUSE ELLIPTA) 62.5 mcg/actuation blister with device Inhale 1 puff (62.5 mcg total) daily 30 each 08/30/2020 2 documented as of this encounter Discharge Disposition Disposition Code Departure Means Destination Discharge to home or self care documented in this encounter Plan of Treatment Not on file documented as of this encounter Procedures Procedure Name Priority Date/Time Associated Diagnosis Comments TRANSTHORACIC ECHO (TTE) COMPLETE W DOPPLER/CF W CONTRAST Routine 08/25/2020 11:45 AM ADMINISTRATOR OF HOME HEALTH documented in this encounter Visit Diagnoses Not on filedocumented in this encounter Administered Medications Inactive Administered Medications - up to 3 most recent administrations Medication Order MAR Action Action Date Dose Rate Site perflutren protein-a (OPTISON) 3 mL in sodium chloride 0.9% 8 mL syringe 1-8 mL, intravenous, Once in imaging, contrast, Starting on Rossy 08/25/20 at 0731, For 1 dose, Intra-Procedure (CV) Given 08/25/2020 11:45 AM ADMINISTRATOR OF HOME HEALTH 2 mL documented in this encounter Orders Medications Ordered That Juan ht Not Have Been Administered Count Last Ordered Date First Ordered Date perflutren protein-a (OPTISO N) 3 mL in sodium chloride 0.9% 8 mL syringe 1 08/25/2020 documented in this encounter Care Teams Records Assistant Relationship Specialty Start Date End Date Eusebio Nagy MD PCP - General Internal Medicine 08/25/20 08/26/20 documented as of this encounter
--- OUTSIDE RECORDS SUMMARY | 2024-08-05 02:33 | XMS_ITS | Encounter Summary ---
Author Organization [facility] Facility Care Team Providers Care Residential Instructor Name Role Phone Unavailable Primary Care Provider Unavailabl e Encounter Details Date Type Department Care Team (Latest Contact Info) Description 05/10/2015 4:25 AM CDT - 05/18/2015 8:48 PM CDT Hospital Encounter [facility] Thea Simpson MD [address] [facility] [address] [place] [id number] Acute respiratory failure with hypoxia (CMS/HCC); Non-ST elevation (NSTEMI) myocardial infarction (CMS/HCC); Pneumonia; Other encephalopathy; Pleural effusion, not elsewhere classified; Acute kidney failure (CMS/HCC); Chronic obstructive pulmonary disease with acute exacerbation (CMS/HCC); Pneumothorax; Acute embolism and thrombosis of other specified deep vein of right lower extremity (HCC); Other specified diseases of upper respiratory tract; Obesity; Body mass index (BMI) of 31.0-31.9 in adult; Essential (primary) hypertension; Dependence on supplemental oxygen; Solitary pulmonary nodule; Diaphragmatic hernia without obstruction or gangrene; Nontoxic single thyroid nodule; Presence of artificial knee joint; Personal history of nicotine dependence Social History Tobacco Use Types Packs/Day Years Used Date Smoking Tobacco: Never Assessed Comments Unknown Sex and Gender Information Value Date Recorded Sex Assigned at Not on file 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 Gender Identity Not on file Sexual Orientation Not on file documented as of this encounter Last Filed Vital Signs Vital Sign Reading Time Taken Comments Blood Pressure 121/64 05/18/2015 4:19 PM CDT Pulse 99 05/18/2015 4:19 PM CDT Temperature - - Respiratory Rate - - Oxygen Saturation 96% 05/18/2015 4:19 PM CDT Inhaled Oxygen Concentration - - Weight 83.6 kg (184 lb 4.5 oz) 05/10/2015 5:10 A M CDT Height 162.6 cm (5' 4 ) 05/10/2015 5:10 AM CDT Body Mass Index 31.63 05/10/2015 5:10 AM CDT documented in this encounter Plan of Treatment Not on file documented as of this encounter Procedures Procedure Name Priority Date/Time Associated Diagnosis Comments DISCHARGE LABORATORY CUMULATIVE REPORT 05/18/2015 PLASMA BASIC METABOLIC PANEL Routine 05/17/2015 9:09 PM CDT BLOOD CELL COUNT Routine 05/17/2015 9:09 PM CDT BLOOD CULTURE, CDR Routine 05/17/2015 1: 45 AM CDT PLASMA BASIC METABOLIC PANEL Routine 05/17/2015 12:04 AM CDT BLOOD CELL COUNT Routine 05/17/2015 12:0 4 AM CDT ALL MICROBIOLOGY REPORT SECTION Routine 05/17/2015 12:00 AM CDT BLOOD CULTURE, CDR Routine 05/16/2015 6: 50 PM CDT BLOOD GAS, ARTERIAL Routine 05/16/2015 1 0:10 AM CDT VASCULAR LABORATORY REPORT 05/16/2015 ALL MICROBIOLOGY REPORT SECTION Routine 05/16/2015 12:00 AM CDT SERUM MAGNESIUM Routine 05/15/2015 10:54 PM CDT PLASMA PHOSPHORUS Routine 05/15/2015 10: 54 PM CDT PLASMA BASIC METABOLIC PANEL Routine 05/15/2015 10:54 PM CDT BLOOD CELL COUNT Routine 05/15/2015 10:5 4 PM CDT SERUM THYROXINE (T4), FREE Routine 05/14 9:15 PM CDT PLASMA BASIC METABOLIC PANEL Routine 05/14/2015 9:15 PM CDT BLOOD CELL COUNT (CBC) Routine 5 9:15 PM CDT FUNGAL CULTURE, CDR Routine 05/14/2015 2 :43 AM CDT ALL MICROBIOLOGY REPORT SECTION Routine 05/14/2015 12:00 AM CDT CRYPTOCOCCUS ANTIGEN, CDR Routine 2014 10:57 PM CDT SERUM THYROID-STIMULATING HORMONE (TSH) Routine 05/13/2015 10:57 PM CDT SERUM HUMAN IMMUNODEFICIENCY VIRUS (HIV) 1/2 AB + P24 AG Routine 05/13/2015 10:57 PM CDT SERUM COCCIDIOIDES AB Routine 05/13/2015 10:57 PM CDT PLASMA BASIC METABOLIC PANEL Routine 05/13/2015 10:57 PM CDT BLOOD CELL COUNT Routine 05/13/2015 10:5 7 PM CDT BLOOD CULTURE, CDR Routine 05/13/2015 8: 59 PM CDT HISTOPLASMA ANTIGEN, CDR Routine 015 8:58 PM CDT BLOOD GLUCOSE, POC Routine 05/13/2015 8: [address] HEAD WO CONTRAST Routine 05/13/2015 6 :09 PM CDT XR CONSULT OF OUTSIDE FILMS (PEDS ONLY) Routine 05/13/2015 4:58 PM CDT XR CONSULT OF OUTSIDE FILMS (PEDS ONLY) Routine 05/13/2015 4:57 PM CDT XR CONSULT OF OUTSIDE FILMS (PEDS ONLY) Routine 05/13/2015 4:57 PM CDT BLOOD GAS, ARTERIAL Routine 05/13/2015 3 :45 PM CDT BLOOD CULTURE, CDR Routine 05/13/2015 12 :54 PM CDT BLOOD GLUCOSE, POC Routine 05/13/2015 12 :13 PM CDT XR CHEST 1 VIEW Routine 05/13/2015 9:40 AM CDT URINE (AEROBIC) CULTURE, CDR Routine 05/13/2015 9:39 AM CDT URINE MICROSCOPY Routine 05/13/2015 9:39 AM CDT URINALYSIS Routine 05/13/2015 9:[address] CHEST W CONTRAST Routine 05/13/2015 9 :37 AM CDT BLOOD GLUCOSE, POC Routine 05/13/2015 7: 39 AM CDT BLOOD GAS, ARTERIAL Routine 05/13/2015 5 :05 AM CDT ALL MICROBIOLOGY REPORT SECTION Routine 05/13/2015 12:00 AM CDT ALL MICROBIOLOGY REPORT SECTION Routine 05/13/2015 12:00 AM CDT ALL MICROBIOLOGY REPORT SECTION Routine 05/13/2015 12:00 AM CDT ALL MICROBIOLOGY REPORT SECTION Routine 05/13/2015 12:00 AM CDT ALL MICROBIOLOGY REPORT SECTION Routine 05/13/2015 12:00 AM CDT SERUM MAGNESIUM Routine 05/12/2015 9:46 PM CDT PLASMA PHOSPHORUS Routine 05/12/2015 9:4 6 PM CDT PLASMA BASIC METABOLIC PANEL Routine 05/12/2015 9:46 PM CDT BLOOD CELL COUNT Routine 05/12/2015 9:46 PM CDT BLOOD GLUCOSE, POC Routine 05/12/2015 8: 06 PM CDT BLOOD GLUCOSE, POC Routine 05/12/2015 5: 01 PM CDT XR CHEST 1 VIEW Routine 05/12/2015 2:08 PM CDT BLOOD GLUCOSE, POC Routine 05/12/2015 12 :35 PM CDT BLOOD GLUCOSE, POC Routine 05/12/2015 8: 03 AM CDT BLOOD GAS, ARTERIAL Routine 05/12/2015 6 :06 AM CDT BLOOD GLUCOSE, POC Routine 05/12/2015 3: 57 AM CDT BLOOD GAS, ARTERIAL Routine 05/12/2015 1 2:25 AM CDT BLOOD GLUCOSE, POC Routine 05/12/2015 12 :23 AM CDT SERUM MAGNESIUM Routine 05/12/2015 12:04 AM CDT PLASMA PHOSPHORUS Routine 05/12/2015 12: 04 AM CDT PLASMA BASIC METABOLIC PANEL Routine 05/12/2015 12:04 AM CDT BLOOD CELL COUNT (CBC) Routine 5 12:04 AM CDT BLOOD GLUCOSE, POC Routine 05/11/2015 7: 53 PM CDT BLOOD GLUCOSE, POC Routine 05/11/2015 4: 24 PM CDT XR CHEST 1 VIEW Routine 05/11/2015 12:42 PM CDT BLOOD GLUCOSE, POC Routine 05/11/2015 12 :09 PM CDT BLOOD GLUCOSE, POC Routine 05/11/2015 8: 11 AM CDT BLOOD GLUCOSE, POC Routine 05/11/2015 3: 47 AM CDT BLOOD GLUCOSE, POC Routine 05/11/2015 12 :03 AM CDT SERUM MAGNESIUM Routine 05/10/2015 11:44 PM CDT PLASMA BASIC METABOLIC PANEL Routine 05/10/2015 11:44 PM CDT BLOOD CELL COUNT (CBC) Routine 5 11:44 PM CDT BLOOD GAS, ARTERIAL Routine 05/10/2015 1 1:44 PM CDT XR CHEST 1 VIEW Routine 05/10/2015 10:11 PM CDT BLOOD GLUCOSE, POC Routine 05/10/2015 7: 37 PM CDT BLOOD GLUCOSE, POC Routine 05/10/2015 3: 46 PM CDT BLOOD GLUCOSE, POC Routine 05/10/2015 11 :43 AM CDT PLASMA PROTHROMBIN TIME (PT) Routine 05/10/2015 8:54 AM CDT PLASMA PARTIAL THROMBOPLASTIN TIME (PTT) Routine 05/10/2015 8:54 AM CDT URINALYSIS Routine 05/10/2015 8:54 AM CDT BLOOD GLUCOSE, POC Routine 05/10/2015 7: 31 AM CDT VRE SCREEN, CDR Routine 05/10/2015 6:08 AM CDT RESPIRATORY PATHOGEN MULTIPLEX PCR, CDR Routine 05/10/2015 6:08 AM CDT MRSA SURVEILLANCE CULTURE, CDR Routine 05/10/2015 6:08 AM CDT SERUM VANCOMYCIN DRUG LEVEL Routine 05/10/2015 6:08 AM CDT SERUM TROPONIN I Routine 05/10/2015 6:08 AM CDT SERUM LIPID PANEL Routine 05/10/2015 6:0 8 AM CDT PLASMA HEPATIC FUNCTION PANEL Routine 05/10/2015 6:08 AM CDT PLASMA BASIC METABOLIC PANEL Routine 05/10/2015 6:08 AM CDT BLOOD LACTIC ACID Routine 05/10/2015 6:0 8 AM CDT BLOOD HEMOGLOBIN A1C Routine 05/10/2015 6:08 AM CDT BLOOD CELL COUNT (CBC) Routine 5 6:08 AM CDT BLOOD GAS, ARTERIAL Routine 05/10/2015 6 :08 AM CDT ABDOMINAL RADIOGRAPHY, FRONTAL (AP) Routine 05/10/2015 5:35 AM CDT XR CHEST 1 VIEW Routine 05/10/2015 5:35 AM CDT BLOOD GLUCOSE, POC Routine 05/10/2015 4: 47 AM CDT ELECTROCARDIOGRAPHY (ECG) 05/10/2015 ALL MICROBIOLOGY REPORT SECTION Routine 05/10/2015 12:00 AM CDT ALL MICROBIOLOGY REPORT SECTION Routine 05/10/2015 12:00 AM CDT ALL MICROBIOLOGY REPORT SECTION Routine 05/10/2015 12:00 AM CDT documented in this encounter Results * DISCHARGE LABORATORY CUMULATIVE REPORT (05/18/2015) Narrative 05/18/2015 Ordered by an unspecified provider. Historical Provider LAB BLOOD ORDERABLES Sandra l Result * (ABNORMAL) Plasma basic metabolic panel (05/17/2015 9:09 PM CDT) Sodium 144 135 - 145 mmol/L HISTORICAL RESULTS K, pl 3.7 3.3 - 4.9 mmol/L HISTORICAL RESULTS Chloride 101 97 - 110 mmol/L HISTORICAL RESULTS CO2 35(H) 22 - 32 mmol/L HISTORICAL RESULTS A. gap 8 0 - 16 mmol/L HISTORICAL RESULTS Glucose 139 70 - 199 mg/dl HISTORICAL RESULTS BUN 10 8 - 25 mg/dl HISTORICAL RESULTS Creatinine 0.54(L) 0.60 - 1.10 mg/dl HISTORICAL RESULTS Calcium 9.2 8.6 - 10.3 mg/dl HISTORICAL RESULTS Plasma 05/17/2015 9:09 PM CDT Historical Provider LAB BLOOD ORDERABLES Sandra l Result HISTORICAL RESULTS * (ABNORMAL) Blood cell count [CBC] express (05/17/2015 9:09 PM CDT) WBC 7.6 3.8 - 9.8 K/cumm HISTORICAL RESULTS RBC 3.18(L) 3.90 - 5.00 M/cumm HISTORICAL RESULTS Hgb 9.6(L) 12.1 - 15.1 g/dl HISTORICAL RESULTS Hct 29.9(L) 36.1 - 44.3 % HISTORICAL RESULTS MCV 94.0 80.0 - 97.6 fl HISTORICAL RESULTS MCH 30.3 26.7 - 33.7 pg HISTORICAL RESULTS MCHC 32.2(L) 32.7 - 35.5 g/dl HISTORICAL RESULTS Rdw 16.2(H) 11.8 - 14.6 % HISTORICAL RESULTS Platelets 174 140 - 440 K/cumm HISTORICAL RESULTS MPV 8.5 6.8 - 10.4 fl HISTORICAL RESULTS Blood specimen (specimen) 05/17/2015 9:09 PM CDT Historical Provider MD LAB BLOOD ORDERABLES Sandra l Result Performing Organization Address [facility] de Phone Number HISTORICAL RESULTS * Blood culture (05/17/2015 1:45 AM CDT) Blood specimen (specimen) (Arm, right) 05/17/2015 1:45 AM CDT 05/17/2015 2:33 AM CDT Impressions HISTORICAL RESULTS - 05/23/2015 12:58 AM CDT Blood cultures are incubated for five days on a continuously monitored blood culture system. ??The first report of a negative culture is issued within 24 hours of receipt of the specimen in the laboratory. ??Positive culture results are reported as soon as they are detected. ??For blood cultures with gram-positive cocci, a rapid molecular test for organism identification may be performed using the [employer] Nanosphere Gram Positive Blood Culture Assay. ??The Nanosphere assay detects microbial DNA in positive blood culture broth via hybridization of target DNA to capture oligonucleotides on a microarray. ??This assay has been cleared by the [place] Food and Drug Administration and its performance characteristics have been verified by the [facility]. Current Interpretive Data was last revised on 2013. Narrative HISTORICAL RESULTS - 05/23/2015 12:58 AM CDT No growth Historical Provider LAB MICROBIOLOGY - GENERA L ORDERABLES Final Result Performing Organization Address City/[facility] de Phone Number HISTORICAL RESULTS * (ABNORMAL) Plasma basic metabolic panel (05/17/2015 12:04 AM CDT) Sodium 143 135 - 145 mmol/L HISTORICAL RESULTS K, pl 3.5 3.3 - 4.9 mmol/L HISTORICAL RESULTS Chloride 104 97 - 110 mmol/L HISTORICAL RESULTS CO2 31 22 - 32 mmol/L HISTORICAL RESULTS A. gap 8 0 - 16 mmol/L HISTORICAL RESULTS Glucose 115 70 - 199 mg/dl HISTORICAL RESULTS BUN 6(L) 8 - 25 mg/dl HISTORICAL RESULTS Creatinine 0.51(L) 0.60 - 1.10 mg/dl HISTORICAL RESULTS Calcium 8.9 8.6 - 10.3 mg/dl HISTORICAL RESULTS Plasma 05/17/2015 12:0 4 AM CDT Historical Provider MD LAB BLOOD ORDERABLES Sandra gu Result HISTORICAL RESULTS * (ABNORMAL) Blood cell count [CBC] express (05/17/2015 12:04 AM CDT) WBC 7.6 3.8 - 9.8 K/cumm HISTORICAL RESULTS RBC 3.30(L) 3.90 - 5.00 M/cumm HISTORICAL RESULTS Hgb 9.8(L) 12.1 - 15.1 g/dl HISTORICAL RESULTS Hct 30.5(L) 36.1 - 44.3 % HISTORICAL RESULTS MCV 92.4 80.0 - 97.6 fl HISTORICAL RESULTS MCH 29.8 26.7 - 33.7 pg HISTORICAL RESULTS MCHC 32.3(L) 32.7 - 35.5 g/dl HISTORICAL RESULTS Rdw 15.3(H) 11.8 - 14.6 % HISTORICAL RESULTS Platelets 176 140 - 440 K/cumm HISTORICAL RESULTS MPV 8.5 6.8 - 10.4 fl HISTORICAL RESULTS Blood specimen (specimen) 05/17/2015 12:04 AM CDT us Historical Provider LAB BLOOD ORDERABLES Sandra gu Result HISTORICAL RESULTS * All Microbiology Report Section (05/17/2015 12:00 AM CDT) 05/17/2015 Narrative HISTORICAL RESULTS - 05/23/2015 3:35 AM CDT ? [facility] ?[facility] ?[place], [place] [address] ? Patient Name: ??PHOEBE HILLMAN ? Med Rec Number: [id number] ? Fin Number: ?[id number] ? Date: ?1940 ? Sex/Age: ? Female 74 years ? Admit Date: ?05/10/2015 ? Discharge Date: 05/18/2015 ? Doctor: ?Medicine , ? Facility: ?[facility] ? Location: ?OTHER ?* Abnormal ??A Alert ??f Footnote ??^ Corrected ??L Low ??H High ?i Interp Data ??@ Ref Lab ? Chart Type:Cumulative ?* * * * MICROBIOLOGY - BLOOD/STERILE FLUID * * * * ?PROCEDURE: Culture, Blood ? SOURCE: Blood ? COLLECTED: 05/17/15 ??0145 ?BODY SITE: Arm, right ? STARTED: 05/17/15 ??0233 ? FREE TEXT SOURCE: ? FINAL REPORT ? REPORTED: 05/23/15 0058 ? No growth ?* * * ??Interpretive Results ??* * * ? (1)Blood cultures are incubated for five days on a continuously ? monitored blood culture system. ??The first report of a negative ? culture is issued within 24 hours of receipt of the specimen in ? the laboratory. ??Positive culture results are reported as soon ? as they are detected. ??For blood cultures with gram-positive ? cocci, a rapid molecular test for organism identification may be ? performed using the [employer] Nanosphere Gram Positive Blood ? Culture Assay. ??The Nanosphere assay detects microbial DNA in ? positive blood culture broth via hybridization of target DNA to ? capture oligonucleotides on a microarray. ??This assay has been ? cleared by the [place] Food and Drug Administration and ? its performance characteristics have been verified by the ? [facility].Current ? Interpretive Data was last revised on 2013. ? us Historical Provider LAB MICROBIOLOGY - GENERA L ORDERABLES Final Result HISTORICAL RESULTS * Blood culture (05/16/2015 6:50 PM CDT) Blood specimen (specimen) (Hand, right) 05/16/2015 6:50 PM CDT 05/16/2015 7:42 PM CDT Impressions HISTORICAL RESULTS - 05/22/2015 12:17 AM CDT Blood cultures are incubated for five days on a continuously monitored blood culture system. ??The first report of a negative culture is issued within 24 hours of receipt of the specimen in the laboratory. ??Positive culture results are reported as soon as they are detected. ??For blood cultures with gram-positive cocci, a rapid molecular test for organism identification may be performed using the [employer] Nanosphere Gram Positive Blood Culture Assay. ??The Nanosphere assay detects microbial DNA in positive blood culture broth via hybridization of target DNA to capture oligonucleotides on a microarray. ??This assay has been cleared by the [place] Food and Drug Administration and its performance characteristics have been verified by the [facility]. Current Interpretive Data was last revised on 2013. Narrative HISTORICAL RESULTS - 05/22/2015 12:17 AM CDT No growth us Historical Provider LAB MICROBIOLOGY - GENERA L ORDERABLES Final Result HISTORICAL RESULTS * (ABNORMAL) Blood gas, arterial (05/16/2015 10:10 AM CDT) Ph, art 7.38 7.35 - 7.45 HISTORICAL RESULTS PCO2 48(H) 35 - 45 mm Hg HISTORICAL RESULTS PO2, art 93 80 - 105 mm Hg HISTORICAL RESULTS CO2, calc, art 29 21 - 30 mmol/L HISTORICAL RESULTS A-a gradient Not Applicable mm Hg HI STORICAL RESULTS O2, inspired, %, art Not Applicable % HISTORICAL RESULTS Oxygen (O2), inspired fraction (FiO2) Not Applicable liters HISTORICAL RESULTS Arterial blood 05/16/2015 10 :10 AM CDT us Mayte Roldan MD LAB BLOOD ORDER FANI Final Result HISTORICAL RESULTS * All Microbiology Report Section (05/16/2015 12:00 AM CDT) 05/16/2015 Narrative HISTORICAL RESULTS - 05/22/2015 3:32 AM CDT ? [facility] ?[facility] ?[place] [address] ? Patient Name: ??PHOEBE HILLMAN ? Med Rec Number: [id number] ? Fin Number: ?[id number] ? Date: ?1940 ? Sex/Age: ? Female 74 years ? Admit Date: ?05/10/2015 ? Discharge Date: 05/18/2015 ? Doctor: ?Medicine , ? Facility: ?[facility] ? Location: ?OTHER ?* Abnormal ??A Alert ??f Footnote ??^ Corrected ??L Low ??H High ?i Interp Data ??@ Ref Lab ? Chart Type:Cumulative ?* * * * MICROBIOLOGY - BLOOD/STERILE FLUID * * * * ?PROCEDURE: Culture, Blood ? SOURCE: Blood ? COLLECTED: 05/16/15 ??1850 ?BODY SITE: Hand, right ? STARTED: 05/16/15 ??1942 ? FREE TEXT SOURCE: ? FINAL REPORT ? REPORTED: 05/22/15 0017 ? No growth ?* * * ??Interpretive Results ??* * * ? (1)Blood cultures are incubated for five days on a continuously ? monitored blood culture system. ??The first report of a negative ? culture is issued within 24 hours of receipt of the specimen in ? the laboratory. ??Positive culture results are reported as soon ? as they are detected. ??For blood cultures with gram-positive ? cocci, a rapid molecular test for organism identification may be ? performed using the [employer] Nanosphere Gram Positive Blood ? Culture Assay. ??The Nanosphere assay detects microbial DNA in ? positive blood culture broth via hybridization of target DNA to ? capture oligonucleotides on a microarray. ??This assay has been ? cleared by the [place] Food and Drug Administration and ? its performance characteristics have been verified by the ? [facility].Current ? Interpretive Data was last revised on 2013. ? Historical Provider LAB MICROBIOLOGY - GENERA L ORDERABLES Final Result Performing Organization Address City/[facility] Co de Phone Number HISTORICAL RESULTS * VASCULAR LABORATORY REPORT (05/16/2015) Anatomical Region Laterality Modality Ultrasound Narrative 05/16/2015 Ordered by an unspecified provider. Historical Provider CV VASCULAR PROCEDURES Fi nal Result * (ABNORMAL) Plasma basic metabolic panel (05/15/2015 10:54 PM CDT) Sodium 141 135 - 145 mmol/L HISTORICAL RESULTS K, pl 3.3 3.3 - 4.9 mmol/L HISTORICAL RESULTS Chloride 103 97 - 110 mmol/L HISTORICAL RESULTS CO2 30 22 - 32 mmol/L HISTORICAL RESULTS A. gap 8 0 - 16 mmol/L HISTORICAL RESULTS Glucose 98 70 - 199 mg/dl HISTORICAL RESULTS BUN 10 8 - 25 mg/dl HISTORICAL RESULTS Creatinine 0.51(L) 0.60 - 1.10 mg/dl HISTORICAL RESULTS Calcium 8.9 8.6 - 10.3 mg/dl HISTORICAL RESULTS Plasma 05/15/2015 10:5 4 PM CDT Result [facility] Historical Provider LAB BLOOD ORDERABLES Sandra l Result Performing Organization Address [facility] de Phone Number HISTORICAL RESULTS * Plasma phosphorus (05/15/2015 10:54 PM CDT) Phosphorus, pl 2.6 2.3 - 4.3 mg/dl HISTORICAL RESULTS Plasma 05/15/2015 10:5 4 PM CDT Historical Provider LAB BLOOD ORDERABLES Sandra l Result Performing Organization Address [facility] Co de Phone Number HISTORICAL RESULTS * Serum magnesium (05/15/2015 10:54 PM CDT) Magnesium 2.0 1.4 - 2.5 mg/dl HISTORICAL RESULTS Serum 05/15/2015 10:5 4 PM CDT Historical Provider LAB BLOOD ORDERABLES Sandra riccardo Result HISTORICAL RESULTS * (ABNORMAL) Blood cell count [CBC] express (05/15/2015 10:54 PM CDT) WBC 9.6 3.8 - 9.8 K/cumm HISTORICAL RESULTS RBC 3.21(L) 3.90 - 5.00 M/cumm HISTORICAL RESULTS Hgb 9.6(L) 12.1 - 15.1 g/dl HISTORICAL RESULTS Hct 29.7(L) 36.1 - 44.3 % HISTORICAL RESULTS MCV 92.4 80.0 - 97.6 fl HISTORICAL RESULTS MCH 30.0 26.7 - 33.7 pg HISTORICAL RESULTS MCHC 32.5(L) 32.7 - 35.5 g/dl HISTORICAL RESULTS Rdw 15.9(H) 11.8 - 14.6 % HISTORICAL RESULTS Platelets 177 140 - 440 K/cumm HISTORICAL RESULTS MPV 8.2 6.8 - 10.4 fl HISTORICAL RESULTS Blood specimen (specimen) 05/15/2015 10:54 PM CDT Historical Provider LAB BLOOD ORDERABLES Sandra gu Result Performing Organization Address City/[facility] de Phone Number HISTORICAL RESULTS * (ABNORMAL) Plasma basic metabolic panel (05/14/2015 9:15 PM CDT) Sodium 141 135 - 145 mmol/L HISTORICAL RESULTS K, pl 3.4 3.3 - 4.9 mmol/L HISTORICAL RESULTS Chloride 103 97 - 110 mmol/L HISTORICAL RESULTS CO2 29 22 - 32 mmol/L HISTORICAL RESULTS A. gap 9 0 - 16 mmol/L HISTORICAL RESULTS Glucose 148 70 - 199 mg/dl HISTORICAL RESULTS BUN 11 8 - 25 mg/dl HISTORICAL RESULTS Creatinine 0.45(L) 0.60 - 1.10 mg/dl HISTORICAL RESULTS Calcium 9.1 8.6 - 10.3 mg/dl HISTORICAL RESULTS Plasma 05/14/2015 9:15 PM CDT Allen Mahmood LAB BLOOD ORDERABLES Final Resul t Performing Organization Address City/[facility]/ZIP Co de Phone Number HISTORICAL RESULTS * Serum thyroxine (T4), free (05/14/2015 9:15 PM CDT) Free T4 1.42 0.90 - 1.80 ng/dl HISTORICAL RESULTS Serum 05/14/2015 9:15 PM CDT Allen Mahmood LAB BLOOD ORDERABLES Final Resul t Performing Organization Address [facility] Co de Phone Number HISTORICAL RESULTS * (ABNORMAL) Blood cell count (CBC) (05/14/2015 9:15 PM CDT) WBC 11.9(H) 3.8 - 9.8 K/cumm HISTORICAL RESULTS RBC 3.54(L) 3.90 - 5.00 M/cumm HISTORICAL RESULTS Hgb 10.5(L) 12.1 - 15.1 g/dl HISTORICAL RESULTS Hct 32.3(L) 36.1 - 44.3 % HISTORICAL RESULTS MCV 91.1 80.0 - 97.6 fl HISTORICAL RESULTS MCH 29.6 26.7 - 33.7 pg HISTORICAL RESULTS MCHC 32.5(L) 32.7 - 35.5 g/dl HISTORICAL RESULTS Rdw 15.0(H) 11.8 - 14.6 % HISTORICAL RESULTS Platelets 197 140 - 440 K/cumm HISTORICAL RESULTS MPV 7.9 6.8 - 10.4 fl HISTORICAL RESULTS Neutrophils 71.5 38.7 - 74.5 % HISTORICAL RESULTS Lymphocytes 16.5(L) 20.0 - 54.3 % HISTORICAL RESULTS Monos 11.2 4.3 - 13.5 % HISTORICAL RESULTS Eosinophils 0.6 0.0 - 6.0 % HISTORICAL RESULTS Basophils 0.2 0.0 - 3.0 % HISTORICAL RESULTS Neutrophils, abs 8.5(H) 1.8 - 6.6 K/cumm HISTORICAL RESULTS Lymphocytes, abs 2.0 1.2 - 3.3 K/cumm HISTORICAL RESULTS Monocytes, absolute 1.3(H) 0.2 - 1.2 K/cumm HISTORICAL RESULTS Eosinophils, abs 0.1 0.0 - 0.5 K/cumm HISTORICAL RESULTS Basophils, abs 0.0 0.0 - 0.2 K/cumm HISTORICAL RESULTS Blood specimen (specimen) 05/14/2015 9:15 PM CDT us Allen Mahmood LAB BLOOD ORDERABLES Final Resul t Performing Organization Address [facility] Co de Phone Number HISTORICAL RESULTS * Fungal culture (05/14/2015 2:43 AM CDT) Blood specimen (specimen) (Unknown) 05/14/2015 2:43 AM CDT 05/14/2015 4:59 AM CDT Narrative HISTORICAL RESULTS - 06/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 [facility] ?[facility] [place] ?[place], [place] [address] ? Patient Name: ??PHOEBE HILLMAN ? Med Rec Number: [id number] ? Fin Number: ?[id number] ? Date: ?1940 ? Sex/Age: ? Female 74 years ? Admit Date: ?05/10/2015 ? Discharge Date: 05/18/2015 ? Doctor: ?Medicine , ? Facility: ?[facility] ? Location: ?OTHER ?* Abnormal ??A Alert ??f Footnote ??^ Corrected ??L Low ??H High ?i Interp Data ??@ Ref Lab ? Chart Type:Cumulative ?* * * * MICROBIOLOGY - MYCOLOGY * * * * ?PROCEDURE: Mycology Culture (Isolator) ? SOURCE: Blood ? COLLECTED: 10/10/15 ??0243 ?BODY SITE: ? STARTED: 10/10/15 ??0459 ? FREE TEXT SOURCE: ? FINAL REPORT ? REPORTED: 06/13/15 0756 ? No growth of fungus Historical Provider LAB MICROBIOLOGY - GENERA L ORDERABLES Final Result Performing Organization Address [facility] de Phone Number HISTORICAL RESULTS * (ABNORMAL) Plasma basic metabolic panel (05/13/2015 10:57 PM CDT) Sodium 142 135 - 145 mmol/L HISTORICAL RESULTS K, pl 3.4 3.3 - 4.9 mmol/L HISTORICAL RESULTS Chloride 102 97 - 110 mmol/L HISTORICAL RESULTS CO2 28 22 - 32 mmol/L HISTORICAL RESULTS A. gap 12 0 - 16 mmol/L HISTORICAL RESULTS Glucose 100 70 - 199 mg/dl HISTORICAL RESULTS BUN 17 8 - 25 mg/dl HISTORICAL RESULTS Creatinine 0.45(L) 0.60 - 1.10 mg/dl HISTORICAL RESULTS Calcium 8.9 8.6 - 10.3 mg/dl HISTORICAL RESULTS Plasma 05/13/2015 10:5 7 PM CDT Historical Provider LAB BLOOD ORDERABLES Sandra l Result Performing Organization Address [facility] de Phone Number HISTORICAL RESULTS * (ABNORMAL) Blood cell count [CBC] express (05/13/2015 10:57 PM CDT) WBC 13.5(H) 3.8 - 9.8 K/cumm HISTORICAL RESULTS RBC 3.74(L) 3.90 - 5.00 M/cumm HISTORICAL RESULTS Hgb 11.1(L) 12.1 - 15.1 g/dl HISTORICAL RESULTS Hct 34.5(L) 36.1 - 44.3 % HISTORICAL RESULTS MCV 92.3 80.0 - 97.6 fl HISTORICAL RESULTS MCH 29.8 26.7 - 33.7 pg HISTORICAL RESULTS MCHC 32.2(L) 32.7 - 35.5 g/dl HISTORICAL RESULTS Rdw 14.6 11.8 - 14.6 % HISTORICAL RESULTS Platelets 199 140 - 440 K/cumm HISTORICAL RESULTS MPV 8.1 6.8 - 10.4 fl HISTORICAL RESULTS Blood specimen (specimen) 05/13/2015 10:57 PM CDT Historical Provider LAB BLOOD ORDERABLES Sandra l Result Performing Organization Address City/[facility]/ZIP Co de Phone Number HISTORICAL RESULTS * Serum Coccidioides ab (05/13/2015 10:57 PM CDT) Pathologist [facility] [place] Coccidioides ab, comp fix Negative Negative HISTORICAL RESULTS Coccidioides ab, IgG, immunodiffusion Negative Negative HISTORICAL RESULTS Coccidioides ab, IgM, immunodiffusion Negative Negative HISTORICAL RESULTS Comment: A negative complement fixation and immunodiffusion (CF/ID) result does not exclude the diagnosis of coccidioidomycosis. ??Repeat testing by CF/ID in 2-3 weeks if clinically indicated. Test Performed by: [place] [address] [employer]: Jacinto Garcia II, M.D., Ph.D. Serum 05/13/2015 10:5 7 PM CDT Historical Provider LAB BLOOD ORDERABLES Sandra l Result Performing Organization Address [facility] Co de Phone Number HISTORICAL RESULTS * (ABNORMAL) Serum thyroid-stimulating hormone (TSH) (05/13/2015 10:57 PM CDT) Pathologist [facility] [place] TSH 0.34(L) 0.35 - 5.50 mcIUnits/ ml HISTORICAL RESULTS Comment: Interpretive Data Hyperthyroid: ??<0.1 mcIUnit/mL Hypothyroid: ??>12.0 mcIUnit/mL Current interpretive data was last revised on 00. Serum 05/13/2015 10:5 7 PM CDT Historical Provider LAB BLOOD ORDERABLES Sandra l Result Performing Organization Address City/[facility] Co de Phone Number HISTORICAL RESULTS * Serum Human Immunodeficiency virus (HIV) 1/2 ab + p24 ag (05/13/2015 10:57 PM CDT) Pathologist [facility] [place] HIV 1/2 ab p24 ag Nonreactive Nonreactive HISTORICAL RESULTS Serum 05/13/2015 10:5 7 PM CDT Historical Provider MD LAB BLOOD ORDERABLES Sandra l Result Performing Organization Address City/[facility] Co de Phone Number HISTORICAL RESULTS * Cryptococcus antigen (05/13/2015 10:57 PM CDT) Blood specimen (specimen) (Unknown) 05/13/2015 10:57 PM CDT 05/13/2015 11:49 PM CDT Narrative HISTORICAL RESULTS - 05/14/2015 2:13 PM CDT Negative for: Cryptococcus neoformans antigen. Historical Provider MD LAB MICROBIOLOGY - GENERA L ORDERABLES Final Result Performing Organization Address [facility] de Phone Number HISTORICAL RESULTS * Blood culture (05/13/2015 8:59 PM CDT) Blood specimen (specimen) (Peripheral) 05/13/2015 8:59 PM CDT 05/13/2015 9:29 PM CDT Impressions HISTORICAL RESULTS - 05/19/2015 6:24 AM CDT Blood cultures are incubated for five days on a continuously monitored blood culture system. ??The first report of a negative culture is issued within 24 hours of receipt of the specimen in the laboratory. ??Positive culture results are reported as soon as they are detected. ??For blood cultures with gram-positive cocci, a rapid molecular test for organism identification may be performed using the [employer] Nanosphere Gram Positive Blood Culture Assay. ??The Nanosphere assay detects microbial DNA in positive blood culture broth via hybridization of target DNA to capture oligonucleotides on a microarray. ??This assay has been cleared by the [place] Food and Drug Administration and its performance characteristics have been verified by the [facility]. Current Interpretive Data was last revised on 2013. Narrative HISTORICAL RESULTS - 05/19/2015 6:24 AM CDT No growth Historical Provider LAB MICROBIOLOGY - GENERA L ORDERABLES Final Result Performing Organization Address City/[facility] Co de Phone Number HISTORICAL RESULTS * Histoplasma antigen (05/13/2015 8:58 PM CDT) Urine (Unknown) 05/13/2015 8 :58 PM CDT 05/13/2015 9:32 PM CDT Impressions HISTORICAL RESULTS - 06/23/2015 6:24 PM TELEPRINTER INSTALLER Testing Performed by: [employer], [place] [address]. Narrative HISTORICAL RESULTS - 06/23/2015 6:24 PM TELEPRINTER INSTALLER Negative for: Histoplasma antigen Histoplasma Antigen Result: ??None detected. * ??* ??* ??* ??* Result Interpretation: Reference interval: None Detected Results reported as ng/mL in 0.4 - 19 ng/mL Results above the limit of detection but below 0.4 ng/mL are reported as 'Positive, Below the Limit of Quantification' Results above 19 ng/mL are reported as 'Positive, Above the Limit of Quantification' * ??* ??* ??* ??* ??* ??* ??* ??* ??* ??* ??* ??* ??* ??* ??* ??* ??* ??* ??* This test was developed and its performance characteristics determined by [employer]. ??It has not been cleared or approved by the FDA; however, FDA clearance or approval is not currently required for clinical use. The results are not intended to be used as the sole means for clinical diagnosis or patient management decisions. Historical Provider LAB MICROBIOLOGY - GENERA L ORDERABLES Final Result Performing Organization Address City/[facility] Co de Phone Number HISTORICAL RESULTS * Blood glucose, POC (05/13/2015 8:00 PM CDT) Glucose, POC, bld 102 70 - 199 mg/dl HISTORICAL RESULTS Blood specimen (specimen) 05/13/2015 8:00 PM CDT Mayte Roldan MD LAB BLOOD ORDER FANI Final Result Performing Organization Address City/[facility]/ZIP Co de Phone Number HISTORICAL RESULTS * CT Head WO Contrast (05/13/2015 6:09 PM CDT) Anatomical Region Laterality Modality Head and Neck N/A Computed Tomogra phy 05/13/2015 6:09 PM CDT Narrative 05/14/2015 12:15 PM CDT COREY HEIN M.D. QI CARNEY M.D. FINAL REPORT The radiology attending physician has personally reviewed this study, and has reviewed and/or edited this written report and agrees with it. ACC# ??Date Time ??Exam [id number] May 13, 2015 18:09:[id number] Head or Brain w/o cont EXAMINATION: ?? Noncontrast head CT HISTORY: 74-year-old female who had temporary altered mental status who is now at baseline. TECHNIQUE: Noncontrast CT of the brain was performed with images acquired from skull base to vertex. COMPARISON: None available. FINDINGS: There is mild diffuse volume loss with ex vacuo ventricular dilatation. There is no acute intracranial hemorrhage. 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 No mass effect or midline shift is present. The lan-white matter differentiation is normal. Bilateral lens replacements are noted. There is partial opacification of the mastoid air cells. The visualized portions of the paranasal sinuses are normal. No fractures are identified. IMPRESSION: ?? No acute hemorrhage or midline shift. Requested By: ALLEN MAHMOOD M.D. Dictated By: ?? QI CARNEY M.D. ??on May ??2014 ??9:41P This document has been electronically signed by: COREY HEIN M.D. on May 14 2015 12:15P [id number] Procedure Note Provider, MD Herb - 12/03/2016 COREY HEIN M.D. QI CARNEY M.D. FINAL REPORT The radiology attending physician has personally reviewed this study, and has reviewed and/or edited this written report and agrees with it. ACC# Date Time Exam [id number] May 13, 2015 18:09:[id number] Head or Brain w/o cont EXAMINATION: Noncontrast head CT HISTORY: 74-year-old female who had temporary altered mental status who is now at baseline. TECHNIQUE: Noncontrast CT of the brain was performed with images acquired from skull base to vertex. COMPARISON: None available. FINDINGS: There is mild diffuse volume loss with ex vacuo ventricular dilatation. There is no acute intracranial hemorrhage. 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 No mass effect or midline shift is present. The lan-white matter differentiation is normal. Bilateral lens replacements are noted. There is partial opacification of the mastoid air cells. The visualized portions of the paranasal sinuses are normal. No fractures areidentified. IMPRESSION: No acute hemorrhage or midline shift. Requested By: ALLEN MAHMOOD M.D. Dictated By: QI CARNEY M.D. on May 13 2015 9:41P This document has been electronically signed by: COREY HEIN M.D. on May 14 2015 12:15P [id number] us Historical Provider MD DENT CT PROCEDURES Final R esult * XR Interpretation Of Outside Films (05/13/2015 4:58 PM CDT) Anatomical Region Laterality Modality N/A Radiographic Cesia ging 05/13/2015 4:58 PM CDT Narrative 05/13/2015 5:12 PM CDT OUTSIDE IMAGES MEDICAL BILLING MANAGER, FINAL REPORT ACC# ??Date Time ??Exam [id number] May 13, 2015 16:57:00 [id number] [facility] Body CT Reference [id number] May 13, 2015 16:57:00 [id number] [facility] Body CT Reference [id number] May 13, 2015 16:58:00 [id number] [facility] Plain Film Reference EXAMINATION: ?Images For Reference Purposes Only IMPRESSION: ?These images have been uploaded for Reference purposes only. ??There will be no separate report generated by a [facility] Radiologist. Requested By: Dictated By: ?? OUTSIDE IMAGES MEDICAL BILLING MANAGER, ?? on May ??2014 ??5:12P This document has been electronically signed by: OUTSIDE IMAGES MEDICAL BILLING MANAGER, ??on May ??2014 ??5:12P [id number] Procedure Note Provider, MD Herb - 12/03/2016 OUTSIDE IMAGES MEDICAL BILLING MANAGER, FINAL REPORT ACC# Date Time Exam [id number] May 13, 2015 16:57:00 [id number] [facility] Body CT Reference [id number] May 13, 2015 16:57:00 [id number] [facility] Body CT Reference [id number] May 13, 2015 16:58:00 [id number] [facility] Plain Film Reference EXAMINATION: Images For Reference Purposes Only IMPRESSION: These images have been uploaded for Reference purposes only. There will be no separate report generated by a [facility] Radiologist. Requested By: Dictated By: OUTSIDE IMAGES MEDICAL BILLING MANAGER, on May 13 2015 5:12P This document has been electronically signed by: OUTSIDE IMAGES MEDICAL BILLING MANAGER, on May 13 2015 5:12P [id number] us Historical Provider IMG XR PROCEDURES Final R esult * XR Interpretation Of Outside Films (05/13/2015 4:57 PM CDT) Anatomical Region Laterality Modality N/A Radiographic Cesia ging 05/13/2015 4:57 PM CDT Narrative 05/13/2015 5:12 PM CDT OUTSIDE IMAGES MEDICAL BILLING MANAGER, FINAL REPORT ACC# ??Date Time ??Exam [id number] May 13, 2015 16:57:00 [id number] [facility] Body CT Reference [id number] May 13, 2015 16:57:00 [id number] [facility] Body CT Reference [id number] May 13, 2015 16:58:00 [id number] [facility] Plain Film Reference EXAMINATION: ?Images For Reference Purposes Only IMPRESSION: ?These images have been uploaded for Reference purposes only. ??There will be no separate report generated by a [facility] Radiologist. Requested By: Dictated By: ?? OUTSIDE IMAGES MEDICAL BILLING MANAGER, ?? on May ??2014 ??5:12P This document has been electronically signed by: OUTSIDE IMAGES MEDICAL BILLING MANAGER, ??on May?2014 ??5:12P [id number] Procedure Note Provider, Herb, - 12/03/2016 OUTSIDE IMAGES MEDICAL BILLING MANAGER, FINAL REPORT ACC# Date Time Exam [id number] May 13, 2015 16:57:00 [id number] [facility] Body CT Reference [id number] May 13, 2015 16:57:00 [id number] [facility] Body CT Reference [id number] May 13, 2015 16:58:00 [id number] [facility] Plain Film Reference EXAMINATION: Images For Reference Purposes Only IMPRESSION: These images have been uploaded for Reference purposes only. There will be no separate report generated by a [facility] Radiologist. Requested By: Dictated By: OUTSIDE IMAGES MEDICAL BILLING MANAGER, on May 13 2015 5:12P This document has been electronically signed by: OUTSIDE IMAGES MEDICAL BILLING MANAGER, on May 13 2015 5:12P [id number] us Historical Provider IMG XR PROCEDURES Final R esult * XR Interpretation Of Outside Films (05/13/2015 4:57 PM CDT) Anatomical Region Laterality Modality N/A Radiographic Cesia ging 05/13/2015 4:57 PM CDT Narrative 05/13/2015 5:12 PM CDT OUTSIDE IMAGES MEDICAL BILLING MANAGER, FINAL REPORT ACC# ??Date Time ??Exam [id number] May 13, 2015 16:57:00 [id number] [facility] Body CT Reference [id number] May 13, 2015 16:57:00 [id number] [facility] Body CT Reference [id number] May 13, 2015 16:58:00 [id number] [facility] Plain Film Reference EXAMINATION: ?Images For Reference Purposes Only IMPRESSION: ?These images have been uploaded for Reference purposes only. ??There will be no separate report generated by a [facility] Radiologist. Requested By: Dictated By: ?? OUTSIDE IMAGES MEDICAL BILLING MANAGER, ?? on May ??2014 ??5:12P This document has been electronically signed by: OUTSIDE IMAGES MEDICAL BILLING MANAGER, ??on May?2014 ??5:12P [id number] Procedure Note Provider, Herb, - 12/03/2016 OUTSIDE IMAGES MEDICAL BILLING MANAGER, FINAL REPORT ACC# Date Time Exam [id number] May 13, 2015 16:57:00 [id number] [facility] Body CT Reference [id number] May 13, 2015 16:57:00 [id number] [facility] Body CT Reference [id number] May 13, 2015 16:58:00 [id number] [facility] Plain Film Reference EXAMINATION: Images For Reference Purposes Only IMPRESSION: These images have been uploaded for Reference purposes only. There will be no separate report generated by a [facility] Radiologist. Requested By: Dictated By: OUTSIDE IMAGES MEDICAL BILLING MANAGER, on May 13 2015 5:12P This document has been electronically signed by: OUTSIDE IMAGES MEDICAL BILLING MANAGER, on May 13 2015 5:12P [id number] us Historical Provider MD DENT XR PROCEDURES Final R esult * (ABNORMAL) Blood gas, arterial (05/13/2015 3:45 PM CDT) Ph, art 7.46(H) 7.35 - 7.45 HISTORICAL RESULTS PCO2 39 35 - 45 mm Hg HISTORICAL RESULTS PO2, art 114(H) 80 - 105 mm Hg HISTORICAL RESULTS CO2, calc, art 29 21 - 30 mmol/L HISTORICAL RESULTS A-a gradient Not Applicable mm Hg HI STORICAL RESULTS O2, inspired, %, art Not Applicable % HISTORICAL RESULTS Oxygen (O2), inspired fraction (FiO2) Not Applicable liters HISTORICAL RESULTS Arterial blood 05/13/2015 3: 45 PM CDT us Allen Mahmood LAB BLOOD ORDERABLES Final Resul t HISTORICAL RESULTS * Blood culture (05/13/2015 12:54 PM CDT) Blood specimen (specimen) (Catheter) 05/13/2015 12:54 PM CDT 05/13/2015 1:32 PM CDT Impressions HISTORICAL RESULTS - 05/17/2015 8:19 AM CDT Blood cultures are incubated for five days on a continuously monitored blood culture system. ??The first report of a negative culture is issued within 24 hours of receipt of the specimen in the laboratory. ??Positive culture results are reported as soon as they are detected. ??For blood cultures with gram-positive cocci, a rapid molecular test for organism identification may be performed using the [employer] Nanosphere Gram Positive Blood Culture Assay. ??The Nanosphere assay detects microbial DNA in positive blood culture broth via hybridization of target DNA to capture oligonucleotides on a microarray. ??This assay has been cleared by the [place] Food and Drug Administration and its performance characteristics have been verified by the [facility]. Current Interpretive Data was last revised on 2013. Narrative HISTORICAL RESULTS - 05/17/2015 8:19 AM CDT Coagulase negative Staphylococcus species Isolate of questionable significance. ??If a similar isolate is recovered from a second blood culture collected within 3 days of this culture, both will be evaluated and, if determined to be related, antimicrobial susceptibility testing will be performed. Notification of: Gram Positive Cocci in clusters called to and read back by: Dr. Daly ([phone]) on 05/15/2015 4:22:17 Staphylococcus species detected by the [employer] Blood Culture Nucleic Acid Test. This is most suggestive of a coagulase negative Staphylococcus species. Please refer to final culture-based result for confirmation. This test does not exclude the possibility of a mixed bacterial infection. Historical Provider LAB MICROBIOLOGY - GENERA L ORDERABLES Final Result HISTORICAL RESULTS * Blood glucose, POC (05/13/2015 12:13 PM CDT) [facility] Glucose, POC, bld 121 70 - 199 mg/dl HISTORICAL RESULTS Blood specimen (specimen) 05/13/2015 12:13 PM CDT Mayte Roldan MD LAB BLOOD ORDER FANI Final Result HISTORICAL RESULTS * XR Chest 1 View (05/13/2015 9:40 AM CDT) Anatomical Region Laterality Modality Body, Chest N/A Radiographic Cesia ging 05/13/2015 9:40 AM CDT Narrative 05/13/2015 5:42 PM CDT VEE VIEIRA M.D. JAZIEL MOON M.D. FINAL REPORT The radiology attending physician has personally reviewed this study, and has reviewed and/or edited this written report and agrees with it. ACC# ??Date Time ??Exam [id number] May 13, 2015 09:40:00 [id number] Chest 1 view Frontal EXAMINATION: ?CHEST 1 VIEW IMPRESSION: ?? A portable AP view of the chest was obtained. Comparison is made to the chest radiograph dated 05/12/2015. Radiographs are correlated with computed tomography from 05/13/2015. A left arm peripherally inserted central venous catheter is unchanged, terminating in the superior vena cava. There is a nodular opacity in the right midlung, which is shown to be a cavitary lesion with surrounding soft tissue on computed tomography from 05/13/2015. There are small bilateral pleural effusions. There is minimal right and mild left basilar atelectasis. There is no pneumothorax. The cardiomediastinal silhouette is stable. Requested By: EDEN LIN M.D. Dictated By: ?? JAZIEL MOON M.D. ??on May ?2014 10:36A This document has been electronically signed by: VEE VIEIRA M.D. on May?2014 ??5:42P [id number] Procedure Note Provider, MD Herb - 12/03/2016 Geovanny DE LA VEGA M.D. FINAL REPORT The radiology attending physician has personally reviewed this study, and has reviewed and/or edited this written report and agrees with it. [facility]# Date Time Exam [id number] May 13, 2015 09:40:00 [id number] Chest 1 view Frontal EXAMINATION: CHEST 1 VIEW IMPRESSION: A portable AP view of the chest was obtained. Comparison is made to the chest radiograph dated 05/12/2015. Radiographs are correlated with computed tomography from 05/13/2015. A left arm peripherally inserted central venous catheter is unchanged, terminating in the superior vena cava. There is a nodular opacity in the right midlung, which is shown to be a cavitary lesion with surrounding soft tissue on computed tomography from 05/13/2015. There are small bilateral pleural effusions. There is minimal right and mild left basilar atelectasis. There is no pneumothorax. The cardiomediastinal silhouette is stable. Requested By: EDEN LIN M.D. Dictated By: JAZIEL MOON M.D. on May 13 2015 10:36A This document has been electronically signed by: VEE VIEIRA M.D. on May 13 2015 5:42P [id number] Historical Provider MD DENT XR PROCEDURES Final R esult * (ABNORMAL) Urinalysis (05/13/2015 9:39 AM CDT) Color, ur Yellow Yellow HISTORICAL RESULTS Clarity, ur Cloudy(A) Clear HISTORIC AL RESULTS Specific gravity, ur 1.018 1.003 - 1.030 HISTORICAL RESULTS pH, ur 6.0 5.0 - 8.0 HISTORICAL RESULTS Protein, ur 1+(A) Trace HISTORIC AL RESULTS Glucose, ur Negative Negative HISTORIC AL RESULTS Ketones, ur Trace(A) Negative HISTORIC AL RESULTS Bilirubin, ur Negative Negative HISTOR ICAL RESULTS U Blood 2+(A) Negative HISTORICAL RESULTS Urobilinogen, quant, ur <2.0 0.0 - 2.0 mg/dl HISTORICAL RESULTS Nitrites, ur Negative Negative HISTORI JEB RESULTS Leukocyte esterase, ur 3+(A) Negative HISTORICAL RESULTS Urine 05/13/2015 9:39 AM CDT Historical Provider LAB BLOOD ORDERABLES Sandra l Result Performing Organization Address City/State/[facility] Co de Phone Number HISTORICAL RESULTS * (ABNORMAL) Urine microscopy (05/13/2015 9:39 AM CDT) RBC, ur >50(H) 0 - 3 /hpf HISTORICAL RESULTS WBC, ur >50(H) 0 - 5 /hpf HISTORICAL RESULTS Bacteria, ur 1+ Trace HISTORI JEB RESULTS Epithelial cells, renal, ur 0 0 - 0 /hpf HISTORICAL RESULTS Epithelial cells, squamous, ur >20 /lpf HISTORICAL RESULTS Mucus, ur Small /hpf HISTORICAL RESULTS Yeast, ur Present(A) None Seen HISTORICA L RESULTS Urine 05/13/2015 9:39 AM CDT Historical Provider LAB BLOOD ORDERABLES Sandra l Result Performing Organization Address City/[facility]/ZIP Co de Phone Number HISTORICAL RESULTS * Urine (aerobic) culture (05/13/2015 9:39 AM CDT) Urine (Unknown) 05/13/2015 9 :39 AM CDT 05/13/2015 11:16 AM CDT Narrative HISTORICAL RESULTS - 05/15/2015 2:51 PM CDT Greater than or equal to 50,000 colonies/ml of: Yeast us Historical Provider LAB MICROBIOLOGY - GENERA L ORDERABLES Final Result HISTORICAL RESULTS * CT Chest W Contrast (05/13/2015 9:37 AM CDT) Anatomical Region Laterality Modality Body N/A Computed Tomogra phy 05/13/2015 9:37 AM CDT Narrative 05/13/2015 10:06 AM CDT SUSU FOWLER M.D. FINAL REPORT ACC# ??Date Time ??Exam [id number] May 13, 2015 09:37:[id number] Chest with contrast EXAMINATION: ?CT of the chest with intravenous contrast HISTORY: Shortness of breath, pneumonia. TECHNIQUE: ??Transaxial computed tomographic images of the chest were obtained with intravenous contrast according to standard protocol. ??No immediate complications following intravenous contrast administration. FINDINGS: ??No CT for comparison. Left subclavian central line tip is within the right atrium. The thyroid is enlarged and heterogeneous consistent with multiple small nodules. A dominant nodule is seen within the right lobe measuring up to 2.3 cm. Further evaluation with ultrasound is recommended. The evaluation of the lung parenchyma is limited secondary to respiratory motion artifact. There is mild diffuse peribronchial wall thickening. There is centrilobular emphysema of the upper lungs. There is a 3.6 x 2.4 cm cavitary mass seen within the subpleural region of the right upper lobe. There is a 9 mm right upper lobe nodule seen on series 3, image 61. Additional smaller nodules are seen within the bilateral lungs. There is ground glass opacity with interlobular and intralobular septal thickening within the right upper lobe. Subtle ground glass opacity with tree-in-bud opacities noted within the left upper and lower lobes. There are small bilateral pleural effusions with compressive atelectasis. These findings are consistent with multifocal pneumonia in the proper clinical setting. The pericardium, heart and great vessels are normal. ?? No mediastinal, hilar or axillary lymphadenopathy. There is a moderate size hiatal hernia. Limited evaluation of the upper abdomen shows multiple hypodensities throughout the liver not fully evaluated on the study but statistically speaking are likely benign cysts or hemangiomas. There is a 1.1 cm simple cyst within the upper pole of the right kidney. Bone windows are unremarkable. IMPRESSION: ? 1. Constellation of findings as described above consistent with multifocal pneumonia, including a 3.6 x 2.4 cm cavitary mass seen within the subpleural region of the right upper lobe. Follow up until resolution is recommended. 2. Small bilateral pleural effusions. 3. Emphysema. 4. 2.3 cm right thyroid lobe nodule. Further evaluation with ultrasound is recommended. 5. Moderate size hiatal hernia. Requested By: EDEN ILN M.D. Dictated By: ?? SUSU FOWLER M.D. ??on May ??2014 10:06A This document has been electronically signed by: SUSU FOWLER M.D. on May ??2014 10:06A [id number] Procedure Note Provider, MD Herb - 12/03/2016 SUSU FOWLER M.D. FINAL REPORT ACC# Date Time Exam [id number] May 13, 2015 09:37:[id number] Chest with contrast EXAMINATION: CT of the chest with intravenous contrast HISTORY: Shortness of breath, pneumonia. TECHNIQUE: Transaxial computed tomographic images of the chest were obtained with intravenous contrast according to standard protocol. No immediate complications following intravenous contrast administration. FINDINGS: No CT for comparison. Left subclavian central line tip is within the right atrium. The thyroid is enlarged and heterogeneous consistent with multiple small nodules. A dominant nodule is seen within the right lobe measuring up to 2.3 cm. Further evaluation with ultrasound is recommended. The evaluation of the lung parenchyma is limited secondary to respiratory motion artifact. There is mild diffuse peribronchial wall thickening. There is centrilobular emphysema of the upper lungs. There is a 3.6 x 2.4 cm cavitary mass seen within the subpleural region of the right upper lobe. There is a 9 mm right upper lobe nodule seen on series 3, image 61. Additional smaller nodules are seen within the bilateral lungs. There is ground glass opacity with interlobular and intralobular septal thickening within the right upper lobe. Subtle ground glass opacity with tree-in-bud opacities noted within the left upper and lower lobes. There are small bilateral pleural effusions with compressive atelectasis. These findings are consistent with multifocal pneumonia in the proper clinical setting. The pericardium, heart and great vessels are normal. No mediastinal, hilar or axillary lymphadenopathy. There is a moderate size hiatal hernia. Limited evaluation of the upper abdomen shows multiple hypodensities throughout the liver not fully evaluated on the study but statistically speaking are likely benign cysts or hemangiomas. There is a 1.1 cm simple cyst within the upper pole of the right kidney. Bone windows are unremarkable. IMPRESSION: 1. Constellation of findings as described above consistent with multifocal pneumonia, including a 3.6 x 2.4 cm cavitary mass seen within the subpleural region of the right upper lobe. Follow up until resolution is recommended. 2. Small bilateral pleural effusions. 3. Emphysema. 4. 2.3 cm right thyroid lobe nodule. Further evaluation with ultrasound is recommended. 5. Moderate size hiatal hernia. Requested By: EDEN LIN M.D. Dictated By: SUSU FOWLER M.D. on May 13 2015 10:06A This document has been electronically signed by: SUSU FOWLER M.D. on May 13 2015 10:06A [id number] us Historical Provider IMG CT PROCEDURES Final R esult * Blood glucose, POC (05/13/2015 7:39 AM CDT) [facility] Glucose, POC, bld 94 70 - 199 mg/dl HISTORICAL RESULTS Blood specimen (specimen) 05/13/2015 7:39 AM CDT Mayte Roldan MD LAB BLOOD ORDER FANI Final Result HISTORICAL RESULTS * (ABNORMAL) Blood gas, arterial (05/13/2015 5:05 AM CDT) Ph, art 7.46(H) 7.35 - 7.45 HISTORICAL RESULTS PCO2 38 35 - 45 mm Hg HISTORICAL RESULTS PO2, art 54(L) 80 - 105 mm Hg HISTORICAL RESULTS CO2, calc, art 28 21 - 30 mmol/L HISTORICAL RESULTS A-a gradient Not Applicable mm Hg HI STORICAL RESULTS O2, inspired, %, art Not Applicable % HISTORICAL RESULTS Oxygen (O2), inspired fraction (FiO2) Not Applicable liters HISTORICAL RESULTS Arterial blood 05/13/2015 5: 05 AM CDT us Mayte Roldan MD LAB BLOOD ORDER FANI Final Result HISTORICAL RESULTS * All Microbiology Report Section (05/13/2015 12:00 AM CDT) 05/13/2015 Narrative HISTORICAL RESULTS - 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 [facility] ?[facility] [place] ?[place], [place] [address] ? Patient Name: ??ISAURAPHOEBE ZULETA ? Med Rec Number: [id number] ? Fin Number: ?[id number] ? Date: ?1940 ? Sex/Age: ? Female 74 years ? Admit Date: ?05/10/2015 ? Discharge Date: 05/18/2015 ? Doctor: ?Medicine , ? Facility: ?[facility] ? Location: ?OTHER ?* Abnormal ??A Alert ??f Footnote ??^ Corrected ??L Low ??H High ?i Interp Data ??@ Ref Lab ? Chart Type:Cumulative ?* * * * MICROBIOLOGY - ANTIGEN TESTING * * * * ?PROCEDURE: Histoplasma Antigen ? SOURCE: Urine ? COLLECTED: 05/13/15 ??2058 ?BODY SITE: ? STARTED: 05/13/15 ??2132 ? FREE TEXT SOURCE: ? DIRECT SPECIMEN EXAMINATION ? Direct Antigen Testing - Final ? REPORTED: 15 1824 ? Negative for: Histoplasma antigen Histoplasma Antigen Result: ? None detected. * ??* ??* ??* ??* Result Interpretation: Reference ? interval: None Detected Results reported as ng/mL in 0.4 - 19 ? ng/mL Results above the limit of detection but below 0.4 ng/mL ? are reported as 'Positive, Below the Limit of Quantification' ? Results above 19 ng/mL are reported as 'Positive, Above the ? Limit of Quantification' * ??* ??* ??* ??* ??* ??* ??* ??* ??* ??* ??* ??* ? * ??* ??* ??* ??* ??* ??* This test was developed and its performance ? characteristics determined by [employer]. ??It has not ? been cleared or approved by the FDA; however, FDA clearance or ? approval is not currently required for clinical use. The results ? are not intended to be used as the sole means for clinical ? diagnosis or patient management decisions. ?* * * ??Interpretive Results ??* * * ? (1)Testing Performed by: [employer], [place] ? [id number]. ? us Historical Provider MD LAB MICROBIOLOGY - GENERA L ORDERABLES Final Result HISTORICAL RESULTS * All Microbiology Report Section (05/13/2015 12:00 AM CDT) 05/13/2015 Narrative HISTORICAL RESULTS - 05/19/2015 10:03 AM CDT ? [facility] ?[facility] [place] ?[place] [address] ? Patient Name: ??PHOEBE HILLMAN ? Med Rec Number: [id number] ? Fin Number: ?[id number] ? Date: ?1940 ? Sex/Age: ? Female 74 years ? Admit Date: ?05/10/2015 ? Discharge Date: 05/18/2015 ? Doctor: ?Medicine , ? Facility: ?[facility] ? Location: ?OTHER ?* Abnormal ??A Alert ??f Footnote ??^ Corrected ??L Low ??H High ?i Interp Data ??@ Ref Lab ? Chart Type:Cumulative ?* * * * MICROBIOLOGY - ANTIGEN TESTING * * * * ?PROCEDURE: Cryptococcus Antigen ? SOURCE: Blood ? COLLECTED: 05/13/15 ??2257 ?BODY SITE: ? STARTED: 05/13/15 ??2349 ? FREE TEXT SOURCE: ? DIRECT SPECIMEN EXAMINATION ? Direct Antigen Testing - Final ? REPORTED: 05/14/15 1413 ? Negative for: Cryptococcus neoformans antigen. ? us Historical Provider MD LAB MICROBIOLOGY - GENERA L ORDERABLES Final Result HISTORICAL RESULTS * All Microbiology Report Section (05/13/2015 12:00 AM CDT) 05/13/2015 Narrative HISTORICAL RESULTS - 05/19/2015 10:03 AM CDT ? [facility] ?[facility] [place] ?[place], [place] [address] ? Patient Name: ??PHOEBE HILLMAN ? Med Rec Number: [id number] ? Fin Number: ?[id number] ? Date: ?1940 ? Sex/Age: ? Female 74 years ? Admit Date: ?05/10/2015 ? Discharge Date: 05/18/2015 ? Doctor: ?Medicine , ? Facility: ?[facility] ? Location: ?OTHER ?* Abnormal ??A Alert ??f Footnote ??^ Corrected ??L Low ??H High ?i Interp Data ??@ Ref Lab ? Chart Type:Cumulative ?* * * * MICROBIOLOGY - URINE * * * * ?PROCEDURE: Urine Culture ? SOURCE: Urine ? COLLECTED: 10/09/15 ??0939 ?BODY SITE: ? STARTED: 10/09/15 ??1117 ? FREE TEXT SOURCE: ? FINAL REPORT ? REPORTED: 05/15/15 1451 ? Greater than or equal to 50,000 colonies/ml of: Yeast ? ORDER COMMENTS ? (1)Received in transport media. ? us Historical Provider MD LAB MICROBIOLOGY - GENERA L ORDERABLES Final Result HISTORICAL RESULTS * All Microbiology Report Section (05/13/2015 12:00 AM CDT) 05/13/2015 Narrative HISTORICAL RESULTS - 05/19/2015 10:03 AM CDT ? [facility] ?[facility] [place] ?[place], [place] [address] ? Patient Name: ??PHOEBE HILLMAN ? Med Rec Number: [id number] ? Fin Number: ?[id number] ? Date: ?1940 ? Sex/Age: ? Female 74 years ? Admit Date: ?05/10/2015 ? Discharge Date: 05/18/2015 ? Doctor: ?Medicine , ? Facility: ?[facility] ? Location: ?OTHER ?* Abnormal ??A Alert ??f Footnote ??^ Corrected ??L Low ??H High ?i Interp Data ??@ Ref Lab ? Chart Type:Cumulative ?* * * * MICROBIOLOGY - BLOOD/STERILE FLUID * * * * ?PROCEDURE: Culture, Blood ? SOURCE: Blood ? COLLECTED: 05/13/15 ??1254 ?BODY SITE: Catheter ? STARTED: 05/13/15 ??1332 ? FREE TEXT SOURCE: ? DIRECT SPECIMEN EXAMINATION ? Rapid Molecular Analysis ? REPORTED: 05/15/15 0712 ? Staphylococcus species detected by the [employer] Blood Culture ? Nucleic Acid Test. This is most suggestive of a coagulase ? negative Staphylococcus species. Please refer to final ? culture-based result for confirmation. This test does not ? exclude the possibility of a mixed bacterial infection. ? FINAL REPORT ? REPORTED: 05/17/15 0819 ? Coagulase negative Staphylococcus species Isolate of ? questionable significance. ??If a similar isolate is recovered ? from a second blood culture collected within 3 days of this ? culture, both will be evaluated and, if determined to be related, ? antimicrobial susceptibility testing will be performed. ? Notification of: Gram Positive Cocci in clusters called to and ? read back by: Dr. Daly ([phone]) on 05/15/2015 4:22:17 ?* * * ??Interpretive Results ??* * * ? (1)Blood cultures are incubated for five days on a continuously ? monitored blood culture system. ??The first report of a negative ? culture is issued within 24 hours of receipt of the specimen in ? the laboratory. ??Positive culture results are reported as soon ? as they are detected. ??For blood cultures with gram-positive ? cocci, a rapid molecular test for organism identification may be ? performed using the [employer] Nanosphere Gram Positive Blood ? Culture Assay. ??The Nanosphere assay detects microbial DNA in ? positive blood culture broth via hybridization of target DNA to ? capture oligonucleotides on a microarray. ??This assay has been ? cleared by the [place] Food and Drug Administration and ? its performance characteristics have been verified by the ? [facility].Current ? Interpretive Data was last revised on 2013. ? 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 [facility] ?[facility] [place] ?[place], [place] [address] ? Patient Name: ??PHOEBE HILLMAN ? Med Rec Number: [id number] ? Fin Number: ?[id number] ? Date: ?1940 ? Sex/Age: ? Female 74 years ? Admit Date: ?05/10/2015 ? Discharge Date: 05/18/2015 ? Doctor: ?Medicine , ? Facility: ?[facility] ? Location: ?OTHER ?* Abnormal ??A Alert ??f Footnote ??^ Corrected ??L Low ??H High ?i Interp Data ??@ Ref Lab ? Chart Type:Cumulative ?* * * * MICROBIOLOGY - BLOOD/STERILE FLUID * * * * ?PROCEDURE: Culture, Blood ? SOURCE: Blood ? COLLECTED: 05/13/15 ??2058 ?BODY SITE: Peripheral ? STARTED: 05/13/15 ??2128 ? FREE TEXT SOURCE: ? FINAL REPORT ? REPORTED: 05/19/15 0623 ? No growth ? ORDER COMMENTS ? (1)Received only anaerobic blood culture bottle. ?* * * ??Interpretive Results ??* * * ? (1)Blood cultures are incubated for five days on a continuously ? monitored blood culture system. ??The first report of a negative ? culture is issued within 24 hours of receipt of the specimen in ? the laboratory. ??Positive culture results are reported as soon ? as they are detected. ??For blood cultures with gram-positive ? cocci, a rapid molecular test for organism identification may be ? performed using the [employer] Nanosphere Gram Positive Blood ? Culture Assay. ??The Nanosphere assay detects microbial DNA in ? positive blood culture broth via hybridization of target DNA to ? capture oligonucleotides on a microarray. ??This assay has been ? cleared by the [place] Food and Drug Administration and ? its performance characteristics have been verified by the ? [facility].Current ? Interpretive Data was last revised on 2013. ? Historical Provider LAB MICROBIOLOGY - GENERA L ORDERABLES Final Result Performing Organization Address [facility] de Phone Number HISTORICAL RESULTS * (ABNORMAL) Plasma basic metabolic panel (05/12/2015 9:46 PM CDT) Sodium 140 135 - 145 mmol/L HISTORICAL RESULTS K, pl 4.2 3.3 - 4.9 mmol/L HISTORICAL RESULTS Chloride 101 97 - 110 mmol/L HISTORICAL RESULTS CO2 28 22 - 32 mmol/L HISTORICAL RESULTS A. gap 11 0 - 16 mmol/L HISTORICAL RESULTS Glucose 112 70 - 199 mg/dl HISTORICAL RESULTS BUN 15 8 - 25 mg/dl HISTORICAL RESULTS Creatinine 0.44(L) 0.60 - 1.10 mg/dl HISTORICAL RESULTS Calcium 9.4 8.6 - 10.3 mg/dl HISTORICAL RESULTS Plasma 05/12/2015 9:46 PM CDT Historical Provider LAB BLOOD ORDERABLES Sandra l Result Performing Organization Address [facility] de Phone Number HISTORICAL RESULTS * Plasma phosphorus (05/12/2015 9:46 PM CDT) Phosphorus, pl 2.7 2.3 - 4.3 mg/dl HISTORICAL RESULTS Plasma 05/12/2015 9:46 PM CDT Historical Provider LAB BLOOD ORDERABLES Sandra l Result Performing Organization Address [facility] de Phone Number HISTORICAL RESULTS * Serum magnesium (05/12/2015 9:46 PM CDT) Magnesium 2.4 1.4 - 2.5 mg/dl HISTORICAL RESULTS Serum 05/12/2015 9:46 PM CDT Historical Provider LAB BLOOD ORDERABLES Sandra l Result HISTORICAL RESULTS * (ABNORMAL) Blood cell count [CBC] express (05/12/2015 9:46 PM CDT) WBC 17.6(H) 3.8 - 9.8 K/cumm HISTORICAL RESULTS RBC 3.92 3.90 - 5.00 M/cumm HISTORICAL RESULTS Hgb 11.7(L) 12.1 - 15.1 g/dl HISTORICAL RESULTS Hct 36.1 36.1 - 44.3 % HISTORICAL RESULTS MCV 92.1 80.0 - 97.6 fl HISTORICAL RESULTS MCH 30.0 26.7 - 33.7 pg HISTORICAL RESULTS MCHC 32.5(L) 32.7 - 35.5 g/dl HISTORICAL RESULTS Rdw 14.7(H) 11.8 - 14.6 % HISTORICAL RESULTS Platelets 228 140 - 440 K/cumm HISTORICAL RESULTS MPV 8.2 6.8 - 10.4 fl HISTORICAL RESULTS Blood specimen (specimen) 05/12/2015 9:46 PM CDT Historical Provider LAB BLOOD ORDERABLES Sandra l Result Performing Organization Address [facility] Co de Phone Number HISTORICAL RESULTS * Blood glucose, POC (05/12/2015 8:06 PM CDT) Glucose, POC, bld 146 70 - 199 mg/dl HISTORICAL RESULTS Blood specimen (specimen) 05/12/2015 8:06 PM CDT Mayte Roldan MD LAB BLOOD ORDER FANI Final Result HISTORICAL RESULTS * Blood glucose, POC (05/12/2015 5:01 PM CDT) Glucose, POC, bld 147 70 - 199 mg/dl HISTORICAL RESULTS Blood specimen (specimen) 05/12/2015 5:01 PM CDT Mayte Roldan MD LAB BLOOD ORDER FANI Final Result HISTORICAL RESULTS * XR Chest 1 View (05/12/2015 2:08 PM CDT) Anatomical Region Laterality Modality Body, Chest N/A Radiographic Cesia ging 05/12/2015 2:08 PM CDT Narrative 05/12/2015 7:49 PM CDT VEE VIEIRA M.D. MELLY WALLACE M.D. FINAL REPORT The radiology attending physician has personally reviewed this study, and has reviewed and/or edited this written report and agrees with it. ACC# ??Date Time ??Exam [id number] May 12, 2015 14:08:00 [id number] Chest 1 view Frontal EXAMINATION: ?? CHEST ONE VIEW IMPRESSION: ?? Comparison made to prior examination dated 05/11/2015. Left upper extremity peripherally inserted central venous catheter terminates in the superior vena cava. Small lung volumes. New opacity in the left upper lobe represent atelectasis or pneumonia. Unchanged left lower lobe collapse. Unchanged small left pleural effusion. Unchanged small right pleural effusion. Cardiomediastinal contours are stable. No pneumothorax. Requested By: EDEN LIN M.D. Dictated By: ?? MELLY WALLACE M.D. ??on May ??2014 ??5:22P This document has been electronically signed by: VEE VIEIRA M.D. on May ??2014 ??7:49P [id number] Procedure Note Provider, MD Herb - 12/03/2016 VEE VIEIRA M.D. MELLY WALLACE M.D. FINAL REPORT The radiology attending physician has personally reviewed this study, and has reviewed and/or edited this written report and agrees with it. ACC# Date Time Exam [id number] May 12, 2015 14:08:00 [id number] Chest 1 view Frontal EXAMINATION: CHEST ONE VIEW IMPRESSION: Comparison made to prior examination dated 05/11/2015. Left upper extremity peripherally inserted central venous catheter terminates in the superior vena cava. Small lung volumes. New opacity in the left upper lobe represent atelectasis or pneumonia. Unchanged left lower lobe collapse. Unchanged small left pleural effusion. Unchanged small right pleural effusion. Cardiomediastinal contours are stable. No pneumothorax. Requested By: EDEN LIN M.D. Dictated By: MELLY WALLACE M.D. on May 12 2015 5:22P This document has been electronically signed by: VEE VIEIRA M.D. on May 12 2015 7:49P [id number] Historical Provider IMG XR PROCEDURES Final R esult * Blood glucose, POC (05/12/2015 12:35 PM CDT) Glucose, POC, bld 133 70 - 199 mg/dl HISTORICAL RESULTS Blood specimen (specimen) 05/12/2015 12:35 PM CDT Jamal Adams MD PhD LAB BLOOD ORDERABLES Final Result Performing Organization Address [facility] de Phone Number HISTORICAL RESULTS * Blood glucose, POC (05/12/2015 8:03 AM CDT) Glucose, POC, bld 89 70 - 199 mg/dl HISTORICAL RESULTS Blood specimen (specimen) 05/12/2015 8:03 AM CDT Jamal Adams MD PhD LAB BLOOD ORDERABLES Final Result Performing Organization Address [facility] de Phone Number HISTORICAL RESULTS * (ABNORMAL) Blood gas, arterial (05/12/2015 6:06 AM CDT) Ph, art 7.49(H) 7.35 - 7.45 HISTORICAL RESULTS PCO2 40 35 - 45 mm Hg HISTORICAL RESULTS PO2, art 96 80 - 105 mm Hg HISTORICAL RESULTS CO2, calc, art 32(H) 21 - 30 mmol/L HISTORICAL RESULTS A-a gradient Not Applicable mm Hg HI STORICAL RESULTS O2, inspired, %, art Not Applicable % HISTORICAL RESULTS Oxygen (O2), inspired fraction (FiO2) Not Applicable liters HISTORICAL RESULTS Arterial blood 05/12/2015 6: 06 AM CDT Historical Provider LAB BLOOD ORDERABLES Sandra gu Result Performing Organization Address [facility] de Phone Number HISTORICAL RESULTS * Blood glucose, POC (05/12/2015 3:57 AM CDT) Glucose, POC, bld 100 70 - 199 mg/dl HISTORICAL RESULTS Blood specimen (specimen) 05/12/2015 3:57 AM CDT Jamal Adams MD PhD LAB BLOOD ORDERABLES Final Result Performing Organization Address [facility] de Phone Number HISTORICAL RESULTS * (ABNORMAL) Blood gas, arterial (05/12/2015 12:25 AM CDT) Ph, art 7.49(H) 7.35 - 7.45 HISTORICAL RESULTS PCO2 43 35 - 45 mm Hg HISTORICAL RESULTS PO2, art 70(L) 80 - 105 mm Hg HISTORICAL RESULTS CO2, calc, art 33(H) 21 - 30 mmol/L HISTORICAL RESULTS A-a gradient Not Applicable mm Hg HI STORICAL RESULTS O2, inspired, %, art Not Applicable % HISTORICAL RESULTS Oxygen (O2), inspired fraction (FiO2) Not Applicable liters HISTORICAL RESULTS Arterial blood 05/12/2015 12 :25 AM CDT Historical Provider LAB BLOOD ORDERABLES Sandra l Result Performing Organization Address [facility] de Phone Number HISTORICAL RESULTS * Blood glucose, POC (05/12/2015 12:23 AM CDT) Glucose, POC, bld 92 70 - 199 mg/dl HISTORICAL RESULTS Blood specimen (specimen) 05/12/2015 12:23 AM CDT Jamal Adams MD PhD LAB BLOOD ORDERABLES Final Result Performing Organization Address [facility] de Phone Number HISTORICAL RESULTS * (ABNORMAL) Plasma basic metabolic panel (05/12/2015 12:04 AM CDT) Sodium 142 135 - 145 mmol/L HISTORICAL RESULTS K, pl 3.1(L) 3.3 - 4.9 mmol/L HISTORICAL RESULTS Chloride 100 97 - 110 mmol/L HISTORICAL RESULTS CO2 34(H) 22 - 32 mmol/L HISTORICAL RESULTS A. gap 8 0 - 16 mmol/L HISTORICAL RESULTS Glucose 95 70 - 199 mg/dl HISTORICAL RESULTS BUN 15 8 - 25 mg/dl HISTORICAL RESULTS Creatinine 0.41(L) 0.60 - 1.10 mg/dl HISTORICAL RESULTS Calcium 8.9 8.6 - 10.3 mg/dl HISTORICAL RESULTS Plasma 05/12/2015 12:0 4 AM CDT Result [facility] Historical Provider LAB BLOOD ORDERABLES Sandra l Result Performing Organization Address [facility] de Phone Number HISTORICAL RESULTS * (ABNORMAL) Plasma phosphorus (05/12/2015 12:04 AM CDT) Phosphorus, pl 2.2(L) 2.3 - 4.3 mg/dl HISTORICAL RESULTS Plasma 05/12/2015 12:0 4 AM CDT Result [facility] Historical Provider LAB BLOOD ORDERABLES Sandra l Result Performing Organization Address [facility] de Phone Number HISTORICAL RESULTS * Serum magnesium (05/12/2015 12:04 AM CDT) Magnesium 2.4 1.4 - 2.5 mg/dl HISTORICAL RESULTS Serum 05/12/2015 12:0 4 AM CDT Result [facility] Historical Provider LAB BLOOD ORDERABLES Sandra l Result Performing Organization Address [facility] de Phone Number HISTORICAL RESULTS * (ABNORMAL) Blood cell count (CBC) (05/12/2015 12:04 AM CDT) Pathologist [facility] [place] Hct 34.1(L) 36.1 - 44.3 % HISTORICAL RESULTS WBC 17.5(H) 3.8 - 9.8 K/cumm HISTORICAL RESULTS MCV 91.9 80.0 - 97.6 fl HISTORICAL RESULTS RBC 3.71(L) 3.90 - 5.00 M/cumm HISTORICAL RESULTS MCH 29.8 26.7 - 33.7 pg HISTORICAL RESULTS Hgb 11.0(L) 12.1 - 15.1 g/dl HISTORICAL RESULTS MCHC 32.4(L) 32.7 - 35.5 g/dl HISTORICAL RESULTS Rdw 14.1 11.8 - 14.6 % HISTORICAL RESULTS Platelets 220 140 - 440 K/cumm HISTORICAL RESULTS MPV 8.0 6.8 - 10.4 fl HISTORICAL RESULTS Neutrophils 74.0 38.7 - 74.5 % HISTORICAL RESULTS Lymphocytes 17.2(L) 20.0 - 54.3 % HISTORICAL RESULTS Monos 7.2 4.3 - 13.5 % HISTORICAL RESULTS Eosinophils 1.4 0.0 - 6.0 % HISTORICAL RESULTS Basophils 0.2 0.0 - 3.0 % HISTORICAL RESULTS Neutrophils, abs 12.9(H) 1.8 - 6.6 K/cumm HISTORICAL RESULTS Lymphocytes, abs 3.0 1.2 - 3.3 K/cumm HISTORICAL RESULTS Monocytes, absolute 1.3(H) 0.2 - 1.2 K/cumm HISTORICAL RESULTS Eosinophils, abs 0.3 0.0 - 0.5 K/cumm HISTORICAL RESULTS Basophils, abs 0.0 0.0 - 0.2 K/cumm HISTORICAL RESULTS Blood specimen (specimen) 05/12/2015 12:04 AM CDT us Historical Provider LAB BLOOD ORDERABLES Sandra l Result HISTORICAL RESULTS * Blood glucose, POC (05/11/2015 7:53 PM CDT) Pathologist [facility] [place] Glucose, POC, bld 136 70 - 199 mg/dl HISTORICAL RESULTS Blood specimen (specimen) 05/11/2015 7:53 PM CDT Jamal Adams MD PhD LAB BLOOD ORDERABLES Final Result HISTORICAL RESULTS * Blood glucose, POC (05/11/2015 4:24 PM CDT) Glucose, POC, bld 141 70 - 199 mg/dl HISTORICAL RESULTS Blood specimen (specimen) 05/11/2015 4:24 PM CDT Jamal Adams MD PhD LAB BLOOD ORDERABLES Final Result Performing Organization Address [facility] Co de Phone Number HISTORICAL RESULTS * XR Chest 1 View (05/11/2015 12:42 PM CDT) Anatomical Region Laterality Modality Body, Chest N/A Radiographic Cesia ging 05/11/2015 12:4 2 PM CDT Narrative 05/11/2015 1:43 PM CDT VEE VIEIRA M.D. JAZIEL MOON M.D. FINAL REPORT The radiology attending physician has personally reviewed this study, and has reviewed and/or edited this written report and agrees with it. ACC# ??Date Time ??Exam [id number] May 11, 2015 12:42:00 [id number] Chest 1 view Frontal ACC# ??Date Time ??Exam [id number] May 11, 2015 12:42:00 [id number] Chest 1 view Frontal EXAMINATION: ?CHEST 1 VIEW ?? IMPRESSION: ?? A portable AP view of the chest was obtained. Comparison is made to the chest radiograph dated 05/10/2015 at 21:07. The right thoracostomy tube has been removed. The left arm peripherally inserted central venous catheter is unchanged, terminating in the right atrium. There are small bilateral pleural effusions, probably not substantially changed from before. There is unchanged mild right basilar atelectasis. There is unchanged left lower lobe collapse. There is no edema. There is no pneumothorax. The cardiomediastinal silhouette is normal. ?? Requested By: MARCUS MENSAH M.D. Dictated By: ?? AJZIEL MOON M.D. ??on May ??2014 ??1:40P This document has been electronically signed by: VEE VIEIRA M.D. on May ??2014 ??1:43P [id number] Procedure Note Provider, Herb, - 12/03/2016 VEE VIEIRA M.D. JAZIEL MOON M.D. FINAL REPORT The radiology attending physician has personally reviewed this study, and has reviewed and/or edited this written report and agrees with it. ACC# Date Time Exam [id number] May 11, 2015 12:42:00 [id number] Chest 1 view Frontal ACC# Date Time Exam [id number] May 11, 2015 12:42:00 [id number] Chest 1 view Frontal EXAMINATION: CHEST 1 VIEW IMPRESSION: A portable AP view of the chest was obtained. Comparison is made to the chest radiograph dated 05/10/2015 at 21:07. The right thoracostomy tube has been removed. The left arm peripherally inserted central venous catheter is unchanged, terminating in the right atrium. There are small bilateral pleural effusions, probably not substantially changed from before. There is unchanged mild right basilar atelectasis. There is unchanged left lower lobe collapse. There is no edema. There is no pneumothorax. The cardiomediastinal silhouette is normal. Requested By: MARCUS MENSAH M.D. Dictated By: JAZIEL MOON M.D. on May 11 2015 1:40P This document has been electronically signed by: VEE VIEIRA M.D. on May 11 2015 1:43P [id number] Historical Provider IMG XR PROCEDURES Final R esult * Blood glucose, POC (05/11/2015 12:09 PM CDT) Glucose, POC, bld 116 70 - 199 mg/dl HISTORICAL RESULTS Blood specimen (specimen) 05/11/2015 12:09 PM CDT Jamal Adams MD PhD LAB BLOOD ORDERABLES Final Result HISTORICAL RESULTS * Blood glucose, POC (05/11/2015 8:11 AM CDT) Glucose, POC, bld 90 70 - 199 mg/dl HISTORICAL RESULTS Blood specimen (specimen) 05/11/2015 8:11 AM CDT Jamal Adams MD PhD LAB BLOOD ORDERABLES Final Result Performing Organization Address [facility] Phone Number HISTORICAL RESULTS * Blood glucose, POC (05/11/2015 3:47 AM CDT) Glucose, POC, bld 96 70 - 199 mg/dl HISTORICAL RESULTS Blood specimen (specimen) 05/11/2015 3:47 AM CDT Jamal Adams MD PhD LAB BLOOD ORDERABLES Final Result Performing Organization Address [facility] Phone Number HISTORICAL RESULTS * Blood glucose, POC (05/11/2015 12:03 AM CDT) Glucose, POC, bld 118 70 - 199 mg/dl HISTORICAL RESULTS Blood specimen (specimen) 05/11/2015 12:03 AM CDT Jamal Adams MD PhD LAB BLOOD ORDERABLES Final Result Performing Organization Address [facility] Phone Number HISTORICAL RESULTS * (ABNORMAL) Plasma basic metabolic panel (05/10/2015 11:44 PM CDT) Pathologist [facility] [place] Sodium 145 135 - 145 mmol/L HISTORICAL RESULTS K, pl 3.3 3.3 - 4.9 mmol/L HISTORICAL RESULTS Chloride 105 97 - 110 mmol/L HISTORICAL RESULTS CO2 34(H) 22 - 32 mmol/L HISTORICAL RESULTS A. gap 6 0 - 16 mmol/L HISTORICAL RESULTS Glucose 122 70 - 199 mg/dl HISTORICAL RESULTS BUN 26(H) 8 - 25 mg/dl HISTORICAL RESULTS Creatinine 0.47(L) 0.60 - 1.10 mg/dl HISTORICAL RESULTS Calcium 8.4(L) 8.6 - 10.3 mg/dl HISTORICAL RESULTS Plasma 05/10/2015 11:4 4 PM CDT Akash Chicas MD LAB BLOOD ORDERABLES Final Result HISTORICAL RESULTS * Serum magnesium (05/10/2015 11:44 PM CDT) Pathologist [facility] [place] Magnesium 2.4 1.4 - 2.5 mg/dl HISTORICAL RESULTS Serum 05/10/2015 11:4 4 PM CDT Akash Chicas MD LAB BLOOD ORDERABLES Final Result Performing Organization Address [facility]/ZIP Co de Phone Number HISTORICAL RESULTS * (ABNORMAL) Blood cell count (CBC) (05/10/2015 11:44 PM CDT) WBC 13.6(H) 3.8 - 9.8 K/cumm HISTORICAL RESULTS RBC 3.38(L) 3.90 - 5.00 M/cumm HISTORICAL RESULTS Hgb 10.1(L) 12.1 - 15.1 g/dl HISTORICAL RESULTS Hct 31.1(L) 36.1 - 44.3 % HISTORICAL RESULTS MCV 91.9 80.0 - 97.6 fl HISTORICAL RESULTS MCH 29.8 26.7 - 33.7 pg HISTORICAL RESULTS MCHC 32.4(L) 32.7 - 35.5 g/dl HISTORICAL RESULTS Rdw 14.3 11.8 - 14.6 % HISTORICAL RESULTS Platelets 214 140 - 440 K/cumm HISTORICAL RESULTS MPV 7.9 6.8 - 10.4 fl HISTORICAL RESULTS Neutrophils 78.8(H) 38.7 - 74.5 % HISTORICAL RESULTS Lymphocytes 12.8(L) 20.0 - 54.3 % HISTORICAL RESULTS Monos 7.2 4.3 - 13.5 % HISTORICAL RESULTS Eosinophils 1.1 0.0 - 6.0 % HISTORICAL RESULTS Basophils 0.1 0.0 - 3.0 % HISTORICAL RESULTS Neutrophils, abs 10.7(H) 1.8 - 6.6 K/cumm HISTORICAL RESULTS Lymphocytes, abs 1.7 1.2 - 3.3 K/cumm HISTORICAL RESULTS Monocytes, absolute 1.0 0.2 - 1.2 K/cumm HISTORICAL RESULTS Eosinophils, abs 0.2 0.0 - 0.5 K/cumm HISTORICAL RESULTS Basophils, abs 0.0 0.0 - 0.2 K/cumm HISTORICAL RESULTS Blood specimen (specimen) 05/10/2015 11:44 PM CDT Akash Chicas MD LAB BLOOD ORDERABLES Final Result Performing Organization Address [facility] de Phone Number HISTORICAL RESULTS * (ABNORMAL) Blood gas, arterial (05/10/2015 11:44 PM CDT) Ph, art 7.45 7.35 - 7.45 HISTORICAL RESULTS PCO2 47(H) 35 - 45 mm Hg HISTORICAL RESULTS PO2, art 92 80 - 105 mm Hg HISTORICAL RESULTS CO2, calc, art 34(H) 21 - 30 mmol/L HISTORICAL RESULTS A-a gradient Not Applicable mm Hg HI STORICAL RESULTS O2, inspired, %, art Not Applicable % HISTORICAL RESULTS Oxygen (O2), inspired fraction (FiO2) Not Applicable liters HISTORICAL RESULTS Arterial blood 05/10/2015 11 :44 PM CDT Akash Chicas MD LAB BLOOD ORDERABLES Final Result Performing Organization Address [facility] de Phone Number HISTORICAL RESULTS * XR Chest 1 View (05/10/2015 10:11 PM CDT) Anatomical Region Laterality Modality Body, Chest N/A Radiographic Cesia ging 05/10/2015 10:1 1 PM CDT Narrative 05/11/2015 9:57 AM CDT JANICE REILLY M.D. FINAL REPORT ACC# ??Date Time ??Exam [id number] May 10, 2015 22:11:00 [id number] Chest 1 view Frontal EXAMINATION: ?? CHEST 1 VIEW IMPRESSION: ?? Comparison is made to 05/10/2015. The nasogastric tube has been removed. Again noted is a right thoracostomy tube with the tip crossing the midline and terminating near the superior aspect of the aortic knob. The exact location of this chest cannot be definitely determined on this single view examination. The endotracheal tube has also been removed. The cardiac silhouette is stable in size and contour. There is a small pleural effusion on the left with left basilar atelectasis. Very subtle interstitial opacities could represent an element of very mild interstitial edema. No definite pneumothorax is identified. Requested By: ANETTE LAYNE M.D. Dictated By: ?? JANICE REILLY M.D. ??on May ??2014 ??9:57A This document has been electronically signed by: JANICE REILLY M.D. on May ??2014 ??9:57A [id number] Procedure Note Provider, Herb, - 12/03/2016 JANICE REILLY M.D. FINAL REPORT ACC# Date Time Exam [id number] May 10, 2015 22:11:00 [id number] Chest 1 view Frontal EXAMINATION: CHEST 1 VIEW IMPRESSION: Comparison is made to 05/10/2015. The nasogastric tube has been removed. Again noted is a right thoracostomy tube with the tip crossing the midline and terminating near the superior aspect of the aortic knob. The exact location of this chest cannot be definitely determined on this single view examination. The endotracheal tube has also been removed. The cardiac silhouette is stable in size and contour. There is a small pleural effusion on the left with left basilar atelectasis. Very subtle interstitial opacities could represent an element of very mild interstitial edema. No definite pneumothorax is identified. Requested By: ANETTE LAYNE M.D. Dictated By: JANICE REILLY M.D. on May 11 2015 9:57A This document has been electronically signed by: JANICE REILLY M.D. on May 11 2015 9:57A [id number] Historical Provider IMG XR PROCEDURES Final R esult * Blood glucose, POC (05/10/2015 7:37 PM CDT) Glucose, POC, bld 150 70 - 199 mg/dl HISTORICAL RESULTS Blood specimen (specimen) 05/10/2015 7:37 PM CDT Jamal Adams MD PhD LAB BLOOD ORDERABLES Final Result Performing Organization Address [facility] de Phone Number HISTORICAL RESULTS * Blood glucose, POC (05/10/2015 3:46 PM CDT) Glucose, POC, bld 156 70 - 199 mg/dl HISTORICAL RESULTS Blood specimen (specimen) 05/10/2015 3:46 PM CDT Jamal Adams MD PhD LAB BLOOD ORDERABLES Final Result Performing Organization Address [facility] de Phone Number HISTORICAL RESULTS * Blood glucose, POC (05/10/2015 11:43 AM CDT) Glucose, POC, bld 119 70 - 199 mg/dl HISTORICAL RESULTS Blood specimen (specimen) 05/10/2015 11:43 AM CDT Result [facility] Jamal Adams MD PhD LAB BLOOD ORDERABLES Final Result Performing Organization Address [facility] de Phone Number HISTORICAL RESULTS * (ABNORMAL) Plasma partial thromboplastin time (PTT) (05/10/2015 8:54 AM CDT) APTT 16.6(L) 25.0 - 37.0 seconds HISTORICAL RESULTS Comment: {No clot detected in sample.} Interpretive Data Therapeutic heparin range:60.0 - 94.0 sec based on correlation with therapeutic heparin activity range of 0.3 -0.7 Units/mL. Current interpretive data was last revised on 2011. Plasma 05/10/2015 8:54 AM CDT Linda Kohli MD LAB BLOOD ORDERABLES Sandra l Result Performing Organization Address [facility] de Phone Number HISTORICAL RESULTS * Plasma prothrombin time (PT) (05/10/2015 8:54 AM CDT) Prothrombin time (PT) 12.9 9.2 - 13.0 seconds HISTORICAL RESULTS INR 1.19 0.90 - 1.20 HISTORIC AL RESULTS Comment: Interpretive Data Inpatient therapeutic ranges* Atrial fibrillation ?2.0-3.0 INR Venous thrombo-embolism ?2.0-3.0 INR Bioprosthetic heart valve ?* Mechanical heart valve, bileaflet or tilting disk,aortic position ? 2.0-3.0 INR All other,or bileaflet or tilting disk, in mitral position ? 2.5-3.5 INR *See the pharmacy resource directory (PHRED) for an updated copy of the Tool Book at [email or web address] Current Interpretive Data was last revised 2011. Plasma 05/10/2015 8:54 AM CDT Linda Kohli MD LAB BLOOD ORDERABLES Sandra l Result Performing Organization Address [facility] Phone Number HISTORICAL RESULTS * Urinalysis (05/10/2015 8:54 AM CDT) Color, ur Yellow Yellow HISTORICAL RESULTS Clarity, ur Clear Clear HISTORIC AL RESULTS Specific gravity, ur 1.014 1.003 - 1.030 HISTORICAL RESULTS pH, ur 7.0 5.0 - 8.0 HISTORICAL RESULTS Protein, ur Negative Trace HISTORIC AL RESULTS Glucose, ur Negative Negative HISTORIC AL RESULTS Ketones, ur Negative Negative HISTORIC AL RESULTS Bilirubin, ur Negative Negative HISTOR ICAL RESULTS U Blood Negative Negative HISTORICAL RESULTS Urobilinogen, quant, ur <2.0 0.0 - 2.0 mg/dl HISTORICAL RESULTS Nitrites, ur Negative Negative HISTORI JEB RESULTS Leukocyte esterase, ur Negative Negative HISTORICAL RESULTS Urine 05/10/2015 8:54 AM CDT Linda Kohli MD LAB BLOOD ORDERABLES Sandra l Result Performing Organization Address [facility] de Phone Number HISTORICAL RESULTS * Blood glucose, POC (05/10/2015 7:31 AM CDT) Glucose, POC, bld 133 70 - 199 mg/dl HISTORICAL RESULTS Blood specimen (specimen) 05/10/2015 7:31 AM CDT Jamal Adams MD PhD LAB BLOOD ORDERABLES Final Result Performing Organization Address [facility] de Phone Number HISTORICAL RESULTS * Serum vancomycin drug level (05/10/2015 6:08 AM CDT) Vancomycin <3.0 mcg/ml HISTORICA L RESULTS Comment:{Repeated and verifi ed.} Serum 05/10/2015 6:08 AM CDT Linda Kohli MD LAB BLOOD ORDERABLES Sandra l Result Performing Organization Address [facility] de Phone Number HISTORICAL RESULTS * Serum troponin I (05/10/2015 6:08 AM CDT) Troponin I <0.03 0.00 - 0.03 ng/ml HISTORICAL RESULTS Comment: Interpretive Data Serial determinations are recommended for the diagnosis of myocardial infarction (Third Flanagan Definition of Myocardial Infarction. ??J Am Placido Cardiol 2012;60:1581-98). Current interpretive data was last revised on 13. Serum 05/10/2015 6:08 AM CDT Linda Kohli MD LAB BLOOD ORDERABLES Sandra l Result Performing Organization Address [facility] de Phone Number HISTORICAL RESULTS * (ABNORMAL) Blood hemoglobin A1C (05/10/2015 6:08 AM CDT) Hgb A1C 6.2(H) 4.0 - 6.0 % HISTORICAL RESULTS Estimated average glucose 131 mg/dl HISTORICAL RESULTS Comment: The ADA recommends reporting an estimated Average Glucose (eAG) with all Hemoglobin A1c results using the equation derived from a study of 507 normal and diabetic adults. ??Minority populations were underrepresented and children were not included. ??(Diabetes Care 31:5969-9800, 2008). ??The eAG is not equivalent to a fasting glucose. Blood specimen (specimen) 05/10/2015 6:08 AM CDT [facility] Provider LAB BLOOD ORDERABLES Sandra l Result Performing Organization Address [facility] de Phone Number HISTORICAL RESULTS * Blood lactic acid (05/10/2015 6:08 AM CDT) Lactic acid 1.2 0.7 - 2.1 mmol/L HISTORICAL RESULTS Blood specimen (specimen) 05/10/2015 6:08 AM CDT Linda Kohli MD LAB BLOOD ORDERABLES Sandra l Result Performing Organization Address [facility] de Phone Number HISTORICAL RESULTS * (ABNORMAL) Plasma hepatic function panel (05/10/2015 6:08 AM CDT) Protein, pl 6.1(L) 6.5 - 8.5 g/dl HISTORICAL RESULTS Alb 4.4 3.6 - 5.0 g/dl HISTORICAL RESULTS Bilirubin 0.8 0.3 - 1.1 mg/dl HISTORICAL RESULTS Bilirubin, direct 0.3 0.0 - 0.3 mg/dl HISTORICAL RESULTS Alk phos 43 38 - 126 Units/L HISTORICAL RESULTS AST 13 11 - 47 Units/L HISTORICAL RESULTS ALT 53 7 - 53 Units/L HISTORICAL RESULTS Plasma 05/10/2015 6:08 AM CDT Linda Kohli MD LAB BLOOD ORDERABLES Sandra l Result Performing Organization Address [facility] de Phone Number HISTORICAL RESULTS * (ABNORMAL) Blood gas, arterial (05/10/2015 6:08 AM CDT) Ph, art 7.46(H) 7.35 - 7.45 HISTORICAL RESULTS PCO2 44 35 - 45 mm Hg HISTORICAL RESULTS PO2, art 133(H) 80 - 105 mm Hg HISTORICAL RESULTS CO2, calc, art 32(H) 21 - 30 mmol/L HISTORICAL RESULTS A-a gradient Not Applicable mm Hg HI STORICAL RESULTS O2, inspired, %, art Not Applicable % HISTORICAL RESULTS Oxygen (O2), inspired fraction (FiO2) Not Applicable liters HISTORICAL RESULTS Arterial blood 05/10/2015 6: 08 AM CDT us Linda Kohli MD LAB BLOOD ORDERABLES Sandra riccardo Result HISTORICAL RESULTS * (ABNORMAL) Serum lipid panel (05/10/2015 6:08 AM CDT) Cholesterol 164 0 - 200 mg/dl HISTORICAL RESULTS Comment: Interpretive Data Desirable: ?<200 mg/dL Borderline high: ??200-239 mg/dL High: ? >240 mg/dL Literature Reference: National Cholesterol Education Program (NCEP) Expert Panel on Detection, Evaluation, and Treatment of High Blood Cholesterol in Adults (Adult Treatment Panel III). ??Circulation 2004; 110:227. Current interpretive data was last revised on 2005. Triglycerides 176(H) 0 - 150 mg/dl HISTORICAL RESULTS Comment: Interpretive Data Desirable: ? < 150 mg/dL Borderline High: ? 150 - 199 mg/dL High: ?> 200 mg/dL Literature Reference: See Cholesterol Current interpretive data was last revised on 07. HDL 32(L) 40 - 199 mg/dl HISTORICAL RESULTS Comment: Interpretive Data Less than 40 mg/dL - low; A major risk factor for heart disease. Greater than or equal to 60 mg/dL - High; ??considered protective of heart disease. Literature Reference: See Cholesterol Current interpretive data was last revised on 2008. LDL 97 0 - 129 mg/dl HISTORICAL RESULTS Comment: Interpretive Data Optimal: ? < 100 mg/dL Near Optimal: ?100 - 129 mg/dL Borderline High: ?? 130 - 159 mg/dL High: ?> 160 mg/dL Literature Reference: See Cholesterol Current interpretive data was last revised on 07. Non-HDL cholesterol, calculated 132 mg/dl HISTORICAL RESULTS Comment: Interpretive Data When triglycerides are >200 mg/dL, non-HDL C is a secondary target of therapy, with a goal 30 mg/dL higher than the identified LDL-C goal. Reference: ??See Cholesterol Reference. Current interpretive data was last revised 2012. Serum 05/10/2015 6:08 AM CDT Linda Kohli MD LAB BLOOD ORDERABLES Sandra l Result Performing Organization Address [facility] de Phone Number HISTORICAL RESULTS * (ABNORMAL) Plasma basic metabolic panel (05/10/2015 6:08 AM CDT) Sodium 143 135 - 145 mmol/L HISTORICAL RESULTS K, pl 3.8 3.3 - 4.9 mmol/L HISTORICAL RESULTS Chloride 101 97 - 110 mmol/L HISTORICAL RESULTS CO2 35(H) 22 - 32 mmol/L HISTORICAL RESULTS A. gap 7 0 - 16 mmol/L HISTORICAL RESULTS Glucose 153 70 - 199 mg/dl HISTORICAL RESULTS BUN 30(H) 8 - 25 mg/dl HISTORICAL RESULTS Creatinine 0.51(L) 0.60 - 1.10 mg/dl HISTORICAL RESULTS Calcium 9.4 8.6 - 10.3 mg/dl HISTORICAL RESULTS Plasma 05/10/2015 6:08 AM CDT Linda Kohli MD LAB BLOOD ORDERABLES Sandra l Result Performing Organization Address [facility] de Phone Number HISTORICAL RESULTS * (ABNORMAL) Blood cell count (CBC) (05/10/2015 6:08 AM CDT) WBC 11.1(H) 3.8 - 9.8 K/cumm HISTORICAL RESULTS RBC 3.72(L) 3.90 - 5.00 M/cumm HISTORICAL RESULTS Hgb 10.9(L) 12.1 - 15.1 g/dl HISTORICAL RESULTS Hct 34.2(L) 36.1 - 44.3 % HISTORICAL RESULTS MCV 91.9 80.0 - 97.6 fl HISTORICAL RESULTS MCH 29.2 26.7 - 33.7 pg HISTORICAL RESULTS MCHC 31.8(L) 32.7 - 35.5 g/dl HISTORICAL RESULTS Rdw 14.4 11.8 - 14.6 % HISTORICAL RESULTS Platelets 222 140 - 440 K/cumm HISTORICAL RESULTS MPV 8.6 6.8 - 10.4 fl HISTORICAL RESULTS Neutrophils 89.5(H) 38.7 - 74.5 % HISTORICAL RESULTS Lymphocytes 6.8(L) 20.0 - 54.3 % HISTORICAL RESULTS Monos 3.6(L) 4.3 - 13.5 % HISTORICAL RESULTS Eosinophils 0.0 0.0 - 6.0 % HISTORICAL RESULTS Basophils 0.1 0.0 - 3.0 % HISTORICAL RESULTS Neutrophils, abs 10.0(H) 1.8 - 6.6 K/cumm HISTORICAL RESULTS Lymphocytes, abs 0.8(L) 1.2 - 3.3 K/cumm HISTORICAL RESULTS Monocytes, absolute 0.4 0.2 - 1.2 K/cumm HISTORICAL RESULTS Eosinophils, abs 0.0 0.0 - 0.5 K/cumm HISTORICAL RESULTS Basophils, abs 0.0 0.0 - 0.2 K/cumm HISTORICAL RESULTS Blood specimen (specimen) 05/10/2015 6:08 AM CDT Linda Kohli MD LAB BLOOD ORDERABLES Sandra l Result HISTORICAL RESULTS * Respiratory Pathogen Multiplex PCR (05/10/2015 6:08 AM CDT) Nasopharyngeal (Unknown) 05/10/2015 6:08 AM CDT 05/10/2015 8:43 AM CDT Impressions HISTORICAL RESULTS - 05/10/2015 10:42 AM CDT The [employer] (formerly known as [employer]) FilmArray Respiratory Panel (RP) assay is a multiplexed nucleic acid test capable of simultaneous qualitative detection and identification of multiple respiratory viral and bacterial nucleic acids. ??The following bacteria, viruses and virus subtypes can be identified using the FilmArray RP assay: Bordetella pertussis, Chlamydophila pneumoniae, Mycoplasma pneumoniae, Adenovirus, Coronavirus HKU1, Coronavirus NL63, Coronavirus 229E, Coronavirus OC43, Influenza A, Influenza A subtype H1, Influenza A subtype H3, Influenza A subtype 2009 H1, Influenza B, Metapneumovirus, Parainfluenza 1, Parainfluenza 2, Parainfluenza 3, Parainfluenza 4, RSV, Rhinovirus/Enterovirus. Due to the genetic similarity between human Rhinovirus and Enterovirus, the FilmArray RP assay cannot reliably differentiate them. Coronavirus OC43 may cross-react with some isolates of Coronavirus HKU1. ??A dual positive result may be due to cross-reactivity or may indicate a co-infection. A version of the FilmArray RP assay updated to include an additional adenovirus assay was approved by the FDA in September,. ??The updated version has demonstrated improved detection of adenoviruses relative to the previous version. ??All of the other assays for the 20 targets are unchanged. ?? The detection and identification of specific viral and bacterial nucleic acids from individuals exhibiting signs and symptoms of a respiratory infection aids in the diagnosis of respiratory infection if used in conjunction with other clinical and epidemiological information. ??The results of this test should not be used as the sole basis for diagnosis, treatment, or other management decisions. ??Negative results in the setting of a respiratory illness may be due to infection with pathogens that are not detected by this test. ??Positive results do not rule out infection/co- infection with other organisms. ??The agent(s) detected by the FilmArray RP may not be the definite cause of disease. ??Additional testing (lab, imaging, etc) may be necessary when evaluating a patient with possible respiratory tract infection. The FilmArray RP assay is FDA cleared for [employer] swabs. ??Additional sample types have been validated according to CLIA regulations. ??The performance characteristics of this assay have been determined by [facility]. Current interpretive data was last revised on 2013. Narrative HISTORICAL RESULTS - 05/10/2015 10:42 AM CDT Respiratory Pathogen nucleic acids NOT DETECTED (NEGATIVE) us Historical Provider LAB MICROBIOLOGY - GENERA L ORDERABLES Final Result HISTORICAL RESULTS * Methicillin-resistant Staphylococcus aureus (MRSA) surveillance culture (05/10/2015 6:08 AM CDT) Nasal (Unknown) 05/10/2015 6 :08 AM CDT 05/10/2015 7:46 AM CDT Impressions HISTORICAL RESULTS - 05/11/2015 2:06 PM CDT This test is for Infection Prevention surveillance; no charge to the patient. Narrative HISTORICAL RESULTS - 05/11/2015 2:06 PM CDT Negative [facility] Provider LAB MICROBIOLOGY - GENERA L ORDERABLES Final Result Performing Organization Address [facility] Co de Phone Number HISTORICAL RESULTS * Vancomycin-resistant enterococcus (VRE) screen (05/10/2015 6:08 AM CDT) Rectal swab (Unknown) 05/10/2015 6:08 AM CDT 05/10/2015 7:30 AM CDT Narrative HISTORICAL RESULTS - 05/12/2015 2:24 PM CDT Negative Historical Provider LAB MICROBIOLOGY - GENERA L ORDERABLES Final Result Performing Organization Address [facility] de Phone Number HISTORICAL RESULTS * XR Chest 1 View (05/10/2015 5:35 AM CDT) Anatomical Region Laterality Modality Body, Chest N/A Radiographic Cesia ging 05/10/2015 5:35 AM CDT Narrative 05/10/2015 12:23 PM CDT Geovanny CHRISTENSEN M.D. FINAL REPORT The radiology attending physician has personally reviewed this study, and has reviewed and/or edited this written report and agrees with it. ACC# ??Date Time ??Exam [id number] May 10, 2015 05:35:00 [id number] Chest 1 view Frontal EXAMINATION: ?? CHEST ONE VIEW IMPRESSION: ?? No comparison is available the time of review. An endotracheal tube tip terminates 3 cm above the tricia. A gastric tube course below the diaphragm and tip is excluded from the [id number]. Left retrocardiac opacity likely represents mild left basilar atelectasis. Small left pleural effusion. Cardiomediastinal contours are within normal limits. No pneumothorax. Requested By: LLOYD DURAN M.D. Dictated By: ?? MELLY WALLACE M.D. ??on May?2014 ??9:35A This document has been electronically signed by: STEPH CARPIO M.D. on May 12:23P [id number] Procedure Note Provider, MD Herb - 12/03/2016 STEPH CARPIO M.D. MELLY WALLACE M.D. FINAL REPORT The radiology attending physician has personally reviewed this study, and has reviewed and/or edited this written report and agrees with it. ACC# Date Time Exam [id number] May 10, 2015 05:35:00 [id number] Chest 1 view Frontal EXAMINATION: CHEST ONE VIEW IMPRESSION: No comparison is available the time of review. An endotracheal tube tip terminates 3 cm above the tricia. A gastric tube course below the diaphragm and tip is excluded from the [id number]. Left retrocardiac opacity likely represents mild left basilar atelectasis. Small left pleural effusion. Cardiomediastinal contours are within normal limits. No pneumothorax. Requested By: LLOYD DURAN M.D. Dictated By: MELLY WALLACE M.D. on May 10 2015 9:35A This document has been electronically signed by: STEPH CARPIO M.D. on May 10 2015 12:23P [id number] us Historical Provider IMG XR PROCEDURES Final R esult * ABDOMINAL RADIOGRAPHY, FRONTAL (AP) (05/10/2015 5:35 AM CDT) Anatomical Region Laterality Modality N/A Radiographic Cesia ging 05/10/2015 5:35 AM CDT Narrative 05/10/2015 3:03 PM CDT GOVIND PANDYA M.D. TRINIDAD MYERS M.D. FINAL REPORT The radiology attending physician has personally reviewed this study, and has reviewed and/or edited this written report and agrees with it. ACC# ??Date Time ??Exam [id number] May 10, 2015 05:35:00 [id number] Abdomen single view AP ACC# ??Date Time ??Exam [id number] May 10, 2015 05:35:00 [id number] Abdomen single view AP EXAMINATION: ?Abdomen single view HISTORY: ??Check tube placement ?? IMPRESSION: ?? A single frontal view the abdomen excluding the inferior pelvis is reviewed without prior study available for comparison. The nasogastric tube terminates in the gastric body. There is relative paucity of bowel gas. Limited visualization of the lung bases demonstrates an obscured left hemidiaphragm which may be due to left lower lobe atelectasis, effusion and/or pneumonia. ?? Requested By: LINDA KOHLI M.D. Dictated By: ?? TRINIDAD MYERS M.D. ??on May?2014 ??9:24A This document has been electronically signed by: GOVIND PANDYA M.D. on May ??2014 ??3:02P [id number] Procedure Note Provider, MD Herb - 12/03/2016 Geovanny WEBB M.D. FINAL REPORT The radiology attending physician has personally reviewed this study, and has reviewed and/or edited this written report and agrees with it. ACC# Date Time Exam [id number] May 10, 2015 05:35:00 [id number] Abdomen single view AP ACC# Date Time Exam [id number] May 10, 2015 05:35:00 [id number] Abdomen single view AP EXAMINATION: Abdomen single view HISTORY: Check tube placement IMPRESSION: A single frontal view the abdomen excluding the inferior pelvis is reviewed without prior study available for comparison. The nasogastric tube terminates in the gastric body. There is relative paucity of bowel gas. Limited visualization of the lung bases demonstrates an obscured left hemidiaphragm which may be due to left lower lobe atelectasis, effusion and/or pneumonia. Requested By: LINDA KOHLI M.D. Dictated By: TRINIDAD MYERS M.D. on May 10 2015 9:24A This document has been electronically signed by: GOVIND PANDYA M.D. on May 10 2015 3:02P [id number] us Historical Provider MD DENT XR PROCEDURES Final R esult * Blood glucose, POC (05/10/2015 4:47 AM CDT) Glucose, POC, bld 175 70 - 199 mg/dl HISTORICAL RESULTS Blood specimen (specimen) 05/10/2015 4:47 AM CDT us Thea Donnelly MD LAB BLOOD ORDERABLES Fin al Result HISTORICAL RESULTS * All Microbiology Report Section (05/10/2015 12:00 AM CDT) 05/10/2015 Narrative HISTORICAL RESULTS - 05/19/2015 10:03 AM CDT ? [facility] ?[facility] [place] ?[place] [address] ? Patient Name: ??PHOEBE HILLMAN ? Med Rec Number: [id number] ? Fin Number: ?[id number] ? Date: ?1940 ? Sex/Age: ? Female 74 years ? Admit Date: ?05/10/2015 ? Discharge Date: 05/18/2015 ? Doctor: ?Medicine , ? Facility: ?[facility] ? Location: ?OTHER ?* Abnormal ??A Alert ??f Footnote ??^ Corrected ??L Low ??H High ?i Interp Data ??@ Ref Lab ? Chart Type:Cumulative ?* * * * MICROBIOLOGY - MISCELLANEOUS * * * * ?PROCEDURE: MRSA Surveillance Culture ? SOURCE: Nasal ? COLLECTED: 05/10/15 ??0608 ?BODY SITE: ? STARTED: 05/10/15 ??0746 ? FREE TEXT SOURCE: ? FINAL REPORT ? REPORTED: 05/11/15 1406 ? Negative ?* * * ??Interpretive Results ??* * * ? (1)This test is for Infection Prevention surveillance; no charge to ? the patient. ? us Historical Provider MD LAB MICROBIOLOGY - GENERA L ORDERABLES Final Result HISTORICAL RESULTS * All Microbiology Report Section (05/10/2015 12:00 AM CDT) 05/10/2015 Narrative HISTORICAL RESULTS - 05/19/2015 10:03 AM CDT ? [facility] ?[facility] [place] ?[place], [place] [address] ? Patient Name: ??PHOEBE HILLMAN ? Med Rec Number: [id number] ? Fin Number: ?[id number] ? Date: ?1940 ? Sex/Age: ? Female 74 years ? Admit Date: ?05/10/2015 ? Discharge Date: 05/18/2015 ? Doctor: ?Medicine , ? Facility: ?[facility] ? Location: ?OTHER ?* Abnormal ??A Alert ??f Footnote ??^ Corrected ??L Low ??H High ?i Interp Data ??@ Ref Lab ? Chart Type:Cumulative ?* * * * MICROBIOLOGY - GASTROINTESTINAL * * * * ?PROCEDURE: VRE Screen Culture ? SOURCE: Rectal swab ? COLLECTED: 05/10/15 ??0608 ?BODY SITE: ? STARTED: 05/10/15 ??0730 ? FREE TEXT SOURCE: ? FINAL REPORT ? REPORTED: 05/12/15 1424 ? Negative us Historical Provider MD LAB MICROBIOLOGY - GENERA L ORDERABLES Final Result HISTORICAL RESULTS * All Microbiology Report Section (05/10/2015 12:00 AM CDT) 05/10/2015 Narrative HISTORICAL RESULTS - 05/19/2015 10:03 AM CDT ? [facility] ?[facility] [place] ?[place] [address] ? Patient Name: ??PHOEBE HILLMAN ? Med Rec Number: [id number] ? Fin Number: ?[id number] ? Date: ?1940 ? Sex/Age: ? Female 74 years ? Admit Date: ?05/10/2015 ? Discharge Date: 05/18/2015 ? Doctor: ?Medicine , ? Facility: ?[facility] ? Location: ?OTHER ?* Abnormal ??A Alert ??f Footnote ??^ Corrected ??L Low ??H High ?i Interp Data ??@ Ref Lab ? Chart Type:Cumulative ?* * * * MICROBIOLOGY - MOLECULAR TESTING * * * * ?PROCEDURE: Respiratory Pathogen Multiplex PCR ? SOURCE: Nasopharyngeal ? COLLECTED: 05/10/15 ??0608 ?BODY SITE: ? STARTED: 10/06/15 ??0843 ? FREE TEXT SOURCE: ? FINAL REPORT ? REPORTED: 05/10/152 ? Respiratory Pathogen nucleic acids NOT DETECTED (NEGATIVE) ? ORDER COMMENTS ? (1)Testing performed by: [facility], [place] [address] ??Testing performed by: [facility], ? [place] [address] ?* * * ??Interpretive Results ??* * * ? (1)The [employer] (formerly known as [employer]) ? FilmArray Respiratory Panel (RP) assay is a multiplexed nucleic ? acid test capable of simultaneous qualitative detection and ? identification of multiple respiratory viral and bacterial ? nucleic acids. ??The following bacteria, viruses and virus ? subtypes can be identified using the FilmArray RP assay: ? Bordetella pertussis, Chlamydophila pneumoniae, Mycoplasma ? pneumoniae, Adenovirus, Coronavirus HKU1, Coronavirus NL63, ? Coronavirus 229E, Coronavirus OC43, Influenza A, Influenza A ? subtype H1, Influenza A subtype H3, Influenza A subtype 2009 H1, ? Influenza B, Metapneumovirus, Parainfluenza 1, Parainfluenza 2, ? Parainfluenza 3, Parainfluenza 4, RSV, Rhinovirus/Enterovirus. ? Due to the genetic similarity between human Rhinovirus and ? Enterovirus, the FilmArray RP assay cannot reliably ? differentiate them. Coronavirus OC43 may cross-react with some ? isolates of Coronavirus HKU1. ??A dual positive result may be due ? to cross-reactivity or may indicate a co-infection.A version of ? the FilmArray RP assay updated to include an additional ? adenovirus assay was approved by the FDA in September,. ??The ? updated version has demonstrated improved detection of ? adenoviruses relative to the previous version. ??All of the other ? assays for the 20 targets are unchanged. ??The detection and ? identification of specific viral and bacterial nucleic acids ? from individuals exhibiting signs and symptoms of a respiratory ? infection aids in the diagnosis of respiratory infection if used ? in conjunction with other clinical and epidemiological ? information. ??The results of this test should not be used as the ? sole basis for diagnosis, treatment, or other management ? decisions. ??Negative results in the setting of a respiratory ? illness may be due to infection with pathogens that are not ? detected by this test. ??Positive results do not rule out ? infection/co-infection with other organisms. ??The agent(s) ? detected by the FilmArray RP may not be the definite cause of ? disease. ??Additional testing (lab, imaging, etc) may be ? necessary when evaluating a patient with possible respiratory ? tract infection.The FilmArray RP assay is FDA cleared for [employer] ? swabs. ??Additional sample types have been validated according to ? CLIA regulations. ??The performance characteristics of this assay ? have been determined by [place] [facility] ? Lab.Current interpretive data was last revised on 2013. ? us Historical Provider MD [facility] MICROBIOLOGY - GENERA L ORDERABLES Final Result HISTORICAL RESULTS * ELECTROCARDIOGRAPHY (ECG) (05/10/2015) Narrative 05/10/2015 Ordered by an unspecified provider. Historical Provider ECG ORDERABLES Final Res ult documented in this encounter Visit Diagnoses Diagnosis Acute respiratory failure with hypoxia ([facility]) (HCC) Non-ST elevation (NSTEMI) myocardial infarction ([facility]) (HCC) Pneumonia Pneumonia, organism unspecified Other encephalopathy Pleural effusion, not elsewhere classified Acute kidney failure (HCC) Acute kidney failure, unspecified Chronic obstructive pulmonary disease with acute exacerbation (HCC) Pneumothorax Acute embolism and thrombosis of other specified deep vein of right lower extremity (HCC) Other specified diseases of upper respiratory tract Obesity Obesity, unspecified Body mass index (BMI) of 31.0-31.9 in adult Essential (primary) hypertension Unspecified essential hypertension Dependence on supplemental oxygen Solitary pulmonary nodule Diaphragmatic hernia without obstruction or gangrene Diaphragmatic hernia without mention of obstruction or gangrene Nontoxic single thyroid nodule Nontoxic uninodular goiter Presence of artificial knee joint Personal history of nicotine dependence documented in this encounter
--- OUTSIDE RECORDS SUMMARY | 2024-08-05 02:33 | XMS_ITS | Encounter Summary ---
Author Organization [facility] Address [address] [place] [address] Phone Care Team Providers Care Media Production Manager Name Role Phone Jason Wiggins MD Primary Care Provider [phone] Encounter Details Date Type Department Care Team (Late st Contact Info) Description 07/10/2018 Telephone [facility] Scheduling [address] [place] [address] Estrella Dodge BS Social History Tobacco Use Types Packs/Day Years Used Date Smoking Tobacco: Never Assessed Comments Unknown Sex and Gender Information Value Date Recorded Sex Assigned at Not on file Legal Sex Female 11:40 AM [employer]TAIN Gender Identity Not on file Sexual Orientation Not on file documented as of this encounter Miscellaneous Notes * Telephone Encounter - Estrella Dodge BS - 09/19/2018 1:12 PM CST Ranjeet MOODY referral- called and spoke with patient. She said she does not need an appt with NS and is feeling better. Called Dr. Wiggins's office and let them know as well OR TUG CAPTAIN * Telephone Encounter - Estrella Dodge BS - 08/13/2018 3:48 PM CST Scanned in referral, notes and Xray. Never heard back from patient OR TUG CAPTAIN * Telephone Encounter - Estrella Dodge BS - 08/01/2018 12:49 PM HARBOR TUG CAPTAIN Called pt-phone picked up but no answer. Done with task since unable to reach pt OR TUG CAPTAIN * Telephone Encounter - Belinda Sadler CNA - 07/16/2018 1:14 PM HARBOR TUG CAPTAIN Called pt nvm available- need notes , imaging, reg/intake OR TUG CAPTAIN * Telephone Encounter - Estrella Dodge BS - 07/10/2018 7:58 AM CST THO-EL (need to see spine NS). Rcvd referral only. Need all records/imaging and reg/intake OR TUG CAPTAIN documented in this encounter Plan of Treatment Not on file documented as of this encounter Visit Diagnoses Not on filedocumented in this encounter Care Teams Media Production Manager Relationship Specialty Start Date End Date Jason Wiggins MD [address] [address] PCP - General Internal Medicine 09/18/18 08/24/20 documented as of this encounter
--- OUTSIDE RECORDS SUMMARY | 2024-08-05 02:33 | XMS_ITS | Encounter Summary ---
Author Organization [facility] Healthcare Address [address] [place] [address] Care Team Providers Care On Site Property Manager Name Role Phone Jason Wiggins MD Primary Care Provider [phone] Eusebio Nagy MD Primary Care Provider [phone] Jason Wiggins MD Primary Care Provider [phone] Reason for Visit * Reason Comments Stroke Encounter Details Date Type Department Care Team (Latest Contact Info) Description 08/23/2020 5:48 PM DOCENT COORDINATOR - 08/30/2020 6:24 PM DOCENT COORDINATOR Hospital Encounter [facility] [address] [place] [address] Agatha Loredo MD [address] [place] [address] Glenn Thrasher MD [address] [place] [address] Daniela Sarabia MD [address] [place] [address] Mary Robbins MD [address] [place] [address] Tai Gutierrez MD [address] [place] [address] Acute hypercapnic respiratory failure (CMS/HCC) (Primary Dx); COPD exacerbation (CMS/HCC); Encephalopathy acute Discharge Disposition: Discharge to home, home health skilled care Social History Tobacco Use Types Packs/Day Years Used Date Smoking Tobacco: Former Cigarettes Q uit: 08/23/2004 Comments Unknown Sex and Gender Information Value Date Recorded Sex Assigned at Not on file Legal Sex Female 11:40 AM DOCENT COORDINATOR Gender Identity Not on file Sexual Orientation Not on file documented as of this encounter Last Filed Vital Signs Vital Sign Reading Time Taken Comments Blood Pressure 107/71 08/30/2020 3:50 PM DOCENT COORDINATOR Pulse 85 08/30/2020 3:50 PM DOCENT COORDINATOR Temperature 36.7 ??C (98.1 ??F) 08/30/2020 3:50 PM CS T Respiratory Rate 20 08/30/2020 3:50 PM DOCENT COORDINATOR Oxygen Saturation 99% 08/30/2020 3:50 PM DOCENT COORDINATOR Inhaled Oxygen Concentration - - Weight 65 kg (143 lb 4.8 oz) 08/23/2020 9:00 PM DOCENT COORDINATOR Height 162.6 cm (5' 4.02 ) 08/24/2020 2:21 PM CS T Body Mass Index 24.59 08/23/2020 9:00 PM DOCENT COORDINATOR documented in this encounter Discharge Diagnoses Diagnosis Chronic obstructive pulmonary disease with (acute) exacerbation (HCC) - CHRONIC OBSTRUCTIVE PULMONARY DISEASE WITH (ACUTE) EXACERBATION Contact with and (suspected) exposure to covid-19 - CONTACT WITH AND (SUSPECTED) EXPOSURE TO COVID-19 Acute and chronic respiratory failure with hypoxia (CMS/HCC) (HCC) - ACUTE AND CHRONIC RESPIRATORY FAILURE WITH HYPOXIA Acute and chronic respiratory failure with hypercapnia (CMS/HCC) (HCC) - ACUTE AND CHRONIC RESPIRATORY FAILURE WITH HYPERCAPNIA Pneumonitis due to inhalation of food and vomit (CMS/HCC) (HCC) - PNEUMONITIS DUE TO INHALATION OF FOOD AND VOMIT Hyperosmolality and hypernatremia - HYPEROSMOLALITY AND HYPERNATREMIA Hyperosmolality and/or hypernatremia Encephalopathy, unspecified - ENCEPHALOPATHY, UNSPECIFIED Pleural effusion, not elsewhere classified - PLEURAL EFFUSION, NOT ELSEWHERE CLASSIFIED Collapsed vertebra, not elsewhere classified, thoracic region, initial encounter for fracture (HCC) - COLLAPSED VERTEBRA, NOT ELSEWHERE CLASSIFIED, THORACIC REGION, INITIAL ENCOUNTER FOR FRACTURE Iron deficiency anemia, unspecified - IRON DEFICIENCY ANEMIA, UNSPECIFIED Vitamin D deficiency, unspecified - VITAMIN D DEFICIENCY, UNSPECIFIED Hyperlipidemia, unspecified - HYPERLIPIDEMIA, UNSPECIFIED Panic disorder (episodic paroxysmal anxiety) - PANIC DISORDER [EPISODIC PAROXYSMAL ANXIETY] Essential (primary) hypertension - ESSENTIAL (PRIMARY) HYPERTENSION Unspecified essential hypertension Chronic obstructive pulmonary disease with (acute) lower respiratory infection (HCC) - CHRONIC OBSTRUCTIVE PULMONARY DISEASE WITH (ACUTE) LOWER RESPIRATORY INFECTION Gastro-esophageal reflux disease without esophagitis - GASTRO-ESOPHAGEAL REFLUX DISEASE WITHOUT ESOPHAGITIS Diaphragmatic hernia without obstruction or gangrene - DIAPHRAGMATIC HERNIA WITHOUT OBSTRUCTION OR GANGRENE Diaphragmatic hernia without mention of obstruction or gangrene Physical restraint status - PHYSICAL RESTRAINT STATUS Personal history of pneumonia (recurrent) - PERSONAL HISTORY OF PNEUMONIA (RECURRENT) Personal history of nicotine dependence - PERSONAL HISTORY OF NICOTINE DEPENDENCE Dependence on supplemental oxygen - DEPENDENCE ON SUPPLEMENTAL OXYGEN Unspecified place or not applicable - UNSPECIFIED PLACE OR NOT APPLICABLE Other specified events, undetermined intent, initial encounter - OTHER SPECIFIED EVENTS, UNDETERMINED INTENT, INITIAL ENCOUNTER documented in this encounter Discharge Summaries * Daniela Sarabia MD - 08/29/2020 3:21 PM CST Inpatient Discharge Summary BRIEF OVERVIEW Admitting Provider: Mary Robbins MD Discharge Provider: Daniela Sarabia MD Primary Care Physician at Discharge: Jason Wiggins MD [phone] Admission Date: 08/23/2020 Discharge Date: 08/30/2020 Admission Location: [facility] Problems/Diagnoses: Principal Problem: Acute on chronic respiratory failure with hypoxia and hypercapnia (CMS/HCC) Active Problems: Acute hypercapnic respiratory failure (CMS/HCC) Chronic obstructive pulmonary disease with acute exacerbation (CMS/HCC) HTN (hypertension) Thoracic spine fracture (CMS/HCC) Iron deficiency anemia GERD (gastroesophageal reflux disease) Vitamin D deficiency Resolved Problems: Encephalopathy acute Acute encephalopathy DETAILS OF HOSPITAL STAY Presenting Problem/History of Present Illness: Phoebe Hillman is a 79 y.o. female who has a PMH of pHTN, COPD (b/l 3L O2), HTN and GERD who presented for dyspnea and L sided weakness who was BIBEMS as Code Stroke requiring BiPAP. ?? Patient's LKN 08/22 at 2200. Patient was having difficulty waking up this morning and when evaluatedby EMS had left sided-weakness with vomit around the mouth. ?? In the ED, patient was afebrile, normotensive, P 86, RR 17, and SpO2 94% and dyspneic with increased WOB and diffuse wheezing noted to have mild abdominal distention mildly tender to palpation. Patient was evaluated by Neurology NIHSS 7 on admission but non-focal. hCT showed cerebral atrophy. She was NO-GO for tPA as presenting outside window and did not undergo CTA/CTP due to thought this was a stroke mimic in the setting of toxic-metabolic derangements. Labs were notable for WBC 7.2, microcytic anemia Hb 8L MCV 80.9, Na 145, K 4.6, BUN 17, Cr 0.59, LFTs WNL, Glu 109, Ammonia 52H, Lactate 0.5L, TSH 0.26L, Trop <4. VBG 7.18 >125 36. UA with 1+ protein, trace bacteria, no LE or nitrite. COVID Negative. CXR whoed small lung volumes and patchy airspace opacitiies throughout the right lung.CT Abd/Pelv with mild to mod hiatal hernia, changes of aspiration in RLL and small R pleural effusion. Non-specific hypoattentuation in the R kidney that can be seen in s/o pyelonephritis. Mod to severe compression fracture of T11 and T12. EKG NSR and no significant change from 2015. ?? She was given Vanc/Cefe/Azithro, Methyprednisolone and DuoNebs for presumes Aspiration Pneumonia/COPD Exacerbation and placed on BiPAP. Patient was admitted to MICU for further management and evaluation of patient's acute hypercapneic respiratory failure requiring BiPAP. ?? On arrival to MICU patient was on BiPAP at 24/10 pulling low TVs. She was awake and intermittently responsive to commands. She was eventually intubated. ?? Family Communication: Phoebe Hillman's daughter, Kim Dodson was contacted regarding the plan of care for the patient. Family was encouraged to asked questions and concerns were discussed. Per patient's daughter hermother had a fall three months ago that resulted in spinal fractures. Additionally, patient should to be using CPAP at night at home but only using it intermittently. She has not had surgery. Ms. Dodson expressed that her mother's wishes was to be Full Code. Hospital Course: Vitamin D deficiency Started daily replacement ?? GERD (gastroesophageal reflux disease) Continued??Home Pantoprazole 40mg Daily ?? Iron deficiency anemia Presented with Hgb in 8s without explanation, MCV high 70s, iron profile 13, ferritin 28, Tsat 4%, now s/p 1U PRBCs and 1 x Ferrlecit. Started ferrous sulfate BID. She needs evaluation for age based screening on outpatient basis. Thoracic spine fracture Suspect secondary to fall 3 months ago where patient was reported to have sustained spinal fractures. Has been taking opiates for pain at home. 08/23 CT Abd/Pelv Moderate to Severe Compression fractures at T11 and T12. PT/OT recommended SNF, but patient ultimately refused and was discharged home at her request. Vit d was low and replacement started. She would benefit from further bone health OP evaluation. ?? HTN (hypertension) She was continued on HCTZ 12.5mg Oral Daily, Metoprolol Succinate 100mg Daily.? Chronic obstructive pulmonary disease with acute exacerbation Continued Home??Monteleukast 10mg Daily, O2- baseline 3 L. She was started on ICA/LABA and LAMA. ? * Acute on chronic respiratory failure with hypoxia and hypercapnia Presented w/hypercapnic respiratory failure likely to COPD Exacerbation and possible PNA. Initiallyon BIPAP then intuabted. Unclear precipitant but some concern for polypharmacy in the setting of multiple benzo prescriptions (Clonazepam and Tenazepam) along with opiates. VBG 7.16 >125 158. Infectious workup was neg to date, and abx were narrowed to CTX, with last dose 08/27. RVP neg, Legionella Ag neg, COVID neg. BCx and trach asp Cx 08/23 NGTD. Intubated 08/23;??Extubated 08/26. Pred 08/23- 08/28. On 4 L O2 at discharge. Patient's discharge was planned for yesterday to SNF, but patient ultimately declined. Initially, there was concern as to whether patient was altered and so oxycodone was stopped, but to me this morning, patient is AOx4 and is able to state that she wants to go home to spend time with her dogs, andis aware of the risks of going home without going to rehab. She is able to state that she will use a walker to get to the bathroom and that she has family who will help with other ADLs. She has capacity to make this discussion, so we discussed in detail the options she has and the risks/benefits and she did not change her mind. I will arrange for HH and discharge home today. Test Results Pending at Discharge: Pending Labs Order Current Status Infection Prevention MRSA Only (Staphylococcus aureus) Culture Nasal In process MRSA Only (Staphylococcus aureus) Culture Nasal In process Discharge Details Physical Exam at Discharge: Discharge Condition: fair Pulse: 89 Resp: 21 BP: 162/86 Temp: 36.7 ??C (98.1 ??F) Weight: 65 kg (143 lb 4.8 oz) Pertinent Exam Findings at Discharge: nwb on 4 L, euvolemic, no wheezes Discharge Disposition: Discharge to home, home health skilled care Code Status at Discharge: full Discharge Medications: Current Medications TAKE these medications acetaminophen 325 mg tablet Take [...] by mouth 2 (two) times a day For: repeated episodes of anxiety Commonly known as: BUSPAR cholecalciferol 2000 unit capsule Take 1 capsule (2,000 Units total) by mouth daily Commonly known as: VITAMIN D-3 ferrous sulfate 325 mg (65 mg of elemental iron) tablet Take 1 tablet (325 mg total) by mouth 2 (two) times a day with meals For: anemia from inadequate iron fluticasone furoate-vilanteroL 100-25 mcg/dose diskus inhaler Inhale [...] by mouth nightly Commonly known as: SINGULAIR ondansetron ODT 4 mg disintegrating tablet Take 1 tablet (4 mg total) by mouth 4 (four) times a day as needed for nausea or vomiting Commonly known as: ZOFRAN-ODT pantoprazole DR 40 mg EC tablet Take 1 tablet (40 mg total) by mouth daily For: Stress Ulcer Prophylaxis Commonly known as: PROTONIX umeclidinium 62.5 mcg/actuation blister with device Inhale 1 puff (62.5 mcg total) daily Commonly known as: INCRUSE ELLIPTA NT COORDINATOR NT COORDINATOR documented in this encounter Discharge Instructions * Discharge Instr - Other Orders* eDbby Martinez RN - 08/30/2020 4:28 PM DOCENT COORDINATOR Please call to schedule your primary care physician appointment within 1 week of discharge. [facility] will contact you to schedule start of care. If you do not hear from them within 24 hours of discharge please call them. [facility] [phone] NT COORDINATOR documented in this encounter Medications at Time [...] a day with meals 60 tablet 08/30/2020 acetaminophen (TYLENOL) 325 mg tablet Take 2 tablets (650 mg total) by mouth every 4 (four) hours as needed for pain 30 tablet 08/29/2020 2 busPIRone (BUSPAR) 10 mg tabletIndications:Ge neralized Anxiety [...] nausea or vomiting 20 tablet 08/30/[address] (PROTONIX) 40 mg EC tabletIndications:St ress Ulcer Prophylaxis Take 1 tablet (40 mg total) by mouth daily 30 tablet 08/30/2020 2 umeclidinium (INCRUSE ELLIPTA) 62.5 mcg/actuation blister with device Inhale 1 puff (62.5 mcg total) daily 30 each 08/30/2020 2 documented as of this encounter Ordered Prescriptions Prescription Sig Dispense Quantity Refills Last Filled Start Date End Date hydroCHLOROthiazide (HYDRODIURIL) 12.5 mg tablet Take 1 tablet (12.5 mg total) by mouth daily 30 tablet 08/30/2020 albuterol HFA (PROVENTIL HFA,VENTOLIN HFA,PROAIR HFA) 90 mcg/actuation inhaler Inhale 2 puffs every 4 (four) hours as needed for wheezing 1 Inhaler 08/30/2020 umeclidinium (INCRUSE ELLIPTA) 62.5 mcg/actuation blister with device Inhale 1 puff (62.5 mcg total) daily 30 each 08/30/[address] (PROTONIX) 40 mg EC tabletIndications:St ress Ulcer Prophylaxis Take 1 tablet (40 mg total) by mouth daily 30 tablet 08/30/2020 2 ondansetron ODT (ZOFRAN-ODT) 4 mg disintegrating tablet Take 1 tablet (4 mg total) by mouth 4 (four) times a day as needed for nausea or vomiting 20 tablet 08/30/2020 1 montelukast (SINGULAIR) 10 mg tablet Take 1 tablet (10 mg total) by mouth nightly 30 tablet 08/30/2020 2 metoprolol XL (TOPROL-XL) 100 mg 24 hr tablet Take 1 tablet (100 mg total) by mouth daily 30 tablet 08/30/2020 2 ipratropium (ATROVENT HFA) 17 mcg/actuation inhaler Inhale 2 puffs every 4 (four) hours as needed for wheezing 12.9 g 08/30/2020 2 fluticasone furoate-vilanteroL (BREO ELLIPTA) 100-25 mcg/dose diskus inhaler Inhale 1 puff daily Rinse mouth with water after use. Do not swallow. 60 each 08/30/2020 2 ferrous sulfate 325 mg (65 mg of elemental iron) tabletIndications:Ir on Deficiency Anemia Take 1 tablet (325 mg total) by mouth 2 (two) times a day with meals 60 tablet 08/30/2020 2 cholecalciferol (VITAMIN D-3) 2000 unit capsule Take 1 capsule (2,000 Units total) by mouth daily 30 capsule 08/30/2020 2 busPIRone (BUSPAR) 10 mg tabletIndications:Ge neralized Anxiety Disorder Take 1 tablet (10 mg total) by mouth 2 (two) times a day 60 tablet 08/30/2020 2 ondansetron ODT (ZOFRAN-ODT) 4 mg disintegrating tablet Take 1 tablet (4 mg total) by mouth 4 (four) times a day as needed for nausea or vomiting 20 tablet 08/29/2020 1 umeclidinium (INCRUSE ELLIPTA) 62.5 mcg/actuation blister with device Inhale 1 puff (62.5 mcg total) daily 08/29/2020 1 polyethylene glycol (MIRALAX) 17 gram packetIndications:co nstipation Take 1 packet (17 g total) by mouth 2 (two) times a day 08/29/[address] (PROTONIX) 40 mg EC tabletIndications:St ress Ulcer Prophylaxis Take 1 tablet (40 mg total) by mouth daily 30 tablet 11 08/30/2020 1 montelukast (SINGULAIR) 10 mg tablet Take 1 tablet (10 mg total) by mouth nightly 30 tablet 11 08/29/2020 1 metoprolol XL (TOPROL-XL) 100 mg 24 hr tablet Take 1 tablet (100 mg total) by mouth daily 30 tablet 11 08/30/2020 1 ipratropium (ATROVENT HFA) 17 mcg/actuation inhaler Inhale 2 puffs every 4 (four) hours as needed for wheezing 12.9 g 08/29/2020 1 hydroCHLOROthiazide (HYDRODIURIL) 12.5 mg tablet Take 1 tablet (12.5 mg total) by mouth daily 30 tablet 11 08/30/2020 1 fluticasone furoate-vilanteroL (BREO ELLIPTA) 100-25 mcg/dose diskus inhaler Inhale 1 puff daily Rinse mouth with water after use. Do not swallow. 60 each 08/29/2020 1 ferrous sulfate 325 mg (65 mg of elemental iron) tabletIndications:Ir on Deficiency Anemia Take 1 tablet (325 mg total) by mouth 2 (two) times a day with meals 60 tablet 11 08/29/2020 1 cholecalciferol (VITAMIN D-3) 2000 unit capsule Take 1 capsule (2,000 Units total) by mouth daily 30 capsule 11 08/30/2020 1 busPIRone (BUSPAR) 10 mg tabletIndications:Ge neralized Anxiety Disorder Take 1 tablet (10 mg total) by mouth 2 (two) times a day 60 tablet 11 08/29/2020 1 albuterol HFA (PROVENTIL HFA,VENTOLIN HFA,PROAIR HFA) 90 mcg/actuation inhaler Inhale 2 puffs every 4 (four) hours as needed for wheezing 1 Inhaler 08/29/2020 1 acetaminophen (TYLENOL) 325 mg tablet Take 2 tablets (650 mg total) by mouth every 4 (four) hours as needed for pain 30 tablet 08/29/2020 2 oxyCODONE (ROXICODONE) 5 mg immediate release tabletIndications:Pa in Take 1 tablet (5 mg total) by mouth every 4 (four) hours as needed (2nd line for pain) 10 tablet 08/29/2020 1 documented in this encounter Discharge Disposition Disposition Code Departure Means Destination Discharge to home, home health skilled care documented in this encounter Progress Notes * Debby Martinez RN - 08/30/2020 3:40 PM CST 08/30/20 1557 Discharge Summary Chart reviewed For Medical Necessity Does patient have a planned readmission to hospital planned? No Discharge Disposition Home Equipment/Provider Needs Home Provider Services Needs Identified Home Care Agency Information Home Care Agency Type #1: [facility] (PT[facility]OT) Home Care Agency Name [facility] Home Care Agency Home Care Agency Contact Spoken to [facility] Order Faxed to [facility] Used? Not Needed Discharge Additional Assistance Does the patient need discharge transport arranged? No Post Discharge Care Provider Post Discharge Care Plan DC Summary has been faxed to next level of care provider (see Follow Up Providers) Patient stable for discharge from the hospital. Discharge medications: per mobile pharmacy. F/U appointment with PCP documented. Patient's daughter to provide transportation home. NT COORDINATOR NT COORDINATOR * Daniela Sarabia MD - 08/30/2020 1:29 PM CST Daily Progress Note Division of Hospital Medicine Name: Phoebe Hillman Today: August 30, 2020 : 1940 Age: 79 y.o. female Admit: 08/23/2020 Bed: [id number] Subjective Chief complaint: acute hypercapnic respiratory failure Interval History: Patient's discharge was planned for yesterday to SNF, but patient ultimately declined. Initially, there was confusion as to whether patient was altered, but to me this morning, patient is AOx4 and is able to state that she wants to go home to spend time with her dogs, and is awareof the risks of going home without going to rehab. She has capacity to make this discussion, so we discussed in detail the options she has and the risks/benefits and she did not change her mind. I will arrange for HH and discharge home today. Objective Medications: Scheduled: ??? busPIRone, 10 mg, oral, BID ??? cholecalciferol, 2,000 Units, oral, Daily ??? enoxaparin, 40 mg, subcutaneous, Daily-2100 ??? ferrous sulfate, 65 mg of elemental iron, oral, BID with meals (bkfst, dinner) ??? fluticasone furoate-vilanteroL, 1 puff, inhalation, Daily (RT) ??? hydroCHLOROthiazide, 12.5 mg, oral, Daily ??? metoprolol XL, 100 mg, oral, Daily ??? montelukast, 10 mg, oral, Nightly ??? pantoprazole DR, 40 mg, oral, Daily ??? polyethylene glycol, 17 g, oral, BID ??? umeclidinium, 1 puff, inhalation, Daily (RT) Infusions: PRN: ??? acetaminophen ??? albuterol HFA ??? benzonatate ??? ipratropium ??? ondansetron ODT ??? senna-docusate Vitals: 24hr Min/Max: Temp Min: 36.7 ??C (98.1 ??F) Max: 36.9 ??C (98.4 ??F) Pulse Min: 89 Max: 98 BP Min: 135/69 Max: 176/80 Resp Min: 21 Max: 22 SpO2 Min: 98 % Max: 100 % Most Recent: Vitals: 08/30/20 0305 BP: 162/86 Pulse: 89 Resp: 21 Temp: 36.7 ??C (98.1 ??F) SpO2: 100% Intake/Output Summary (Last 24 hours) at 08/30/2020 1330 Last data filed at 08/30/2020 1000 Gross per 24 hour Intake 180 ml Output -- Net 180 ml Physical Exam: Constitutional: NAD, well developed, well nourished. Eyes: EOMI, anicteric. ENT: NCAT. Oropharynx normal, moist mucus membranes. Lungs: No increased work of breathing, unlabored. Cardiovascular: Regular, no JVD. GI: Soft, non-tender, non-distended. Skin: No new rashes, lesions or bruises Extremities: No cyanosis, warm, well perfused. Lymph: No edema. Neurologic: Aox4, grossly normal exam. Psychiatric: Normal affect and mood. Lab/Diagnostic Review: Recent Results (from the past 24 hour(s)) Urinalysis reflex to microscopic and culture Urine Collection Time: 08/29/20 5:53 PM Specimen: Urine Result Value Ref Range Color, ur Yellow Yellow Clarity, ur Cloudy (A) Clear Specific gravity, ur 1.020 1.010 - 1.025 pH, urine 5 Protein, ur ql 2+ (A) Negative Glucose, ur ql Negative Negative Ketones, ur 1+ (A) Negative Bilirubin, ur Negative Negative Blood, ur 2+ (A) Negative Urobilinogen, ur <2.0 <2.0 mg/dL Nitrite, ur Negative Negative Leukocyte esterase, ur 1+ (A) Negative UA reflex comment Reflex to microscopic UA will be performed. Urinalysis, microscopic only Collection Time: 08/29/20 5:53 PM Result Value Ref Range WBC, ur 6-10 (A) 0 - 5 /HPF RBC, ur 21-50 (A) 0 - 2 /HPF Epithelial cells, squamous, ur 1-5 0 - 5 /HPF Epithelial cells, transitional, ur 1-5 0 - 0 /HPF Bacteria, ur Trace (A) Mucous, ur Present (A) Hyaline casts, ur 11-20 (A) 0 - 10 /LPF Culture Reflex Comment Reflex conditions for urine culture (WBC >10) not met. POCT glucose Collection Time: 08/29/20 7:32 PM Result Value Ref Range Glucose, POC 272 (H) 70 - 199 mg/dL Basic metabolic panel Collection Time: 08/29/20 8:32 PM Result Value Ref Range Sodium 142 135 - 145 mmol/L Potassium, pl 3.4 3.3 - 4.9 mmol/L Chloride 97 97 - 110 mmol/L CO2 41 (H) 22 - 32 mmol/L Anion gap 4 2 - 15 mmol/L BUN 17 8 - 25 mg/dL Creatinine 0.58 (L) 0.60 - 1.10 mg/dL Glucose 227 (H) 70 - 199 mg/dL Calcium 9.3 8.5 - 10.3 mg/dL CBC with auto differential Collection Time: 08/29/20 8:32 PM Result Value Ref Range WBC 9.7 3.8 - 9.9 K/cumm Hgb 10.8 (L) 11.9 - 15.5 g/dL Hct 37.5 35.6 - 45.5 % Plt 357 150 - 400 K/cumm MPV 9.9 9.1 - 12.3 fL RBC 4.66 3.90 - 5.20 M/cumm MCV 80.5 (L) 81.3 - 96.4 fL MCH 23.2 (L) 27.1 - 33.3 pg MCHC 28.8 (L) 32.3 - 35.7 g/dL RDW CV 21.1 (H) 11.1 - 14.9 % RDW SD 58.1 (H) 35.7 - 48.1 fL NRBC abs 0.00 0.00 - 0.01 K/cumm Magnesium Collection Time: 08/29/20 8:32 PM Result Value Ref Range Magnesium 1.9 1.4 - 2.5 mg/dL Phosphorus Collection Time: 08/29/20 8:32 PM Result Value Ref Range Phosphorus, pl 3.3 2.3 - 4.5 mg/dL Differential, auto Collection Time: 08/29/20 8:32 PM Result Value Ref Range Neutrophil abs 6.9 (H) 1.7 - 6.5 K/cumm Imm gran abs 0.1 0.0 - 0.1 K/cumm Lymphocyte abs 1.5 0.8 - 3.3 K/cumm Monocyte abs 1.2 (H) 0.2 - 0.8 K/cumm Eosinophil abs 0.0 0.0 - 0.5 K/cumm Basophil abs 0.0 0.0 - 0.1 K/cumm Neutrophil pct 71.0 % Imm gran pct 0.6 % Lymphocyte pct 15.6 % Monocyte pct 12.4 % Eosinophil pct 0.3 % Basophil pct 0.1 % I have reviewed the laboratory results. Imaging Results: XR Chest 1 View (Portable) Narrative: EXAMINATION: 1. 1 view chest radiograph 2. 1 view chest radiograph Impression: 1. Chest radiograph 08/25/2020 at 8:01 PM compared to 08/24/2020. An endotracheal tube is noted, the tricia is difficult to visualize. An esophagogastric tube courses caudally below the diaphragm and terminates below [id number]. The cardiomediastinal contours are within stable. There is bilateral basilar atelectasis. No pneumothorax. No pleural effusion. 2. Chest radiograph 08/25/2020 at 10:18 PM The endotracheal tube is approximately 2.5 cm above the tricia. An esophagogastric tube tip is peripyloric and side-port is in the gastric body. The cardiomediastinal contours are unchanged. There is atherosclerotic calcification of the aortic knob. There is mild right basilar atelectasis. No pleural effusion. No pneumothorax. Dictated by: Eleazar Avina M.D. The radiology attending physician has personally reviewed this study, and had reviewed and/or edited this written report and agrees with it. Electronically signed by: Favian Mcmahan M.D. XR Chest 1 View Narrative: EXAMINATION: 1. 1 view chest radiograph 2. 1 view chest radiograph Impression: 1. Chest radiograph 08/25/2020 at 8:01 PM compared to 08/24/2020. An endotracheal tube is noted, the tricia is difficult to visualize. An esophagogastric tube courses caudally below the diaphragm and terminates below [id number]. The cardiomediastinal contours are within stable. There is bilateral basilar atelectasis. No pneumothorax. No pleural effusion. 2. Chest radiograph 08/25/2020 at 10:18 PM The endotracheal tube is approximately 2.5 cm above the tricia. An esophagogastric tube tip is peripyloric and side-port is in the gastric body. The cardiomediastinal contours are unchanged. There is atherosclerotic calcification of the aortic knob. There is mild right basilar atelectasis. No pleural effusion. No pneumothorax. Dictated by: Eleazar Avina M.D. The radiology attending physician has personally reviewed this study, and had reviewed and/or edited this written report and agrees with it. Electronically signed by: Favian Mcmahan M.D. XR Abdomen Ap 1 Vw Narrative: EXAMINATION: Abdomen, one view. HISTORY: Check tube placement. COMPARISON: 08/23/2020 Impression: A single view of the abdomen is submitted for evaluation. Distal tip and side-port of the gastric tube are within the gastric body. Temperature probe Guerrero catheter within the urinary bladder. Visualized loops of bowel are nondilated. Radiopaque object overlies the left greater trochanter likely external to patient. Dictated by: Jono Garnett M.D. The radiology attending physician has personally reviewed this study, and had reviewed and/or edited this written report and agrees with it. Electronically signed by: Lakia Kenny M.D. I have independently reviewed and interpreted the labs and imaging. Assessment/Plan Vitamin D deficiency Assessment & Plan Cont daily replacement ?? GERD (gastroesophageal reflux disease) Assessment & Plan Continue??Home Pantoprazole 40mg Daily ?? Iron deficiency anemia Assessment & Plan Presented with Hgb in 8s without explanation, MCV high 70s, iron profile 13, ferritin 28, Tsat 4%, now s/p 1U PRBCs and 1 x Ferrlecit. - Consider age-appropriate screening and iron supplementation on outpatient basis - started fe sulf bid 08/28 ?? Thoracic spine fracture (CMS/HCC) Assessment & Plan Suspect secondary to fall 3 months ago where patient was reported to have sustained spinal fractures. Has been taking opiates for pain at home. 08/23 CT Abd/Pelv Moderate to Severe Compression fractures at T11 and T12. -PT/OT -Vit d replacement -Consider bone health OP evaluation ?? HTN (hypertension) Assessment & Plan HCTZ 12.5mg Oral Daily, Metoprolol Succinate 100mg Daily.? Chronic obstructive pulmonary disease with acute exacerbation (CMS/HCC) Assessment & Plan Continue Home??Monteleukast 10mg Daily. Cont O2- baseline 3 L, wean as able Start ICA/LABA, LAMA ?? Acute hypercapnic respiratory failure (CMS/HCC) Assessment & Plan 2/2 copd exacerbation Sp antibiotics and 5 days of prednisone O2 ordered for home, with HH ?? * Acute on chronic respiratory failure with hypoxia and hypercapnia (CMS/HCC) Assessment & Plan Presented w/hypercapnic respiratory failure likely to COPD Exacerbation and possible PNA. Initiallyon BIPAP then intuabted. Unclear precipitant but some [...] 40mg (08/27-08/28) -??Albuterol and Ipratropium HFA q4hrs Discharge Planning I have spent >30 minutes on discharge planning activities. Time spent was on Coordination of care, Follow up , Counselling with patient/family, discharge exam, parent/patient education and Other provider communication. Full Code Daniela Sarabia MD Hospitalist NT COORDINATOR * Debby Martinez RN - 08/30/2020 12:48 PM CST 08/30/20 1248 Communications Important Message from Medicare notice given to patient? Yes NT COORDINATOR * Tai Gutierrez MD - 08/29/2020 12:37 PM CST Daily Progress Note Division of Hospital Medicine Name: Phoebe Hillman Today: August 29, 2020 : 1940 Age: 79 y.o. female Admit: 08/23/2020 Bed: [id number] Subjective Chief complaint: copd exacerbation Interval History: no acute events. Agreeable to snf. Objective Medications: Scheduled: ??? busPIRone, 10 mg, oral, BID ??? cholecalciferol, 2,000 Units, oral, Daily ??? enoxaparin, 40 mg, subcutaneous, Daily-2100 ??? ferrous sulfate, 65 mg of elemental iron, oral, BID with meals (bkfst, dinner) ??? hydroCHLOROthiazide, 12.5 mg, oral, Daily ??? metoprolol XL, 100 mg, oral, Daily ??? montelukast, 10 mg, oral, Nightly ??? pantoprazole, 40 mg, intravenous, Daily ??? polyethylene glycol, 17 g, oral, BID Infusions: PRN: ??? acetaminophen ??? albuterol HFA ??? ipratropium ??? LORazepam ??? ondansetron ODT ??? oxyCODONE ??? ramelteon ??? senna-docusate Vitals: 24hr Min/Max: Temp Min: 36.8 ??C (98.2 ??F) Max: 37.3 ??C (99.1 ??F) Pulse Min: 91 Max: 96 BP Min: 110/84 Max: 164/107 Resp Min: 20 Max: 20 SpO2 Min: 94 % Max: 97 % Most Recent: Vitals: 08/29/20 0915 BP: 160/80 Pulse: 96 Resp: 20 Temp: 37 ??C (98.6 ??F) SpO2: 95% Intake/Output Summary (Last 24 hours) at 08/29/2020 1230 Last data filed at 08/28/2020 1715 Gross per 24 hour Intake -- Output 650 ml Net -650 ml Physical Exam Constitutional: General: She is not in acute distress. HENT: Head: Normocephalic and atraumatic. Nose: Nose normal. Mouth/Throat: Mouth: Mucous membranes are moist. Pharynx: Oropharynx is clear. Eyes: Extraocular Movements: Extraocular movements intact. Conjunctiva/sclera: Conjunctivae normal. Pupils: Pupils are equal, round, and reactive to light. Cardiovascular: Rate and Rhythm: Normal rate and regular rhythm. Pulses: Normal pulses. Heart sounds: Normal heart sounds. No murmur. No friction rub. No gallop. Pulmonary: Effort: Pulmonary effort is normal. Breath sounds: Normal breath sounds. Abdominal: General: There is no distension. Palpations: Abdomen is soft. Tenderness: There is no abdominal tenderness. Musculoskeletal: General: No swelling or tenderness. Right lower leg: No edema. Left lower leg: No edema. Skin: General: Skin is warm and dry. Neurological: General: No focal deficit present. Mental Status: She is alert and oriented to person, place, and time. Psychiatric: Mood and Affect: Mood normal. Behavior: Behavior normal. Lab/Diagnostic Review: Recent Results (from the past 36 hour(s)) CBC with auto differential Collection Time: 08/28/20 4:35 AM Result Value Ref Range WBC 11.4 (H) 3.8 - 9.9 K/cumm Hgb 10.9 (L) 11.9 - 15.5 g/dL Hct 37.4 35.6 - 45.5 % Plt 325 150 - 400 K/cumm MPV 9.8 9.1 - 12.3 fL RBC 4.73 3.90 - 5.20 M/cumm MCV 79.1 (L) 81.3 - 96.4 fL MCH 23.0 (L) 27.1 - 33.3 pg MCHC 29.1 (L) 32.3 - 35.7 g/dL RDW CV 20.7 (H) 11.1 - 14.9 % RDW SD 55.2 (H) 35.7 - 48.1 fL NRBC abs 0.00 0.00 - 0.01 K/cumm Basic metabolic panel Collection Time: 08/28/20 4:35 AM Result Value Ref Range Sodium 142 135 - 145 mmol/L Potassium, pl 2.9 (L) 3.3 - 4.9 mmol/L Chloride 98 97 - 110 mmol/L CO2 36 (H) 22 - 32 mmol/L Anion gap 8 2 - 15 mmol/L BUN 16 8 - 25 mg/dL Creatinine 0.64 0.60 - 1.10 mg/dL Glucose 177 70 - 199 mg/dL Calcium 9.4 8.5 - 10.3 mg/dL Magnesium Collection Time: 08/28/20 4:35 AM Result Value Ref Range Magnesium 1.9 1.4 - 2.5 mg/dL Phosphorus Collection Time: 08/28/20 4:35 AM Result Value Ref Range Phosphorus, pl 3.4 2.3 - 4.5 mg/dL Differential, auto Collection Time: 08/28/20 4:35 AM Result Value Ref Range Neutrophil abs 8.3 (H) 1.7 - 6.5 K/cumm Imm gran abs 0.1 0.0 - 0.1 K/cumm Lymphocyte abs 1.8 0.8 - 3.3 K/cumm Monocyte abs 1.2 (H) 0.2 - 0.8 K/cumm Eosinophil abs 0.0 0.0 - 0.5 K/cumm Basophil abs 0.0 0.0 - 0.1 K/cumm Neutrophil pct 73.1 % Imm gran pct 0.6 % Lymphocyte pct 15.6 % Monocyte pct 10.4 % Eosinophil pct 0.1 % Basophil pct 0.2 % CBC with auto differential Collection Time: 08/29/20 5:02 AM Result Value Ref Range WBC 8.8 3.8 - 9.9 K/cumm Hgb 10.6 (L) 11.9 - 15.5 g/dL Hct 36.3 35.6 - 45.5 % Plt 316 150 - 400 K/cumm MPV 9.5 9.1 - 12.3 fL RBC 4.49 3.90 - 5.20 M/cumm MCV 80.8 (L) 81.3 - 96.4 fL MCH 23.6 (L) 27.1 - 33.3 pg MCHC 29.2 (L) 32.3 - 35.7 g/dL RDW CV 21.1 (H) 11.1 - 14.9 % RDW SD 58.1 (H) 35.7 - 48.1 fL NRBC abs 0.00 0.00 - 0.01 K/cumm Basic metabolic panel Collection Time: 08/29/20 5:02 AM Result Value Ref Range Sodium 145 135 - 145 mmol/L Potassium, pl 3.9 3.3 - 4.9 mmol/L Chloride 100 97 - 110 mmol/L CO2 39 (H) 22 - 32 mmol/L Anion gap 6 2 - 15 mmol/L BUN 17 8 - 25 mg/dL Creatinine 0.61 0.60 - 1.10 mg/dL Glucose 112 70 - 199 mg/dL Calcium 9.5 8.5 - 10.3 mg/dL Magnesium Collection Time: 08/29/20 5:02 AM Result Value Ref Range Magnesium 2.0 1.4 - 2.5 mg/dL Phosphorus Collection Time: 08/29/20 5:02 AM Result Value Ref Range Phosphorus, pl 3.4 2.3 - 4.5 mg/dL Vitamin D 25 hydroxy Collection Time: 08/29/20 5:02 AM Result Value Ref Range Vitamin D, 25-hydroxy 24 (L) 30 - 80 ng/mL Differential, auto Collection Time: 08/29/20 5:02 AM Result Value Ref Range Neutrophil abs 5.7 1.7 - 6.5 K/cumm Imm gran abs 0.1 0.0 - 0.1 K/cumm Lymphocyte abs 1.7 0.8 - 3.3 K/cumm Monocyte abs 1.3 (H) 0.2 - 0.8 K/cumm Eosinophil abs 0.0 0.0 - 0.5 K/cumm Basophil abs 0.0 0.0 - 0.1 K/cumm Neutrophil pct 64.4 % Imm gran pct 0.6 % Lymphocyte pct 19.8 % Monocyte pct 15.0 % Eosinophil pct 0.0 % Basophil pct 0.2 % I have reviewed the laboratory results. Imaging Results: XR Chest 1 View (Portable) Narrative: EXAMINATION: 1. 1 view chest radiograph 2. 1 view chest radiograph Impression: 1. Chest radiograph 08/25/2020 at 8:01 PM compared to 08/24/2020. An endotracheal tube is noted, the tricia is difficult to visualize. An esophagogastric tube courses caudally below the diaphragm and terminates below [id number]. The cardiomediastinal contours are within stable. There is bilateral basilar atelectasis. No pneumothorax. No pleural effusion. 2. Chest radiograph 08/25/2020 at 10:18 PM The endotracheal tube is approximately 2.5 cm above the tricia. An esophagogastric tube tip is peripyloric and side-port is in the gastric body. The cardiomediastinal contours are unchanged. There is atherosclerotic calcification of the aortic knob. There is mild right basilar atelectasis. No pleural effusion. No pneumothorax. Dictated by: Eleazar Avina M.D. The radiology attending physician has personally reviewed this study, and had reviewed and/or edited this written report and agrees with it. Electronically signed by: Favian Mcmahan M.D. XR Chest 1 View Narrative: EXAMINATION: 1. 1 view chest radiograph 2. 1 view chest radiograph Impression: 1. Chest radiograph 08/25/2020 at 8:01 PM compared to 08/24/2020. An endotracheal tube is noted, the tricia is difficult to visualize. An esophagogastric tube courses caudally below the diaphragm and terminates below [id number]. The cardiomediastinal contours are within stable. There is bilateral basilar atelectasis. No pneumothorax. No pleural effusion. 2. Chest radiograph 08/25/2020 at 10:18 PM The endotracheal tube is approximately 2.5 cm above the tricia. An esophagogastric tube tip is peripyloric and side-port is in the gastric body. The cardiomediastinal contours are unchanged. There is atherosclerotic calcification of the aortic knob. There is mild right basilar atelectasis. No pleural effusion. No pneumothorax. Dictated by: Eleazar Avina M.D. The radiology attending physician has personally reviewed this study, and had reviewed and/or edited this written report and agrees with it. Electronically signed by: Favian Mcmahan M.D. XR Abdomen Ap 1 Vw Narrative: EXAMINATION: Abdomen, one view. HISTORY: Check tube placement. COMPARISON: 08/23/2020 Impression: A single view of the abdomen is submitted for evaluation. Distal tip and side-port of the gastric tube are within the gastric body. Temperature probe Guerrero catheter within the urinary bladder. Visualized loops of bowel are nondilated. Radiopaque object overlies the left greater trochanter likely external to patient. Dictated by: Jono Garnett M.D. The radiology attending physician has personally reviewed this study, and had reviewed and/or edited this written report and agrees with it. Electronically signed by: Lakia Kenny M.D. Assessment/Plan Vitamin D deficiency Assessment & Plan Cont daily replacement GERD (gastroesophageal reflux disease) Assessment & Plan Continue??Home Pantoprazole 40mg Daily Iron deficiency anemia Assessment & Plan Presented with Hgb in 8s without explanation, MCV high 70s, iron profile 13, ferritin 28, Tsat 4%, now s/p 1U PRBCs and 1 x Ferrlecit. - Consider age-appropriate screening and iron supplementation on outpatient basis - started fe sulf bid 08/28 Thoracic spine fracture (CMS/HCC) Assessment & Plan Suspect secondary to fall 3 months ago where patient was reported to have sustained spinal fractures. Has been taking opiates for pain at home. 08/23 CT Abd/Pelv Moderate to Severe Compression fractures at T11 and T12. -PT/OT -Vit d replacement -Consider bone health OP evaluation HTN (hypertension) Assessment & Plan HCTZ 12.5mg Oral Daily, Metoprolol Succinate 100mg Daily.?? Chronic obstructive pulmonary disease with acute exacerbation (CMS/HCC) Assessment & Plan Continue Home??Monteleukast 10mg Daily. Cont O2- baseline 3 L, wean as able Start ICA/LABA, LAMA Acute hypercapnic respiratory failure (CMS/HCC) Assessment & Plan 2/2 copd exacerbation Sp antibiotics and 5 days of prednisone Wean O2 as able * Acute on chronic respiratory failure with hypoxia and hypercapnia (CMS/HCC) Assessment & Plan Presented w/hypercapnic respiratory failure likely to COPD Exacerbation and possible PNA. Initiallyon BIPAP then intuabted. Unclear precipitant but some [...] 40mg (08/27-08/28) -??Albuterol and Ipratropium HFA q4hrs NT COORDINATOR * Aimee Hawley OT - 08/29/2020 11:20 AM CST Occupational Therapy Occupational Therapy Initial Assessment NOTE:This is a summary note for the giron assessments completed during the evaluation session. For full details, review chart review for all flowsheets documented on by this Occupational Therapist on this date. Vital signs documented in vital signs flowsheet. Assessment Assessment Prognosis: Good Problem List: Decreased cognition, Decreased endurance, Decreased functional mobility, Decreased ADL independence, Decreased IADL independence, Decreased safe judgment during ADL, Decreased balance, Decreased frequency/variety of movement(fatigue) Barriers to Discharge: Decreased caregiver support, Cognition(Fall risk) Plan Plan Plan: Plan of care initiated, If this is the last note, consider this the discharge summary OT Recommendation and Plan Recommendation/Plan OT Recommendation: [facility] OT Frequency: 2-3x/wk Comments: Patient would benefit from continued OT services to improve independence and endurance with ADLs/IADLs. Treatment/Interventions: ADL/IADL retraining, Bed mobility, Compensatory technique education, Endurance training, Equipment eval/education, Functional transfer training, Cognitive retraining OT - Next Appointment: 08/31/20 OT - OK to Discharge: No OT Evaluation Complete: Yes General Information General Chart Reviewed: Yes Session Type: Evaluation OT Received On: 08/29/20 Safe Environment: Arm Band Checked, Call Light within Reach, Patient found in Supine, Bed in LowestPosition with Wheels locked(Pt left lying supine.) Subjective: Agreeable to Therapy Subjective Comment: Patient stated that she was feeling tired after bed mobility and functional mobility. Family/Caregiver Present: No Occupational Therapy-Patient Goal: Patient would like therapy to help her increase strength and ability to complete tasks. Precautions Precautions Precautions: Fall risk Precaution Comments: Verbally reviewed spinal precuation of no bending and no lifting of over 30IBs. Home Living Home Living Type of Home: House Home Layout: One level, Basement, Performs ADLs on one level Home Access: Stairs to enter with rails, Stairs to enter without rails Entrance Stairs-Rails: Both Entrance Stairs-Number of Steps: 8 Bathroom Shower/Tub: Tub/shower unit Bathroom Toilet: Standard Bathroom Equipment: (none) Home Mobility Equipment: Walker Home ADL Equipment: (none) Additional Comments: Patient stated that she has a walker for community mobility but rarely uses it. Prior Function Prior Function Level of [place]: Needs assistance with ADLs, Needs assistance with homemaking, Independent functional transfers, Independent with ambulation Lives With: (- unable to help d/t mental health.) Receives Help From: Family(Pt's daughter can assist legal department manager.) Driving: No Mode of Transportation: Driven by others(Driven by daughter) ADL Assistance: Needs assistance Bathing: (Daughter assists with task) Dressing: (Daughter assists with task.) Grooming: Independent Toileting: Independent Feeding: Independent Instrumental ADL (IADL) Assistance: Needs assistance(Client receives assistance with all IADLs fromdaughter.) School Type: (Pt reports 2 years of college education.) Leisure : (none reported) Fall within the last 6 months: Yes Fall within the last 6 months comment: Client reports one fall after walking into the wall at night, approximately 5 months ago resulting in spinal fractures. Prior Function Comments: Client reports a decrease in functional mobility and independence since her back injury due to the fall. Activities of Daily Living Grooming Grooming: Where assessed: Standing at sink Grooming: Level of assistance: (close supervision for safety) Grooming: Assistance with: (4/4 components completed; supervision for safety) LE Dressing LE Dressing: Where assessed: Edge of bed LE Dressing: Level of assistance: Maximum Assist LE Dressing: Assistance with: Don/doff R sock, Don/doff L sock, Thread RLE into pants, Thread LLE into pants, Thread RLE into underwear, Thread LLE into underwear, Pull up over hips(2/12 components completed; client maintained leg position) Pain Pain Assessment Pain Assessment: No/denies pain Cognition Cognition Arousal/Alertness: Alert, Appropriate responses to stimuli Attention Span: Attends with cues to redirect Memory: Decreased short term memory Current communication: Appears Intact Orientation : Oriented X4 (person, place, time, situation) Following Commands: Follows one step commands without difficulty Safety Judgment: Decreased awareness of need for safety(Client unaware of spinal precaution of no bending.) Awareness of Errors: Decreased awareness of errors(Client unaware of spinal precaution of no bending.) Insight: Fully aware of deficits(Client noted decreased memory, thinking, and mobility.) Problem Solving: Assistance required to identify errors made, Assistance required to generate solutions, Assistance required to implement solutions Compliance/Behavior: Easy to engage Perseveration: Not present [place] Cognitive Assessment (MOCA) MOCA Version: Version 3 Visuospatial/Executive: 1 Namin Memory: Memory not scored Attention: 1 Language: 0 Abstraction: 1 Delayed Recall: 0 Orientation: 6 Education Level: Education Greater than 12 years MOCA Total Score: 12 Score Evaluation: 0-25 Impaired Balance Static Sitting Balance Static Sitting-Balance Support: Bilateral upper extremity supported Static Sitting-Sitting Surface: Bed Static Sitting-Level of Assistance: Distant supervision Dynamic Sitting Balance Dynamic Sitting-Balance Support: No upper extremity supported Dynamic Sitting-Balance: Forward lean, Reaching for objects Dynamic Sitting-Sitting Surface: Bed Dynamic Sitting-Level of Assistance: Close supervision(d/t safety concerns) Static Standing Balance Static Standing-Balance Support: No upper extremity supported Static Standing-Standing Surface: Floor Static Standing-Level of Assistance: Close supervision Static Standing-Comment/# of Minutes: Close supervision provided due to some decreased steadiness upon arising. Dynamic Standing Balance Dynamic Standing-Balance Support: No upper extremity supported Dynamic Standing-Balance: Forward lean, Lateral lean, Reaching for objects, Reaching across midline Dynamic Standing-Level of Assistance: Close supervision Dynamic Standing-Comments: Close supervision d/t safety concerns while reaching for items. Transfers Transfers Transfer: Yes(A gait belt was used for all functional mobility and ADLs.) Transfer 1 Transfer From 1: Sit Transfer Type 1: To and from Transfer to 1: Stand Technique 1: Sit to stand, Stand to sit Transfer Device 1: No device Transfer Level of Assistance 1: (close supervision) Trials/Comments 1: Client required close supervision d/t safety concerns because of some decreased steadiness upon standing. Transfers 2 Trials/Comments 2: Client completed functional mobility in the room to and from the sink to complete grooming while standing. Client required close supervision during out of bed mobility due to safety concerns. Bed Mobility Bed Mobility Bed Mobility: Yes Bed Mobility 1 Bed Mobility From 1: Supine Bed Mobility Type 1: To and from Bed Mobility to 1: Edge of bed Level of Assistance 1: Minimum Assist Bed Mobility Comments 1: Client required Min Assist to elevate trunk while transitioning from supine to EOB. HOB was elevated to about 30 degrees. Client stated that she was fatigued and hot after completing bed mobility. RUE Assessment RUE Assessment RUE Assessment: Within Functional Limits LUE Assessment LUE Assessment LUE Assessment: Within Functional Limits Other Comments Other Comments Comments: Patient would benefit from continued OT services to improve independence and endurance with ADLs/IADLs. OT Goals Multi-Disciplinary Problems (from Occupational Therapy) Active Problems Problem: Dressings Lower Extremities Start Date: 08/29/20 Goal Start Date End Date STG - Patient to complete lower body dressing 08/29/20 -- Goal Details: W/ mod assist. Problem: Transfers Start Date: 08/29/20 Goal Start Date End Date STG - Patient will perform toilet transfer 08/29/20 -- Goal Details: W/ close supervision. Problem: Precautions Start Date: 08/29/20 Goal Start Date End Date STG - Patient will demonstrate precautions consistently during ADL tasks/functional mobility. 08/29/20 -- Goal Details: W/ close supervision. Problem: OT Misc Start Date: 08/29/20 Goal Start Date End Date OT LTG - Misc 2 08/29/20 -- Goal Details: Client to complete functional mobility and ADLs with Mod I. For questions, please review the treatment team and contact the occupational therapist currently assigned to this patient. If an occupational therapist is not assigned to this patient, please call [phone]. NT COORDINATOR * Brianna Guerra PT - 08/28/2020 8:30 AM CST Physical Therapy Physical Therapy Initial Assessment NOTE: This is a summary note for the giron assessments completed during the evaluation session. For full details, review chart review for all flowsheets documented on by this physical therapist on thisdate. Vital signs documented in vital signs flowsheet. Assessment Assessment Prognosis: Fair Problem List: Decreased strength, Decreased endurance, Impaired balance, Decreased mobility, Decreased safety awareness Problem List Comments: PT Diagnosis: Acute resp failure requiring inubation results in above listedproblems and impairments which prevent full participation in home and community mobility. Barriers to Discharge: Current Mobility Status, Decreased caregiver support, Home environment challenged Plan Plan Plan : If this is the last note, consider this the discharge summary, Plan of care initiated PT Recommendation and Plan Recommendation/Plan PT Recommendation/Plan: [facility] PT Frequency: 2-3x/wk Treatment/Interventions: Balance Training, Bed mobility, Endurance training, Equipment eval/education, Functional activity, Functional transfer training, Gait training, Therapeutic activity, Therapeutic exercise, Transfer training, Strengthening PT - Next Appointment: 08/31/20 PT Evaluation Complete: Yes General Information General Chart Reviewed: Yes Session Type: Evaluation PT Received On: 08/28/20 Safe Environment: Arm Band Checked, Patient found in Supine, Overbed Table within Reach, Bed in Lowest Position with Wheels locked Subjective: Agreeable to Therapy Additional Pertinent History: HPI: P/w 08/23 with L sided weakness and dyspnea; Acute hypercapnic resp failure PMH: COPD, HTN, pHTN, recent T spine fxs (~3 months ago) per CT mod-severe compression Fxs T11-12 Family/Caregiver Present: No Physical Therapy-Patient Goal: Pt. reports he goal is to get stronger Prior Function Prior Function Level of [place]: Independent functional transfers, Independent with ambulation(Household mobility only ) Lives With: Spouse(- but has mental health problems and unable to assist) Receives Help From: Family(Daughter and grandaughter- legal department manager assist ) Fall within the last 6 months: Yes Fall within the last 6 months comment: 1(Fall resulting in spinal fxs; reports she was sleepwalking ) Prior Function Comments: Pt. reports that prior to fall/back injury ~3 months ago she was independent with all mobility. Since then she has been limited by pain when she is up for prolong periords. Now her daughter/grandaughter assist with household work and getting groceries. Home Living Home Living Type of Home: House Home Layout: One level Home Access: Stairs to enter with rails, Stairs to enter without rails Entrance Stairs-Rails: Both Entrance Stairs-Number of Steps: 8(3 without rail then 5 with B handrials ) Home Mobility Equipment: 4-Wheeled walker(But has not used since 2015 ) Precautions Precautions Precautions: Fall risk, Aspiration Precaution Comments: PPE worn by PT- Surgical mask, eye protection, and gloves. Pain Pain Assessment Pain Assessment: 0-10 Pain Score: 7 Pain Location: Head Pain Interventions: RN Notified(Sherrill RN notified. ) Cognition Cognition Arousal/Alertness: Alert, Appropriate responses to stimuli Orientation : Oriented X4 (person, place, time, situation) Following Commands: Follows one step commands without difficulty Safety Judgment: Decreased awareness of need for safety 6 Clicks Basic Mobility - 6 Click [...] currently need: Walk in hospital room?: A lot How much help from another person does the patient currently need: Climbing 3-5 steps with a railing?: A lot Total 6 Click Score (range 6-24): 16 Score Interpretation: 16 Bed Mobility Bed Mobility Bed Mobility: Yes Bed Mobility 1 Bed Mobility From 1: Supine Bed Mobility Type 1: To and from Bed Mobility to 1: Edge of bed Level of Assistance 1: Distant Supervision Bed Mobility Comments 1: Supervision for safety Transfers Transfers Transfer: Yes Transfer 1 Transfer From 1: Sit Transfer Type 1: To and from Transfer to 1: Stand Transfer Device 1: Hand held assist Transfer Level of Assistance 1: Contact Guard Assist Trials/Comments 1: Assist to maintain balance (Once standing EOB, Pt was able to take 2-3 steps to HOB ) Transfers 2 Transfer From 2: Bed Transfer Type 2: To Transfer to 2: Commode-standard Transfer Device 2: Hand held assist Transfer Level of Assistance 2: Contact Guard Assist Trials/Comments 2: Assist to maintain balance. 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 declined 2/2 fatigue and poor sleep overnight ) Stairs Curbs RLE Assessment RLE Assessment RLE Assessment: Within Functional Limits LLE Assessment LLE Assessment LLE Assessment: Within Functional Limits Equipment Used Other Comments Other Comments Other PT Comments: After objective evaluation discussed PT POC and DC recommendations. Pt. verbalized understanding. Reports I can't go home like this. . She also was educated/encouraged to spend time out of bed for pulmonary status. For questions, please review the treatment team and contact the PT or LABORATORY MONITOR currently assigned to this patient. If a physical therapy clinician is not assigned to this patient, please call [phone]. PT Goals Multi-Disciplinary Problems (from Physical Therapy) Active Problems Problem: Mobility Start Date: 08/28/20 Goal Start Date End Date STG - Patient will ambulate 08/28/20 -- Problem: Transfers Start Date: 08/28/20 Goal Start Date End Date STG - Patient to transfer to and from sit to supine 08/28/20 -- Goal Start Date End Date STG - Patient will transfer sit to and from stand 08/28/20 -- Problem: PT Misc Start Date: 08/28/20 Goal Start Date End Date PT LTG - Misc 1 08/28/20 -- NT COORDINATOR * Joe Geronimo MD - 08/28/2020 12:49 AM CST Daily Progress Note Division of Hospital Medicine Transfer from ICU Name: Phoebe Hillman Today: August 27, 2020 : 1940 Age: 79 y.o. female Admit: 08/23/2020 Bed: [id number] Subjective Chief complaint: hypoxia HPI/MICU course: 79 y.o.??female??who has a PMH of pHTN, COPD (b/l 3L O2), HTN and GERD??who presented for??dyspnea and L sided weakness who was BIBEMS as Code Stroke requiring BiPAP on 08/22. Patientwas having difficulty waking up that morning and when evaluated by EMS had left sided-weakness withvomit around her mouth. On presentation patient was??afebrile, normotensive, P??86, RR??17, and SpO2??94%??and dyspneic with increased WOB and diffuse wheezing noted to have mild abdominal distention. Patient was evaluated by Neurology NIHSS 7 on admission but non-focal. hCT showed cerebral atrophy. She was NO-GO for tPA as presenting outside window and did not undergo CTA/CTP due to thought this was a stroke mimic in the setting of toxic-metabolic derangements. Labs were notable for WBC 7.2. VBG 7.18 >125 36. UA with 1+ protein, trace bacteria, no LE or nitrite. COVID Negative. CXR showed small lung volumes and patchy airspace opacities throughout the right lung.CT Abd/Pelv with changes of aspiration in RLL and small R pleural effusion. Non-specific hypoattentuation in the R kidney that can be seen in s/o pyelonephritis. Mod to severe compression fracture of T11 and T12. EKG NSR and no significant change from 2015. She was given Vanc/Cefe/Azithro, Methyprednisolone and DuoNebs for presumed aspiration Pneumonia/COPD exacerbation and placed on BiPAP given CO2 >125. ??Patient was admitted to MICU for further management and evaluation of patient's acute hypercapneic respiratory failure requiring BiPAP. ?? On arrival to MICU patient was on BiPAP at 24/10 pulling low TVs so she was subsequently intubated.Patient was successfully extubated to BiPAP on 08/26 and then weaned to 3L NC at time of transfer. Abx were narrowed to CTX as all cultures have returned negative to date. Interval History: Upon arrival to floor patient reports feeling well, talking comfortably on the phone without increased effort. No complaints. Objective Medications: Scheduled: ??? albuterol HFA, 2 puff, inhalation, Q4H CHET (RT) ??? busPIRone, 10 mg, oral, BID ??? cefTRIAXone, 1,000 mg, intravenous, Q24H CHET ??? enoxaparin, 40 mg, subcutaneous, Daily-2100 ??? hydroCHLOROthiazide, 12.5 mg, oral, Daily ??? ipratropium, 2 puff, inhalation, Q4H CHET (RT) ??? metoprolol (LOPRESSOR) tablet/capsule, 25 mg, oral, Once ??? [START ON 08/28/2020] metoprolol XL, 100 mg, oral, Daily ??? montelukast, 10 mg, oral, Nightly ??? pantoprazole, 40 mg, intravenous, Daily ??? polyethylene glycol, 17 g, oral, BID ??? [START ON 08/28/2020] predniSONE, 40 mg, oral, Daily Infusions: PRN: ??? acetaminophen ??? fentaNYL ??? LORazepam ??? oxyCODONE ??? ramelteon ??? senna-docusate Vitals: 24hr Min/Max: Temp Min: 36.4 ??C (97.5 ??F) Max: 38 ??C (100.4 ??F) Pulse Min: 46 Max: 139 BP Min: 142/57 Max: 186/98 Resp Min: 14 Max: 29 SpO2 Min: 88 % Max: 100 % Most Recent: Vitals: 08/27/20 1850 BP: (!) 186/98 Pulse: (!) 126 Resp: 18 Temp: 37 ??C (98.6 ??F) SpO2: 94% Intake/Output Summary (Last 24 hours) at 08/27/2020 1931 Last data filed at 08/27/2020 1715 Gross per 24 hour Intake 513.48 ml Output 1835 ml Net -1321.52 ml Physical Exam Constitutional: General: She is not in acute distress. HENT: Head: Normocephalic and atraumatic. Nose: Nose normal. Mouth/Throat: Mouth: Mucous membranes are moist. Pharynx: Oropharynx is clear. Eyes: Extraocular Movements: Extraocular movements intact. Conjunctiva/sclera: Conjunctivae normal. Pupils: Pupils are equal, round, and reactive to light. Cardiovascular: Rate and Rhythm: Normal rate and regular rhythm. Pulses: Normal pulses. Heart sounds: Normal heart sounds. No murmur. No friction rub. No gallop. Pulmonary: Effort: Pulmonary effort is normal. Breath sounds: Normal breath sounds. Abdominal: General: There is no distension. Palpations: Abdomen is soft. Tenderness: There is no abdominal tenderness. Musculoskeletal: General: No swelling or tenderness. Right lower leg: No edema. Left lower leg: No edema. Skin: General: Skin is warm and dry. Neurological: General: No focal deficit present. Mental Status: She is alert and oriented to person, place, and time. Psychiatric: Mood and Affect: Mood normal. Behavior: Behavior normal. Lab/Diagnostic Review: Recent Results (from the past 36 hour(s)) Blood gas, venous Collection Time: 08/26/20 8:43 PM Result Value Ref Range pH, Venous See Comment 7.32 - 7.43 PCO2, Venous See Comment 40 - 50 mmHg PO2, Venous See Comment HCO3 Venous, Calculated See Comment 20 - 30 BE, venous See Comment Type and screen Collection Time: 08/26/20 8:43 PM Result Value Ref Range Sheng, indirect Negative ABO Rh A Positive CBC with auto differential Collection Time: 08/26/20 8:43 PM Result Value Ref Range WBC 9.4 3.8 - 9.9 K/cumm Hgb 10.3 (L) 11.9 - 15.5 g/dL Hct 34.9 (L) 35.6 - 45.5 % Plt 254 150 - 400 K/cumm MPV 10.6 9.1 - 12.3 fL RBC 4.49 3.90 - 5.20 M/cumm MCV 77.7 (L) 81.3 - 96.4 fL MCH 22.9 (L) 27.1 - 33.3 pg MCHC 29.5 (L) 32.3 - 35.7 g/dL RDW CV 19.4 (H) 11.1 - 14.9 % RDW SD 53.1 (H) 35.7 - 48.1 fL NRBC abs 0.00 0.00 - 0.01 K/cumm Basic metabolic panel Collection Time: 08/26/20 8:43 PM Result Value Ref Range Sodium 140 135 - 145 mmol/L Potassium, pl 4.2 3.3 - 4.9 mmol/L Chloride 98 97 - 110 mmol/L CO2 33 (H) 22 - 32 mmol/L Anion gap 9 2 - 15 mmol/L BUN 14 8 - 25 mg/dL Creatinine 0.46 (L) 0.60 - 1.10 mg/dL Glucose 110 70 - 199 mg/dL Calcium 9.5 8.5 - 10.3 mg/dL Magnesium Collection Time: 08/26/20 8:43 PM Result Value Ref Range Magnesium 2.1 1.4 - 2.5 mg/dL Phosphorus Collection Time: 08/26/20 8:43 PM Result Value Ref Range Phosphorus, pl 3.9 2.3 - 4.5 mg/dL Differential, auto Collection Time: 08/26/20 8:43 PM Result Value Ref Range Neutrophil abs 7.9 (H) 1.7 - 6.5 K/cumm Imm gran abs 0.1 0.0 - 0.1 K/cumm Lymphocyte abs 0.8 0.8 - 3.3 K/cumm Monocyte abs 0.7 0.2 - 0.8 K/cumm Eosinophil abs 0.0 0.0 - 0.5 K/cumm Basophil abs 0.0 0.0 - 0.1 K/cumm Neutrophil pct 84.1 % Imm gran pct 0.5 % Lymphocyte pct 8.3 % Monocyte pct 7.0 % Eosinophil pct 0.0 % Basophil pct 0.1 % Blood gas, venous Collection Time: 08/27/20 10:01 AM Result Value Ref Range pH, Venous 7.36 7.32 - 7.43 PCO2, Venous 59 (H) 40 - 50 mmHg PO2, Venous 54 mmHg HCO3 Venous, Calculated 34 (H) 20 - 30 mmol/L BE, venous 6 mmol/L I have reviewed the laboratory results. Imaging Results: XR Chest 1 View (Portable) Narrative: EXAMINATION: 1. 1 view chest radiograph 2. 1 view chest radiograph Impression: 1. Chest radiograph 08/25/2020 at 8:01 PM compared to 08/24/2020. An endotracheal tube is noted, the tricia is difficult to visualize. An esophagogastric tube courses caudally below the diaphragm and terminates below [id number]. The cardiomediastinal contours are within stable. There is bilateral basilar atelectasis. No pneumothorax. No pleural effusion. 2. Chest radiograph 08/25/2020 at 10:18 PM The endotracheal tube is approximately 2.5 cm above the tricia. An esophagogastric tube tip is peripyloric and side-port is in the gastric body. The cardiomediastinal contours are unchanged. There is atherosclerotic calcification of the aortic knob. There is mild right basilar atelectasis. No pleural effusion. No pneumothorax. Dictated by: Eleazar Avina M.D. The radiology attending physician has personally reviewed this study, and had reviewed and/or edited this written report and agrees with it. Electronically signed by: Favian Mcmahan M.D. XR Chest 1 View Narrative: EXAMINATION: 1. 1 view chest radiograph 2. 1 view chest radiograph Impression: 1. Chest radiograph 08/25/2020 at 8:01 PM compared to 08/24/2020. An endotracheal tube is noted, the tricia is difficult to visualize. An esophagogastric tube courses caudally below the diaphragm and terminates below [id number]. The cardiomediastinal contours are within stable. There is bilateral basilar atelectasis. No pneumothorax. No pleural effusion. 2. Chest radiograph 08/25/2020 at 10:18 PM The endotracheal tube is approximately 2.5 cm above the tricia. An esophagogastric tube tip is peripyloric and side-port is in the gastric body. The cardiomediastinal contours are unchanged. There is atherosclerotic calcification of the aortic knob. There is mild right basilar atelectasis. No pleural effusion. No pneumothorax. Dictated by: Eleazar Avina M.D. The radiology attending physician has personally reviewed this study, and had reviewed and/or edited this written report and agrees with it. Electronically signed by: Favian Mcmahan M.D. XR Abdomen Ap 1 Vw Narrative: EXAMINATION: Abdomen, one view. HISTORY: Check tube placement. COMPARISON: 08/23/2020 Impression: A single view of the abdomen is submitted for evaluation. Distal tip and side-port of the gastric tube are within the gastric body. Temperature probe Guerrero catheter within the urinary bladder. Visualized loops of bowel are nondilated. Radiopaque object overlies the left greater trochanter likely external to patient. Dictated by: Jono Garnett M.D. The radiology attending physician has personally reviewed this study, and had reviewed and/or edited this written report and agrees with it. Electronically signed by: Lakia Kenny M.D. Assessment/Plan: * Acute on chronic respiratory failure with hypoxia and hypercapnia (CMS/HCC) Assessment & Plan Presented w/hypercapnic respiratory failure likely to COPD Exacerbation and possible PNA. Initiallyon BIPAP then intuabted. Unclear precipitant but some [...] Prednisone 60mg daily (08/23-08/26), decreased to 40mg (08/27) -??Albuterol and Ipratropium HFA q4hrs Acute encephalopathy Assessment & Plan Likely toxic-metabolic in etiology in the setting of above respiratory failure/hypercapnia. Baseline she is A&O x3. 08/23?Ammonia 52H, TSH 0.26L, T4 1.18, Lactate 0.5 -??hCT NAIA - UDS with benzos and oxycodone. -??Continue monitor GERD (gastroesophageal reflux disease) Assessment & Plan Continue??Home Pantoprazole 40mg Daily Iron deficiency anemia Assessment & Plan Presented with Hgb in 8s without explanation, MCV high 70s, iron profile 13, ferritin 28, Tsat 4%, now s/p 1U PRBCs and 1 x Ferrlecit. - Consider age-appropriate screening and iron supplementation on outpatient basis - No additional iron given ongoing infection. Thoracic spine fracture (CMS/HCC) Assessment & Plan Suspect secondary to fall 3 months ago where patient was reported to have sustained spinal fractures. Has been taking opiates for pain at home. 08/23 CT Abd/Pelv Moderate to Severe Compression fractures at T11 and T12. - Continue to monitor HTN (hypertension) Assessment & Plan HCTZ 12.5mg Oral Daily, Metoprolol Succinate 100mg Daily.?? Chronic obstructive pulmonary disease with acute exacerbation (CMS/HCC) Assessment & Plan Continue Home??Monteleukast 10mg Daily. Treat as above Best family contact: Kim Dodson (daughter): [phone] Joe Geronimo MD [phone] NT COORDINATOR NT COORDINATOR * Jarred Forte MD - 08/27/2020 12:31 PM CST Interval history: Extubated yesterday to NPPV, weaned off on NC. Doing well. Exam: Gen-nad, no dyspnea with phonation feeling better. Eyes-pupils equal reactive to light OP-MMM CV-regular, s1s2 Lungs-CTAB decreased at the bases Abd-Soft, Nd, NT Ext-no edema, warm Neuro-awake alert interactive MSK-no joint effusion Skin: no r/b/p I have independently reviewed available data, imaging and imaging reports. Scheduled Meds: ??? albuterol HFA, 2 puff, inhalation, Q4H CHET (RT) ??? busPIRone, 10 mg, oral, BID ??? cefTRIAXone, 1,000 mg, intravenous, Q24H CHET ??? enoxaparin, 40 mg, subcutaneous, Daily-2100 ??? hydroCHLOROthiazide, 12.5 mg, oral, Daily ??? ipratropium, 2 puff, inhalation, Q4H CHET (RT) ??? montelukast, 10 mg, oral, Nightly ??? pantoprazole, 40 mg, intravenous, Daily ??? polyethylene glycol, 17 g, oral, BID ??? [START ON 08/28/2020] predniSONE, 40 mg, oral, Daily Continuous Infusions: PRN Meds:.??? acetaminophen ??? fentaNYL ??? LORazepam ??? oxyCODONE ??? ramelteon ??? senna-docusate Principal Problem: Acute hypercapnic respiratory failure (CMS/HCC) Active Problems: Chronic obstructive pulmonary disease with acute exacerbation (CMS/HCC) Hypertension Encephalopathy acute Assessment/plans: 79 YO female with a history of HTN, COPD, pHTN, gerd who presents with L weakness, abdominal pain and vomiting found to be in mixed hypoxemic and hypercarbic respiratory failure. 1. AHRF and Ahypercarbixc respiratory failure a. Steroids, BDs, antibiotics b. FBG net negative c. PRN medications for anxiety 2. COPD: a. BD and steroids with azithro b. pred 40 3. Pneumonia a. Empiric antibiotics, f/u cx results 4. HTN: a. HCTZ 5. Compresion fracture: old, pain control 6. Abdominal Pain: a. No ttp on exam b. Labs and ct unremarkable c. CTM 7. ADAT 8. GI/DVI pplx 9. TTF NT COORDINATOR * Phyllis Li MD - 08/27/2020 6:49 AM CST MICU Progress Note Patient: Phoebe Hillman Bed: [id number] Attending: Glenn Thrasher MD Identifying Information: Phoebe Hillman is a 79 y.o. female with PMH of pHTN, COPD (b/l 3L O2), HTN and GERD??who presentedfor??dyspnea and L sided weakness who was BIBEMS as Code Stroke requiring BiPAP, intubated 08/23 andextubated 08/26, now weaned to 3L NC SUBJECTIVE Interval Events: - Did not tolerate BiPAP mask overnight placed on 4L and tolerated well; VBG 7.36 66 39 - Successfully weaned off Precedex this AM MEDICATIONS Current Facility-Administered Medications Medication Dose Route Frequency Last Rate Last Admin ??? acetaminophen (TYLENOL) tablet 650 mg 650 mg oral Q4H PRN ??? albuterol HFA (PROVENTIL HFA,VENTOLIN HFA,PROAIR HFA) 90 mcg/actuation inhaler 2 puff 2 puff inhalation Q4H CHET (RT) 2 puff at 08/27/20 1108 ??? busPIRone (BUSPAR) tablet 10 mg 10 mg oral BID ??? cefTRIAXone (ROCEPHIN) 1,000 mg/10 mL in sterile water (premix) 1,000 mg 1,000 mg intravenous Q24H CHET 1,000 mg at 08/26/202038 ??? enoxaparin (LOVENOX) syringe 40 mg 40 mg subcutaneous Daily-2100 40 mg at 08/26/202038 ??? fentaNYL (SUBLIMAZE) bolus from bag 25 mcg 25 mcg intravenous Q1H PRN 25 mcg at 08/25/20 2339 ??? hydroCHLOROthiazide (HYDRODIURIL) tablet 12.5 mg 12.5 mg oral Daily ??? ipratropium (ATROVENT HFA) 17 mcg/actuation inhaler 2 puff 2 puff inhalation Q4H CHET (RT) 2 puff at 08/27/20 1108 ??? LORazepam (ATIVAN) tablet 1 mg 1 mg oral Nightly PRN ??? montelukast (SINGULAIR) tablet 10 mg 10 mg oral Nightly ??? oxyCODONE (ROXICODONE) tablet 5 mg 5 mg feeding tube QID PRN ??? pantoprazole (PROTONIX) injection 40 mg 40 mg intravenous Daily 40 mg at 08/27/20 0825 ??? polyethylene glycol (MIRALAX) packet 17 g 17 g oral BID ??? [START ON 08/28/2020] predniSONE (DELTASONE) tablet 40 mg 40 mg oral Daily ??? ramelteon (ROZEREM) tablet 8 mg 8 mg oral Nightly PRN 8 mg at 08/26/202226 ??? senna-docusate (PERICOLACE) 8.6-50 mg per tablet 1 tablet 1 tablet feeding tube BID PRN OBJECTIVE Vitals: Arrival Vitals Temp 08/23/20 1855 (!) 35.8 ??C (96.5 ??F) Pulse 08/23/20 1800 86 Resp 08/23/20 1820 17 BP 08/23/20 1754 131/73 SpO2 08/23/20 1800 94 % Temp src 08/23/20 1855 Axillary Heart Rate Source 08/23/20 2100 Monitor Patient Position 08/23/20 2100 HOB 30 degrees BP Location 08/23/20 2100 Left arm FiO2 (%) 08/23/20 1800 80 % 24hr Min/Max: Temp Min: 36.4 ??C (97.5 ??F) Max: 38 ??C (100.4 ??F) Pulse Min: 46 Max: 128 BP Min: 131/61 Max: 185/114 Resp Min: 14 Max: 29 SpO2 Min: 97 % Max: 100 % FiO2 (%) Min: 30 % Max: 40 % Current Vitals: BP 147/50 (BP Location: Left arm, Patient Position: Lying) Pulse 61 Temp 36.6 ??C (97.9 ??F) (Bladder) Resp 18 Ht 162.6 cm (5' 4.02 ) Wt 65 kg (143 lb 4.8 oz) SpO2 100% BMI 24.59 kg/m?? Intake/Output: I/O last 2 completed shifts: In: 432.8 [I.V.:352.8; NG/GT:80] Out: 1000 [Urine:1000] I/O this shift: In: 26.5 [I.V.:16.5; IV Piggyback:10] Out: 125 [Urine:125] LDA: Urethral Catheter Temperature probe (Active) Placement Date/Time: 08/23/201912 Catheter Type: Temperature probe Catheter Balloon Size: 10 mL Urine Returned: Yes Number of days: 3 Vent settings for last 24 hours: Adult Vent Mode: Pressure support Ventilation FiO2 (%): [30 %-40 %] 40 % S RR: [14] 14 S VT: [400 mL] 400 mL PEEP/CPAP/EPAP (cm H2O): [5 cm H20] 5 cm H20 Pressure Support (cm H2O): [5 cm H20] 5 cm H20 MAP (cmH2O): [17] 17 Hemodynamic parameters for last 24 hours: Physical Exam GENERAL: Well-developed, laying in bed and in no acute distress. HENT: NECK: Normocephalic, atraumatic, anicteric sclera. Neck is supple and non-tender. FROM. CARDIAC: Normal rate and regular rhythm. Normal S1 and S2. No murmurs or gallops. No peripheral edema. PULM: Coarse breath sounds bilaterally. Non-labored respirations. ABDOMEN: Soft, nondistended, nontender. Positive bowel sounds. No guarding or rebound. EXTREMITIES: Cool. Peripheral pulses symmetric intact. SKIN: No rashes or bruising. NEURO: Alert and oriented. Follows 1 and 2 step commands. Spontaneously moves upper and lower extremities. PSYCH: Appropriate mood and affect. REVIEW OF LABORATORY DATA Laboratory review: Lab results in the last 24 hours: Recent Results (from the past 24 hour(s)) Blood gas, venous Collection Time: 08/26/20 8:43 PM Result Value Ref Range pH, Venous See Comment 7.32 - 7.43 PCO2, Venous See Comment 40 - 50 mmHg PO2, Venous See Comment HCO3 Venous, Calculated See Comment 20 - 30 BE, venous See Comment Type and screen Collection Time: 08/26/20 8:43 PM Result Value Ref Range Sheng, indirect Negative ABO Rh A Positive CBC with auto differential Collection Time: 08/26/20 8:43 PM Result Value Ref Range WBC 9.4 3.8 - 9.9 K/cumm Hgb 10.3 (L) 11.9 - 15.5 g/dL Hct 34.9 (L) 35.6 - 45.5 % Plt 254 150 - 400 K/cumm MPV 10.6 9.1 - 12.3 fL RBC 4.49 3.90 - 5.20 M/cumm MCV 77.7 (L) 81.3 - 96.4 fL MCH 22.9 (L) 27.1 - 33.3 pg MCHC 29.5 (L) 32.3 - 35.7 g/dL RDW CV 19.4 (H) 11.1 - 14.9 % RDW SD 53.1 (H) 35.7 - 48.1 fL NRBC abs 0.00 0.00 - 0.01 K/cumm Basic metabolic panel Collection Time: 08/26/20 8:43 PM Result Value Ref Range Sodium 140 135 - 145 mmol/L Potassium, pl 4.2 3.3 - 4.9 mmol/L Chloride 98 97 - 110 mmol/L CO2 33 (H) 22 - 32 mmol/L Anion gap 9 2 - 15 mmol/L BUN 14 8 - 25 mg/dL Creatinine 0.46 (L) 0.60 - 1.10 mg/dL Glucose 110 70 - 199 mg/dL Calcium 9.5 8.5 - 10.3 mg/dL Magnesium Collection Time: 08/26/20 8:43 PM Result Value Ref Range Magnesium 2.1 1.4 - 2.5 mg/dL Phosphorus Collection Time: 08/26/20 8:43 PM Result Value Ref Range Phosphorus, pl 3.9 2.3 - 4.5 mg/dL Differential, auto Collection Time: 08/26/20 8:43 PM Result Value Ref Range Neutrophil abs 7.9 (H) 1.7 - 6.5 K/cumm Imm gran abs 0.1 0.0 - 0.1 K/cumm Lymphocyte abs 0.8 0.8 - 3.3 K/cumm Monocyte abs 0.7 0.2 - 0.8 K/cumm Eosinophil abs 0.0 0.0 - 0.5 K/cumm Basophil abs 0.0 0.0 - 0.1 K/cumm Neutrophil pct 84.1 % Imm gran pct 0.5 % Lymphocyte pct 8.3 % Monocyte pct 7.0 % Eosinophil pct 0.0 % Basophil pct 0.1 % Blood gas, venous Collection Time: 08/27/20 10:01 AM Result Value Ref Range pH, Venous 7.36 7.32 - 7.43 PCO2, Venous 59 (H) 40 - 50 mmHg PO2, Venous 54 mmHg HCO3 Venous, Calculated 34 (H) 20 - 30 mmol/L BE, venous 6 mmol/L Radiology/Diagnostics Review: Imaging review: I have Radiology Impressions last 48 hours: Xr Abdomen Ap 1 Vw Result Date: 08/26/2020 A single view of the abdomen is submitted for evaluation. Distal tip and side- port of the gastric tube are within the gastric body. Temperature probe Guerrero catheter within the urinary bladder. Visualized loops of bowel are nondilated. Radiopaque object overlies the left greater trochanter likely external to patient. Dictated by: Jono Garnett M.D. The radiology attending physician haspersonally reviewed this study, and had reviewed and/or edited this written report and agrees with it. Electronically signed by: Lakia Kenny M.D. Xr Chest 1 View Result Date: 08/26/2020 1. Chest radiograph 08/25/2020 at 8:01 PM compared to 08/24/2020. An endotracheal tube is noted, the tricia is difficult to visualize. An esophagogastric tube courses caudally below the diaphragm andterminates below [id number]. The cardiomediastinal contours are within stable. There is bilateral basilar atelectasis. No pneumothorax. No pleural effusion. 2. Chest radiograph 08/25/2020 at 10:18PM The endotracheal tube is approximately 2.5 cm above the tricia. An esophagogastric tube tip is peripyloric and side-port is in the gastric body. The cardiomediastinal contours are unchanged. Thereis atherosclerotic calcification of the aortic knob. There is mild right basilar atelectasis. No pleural effusion. No pneumothorax. Dictated by: Eleazar Avina M.D. The radiology attending physician has personally reviewed this study, and had reviewed and/or edited this written report and agrees with it. Electronically signed by: Favian Mcmahan M.D. Xr Chest 1 View (portable) Result Date: 08/26/2020 1. Chest radiograph 08/25/2020 at 8:01 PM compared to 08/24/2020. An endotracheal tube is noted, the tricia is difficult to visualize. An esophagogastric tube courses caudally below the diaphragm andterminates below [id number]. The cardiomediastinal contours are within stable. There is bilateral basilar atelectasis. No pneumothorax. No pleural effusion. 2. Chest radiograph 08/25/2020 at 10:18PM The endotracheal tube is approximately 2.5 cm above the tricia. An esophagogastric tube tip is peripyloric and side-port is in the gastric body. The cardiomediastinal contours are unchanged. Thereis atherosclerotic calcification of the aortic knob. There is mild right basilar atelectasis. No pleural effusion. No pneumothorax. Dictated by: Eleazar Avina M.D. The radiology attending physician has personally reviewed this study, and had reviewed and/or edited this written report and agrees with it. Electronically signed by: Favian Mcmahan M.D. ASSESSMENT and PLAN Phoebe Hillman is a 79 y.o. female with PMH of pHTN, COPD (b/l 3L O2), HTN and GERD??who presentedfor??dyspnea and L sided weakness who was BIBEMS as Code Stroke requiring BiPAP, intubated 08/23 andextubated 08/26, now weaned to 3L NC. #Acute Hypercapnic Respiratory Failure Patient presenting in acute hypercapnic respiratory failure likely to COPD Exacerbation vs Aspiration PNA requiring intubation on 08/23 PM after arrival to the ICU due to increased WOB and altered mental status. Wheezes and crackles on exam. Unclear precipitant at this time though per chart review concern for polypharmacy in the setting of multiple benzo prescriptions (Clonazepam and Tenazepam) along with opiates. Given patient without risk factors for HAP will treat for CAP??and evaluate for other possible infectious causes. 08/23 VBG 7.16 >125 158 >> 7.17 125 41 >> 7.14 >125 31?UA 1+ protein, trace bacteria ?CXR Small lung volumes with patchy airspace opacities on the R. No pleural effusion. ?CXR post intubation with unchanged patchy airspace opacities. ETT in place 1cm above tricia and was pulled back 1 cm. -??RVP neg, Legionella Ag neg, COVID neg - MRSA nasal swab pending - BCx and trach asp Cx 08/23 NGTD -??Intubated 08/23;??Extubated 08/26 - Abx:??Vanc/Cefe (08/23); Azithro (08/23 - 08/25) Ceftriaxone (08/23 - 08/27) - Prednisone 60mg daily (08/23-08/26), decreased to 40mg (08/27) -??Albuterol and Ipratropium HFA q4hrs - FBG -500 #Altered Mental Status, improving Suspect toxic-metabolic in etiology in the setting of above respiratory failure, likely 2/2 hypercapnia. Will monitor for resolution as patient's symptoms resolve.??Per patient??daughter at baseline she is A&O x3. 08/23?Ammonia 52H, TSH 0.26L, T4 1.18, Lactate 0.5 ?hCT NAIA, UDS with benzos and oxycodone. - Continue monitor ?? #Iron deficiency anemia Presented with Hgb in 8s without explanation, MCV high 70s, iron profile 13, ferritin 28, Tsat 4%, now s/p 1U PRBCs and 1 x Ferrlecit. - Consider age-appropriate screening and iron supplementation on outpatient basis - No additional iron given ongoing infection. ?? #T Spine Fractures Suspect secondary to fall 3 months ago where patient was reported to have sustained spinal fractures. Has been taking opiates for pain at home. 08/23 CT Abd/Pelv Moderate to Severe Compression fractures at T11 and T12. - Continue to monitor ?? #HTN:?? Home regimen:??HCTZ 12.5mg Oral Daily, Metoprolol Succinate 100mg Daily. - Start HCT 12.5mg Daily ?? #COPD:?? Continue Home??Monteleukast 10mg Daily. Treat as above ?? #GERD:?? Continue??Home Pantoprazole 40mg Daily Code Status: Full Code Lines/Tubes: Peripheral IV 08/23/20 20 G Right Forearm (Active) Number of days: 4 Peripheral IV 08/25/20 20 G Anterior;Proximal;Right Forearm (Active) Number of days: 2 Urethral Catheter Temperature probe (Active) Number of days: 4 Dispo: ICU Prophylaxis: - F (Feeding):Adult Diet Regular, Restricted; 2 GM Sodium - A (Analgesia): APAP prn - S (Sedation): None - T (Thromboembolic ppx): Lovenox - H (HOB elevation): > 30 Degrees - U (Stress ulcer ppx): Pantoprazole - G (Glycemic control): N/A Attending MD to make comment on patient risk/complexity. Phyllis Li MD Neurology Resident, PG-Y1 08/27/2020 11:24 AM Cosigned by Jarred Forte MD at 08/28/2020 7:21 AM DOCENT COORDINATOR NT COORDINATOR NT COORDINATOR * Haylie Miller, RD - 08/26/2020 1:18 PM CST Nutrition Tube Feeding Assessment Reason for Assessment: Follow Up Encounter Date: 08/26/20 1:18 PM Patient is a 79 y.o. female LOS is 3 days. HPI: with PMH of pHTN, COPD (b/l 3L O2), HTN and GERD??who presented for??dyspnea and L sided weakness who was BIBEMS as Code Stroke requiring BiPAP, now intubated Objective Past Medical History: Diagnosis Date ??? COPD (chronic obstructive pulmonary disease) (CMS/HCC) ??? Hypertension ??? Thoracic spine fracture (CMS/HCC) 3 months ago History reviewed. No pertinent surgical history. No Known Allergies Social History Tobacco Use ??? Smoking status: Former Smoker Quit date: 08/23/2004 Years since quittin.0 Substance Use Topics ??? Alcohol use: Not on file No family history on file. Anthropometrics: Wt Readings from Last 3 Encounters: 08/23/20 65 kg (143 lb 4.8 oz) Anthropometrics Weight: 65 kg (143 lb 4.8 oz) Admission Weight : 65 kg Weight Change: -5.76 kg (-12.70 lbs) IBW/kg (Calculated) : 54.5 kg Height: 162.6 cm (5' 4.02 ) Weight in (lb) to have BMI = 25: 145.4 BMI (Calculated): 24.6 Nutrition Needs Calculations: Calculated Energy Needs Using Equations Weight Used for Equation Calculations (RD Determined): 65 kg (143 lb 4.8 oz) Weight: 65 kg (143 lb 4.8 oz) Height: 162.6 cm (5' 4.02 ) Minute Ventilation (L/min): 8 L/min Estimated Protein Needs Type of Weight Used for Estimated Protein : Current Protein Needs Based on g/k.2 Total Protein Estimated Needs (gm): 78 Kcal/kg Type of Weight Used for Estimated Kcals: Current Kcal/k Total Kcal/kg Estimated Needs : 1625 Vital Signs: 24hr Min/Max: Temp Min: 36.9 ??C (98.4 ??F) Max: 37.8 ??C (100 ??F) Pulse Min: 47 Max: 140 BP Min: 147/58 Max: 185/114 Resp Min: 12 Max: 27 SpO2 Min: 97 % Max: 100 % Most Recent : Vitals: 08/26/20 1231 BP: Pulse: (!) 128 Resp: Temp: SpO2: 98% Height: 162.6 cm (5' 4.02 ) Weight: 65 kg (143 lb 4.8 oz) Weight Change: -5.76 kg (-12.70 lbs) Medications: Scheduled Meds: ??? albuterol HFA, 16 puff, inhalation, Q4H CHET (RT) ??? busPIRone, 10 mg, feeding tube, BID ??? cefTRIAXone, 1,000 mg, intravenous, Q24H CHET ??? chlorhexidine, 15 mL, mouth/throat, BID ??? enoxaparin, 40 mg, subcutaneous, Daily-2100 ??? ipratropium, 8 puff, inhalation, Q4H CHET (RT) ??? LORazepam, 1 mg, oral, Q8H ??? montelukast, 10 mg, feeding tube, Nightly ??? oxyCODONE, 5 mg, feeding tube, Q6H ??? pantoprazole, 40 mg, intravenous, Daily ??? polyethylene glycol, 17 g, feeding tube, Daily ??? [START ON 08/27/2020] predniSONE, 40 mg, feeding tube, Daily ??? lubricant, , each eye, BID Continuous Infusions: ??? dexMEDEtomidine, 0.1-1.5 mcg/kg/hr, Last Rate: 1.495 mcg/kg/hr (08/26/20 1040) ??? fentaNYL, 12.5-400 mcg/hr, Last Rate: Stopped (08/26/20 0641) Lab Review: Sodium Date Value Ref Range Status 08/26/2020 144 135 - 145 mmol/L Final Potassium, pl Date Value Ref Range Status 08/26/2020 3.1 (L) 3.3 - 4.9 mmol/L Final BUN Date Value Ref Range Status 08/26/2020 17 8 - 25 mg/dL Final Creatinine Date Value Ref Range Status 08/26/2020 0.51 (L) 0.60 - 1.10 mg/dL Final Phosphorus, pl Date Value Ref Range Status 08/26/2020 3.5 2.3 - 4.5 mg/dL Final Albumin Date Value Ref Range Status 08/23/2020 4.2 3.5 - 5.0 g/dL Final Magnesium Date Value Ref Range Status 08/26/2020 1.9 1.4 - 2.5 mg/dL Final Calcium Date Value Ref Range Status 08/26/2020 9.0 8.5 - 10.3 mg/dL Final HDL Date Value Ref Range Status 08/23/2020 43 >=40 mg/dL Final Comment: Interpretive Data Ages < or = 19 years Acceptable: >45 mg/dL Borderline low: 40-45 mg/dL Low: <40 mg/dL Ages > or = 20 years Desirable: >or= 60 mg/dL Low: <40 mg/dL Literature References: 1. Expert Panel on Integrated Guidelines for Cardiovascular Health and Risk Reduction in Children and Adolescents. Pediatrics 2011;128:S213 2. NCEP Expert Panel. Circulation 2004;110:227 Current Interpretive Data was last revised on 2018. ALT Date Value Ref Range Status 08/23/2020 12 7 - 45 Units/L Final AST Date Value Ref Range Status 08/23/2020 17 10 - 45 Units/L Final Alk phos Date Value Ref Range Status 08/23/2020 117 40 - 130 Units/L Final Lab Results Component Value Date HGBA1C 6.2 (H) 05/10/2015 Nursing Assessment: Intake/Output Summary (Last 24 hours) at 08/26/2020 1318 Last data filed at 08/26/2020 1200 Gross per 24 hour Intake 1435 ml Output 1660 ml Net -225 ml Gastrointestinal Gastrointestinal (WDL): Exceptions to WDL Abdomen Inspection: Soft, Rounded Bowel Sounds (All Quadrants): Active Palpation: Soft, No guarding, Nontender, No rebound Last BM Date: 08/25/20 Passing Flatus: Yes Last BM Date: 08/25/20 Iggy Scale Score: 17 Skin Integrity: Bruising Dietary Orders (From admission, onward) Start Ordered 08/26/20 1046 Diet, Tube Feeding No Tray Vital 1.5 Fidel; 45 (Initiate @ 10 ml and increase by 10 ml q 4 hours until goal is met. ); 60 (ml); Water; Every 4 hours Diet effective now Question Answer Comment Tube Feeding Formula: Vital 1.5 Fidel Tube Feeding Continuous (mL/hr): 45 Initiate @ 10 ml and increase by 10 ml q 4 hours until goal is met. Tube Feeding Flush (mL): 60 ml Flush Type: Water Flush Frequency: Every 4 hours 08/26/20 1045 Impression: Pt intubated/sedated. Planned to start TF today via OGT. Hypokalemia noted. Abdomen notes as soft;rounded. +BM today. Hypokalemia noted. Wt Readings from Last 10 Encounters: 08/23/20 65 kg (143 lb 4.8 oz) NUTRITION DIAGNOSIS Nutrition Diagnosis 1: Inadequate oral intake Related to: NPO status Evidenced by: Need for full tube feeding INTERVENTION Recommend Vital 1.5 @ 45 ml/hr. TF at goal rate provides 1620 calories (25 calories/kg), 72 gm PRO (1.12 gm/kg), 825 ml free water. Flush with 30 mL [id number], adjust per hydration status. Monitor electrolytes replete PRN. Follow aspiration precautions. RD following. GOAL(S) / MONITORING: Goals: Tolerance of enteral feeding at goal rate Interventions: Enteral nutrition administration Monitoring and Evaluation: I/O, Labs, Stool patterns, TF tolerance NT COORDINATOR * Jarred Forte MD - 08/26/2020 12:22 PM CST Interval history: Overnight agitated got ativan, seroquel, haldol, buspar Exam: Gen-nad, intubated, awake able to write on a notepad Eyes-pupils equal reactive to light OP-MMM CV-regular, s1s2 Lungs-bilateral rhonchi no wheezing Abd-Soft, Nd, NT Ext-no edema, warm Neuro-intubated arouses, no clonus rigidity, follows commands answers questions MSK-no joint effusion Skin: no r/b/p I have independently reviewed available data, imaging and imaging reports. Scheduled Meds: ??? albuterol HFA, 16 puff, inhalation, Q4H CHET (RT) ??? busPIRone, 10 mg, feeding tube, BID ??? cefTRIAXone, 1,000 mg, intravenous, Q24H CHET ??? chlorhexidine, 15 mL, mouth/throat, BID ??? enoxaparin, 40 mg, subcutaneous, Daily-2100 ??? ipratropium, 8 puff, inhalation, Q4H CHET (RT) ??? LORazepam, 1 mg, oral, Q8H ??? montelukast, 10 mg, feeding tube, Nightly ??? oxyCODONE, 5 mg, feeding tube, Q6H ??? pantoprazole, 40 mg, intravenous, Daily ??? polyethylene glycol, 17 g, feeding tube, Daily ??? [START ON 08/27/2020] predniSONE, 40 mg, feeding tube, Daily ??? lubricant, , each eye, BID Continuous Infusions: ??? dexMEDEtomidine, 0.1-1.5 mcg/kg/hr, Last Rate: 1.495 mcg/kg/hr (08/26/20 1040) ??? fentaNYL, 12.5-400 mcg/hr, Last Rate: Stopped (08/26/20 0641) PRN Meds:.??? acetaminophen ??? fentaNYL ??? ramelteon ??? senna-docusate Principal Problem: Acute hypercapnic respiratory failure (CMS/HCC) Active Problems: Chronic obstructive pulmonary disease with acute exacerbation (CMS/HCC) Hypertension Encephalopathy acute Assessment/plans: 79 YO female with a history of HTN, COPD, pHTN, gerd who presents with L weakness, abdominal pain and vomiting found to be in mixed hypoxemic and hypercarbic respiratory failure. 1. AHRF and Ahypercarbixc respiratory failure a. Steroids, BDs, antibiotics b. Ventilator support: lung protective ventilation, avoid volume overload, monitor vent pressures, daily trial of weaning c. FBG net negative d. PSV, likely not ready to extubate yet e. Increase enteral sedation on opiates and benzos at home, start some enterally 2. COPD: a. BD and steroids with azithro b. Decrease pred dose to help with agitation 3. Pneumonia a. Empiric antibiotics, f/u cx results 4. HTN: a. Holding home antihypertensives 5. Compresion fracture: old, pain control 6. Abdominal Pain: a. No ttp on exam b. Labs and ct unremarkable c. CTM 7. TF at [facility] 8. GI/DVI pplx 9. Critical Care Time: I have spent 34 minutes in full attendance with this critically ill patient making frequent reassessments and decisions regarding this patient's complex medical care. Critical care time was exclusive of separately billable procedures, treating other patients and teaching time. NT COORDINATOR NT COORDINATOR * Donta Lizarraga MD PhD - 08/26/2020 11:57 AM CST MICU Daily Progress Note Patient: Phoebe Hillman Bed: [id number] Identifying Information: 79 y.o.-old female with PMH of pHTN, COPD (b/l 3L O2), HTN and GERD who presented for dyspnea and Lsided weakness who was BIBEMS as Code Stroke requiring BiPAP, now intubated SUBJECTIVE Interval She was weaned from sedation yesterday and PSV'd unsuccessfully due to patient agitation/panic attack and kept intubated overnight. She continued to be agitated overnight and received Seroquel 25, Ativan 1, needed restraints and Haldol 5 IV x 1. ETT was retracted 2cm and repeat CXR okay. K was 3.1,repleted with 80 mEq K PO. Today will restart some home sedating meds oxy 5 Q6H and Ativan 1 Q8H scheduled. Will also start trickle TF. The patient has no new symptoms. Abx: CTX + azithro (completed) Gtt: fentanyl, Precedex Lines: 2xPIV, ETT, Guerrero, OG MEDICATIONS Scheduled Meds: Scheduled Medications Medication Dose Route Frequency ??? albuterol HFA (PROVENTIL HFA,VENTOLIN HFA,PROAIR HFA) 90 mcg/actuation inhaler 16 puff 16 puff inhalation Q4H CHET (RT) ??? busPIRone (BUSPAR) tablet 10 mg 10 mg feeding tube BID ??? cefTRIAXone (ROCEPHIN) 1,000 mg/10 mL in sterile water (premix) 1,000 mg 1,000 mg intravenous Q24H CHET ??? chlorhexidine (PERIDEX) 0.12 % solution 15 mL 15 mL mouth/throat BID ??? enoxaparin (LOVENOX) syringe 40 mg 40 mg subcutaneous Daily-2100 ??? ipratropium (ATROVENT HFA) 17 mcg/actuation inhaler 8 puff 8 puff inhalation Q4H CHET (RT) ??? LORazepam (ATIVAN) tablet 1 mg 1 mg oral Q8H ??? montelukast (SINGULAIR) tablet 10 mg 10 mg feeding tube Nightly ??? oxyCODONE (ROXICODONE) tablet 5 mg 5 mg feeding tube Q6H ??? pantoprazole (PROTONIX) injection 40 mg 40 mg intravenous Daily ??? polyethylene glycol (MIRALAX) packet 17 g 17 g feeding tube Daily ??? [START ON 08/27/2020] predniSONE (DELTASONE) tablet 40 mg 40 mg feeding tube Daily ??? white petrolatum-mineral oil (REFRESH PM) eye ointment each eye BID PRN Meds: ??? acetaminophen, 650 mg, 650 mg at 08/25/20 0412 ??? fentaNYL, 25 mcg, 25 mcg at 08/25/209 ??? ramelteon, 8 mg, 8 mg at 08/25/202037 ??? senna-docusate, 1 tablet OBJECTIVE Vitals: The patient's height is 162.6 cm (5' 4.02 ) and weight is 65 kg (143 lb 4.8 oz). Her temperature is37.2 ??C (99 ??F). Her blood pressure is 172/78 (abnormal) and her pulse is 125. Her respiration is26 and oxygen saturation is 97%. Vitals: 08/26/20 0655 08/26/20 0657 08/26/20 0713 08/26/20 0933 BP: BP Location: Patient Position: Pulse: 88 99 (!) 140 125 Resp: 23 26 Temp: 37.2 ??C (99 ??F) 37.2 ??C (99 ??F) TempSrc: SpO2: 99% 97% 99% 97% Weight: Height: Intake/Output: Intake/Output Summary (Last 24 hours) at 08/26/2020 1202 Last data filed at 08/26/2020 0600 Gross per 24 hour Intake 1261.37 ml Output 1310 ml Net -48.63 ml Physical Exam: General: Appears uncomfortable, able to write words to communicate. Eyes: No conjunctival pallor or injection, no icterus Cardiac: Regular rhythm, 2+ peripheral pulses, no LE edema, no JVD Pulm: Mechanically ventilated, symmetric breath sounds, coarse b/l inspiratory and end expiratory wheezes. GI/Abd: Soft, nontender, nondistended; normoactive bowel sounds MSK: no joint effusions or major deformities Skin: No rash or bruises Extremities: Cool feet (but exposed), no pitting edema Neuro: RASS -1, CN II-XII grossly intact, moves all extremities spontaneously LABORATORY DATA Lab Results Component Value Date WBC 10.3 (H) 08/26/2020 HGB 8.8 (L) 08/26/2020 HCT 29.7 (L) 08/26/2020 MCV 76.5 (L) 08/26/2020 LABPLAT 236 08/26/2020 Lab Results Component Value Date GLUCOSE 104 08/26/2020 CALCIUM 9.0 08/26/2020 SODIUM 144 08/26/2020 POTASSIUM 3.1 (L) 08/26/2020 CO2 37 (H) 08/26/2020 CHLORIDE 100 08/26/2020 BUNSER 17 08/26/2020 CREATININE 0.51 (L) 08/26/2020 Lab Results Component Value Date ALT 12 08/23/2020 AST 17 08/23/2020 ALKPHOS 117 08/23/2020 BILITOT 0.3 08/23/2020 Lab Results Component Value Date IRON 13 (L) 08/24/2020 TIBC 363 08/24/2020 FERRITIN 28 08/24/2020 Lab Results Component Value Date INR 0.9 08/23/2020 Lab Results Component Value Date HGBA1C 6.2 (H) 05/10/2015 Lab Results Component Value Date TSH 0.26 (L) 08/23/2020 Lab Results Component Value Date SPECGRAVU >1.042 (H) 08/23/2020 BLOODUR Negative 08/23/2020 LEUKESTUR Negative 08/23/2020 Lab Results Component Value Date TROPONINI <0.03 05/10/2015 Lab Results Component Value Date CHOL 194 08/23/2020 Lab Results Component Value Date HDL 43 08/23/2020 Lab Results Component Value Date LDLCALC 120 08/23/2020 LDL 97 05/10/2015 Lab Results Component Value Date TRIG 154 (H) 08/23/2020 No components found for: 25OHVITD Radiology and Other Diagnostics: Xr Abdomen Ap 1 Vw Result Date: 08/24/2020 A single view of the abdomen is submitted for evaluation. Gastric tube tip is peripyloric and side-port is in the antrum of the stomach. There are partially visualized patchy airspace opacities predominantly in the right lung, which could represent sequela of aspiration or pneumonia. Dictated by: Migel Bay M.D. The radiology attending physician has personally reviewed this study, and had reviewed and/or edited this written report and agrees with it. Electronically signed by: Agus Brizuela M.D. Ct Abdomen Pelvis W Contrast Result Date: 08/23/2020 1. Small to moderate hiatal hernia with changes of aspiration within the right lower lobe, possiblywith superimposed aspiration related pneumonia. Small right pleural effusion. 2. Linear peripheral areas of hypoattenuation in the right kidney are nonspecific but can be seen in the setting of pyelonephritis or as a sequela prior scarring. Correlate with flank pain and urinalysis. 3. Moderate to severe compression fractures at T11 and T12, new from 05/13/2015. Dictated by: Leonela Louise M.D. The radiology attending physician has personally reviewed this study, and had reviewed and/or edited this written report and agrees with it. Electronically signed by: Vaughn Gusman M.D. CXR 08/25/2020 IMPRESSION: 1. Chest radiograph 08/25/2020 at 8:01 PM compared to 08/24/2020. ?? An endotracheal tube is noted, the tricia is difficult to visualize. An esophagogastric tube courses caudally below the diaphragm and terminates below [id number]. ?? The cardiomediastinal contours are within stable. There is bilateral basilar atelectasis. No pneumothorax. No pleural effusion. ?? 2. Chest radiograph 08/25/2020 at 10:18 PM ?? The endotracheal tube is approximately 2.5 cm above the tricia. An esophagogastric tube tip is peripyloric and side-port is in the gastric body. The cardiomediastinal contours are unchanged. There is atherosclerotic calcification of the aortic knob. There is mild right basilar atelectasis. No pleural effusion. No pneumothorax. ASSESSMENT and PLAN #Acute Hypercapnic Respiratory Failure Patient presenting in acute hypercapnic respiratory failure likely to COPD Exacerbation vs Aspiration PNA requiring intubation on 08/23 PM after arrival to the ICU due to increased WOB and altered mental status. Wheezes and crackles on exam. Unclear precipitant at this time though per chart review concern for polypharmacy in the setting of multiple benzo prescriptions (Clonazepam and Tenazepam) along with opiates. Given patient without risk factors for HAP will treat for CAP and evaluate for other possible infectious causes. 08/23 VBG 7.16 >125 158 >> 7.17 125 41 >> 7.14 >125 31 UA 1+ protein, trace bacteria CXR Small lung volumes with patchy airspace opacities on the R. No pleural effusion. CXR post intubation with unchanged patchy airspace opacities. ETT in place 1cm above tricia and waspulled back 1 cm. - Abx: Vanc/Cefe (08/23); Azithro (08/23 - 08/25) Ceftriaxone (08/23 - 08/27) - Prednisone 60mg daily (08/23-08/26), decreased to 40mg (08/27) - some signs of fluid overload, give Lasix 20IV today - Albuterol and Ipratropium HFA q4hrs - RVP neg, Legionella Ag neg, COVID neg - MRSA nasal swab pending - BCx and trach asp Cx 08/23 NGTD - Intubated 08/23; Wean Vent as tolerated, restarted home Ativan and oxy scheduled to possibly aid with agitation. - Fentanyl and Precedex. ?? #Altered Mental Status Suspect toxic-metabolic in etiology in the setting of above respiratory failure, likely 2/2 hypercapnia. Will monitor for resolution as patient's symptoms resolve. Per patient daughter at baseline she is A&O x3. 08/23 Ammonia 52H, TSH 0.26L, T4 1.18, Lactate 0.5 hCT NAIA, UDS with benzos and oxycodone. - Reassess pt when sedation weaned, appears less confused now ?? #Iron deficiency anemia Presented with Hgb in 8s without explanation, MCV high 70s, iron profile 13, ferritin 28, Tsat 4%, now s/p 1U PRBCs and 1 x Ferrlecit. - Consider age-appropriate screening and iron supplementation on outpatient basis - No additional iron given ongoing infection. #T Spine Fractures Suspect secondary to fall 3 months ago where patient was reported to have sustained spinal fractures. Has been taking opiates for pain at home. 08/23 CT Abd/Pelv Moderate to Severe Compression fractures at T11 and T12. - Continue to monitor ?? #HTN: Hold Home HCTZ 12.5mg Oral Daily, Metoprolol Succinate 100mg Daily. Reassess need when more stable. ?? #COPD: Continue Home Monteleukast 10mg Daily. Treat as above ?? #GERD: Continue Home Pantoprazole 40mg Daily ?? Code Status: Full Code Dispo: ICU Prophylaxis: - F (Feeding): Start TF Vital 1.5 @45/hr, FWF 60mL Q4H - A (Analgesia):??Fentanyl - S (Sedation):??Precedex - T (Thromboembolic ppx): Lovenox - H (HOB elevation):>30 - U (Stress ulcer ppx): Pantoprazole - G (Glycemic control):N/A Attending MD to make comment on patient risk/complexity. Donta Lizarraga MD PhD PGY-1, Internal Medicine Cosigned by Jarred Forte MD at 08/26/2020 4:21 PM DOCENT COORDINATOR NT COORDINATOR NT COORDINATOR * Donta Lizarraga MD PhD - 08/25/2020 12:53 PM CST MICU Daily Progress Note Patient: Phoebe Hillman Bed: [id number] Identifying Information: [id number] y.o.-old female with PMH of pHTN, COPD (b/l 3L O2), HTN and GERD who presented for dyspnea and Lsided weakness who was BIBEMS as Code Stroke requiring BiPAP, now intubated SUBJECTIVE Interval Overnight, her Precedex was decreased and fentanyl increased for some bradycardia (lowest charted 44), started receiving FWF 200mL Q4H for hypernatremia, received 1 unit PRBC for slightly Hgb decrease to 6.9, responded appropriately to 8.2, also received Ferrlecit x 1 overnight. She appears to have symmetric movements, is sedated and intubated but somewhat communicative writing words on pad, today just wrote nervous . Shakes head indicating not feeling unwell, SOB, pain anywhere. She was againtrialed on PSV today, was very insistent that she wanted to be extubated but willing to stay on ventilator if necessary. Abx: CTX + azithro Gtt: fentanyl, Precedex Lines: 2xPIV, ETT, Guerrero, OG MEDICATIONS Scheduled Meds: Scheduled Medications Medication Dose Route Frequency ??? albuterol HFA (PROVENTIL HFA,VENTOLIN HFA,PROAIR HFA) 90 mcg/actuation inhaler 16 puff 16 puff inhalation Q4H CHET (RT) ??? azithromycin (ZITHROMAX) tablet 500 mg 500 mg feeding tube Once ??? cefTRIAXone (ROCEPHIN) 1,000 mg/10 mL in sterile water (premix) 1,000 mg 1,000 mg intravenous Q24H CHET ??? chlorhexidine (PERIDEX) 0.12 % solution 15 mL 15 mL mouth/throat BID ??? enoxaparin (LOVENOX) syringe 40 mg 40 mg subcutaneous Daily-2100 ??? ipratropium (ATROVENT HFA) 17 mcg/actuation inhaler 8 puff 8 puff inhalation Q4H CHET (RT) ??? montelukast (SINGULAIR) tablet 10 mg 10 mg feeding tube Nightly ??? pantoprazole (PROTONIX) injection 40 mg 40 mg intravenous Daily ??? polyethylene glycol (MIRALAX) packet 17 g 17 g feeding tube Daily ??? predniSONE (DELTASONE) tablet 60 mg 60 mg feeding tube Daily ??? white petrolatum-mineral oil (REFRESH PM) eye ointment each eye BID PRN Meds: ??? acetaminophen, 650 mg, 650 mg at 08/25/20 0412 ??? fentaNYL, 25 mcg, 25 mcg at 08/25/20 0430 ??? ramelteon, 8 mg, 8 mg at 08/24/20 2336 ??? senna-docusate, 1 tablet OBJECTIVE Vitals: The patient's height is 162.6 cm (5' 4.02 ) and weight is 65 kg (143 lb 4.8 oz). Her temperature is37 ??C (98.6 ??F). Her blood pressure is 164/61 and her pulse is 100. Her respiration is 16 and oxygen saturation is 96%. Vitals: 08/25/20 1000 08/25/20 1041 08/25/20 1110 08/25/20 1250 BP: 164/61 BP Location: Patient Position: Pulse: 74 74 116 100 Resp: 16 Temp: 37 ??C (98.6 ??F) TempSrc: SpO2: 97% 94% 97% 96% Weight: Height: Intake/Output: Intake/Output Summary (Last 24 hours) at 08/25/2020 1253 Last data filed at 08/25/2020 1000 Gross per 24 hour Intake 1294.54 ml Output 690 ml Net 604.54 ml Physical Exam: General: Appears uncomfortable, able to write words to communicate. Eyes: No conjunctival pallor or injection, no icterus Cardiac: Regular rhythm, 2+ peripheral pulses, no LE edema, no JVD Pulm: Mechanically ventilated, symmetric breath sounds. GI/Abd: Soft, nontender, nondistended; normoactive bowel sounds MSK: no joint effusions or major deformities Skin: No rash or bruises Extremities: Warm and well perfused, 1+ pitting edema b/l Neuro: RASS -1, CN II-XII grossly intact, moves all extremities spontaneously LABORATORY DATA Lab Results Component Value Date WBC 8.4 08/25/2020 HGB 8.2 (L) 08/25/2020 HCT 26.9 (L) 08/25/2020 MCV 77.7 (L) 08/25/2020 LABPLAT 199 08/25/2020 Lab Results Component Value Date GLUCOSE 119 08/25/2020 CALCIUM 8.2 (L) 08/25/2020 SODIUM 150 (H) 08/25/2020 POTASSIUM 3.7 08/25/2020 CO2 35 (H) 08/25/2020 CHLORIDE 110 08/25/2020 BUNSER 22 08/25/2020 CREATININE 0.47 (L) 08/25/2020 Lab Results Component Value Date ALT 12 08/23/2020 AST 17 08/23/2020 ALKPHOS 117 08/23/2020 BILITOT 0.3 08/23/2020 Lab Results Component Value Date IRON 13 (L) 08/24/2020 TIBC 363 08/24/2020 FERRITIN 28 08/24/2020 Lab Results Component Value Date INR 0.9 08/23/2020 Lab Results Component Value Date HGBA1C 6.2 (H) 05/10/2015 Lab Results Component Value Date TSH 0.26 (L) 08/23/2020 Lab Results Component Value Date SPECGRAVU >1.042 (H) 08/23/2020 BLOODUR Negative 08/23/2020 LEUKESTUR Negative 08/23/2020 Lab Results Component Value Date TROPONINI <0.03 05/10/2015 Lab Results Component Value Date CHOL 194 08/23/2020 Lab Results Component Value Date HDL 43 08/23/2020 Lab Results Component Value Date LDLCALC 120 08/23/2020 LDL 97 05/10/2015 Lab Results Component Value Date TRIG 154 (H) 08/23/2020 No components found for: 25OHVITD Radiology and Other Diagnostics: Xr Abdomen Ap 1 Vw Result Date: 08/24/2020 A single view of the abdomen is submitted for evaluation. Gastric tube tip is peripyloric and side-port is in the antrum of the stomach. There are partially visualized patchy airspace opacities predominantly in the right lung, which could represent sequela of aspiration or pneumonia. Dictated by: Migel Bay M.D. The radiology attending physician has personally reviewed this study, and had reviewed and/or edited this written report and agrees with it. Electronically signed by: Agus Brizuela M.D. Ct Abdomen Pelvis W Contrast Result Date: 08/23/2020 1. Small to moderate hiatal hernia with changes of aspiration within the right lower lobe, possiblywith superimposed aspiration related pneumonia. Small right pleural effusion. 2. Linear peripheral areas of hypoattenuation in the right kidney are nonspecific but can be seen in the setting of pyelonephritis or as a sequela prior scarring. Correlate with flank pain and urinalysis. 3. Moderate to severe compression fractures at T11 and T12, new from 05/13/2015. Dictated by: Leonela Louise M.D. The radiology attending physician has personally reviewed this study, and had reviewed and/or edited this written report and agrees with it. Electronically signed by: Vaughn Gusman M.D. Xr Chest 1 View Result Date: 08/24/2020 First exam 08/23/2020 9:33 PM. Comparison is made to single view chest radiograph dated 08/23/2020 7:11 PM. Unchanged small lung volumes with right basilar opacities favored to represent atelectasis versus aspiration. No pleural effusion or pneumothorax. Cardiac mediastinal silhouette is stable. Second exam 08/23/2020 10:49 PM. Endotracheal tube tip projects 2 cm above the tricia. Gastric tube courses caudally beneath left hemidiaphragm out of the [id number]. Slightly improved aeration in the right lung base with mild residual atelectasis. Dictated by: Roshni Vasquez M.D. The radiology attending physician has personally reviewed this study, and had reviewed and/or edited this written report and agrees with it. Electronically signed by: Octavio Ricketts M.D. Xr Chest 1 View (portable) Result Date: 08/24/2020 First exam 08/23/2020 9:33 PM. Comparison is made to single view chest radiograph dated 08/23/2020 7:11 PM. Unchanged small lung volumes with right basilar opacities favored to represent atelectasis versus aspiration. No pleural effusion or pneumothorax. Cardiac mediastinal silhouette is stable. Second exam 08/23/2020 10:49 PM. Endotracheal tube tip projects 2 cm above the tricia. Gastric tube courses caudally beneath left hemidiaphragm out of the [id number]. Slightly improved aeration in the right lung base with mild residual atelectasis. Dictated by: Roshni Vasquez M.D. The radiology attending physician has personally reviewed this study, and had reviewed and/or edited this written report and agrees with it. Electronically signed by: Octavio Ricketts M.D. Xr Chest 1 Vw Portable Result Date: 08/23/2020 Lung volumes are very small. There are patchy airspace opacities throughout the right lung, most notable in the right lung base. Some of these have a nodular appearance. Findings may represent sequela of aspiration or pneumonia. There is no pleural effusion. There is no pneumothorax. The cardiomediastinal silhouette is unchanged. Dictated by: Leonela Louise M.D. The radiology attending physician has personally reviewed this study, and had reviewed and/or edited this written report andagrees with it. Electronically signed by: Vaughn Edward Naseem, M.D. Ct Stroke Head Wo Contrast Result Date: 08/23/2020 No acute intracranial abnormality. MRI is more sensitive for early ischemic changes. Dictated by: Leonela Louise M.D. The radiology attending physician has personally reviewed this study, and had reviewed and/or edited this written report and agrees with it. Electronically signed by: Karina Meier M.D. ASSESSMENT and PLAN #Acute Hypercapnic Respiratory Failure Patient presenting in acute hypercapnic respiratory failure likely to COPD Exacerbation vs Aspiration PNA requiring intubation on 08/23 PM after arrival to the ICU due to increased WOB and altered mental status. Wheezes and crackles on exam. Unclear precipitant at this time though per chart review concern for polypharmacy in the setting of multiple benzo prescriptions (Clonazepam and Tenazepam) along with opiates. Given patient without risk factors for HAP will treat for CAP and evaluate for other possible infectious causes. 08/23 VBG 7.16 >125 158 >> 7.17 125 41 >> 7.14 >125 31 UA 1+ protein, trace bacteria CXR Small lung volumes with patchy airspace opacities on the R. No pleural effusion. CXR post intubation with unchanged patchy airspace opacities. ETT in place 1cm above tricia and waspulled back 1 cm. - Abx: Vanc/Cefe (08/23); Azithro (08/23 - 08/25) Ceftriaxone (08/23 - 08/27) - Prednisone 60mg daily (08/23-08/27) (due to severity) - some signs of fluid overload, give Lasix 20IV today - Albuterol and Ipratropium HFA q4hrs - RVP neg, Legionella Ag neg, COVID neg - MRSA nasal swab pending - BCx and trach asp Cx 08/23 NGTD - Intubated 08/23; Wean Vent as tolerated - Fentanyl and Precedex. ?? #Altered Mental Status Suspect toxic-metabolic in etiology in the setting of above respiratory failure, likely 2/2 hypercapnia. Will monitor for resolution as patient's symptoms resolve. Per patient daughter at baseline she is A&O x3. 08/23 Ammonia 52H, TSH 0.26L, T4 1.18, Lactate 0.5 hCT NAIA, UDS with benzos and oxycodone. - Reassess pt when sedation weaned, appears less confused now ?? #Iron deficiency anemia Presented with Hgb in 8s without explanation, MCV high 70s, iron profile 13, ferritin 28, Tsat 4%, now s/p 1U PRBCs and 1 x Ferrlecit. - Consider age-appropriate screening and iron supplementation on outpatient basis - No additional iron given ongoing infection. #T Spine Fractures Suspect secondary to fall 3 months ago where patient was reported to have sustained spinal fractures. Has been taking opiates for pain at home. 08/23 CT Abd/Pelv Moderate to Severe Compression fractures at T11 and T12. - Continue to monitor ?? #HTN: Hold Home HCTZ 12.5mg Oral Daily, Metoprolol Succinate 100mg Daily. Reassess need when more stable. ?? #COPD: Continue Home Monteleukast 10mg Daily. Treat as above ?? #GERD: Continue Home Pantoprazole 40mg Daily ?? Code Status: Full Code Dispo: ICU Prophylaxis: - F (Feeding): NPO Diet, FWF 200mL Q4H, consider tube feeds or diet pending PSV. - A (Analgesia):??Fentanyl - S (Sedation):??Precedex - T (Thromboembolic ppx): Lovenox - H (HOB elevation):>30 - U (Stress ulcer ppx): Pantoprazole - G (Glycemic control):N/A Attending MD to make comment on patient risk/complexity. Donta Lizarraga MD PhD PGY-1, Internal Medicine Cosigned by Jarred Forte MD at 08/26/2020 4:21 PM DOCENT COORDINATOR NT COORDINATOR NT COORDINATOR * Jarred Forte MD - 08/25/2020 12:02 PM CST Interval history: Mild bradycardia with precedex, lowered. Received 1 unit PRBCs. Alert this morning, feeling better, no pain, just nervous. Exam: Gen-nad, intubated, awake able to write on a notepad Eyes-pupils equal reactive to light OP-MMM CV-regular, s1s2 Lungs-Rales bilaterally, Abd-Soft, Nd, NT Ext-no edema, warm Neuro-intubated arouses, no clonus rigidity MSK-no joint effusion Skin: no r/b/p I have independently reviewed available data, imaging and imaging reports. Scheduled Meds: ??? albuterol HFA, 16 puff, inhalation, Q4H CHET (RT) ??? azithromycin, 500 mg, feeding tube, Once ??? cefTRIAXone, 1,000 mg, intravenous, Q24H CHET ??? chlorhexidine, 15 mL, mouth/throat, BID ??? enoxaparin, 40 mg, subcutaneous, Daily-2100 ??? furosemide, 20 mg, intravenous, Once ??? ipratropium, 8 puff, inhalation, Q4H CHET (RT) ??? montelukast, 10 mg, feeding tube, Nightly ??? pantoprazole, 40 mg, intravenous, Daily ??? polyethylene glycol, 17 g, feeding tube, Daily ??? predniSONE, 60 mg, feeding tube, Daily ??? lubricant, , each eye, BID Continuous Infusions: ??? dexMEDEtomidine, 0.1-1.5 mcg/kg/hr, Last Rate: 0.2 mcg/kg/hr (08/25/20 06) ??? fentaNYL, 12.5-400 mcg/hr, Last Rate: 50 mcg/hr (08/25/20599) PRN Meds:.??? acetaminophen ??? fentaNYL ??? ramelteon ??? senna-docusate Principal Problem: Acute hypercapnic respiratory failure (CMS/HCC) Active Problems: Chronic obstructive pulmonary disease with acute exacerbation (CMS/HCC) Hypertension Encephalopathy acute Assessment/plans: 79 YO female with a history of HTN, COPD, pHTN, gerd who presents with L weakness, abdominal pain and vomiting found to be in mixed hypoxemic and hypercarbic respiratory failure. 1. AHRF and Ahypercarbixc respiratory failure a. Steroids, BDs, antibiotics b. Ventilator support: lung protective ventilation, avoid volume overload, monitor vent pressures, daily trial of weaning c. FBG net negative d. PSV, likely not ready to extubate yet 2. COPD: a. BD and steroids with azithro 3. Pneumonia a. Empiric antibiotics, ramirez culture 4. HTN: a. Holding home antihypertensives 5. Compresion fracture: old, pain control 6. ?Pyelo on imaging a. UA unremarkable b. Renal US for better visualization 7. Abdominal Pain: a. No ttp on exam b. Labs and ct unremarkable c. CTM 8. TF 9. GI/DVI pplx 10. Critical Care Time: I have spent 33 minutes in full attendance with this critically ill patient making frequent reassessments and decisions regarding this patient's complex medical care. Critical care time was exclusive of separately billable procedures, treating other patients and teaching time. NT COORDINATOR * Octavia Hidalgo RN - 08/25/2020 11:16 AM CST CM Initial Assessment Interview Note Information Obtained From: Adult child Name: spoke to Elke over the phone. patient is currently intubated (08/25/20 1110) Admission Source: from home Impression: 79 yo F with PMH of pHTN, COPD, HTN, GERD. Admitted for dyspnea and left sided weakness; possible stroke. Plan Includes: Intubated. Sedated. On Precedex gtt. Steroids. PT/OT recs when appropriate. Possibleplacement vs home with HH services. IF HH is recommended, will need HH agency list prior to discharge. CM will continue to follow for referrals and discharge planning. Primary Source of Transportation: Does the patient need discharge transport arranged?: No(pending recs) (08/25/20 1115) Health Insurance Coverage: [facility] [employer], Medicaid [place] Prescription Coverage: yes Pharmacy: [facility] (in [place], [place]) Primary Care Provider: Eusebio Nagy MD Prior to Admission: Primary Caregiver: Self Support System: Children(daughter-Joanna Herrera, son-Reynold France) Support system contact info (name, phone, availablity): Elke Herrera # [phone],son-Reynold Sher # [phone] Home Care Services: No Durable Medical Equipment: CPAP/Bi-PAP, Oxygen, Nebulizer, Other (Comment), Walker (wheeled), Shower chair, Toilet Riser(portable tanks, concentrator. on home O2- 3L. DME provider-Jr. has CPAP machine (only uses occasionally)) Living Arrangements: Friends(lives with a back shoe worker ) Type of Residence: Private residence Steps in home? : Yes, Outside of home (08/25/201109) Potential discharge needs include: unknown at this time, possible placement Dialysis: Dialysis: No (08/25/201109) Behavioral Health Services: Behavioral Health Services: No (08/25/201109) Patient expects to be Discharged to: Other (Comment)(placement vs home with HH services), (08/25/201109) Additional Information: requires some assistance at home with ADLs (bathing), which is provided by daughterJoanna. Uses DMEs at home. Denies HH services prior to hospitalization, but has had in the past. Is supposed to have choreworker services through [facility] in [place], [place] (15 hr/week)/set up in , but agency has not provided any services to date. Encouraged daughterto contact agency. VERIFIED ADDRESS/ PHONE # to facesheet. Patient's Identified Problem/Goal Problem: Ensure acute medical [...] Collaboration with patient, MD, direct care nurse, Car Retarder Operator, and other members of the health care team to assure needed interventions completed. 2. Return patient to optimal level of self-care post discharge. 3. Tomato Pulper Operator will follow for Discharge Planning - interventions as needed 4. Anticipated level of care at discharge 5. Planned Discharge Disposition Based on a comprehensive family assessment, assistance with instrumental activities of daily livingafter discharge will be provided by family/facility. Through the course of our work I determined that the family/facility possesses the skill and ability to provide and monitor the care of the patient when he or she returns home. Family/facility has the capacity to provide/monitor/arrange for the care of the patient. Finally, we determined that family/facility has the knowledge of available resources and that combining them with their existing resources will suffice to sustain and care for the patient when he or she returns home. The treatment team is aware of this information. All are in agreement with the aftercare plan. Octavia Hidalgo RN, BSN family independence case manager # [phone] For emergency needs after 4:30 pm, please call the public health professor [phone]. For weekend/holiday needs from 8:00a.m. - 4:30p.m., please call the Weekend Tomato Pulper Operator . NT COORDINATOR NT COORDINATOR * Jarred Forte MD - 08/24/2020 2:45 PM CST Interval history: NAEON. Intubated, sedated. Febrile. WBC elevated, net negative 165mL. Exam: Gen-nad, intubated Eyes-pupils equal reactive to light OP-MMM CV-regular, s1s2 Lungs-CTAB Abd-Soft, Nd, NT Ext-no edema, warm Neuro-intubated arouses, no clonus rigidity MSK-no joint effusion Skin: no r/b/p I have independently reviewed available data, imaging and imaging reports. Scheduled Meds: ??? albuterol HFA, 16 puff, inhalation, Q4H CHET (RT) ??? azithromycin, 500 mg, intravenous, Q24H CHET ??? cefTRIAXone, 1,000 mg, intravenous, Q24H CHET ??? chlorhexidine, 15 mL, mouth/throat, BID ??? enoxaparin, 40 mg, subcutaneous, Daily-2100 ??? ipratropium, 8 puff, inhalation, Q4H CHET (RT) ??? montelukast, 10 mg, feeding tube, Nightly ??? pantoprazole, 40 mg, intravenous, Daily ??? polyethylene glycol, 17 g, feeding tube, Daily ??? potassium, sodium phosphates, 1 packet, feeding tube, TID AC ??? predniSONE, 60 mg, feeding tube, Daily ??? lubricant, , each eye, BID Continuous Infusions: ??? dexMEDEtomidine, 0.1-1.5 mcg/kg/hr, Last Rate: 0.4 mcg/kg/hr (08/24/20 1300) ??? fentaNYL, 12.5-400 mcg/hr, Last Rate: 25 mcg/hr (08/24/20 0600) PRN Meds:.fentaNYL ??? senna-docusate Principal Problem: Acute hypercapnic respiratory failure (CMS/HCC) Active Problems: Chronic obstructive pulmonary disease with acute exacerbation (CMS/HCC) Hypertension Encephalopathy acute Assessment/plans: 79 YO female with a history of HTN, COPD, pHTN, gerd who presents with L weakness, abdominal pain and vomiting found to be in mixed hypoxemic and hypercarbic respiratory failure. 1. AHRF and Ahypercarbixc respiratory failure a. Steroids, BDs, antibiotics b. Ventilator support: lung protective ventilation, avoid volume overload, monitor vent pressures, daily trial of weaning 2. COPD: a. BD and steroids with azithro 3. Pneumonia a. Empiric antibiotics, ramirez culture 4. HTN: a. Holding home antihypertensives 5. Compresion fracture: old pain control 6. ?Pyelo on imaging a. UA unremarkable b. Renal US for better visualization 7. Abdominal Pain: a. No ttp on exam b. Labs and ct unremarkable c. CTM 8. TF 9. GI/DVI pplx 10. Critical Care Time: I have spent 37 minutes in full attendance with this critically ill patient making frequent reassessments and decisions regarding this patient's complex medical care. Critical care time was exclusive of separately billable procedures, treating other patients and teaching time. NT COORDINATOR * Haylie Miller RD - 08/24/2020 2:22 PM CST Nutrition Tube Feeding Assessment Reason for Assessment: Screened at Nutrition Risk Encounter Date: 08/24/20 2:22 PM Patient is a 79 y.o. female LOS is 1 days. HPI: with PMH of pHTN, COPD (b/l 3L O2), HTN and GERD??who presented for??dyspnea and L sided weakness who was BIBEMS as Code Stroke requiring BiPAP, now intubated Objective Past Medical History: Diagnosis Date ??? COPD (chronic obstructive pulmonary disease) (CMS/HCC) ??? Hypertension ??? Thoracic spine fracture (CMS/HCC) 3 months ago History reviewed. No pertinent surgical history. No Known Allergies Social History Tobacco Use ??? Smoking status: Former Smoker Quit date: 08/23/2004 Years since quittin.0 Substance Use Topics ??? Alcohol use: Not on file No family history on file. Anthropometrics: Wt Readings from Last 3 Encounters: 08/23/20 65 kg (143 lb 4.8 oz) Anthropometrics Weight: 65 kg (143 lb 4.8 oz) Admission Weight : 65 kg Weight Change: -5.76 kg (-12.70 lbs) IBW/kg (Calculated) : 54.5 kg Height: 162.6 cm (5' 4.02 ) Weight in (lb) to have BMI = 25: 145.4 BMI (Calculated): 24.6 Nutrition Needs Calculations: Calculated Energy Needs Using Equations Weight Used for Equation Calculations (RD Determined): 65 kg (143 lb 4.8 oz) Weight: 65 kg (143 lb 4.8 oz) Height: 162.6 cm (5' 4.02 ) Minute Ventilation (L/min): 6 L/min Estimated Protein Needs Type of Weight Used for Estimated Protein : Current Protein Needs Based on g/k.2 Total Protein Estimated Needs (gm): 78 Kcal/kg Type of Weight Used for Estimated Kcals: Current Kcal/k Total Kcal/kg Estimated Needs : 1625 Vital Signs: 24hr Min/Max: Temp Min: 35.1 ??C (95.2 ??F) Max: 38.2 ??C (100.8 ??F) Pulse Min: 48 Max: 114 BP Min: 75/37 Max: 187/89 Resp Min: 10 Max: 25 SpO2 Min: 51 % Max: 100 % Most Recent : Vitals: 08/24/20 1400 BP: 163/68 Pulse: 76 Resp: 21 Temp: 37.2 ??C (99 ??F) SpO2: 99% Height: 162.6 cm (5' 4.02 ) Weight: 65 kg (143 lb 4.8 oz) Weight Change: -5.76 kg (-12.70 lbs) Medications: Scheduled Meds: ??? albuterol HFA, 16 puff, inhalation, Q4H CHET (RT) ??? azithromycin, 500 mg, intravenous, Q24H CHET ??? cefTRIAXone, 1,000 mg, intravenous, Q24H CHET ??? chlorhexidine, 15 mL, mouth/throat, BID ??? enoxaparin, 40 mg, subcutaneous, Daily-2100 ??? ipratropium, 8 puff, inhalation, Q4H CHET (RT) ??? montelukast, 10 mg, feeding tube, Nightly ??? pantoprazole, 40 mg, intravenous, Daily ??? polyethylene glycol, 17 g, feeding tube, Daily ??? potassium, sodium phosphates, 1 packet, feeding tube, TID AC ??? predniSONE, 60 mg, feeding tube, Daily ??? lubricant, , each eye, BID Continuous Infusions: ??? dexMEDEtomidine, 0.1-1.5 mcg/kg/hr, Last Rate: 0.4 mcg/kg/hr (08/24/20 1300) ??? fentaNYL, 12.5-400 mcg/hr, Last Rate: 25 mcg/hr (08/24/20 0600) Lab Review: Sodium Date Value Ref Range Status 08/24/2020 144 135 - 145 mmol/L Final Potassium, pl Date Value Ref Range Status 08/24/2020 3.9 3.3 - 4.9 mmol/L Final BUN Date Value Ref Range Status 08/24/2020 19 8 - 25 mg/dL Final Creatinine Date Value Ref Range Status 08/24/2020 0.56 (L) 0.60 - 1.10 mg/dL Final Phosphorus, pl Date Value Ref Range Status 08/24/2020 2.2 (L) 2.3 - 4.5 mg/dL Final Albumin Date Value Ref Range Status 08/23/2020 4.2 3.5 - 5.0 g/dL Final Magnesium Date Value Ref Range Status 08/24/2020 2.2 1.4 - 2.5 mg/dL Final Calcium Date Value Ref Range Status 08/24/2020 9.1 8.5 - 10.3 mg/dL Final HDL Date Value Ref Range Status 08/23/2020 43 >=40 mg/dL Final Comment: Interpretive Data Ages < or = 19 years Acceptable: >45 mg/dL Borderline low: 40-45 mg/dL Low: <40 mg/dL Ages > or = 20 years Desirable: >or= 60 mg/dL Low: <40 mg/dL Literature References: 1. Expert Panel on Integrated Guidelines for Cardiovascular Health and Risk Reduction in Children and Adolescents. Pediatrics 2011;128:S213 2. NCEP Expert Panel. Circulation 2004;110:227 Current Interpretive Data was last revised on 2018. ALT Date Value Ref Range Status 08/23/2020 12 7 - 45 Units/L Final AST Date Value Ref Range Status 08/23/2020 17 10 - 45 Units/L Final Alk phos Date Value Ref Range Status 08/23/2020 117 40 - 130 Units/L Final Lab Results Component Value Date HGBA1C 6.2 (H) 05/10/2015 Nursing Assessment: Intake/Output Summary (Last 24 hours) at 08/24/2020 1422 Last data filed at 08/24/2020 1400 Gross per 24 hour Intake 669.7 ml Output 880 ml Net -210.3 ml Gastrointestinal Gastrointestinal (WDL): Within Defined Limits Iggy Scale Score: 12 Dietary Orders (From admission, onward) Start Ordered 08/23/202106 NPO Diet Diet effective now 08/23/202105 Impression: Pt intubated/sedated. No plan to initiate nutrition support today, NGT to LIS. No weight history available to evaluate. Pt without obvious muscle and fat wasting. Hypophosphatemia noted, pt received PHOS-NAK. Wt Readings from Last 10 Encounters: 08/23/20 65 kg (143 lb 4.8 oz) NUTRITION DIAGNOSIS Nutrition Diagnosis 1: Inadequate oral intake Related to: NPO status Evidenced by: Need for full tube feeding INTERVENTION When okay to start TF, Recommend Vital 1.5 @ 45 ml/hr. Initiate @ 10 ml and increase by 10 ml q 4 hours. TF at goal rate provides 1620 calories (25 calories/kg), 72 gm PRO (1.12 gm/kg), 825 ml free water. Flush with 30 mL [id number], adjust per hydration status. Monitor electrolytes replete PRN. Follow aspiration precautions. RD following. GOAL(S) / MONITORING: Goals: Tolerance of enteral feeding at goal rate Interventions: Enteral nutrition administration Monitoring and Evaluation: I/O, Labs, Stool patterns, TF tolerance NT COORDINATOR * Donta Lizarraga MD PhD - 08/24/2020 12:07 PM CST MICU Daily Progress Note Patient: Phoebe Hillman Bed: [id number] Identifying Information: 79 y.o.-old female with PMH of pHTN, COPD (b/l 3L O2), HTN and GERD who presented for dyspnea and Lsided weakness who was BIBEMS as Code Stroke requiring BiPAP, now intubated SUBJECTIVE Interval She appears to have symmetric movements now, is sedated and intubated, not communicative. For slightly low P, she was scheduled 3 doses of sodium potassium phosphates. Her VBG improved significantly to 7.50/52/137 and was trialed on PSV. Abx: CTX + azithro Gtt: fentanyl, Precedex Lines: 3xPIV, ETT, Guerrero MEDICATIONS Scheduled Meds: Scheduled Medications Medication Dose Route Frequency ??? albuterol HFA (PROVENTIL HFA,VENTOLIN HFA,PROAIR HFA) 90 mcg/actuation inhaler 16 puff 16 puff inhalation Q4H CHET (RT) ??? azithromycin (ZITHROMAX) 500 mg/255 mL in sodium chloride 0.9% (premix) 500 mg 500 mg intravenous Q24H CHET ??? cefTRIAXone (ROCEPHIN) 1,000 mg/10 mL in sterile water (premix) 1,000 mg 1,000 mg intravenous Q24H CHET ??? chlorhexidine (PERIDEX) 0.12 % solution 15 mL 15 mL mouth/throat BID ??? enoxaparin (LOVENOX) syringe 40 mg 40 mg subcutaneous Daily-2099 ??? ipratropium (ATROVENT HFA) 17 mcg/actuation inhaler 8 puff 8 puff inhalation Q4H CHET (RT) ??? montelukast (SINGULAIR) tablet 10 mg 10 mg feeding tube Nightly ??? pantoprazole (PROTONIX) injection 40 mg 40 mg intravenous Daily ??? polyethylene glycol (MIRALAX) packet 17 g 17 g feeding tube Daily ??? potassium, sodium phosphates (PHOS-NAK) 280-160-250 mg packet 1 packet 1 packet feeding tube TID AC ??? predniSONE (DELTASONE) tablet 60 mg 60 mg feeding tube Daily ??? white petrolatum-mineral oil (REFRESH PM) eye ointment each eye BID PRN Meds: fentaNYL, 25 mcg, 25 mcg at 08/24/20 0400 ??? senna-docusate, 1 tablet OBJECTIVE Vitals: The patient's height is 162.6 cm (5' 4.02 ) and weight is 65 kg (143 lb 4.8 oz). Her temperature is37.4 ??C (99.3 ??F). Her blood pressure is 123/50 and her pulse is 80. Her respiration is 14 and oxygen saturation is 100%. Vitals: 08/24/20 0900 08/24/20 0907 08/24/20 1000 08/24/20 1144 BP: (!) 107/42 123/50 BP Location: Patient Position: Pulse: 60 62 53 80 Resp: 14 14 Temp: 37.7 ??C (99.9 ??F) 37.4 ??C (99.3 ??F) TempSrc: SpO2: 99% 99% 98% 100% Weight: Height: Intake/Output: Intake/Output Summary (Last 24 hours) at 08/24/2020 1207 Last data filed at 08/24/2020 1000 Gross per 24 hour Intake 631.95 ml Output 835 ml Net -203.05 ml Physical Exam: General: Appears uncomfortable, appearing to gesture with left hand, in restraints Eyes: No conjunctival pallor or injection, no icterus Cardiac: Regular rhythm, 2+ peripheral pulses, no LE edema, no JVD Pulm: Mechanically ventilated, symmetric breath sounds. GI/Abd: Soft, nontender, nondistended; normoactive bowel sounds MSK: no joint effusions or major deformities Skin: No rash or bruises Extremities: Warm and well perfused Neuro: RASS -1, CN II-XII grossly intact, moves all extremities spontaneously, not following commands. LABORATORY DATA Lab Results Component Value Date WBC 11.0 (H) 08/24/2020 HGB 7.4 (L) 08/24/2020 HCT 26.1 (L) 08/24/2020 MCV 78.6 (L) 08/24/2020 LABPLAT 254 08/24/2020 Lab Results Component Value Date GLUCOSE 154 08/24/2020 CALCIUM 9.1 08/24/2020 SODIUM 144 08/24/2020 POTASSIUM 3.9 08/24/2020 CO2 39 (H) 08/24/2020 CHLORIDE 101 08/24/2020 BUNSER 19 08/24/2020 CREATININE 0.56 (L) 08/24/2020 Lab Results Component Value Date ALT 12 08/23/2020 AST 17 08/23/2020 ALKPHOS 117 08/23/2020 BILITOT 0.3 08/23/2020 No results found for: IRON, TIBC, FERRITIN Lab Results Component Value Date INR 0.9 08/23/2020 Lab Results Component Value Date HGBA1C 6.2 (H) 05/10/2015 Lab Results Component Value Date TSH 0.26 (L) 08/23/2020 Lab Results Component Value Date SPECGRAVU >1.042 (H) 08/23/2020 BLOODUR Negative 08/23/2020 LEUKESTUR Negative 08/23/2020 Lab Results Component Value Date TROPONINI <0.03 05/10/2015 Lab Results Component Value Date CHOL 194 08/23/2020 Lab Results Component Value Date HDL 43 08/23/2020 Lab Results Component Value Date LDLCALC 120 08/23/2020 LDL 97 05/10/2015 Lab Results Component Value Date TRIG 154 (H) 08/23/2020 No components found for: 25OHVITD Radiology and Other Diagnostics: Xr Abdomen Ap 1 Vw Result Date: 08/24/2020 A single view of the abdomen is submitted for evaluation. Gastric tube tip is peripyloric and side-port is in the antrum of the stomach. There are partially visualized patchy airspace opacities predominantly in the right lung, which could represent sequela of aspiration or pneumonia. Dictated by: Migel Bay M.D. The radiology attending physician has personally reviewed this study, and had reviewed and/or edited this written report and agrees with it. Electronically signed by: Agus Brizuela M.D. Ct Abdomen Pelvis W Contrast Result Date: 08/23/2020 1. Small to moderate hiatal hernia with changes of aspiration within the right lower lobe, possiblywith superimposed aspiration related pneumonia. Small right pleural effusion. 2. Linear peripheral areas of hypoattenuation in the right kidney are nonspecific but can be seen in the setting of pyelonephritis or as a sequela prior scarring. Correlate with flank pain and urinalysis. 3. Moderate to severe compression fractures at T11 and T12, new from 05/13/2015. Dictated by: Leonela Louise M.D. The radiology attending physician has personally reviewed this study, and had reviewed and/or edited this written report and agrees with it. Electronically signed by: Vaughn Gusman M.D. Xr Chest 1 View Result Date: 08/24/2020 First exam 08/23/2020 9:33 PM. Comparison is made to single view chest radiograph dated 08/23/2020 7:11 PM. Unchanged small lung volumes with right basilar opacities favored to represent atelectasis versus aspiration. No pleural effusion or pneumothorax. Cardiac mediastinal silhouette is stable. Second exam 08/23/2020 10:49 PM. Endotracheal tube tip projects 2 cm above the tricia. Gastric tube courses caudally beneath left hemidiaphragm out of the [id number]. Slightly improved aeration in the right lung base with mild residual atelectasis. Dictated by: Roshni Vasquez M.D. The radiology attending physician has personally reviewed this study, and had reviewed and/or edited this written report and agrees with it. Electronically signed by: Octavio Ricketts M.D. Xr Chest 1 View (portable) Result Date: 08/24/2020 First exam 08/23/2020 9:33 PM. Comparison is made to single view chest radiograph dated 08/23/2020 7:11 PM. Unchanged small lung volumes with right basilar opacities favored to represent atelectasis versus aspiration. No pleural effusion or pneumothorax. Cardiac mediastinal silhouette is stable. Second exam 08/23/2020 10:49 PM. Endotracheal tube tip projects 2 cm above the tricia. Gastric tube courses caudally beneath left hemidiaphragm out of the [id number]. Slightly improved aeration in the right lung base with mild residual atelectasis. Dictated by: Roshni Vasquez M.D. The radiology attending physician has personally reviewed this study, and had reviewed and/or edited this written report and agrees with it. Electronically signed by: Octavio Ricketts M.D. Xr Chest 1 Vw Portable Result Date: 08/23/2020 Lung volumes are very small. There are patchy airspace opacities throughout the right lung, most notable in the right lung base. Some of these have a nodular appearance. Findings may represent sequela of aspiration or pneumonia. There is no pleural effusion. There is no pneumothorax. The cardiomediastinal silhouette is unchanged. Dictated by: Leonela Louise M.D. The radiology attending physician has personally reviewed this study, and had reviewed and/or edited this written report andagrees with it. Electronically signed by: Vaughn Gusman M.D. Ct Stroke Head Wo Contrast Result Date: 08/23/2020 No acute intracranial abnormality. MRI is more sensitive for early ischemic changes. Dictated by: Leonela Louise M.D. The radiology attending physician has personally reviewed this study, and had reviewed and/or edited this written report and agrees with it. Electronically signed by: Karina Meier M.D. ASSESSMENT and PLAN #Acute Hypercapnic Respiratory Failure Patient presenting in acute hypercapnic respiratory failure likely to COPD Exacerbation vs Aspiration PNA requiring intubation on 08/23 PM after arrival to the ICU due to increased WOB and altered mental status. Wheezes and crackles on exam. Unclear precipitant at this time though per chart review concern for polypharmacy in the setting of multiple benzo prescriptions (Clonazepam and Tenazepam) along with opiates. Given patient without risk factors for HAP will treat for CAP and evaluate for other possible infectious causes. 08/23 VBG 7.16 >125 158 >> 7.17 125 41 >> 7.14 >125 31 UA 1+ protein, trace bacteria CXR Small lung volumes with patchy airspace opacities on the R. No pleural effusion. CXR post intubation with unchanged patchy airspace opacities. ETT in place 1cm above tricia and waspulled back 1 cm. - Abx: Vanc/Cefe (08/23); Azithro (08/23 - ) Ceftriaxone (08/23 - ) - Prednisone 60mg Daily, for 5 days (due to severity) - Albuterol and Ipratropium HFA q4hrs - RVP neg, Legionella Ag neg, COVID neg - MRSA nasal swab pending - BCx and trach asp Cx 08/23 NGTD - Intubated 08/23; Wean Vent as tolerated - Fentanyl and Precedex. ?? #Altered Mental Status Suspect toxic-metabolic in etiology in the setting of above respiratory failure, likely 2/2 hypercapnia. Will monitor for resolution as patient's symptoms resolve. Per patient daughter at baseline she is A&O x3. 08/23 Ammonia 52H, TSH 0.26L, T4 1.18, Lactate 0.5 hCT NAIA, UDS with benzos and oxycodone. - Consider bMRI if AMS unresolving - Further evaluation as above ?? #T Spine Fractures Suspect secondary to fall 3 months ago where patient was reported to have sustained spinal fractures. Has been taking opiates for pain at home. 08/23 CT Abd/Pelv Moderate to Severe Compression fractures at T11 and T12. - Continue to monitor ?? #HTN: Hold Home HCTZ 12.5mg Oral Daily, Metoprolol Succinate 100mg Daily. Reassess need when more stable. ?? #COPD: Continue Home Monteleukast 10mg Daily. Treat as above ?? #GERD: Continue Home Pantoprazole 40mg Daily ?? Code Status: Full Code Lines/Tubes: Peripheral IV 08/23/20 20 G Right Antecubital (Active) Number of days: 0 Peripheral IV 08/23/20 20 G Right Forearm (Active) Number of days: 0 Urethral Catheter Temperature probe (Active) Number of days: 0 ?? Restraints: [place] Dispo: ICU Prophylaxis: - F (Feeding): NPO Diet - A (Analgesia):??Fentanyl - S (Sedation):??Precedex - T (Thromboembolic ppx): Lovenox - H (HOB elevation):>30 - U (Stress ulcer ppx): Pantoprazole - G (Glycemic control):N/A Attending MD to make comment on patient risk/complexity. Donta Lizarraga MD PhD PGY-1, Internal Medicine Cosigned by Jarred Forte MD at 08/25/2020 6:39 AM DOCENT COORDINATOR NT COORDINATOR NT COORDINATOR NT COORDINATOR documented in this encounter H&P Notes * Phyllis Li MD - 08/23/2020 10:01 PM CST MICU HISTORY AND PHYSICAL Patient Name: Phoebe Hillman Date of / Age: 2 1940 / 79 y.o. Gender: female Room: Attending: [place] [id number]/[place] [id number] Aimee Conroy MD [facility] PCP: Jason Wiggins MD SUBJECTIVE ADMITTING DIAGNOSIS: STROKE CHIEF COMPLAINT/REASON FOR ADMISSION: Chief Complaint Patient presents with ??? Stroke HISTORY OF PRESENT ILLNESS Phoebe Hillman is a 79 y.o. female who has a PMH of pHTN, COPD (b/l 3L O2), HTN and GERD who presented for dyspnea and L sided weakness who was BIBEMS as Code Stroke requiring BiPAP. Patient's LKN 08/22 at 2200. Patient was having difficulty waking up this morning and when evaluatedby EMS had left sided-weakness with vomit around the mouth. In the ED, patient was afebrile, normotensive, P 86, RR 17, and SpO2 94% and dyspneic with increased WOB and diffuse wheezing noted to have mild abdominal distention mildly tender to palpation. Patient was evaluated by Neurology NIHSS 7 on admission but non-focal. hCT showed cerebral atrophy. She was NO-GO for tPA as presenting outside window and did not undergo CTA/CTP due to thought this was a stroke mimic in the setting of toxic-metabolic derangements. Labs were notable for WBC 7.2, microcytic anemia Hb 8L MCV 80.9, Na 145, K 4.6, BUN 17, Cr 0.59, LFTs WNL, Glu 109, Ammonia 52H, Lactate 0.5L, TSH 0.26L, Trop <4. VBG 7.18 >125 36. UA with 1+ protein, trace bacteria, no LE or nitrite. COVID Negative. CXR whoed small lung volumes and patchy airspace opacitiies throughout the right lung.CT Abd/Pelv with mild to mod hiatal hernia, changes of aspiration in RLL and small R pleural effusion. Non-specific hypoattentuation in the R kidney that can be seen in s/o pyelonephritis. Mod to severe compression fracture of T11 and T12. EKG NSR and no significant change from 2015. She was given Vanc/Cefe/Azithro, Methyprednisolone and DuoNebs for presumes Aspiration Pneumonia/COPD Exacerbation and placed on BiPAP. Patient was admitted to MICU for further management and evaluation of patient's acute hypercapneic respiratory failure requiring BiPAP. On arrival to MICU patient was on BiPAP at 24/10 pulling low TVs. She was awake and intermittently responsive to commands. She was eventually intubated. Family Communication: Phoebe Hillman's daughter, Kim Dodson was contacted regarding the plan of care for the patient. Family was encouraged to asked questions and concerns were discussed. Per patient's daughter hermother had a fall three months ago that resulted in spinal fractures. Additionally, patient should to be using CPAP at night at home but only using it intermittently. She has not had surgery. Ms. Dodson expressed that her mother's wishes was to be Full Code. ROS: Review of Systems Unable to perform ROS: Mental status change History: Past Medical History: Diagnosis Date ??? COPD (chronic obstructive pulmonary disease) (CMS/HCC) ??? Hypertension ??? Thoracic spine fracture (CMS/HCC) 3 months ago History reviewed. No pertinent surgical history. Home Meds: No medications prior to admission. Allergies: Allergies: No Known Allergies Social History: Phoebe Hillman reports that she quit smoking about 16 years ago. She does not have any smokeless tobacco history on file. Family History: family history is not on file. CURRENT MEDICATIONS: Scheduled Medications: Scheduled Medications Medication Dose Route Frequency ??? albuterol HFA (PROVENTIL HFA,VENTOLIN HFA,PROAIR HFA) 90 mcg/actuation inhaler 16 puff 16 puff inhalation Q4H CHET (RT) ??? azithromycin (ZITHROMAX) 500 mg/255 mL in sodium chloride 0.9% (premix) 500 mg 500 mg intravenous Q24H CHET ??? cefTRIAXone (ROCEPHIN) 1,000 mg/10 mL in sterile water (premix) 1,000 mg 1,000 mg intravenous Q24H CHET ??? heparin 5,000 unit/mL injection 5,000 Units 5,000 Units subcutaneous Q8H CHET ??? ipratropium (ATROVENT HFA) 17 mcg/actuation inhaler 8 puff 8 puff inhalation Q4H CHET (RT) ??? montelukast (SINGULAIR) tablet 10 mg 10 mg feeding tube Nightly ??? [START ON 08/25/2020] pantoprazole (PROTONIX) injection 40 mg 40 mg intravenous Daily ??? phenylephrine (MARTINA-SYNEPHRINE) 1 mg/10 mL (100 mcg/mL) in sodium chloride 0.9% (premix) - ADS Override Pull ??? polyethylene glycol (MIRALAX) packet 17 g 17 g oral Daily ??? predniSONE (DELTASONE) tablet 60 mg 60 mg oral Daily Continuous Medications: Current Facility-Administered Medications Medication Dose Route Frequency Last Admin ??? dexMEDEtomidine 0.1-1.5 mcg/kg/hr intravenous Titrated ??? fentaNYL 12.5-400 mcg/hr intravenous Titrated Stopped at 08/24/20 0100 ??? propofol 5-50 mcg/kg/min intravenous Titrated 30 mcg/kg/min at 08/24/20 0100 PRN Medications: OBJECTIVE Vitals: Arrival Vitals Temp 08/23/20 1855 (!) 35.8 ??C (96.5 ??F) Pulse 08/23/20 1800 86 Resp 08/23/20 1820 17 BP 08/23/20 1754 131/73 SpO2 08/23/20 1800 94 % Temp src 08/23/20 1855 Axillary Heart Rate Source -- Patient Position -- BP Location -- FiO2 (%) 08/23/20 1800 80 % 24hr Min/Max: Temp Min: 35.1 ??C (95.2 ??F) Max: 37.8 ??C (100 ??F) Pulse Min: 68 Max: 114 BP Min: 85/38 Max: 187/89 Resp Min: 10 Max: 25 SpO2 Min: 51 % Max: 100 % FiO2 (%) Min: 40 % Max: 80 % Current Vitals: BP (!) 85/38 (BP Location: Left arm, Patient Position: Lying) Pulse 86 Temp 37.8 ??C (100 ??F) (Bladder) Resp 18 Ht 162.6 cm (5' 4.02 ) Wt 65 kg (143 lb 4.8 oz) SpO2 99% BMI 24.59 kg/m?? Intake/Output: No intake/output data recorded. I/O this shift: In: 536.9 [I.V.:16.9; IV Piggyback:520] Out: 625 [Urine:625] LDA: Urethral Catheter Temperature probe (Active) Placement Date/Time: 08/23/201912 Catheter Type: Temperature probe Catheter Balloon Size: 10 mL Urine Returned: Yes Number of days: 0 Vent settings for last 24 hours: Adult Vent Mode: Volume control/Assist control FiO2 (%): [40 %-80 %] 40 % S RR: [18-24] 18 S VT: [450 mL] 450 mL PEEP/CPAP/EPAP (cm H2O): [5 cm H20] 5 cm H20 MAP (cmH2O): [11-13] 11 Hemodynamic parameters for last 24 hours: Physical Exam (Prior to Intubation) GENERAL: Laying in bed moaning, increased work of breathing, in acute distress HENT: NECK: Normocephalic, atraumatic, anicteric sclera. Neck is supple and non-tender. CARDIAC: Normal rate and regular rhythm. Normal S1 and S2. No peripheral edema. PULM: Diffuse crackles. Poor inspiratory effort. ABDOMEN: Soft, distended, nontender. Positive bowel sounds. No guarding or rebound. EXTREMITIES: Warm and well-perfused. Peripheral pulses symmetric intact. SKIN: No rashes or bruising. NEURO: Awake. Intermittently follows 1 step commands. Spontaneously moves upper and lower extremities. PSYCH: Unable to assess secondary to mental status. REVIEW OF LABORATORY DATA AND DIAGNOSTICS Recent Labs Lab Units 08/23/20212808/23/20 1758 HEMOGLOBIN g/dL 8.1* 8.0* HEMATOCRIT % 31.8* 30.5* WBC K/cumm 14.5* 7.2 PLATELETS K/cumm 240 275 Recent Labs Lab Units 08/23/202128 SODIUM mmol/L 144 POTASSIUM PLASMA mmol/L 4.0 CHLORIDE mmol/L 101 CO2 mmol/L 44* ANIONGAP mmol/L <1* BUN SERUM mg/dL 18 CREATININE mg/dL 0.59* CALCIUM mg/dL 8.9 MAGNESIUM mg/dL 2.7* Recent Labs Lab Units 08/23/20 1848 ALBUMIN g/dL 4.2 ALK PHOS Units/L 117 AST Units/L 17 ALT Units/L 12 BILIRUBIN TOTAL mg/dL 0.3 BILIRUBIN DIRECT mg/dL <0.2 Recent Labs Lab Units 08/23/20 1758 08/23/20 1756 APTT sec 24* -- INR -- 0.9 Recent Labs Lab Units 08/23/20 1848 TSH mcIUnit/mL 0.26* Recent Labs Lab Units 08/23/20 2343 PH ART 7.47* PCO2 ART mmHg 50* PO2 ART mmHg 163* BASE EXC ART mmol/L 11 Microbiology: No results found for requested labs within last 720 hours. I have reviewed the above laboratory results and discussed with my attending. Imaging Results: Ct Abdomen Pelvis W Contrast Result Date: 08/23/2020 1. Small to moderate hiatal hernia with changes of aspiration within the right lower lobe, possiblywith superimposed aspiration related pneumonia. Small right pleural effusion. 2. Linear peripheral areas of hypoattenuation in the right kidney are nonspecific but can be seen in the setting of pyelonephritis or as a sequela prior scarring. Correlate with flank pain and urinalysis. 3. Moderate to severe compression fractures at T11 and T12, new from 05/13/2015. Dictated by: Leonela Louise M.D. The radiology attending physician has personally reviewed this study, and had reviewed and/or edited this written report and agrees with it. Electronically signed by: Vaughn Gusman M.D. Xr Chest 1 Vw Portable Result Date: 08/23/2020 Lung volumes are small. There are patchy airspace opacities throughout the right lung, most notablein the right lung base. Findings may represent sequela of aspiration or pneumonia. There is no pleural effusion. There is no pneumothorax. The cardiomediastinal silhouette is unchanged. Dictated by: Leonela Louise M.D. Ct Stroke Head Wo Contrast Result Date: 08/23/2020 No acute intracranial abnormality. MRI is more sensitive for early ischemic changes. Dictated by: Leoenla Louise M.D. The radiology attending physician has personally reviewed this study, and had reviewed and/or edited this written report and agrees with it. Electronically signed by: Karina Meier M.D. I have reviewed the above imaging/diagnostic results and discussed with my attending. ASSESSMENT & PLAN Phoebe Hillman is a 79 y.o. female who PMH of pHTN, COPD (b/l 3L O2), HTN and GERD who presented for dyspnea and L sided weakness who was BIBEMS as Code Stroke now requiring BiPAP. #Acute Hypercapnic Respiratory Failure Patient presenting in acute hypercapnic respiratory failure likely to COPD Exacerbation vs Aspiration PNA requiring intubation on 08/23 PM after arrival to the ICU due to increased WOB and altered mental status. Unclear precipitant at this time though per chart review concern for polypharmacy in thesetting of multiple benzo prescriptions (Clonazepam and Tenazepam) along with opiates. Given patient without risk factors for HAP will treat for CAP and evaluate for other possible infectious causes. 08/23 VBG 7.16 >125 158 >> 7.17 125 41 >> 7.14 >125 31 UA 1+ protein, trace bacteria COVID, RSV and influenza Negative CXR Small lung volumes with patchy airspace opacities on the R. No pleural effusion. CXR post intubation with unchanged patchy airspace opacities. ETT in place 1cm above tricia. - Abx: Vanc/Cefe (08/23); Azithro (08/23 - ) Ceftriaxone (08/23 - ) - Prednisone 60mg Daily, for 5 days - Albuterol and Ipratropium HFA q4hrs - Trach asp, BCx, MRSA, RVP, Legionella Ag - Intubated 08/23; Wean Vent as tolerated; Pullback ETT 1cm. - Propofol and Fentanyl per protocol; Wean sedation as tolerated #Altered Mental Status Suspect toxic-metabolic in etiology in the setting of above respiratory failure. Will monitor for resolution as patient's symptoms resolve. Per patient daughter at baseline she is A&O x3. 08/23 Ammonia 52H, TSH 0.26L, T4 1.18, Lactate 0.5 hCT NAIA - FT3, UDS - Consider bMRI if AMS unresolving - Further evaluation as above #T Spine Fractures Suspect secondary to fall 3 months ago where patient was reported to have sustained spinal fractures. Has been taking opiates for pain at home. 08/23 CT Abd/Pelv Moderate to Severe Compression fractures at T11 and T12. - Continue to monitor #HTN: Hold Home HCTZ 12.5mg Oral Daily, Metoprolol Succinate 100mg Daily. #COPD: - Continue Home Monteleukast 10mg Daily #GERD: - Continue Home Pantoprazole 40mg Daily Code Status: Full Code Lines/Tubes: Peripheral IV 08/23/20 20 G Right Antecubital (Active) Number of days: 0 Peripheral IV 08/23/20 20 G Right Forearm (Active) Number of days: 0 Urethral Catheter Temperature probe (Active) Number of days: 0 Restraints: [place] Dispo: ICU Prophylaxis: - F (Feeding): NPO Diet - A (Analgesia): Fentanyl - S (Sedation): Propofol, Precedex - T (Thromboembolic ppx): Heparin - H (HOB elevation):>30 - U (Stress ulcer ppx): Pantoprazole - G (Glycemic control):N/A Emergency Contacts: Extended Emergency Contact Information Primary Emergency Contact: Contact,No [place] Relation: None Attending MD to make comment on patient risk/complexity. Phyllis Li MD Neurology Resident, PGY-1 08/24/2020 1:10 AM Cosigned by Aimee Conroy MD at 08/29/2020 7:14 AM DOCENT COORDINATOR NT COORDINATOR NT COORDINATOR NT COORDINATOR Associated attestation - Aimee Conroy MD - 08/29/2020 7:14 AM DOCENT COORDINATOR Critical Care Time: I have spent 45 minutes in full attendance with this critically ill patient making frequent reassessments and decisions regarding this patient's complex medical care. Critical care time was exclusive of separately billable procedures, treating other patients and teaching time. Critical care was necessary to treat or prevent imminent or life-threatening deterioration of the following conditions: # Acute on chronic hypercapnic respiratory failure # COPD exacerbation # Possible aspiration pneumonitis # metabolic encephalopathy # T spine fractures Attending Documentation: Intubated, vent support, serial ABG/CXR, steroids, nebulizers, follow-up cultures, treatment of possible community acquired pneumonia I have seen and examined this patient on the day of service. I have reviewed and confirmed the history, physical exam, laboratory and radiographic data with the house staff as documented in the ICU resident note. I have reviewed and discussed my treatment plan with the ICU team and other medical/at&t retailer sales consultant staff. documented in this encounter Procedure Notes * Luis Alfredo Murray MD - 08/23/2020 10:29 PM CSTAssociated Order(s): Intubation Post-Procedure Diagnose(s): Acute hypercapnic respiratory failure (CMS/HCC) (HCC) Intubation Date/Time: 08/23/2020 10:29 PM Performed by: Luis Alfredo Murray MD Authorized by: Aimee Conroy MD [place] Protocol: RN Notified of Procedure: yes Patient's stated name/ matches armband: Patient unable to verbalize - armband matched to name and within medical record Consent form signed, dated, timed; matches correct patient, intended procedure and site: No consentform due to emergent status Imaging: Pertinent imaging reviewed, correctly oriented and match to patient identifiers Lab/Diag test results: Pertinent lab/diag tests reviewed and match to patient identifiers Supplies, devices and special equipment are available: yes Site/side marked: yes Indications: Hypercapnia and respiratory failure Intubation method: Video-assisted Patient status: RSI Patient position: Cervical collar not in place during intubation Preoxygenation: Non-invasive positive pressure Mask Ease: not attempted Pretreatment meds: None Sedation: Etomidate Paralytic: Rocuronium Laryngoscope size: Mac 4 Tube size (mm): 7.5 Tube type: Cuffed Number of attempts: 1 Was this a difficult intubation?: No Cricoid pressure: Yes Cords visualized: Yes Post-procedure assessment: Chest rise and ETCO2 monitor Breath sounds: Equal Cuff inflated: Yes ETT to lip (cm): 24 Tube secured with: ETT ayers Patient tolerance: Patient tolerated the procedure well with no immediate complications Luis Alfredo Murray MD Cosigned by Aimee Conroy MD at 08/23/2020 11:56 PM DOCENT COORDINATOR NT COORDINATOR NT COORDINATOR Associated attestation - Aimee Conroy MD - 08/23/2020 11:56 PM DOCENT COORDINATOR I was present for the entire procedure. documented in this encounter Consult Notes * Norris Head MD - 08/23/2020 6:16 PM CSTAssociated Order(s): IP CONSULT TO NEUROLOGY Hyperacute Stroke Team - [facility] Consult Note Initial information: Narrative: Ms. Hillman is a 79 y.o. female who presents as an acute tPA page. Requesting provider: Dr. Hanson Reason for consult: Acute stroke suspected Page time (24h format): 08/23/2020 1748 Last known well Date Last Known Well : 08/22/20 Time Last Known Well: 2199 Discovery of Symptoms - Date: 08/23/20 Discovery of Symptoms - Time: 0900 (08/23/20 182) Chief complaint: AMS and left arm weakness HPI: Hx is very limited as ex- is a poor historian and pt is encephalopathic Ms. Hillman is a 79 y.o. year old female with a hx of COPD on oxygen, HTN and prior hx of PNA who p/w to the ED with confusion and possible ?left arm weakness. LNK yesterday (08/22) 2200. Discovery time this morning (08/23) with confusion. Pt complaining of SOB. Stroke risk factors: Age over 55 and Hyperlipidemia Notable home meds (i.e., anticoagulation): none Past medical history, past surgical history, current medications, allergies, family history and social history were reviewed, and are noted at the end of this note. Vitals: 08/23/20 1800 BP: Pulse: 86 SpO2: 94% NIH Stroke Scale Interval: Baseline Level of Consciousness (1a.): Alert, keenly responsive LOC Questions (1b.): Answers one question correctly LOC Commands (1c.): Performs both tasks correctly Best Gaze (2.): Normal Visual (3.): No visual loss Facial Palsy (4.): Normal symmetrical movements Motor Arm, Left (5a.): No drift Motor Arm, Right (5b.): No drift Motor Leg, Left (6a.): Some effort against gravity Motor Leg, Right (6b.): Some effort against gravity Limb Ataxia (7.): Absent Sensory (8.): Step-yg-jcwcitom sensory loss, patient feels pinprick is less sharp or is dull on theaffected side, or there is a loss of superficial pain with pinprick, but patient is aware of being touched(left) Best Language (9.): Rklj-ji-gilsqnaq aphasia Dysarthria (10.): Normal Extinction and Inattention (11.) (Formerly Neglect): No abnormality Total: 7 (08/23/201826) [facility] labs (FSBG, INR, platelets, Xa): Lab Results Lab Value Date/Time GLUCOSE 109 08/23/2020 1756 INR 0.9 08/23/2020 1756 HCT findings: moderate cerebral atrophy Thrombolytic decision: tPA decision: NO GO. Rationale: Last known well greater than 4.5 hours ago and Diagnosis is not likely stroke, more likely a stroke mimic tPA decision time (24 hour format): 1800 tPA bolus time (24 hour format): N/A, tPA not given BP prior to tPA bolus: N/A, tPA not given Reason for tPA delay (>30 mins [id number]-wt-[id number], if applicable): N/A, patient did not receive tPA Thrombectomy decision: LVO on CTA?: N/A, patient did not have a CTA CTA read time/fellow: N/A, patient was not a candidate for CTA CTP: ?? Core volume: N/A, CT perfusion not performed mL ?? Penumbra volume: N/A, CT perfusion not performed mL ?? Mismatch ratio: N/A, CT perfusion not performed Baseline functional status: MRS 0: The patient has no symptoms. Intervention: NO-GO: Rationale: Likely stroke mimic Hyperacute MRI Indication: Not performed Findings: N/A, not performed Wake-up stroke: ?? Time of symptom discovery (24h format): N/A, patient not a candidate for WAKE-UP protocol ?? DWI-FLAIR mismatch: N/A, patient not a candidate for protocol ?? MRI read time/fellow: N/A, patient was not a candidate for protocol Physical Examination: BP 131/73 Pulse 86 Wt 70.8 kg (156 lb) SpO2 94% BMI 26.78 kg/m?? GEN: pt with black vomit around mouth and chest Neurologic Examination: Mental status: A&Ox2 (self, hospital but not name of hospital, oriented to president but not totime). Inattentive. Speech: Moderate expressive and receptive aphasia Cranial Nerves: II: Pupils equal and reactive bilaterally, visual phillips full, III/IV/: Extraocular movements intact without nystagmus and VII: Facial muscle activation normal bilaterally Motor: No pronator drift. BUE at least 4/5. BLE moves antigravity to noxious stimuli. Reflexes: biceps 2+, patellae 1+. No spreading. No clonus. Toes downgoing bilaterally. Roxann's absent bilaterally. Sensory: provided contradictory information: initially said decreased sensation to light touch on LUE and LLE but 1 min later reported no changes in sensation to light touch Coordination Gait: Finger to nose intact bilaterally without ataxia Inattention: No extinction/inattention to double simultaneous tactile stimulation Assessment & Plan: Ms. Hillman is a 79 y.o. year old female with a hx of COPD on oxygen, HTN and prior hx of PNA who p/w to the ED with confusion and possible ?left arm weakness. LNK yesterday (08/22) 2200. Discovery time this morning (08/23) with confusion. NIHSS 7 on admission. Neuro-exam non-focal. HCT showed cerebral atrophy. Hx and non-focal exam concerning for a stroke mimic, most likely toxic/metabolic encephalopathy. Pt was NO-GO for tPA due to likely stroke mimic. Pt did not undergo CTA/CTP despite NIHSS > 6 as likely stroke mimic. # Acute encephalopathy - Evaluate for toxic/metabolic/systemic infx etiologies and treat accordingly Disposition: per ED Case discussed with chief resident Dr Hanna Kennedy. The [facility] team will sign off at this time. For acute neurologic change and repeat stroke assessment, please activate the tPA pager at [phone]. For a non-emergent questions please call the neurology consult cellphone at [phone]. Norris Head MD MSc PGY-2 Neurology [phone] 08/23/2020, 6:28 PM Subjective Past Medical History: No past medical history on file. Past Surgical History: No past surgical history on file. Medications: No current facility-administered medications on file prior to encounter. No current outpatient medications on file prior to encounter. Allergies: No Known Allergies Family History: No family history on file. Social History: Social History Tobacco Use ??? Smoking status: Not on file Substance Use Topics ??? Alcohol use: Not on file ??? Drug use: Not on file Review of Systems: A complete ROS was unable to be performed due to the patient's emergent medical condition specifically due to pt's encephalopathy NT COORDINATOR documented in this encounter Nursing Notes * Sherrill Rocha RN - 08/30/2020 6:22 PM CST Discharge paper given and explained to patient. Discharge with daughter. NT COORDINATOR * Juan A Noel RN - 08/30/2020 5:32 AM CST About 340 am, pt became confused asking about going to the kitchen asking for pancake, rice crispies etc and refused what we have in the fridge. Pt redirected but still insisted on the same. Pt verbalized, 'I feel like I have been hit by a truck', when asked what that meant, she said she was nauseatic and she didnt like the hospital gown because it was too big for her and requested for pyjamas. RN went to get Zofran for pt who eventually refused it saying she didn't want it anymore. At this time pt was oriented to place and self, unable to tell the year, month or current president or what brought her to the hospital. Pt denied pain. MD was notified on these changes in mental status. Follow up call by the MD found the pt asleep again and no new orders were placed. Vitals remained wdl. Willcontinue to monitor. NT COORDINATOR * Delia Quiros RN - 08/29/2020 6:48 PM CST Beginning of shift pt was A&Ox4, cooperative, and used the call light. Around lunch pt began toget out of bed without staff assist. Bed and chair alarm were place and pt was educated on the importance of calling before getting out of bed. Pt to discharge to SNF and when RN went in for teachingpt refused to leave. Social work and MD notified. Pt to stay in the hospital, ativan, ramelteon, and oxycodone discontinued and UA ordered. Pt has continued to get out of bed and chair multiple timesdespite RN educating patient on being a fall risk and bed/chair alarm. Pt is still A&Ox4 but making odd statements like this bed and toilet are broken when neither are broken, field map editor was explaining importance of the call light and after pt asked what dogs. NT COORDINATOR * Hanna Carolina RN - 08/27/2020 7:51 PM CST Brought to the unit on a bed in a stable condition.Settled in and room orientation done. NT COORDINATOR * Kalpana Brizuela RN - 08/26/2020 6:42 PM CST Pt extubated to bipap 10/5 40%. Pt resting comfortably on cot. precedex remains on at 0.8. Daughter updated to pt condition and will visit tomorrow. Pt notified NT COORDINATOR * Kalpana Brizuela RN - 08/25/2020 4:36 PM CST Attempted to do SBT x 2 for possible extubation. Pt with high anxiety and each time had to be placed back on full vent support. MD notified and at bedside. Pt was explained in great detail the process of extubation and pt verbalized understanding by writing on note pad. Pt has high anxiety at baseline and is on home medications. Per MD, home medications were restarted. Daughter update and questions answered. Pt is currently resting comfortably on cot. NT COORDINATOR documented in this encounter ED Notes * Michael Tinajero MD - 08/23/2020 6:07 PM CST HPI Chief Complaint Patient presents with ??? Stroke 79 yo F with h/o moderate to severe pHTN, COPD presenting with altered mental status. Patient last known normal was around last night around bed time. Per family member she was having difficulty waking up this morning. Per EMS, patient was found at home weak with left sided weakness. Also found to be vomiting. Patient History: Patient Active Problem List Diagnosis Date Noted ??? Disorder of lung 05/20/2015 Class: Chronic History reviewed. No pertinent past medical history. History reviewed. No pertinent surgical history. No family history on file. Social History Tobacco Use ??? Smoking status: Not on file Substance Use Topics ??? Alcohol use: Not on file ??? Drug use: Not on file Social History Social History Narrative ??? Not on file Review of Systems Unable to review ROS due to AMS Physical Exam ED Triage Vitals Temp Pulse Resp BP SpO2 08/23/20 1855 08/23/20 1800 08/23/20 1820 08/23/20 1754 08/23/20 1800 (!) 35.8 ??C (96.5 ??F) 86 17 131/73 94 % Temp src Heart Rate Source Patient Position BP Location FiO2 (%) 08/23/20 1855 -- -- -- 08/23/20 1800 Axillary 80 % General: confused, in moderate distress. Resp: Increased work of breathing. Diffuse wheezing in all lung phillips. CV: RRR. Nml S1, S2. No m/r/g. No peripheral edema. Intact distal pulses. GI: distended, patient moans to palpation MSK: No joint deformities, swelling. Heme: No bruising, petechiae. Neuro: A&O to person only. Intermittently follows commands and answers question. PERRL. No focal deficits. MDM Medical Decision Making Differential Diagnosis or Management Options: 79 yo F with h/o moderate to severe pHTN, COPD presenting with encephalopathy. Ddx: Stroke, COPD exacerbation, infection Attending Summary of Care ED Course as of Aug 23 2054 Time: 08/23 1800 Comment: Teaching Resident Note: 79 yo F w COPD 3L O2, here w AMS. LKN 9pm last night, per partner confused today. EMS reports some L sided weakness, improved. Pt unable to provide Hx. Dyspneic, w increased WOB. Diffuse wheezing w diminished aeration, RRR, abdo mild distention w mild TTP. Dried vomitus at mouth. No CHELSEA. AxOx1-2, moves all extremities antigravity, 4/5 UE and 3/5 bilateral LE, no obvious sensory deficits. Pt was called a code stroke, neuro at bedside. Sx most consistent w encephalopathy, not localizing, likely COPDE, poss infx etiology, covid, electroly/metabolic derangement, poss intra-abdo patholgoy, seizure. Plan for labs, CXR, CT A/P, head CT. Tl, elliott. Admission to ICU By: Juan Antonio Villarreal MD Time: 08/23 1824 Value: PCO2, Venous(!!): >125 Comment: Starting on bipap By: Juan Antonio Villarreal MD Time: 08/23 1834 Value: CT Stroke Head WO Contrast Comment: My ED prelim read: no obvious areas of ischemic stroke or ICH. By: Agatha Loredo MD Time: 08/23 1835 Value: CT Abdomen Pelvis W Contrast Comment: My ED prelim read: Bowel wall hernia without obvious incarceration. Multiple hypodense areas within nodular liver, one significantly larger than others. Compressed bowel. No obvious free fluid. Opacification noted in lung bases (R>L) concerning for aspiration. By: Agatha Loredo MD Time: 08/23 1844 Comment: 79 y/o F being admitted to [facility] ICU. Has hx of COPD (baseline 3L O2 requirement) here with AMS, possible right sided weakness. Code stroke, no go. Found to be hypercarbic. Getting COPD exacerbation treatment, on BiPAP, monitor airway, may require intubation. By: Vj Price MD Time: 08/23 1847 Comment: Glendy Herrera, daughter, By: Agatha Loredo MD Time: 08/23 1901 Comment: Re-evaluated patient, diminished breath sounds throughout all lung phillips, unable to appreciate wheezing or crackles. Patient will open her eyes to voice, able to squeeze my hands to commandbut otherwise does not participate in exam. She is satting 100% on 60% FiO2 BiPAP and is otherwise hemodynamically stable. Will defer intubation for now By: Vj Price MD Time: 08/23 1928 Comment: Repeat VBG showed pH 7.18 --> 7.16. However this was drawn shortly after placing on Bipap. On exam she's alert and oriented to person, year, and hospital, which is much improved then whenshe presented. Plan to repeat VBG in 30 minutes. Defer intubation for now. By: Michael Tinajero MD Time: 08/23 1939 Value: Ammonia, Plasma(!): 52 Comment: (Reviewed) By: Agatha Loredo MD Acute hypercapnic respiratory failure (CMS/HCC) COPD exacerbation (CMS/HCC) Encephalopathy acute Michael Tinajero MD Resident 08/23/202054 Cosigned by Agatha Loredo MD at 08/23/2020 9:32 PM DOCENT COORDINATOR NT COORDINATOR NT COORDINATOR Associated attestation - Agatha Loredo MD - 08/23/2020 9:32 PM DOCENT COORDINATOR I have seen and examined the patient on 08/23/2020. I agree with the findings and plan of care as documented in the resident's note. * Davis Baez RN - 08/23/2020 5:48 PM CST Patient coming to the ED via EMS for altered mental status. Pt was found to have left sided weakness and aphasia/confusion. LSN was between 9PM-10PM last night. BG en route 127. Per EMS, patient was incoherent until about 5 mins upon arriving to hospital. Pt then was able to communicate. NT COORDINATOR documented in this encounter Miscellaneous Notes * Plan of Care - Debby Martinez RN - 08/30/2020 3:51 PM CST CM met with the patient and gave a list of HH agencies. Patient would like to use [facility] for home care. [facility] referral sent and Esperanza with [facility] HH coordinator notified. NT COORDINATOR * [facility] Note - Debby Martinez RN - 08/30/2020 3:20 PM CST Patient Information: DME and Referral Orders Referral Order Details (96h ago through 96h from now) Ordered Start 08/30/20 1345 Ambulatory referral to Home Health Electronically Signed By: Daniela Sarabia MD Question Answer Comment Service Line Home Health Primary disciplines requested: [facility] Primary disciplines requested: Physical Therapy Secondary disciplines requested: Occupational Therapy Home Health Services Strengenthing/ Balance Home Health Services Strengthening Exercises Physician to follow patient's care (the person listed here will be responsible for signing ongoing orders): PCP Requested Start of Care Date: Within 2 - 3 Days I attest that I or another qualified licensed provider saw the patient 90 days prior to or 30 days post admission and this face to face encounter meets the necessary Home Health requirements. The face to face encounter occurred on (date): 08/30/2020 The encounter with the patient was in whole, or in part, for the following medical condition, whichis the primary reason for home health care. (List medical condition): T spine fractures, COPD I certify that, based on my findings, the following services are medically necessary skilled home health services: Therapy to Eval/ Treat Clinical findings that support the need for home care: Frequent falls requiring safety eval/therapy I certify that my clinical findings support patient's homebound status. Homebound criteria met because: Poor endurance I certify that my clinical findings support patient's homebound status. Homebound criteria met because: Abnormal gait/unsteady balance resulting in fall risk 08/30/20 0000 NT COORDINATOR * Plan of Care - Marcella Vora MSW - 08/30/2020 12:03 PM CST Per DCAM discussion with MD, patient has capacity. Patient is not interested in placement at this time, and would like to discharge home. Social work discussed concerns about safety at home. Patient is still refusing placement at this time and will discharge home. No social work needs currently identified, family independence case manager is following. Problem: Ensure acute medical needs are met and that patient has a safe discharge plan. Goal: Ensure patient has continuum of care and a safe discharge plan. Discharge plan: Patient will discharge home. ADD: 08/30/20 ADRIANNA Bhatt For emergency needs from 4:31p.m. - 7:59a.m., please call the ED Car Retarder Operator . For weekend needs from 8:00a.m. - 4:30p.m., please call the Weekend Social Work Staff . NT COORDINATOR * Plan of Care - Madai San LMSW - 08/29/2020 5:34 PM CST The patient was agreeable to placement at [facility][1]. Social Work spoke with patient's daughter and patient via speaker phone and both were agreeable to plan. Social Work also updated patient's son about discharge plans. Around 3:30p.m., the patient began to refuse her discharge. Social Work discussed discharge optionswith the patient and she kept saying to just stop and you kids keep pushing. When asked to elaborate, she continued to say the statements above. Social Work and MD met with the patient at bedsideand she refused to participate in the discharge plan. MD Jorge, and pt's daughter spoke withthe patient. The patient was refusing to discharge to SNF, refusing to appeal her discharge, and refusing to answer questions. The patient then stated she would just go home. However, the patient appeared to be more confused during the conversation and the patient's daughter said this is not baseline for her. Team decided to evaluate the patient and re-discuss tomorrow. Social work will follow. Madai San MSW, FIELD CAPTAIN, For emergency needs from 4:31p.m. - 7:59a.m., please call the ED Car Retarder Operator . For weekend needs from 8:00a.m. - 4:30p.m., please call the Weekend Social Work Staff . NT COORDINATOR * Hospital Course - Tai Gutierrez MD - 08/29/2020 12:42 PM DOCENT COORDINATOR Vitamin D deficiency Assessment & Plan Started daily replacement ?? GERD (gastroesophageal reflux disease) Assessment & Plan Continued??Home Pantoprazole 40mg Daily ?? Iron deficiency anemia Assessment & Plan Presented with Hgb in 8s without explanation, MCV high 70s, iron profile 13, ferritin 28, Tsat 4%, now s/p 1U PRBCs and 1 x Ferrlecit. Started ferrous sulfate BID. She needs evaluation for age based screening on outpatient basis. ?? Thoracic spine fracture (CMS/HCC) Assessment & Plan Suspect secondary to fall 3 months ago where patient was reported to have sustained spinal fractures. Has been taking opiates for pain at home. 08/23 CT Abd/Pelv Moderate to Severe Compression fractures at T11 and T12. PT/OT recommended SNF. Vit d was low and replacement started. She would benefit from further bone health OP evaluation. ?? HTN (hypertension) Assessment & Plan HCTZ 12.5mg Oral Daily, Metoprolol Succinate 100mg Daily.? Chronic obstructive pulmonary disease with acute exacerbation (CMS/HCC) Assessment & Plan Continue Home??Monteleukast 10mg Daily. Cont O2- baseline 3 L, wean as able Started ICA/LABA, LAMA ? * Acute on chronic respiratory failure with hypoxia and hypercapnia (CMS/HCC) Assessment & Plan Presented w/hypercapnic respiratory failure likely to COPD Exacerbation and possible PNA. Initiallyon BIPAP then intuabted. Unclear precipitant but some concern for polypharmacy in the setting of multiple benzo prescriptions (Clonazepam and Tenazepam) along with opiates. VBG 7.16 >125 158. Infectious workup neg to date - narrowed to CTX, last dose 08/27. RVP neg, Legionella Ag neg, COVIDneg. BCx and trach asp Cx 08/23 NGTD. Intubated 08/23;??Extubated 08/26. Pred 08/23- 08/28. Continue to wean O2 as able. On L O2 at discharge. NT COORDINATOR * Assessment & Plan Note - Tai Gutierrez MD - 08/29/2020 12:37 PM DOCENT COORDINATOR Associated Problem(s): Vitamin D deficiency Cont daily replacement NT COORDINATOR * Assessment & Plan Note - Tai Gutierrez MD - 08/29/2020 12:33 PM DOCENT COORDINATOR Associated Problem(s): Acute hypercapnic respiratory failure (CMS/HCC) (HCC) (Resolved 09/13/2020) 2/2 copd exacerbation Sp antibiotics and 5 days of prednisone Wean O2 as able NT COORDINATOR * Subjective & Objective - Tai Gutierrez MD - 08/29/2020 12:30 PM DOCENT COORDINATOR Daily Progress Note Division of [facility] Medicine Name: Phoebe Hillman Today: August 29, 2020 : 1940 Age: 79 y.o. female Admit: 08/23/2020 Bed: [id number] Subjective Chief complaint: copd exacerbation Interval History: no acute events. Agreeable to snf. Objective Medications: Scheduled: ??? busPIRone, 10 mg, oral, BID ??? cholecalciferol, 2,000 Units, oral, Daily ??? enoxaparin, 40 mg, subcutaneous, Daily-2100 ??? ferrous sulfate, 65 mg of elemental iron, oral, BID with meals (bkfst, dinner) ??? hydroCHLOROthiazide, 12.5 mg, oral, Daily ??? metoprolol XL, 100 mg, oral, Daily ??? montelukast, 10 mg, oral, Nightly ??? pantoprazole, 40 mg, intravenous, Daily ??? polyethylene glycol, 17 g, oral, BID Infusions: PRN: ??? acetaminophen ??? albuterol HFA ??? ipratropium ??? LORazepam ??? ondansetron ODT ??? oxyCODONE ??? ramelteon ??? senna-docusate Vitals: 24hr Min/Max: Temp Min: 36.8 ??C (98.2 ??F) Max: 37.3 ??C (99.1 ??F) Pulse Min: 91 Max: 96 BP Min: 110/84 Max: 164/107 Resp Min: 20 Max: 20 SpO2 Min: 94 % Max: 97 % Most Recent: Vitals: 08/29/20 0915 BP: 160/80 Pulse: 96 Resp: 20 Temp: 37 ??C (98.6 ??F) SpO2: 95% Intake/Output Summary (Last 24 hours) at 08/29/2020 1230 Last data filed at 08/28/2020 1715 Gross per 24 hour Intake -- Output 650 ml Net -650 ml Physical Exam Constitutional: General: She is not in acute distress. HENT: Head: Normocephalic and atraumatic. Nose: Nose normal. Mouth/Throat: Mouth: Mucous membranes are moist. Pharynx: Oropharynx is clear. Eyes: Extraocular Movements: Extraocular movements intact. Conjunctiva/sclera: Conjunctivae normal. Pupils: Pupils are equal, round, and reactive to light. Cardiovascular: Rate and Rhythm: Normal rate and regular rhythm. Pulses: Normal pulses. Heart sounds: Normal heart sounds. No murmur. No friction rub. No gallop. Pulmonary: Effort: Pulmonary effort is normal. Breath sounds: Normal breath sounds. Abdominal: General: There is no distension. Palpations: Abdomen is soft. Tenderness: There is no abdominal tenderness. Musculoskeletal: General: No swelling or tenderness. Right lower leg: No edema. Left lower leg: No edema. Skin: General: Skin is warm and dry. Neurological: General: No focal deficit present. Mental Status: She is alert and oriented to person, place, and time. Psychiatric: Mood and Affect: Mood normal. Behavior: Behavior normal. Lab/Diagnostic Review: Recent Results (from the past 36 hour(s)) CBC with auto differential Collection Time: 08/28/20 4:35 AM Result Value Ref Range WBC 11.4 (H) 3.8 - 9.9 K/cumm Hgb 10.9 (L) 11.9 - 15.5 g/dL Hct 37.4 35.6 - 45.5 % Plt 325 150 - 400 K/cumm MPV 9.8 9.1 - 12.3 fL RBC 4.73 3.90 - 5.20 M/cumm MCV 79.1 (L) 81.3 - 96.4 fL MCH 23.0 (L) 27.1 - 33.3 pg MCHC 29.1 (L) 32.3 - 35.7 g/dL RDW CV 20.7 (H) 11.1 - 14.9 % RDW SD 55.2 (H) 35.7 - 48.1 fL NRBC abs 0.00 0.00 - 0.01 K/cumm Basic metabolic panel Collection Time: 08/28/20 4:35 AM Result Value Ref Range Sodium 142 135 - 145 mmol/L Potassium, pl 2.9 (L) 3.3 - 4.9 mmol/L Chloride 98 97 - 110 mmol/L CO2 36 (H) 22 - 32 mmol/L Anion gap 8 2 - 15 mmol/L BUN 16 8 - 25 mg/dL Creatinine 0.64 0.60 - 1.10 mg/dL Glucose 177 70 - 199 mg/dL Calcium 9.4 8.5 - 10.3 mg/dL Magnesium Collection Time: 08/28/20 4:35 AM Result Value Ref Range Magnesium 1.9 1.4 - 2.5 mg/dL Phosphorus Collection Time: 08/28/20 4:35 AM Result Value Ref Range Phosphorus, pl 3.4 2.3 - 4.5 mg/dL Differential, auto Collection Time: 08/28/20 4:35 AM Result Value Ref Range Neutrophil abs 8.3 (H) 1.7 - 6.5 K/cumm Imm gran abs 0.1 0.0 - 0.1 K/cumm Lymphocyte abs 1.8 0.8 - 3.3 K/cumm Monocyte abs 1.2 (H) 0.2 - 0.8 K/cumm Eosinophil abs 0.0 0.0 - 0.5 K/cumm Basophil abs 0.0 0.0 - 0.1 K/cumm Neutrophil pct 73.1 % Imm gran pct 0.6 % Lymphocyte pct 15.6 % Monocyte pct 10.4 % Eosinophil pct 0.1 % Basophil pct 0.2 % CBC with auto differential Collection Time: 08/29/20 5:02 AM Result Value Ref Range WBC 8.8 3.8 - 9.9 K/cumm Hgb 10.6 (L) 11.9 - 15.5 g/dL Hct 36.3 35.6 - 45.5 % Plt 316 150 - 400 K/cumm MPV 9.5 9.1 - 12.3 fL RBC 4.49 3.90 - 5.20 M/cumm MCV 80.8 (L) 81.3 - 96.4 fL MCH 23.6 (L) 27.1 - 33.3 pg MCHC 29.2 (L) 32.3 - 35.7 g/dL RDW CV 21.1 (H) 11.1 - 14.9 % RDW SD 58.1 (H) 35.7 - 48.1 fL NRBC abs 0.00 0.00 - 0.01 K/cumm Basic metabolic panel Collection Time: 08/29/20 5:02 AM Result Value Ref Range Sodium 145 135 - 145 mmol/L Potassium, pl 3.9 3.3 - 4.9 mmol/L Chloride 100 97 - 110 mmol/L CO2 39 (H) 22 - 32 mmol/L Anion gap 6 2 - 15 mmol/L BUN 17 8 - 25 mg/dL Creatinine 0.61 0.60 - 1.10 mg/dL Glucose 112 70 - 199 mg/dL Calcium 9.5 8.5 - 10.3 mg/dL Magnesium Collection Time: 08/29/20 5:02 AM Result Value Ref Range Magnesium 2.0 1.4 - 2.5 mg/dL Phosphorus Collection Time: 08/29/20 5:02 AM Result Value Ref Range Phosphorus, pl 3.4 2.3 - 4.5 mg/dL Vitamin D 25 hydroxy Collection Time: 08/29/20 5:02 AM Result Value Ref Range Vitamin D, 25-hydroxy 24 (L) 30 - 80 ng/mL Differential, auto Collection Time: 08/29/20 5:02 AM Result Value Ref Range Neutrophil abs 5.7 1.7 - 6.5 K/cumm Imm gran abs 0.1 0.0 - 0.1 K/cumm Lymphocyte abs 1.7 0.8 - 3.3 K/cumm Monocyte abs 1.3 (H) 0.2 - 0.8 K/cumm Eosinophil abs 0.0 0.0 - 0.5 K/cumm Basophil abs 0.0 0.0 - 0.1 K/cumm Neutrophil pct 64.4 % Imm gran pct 0.6 % Lymphocyte pct 19.8 % Monocyte pct 15.0 % Eosinophil pct 0.0 % Basophil pct 0.2 % I have reviewed the laboratory results. Imaging Results: XR Chest 1 View (Portable) Narrative: EXAMINATION: 1. 1 view chest radiograph 2. 1 view chest radiograph Impression: 1. Chest radiograph 08/25/2020 at 8:01 PM compared to 08/24/2020. An endotracheal tube is noted, the tricia is difficult to visualize. An esophagogastric tube courses caudally below the diaphragm and terminates below [id number]. The cardiomediastinal contours are within stable. There is bilateral basilar atelectasis. No pneumothorax. No pleural effusion. 2. Chest radiograph 08/25/2020 at 10:18 PM The endotracheal tube is approximately 2.5 cm above the tricia. An esophagogastric tube tip is peripyloric and side-port is in the gastric body. The cardiomediastinal contours are unchanged. There is atherosclerotic calcification of the aortic knob. There is mild right basilar atelectasis. No pleural effusion. No pneumothorax. Dictated by: Eleazar Avina M.D. The radiology attending physician has personally reviewed this study, and had reviewed and/or edited this written report and agrees with it. Electronically signed by: Favian Mcmahan M.D. XR Chest 1 View Narrative: EXAMINATION: 1. 1 view chest radiograph 2. 1 view chest radiograph Impression: 1. Chest radiograph 08/25/2020 at 8:01 PM compared to 08/24/2020. An endotracheal tube is noted, the tricia is difficult to visualize. An esophagogastric tube courses caudally below the diaphragm and terminates below [id number]. The cardiomediastinal contours are within stable. There is bilateral basilar atelectasis. No pneumothorax. No pleural effusion. 2. Chest radiograph 08/25/2020 at 10:18 PM The endotracheal tube is approximately 2.5 cm above the tricia. An esophagogastric tube tip is peripyloric and side-port is in the gastric body. The cardiomediastinal contours are unchanged. There is atherosclerotic calcification of the aortic knob. There is mild right basilar atelectasis. No pleural effusion. No pneumothorax. Dictated by: Eleazar Avina M.D. The radiology attending physician has personally reviewed this study, and had reviewed and/or edited this written report and agrees with it. Electronically signed by: Favian Mcmahan M.D. XR Abdomen Ap 1 Vw Narrative: EXAMINATION: Abdomen, one view. HISTORY: Check tube placement. COMPARISON: 08/23/2020 Impression: A single view of the abdomen is submitted for evaluation. Distal tip and side-port of the gastric tube are within the gastric body. Temperature probe Guerrero catheter within the urinary bladder. Visualized loops of bowel are nondilated. Radiopaque object overlies the left greater trochanter likely external to patient. Dictated by: Jono Garnett M.D. The radiology attending physician has personally reviewed this study, and had reviewed and/or edited this written report and agrees with it. NT COORDINATOR NT COORDINATOR * ECIN Note - Marcella Vora MSW - 08/29/2020 12:23 PM CST Patient Information: OT Eval and Treat Last 72 Hours OT Evaluation No documentation. OT Treatment No documentation. OT Notes (Notes from 08/27/20 through 08/29/20) No notes of this type exist for this encounter. , PT Eval and Treat Last 72 Hours PT Evaluation Row Name 08/28/20 0830 08/26/20 2740 Chart Reviewed Yes -KB -- Session Type Evaluation -KB -- Safe Environment Arm Band Checked;Patient found in Supine;Overbed Table within Reach;Bed in Lowest Position with Wheels locked -KB -- Subjective Agreeable to Therapy -KB -- PT Missed Visit Reason -- MD/RN Hold;Sedated;Bedrest;Other (comment) orally intubated, sedated -WA Additional Pertinent History HPI: P/w 08/23 with L sided weakness and dyspnea; Acute hypercapnic resp failure PMH: COPD, HTN, pHTN, recent T spine fxs (~3 months ago) per CT mod-severe compression [id number] -KB -- Family/Caregiver Present No -KB -- Physical Therapy-Patient Goal Pt. reports he goal is to get stronger -KB -- Precautions Fall risk;Aspiration -KB -- Precaution Comments PPE worn by PT- Surgical mask, eye protection, and gloves. - KB -- Type of Home House -KB -- Home Layout One level -KB -- Home Access Stairs to enter with rails;Stairs to enter without rails -KB -- Entrance Stairs-Rails Both -KB -- Entrance Stairs-Number of Steps 8 3 without rail then 5 with B handrials -KB -- Home Mobility Equipment 4-Wheeled walker But has not used since 2014 -KB -- Level of [place] Independent functional transfers;Independent with ambulation Household mobility only -KB -- Lives With Spouse - but has mental health problems and unable to assist - KB -- Receives Help From Family Daughter and grandaughter- legal department manager assist -KB -- Fall within the last 6 months Yes -KB -- Fall within the last 6 months comment 1 Fall resulting in spinal fxs; reports she was sleepwalking -KB -- Prior Function Comments Pt. reports that prior to fall/back injury ~3 months ago she was independent with all mobility. Since then she has been limited by pain when she is up for prolong periords. Now her daughter/grandaughter assist with household work and getting groceries. -KB -- Activity Tolerance Comments Nancy RPE: hard -KB -- Pain Assessment 0-10 -KB -- Pain Score 7 -KB -- Pain Location Head -KB -- Pain Interventions RN Notified Sherrill RN notified. -KB -- Arousal/Alertness Alert;Appropriate responses to stimuli -KB -- Orientation Oriented X4 (person, place, time, situation) -KB -- Following Commands Follows one step commands without difficulty -KB -- Safety Judgment Decreased awareness of need for safety -KB -- Light Touch WFL B feet and LE's distal to knees -KB -- Sensation Comments Skin intact in B LE's distal to knees; no pitting edema present -KB -- Balance Yes -KB -- Static Sitting-Balance Support No upper extremity supported;Feet supported -KB -- Static Sitting-Sitting Surface Bed -KB -- Static Sitting-Level of Assistance Distant supervision -KB -- Dynamic Sitting-Balance Support No upper extremity supported;Feet supported -KB -- Dynamic Sitting-Balance -- assessed during AROM screening -KB -- Dynamic Sitting-Sitting Surface Bed -KB -- Dynamic Sitting-Level of Assistance Close supervision -KB -- Static Standing-Balance Support Bilateral upper extremity supported PROCESS TANK TENDER -KB -- Static Standing-Standing Surface Floor -KB -- Static Standing-Level of Assistance Contact guard -KB -- Bed Mobility Yes -KB -- Bed Mobility From 1 Supine -KB -- Bed Mobility Type 1 To and from -KB -- Bed Mobility to 1 Edge of bed -KB -- Level of Assistance 1 Distant Supervision -KB -- Bed Mobility Comments 1 Supervision for safety -KB -- Transfer Yes -KB -- Transfer From 1 Sit -KB -- Transfer Type 1 To and from -KB -- Transfer to 1 Stand -KB -- Transfer Device 1 Hand held assist -KB -- Transfer Level of Assistance 1 Contact Guard Assist -KB -- Trials/Comments 1 Assist to maintain balance Once standing EOB, Pt was able to take 2-3 steps to HOB -KB -- Transfer From 2 Bed -KB -- Transfer Type 2 To -KB -- Transfer to 2 Commode-standard -KB -- Transfer Device 2 Hand held assist -KB -- Transfer Level of Assistance 2 Contact Guard Assist -KB -- Trials/Comments 2 Assist to maintain balance. Verbal cues for safe sequencing and line awareness -KB -- Ambulation No Pt. declined 2/2 fatigue and poor sleep overnight -KB -- RUE Assessment WFL -KB -- LUE Assessment WFL -KB -- RLE Assessment WFL -KB -- LLE Assessment WFL -KB -- Other PT Comments After objective evaluation discussed PT POC and DC recommendations. Pt. verbalized understanding. Reports I can't go home like this. . She also was educated/encouraged to spend time out of bed for pulmonary status. -KB -- How much difficulty does the patient have: Turning over in bed 3 -KB -- How much difficulty does the patient currently have: Sitting down and standing up from a chair witharms? 3 -KB -- How much difficulty does the patient have: Moving from lying on back to sitting on the side of the bed? 3 -KB -- How much difficulty does the patient have: Moving to and from a bed to a chair including wheelchair? 3 -KB -- How much help does the patient currently need: Walk in hospital room? 2 -KB -- How much help from another person does the patient currently need: Climbing 3-5 steps with a railing? 2 -KB -- Total 6 Click Score (range 6-24) 16 -KB -- Score Interpretation 38.32 -KB -- Prognosis Fair -KB -- Problem List Decreased strength;Decreased endurance;Impaired balance;Decreased mobility;Decreased safety awareness -KB -- Problem List Comments PT Diagnosis: Acute resp failure requiring inubation results in above listed problems and impairments which prevent full participation in home and community mobility. -KB -- Barriers to Discharge Current Mobility Status;Decreased caregiver support;Home environment challenged -KB -- Plan If this is the last note, consider this the discharge summary;Plan of care initiated -KB -- PT Recommendation/Plan [facility] Facility -KB -- PT Frequency 2-3x/wk -KB Monitor status -WA Treatment/Interventions Balance Training;Bed mobility;Endurance training;Equipment eval/education;Functional activity;Functional transfer training;Gait training;Therapeutic activity;Therapeutic exercise;Transfer training;Strengthening -KB -- PT Evaluation Complete Yes -KB -- User Giron (r) = Recorded By, (t) = Taken By, (c) = Cosigned By Initials Name Effective Dates [place] Enio Hunt, PT 07/06/19 - KB Mari Brianna, PT 04/27/19 - PT TREATMENT (last 168 hours) PT Treatment Row Name 08/24/20 1239 PT Last Visit PT Missed Visit Reason Other (comment) intubated, sedated, paralyzed -MM Recommendation/Plan PT Frequency Monitor status -MM User Giron (r) = Recorded By, (t) = Taken By, (c) = Cosigned By Initials Name Effective Dates Keyana Zhang, PT 07/06/19 - PT Notes (Notes from 08/27/20 through 08/29/20) 08/28/2020 12:13 PM Progress Notes signed by Brianna Guerra, PT NT COORDINATOR * ECIN Note - Marcella Vora MSW - 08/29/2020 12:22 PM CST Patient Information: Meds and Admin Active Only All Meds/Most Recent Administrations ioversoL (OPTIRAY 350) syringe syringe 100 mL [[id number]] Ordering Provider: Michael Tinajero MD Status: Completed (Past End Date/Time) Ordered On: 08/23/201804 Starts/Ends: 08/23/201804 - 08/23/201804 Dose (Remaining/Total): 100 mL (0/1) Route: intravenous Frequency: Once in imaging Rate/Duration: -- / -- Line Med Link Info Comment Peripheral IV 08/23/20 20 G Right Antecubital 08/23/201804 by Luis Guzman, RT -- Timestamps Action Dose Route Other Information 08/23/201804 Given 100 mL intravenous Performed by: Luis Guzman RT Scanned Package: 6332-2100-63 ondansetron (ZOFRAN) injection 4 mg [[id number]] Ordering Provider: Michael Tinajero MD Status: Completed (Past End Date/Time) Ordered On: 08/23/201821 Starts/Ends: 08/23/201822 - 08/23/201828 Dose (Remaining/Total): 4 mg (0/1) Route: intravenous Frequency: Once Rate/Duration: -- / 2 Minutes Line Med Link Info Comment Peripheral IV 08/23/20 20 G Right Antecubital 08/23/201826 by Joey Nevarez RN -- Timestamps Action Dose / Duration Route Other Information 08/23/201826 Given 4 mg 2 Minutes intravenous Performed by: Joey Nevarez RN Scanned Package: [id number] ipratropium (ATROVENT) 0.02 % nebulizer solution 0.5 mg [[id number]] Ordering Provider: Michael Tinajero MD Status: Completed (Past End Date/Time) Ordered On: 08/23/201824 Starts/Ends: 08/23/201825 - 08/23/201839 Dose (Remaining/Total): 0.5 mg (0/1) Route: nebulization Frequency: Once (broadcast correspondent) Rate/Duration: -- / -- Timestamps Action Dose Route Other Information 08/23/201839 Given 0.5 mg nebulization Performed by: Kyle Cedillo RRT magnesium sulfate 2 g/50 mL in water (premix) 2 g [[id number]] Ordering Provider: Michael Tinajero MD Status: Completed (Past End Date/Time) Ordered On: 08/23/201824 Starts/Ends: 08/23/201825 - 08/23/201951 Dose (Remaining/Total): 2 g (0/1) Route: intravenous Frequency: Once Rate/Duration: -- / 60 Minutes Line Med Link Info Comment Peripheral IV 08/23/20 20 G Right Antecubital 08/23/201852 by Joey Nevarez RN -- Timestamps Action Dose / Duration Route Other Information 08/23/201852 New Bag 2 g 60 Minutes intravenous Performed by: Joey Nevarez RN Scanned Package: [id number] albuterol 2.5 mg/0.5 mL nebulizer solution 10 mg [[id number]] Ordering Provider: Michael Tinajero MD Status: Completed (Past End Date/Time) Ordered On: 08/23/201829 Starts/Ends: 08/23/201830 - 08/23/201839 Dose (Remaining/Total): 10 mg (0/1) Route: nebulization Frequency: Once (broadcast correspondent) Rate/Duration: -- / -- Timestamps Action Dose Route Other Information 08/23/201839 Given 10 mg nebulization Performed by: Kyle Cedillo RRT methylPREDNISolone sodium succinate (SOLU-medrol) preservative free injection 125 mg [[id number]] Ordering Provider: Juan Antonio Villarreal MD Status: Completed (Past End Date/Time) Ordered On: 08/23/201835 Starts/Ends: 08/23/201835 - 08/23/201854 Dose (Remaining/Total): 125 mg (0/1) Route: intravenous Frequency: Once Rate/Duration: -- / 3 Minutes Line Med Link Info Comment Peripheral IV 08/23/20 20 G Right Forearm 08/23/201851 by Joey Nevarez RN -- Timestamps Action Dose / Duration Route Other Information 08/23/201851 Given 125 mg 3 Minutes intravenous Performed by: Joey Nevarez RN Scanned Package: [id number] vancomycin 1,000 mg/200 mL in dextrose 5% (premix) 1,000 mg [[id number]] Ordering Provider: Juan Antonio Villarreal MD Status: Completed (Past End Date/Time) Ordered On: 08/23/201905 Starts/Ends: 08/23/201906 - 08/23/202036 Dose (Remaining/Total): 15 mg/kg (0/1) Route: intravenous Frequency: Once Rate/Duration: -- / 60 Minutes Timestamps Action Dose / Duration Route Other Information 08/23/201933 New Bag 1,000 mg 60 Minutes intravenous Performed by: Joey Nevarez RN Scanned Package: [id number] cefepime (MAXIPIME) 2,000 mg/20 mL in sterile water (premix) 2,000 mg [[id number]] Ordering Provider: Juan Antonio Villarreal MD Status: Completed (Past End Date/Time) Ordered On: 08/23/201905 Starts/Ends: 08/23/201906 - 08/23/202000 Dose (Remaining/Total): 2,000 mg (0/1) Route: intravenous Frequency: Once Rate/Duration: 40 mL/hr / 30 Minutes Line Med Link Info Comment Peripheral IV 08/23/20 20 G Right Forearm 08/23/201925 by Joey Nevarez RN -- Timestamps Action Dose / Rate / Duration Route Other Information 08/23/201925 New Bag 2,000 mg 40 mL/hr 30 Minutes intravenous Performed by: Joey Nevarez RN Scanned Package: [id number] azithromycin (ZITHROMAX) 500 mg/255 mL in sodium chloride 0.9% (premix) 500 mg [[id number]] Ordering Provider: Juan Antonio Villarreal MD Status: Completed (Past End Date/Time) Ordered On: 08/23/201905 Starts/Ends: 08/23/201906 - 08/23/202036 Dose (Remaining/Total): 500 mg (0/1) Route: intravenous Frequency: Once Rate/Duration: 255 mL/hr / 60 Minutes Line Med Link Info Comment Peripheral IV 08/23/20 20 G Right Forearm 08/23/201926 by Joey Nevarez RN -- Timestamps Action Dose / Rate / Duration Route Other Information 08/23/201926 New Bag 500 mg 255 mL/hr 60 Minutes intravenous Performed by: Joey Nevarez RN Scanned Package: [id number] albuterol 2.5 mg/0.5 mL nebulizer solution 10 mg [[id number]] Ordering Provider: Vj Price MD Status: Completed (Past End Date/Time) Ordered On: 08/23/202013 Starts/Ends: 08/23/202014 - 08/23/202014 Dose (Remaining/Total): 10 mg (0/1) Route: nebulization Frequency: Once (broadcast correspondent) Rate/Duration: -- / -- Timestamps Action Dose Route Other Information 08/23/202014 Given 10 mg nebulization Performed by: Laura Gant, LOG SCALER Scanned Package: [id number], [id number], [id number], [id number] phenylephrine (MARTINA-SYNEPHRINE) 1 mg/10 mL (100 mcg/mL) in sodium chloride 0.9% (premix) - ADS Override Pull [[id number]] Status: Dispensed (Past End Date/Time) Ordered On: 08/23/202202 Starts/Ends: 08/23/202202 - 08/24/20 1014 Dose (Remaining/Total): -- (1) Route: -- Frequency: -- Rate/Duration: -- / -- Admin Instructions: Created by cabinet override Note to pharmacy: Created by cabinet override For IV push, administer over 30 seconds. (No admins recorded for this medication) etomidate (AMIDATE) injection 30 mg [[id number]] Ordering Provider: Phyllis Li MD Status: Completed (Past End Date/Time) Ordered On: 08/23/202226 Starts/Ends: 08/23/202299 - 08/23/202230 Dose (Remaining/Total): 30 mg (0/1) Route: intravenous Frequency: Once Rate/Duration: -- / 1 Minutes Timestamps Action Dose / Duration Route Other Information 08/23/202229 Given 30 mg 1 Minutes intravenous Performed by: Niecy Munguia RN rocuronium (ZEMURON) injection 70 mg [[id number]] Ordering Provider: Phyllis Li MD Status: Completed (Past End Date/Time) Ordered On: 08/23/202226 Starts/Ends: 08/23/202299 - 08/23/202229 Dose (Remaining/Total): 70 mg (0/1) Route: intravenous Frequency: Once Rate/Duration: -- / -- Admin Instructions: Patient should receive adequate sedative/anesthetic agent before a paralytic agent is administered. WARNING: Causes respiratory paralysis. Patient must be ventilated. Timestamps Action Dose Route Other Information 08/23/202229 Given 70 mg intravenous Performed by: Niecy Munguia RN midazolam (VERSED) 1 mg/mL injection 3 mg [[id number]] Ordering Provider: Phyllis Li MD Status: Completed (Past End Date/Time) Ordered On: 08/23/202226 Starts/Ends: 08/23/202299 - 08/23/202229 Dose (Remaining/Total): 3 mg (0/1) Route: intravenous Frequency: Once Rate/Duration: -- / -- Timestamps Action Dose Route Other Information 08/23/202229 Given 3 mg intravenous Performed by: Niecy Munguia RN enoxaparin (LOVENOX) syringe 40 mg [[id number]] Ordering Provider: Tez Herrera MD Status: Dispensed Ordered On: 08/24/20 0808 Start: 08/24/20 2100 Dose (Remaining/Total): 40 mg (--/--) Route: subcutaneous Frequency: Daily (for enoxaparin) Rate/Duration: -- / -- Timestamps Action Dose Route / Site Other Information 08/28/206 Given 40 mg subcutaneous Right Lower Abdomen Performed by: Stephenie Browne RN Scanned Package: [id number] pantoprazole (PROTONIX) injection 40 mg [[id number]] Ordering Provider: Tez Herrera MD Status: Dispensed Ordered On: 08/24/20809 Start: 08/24/20 0845 Dose (Remaining/Total): 40 mg (--/--) Route: intravenous Frequency: Daily Rate/Duration: -- / 2 Minutes Admin Instructions: For IV Push administration for adults- 40 mg vial: add 10 mL of sodium chloride 0.9% to achieve a final concentration of 4 mg/mL Timestamps Action Dose / Duration Route Other Information 08/29/20 0916 Given 40 mg 2 Minutes intravenous Performed by: Delia Quiros RN Scanned Package: [id number] potassium, sodium phosphates (PHOS-NAK) 280-160-250 mg packet 1 packet [[id number]] Ordering Provider: Tez Herrera MD Status: Completed (Past End Date/Time) Ordered On: 08/24/20809 Starts/Ends: 08/24/20 113 - 08/25/20 0929 Dose (Remaining/Total): 1 packet (0/3) Route: feeding tube Frequency: 3 times daily before meals Rate/Duration: -- / -- Admin Instructions: Each packet contains 250 mg elemental phosphorus. Each packet contains: elemental phosphorus 250 mg (8 mmol) and potassium 7.1 mEq Timestamps Action Dose Route Other Information 08/25/20 09 Given 1 packet feeding tube Performed by: Kalpana Brizuela RN Scanned Package: [id number] Lactated Ringer's (LR) bolus 500 mL [[id number]] Ordering Provider: Tez Herrera MD Status: Completed (Past End Date/Time) Ordered On: 08/24/20 0811 Starts/Ends: 08/24/20 0845 - 08/24/20 1032 Dose (Remaining/Total): 500 mL (0/1) Route: intravenous Frequency: Once Rate/Duration: 250 mL/hr / 2 Hours Timestamps Action Dose / Rate / Duration Route Other Information 08/24/20 0832 New Bag 500 mL 250 mL/hr 2 Hours intravenous Performed by: Kalpana Brizuela RN Scanned Package: 6469-3512-93 senna-docusate (PERICOLACE) 8.6-50 mg per tablet 1 tablet [[id number]] Ordering Provider: Salome Crow MD Status: Dispensed Ordered On: 08/24/20814 Start: 08/24/20813 Dose (Remaining/Total): 1 tablet (--/--) Route: feeding tube Frequency: 2 times daily PRN Rate/Duration: -- / -- Timestamps Action Dose Route Other Information 08/27/20 1213 Given 1 tablet feeding tube Performed by: Aimee Alas RN sodium chloride 0.9% IVPB 0-250 mL [[id number]] Ordering Provider: Phyllis Li MD Status: Completed (Past End Date/Time) Ordered On: 08/24/202105 Starts/Ends: 08/24/202144 - 08/24/202205 Dose (Remaining/Total): 0-250 mL (0/1) Route: intravenous Frequency: Once Rate/Duration: -- / -- Admin Instructions: Prime blood tubing and administer amount needed to clear line (usually 50-100 mL) after transfusion complete. Timestamps Action Dose Route Other Information 08/24/202205 New Bag 250 mL intravenous Performed by: Hanna Kaur RN Scanned Package: 9080-3309-23 ferric gluconate (FERRLECIT) 125 mg of elemental iron in sodium chloride 0.9% 100 mL IVPB [[id number]] Ordering Provider: Phyllis Li MD Status: Completed (Past End Date/Time) Ordered On: 08/24/202106 Starts/Ends: 08/24/202144 - 08/25/20 0020 Dose (Remaining/Total): 125 mg of elemental iron (0/1) Route: intravenous Frequency: Once Rate/Duration: 110 mL/hr / 60 Minutes Admin Instructions: Room temperature only Timestamps Action Dose / Rate / Duration Route Other Information 08/24/20 2320 New Bag 125 mg of elemental iron 110 mL/hr 60 Minutes intravenous Performed by: Hanna Kaur RN ramelteon (ROZEREM) tablet 8 mg [[id number]] Ordering Provider: Phyllis Li MD Status: Dispensed Ordered On: 08/24/202317 Start: 08/24/202316 Dose (Remaining/Total): 8 mg (--/--) Route: oral Frequency: Nightly PRN Rate/Duration: -- / -- Timestamps Action Dose Route Other Information 08/26/202226 Given 8 mg oral Performed by: Isabel Gregorio RN Scanned Package: [address]-2 LORazepam (ATIVAN) injection 1 mg [[id number]] Ordering Provider: Jhon Seaman MD Status: Completed (Past End Date/Time) Ordered On: 08/25/20432 Starts/Ends: 08/25/20514 - 08/25/20438 Dose (Remaining/Total): 1 mg (0/1) Route: intravenous Frequency: Once Rate/Duration: -- / -- Admin Instructions: For IV administration, dilute with equal volume of 0.9% sodium chloride. Do not exceed a rate of 2 mg/minute Timestamps Action Dose Route Other Information 08/25/20438 Given 1 mg intravenous Performed by: Hanna Kaur RN azithromycin (ZITHROMAX) tablet 500 mg [[id number]] Ordering Provider: Tez Herrera MD Status: Completed (Past End Date/Time) Ordered On: 08/25/20 1045 Starts/Ends: 08/25/202099 - 08/25/202037 Dose (Remaining/Total): 500 mg (0/1) Route: feeding tube Frequency: Once Rate/Duration: -- / -- Timestamps Action Dose Route Other Information 08/25/202037 Given 500 mg feeding tube Performed by: Hanna Kaur RN Scanned Package: 79434-123-77, 51218-417-84 cefTRIAXone (ROCEPHIN) 1,000 mg/10 mL in sterile water (premix) 1,000 mg [[id number]] Ordering Provider: Tez Herrera MD Status: Completed (Past End Date/Time) Ordered On: 08/25/20 1045 Starts/Ends: 08/25/202099 - 08/27/20 234 Dose (Remaining/Total): 1,000 mg (0/3) Route: intravenous Frequency: Every 24 hours scheduled Rate/Duration: 600 mL/hr / 1 Minutes Line Med Link Info Comment Peripheral IV 08/23/20 20 G Right Forearm 08/27/202341 by Stephenie Browne RN -- Timestamps Action Dose / Rate / Duration Route Other Information 08/27/202341 Given 1,000 mg 600 mL/hr 1 Minutes intravenous Performed by: Stephenie Browne RN furosemide (LASIX) 10 mg/mL injection 20 mg [[id number]] Ordering Provider: Tez Herrera MD Status: Completed (Past End Date/Time) Ordered On: 08/25/20 104 Starts/Ends: 08/25/20 1130 - 08/25/20 1246 Dose (Remaining/Total): 20 mg (0/1) Route: intravenous Frequency: Once Rate/Duration: -- / 1 Minutes Admin Instructions: Room temperature only Timestamps Action Dose / Duration Route Other Information 08/25/20 124 Given 20 mg 1 Minutes intravenous Performed by: Kalpana Brizuela RN Scanned Package: 5062-1626-63 fentaNYL (SUBLIMAZE) bolus from bag 100 mcg [[id number]] Ordering Provider: Madeline Ford MD Status: Completed (Past End Date/Time) Ordered On: 08/25/202007 Starts/Ends: 08/25/202044 - 08/25/202004 Dose (Remaining/Total): 100 mcg (0/1) Route: intravenous Frequency: Once Rate/Duration: -- / -- Timestamps Action Dose Route Other Information 08/25/202004 Bolus from Bag 100 mcg intravenous Performed by: Hanna Kaur RN haloperidol (HALDOL) injection 5 mg [[id number]] Ordering Provider: Madeline Ford MD Status: Completed (Past End Date/Time) Ordered On: 08/25/202233 Starts/Ends: 08/25/202314 - 08/25/202251 Dose (Remaining/Total): 5 mg (0/1) Route: intramuscular Frequency: Once Rate/Duration: -- / -- Admin Instructions: If administered IV push, administer over 5 min for adults Timestamps Action Dose Route / Site Other Information 08/25/202251 Given 5 mg intramuscular Right Deltoid Performed by: Hanna Kaur RN Scanned Package: 21393-531-20 potassium chloride (KLOR-CON) packet 40 mEq [[id number]] Ordering Provider: Madeline Ford MD Status: Completed (Past End Date/Time) Ordered On: 08/26/20126 Starts/Ends: 08/26/20199 - 08/26/20 05 Dose (Remaining/Total): 40 mEq (0/2) Route: feeding tube Frequency: Every 4 hours Rate/Duration: -- / -- Admin Instructions: Total dose = 80 mEq. Recommend to dilute each 15 mL with at least 6 ounces of water or juice prior to administration. Dissolve one packet in at least 120 mL of cold water or otherbeverage prior to administration. Timestamps Action Dose Route Other Information 08/26/20 05 Given 40 mEq feeding tube Performed by: Hanna Kaur RN Scanned Package: [address]-2, [address]-6 magnesium sulfate 2 g/50 mL in water (premix) 2 g [[id number]] Ordering Provider: Donta Lizarraga MD PhD Status: Completed (Past End Date/Time) Ordered On: 08/26/20 0654 Starts/Ends: 08/26/20 0730 - 08/26/20 0833 Dose (Remaining/Total): 2 g (0/1) Route: intravenous Frequency: Once Rate/Duration: -- / 60 Minutes Timestamps Action Dose / Duration Route Other Information 08/26/20 0733 New Bag 2 g 60 Minutes intravenous Performed by: Kalpana Brizuela RN Scanned Package: 3856-3097-11 LORazepam (ATIVAN) tablet 1 mg [[id number]] Ordering Provider: Chris Maurer MD Status: Dispensed Ordered On: 08/27/20 100 Start: 08/27/20 1015 Dose (Remaining/Total): 1 mg (--/--) Route: oral Frequency: Nightly PRN Rate/Duration: -- / -- Timestamps Action Dose Route Other Information 08/28/206 Given 1 mg oral Performed by: Stephenie Browne RN Scanned Package: 5411-0127-09 oxyCODONE (ROXICODONE) tablet 5 mg [[id number]] Ordering Provider: Chris Maurer MD Status: Dispensed Ordered On: 08/27/20 100 Start: 08/27/20 1015 Dose (Remaining/Total): 5 mg (--/--) Route: feeding tube Frequency: 4 times daily PRN Rate/Duration: -- / -- Timestamps Action Dose Route Other Information 08/28/201824 Given 5 mg feeding tube Performed by: Sherrill Rocha RN Scanned Package: 1080-2410-07 hydroCHLOROthiazide (HYDRODIURIL) tablet 12.5 mg [[id number]] Ordering Provider: Chris Maurer MD Status: Dispensed Ordered On: 08/27/20 100 Start: 08/27/20 1045 Dose (Remaining/Total): 12.5 mg (--/--) Route: oral Frequency: Daily Rate/Duration: -- / -- Timestamps Action Dose Route Other Information 08/29/20 0915 Given 12.5 mg oral Performed by: Delia Quiros, JUAN Scanned Package: 29357-518-53 predniSONE (DELTASONE) tablet 40 mg [[id number]] Ordering Provider: Chris Maurer MD Status: Completed (Past End Date/Time) Ordered On: 08/27/20 1034 Starts/Ends: 08/28/20 0900 - 08/28/20 0851 Dose (Remaining/Total): 40 mg (0/1) Route: oral Frequency: Daily Rate/Duration: -- / -- Timestamps Action Dose Route Other Information 08/28/20 0851 Given 40 mg oral Performed by: Sherrill Rocha RN Scanned Package: 0521-0450-29, 8110-9602-66 busPIRone (BUSPAR) tablet 10 mg [[id number]] Ordering Provider: Chris Maurer MD Status: Dispensed Ordered On: 08/27/201033 Start: 08/27/202099 Dose (Remaining/Total): 10 mg (--/--) Route: oral Frequency: 2 times daily Rate/Duration: -- / -- Timestamps Action Dose Route Other Information 08/29/20 0916 Given 10 mg oral Performed by: Delia Quiros RN Scanned Package: 89925-075-95 montelukast (SINGULAIR) tablet 10 mg [[id number]] Ordering Provider: Chris Maurer MD Status: Dispensed Ordered On: 08/27/201033 Start: 08/27/202099 Dose (Remaining/Total): 10 mg (--/--) Route: oral Frequency: Nightly Rate/Duration: -- / -- Timestamps Action Dose Route Other Information 08/28/202205 Given 10 mg oral Performed by: Stephenie Browne RN Scanned Package: 38016-865-26 polyethylene glycol (MIRALAX) packet 17 g [[id number]] Ordering Provider: Chris Maurer MD Status: Dispensed Ordered On: 08/27/201033 Start: 08/27/202099 Dose (Remaining/Total): 17 g (--/--) Route: oral Frequency: 2 times daily Rate/Duration: -- / -- Timestamps Action Dose Route Other Information 08/28/20 0852 Given 17 g oral Performed by: Sherrill Rocha RN Scanned Package: [address]-0 acetaminophen (TYLENOL) tablet 650 mg [[id number]] Ordering Provider: Chris Maurer MD Status: Dispensed Ordered On: 08/27/201033 Start: 08/27/201033 Dose (Remaining/Total): 650 mg (--/--) Route: oral Frequency: Every 4 hours PRN Rate/Duration: -- / -- Timestamps Action Dose Route Other Information 08/28/20910 Given 650 mg oral Performed by: Sherrill Rocha RN Scanned Package: 97492-730-85, 74695-307-95 metoprolol tartrate (LOPRESSOR) immediate release tablet 25 mg [[id number]] Ordering Provider: Joe Geronimo MD Status: Completed (Past End Date/Time) Ordered On: 08/27/201929 Starts/Ends: 08/27/202014 - 08/27/202040 Dose (Remaining/Total): 25 mg (0/1) Route: oral Frequency: Once Rate/Duration: -- / -- Timestamps Action Dose Route Other Information 08/27/202040 Given 25 mg oral Performed by: Stephenie Browne RN Scanned Package: 58941-212-07 metoprolol XL (TOPROL-XL) extended release tablet 100 mg [[id number]] Ordering Provider: Joe Geronimo MD Status: Dispensed Ordered On: 08/27/201930 Start: 08/28/20899 Dose (Remaining/Total): 100 mg (--/--) Route: oral Frequency: Daily Rate/Duration: -- / -- Admin Instructions: Tablets that are scored may be split, but do not crush, chew, dissolve, open or otherwise manipulate tablet/capsule. Timestamps Action Dose Route Other Information 08/29/2016 Given 100 mg oral Performed by: Delia Quiros RN Scanned Package: 65113-692-01 ondansetron ODT (ZOFRAN-ODT) disintegrating tablet 4 mg [[id number]] Ordering Provider: Nixon Roman MD Status: Dispensed Ordered On: 08/28/20617 Start: 08/28/20617 Dose (Remaining/Total): 4 mg (--/--) Route: oral Frequency: 4 times daily PRN Rate/Duration: -- / -- Timestamps Action Dose Route Other Information 08/28/20629 Given 4 mg oral Performed by: Gurvinder Morales RN Scanned Package: 63208-285-98 potassium chloride 40 mEq/520 mL in sodium chloride 0.9% (premix) 40 mEq [[id number]] Ordering Provider: Nixon Roman MD Status: Completed (Past End Date/Time) Ordered On: 08/28/20 06 Starts/Ends: 08/28/20 07 - 08/28/20 1252 Dose (Remaining/Total): 40 mEq (0/1) Route: intravenous Frequency: Once Rate/Duration: 130 mL/hr / 4 Hours Timestamps Action Dose / Rate / Duration Route Other Information 08/28/20 0852 New Bag 40 mEq 130 mL/hr 4 Hours intravenous Performed by: Sherrill Rocha RN ferrous sulfate tablet 325 mg [[id number]] Ordering Provider: Tai Gutierrez MD Status: Dispensed Ordered On: 08/28/20813 Start: 08/28/20844 Dose (Remaining/Total): 65 mg of elemental iron (--/--) Route: oral Frequency: 2 times daily with meals (bkfst, dinner) Rate/Duration: -- / -- Timestamps Action Dose Route Other Information 08/29/20914 Given 325 mg oral Performed by: Delia Quiros RN Scanned Package: [id number] cholecalciferol (VITAMIN D-3) capsule 2,000 Units [[id number]] Ordering Provider: Tai Gutierrez MD Status: Dispensed Ordered On: 08/28/20814 Start: 08/28/20899 Dose (Remaining/Total): 2,000 Units (--/--) Route: oral Frequency: Daily Rate/Duration: -- / -- Timestamps Action Dose Route Other Information 08/29/20914 Given 2,000 Units oral Performed by: Delia Quiros RN Scanned Package: 79528-30313, 32385-35218 potassium chloride ER (KLOR-CON) extended release tablet 40 mEq [[id number]] Ordering Provider: Tai Gutierrez MD Status: Dispensed (Past End Date/Time) Ordered On: 08/28/20 0816 Starts/Ends: 08/28/20 09 - 08/28/20 1659 Dose (Remaining/Total): 40 mEq (1/2) Route: oral Frequency: Every 4 hours Rate/Duration: -- / -- Admin Instructions: Total dose = 80 mEq Do not crush, chew, cut, dissolve, open or otherwise manipulate tablet/capsule. Timestamps Action Dose Route Other Information 08/28/20 0851 Given 40 mEq oral Performed by: Sherrill Rocha RN Scanned Package: 09375-706-29, 25885-617-48, 26004-156-25, 39389-661-96 albuterol HFA (PROVENTIL HFA,VENTOLIN HFA,PROAIR HFA) 90 mcg/actuation inhaler 2 puff [[id number]] Ordering Provider: Tai Gutierrez MD Status: Verified Ordered On: 08/28/20 114 Start: 08/28/20 1200 Dose (Remaining/Total): 2 puff (--/--) Route: inhalation Frequency: Every 4 hours PRN Rate/Duration: -- / -- Admin Instructions: RN TO ADMIN (No admins recorded for this medication) ipratropium (ATROVENT HFA) 17 mcg/actuation inhaler 2 puff [[id number]] Ordering Provider: Tai Gutierrez MD Status: Verified Ordered On: 08/28/201145 Start: 08/28/20 1200 Dose (Remaining/Total): 2 puff (--/--) Route: inhalation Frequency: Every 4 hours PRN Rate/Duration: -- / -- Admin Instructions: RN TO ADMIN Question Answer Comment I /authorizing provider attest that the patient meets the approved [facility] Use Criteria:: Yes -- (No admins recorded for this medication) , Vitals Info Only Vital Signs 08/28 699 - 08/29 0659 08/29 07 - 08/29 1223 Most Recent Temp (??C) 36.8 - 37.3 37 37 (98.6) Pulse 86 - 99 96 96 Resp 20 20 20 SpO2 (%) 94 - 100 95 95 BP 110/84 - 166/90 160/80 160/80 MAP (mmHg) 91 - 116 101 101 , Oxygen Info Only Default Flowsheet Data (most recent) Endurance Tests No documentation. Default Flowsheet Data (last 48 hours) Oxygen Row Name 08/29/20 0915 08/29/20 0450 08/28/20 2205 08/28/20 1135 08/28/20 0905 Oxygen Therapy/Pulse Ox O2 Therapy Supplemental oxygen -- -- -- Supplemental oxygen O2 Del Method Nasal cannula -- -- -- Nasal cannula O2 Flow Rate (L/min) -- -- -- -- 4 L/min SpO2 95 % 97 % 94 % 98 % 100 % Patient Activity -- -- -- -- Other (Comment) Post PT eval Row Name 08/28/20 0840 08/28/20 0420 08/27/20 2335 08/27/20203008/27/202022 Oxygen Therapy/Pulse Ox O2 Therapy Supplemental oxygen -- -- -- Supplemental oxygen O2 Del Method Nasal cannula -- -- -- Nasal cannula SpO2 100 % 96 % 94 % 97 % 100 % Patient Activity At rest Pre PT eval -- -- -- -- Row Name 08/27/20 1850 08/27/20 1840 08/27/20 1705 08/27/20 1700 08/27/20 1655 Oxygen Therapy/Pulse Ox O2 Therapy -- -- -- Supplemental oxygen -- O2 Del Method -- -- -- Nasal cannula -- SpO2 94 % 99 % 99 % 100 % 100 % Patient Activity -- -- -- At rest -- Row Name 08/27/20 1650 08/27/20 1645 08/27/20 1640 08/27/20 1635 08/27/20 1630 Oxygen Therapy/Pulse Ox SpO2 100 % 99 % 98 % 96 % 97 % Row Name 08/27/20 1625 08/27/20 1620 08/27/20 1615 08/27/20 1610 08/27/20 1605 Oxygen Therapy/Pulse Ox SpO2 97 % 93 % 95 % 93 % 94 % Row Name 08/27/20 1600 08/27/20 1513 08/27/20 1500 08/27/20 1400 08/27/20 1300 Oxygen Therapy/Pulse Ox O2 Therapy Supplemental oxygen -- Supplemental oxygen Supplemental oxygen Supplemental oxygen O2 Del Method Nasal cannula -- Nasal cannula Nasal cannula Nasal cannula SpO2 93 % 95 % 94 % 96 % (!) 88 % Patient Activity At rest -- At rest At rest At rest NT COORDINATOR * [facility] Note - Marcella Vora MSW - 08/29/2020 12:22 PM CST Patient Information: Comprehensive Nursing Documentation Attending Provider: Tai Gutierrez MD Allergies: No Known Allergies Isolation: None Infection: None Code Status: FULL Ht: 162.6 cm (5' 4.02 ) Wt: 65 kg (143 lb 4.8 oz) Admission Cmt: None Principal Problem: Acute on chronic respiratory failure with hypoxia and hypercapnia (CMS/HCC) [J96.21,J96.22] More... Intake/Output 08/26/20 0700 - 08/27/20 0659 08/27/20 0700 - 08/28/20 0659 08/28/20 0700 - 08/29/20 0659 Total Total 8840-2846 0793-4859 0293-4770 Total Intake (ml) 432.8 386.5 -- -- -- -- Output (ml) 1000 1185 -- 650 -- 650 Net (ml) -567.2 -798.5 -- -650 -- -650 Patient Lines/Drains/Airways Status Active Airway / Central venous catheter / Drain / Epidural cathether / Intraosseous line / Peripherally inserted central catheter / Peripheral intravenous line / Arterial line Name: Placement date: Placement time: Site: Days: Peripheral IV 08/23/20 20 G Right Forearm 08/23/20 1850 Forearm 5 Peripheral IV 08/25/20 20 G Anterior;Proximal;Right Forearm 08/25/20 0500 Forearm 4 Patient Lines/Drains/Airways Status Active Wound / Pressure ulcer / Matthews / Negative Pressure Wound None Suarez Fall Risk Most Recent Value Auto Low/High - if selected proceed to interventions High risk-visit due to a fall or hx of > 1 fall in past 3 months ............filed at 08/29/2020 0700 History of Falling 25 ............filed at 08/28/2020 190 Secondary Diagnosis 15 ............filed at 08/28/2020 190 Ambulatory Aids 0 ............filed at 08/28/2020 190 Intravenous Therapy/Heparin/Saline Lock 0 ............filed at 08/28/2020 1900 Gait/Transferring 10 ............filed at 08/28/2020 1900 Mental Status 15 ............filed at 08/28/2020 1900 Suarez Fall Risk Score 50 ............filed at 08/29/2020 0700 Vital Signs 08/28 07 - 08/29 0659 08/29 07 - 08/29 1222 Most Recent Temp (??C) 36.8 - 37.3 37 37 (98.6) Pulse 86 - 99 96 96 Resp 20 20 20 SpO2 (%) 94 - 100 95 95 BP 110/84 - 166/90 160/80 160/80 MAP (mmHg) 91 - 116 101 101 Non Violent Restraint Most Recent Value Restraint Alternative Less Restrictive Alternative Comfort Measures, Diversionary activities, Decrease stimulation filed at 08/27/2020 0600 Restraint Reason Clinical Justification Pulling lines, Pulling tubes filed at 08/26/2020 0800 Restraint Type (NV) Every 2 Hours Mittens-as Restraint R (NV) DISCONTINUED filed at 08/24/2020 1800 Mittens-as Restraint L (NV) DISCONTINUED filed at 08/24/2020 1800 Soft Restraint R Wrist (NV) DISCONTINUED filed at 08/26/2020 0800 Soft Restraint L Wrist (NV) DISCONTINUED filed at 08/26/2020 0800 Roll Belt (NV) DISCONTINUED filed at 08/26/2020 0800 Default Flowsheet Data (most recent) Endurance Tests No documentation. Default Flowsheet Data (most recent) Balance Tests - 08/28/20 0830 Linton Balance Scale 1. Sitting to Standing 1 2. Standing Unsupported 0 3. Sitting with Back Unsupported but Feet Supported on Floor or on a Stool 3 4. Standing to Sitting 0 5. Transfers 1 6. Standing Unsupported with Eyes Closed 0 7. Standing Unsupported with Feet Together 0 8. Reach Forward with Outstretched Arm While Standing 0 9. Pit Supervisor Object from Floor from a Standing Position 0 10. Turning to Look Behind Over Left and Right Shoulders While Standing 0 11. Turn [address] Altern[address] Foot on Step or Stool While Standing Unsupported 0 13. Standing Unsupported One Foot in Front 0 14. Standing on One Leg 0 Linton Balance Score 5 Nursing Nutrition None Nursing Mobility Activity 08/29 0700 Resting in bed 08/28 1900 Up ad geeta;Resting in bed 08/28 0900 Commode 08/27 1800 Commode 08/27 1600 Resting in bed 08/27 1400 Resting in bed 08/27 1200 Resting in bed 08/27 1000 Resting in bed 08/27 0800 Resting in bed 08/27 0600 Resting in bed 08/27 0500 Resting in bed 08/27 0400 Resting in bed 08/27 0300 Resting in bed 08/27 0200 Resting in bed 08/27 0100 Resting in bed 08/27 0000 Resting in bed 08/26 2300 Resting in bed 08/26 2200 Resting in bed 08/26 2100 Resting in bed 08/26 2000 Resting in bed 08/26 1800 Resting in bed 08/26 1600 Resting in bed 08/26 1400 Resting in bed Level of Assistance 08/29 0700 Standby assist, set-up cues, supervision of patient - no hands on 08/28 1900 Standby assist, set-up cues, supervision of patient - no hands on 08/28 0900 Standby assist, set-up cues, supervision of patient - no hands on 08/27 1800 Standby assist, set-up cues, supervision of patient - no hands on 08/26 2000 Standby assist, set-up cues, supervision of patient - no hands on 08/26 1600 Independent 08/26 1400 Independent Repositioned 08/29 0700 Turns self 08/28 0900 Turns self 08/27 1600 Turns self 08/27 1400 Turns self 08/27 1200 Turns self 08/27 1000 Turns self 08/27 0800 Turns self 08/27 0000 Turns self 08/26 2000 Turns self 08/26 1600 Turns self 08/26 1400 Turns self Positioning Frequency 08/29 0700 Able to turn self 08/28 1900 Able to turn self 08/28 0900 Able to turn self 08/27 1600 Able to turn self 08/27 1400 Able to turn self 08/27 1200 Able to turn self 08/27 1000 Able to turn self 08/27 0800 Able to turn self 08/27 0000 Able to turn self 08/26 2000 Able to turn self 08/26 1600 Able to turn self 08/26 1400 Able to turn self Head of Bed Elevated 08/29 0700 Self regulated 08/28 1900 Self regulated 08/28 0900 Self regulated 08/27 1600 Self regulated 08/27 1400 HOB 30 08/27 1200 Self regulated 08/27 1000 Self regulated 08/27 0800 Self regulated 08/27 0000 Self regulated 08/26 2000 Self regulated 08/26 1600 HOB 30 08/26 1400 HOB 30 Heels/Feet 08/28 1900 Foot of bed elevated 08/28 0900 Heels elevated off bed;Foot of bed elevated 08/27 1600 Heels elevated off bed 08/27 1400 Heels elevated off bed 08/27 1000 Heels elevated off bed 08/27 0800 Heels elevated off bed 08/27 0000 Heels elevated off bed 08/26 2000 Heels elevated off bed 08/26 1600 Heels elevated off bed 08/26 1400 Heels elevated off bed Range of Motion 08/29 0700 Active;All extremities 08/28 1900 Active;All extremities 08/28 0900 Active;All extremities 08/27 0000 Active;All extremities 08/26 2000 Active;All extremities 08/26 1600 Active;All extremities 08/26 1400 Active;All extremities NT COORDINATOR * Significant Event - Tai Gutierrez MD - 08/28/2020 12:00 PM DOCENT COORDINATOR Accept Note Division of [facility] Medicine Name: Phoebe Hillman Today: August 28, 2020 : 1940 Age: 79 y.o. female I assumed care of Phoebe Hillman on 08/28/20. I have seen and examined the patient and the medicalrecord. I agree with the progress note with date of service today. Refusing tele Would decrease pred after 72 hours (started 40 mg daily on 08/27) Start Fe sulf PO BID Check vit d level, start oral replacement, would benefit from further bone health evaluation as OP Ordered additional KCl for hypokalemia. BMP and Mg in AM Tai Gutierrez MD NT COORDINATOR * Assessment & Plan Note - Joe Geronimo MD - 08/27/2020 7:30 PM DOCENT COORDINATOR Associated Problem(s): GERD (gastroesophageal reflux disease) Continue??Home Pantoprazole 40mg Daily NT COORDINATOR * Assessment & Plan Note - Tai Gutierrez MD - 08/27/2020 7:29 PM DOCENT COORDINATOR Associated Problem(s): Chronic obstructive pulmonary disease with acute exacerbation (HCC) Continue Home??Monteleukast 10mg Daily. Cont O2- baseline 3 L, wean as able Start ICA/LABA, LAMA NT COORDINATOR NT COORDINATOR * Assessment & Plan Note - Joe Geronimo MD - 08/27/2020 7:29 PM DOCENT COORDINATOR Associated Problem(s): HTN (hypertension) HCTZ 12.5mg Oral Daily, Metoprolol Succinate 100mg Daily.?? NT COORDINATOR NT COORDINATOR * Assessment & Plan Note - Tai Gutierrez MD - 08/27/2020 7:29 PM DOCENT COORDINATOR Associated Problem(s): Thoracic spine fracture (CMS/HCC) (HCC) (Resolved 09/13/2020) Suspect secondary to fall 3 months ago where patient was reported to have sustained spinal fractures. Has been taking opiates for pain at home. 08/23 CT Abd/Pelv Moderate to Severe Compression fractures at T11 and T12. -PT/OT -Vit d replacement -Consider bone health OP evaluation NT COORDINATOR NT COORDINATOR * Assessment & Plan Note - Tai Gutierrez MD - 08/27/2020 7:28 PM DOCENT COORDINATOR Associated Problem(s): Iron deficiency anemia (Resolved 09/13/2020) Presented with Hgb in 8s without explanation, MCV high 70s, iron profile 13, ferritin 28, Tsat 4%, now s/p 1U PRBCs and 1 x Ferrlecit. - Consider age-appropriate screening and iron supplementation on outpatient basis - started fe sulf bid 08/28 NT COORDINATOR NT COORDINATOR * Assessment & Plan Note - Joe Geronimo MD - 08/27/2020 7:21 PM DOCENT COORDINATOR Associated Problem(s): Acute encephalopathy (Resolved 08/29/2020) Likely toxic-metabolic in etiology in the setting of above respiratory failure/hypercapnia. Baseline she is A&O x3. 08/23?Ammonia 52H, TSH 0.26L, T4 1.18, Lactate 0.5 -??hCT NAIA - UDS with benzos and oxycodone. -??Continue monitor NT COORDINATOR NT COORDINATOR * Assessment & Plan Note - Tai Gutierrez MD - 08/27/2020 7:21 PM DOCENT COORDINATOR Associated Problem(s): Acute on chronic respiratory failure with hypoxia and hypercapnia (CMS/HCC) (HCC) (Resolved 09/13/2020) Presented w/hypercapnic respiratory failure likely to COPD Exacerbation and possible PNA. Initiallyon BIPAP then intuabted. Unclear precipitant but some [...] 40mg (08/27-08/28) -??Albuterol and Ipratropium HFA q4hrs NT COORDINATOR NT COORDINATOR NT COORDINATOR * Significant Event - Phyllis Li MD - 08/27/2020 4:23 PM DOCENT COORDINATOR ICU TO MEDICINE HANDOFF TOOL Primary reason for ICU admission: AHRF requiring BiPAP Brief ICU HPI: Phoebe Hillman is a 79 y.o. female who has a PMH of pHTN, COPD (b/l 3L O2), HTN and GERD who presented for dyspnea and L sided weakness who was BIBEMS as Code Stroke requiring BiPAP. ?? Patient's LKN 08/22 at 2200. Patient was having difficulty waking up this morning and when evaluatedby EMS had left sided-weakness with vomit around the mouth. ?? In the ED, patient was afebrile, normotensive, P 86, RR 17, and SpO2 94% and dyspneic with increased WOB and diffuse wheezing noted to have mild abdominal distention mildly tender to palpation. Patient was evaluated by Neurology NIHSS 7 on admission but non-focal. hCT showed cerebral atrophy. She was NO-GO for tPA as presenting outside window and did not undergo CTA/CTP due to thought this was a stroke mimic in the setting of toxic-metabolic derangements. Labs were notable for WBC 7.2, microcytic anemia Hb 8L MCV 80.9, Na 145, K 4.6, BUN 17, Cr 0.59, LFTs WNL, Glu 109, Ammonia 52H, Lactate 0.5L, TSH 0.26L, Trop <4. VBG 7.18 >125 36. UA with 1+ protein, trace bacteria, no LE or nitrite. COVID Negative. CXR whoed small lung volumes and patchy airspace opacitiies throughout the right lung.CT Abd/Pelv with mild to mod hiatal hernia, changes of aspiration in RLL and small R pleural effusion. Non-specific hypoattentuation in the R kidney that can be seen in s/o pyelonephritis. Mod to severe compression fracture of T11 and T12. EKG NSR and no significant change from 2015. ?? She was given Vanc/Cefe/Azithro, Methyprednisolone and DuoNebs for presumes Aspiration Pneumonia/COPD Exacerbation and placed on BiPAP. Patient was admitted to MICU for further management and evaluation of patient's acute hypercapneic respiratory failure requiring BiPAP. ?? On arrival to MICU patient was on BiPAP at 24/10 pulling low TVs. She was awake and intermittently responsive to commands. She was subsequently intubated and started on Vanc/Cefe/Azithro (08/23), Ctx/Azithro (08/24 - 08/25), Ceftriaxone (08/25 - ). She is also on a steroid taper. Patient was successfully extubated to BiPAP on 08/26. Active consultants: None New findings that warrant follow-up and pending studies: None PERTINENT physical exam findings on day of transfer: Important changes to home medications: GENERAL: Well-developed, laying in bed and in no acute distress. HENT: NECK: Normocephalic, atraumatic, anicteric sclera. Neck is supple and non-tender. FROM. CARDIAC: Normal rate and regular rhythm. Normal S1 and S2. No murmurs or gallops. No peripheral edema. PULM: Coarse breath sounds bilaterally. Non-labored respirations. ABDOMEN: Soft, nondistended, nontender. Positive bowel sounds. No guarding or rebound. EXTREMITIES: Cool. Peripheral pulses symmetric intact. SKIN: No rashes or bruising. NEURO: Alert and oriented. Follows 1 and 2 step commands. Spontaneously moves upper and lower extremities. PSYCH: Appropriate mood and affect. Medications to consider stopping prior to discharge: [] New antipsychotic (started for ICU delirium): [] Other: N/A Major problems/Plans: #Acute Hypercapnic Respiratory Failure Patient presenting in acute hypercapnic respiratory failure likely to COPD Exacerbation vs Aspiration PNA requiring intubation on 08/23 PM after arrival to the ICU due to increased WOB and altered mental status. Wheezes and crackles on exam. Unclear precipitant at this time though per chart review concern for polypharmacy in the setting of multiple benzo prescriptions (Clonazepam and Tenazepam) along with opiates. Given patient without risk factors for HAP will treat for CAP??and evaluate for other possible infectious causes. 08/23 VBG 7.16 >125 158 >> 7.17 125 41 >> 7.14 >125 31?UA 1+ protein, trace bacteria ?CXR Small lung volumes with patchy airspace opacities on the R. No pleural effusion. ?CXR post intubation with unchanged patchy airspace opacities. ETT in place 1cm above tricai and was pulled back 1 cm. -??RVP neg, Legionella Ag neg, COVID neg - MRSA nasal swab pending - BCx and trach asp Cx 08/23 NGTD -??Intubated 08/23;??Extubated 08/26 - Abx:??Vanc/Cefe (08/23); Azithro (08/23 - 08/25) Ceftriaxone (08/23 - 08/27) - Prednisone 60mg daily (08/23-08/26), decreased to 40mg (08/27) -??Albuterol and Ipratropium HFA q4hrs - FBG -500 ?? #Altered Mental Status, improving Suspect toxic-metabolic in etiology in the setting of above respiratory failure, likely 2/2 hypercapnia. Will monitor for resolution as patient's symptoms resolve.??Per patient??daughter at baseline she is A&O x3. 08/23?Ammonia 52H, TSH 0.26L, T4 1.18, Lactate 0.5 ?hCT NAIA, UDS with benzos and oxycodone. - Continue monitor ?? #Iron deficiency anemia Presented with Hgb in 8s without explanation, MCV high 70s, iron profile 13, ferritin 28, Tsat 4%, now s/p 1U PRBCs and 1 x Ferrlecit. - Consider age-appropriate screening and iron supplementation on outpatient basis - No additional iron given ongoing infection. ?? #T Spine Fractures Suspect secondary to fall 3 months ago where patient was reported to have sustained spinal fractures. Has been taking opiates for pain at home. 08/23 CT Abd/Pelv Moderate to Severe Compression fractures at T11 and T12. - Continue to monitor ?? #HTN:?? Home regimen:??HCTZ 12.5mg Oral Daily, Metoprolol Succinate 100mg Daily. - Start HCT 12.5mg Daily ?? #COPD:?? Continue Home??Monteleukast 10mg Daily. Treat as above ?? #GERD:?? Continue??Home Pantoprazole 40mg Daily Best family contact: Kim Dodson (daughter): [phone] Rehab/Ancillary Consults: [] BI (trauma patient with LOC) [] Chemical dependency [x] PT [] OT [] Speech [] PM&R [] SMART (stroke patient) [] Wound care Anticoagulation therapy: [x] VTE Prophylaxis [] Heparin [x] Lovenox [] SCDs [] IVC Filter [] Other: [] None - Reason: Current antimicrobial therapy: Note - Planned duration may be a number of days or a criterion such as while drain in place or until blood cultures negative ??? [Ceftriaxone] Indication: PNA Start Date: 08/24 Planned Duration: Till 08/27 Lines/drains/airways present Peripheral IV 08/23/20 20 G Right Forearm (Active) Number of days: 4 Peripheral IV 08/25/20 20 G Anterior;Proximal;Right Forearm (Active) Number of days: 2 Urethral Catheter Temperature probe (Active) Number of days: 4 [x] Sign-out was called to Dr. Pavon of the Hospitalist service. QUESTIONS? Call [phone] MICU Resident NT COORDINATOR * Plan of Care - Cristal Martin, LOG SCALER - 08/27/2020 9:47 AM CST Pt received 2 puffs of albuterol and ipratropium Q4. NT COORDINATOR * Plan of Care - Aimee Alas RN - 08/27/2020 9:00 AM CST Problem: Lack of Knowledge: Goal: [...] improve to fullest extent possible Outcome: Progressing Problem: Health Behavior: Goal: Understanding of discharge needs will improve Outcome: Progressing Problem: Lack of Knowledge: Goal: Knowledge of restraints will improve Description: INTERVENTIONS: 1. Educate patient/caregiver on restraints Outcome: Progressing Problem: Safety - Medical Restraint Goal: Remains free of injury from restraints (Restraint for Interference with Pleating Machine Operator) Description: INTERVENTIONS: 1. Identify and document the criteria for restraint 2. Determine that other, less restrictive measures have been tried or would not be effective beforeapplying the restraint 3. Evaluate the patient's condition at the time of restraint application and continue to monitor patient's condition 4. Inform patient/family regarding the reason for restraint 5. Q2H: Monitor safety checks including skin, circulation, sensory,respiratory, psychosocial status, comfort, nutrition and hydration 6. Ensure safety/first aid measures are in place (i.e. Quick release, suction, crash cart, etc.) Outcome: Progressing Goal: Free from restraint(s) (Restraint for Interference with Pleating Machine Operator) Description: INTERVENTIONS: 1. Q2H and PRN: Assess and document the continuing need for restraints 2. Q24H: Continued use of restraint requires LIP to perform face to face examination and written order (ICU restraint orders are not reviewed Q24H only at the time of initiation) 3. Identify and implement measures to help patient regain control Outcome: Progressing Goals: Clinical Goals for the Shift: be able to eat Summary: vitals as noted. Weaning dex as pt tolerates. To address diet during rounds. NT COORDINATOR * Plan of Care - Arturo Gilmore RRT - 08/27/2020 3:08 AM CST Pt was extubated on day shift. Pt did not wear bipap all night. Pt had a NC on 4L and was resting comfortably overnight. RT will continue to monitor and assess. NT COORDINATOR * Plan of Care - Arturo Gilmore RRT - 08/26/2020 4:46 AM CST Patient on full vent support. No acute changes overnight. Receiving Albuterol and Atrovent inhalers. RT will continue to monitor. NT COORDINATOR * Plan of Care - Adela Jones, SHANNON - 08/25/2020 1:35 AM CST Patient on full vent support. Receiving Albuterol and Atrovent inhalers. RT will continue to monitor. NT COORDINATOR * Significant Event - Donta Lizarraga MD PhD - 08/24/2020 12:54 PM DOCENT COORDINATOR Isolation Discontinuation Note for High Risk of COVID-19 Patient I am currently the primary inpatient provider for Phoebe Hillman. This patient was assessed to be high-risk for possible COVID-19 at the time of admission to the hospital, however given further clinical findings during their hospital stay I now assess this patient to be of negligible risk for COVID-19 and to thus qualify for discontinuation of COVID-19 level isolation precautions. As per hospital policy the rationale for the above assessment is one of the following: [x] The patient has at least 1 negative COVID-19 RT-PCR test (standalone or RVP) from this admission, and a convincing alternative medical diagnosis that explains the symptoms that were initially thought to be concerning for COVID-19 (see below for explanatory diagnosis). Explanatory Diagnosis for symptoms concerning for COVID-19: COPD exacerbation OR [] The patient has at least two negative COVID-19 RT-PCR tests ((standalone or RVP) during this admission, done at least 24 hours apart. Donta Lizarraga, PGY-1, Internal Medicine Per [facility] policy, in addition to this note discontinuation of COVID-19 level isolation requires the provider contact the [facility] [employer] On-[employer] ([email or web address], utilize the on-call tab to locate the right person) for removal of the isolation flag in Epic. Additionally, removal of COVID-19 level precautions does not negate the currenthospital-wide recommendation to universally mask for all patient encounters and to use eye protection for all patient encounters where patients are unable to mask themselves. COVID-19 Compatible Symptom List: - Clinical (must be new or worsening) : Fever, chills, cough, shortness of breath, oxygen requirement, muscle aches/pains, sore throat, headaches, loss of smell/taste - Imaging (must be new or worsening): Infiltrate(s) on Chest XR or Chest CT NT COORDINATOR * Plan of Care - Octavia Hidalgo RN - 08/24/2020 8:47 AM CST Unable to complete initial assessment. Patient is intubated. CM contacted daughterJoanna # [phone]; no answer, left voicemail. CM will continue to follow. Report per [facility] Impression: 79 yo F with PMH of pHTN, COPD, HTN, GERD. Admitted for dyspnea and left sided weakness; possible stroke. Plan: Intubated. Sedated. On Precedex gtt. Steroids. PT/OT recs when appropriate. Possible placement vs home with HH services. IF HH is recommended, will need HH agency list prior to discharge. CM will continue to follow for referrals and discharge planning. Referrals: none Support: family Transportation: TBD F/U Appt: TBD ADD: 1 week Case Management will follow for planning and referrals as needed. Octavia Hidalgo RN, BSN family independence case manager # [phone] For emergency needs after 4:30 pm, please call the public health professor [phone]. For weekend/holiday needs from 8:00a.m. - 4:30p.m., please call the Weekend Tomato Pulper Operator . NT COORDINATOR * Plan of Care - Ritchie Harvey RRT - 08/24/2020 5:20 AM CST Patient ordered 16 puffs Albuterol q4 hrs and 8 puffs of Atrovent q4 hrs for COPD. Continue the tx as ordered . Pt. Is also on full ventilator support continue to monitor. NT COORDINATOR * ED Procedure Note - Agatha Loredo MD - 08/23/2020 10:32 PM DOCENT COORDINATOR Associated Order(s): Critical Care Procedure Critical Care Performed by: Agatha Loredo MD Authorized by: Agatha Loredo MD Critical care provider statement: As reflected in the history, physical exam, orders, notes, and/or MDM, I was personally present while the patient was critically ill and provided critical care services for approximately 40 minutes, excluding time involved in separately billable procedures. Critical care was necessary to treat or prevent imminent or life-threatening deterioration of the following condition(s): unstable vital signs encephalopathy hypoxic respiratory failure, hypercarbic respiratory failure, COPD with acute exacerbation and severe respiratory condition acid-base disturbance, acute electrolyte derangement and hypo/hyper glycemic control sepsis and pneumonia Critical care was time spent by me providing the following: continuous telemetry, continuous pulse oximetry, continuous capnography, interpretation of bedside monitors, imaging, and arterial/venous lab draws, serial bedside patient exams and serial laboratorychecks frequent neurologic exams decision regarding NPO status and active monitoring of intake/output status supplemental oxygen, frequent bronchodilator treatments and non-invasive positive pressure ventilator management placement of guerrero catheter for close monitoring of renal function and initiation of steroids I provided emergent necessary critical care medicine [...] medical record. I admitted this patient to an Intensive Care unit (ICU) and discussed management with the admitting team. Agatha Loredo MD 08/23/20 1398 NT COORDINATOR * ED Procedure Note - Agatha Loredo MD - 08/23/2020 6:50 PM DOCENT COORDINATOR Associated Order(s): ECG 12 lead Procedure ECG 12 lead Date/Time: 08/23/2020 6:50 PM Performed by: Agatha Loredo MD Authorized by: Agatha Loredo MD Rate: ECG rate: 73 ECG rate assessment: normal Rhythm: Rhythm: sinus rhythm Ectopy: Ectopy: none QRS: QRS axis: Normal Conduction: Conduction: normal ST segments: ST segments: Normal T waves: T waves: inverted Inverted: III and V1 Previous ECG: Previous ECG: Compared to current Date of previous EC05/10/2015 Interpretation: Interpretation: No significant change Recommended Follow-up: Recommended follow up: further workup in the ED Agatha Loredo MD 08/23/20 [id number] NT COORDINATOR documented in this encounter Plan of Treatment Pending Results Name Type Priority Associated Diagnoses Date /Time Infection Prevention MRSA Only (Staphylococcus aureus) Culture Nasal Microbiology Routine 08/23/2020 9:29 PM DOCENT COORDINATOR MRSA Only (Staphylococcus aureus) Culture Nasal Microbiology STAT 08/23/2020 11:43 PM DOCENT COORDINATOR Scheduled Orders Name Type Priority Associated Diagnoses Orde r Schedule Infection Prevention MRSA Only (Staphylococcus aureus) Culture Nasal Microbiology Routine Once for 1 Occurrences starting 08/23/2020 until 08/23/2020 MRSA Only (Staphylococcus aureus) Culture Nasal Microbiology STAT STAT for 1 Occurrences starting 08/23/2020 until 08/23/2020 documented as of this encounter Procedures Procedure Name Priority Date/Time Associated Diagnosis Comments DIFFERENTIAL AUTO Routine 08/29/2020 8:3 2 PM DOCENT COORDINATOR CBC WITH AUTO DIFFERENTIAL Routine 08/29/2020 8:32 PM DOCENT COORDINATOR PHOSPHORUS Routine 08/29/2020 8:32 PM DOCENT COORDINATOR MAGNESIUM Routine 08/29/2020 8:32 PM DOCENT COORDINATOR BASIC METABOLIC PANEL Routine 08/29/2020 8:32 PM DOCENT COORDINATOR POCT GLUCOSE DEVICE Routine 08/29/2020 7 :32 PM DOCENT COORDINATOR URINALYSIS AND REFLEX TO MICROSCOPIC AND CULTURE Routine 08/29/2020 5:53 PM DOCENT COORDINATOR URINALYSIS, MICROSCOPIC ONLY Routine 08/29/2020 5:53 PM DOCENT COORDINATOR DIFFERENTIAL AUTO Routine 08/29/2020 5:0 2 AM DOCENT COORDINATOR CBC WITH AUTO DIFFERENTIAL Routine 08/29/2020 5:02 AM DOCENT COORDINATOR VITAMIN D 25 HYDROXY Routine 08/29/2020 5:02 AM DOCENT COORDINATOR PHOSPHORUS Routine 08/29/2020 5:02 AM DOCENT COORDINATOR MAGNESIUM Routine 08/29/2020 5:02 AM DOCENT COORDINATOR BASIC METABOLIC PANEL Routine 08/29/2020 5:02 AM DOCENT COORDINATOR DIFFERENTIAL AUTO Routine 08/28/2020 4:3 5 AM DOCENT COORDINATOR CBC WITH AUTO DIFFERENTIAL Routine 08/28/2020 4:35 AM DOCENT COORDINATOR PHOSPHORUS Routine 08/28/2020 4:35 AM DOCENT COORDINATOR MAGNESIUM Routine 08/28/2020 4:35 AM DOCENT COORDINATOR BASIC METABOLIC PANEL Routine 08/28/2020 4:35 AM DOCENT COORDINATOR BLOOD GAS, VENOUS Timed 08/27/2020 10: 01 AM DOCENT COORDINATOR DIFFERENTIAL AUTO Routine 08/26/2020 8:4 3 PM DOCENT COORDINATOR CBC WITH AUTO DIFFERENTIAL Routine 08/26/2020 8:43 PM DOCENT COORDINATOR TYPE AND SCREEN Timed 08/26/2020 8:43 PM DOCENT COORDINATOR PHOSPHORUS Routine 08/26/2020 8:43 PM DOCENT COORDINATOR MAGNESIUM Routine 08/26/2020 8:43 PM DOCENT COORDINATOR BLOOD GAS, VENOUS Timed 08/26/2020 8:4 3 PM DOCENT COORDINATOR BASIC METABOLIC PANEL Routine 08/26/2020 8:43 PM DOCENT COORDINATOR DIFFERENTIAL AUTO Routine 08/26/2020 12: 18 AM DOCENT COORDINATOR CBC WITH AUTO DIFFERENTIAL Routine 08/26/2020 12:18 AM DOCENT COORDINATOR PHOSPHORUS Routine 08/26/2020 12:18 AM DOCENT COORDINATOR MAGNESIUM Routine 08/26/2020 12:18 AM DOCENT COORDINATOR BLOOD GAS, VENOUS Timed 08/26/2020 12: 18 AM DOCENT COORDINATOR BASIC METABOLIC PANEL Routine 08/26/2020 12:18 AM DOCENT COORDINATOR XR CHEST 1 VIEW ED Urgent/IP Urgent 08/25/2020 10:59 PM DOCENT COORDINATOR XR CHEST 1 VIEW IP Routine 08/25/2020 8:30 PM DOCENT COORDINATOR XR ABDOMEN AP 1 VIEW ED Urgent/IP Urgent 08/25/2020 8:30 PM DOCENT COORDINATOR RT COMMUNICATION Routine 08/25/2020 8:25 PM DOCENT COORDINATOR TRANSTHORACIC ECHO (TTE) COMPLETE W DOPPLER/CF W CONTRAST Routine 08/25/2020 11:45 AM DOCENT COORDINATOR DIFFERENTIAL AUTO Routine 08/25/2020 12: 39 AM DOCENT COORDINATOR CBC WITH AUTO DIFFERENTIAL Routine 08/25/2020 12:39 AM DOCENT COORDINATOR PHOSPHORUS Routine 08/25/2020 12:39 AM DOCENT COORDINATOR MAGNESIUM Routine 08/25/2020 12:39 AM DOCENT COORDINATOR BLOOD GAS, VENOUS Timed 08/25/2020 12: 39 AM DOCENT COORDINATOR BASIC METABOLIC PANEL Routine 08/25/2020 12:39 AM DOCENT COORDINATOR TRANSFUSE RED BLOOD CELLS Timed 08/24/2020 10:00 PM DOCENT COORDINATOR PREPARE RBC Timed 08/24/2020 9:06 PM DOCENT COORDINATOR XR CHEST 1 VIEW IP Routine 08/24/2020 8:40 PM DOCENT COORDINATOR HEMOGLOBIN AND HEMATOCRIT STAT 08/24/2020 8:10 PM DOCENT COORDINATOR IRON PROFILE W/ IBC Routine 08/24/2020 5:37 PM DOCENT COORDINATOR HEMOGLOBIN AND HEMATOCRIT Timed 08/24/2020 5:37 PM DOCENT COORDINATOR FERRITIN Routine 08/24/2020 5:37 PM DOCENT COORDINATOR BLOOD GAS, VENOUS STAT 08/24/2020 3:3 7 PM DOCENT COORDINATOR DIFFERENTIAL AUTO Routine 08/24/2020 6:5 8 AM DOCENT COORDINATOR CBC WITH AUTO DIFFERENTIAL Routine 08/24/2020 6:58 AM DOCENT COORDINATOR PHOSPHORUS Routine 08/24/2020 6:58 AM DOCENT COORDINATOR MAGNESIUM Routine 08/24/2020 6:58 AM DOCENT COORDINATOR BLOOD GAS, VENOUS Timed 08/24/2020 6:5 8 AM DOCENT COORDINATOR BASIC METABOLIC PANEL Routine 08/24/2020 6:58 AM DOCENT COORDINATOR DRUGS OF ABUSE SCREEN, URINE WITH REFLEX CONFIRMATION Routine 08/23/2020 11:47 PM DOCENT COORDINATOR OPIATES CONFIRMATION MS, URINE Routine 08/23/2020 11:47 PM DOCENT COORDINATOR LEGIONELLA ANTIGEN, URINE Routine 08/23/2020 11:47 PM DOCENT COORDINATOR TROPONIN I HIGH-SENSITIVITY 6-HOUR Timed 08/23/2020 11:43 PM DOCENT COORDINATOR B CHECK SAMPLE STAT 08/23/2020 11:43 PM DOCENT COORDINATOR AEROBIC CULTURE AND GRAM STAIN STAT 08/23/2020 11:43 PM DOCENT COORDINATOR BLOOD GAS, ARTERIAL Timed 08/23/2020 1 1:43 PM DOCENT COORDINATOR XR ABDOMEN AP 1 VIEW ED Urgent/IP Urgent 08/23/2020 11:11 PM DOCENT COORDINATOR XR CHEST 1 VIEW ED Urgent/IP Urgent 08/23/2020 11:10 PM DOCENT COORDINATOR [place] CRITICAL CARE ILL/INJURED PATIENT INIT 30-74 MIN Routine 08/23/2020 10:32 PM DOCENT COORDINATOR INTUBATION Routine 08/23/2020 10:29 PM DOCENT COORDINATOR Acute hypercapnic respiratory failure (CMS/HCC) ECG 12-LEAD STAT 08/23/2020 10:10 PM DOCENT COORDINATOR XR CHEST 1 VIEW IP Routine 08/23/2020 9:45 PM DOCENT COORDINATOR TROPONIN I HIGH-SENSITIVITY 4-HOUR Timed 08/23/2020 9:29 PM DOCENT COORDINATOR DIFFERENTIAL AUTO STAT 08/23/2020 9:2 9 PM DOCENT COORDINATOR CRITICAL RESULT CALLBACK CHEMISTRY Timed 08/23/2020 9:29 PM DOCENT COORDINATOR CBC WITH AUTO DIFFERENTIAL STAT 08/23/2020 9:29 PM DOCENT COORDINATOR TYPE AND SCREEN Timed 08/23/2020 9:29 PM DOCENT COORDINATOR T3, FREE STAT 08/23/2020 9:29 PM DOCENT COORDINATOR T4, FREE STAT 08/23/2020 9:29 PM DOCENT COORDINATOR PHOSPHORUS STAT 08/23/2020 9:29 PM DOCENT COORDINATOR MAGNESIUM STAT 08/23/2020 9:29 PM DOCENT COORDINATOR BLOOD GAS, VENOUS Timed 08/23/2020 9:2 9 PM DOCENT COORDINATOR LIPID PANEL STAT 08/23/2020 9:29 PM DOCENT COORDINATOR BASIC METABOLIC PANEL STAT 08/23/2020 9:29 PM DOCENT COORDINATOR TROPONIN I HIGH-SENSITIVITY 2-HOUR Timed 08/23/2020 7:58 PM DOCENT COORDINATOR CRITICAL RESULT CALLBACK CHEMISTRY STAT 08/23/2020 7:58 PM DOCENT COORDINATOR BLOOD GAS, VENOUS STAT 08/23/2020 7:5 8 PM DOCENT COORDINATOR XR CHEST 1 VIEW ED 08/23/2020 7:27 PM DOCENT COORDINATOR URINALYSIS AND REFLEX TO MICROSCOPIC AND CULTURE STAT 08/23/2020 7:12 PM DOCENT COORDINATOR URINALYSIS, MICROSCOPIC ONLY STAT 08/23/2020 7:12 PM DOCENT COORDINATOR ECG 12-LEAD STAT 08/23/2020 6:50 PM DOCENT COORDINATOR CRITICAL RESULT CALLBACK CHEMISTRY STAT 08/23/2020 6:48 PM DOCENT COORDINATOR THYROID FUNCTION CASCADE STAT 08/23/2020 6:48 PM DOCENT COORDINATOR BLOOD CULTURE STAT 08/23/2020 6:48 PM DOCENT COORDINATOR T4, FREE STAT 08/23/2020 6:48 PM DOCENT COORDINATOR BLOOD GAS, VENOUS STAT 08/23/2020 6:4 8 PM DOCENT COORDINATOR AMMONIA STAT 08/23/2020 6:48 PM DOCENT COORDINATOR HEPATIC FUNCTION PANEL STAT 08/23/2020 6:48 PM DOCENT COORDINATOR POC BLOOD GAS AND CHEMISTRIES, ARTERIAL Routine 08/23/2020 6:40 PM DOCENT COORDINATOR INFLUENZA A/B, RSV, AND COVID-19 PCR Routine 08/23/2020 6:32 PM DOCENT COORDINATOR BLOOD CULTURE STAT 08/23/2020 6:32 PM DOCENT COORDINATOR RESPIRATORY PATHOGEN PANEL Routine 08/23/2020 6:[address] ABDOMEN PELVIS W CONTRAST ED 08/23/2020 6:17 PM DOCENT COORDINATOR POCT CREATININE - DEVICE Routine 08/23/2020 6:[address] STROKE PROTOCOL WO CONTRAST Critical/Life-T hreatening 08/23/2020 6:07 PM DOCENT COORDINATOR TROPONIN I HIGH-SENSITIVITY SERIES (BASELINE, 2HR, 4HR, 6HR) STAT 08/23/2020 5:58 PM DOCENT COORDINATOR DIFFERENTIAL AUTO STAT 08/23/2020 5:5 8 PM DOCENT COORDINATOR CRITICAL RESULT CALLBACK CHEMISTRY STAT 08/23/2020 5:58 PM DOCENT COORDINATOR CBC WITH AUTO DIFFERENTIAL STAT 08/23/2020 5:58 PM DOCENT COORDINATOR APTT STAT 08/23/2020 5:58 PM DOCENT COORDINATOR BLOOD GAS, VENOUS STAT 08/23/2020 5:5 8 PM DOCENT COORDINATOR BASIC METABOLIC PANEL STAT 08/23/2020 5:58 PM DOCENT COORDINATOR POCT PROTHROMBIN TIME, WHOLE BLOOD Routine 08/23/2020 5:56 PM DOCENT COORDINATOR POCT GLUCOSE DEVICE Routine 08/23/2020 5 :56 PM DOCENT COORDINATOR documented in this encounter Results * (ABNORMAL) Differential, auto (08/29/2020 8:32 PM DOCENT COORDINATOR) Pathologist [facility] Neutrophil abs 6.9(H) 1.7 - 6.5 K/cumm [facility] Imm gran abs 0.1 0.0 - 0.1 K/cumm [facility] Lymphocyte abs 1.5 0.8 - 3.3 K/cumm [facility] Monocyte abs 1.2(H) 0.2 - 0.8 K/cumm [facility] Eosinophil abs 0.0 0.0 - 0.5 K/cumm [facility] Basophil abs 0.0 0.0 - 0.1 K/cumm [facility] Neutrophil pct 71.0 % [facility] Comment: Interpretive Data Percent cell count reference ranges are not reported, since discordance with absolute values may lead to misinterpretation of CBC data. Current Interpretive Data was last revised on 2017. Imm gran pct 0.6 % [facility] Comment: Interpretive Data Percent cell count reference ranges are not reported, since discordance with absolute values may lead to misinterpretation of CBC data. Current Interpretive Data was last revised on 2017. Lymphocyte pct 15.6 % [facility] Comment: Interpretive Data Percent cell count reference ranges are not reported, since discordance with absolute values may lead to misinterpretation of CBC data. Current Interpretive Data was last revised on 2017. Monocyte pct 12.4 % [facility] Comment: Interpretive Data Percent cell count reference ranges are not reported, since discordance with absolute values may lead to misinterpretation of CBC data. Current Interpretive Data was last revised on 2017. Eosinophil pct 0.3 % [facility] Comment: Interpretive Data Percent cell count reference ranges are not reported, since discordance with absolute values may lead to misinterpretation of CBC data. Current Interpretive Data was last revised on 2017. Basophil pct 0.1 % [facility] Comment: Interpretive Data Percent cell count reference ranges are not reported, since discordance with absolute values may lead to misinterpretation of CBC data. Current Interpretive Data was last revised on 2017. Blood specimen (specimen) 08/29/2020 8:32 PM DOCENT COORDINATOR 08/29/2020 9:21 PM DOCENT COORDINATOR Tai Gutierrez MD LAB BLOOD ORDERABLES Fi nal Result Performing Organization Address [facility] Co de Phone Number [facility] [place] [address] * Phosphorus (08/29/2020 8:32 PM DOCENT COORDINATOR) Phosphorus, pl 3.3 2.3 - 4.5 mg/dL [facility] Blood specimen (specimen) 08/29/2020 8:32 PM DOCENT COORDINATOR 08/29/2020 9:21 PM DOCENT COORDINATOR Tai Gutierrez MD LAB BLOOD ORDERABLES Fi nal Result [facility] [place] [address] * Magnesium (08/29/2020 8:32 PM DOCENT COORDINATOR) [facility] Magnesium 1.9 1.4 - 2.5 mg/dL [facility] Blood specimen (specimen) 08/29/2020 8:32 PM DOCENT COORDINATOR 08/29/2020 9:21 PM DOCENT COORDINATOR Tai Gutierrez MD LAB BLOOD ORDERABLES Fi nal Result Performing Organization Address City/[facility] Co de Phone Number [facility] [place] [address] * (ABNORMAL) CBC with auto differential (08/29/2020 8:32 PM DOCENT COORDINATOR) [facility] WBC 9.7 3.8 - 9.9 K/cumm [facility] Hgb 10.8(L) 11.9 - 15.5 g/dL [facility] Hct 37.5 35.6 - 45.5 % [facility] Plt 357 150 - 400 K/cumm [facility] MPV 9.9 9.1 - 12.3 fL [facility] RBC 4.66 3.90 - 5.20 M/cumm [facility] MCV 80.5(L) 81.3 - 96.4 fL [facility] MCH 23.2(L) 27.1 - 33.3 pg [facility] MCHC 28.8(L) 32.3 - 35.7 g/dL [facility] RDW CV 21.1(H) 11.1 - 14.9 % [facility] RDW SD 58.1(H) 35.7 - 48.1 fL [facility] NRBC abs 0.00 0.00 - 0.01 K/cumm [facility] Blood specimen (specimen) 08/29/2020 8:32 PM DOCENT COORDINATOR 08/29/2020 9:21 PM DOCENT COORDINATOR Tai Gutierrez MD LAB BLOOD ORDERABLES Fi nal Result [facility] [place] [address] * (ABNORMAL) Basic metabolic panel (08/29/2020 8:32 PM DOCENT COORDINATOR) Pathologist [facility] Sodium 142 135 - 145 mmol/L [facility] Potassium, pl 3.4 3.3 - 4.9 mmol/L [facility] Chloride 97 97 - 110 mmol/L [facility] CO2 41(H) 22 - 32 mmol/L [facility] Anion gap 4 2 - 15 mmol/L [facility] BUN 17 8 - 25 mg/dL [facility] Creatinine 0.58(L) 0.60 - 1.10 mg/dL [facility] Glucose 227(H) 70 - 199 mg/dL [facility] Comment: Interpretive Data Fasting glucose >/= [...] interpretive data was last revised 2017. Calcium 9.3 8.5 - 10.3 mg/dL [facility] Blood specimen (specimen) 08/29/2020 8:32 PM DOCENT COORDINATOR 08/29/2020 9:21 PM DOCENT COORDINATOR Tai Gutierrez MD LAB BLOOD ORDERABLES Fi nal Result Performing Organization Address [facility]/ZIP Co de Phone Number [facility] [place] [address] * (ABNORMAL) POCT glucose (08/29/2020 7:32 PM DOCENT COORDINATOR) Glucose, POC 272(H) 70 - 199 mg/dL [facility] Blood specimen (specimen) 08/29/2020 7:32 PM DOCENT COORDINATOR 08/29/2020 7:32 PM DOCENT COORDINATOR Tai Gutierrez MD LAB POCT ORDERABLES - D EVICE Final Result Performing Organization Address [facility] de Phone Number [facility] [place] [address] * (ABNORMAL) Urinalysis, microscopic only (08/29/2020 5:53 PM DOCENT COORDINATOR) WBC, ur 6-10(A) 0 - 5 /HPF [facility] RBC, ur 21-50(A) 0 - 2 /HPF [facility] Epithelial cells, squamous, ur 1-5 0 - 5 /HPF [facility] Epithelial cells, transitional, ur 1-5 0 - 0 /HPF [facility] Bacteria, ur Trace(A) [facility] Mucous, ur Present(A) [facility] Hyaline casts, ur 11-20(A) 0 - 10 /LPF [facility] Culture Reflex Comment Reflex conditions for urine culture (WBC >10) not met. [facility] Urine 08/29/2020 5:53 PM DOCENT COORDINATOR 08/29/2020 6:00 PM DOCENT COORDINATOR Tai Gutierrez MD LAB URINE ORDERABLES Fi nal Result Performing Organization Address [facility] de Phone Number [facility] [place] [address] * (ABNORMAL) Urinalysis reflex to microscopic and culture Urine (08/29/2020 5:53 PM DOCENT COORDINATOR) Color, ur Yellow Yellow [facility] Clarity, ur Cloudy(A) Clear [facility] Specific gravity, ur 1.020 1.010 - 1.025 [facility] pH, urine 5 [facility] Protein, ur ql 2+(A) Negative [facility] Glucose, ur ql Negative Negative [facility] Ketones, ur 1+(A) Negative [facility] Bilirubin, ur Negative Negative [facility] Blood, ur 2+(A) Negative [facility] Urobilinogen, ur <2.0 <2.0 mg/dL [facility] Nitrite, ur Negative Negative [facility] Leukocyte esterase, ur 1+(A) Negative [facility] UA reflex comment Reflex to microscopic UA will be performed. [facility] Urine 08/29/2020 5:53 PM DOCENT COORDINATOR 08/29/2020 6:00 PM DOCENT COORDINATOR Narrative [facility] - 08/29/2020 6:33 PM DOCENT COORDINATOR ?? Urine pH is affected by diet, medications, systemic acid-base disturbances, and renal tubular function. ??pH may affect urinary stone formation. ??For example, urine pH below 6.0 may help reduce the tendency for calcium phosphate stones and pH greater than 6.0 may reduce the tendency for uric acid stone formation. Source: [employer]. Last revised 08-15-2017 us Tai Gutierrez MD LAB MICROBIOLOGY - GENE RAL ORDERABLES Final Result [facility] [place] [address] * (ABNORMAL) Differential, auto (08/29/2020 5:02 AM DOCENT COORDINATOR) Neutrophil abs 5.7 1.7 - 6.5 K/cumm [facility] Imm gran abs 0.1 0.0 - 0.1 K/cumm [facility] Lymphocyte abs 1.7 0.8 - 3.3 K/cumm [facility] Monocyte abs 1.3(H) 0.2 - 0.8 K/cumm [facility] Eosinophil abs 0.0 0.0 - 0.5 K/cumm [facility] Basophil abs 0.0 0.0 - 0.1 K/cumm [facility] Neutrophil pct 64.4 % [facility] Comment: Interpretive Data Percent cell count reference ranges are not reported, since discordance with absolute values may lead to misinterpretation of CBC data. Current Interpretive Data was last revised on 2017. Imm gran pct 0.6 % [facility] Comment: Interpretive Data Percent cell count reference ranges are not reported, since discordance with absolute values may lead to misinterpretation of CBC data. Current Interpretive Data was last revised on 2017. Lymphocyte pct 19.8 % [facility] Comment: Interpretive Data Percent cell count reference ranges are not reported, since discordance with absolute values may lead to misinterpretation of CBC data. Current Interpretive Data was last revised on 2017. Monocyte pct 15.0 % [facility] Comment: Interpretive Data Percent cell count reference ranges are not reported, since discordance with absolute values may lead to misinterpretation of CBC data. Current Interpretive Data was last revised on 2017. Eosinophil pct 0.0 % [facility] Comment: Interpretive Data Percent cell count reference ranges are not reported, since discordance with absolute values may lead to misinterpretation of CBC data. Current Interpretive Data was last revised on 2017. Basophil pct 0.2 % [facility] Comment: Interpretive Data Percent cell count reference ranges are not reported, since discordance with absolute values may lead to misinterpretation of CBC data. Current Interpretive Data was last revised on 2017. Blood specimen (specimen) 08/29/2020 5:02 AM DOCENT COORDINATOR 08/29/2020 5:18 AM DOCENT COORDINATOR us Glenn Thrasher MD LAB BLOOD ORDERABLES Final Re sult [facility] [place] [address] * (ABNORMAL) Vitamin D 25 hydroxy (08/29/2020 5:02 AM DOCENT COORDINATOR) Vitamin D 25-OH 24(L) 30 - 80 ng/mL [facility] Blood specimen (specimen) 08/29/2020 5:02 AM DOCENT COORDINATOR 08/29/2020 5:10 AM DOCENT COORDINATOR us Tai Gutierrez MD LAB BLOOD ORDERABLES Fi nal Result [facility] [place] [address] * Phosphorus (08/29/2020 5:02 AM DOCENT COORDINATOR) [facility] Phosphorus, pl 3.4 2.3 - 4.5 mg/dL [facility] Blood specimen (specimen) 08/29/2020 5:02 AM DOCENT COORDINATOR 08/29/2020 5:10 AM DOCENT COORDINATOR Glenn Thrasher MD LAB BLOOD ORDERABLES Final Re sult Performing Organization Address City/[facility]/ZIP Co de Phone Number [facility] [place] [address] * Magnesium (08/29/2020 5:02 AM DOCENT COORDINATOR) [facility] Magnesium 2.0 1.4 - 2.5 mg/dL [facility] Blood specimen (specimen) 08/29/2020 5:02 AM DOCENT COORDINATOR 08/29/2020 5:10 AM DOCENT COORDINATOR Glenn Thrasher MD LAB BLOOD ORDERABLES Final Re sult [facility] [place] [address] * (ABNORMAL) Basic metabolic panel (08/29/2020 5:02 AM DOCENT COORDINATOR) [facility] Sodium 145 135 - 145 mmol/L [facility] Potassium, pl 3.9 3.3 - 4.9 mmol/L [facility] Chloride 100 97 - 110 mmol/L [facility] CO2 39(H) 22 - 32 mmol/L [facility] Anion gap 6 2 - 15 mmol/L [facility] BUN 17 8 - 25 mg/dL [facility] Creatinine 0.61 0.60 - 1.10 mg/dL [facility] Glucose 112 70 - 199 mg/dL [facility] Comment: Interpretive Data Fasting glucose >/= [...] 2017. Calcium 9.5 8.5 - 10.3 mg/dL [facility] Blood specimen (specimen) 08/29/2020 5:02 AM DOCENT COORDINATOR 08/29/2020 5:10 AM DOCENT COORDINATOR us Glenn Thrasher MD LAB BLOOD ORDERABLES Final Re sult [facility] [place] [address] * (ABNORMAL) CBC with auto differential (08/29/2020 5:02 AM DOCENT COORDINATOR) WBC 8.8 3.8 - 9.9 K/cumm [facility] Hgb 10.6(L) 11.9 - 15.5 g/dL [facility] Hct 36.3 35.6 - 45.5 % [facility] Plt 316 150 - 400 K/cumm [facility] MPV 9.5 9.1 - 12.3 fL [facility] RBC 4.49 3.90 - 5.20 M/cumm [facility] MCV 80.8(L) 81.3 - 96.4 fL [facility] MCH 23.6(L) 27.1 - 33.3 pg [facility] MCHC 29.2(L) 32.3 - 35.7 g/dL [facility] RDW CV 21.1(H) 11.1 - 14.9 % [facility] RDW SD 58.1(H) 35.7 - 48.1 fL [facility] NRBC abs 0.00 0.00 - 0.01 K/cumm [facility] Blood specimen (specimen) 08/29/2020 5:02 AM DOCENT COORDINATOR 08/29/2020 5:18 AM DOCENT COORDINATOR us Glenn Thrasher MD LAB BLOOD ORDERABLES Final Re sult [facility] [place] [address] * (ABNORMAL) Differential, auto (08/28/2020 4:35 AM DOCENT COORDINATOR) Neutrophil abs 8.3(H) 1.7 - 6.5 K/cumm [facility] Imm gran abs 0.1 0.0 - 0.1 K/cumm [facility] Lymphocyte abs 1.8 0.8 - 3.3 K/cumm [facility] Monocyte abs 1.2(H) 0.2 - 0.8 K/cumm [facility] Eosinophil abs 0.0 0.0 - 0.5 K/cumm [facility] Basophil abs 0.0 0.0 - 0.1 K/cumm [facility] Neutrophil pct 73.1 % [facility] Comment: Interpretive Data Percent cell count reference ranges are not reported, since discordance with absolute values may lead to misinterpretation of CBC data. Current Interpretive Data was last revised on 2017. Imm gran pct 0.6 % [facility] Comment: Interpretive Data Percent cell count reference ranges are not reported, since discordance with absolute values may lead to misinterpretation of CBC data. Current Interpretive Data was last revised on 2017. Lymphocyte pct 15.6 % [facility] Comment: Interpretive Data Percent cell count reference ranges are not reported, since discordance with absolute values may lead to misinterpretation of CBC data. Current Interpretive Data was last revised on 2017. Monocyte pct 10.4 % [facility] Comment: Interpretive Data Percent cell count reference ranges are not reported, since discordance with absolute values may lead to misinterpretation of CBC data. Current Interpretive Data was last revised on 2017. Eosinophil pct 0.1 % [facility] Comment: Interpretive Data Percent cell count reference ranges are not reported, since discordance with absolute values may lead to misinterpretation of CBC data. Current Interpretive Data was last revised on 2017. Basophil pct 0.2 % [facility] Comment: Interpretive Data Percent cell count reference ranges are not reported, since discordance with absolute values may lead to misinterpretation of CBC data. Current Interpretive Data was last revised on 2017. Blood specimen (specimen) 08/28/2020 4:35 AM DOCENT COORDINATOR 08/28/2020 4:53 AM DOCENT COORDINATOR us Glenn Thrasher MD LAB BLOOD ORDERABLES Final Re sult Performing Organization Address [facility] Co de Phone Number [facility] [place] [address] * Phosphorus (08/28/2020 4:35 AM DOCENT COORDINATOR) Phosphorus, pl 3.4 2.3 - 4.5 mg/dL [facility] Blood specimen (specimen) 08/28/2020 4:35 AM DOCENT COORDINATOR 08/28/2020 4:53 AM DOCENT COORDINATOR us Glenn Thrasher MD LAB BLOOD ORDERABLES Final Re sult Performing Organization Address [facility] Co de Phone Number [facility] [place] [address] * Magnesium (08/28/2020 4:35 AM DOCENT COORDINATOR) Magnesium 1.9 1.4 - 2.5 mg/dL [facility] Blood specimen (specimen) 08/28/2020 4:35 AM DOCENT COORDINATOR 08/28/2020 4:53 AM DOCENT COORDINATOR us Glenn Thrasher MD LAB BLOOD ORDERABLES Final Re sult Performing Organization Address City/[facility] Co de Phone Number [facility] [place] [address] * (ABNORMAL) Basic metabolic panel (08/28/2020 4:35 AM DOCENT COORDINATOR) Pathologist [facility] Sodium 142 135 - 145 mmol/L [facility] Potassium, pl 2.9(L) 3.3 - 4.9 mmol/L [facility] Chloride 98 97 - 110 mmol/L [facility] CO2 36(H) 22 - 32 mmol/L [facility] Anion gap 8 2 - 15 mmol/L [facility] BUN 16 8 - 25 mg/dL [facility] Creatinine 0.64 0.60 - 1.10 mg/dL [facility] Glucose 177 70 - 199 mg/dL [facility] Comment: Interpretive Data Fasting glucose >/= [...] 2017. Calcium 9.4 8.5 - 10.3 mg/dL [facility] Blood specimen (specimen) 08/28/2020 4:35 AM DOCENT COORDINATOR 08/28/2020 4:53 AM DOCENT COORDINATOR us Glenn Thrasher MD LAB BLOOD ORDERABLES Final Re sult [facility] [place] [address] * (ABNORMAL) CBC with auto differential (08/28/2020 4:35 AM DOCENT COORDINATOR) Pathologist [facility] WBC 11.4(H) 3.8 - 9.9 K/cumm [facility] Hgb 10.9(L) 11.9 - 15.5 g/dL [facility] Hct 37.4 35.6 - 45.5 % [facility] Plt 325 150 - 400 K/cumm [facility] MPV 9.8 9.1 - 12.3 fL [facility] RBC 4.73 3.90 - 5.20 M/cumm [facility] MCV 79.1(L) 81.3 - 96.4 fL [facility] MCH 23.0(L) 27.1 - 33.3 pg [facility] MCHC 29.1(L) 32.3 - 35.7 g/dL [facility] RDW CV 20.7(H) 11.1 - 14.9 % [facility] RDW SD 55.2(H) 35.7 - 48.1 fL [facility] NRBC abs 0.00 0.00 - 0.01 K/cumm [facility] Blood specimen (specimen) 08/28/2020 4:35 AM DOCENT COORDINATOR 08/28/2020 4:53 AM DOCENT COORDINATOR Glenn Thrasher MD LAB BLOOD ORDERABLES Final Re sult [facility] [place] [address] * (ABNORMAL) Blood gas, venous (08/27/2020 10:01 AM DOCENT COORDINATOR) pH, Venous 7.36 7.32 - 7.43 [facility] PCO2, Venous 59(H) 40 - 50 mmHg [facility] PO2, Venous 54 mmHg [facility] Comment: Interpretive Data No Reference Range Established Current Interpretive Data was last revised on 2017. HCO3 Venous, Calculated 34(H) 20 - 30 mmol/L [facility] BE, venous 6 mmol/L [facility] Comment: Interpretive Data No Reference Range Established Current Interpretive Data was last revised on 2017. Blood specimen (specimen) 08/27/2020 10:01 AM DOCENT COORDINATOR 08/27/2020 10:09 AM DOCENT COORDINATOR Glenn Thrasher MD LAB BLOOD ORDERABLES Final Re sult [facility] [place] [address] * (ABNORMAL) Differential, auto (08/26/2020 8:43 PM DOCENT COORDINATOR) Neutrophil abs 7.9(H) 1.7 - 6.5 K/cumm [facility] Imm gran abs 0.1 0.0 - 0.1 K/cumm [facility] Lymphocyte abs 0.8 0.8 - 3.3 K/cumm [facility] Monocyte abs 0.7 0.2 - 0.8 K/cumm [facility] Eosinophil abs 0.0 0.0 - 0.5 K/cumm [facility] Basophil abs 0.0 0.0 - 0.1 K/cumm [facility] Neutrophil pct 84.1 % [facility] Comment: Interpretive Data Percent cell count reference ranges are not reported, since discordance with absolute values may lead to misinterpretation of CBC data. Current Interpretive Data was last revised on 2017. Imm gran pct 0.5 % [facility] Comment: Interpretive Data Percent cell count reference ranges are not reported, since discordance with absolute values may lead to misinterpretation of CBC data. Current Interpretive Data was last revised on 2017. Lymphocyte pct 8.3 % [facility] Comment: Interpretive Data Percent cell count reference ranges are not reported, since discordance with absolute values may lead to misinterpretation of CBC data. Current Interpretive Data was last revised on 2017. Monocyte pct 7.0 % [facility] Comment: Interpretive Data Percent cell count reference ranges are not reported, since discordance with absolute values may lead to misinterpretation of CBC data. Current Interpretive Data was last revised on 2017. Eosinophil pct 0.0 % [facility] Comment: Interpretive Data Percent cell count reference ranges are not reported, since discordance with absolute values may lead to misinterpretation of CBC data. Current Interpretive Data was last revised on 2017. Basophil pct 0.1 % [facility] Comment: Interpretive Data Percent cell count reference ranges are not reported, since discordance with absolute values may lead to misinterpretation of CBC data. Current Interpretive Data was last revised on 2017. Blood specimen (specimen) 08/26/2020 8:43 PM DOCENT COORDINATOR 08/26/2020 9:12 PM DOCENT COORDINATOR Glenn Thrasher MD LAB BLOOD ORDERABLES Final Re sult Performing Organization Address [facility] Co de Phone Number [facility] [place] [address] * Phosphorus (08/26/2020 8:43 PM DOCENT COORDINATOR) Phosphorus, pl 3.9 2.3 - 4.5 mg/dL [facility] Blood specimen (specimen) 08/26/2020 8:43 PM DOCENT COORDINATOR 08/26/2020 9:11 PM DOCENT COORDINATOR Glenn Thrasher MD LAB BLOOD ORDERABLES Final Re sult Performing Organization Address [facility] Co de Phone Number [facility] [place] [address] * Magnesium (08/26/2020 8:43 PM DOCENT COORDINATOR) Pathologist [facility] Magnesium 2.1 1.4 - 2.5 mg/dL [facility] Blood specimen (specimen) 08/26/2020 8:43 PM DOCENT COORDINATOR 08/26/2020 9:11 PM DOCENT COORDINATOR Glenn Thrasher MD LAB BLOOD ORDERABLES Final Re sult Performing Organization Address [facility] [place] [address] * (ABNORMAL) Basic metabolic panel (08/26/2020 8:43 PM DOCENT COORDINATOR) Sodium 140 135 - 145 mmol/L [facility] Potassium, pl 4.2 3.3 - 4.9 mmol/L [facility] Chloride 98 97 - 110 mmol/L [facility] CO2 33(H) 22 - 32 mmol/L [facility] Anion gap 9 2 - 15 mmol/L [facility] BUN 14 8 - 25 mg/dL [facility] Creatinine 0.46(L) 0.60 - 1.10 mg/dL [facility] Glucose 110 70 - 199 mg/dL [facility] Comment: Interpretive Data Fasting glucose >/= [...] 2017. Calcium 9.5 8.5 - 10.3 mg/dL [facility] Blood specimen (specimen) 08/26/2020 8:43 PM DOCENT COORDINATOR 08/26/2020 9:11 PM DOCENT COORDINATOR us Glenn Thrasher MD LAB BLOOD ORDERABLES Final Re sult [facility] [place] [address] * (ABNORMAL) CBC with auto differential (08/26/2020 8:43 PM DOCENT COORDINATOR) Pathologist [facility] WBC 9.4 3.8 - 9.9 K/cumm [facility] Hgb 10.3(L) 11.9 - 15.5 g/dL [facility] Hct 34.9(L) 35.6 - 45.5 % [facility] Plt 254 150 - 400 K/cumm [facility] MPV 10.6 9.1 - 12.3 fL [facility] RBC 4.49 3.90 - 5.20 M/cumm [facility] MCV 77.7(L) 81.3 - 96.4 fL [facility] MCH 22.9(L) 27.1 - 33.3 pg [facility] MCHC 29.5(L) 32.3 - 35.7 g/dL [facility] RDW CV 19.4(H) 11.1 - 14.9 % [facility] RDW SD 53.1(H) 35.7 - 48.1 fL [facility] NRBC abs 0.00 0.00 - 0.01 K/cumm [facility] Blood specimen (specimen) 08/26/2020 8:43 PM DOCENT COORDINATOR 08/26/2020 9:12 PM DOCENT COORDINATOR us Glenn Thrasher MD LAB BLOOD ORDERABLES Final Re sult Performing Organization Address [facility] Co de Phone Number [facility] [place] [address] * Type and screen (08/26/2020 8:43 PM DOCENT COORDINATOR) Pathologist [facility] Sheng, indirect Negative [facility] ABO Rh A Positive [facility] Blood specimen (specimen) 08/26/2020 8:43 PM DOCENT COORDINATOR 08/26/2020 9:09 PM DOCENT COORDINATOR Narrative [facility] - 08/26/2020 10:23 PM DOCENT COORDINATOR Has the patient had Daratumumab or Isatuximab in the past 6 months?->Unknown us Aimee Conroy MD LAB BLOOD BANK TEST O RDERABLES Final Result Performing Organization Address City/[facility]/ZIP Co de Phone Number [facility] [place] [address] * Blood gas, venous (08/26/2020 8:43 PM DOCENT COORDINATOR) Pathologist [facility] pH, Venous See Comment 7.32 - 7.43 [facility] Comment: Credited, specimen clotted. Telephone report made to: Debby Mayer RN on 08/26/2020 21:29:44 DOCENT COORDINATOR by charly irby . PCO2, Venous See Comment 40 - 50 mmHg [facility] Comment: Credited, specimen clotted. Telephone report made to: Debby Mayer RN on 08/26/2020 21:29:44 DOCENT COORDINATOR by charly irby . PO2, Venous See Comment [facility] Comment: Credited, specimen clotted. Telephone report made to: Debby Mayer RN on 08/26/2020 21:29:44 DOCENT COORDINATOR by charly irby Interpretive Data No Reference Range Established Current Interpretive Data was last revised on 2017. HCO3 Venous, Calculated See Comment 20 - 30 [facility] Comment: Credited, specimen clotted. Telephone report made to: Debby Mayer RN on 08/26/2020 21:29:44 DOCENT COORDINATOR by charly irby BE, venous See Comment [facility] Comment: Credited, specimen clotted. Telephone report made to: Debby Mayer RN on 08/26/2020 21:29:44 DOCENT COORDINATOR by charly irby Interpretive Data No Reference Range Established Current Interpretive Data was last revised on 2017. Blood specimen (specimen) 08/26/2020 8:43 PM DOCENT COORDINATOR 08/26/2020 9:04 PM DOCENT COORDINATOR us Glenn Thrasher MD LAB BLOOD ORDERABLES Edited R esult - Final [facility] [place] [address] * (ABNORMAL) Differential, auto (08/26/2020 12:18 AM DOCENT COORDINATOR) Neutrophil abs 7.5(H) 1.7 - 6.5 K/cumm [facility] Imm gran abs 0.1 0.0 - 0.1 K/cumm [facility] Lymphocyte abs 1.6 0.8 - 3.3 K/cumm [facility] Monocyte abs 1.1(H) 0.2 - 0.8 K/cumm [facility] Eosinophil abs 0.0 0.0 - 0.5 K/cumm [facility] Basophil abs 0.0 0.0 - 0.1 K/cumm [facility] Neutrophil pct 73.0 % [facility] Comment: Interpretive Data Percent cell count reference ranges are not reported, since discordance with absolute values may lead to misinterpretation of CBC data. Current Interpretive Data was last revised on 2017. Imm gran pct 0.7 % [facility] Comment: Interpretive Data Percent cell count reference ranges are not reported, since discordance with absolute values may lead to misinterpretation of CBC data. Current Interpretive Data was last revised on 2017. Lymphocyte pct 15.8 % [facility] Comment: Interpretive Data Percent cell count reference ranges are not reported, since discordance with absolute values may lead to misinterpretation of CBC data. Current Interpretive Data was last revised on 2017. Monocyte pct 10.3 % [facility] Comment: Interpretive Data Percent cell count reference ranges are not reported, since discordance with absolute values may lead to misinterpretation of CBC data. Current Interpretive Data was last revised on 2017. Eosinophil pct 0.0 % [facility] Comment: Interpretive Data Percent cell count reference ranges are not reported, since discordance with absolute values may lead to misinterpretation of CBC data. Current Interpretive Data was last revised on 2017. Basophil pct 0.2 % [facility] Comment: Interpretive Data Percent cell count reference ranges are not reported, since discordance with absolute values may lead to misinterpretation of CBC data. Current Interpretive Data was last revised on 2017. Blood specimen (specimen) 08/26/2020 12:18 AM DOCENT COORDINATOR 08/26/2020 12:34 AM DOCENT COORDINATOR us Glenn Thrasher MD LAB BLOOD ORDERABLES Final Re sult [facility] [place] [address] * Phosphorus (08/26/2020 12:18 AM DOCENT COORDINATOR) Phosphorus, pl 3.5 2.3 - 4.5 mg/dL [facility] Blood specimen (specimen) 08/26/2020 12:18 AM DOCENT COORDINATOR 08/26/2020 12:34 AM DOCENT COORDINATOR us Glenn Thrasher MD LAB BLOOD ORDERABLES Final Re sult Performing Organization Address City/[facility]/ZIP Co de Phone Number [facility] [place] [address] * Magnesium (08/26/2020 12:18 AM DOCENT COORDINATOR) Pathologist [facility] Magnesium 1.9 1.4 - 2.5 mg/dL [facility] Blood specimen (specimen) 08/26/2020 12:18 AM DOCENT COORDINATOR 08/26/2020 12:34 AM DOCENT COORDINATOR us Glenn Thrasher MD LAB BLOOD ORDERABLES Final Re sult Performing Organization Address [facility] de Phone Number [facility] [place] [address] * (ABNORMAL) Basic metabolic panel (08/26/2020 12:18 AM DOCENT COORDINATOR) Pathologist [facility] Sodium 144 135 - 145 mmol/L [facility] Potassium, pl 3.1(L) 3.3 - 4.9 mmol/L [facility] Chloride 100 97 - 110 mmol/L [facility] Comment:Repeated and Verifie d CO2 37(H) 22 - 32 mmol/L [facility] Anion gap 7 2 - 15 mmol/L [facility] BUN 17 8 - 25 mg/dL [facility] Creatinine 0.51(L) 0.60 - 1.10 mg/dL [facility] Glucose 104 70 - 199 mg/dL [facility] Comment: Interpretive Data Fasting glucose >/= [...] interpretive data was last revised 2017. Calcium 9.0 8.5 - 10.3 mg/dL [facility] Blood specimen (specimen) 08/26/2020 12:18 AM DOCENT COORDINATOR 08/26/2020 12:34 AM DOCENT COORDINATOR Glenn Thrasher MD LAB BLOOD ORDERABLES Final Re sult [facility] [place] [address] * (ABNORMAL) CBC with auto differential (08/26/2020 12:18 AM DOCENT COORDINATOR) WBC 10.3(H) 3.8 - 9.9 K/cumm [facility] Hgb 8.8(L) 11.9 - 15.5 g/dL [facility] Hct 29.7(L) 35.6 - 45.5 % [facility] Plt 236 150 - 400 K/cumm [facility] MPV 9.8 9.1 - 12.3 fL [facility] RBC 3.88(L) 3.90 - 5.20 M/cumm [facility] MCV 76.5(L) 81.3 - 96.4 fL [facility] MCH 22.7(L) 27.1 - 33.3 pg [facility] MCHC 29.6(L) 32.3 - 35.7 g/dL [facility] RDW CV 18.4(H) 11.1 - 14.9 % [facility] RDW SD 50.7(H) 35.7 - 48.1 fL [facility] NRBC abs 0.00 0.00 - 0.01 K/cumm [facility] Blood specimen (specimen) 08/26/2020 12:18 AM DOCENT COORDINATOR 08/26/2020 12:34 AM DOCENT COORDINATOR Glenn Thrasher MD LAB BLOOD ORDERABLES Final Re sult Performing Organization Address City/[facility] de Phone Number [facility] [place] [address] * (ABNORMAL) Blood gas, venous (08/26/2020 12:18 AM DOCENT COORDINATOR) pH, Venous 7.43 7.32 - 7.43 [facility] PCO2, Venous 54(H) 40 - 50 [facility] PO[facility], Venous 128 mmHg [facility] Comment: Interpretive Data No Reference Range Established Current Interpretive Data was last revised on 2017. HCO3 Venous, Calculated 36(H) 20 - 30 mmol/L [facility] BE, venous 9 mmol/L [facility] Comment: Interpretive Data No Reference Range Established Current Interpretive Data was last revised on 2017. Blood specimen (specimen) 08/26/2020 12:18 AM DOCENT COORDINATOR 08/26/2020 12:31 AM DOCENT COORDINATOR us Glenn Thrasher MD LAB BLOOD ORDERABLES Final Re sult Performing Organization Address [facility] de Phone Number [facility] [place] [address] * XR Chest 1 View (08/25/2020 10:59 PM DOCENT COORDINATOR) Anatomical Region Laterality Modality Body, Chest N/A Computed Radiogr aphy 08/26/2020 10:5 5 AM DOCENT COORDINATOR Impressions 08/26/2020 1:02 PM DOCENT COORDINATOR 1. ??Chest radiograph 08/25/2020 at 8:01 PM compared to 08/24/2020. An endotracheal tube is noted, the tricia is difficult to visualize. An esophagogastric tube courses caudally below the diaphragm and terminates below [id number]. The cardiomediastinal contours are within stable. There is bilateral basilar atelectasis. ??No pneumothorax. No pleural effusion. 2. ??Chest radiograph 08/25/2020 at 10:18 PM The endotracheal tube is approximately 2.5 cm above the tricia. ??An esophagogastric tube tip is peripyloric and side-port is in the gastric body. ??The cardiomediastinal contours are unchanged. ??There is atherosclerotic calcification of the aortic knob. ??There is mild right basilar atelectasis. ??No pleural effusion. ??No pneumothorax. Dictated by: Eleazar Avina M.D. The radiology attending physician has personally reviewed this study, and had reviewed and/or edited this written report and agrees with it. Electronically signed by: Favian Mcmahan M.D. Narrative 08/26/2020 1:02 PM DOCENT COORDINATOR EXAMINATION: 1. ??1 view chest radiograph 2. ??1 view chest radiograph Procedure Note Favian Mcmahan MD - 08/26/2020 EXAMINATION: 1. 1 view chest radiograph 2. 1 view chest radiograph IMPRESSION: 1. Chest radiograph 08/25/2020 at 8:01 PM compared to 08/24/2020. An endotracheal tube is noted, the tricia is difficult to visualize. An esophagogastric tube courses caudally below the diaphragm and terminates below [id number]. The cardiomediastinal contours are within stable. There is bilateral basilar atelectasis. No pneumothorax. No pleural effusion. 2. Chest radiograph 08/25/2020 at 10:18 PM The endotracheal tube is approximately 2.5 cm above the tricia. An esophagogastric tube tip is peripyloric and side-port is in the gastric body. The cardiomediastinal contours are unchanged. There is atherosclerotic calcification of the aortic knob. There is mild right basilar atelectasis. No pleural effusion. No pneumothorax. Dictated by: Eleazar Avina M.D. The radiology attending physician has personally reviewed this study, and had reviewed and/or edited this written report and agrees with it. Electronically signed by: Favian Mcmahan M.D. us Glenn Thrasher MD IMG XR PROCEDURES Final Resul t * XR Abdomen Ap 1 Vw (08/25/2020 8:30 PM DOCENT COORDINATOR) Anatomical Region Laterality Modality Body, Abdomen N/A Computed Radiogr aphy 08/26/2020 9:50 AM DOCENT COORDINATOR Impressions 08/26/2020 10:58 AM DOCENT COORDINATOR A single view of the abdomen is submitted for evaluation. Distal tip and side-port of the gastric tube are within the gastric body. ??Temperature probe Guerrero catheter within the urinary bladder. Visualized loops of bowel are nondilated. ??Radiopaque object overlies the left greater trochanter likely external to patient. Dictated by: Jono Garnett M.D. The radiology attending physician has personally reviewed this study, and had reviewed and/or edited this written report and agrees with it. Electronically signed by: Lakia Kenny M.D. Narrative 08/26/2020 10:58 AM DOCENT COORDINATOR EXAMINATION: Abdomen, one view. HISTORY: Check tube placement. COMPARISON: 08/23/2020 Procedure Note Lakia Kenny MD - 08/26/2020 EXAMINATION: Abdomen, one view. HISTORY: Check tube placement. COMPARISON: 08/23/2020 IMPRESSION: A single view of the abdomen is submitted for evaluation. Distal tip and side-port of the gastric tube are within the gastric body. Temperature probe Geurrero catheter within the urinary bladder. Visualized loops of bowel are nondilated. Radiopaque object overlies the left greater trochanter likely external to patient. Dictated by: Jono Garnett M.D. The radiology attending physician has personally reviewed this study, and had reviewed and/or edited this written report and agrees with it. Electronically signed by: Lakia Kenny M.D. us Madeline Ford MD IMG XR PROCEDURES Sandra l Result * XR Chest 1 View (Portable) (08/25/2020 8:30 PM DOCENT COORDINATOR) Anatomical Region Laterality Modality Body, Chest N/A Computed Radiogr aphy 08/26/2020 10:5 5 AM DOCENT COORDINATOR Impressions 08/26/2020 1:02 PM DOCENT COORDINATOR 1. ??Chest radiograph 08/25/2020 at 8:01 PM compared to 08/24/2020. An endotracheal tube is noted, the tricia is difficult to visualize. An esophagogastric tube courses caudally below the diaphragm and terminates below [id number]. The cardiomediastinal contours are within stable. There is bilateral basilar atelectasis. ??No pneumothorax. No pleural effusion. 2. ??Chest radiograph 08/25/2020 at 10:18 PM The endotracheal tube is approximately 2.5 cm above the tircia. ??An esophagogastric tube tip is peripyloric and side-port is in the gastric body. ??The cardiomediastinal contours are unchanged. ??There is atherosclerotic calcification of the aortic knob. ??There is mild right basilar atelectasis. ??No pleural effusion. ??No pneumothorax. Dictated by: Eleazar Avina M.D. The radiology attending physician has personally reviewed this study, and had reviewed and/or edited this written report and agrees with it. Electronically signed by: Favian Mcmahan M.D. Narrative 08/26/2020 1:02 PM DOCENT COORDINATOR EXAMINATION: 1. ??1 view chest radiograph 2. ??1 view chest radiograph Procedure Note Favian Mcmahan MD - 08/26/2020 EXAMINATION: 1. 1 view chest radiograph 2. 1 view chest radiograph IMPRESSION: 1. Chest radiograph 08/25/2020 at 8:01 PM compared to 08/24/2020. An endotracheal tube is noted, the tricia is difficult to visualize. An esophagogastric tube courses caudally below the diaphragm and terminates below [id number]. The cardiomediastinal contours are within stable. There is bilateral basilar atelectasis. No pneumothorax. No pleural effusion. 2. Chest radiograph 08/25/2020 at 10:18 PM The endotracheal tube is approximately 2.5 cm above the tricia. An esophagogastric tube tip is peripyloric and side-port is in the gastric body. The cardiomediastinal contours are unchanged. There is atherosclerotic calcification of the aortic knob. There is mild right basilar atelectasis. No pleural effusion. No pneumothorax. Dictated by: Eleazar Avina M.D. The radiology attending physician has personally reviewed this study, and had reviewed and/or edited this written report and agrees with it. Electronically signed by: Favian Mcmahan M.D. us Aimee Conroy MD IMG XR PROCEDURES Fin al Result * TRANSTHORACIC ECHO (TTE) COMPLETE W DOPPLER/CF W CONTRAST (08/25/2020 11:45 AM DOCENT COORDINATOR) Anatomical Region Laterality Modality Ultrasound 08/25/2020 7:30 AM DOCENT COORDINATOR Narrative 08/25/2020 1:31 PM DOCENT COORDINATOR Patient name: Phoebe Hillman Date of test: 08/25/2020 Type of test: TTE w/Doppler [facility] #: [id number] Date of : 1940 (F) Insole Presser: Kelle Prince RDCS Referring Physician: GLENN THRASHER MD Contrast Agent: 1.1 ml Optison Administered, (1.9 ml wasted). Contrast Administered by: Supervised/Interpreted by: Eusebio Kirby MD Diagnosis: Location: [facility] Reason for test: s/p stroke MV Structure: Normal, ?MV Motion: Normal, ?? Mitral Annulus: mildly calcified AV Structure: tricuspid and is moderately thickened, ?? AV Motion: minimally restricted Aotic root: atherosclerotic, ?TM: Normal, ?? PV: Normal Valvular Vegetations: none seen, ?Mass/Thrombi: none seen RA: Normal Measurements: ?M-Mode ?Normal ? Aotic Root: ? <3.8 ? LA: ? <3.8 ? RV: ? <2.8 ? LV(ED): ? <5.7 ? LV(ES): ? Variable ?2D Linear Normal ? Aotic Root: 3.3 cm ?<3.6 ? Ao Indexed: 1.9 cm/M2 <2.0 ? LA: ? <3.8 ? RV: ? 4.0 cm ?<4.2 ? LV(ED): ? 4.5 cm ?<5.3 ? LV(ES): ? 2.9 cm ?<3.5 ?2D Vol. ?? Normal ?Indexed ?? Indexed Normal RA: ? 59.0 ml ? 34.1 ml/M2 ?9-33 ? LA: ? 75.0 ml ? 43.3 ml/M2 ?16-34 ? RV: ? <11.6 ? LV(ED): ? 101.0 ml ??46-106 ?58.4 ml/M2 ?<62 ? LV(ES): ? 35.0 ml ?? 14-42 ? 20.2 ml/M2 ?<25 ?3D Vol. ? Indexed Normal LV(ED): ?<62 ? LV(ES): ?<24 ? LV EF: 65 % ?? (Normal: >=54%) ?? LV Septum: 1.2 cm ?(Normal: <0.9 cm) Wall Motion Scoring (1=Normal 2=Hypo 3=Akinetic 4=Dyskin./Aneurysm 0=Not visualized) Parasternal [place]:MAS=1 BAS=1 MIL=1 DENNISE=1 Parasternal [place]:MAS=1 MIS=1 [place]=1 MIL=1 MAL=1 MA=1 Apical 4 Chambers:=1 MIS=1 BIS=1 BAL=1 MAL=1 AL=1 AC=1 Apical 2 Chambers:AI=1 [place]=1 BI=1 BA=1 MA=1 AA=1 AC=1 LV Global Longitudinal Strain: RV Global Longitudinal Strain: -27.9% ??(Normal <-17%) LV Function: Normal LV Ejection Fraction, ??(EF=54-74%) RV Function: Normal Septal Motion: Normal Pericardial Effusion: none seen Atrial Septum: Normal DOPPLER/COLOR FLOW DOPPLER RESULTS: Diastolic Function: Grade I-II, increased mean LA pres. Tricuspid Valve: mild TV regurgitation Pulmonic Valve: normal PV AV Regurgitation: No AR seen AV Stenosis: no AV Area: ??cm2 AV Pressure Gradient (mmHg): Mean: 0, Peak:0 MV Regurgitation: Mild MR MV Stenosis: no MS MV Area: ??cm2 MV Pressure Gradient (mmHg): Mean: 0 MV ERO: ??cm Regurg. Vol.: ??ml/beat Regurg. Frac.: ??% PA Pressure: 45-50 mmHg DOPPLER/COLOR FOLOW DOPPLER COMMENTS: No AR seen, Mild MR, no , no MS, mild TV regurgitation, normal PV. Diastolic function: Grade I-II, increased mean LA pres. CONTRAST: 1.1 ml Optison Administered, (1.9 ml wasted). SUMMARY: Normal LV size with mild LVH, normal LV systolic function, LVEF 65%, and grade I-II diastolic dysfunction with mildly increased est. LV filling pressure. ??LV strain not assessed. ??Normal RV size and systolic function with normal RV strain. ??Atherosclerotic aortic root. ??Moderate LAE and mild JC. ??Dilated IVC with diminished inspiratory collapse. ??Moderately thickened AV without c/w aortic valve sclerosis. ??Mild MR and TR. ??Est. PASP 45-50 mm Hg, assuming an RA pressure of 12 mm Hg. ??No thrombus or vegetations seen. ?? Confirmed on ??08/25/2020 - 13:31:10 by Eusebio Kirby MD By signing this report, the attending mix crusher operator certifies that he or she has personally supervised and interpreted the echocardiogram and has reviewed and or edited and agrees with the written comments contained within the report. Procedure Note Eusebio Kirby MD - 08/25/2020 Patient name: Phoebe Hillman Date of test: 08/25/2020 Type of test: [facility] #: [id number] Date of : 1940 (F) Insole Presser: Kelle Prince RDCS Referring Physician: GLENN THRASHER MD Contrast Agent: 1.1 ml Optison Administered, (1.9 ml wasted). Contrast Administered by: Supervised/Interpreted by: Eusebio Kirby MD Diagnosis: Location: [facility] Reason for test: s/p stroke MV Structure: Normal, MV Motion: Normal, Mitral Annulus: mildly calcified AV Structure: tricuspid and is moderately thickened, AV Motion: minimally restricted Aotic root: atherosclerotic, TM: Normal, PV: Normal Valvular Vegetations: none seen, Mass/Thrombi: none seen RA: Normal Measurements: M-Mode Normal Aotic Root: <3.8 LA: <3.8 RV: <2.8 LV(ED): <5.7 LV(ES): Variable 2D Linear Normal Aotic Root: 3.3 cm <3.6 Ao Indexed: 1.9 cm/M2 <2.0 LA: <3.8 RV: 4.0 cm <4.2 LV(ED): 4.5 cm <5.3 LV(ES): 2.9 cm <3.5 2D Vol. Normal Indexed Indexed Normal RA: 59.0 ml 34.1 ml/M2 9-33 LA: 75.0 ml 43.3 ml/M2 16-34 RV: <11.6 LV(ED): 101.0 ml 46-106 58.4 ml/M2 <62 LV(ES): 35.0 ml 14-42 20.2 ml/M2 <25 3D Vol. Indexed Normal LV(ED): <62 LV(ES): <24 LV EF: 65 % (Normal: >=54%) LV Septum: 1.2 cm (Normal: <0.9 cm) Wall Motion Scoring (1=Normal 2=Hypo 3=Akinetic 4=Dyskin./Aneurysm 0=Not visualized) Parasternal [place]:MAS=1 BAS=1 MIL=1 DENNISE=1 Parasternal [place]:MAS=1 MIS=1 [place]=1 MIL=1 MAL=1 MA=1 Apical 4 Chambers:=1 MIS=1 BIS=1 BAL=1 MAL=1 AL=1 AC=1 Apical 2 Chambers:AI=1 [place]=1 BI=1 BA=1 MA=1 AA=1 AC=1 LV Global Longitudinal Strain: RV Global Longitudinal Strain: -27.9% (Normal <-17%) LV Function: Normal LV Ejection Fraction, (EF=54-74%) RV Function: Normal Septal Motion: Normal Pericardial Effusion: none seen Atrial Septum: Normal DOPPLER/COLOR FLOW DOPPLER RESULTS: Diastolic Function: Grade I-II, increased mean LA pres. Tricuspid Valve: mild TV regurgitation Pulmonic Valve: normal PV AV Regurgitation: No AR seen AV Stenosis: no AV Area: cm2 AV Pressure Gradient (mmHg): Mean: 0, Peak:0 MV Regurgitation: Mild MR MV Stenosis: no MS MV Area: cm2 MV Pressure Gradient (mmHg): Mean: 0 MV ERO: cm Regurg. Vol.: ml/beat Regurg. Frac.: % PA Pressure: 45-50 mmHg DOPPLER/COLOR FOLOW DOPPLER COMMENTS: No AR seen, Mild MR, no , no MS, mild TV regurgitation, normal PV. Diastolic function: Grade I-II, increased mean LA pres. CONTRAST: 1.1 ml [employer]ison Administered, (1.9 ml wasted). SUMMARY: Normal LV size with mild LVH, normal LV systolic function, LVEF 65%, and grade I-II diastolic dysfunction with mildly increased est. LV filling pressure. LV strain not assessed. Normal RV size and systolic function with normal RV strain. Atherosclerotic aortic root. Moderate LAE and mild JC. Dilated IVC with diminished inspiratory collapse. Moderately thickened AV without c/w aortic valve sclerosis. Mild MR and TR. Est. PASP 45-50 mm Hg, assuming an RA pressure of 12 mm Hg. No thrombus or vegetations seen. Confirmed on 08/25/2020 - 13:31:10 by Eusebio Kirby MD By signing this report, the attending mix crusher operator certifies that he or she has personally supervised and interpreted the echocardiogram and has reviewed and or edited and agrees with the written comments contained within the report. us Glenn Thrasher MD CV ECHO PROCEDURES Final Resu lt * Differential, auto (08/25/2020 12:39 AM DOCENT COORDINATOR) Neutrophil abs 6.2 1.7 - 6.5 K/cumm [facility] Imm gran abs 0.0 0.0 - 0.1 K/cumm [facility] Lymphocyte abs 1.3 0.8 - 3.3 K/cumm [facility] Monocyte abs 0.8 0.2 - 0.8 K/cumm [facility] Eosinophil abs 0.0 0.0 - 0.5 K/cumm [facility] Basophil abs 0.0 0.0 - 0.1 K/cumm [facility] Neutrophil pct 73.9 % [facility] Comment: Interpretive Data Percent cell count reference ranges are not reported, since discordance with absolute values may lead to misinterpretation of CBC data. Current Interpretive Data was last revised on 2017. Imm gran pct 0.5 % [facility] Comment: Interpretive Data Percent cell count reference ranges are not reported, since discordance with absolute values may lead to misinterpretation of CBC data. Current Interpretive Data was last revised on 2017. Lymphocyte pct 15.7 % [facility] Comment: Interpretive Data Percent cell count reference ranges are not reported, since discordance with absolute values may lead to misinterpretation of CBC data. Current Interpretive Data was last revised on 2017. Monocyte pct 9.7 % [facility] Comment: Interpretive Data Percent cell count reference ranges are not reported, since discordance with absolute values may lead to misinterpretation of CBC data. Current Interpretive Data was last revised on 2017. Eosinophil pct 0.1 % [facility] Comment: Interpretive Data Percent cell count reference ranges are not reported, since discordance with absolute values may lead to misinterpretation of CBC data. Current Interpretive Data was last revised on 2017. Basophil pct 0.1 % [facility] Comment: Interpretive Data Percent cell count reference ranges are not reported, since discordance with absolute values may lead to misinterpretation of CBC data. Current Interpretive Data was last revised on 2017. Blood specimen (specimen) 08/25/2020 12:39 AM DOCENT COORDINATOR 08/25/2020 12:53 AM DOCENT COORDINATOR Glenn Thrasher MD LAB BLOOD ORDERABLES Final Re sult [facility] [place] [address] * (ABNORMAL) Blood gas, venous (08/25/2020 12:39 AM DOCENT COORDINATOR) [facility] pH, Venous 7.44(H) 7.32 - 7.43 [facility] PCO2, Venous 53(H) 40 - 50 mmHg [facility] PO2, Venous 168 mmHg [facility] Comment: reviewed Interpretive Data No Reference Range Established Current Interpretive Data was last revised on 2017. HCO3 Venous, Calculated 37(H) 20 - 30 mmol/L [facility] BE, venous 10 mmol/L [facility] Comment: Interpretive Data No Reference Range Established Current Interpretive Data was last revised on 2017. Blood specimen (specimen) 08/25/2020 12:39 AM DOCENT COORDINATOR 08/25/2020 12:49 AM DOCENT COORDINATOR Glenn Thrasher MD LAB BLOOD ORDERABLES Final Re sult Performing Organization Address [facility] Co de Phone Number [facility] [place] [address] * Phosphorus (08/25/2020 12:39 AM DOCENT COORDINATOR) [facility] Phosphorus, pl 3.5 2.3 - 4.5 mg/dL [facility] Blood specimen (specimen) 08/25/2020 12:39 AM DOCENT COORDINATOR 08/25/2020 12:53 AM DOCENT COORDINATOR us Glenn Thrasher MD LAB BLOOD ORDERABLES Final Re sult Performing Organization Address City/[facility]/ZIP Co de Phone Number [facility] [place] [address] * Magnesium (08/25/2020 12:39 AM DOCENT COORDINATOR) Magnesium 2.0 1.4 - 2.5 mg/dL [facility] Blood specimen (specimen) 08/25/2020 12:39 AM DOCENT COORDINATOR 08/25/2020 12:53 AM DOCENT COORDINATOR us Glenn Thrasher MD LAB BLOOD ORDERABLES Final Re sult [facility] [place] [address] * (ABNORMAL) Basic metabolic panel (08/25/2020 12:39 AM DOCENT COORDINATOR) Pathologist [facility] Sodium 143 135 - 145 mmol/L [facility] Comment:Note corrected resul t. Notified Peggy To RN 8300 on 08/27/2020 10:15:38 DOCENT COORDINATOR by SG. Potassium, pl 3.7 3.3 - 4.9 mmol/L [facility] Chloride 103 97 - 110 mmol/L [facility] Comment:Note corrected resul t. Notified Peggy To RN 8300 on 08/27/2020 10:15:38 DOCENT COORDINATOR by SG. CO2 35(H) 22 - 32 mmol/L [facility] Anion gap 3 2 - 15 mmol/L [facility] Comment:Note corrected resul t. Notified Peggy To RN 8300 on 08/27/2020 10:15:38 DOCENT COORDINATOR by SG. BUN 22 8 - 25 mg/dL [facility] Creatinine 0.47(L) 0.60 - 1.10 mg/dL [facility] Glucose 119 70 - 199 mg/dL [facility] Comment: Interpretive Data Fasting glucose >/= [...] interpretive data was last revised 2017. Calcium 8.2(L) 8.5 - 10.3 mg/dL [facility] Blood specimen (specimen) 08/25/2020 12:39 AM DOCENT COORDINATOR 08/25/2020 12:53 AM DOCENT COORDINATOR Glenn Thrasher MD LAB BLOOD ORDERABLES Edited R esult - Final [facility] [place] [address] * (ABNORMAL) CBC with auto differential (08/25/2020 12:39 AM DOCENT COORDINATOR) WBC 8.4 3.8 - 9.9 K/cumm [facility] Hgb 8.2(L) 11.9 - 15.5 g/dL [facility] Hct 26.9(L) 35.6 - 45.5 % [facility] Plt 199 150 - 400 K/cumm [facility] MPV 10.4 9.1 - 12.3 fL [facility] RBC 3.46(L) 3.90 - 5.20 M/cumm [facility] MCV 77.7(L) 81.3 - 96.4 fL [facility] MCH 23.7(L) 27.1 - 33.3 pg [facility] MCHC 30.5(L) 32.3 - 35.7 g/dL [facility] RDW CV 18.1(H) 11.1 - 14.9 % [facility] RDW SD 50.4(H) 35.7 - 48.1 fL [facility] NRBC abs 0.00 0.00 - 0.01 K/cumm [facility] Blood specimen (specimen) 08/25/2020 12:39 AM DOCENT COORDINATOR 08/25/2020 12:53 AM DOCENT COORDINATOR Glenn Thrasher MD LAB BLOOD ORDERABLES Final Re sult [facility] [place] [address] * Transfuse RBC (08/24/2020 11:21 PM DOCENT COORDINATOR) Blood specimen (specimen) Glenn Thrasher MD BLOOD TRANSFUSION ORDERABLES Final Result Performing Organization Address [facility]/[place] [address] * Transfuse RBC: 1 Units (08/24/2020 11:21 PM DOCENT COORDINATOR) Blood specimen (specimen) Glenn Thrasher MD BLOOD TRANSFUSION ORDERABLES Final Result * Prepare RBC: 1 Units (08/24/2020 9:06 PM DOCENT COORDINATOR) Product code [id number] [facility] Unit Number [id number]- A [facility] Product Blood Type APOS [facility] Dispense Status PRESUMED TRANSFUSED [facility] Blood specimen (specimen) 08/24/2020 9:06 PM DOCENT COORDINATOR 08/24/2020 9:06 PM DOCENT COORDINATOR Narrative [facility] - 08/25/2020 4:00 AM DOCENT COORDINATOR Are special requirements needed? (all products are leukoreduced)->No Date required:-[id number] LRRBC # of [id number] Reasons:-Hgb <7 g/dL} Glenn Thrasher MD BLOOD BANK PRODUCT ORDERABLES Final Result Performing Organization Address City/[facility] [place] [address] * XR Chest 1 View (Portable) (08/24/2020 8:40 PM DOCENT COORDINATOR) Anatomical Region Laterality Modality Body, Chest N/A Computed Radiogr aphy 08/25/2020 9:53 AM DOCENT COORDINATOR Impressions 08/25/2020 9:53 AM DOCENT COORDINATOR The current study is compared with the prior radiograph dated ??08/23/2020. An endotracheal tube is approximately ??1 centimeters above the tricia. ?? A nasogastric tube extends below the hemidiaphragm. Unchanged small lung volumes. ??There has been interval improvement in right basilar atelectasis. ??Increased small left pleural effusion. There is no pneumothorax. The heart and mediastinal contours are normal. Dictated by: Reynold Brito M.D. The radiology attending physician has personally reviewed this study, and had reviewed and/or edited this written report and agrees with it. Electronically signed by: Grazyna Birmingham M.D. Narrative 08/25/2020 9:53 AM DOCENT COORDINATOR EXAMINATION: 1 view chest radiograph Procedure Note Grazyna Birmingham MD - 08/25/2020 EXAMINATION: 1 view chest radiograph IMPRESSION: The current study is compared with the prior radiograph dated 08/23/2020. An endotracheal tube is approximately 1 centimeters above the tricia. A nasogastric tube extends below the hemidiaphragm. Unchanged small lung volumes. There has been interval improvement in right basilar atelectasis. Increased small left pleural effusion. There is no pneumothorax. The heart and mediastinal contours are normal. Dictated by: Reynold Brito M.D. The radiology attending physician has personally reviewed this study, and had reviewed and/or edited this written report and agrees with it. Electronically signed by: Grazyna Birmingham M.D. Aimee Conroy MD IMG XR PROCEDURES Fin al Result * (ABNORMAL) Hemoglobin and hematocrit (08/24/2020 8:10 PM DOCENT COORDINATOR) [facility] Hgb 6.9(L) 11.9 - 15.5 g/dL [facility] Hct 24.0(L) 35.6 - 45.5 % [facility] Blood specimen (specimen) 08/24/2020 8:10 PM DOCENT COORDINATOR 08/24/2020 8:48 PM DOCENT COORDINATOR Glenn Thrasher MD LAB BLOOD ORDERABLES Final Re sult Performing Organization Address [facility]/ZIP Co de Phone Number [facility] [place] [address] * Ferritin (08/24/2020 5:37 PM DOCENT COORDINATOR) Ferritin 28 15 - 150 ng/mL [facility] Blood specimen (specimen) 08/24/2020 5:37 PM DOCENT COORDINATOR 08/24/2020 5:49 PM DOCENT COORDINATOR Glenn Thrasher MD LAB BLOOD ORDERABLES Final Re sult Performing Organization Address [facility] Co de Phone Number [facility] [place] [address] * (ABNORMAL) Iron profile w/ IBC (08/24/2020 5:37 PM DOCENT COORDINATOR) Iron 13(L) 35 - 145 mcg/dL [facility] TIBC 363 250 - 400 mcg/dL [facility] Transferrin saturation 4(L) 20 - 50 % [facility] Blood specimen (specimen) 08/24/2020 5:37 PM DOCENT COORDINATOR 08/24/2020 5:49 PM DOCENT COORDINATOR us Glenn Thrasher MD LAB BLOOD ORDERABLES Final Re sult Performing Organization Address [facility] Co de Phone Number [facility] [place] [address] * (ABNORMAL) Hemoglobin and hematocrit (08/24/2020 5:37 PM DOCENT COORDINATOR) Hgb 7.0(L) 11.9 - 15.5 g/dL [facility] Hct 24.2(L) 35.6 - 45.5 % [facility] Blood specimen (specimen) 08/24/2020 5:37 PM DOCENT COORDINATOR 08/24/2020 5:49 PM DOCENT COORDINATOR us Glenn Thrasher MD LAB BLOOD ORDERABLES Final Re sult Performing Organization Address [facility] Co de Phone Number [facility] [place] [address] * (ABNORMAL) Blood gas, venous (08/24/2020 3:37 PM DOCENT COORDINATOR) pH, Venous 7.39 7.32 - 7.43 [facility] PCO2, Venous 68(H) 40 - 50 mmHg [facility] PO2, Venous 62 mmHg [facility] Comment: Interpretive Data No Reference Range Established Current Interpretive Data was last revised on 2017. HCO3 Venous, Calculated 42(H) 20 - 30 mmol/L [facility] BE, venous 13 mmol/L [facility] Comment: Interpretive Data No Reference Range Established Current Interpretive Data was last revised on 2017. Blood specimen (specimen) 08/24/2020 3:37 PM DOCENT COORDINATOR 08/24/2020 3:45 PM DOCENT COORDINATOR Glenn Thrasher MD LAB BLOOD ORDERABLES Final Re sult Performing Organization Address [facility] Co de Phone Number [facility] [place] [address] * (ABNORMAL) Differential, auto (08/24/2020 6:58 AM DOCENT COORDINATOR) Pathologist [facility] Neutrophil abs 9.8(H) 1.7 - 6.5 K/cumm [facility] Imm gran abs 0.1 0.0 - 0.1 K/cumm [facility] Lymphocyte abs 0.8 0.8 - 3.3 K/cumm [facility] Monocyte abs 0.3 0.2 - 0.8 K/cumm [facility] Eosinophil abs 0.0 0.0 - 0.5 K/cumm [facility] Basophil abs 0.0 0.0 - 0.1 K/cumm [facility] Neutrophil pct 89.4 % [facility] Comment: Interpretive Data Percent cell count reference ranges are not reported, since discordance with absolute values may lead to misinterpretation of CBC data. Current Interpretive Data was last revised on 2017. Imm gran pct 0.5 % [facility] Comment: Interpretive Data Percent cell count reference ranges are not reported, since discordance with absolute values may lead to misinterpretation of CBC data. Current Interpretive Data was last revised on 2017. Lymphocyte pct 7.0 % [facility] Comment: Interpretive Data Percent cell count reference ranges are not reported, since discordance with absolute values may lead to misinterpretation of CBC data. Current Interpretive Data was last revised on 2017. Monocyte pct 3.0 % [facility] Comment: Interpretive Data Percent cell count reference ranges are not reported, since discordance with absolute values may lead to misinterpretation of CBC data. Current Interpretive Data was last revised on 2017. Eosinophil pct 0.0 % [facility] Comment: Interpretive Data Percent cell count reference ranges are not reported, since discordance with absolute values may lead to misinterpretation of CBC data. Current Interpretive Data was last revised on 2017. Basophil pct 0.1 % [facility] Comment: Interpretive Data Percent cell count reference ranges are not reported, since discordance with absolute values may lead to misinterpretation of CBC data. Current Interpretive Data was last revised on 2017. Blood specimen (specimen) 08/24/2020 6:58 AM DOCENT COORDINATOR 08/24/2020 7:23 AM DOCENT COORDINATOR us Glenn Thrasher MD LAB BLOOD ORDERABLES Final Re sult [facility] Department [place] [address] * (ABNORMAL) Phosphorus (08/24/2020 6:58 AM DOCENT COORDINATOR) Phosphorus, pl 2.2(L) 2.3 - 4.5 mg/dL [facility] Blood specimen (specimen) 08/24/2020 6:58 AM DOCENT COORDINATOR 08/24/2020 7:23 AM DOCENT COORDINATOR us Glenn Thrasher MD LAB BLOOD ORDERABLES Final Re sult Performing Organization Address City/[facility]/ZIP Co de Phone Number [facility] [place] [address] * Magnesium (08/24/2020 6:58 AM DOCENT COORDINATOR) Pathologist [facility] Magnesium 2.2 1.4 - 2.5 mg/dL [facility] Blood specimen (specimen) 08/24/2020 6:58 AM DOCENT COORDINATOR 08/24/2020 7:23 AM DOCENT COORDINATOR us Glenn Thrasher MD LAB BLOOD ORDERABLES Final Re sult Performing Organization Address [facility] Co de Phone Number [facility] [place] [address] * (ABNORMAL) Basic metabolic panel (08/24/2020 6:58 AM DOCENT COORDINATOR) Pathologist [facility] Sodium 144 135 - 145 mmol/L [facility] Potassium, pl 3.9 3.3 - 4.9 mmol/L [facility] Chloride 101 97 - 110 mmol/L [facility] CO2 39(H) 22 - 32 mmol/L [facility] Anion gap 4 2 - 15 mmol/L [facility] BUN 19 8 - 25 mg/dL [facility] Creatinine 0.56(L) 0.60 - 1.10 mg/dL [facility] Glucose 154 70 - 199 mg/dL [facility] Comment: Interpretive Data Fasting glucose >/= [...] interpretive data was last revised 2017. Calcium 9.1 8.5 - 10.3 mg/dL [facility] Blood specimen (specimen) 08/24/2020 6:58 AM DOCENT COORDINATOR 08/24/2020 7:23 AM DOCENT COORDINATOR Glenn Thrasher MD LAB BLOOD ORDERABLES Final Re sult [facility] [place] [address] * (ABNORMAL) CBC with auto differential (08/24/2020 6:58 AM DOCENT COORDINATOR) WBC 11.0(H) 3.8 - 9.9 K/cumm [facility] Hgb 7.4(L) 11.9 - 15.5 g/dL [facility] Hct 26.1(L) 35.6 - 45.5 % [facility] Plt 254 150 - 400 K/cumm [facility] MPV 10.3 9.1 - 12.3 fL [facility] RBC 3.32(L) 3.90 - 5.20 M/cumm [facility] MCV 78.6(L) 81.3 - 96.4 fL [facility] MCH 22.3(L) 27.1 - 33.3 pg [facility] MCHC 28.4(L) 32.3 - 35.7 g/dL [facility] RDW CV 17.2(H) 11.1 - 14.9 % [facility] RDW SD 48.4(H) 35.7 - 48.1 fL [facility] NRBC abs 0.00 0.00 - 0.01 K/cumm [facility] Blood specimen (specimen) 08/24/2020 6:58 AM DOCENT COORDINATOR 08/24/2020 7:23 AM DOCENT COORDINATOR us Glenn Thrasher MD LAB BLOOD ORDERABLES Final Re sult [facility] [place] [address] * (ABNORMAL) Blood gas, venous (08/24/2020 6:58 AM DOCENT COORDINATOR) pH, Venous 7.50(H) 7.32 - 7.43 [facility] PCO2, Venous 52(H) 40 - 50 mmHg [facility] PO2, Venous 137 mmHg [facility] Comment: Interpretive Data No Reference Range Established Current Interpretive Data was last revised on 2017. HCO3 Venous, Calculated 42(H) 20 - 30 mmol/L [facility] BE, venous 15 mmol/L [facility] Comment: Interpretive Data No Reference Range Established Current Interpretive Data was last revised on 2017. Blood specimen (specimen) 08/24/2020 6:58 AM DOCENT COORDINATOR 08/24/2020 7:23 AM DOCENT COORDINATOR us Aimee Conroy MD LAB BLOOD ORDERABLES Final Result Performing Organization Address [facility] Co de Phone Number [facility] [place] [address] * Opiates Confirmation, Urine (08/23/2020 11:47 PM DOCENT COORDINATOR) Pathologist [facility] Codeine Conf, Ur Does Not Confirm CutOff 50 ng/mL [facility] 6- Acetylmorphine Conf, Ur Does Not Confirm CutOff 10 ng/mL [facility] Oxycodone Conf, Ur Confirmed Positive CutOff 50 ng/mL [facility] Hydrocodone Conf, Ur Does Not Confirm CutOff 50 ng/mL [facility] Morphine Conf, Ur Does Not Confirm CutOff 50 ng/mL [facility] Hydromorphone Conf, Ur Does Not Confirm CutOff 50 ng/mL [facility] Oxymorphone Conf, Ur Does Not Confirm CutOff 50 ng/mL [facility] Urine 08/23/2020 11:4 7 PM DOCENT COORDINATOR 08/24/2020 12:23 AM DOCENT COORDINATOR us Glenn Thrasher MD LAB URINE ORDERABLES Final Re sult Performing Organization Address City/[facility]/ZIP Co de Phone Number [facility] [place] [address] * Legionella antigen Urine (08/23/2020 11:47 PM DOCENT COORDINATOR) Legionella Ag Negative Negative [facility] Comment: Interpretive Data This test detects only Legionella pneumophila serogroup 1 antigen. Testing performed by [facility] ([phone]). Current interpretive data was last revised on 2019. Urine 08/23/2020 11:4 7 PM DOCENT COORDINATOR 08/24/2020 12:13 AM DOCENT COORDINATOR Glenn Thrasher MD LAB MICROBIOLOGY - GENERAL OR DERABLES Final Result Performing Organization Address City/State/[facility] Co de Phone Number [facility] [place] [address] * (ABNORMAL) Drugs of Abuse Screen, Urine with Reflex Confirmation (08/23/2020 11:47 PM DOCENT COORDINATOR) Amphetamine, ur Not Detected CutOff 500ng/mL [facility] Comment: Interpretive Data - Amphetamines: ??Samples containing greater than 500 ng/mL d-methamphetamine ??or other cross-reacting amphetamine compounds are reported as positive. ??Amphetamine immunoassays are subject to significant false positive rates due to cross-reactivity of non-amphetamine drugs. Current Interpretive Data was last reviewed 2018. Barbiturates, ur Not Detected CutOff 200ng/mL [facility] Comment: Interpretive Data - Barbiturates: ??Samples containing greater than 200 ng/mL secobarbital or other cross-reacting barbiturate compounds are reported as positive. ??False positive and false negative results are possible. Current Interpretive Data was last reviewed 2018. Benzodiazepines, ur Detected(A) CutOff 100ng/mL [facility] Comment: Interpretive Data - Benzodiazepines: ??Samples containing greater than 100 ng/mL nordiazepam or other cross-reacting compounds are reported as positive. ?? False positive and false negative results are possible. ?? Current Interpretive Data was last reviewed 2018. Cannabinoids, ur Not Detected CutOff 50 ng/mL [facility] Comment: Interpretive Data - Cannabinoids: ??Samples containing greater than 50 ng/mL delta-9 THC -COOH or other cross-reacting compounds are reported as positive. ??False positive and false negative results are possible. ?? Current Interpretive Data was last reviewed 2018. Cocaine, ur Not Detected CutOff 150ng/mL [facility] Comment: Interpretive Data - Cocaine: ??Samples containing greater than 150 ng/mL benzoylecgonine or other cross-reacting compounds are reported as positive. False positive and false negative results are possible. Current Interpretive Data was last reviewed 2018. Fentanyl, Ur Not Detected Cutoff 1 ng/mL [facility] Comment: Interpretive Data - Fentanyls: ??Samples containing greater than 1 ng/mL fentanyl or other cross-reacting fentanyl compounds are reported as detected. ??False positive and false negative results are possible. Current Interpretive Data was last reviewed 2019. Methadone, ur Not Detected CutOff 300ng/mL [facility] Comment: Interpretive Data - Methadone: ??Samples containing greater than 300 ng/mL d,l-methadone or other cross-reacting compounds are reported as positive. ??False positive and false negative results are possible. Current Interpretive Data was last reviewed 2018. Opiates, ur Not Detected CutOff 300ng/mL [facility] Comment: Interpretive Data - Opiates: ??Samples containing greater than 300 ng/mL morphine or other cross-reacting compounds are reported as positive. ??False positive and false negative results are possible. Current Interpretive Data was last reviewed 2018. Oxycodone, ur Detected(A) CutOff 100ng/mL [facility] Comment: Interpretive Data - Oxycodone: ??Samples containing greater than 100 ng/mL oxycodone or other cross-reacting compounds are reported as positive. ??False positive and false negative results are possible. ?? Current Interpretive Data was last reviewed 2018. Phencyclidine, ur Not Detected CutOff 25 ng/mL [facility] Comment: Interpretive Data - Phencyclidine: ??Samples containing greater than 25 ng/mL phencyclidine or other cross-reacting compounds are reported as positive. ??False positive and false negative results are possible. ?? Current Interpretive Data was last reviewed 2018. Urine Creatinine 29 mg/dL [facility] Comment: Interpretive Data Urine Creatinine: < 10 mg/dL is extremely dilute = or > 10 but < 20 mg/dL is dilute = or > 20 mg/dL is normal Current Interpretive Data was last revised on 2017. Urine 08/23/2020 11:4 7 PM DOCENT COORDINATOR 08/24/2020 12:23 AM DOCENT COORDINATOR Narrative [facility] - 08/24/2020 1:28 AM DOCENT COORDINATOR Drug of Abuse screening is performed by immunoassay for medical purposes only. ??This is not to be used for Pain Management purposes. ??If Detected, confirmation testing will be performed for Amphetamines, Cocaine, Fentanyl, Methadone, Opiates, Oxycodone or Phencyclidine. us Glenn Thrasher MD LAB URINE ORDERABLES Final Re sult [facility] [place] [address] * Aerobic culture and gram stain Tracheal aspirate Endotracheal tube (08/23/2020 11:43 PM DOCENT COORDINATOR) Direct Specimen Exam Stain: Few polymorphonuclear leukocytes seen. No squamous epithelial cells seen. Rare mixed bacterial birdie seen on Gram stain. [facility] Report Final Report: Insignificant growth based on current clinical standards. [facility] Tracheal aspirate (Endotracheal tube) 08/23/2020 11:43 PM DOCENT COORDINATOR 08/24/2020 12:29 AM DOCENT COORDINATOR Narrative [facility] - 08/26/2020 8:39 AM DOCENT COORDINATOR Testing performed by [facility] ([phone]) Specimens submitted from normally sterile body sites will have all bacterial morphotypes identified. ??Specimens that contain grossly mixed birdie and/or are from body sites that are not normally sterile will be examined for Staphylococcus aureus, Pseudomonas aeruginosa, beta-hemolytic strep, vancomycin-resistant Enterococcus and fungus. ??If any of these are isolated, the organism will be reported. Current interpretive data was last revised on 2017. us Glenn Thrasher MD LAB MICROBIOLOGY - GENERAL OR DERABLES Final Result Performing Organization Address City/[facility]/ZIP Co de Phone Number [facility] [place] [address] * (ABNORMAL) Blood gas, arterial (08/23/2020 11:43 PM DOCENT COORDINATOR) pH, Art 7.47(H) 7.35 - 7.45 [facility] PCO2, Arterial 50(H) 35 - 45 mmHg [facility] PO2, Arterial 163(H) 83 - 108 mmHg [facility] HCO3 Art (Calculated) 37(H) 20 - 30 mmol/L [facility] BE, art 11 mmol/L [facility] Comment: Interpretive Data No Reference Range Established Current Interpretive Data was last revised on 2017 O2 Sat Art (Measured) 100(H) 90 - 95 % [facility] Blood specimen (specimen) 08/23/2020 11:43 PM DOCENT COORDINATOR 08/24/2020 12:11 AM DOCENT COORDINATOR us Glenn Thrasher MD LAB BLOOD ORDERABLES Final Re sult Performing Organization Address [facility] Co de Phone Number [facility] [place] [address] * Check Sample (08/23/2020 11:43 PM DOCENT COORDINATOR) ABO Rh A Positive [facility] HCLL OTHER 08/23/2020 11:4 3 PM DOCENT COORDINATOR 08/24/2020 12:16 AM DOCENT COORDINATOR us Glenn Thrasher MD LAB BLOOD ORDERABLES Final Re sult Performing Organization Address [facility] Co de Phone Number [facility] [place] [address] * Troponin I high-sensitivity 6-hour (08/23/2020 11:43 PM DOCENT COORDINATOR) Trop I hs 4 <=17 ng/L [facility] Comment: Interpretive Data For further hscTnI resources including the diagnostic algorithm and an aid in interpretation, copy and paste this link: https://bjhlab.testcatalog.org/show/hsTrop-1 Current Interpretive Data last revised 2020. Trop I hs delta 0 ng/L [facility] Trop I hs interp Insignificant [facility] Blood specimen (specimen) 08/23/2020 11:43 PM DOCENT COORDINATOR 08/24/2020 12:24 AM DOCENT COORDINATOR us Agatha Loredo MD LAB BLOOD ORDERABLES Sandra gu Result [facility] [place] [address] * XR Abdomen Ap 1 Vw (08/23/2020 11:11 PM DOCENT COORDINATOR) Anatomical Region Laterality Modality Body, Abdomen N/A Computed Radiogr aphy 08/24/2020 8:33 AM DOCENT COORDINATOR Impressions 08/24/2020 8:34 AM DOCENT COORDINATOR A single view of the abdomen is submitted for evaluation. Gastric tube tip is peripyloric and side-port is in the antrum of the stomach. ??There are partially visualized patchy airspace opacities predominantly in the right lung, which could represent sequela of aspiration or pneumonia. Dictated by: Migel Bay M.D. The radiology attending physician has personally reviewed this study, and had reviewed and/or edited this written report and agrees with it. Electronically signed by: Jessica Brizuela M.D. Narrative 08/24/2020 8:34 AM DOCENT COORDINATOR EXAMINATION: Abdomen, one view. HISTORY: Check tube placement. COMPARISON: 05/10/2015. Procedure Note Jessica Brizuela MD - 08/24/2020 EXAMINATION: Abdomen, one view. HISTORY: Check tube placement. COMPARISON: 05/10/2015. IMPRESSION: A single view of the abdomen is submitted for evaluation. Gastric tube tip is peripyloric and side-port is in the antrum of the stomach. There are partially visualized patchy airspace opacities predominantly in the right lung, which could represent sequela of aspiration or pneumonia. Dictated by: Migel Bay M.D. The radiology attending physician has personally reviewed this study, and had reviewed and/or edited this written report and agrees with it. Electronically signed by: Jessica Brizuela M.D. us Glenn Thrasher MD IMG XR PROCEDURES Final Resul t * XR Chest 1 View (08/23/2020 11:10 PM DOCENT COORDINATOR) Anatomical Region Laterality Modality Body, Chest N/A Computed Radiogr aphy 08/24/2020 10:0 2 AM DOCENT COORDINATOR Impressions 08/24/2020 11:00 AM DOCENT COORDINATOR First exam 08/23/2020 9:33 PM. ??Comparison is made to single view chest radiograph dated 08/23/2020 7:11 PM. ??Unchanged small lung volumes with right basilar opacities favored to represent atelectasis versus aspiration. ??No pleural effusion or pneumothorax. ??Cardiac mediastinal silhouette is stable. Second exam ??08/23/2020 10:49 PM. ??Endotracheal tube tip projects 2 cm above the tricia. ??Gastric tube courses caudally beneath left hemidiaphragm out of the [id number]. ??Slightly improved aeration in the right lung base with mild residual atelectasis. Dictated by: Roshni Vasquez M.D. The radiology attending physician has personally reviewed this study, and had reviewed and/or edited this written report and agrees with it. Electronically signed by: Octavio Ricketts M.D. Narrative 08/24/2020 11:00 AM DOCENT COORDINATOR Examination: 2 portable chests Chest one view portable Chest one view portable Procedure Note Octavio Ricketts MD - 08/24/2020 Examination: 2 portable chests Chest one view portable Chest one view portable IMPRESSION: First exam 08/23/2020 9:33 PM. Comparison is made to single view chest radiograph dated 08/23/2020 7:11 PM. Unchanged small lung volumes with right basilar opacities favored to represent atelectasis versus aspiration. No pleural effusion or pneumothorax. Cardiac mediastinal silhouette is stable. Second exam 08/23/2020 10:49 PM. Endotracheal tube tip projects 2 cm above the tricia. Gastric tube courses caudally beneath left hemidiaphragm out of the [id number]. Slightly improved aeration in the right lung base with mild residual atelectasis. Dictated by: Roshni Vasquez M.D. The radiology attending physician has personally reviewed this study, and had reviewed and/or edited this written report and agrees with it. Electronically signed by: Octavio Ricketts M.D. Glenn Thrasher MD IMG XR PROCEDURES Final Resul t * [place] CRITICAL CARE ILL/INJURED PATIENT INIT 30-74 MIN (08/23/2020 10:32 PM DOCENT COORDINATOR) Narrative Agatha Loredo MD - 08/23/2020 10:32 PM DOCENT COORDINATOR Agatha Loredo MD ? 08/23/2020 10:35 PM Critical Care Performed by: Agatha Loredo MD Authorized by: Agatha Loredo MD Critical care provider statement: As reflected in the history, physical exam, orders, notes, and/or MDM, I was personally present while the patient was critically ill and provided critical care services for approximately 40 minutes, excluding time involved in separately billable procedures. ??Critical care was necessary to treat or prevent imminent or life-threatening deterioration of the following condition(s): ?? unstable vital signs ?? encephalopathy ?? hypoxic respiratory failure, hypercarbic respiratory failure, COPD with acute exacerbation and severe respiratory condition ?? acid-base disturbance, acute electrolyte derangement and hypo/hyper glycemic control ?? sepsis and pneumonia ??Critical care was time spent by me providing the following: ? continuous telemetry, continuous pulse oximetry, continuous capnography, interpretation of bedside monitors, imaging, and arterial/venous lab draws, serial bedside patient exams and serial laboratory checks ?? frequent neurologic exams ?? decision regarding NPO status and active monitoring of intake/output status ?? supplemental oxygen, frequent bronchodilator treatments and non-invasive positive pressure ventilator management ?? placement of guerrero catheter for close monitoring of renal function and initiation of steroids ?? I provided emergent necessary critical care [...] medical record. I admitted this patient to an Intensive Care unit (ICU) and discussed management with the admitting team. us Agatha Loredo MD IN CLINIC/BEDSIDE ORDERAB LES Final Result * INTUBATION (08/23/2020 10:29 PM DOCENT COORDINATOR) Narrative Aimee Conroy MD - 08/23/2020 10:29 PM DOCENT COORDINATOR Luis Alfredo Murray MD ? 08/23/2020 10:34 PM Intubation Date/Time: 08/23/2020 10:29 PM Performed by: Luis Alfredo Murray MD Authorized by: Aimee Conroy MD [place] Protocol: RN Notified of Procedure: yes ?? Patient's stated name/ matches armband: ??Patient unable to verbalize - armband matched to name and within medical record Consent form signed, dated, timed; matches correct patient, intended procedure and site: ??No consent form due to emergent status Imaging: ??Pertinent imaging reviewed, correctly oriented and match to patient identifiers Lab/Diag test results: ??Pertinent lab/diag tests reviewed and match to patient identifiers Supplies, devices and special equipment are available: yes ?? Site/side marked: yes Indications: ??Hypercapnia and respiratory failure Intubation method: ??Video-assisted Patient status: ??RSI Patient position: ??Cervical collar not in place during intubation Preoxygenation: ??Non-invasive positive pressure Mask Ease: not attempted ?? Pretreatment meds: ??None Sedation: ??Etomidate Paralytic: ??Rocuronium Laryngoscope size: ??Mac 4 Tube size (mm): ??7.5 Tube type: ??Cuffed Number of attempts: ??1 Was this a difficult intubation?: No ?? Cricoid pressure: Yes ?? Cords visualized: Yes ?? Post-procedure assessment: ??Chest rise and ETCO2 monitor Breath sounds: ??Equal Cuff inflated: Yes ?? ETT to lip (cm): ??24 Tube secured with: ??ETT ayers Patient tolerance: ??Patient tolerated the procedure well with no immediate complications us Aimee Conroy MD IN CLINIC/BEDSIDE ORD ERABLES Final Result * ECG 12 lead (08/23/2020 10:10 PM DOCENT COORDINATOR) Pathologist [facility] Ventricular Rate EKG/Min 82 BPM [facility] Atrial Rate 82 BPM [facility] [place]-Interval (MSEC) 138 ms [facility] QRS-Interval (MSEC) 66 ms [facility] QT-Interval (MSEC) 360 ms [facility] QTc 420 ms [facility] P [place] 28 degrees [facility] R [place] 18 degrees [facility] T [place] 28 degrees [facility] Diagnosis Normal sinus rhythm Normal ECG When compared with ECG of 10-MAY-2015 04:50, Fusion complexes are no longer Present Premature atrial complexes are no longer Present Confirmed by LIEN CORNELL M.D ([id number]) on 08/24/2020 2:58:23 PM [facility] 08/23/2020 10:1 0 PM DOCENT COORDINATOR 08/24/2020 2:58 PM DOCENT COORDINATOR us Aimee Conroy MD ECG ORDERABLES Final Result [facility] * XR Chest 1 View (Portable) (08/23/2020 9:45 PM DOCENT COORDINATOR) Anatomical Region Laterality Modality Body, Chest N/A Computed Radiogr aphy 08/24/2020 10:0 2 AM DOCENT COORDINATOR Impressions 08/24/2020 11:00 AM DOCENT COORDINATOR First exam 08/23/2020 9:33 PM. ??Comparison is made to single view chest radiograph dated 08/23/2020 7:11 PM. ??Unchanged small lung volumes with right basilar opacities favored to represent atelectasis versus aspiration. ??No pleural effusion or pneumothorax. ??Cardiac mediastinal silhouette is stable. Second exam ??08/23/2020 10:49 PM. ??Endotracheal tube tip projects 2 cm above the tricia. ??Gastric tube courses caudally beneath left hemidiaphragm out of the [id number]. ??Slightly improved aeration in the right lung base with mild residual atelectasis. Dictated by: Roshni Vasquez M.D. The radiology attending physician has personally reviewed this study, and had reviewed and/or edited this written report and agrees with it. Electronically signed by: Octavio Ricketts M.D. Narrative 08/24/2020 11:00 AM DOCENT COORDINATOR Examination: 2 portable chests Chest one view portable Chest one view portable Procedure Note Octavio Ricketts MD - 08/24/2020 Examination: 2 portable chests Chest one view portable Chest one view portable IMPRESSION: First exam 08/23/2020 9:33 PM. Comparison is made to single view chest radiograph dated 08/23/2020 7:11 PM. Unchanged small lung volumes with right basilar opacities favored to represent atelectasis versus aspiration. No pleural effusion or pneumothorax. Cardiac mediastinal silhouette is stable. Second exam 08/23/2020 10:49 PM. Endotracheal tube tip projects 2 cm above the tricia. Gastric tube courses caudally beneath left hemidiaphragm out of the [id number]. Slightly improved aeration in the right lung base with mild residual atelectasis. Dictated by: Roshni Vasquez M.D. The radiology attending physician has personally reviewed this study, and had reviewed and/or edited this written report and agrees with it. Electronically signed by: Octavio Ricketts M.D. Aimee Conroy MD IMG XR PROCEDURES Fin al Result * (ABNORMAL) Lipid panel (08/23/2020 9:29 PM DOCENT COORDINATOR) [facility] Cholesterol 194 30 - 199 mg/dL [facility] Comment: Interpretive Data Ages < or [...] Data was last revised on 2018. Triglycerides 154(H) <=149 mg/dL [facility] Comment: Interpretive Data Ages < or = [...] Data was last revised on 2018. HDL 43 >=40 mg/dL [facility] Comment: Interpretive Data Ages < or = [...] was last revised on 2018. LDL, calculated 120 <=129 mg/dL [facility] Comment: Interpretive Data Ages < or [...] was last revised on 2018. Non-HDL Cholesterol 151 mg/dL [facility] Comment: Interpretive Data Ages < or [...] was last revised on 2018. Chol/HDL ratio 5 [facility] Blood specimen (specimen) 08/23/2020 9:29 PM DOCENT COORDINATOR 08/23/2020 9:59 PM DOCENT COORDINATOR us Glenn Thrasher MD LAB BLOOD ORDERABLES Final Re sult Performing Organization Address [facility] Co de Phone Number [facility] [place] [address] * T3, free (08/23/2020 9:29 PM DOCENT COORDINATOR) Free T3 3.7 2.0 - 4.4 pg/mL [facility] Blood specimen (specimen) 08/23/2020 9:29 PM DOCENT COORDINATOR 08/23/2020 9:59 PM DOCENT COORDINATOR us Glenn Thrasher MD LAB BLOOD ORDERABLES Final Re sult Performing Organization Address [facility] de Phone Number [facility] [place] [address] * T4, free (08/23/2020 9:29 PM DOCENT COORDINATOR) Free T4 1.25 0.90 - 1.70 ng/dL [facility] Blood specimen (specimen) 08/23/2020 9:29 PM DOCENT COORDINATOR 08/23/2020 9:59 PM DOCENT COORDINATOR us Glenn Thrasher MD LAB BLOOD ORDERABLES Final Re sult Performing Organization Address [facility] [place] [address] * (ABNORMAL) Differential, auto (08/23/2020 9:29 PM DOCENT COORDINATOR) [facility] Neutrophil abs 12.9(H) 1.7 - 6.5 K/cumm [facility] Imm gran abs 0.1 0.0 - 0.1 K/cumm [facility] Lymphocyte abs 0.9 0.8 - 3.3 K/cumm [facility] Monocyte abs 0.6 0.2 - 0.8 K/cumm [facility] Eosinophil abs 0.0 0.0 - 0.5 K/cumm [facility] Basophil abs 0.0 0.0 - 0.1 K/cumm [facility] Neutrophil pct 89.1 % [facility] Comment: Interpretive Data Percent cell count reference ranges are not reported, since discordance with absolute values may lead to misinterpretation of CBC data. Current Interpretive Data was last revised on 2017. Imm gran pct 0.8 % [facility] Comment: Interpretive Data Percent cell count reference ranges are not reported, since discordance with absolute values may lead to misinterpretation of CBC data. Current Interpretive Data was last revised on 2017. Lymphocyte pct 5.9 % [facility] Comment: Interpretive Data Percent cell count reference ranges are not reported, since discordance with absolute values may lead to misinterpretation of CBC data. Current Interpretive Data was last revised on 2017. Monocyte pct 4.0 % [facility] Comment: Interpretive Data Percent cell count reference ranges are not reported, since discordance with absolute values may lead to misinterpretation of CBC data. Current Interpretive Data was last revised on 2017. Eosinophil pct 0.0 % [facility] Comment: Interpretive Data Percent cell count reference ranges are not reported, since discordance with absolute values may lead to misinterpretation of CBC data. Current Interpretive Data was last revised on 2017. Basophil pct 0.2 % [facility] Comment: Interpretive Data Percent cell count reference ranges are not reported, since discordance with absolute values may lead to misinterpretation of CBC data. Current Interpretive Data was last revised on 2017. Blood specimen (specimen) 08/23/2020 9:29 PM DOCENT COORDINATOR 08/23/2020 10:00 PM DOCENT COORDINATOR us Aimee Conroy MD LAB BLOOD ORDERABLES Final Result [facility] [place] [address] * Critical Result Callback Chemistry (08/23/2020 9:29 PM DOCENT COORDINATOR) Date Notified [id number] [facility] Time Notified 2203 [facility] TestName pH torsten and pCO2 Tor[facility] Called/Read Back Zachary Bipin [facility] Credentials RN [facility] Called By CLARICE [facility] Blood specimen (specimen) 08/23/2020 9:29 PM DOCENT COORDINATOR 08/23/2020 9:52 PM DOCENT COORDINATOR Aimee Conroy MD LAB BLOOD ORDERABLES Final Result Performing Organization Address City/[facility]/ZIP Co de Phone Number [facility] [place] [address] * (ABNORMAL) Blood gas, venous (08/23/2020 9:29 PM DOCENT COORDINATOR) Pathologist [facility] pH, Venous 7.14(C) 7.32 - 7.43 [facility] PCO2, Venous >125(C) 40 - 50 mmHg [facility] PO2, Venous 31 mmHg [facility] Comment: Interpretive Data No Reference Range Established Current Interpretive Data was last revised on 2017. HCO3 Venous, Calculated See Comment - [facility] Comment:Unable to calculate exact result. BE, venous See Comment [facility] Comment: Unable to calculate exact result. Interpretive Data No Reference Range Established Current Interpretive Data was last revised on 2017. Blood specimen (specimen) 08/23/2020 9:29 PM DOCENT COORDINATOR 08/23/2020 9:52 PM DOCENT COORDINATOR Aimee Conroy MD LAB BLOOD ORDERABLES Final Result Performing Organization Address City/[facility]/ZIP Co de Phone Number [facility] [place] [address] * Type and screen (08/23/2020 9:29 PM DOCENT COORDINATOR) Sheng, indirect Negative [facility] ABO Rh A Positive [facility] Blood specimen (specimen) 08/23/2020 9:29 PM DOCENT COORDINATOR 08/23/2020 9:57 PM DOCENT COORDINATOR Narrative [facility] - 08/23/2020 10:57 PM DOCENT COORDINATOR Has the patient had Daratumumab or Isatuximab in the past 6 months?->Unknown Aimee Conroy MD LAB BLOOD BANK TEST O RDERABLES Final Result Performing Organization Address City/[facility]/ZIP Co de Phone Number [facility] [place] [address] * (ABNORMAL) CBC with auto differential (08/23/2020 9:29 PM DOCENT COORDINATOR) WBC 14.5(H) 3.8 - 9.9 K/cumm [facility] Hgb 8.1(L) 11.9 - 15.5 g/dL [facility] Hct 31.8(L) 35.6 - 45.5 % [facility] Plt 240 150 - 400 K/cumm [facility] MPV 9.4 9.1 - 12.3 fL [facility] RBC 3.84(L) 3.90 - 5.20 M/cumm [facility] MCV 82.8 81.3 - 96.4 fL [facility] MCH 21.1(L) 27.1 - 33.3 pg [facility] MCHC 25.5(L) 32.3 - 35.7 g/dL [facility] RDW CV 17.3(H) 11.1 - 14.9 % [facility] RDW SD 52.0(H) 35.7 - 48.1 fL [facility] NRBC abs 0.00 0.00 - 0.01 K/cumm [facility] Blood specimen (specimen) 08/23/2020 9:29 PM DOCENT COORDINATOR 08/23/2020 10:00 PM DOCENT COORDINATOR Aimee Conroy MD LAB BLOOD ORDERABLES Final Result Performing Organization Address City/[facility]/ZIP Co de Phone Number [facility] [place] [address] * Phosphorus (08/23/2020 9:29 PM DOCENT COORDINATOR) [facility] Phosphorus, pl 4.0 2.3 - 4.5 mg/dL [facility] Blood specimen (specimen) 08/23/2020 9:29 PM DOCENT COORDINATOR 08/23/2020 9:59 PM DOCENT COORDINATOR Aimee Conroy MD LAB BLOOD ORDERABLES Final Result Performing Organization Address City/[facility]/ZIP Co de Phone Number [facility] [place] [address] * (ABNORMAL) Magnesium (08/23/2020 9:29 PM DOCENT COORDINATOR) [facility] Magnesium 2.7(H) 1.4 - 2.5 mg/dL [facility] Blood specimen (specimen) 08/23/2020 9:29 PM DOCENT COORDINATOR 08/23/2020 9:59 PM DOCENT COORDINATOR Aimee Conroy MD LAB BLOOD ORDERABLES Final Result Performing Organization Address [facility] [place] [address] * (ABNORMAL) Basic metabolic panel (08/23/2020 9:29 PM DOCENT COORDINATOR) [facility] Sodium 144 135 - 145 mmol/L [facility] Potassium, pl 4.0 3.3 - 4.9 mmol/L [facility] Chloride 101 97 - 110 mmol/L [facility] CO2 44(H) 22 - 32 mmol/L [facility] Comment:Reviewed Anion gap <1(L) 2 - 15 mmol/L [facility] BUN 18 8 - 25 mg/dL [facility] Creatinine 0.59(L) 0.60 - 1.10 mg/dL [facility] Glucose 150 70 - 199 mg/dL [facility] Comment: Interpretive Data Fasting glucose >/= [...] interpretive data was last revised 2017. Calcium 8.9 8.5 - 10.3 mg/dL [facility] Blood specimen (specimen) 08/23/2020 9:29 PM DOCENT COORDINATOR 08/23/2020 9:59 PM DOCENT COORDINATOR Aimee Conroy MD LAB BLOOD ORDERABLES Final Result Performing Organization Address [facility] Co de Phone Number [facility] [place] [address] * Troponin I high-sensitivity 4-hour (08/23/2020 9:29 PM DOCENT COORDINATOR) Trop I hs <4 <=17 ng/L [facility] Comment: Interpretive Data For further [facility] resources including the diagnostic algorithm and an aid in interpretation, copy and paste this link: https://bjhlab.testcatalog.org/show/[email or web address] Current Interpretive Data last revised 2020. Trop I hs delta 0 ng/L [facility] Trop I hs interp Insignificant [facility] Blood specimen (specimen) 08/23/2020 9:29 PM DOCENT COORDINATOR 08/23/2020 10:00 PM DOCENT COORDINATOR Agatha Loredo MD LAB BLOOD ORDERABLES Sandra l Result Performing Organization Address City/[facility]/ZIP Co de Phone Number [facility] [place] [address] * Critical Result Callback Chemistry (08/23/2020 7:58 PM DOCENT COORDINATOR) Date Notified 20200823 [facility] Time Notified 20:14 [facility] TestName pH torsten, pCO2, HCO3 [facility] Called/Read Back vj [facility] Credentials MD [facility] Called By rafy [facility] Blood specimen (specimen) 08/23/2020 7:58 PM DOCENT COORDINATOR 08/23/2020 8:06 PM DOCENT COORDINATOR Agatha Loredo MD LAB BLOOD ORDERABLES Sandra l Result [facility] [place] [address] * (ABNORMAL) Blood gas, venous (08/23/2020 7:58 PM DOCENT COORDINATOR) [facility] pH, Venous 7.17(C) 7.32 - 7.43 [facility] PCO2, Venous 125(C) 40 - 50 mmHg [facility] PO2, Venous 41 mmHg [facility] Comment: Interpretive Data No Reference Range Established Current Interpretive Data was last revised on 2017. HCO3 Venous, Calculated 48(C) 20 - 30 mmol/L [facility] BE, venous 13 mmol/L [facility] Comment: Interpretive Data No Reference Range Established Current Interpretive Data was last revised on 2017. Blood specimen (specimen) 08/23/2020 7:58 PM DOCENT COORDINATOR 08/23/2020 8:06 PM DOCENT COORDINATOR Narrative [facility] - 08/23/2020 8:13 PM DOCENT COORDINATOR THE BJ COLLECTION LOCATION IS [facility] CC-03 Agatha Loredo MD LAB BLOOD ORDERABLES Sandra l Result [facility] [place] [address] * Troponin I high-sensitivity 2-hour (08/23/2020 7:58 PM DOCENT COORDINATOR) Trop I hs <4 <=17 ng/L [facility] Comment: Interpretive Data For further [facility] resources including the diagnostic algorithm and an aid in interpretation, copy and paste this link: https://bjhlab.testcatalog.org/show/[email or web address] Current Interpretive Data last revised 2020. Trop I hs delta 0 ng/L [facility] Trop I hs interp Insignificant [facility] Blood specimen (specimen) 08/23/2020 7:58 PM DOCENT COORDINATOR 08/23/2020 8:16 PM DOCENT COORDINATOR us Agatha Loredo MD LAB BLOOD ORDERABLES Sandra riccardo Result [facility] [place] [address] * XR Chest 1 Vw Portable (08/23/2020 7:27 PM DOCENT COORDINATOR) Anatomical Region Laterality Modality Body, Chest N/A Computed Radiogr aphy 08/23/2020 7:46 PM DOCENT COORDINATOR Impressions 08/23/2020 8:25 PM DOCENT COORDINATOR Lung volumes are very small. ??There are patchy airspace opacities throughout the right lung, most notable in the right lung base. ??Some of these have a nodular appearance. ??Findings may represent sequela of aspiration or pneumonia. ??There is no pleural effusion. ??There is no pneumothorax. The cardiomediastinal silhouette is unchanged. Dictated by: Leonela Louise M.D. The radiology attending physician has personally reviewed this study, and had reviewed and/or edited this written report and agrees with it. Electronically signed by: Vaughn Gusman M.D. Narrative 08/23/2020 8:25 PM DOCENT COORDINATOR EXAMINATION: XR CHEST 1 VIEW HISTORY: Altered mental status, shortness of breath COMPARISON: 05/13/2015 Procedure Note Vaguhn Gusman MD - 08/23/2020 EXAMINATION: XR CHEST 1 VIEW HISTORY: Altered mental status, shortness of breath COMPARISON: 05/13/2015 IMPRESSION: Lung volumes are very small. There are patchy airspace opacities throughout the right lung, most notable in the right lung base. Some of these have a nodular appearance. Findings may represent sequela of aspiration or pneumonia. There is no pleural effusion. There is no pneumothorax. The cardiomediastinal silhouette is unchanged. Dictated by: Leonela Louise M.D. The radiology attending physician has personally reviewed this study, and had reviewed and/or edited this written report and agrees with it. Electronically signed by: Vaughn Gusman M.D. us Michael Tinajero MD IMG XR PROCEDURES Final Result * (ABNORMAL) Urinalysis, microscopic only (08/23/2020 7:12 PM DOCENT COORDINATOR) WBC, ur 0-5 0 - 5 /HPF [facility] RBC, ur 0-2 0 - 2 /HPF [facility] Epithelial cells, squamous, ur 1-5 0 - 5 /HPF [facility] Bacteria, ur Trace(A) [facility] Mucous, ur Present(A) [facility] Culture Reflex Comment Reflex conditions for urine culture (WBC >10) not met. [facility] Urine 08/23/2020 7:12 PM DOCENT COORDINATOR 08/23/2020 7:17 PM DOCENT COORDINATOR Michael Tinajero MD LAB URINE ORDERABLES Fi nal Result [facility] [place] [address] * (ABNORMAL) Urinalysis reflex to microscopic and culture Urine (08/23/2020 7:12 PM DOCENT COORDINATOR) Color, ur Yellow Yellow [facility] Clarity, ur Clear Clear [facility] Specific gravity, ur >1.042(H) 1.010 - 1.025 [facility] pH, urine 6 [facility] Protein, ur ql 1+(A) Negative [facility] Glucose, ur ql Negative Negative [facility] Ketones, ur Negative Negative [facility] Bilirubin, ur Negative Negative [facility] Blood, ur Negative Negative [facility] Urobilinogen, ur <2.0 <2.0 mg/dL [facility] Nitrite, ur Negative Negative [facility] Leukocyte esterase, ur Negative Negative [facility] UA reflex comment Reflex to microscopic UA will be performed. [facility] Urine 08/23/2020 7:12 PM DOCENT COORDINATOR 08/23/2020 7:17 PM DOCENT COORDINATOR Narrative [facility] - 08/23/2020 7:29 PM DOCENT COORDINATOR THE BJ COLLECTION LOCATION IS [facility]03 Urine pH is affected by diet, medications, systemic acid-base disturbances, and renal tubular function. ??pH may affect urinary stone formation. ??For example, urine pH below 6.0 may help reduce the tendency for calcium phosphate stones and pH greater than 6.0 may reduce the tendency for uric acid stone formation. Source: [facility] [place]. Last revised 08-15-2017 Michael Tinajero MD LAB MICROBIOLOGY - GENE RAL ORDERABLES Final Result [facility] [place] [address] * ECG 12-LEAD (08/23/2020 6:50 PM DOCENT COORDINATOR) Narrative [facility] - 08/23/2020 6:50 PM DOCENT COORDINATOR Agatha Loredo MD ? 08/23/2020 ??6:51 PM ECG 12 lead Date/Time: 08/23/2020 6:50 PM Performed by: Agatha Loredo MD Authorized by: Agatha Loredo MD Rate: ??ECG rate: ??73 ??ECG rate assessment: normal ?? Rhythm: ??Rhythm: sinus rhythm ?? Ectopy: ??Ectopy: none ?? QRS: ??QRS axis: ??Normal Conduction: ??Conduction: normal ?? ST segments: ??ST segments: ??Normal T waves: ??T waves: inverted ?Inverted: ??III and V1 Previous ECG: ??Previous ECG: ??Compared to current ??Date of previous ECG: ??05/10/2015 Interpretation: ??Interpretation: No significant change ?? Recommended Follow-up: ??Recommended follow up: further workup in the ED ?? Procedure Note Agatha Loredo MD - 08/23/2020 6:50 PM CST Procedure ECG 12 lead Date/Time: 08/23/2020 6:50 PM Performed by: Agatha Loredo MD Authorized by: Agatha Loredo MD Rate: ECG rate: 73 ECG rate assessment: normal Rhythm: Rhythm: sinus rhythm Ectopy: Ectopy: none QRS: QRS axis: Normal Conduction: Conduction: normal ST segments: ST segments: Normal T waves: T waves: inverted Inverted: III and V1 Previous ECG: Previous ECG: Compared to current Date of previous EC05/10/2015 Interpretation: Interpretation: No significant change Recommended Follow-up: Recommended follow up: further workup in the ED Agatha Loredo MD 08/23/20 185 us Agatha Loredo MD ECG ORDERABLES Final Res ult [facility] * T4, free (08/23/2020 6:48 PM DOCENT COORDINATOR) Free T4 1.18 0.90 - 1.70 ng/dL [facility] Blood specimen (specimen) 08/23/2020 6:48 PM DOCENT COORDINATOR 08/23/2020 7:13 PM DOCENT COORDINATOR Narrative [facility] - 08/23/2020 8:09 PM DOCENT COORDINATOR This test was reflexed from a TSH result. us Michael Tinajero MD LAB BLOOD ORDERABLES Fi nal Result [facility] Department [place] [address] * Critical Result Callback Chemistry (08/23/2020 6:48 PM DOCENT COORDINATOR) Date Notified 20200823 [facility] Time Notified 1916 [facility] TestName pH Torsten and pCO2 Torsten [facility] Called/Read Back Michael PAN Credentials MD [facility] Called By CLARICE PAN Blood specimen (specimen) 08/23/2020 6:48 PM DOCENT COORDINATOR 08/23/2020 7:02 PM DOCENT COORDINATOR Michael Tinajero MD LAB BLOOD ORDERABLES Fi nal Result [facility] [place] [address] * Blood culture Blood Arm, left (08/23/2020 6:48 PM DOCENT COORDINATOR) Report Final Report: No growth [facility] Blood specimen (specimen) (Arm, left) 08/23/2020 6:48 PM DOCENT COORDINATOR 08/23/2020 7:04 PM DOCENT COORDINATOR Narrative [facility] - 08/28/2020 7:00 AM DOCENT COORDINATOR THE BJ COLLECTION LOCATION IS [address] 1. ?Blood cultures are incubated for 4 days on a continuously monitored blood culture system. The first report of a negative culture is issued within 24 hours of receipt of the specimen in the laboratory. 2. ?Positive culture results are reported as soon as they are detected. 3. ?The most important factor for detection of microbes in the setting of bloodstream infection is the volume of blood submitted for culture. Failure to collect an optimal blood volume can result in false negative blood cultures. For pediatric patients, the recommended blood volume to collect is 1 mL of blood per year of patient age (up to 20 mL) per blood culture set. For adult patients, 20 mL of blood, divided equally between aerobic and anaerobic blood culture bottles, is recommended for each blood culture set. 4. ?For blood cultures with Gram-positive cocci, a rapid molecular test for organism identification may be performed using the Gold Lassoigene Gram-Positive Blood Culture Assay. This assay detects microbial DNA in positive blood culture broth via hybridization of target DNA to capture oligonucleotides on a microarray. This assay has been cleared by the [place] Food and Drug Administration and its performance characteristics have been verified by the [facility] Microbiology Laboratory. 5. ?For questions about this culture, contact the Microbiology Laboratory at [phone]. Interpretive data was last revised on 2019. Michael Tinajero MD LAB MICROBIOLOGY - GENE RAL ORDERABLES Final Result Performing Organization Address [facility] Co de Phone Number [facility] [place] [address] * (ABNORMAL) Ammonia (08/23/2020 6:48 PM DOCENT COORDINATOR) Ammonia 52(H) 5 - 50 mcmol/L [facility] Blood specimen (specimen) 08/23/2020 6:48 PM DOCENT COORDINATOR 08/23/2020 7:04 PM DOCENT COORDINATOR Narrative [facility] - 08/23/2020 7:39 PM DOCENT COORDINATOR THE COLLECTION LOCATION IS [address] Michael Tinajero MD LAB BLOOD ORDERABLES Fi nal Result Performing Organization Address [facility] [place] [address] * (ABNORMAL) TSH reflex to free T4 (08/23/2020 6:48 PM DOCENT COORDINATOR) TSH 0.26(L) 0.30 - 4.20 mcIUnit/mL [facility] Blood specimen (specimen) 08/23/2020 6:48 PM DOCENT COORDINATOR 08/23/2020 7:13 PM DOCENT COORDINATOR Narrative [facility] - 08/23/2020 7:49 PM DOCENT COORDINATOR THE COLLECTION LOCATION IS [facility] CC03 Michael Tinajero MD LAB BLOOD ORDERABLES Fi nal Result Performing Organization Address [facility]/[place]IP [place] [address] * Hepatic function panel (08/23/2020 6:48 PM DOCENT COORDINATOR) Bilirubin, total 0.3 0.1 - 1.2 mg/dL [facility] Bilirubin, direct <0.2 0.1 - 0.3 mg/dL [facility] Protein, pl 7.4 6.5 - 8.5 g/dL [facility] Albumin 4.2 3.5 - 5.0 g/dL [facility] Alk phos 117 40 - 130 Units/L [facility] ALT 12 7 - 45 Units/L [facility] AST 17 10 - 45 Units/L [facility] Blood specimen (specimen) 08/23/2020 6:48 PM DOCENT COORDINATOR 08/23/2020 7:13 PM DOCENT COORDINATOR Narrative [facility] - 08/23/2020 7:49 PM DOCENT COORDINATOR THE COLLECTION LOCATION IS [address] Michael Tinajero MD LAB BLOOD ORDERABLES nal Result [facility] [place] [address] * (ABNORMAL) Blood gas, venous (08/23/2020 6:48 PM DOCENT COORDINATOR) Pathologist [facility] pH, Venous 7.16(C) 7.32 - 7.43 [facility] PCO2, Venous >125(C) 40 - 50 mmHg [facility] PO2, Venous 158 mmHg [facility] Comment: Interpretive Data No Reference Range Established Current Interpretive Data was last revised on 2017. HCO3 Venous, Calculated See Comment - [facility] Comment:Unable to calculate exact result. BE, venous See Comment [facility] Comment: Unable to calculate exact result. Interpretive Data No Reference Range Established Current Interpretive Data was last revised on 2017. Blood specimen (specimen) 08/23/2020 6:48 PM DOCENT COORDINATOR 08/23/2020 7:02 PM DOCENT COORDINATOR Narrative [facility] - 08/23/2020 7:13 PM DOCENT COORDINATOR THE COLLECTION LOCATION IS [facility]03 us Michael Tinajero MD LAB BLOOD ORDERABLES Fi nal Result Performing Organization Address City/[facility] Co de Phone Number [facility] [place] [address] * (ABNORMAL) POC Blood Gas and Chemistries, Arterial - (08/23/2020 6:40 PM DOCENT COORDINATOR) Lactate, POC 0.5(L) 0.7 - 2.2 mmol/L [facility] Blood specimen (specimen) 08/23/2020 6:40 PM DOCENT COORDINATOR 08/23/2020 6:40 PM DOCENT COORDINATOR Agatha Loredo MD LAB POCT ORDERABLES - DEV ICE Final Result Performing Organization Address [facility] Co de Phone Number [facility] [place] [address] * Blood culture Blood (08/23/2020 6:32 PM DOCENT COORDINATOR) Report Final Report: No growth [facility] Blood specimen (specimen) 08/23/2020 6:32 PM DOCENT COORDINATOR 08/23/2020 6:40 PM DOCENT COORDINATOR Narrative [facility] - 08/28/2020 7:00 AM DOCENT COORDINATOR THE COLLECTION LOCATION IS [facility]03 1. ?Blood cultures are incubated for 4 days on a continuously monitored blood culture system. The first report of a negative culture is issued within 24 hours of receipt of the specimen in the laboratory. 2. ?Positive culture results are reported as soon as they are detected. 3. ?The most important factor for detection of microbes in the setting of bloodstream infection is the volume of blood submitted for culture. Failure to collect an optimal blood volume can result in false negative blood cultures. For pediatric patients, the recommended blood volume to collect is 1 mL of blood per year of patient age (up to 20 mL) per blood culture set. For adult patients, 20 mL of blood, divided equally between aerobic and anaerobic blood culture bottles, is recommended for each blood culture set. 4. ?For blood cultures with Gram-positive cocci, a rapid molecular test for organism identification may be performed using the Verigene Gram-Positive Blood Culture Assay. This assay detects microbial DNA in positive blood culture broth via hybridization of target DNA to capture oligonucleotides on a microarray. This assay has been cleared by the [place] Food and Drug Administration and its performance characteristics have been verified by the [facility] Microbiology Laboratory. 5. ?For questions about this culture, contact the Microbiology Laboratory at [phone]. Interpretive data was last revised on 2019. Michael Tinajero MD LAB MICROBIOLOGY - GENE RAL ORDERABLES Final Result [facility] [place] [address] * Influenza A/B, RSV, and COVID-19 PCR Nasopharyngeal (08/23/2020 6:32 PM DOCENT COORDINATOR) Pathologist [facility] Influenza A RNA Negative Negative [facility] Influenza B RNA Negative Negative [facility] RSV RNA Negative Negative [facility] Comment: Interpretive data: Testing performed by [facility] Microbiology Laboratory ([phone]). This test is performed using the DoublePositiveid Xpert Assay. This is a multiplex, real- time reverse transcriptase PCR assay that detects influenza A, influenza B, and respiratory syncytial virus RNA. This assay has been cleared by the [place] Food and Drug Administration, and its performance characteristics have been verified by the [facility] Microbiology Laboratory. Additional sample types have been validated according to CLIA regulations. Interpretive data last revised 2020. COVID-19 RNA Negative Negative [facility] Comment: Interpretive data: Testing performed by [facility] Microbiology Laboratory ([phone]). This test is performed using the CepLeveler Xpert Xpress assay. This is a real-time RT-PCR test intended for the qualitative detection of nucleic acid from the SARS-CoV-2. This assay has been reviewed by the FDA for Emergency Use Authorization (EUA). The performance characteristics have been verified by the [facility] Laboratory. Additional sample types have been validated according to CLIA regulations. Results must be considered in the clinical context and a negative result does not rule out infection. Interpretive data last revised 2020. Employeed in healthcare? No [facility] status? No [facility] Group care resident? No [facility] Hospitalized? No [facility] Is patient in ICU? No [facility] Symptomatic as defined by CDC? Yes [facility] Nasopharyngeal 08/23/2020 6: 32 PM DOCENT COORDINATOR 08/23/2020 6:42 PM DOCENT COORDINATOR Narrative [facility] - 08/23/2020 7:44 PM DOCENT COORDINATOR Date of symptom onset->08/23/20 Known exposure to confirmed or suspected COVID-19 case?->No Michael Tinajero MD LAB MICROBIOLOGY - GENE RAL ORDERABLES Final Result Performing Organization Address City/State/[facility] Co de Phone Number [facility] [facility] [place] [address] * Respiratory pathogen PCR Nasopharyngeal (08/23/2020 6:31 PM DOCENT COORDINATOR) Influenza A RNA Not Detected Not Detected [facility] Influenza B RNA Not Detected Not Detected [facility] RSV RNA Not Detected Not Detected [facility] COVID-19 RNA Not Detected Not Detected [facility] Coronavirus 229E RNA Not Detected Not Detected [facility] Coronavirus HKU1 RNA Not Detected Not Detected [facility] Coronavirus NL63 RNA Not Detected Not Detected [facility] Coronavirus OC43 RNA Not Detected Not Detected [facility] Adenovirus DNA Not Detected Not Detected [facility] Metapneumovirus RNA Not Detected Not Detected [facility] Rhinovirus/Enterov irus RNA Not Detected Not Detected [facility] Parainfluenza 1 RNA Not Detected Not Detected [facility] Parainfluenza 2 RNA Not Detected Not Detected [facility] Parainfluenza 3 RNA Not Detected Not Detected [facility] Parainfluenza 4 RNA Not Detected Not Detected [facility] B. pertussis DNA Not Detected Not Detected [facility] B. parapertussis DNA Not Detected Not Detected [facility] C. pneumoniae DNA Not Detected Not Detected [facility] M. pneumoniae DNA Not Detected Not Detected [facility] Comment: The [employer] FilmArray Respiratory Panel (RP2.1) assay is a multiplexed nucleic acid test capable of simultaneous qualitative detection and identification of multiple respiratory viral and bacterial nucleic acids, including SARS Coronavirus 2 (the causative agent of COVID-19). The following bacteria, viruses and virus subtypes can be identified using the FilmArray RP2 assay: Bordetella pertussis, Bordetella parapertussis, Chlamydophila pneumoniae, Mycoplasma pneumoniae, Adenovirus, SARS Coronavirus 2, seasonal coronaviruses (Coronavirus HKU1, Coronavirus NL63, Coronavirus 229E, and Coronavirus OC43), Influenza A, Influenza A subtype H1, Influenza A subtype H3, Influenza A subtype 2009 H1, Influenza B, Metapneumovirus, Parainfluenza 1, Parainfluenza 2, Parainfluenza 3, Parainfluenza 4, RSV, Rhinovirus/Enterovirus. Due to the genetic similarity between human Rhinovirus and Enterovirus, the FilmArray RP2.1 assay cannot reliably differentiate them. Coronavirus OC43 may cross-react with some isolates of Coronavirus HKU1. ??A dual positive result may be due to cross-reactivity or may indicate a co-infection. The detection and identification of specific viral [...] test. ??Positive results do not rule out infection/co-infection with other organisms. ??The agent(s) detected by the FilmArray RP2.1 may not be the definite cause of disease. ??Additional testing (lab, imaging, etc.) may be necessary when evaluating a patient with possible respiratory tract infection. The FilmArray RP2.1 assay has emergency use authorization from the FDA for testing of STROKE COORDINATOR swabs. ??Additional sample types have been validated according to CLIA regulations. The performance characteristics of this assay have been determined by [facility]. Current interpretive data was last revised on 2020. First COVID-19 test? Unknown [facility] Employeed in healthcare? Unknown [facility] status? Unknown [facility] Group care resident? Unknown [facility] Hospitalized? Unknown [facility] Is patient in ICU? Unknown [facility] Symptomatic as defined by CDC? Unknown [facility] Nasopharyngeal 08/23/2020 6: 31 PM DOCENT COORDINATOR 08/24/2020 12:56 AM DOCENT COORDINATOR us Glenn Thrasher MD LAB MICROBIOLOGY - GENERAL OR DERABLES Final Result [facility] [place] [address] * CT Abdomen Pelvis W Contrast (08/23/2020 6:17 PM DOCENT COORDINATOR) Anatomical Region Laterality Modality Body N/A Computed Tomogra phy 08/23/2020 6:40 PM DOCENT COORDINATOR Impressions 08/23/2020 6:47 PM DOCENT COORDINATOR 1. ??Small to moderate hiatal hernia with changes of aspiration within the right lower lobe, possibly with superimposed aspiration related pneumonia. ??Small right pleural effusion. 2. Linear peripheral areas of hypoattenuation in the right kidney are nonspecific but can be seen in the setting of pyelonephritis or as a sequela prior scarring. Correlate with flank pain and urinalysis. 3. Moderate to severe compression fractures at T11 and T12, new from 05/13/2015. Dictated by: Leonela Louise M.D. The radiology attending physician has personally reviewed this study, and had reviewed and/or edited this written report and agrees with it. Electronically signed by: Vaughn Gusman M.D. Narrative 08/23/2020 6:47 PM DOCENT COORDINATOR EXAMINATION: ??Computed tomography of the abdomen and pelvis with intravenous contrast HISTORY: Altered mental status, left-sided weakness TECHNIQUE: ??Transaxial computed tomographic images of the abdomen and pelvis ??were obtained with intravenous contrast according to the standard protocol after the uneventful administration of 100 mL Opti-Ray 350 intravenous contrast. COMPARISON: CT chest dated 05/13/2015 FINDINGS: ?? Evaluation is somewhat limited by motion artifact. There is a small left pleural effusion. ??Opacification of the right lower lobe can be seen in the setting of aspiration or pneumonia. Adjacent groundglass nodules are likely infectious/inflammatory. There is no pneumothorax. ??The heart is normal in size. The liver is normal in size. ??Multiple hypodense liver lesions are noted bilaterally. ??Some of these lesions represent benign cysts and have increased in size since prior study in 2014. ??Other lesions are too small to definitively characterize. There is no intra or extrahepatic biliary duct dilatation. ??The portal, superior mesenteric, and splenic vein are patent. ??The gallbladder is normal. The spleen, adrenal glands, and pancreas are normal. Linear hypodensities throughout the right kidney are nonspecific but can be seen in the setting of pyelonephritis. There are left-sided nonobstructing renal calculi. ??There is no hydronephrosis. ??Bilateral renal cysts are present. ?? The urinary bladder is normal. ??There is a 4 cm left ovarian cyst and 2.6 cm right ovarian cyst. A hiatal hernia is present. ??Stomach and duodenum are normal. Postoperative changes of sigmoid bowel resection seen. ??There is no evidence of obstruction or inflammation the small bowel or colon. There are scattered colonic diverticula. ??Fat deposition within the wall of the ascending colon can be seen in prior infection. ??There is no pneumoperitoneum or free fluid. There are compression deformities of T12, T11, and to a lesser extent T10. ??There is atherosclerosis of the abdominal aorta. ??There is no mesenteric, retroperitoneal, or pelvic lymphadenopathy. Procedure Note Vaughn Gusman MD - 08/23/2020 EXAMINATION: Computed tomography of the abdomen and pelvis with intravenous contrast HISTORY: Altered mental status, left-sided weakness TECHNIQUE: Transaxial computed tomographic images of the abdomen and pelvis were obtained with intravenous contrast according to the standard protocol after the uneventful administration of 100 mL Opti-Ray 350 intravenous contrast. COMPARISON: CT chest dated 05/13/2015 FINDINGS: Evaluation is somewhat limited by motion artifact. There is a small left pleural effusion. Opacification of the right lower lobe can be seen in the setting of aspiration or pneumonia. Adjacent groundglass nodules are likely infectious/inflammatory. There is no pneumothorax. The heart is normal in size. The liver is normal in size. Multiple hypodense liver lesions are noted bilaterally. Some of these lesions represent benign cysts and have increased in size since prior study in 2014. Other lesions are too small to definitively characterize. There is no intra or extrahepatic biliary duct dilatation. The portal, superior mesenteric, and splenic vein are patent. The gallbladder is normal. The spleen, adrenal glands, and pancreas are normal. Linear hypodensities throughout the right kidney are nonspecific but can be seen in the setting of pyelonephritis. There are left-sided nonobstructing renal calculi. There is no hydronephrosis. Bilateral renal cysts are present. The urinary bladder is normal. There is a 4 cm left ovarian cyst and 2.6 cm right ovarian cyst. A hiatal hernia is present. Stomach and duodenum are normal. Postoperative changes of sigmoid bowel resection seen. There is no evidence of obstruction or inflammation the small bowel or colon. There are scattered colonic diverticula. Fat deposition within the wall of the ascending colon can be seen in prior infection. There is no pneumoperitoneum or free fluid. There are compression deformities of T12, T11, and to a lesser extent T10. There is atherosclerosis of the abdominal aorta. There is no mesenteric, retroperitoneal, or pelvic lymphadenopathy. IMPRESSION: 1. Small to moderate hiatal hernia with changes of aspiration within the right lower lobe, possibly with superimposed aspiration related pneumonia. Small right pleural effusion. 2. Linear peripheral areas of hypoattenuation in the right kidney are nonspecific but can be seen in the setting of pyelonephritis or as a sequela prior scarring. Correlate with flank pain and urinalysis. 3. Moderate to severe compression fractures at T11 and T12, new from 05/13/2015. Dictated by: Leonela Louise M.D. The radiology attending physician has personally reviewed this study, and had reviewed and/or edited this written report and agrees with it. Electronically signed by: Vaughn Gusman M.D. us Michael Tinajero MD IMG CT PROCEDURES Final Result * POCT creatinine (08/23/2020 6:08 PM DOCENT COORDINATOR) Creatinine POC 0.8 0.6 - 1.1 mg/dL [facility] Blood specimen (specimen) 08/23/2020 6:08 PM DOCENT COORDINATOR 08/23/2020 6:08 PM DOCENT COORDINATOR us Notinfile Unknown LAB POCT ORDERABLES - DEVICE F inal Result [facility] [place] [address] * CT Stroke Head WO Contrast (08/23/2020 6:07 PM DOCENT COORDINATOR) Anatomical Region Laterality Modality Head N/A Computed Tomogra phy 08/23/2020 6:15 PM DOCENT COORDINATOR Impressions 08/23/2020 6:26 PM DOCENT COORDINATOR No acute intracranial abnormality. ??MRI is more sensitive for early ischemic changes. Dictated by: Leonela Louise M.D. The radiology attending physician has personally reviewed this study, and had reviewed and/or edited this written report and agrees with it. Electronically signed by: Karina Meier M.D. Narrative 08/23/2020 6:26 PM DOCENT COORDINATOR EXAMINATION: Noncontrast head CT HISTORY: 79-year-old woman with mastoid effusion weakness and confusion. TECHNIQUE: Noncontrast CT of the brain was performed with images acquired from skull base to vertex. COMPARISON: 05/13/2015. FINDINGS: Topogram demonstrates no lytic lesions or fractures. There is no acute intracranial hemorrhage. Ventricles are of normal size and morphology. No mass effect or midline shift is present. The lan-white matter differentiation is normal. There are bilateral lens replacements. The visualized portions of the mastoids are normal. The visualized portions of the paranasal sinuses are normal. No fractures are identified. ??There is calcification of the pineal gland Procedure Note Karina Meier MD - 08/23/2020 EXAMINATION: Noncontrast head CT HISTORY: 79-year-old woman with mastoid effusion weakness and confusion. TECHNIQUE: Noncontrast CT of the brain was performed with images acquired from skull base to vertex. COMPARISON: 05/13/2015. FINDINGS: Topogram demonstrates no lytic lesions or fractures. There is no acute intracranial hemorrhage. Ventricles are of normal size and morphology. No mass effect or midline shift is present. The lan-white matter differentiation is normal. There are bilateral lens replacements. The visualized portions of the mastoids are normal. The visualized portions of the paranasal sinuses are normal. No fractures are identified. There is calcification of the pineal gland IMPRESSION: No acute intracranial abnormality. MRI is more sensitive for early ischemic changes. Dictated by: Leonela Louise M.D. The radiology attending physician has personally reviewed this study, and had reviewed and/or edited this written report and agrees with it. Electronically signed by: Karina Meier M.D. us Agatha Loredo MD IMG CT PROCEDURES Final R esult * Critical Result Callback Chemistry (08/23/2020 5:58 PM DOCENT COORDINATOR) Date Notified [id number] [facility] Time Notified [facility] TestName pH Torsten, pCO2 Torsten [facility] Called/Read Back juan antonio [facility] Credentials MD [facility] Called By cb [facility] Blood specimen (specimen) 08/23/2020 5:58 PM DOCENT COORDINATOR 08/23/2020 6:03 PM DOCENT COORDINATOR Juan Antonio Villarreal MD LAB BLOOD ORDERABLES Final R esult [facility] Department [place] [address] * Differential, auto (08/23/2020 5:58 PM DOCENT COORDINATOR) Neutrophil abs 4.2 1.7 - 6.5 K/cumm [facility] Imm gran abs 0.0 0.0 - 0.1 K/cumm [facility] Lymphocyte abs 2.2 0.8 - 3.3 K/cumm [facility] Monocyte abs 0.7 0.2 - 0.8 K/cumm [facility] Eosinophil abs 0.1 0.0 - 0.5 K/cumm [facility] Basophil abs 0.0 0.0 - 0.1 K/cumm [facility] Neutrophil pct 58.2 % [facility] Comment: Interpretive Data Percent cell count reference ranges are not reported, since discordance with absolute values may lead to misinterpretation of CBC data. Current Interpretive Data was last revised on 2017. Imm gran pct 0.6 % [facility] Comment: Interpretive Data Percent cell count reference ranges are not reported, since discordance with absolute values may lead to misinterpretation of CBC data. Current Interpretive Data was last revised on 2017. Lymphocyte pct 30.6 % [facility] Comment: Interpretive Data Percent cell count reference ranges are not reported, since discordance with absolute values may lead to misinterpretation of CBC data. Current Interpretive Data was last revised on 2017. Monocyte pct 9.2 % [facility] Comment: Interpretive Data Percent cell count reference ranges are not reported, since discordance with absolute values may lead to misinterpretation of CBC data. Current Interpretive Data was last revised on 2017. Eosinophil pct 1.1 % [facility] Comment: Interpretive Data Percent cell count reference ranges are not reported, since discordance with absolute values may lead to misinterpretation of CBC data. Current Interpretive Data was last revised on 2017. Basophil pct 0.3 % [facility] Comment: Interpretive Data Percent cell count reference ranges are not reported, since discordance with absolute values may lead to misinterpretation of CBC data. Current Interpretive Data was last revised on 2017. Blood specimen (specimen) 08/23/2020 5:58 PM DOCENT COORDINATOR 08/23/2020 6:10 PM DOCENT COORDINATOR us Agatha Loredo MD LAB BLOOD ORDERABLES Sandra gu Result [facility] [place] [address] * (ABNORMAL) Blood gas, venous (08/23/2020 5:58 PM DOCENT COORDINATOR) pH, Venous 7.18(C) 7.32 - 7.43 [facility] PCO2, Venous >125(C) 40 - 50 mmHg [facility] PO2, Venous 36 mmHg [facility] Comment: Interpretive Data No Reference Range Established Current Interpretive Data was last revised on 2017. HCO3 Venous, Calculated See Comment [facility] Comment:Unable to calculate exact result. BE, venous See Comment [facility] Comment: Unable to calculate exact result. Interpretive Data No Reference Range Established Current Interpretive Data was last revised on 2017. Blood specimen (specimen) 08/23/2020 5:58 PM DOCENT COORDINATOR 08/23/2020 6:03 PM DOCENT COORDINATOR Narrative [facility] - 08/23/2020 6:18 PM DOCENT COORDINATOR THE COLLECTION LOCATION IS [address] Juan Antonio Villarreal MD LAB BLOOD ORDERABLES Final R esult Performing Organization Address [facility] Co de Phone Number [facility] [place] [address] * Troponin I high-sensitivity series (baseline, 2hr, 4hr, 6hr) (08/23/2020 5:58 PM DOCENT COORDINATOR) [facility] Trop I hs <4 <=17 ng/L [facility] Comment: Interpretive Data [facility] resources including the diagnostic algorithm and an aid in interpretation, copy and paste this link: [email or web address] Current Interpretive Data last revised 2020. Blood specimen (specimen) 08/23/2020 5:58 PM DOCENT COORDINATOR 08/23/2020 6:03 PM DOCENT COORDINATOR Narrative [facility] - 08/23/2020 6:44 PM DOCENT COORDINATOR THE COLLECTION LOCATION IS [address] Agatha Loredo MD LAB BLOOD ORDERABLES Sandra l Result Performing Organization Address [facility] Co de Phone Number [facility] [place] [address] * (ABNORMAL) aPTT (08/23/2020 5:58 PM DOCENT COORDINATOR) [facility] aPTT 24(L) 25 - 37 sec [facility] Comment: Interpretive data Heparin therapeutic range: 60-90 seconds Range based on correlation with therapeutic heparin activity range of 0.3-0.7 units/ml. Current interpretive data was last revised on 2019. Blood specimen (specimen) (Blood, Venous) 08/23/2020 5:58 PM DOCENT COORDINATOR 08/23/2020 6:16 PM DOCENT COORDINATOR Narrative [facility] - 08/23/2020 6:24 PM DOCENT COORDINATOR Potential stroke patient. THE COLLECTION LOCATION IS [address] Agatha Loredo MD LAB BLOOD ORDERABLES Sandra l Result [facility] [place] [address] * (ABNORMAL) CBC with auto differential (08/23/2020 5:58 PM DOCENT COORDINATOR) [facility] WBC 7.2 3.8 - 9.9 K/cumm [facility] Hgb 8.0(L) 11.9 - 15.5 g/dL [facility] Hct 30.5(L) 35.6 - 45.5 % [facility] Plt 275 150 - 400 K/cumm [facility] MPV 9.9 9.1 - 12.3 fL [facility] RBC 3.77(L) 3.90 - 5.20 M/cumm [facility] MCV 80.9(L) 81.3 - 96.4 fL [facility] MCH 21.2(L) 27.1 - 33.3 pg [facility] MCHC 26.2(L) 32.3 - 35.7 g/dL [facility] RDW CV 17.2(H) 11.1 - 14.9 % [facility] RDW SD 50.1(H) 35.7 - 48.1 fL [facility] NRBC abs 0.00 0.00 - 0.01 K/cumm [facility] Blood specimen (specimen) (Blood, Venous) 08/23/2020 5:58 PM DOCENT COORDINATOR 08/23/2020 6:10 PM DOCENT COORDINATOR Narrative [facility] - 08/23/2020 6:20 PM DOCENT COORDINATOR Potential Stroke Patient THE COLLECTION LOCATION IS [address] Agatha Loredo MD LAB BLOOD ORDERABLES Sandra gu Result [facility] [place] [address] * (ABNORMAL) Basic metabolic panel (08/23/2020 5:58 PM DOCENT COORDINATOR) Sodium 145 135 - 145 mmol/L [facility] Potassium, pl 4.6 3.3 - 4.9 mmol/L [facility] Comment:Hemolyzed; Potassium value may be falsely elevated by as much as 0.3-0.5 mmol/L. Suggest redraw and reanalysis. Chloride 102 97 - 110 mmol/L [facility] CO2 44(H) 22 - 32 mmol/L [facility] Comment:Repeated and Verifie d Anion gap <1(L) 2 - 15 mmol/L [facility] BUN 17 8 - 25 mg/dL [facility] Creatinine 0.59(L) 0.60 - 1.10 mg/dL [facility] Glucose 108 70 - 199 mg/dL [facility] Comment: Interpretive Data Fasting glucose >/= [...] interpretive data was last revised 2017. Calcium 9.1 8.5 - 10.3 mg/dL [facility] Blood specimen (specimen) 08/23/2020 5:58 PM DOCENT COORDINATOR 08/23/2020 6:10 PM DOCENT COORDINATOR Narrative [facility] - 08/23/2020 6:47 PM DOCENT COORDINATOR Potential Stroke patient. THE [facility] COLLECTION LOCATION IS [address] us Agatha Loredo MD LAB BLOOD ORDERABLES Sandra l Result Performing Organization Address [facility] Co de Phone Number [facility] [place] [address] * POCT prothrombin time, whole blood (08/23/2020 5:56 PM DOCENT COORDINATOR) PT, POC 10.9 10.6 - 13.5 sec [facility] INR, bld, POC 0.9 0.8 - 1.2 [facility] Blood specimen (specimen) 08/23/2020 5:56 PM DOCENT COORDINATOR 08/23/2020 5:56 PM DOCENT COORDINATOR us Notinfile Unknown LAB POCT ORDERABLES - DEVICE F inal Result Performing Organization Address [facility] de Phone Number [facility] [place] [address] * POCT glucose (08/23/2020 5:56 PM DOCENT COORDINATOR) Glucose, POC 109 70 - 199 mg/dL [facility] Blood specimen (specimen) 08/23/2020 5:56 PM DOCENT COORDINATOR 08/23/2020 5:56 PM DOCENT COORDINATOR us Notinfile Unknown LAB POCT ORDERABLES - DEVICE F inal Result Performing Organization Address [facility] Co de Phone Number [facility] [place] [address] documented in this encounter Visit Diagnoses Diagnosis Acute on chronic respiratory failure with hypoxia and hypercapnia (CMS/HCC) (HCC)- Primary Acute hypercapnic respiratory failure (CMS/HCC) (HCC) COPD exacerbation (HCC) Obstructive chronic bronchitis with exacerbation Encephalopathy acute Unspecified encephalopathy Acute hypercapnic respiratory failure (CMS/HCC) (HCC) Chronic obstructive pulmonary disease with acute exacerbation (HCC) HTN (hypertension) Unspecified essential hypertension Encephalopathy acute Unspecified encephalopathy Acute encephalopathy Iron deficiency anemia Unspecified iron deficiency anemia Thoracic spine fracture (CMS/HCC) (HCC) GERD (gastroesophageal reflux disease) Esophageal reflux Vitamin D deficiency documented in this encounter Administered Medications Inactive Administered Medications - up to 3 most recent administrations Medication Order MAR Action Action Date Dose Rate Site acetaminophen (TYLENOL) tablet 650 mg 650 mg, feeding tube, Every 4 hours PRN, 1st line for pain, fever, Starting on Rossy 08/25/20 at 0225 Given 08/26/2020 10:22 PM DOCENT COORDINATOR 650 mg Given 08/26/2020 12:24 PM DOCENT COORDINATOR 650 mg Given 08/25/2020 4:12 AM DOCENT COORDINATOR 650 mg acetaminophen (TYLENOL) tablet 650 mg 650 mg, oral, Every 4 hours PRN, 1st line for pain, fever, Starting on 08/27/20 at 1034 Given 08/30/2020 5:00 PM DOCENT COORDINATOR 650 mg Given 08/30/2020 9:52 AM DOCENT COORDINATOR 650 mg Given 08/29/2020 8:23 PM DOCENT COORDINATOR 650 mg albuterol 2.5 mg/0.5 mL nebulizer solution - ADS Override Pull Starting on Sat08/23/20 at 1831, For 1 dose, Created by cabinet override albuterol 2.5 mg/0.5 mL nebulizer solution 10 mg 10 mg, nebulization, Once (broadcast correspondent), On Sat08/23/20 at 1831, For 1 dose Given 08/23/2020 6:40 PM DOCENT COORDINATOR 10 mg albuterol 2.5 mg/0.5 mL nebulizer solution 10 mg 10 mg, nebulization, Once (broadcast correspondent), On Sat08/23/20 at 2015, For 1 dose Given 08/23/2020 8:15 PM DOCENT COORDINATOR 10 mg albuterol HFA (PROVENTIL HFA,VENTOLIN HFA,PROAIR HFA) 90 mcg/actuation inhaler 16 puff 16 puff, inhalation, Every 4 hours (broadcast correspondent), First dose (after last modification) on Sat08/24/20 at 0115 Given 08/26/2020 12:35 PM DOCENT COORDINATOR 16 puf fs Given 08/26/2020 9:28 AM DOCENT COORDINATOR 16 puffs Given 08/26/2020 3:13 AM DOCENT COORDINATOR 16 puffs albuterol HFA (PROVENTIL HFA,VENTOLIN HFA,PROAIR HFA) 90 mcg/actuation inhaler 2 puff 2 puff, inhalation, Every 4 hours (broadcast correspondent), First dose (after last modification) on Sat08/27/20 at 0000 Given 08/27/2020 8:22 PM DOCENT COORDINATOR 2 puffs Given 08/27/2020 3:09 PM DOCENT COORDINATOR 2 puffs Given 08/27/2020 11:08 AM DOCENT COORDINATOR 2 puffs albuterol HFA (PROVENTIL HFA,VENTOLIN HFA,PROAIR HFA) 90 mcg/actuation inhaler 2 puff 2 puff, inhalation, Every 4 hours PRN, wheezing, Starting on Sat08/28/20 at 1200, RN TO ADMIN azithromycin (ZITHROMAX) 500 mg/255 mL in sodium chloride 0.9% (premix) 500 mg 500 mg, intravenous, at 255 mL/hr, Administer over 60 Minutes, Once, On Sat08/23/20 at 1907, For 1 dose, Indications: Pneumonia, Community AcquiredIndications:Pneumonia, Community Acquired New Bag 08/23/2020 7:27 PM DOCENT COORDINATOR 500 mg 255 mL/hr azithromycin (ZITHROMAX) 500 mg/255 mL in sodium chloride 0.9% (premix) 500 mg 500 mg, intravenous, at 255 mL/hr, Administer over 60 Minutes, Every 24 hours scheduled, First dose (after last reorder) on Sat08/24/20 at 2100, Indications: Pneumonia, Community AcquiredIndications:Pneumonia, Community Acquired New Bag 08/24/2020 8:06 PM DOCENT COORDINATOR 500 mg 255 mL/hr azithromycin (ZITHROMAX) tablet 500 mg 500 mg, feeding tube, Once, On Sat08/25/20 at 2100, For 1 dose, Indications: COPD Exacerbation, Pneumonia, Community AcquiredIndications:COPD Exacerbation,Pneumonia, Community Acquired Given 08/25/2020 8:38 PM DOCENT COORDINATOR 500 mg benzonatate (TESSALON) capsule 100 mg 100 mg, oral, 3 times daily PRN, cough, Starting on Sat08/29/20 at 2102, Do not crush, chew, cut, dissolve, open or otherwise manipulate tablet/capsule., Indications: CoughIndications:Cough Given 08/29/2020 9:14 PM DOCENT COORDINATOR 100 mg busPIRone (BUSPAR) tablet 10 mg 10 mg, feeding tube, 2 times daily, First dose on Sat08/25/20 at 1400, Indications: Generalized Anxiety DisorderIndications:Generalized Anxiety Disorder Given 08/27/2020 8:26 AM DOCENT COORDINATOR 10 mg Given 08/26/2020 8:38 PM DOCENT COORDINATOR 10 mg Given 08/26/2020 7:33 AM DOCENT COORDINATOR 10 mg busPIRone (BUSPAR) tablet 10 mg 10 mg, oral, 2 times daily, First dose (after last modification) on Sat08/27/20 at 2100, Indications: Generalized Anxiety DisorderIndications:Generalized Anxiety Disorder Given 08/30/2020 9:34 AM DOCENT COORDINATOR 10 mg Given 08/29/2020 8:23 PM DOCENT COORDINATOR 10 mg Given 08/29/2020 9:16 AM DOCENT COORDINATOR 10 mg cefepime (MAXIPIME) 2,000 mg/20 mL in sterile water (premix) 2,000 mg 2,000 mg, intravenous, at 40 mL/hr, Administer over 30 Minutes, Once, On Sat08/23/20 at 1907, For 1 dose, Indications: Pneumonia, Community AcquiredIndications:Pneumonia, Community Acquired New Bag 08/23/2020 7:26 PM DOCENT COORDINATOR 2,000 mg 40 mL/hr cefTRIAXone (ROCEPHIN) 1,000 mg/10 mL in sterile water (premix) 1,000 mg 1,000 mg, intravenous, at 600 mL/hr, Administer over 1 Minutes, Every 24 hours scheduled, First dose on Sat08/24/20 at 2100, Indications: COPD ExacerbationIndications:COPD Exacerbation Given 08/24/2020 8:07 PM DOCENT COORDINATOR 1,000 mg 600 mL/hr cefTRIAXone (ROCEPHIN) 1,000 mg/10 mL in sterile water (premix) 1,000 mg 1,000 mg, intravenous, at 600 mL/hr, Administer over 1 Minutes, Every 24 hours scheduled, First dose (after last modification) on Sat08/25/20 at 2100, For 3 doses, Indications: COPD ExacerbationIndications:COPD Exacerbation Given 08/27/2020 11:42 PM DOCENT COORDINATOR 1,000 mg 600 mL/hr Given 08/26/2020 8:39 PM DOCENT COORDINATOR 1,000 mg 600 mL/hr Given 08/25/2020 8:37 PM DOCENT COORDINATOR 1,000 mg 600 mL/hr chlorhexidine (PERIDEX) 0.12 % solution 15 mL 15 mL, mouth/throat, 2 times daily, First dose on Sat08/24/20 at 0900, Swab all oral surfaces and suction excess. Discontinue Chlorhexidine Gluconate after patient liberated from mechanical ventilation., Indications: Prevention of Ventilator-Associated PneumoniaIndications:Prevention of Ventilator-Associated Pneumonia Given 08/26/2020 7:33 AM DOCENT COORDINATOR 15 mL Given 08/25/2020 8:38 PM DOCENT COORDINATOR 15 mL Given 08/25/2020 9:28 AM DOCENT COORDINATOR 15 mL cholecalciferol (VITAMIN D-3) capsule 2,000 Units 2,000 Units, oral, Daily, First dose on Sat08/28/20 at 0900 Given 08/30/2020 9:34 AM DOCENT COORDINATOR 2,000 Units Given 08/29/2020 9:15 AM DOCENT COORDINATOR 2,000 Units Given 08/28/2020 8:51 AM DOCENT COORDINATOR 2,000 Units dexMEDEtomidine in 0.9% sodium chloride (PRECEDEX) 400 mcg/100 mL (4 mcg/mL) infusion (premix) 0.1-1.5 mcg/kg/hr ? 65 kg (1.625-24.375 mL/hr, rounded to 1.63-24.38 mL/hr), 4 mcg/mL, intravenous, Titrated, Starting on Sat08/24/20 at 0130, Until 08/27/20 at 1010, Initial dose: 0.2 mcg/kg/hr, Titrate: Up/Down, Titrate by: 0.1 mcg/kg/hr, Every: 30 minutes, Goal: RASS, RASS Goal: 0, -1, -2, Routine Rate/Dose Change 08/27/2020 9:00 AM DOCENT COORDINATOR 0.1 mcg/kg/hr 1.63 mL/hr Rate/Dose Change 08/27/2020 8:25 AM DOCENT COORDINATOR 0.2 mcg/kg/hr 3.25 mL/hr Rate/Dose Change 08/27/2020 8:00 AM DOCENT COORDINATOR 0.3 mcg/kg/hr 4.88 mL/hr enoxaparin (LOVENOX) syringe 40 mg 40 mg, subcutaneous, Daily (for enoxaparin), First dose on Sat08/24/20 at 2100, Indications: Deep Vein Thrombosis PreventionIndications:Deep Vein Thrombosis Prevention Given 08/29/2020 8:23 PM DOCENT COORDINATOR 40 mg Left Lower Abdomen Given 08/28/2020 10:06 PM DOCENT COORDINATOR 40 mg R ight Lower Abdomen Given 08/27/2020 8:41 PM DOCENT COORDINATOR 40 mg Le ft Lower Abdomen etomidate (AMIDATE) 2 mg/mL injection - ADS Override Pull Starting on Sat08/23/20 at 2158, For 1 dose, Created by cabinet override etomidate (AMIDATE) injection 30 mg 30 mg, intravenous, Administer over 1 Minutes, Once, On Sat08/23/20 at 2300, For 1 dose Given 08/23/2020 10:30 PM DOCENT COORDINATOR 30 mg fentaNYL (SUBLIMAZE) bolus from bag 100 mcg 100 mcg, intravenous, Once, On Rossy 08/25/20 at 2045, For 1 dose Bolus from Bag 08/25/2020 8:05 PM DOCENT COORDINATOR 100 mcg fentaNYL (SUBLIMAZE) bolus from bag 25 mcg 25 mcg, intravenous, Every 1 hour PRN, 1st line for pain, other, agitation, Starting on Sat08/24/20 at 0121 Bolus from Bag 08/25/2020 4:30 AM DOCENT COORDINATOR 25 mcg Bolus from Bag 08/25/2020 12:29 AM DOCENT COORDINATOR 25 mcg Bolus from Bag 08/24/2020 11:30 PM DOCENT COORDINATOR 25 mcg fentaNYL (SUBLIMAZE) bolus from bag 25 mcg 25 mcg, intravenous, Every 1 hour PRN, other, agitation, Starting on Rossy 08/25/20 at 1955 Bolus from Bag 08/25/2020 11:39 PM DOCENT COORDINATOR 25 mcg Bolus from Bag 08/25/2020 10:52 PM DOCENT COORDINATOR 25 mcg fentaNYL 50 mcg/mL cassette (premix) 12.5-400 mcg/hr (0.25-8 mL/hr), intravenous, Titrated, Starting on Sat08/24/20 at 0015, Initial dose: 50 mcg/hr, Titrate: Up/Down, Titrate by: 25 mcg/hr, Every: 30 minutes, Goal: RASS, RASS Goal: 0, -1 Rate/Dose Verify 08/25/2020 6:00 AM DOCENT COORDINATOR 50 mcg/hr 1 mL/hr Rate/Dose Verify 08/25/2020 5:00 AM DOCENT COORDINATOR 50 mcg/hr 1 mL/hr Rate/Dose Verify 08/25/2020 4:00 AM DOCENT COORDINATOR 50 mcg/hr 1 mL/hr fentaNYL 50 mcg/mL cassette (premix) 12.5-400 mcg/hr (0.25-8 mL/hr), intravenous, Titrated, Starting on Rossy 08/25/20 at 2030, Initial dose: 50 mcg/hr, Titrate: Up/Down, Titrate by: 25 mcg/hr, Every: 30 minutes, Goal: RASS, RASS Goal: 0, -1 Rate/Dose Verify 08/26/2020 6:00 AM DOCENT COORDINATOR 50 mcg/hr 1 mL/hr Rate/Dose Verify 08/26/2020 5:00 AM DOCENT COORDINATOR 50 mcg/hr 1 mL/hr Rate/Dose Verify 08/26/2020 4:00 AM DOCENT COORDINATOR 50 mcg/hr 1 mL/hr ferric gluconate (FERRLECIT) 125 mg of elemental iron in sodium chloride 0.9% 100 mL IVPB 125 mg of elemental iron, intravenous, at 110 mL/hr, Administer over 60 Minutes, Once, On Sat08/24/20 at 2145, For 1 dose, Room temperature only New Bag 08/24/2020 11:20 PM DOCENT COORDINATOR 125 mg of elemental iron 110 mL/hr ferrous sulfate tablet 325 mg 325 mg (65 mg of elemental iron), oral, 2 times daily with meals (bkfst, dinner), First dose on Sat08/28/20 at 0845, Indications: Iron Deficiency AnemiaIndications:Iron Deficiency Anemia Given 08/30/2020 9:34 AM DOCENT COORDINATOR 325 mg Given 08/29/2020 6:32 PM DOCENT COORDINATOR 325 mg Given 08/29/2020 9:15 AM DOCENT COORDINATOR 325 mg fluticasone furoate-vilanteroL (BREO ELLIPTA) 100-25 mcg/dose inhaler 1 puff 1 puff, inhalation, Daily (broadcast correspondent), First dose on Sat08/29/20 at 1315, Rinse mouth with water after use. Do not swallow. Given 08/30/2020 10:19 AM DOCENT COORDINATOR 1 puff furosemide (LASIX) 10 mg/mL injection 20 mg 20 mg, intravenous, Administer over 1 Minutes, Once, On Rossy 08/25/20 at 1130, For 1 dose, Room temperature only Given 08/25/2020 12:45 PM DOCENT COORDINATOR 20 mg haloperidol (HALDOL) injection 5 mg 5 mg, intramuscular, Once, On Rossy 08/25/20 at 2315, For 1 dose, If administered IV push, administer over 5 min for adults Given 08/25/2020 10:52 PM DOCENT COORDINATOR 5 mg Right Deltoid heparin 5,000 unit/mL injection 5,000 Units 5,000 Units, subcutaneous, Every 8 hours scheduled, First dose on Sat08/23/20 at 2200, Indications: Deep Vein Thrombosis PreventionIndications:Deep Vein Thrombosis Prevention Given 08/24/2020 6:00 AM DOCENT COORDINATOR 5,000 Units Right Upper Abdomen Given 08/24/2020 12:02 AM DOCENT COORDINATOR 5,000 Units Right Lower Abdomen hydroCHLOROthiazide (HYDRODIURIL) tablet 12.5 mg 12.5 mg, oral, Daily, First dose on [facility] 08/27/20 at 1045 Given 08/30/2020 9:34 AM DOCENT COORDINATOR 12.5 mg Given 08/29/2020 9:15 AM DOCENT COORDINATOR 12.5 mg Given 08/28/2020 8:51 AM DOCENT COORDINATOR 12.5 mg ioversoL (OPTIRAY 350) syringe syringe 100 mL 100 mL, intravenous, Once in imaging, contrast, Starting on Sat08/23/20 at 1805, For 1 dose Given 08/23/2020 6:05 PM DOCENT COORDINATOR 100 mL ipratropium (ATROVENT HFA) 17 mcg/actuation inhaler 2 puff 2 puff, inhalation, Every 4 hours (broadcast correspondent), First dose (after last modification) on [facility] 08/27/20 at 0000, I /authorizing provider attest that the patient meets the approved [facility] Use Criteria: Yes Given 08/27/2020 8:23 PM DOCENT COORDINATOR 2 puffs Given 08/27/2020 3:10 PM DOCENT COORDINATOR 2 puffs Given 08/27/2020 11:08 AM DOCENT COORDINATOR 2 puffs ipratropium (ATROVENT HFA) 17 mcg/actuation inhaler 2 puff 2 puff, inhalation, Every 4 hours PRN, wheezing, Starting on Sat08/28/20 at 1200, RN TO ADMIN, I /authorizing provider attest that the patient meets the approved [facility] Use Criteria: Yes ipratropium (ATROVENT HFA) 17 mcg/actuation inhaler 8 puff 8 puff, inhalation, Every 4 hours (broadcast correspondent), First dose (after last modification) on Sat08/24/20 at 0115, I /authorizing provider attest that the patient meets the approved [facility] Use Criteria: Yes Given 08/26/2020 12:35 PM DOCENT COORDINATOR 8 puffs Given 08/26/2020 9:29 AM DOCENT COORDINATOR 8 puffs Given 08/26/2020 3:13 AM DOCENT COORDINATOR 8 puffs ipratropium (ATROVENT) 0.02 % nebulizer solution 0.5 mg 0.5 mg, nebulization, Once (broadcast correspondent), On Sat08/23/20 at 1826, For 1 dose Given 08/23/2020 6:40 PM DOCENT COORDINATOR 0.5 mg Lactated Ringer's (LR) bolus 500 mL 500 mL, intravenous, at 250 mL/hr, Administer over 2 Hours, Once, On Sat08/24/20 at 0845, For 1 dose New Bag 08/24/2020 8:32 AM DOCENT COORDINATOR 500 mL 250 mL/hr LORazepam (ATIVAN) 2 mg/mL injection - ADS Override Pull Starting on Sat08/25/20 at 0435, For 1 dose, Created by cabinet override For IV administration, dilute with equal volume of 0.9% sodium chloride. Do not exceed a rate of 2 mg/minute LORazepam (ATIVAN) injection 1 mg 1 mg, intravenous, Once, On Sat08/25/20 at 0515, For 1 dose, For IV administration, dilute with equal volume of 0.9% sodium chloride. Do not exceed a rate of 2 mg/minute Given 08/25/2020 4:39 AM DOCENT COORDINATOR 1 mg LORazepam (ATIVAN) tablet 1 mg 1 mg, feeding tube, 2 times daily PRN, anxiety, Starting on Rossy 08/25/20 at 1327 Given 08/25/2020 2:14 PM DOCENT COORDINATOR 1 mg LORazepam (ATIVAN) tablet 1 mg 1 mg, feeding tube, Every 4 hours PRN, anxiety, Starting on [place] 08/25/20 at 1930 Given 08/26/2020 6:41 AM DOCENT COORDINATOR 1 mg Given 08/26/2020 3:17 AM DOCENT COORDINATOR 1 mg Given 08/25/2020 8:38 PM DOCENT COORDINATOR 1 mg LORazepam (ATIVAN) tablet 1 mg 1 mg, oral, Every 8 hours, First dose on Sat08/26/20 at 1115 Given 08/26/2020 11:54 AM DOCENT COORDINATOR 1 mg LORazepam (ATIVAN) tablet 1 mg 1 mg, oral, Every 8 hours PRN, anxiety, Starting on Sat08/26/20 at 1645 Given 08/26/2020 8:38 PM DOCENT COORDINATOR 1 mg LORazepam (ATIVAN) tablet 1 mg 1 mg, oral, Nightly PRN, anxiety, Starting on Sat08/27/20 at 1015 Given 08/28/2020 10:06 PM DOCENT COORDINATOR 1 mg Given 08/27/2020 10:18 PM DOCENT COORDINATOR 1 mg Given 08/27/2020 12:43 PM DOCENT COORDINATOR 1 mg magnesium sulfate 2 g/50 mL in water (premix) 2 g 2 g, intravenous, Administer over 60 Minutes, Once, On Sat08/23/20 at 1826, For 1 dose New Bag 08/23/2020 6:53 PM DOCENT COORDINATOR 2 g magnesium sulfate 2 g/50 mL in water (premix) 2 g 2 g, intravenous, Administer over 60 Minutes, Once, On Sat08/26/20 at 0730, For 1 dose New Bag 08/26/2020 7:33 AM DOCENT COORDINATOR 2 g methylPREDNISolone sodium succinate (SOLU-medrol) preservative free injection 125 mg 125 mg, intravenous, Administer over 3 Minutes, Once, On Sat08/23/20 at 1837, For 1 dose Given 08/23/2020 6:52 PM DOCENT COORDINATOR 125 mg metoprolol tartrate (LOPRESSOR) immediate release tablet 25 mg 25 mg, oral, Once, On Sat08/27/20 at 2015, For 1 dose Given 08/27/2020 8:41 PM DOCENT COORDINATOR 25 mg metoprolol XL (TOPROL-XL) extended release tablet 100 mg 100 mg, oral, Daily, First dose on Sat08/28/20 at 0900, Tablets that are scored may be split, but do not crush, chew, dissolve, open or otherwise manipulate tablet/capsule. Given 08/30/2020 9:34 AM DOCENT COORDINATOR 100 mg Given 08/29/2020 9:16 AM DOCENT COORDINATOR 100 mg Given 08/28/2020 8:51 AM DOCENT COORDINATOR 100 mg midazolam (VERSED) 1 mg/mL injection - ADS Override Pull Starting on Sat08/23/20 at 2216, For 1 dose, Created by cabinet override midazolam (VERSED) 1 mg/mL injection 3 mg 3 mg, intravenous, Once, On Sat08/23/20 at 2300, For 1 dose Given 08/23/2020 10:30 PM DOCENT COORDINATOR 3 mg montelukast (SINGULAIR) tablet 10 mg 10 mg, feeding tube, Nightly, First dose on Sat08/24/20 at 2100 Given 08/26/2020 8:38 PM DOCENT COORDINATOR 10 mg Given 08/25/2020 8:38 PM DOCENT COORDINATOR 10 mg Given 08/24/2020 8:06 PM DOCENT COORDINATOR 10 mg montelukast (SINGULAIR) tablet 10 mg 10 mg, oral, Nightly, First dose (after last modification) on Sat08/27/20 at 2100 Given 08/29/2020 8:23 PM DOCENT COORDINATOR 10 mg Given 08/28/2020 10:06 PM DOCENT COORDINATOR 10 mg Given 08/27/2020 8:41 PM DOCENT COORDINATOR 10 mg ondansetron (ZOFRAN) injection 4 mg 4 mg, intravenous, Administer over 2 Minutes, Once, On Sat08/23/20 at 1823, For 1 dose Given 08/23/2020 6:27 PM DOCENT COORDINATOR 4 m g ondansetron ODT (ZOFRAN-ODT) disintegrating tablet 4 mg 4 mg, oral, 4 times daily PRN, nausea, vomiting, Starting on Sat08/28/20 at 0618 Given 08/28/2020 6:30 AM DOCENT COORDINATOR 4 mg oxyCODONE (ROXICODONE) tablet 5 mg 5 mg, feeding tube, Every 6 hours, First dose on Sat08/26/20 at 1115, Indications: PainIndications:Pain Given 08/26/2020 11:54 AM DOCENT COORDINATOR 5 mg oxyCODONE (ROXICODONE) tablet 5 mg 5 mg, feeding tube, Every 6 hours PRN, breakthrough pain, Starting on Sat08/26/20 at 1630, Indications: PainIndications:Pain Given 08/26/2020 10:22 PM DOCENT COORDINATOR 5 m g oxyCODONE (ROXICODONE) tablet 5 mg 5 mg, feeding tube, Every 6 hours, First dose (after last modification) on Sat08/27/20 at 0800, Indications: PainIndications:Pain Given 08/27/2020 8:32 AM DOCENT COORDINATOR 5 mg oxyCODONE (ROXICODONE) tablet 5 mg 5 mg, feeding tube, 4 times daily PRN, 2nd line for pain, Starting on Sat08/27/20 at 1015, Indications: PainIndications:Pain Given 08/29/2020 1:35 PM DOCENT COORDINATOR 5 mg Given 08/28/2020 6:25 PM DOCENT COORDINATOR 5 mg Given 08/27/2020 6:50 PM DOCENT COORDINATOR 5 mg pantoprazole (PROTONIX) injection 40 mg 40 mg, intravenous, Administer over 2 Minutes, Daily, First dose (after last modification) on Sat08/24/20 at 0845, For IV Push administration for adults- 40 mg vial: add 10 mL of sodium chloride 0.9% to achieve a final concentration of 4 mg/mL, Indications: Stress Ulcer ProphylaxisIndications:Stress Ulcer Prophylaxis Given 08/29/2020 9:16 AM DOCENT COORDINATOR 40 mg Given 08/28/2020 8:51 AM DOCENT COORDINATOR 40 mg Given 08/27/2020 8:25 AM DOCENT COORDINATOR [address] (PROTONIX) extended release tablet 40 mg 40 mg, oral, Daily, First dose on Sat08/30/20 at 0900, Do not crush, chew, cut, dissolve, open or otherwise manipulate tablet/capsule., Indications: Stress Ulcer ProphylaxisIndications:Stress Ulcer Prophylaxis Given 08/30/2020 9:34 AM DOCENT COORDINATOR 40 mg polyethylene glycol (MIRALAX) packet 17 g 17 g, feeding tube, Daily, First dose (after last modification) on Sat08/24/20 at 0900, Indications: constipationIndications:constipation Given 08/27/2020 8:26 AM DOCENT COORDINATOR 17 g Given 08/24/2020 8:33 AM DOCENT COORDINATOR 17 g polyethylene glycol (MIRALAX) packet 17 g 17 g, oral, 2 times daily, First dose (after last modification) on Sat08/27/20 at 2100, Indications: constipationIndications:constipation Given 08/28/2020 8:52 AM DOCENT COORDINATOR 17 g Given 08/27/2020 8:41 PM DOCENT COORDINATOR 17 g potassium chloride (KLOR-CON) packet 40 mEq 40 mEq, feeding tube, Every 4 hours, First dose on Sat08/26/20 at 0200, For 2 doses, Total dose = 80 mEq. Recommend to dilute each 15 mL with at least 6 ounces of water or juice prior to administration. Dissolve one packet in at least 120 mL of cold water or other beverage prior to administration. Given 08/26/2020 5:52 AM DOCENT COORDINATOR 40 m Eq Given 08/26/2020 3:17 AM DOCENT COORDINATOR 40 mEq potassium chloride 40 mEq/520 mL in sodium chloride 0.9% (premix) 40 mEq 40 mEq, intravenous, at 130 mL/hr, Administer over 4 Hours, Once, On Sat08/28/20 at 0700, For 1 dose, Indications: hypokalemiaIndications:hypokalemi a New Bag 08/28/2020 8:52 AM DOCENT COORDINATOR 40 mEq 130 mL/hr potassium chloride ER (KLOR-CON) extended release tablet 40 mEq 40 mEq, oral, Every 4 hours, First dose on Sat08/28/20 at 0900, For 2 doses, Total dose = 80 mEq Do not crush, chew, cut, dissolve, open or otherwise manipulate tablet/capsule. Given 08/28/2020 8:51 AM DOCENT COORDINATOR 40 mEq potassium, sodium phosphates (PHOS-NAK) 280-160-250 mg packet 1 packet 1 packet, feeding tube, 3 times daily before meals, First dose on Sat08/24/20 at 1130, For 3 doses, Each packet contains 250 mg elemental phosphorus. Each packet contains: elemental phosphorus 250 mg (8 mmol) and potassium 7.1 mEq Given 08/25/2020 9:29 AM DOCENT COORDINATOR 1 packet Given 08/24/2020 5:35 PM DOCENT COORDINATOR 1 packet Given 08/24/2020 11:18 AM DOCENT COORDINATOR 1 packet predniSONE (DELTASONE) tablet 40 mg 40 mg, feeding tube, Daily, First dose (after last modification) on 08/27/20 at 0900, For 2 doses Given 08/27/2020 8:26 AM DOCENT COORDINATOR 40 mg predniSONE (DELTASONE) tablet 40 mg 40 mg, oral, Daily, First dose (after last modification) on Sat08/28/20 at 0900, For 1 dose Given 08/28/2020 8:51 AM DOCENT COORDINATOR 40 mg predniSONE (DELTASONE) tablet 60 mg 60 mg, feeding tube, Daily, First dose (after last modification) on Sat08/24/20 at 0900, For 5 doses Given 08/26/2020 7:33 AM DOCENT COORDINATOR 60 mg Given 08/25/2020 9:27 AM DOCENT COORDINATOR 60 mg Given 08/24/2020 8:32 AM DOCENT COORDINATOR 60 mg propofol (DIPRIVAN) 10 mg/mL infusion 5-50 mcg/kg/min ? 65 kg (1.95-19.5 mL/hr), 10 mg/mL, intravenous, Titrated, Starting on Sat08/23/20 at 2300, Until Sat08/24/20 at 0802, Initial dose: 10 mcg/kg/min, Titrate: Up/Down, Titrate by: 10 mcg/kg/min, Every: 10 minutes, Goal: RASS, RASS Goal: 0, Do not administer through the same I.V. catheter with blood or plasma. Tubing and any unused portions of propofol vials should be discarded after 12 hours. Room temperature only, Routine Rate/Dose Change 08/24/2020 1:00 AM DOCENT COORDINATOR 20 mcg/kg/min 7.8 mL/hr Rate/Dose Change 08/24/2020 12:52 AM DOCENT COORDINATOR 30 mcg/kg/min 11. 7 mL/hr Rate/Dose Change 08/24/2020 12:00 AM DOCENT COORDINATOR 40 mcg/kg/min 15. 6 mL/hr propofoL (DIPRIVAN) 10 mg/mL IV - ADS Override Pull Starting on Sat08/23/20 at 2217, For 1 dose, Created by cabinet override Room temperature only QUEtiapine (SEROquel) tablet 25 mg 25 mg, oral, Nightly, First dose on Sat08/25/20 at 2100 Given 08/25/2020 8:38 PM DOCENT COORDINATOR 25 mg ramelteon (ROZEREM) tablet 8 mg 8 mg, oral, Nightly PRN, sleep, Starting on Sat08/24/20 at 2317, Indications: Sleep-Onset InsomniaIndications:Sleep-Onset Insomnia Given 08/26/2020 10:27 PM DOCENT COORDINATOR 8 mg Given 08/25/2020 8:38 PM DOCENT COORDINATOR 8 mg Given 08/24/2020 11:36 PM DOCENT COORDINATOR 8 mg rocuronium (ZEMURON) 10 mg/mL injection - ADS Override Pull Starting on Sat08/23/20 at 2200, For 1 dose, Created by cabinet override WARNING: Causes respiratory paralysis. Patient must be ventilated. rocuronium (ZEMURON) injection 70 mg 70 mg, intravenous, Once, On Sat08/23/20 at 2300, For 1 dose, Patient should receive adequate sedative/anesthetic agent before a paralytic agent is administered. WARNING: Causes respiratory paralysis. Patient must be ventilated. , Indications: Muscle RelaxationIndications:Muscle Relaxation Given 08/23/2020 10:30 PM DOCENT COORDINATOR 70 mg senna-docusate (PERICOLACE) 8.6-50 mg per tablet 1 tablet 1 tablet, feeding tube, 2 times daily PRN, constipation, Starting on Sat08/24/20 at 0814 Given 08/27/2020 12:13 PM DOCENT COORDINATOR 1 tablet sodium chloride 0.9% IVPB 0-250 mL 0-250 mL, intravenous, Once, On Sat08/24/20 at 2145, For 1 dose, Prime blood tubing and administer amount needed to clear line (usually 50-100 mL) after transfusion complete. New Bag 08/24/2020 10:06 PM DOCENT COORDINATOR 250 mL umeclidinium (INCRUSE ELLIPTA) 62.5 mcg/actuation inhaler 62.5 mcg 62.5 mcg (1 puff), inhalation, Daily (broadcast correspondent), First dose on Sat08/29/20 at 1315 Given 08/30/2020 10:19 AM DOCENT COORDINATOR 62.5 mcg vancomycin 1,000 mg/200 mL in dextrose 5% (premix) 1,000 mg 1,000 mg (rounded from 1,062 mg = 15 mg/kg ? 70.8 kg), intravenous, Administer over 60 Minutes, Once, On Sat08/23/20 at 1907, For 1 dose, Indications: Pneumonia, Community Acquired, SepsisIndications:Pneumonia, Community Acquired,Sepsis New Bag 08/23/2020 7:34 PM DOCENT COORDINATOR 1,000 mg white petrolatum-mineral oil (REFRESH PM) eye ointment each eye, 2 times daily, First dose on Sat08/24/20 at 0900, Indications: Dry EyeIndications:Dry Eye Given 08/24/2020 8:32 AM DOCENT COORDINATOR documented in this encounter Discontinued Medications Medication Sig Discontinue Reason Start Date End Da te oxyCODONE (ROXICODONE) 5 mg immediate release tabletIndications:Pain Take 1 tablet (5 mg total) by mouth every 4 (four) hours as needed (2nd line for pain) Stop Taking at Discharge 08/29/2020 08/30/2020 polyethylene glycol (MIRALAX) 17 gram packetIndications:madonna jensen Take 1 packet (17 g total) by mouth 2 (two) times a day Stop Taking at Discharge 08/29/2020 08/30/2020 hydroCHLOROthiazide (HYDRODIURIL) 12.5 mg tablet Take 1 tablet (12.5 mg total) by mouth daily 08/30/2020 08/30/2020 busPIRone (BUSPAR) 10 mg tabletIndications:Genera lized Anxiety Disorder Take 1 tablet (10 mg total) by mouth 2 (two) times a day 08/29/2020 08/30/2020 montelukast (SINGULAIR) 10 mg tablet Take 1 tablet (10 mg total) by mouth nightly 08/29/2020 08/30/2020 metoprolol XL (TOPROL-XL) 100 mg 24 hr tablet Take 1 tablet (100 mg total) by mouth daily 08/30/2020 08/30/2020 ondansetron ODT (ZOFRAN-ODT) 4 mg disintegrating tablet Take 1 tablet (4 mg total) by mouth 4 (four) times a day as needed for nausea or vomiting 08/29/2020 08/30/2020 ferrous sulfate 325 mg (65 mg of elemental iron) tabletIndications:Iron Deficiency Anemia Take 1 tablet (325 mg total) by mouth 2 (two) times a day with meals 08/29/2020 08/30/2020 cholecalciferol (VITAMIN D-3) 2000 unit capsule Take 1 capsule (2,000 Units total) by mouth daily 08/30/2020 08/30/2020 albuterol HFA (PROVENTIL HFA,VENTOLIN HFA,PROAIR HFA) 90 mcg/actuation inhaler Inhale 2 puffs every 4 (four) hours as needed for wheezing 08/29/2020 08/30/2020 ipratropium (ATROVENT HFA) 17 mcg/actuation inhaler Inhale 2 puffs every 4 (four) hours as needed for wheezing 08/29/2020 08/30/2020 umeclidinium (INCRUSE ELLIPTA) 62.5 mcg/actuation blister with device Inhale 1 puff (62.5 mcg total) daily 08/29/2020 08/30/2020 fluticasone furoate-vilanteroL (BREO ELLIPTA) 100-25 mcg/dose diskus inhaler Inhale 1 puff daily Rinse mouth with water after use. Do not swallow. 08/29/2020 08/30/[address] (PROTONIX) 40 mg EC tabletIndications:Stress Ulcer Prophylaxis Take 1 tablet (40 mg total) by mouth daily 08/30/2020 08/30/2020 documented as of this encounter Active and Recently Administered Medications Times are shown in DOCENT COORDINATOR. Scheduled Medication Order 08/28/2020 08/29/2020 08/30/2020 busPIRone (BUSPAR) tablet 10 mg 10 mg, oral, 2 times daily, First dose (after last modification) on Sat08/27/20 at 2100, Indications: Generalized Anxiety Disorder 0851 (Given - Provider: Sherrill Rocha RN)220 (Given - Provider: Stephenie Kimbrough RN) 0916 (Given - Provider: Delia Quiros RN)2022 (Given - Provider: Juan A Noel RN) 0934 (Given - Provider: Sherrill Rocha RN) cholecalciferol (VITAMIN D-3) capsule 2,000 Units 2,000 Units, oral, Daily, First dose on Sat08/28/20 at 0900 0851 (Given - Provider: Sherrill Rocha RN) 0915 (Given - Provider: Delia Quiros RN) 0934 (Given - Provider: Sherrill Rocha RN) enoxaparin (LOVENOX) syringe 40 mg 40 mg, subcutaneous, Daily (for enoxaparin), First dose on Sat08/24/20 at 2100, Indications: Deep Vein Thrombosis Prevention 220 (Given - Provider: Stephenie Kimbrough RN) 2022 (Given - Provider: Juan A Noel RN) ferrous sulfate tablet 325 mg 325 mg (65 mg of elemental iron), oral, 2 times daily with meals (bkfst, dinner), First dose on 08/28/20 at 0845, Indications: Iron Deficiency Anemia 0851 (Given - Provider: Sherrill Rocha RN)1715 (Given - Provider: Sherrill Rocha RN) 0915 (Given - Provider: Delia Quiros RN)1832 (Given - Provider: Delia Quiros RN) 0934 (Given - Provider: Sherrill Rocha RN)1800 (Due) fluticasone furoate-vilanteroL (BREO ELLIPTA) 100-25 mcg/dose inhaler 1 puff 1 puff, inhalation, Daily (broadcast correspondent), First dose on 08/29/20 at 1315, Rinse mouth with water after use. Do not swallow. 1315 (Due) 1019 (Given - Provider: Gab Carbone, LOG SCALER) hydroCHLOROthiazide (HYDRODIURIL) tablet 12.5 mg 12.5 mg, oral, Daily, First dose on 08/27/20 at 1045 0851 (Given - Provider: Sherrill Rocha RN) 0915 (Given - Provider: Delia Quiros RN) 0934 (Given - Provider: Sherrill Rocha RN) metoprolol XL (TOPROL-XL) extended release tablet 100 mg 100 mg, oral, Daily, First dose on 08/28/20 at 0900, Tablets that are scored may be split, but do not crush, chew, dissolve, open or otherwise manipulate tablet/capsule. 0851 (Given - Provider: Sherrill Rocha RN) 0916 (Given - Provider: Delia Quiros RN) 0934 (Given - Provider: Sherrill Rocha RN) montelukast (SINGULAIR) tablet 10 mg 10 mg, oral, Nightly, First dose (after last modification) on 08/27/20 at 2100 2206 (Given - Provider: Stephenie Kimbrough RN) 2023 (Given - Provider: Juan A Noel RN) pantoprazole (PROTONIX) injection 40 mg (CANCELED) 40 mg, intravenous, Administer over 2 Minutes, Daily, First dose (after last modification) on Sat08/24/20 at 0845, For IV Push administration for adults- 40 mg vial: add 10 mL of sodium chloride 0.9% to achieve a final concentration of 4 mg/mL, Indications: Stress Ulcer Prophylaxis 0851 (Given - Provider: Sherrill Rocha RN) 0916 (Given - Provider: Delia Quiros, JUAN) pantoprazole DR (PROTONIX) extended release tablet 40 mg 40 mg, oral, Daily, First dose on Sat08/30/20 at 0900, Do not crush, chew, cut, dissolve, open or otherwise manipulate tablet/capsule., Indications: Stress Ulcer Prophylaxis 0934 (Given - Provider: Sherrill Rocha RN) polyethylene glycol (MIRALAX) packet 17 g 17 g, oral, 2 times daily, First dose (after last modification) on Sat08/27/20 at 2100, Indications: constipation 0852 (Given - Provider: Sherrill Rocha RN)2206 (Not Given - Provider: Stephenie Kimbrough RN - Reason: Patient/family refused) 0916 (Not Given - Provider: Delia Quiros RN - Reason: Patient/family refused)2023 (Not Given - Provider: Juan A Noel RN - Reason: Patient/family refused - Comment: pt educated on importance of taking the med) 0933 (Not Given - Provider: Sherrill Rocha RN - Reason: Patient/family refused) potassium chloride 40 mEq/520 mL in sodium chloride 0.9% (premix) 40 mEq (COMPLETED) 40 mEq, intravenous, at 130 mL/hr, Administer over 4 Hours, Once, On Sat08/28/20 at 0700, For 1 dose, Indications: hypokalemia 0852 (New Bag - Provider: Sherrill Rocha RN) potassium chloride ER (KLOR-CON) extended release tablet 40 mEq () 40 mEq, oral, Every 4 hours, First dose on Sat08/28/20 at 0900, For 2 doses, Total dose = 80 mEq Do not crush, chew, cut, dissolve, open or otherwise manipulate tablet/capsule. 0851 (Given - Provider: Sherrill Rocha RN)1300 (Due) predniSONE (DELTASONE) tablet 40 mg (COMPLETED) 40 mg, oral, Daily, First dose (after last modification) on 08/28/20 at 0900, For 1 dose 0851 (Given - Provider: Sherrill Rocha RN) umeclidinium (INCRUSE ELLIPTA) 62.5 mcg/actuation inhaler 62.5 mcg 62.5 mcg (1 puff), inhalation, Daily (broadcast correspondent), First dose on 08/29/20 at 1315 1315 (Due) 1019 (Given - Provider: Gab Carbone, LOG SCALER) PRN Medication Order 08/28/2020 08/29/2020 08/30/2020 acetaminophen (TYLENOL) tablet 650 mg 650 mg, oral, Every 4 hours PRN, 1st line for pain, fever, Starting on 08/27/20 at 1034 0911 (Given - Provider: Sherrill Rocha RN) 1335 (Given - Provider: Delia Quiros RN)2023 (Given - Provider: Juan A Noel RN) 0952 (Given - Provider: Sherrill Rocha RN)1700 (Given - Provider: Sherrill Rocha RN) albuterol HFA (PROVENTIL HFA,VENTOLIN HFA,PROAIR HFA) 90 mcg/actuation inhaler 2 puff 2 puff, inhalation, Every 4 hours PRN, wheezing, Starting on 08/28/20 at 1200, RN TO ADMIN benzonatate (TESSALON) capsule 100 mg 100 mg, oral, 3 times daily PRN, cough, Starting on 08/29/20 at 2102, Do not crush, chew, cut, dissolve, open or otherwise manipulate tablet/capsule., Indications: Cough 2113 (Given - Provider: Juan A Noel RN) ipratropium (ATROVENT HFA) 17 mcg/actuation inhaler 2 puff 2 puff, inhalation, Every 4 hours PRN, wheezing, Starting on 08/28/20 at 1200, RN TO ADMIN, I /authorizing provider attest that the patient meets the approved [facility] Use Criteria: Yes LORazepam (ATIVAN) tablet 1 mg (CANCELED) 1 mg, oral, Nightly PRN, anxiety, Starting on 08/27/20 at 1015 2206 (Given - Provider: Stephenie Kimbrough RN) ondansetron ODT (ZOFRAN-ODT) disintegrating tablet 4 mg 4 mg, oral, 4 times daily PRN, nausea, vomiting, Starting on Sat08/28/20 at 0618 0630 (Given - Provider: Gurvinder Morales RN) 0300 (Not Given - Provider: Juan A Noel RN - Reason: Other - Comment: pt verbalised being nauseated, RN offered zofran, upon presentaion pt denied nausea.) oxyCODONE (ROXICODONE) tablet 5 mg (CANCELED) 5 mg, feeding tube, 4 times daily PRN, 2nd line for pain, Starting on 08/27/20 at 1015, Indications: Pain 1825 (Given - Provider: Sherrill Rocha RN) 1335 (Given - Provider: Delia Quiros RN) senna-docusate (PERICOLACE) 8.6-50 mg per tablet 1 tablet 1 tablet, feeding tube, 2 times daily PRN, constipation, Starting on Sat08/24/20 at 0814 documented in this encounter Orders Medications Ordered That Juan ht Not Have Been Administered Count Last Ordered Date First Ordered Date albuterol HFA (PROVENTIL HFA ,VENTOLIN HFA,PROAIR HFA) 90 mcg/actuation inhaler 2 puff 3 08/28/2020 08/23/2020 ipratropium (ATROVENT HFA) 1 7 mcg/actuation inhaler 2 puff 2 08/28/2020 08/27/2020 LORazepam (ATIVAN) tablet 1 mg 1 08/27/2020 polyethylene glycol (MIRALAX) packet 17 g 2 08/27/2020 08/23/2020 fentaNYL (SUBLIMAZE) preserv ative free injection 100 mcg 1 08/25/2020 albuterol 2.5 mg/0.5 mL nebu lizer solution 2.5 mg 2 08/24/2020 08/23/2020 albuterol HFA (PROVENTIL HFA ,VENTOLIN HFA,PROAIR HFA) 90 mcg/actuation inhaler 16 puff 1 08/24/2020 albuterol HFA (PROVENTIL HFA ,VENTOLIN HFA,PROAIR HFA) 90 mcg/actuation inhaler 8 puff 1 08/24/2020 ipratropium (ATROVENT HFA) 1 7 mcg/actuation inhaler 8 puff 1 08/24/2020 ipratropium (ATROVENT) 0.02 % nebulizer solution 0.5 mg 2 08/24/2020 08/23/2020 pantoprazole (PROTONIX) injection 40 mg 1 0 08/24/2020 potassium phosphates 11 mmol in sodium chloride 0.9% 250 mL IVPB 1 08/24/2020 predniSONE (DELTASONE) tablet 60 mg 1 08/24 propofol (DIPRIVAN) 10 mg/mL infusion 1 senna-docusate (PERICOLACE) 8.6-50 mg per tablet 1 tablet 1 08/24/2020 methylPREDNISolone sodium lopez ccinate (SOLU-medrol) preservative free injection 71.875 mg 1 08/23/2020 phenylephrine (MARTINA-SYNEPHRIN E) 1 mg/10 mL (100 mcg/mL) in sodium chloride 0.9% (premix) - ADS Override Pull 1 08/23/2020 Lab Orders Without Results Count Last Ordered D ate First Ordered Date T3, FREE 1 08/24/2020 T4, FREE 1 08/24/2020 POCT CREATININE - DEVICE 1 08/23/2020 POCT GLUCOSE DEVICE 1 08/23/2020 POCT LACTATE - DEVICE 1 08/23/2020 POCT PROTHROMBIN TIME, WHOLE BLOOD 1 2020 RESPIRATORY PATHOGEN PCR PANEL 1 08/23/2020 Imaging Orders Without Results Count Last Order ed Date First Ordered Date RT COMMUNICATION 1 08/25/2020 EKG Orders Without Results Count Last Ordered D ate First Ordered Date ECG 12-LEAD 1 08/30/2020 Diet Count Last Ordered Date First Orde red Date ADULT DISCHARGE DIET 1 08/30/2020 Nursing Count Last Ordered Date First Orde red Date DISCHARGE CALL PROVIDER 8 08/30/2020 DISCHARGE INSTRUCTIONS 2 08/30/2020 CARDIORESPIRATORY MONITOR 1 08/23/2020 INSERT GUERRERO CATHETER 1 08/23/2020 MISCELLANEOUS NURSING CARE ORDER (SPECIFY) 1 08/23/2020 WEIGH PATIENT 2 08/23/2020 Consult Count Last Ordered Date First Orde red Date IP CONSULT TO SOCIAL WORK 1 08/28/2020 PHARMACY COMMUNICATION 1 08/27/2020 IP CONSULT TO NEUROLOGY 1 08/23/2020 IV Count Last Ordered Date First Orde red Date SALINE LOCK IV 2 08/23/2020 ADT Patient Update Count Last Ordered Date Firs t Ordered Date ED IP DECISION TO ADMIT 1 08/23/2020 documented in this encounter Additional Health Concerns Infection Onset Date Last Indicated Resolved Time COVID: Suspected 08/23/2020 08/23/2020 08/23/2020 7:45 PM DOCENT COORDINATOR Respiratory Infection (JOSE), contact + droplet Comment:Automatically added due to negative COVID-19 result. Patient classified as High Risk for COVID-19 by the Medical Triage Attending. There is a significant event note with an alternative diagnosis and at least one negative COVID-19 test documented in Epic. Patient meets criteria for COVID-19 isolation discontinuation. Mary Otero RN 08/24/2020 08/23/2020 08/23/2020 08/24/2020 1:[address] documented as of this encounter Care Teams On Site Property Manager Relationship Specialty Start Date End Date Jason Wiggins MD [address] [place] [address] 1 [place] [address] PCP - General Internal Medicine 09/18/18 08/24/20 Eusebio Nagy MD [address] [place] [address] 1 [place] [address] PCP - General Internal Medicine 08/25/20 08/26/20 Jason Wiggins MD [address] [place] [address] 1 [place] [address] PCP - General 08/27/20 12/20/20 documented as of this encounter
--- OUTSIDE RECORDS SUMMARY | 2024-08-05 02:36 | XMS_ITS | Clinical Summary ---
Author Organization Unknown Care Team Providers Care Aluminizer Name Role Phone HODA MCINTYRE, LINDA Unavailable Unavailable TRINY RN, MARGARET Unavailable Unavailable FAVIOLA PT, ANGELA Unavailable Unavailable BALDOMERO HOUSEHOLD REFRIGERATOR MECHANIC, ALEXANDRA Unavailable Unavailable QUYNH HOUSEHOLD REFRIGERATOR MECHANIC, PABLITO Unavailable Unavailabl e ASHLEY OT, DESIRE RODRIGUEZELLE Unavailable Unavai jeanette CELESTE/HOLLY FOLEY Unavailable Unavail able Payers Payer Name Policy Type Policy Number Effective Date Expira tion Date [facility].NOAUT [id number] Problems Condition Name Condition Details Condition Category [...] 25 mg tablet 09-29 00:00: 00 Yes [id number] 1 tablet DAILY 1 tablet DAILY (route: oral) Alternate Route: BY MOUTH. Med Classific ation: Central Nervous System Agents Aspirin Low Dose 81 mg tablet,david yed release 09-29 00:00: 00 Yes [id number] 1 tablet DAILY 1 tablet DAILY (route: oral) Alternate Route: BY MOUTH. Med Classific ation: Hematolog ical Agents buspirone 10 mg tablet 09-29 00:00: 00 Yes [id number] 1 tablet 2 TIMES DAILY 1 tablet 2 TIMES DAILY (route: oral) Alternate Route: BY MOUTH. Med Classific ation: Central Nervous System Agents D3 DOTS 50 mcg (2,000 unit) tablet 09-29 00:00: 00 Yes [id number] 1 tablet DAILY 1 tablet DAILY (route: oral) Alternate Route: BY MOUTH. Med Classific ation: Electroly te Balance-N utritiona l Products ferrous sulfate 325 mg (65 mg iron) tablet 09-29 00:00: 00 Yes [id number] 1 tablet DAILY 1 tablet DAILY (route: oral) Alternate Route: BY MOUTH. Med Classific ation: Electroly te Balance-N utritiona l Products hydrochloro thiazide 12.5 mg capsule 09-29 00:00: 00 Yes [id number] 1 capsule DAILY 1 capsule DAILY (route: oral) Alternate Route: BY MOUTH. Med Classific ation: Cardiovas cular Therapy Agents metoprolol succinate ER 100 mg tablet,exte nded release 24 hr 09-29 00:00: 00 Yes [id number] 1 tablet DAILY 1 tablet DAILY (route: oral) Alternate Route: BY MOUTH. Med Classific ation: Cardiovas cular Therapy Agents montelukast 10 mg tablet 09-29 00:00: 00 Yes [id number] 1 tablet BEDTIME 1 tablet BEDTIME (route: oral) Alternate Route: BY MOUTH. Med Classific ation: Respirato ry Therapy Agents pantoprazol e 40 mg tablet,david yed release 09-29 00:00: 00 Yes [id number] 1 tablet BEFORE BREAKFAST 1 tablet BEFORE BREAKFAST (route: oral) Alternate Route: BY MOUTH. Med Classific ation: Gastroint estinal Therapy Agents Percocet 10 mg-325 mg tablet 09-29 00:00: 00 Yes [id number] 1 tablet 2 TIMES DAILY 1 tablet 2 TIMES DAILY (route: oral) Alternate Route: BY MOUTH. Med Classific ation: Analgesic , Anti-infl ammatory or Antipyret ic Senna Plus 8.6 mg-50 mg tablet 09-29 00:00: 00 Yes [id number] 2 tablet 2 TIMES DAILY 2 tablet 2 TIMES DAILY (route: oral) Alternate Route: BY MOUTH. Med Classific ation: Gastroint estinal Therapy Agents trazodone 50 mg tablet 09-29 00:00: 00 Yes [id number] 1 tablet BEDTIME 1 tablet BEDTIME (route: oral) Alternate Route: BY MOUTH. Med Classific ation: Central Nervous System Agents O2 - OXYGEN 10-02 00:00: 00 Yes [id number] 4 Liter O2 - CONTINUOUS 4 Liter [...] FOLLOWING ANY HOSPITAL ADMISSION. ALL DISCIPLINES (EXCEPT [facility]) MAY PROVIDE TELEHEALTH PHONE/REMOTE/VIRTUAL VISITS IN LIEU [...] FOLLOWING ANY HOSPITAL ADMISSION. ALL DISCIPLINES (EXCEPT [facility]) MAY PROVIDE TELEHEALTH PHONE/REMOTE/VIRTUAL VISITS IN LIEU [...] EMERGENCY SERVICES CALL [facility] NURSE TO KEEP MARKETING DATABASE CONSULTANT SYMPTOM REPORT FOR VISIBLE REFERENCE NOTIFY SKILLED [...] EMERGENCY SERVICES CALL [facility] NURSE TO KEEP MARKETING DATABASE CONSULTANT SYMPTOM REPORT FOR VISIBLE REFERENCE NOTIFY SKILLED [...] End Date/Time Encounter Type Admission Type Attending [facility] Care Department Encounter ID Discharge Date Discharge Status Discharge Condition Discharge Reason Percent Goals Met 2020-09-29 00:00:00 2020-10-13 00:00:00 Outpatient NEW ADMISSION MARGARET AGOSTO [facility] [id number] 2020-10-13 00:00:00 DISCHARGE TO HOME OR SELF CARE MINIMUM ASSIST WITH TRANSFER/A MBULATION/ [facility] ONLY - PER CLIENT REQUEST 40.00
== END 2024-07-29 01:41 | disposition left against medical advice (07) ==
LOC: ANHED 07-29 01:38
PROVIDERS: PCP Internal Medicine
DX: M54.50 Low back pain, unspecified (principal)
CPT/HCPCS: 99199

== ENCOUNTER 2025-01-12 15:48 | Outpatient (CLI) | payer MEDICARE, SELFPAY ==
--- NOTE | ~2025-01-12 | XR_ITS ---
Supine and upright views of the abdomen Clinical history: Diarrhea Findings: Bowel gas pattern is nonspecific. No evidence for obstruction or free air. No abnormal mass lesion or calcification is seen. Degenerative change of lumbar spine noted. Impression: No significant abnormality is seen. Reviewed, dictated and finalized at [facility]. Impression: No significant abnormality is seen.
--- OUTSIDE RECORDS SUMMARY | 2025-01-12 17:02 | XMS_ITS | Clinical Summary ---
Author Organization [facility] Address [address] [place] [address] Care Team Providers Care Kier Boiler Name Role Phone Unavailable Primary Care Provider Unavailabl e Source Comments [facility],non-owned Affiliates and Associated Physician Practices is amultiple site organization consisting of ambulatory clinics and hospital sitesin [place], [place], [place] and [place]. This disclosure is being madepursuant to the Care Everywhere program and may not contain all information available regarding this patient. Last updated 18.[facility] Allergies No known active allergies Medications * Be aware that medications may not be up to date on this document. Alwaysverify current medications with the patient. albuterol HFA (PROVENTIL;VENT SNEHA;PROAIR) 108 (90 Base) MCG/ACT inhaler Inhale 2 [...] 2 puffs by mouth once daily Active oxyCODONE-aceta minophen (PERCOCET) 10-325 MG tablet Take 1 tablet [...] tablet Take 1 tablet by mouth Active fluticasone-jose alfredo anterol (BREO ELLIPTA) 100-25 MCG/INH inhaler Inhale 1 puff by mouth once daily Administer at the same time each day. Rinse mouth after using Active amitriptyline (ELAVIL) 25 MG tablet Take 25 mg by mouth once daily Active hydroCHLOROthia zide (MICROZIDE) 12.5 MG capsule Take 12.5 mg by mouth once daily Active lisinopril (PRINIVIL; ZESTRIL) 10 MG tablet Take 1 (one) tablet by mouth once daily 30 tablet 1 Active metoprolol tartrate (LOPRESSOR) 25 MG tablet Take 1 (one) tablet by mouth 2 times daily 60 tablet 1 Active polyethylene glycol 3350 (MIRALAX) 17 g packet Take 17 (seventeen) g by mouth once daily 17 g 1 Active Active Problems Problem Noted Date Diagnosed Date Chronic respiratory failure 11/04/2020 Social History Tobacco Use Types Packs/Day Years Used Date Smoking Tobacco: Former Cigarettes Smokeless Tobacco: Former Tobacco Cessation:Counseling Given: Yes Comments Unknown Sex and Gender Information Value Date Recorded Sex Assigned at Not on file Legal Sex Female 12:12 PM [employer] Gender Identity Not on file Sexual Orientation Not on file Last Filed Vital Signs Vital Sign Reading Time Taken Comments Blood Pressure 129/68 11/16/2020 8:09 AM CDT Pulse 89 11/16/2020 8:47 AM CDT Temperature 36.7 C (98 F) 11/16/2020 8:09 AM CDT Respiratory Rate 20 [...] 1941 DTAP/TDAP/TD VACCINES (1 - Tdap) 1960 PNEUMOCOCCAL VACCINE 50+ (1 of 1 - PCV) 1991 ZOSTER VACCINE (1 of 2) 1991 Respiratory Syncytial Virus (RSV) Vaccine Pt: or over 60 yrs (1 - 1-dose 75+ series) 2016 COVID-19 VACCINE ( - 2023- season) 2024 DEPRESSION SCREENING 08/05/2024 INFLUENZA VACCINE (Season Ended) 2025 05/05/2020, 06/05/2019, 04/29/2017, Additional history exists HEPATITIS B VACCINE Aged Out No longe r eligible based on patient's age to complete this topic HIB VACCINE Aged Out No longer eligi ble based on patient's age to complete this topic HPV VACCINE Aged Out No longer eligi ble based on patient's age to complete this topic MENINGOCOCCAL (Group B) VACCINE SHARED DECISION-MAKING Aged Out No longer eligible based on patient's age to complete this topic MENINGOCOCCAL GROUPS A/C/Y/W VACCINE Aged Out No longer eligible based on patient's age to complete this topic Insurance [facility] MANAGED MEDICARE ADV MEDICAID - [place] MED[place] - OUT OF [facility] Member Subscriber Plan / Payer (Ef fective 2020-Present) Name:DawnPhoebe Relation to Subscriber:Self Name:RAFYPHOEBE Payer ID:Not on file Group ID:Not on file Type:Medicaid Address: [address] MANAGED MEDICARE ADV MEDICAID - OUT OF [facility] Member Subscriber Plan / Payer (Ef fective 2020-Present) Name:López Phoebe Relation to Subscriber:Self Name:PHOEBE HILLMAN Payer ID:Not on file Group ID:Not on file Type:Medicaid Address: [address] MANAGED MEDICARE ADV [facility] Care Address: [place] [address] Advance Directives * Full Code (Latest Code Status on File) Date Activated Date Inactivated Comments 11/04/2020 7:20 PM 11/16/2020 12:47 PM * Full Code Date Activated Date Inactivated Comments 11/04/2020 7:19 PM 11/04/2020 7:20 PM
--- OUTSIDE RECORDS SUMMARY | 2025-01-12 17:02 | XMS_ITS | Referral Summary ---
Author Organization [facility] [address] [facility] Address [address] [place] [address] Care Team Providers Care Industrial Roofer Helper Name Role Phone Eusebio Nagy MD Primary Care Provider [phone] To Caballero MD Unavailable [phone] Jacinto Aguilar MD Unavailable Encounters Date Type Department Care Team Description 12/22/2024 Orders Only [facility] [address] [place] [address] Unknown, Notinfile from Last 3 Months Allergies Active Allergy Reactions Criticality Noted Date [...] 08/29/2020 Assessment & Plan (08/29/2020 12:37 PM MANUAL LATHE MACHINIST): Cont daily replacement GERD (gastroesophageal reflux disease) Assessment & Plan (08/27/2020 7:30 PM MANUAL LATHE MACHINIST): Continue Home Pantoprazole 40mg Daily Chronic obstructive pulmonar y disease with acute exacerbation 08/23/2020 Assessment & Plan (08/29/2020 12:35 PM MANUAL LATHE MACHINIST): Continue Home Monteleukast 10mg Daily. Cont O2- baseline 3 L, wean as able Start ICA/LABA, LAMA HTN (hypertension) 08/23/2020 Assessment & Plan (08/27/2020 7:31 PM MANUAL LATHE MACHINIST): HCTZ 12.5mg Oral Daily, Metoprolol Succinate 100mg Daily. Anxiety 02/15/2020 Chronic congestive heart failure 02/15/2020 Depression 02/15/2020 Pulmonary hypertension, moderate to severe 02/14 Sleep apnea 02/15/2020 Resolved Problems Problem Noted Date Diagnosed Date Resolved Date Acute on chronic respiratory failure with hypoxia and hypercapnia 08/27/2020 09/13/2020 Assessment & Plan (08/29/2020 12:36 PM MANUAL LATHE MACHINIST): Presented w/hypercapnic respiratory failure likely to COPD Exacerbation and possible PNA. Initially on BIPAP then intuabted. Unclear precipitant but some concern for polypharmacy in the setting of multiple benzo prescriptions (Clonazepam and Tenazepam) along with opiates. 08/23 VBG 7.16 >125 158 - all infectious workup neg to date - narrowed to CTX, last dose tomorrow UA 1+ protein, trace bacteria CXR Small lung volumes with patchy airspace opacities on the R. No pleural effusion. - RVP neg, Legionella Ag neg, COVID neg - BCx and trach asp Cx 08/23 NGTD - Intubated 08/23; Extubated 08/26 - Abx: Vanc/Cefe (08/23); Azithro (08/23 - 08/25) Ceftriaxone (08/23 - 08/27) - Prednisone 60mg daily (08/23-08/26), decreased to 40mg (08/27-08/28) - Albuterol and Ipratropium HFA q4hrs Acute encephalopathy 08/27/2020 021 Assessment & Plan (08/27/2020 7:23 PM MANUAL LATHE MACHINIST): Likely toxic-metabolic in etiology in the setting of above respiratory failure/hypercapnia. Baseline she is A&O x3. 08/23 Ammonia 52H, TSH 0.26L, T4 1.18, Lactate 0.5 - hCT NAIA - UDS with benzos and oxycodone. - Continue monitor Iron deficiency anemia 08/27/202009/13 Assessment & Plan (08/29/2020 12:37 PM MANUAL LATHE MACHINIST): Presented with Hgb in 8s without explanation, MCV high 70s, iron profile 13, ferritin 28, Tsat 4%, now s/p 1U PRBCs and 1 x Ferrlecit. - Consider age-appropriate screening and iron supplementation on outpatient basis - started fe sulf bid 08/28 Acute hypercapnic respiratory failure 08/23/2020 09/13/2020 Assessment & Plan (08/29/2020 12:33 PM MANUAL LATHE MACHINIST): 2/2 copd exacerbation Sp antibiotics and 5 days of prednisone Wean O2 as able Encephalopathy acute 08/23/2020 021 Hyperlipidemia 02/15/2020 09/13/2020 Disorder of lung 05/20/2015 09/13/2020 Thoracic spine fracture 04/2021 Overview (08/23/2020): 3 months ago Assessment & Plan (08/29/2020 12:36 PM MANUAL LATHE MACHINIST): Suspect secondary to fall 3 months ago where patient was reported to have sustained spinal fractures. Has been taking opiates for pain at home. 08/23 CT Abd/Pelv Moderate to Severe Compression fractures at T11 and T12. -PT/OT -Vit d replacement -Consider bone health OP evaluation COPD (chronic obstructive pulmonary disease) 09/13/2020 Immunizations Immunization Administration Dates Next Due Influenza, Quadrivalent, Spl [...] on file Legal Sex Female 11:40 AM MANUAL LATHE MACHINIST Gender Identity Not on file Sexual Orientation Not on file Last Filed Vital Signs Vital Sign Reading Time Taken Comments Blood Pressure 137/70 12/05/2022 2:19 PM CDT Pulse 65 12/05/2022 2:19 PM CDT Temperature 37 C (98.6 F) 12/05/2022 2:19 PM CDT Respiratory Rate 20 12/05/2022 2:19 PM CDT Oxygen Saturation 99% 12/05/2022 2:19 PM CDT Inhaled Oxygen Concentration - - Weight 57.5 kg (126 lb 12.8 oz) 11/08/2022 2:03 PM CDT Height 152.4 cm (5') 11/08/2022 2:03 PM CDT Body Mass Index 24.76 11/08/2022 2:03 PM CDT Plan of Treatment Not on file Procedures Procedure Name Priority Date/Time Associated Diagnosis Comments SURGICAL PATHOLOGY Routine 12/22/2024 2: 10 PM CDT from Last 3 Months Results * Surgical pathology (12/22/2024 2:10 PM CDT) Skin, shave biopsy 12/22/2024 2:10 PM CDT 12/23/2024 9:05 AM CDT Narrative 12/24/2024 4:01 PM CDT EPIC results best viewed via link to PDF [facility], [address], [place] [address] [email or web address] Note to Patients: This report may contain [...] can answer questions and explain the details. FINAL REPORT Patient Information: PATIENT NAME: RORY HILLMAN SEX: F : 1940 (Age: 84) Specimen Information: COLLECTED: 12/22/2024 RECEIVED: 12/23/2024 REPORTED: 12/24/2024 Submitting Physician Information: AYO [facility], [facility] [place] [id number], DERMATOPATHOLOGY REPORT RESULTS DIAGNOSIS: SKIN, RIGHT LATERAL MALLEOLUS, SHAVE BIOPSY: JUNCTIONAL MELANOCYTIC NEVUS, LENTIGINOUS TYPE, RUBBED dh/isr By this signature, I attest that the above diagnosis is based upon my personal examination of the slides(and/or other material indicated in the diagnosis). Vesta Cadena M.D. Report Electronically Reviewed and Signed Out By Vesta Cadena M.D. 12/24/2024 16:01:44 CLINICAL INFORMATION NEOPLASM OF UNCERTAIN BEHAVIOR VS MELANOMA SPECIMEN DATA MICROSCOPIC DESCRIPTION: There is a proliferation of enlarged, relatively uniform melanocytes arranged predominantly as solitary units but also as small nests within the epidermis at the dermo-epidermal junction. There is also reticulated epidermal hyperplasia and hyperpigmentation. (D22.9) GROSS DESCRIPTION: Received in a formalin-containing bottle are two superficial fragments of variegated, pale rosa, brown and semi-translucent skin measuring 0.6 by 0.5 by 0.1 cm and 0.5 by 0.1 by 0.1 cm. The surgical margins are inked blue. The larger piece is sectioned into 2 pieces and the smaller piece is sectioned into 1 piece. The specimen is submitted entirely in a single cassette. Due to shrinkage, measurements may be different than those at time of procedure. sxt/anc ICD-9 A; ZSD.877 Clerical Data A; 67431 The characteristics of special, immunohistochemical, and immunofluorescence stains and in-situ hybridization tests performed by the [facility] were deemed acceptable in ongoing design quality engineer measures and in compliance with regulations drawn from the Clinical Laboratory Improvement Act kq6650 (CLIA '88). Control reactions for all stains performed were deemed adequate and appropriate by a pathologist prior to evaluation of patient tissue. Some diagnoses were rendered with the assistance of laboratory-developed tests utilizing analyte-specific reagents; the performance characteristic of these tests were determined by [facility] and are not cleared or approved by the US Food an Drug administration. Laboratory developed test may only be performed in a facility that is certified by the [facility] as a high-complexity laboratory under CLIA '88. These tests are used for clinical purposes and are not investigational. us Notinfile Unknown LAB PATHOLOGY ORDERABLES Final Result from Last 3 Months Insurance [facility] MEDICARE ADVANTAGE IDMO [facility] MEDICARE ADVANTAGE [facility] CHOICE PLUS [facility] MDCR HMO REF IDPA IDPA [facility] MEDICARE ADVANTAGE Advance Directives For more information, please contact: [phone] * Full Code (Latest Code Status on File) Date Activated Date Inactivated Comments 09/23/2021 11:07 PM 2021 5:10 PM * Full Code Date Activated Date Inactivated Comments 09/11/2020 2:58 AM 09/16/2020 7:36 PM * Full Code Date Activated Date Inactivated Comments 08/23/2020 9:06 PM 08/30/2020 10:29 PM Care Teams Industrial Roofer Helper Relationship Specialty Start Date End Date Eusebio Nagy MD PCP - General Internal Medicine 12/21/20 To Caballero MD [address] [place] [address] Referring Physician Obstetrics and Gynecology 06/09/21 Jacinto Aguilar MD [address] [place] [address] Internal Medicine 11/08/22
--- OUTSIDE RECORDS SUMMARY | 2025-01-12 17:02 | XMS_ITS | Clinical Summary ---
Author Organization [place] [id number] [facility] Address [address] [place] [address] Care Team Providers Care Body Shop Floorperson Name Role Phone Eusebio Nagy MD Primary Care Provider [phone] To Caballero MD Unavailable [phone] Jacinto Aguilar MD Unavailable Allergies Active [...] 08/29/2020 Assessment & Plan (08/29/2020 12:37 PM BRIM AND CROWN PRESSER): Cont daily replacement GERD (gastroesophageal reflux disease) Assessment & Plan (08/27/2020 7:30 PM BRIM AND CROWN PRESSER): Continue Home Pantoprazole 40mg Daily Chronic obstructive pulmonar y disease with acute exacerbation 08/23/2020 Assessment & Plan (08/29/2020 12:35 PM BRIM AND CROWN PRESSER): Continue Home Monteleukast 10mg Daily. Cont O2- baseline 3 L, wean as able Start ICA/LABA, LAMA HTN (hypertension) 08/23/2020 Assessment & Plan (08/27/2020 7:31 PM BRIM AND CROWN PRESSER): HCTZ 12.5mg Oral Daily, Metoprolol Succinate 100mg Daily. Anxiety 02/15/2020 Chronic congestive heart failure 02/15/2020 Depression 02/15/2020 Pulmonary hypertension, moderate to severe 02/14 Sleep apnea 02/15/2020 Resolved Problems Problem Noted Date Diagnosed Date Resolved Date Acute on chronic respiratory failure with hypoxia and hypercapnia 08/27/2020 09/13/2020 Assessment & Plan (08/29/2020 12:36 PM BRIM AND CROWN PRESSER): Presented w/hypercapnic respiratory failure likely to COPD [...] 021 Assessment & Plan (08/27/2020 7:23 PM BRIM AND CROWN PRESSER): Likely toxic-metabolic in etiology in the setting of above respiratory failure/hypercapnia. Baseline she is A&O x3. 08/23 Ammonia 52H, TSH 0.26L, T4 1.18, Lactate 0.5 - hCT NAIA - UDS with benzos and oxycodone. - Continue monitor Iron deficiency anemia 08/27/202009/13 Assessment & Plan (08/29/2020 12:37 PM BRIM AND CROWN PRESSER): Presented with Hgb in 8s without explanation, MCV high 70s, iron profile 13, ferritin 28, Tsat 4%, now s/p 1U PRBCs and 1 x Ferrlecit. - Consider age-appropriate screening and iron supplementation on outpatient basis - started fe sulf bid 08/28 Acute hypercapnic respiratory failure 08/23/2020 09/13/2020 Assessment & Plan (08/29/2020 12:33 PM BRIM AND CROWN PRESSER): 2/ copd exacerbation Sp antibiotics and 5 days of prednisone Wean O2 as able Encephalopathy acute 08/23/2020 021 Hyperlipidemia 02/15/2020 09/13/2020 Disorder of lung 05/20/2015 09/13/2020 Thoracic spine fracture 04/2021 Overview (08/23/2020): 3 months ago Assessment & Plan (08/29/2020 12:36 PM BRIM AND CROWN PRESSER): Suspect secondary to fall 3 months ago where patient was reported to have sustained spinal fractures. Has been taking opiates for pain at home. 08/23 CT Abd/Pelv Moderate to Severe Compression fractures at T11 and T12. -PT/OT -Vit d replacement -Consider bone health OP evaluation COPD (chronic obstructive pulmonary disease) 09/13/2020 Encounters Date Type Department Care Team Description 12/22/2024 Orders Only [facility] [address] [place] [address] Unknown, Notinfile from Last 3 Months Immunizations Immunization Administration Dates Next Due Influenza, [...] disease) (HC C) Hypertension Thoracic spine fracture (HCC) 3 months ago Iron deficiency anemia [...] on file Legal Sex Female 11:40 AM BRIM AND CROWN PRESSER Gender Identity Not on file Sexual Orientation [...] Screening 1940 Osteoporosis Screening-Bone Density Scan 1940 DTaP/Tdap/Td Vaccine (1 - Tdap) 1952 Hepatitis B Screening 1959 Zoster Vaccine (1 of 2) 1991 Well Visit 65+ 2006 Pneumococcal vaccine 65+ (2 of 2 - PPSV23) 11/07/2016 09/12/2016, 08/05/2016 Fall Risk Assessment 12/06/2023 12/05/2022, 09/26/19 Influenza Vaccine (Season Ended) 2025 08/14/2022, 05/05/2020, 06/05/2019, Additional history exists Procedures Procedure Name Priority Date/Time Associated Diagnosis Comments SURGICAL PATHOLOGY Routine 12/22/2024 2: 10 PM CDT from Last 3 Months Results * Surgical pathology (12/22/2024 2:10 PM CDT) Skin, shave biopsy 12/22/2024 2:10 PM CDT 12/23/2024 9:05 AM CDT Narrative 12/24/2024 4:01 PM CDT [facility] results best viewed via link to PDF [facility], [address], [place] [address] [email or web address] Note to Patients: This report may contain [...] details. FINAL REPORT Patient Information: PATIENT NAME: HPOEBE HILLMAN SEX: F : 1940 (Age: 84) Specimen Information: COLLECTED: 12/22/2024 RECEIVED: 12/23/2024 REPORTED: 12/24/2024 Submitting Physician Information: Savanna Willams [facility], [address] [place] [address], DERMATOPATHOLOGY REPORT RESULTS DIAGNOSIS: SKIN, RIGHT LATERAL [...] sxt/anc ICD-9 A; ZSD.877 Clerical Data A; 65106 The characteristics of special, immunohistochemical, and immunofluorescence stains and in-situ hybridization tests performed by the [facility] were deemed acceptable in ongoing nurse quality measures and in compliance with regulations drawn from the Clinical Laboratory Improvement Act wc4994 (CLIA '88). Control reactions for all stains performed were deemed adequate and appropriate by a pathologist prior to evaluation of patient tissue. Some diagnoses were rendered with the assistance of laboratory-developed tests utilizing analyte-specific reagents; the performance characteristic of these tests were determined by [facility] and are not cleared or approved by the [place] Food an Drug administration. Laboratory developed test may only be performed in a facility that is certified by the [facility] as a high-complexity laboratory under CLIA '88. These tests are used for clinical purposes and are not investigational. us Notinfile Unknown LAB PATHOLOGY ORDERABLES Final Result from Last 3 Months Insurance IDPA [facility] MEDICARE ADVANTAGE [facility] MEDICARE Address: [address] [address] [place] [address] IDPA [facility] MEDICARE ADVANTAGE [facility] MEDICARE Address: [address] [address] [place] [address] [facility] CHOICE PLUS [facility] HMO/PPO Address: [address] [address] [place] [address] [address] [place], [place] [facility] MDCR HMO REF [facility] MEDICARE Address: [address] [address] [place] [address] IDPA IDPA [employer] MEDICARE ADVANTAGE Advance Directives For more information, please contact: [phone] * Full Code (Latest Code Status on File) Date Activated Date Inactivated Comments 09/23/2021 11:07 PM 2021 5:10 PM * Full Code Date Activated Date Inactivated Comments 09/11/2020 2:58 AM 09/16/2020 7:36 PM * Full Code Date Activated Date Inactivated Comments 08/23/2020 9:06 PM 08/30/2020 10:29 PM Care Teams Body Shop Floorperson Relationship Specialty Start Date End Date Eusebio Nagy MD PCP - General Internal Medicine 12/21/20 To Caballero MD [address] [facility] [place] [address] Referring Physician Obstetrics and Gynecology 06/09/21 Jacinto Aguilar MD [address] [address] Internal Medicine 11/08/22
--- OUTSIDE RECORDS SUMMARY | 2025-01-12 17:02 | XMS_ITS ---
Author Organization [facility] Care Team Providers Care Telecommunications Clerk Name Role Phone Astrid Jarrell Unavailable Unavailable Paddy Brandt Unavailable Unavailable Allergies and adverse reactions Code CodeSystem Substance Reaction Severity StartDate Concern Status 63142 RXNORM Quinapril Unknown 2021 active 5521 RXNORM Hydroxychloroquine Unknown 2021 ac tive 57951 RXNORM DULoxetine Unknown 2021 active Care Team Name Role Address Phone Organization Dates Astrid Jarrell PCP [address] [place], [place], [facility], [facility] (Office): : : [facility] 2021 - 09/29/2021 Paddy Brandt [address] [place], [place], [facility], [place] (Office): : : [facility] 2021 - 09/29/2021 Problems Problem # Description Date of onset Resolved Date Code CodeSystem Concern Status 1 OTHER SPECIFIED DISORDERS OF BONE DENSITY AND STRUCTURE, UNSPECIFIED SITE 09/28/[address] active 2 UNSPECIFIED KYPHOSIS, THORACIC REGION 09/28/[address] active 3 ACUTE AND CHRONIC RESPIRATORY FAILURE, UNSPECIFIED WHETHER WITH HYPOXIA OR HYPERCAPNIA [address] active 4 ANXIETY DISORDER, UNSPECIFIED [address] active 5 CHEST PAIN, UNSPECIFIED [address] active 6 CHRONIC OBSTRUCTIVE PULMONARY DISEASE, UNSPECIFIED [address] active 7 CHRONIC RESPIRATORY FAILURE, UNSPECIFIED WHETHER WITH HYPOXIA OR HYPERCAPNIA [address] active 8 DEPENDENCE ON SUPPLEMENTAL OXYGEN [address] active 9 DEPRESSION, UNSPECIFIED [address] active 10 ESSENTIAL (PRIMARY) HYPERTENSION [address] active 11 GASTRO-ESOPHAGEAL REFLUX DISEASE WITHOUT ESOPHAGITIS [address] active 12 HEART FAILURE, UNSPECIFIED [address] active 13 LORDOSIS, UNSPECIFIED, LUMBAR REGION [address] active 14 NONDISPLACED TYPE II DENS FRACTURE, SEQUELA [address] active 15 OBSTRUCTIVE SLEEP APNEA (ADULT) (PEDIATRIC) [address] active 16 OTHER CHRONIC PAIN [address] active 17 PERSONAL HISTORY OF (HEALED) TRAUMATIC FRACTURE [address] active 18 STABLE BURST FRACTURE OF SECOND LUMBAR VERTEBRA, SUBSEQUENT ENCOUNTER FOR FRACTURE WITH ROUTINE HEALING [address] active 19 SYNCOPE AND COLLAPSE [address] active 20 VITAMIN D DEFICIENCY, UNSPECIFIED [address] active Reason for Referral No Reasons for Referral Entered Social History Social History Observation Description Start Date End Date Code Code System Current Smoking Status Tobacco smoking consumption unknown 899105654 SNOMED CT Sex Assigned At Female 1940 [address]37-5 [facility] Gender Identity Vital Signs Code Code System Vitals Name Values and Units Timing Information 72789-2 [facility] Pain Level Value=4.0 09/29/2021 8462-4 [facility] Blood Pressure-Diastolic Value=96 Un its=mmHg 09/28/2021 8480-6 [facility] Blood Pressure-Systolic Hwhxa=543 Un its=mmHg 09/28/2021 20432-1 [facility] O2 % BldC Oximetry Value=94.0 Units= % 09/28/2021 9279-1 [facility] Respiratory Rate Value=20.0 Units=/m in 09/28/2021 8867-4 [facility] Heart rate Value=70.0 Units=/min 8310-5 [facility] Body Temperature Value=98.4 Units= F 09/28/2021
--- OUTSIDE RECORDS SUMMARY | 2025-01-12 17:02 | XMS_ITS | CONTINUITY OF CARE DOCUMENT ---
Author Name amanda patel Address Unknown Organization [facility] Address [address] [address] [place] [address] Phone [phone] Care Team Providers Care Panel Assembler Name Role Phone Stalin MCINTYRE, Fredy Unavailable MARTIN MCINTYRE, MONO Unavailable [phone] MONO SALAZAR MD Unavailable [phone] PROBLEMS Condition Status Date Provider Notes Pulmonary hypertension, moderate to severe active Fredy Gant MD CHF diastolic dysfunction, EF 70%. active Fredy Gant MD Hyperlipidemia active Fredy Gant MD Anxiety active Fredy Gant MD Depression active Fredy Gant MD Hypertension active Fredy Gant MD COPD on home O2 active Fredy Gant MD Sleep apnea completed - Fredy Gant MD VANDANA--on cpap active Fredy Gant MD Cardiology examination active Jacinda martinez [employer] ENCOUNTERS Date Type Provider Location Encounter Diag nosis - In-person encounter Office Visit Fredy Gant MD [facility] Cardiology examination - In-person encounter Office Visit Fredy Gant MD [facility] Sleep apneaOSA--on cpap - In-person encounter Office Visit Fredy Gant MD [facility] VITAL SIGNS Date Observation Value Provider Body Mass Index (Ratio) 21.87 kg/m2 Rafael Gant MD blood pressure, diastolic 81 mm[Hg] Maria Luisa nkLogic blood pressure, systolic 131 mm[Hg] Dorina kLogic pulse rate 75 /min Cami jauregui oxygen saturation, oximetry 98 % Cami Marie blood pressure, diastolic 81 mm[Hg] Nicolas Marie blood pressure, systolic 131 mm[Hg] Socorro Marie weight E&M 112 [lb_av] Cami jauregui blood pressure, cuff size regular Br imelda Marie height E&M 60 [in_i] Cami jauregui Body Mass Index (Ratio) 24.02 kg/m2 Rafael Gant MD blood pressure, diastolic 88 mm[Hg] Elsa King blood pressure, cuff size regular Elsa King blood pressure, systolic 169 mm[Hg] Beto zonia King oxygen saturation, oximetry 99 % Justine King respiratory rate E&M 16 /min Nancy King pulse rate 64 /min Justine polanco weight E&M 123 [lb_av] Justine Bardales son height E&M 60 [in_i] Justine polanco Body Mass Index (Ratio) 30.66 kg/m2 Rafael Gant MD Inhaled O2 2 L/min Tonsha Porras blood pressure, resting Yes Tons dumont Porras blood pressure, diastolic 58 mm[Hg] To nsha Porras blood pressure, systolic 106 mm[Hg] Ton sha Porras respiratory rate E&M 16 /min Tonsha Porras pulse rate 66 /min Tonsha Porras oxygen saturation, oximetry 94 % Tonsha Porras temperature site temporal Tonsha Porras temperature E&M 97.6 [degF] Neto Porras height E&M 60 [in_i] Neto Porras weight E&M 157 [lb_av] Neto Porras ALLERGIES Allergy Name Onset Date Reaction Criticality Status HYDRALAZINE High Criticality active NEFE DIPINE High Criticality active CLNIDINE High Criticality active LORSATAN POTASSIUM High Criticality active AMITRIPOLINE High Criticality active TRASADONE PLACQUENIL High Criticalit y active HISTORY OF MEDICATION USE Medication Status Instructions Dates Provider Indications Com ments chlorthalidone 25 mg tablet active TAKE 1 TABLET BY MOUTH DAILY. FOLLOW UP 10/05 Jacinda Ventimiglia [employer] ropinirole 1 mg tablet active TAKE 1 TABLET BY MOUTH AT BEDTIME NEEDED Jacinda Ventimiglia [employer] atorvastatin 20 mg tablet active Jacinda Ventimiglia [employer] chlorthalidone 50 mg tablet completed TAKE 1 TABLET BY MOUTH DAILY. FOLLOW UP 08/31 - 10/05 Jacinda Ventimiglia [employer] chlorthalidone 50 mg tablet completed Take 1 tablet by mouth once a day due for follow up 11/15 - 08/31 Jeni Barron chlorthalidone 50 mg tablet completed Take 1 tablet by mouth once a day one tab daily 08/28 - 11/15 Amy Colbert chlorthalidone 50 mg tablet completed one tab daily - 08/28 Greg Lizama chlorthalidone 50 mg tablet completed - Graham Lyman RN hydralazine 25 mg tablet completed one tab twice daily 09/19 - 09/25 Iftikhar Mcwilliams hydralazine 25 mg tablet completed one tab twice daily - 09/19 Graham Lyman RN lisinopril-hydrochl orothiazide 10-12.5 mg tablet completed Take 1 tablet by mouth once a day - 09/19 Graham Lyman RN hydralazine 50 mg tablet completed Take 1 tablet by mouth twice a day - 08/06 Fredy Gant MD hydrocodone-acetami nophen 7.5-325 mg tablet active Iftikhar Pantojamedzai pantoprazole 40 mg tablet,delayed release (DR/EC) active Iftikhar Ahmedzai metoprolol succinate 100 mg tablet extended release 24 hr active Iftikhar Ahmedzai omeprazole 40 mg capsule,delayed release(DR/EC) completed Take 1 capsule once a day 09/24 - 0 Iftikhar Ahmedzai #90, 90 days supply, Prescribed by MONO SALAZAR, Filled 01/06/2020 metoprolol succinate 100 mg tablet extended release 24 hr completed tablet by mouth 12/09 - Iftikhar Ahmedzai #90, 90 days supply, Prescribed by WINNIE SOSA, Filled 01/29/2020 diclofenac sodium 75 mg tablet,delayed release (DR/EC) completed tablet by mouth 01/28 - Iftikhar Ahmedzai #60, 30 days supply, Prescribed by MONO SALAZAR, Filled 01/29/2020 temazepam 15 mg capsule completed capsule by mouth 02/02 - 0 Iftikhar Ahmedzai #30, 30 days supply, Prescribed by ESETVAN MARROQUIN, Filled 02/03/2020 montelukast 10 mg tablet completed tablet by mouth 02/10 - 0 Iftikhar Ahmedzai #30, 30 days supply, Prescribed by EMILY MENARD, Filled 02/11/2020 hydrochlorothiazide 12.5 mg capsule completed capsule by mouth 01/07 - 0 Iftikhar Ahmedzai #30, 30 days supply, Prescribed by MONO SALAZAR, Filled 02/12/2020 pantoprazole 40 mg tablet,delayed release (DR/EC) completed tablet by mouth 02/12 - 0 Iftikhar Ahmedzai #20, 20 days supply, Prescribed by BEBA PRICE, Filled 02/13/2020 ondansetron HCl 8 mg tablet completed tablet by mouth 02/12 - Iftikhar Mcwilliams #10, 4 days supply, Prescribed by BEBA PRICE, Filled 02/13/2020 dicyclomine 20 mg tablet completed tablet by mouth 02/12 - Iftikhar Mcwilliams #15, 5 days supply, Prescribed by BEBA PRICE, Filled 02/13/2020 SOCIAL HISTORY Date Observation Value Provider personal history of marijuana use no Jacinda Ventimiglia [facility] drug use no Jacinda Ventimig charlene [facility] alcohol use no Jacinda Ventimig charlene [facility] smoking status Never smoker Iftikhar Ortegapinky social history E&M S moking History: Yasmin white has never smoked. Iftikhar Ortegai smoking status Never smoker Justine gaytan social history reviewed E&M revi ewed - no changes required Fredy Gant MD social history E&M S moking History: Yasmin white has never smoked. Maxine Kohler social history reviewed E&M revi ewed - no changes required Maxine Kohler smoking status Never smoker Neto Porras INSURANCE PROVIDERS Payer name Policy type / Coverage type Cadet red green party ID AARP MEDICARE ADVANTAGE ([facility] COMPLETE PPO) Other [id number] [facility] Medicaid 1 [id number] ADVANCE DIRECTIVES Name Date LIVING WILL ON FILE TREATMENT PLAN Date Name Performer [id number],S, Iftikhar Garza i [id number],S, Iftikhar Pantojamedza i [id number],S, Iftikhar Pantojamedza i [id number],S, Iftikhar Scarlettmedza i [id number],S, Iftikhar Scarlettmedza i [id number],S, Iftikhar Scarlettmedza i [id number],S, Iftikhar Pantojamedza i [id number],S, Iftikhar Pantojamedza i [id number],S, Iftikhar Pantojamedza i [id number],S, Iftikhar Pantojamedza i [id number],S, Iftikhar Pantojamedza i [id number],S, Iftikhar Scarlettmedza i [id number],S, Iftikhar Pantojamedza i [id number],S, Iftikhar Pantojamedza i [id number],S, Iftikhar Pantojamedza i [id number],S, Iftikhar Pantojamedza i [id number],S, Iftikhar Pantojamedza i [id number],W, Iftikhar Pantojamedza i Cardiology:BP better controlled per last home RPM log, however, weight loss and frequent urination persist with chlorthalidone. Will update labs and decrease to 25 mg a day. will continue home RPM and f/u in 2 mos or sooner if needed. T he following medications were removed from the medication list: Chlorthalidone 50 Mg Tablet (Chlorthalidone) ..... Take 1 tablet by mouth daily. follow up Her updated medication list for this problem includes: Chlorthalidone 25 Mg Tablet (Chlorthalidone) ..... Take 1 tablet by mouth daily. follow up Metoprolol Succinate 100 Mg Tablet Extended Release 24 Hr (Metoprolol succinate) T his visit has been a part of the consistent, comprehensive, and ongoing management of the chronic medical condition(s) listed above for the patient. Fredy Gant MD Cardiology: H er updated medication list for this problem includes: Atorvastatin 20 Mg Tablet (Atorvastatin) Jacinda Wright [facility] Cardiology: T he following medications were removed from the medication list: Chlorthalidone 50 Mg Tablet (Chlorthalidone) ..... Take 1 tablet by mouth daily. follow up Her updated medication list for this problem includes: Chlorthalidone 25 Mg Tablet (Chlorthalidone) ..... Take 1 tablet by mouth daily. follow up Metoprolol Succinate 100 Mg Tablet Extended Release 24 Hr (Metoprolol succinate) Jacinda Wright [facility] Cardiology: T he following medications were removed from the medication list: Chlorthalidone 50 Mg Tablet (Chlorthalidone) ..... Take 1 tablet by mouth daily. follow up Her updated medication list for this problem includes: Chlorthalidone 25 Mg Tablet (Chlorthalidone) ..... Take 1 tablet by mouth daily. follow up Metoprolol Succinate 100 Mg Tablet Extended Release 24 Hr (Metoprolol succinate) [facility] Card[facility]:BP better controlled per last home RPM log, however, weight loss and frequent urination persist with chlorthalidone. Will update labs and decrease to 25 mg a day. will continue home RPM and f/u in 2 mos or sooner if needed. T he following medications were removed from the medication list: Chlorthalidone 50 Mg Tablet (Chlorthalidone) ..... Take 1 tablet by mouth daily. follow up Her updated medication list for this problem includes: Chlorthalidone 25 Mg Tablet (Chlorthalidone) ..... Take 1 tablet by mouth daily. follow up Metoprolol Succinate 100 Mg Tablet Extended Release 24 Hr (Metoprolol succinate) Jacinda Wright [facility] Telehealth Iftikhar Ahmedzai Telehealth Iftikhar Ahmedzai Telehealth Iftikhar Ahmedzai Telehealth Iftikhar Ahmedzai Telehealth Iftikhar Ahmedzai Telehealth Iftikhar Ahmedzai Telehealth Iftikhar Ahmedzai Telehealth Iftikhar Ahmedzai Telehealth Iftikhar Ahmedzai Telehealth Iftikhar Ahmedzai Telehealth Iftikhar Ahmedzai Telehealth Iftikhar Ahmedzai Telehealth Iftikhar Ahmedzai Cardiology Iftikhar Ahmedzai Cardiology Iftikhar Ahmedzai Cardiology Iftikhar Ahmedzai Cardiology Iftikhar medzai Cardiology Iftikhar Ahmedzai Cardiology - Fredy Gant MD Cardiology - Fredy Gant MD Cardiology - Fredy Gant MD Cardiology - Fredy Gant MD Cardiology - Fredy Gant MD Cardiology - Fredy Gant MD Date Name IRON AND TOTAL IRON BINDING CAPACITY FERRITIN CBC (INCLUDES DIFF/P LT) PROBNP, N TERMINAL BASIC METABOLIC PANE L W/EGFR Renal Artery Duplex RPM (remote patient monitoring) Complete Echo HISTORY OF PROCEDURES Procedure Date Procedure Name Provider Procedure Notes S tatus Complex e/m visit add on Fredy Gant MD completed EKG Fredy Gant MD completed EKG Fredy Gant MD completed EKG Fredy Gant MD completed
== END 2025-01-12 15:49 | disposition home or self-care (01) ==
PROVIDERS: PCP Internal Medicine; Visit Provider Nurse Practitioner Family
DX: R19.7 Diarrhea, unspecified (principal)
CPT/HCPCS: 74018

== ENCOUNTER 2025-01-22 15:57 | Outpatient (CLI) | payer MEDICARE, SELFPAY | END 2025-01-22 15:58 | disposition home or self-care (01) | LOC: ANHLAB 15:58 | PROVIDERS: PCP Internal Medicine; Visit Provider Nurse Practitioner Family | DX: R19.7 Diarrhea, unspecified (principal) | CPT/HCPCS: 82653; 82705; 83993; 87045; 87269; 87427; 87449 ==

== ENCOUNTER 2025-03-08 18:14 | Emergency (ER) | payer MEDICARE, SELFPAY ==
--- OUTSIDE RECORDS SUMMARY | 2025-03-08 18:16 | XMS_ITS | Continuity of Care Document ---
Author Organization [facility] Address [address] [place] [address] [address] [place] [address] Insurance Providers Payer Plan Claims Address Claims Phone Policy Number Group Number Relation Employer Guarantor Name Guarantor Guarantor Address Guarantor Phone [place] Spend down [id number] 21 [id number] Self [address] [place] [address] [place] [address] Medic are [employer] [id number] Self [place] [address] [place] [address] Medic are [place] Im[place] [id number] Self Phoebe[place] [place] [address] [place] [address] Problems Unknown Problems Results No Results Allergies, adverse reactions, alerts Substance Reaction Date Status Type tramadol dizziness 10/03/2024 Drug quinapril unknown 10/03/2024 Drug Immunizations Vaccine Route Date Status Pneumococcal 10/07/2024 Completed influenza 10/07/2024 Completed Medications No administered medications reported Vital Signs Date Vital Result Comment 10/01/2024 Inhaled Oxygen Concentration 32.0 % N Temperature 97 [degF] N Oxygen Saturation 97 % N Respiratory Rate 20 /min N Heart Rate 75 /min N Blood Pressure Systolic 128 mm[Hg] N Blood Pressure Diastolic 70 mm[Hg] N 10/28/2024 Inhaled Oxygen Concentration 21.0 % N Temperature 98.2 [degF] N Oxygen Saturation 98 % N Respiratory Rate 16 /min N Heart Rate 72 /min N Blood Pressure Systolic 132 mm[Hg] N Blood Pressure Diastolic 86 mm[Hg] N Body Weight 111 [lb_av] N Social History No smoking Hx information available Functional Status Category Condition Date Problem (Feeding: Independent) Feeding: Independ ent 10/01/2024 Problem (Bathing: Dependent) Bathing: Dependent 10/01/2024 Problem (Grooming: Independe nt face/hair/teeth/ shaving (implements provided)) Grooming: Independent face/hair/teeth/ shaving (implements provided) 10/01/2024 Problem (Dressing: Needs hel p but can do about half unaided) Dressing: Needs help but can do about half unaided 10/01/2024 Problem (Bowels: Continent) Bowels: Continent Problem (Bladder: Continent) Bladder: Continent 10/01/2024 Problem (Toilet use: Indepen dent (on and off, dressing, wiping)) Toilet use: Independent (on and off, dressing, wiping) 10/01/2024 Problem (Transfers (bed to c hair and back): Independent) Transfers (bed to chair and back): Independent 10/01/2024 Problem (Mobility (on level surfaces): Immobile or 50 yards) Mobility (on level surfaces): Immobile or 50 yards 10/01/2024 Problem (Stairs: Unable) Stairs: Unable 025 Problem (Total score: 65) Total score: 65 2024 Mental Status Category Condition Date Cognitive function Normal 10/29/2024
--- OUTSIDE RECORDS SUMMARY | 2025-03-08 18:16 | XMS_ITS | Clinical Summary ---
Author Organization [facility] Address [address] [place] [address] Care Team Providers Care Vending Attendant Name Role Phone Unavailable Primary Care Provider Unavailabl e Source Comments [facility],non-owned Affiliates and Associated Physician Practices is amultiple site organization consisting of ambulatory clinics and hospital sitesin [place], [place], [place] and [place]. This disclosure is being madepursuant to the Care Everywhere program and may not contain all information available regarding this patient. Last updated 18.[facility] Allergies No known active allergies Medications * [...] on file Legal Sex Female 12:12 PM SHEET [employer] FORMER Gender Identity Not on file Sexual Orientation [...] - 1-dose 75+ series) 2016 COVID-19 VACCINE (1 - 2023- season) 2024 DEPRESSION SCREENING 08/05/2024 INFLUENZA VACCINE (#1) 2025 , 06/05/2019, 04/29/2017, Additional history exists HEPATITIS B [...] patient's age to complete this topic Insurance [facility] MANAGED MEDICARE ADV MEDICAID - [place] MEDICAID - [facility] Member Subscriber Plan / Payer (Ef fective 2020-Present) Name:DawnDeirdrece Relation to Subscriber:Self Name:RAFYPHOEBE Payer ID:Not on file Group ID:Not on file Type:Medicaid Address: [address] MANAGED MEDICARE ADV MEDICAID - [facility] Member Subscriber Plan / Payer (Ef fective 2020-Present) Name:Phoebe Dawn Relation to Subscriber:Self Name:PHOEBE HILLMAN Payer ID:Not on file Group ID:Not on file Type:Medicaid Address: [address] MANAGED MEDICARE ADV [facility] Care Address: [place] [phone] Advance Directives * Full Code (Latest Code Status on File) Date Activated Date Inactivated Comments 11/04/2020 7:20 PM 11/16/2020 12:47 PM * Full Code Date Activated Date Inactivated Comments 11/04/2020 7:19 PM 11/04/2020 7:20 PM
--- OUTSIDE RECORDS SUMMARY | 2025-03-08 18:16 | XMS_ITS | Referral Summary ---
Author Organization [facility] [address] [facility] Address [address] [place] [address] Care Team Providers Care Enamel Buffer Name Role Phone Eusebio Nagy MD Primary Care Provider To Caballero MD Unavailable [phone] Jacinto Aguilar MD Unavailable Encounters Date Type Department Care Team Description 03/04/2025 12:15 PM CDT Pre-Admission Testing [facility] Pre Anesthesia Testing [address] [place] [address] Other constipation; Incisional hernia, without obstruction or gangrene 02/23/2025 2:00 PM CDT Office Visit [facility] Surgery [address] [facility] [address] [address] Jeannette Aguilar MD Grade IV internal hemorrhoids (Primary Dx); Rectal prolapse; Incontinence of feces with fecal urgency; Other constipation; Incisional hernia, without obstruction or gangrene 12/22/2024 Orders Only [facility] [address] [place] [address] Unknown, Notinfile from Last 3 Months Allergies Active Allergy Reactions Criticality Noted Date Comments Amitriptyline Other (See comments) 03/04/2025 Amlodipine Itching Low 03/04/2025 Clonidine Other (See comments) High 05/29/2022 Duloxetine Cough Low 09/10/2020 Hydralazine Other (See comments) High 07/25/2022 Hydroxychloroquine Rash Medium 12/28/2020 Losartan Flushing (skin) High 03/04/2025 Losartan Potassium Unknown High 05/29/2022 Nifedipine Other (See comments) 03/04/2025 nifedipine Quinapril Rash Medium 09/10/2020 Trazodone Other (See comments) 03/04/2025 Medications tiotropium bromide (SPIRIVA RESPIMAT) 2.5 mcg/actuation inhaler Inhale 2 puffs daily Active Advair Diskus 250-50 mcg/dose diskus inhaler 2 Active acetaminophen 500 mg capsuleIndicat ions:Pain Take 2 capsules (1,000 mg total) by mouth every 6 (six) hours 30 tablet 2 Active metoprolol XL (TOPROL-XL) 100 mg 24 hr tablet [address] (PROTONIX) 40 mg EC tablet Take 1 tablet (40 mg total) by mouth daily Active ciprofloxacin (CIPRO) 500 mg tablet TAKE 1 TABLET AT 7PM AND 11PM THE NIGHT BEFORE SURGERY 2 tablet 5 Active metroNIDAZOLE (FLAGYL) 500 mg tablet TAKE 1 TABLET AT 7PM AND 11PM THE NIGHT BEFORE SURGERY 2 tablet 5 Active chlorthalidone (HYGROTON) 50 mg tablet TAKE 1 TABLET BY MOUTH DAILY. FOLLOW UP 3 Active atorvastatin (LIPITOR) 20 mg tablet Take 1 tablet (20 mg total) by mouth daily Active aspirin 81 mg enteric coated tablet Take 1 tablet every day by oral route. 8 Active HYDROcodone-ac etaminophen (NORCO) 10-325 mg per tablet TAKE 1 TABLET BY MOUTH THREE TO FOUR TIMES DAILY. MUST LAST 3 WEEKS. 5 Active albuterol HFA (PROVENTIL HFA,VENTOLIN HFA,PROAIR HFA) 90 mcg/actuation inhaler Inhale 2 puffs every 6 (six) hours as needed for wheezing Active lidocaine (LIDODERM) 5 % APPLY 1 PATCH TO MOST PAINFUL AREA LEAVE ON FOR UP TO 12 HOURS,OFF FOR 12 HOURS BEFORE REAPPLYING Active dicyclomine (BENTYL) 20 mg tablet TAKE 1 TABLET BY MOUTH THREE TIMES DAILY NEEDED FOR ABDOMINAL PAIN 5 Active albuterol HFA (PROVENTIL HFA,VENTOLIN HFA,PROAIR HFA) 90 mcg/actuation inhaler Inhale 2 puffs every 4 (four) hours as needed for wheezing 1 Inhaler 1 03/04/20 25 Discontinu ed(Duplica te order) hydroCHLOROthi azide (HYDRODIURIL) 12.5 mg tablet Take 1 tablet (12.5 mg total) by mouth daily 30 tablet 1 03/04/20 25 Discontinu ed(Alterna te therapy) HYDROcodone-ac etaminophen (NORCO) 7.5-325 mg per tablet Take 1 tablet by mouth every 6 (six) hours as needed 2 03/04/20 25 Discontinu ed(Alterna te therapy) Active Problems Problem Noted Date Diagnosed Date Primary fibromyalgia syndrome 02/24/2025 Osteoarthritis 02/24/2025 Overview (02/24/2025): s/p left knee suregry 2009 Diverticulitis of colon 02/24/2025 Overview (02/24/2025): s/p surgery in 2000 Acute myocardial infarction 02/24/2025 Rectal prolapse 02/23/2025 Malignant melanoma 01/14/2024 Anemia 06/16/2023 Iron deficiency anemia 11/08/2022 Overactive bladder 01/10/2022 Osteoporosis 11/14/2021 Heart failure 2021 Chronic pain 2021 Diagnosis unknown 09/23/2021 Abnormal gait 12/28/2020 Impairment [...] 08/29/2020 Assessment & Plan (08/29/2020 12:37 PM CUSTOMER SALES CONSULTANT): Cont daily replacement GERD (gastroesophageal reflux disease) Assessment & Plan (08/27/2020 7:30 PM CUSTOMER SALES CONSULTANT): Continue Home Pantoprazole 40mg Daily Chronic obstructive pulmonar y disease with acute exacerbation 08/23/2020 Assessment & Plan (08/29/2020 12:35 PM CUSTOMER SALES CONSULTANT): Continue Home Monteleukast 10mg Daily. Cont O2- baseline 3 L, wean as able Start ICA/LABA, LAMA HTN (hypertension) 08/23/2020 Assessment & Plan (08/27/2020 7:31 PM CUSTOMER SALES CONSULTANT): HCTZ 12.5mg Oral Daily, Metoprolol Succinate 100mg Daily. Anxiety 02/15/2020 Chronic congestive heart failure 02/15/2020 Depression 02/15/2020 Pulmonary hypertension, moderate to severe 02/14 Sleep apnea 02/15/2020 Resolved Problems Problem Noted Date Diagnosed Date Resolved Date Acute on chronic respiratory failure with hypoxia and hypercapnia 08/27/2020 09/13/2020 Assessment & Plan (08/29/2020 12:36 PM CUSTOMER SALES CONSULTANT): Presented w/hypercapnic respiratory failure likely to COPD [...] 021 Assessment & Plan (08/27/2020 7:23 PM CUSTOMER SALES CONSULTANT): Likely toxic-metabolic in etiology in the setting of above respiratory failure/hypercapnia. Baseline she is A&O x3. 08/23 Ammonia 52H, TSH 0.26L, T4 1.18, Lactate 0.5 - hCT NAIA - UDS with benzos and oxycodone. - Continue monitor Iron deficiency anemia 08/27/202009/13 Assessment & Plan (08/29/2020 12:37 PM CUSTOMER SALES CONSULTANT): Presented with Hgb in 8s without explanation, MCV high 70s, iron profile 13, ferritin 28, Tsat 4%, now s/p 1U PRBCs and 1 x Ferrlecit. - Consider age-appropriate screening and iron supplementation on outpatient basis - started fe sulf bid 08/28 Acute hypercapnic respiratory failure 08/23/2020 09/13/2020 Assessment & Plan (08/29/2020 12:33 PM CUSTOMER SALES CONSULTANT): 2/2 copd exacerbation Sp antibiotics and 5 days of prednisone Wean O2 as able Encephalopathy acute 08/23/2020 021 Hyperlipidemia 02/15/2020 09/13/2020 Disorder of lung 05/20/2015 09/13/2020 Thoracic spine fracture 04/2021 Overview (08/23/2020): 3 months ago Assessment & Plan (08/29/2020 12:36 PM CUSTOMER SALES CONSULTANT): Suspect secondary to fall 3 months ago [...] Smoking Tobacco: Former Cigarettes Q uit: 08/23/2004 Tobacco Cessation:Counseling Given: Not Answered AUDIT-C Answer Date Recorded Q1: How often do you have a drink containing alcohol? Never 03/04/2025 Q2: How many drinks containi ng alcohol do you have on a typical day when you are drinking? Patient does not drink Q3: How often do you have si x or more drinks on one occasion? Never 03/04/2025 Comments No Sex and Gender Information Value Date Recorded Sex Assigned at Not on file Legal Sex Female 11:40 AM CUSTOMER SALES CONSULTANT Gender Identity Not on file Sexual Orientation Not on file Last Filed Vital Signs Vital Sign Reading Time Taken Comments Blood Pressure 128/72 03/04/2025 1:22 PM CDT Pulse 75 03/04/2025 1:22 PM CDT Temperature 36.4 C (97.5 F) 03/04/2025 1:22 PM CDT Respiratory Rate 18 03/04/2025 1:22 PM CDT Oxygen Saturation 98% 03/04/2025 1:22 PM CDT Inhaled Oxygen Concentration - - Weight 49.2 kg (108 lb 6.4 oz) 02/23/2025 1:53 P M CDT Height 152.4 cm (5') 02/23/2025 1:53 PM CDT Body Mass Index 21.17 02/23/2025 1:53 PM CDT Plan of Treatment Upcoming Encounters Date Type Department Care Team (Latest Contact Info) Description 03/11/2025 7:30 AM CDT Hospital Encounter [facility] Operating Room [address] [place] [address] [place] [address] [facility] [address] [address] [place] [address] 03/11/2025 7:30 AM CDT Anesthesia Event [facility] Operating Room [address] [place] [address] [place] [address] [facility] [address] [place] [address] 03/11/2025 7:30 AM CDT - 03/11/2025 12:30 PM CDT Surgery [facility] Operating Room [address] [place] [address] [place] [address] [facility] [address] [place] [address] XI VENTRAL RECTOPEXY - LAPAROSCOPIC ROBOTIC ASSISTED/240 Scheduled Procedures Name Priority Associated Diagnoses Date/Ti me XI VENTRAL RECTOPEXY - LAPAROSCOPIC ROBOTIC ASSISTED Rectal prolapse 03/11/2025 7:30 AM CDT Procedures Procedure Name Priority Date/Time Associated Diagnosis Comments EGFR Routine 03/04/2025 1:07 PM CDT Other constipation Incisional hernia, without obstruction or gangrene DIFFERENTIAL AUTO Routine 03/04/2025 1:0 7 PM CDT Other constipation Incisional hernia, without obstruction or gangrene CBC WITH AUTO DIFFERENTIAL Routine 03/04/2025 1:07 PM CDT Other constipation Incisional hernia, without obstruction or gangrene COMPREHENSIVE METABOLIC PANEL Routine 03/04/2025 1:07 PM CDT Other constipation Incisional hernia, without obstruction or gangrene SURGICAL PATHOLOGY Routine 12/22/2024 2: 10 PM CDT from Last 3 Months Results * eGFR (03/04/2025 1:07 PM CDT) eGFR 87 >=60 mL/min/1. 73 m2 Comment: Interpretive Data Reference Interval Normal >/= 90 mL/min/1.73m2 Mildly decreased* 60 - 89 mL/min/1.73m2 Mildly to moderately decreased 45 - 59 mL/min/1.73m2 Moderately to severely decreased 30 - 44 mL/min/1.73m2 Severely decreased 15 - 29 mL/min/1.73m2 Kidney Failure < 15 mL/min/1.73m2 *Relative to young adult level Estimated glomerular filtration rate is determined by the 2020 CKD-EPI equation recommended by the National Kidney Foundation (A Unifying Approach to GFR Estimation: Recommendations of the NKF-ASK Task Force on Reassessing the Inclusion of Race in Diagnosing Kidney Disease, JASN 202). The CKD-EPI equation should not be used for patients with unstable renal function and has not been validated in children and those over 70. Current interpretive data was last reviewed 2021. Blood 03/04/2025 1:07 PM CDT 03/04/2025 1:31 PM CDT Jeannette Aguilar MD LAB BLOOD ORDERABLES F inal Result [facility] [address] Department [place] [address] * Differential, auto (03/04/2025 1:07 PM CDT) Neutrophil abs 4.18 1.50 - 6.50 K/cumm Imm gran abs 0.02 0.00 - 0.10 K/cumm [facility] Lymphocyte abs 1.76 0.80 - 3.30 K/cumm [facility] Monocyte abs 0.46 0.20 - 0.80 K/cumm [facility] Eosinophil abs 0.05 0.00 - 0.50 K/cumm [facility] Basophil abs 0.01 0.00 - 0.10 K/cumm [facility] Neutrophil pct 64.4 % [facility] Comment: Interpretive Data Percent cell count reference ranges are not reported, since discordance with absolute values may lead to misinterpretation of CBC data. Current Interpretive Data was last revised on 2017. Imm gran pct 0.3 % [facility] Comment: Interpretive Data Percent cell count reference ranges are not reported, since discordance with absolute values may lead to misinterpretation of CBC data. Current Interpretive Data was last revised on 2017. Lymphocyte pct 27.2 % [facility] Comment: Interpretive Data Percent cell count reference ranges are not reported, since discordance with absolute values may lead to misinterpretation of CBC data. Current Interpretive Data was last revised on 2017. Monocyte pct 7.1 % [facility] Comment: Interpretive Data Percent cell count reference ranges are not reported, since discordance with absolute values may lead to misinterpretation of CBC data. Current Interpretive Data was last revised on 2017. Eosinophil pct 0.8 % [facility] Comment: Interpretive Data Percent cell count reference ranges are not reported, since discordance with absolute values may lead to misinterpretation of CBC data. Current Interpretive Data was last revised on 2017. Basophil pct 0.2 % [facility] Comment: Interpretive Data Percent cell count reference ranges are not reported, since discordance with absolute values may lead to misinterpretation of CBC data. Current Interpretive Data was last revised on 2017. Blood 03/04/2025 1:07 PM CDT 03/04/2025 1:31 PM CDT Jeannette Aguilar MD LAB BLOOD ORDERABLES F inal Result [facility] [address] Department [place] [address] * (ABNORMAL) CBC with auto differential (03/04/2025 1:07 PM CDT) WBC 6.48 3.80 - 9.90 K/cumm Hgb 13.1 11.9 - 15.5 g/dL [facility] Hct 39.6 35.6 - 45.5 % [facility] Plt 159 150 - 400 K/cumm [facility] MPV 9.4 9.1 - 12.3 fL [facility] RBC 4.01 3.90 - 5.20 M/cumm [facility] MCV 98.8(H) 81.3 - 96.4 fL [facility] MCH 32.7 27.1 - 33.3 pg [facility] MCHC 33.1 32.3 - 35.7 g/dL [facility] RDW CV 11.2 11.1 - 14.9 % [facility] RDW SD 41.1 35.7 - 48.1 fL [facility] NRBC abs 0.00 0.00 - 0.01 K/cumm [facility] Blood 03/04/2025 1:07 PM CDT 03/04/2025 1:31 PM CDT us Jeannette Aguilar MD LAB BLOOD [place] [address] [address] Department [place] [address] * (ABNORMAL) Comprehensive metabolic panel (03/04/2025 1:07 PM CDT) Sodium 141 135 - 145 mmol/L Potassium, pl 3.7 3.3 - 4.9 mmol/L [facility] Chloride 94(L) 97 - 110 mmol/L [facility] CO2 38(H) 22 - 32 mmol/L [facility] Anion gap 9 2 - 15 mmol/L [facility] BUN 20 6 - 25 mg/dL [facility] Creatinine 0.66 0.60 - 1.10 mg/dL [facility] Glucose 128 70 - 199 mg/dL [facility] Comment: Interpretive Data Fasting glucose >/= 126 [...] classification and Diagnosis of Diabetes Diabetes Care 202; 46: S19-S40. Current interpretive data was last revised 2022. Calcium 9.5 8.5 - 10.3 mg/dL [facility] Bilirubin, total 0.3 0.1 - 1.2 mg/dL [facility] Protein, pl 7.1 6.5 - 8.5 g/dL [facility] Albumin 4.0 3.5 - 5.0 g/dL [facility] Alk phos 90 40 - 130 Units/L [facility] ALT 12 7 - 45 Units/L [facility] AST 17 10 - 45 Units/L [facility] Blood 03/04/2025 1:07 PM CDT 03/04/2025 1:31 PM CDT Jeannette Aguilar MD LAB BLOOD ORDERABLES F inal Result [facility] [address] Department [place] [address] * Surgical pathology (12/22/2024 2:10 PM CDT) Skin, shave biopsy 12/22/2024 2:10 PM CDT 12/23/2024 9:05 AM CDT Narrative 12/24/2024 4:01 PM CDT EPIC results best viewed via link to PDF [facility] [address] [place] [address], [address], [place] [address] [email or web address] Note to Patients: This report may [...] details. FINAL REPORT Patient Information: PATIENT NAME: PHOEBE HILLMAN SEX: F : 1940 (Age: 84) Specimen Information: COLLECTED: 12/22/2024 RECEIVED: 12/23/2024 REPORTED: 12/24/2024 Submitting Physician Information: CORNEL[facility], [address] [place], [place] [id number], DERMATOPATHOLOGY REPORT RESULTS DIAGNOSIS: SKIN, RIGHT LATERAL [...] sxt/anc ICD-9 A; ZSD.877 Clerical Data A; 07202 The characteristics of special, immunohistochemical, and immunofluorescence stains and in-situ hybridization tests performed by the [facility] were deemed acceptable in ongoing engagement quality consultant measures and in compliance with regulations drawn from the Clinical Laboratory Improvement Act [id number] (CLIA '88). Control reactions for all stains performed were deemed adequate and appropriate by a pathologist prior to evaluation of patient tissue. Some diagnoses were rendered with the assistance of laboratory-developed tests utilizing analyte-specific reagents; the performance characteristic of these tests were determined by [facility] and are not cleared or approved by the [place] Food an Drug administration. Laboratory developed test may only be performed in a facility that is certified by the [facility] as a high-complexity laboratory under CLIA '88. These tests are used for clinical purposes and are not investigational. us Notinfile Unknown LAB PATHOLOGY ORDERABLES Final Result from Last 3 Months Insurance [facility] MEDICARE ADVANTAGE [facility] MEDICARE Address: [facility] [address] [place] [address] IDTN [facility] MEDICARE ADVANTAGE [facility] MEDICARE Address: [address] [address] [place] [address] [facility] CHOICE PLUS [facility] HMO/PPO Address: [address] [address] [place] [address] [facility] MEDICARE Address: [address] [address] [place] [address] IDPA IDPA [facility] MEDICARE ADVANTAGE Advance Directives For more information, please contact: [phone] * Full Code (Latest Code Status on File) Date Activated Date Inactivated Comments 09/23/2021 11:07 PM 2021 5:10 PM * Full Code Date Activated Date Inactivated Comments 09/11/2020 2:58 AM 09/16/2020 7:36 PM * Full Code Date Activated Date Inactivated Comments 08/23/2020 9:06 PM 08/30/2020 10:29 PM Care Teams Enamel Buffer Relationship Specialty Start Date End Date Eusebio Nagy MD PCP - General Internal Medicine 12/21/20 To Caballero MD [address] [place] [address] Referring Physician Obstetrics and Gynecology 06/09/21 Jacinto Aguilar MD [address] [place] [address] (work) Internal Medicine 11/08/22
--- OUTSIDE RECORDS SUMMARY | 2025-03-08 18:16 | XMS_ITS ---
Author Organization [place] [id number] [facility] Address [address] [place] [address] Care Team Providers Care Gun Examiner Name Role Phone Eusebio Nagy MD Primary Care Provider [phone] To Caballero MD Unavailable [phone] Jacinto Aguilar MD Unavailable Active Problems Problem Noted Date Diagnosed Date [...] 08/29/2020 Assessment & Plan (08/29/2020 12:37 PM PROCESS IMPROVEMENT MANAGER): Cont daily replacement GERD (gastroesophageal reflux disease) Assessment & Plan (08/27/2020 7:30 PM PROCESS IMPROVEMENT MANAGER): Continue Home Pantoprazole 40mg Daily Chronic obstructive pulmonar y disease with acute exacerbation 08/23/2020 Assessment & Plan (08/29/2020 12:35 PM PROCESS IMPROVEMENT MANAGER): Continue Home Monteleukast 10mg Daily. Cont O2- baseline 3 L, wean as able Start ICA/LABA, LAMA HTN (hypertension) 08/23/2020 Assessment & Plan (08/27/2020 7:31 PM PROCESS IMPROVEMENT MANAGER): HCTZ 12.5mg Oral Daily, Metoprolol Succinate 100mg Daily. Anxiety 02/15/2020 Chronic congestive heart failure 02/15/2020 Depression 02/15/2020 Pulmonary hypertension, moderate to severe 02/14 Sleep apnea 02/15/2020 Current Treatment and Therapy Plans No current plan information found. Past Treatment and Therapy Plans Lifetime Dose Tracking * Chemical Lifetime Dose Automatic Entry Manual Entr y DLP 1,843.9 mGycm 1,843.9 mGycm 0 mGycm Resolved Problems Problem Noted Date Diagnosed Date Resolved Date Acute on chronic respiratory failure with hypoxia and hypercapnia 08/27/2020 09/13/2020 Assessment & Plan (08/29/2020 12:36 PM PROCESS IMPROVEMENT MANAGER): Presented w/hypercapnic respiratory failure likely to COPD [...] 021 Assessment & Plan (08/27/2020 7:23 PM PROCESS IMPROVEMENT MANAGER): Likely toxic-metabolic in etiology in the setting of above respiratory failure/hypercapnia. Baseline she is A&O x3. 08/23 Ammonia 52H, TSH 0.26L, T4 1.18, Lactate 0.5 - hCT NAIA - UDS with benzos and oxycodone. - Continue monitor Iron deficiency anemia 08/27/202009/13 Assessment & Plan (08/29/2020 12:37 PM PROCESS IMPROVEMENT MANAGER): Presented with Hgb in 8s without explanation, MCV high 70s, iron profile 13, ferritin 28, Tsat 4%, now s/p 1U PRBCs and 1 x Ferrlecit. - Consider age-appropriate screening and iron supplementation on outpatient basis - started fe sulf bid 08/28 Acute hypercapnic respiratory failure 08/23/2020 09/13/2020 Assessment & Plan (08/29/2020 12:33 PM PROCESS IMPROVEMENT MANAGER): 2/2 copd exacerbation Sp antibiotics and 5 days of prednisone Wean O2 as able Encephalopathy acute 08/23/2020 021 Hyperlipidemia 02/15/2020 09/13/2020 Disorder of lung 05/20/2015 09/13/2020 Thoracic spine fracture 04/2021 Overview (08/23/2020): 3 months ago Assessment & Plan (08/29/2020 12:36 PM PROCESS IMPROVEMENT MANAGER): Suspect secondary to fall 3 months ago where patient was reported to have sustained spinal fractures. Has been taking opiates for pain at home. 08/23 CT Abd/Pelv Moderate to Severe Compression fractures at T11 and T12. -PT/OT -Vit d replacement -Consider bone health OP evaluation COPD (chronic obstructive pulmonary disease) 09/13/2020
--- OUTSIDE RECORDS SUMMARY | 2025-03-08 18:16 | XMS_ITS | Clinical Summary ---
Author Organization [place] [id number] [facility] Address [address] [place] [address] Care Team Providers Care Service Consultant Name Role Phone Eusebio Nagy MD Primary Care Provider + [phone] To Caballero MD Unavailable [phone] Jacinto Aguilar MD Unavailable Allergies Active [...] 02/24/2025 Overview (02/24/2025): s/p left knee suregry 2010 Diverticulitis of colon 02/24/2025 Overview (02/24/2025): s/p [...] 08/29/2020 Assessment & Plan (08/29/2020 12:37 PM MEDIA MARKETING MANAGER): Cont daily replacement GERD (gastroesophageal reflux disease) Assessment & Plan (08/27/2020 7:30 PM MEDIA MARKETING MANAGER): Continue Home Pantoprazole 40mg Daily Chronic obstructive pulmonar y disease with acute exacerbation 08/23/2020 Assessment & Plan (08/29/2020 12:35 PM MEDIA MARKETING MANAGER): Continue Home Monteleukast 10mg Daily. Cont O2- baseline 3 L, wean as able Start ICA/LABA, LAMA HTN (hypertension) 08/23/2020 Assessment & Plan (08/27/2020 7:31 PM MEDIA MARKETING MANAGER): HCTZ 12.5mg Oral Daily, Metoprolol Succinate 100mg Daily. Anxiety 02/15/2020 Chronic congestive heart failure 02/15/2020 Depression 02/15/2020 Pulmonary hypertension, moderate to severe 02/14 Sleep apnea 02/15/2020 Resolved Problems Problem Noted Date Diagnosed Date Resolved Date Acute on chronic respiratory failure with hypoxia and hypercapnia 08/27/2020 09/13/2020 Assessment & Plan (08/29/2020 12:36 PM MEDIA MARKETING MANAGER): Presented w/hypercapnic respiratory failure likely to [...] 021 Assessment & Plan (08/27/2020 7:23 PM MEDIA MARKETING MANAGER): Likely toxic-metabolic in etiology in the setting of above respiratory failure/hypercapnia. Baseline she is A&O x3. 08/23 Ammonia 52H, TSH 0.26L, T4 1.18, Lactate 0.5 - hCT NAIA - UDS with benzos and oxycodone. - Continue monitor Iron deficiency anemia 08/27/202009/13 Assessment & Plan (08/29/2020 12:37 PM MEDIA MARKETING MANAGER): Presented with Hgb in 8s without explanation, MCV high 70s, iron profile 13, ferritin 28, Tsat 4%, now s/p 1U PRBCs and 1 x Ferrlecit. - Consider age-appropriate screening and iron supplementation on outpatient basis - started fe sulf bid 08/28 Acute hypercapnic respiratory failure 08/23/2020 09/13/2020 Assessment & Plan (08/29/2020 12:33 PM MEDIA MARKETING MANAGER): 2/2 copd exacerbation Sp antibiotics and 5 days of prednisone Wean O2 as able Encephalopathy acute 08/23/2020 021 Hyperlipidemia 02/15/2020 09/13/2020 Disorder of lung 05/20/2015 09/13/2020 Thoracic spine fracture 04/2021 Overview (08/23/2020): 3 months ago Assessment & Plan (08/29/2020 12:36 PM MEDIA MARKETING MANAGER): Suspect secondary to fall 3 months [...] Description 03/04/2025 12:15 PM CDT Pre-Admission Testing [facility] Pre Anesthesia Testing [address] [place], [place] [id number] Other constipation; Incisional hernia, without obstruction or gangrene 02/23/2025 2:00 PM CDT Office Visit [facility] Surgery [address] [facility] [address] [place] [id number] Jeannette Aguilar MD Grade IV internal hemorrhoids (Primary Dx); Rectal prolapse; Incontinence of feces with fecal urgency; Other constipation; Incisional hernia, without obstruction or gangrene 12/22/2024 Orders Only [facility] [address] [place] [address] Unknown, Notinfile from Last 3 Months Immunizations Immunization Administration Dates Next Due Influenza, Quadrivalent, Spl it, Intramuscular 06/05/2019 Influenza, Quadrivalent, Spl it, Preservative Free, Intramuscular 05/23/2013 Influenza, Trivalent, High D ose, Split, Preservative Free, Intramuscular 04/24/2018,04/28/2017,04/27/2015,05/12 Influenza, Trivalent, IM (MDV) 05/21/2013 Influenza, Trivalent, Preser vative Free, Intramuscular 05/08/2013 Influenza, Unspecified 08/14/2022,05/05/2020 Pneumococcal, Unspecified 08/05/2016 Surgical History Surgery Date Site/Laterality Comments JOINT REPLACEMENT Left knee THUMB SURGERY HYSTERECTOMY COLON SURGERY APPENDECTOMY HERNIA REPAIR Medical History Medical History Date Comments COPD (chronic obstructive pulmonary disease) Hypertension Thoracic spine fracture (HCC) 3 months ago Iron deficiency anemia SD (myocardial infarction) (HCC) VANDANA (obstructive sleep apnea) Anemia GERD (gastroesophageal reflux disease) Melanoma (HCC) LITTLE SHELL TRIBE (hard of hearing) Wears hearing aid Oxygen dependent 3L at all times Family History Medical History Relation Name Comments [...] on file Legal Sex Female 11:40 AM MEDIA MARKETING MANAGER Gender Identity Not on file Sexual [...] Description 03/11/2025 7:30 AM CDT Hospital Encounter [facility] Operating Room [address] [place] [address] [place] [address] [facility] [address], [place] [address] 03/11/2025 7:30 AM CDT Anesthesia Event [facility] Operating Room [address] [place] [address] [place] [address] [address] 03/11/2025 7:30 AM CDT - 03/11/2025 12:[address] [facility] Operating Room [address] [place] [address] [place] [address] [facility] [facility] [address], [place] [id number] XI VENTRAL RECTOPEXY - LAPAROSCOPIC ROBOTIC ASSISTED/240 Scheduled Procedures Name Priority Associated Diagnoses Date/Ti me XI VENTRAL RECTOPEXY - LAPAROSCOPIC ROBOTIC ASSISTED Rectal prolapse 03/11/2025 7:30 AM CDT Health Maintenance Due Date Last Done Comments Depression Screening 1941 Osteoporosis Screening-Bone Density Scan 1941 DTaP/Tdap/Td Vaccine (1 - Tdap) 1952 Zoster Vaccine (1 of 2) 1991 Well Visit 65+ 2006 Pneumococcal vaccine 65+ (2 of 2 - PPSV23) 11/07/2016 09/12/2016, 08/05/2016 Influenza Vaccine (#1) 2025 4, 08/14/2022, 07/25/2020, Additional history exists Fall Risk Assessment 03/04/2026 03/04/2025, 12/06/19 23 Hepatitis B Screening Completed 06/12/1999 Procedures Procedure Name Priority Date/Time Associated Diagnosis [...] MD LAB BLOOD ORDERABLES F inal Result [facility] [address] [facility] [place] Department [place] [address] * Differential, auto (03/04/2025 1:07 PM CDT) Neutrophil abs 4.18 1.50 - 6.50 K/cumm Imm gran abs 0.02 0.00 - 0.10 K/cumm [facility] Lymphocyte abs 1.76 0.80 - 3.30 K[facility]cumm [facility] Monocyte abs 0.46 0.20 - 0.80 K/cumm [facility] Eosinophil abs 0.05 0.00 - 0.50 K/cumm [facility] Basophil abs 0.01 0.00 - 0.10 K/cumm [facility] Neutrophil pct 64.4 % [facility] Comment: Interpretive Data Percent cell count reference ranges are not reported, since discordance with absolute values may lead to misinterpretation of CBC data. Current Interpretive Data was last revised on 2017. Imm gran pct 0.3 % [facility] Comment: Interpretive Data Percent cell count reference ranges are not reported, since discordance with absolute values may lead to misinterpretation of CBC data. Current Interpretive Data was last revised on 2017. Lymphocyte pct 27.2 % [facility] Comment: Interpretive Data Percent cell count reference [...] ORDERABLES F inal Result Performing Organization Address City/[facility]/ZIP Co de Phone Number AGGIE MARC[place] [address] [place] [address] * (ABNORMAL) CBC with auto differential (03/04/2025 1:07 PM CDT) WBC 6.48 3.80 - 9.90 K/cumm Hgb 13.1 11.9 - 15.5 g/dL [facility] Hct 39.6 35.6 - 45.5 % [facility] Plt 159 150 - 400 K/cumm [facility] MPV 9.4 9.1 - 12.3 fL [facility] RBC 4.01 3.90 - 5.20 M/cumm [facility] MCV 98.8(H) 81.3 - 96.4 fL [facility] MCH 32.7 27.1 - 33.3 pg [facility] MCHC 33.1 32.3 - 35.7 g/dL [facility] RDW CV 11.2 11.1 - 14.9 % [facility] RDW SD 41.1 35.7 - 48.1 fL [facility] NRBC abs 0.00 0.00 - 0.01 K/cumm [facility] Blood 03/04/2025 1:07 PM CDT 03/04/2025 1:31 PM CDT Jeannette Aguilar MD LAB BLOOD ORDERABLES F inal Result Performing Organization Address City/[facility]/ZIP Co de Phone Number AGGIE MARC[place] [address] [address] [place] [address] * (ABNORMAL) Comprehensive metabolic panel (03/04/2025 1:07 [...] classification and Diagnosis of Diabetes Diabetes Care 2021; 46: S19-S40. Current interpretive data was last [...] MD LAB BLOOD ORDERABLES F inal Result [facility] [address] [address] Department [place] [address] * Surgical pathology (12/22/2024 2:10 PM CDT) Skin, shave biopsy 12/22/2024 2:10 PM CDT 12/23/2024 9:05 AM CDT Narrative 12/24/2024 4:01 PM CDT EPIC results best viewed via link to PDF [facility] [facility], [address], [place] [address] [email or web address] Note to Patients: This report may contain [...] REPORTED: 12/24/2024 Submitting Physician Information: Savanna Willams [facility], [address] [place] [address], DERMATOPATHOLOGY REPORT RESULTS DIAGNOSIS: SKIN, RIGHT LATERAL [...] sxt/anc ICD-9 A; ZSD.877 Clerical Data A; 06680 The characteristics of special, immunohistochemical, and immunofluorescence stains and in-situ hybridization tests performed by the [facility] Dermatopathology Center were deemed acceptable in ongoing customer quality engineer measures and in compliance with regulations drawn from the Clinical Laboratory Improvement Act zl2134 (CLIA '88). Control reactions for all stains performed were deemed adequate and appropriate by a pathologist prior to evaluation of patient tissue. Some diagnoses were rendered with the assistance of laboratory-developed tests utilizing analyte-specific reagents; the performance characteristic of these tests were determined by [facility] and are not cleared or approved by the US Food an Drug administration. Laboratory developed test may only be performed in a facility that is certified by the [facility] as a high-complexity laboratory under CLIA '88. These tests are used for clinical purposes and are not investigational. us Notinfile Unknown LAB PATHOLOGY ORDERABLES Final Result from Last 3 Months Insurance [facility] MEDICARE ADVANTAGE [facility] IDPA [facility] MEDICARE ADVANTAGE [facility] CHOICE PLUS IDPA IDPA [facility] MEDICARE ADVANTAGE Advance Directives For more information, please contact: [phone] * Full Code (Latest Code Status on File) Date Activated Date Inactivated Comments 09/23/2021 11:07 PM 2021 5:10 PM * Full Code Date Activated Date Inactivated Comments 09/11/2020 2:58 AM 09/16/2020 7:36 PM * Full Code Date Activated Date Inactivated Comments 08/23/2020 9:06 PM 08/30/2020 10:29 PM Care Teams Service Consultant Relationship Specialty Start Date End Date Eusebio Nagy MD PCP - General Internal Medicine 12/21/20 To Caballero MD [address] [place] [address] Referring Physician Obstetrics and Gynecology 06/09/21 Jacinto Aguilar MD [address] [facility] [address] [place] [address] Internal Medicine 11/08/22
[2025-03-08 19:10] VITALS: BP 105/66; PULSE 85; RESP 16; TEMP 36.4; O2SAT 100
--- OUTSIDE RECORDS SUMMARY | 2025-03-08 21:12 | XMS_ITS | Referral Summary ---
Author Organization [facility] [address] [facility] Address [address] [place] [address] Care Team Providers Care Deputy Harbormaster Name Role Phone Eusebio Nagy MD Primary Care Provider To Caballero MD Unavailable [phone] Jacinto Aguilar MD Unavailable Encounters Date Type Department Care Team Description 03/04/2025 12:15 PM CDT Pre-Admission Testing [facility] Pre Anesthesia Testing [address] [place] [address] Other constipation; Incisional hernia, without obstruction or gangrene 02/23/2025 2:00 PM CDT Office Visit [facility] Surgery [address] [facility] [address], [place] [address] Jeannette Aguilar MD Grade IV internal hemorrhoids (Primary Dx); Rectal prolapse; Incontinence of feces with fecal urgency; Other constipation; Incisional hernia, without obstruction or gangrene 12/22/2024 Orders Only [facility] [address] [place] [address] Unknown, Notinfile from Last 3 Months Allergies [...] 08/29/2020 Assessment & Plan (08/29/2020 12:37 PM PNEUMATIC TESTER MECHANIC): Cont daily replacement GERD (gastroesophageal reflux disease) Assessment & Plan (08/27/2020 7:30 PM PNEUMATIC TESTER MECHANIC): Continue Home Pantoprazole 40mg Daily Chronic obstructive pulmonar y disease with acute exacerbation 08/23/2020 Assessment & Plan (08/29/2020 12:35 PM PNEUMATIC TESTER MECHANIC): Continue Home Monteleukast 10mg Daily. Cont O2- baseline 3 L, wean as able Start ICA/LABA, LAMA HTN (hypertension) 08/23/2020 Assessment & Plan (08/27/2020 7:31 PM PNEUMATIC TESTER MECHANIC): HCTZ 12.5mg Oral Daily, Metoprolol Succinate 100mg Daily. Anxiety 02/15/2020 Chronic congestive heart failure 02/15/2020 Depression 02/15/2020 Pulmonary hypertension, moderate to severe 02/14 Sleep apnea 02/15/2020 Resolved Problems Problem Noted Date Diagnosed Date Resolved Date Acute on chronic respiratory failure with hypoxia and hypercapnia 08/27/2020 09/13/2020 Assessment & Plan (08/29/2020 12:36 PM PNEUMATIC TESTER MECHANIC): Presented w/hypercapnic respiratory failure likely to COPD [...] 021 Assessment & Plan (08/27/2020 7:23 PM PNEUMATIC TESTER MECHANIC): Likely toxic-metabolic in etiology in the setting of above respiratory failure/hypercapnia. Baseline she is A&O x3. 08/23 Ammonia 52H, TSH 0.26L, T4 1.18, Lactate 0.5 - hCT NAIA - UDS with benzos and oxycodone. - Continue monitor Iron deficiency anemia 08/27/202009/13 Assessment & Plan (08/29/2020 12:37 PM PNEUMATIC TESTER MECHANIC): Presented with Hgb in 8s without explanation, MCV high 70s, iron profile 13, ferritin 28, Tsat 4%, now s/p 1U PRBCs and 1 x Ferrlecit. - Consider age-appropriate screening and iron supplementation on outpatient basis - started fe sulf bid 08/28 Acute hypercapnic respiratory failure 08/23/2020 09/13/2020 Assessment & Plan (08/29/2020 12:33 PM PNEUMATIC TESTER MECHANIC): 2/2 copd exacerbation Sp antibiotics and 5 days of prednisone Wean O2 as able Encephalopathy acute 08/23/2020 021 Hyperlipidemia 02/15/2020 09/13/2020 Disorder of lung 05/20/2015 09/13/2020 Thoracic spine fracture 04/2021 Overview (08/23/2020): 3 months ago Assessment & Plan (08/29/2020 12:36 PM PNEUMATIC TESTER MECHANIC): Suspect secondary to fall 3 months ago [...] on file Legal Sex Female 11:40 AM PNEUMATIC TESTER MECHANIC Gender Identity Not on file Sexual Orientation [...] Description 03/11/2025 7:30 AM CDT Hospital Encounter [facility] Operating Room [address] [place] [address] [place] [address] [facility] [address] [place] [address] 03/11/2025 7:30 AM CDT Anesthesia Event [facility] Operating Room [address] [place] [address] [place] [address] [facility] [address] [place] [address] 03/11/2025 7:30 AM CDT - 03/11/2025 12:30 PM CDT Surgery [facility] Operating Room [address] [place] [address] [place] [address] [facility] [address] [place] [address] XI VENTRAL RECTOPEXY - LAPAROSCOPIC ROBOTIC ASSISTED/240 [...] 1:07 PM CDT 03/04/2025 1:31 PM CDT Jaennette Aguilar MD LAB BLOOD ORDERABLES F inal Result [facility] [address] Department [place] [address] * Differential, auto (03/04/2025 1:07 PM CDT) Neutrophil abs 4.18 1.50 - 6.50 K/cumm Imm gran abs 0.02 0.00 - 0.10 K/cumm [facility] Lymphocyte abs 1.76 0.80 - 3.30 K/cumm [facility] Monocyte abs 0.46 0.20 - 0.80 K/cumm [facility] Eosinophil abs 0.05 0.00 - 0.50 K/cumm [facility] Basophil abs 0.01 0.00 - 0.10 K/cumm [facility] Neutrophil pct 64.4 % [facility] Comment: Interpretive Data Percent cell count reference ranges are not reported, since discordance with absolute values may lead to misinterpretation of CBC data. Current Interpretive Data was last revised on 2017. Imm gran pct 0.3 % [facility] Comment: Interpretive Data Percent cell [...] MD LAB BLOOD ORDERABLES F inal Result [facility] [address] Department [place] [address] * (ABNORMAL) CBC with auto differential (03/04/2025 1:07 PM CDT) WBC 6.48 3.80 - 9.90 K/cumm Hgb 13.1 11.9 - 15.5 g/dL [facility] Hct 39.6 35.6 - 45.5 % [facility] Plt 159 150 - 400 K/cumm [facility] MPV 9.4 9.1 - 12.3 fL [facility] RBC 4.01 3.90 - 5.20 M/cumm [facility] MCV 98.8(H) 81.3 - 96.4 [...] BLOOD [place] [address] [address] Department [place] [address] * (ABNORMAL) Comprehensive metabolic panel (03/04/2025 1:07 [...] LAB BLOOD ORDERABLES F inal Result [facility] [address] Department [place] [address] * Surgical pathology (12/22/2024 2:10 PM CDT) Skin, shave biopsy 12/22/2024 2:10 PM CDT 12/23/2024 9:05 AM CDT Narrative 12/24/2024 4:01 PM CDT EPIC results best viewed via link to PDF [facility]erm[facility] [address] [place] [address], [address], [place] [address] [email or web address] Note to Patients: This report may contain [...] Physician Information: CORNELIUS Shafer[facility], [address] [place], [place] [address], DERMATOPATHOLOGY REPORT RESULTS DIAGNOSIS: SKIN, RIGHT LATERAL [...] sxt/anc ICD-9 A; ZSD.877 Clerical Data A; [address]20 The characteristics of special, immunohistochemical, and immunofluorescence stains and in-situ hybridization tests performed by the [facility] Dermatopathology Center were deemed acceptable in ongoing dairy quality assurance officer measures and in compliance with regulations drawn from the Clinical Laboratory Improvement Act [id number] (CLIA '88). Control reactions for all stains performed were deemed adequate and appropriate by a pathologist prior to evaluation of patient tissue. Some diagnoses were rendered with the assistance of laboratory-developed tests utilizing analyte-specific reagents; the performance characteristic of these tests were determined by [facility] and are not cleared or approved by the US Food an Drug administration. Laboratory developed test may only be performed in a facility that is certified by the [facility] as a high-complexity laboratory under CLIA '88. These tests are used for clinical purposes and are not investigational. us Notinfile Unknown LAB PATHOLOGY ORDERABLES Final Result from Last 3 Months Insurance [facility] MEDICARE ADVANTAGE [facility] MEDICARE Address: [facility] [address] [place] [address] [facility] MEDICARE ADVANTAGE [facility] MEDIC[facility] Address: [address] [address] [place] [address] [facility] CHOICE PLUS [facility] HMO/PPO Address: [address] [address] [place] [address] [facility] MEDIC[facility] Address: [address] [address] [place] [address] IDPA IDPA [facility] MEDICARE ADVANTAGE Advance Directives For more information, please contact: [phone] * Full Code (Latest Code Status on File) Date Activated Date Inactivated Comments 09/23/2021 11:07 PM 2021 5:10 PM * Full Code Date Activated Date Inactivated Comments 09/11/2020 2:58 AM 09/16/2020 7:36 PM * Full Code Date Activated Date Inactivated Comments 08/23/2020 9:06 PM 08/30/2020 10:29 PM Care Teams Deputy Harbormaster Relationship Specialty Start Date End Date Eusebio Nagy MD PCP - General Internal Medicine 12/21/20 To Caballero MD [address] [place] [address] Referring Physician Obstetrics and Gynecology 06/09/21 Jacinto Aguilar MD [address] [place] [address] (work) Internal Medicine 11/08/22
--- OUTSIDE RECORDS SUMMARY | 2025-03-08 21:12 | XMS_ITS | Clinical Summary ---
Author Organization [facility] Address [address] [facility] [place] [address] Care Team Providers Care Manager Restaurant Name Role Phone Unavailable Primary Care Provider Unavailabl e Source Comments [facility],non-owned Affiliates and Associated Physician Practices is amultiple site organization consisting of ambulatory clinics and hospital sitesin [place], [place], [place] and [place]. This disclosure is being madepursuant to the Care Everywhere program and may not contain all information available regarding this patient. Last updated 18.[facility] Allergies No known active allergies Medications * [...] on file Legal Sex Female 12:12 PM SHOOK SPLICER Gender Identity Not on file Sexual Orientation [...] patient's age to complete this topic Insurance [facility] MANAGED MEDICARE ADV MEDICAID - [place] MEDICAID - [id number] Member Subscriber Plan / Payer (Ef fective 2020-Present) Name:DawnDeirdrece Relation to Subscriber:Self Name:RAFYPHOEBE Payer ID:Not on file Group ID:Not on file Type:Medicaid Address: [address] MANAGED MEDICARE ADV MEDICAID - [facility] Member Subscriber Plan / Payer (Ef fective 2020-Present) Name:Phoebe Dawn Relation to Subscriber:Self Name:PHOEBE HILLMAN Payer ID:Not on file Group ID:Not on file Type:Medicaid Address: [address] MANAGED MEDICARE [facility] Care Address: [place] [id number] Advance Directives * Full Code (Latest Code Status on File) Date Activated Date Inactivated Comments 11/04/2020 7:20 PM 11/16/2020 12:47 PM * Full Code Date Activated Date Inactivated Comments 11/04/2020 7:19 PM 11/04/2020 7:20 PM
--- OUTSIDE RECORDS SUMMARY | 2025-03-08 21:12 | XMS_ITS | Clinical Summary ---
Author Organization [facility] [id number] [place] [facility] Address [address] [place] [address] Care Team Providers Care Drupal Programmer Name Role Phone Eusebio Nagy MD Primary Care Provider [phone] To Caballero MD Unavailable [phone] Jacinto Aguilar MD Unavailable Allergies Active [...] 08/29/2020 Assessment & Plan (08/29/2020 12:37 PM SHAMPOOER): Cont daily replacement GERD (gastroesophageal reflux disease) Assessment & Plan (08/27/2020 7:30 PM SHAMPOOER): Continue Home Pantoprazole 40mg Daily Chronic obstructive pulmonar y disease with acute exacerbation 08/23/2020 Assessment & Plan (08/29/2020 12:35 PM SHAMPOOER): Continue Home Monteleukast 10mg Daily. Cont O2- baseline 3 L, wean as able Start ICA/LABA, LAMA HTN (hypertension) 08/23/2020 Assessment & Plan (08/27/2020 7:31 PM SHAMPOOER): HCTZ 12.5mg Oral Daily, Metoprolol Succinate 100mg Daily. Anxiety 02/15/2020 Chronic congestive heart failure 02/15/2020 Depression 02/15/2020 Pulmonary hypertension, moderate to severe 02/14 Sleep apnea 02/15/2020 Resolved Problems Problem Noted Date Diagnosed Date Resolved Date Acute on chronic respiratory failure with hypoxia and hypercapnia 08/27/2020 09/13/2020 Assessment & Plan (08/29/2020 12:36 PM SHAMPOOER): Presented w/hypercapnic respiratory failure likely to COPD [...] 021 Assessment & Plan (08/27/2020 7:23 PM SHAMPOOER): Likely toxic-metabolic in etiology in the setting of above respiratory failure/hypercapnia. Baseline she is A&O x3. 08/23 Ammonia 52H, TSH 0.26L, T4 1.18, Lactate 0.5 - hCT NAIA - UDS with benzos and oxycodone. - Continue monitor Iron deficiency anemia 08/27/202009/13 Assessment & Plan (08/29/2020 12:37 PM SHAMPOOER): Presented with Hgb in 8s without explanation, MCV high 70s, iron profile 13, ferritin 28, Tsat 4%, now s/p 1U PRBCs and 1 x Ferrlecit. - Consider age-appropriate screening and iron supplementation on outpatient basis - started fe sulf bid 08/28 Acute hypercapnic respiratory failure 08/23/2020 09/13/2020 Assessment & Plan (08/29/2020 12:33 PM SHAMPOOER): 2/2 copd exacerbation Sp antibiotics and 5 days of prednisone Wean O2 as able Encephalopathy acute 08/23/2020 021 Hyperlipidemia 02/15/2020 09/13/2020 Disorder of lung 05/20/2015 09/13/2020 Thoracic spine fracture 04/2021 Overview (08/23/2020): 3 months ago Assessment & Plan (08/29/2020 12:36 PM SHAMPOOER): Suspect secondary to fall 3 months ago [...] Description 03/04/2025 12:15 PM CDT Pre-Admission Testing [facility] Pre Anesthesia Testing [address] [place], [place] [id number] Other constipation; Incisional hernia, without obstruction or gangrene 02/23/2025 2:00 PM CDT Office Visit [facility] Surgery [address] [facility] [address] [place] [id number] Jeannette Aguilar MD Grade IV internal hemorrhoids (Primary Dx); Rectal prolapse; Incontinence of feces with fecal urgency; Other constipation; Incisional hernia, without obstruction or gangrene 12/22/2024 Orders Only [facility] [address] [place] [address] Unknown, Notinfile from Last 3 Months Immunizations [...] (HCC) 3 months ago Iron deficiency anemia DC (myocardial infarction) (HCC) VANDANA (obstructive sleep apnea) Anemia GERD (gastroesophageal reflux disease) Melanoma (HCC) [place] (hard of hearing) Wears hearing aid Oxygen [...] on file Legal Sex Female 11:40 AM SHAMPOOER Gender Identity Not on file Sexual Orientation [...] Description 03/11/2025 7:30 AM CDT Hospital Encounter [facility] Operating Room [address] [place] [address] [place] [address] [facility] [address], [place] [address] 03/11/2025 7:30 AM CDT Anesthesia Event [facility] Operating Room [address] [place] [address] [place] [address] [address] 03/11/2025 7:30 AM CDT - 03/11/2025 12:30 PM CDT Surgery [facility] Operating Room [address] [place] [address] [place] [address] [facility] [address], [place] [id number] XI VENTRAL RECTOPEXY - LAPAROSCOPIC ROBOTIC ASSISTED/240 [...] MD LAB BLOOD ORDERABLES F inal Result [facility] [address] [facility] [place] [address] * Differential, auto (03/04/2025 1:07 PM CDT) Neutrophil abs 4.18 1.50 - 6.50 K/cumm Imm gran abs 0.02 0.00 - 0.10 K/cumm [facility] Lymphocyte abs 1.76 0.80 - 3.30 K/cumm [facility] Monocyte abs 0.46 0.20 - 0.80 K/cumm [facility] Eosinophil abs 0.05 0.00 - 0.50 K/cumm [facility] Basophil abs 0.01 0.00 - 0.10 K/cumm [facility] Neutrophil pct 64.4 % [facility] Comment: Interpretive Data Percent cell count reference ranges are not reported, since discordance with absolute values may lead to misinterpretation of CBC data. Current Interpretive Data was last revised on 2017. Imm gran pct 0.3 % [facility] Comment: Interpretive Data Percent cell count reference ranges are not reported, since discordance with absolute values may lead to misinterpretation of CBC data. Current Interpretive Data was last revised on 2017. Lymphocyte pct 27.2 % [facility] Comment: Interpretive Data Percent cell count reference [...] 1:07 PM CDT 03/04/2025 1:31 PM CDT eJannette Aguilar MD LAB BLOOD ORDERABLES F inal Result Performing Organization Address City/[facility]/ZIP Co de Phone Number AGGIE MARCUS [address] [address] [place] [address] * (ABNORMAL) CBC with auto differential (03/04/2025 1:07 PM CDT) WBC 6.48 3.80 - 9.90 K/cumm Hgb 13.1 11.9 - 15.5 g/dL [facility] Hct 39.6 35.6 - 45.5 % [facility] Plt 159 150 - 400 K/cumm [facility] MPV 9.4 9.1 - 12.3 fL [facility] RBC 4.01 3.90 - 5.20 M/cumm [facility] MCV 98.8(H) 81.3 - 96.4 fL [facility] MCH 32.7 27.1 - 33.3 pg [facility] MCHC 33.1 32.3 - 35.7 g/dL [facility] RDW CV 11.2 11.1 - 14.9 % [facility] RDW SD 41.1 35.7 - 48.1 fL [facility] NRBC abs 0.00 0.00 - 0.01 K/cumm [facility] Blood 03/04/2025 1:07 PM CDT 03/04/2025 1:31 PM CDT Jeannette Aguilar MD LAB BLOOD ORDERABLES F inal Result Performing Organization Address City/[facility]/ZIP Co de Phone Number AGGIE MARCUS [address] [address] [place] [address] * (ABNORMAL) Comprehensive metabolic panel [...] MD LAB BLOOD ORDERABLES F inal Result [facility] [address] [address] [place] [address] * Surgical pathology (12/22/2024 2:10 PM CDT) Skin, shave biopsy 12/22/2024 2:10 PM CDT 12/23/2024 9:05 AM CDT Narrative 12/24/2024 4:01 PM CDT EPIC results best viewed via link to PDF [facility] [facility], [address], [place] [address] [email or web address] Note to Patients: This report may [...] REPORTED: 12/24/2024 Submitting Physician Information: Savanna Willams [facility], [address] [place] [address], DERMATOPATHOLOGY REPORT RESULTS DIAGNOSIS: SKIN, RIGHT LATERAL [...] sxt/anc ICD-9 A; ZSD.877 Clerical Data A; 24839 The characteristics of special, immunohistochemical, and immunofluorescence stains and in-situ hybridization tests performed by the [facility] were deemed acceptable in ongoing fiberglass quality technician measures and in compliance with regulations drawn from the Clinical Laboratory Improvement Act he0886 (CLIA '88). Control reactions for all stains performed were deemed adequate and appropriate by a pathologist prior to evaluation of patient tissue. Some diagnoses were rendered with the assistance of laboratory-developed tests utilizing analyte-specific reagents; the performance characteristic of these tests were determined by [facility] and are not cleared or approved by the [place] Food an Drug administration. Laboratory developed test may only be performed in a facility that is certified by the [facility] as a high-complexity laboratory under CLIA '88. These tests are used for clinical purposes and are not investigational. us Notinfile Unknown LAB PATHOLOGY ORDERABLES Final Result from Last 3 Months Insurance [facility] MEDICARE ADVANTAGE IDIA IDPA [facility] [employer] ADV[employer]AGE [facility] CHOICE PLUS IDPA IDPA [facility] [employer] Advance Directives For more information, please contact: [phone] * Full Code (Latest Code Status on File) Date Activated Date Inactivated Comments 09/23/2021 11:07 PM 2021 5:10 PM * Full Code Date Activated Date Inactivated Comments 09/11/2020 2:58 AM 09/16/2020 7:36 PM * Full Code Date Activated Date Inactivated Comments 08/23/2020 9:06 PM 08/30/2020 10:29 PM Care Teams Drupal Programmer Relationship Specialty Start Date End Date Eusebio Nagy MD PCP - General Internal Medicine 12/21/20 To Caballero MD [address] [place] [address] Referring Physician Obstetrics and Gynecology 06/09/21 Jacinto Aguilar MD [address] [facility] [address] [place] [address] Internal Medicine 11/08/22
--- OUTSIDE RECORDS SUMMARY | 2025-03-08 21:12 | XMS_ITS ---
Author Organization [facility] [address] [facility] Address [address] [place] [address] Care Team Providers Care Distillery Miller Name Role Phone Eusebio Nagy MD Primary Care Provider [phone] To Caballero MD Unavailable [phone] Jacinto Aguilar MD Unavailable Active Problems [...] 08/29/2020 Assessment & Plan (08/29/2020 12:37 PM SUBSURFACE AUGMENTEE ELINT OPERATOR): Cont daily replacement GERD (gastroesophageal reflux disease) Assessment & Plan (08/27/2020 7:30 PM SUBSURFACE AUGMENTEE ELINT OPERATOR): Continue Home Pantoprazole 40mg Daily Chronic obstructive pulmonar y disease with acute exacerbation 08/23/2020 Assessment & Plan (08/29/2020 12:35 PM SUBSURFACE AUGMENTEE ELINT OPERATOR): Continue Home Monteleukast 10mg Daily. Cont O2- baseline 3 L, wean as able Start ICA/LABA, LAMA HTN (hypertension) 08/23/2020 Assessment & Plan (08/27/2020 7:31 PM SUBSURFACE AUGMENTEE ELINT OPERATOR): HCTZ 12.5mg Oral Daily, Metoprolol Succinate 100mg [...] 09/13/2020 Assessment & Plan (08/29/2020 12:36 PM SUBSURFACE AUGMENTEE ELINT OPERATOR): Presented w/hypercapnic respiratory failure likely to COPD [...] 021 Assessment & Plan (08/27/2020 7:23 PM SUBSURFACE AUGMENTEE ELINT OPERATOR): Likely toxic-metabolic in etiology in the setting of above respiratory failure/hypercapnia. Baseline she is A&O x3. 08/23 Ammonia 52H, TSH 0.26L, T4 1.18, Lactate 0.5 - hCT NAIA - UDS with benzos and oxycodone. - Continue monitor Iron deficiency anemia 08/27/202009/13 Assessment & Plan (08/29/2020 12:37 PM SUBSURFACE AUGMENTEE ELINT OPERATOR): Presented with Hgb in 8s without explanation, MCV high 70s, iron profile 13, ferritin 28, Tsat 4%, now s/p 1U PRBCs and 1 x Ferrlecit. - Consider age-appropriate screening and iron supplementation on outpatient basis - started fe sulf bid 08/28 Acute hypercapnic respiratory failure 08/23/2020 09/13/2020 Assessment & Plan (08/29/2020 12:33 PM SUBSURFACE AUGMENTEE ELINT OPERATOR): 2/2 copd exacerbation Sp antibiotics and 5 days of prednisone Wean O2 as able Encephalopathy acute 08/23/2020 021 Hyperlipidemia 02/15/2020 09/13/2020 Disorder of lung 05/20/2015 09/13/2020 Thoracic spine fracture 04/2021 Overview (08/23/2020): 3 months ago Assessment & Plan (08/29/2020 12:36 PM SUBSURFACE AUGMENTEE ELINT OPERATOR): Suspect secondary to fall 3 months ago where patient was reported to have sustained spinal fractures. Has been taking opiates for pain at home. 08/23 CT Abd/Pelv Moderate to Severe Compression fractures at T11 and T12. -PT/OT -Vit d replacement -Consider bone health OP evaluation COPD (chronic obstructive pulmonary disease) 09/13/2020
== END 2025-03-08 21:17 | disposition left against medical advice (07) ==
LOC: ANHED 21:11
PROVIDERS: PCP Internal Medicine
DX: R10.9 Unspecified abdominal pain (principal)
CPT/HCPCS: 99199